=== PATIENT | female | born 1955 | race Caucasian/White ===

== ENCOUNTER 2020-09-06 09:03 | Inpatient (IN) | payer MEDICARE, MEDICAID, SELFPAY ==
[2020-09-06] VITALS (31 sets, daily range): BP systolic 100–151; BP diastolic 62–97; PULSE 80–160; RESP 16–28; TEMP 36.1–37.1; O2SAT 88–98; BMI 38.9
--- NOTE | ~2020-09-06 | XR_ITS ---
EXAMINATION: XR chest 2V EXAM DATE: 09/06/2020 09:40 INDICATION: Shortness of breath. History of Left diaphragm and hypertension. TECHNIQUE: Frontal and lateral projections of the chest obtained and reviewed. There is no prior rahul dy for comparison. FINDINGS: Sternotomy wires are present without findings to suggest sternal dehiscence. Heart is uppe r limits of normal in size. There is mild pulmonary vascular congestion. No confluent consolidation, pneumothorax or pleural effusion suspected. There are mild bony degenerative changes. IMPRESSION: Congestive changes. Reviewed, dictated and finalized at location B. ENPLAY WRITER IMPRESSION: Congestive changes.
--- NOTE | ~2020-09-06 | CT_ITS ---
EXAMINATION: CTA chest DATE: 09/08/2020 12:02 INDICATION: Ascending aortic atherosclerosis. TECHNIQUE: Computed tomographic angiography (CTA) of the chest was performed with 100 mL Omnipaque-35 0 intravenous contrast. Automated exposure control and iterative reconstruction technique were employ ed. The dose-length product was 675.84 mGy-cm. Maximum intensity projection 3D-reconstructions of the aorta and other arteries were constructed by the technologist on a separate workstation. COMPARISON: None. FINDINGS: The lungs demonstrated diffuse smooth septal thickening and groundglass opacities, consiste nt with pulmonary edema. There is a 10 mm nodule in basilar left lower lobe. There is mild emphysema. There is a trace right pleural effusion. There is biatrial enlargement of the heart. There are coron chrissie artery calcifications. No pericardial effusion. There is no pulmonary embolus. There is mild medi astinal and bilateral hilar lymphadenopathy. There are changes of coronary artery bypass grafting. Th e thoracic aorta is normal in caliber. There is mild aortic atherosclerosis. There is a small sliding hiatal hernia. There is trace perihepatic ascites. IMPRESSION: 1. Mild aortic atherosclerosis. No aneurysm or dissection. 2. Moderate pulmonary edema with trace right pleural effusion. 3. 10 mm left lower lobe pulmonary nodule suspicious for primary bronchogenic carcinoma. Further eval uation is recommended with either PET/CT now or noncontrast chest CT in 3 months. 4. Mild mediastinal and bilateral hilar lymphadenopathy. 5. Cardiomegaly. Reviewed, dictated and finalized at location A. N II FARMWORKER IMPRESSION: 1. Mild aortic atherosclerosis. No aneurysm or dissection. 2. Moderate pulmonary edema with trace right pleural effusion. 3. 10 mm left lower lobe pulmonary nodule suspicious for primary bronchogenic c arcinoma. Further evaluation is recommended with either PET/CT now or noncontra st chest CT in 3 months. 4. Mild mediastinal and bilateral hilar lymphadenopathy. 5. Cardiomegaly.
--- NOTE | ~2020-09-06 | US_ITS ---
EXAMINATION: US venous doppler [facility] DATE: 09/07/2020 09:45 INDICATION: Lower limb edema. TECHNIQUE: Grayscale ultrasound images without and with compression and Doppler ultrasound images of the bilateral lower extremity veins were obtained. COMPARISON: None. FINDINGS: The visualized portions of right common femoral vein, profunda (deep) femoral vein, femoral vein, pop liteal vein, peroneal veins, posterior tibial veins, and greater saphenous vein outflow are patent. The visualized portions of left common femoral vein, profunda femoral vein, femoral vein, popliteal v ein, peroneal veins, and posterior tibial veins are patent. There is thrombus in left greater sapheno us vein. IMPRESSION: 1. No deep venous thrombosis. 2. Thrombus in left greater saphenous vein, which is a superficial vein. Reviewed, dictated and finalized at location A. MATIC LEHR OPERATOR
--- NOTE | 2020-09-06 09:16 | ECG_ITS ---
Measurements Intervals [place] Rate: 127 P: SD: 0 QRS: 79 QRSD: 88 T: -60 QT: 291 QTc: 424 Interpretive Statements ATRIAL FIBRILLATION WITH RAPID VENTRICULAR RESPONSE NONSPECIFIC ST & T-WAVE ABNORMALITY- DIFFUSE LEADS BASELINE ARTIFACT- I, II, AVR, V4-V5 ABNORMAL ECG Electronically Signed On 09-06-2020 9:24:58 TECHNICAL AGRONOMIST by Gary Mccann D.O.
[2020-09-06 09:25] LABS: Basophils Absolute Auto 0.1 K/mm3 (0.0-0.1); Basophils Percent Auto 0.7 % (0.2-1.2); Eosinophils Absolute Auto 0.1 K/mm3 (0-0.3); Eosinophils Percent Auto 1.3 % (0-4.4); Hematocrit 45.6 % (37.0-47.0); Hemoglobin 14.3 g/dL (12.0-15.0); Immature Granulocyte Absolute 0.03 K/mm3 (0.00-0.031); Immature Granulocyte Percent A 0.3 % (0-0.5); Lymphocytes Absolute Auto 1.81 K/mm3 (0.9-3.2); Lymphocytes Percent Auto 20.2 % (18.3-44.2); Mean Corpuscular HGB Conc 31.4 g/dl (32-36); Mean Corpuscular Volume 98.9 fl (80-100); Mean Platelet Volume 9.4 fl (7.4-10.4); Monocytes Absolute Auto 0.9 K/mm3 (0.1-0.6); Monocytes Percent Auto 9.7 % (2.6-8.5); Neutrophils Absolute Auto 6.1 K/mm3 (1.3-6.7); Neutrophils Percent Auto 67.8 % (45.5-73.1); Platelet Count Result 234 k/mm3 (150-375); Red Blood Count 4.61 M/mm3 (4.2-5.4); Red Cell Distribution Width 15.2 % (11.5-14.5)
[2020-09-06] MEDS: ASPIRIN 81 MG CHEWABLE TABLET 324 MG PO (09:25)
[2020-09-06 09:35] LABS: INR 1.1; Prothrombin Time 15.2 Seconds (11.1-14.7)
[2020-09-06 09:36] LABS: Partial Thromboplastin Time 26.8 SECONDS (22.3-36.8)
[2020-09-06 09:38] LABS: Anion Gap 7 mmol/L (8-16); Blood Urea Nitrogen 17 mg/dL (7-17); Calcium 8.8 mg/dL (8.4-10.2); Carbon Dioxide 27 mmol/L (22-30); Chloride 103 mmol/L (98-107); Estimated CRCL calculation 109 ml/min; Estimated Glomerular Filt Rate > 60; Glucose 132 mg/dL (65-105); Potassium 4.6 mmol/L (3.4-5.0); Sodium 137 mmol/L (137-145)
[2020-09-06 09:50] LABS: Troponin I < 0.012 ng/mL (0.000-0.034)
[2020-09-06 10:46] LABS: Alanine Aminotransferase 22 U/L (4-35); Albumin Level 4.1 g/dL (3.5-5.1); Alkaline Phosphatase 128 U/L (38-126); Aspartate Amino Transferase 50 U/L (14-36); Bilirubin,Total 1.5 mg/dL (0.2-1.3); Lipase 49 U/L (23-300)
[2020-09-06 10:49] LABS: NT Pro B Type Natriuretic Pept 1670 PG/ML (5-100)
[2020-09-06] MEDS: dilTIAZem HCl INJ 25 MG/5 ML VIAL 10 MG IV PUSH (10:55)
[2020-09-06 11:12] LABS: Add Urine Microscopic? YES; Appearance Urine Clear (Clear); Bacteria Urine Trace /hpf; Bilirubin Urine Negative (Negative); Blood Urine Negative (Negative); Color Urine Yellow (Yellow); Glucose Urine UA 3+ mg/dL (Negative); Ketones Urine Negative (Negative); Leukocyte Esterase Ur Negative LEU/UL (Negative); Mucus Urine Rare /lpf; Nitrate Urine Positive (Negative); Protein Urine Negative (Negative); RBC Urine 0-2 /hpf (0-2); Specific Grav Ur 1.021 (1.001-1.035); Squamous Epithelial Cell Urine Rare /hpf (Few); WBC Urine 0-3 /hpf
[2020-09-06 11:26] LABS: Amphetamine Screen Urine Negative (Negative); Barbiturate Screen Urine Negative (Negative); Benzodiazepines Screen Urine Negative (Negative); Cannabinoid Screen Urine Positive (Negative); Cocaine Screen Urine Negative (Negative); Methadone Screen Urine Negative (Negative); Opiate Screen Urine Negative (Negative); Phencyclidine Screen Urine Negative (Negative)
--- NOTE | 2020-09-06 12:50 | ED.GENADULT ---
HPI - General Adult General Chief complaint: Shortness of Breath/Dyspnea <WILNER Caballero Last Filed: 09/06/20 12:57> Stated complaint: shortness of breath <WILNER Caballero Last Filed: 09/06/20 12:57> Time Seen by Provider: 09/06/20 09:15 <WILNER Caballero Last Filed: 09/06/20 12:57> Source: patient <WILNER Caballero Last Filed: 09/06/20 12:57> Mode of arrival: ambulatory <WILNER Caballero Last Filed: 09/06/20 12:57> Limitations: no limitations <WILNER Caballero Last Filed: 09/06/20 12:57> History of Present Illness HPI narrative: Patient is a 65-year-old female who presents to emergency department for evaluation of shortness of breath with minimal activity that is worsened over the last several weeks quit taking her Lasix patient is a very poor historian as to her medical history notes history of heart surgery hypertension and being on a diuretic as well as diabetes patient has also not been checking her sugars due to not having the device to do so at this time patient denies any pain on arrival patient presented today secondary to worsening dyspnea denies URI symptoms <WILNER Caballero Last Filed: 09/06/20 12:57> Related Data Home medications: Home Medications Medication Instructions Recorded Confirmed levothyroxine [Euthyrox] 09/06/20 losartan 09/06/20 metformin mg 09/06/20 metoprolol tartrate 09/06/20 paroxetine HCl mg PO 09/06/20 simvastatin mg 09/06/20 <WILNER Caballero Last Filed: 09/06/20 12:57> Allergies/adverse reactions: Allergies Allergy/AdvReac Type Severity Reaction Status Date / Time cefazolin Allergy Intermediate wheezing, Verified 09/06/20 09:17 rash <WILNER Caballero Last Filed: 09/06/20 12:57> Review of Systems Review of Systems: All systems reviewed & are unremarkable except as noted in HPI and below <WILNER Caballero Last Filed: 09/06/20 12:57> [facility] Past Medical History Medical History: Medical History (Updated 09/06/20 @ 12:57 by Rob Dimas PA-C) Atrial fibrillation Diabetes mellitus Hypertension Obesity <Rob Dimas PA-C - Last Filed: 09/06/20 12:57> Surgical History Surgical History: Surgical History (Updated 09/06/20 @ 12:54 by Rob Dimas PA-C) H/O heart surgery <Rob Dimas PA-C - Last Filed: 09/06/20 12:57> Social History Social History: Social History (Updated 09/06/20 @ 12:54 by Rob Dimas PA-C) Smoking status: Never smoker Substance use type: marijuana <Rob Dimas PA-C - Last Filed: 09/06/20 12:57> Exam Narrative: Exam Narrative: GENERAL: Ill-appearing, obese, and in no acute distress. HEAD: Normocephalic, atraumatic. EYES: PERRLA and EOMI. ENT: Nares clear, no rhinorrhea or epistaxis. Mucous membranes moist. NECK: Supple. No adenopathy or masses. No carotid bruits or JVD CHEST: Diminished on auscultation. No respiratory distress. No wheezes rales or rhonchi HEART: Irregularly irregular rate and rhythm. No murmur heard. Normal peripheral pulses. ABDOMEN: Soft, nontender, nondistended EXTREMITIES: Normal range of motion. 2+ edema in the lower extremities SKIN: Warm, dry, no rash. Patient with wounds to the arm and mid back consistent with scratching and picking NEURO: No focal deficits. Alert and oriented x3. Cranial nerves II through XII grossly intact PSYCH: Normal mood and affect. <Rob Dimas PA-C - Last Filed: 09/06/20 12:57> Course Course Emergency Course: Patient given Cardizem bolus and placed on the drip with improvement of heart rate will be placed in hospital for diuresis and further evaluation of her A. fib with RVR patient hemodynamically stable ABCs and vital signs intact and stable at this time patient in no pain patient agrees with the plan is aware of case findings treatment plan and diagnosis <Raymon Caballero
[2020-09-06 12:57] LABS: Troponin I < 0.012 ng/mL (0.000-0.034)
[2020-09-06] MEDS: FUROSEMIDE INJ 40 MG/4 ML VIAL 20 MG IV PUSH (13:16)
[2020-09-06 14:25] LABS: Cholesterol 106 mg/dL (0-200); HDL Direct 30 mg/dL; Triglycerides 107 mg/dL (<150)
[2020-09-06 14:36] LABS: LDL Cholesterol Direct 53 mg/dL
--- NOTE | 2020-09-06 15:30 | ADMGEN ---
This patient, Tressa Myers, was admitted to IMU Room 206-. Patient/family oriented to hospital policies and general routines including ID bracelet, bed and alarms, visiting hours, pain management, procedures, bathroom and other care routines, personal items, smoking policy, room service/diet, and visiting hours. Information on how to activate the Rapid Response Team has been discussed. Patient/Family are encouraged to report perceived risks to care and to ask questions if they do not understand what they are told or what they should do.
[2020-09-06 16:15] LABS: Troponin I < 0.012 ng/mL (0.000-0.034)
--- NOTE | 2020-09-06 16:30 | PM.IMHP ---
H&P: HPI History of Present Illness Date/Time: 09/06/20 16:30 Chief Complaint: Shortness of breath. Narrative: This is a 65-year-old female with history of coronary artery disease status post 1 vessel CABG in 2013, hypertension, hyperlipidemia, hypothyroidism, and type 2 diabetes mellitus who presented to the emergency department earlier today via private vehicle from home for evaluation of shortness of breath. She has felt short of breath for several weeks, mainly with exertion however more recently she has felt short of breath ?all of the time.? In fact last night she was unable to lie flat in bed due to shortness of breath and had to get up and sleep in her recliner. She had not noticed edema of the lower legs however that is present on exam today. Additionally she has had some mild dizziness with position changes however has no other significant complaints. On arrival to the emergency department she was found to be in atrial fibrillation with rapid ventricular response and with further questioning she believes that she was in AFib briefly post CABG. Aside from the shortness of breath she has no symptoms of such and specifically denies chest discomfort, racing heart, palpitations, and fluttering. She is concerned that she has sleep apnea as she does not feel well rested upon waking and falls asleep easily throughout the day if she is sitting down watching television. A friend had previously told her that she snores heavily and that at times it appears she stops breathing at night. She is on levothyroxine for hypothyroidism but it does not sound as though she has had her TSH checked for quite some time. She consumes 2 to 3 cups of coffee per day. She has not had exertional chest pain, nausea, or sweats. Review of Systems Review of Systems: Narrative: Twelve systems were reviewed with pertinent positives and negatives as per HPI. No fever, chills, or sweats. No recent cold or flu symptoms. She denies exposure to those positive for COVID-19. No cough. No nausea, vomiting, or diarrhea. No history of venous thromboembolism. She has frequent pruritus and has excoriations throughout her extremities and low back; apparently this is a longstanding issue and is not new. She has no history of eczema or the like. Except as documented, all other systems were reviewed and are negative. [facility] Past Medical History Medical History (Updated 09/06/20 @ 22:19 by Kaia Hodgson PA-C) Carotid artery disease Coronary artery disease Depression with anxiety Diaphragmatic paralysis Left side. Hyperlipidemia Hypertension Hypothyroidism Type 2 diabetes mellitus Surgical History Surgical History (Updated 09/06/20 @ 22:19 by Kaia Hodgson PA-C) History of cardiac catheterization History of coronary artery bypass graft (~02/2014) History of left common carotid artery stent placement History of right-sided carotid endarterectomy Family History Family History (Updated 09/06/20 @ 22:20 by Kaia Hodgson PA-C) Mother Heart disease Mother of an acute NV at age 42. Father Cancer Sibling Brain tumor Social History Social History (Updated 09/06/20 @ 22:20 by Kaia Hodgson PA-C) Social History: The patient lives in [place]. 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 Former smoker. Endorses marijuana use. No alcohol abuse. She designates her son, Cristhian Barreto, as her surrogate decision maker and she wishes to be a full code. Spiritual care concerns: No Meds Home Medications and Allergies Home Medications Medication Instructions Recorded Confirmed Type clopidogrel 75 mg PO DAILY 09/06/20 09/06/20 History empagliflozin [Jardiance] 20 mg PO DAILY 09/06/20 09/06/20 History levothyroxine [Euthyrox] 75 mcg PO DAILY 09/06/20 09/06/20 History losartan 50 mg PO DAILY 09/06/20 09/06/20 History metformin 1,000 mg PO BID 09/06/20 09/06/20 History metoprolol tart
[2020-09-06 17:29] LABS: Hemoglobin A1C 7.2 % (<5.7)
[2020-09-06 21:04] LABS: Glucose Point of Care 143 (65-105)
[2020-09-06] MEDS: METOPROLOL TARTRATE 25 MG TABLET PO (21:11)
[2020-09-06] MEDS: ENOXAPARIN 120 MG/0.8 ML SYRINGE 105 MG SUB-Q (21:12)
[2020-09-07] VITALS (26 sets, daily range): BP systolic 107–135; BP diastolic 68–86; PULSE 62–102; RESP 18–24; TEMP 35.7–36.6; O2SAT 90–98
--- NOTE | 2020-09-07 06:00 | ECHO_ITS ---
Patient Info Name: Tressa Myers Age: 65 years : 1955 Gender: Female Ht: 65 in Wt: 230 lbs BSA: 2.24 m2 HR: 88 bpm BP: 114 / 62 mmHg Heart Rhythm: Atrial Fibrillation Technical Quality: Good Exam Date: 09/07/2020 10:02 AM Exam Location: [facility] Patient Status: Inpatient Admit Date: 09/07/2020 Staff Ordering Physician: Rob Dimas PA-C Oven Baker: Sushant Olvera RDCS, RT Attending Provider: Anupam Abernathy PA-C Referring Physician: Wing BERNAL; Exam Type: CA echo dop color flow w con Study Info Indications I48.0 - Paroxysmal atrial fibrillation Complete two-dimensional, color flow and Doppler transthoracic echocardiogram is performed with contrast to opacify the left ventricle and to improve the deliniation of the left ventricle endocardial borders. Summary 1. Left ventricular systolic function is moderately reduced, estimated at 35%. 2. Left ventricular septal wall motion is abnormal with septal motion related to a post-operative state. 3. Hypokinesis of the apical lateral and mid inferolateral woodward. 4. Right ventricular chamber dimension is moderately enlarged. 5. Right ventricular systolic function is moderately reduced. 6. Left atrial chamber dimension is moderately enlarged. 7. Right atrial chamber dimension is severely enlarged. 8. There is no aortic valve stenosis. 9. There is trace aortic valve regurgitation. 10. There is moderate aortic valve calcification of the commissures between the right and noncoronary cusps with mild calcification between the non and left coronary cusps. Mildly restricted motion of the right cusp. 11. The mitral valve annulus is severely calcified. 12. There is mild tricuspid valve regurgitation. 13. Mild pulmonary hypertension, estimated pulmonary arterial systolic pressure is 39 mmHg. 14. Dilated inferior vena cava with no collapse upon inspiration consistent with significantly elevated right atrial pressure, 15 mmHg. Left Ventricle Left ventricular chamber dimension is normal. Left ventricular systolic function is moderately reduced, estimated at 35%. There is no increased left ventricular wall thickness. Left ventricular septal wall motion is abnormal with septal motion related to a post-operative state. The left ventricular diastolic function is indeterminate. Hypokinesis of the apical lateral and mid inferolateral woodward. Right Ventricle Right ventricular chamber dimension is moderately enlarged. Right ventricular systolic function is moderately reduced. Left Atria Left atrial chamber dimension is moderately enlarged. Right Atria Right atrial chamber dimension is severely enlarged. Aortic Valve The aortic valve is trileaflet. There is no aortic valve stenosis. There is trace aortic valve regurgitation. There is moderate aortic valve calcification of the commissures between the right and noncoronary cusps with mild calcification between the non and left coronary cusps. Mildly restricted motion of the right cusp. Pulmonic Valve The pulmonic valve is not well visualized. There is trace pulmonic regurgitation. Mitral Valve The mitral valve has thickened leaflets. There is mild mitral valve regurgitation. The mitral valve annulus is severely calcified. Tricuspid Valve The tricuspid valve leaflets are normal. There is mild tricuspid valve regurgitation. Mild pulmonary hypertension, estimated pulmonary arterial systolic pressure is 39 mmHg. Pericardium/Pleural The pericardium appears normal.
[2020-09-07] MEDS: LEVOTHYROXINE SODIUM 75 MCG TABLET PO (06:34)
[2020-09-07 07:35] LABS: Alanine Aminotransferase 18 U/L (4-35); Albumin Level 3.6 g/dL (3.5-5.1); Alkaline Phosphatase 101 U/L (38-126); Anion Gap 4 mmol/L (8-16); Aspartate Amino Transferase 34 U/L (14-36); Bilirubin,Total 1.7 mg/dL (0.2-1.3); Blood Urea Nitrogen 16 mg/dL (7-17); Calcium 8.6 mg/dL (8.4-10.2); Carbon Dioxide 32 mmol/L (22-30); Chloride 102 mmol/L (98-107); Estimated CRCL calculation 69 ml/min; Estimated Glomerular Filt Rate > 60; Glucose 141 mg/dL (65-105); Magnesium 1.8 mg/dL (1.6-2.3); Potassium 5.2 mmol/L (3.4-5.0); Sodium 138 mmol/L (137-145)
[2020-09-07 08:30] LABS: Glucose Point of Care 127 (65-105)
--- NOTE | 2020-09-07 08:56 | P.PNIM_ITS ---
Progress Note: A&P Assessment and Plan (1) Atrial fibrillation with rapid ventricular response: Code(s): I48.91 - Unspecified atrial fibrillation Status: Acute Assessment and Plan: The patient has been started on a Cardizem drip for atrial fibrillation with rapid ventricular response. She her heart rate has significantly improved. Apparently she had a history of AFib post CABG many years ago but not since that time. SOB has resolved today, but still requiring 1L O2 * Cardiology consulted and appreciate input * Continue Cardizem drip for now and await further input from Cardiology * Continue home metoprolol; consider increasing dose * Lovenox 1 mg/kg BID for now; will consider fruther a/c (2) Pulmonary vascular congestion: Code(s): R09.89 - Other specified symptoms and signs involving the circulatory and respi ratory systems Status: Acute Assessment and Plan: Evident on CXR. Started on Lasix 20 mg IV BID * Continue Lasix for now * Wean O2 as tolerated * Echo to be done today * Monitor (3) Hypoxia: Code(s): R09.02 - Hypoxemia Status: Acute Assessment and Plan: Likely due to above. She is now on 1L O2 * Wean O2 as tolerated * Monitor * PE felt to be less likely, although Venous Doppler B/l LE to rule out DVT (4) Coronary artery disease: Code(s): I25.10 - Atherosclerotic heart disease of [place] coronary artery without angina pectoris Status: Acute Assessment and Plan: troponin negative x 3. Denies chest pain palpitations * Monitor * continue home meds (5) Diaphragmatic paralysis: Code(s): J98.6 - Disorders of diaphragm Status: Acute (6) Type 2 diabetes mellitus: Code(s): E11.9 - Type 2 diabetes mellitus without complications Status: Acute Assessment and Plan: A1c 7.2 * Metformin held * Continue other home meds if formulary * Accuchecks ACHS, hypoglycemia protocol, correctional insulin, diabetic diet (7) Hyperlipidemia: Code(s): E78.5 - Hyperlipidemia, unspecified Status: Acute Assessment and Plan: Lipid panel grossly unremarkable * continue home meds (8) Hypertension: Code(s): I10 - Essential (primary) hypertension Status: Acute Assessment and Plan: BP 110s sys * Continue home meds * monitor with diuresis (9) Hypothyroidism: Code(s): E03.9 - Hypothyroidism, unspecified Status: Acute Assessment and Plan: TSH WNL * Continue home levothyroxine (10) Suspected sleep apnea: Code(s): R29.818 - Other symptoms and signs involving the nervous system Status: Acute Assessment and Plan: Apnea Link during stay suggestive of sleep apnea * Recommended follow up with PCP for possible outpatient sleep study for further evaluation * CPAP during hospital stay Additional Plan Reviewed telemetry as noted above; continue this given A. fib with RVR Subjective Date/time seen: 09/07/20 08:56 Interval history: Patient is a history of coronary artery disease status post 1 vessel CABG in 2013, hypertension, hyperlipidemia, hypothyroidism, and type 2 diabetes mellitus who is seen in follow up for A. Fib with RVR and acute re
--- NOTE | 2020-09-07 08:56 | PM.IMPN ---
Progress Note: A&P Assessment and Plan (1) Atrial fibrillation with rapid ventricular response: Code(s): I48.91 - Unspecified atrial fibrillation Status: Acute Assessment and Plan: The patient has been started on a Cardizem drip for atrial fibrillation with rapid ventricular response. She her heart rate has significantly improved. Apparently she had a history of AFib post CABG many years ago but not since that time. SOB has resolved today, but still requiring 1L O2 Cardiology consulted and appreciate input Continue Cardizem drip for now and await further input from Cardiology Continue home metoprolol; consider increasing dose Lovenox 1 mg/kg BID for now; will consider fruther a/c (2) Pulmonary vascular congestion: Code(s): R09.89 - Other specified symptoms and signs involving the circulatory and respiratory systems Status: Acute Assessment and Plan: Evident on CXR. Started on Lasix 20 mg IV BID Continue Lasix for now Wean O2 as tolerated Echo to be done today Monitor (3) Hypoxia: Code(s): R09.02 - Hypoxemia Status: Acute Assessment and Plan: Likely due to above. She is now on 1L O2 Wean O2 as tolerated Monitor PE felt to be less likely, although Venous Doppler B/l LE to rule out DVT (4) Coronary artery disease: Code(s): I25.10 - Atherosclerotic heart disease of [place] coronary artery without angina pectoris Status: Acute Assessment and Plan: troponin negative x 3. Denies chest pain palpitations Monitor continue home meds (5) Diaphragmatic paralysis: Code(s): J98.6 - Disorders of diaphragm Status: Acute (6) Type 2 diabetes mellitus: Code(s): E11.9 - Type 2 diabetes mellitus without complications Status: Acute Assessment and Plan: A1c 7.2 Metformin held Continue other home meds if formulary Accuchecks ACHS, hypoglycemia protocol, correctional insulin, diabetic diet (7) Hyperlipidemia: Code(s): E78.5 - Hyperlipidemia, unspecified Status: Acute Assessment and Plan: Lipid panel grossly unremarkable continue home meds (8) Hypertension: Code(s): I10 - Essential (primary) hypertension Status: Acute Assessment and Plan: BP 110s sys Continue home meds monitor with diuresis (9) Hypothyroidism: Code(s): E03.9 - Hypothyroidism, unspecified Status: Acute Assessment and Plan: TSH WNL Continue home levothyroxine (10) Suspected sleep apnea: Code(s): R29.818 - Other symptoms and signs involving the nervous system Status: Acute Assessment and Plan: Apnea Link during stay suggestive of sleep apnea Recommended follow up with PCP for possible outpatient sleep study for further evaluation CPAP during hospital stay Additional Plan Reviewed telemetry as noted above; continue this given A. fib with RVR Subjective Date/time seen: 09/07/20 08:56 Interval history: Patient is a history of coronary artery disease status post 1 vessel CABG in 2013, hypertension, hyperlipidemia, hypothyroidism, and type 2 diabetes mellitus who is seen in follow up for A. Fib with RVR and acute respiratory failure with hypoxia likely due to pulmonary vascular congestion. Patient states she feels 100% better today. She is not short of breath, and in fact, she is lying supine at time of visit and breathing comfortably like this. She notes no change in her LE swelling. She notes she is having good urine output from the Lasix. She has no other complaints. Denies f/c/s, dizziness, lightheadedness, cp/palpitations, n/v/d/c, abd
[2020-09-07] MEDS: FUROSEMIDE INJ 40 MG/4 ML VIAL 20 MG IV PUSH ×2 (10:20→18:32)
[2020-09-07] MEDS: PARoxetine 20 MG TABLET 40 MG PO (10:20)
[2020-09-07] MEDS: CLOPIDOGREL BISULFATE 75 MG TABLET PO (10:21)
[2020-09-07] MEDS: LOSARTAN POTASSIUM 50 MG TABLET PO (10:21)
[2020-09-07] MEDS: SIMVASTATIN 20 MG TABLET 40 MG PO (10:21)
[2020-09-07] MEDS: ENOXAPARIN 120 MG/0.8 ML SYRINGE 105 MG SUB-Q (10:21)
[2020-09-07] MEDS: PERFLUTREN LIPID MICROSPHERES 1.5 ML VIAL DILUTED TO 10 ML TOTAL VOLUME IV PUSH (10:26)
[2020-09-07] MEDS: METOPROLOL TARTRATE 50 MG TAB PO ×2 (11:06→19:50)
[2020-09-07 12:29] LABS: Glucose Point of Care 160 (65-105)
--- NOTE | 2020-09-07 13:38 | PM.CNCAR ---
Assessment and Plan Assessment and plan (1) Atrial fibrillation with rapid ventricular response: Code(s): I48.91 - Unspecified atrial fibrillation Status: Acute Assessment and Plan: Persistent, likely present for several weeks prior to admission. heart rate better controlled on diltiazem. Given LV dysfunction on echocardiogram concern for tachycardia induced cardiomyopathy versus progressive underlying CAD. Serial troponins negative without evidence of acute myocardial infarction or ischemia. discussed embolic stroke risk versus bleeding risk and the need for systemic anticoagulation given CHADS2 Vasc score 7. discussed the pathophysiology of atrial fibrillation including management strategies with medications and/or electrical cardioversion. Given LV dysfunction I would favor rhythm control strategy initially with RANDALL guided cardioversion in attempt restore sinus rhythm. Patient has been given enoxaparin at which transition to Eliquis 5 mg b.i.d.. Care coordination is indicates she does not have medication coverage so will give her 1 month free at discharge and transition to warfarin as an outpatient through our office. Patient is indicated desire to transfer her cardiovascular care to our practice. We discussed the risks, benefits, and alternatives to rhythm versus heart rate control strategy, RANDALL guided cardioversion premedications. All questions answered to her satisfaction. Patient in agreement to proceed with plan of care as outlined above. If patient euvolemic, tolerated procedure well maintain sinus rhythm without additional needs consideration may be given for discharge home tomorrow afternoon. I would recommend then follow up as an outpatient 1 week for EKG and in the office within 2 weeks. NPO after midnight for RANDALL guided cardioversion with Anesthesiology at 8:00 a.m. tomorrow. Patient must receive Eliquis 5 mg this evening and tomorrow morning prior to procedure. (2) Congestive heart failure: Code(s): I50.9 - Heart failure, unspecified Status: Acute Assessment and Plan: Acute decompensated systolic heart failure, EF 35% paradoxical septal wall motion possibly related to tachycardia induced cardiomyopathy versus ischemic. Will need to review prior records. Plan to transition to Toprol XL 50 mg daily tomorrow morning. transition to oral Lasix 40 mg daily prior to discharge. Accurate input and output, daily weights. CHF counseling performed. (3) Cardiomyopathy: Code(s): I42.9 - Cardiomyopathy, unspecified Status: Acute Assessment and Plan: As above, new diagnosis Optimize medical management as tolerated. Continue losartan. Ischemic evaluation in the near future depending on patient's course and response to therapy. Plan for noninvasive, however, will need review prior records with recommendations to follow. (4) Coronary artery disease: Code(s): I25.10 - Atherosclerotic heart disease of [place] coronary artery without angina pectoris Status: Acute Assessment and Plan: serial troponins negative x3. Patient has been maintained on long-term dual antiplatelet therapy but apparently has not followed up on a consistent basis for the past couple of years. Given the high risk for bleeding with dual antiplatelet therapy and systemic anticoagulation will discontinue clopidogrel, continue aspirin 81 mg daily in addition to anticoagulation. We discussed this at length. (5) Hypertension: Code(s): I10 - Essential (primary) hypertension Status: Acute Assessment and Plan: Fair control at this time. Continue to monitor. (6) Type 2 diabetes mellitus: Code(s): E11.9 - Type 2 diabetes mellitus without complications Status: Acute Assessment and Plan: Per primary service. (7) AMOR (obstructive sleep apnea): Code(s): G47.33 - Obstructive sleep apnea (adult) (pediatric) Status: Acute Assessmen
--- NOTE | 2020-09-07 14:19 | WPDANESEPP ---
Anes - Eval Pre Procedure Procedure: RANDALL/cardioversion Date/Time: 09/07/20 14:19 Surgeon: Maya Pre Op Diagnosis: afib rvr/chf/hypoxemia Patient Data Age: 65 Gender: F Height: 1.65 m Weight: 94.8 kg Last Vital Signs Temp 35.8 C L 09/07/20 13:09 Pulse 101 H 09/07/20 13:09 Resp 24 H 09/07/20 13:09 BP 135/86 09/07/20 13:09 Pulse Ox 96 09/07/20 13:09 Allergies Allergy/AdvReac Type Severity Reaction Status Date / Time cefazolin Allergy Intermediate wheezing, Verified 09/06/20 14:25 rash Home Medications Medication Instructions Recorded Confirmed Type clopidogrel 75 mg PO DAILY 09/06/20 09/06/20 History empagliflozin [Jardiance] 20 mg PO DAILY 09/06/20 09/06/20 History levothyroxine [Euthyrox] 75 mcg PO DAILY 09/06/20 09/06/20 History losartan 50 mg PO DAILY 09/06/20 09/06/20 History metformin 1,000 mg PO BID 09/06/20 09/06/20 History metoprolol tartrate 25 mg PO BID 09/06/20 09/06/20 History paroxetine HCl 40 mg PO DAILY 09/06/20 09/06/20 History simvastatin 40 mg PO DAILY 09/06/20 09/06/20 History sitagliptin [Januvia] 100 mg PO DAILY 09/06/20 09/06/20 History Laboratory Tests 09/06/20 09/06/20 09/06/20 12:57 15:45 16:45 Sodium Potassium Chloride Carbon Dioxide Anion Gap BUN Creatinine Estim Creat Clear Calc Estimated GFR Glucose POC Capillary Glucose Hemoglobin A1c Calcium Magnesium Total Bilirubin AST ALT Alkaline Phosphatase Troponin I < 0.012 ng/mL ng/mL (0.000-0.034) Total Protein Albumin Triglycerides 107 mg/dL mg/dL (<150) Cholesterol 106 mg/dL mg/dL (0-200) LDL Cholesterol Direct 53 mg/dL mg/dL HDL Direct 30 mg/dL mg/dL TSH (Reflex) 2.560 uIU/mL uIU/mL (0.465-4.68) 09/06/20 09/06/20 09/07/20 16:45 21:02 06:39 Sodium 138 mmol/L mmol/L (137-145) Potassium 5.2 mmol/L H mmol/L (3.4-5.0) Chloride 102 mmol/L mmol/L (98-107) Carbon Dioxide 32 mmol/L H mmol/L (22-30) Anion Gap 4 mmol/L L mmol/L (8-16) BUN 16 mg/dL mg/dL (7-17) Creatinine 0.80 mg/dL mg/dL (0.7-1.0) Estim Creat Clear Calc 69 ml/min ml/min Estimated GFR > 60 (59 - ) Glucose 141 mg/dL H mg/dL (65-105) POC Capillary Glucose 143 mg/dl H mg/dl (65-105) Hemoglobin A1c 7.2 % H % (<5.7) Calcium 8.6 mg/dL mg/dL (8.4-10.2) Magnesium 1.8 mg/dL mg/dL (1.6-2.3) Total Bilirubin 1.7 mg/dL H mg/dL (0.2-1.3) AST 34 U/L U/L (14-36) ALT 18 U/L U/L (4-35) Alkaline Phosphatase 101 U/L U/L (38-126) Troponin I Total Protein 7.0 g/dL g/dL (6.3-8.2) Albumin 3.6 g/dL g/dL (3.5-5.1) Triglycerides Cholesterol LDL Cholesterol Direct HDL Direct TSH (Reflex) 09/07/20 09/07/20 08:26 12:07 Sodium Potassium Chloride Carbon Dioxide Anion Gap BUN Creatinine Estim Creat Clear Calc Estimated GFR Glucose POC Capillary Glucose 127 mg/dl H mg/dl 160 mg/dl H mg/dl (65-105) (65-105) Hemoglobin A1c Calcium Magnesium Total Bilirubin AST ALT Alkaline Phosphatase Troponin I Total Protein Albumin Triglycerides Cholesterol LDL Cholesterol Direct HDL Direct TSH (Reflex) ECG: afib Patient hx anesthesia problems: none Family hx anesthesia problems: none PMFSH Past Medical History Medical Hi
[2020-09-07 16:57] LABS: Glucose Point of Care 148 (65-105)
[2020-09-07] MEDS: APIXABAN 5 MG TABLET PO (19:50)
[2020-09-07 19:58] LABS: Glucose Point of Care 165 (65-105)
[2020-09-08] VITALS (18 sets, daily range): BP systolic 105–143; BP diastolic 55–95; PULSE 71–113; RESP 16–27; TEMP 35.8–36.4; O2SAT 93–99
[2020-09-08 05:26] LABS: Alanine Aminotransferase 17 U/L (4-35); Albumin Level 3.5 g/dL (3.5-5.1); Alkaline Phosphatase 103 U/L (38-126); Anion Gap 3 mmol/L (8-16); Aspartate Amino Transferase 31 U/L (14-36); Bilirubin,Total 1.6 mg/dL (0.2-1.3); Blood Urea Nitrogen 17 mg/dL (7-17); Calcium 8.5 mg/dL (8.4-10.2); Carbon Dioxide 36 mmol/L (22-30); Chloride 98 mmol/L (98-107); Estimated CRCL calculation 90 ml/min; Estimated Glomerular Filt Rate > 60; Glucose 129 mg/dL (65-105); Magnesium 1.7 mg/dL (1.6-2.3); Potassium 3.7 mmol/L (3.4-5.0); Sodium 137 mmol/L (137-145)
[2020-09-08] MEDS: LEVOTHYROXINE SODIUM 75 MCG TABLET PO (06:53)
[2020-09-08] MEDS: APIXABAN 5 MG TABLET PO ×2 (06:53→20:42)
--- NOTE | 2020-09-08 08:03 | WPDANESEFPP ---
Anes - Eval Final PreProcedure Day of Procedure 09/08/20 08:03 Patient weight: obese Heart: irregular rhythm Lungs: clear to auscultation Airway: Mallampati scale class II Neurological: alert and oriented Last oral intake: >/= 8 hours ASA classification: IV Emergent: no Anesthetic plan: proceed Anesthesia type and monitoring: general and standard monitoring Informed Consent: The patient's anesthetic plan and its attendant risks and benefits were discussed with the patient/family/POA. Questions were solicited and answers provided to the satisfaction of the patient/family/POA.
--- NOTE | 2020-09-08 08:34 | WPDTEECHO ---
RANDALL TransEsophageal Echocardiogram Date of procedure: 09/08/20 Procedure Type: Transesophageal echocardiogram with possible elective electrical cardioversion Diagnosis: Refractory atrial fibrillation with rapid ventricular response Indications: Refractory atrial fibrillation with rapid ventricular response Image Quality: Good Findings: Brief history present illness: Patient is a pleasant 65-year-old white female with history of 1 vessel CABG 2013, hypertension, diabetes mellitus, dyslipidemia, AMOR, reported history of CVA/TIA, history of remote tobacco abuse, marijuana use who presented with progressive shortness of breath found to be in atrial fibrillation with rapid ventricular response and decompensated heart failure with new diagnosis LV systolic dysfunction EF 35% referred for transesophageal echocardiogram-guided elective electrical cardioversion in attempt to restore sinus rhythm. Procedure in detail: After verbal and written informed consent was obtained the patient risks, benefits, and alternatives explained in detail the patient agreed to proceed with the plan of care as outlined above. Patient was evaluated at bedside in the PACU procedure room. On examination, neck was supple with normal range of motion, no restrictions to opening of the oral cavity, jaw angle and posterior hypopharynx was clear. Lungs were clear to auscultation. Patient was placed in appropriate 30 to 45 degree angle in a supine, slight left lateral decubitus position. Patient was monitored throughout the study with telemetry, oxygen saturation, end-tidal CO2 monitoring, blood pressure, heart rate, and respirations. Anterior and posterior defibrillator pads placed in the appropriate positions. The posterior hypopharynx was then locally anesthetized using repeated administration of Hurricaine spray. After local anesthetic of the posterior hypopharynx was achieved and the oral bite block placed, sedation was administered by Anesthesiology.. Through the oral bite block, the transesophageal echocardiogram probe was advanced into the posterior hypopharynx and into the esophagus easily and without complication. Multiple, multiplanar echocardiographic images were obtained in multiple standard re-projections. Pulsed wave, continuous-wave, and color-flow Doppler were utilized in conjunction with this study. At the conclusion of the study, the transesophageal echocardiogram probe was removed easily and without complication. Patient tolerated the procedure well without difficulty. Patient was in atrial fibrillation throughout the study. Moderate Sedation/Anesthesia administration: Patient denied previous intolerance or complications with anesthesia/sedation. Please see anesthesiology documentation for sedation protocols and administration. There were no other issues or complications and patient tolerated the procedure well and sedation protocol well and I was present for the entirety. Findings: Left ventricular size was within normal limits, mild left ventricular hypertrophy and moderate LV dysfunction ejection fraction 35% with paradoxical septal wall motion abnormality. Mild right ventricular enlargement and hypokinesis identified. Moderate to severe left atrial enlargement with moderate spontaneous contrast. Severe right atrial enlargement. Interatrial septum thin and hypermobile with color-flow evidence of a left to right shunt and right to left shunt with injection of agitated saline with bubbles crossing within 3-5 beats consistent with small atrial septal defect. Mild thickening of mitral valve leaflets, moderate mitral annular calcification with [id number] mitral regurgitation identified. Tricuspid valve anatomically normal with normal leaflet excursion with moderate to severe regurgitation identified. No mobile elements identified. Aortic valve was anatomically normal 3 leaflet structure with mild restriction of the right coronary cusp and commissural calcification. Trivial
--- NOTE | 2020-09-08 11:37 | PM.IMPN ---
Progress Note: A&P Assessment and Plan (1) Atrial fibrillation with rapid ventricular response: Code(s): I48.91 - Unspecified atrial fibrillation Status: Acute Assessment and Plan: The patient has been started on a Cardizem drip for atrial fibrillation with rapid ventricular response. She her heart rate has significantly improved. Apparently she had a history of A Fib post CABG many years ago but not since that time. SOB has since resolved, but still requiring 1.5L O2 today (was on 1L prior to RANDALL). RANDALL today, 09/08, demonstrated: Moderate to severe left atrial enlargement with spontaneous contrast. Severe right atrial enlargement. Large loose organized thrombus within the left atrial appendage with low appendage velocities Small atrial septal defect Moderate to severe tricuspid regurgitation with [id number] mitral regurgitation. Elective cardioversion deferred secondary to left atrial appendage thrombus in the interest of patient safety. Large intramural plaque versus thrombus ascending aorta without obvious evidence of dissection. Cardiology following and appreciate input Patient to have CTA chest today to assess ascending aorta intramural plaque vs thrombus Plans for continuing systemic anticoagulation, initially with Eliquis Continue metoprolol per cardiology recommendations Await further recommendations from Cardiology (2) Pulmonary vascular congestion: Code(s): R09.89 - Other specified symptoms and signs involving the circulatory and respiratory systems Status: Acute Assessment and Plan: Evident on CXR. Likely secondary to systolic heart failure with EF 35% on RANDALL. Started on Lasix 20 mg IV BID Continue Lasix for now Wean O2 as tolerated Plans for CTA chest today as detailed above which will also further assess for lung abnormalities Monitor (3) Hypoxia: Code(s): R09.02 - Hypoxemia Status: Acute Assessment and Plan: Likely due to above. She is now on 1.5 L O2 after RANDALL, but nursing planning to wean shortly Wean O2 as tolerated Monitor PE felt to be less likely; CTA chest will further assess as well. See above a/p (4) Coronary artery disease: Code(s): I25.10 - Atherosclerotic heart disease of [place] coronary artery without angina pectoris Status: Acute Assessment and Plan: troponin negative x 3. Denies chest pain palpitations Monitor continue home meds (5) Type 2 diabetes mellitus: Code(s): E11.9 - Type 2 diabetes mellitus without complications Status: Acute Assessment and Plan: A1c 7.2 Metformin held Continue other home meds if formulary Accuchecks ACHS, hypoglycemia protocol, correctional insulin, Heart healthy diet per Cardiology (6) Hyperlipidemia: Code(s): E78.5 - Hyperlipidemia, unspecified Status: Acute Assessment and Plan: Lipid panel grossly unremarkable continue home meds (7) Hypertension: Code(s): I10 - Essential (primary) hypertension Status: Acute Assessment and Plan: BP 140s sys most recently Continue home meds monitor with diuresis (8) Hypothyroidism: Code(s): E03.9 - Hypothyroidism, unspecified Status: Acute Assessment and Plan: TSH WNL Continue home levothyroxine (9) Suspected sleep apnea: Code(s): R29.818 - Other symptoms and signs involving the nervous system Status: Acute Assessment and Plan: Apnea Link during stay suggestive of sleep apnea Recommended follow up with PCP for possible outpatient sleep study for further evaluation CPAP during hospital stay Additional
[2020-09-08] MEDS: METOPROLOL TARTRATE 50 MG TAB PO (14:12)
[2020-09-08] MEDS: LOSARTAN POTASSIUM 50 MG TABLET PO (14:12)
[2020-09-08] MEDS: FUROSEMIDE INJ 40 MG/4 ML VIAL 20 MG IV PUSH (14:12)
[2020-09-08] MEDS: ASPIRIN 81 MG ENTERIC TABLET PO (14:12)
[2020-09-08] MEDS: PARoxetine 20 MG TABLET 40 MG PO (14:13)
[2020-09-08] MEDS: SIMVASTATIN 20 MG TABLET 40 MG PO (14:13)
[2020-09-08 14:17] LABS: Glucose Point of Care 149 (65-105)
--- NOTE | 2020-09-08 16:03 | PM.PNCARD ---
Progress Note: A&P Assessment and Plan (1) Atrial fibrillation with rapid ventricular response: Code(s): I48.91 - Unspecified atrial fibrillation Status: Acute Assessment and Plan: Persistent, likely present for several weeks prior to admission. Due to left atrial appendage thrombus unable to cardiovert at this time. Continue systemic anticoagulate out interruption. Discussed repeat evaluation in least 4 weeks with repeat attempt at RANDALL guided cardioversion. This will need to be performed with Anesthesiology once again. Rate control strategy. Change metoprolol to Toprol XL 100 mg tomorrow morning. Continue Eliquis 5 mg b.i.d.. As patient does not have outpatient drug coverage will need to transition to warfarin within the next month. She will follow-up with this in this regard. Avoid antiarrhythmic therapy given left atrial appendage thrombus. (2) Congestive heart failure: Code(s): I50.9 - Heart failure, unspecified Status: Acute Assessment and Plan: Acute decompensated systolic heart failure, EF 35% paradoxical septal wall motion possibly related to tachycardia induced cardiomyopathy versus ischemic. Will need to review prior records. Increase Lasix due to ongoing need for oxygen supplementation as well as CT evidence of moderate pulmonary vascular congestion. Monitor renal function electrolytes closely. (3) Thrombus of left atrial appendage: Code(s): I51.3 - Intracardiac thrombosis, not elsewhere classified Status: Acute Assessment and Plan: As above Consequence of low cardiac output with spontaneous contrast in left atrium and fairly dense loosely organized thrombus in left atrial appendage with a low appendage velocities. As such, unable to proceed with cardioversion to restore sinus rhythm. Continue anticoagulation without interruption. Discussed increased stroke risk associated with this pathology and the absolute importance of compliance with anticoagulation. (4) Cardiomyopathy: Code(s): I42.9 - Cardiomyopathy, unspecified Status: Acute Assessment and Plan: As above, new diagnosis Optimize medical management as tolerated. Continue losartan. Ischemic evaluation in the near future depending on patient's course and response to therapy. Plan for noninvasive, however, will need review prior records with recommendations to follow. (5) Coronary artery disease: Code(s): I25.10 - Atherosclerotic heart disease of [place] coronary artery without angina pectoris Status: Acute Assessment and Plan: serial troponins negative x3. Patient has been maintained on long-term dual antiplatelet therapy but apparently has not followed up on a consistent basis for the past couple of years. Given the high risk for bleeding with dual antiplatelet therapy and systemic anticoagulation clopidogrel was discontinued. Continue aspirin 81 mg daily in addition to anticoagulation. Monitor for bleeding. (6) Pulmonary nodule: Code(s): R91.1 - Solitary pulmonary nodule Status: Acute Assessment and Plan: Workup as recommended. PET-CT versus repeat CT as outpatient in 3 months. Will defer to primary service for management in this regard. (7) Hypertension: Code(s): I10 - Essential (primary) hypertension Status: Acute Assessment and Plan: Fair control at this time. Continue to monitor. (8) Type 2 diabetes mellitus: Code(s): E11.9 - Type 2 diabetes mellitus without complications Status: Acute Assessment and Plan: Per primary service. (9) AMOR (obstructive sleep apnea): Code(s): G47.33 - Obstructive sleep apnea (adult) (pediatric) Status: Acute Assessment and Plan: Apnea link screening test positive AHI 9.3. CPAP. Formal outpatient sleep study. Subjective Date/time seen: Date of service: 09/08/20 16:03 Follow-up for atrial fibrillation, cardiomyopathy, CHF RANDALL was
[2020-09-08 18:23] LABS: Glucose Point of Care 174 (65-105)
[2020-09-08 20:31] LABS: Glucose Point of Care 227 (65-105)
[2020-09-09] VITALS (18 sets, daily range): BP systolic 100–123; BP diastolic 71–87; PULSE 54–99; RESP 16–20; TEMP 35.5–36.6; O2SAT 83–99
[2020-09-09 05:49] LABS: Anion Gap 2 mmol/L (8-16); Blood Urea Nitrogen 16 mg/dL (7-17); Calcium 8.4 mg/dL (8.4-10.2); Carbon Dioxide 37 mmol/L (22-30); Chloride 98 mmol/L (98-107); Estimated CRCL calculation 95 ml/min; Estimated Glomerular Filt Rate > 60; Glucose 118 mg/dL (65-105); Magnesium 1.7 mg/dL (1.6-2.3); Potassium 3.4 mmol/L (3.4-5.0); Sodium 137 mmol/L (137-145)
[2020-09-09] MEDS: LEVOTHYROXINE SODIUM 75 MCG TABLET PO (06:18)
[2020-09-09 08:34] LABS: Glucose Point of Care 147 (65-105)
[2020-09-09] MEDS: FUROSEMIDE INJ 40 MG/4 ML VIAL IV PUSH ×2 (09:42→18:21)
[2020-09-09] MEDS: PARoxetine 20 MG TABLET 40 MG PO (09:42)
[2020-09-09] MEDS: ASPIRIN 81 MG ENTERIC TABLET PO (09:42)
[2020-09-09] MEDS: SIMVASTATIN 20 MG TABLET 40 MG PO (09:42)
[2020-09-09] MEDS: METOPROLOL SUCCINATE EXT REL 100 MG TABCR PO (09:43)
[2020-09-09] MEDS: APIXABAN 5 MG TABLET PO ×2 (09:43→20:26)
[2020-09-09] MEDS: LOSARTAN POTASSIUM 50 MG TABLET PO (09:43)
--- NOTE | 2020-09-09 10:42 | PM.IMPN ---
Progress Note: A&P Assessment and Plan (1) Atrial fibrillation with rapid ventricular response: Code(s): I48.91 - Unspecified atrial fibrillation Status: Acute Assessment and Plan: The patient has been started on a Cardizem drip for atrial fibrillation with rapid ventricular response. She her heart rate has significantly improved. Apparently she had a history of A Fib post CABG many years ago but not since that time. SOB has since resolved, but still requiring 2L O2 today (was on 1L prior to RANDALL). RANDALL on 09/08 demonstrated: Moderate to severe left atrial enlargement with spontaneous contrast. Severe right atrial enlargement. Large loose organized thrombus within the left atrial appendage with low appendage velocities Small atrial septal defect Moderate to severe tricuspid regurgitation with [id number] mitral regurgitation. Elective cardioversion deferred secondary to left atrial appendage thrombus in the interest of patient safety. Large intramural plaque versus thrombus ascending aorta without obvious evidence of dissection. Cardiology following and appreciate input Plans for continuing systemic anticoagulation, initially with Eliquis Continue metoprolol per cardiology recommendations; transitioned to metoprolol succinate 100 mg daily today Await further recommendations from Cardiology (2) Congestive heart failure: Code(s): I50.9 - Heart failure, unspecified Status: Acute Assessment and Plan: Systolic HF as RANDALL shows EF of 35% with EF 35%. Evidence of moderate pulmonary edema on CTA chest. Increased lasix to 40 mg BID yesterday afternoon Continue Lasix at 40 mg BID IV for now Wean O2 as tolerated Monitor (3) Hypoxia: Code(s): R09.02 - Hypoxemia Status: Acute Assessment and Plan: Likely due systolic CHF. She is now on 2 L O2. Continue treatment for CHF with IV lasix 40 mg BID Wean O2 as tolerated Monitor (4) Cardiomyopathy: Code(s): I42.9 - Cardiomyopathy, unspecified Status: Acute Assessment and Plan: Evident on RANDALL Continue with losartan Further care deferred to Cardiology service (5) Thrombus of left atrial appendage: Code(s): I51.3 - Intracardiac thrombosis, not elsewhere classified Status: Acute Assessment and Plan: Evident on RANDALL on 09/08; unable to perform cardioversion Will defer further care per Cardiology service Patient on Eliquis 5 mg BID with plans to possibly transition to warfarin as outpatient in 1 month due to cost (6) Coronary artery disease: Code(s): I25.10 - Atherosclerotic heart disease of [place] coronary artery without angina pectoris Status: Acute Assessment and Plan: troponin negative x 3. Denies chest pain palpitations Monitor continue home meds (7) Type 2 diabetes mellitus: Code(s): E11.9 - Type 2 diabetes mellitus without complications Status: Acute Assessment and Plan: A1c 7.2 Metformin held Continue other home meds if formulary Accuchecks ACHS, hypoglycemia protocol, correctional insulin, Heart healthy diet per Cardiology (8) Hyperlipidemia: Code(s): E78.5 - Hyperlipidemia, unspecified Status: Acute Assessment and Plan: Lipid panel grossly unremarkable continue home meds (9) Hypertension: Code(s): I10 - Essential (primary) hypertension Status: Acute Assessment and Plan: BP 120s sys most recently Continue home meds monitor with diuresis (10) Hypothyroidism: Code(s): E03.9 - Hypothyroidism, unspecified Status: Acute Assessment and Plan: TSH
--- NOTE | 2020-09-09 10:48 | WPDANESPN ---
Anes - Prog Note Post-Op Date/Time: 09/09/20 10:48 Cardiovascular status: normal Respiratory status: normal Airway patency: baseline Mental status: baseline Post-Op hydration status: normal Vital Signs: Last Vital Signs Temp 35.5 C L 09/09/20 07:32 Pulse 95 09/09/20 09:43 Resp 20 09/09/20 07:32 BP 122/87 09/09/20 07:32 Pulse Ox 96 09/09/20 07:32 Pain Score (VAS): 0/10. Patient up at bedside with PT at time of assessment, appears comfortable. I/O: Intake & Output 09/08/20 09/09/20 09/09/20 23:59 07:59 15:59 Intake Total 480 360 Output Total 1000 Balance -520 360 Laboratory Tests 09/06/20 09:19 09/09/20 04:44 09/08/20 09/08/20 09/08/20 14:14 17:20 20:20 Sodium Potassium Chloride Carbon Dioxide Anion Gap BUN Creatinine Estim Creat Clear Calc Estimated GFR Glucose POC Capillary Glucose 149 H 174 H 227 H Calcium Magnesium 09/09/20 09/09/20 04:44 07:37 Sodium 137 Potassium 3.4 Chloride 98 Carbon Dioxide 37 H Anion Gap 2 L BUN 16 Creatinine 0.60 L Estim Creat Clear Calc 95 Estimated GFR > 60 Glucose 118 H POC Capillary Glucose 147 H Calcium 8.4 Magnesium 1.7 Post-procedural complaints: none Patient Feedback: Patient satisfied with anesthetic care.
[2020-09-09 12:24] LABS: Glucose Point of Care 221 (65-105)
[2020-09-09] MEDS: INSULIN ASPART (*BKC) 100 UNITS/ML SUB-Q (12:49)
--- NOTE | 2020-09-09 15:05 | P.PNCA_ITS ---
Progress Note: A&P Assessment and Plan (1) Atrial fibrillation with rapid ventricular response: Code(s): I48.91 - Unspecified atrial fibrillation Status: Acute Assessment and Plan: Persistent, likely present for several weeks prior to admission. Due to left atrial appendage thrombus unable to cardiovert at this time. Continue systemic anticoagulate out interruption. Discussed repeat evaluation in least 4 weeks with repeat attempt at RANDALL guided cardioversion. This will need to be performed with Anesthesiology once again. Rate control strategy. Toprol XL 100 mg daily started this morning. Continue Eliquis 5 mg b.i.d.. As patient does not have outpatient drug coverage will need to transition to warfarin within the next month. She will follow-up with this in this regard. Avoid antiarrhythmic therapy given left atrial appendage thrombus. (2) Congestive heart failure: Code(s): I50.9 - Heart failure, unspecified Status: Acute Assessment and Plan: Improving. Wean O2. Discharge when on room air Acute decompensated systolic heart failure, EF 35% paradoxical septal wall motion possibly related to tachycardia induced cardiomyopathy versus ischemic. Will need to review prior records. Increase Lasix due to ongoing need for oxygen supplementation as well as CT evidence of moderate pulmonary vascular congestion. Monitor renal function electrolytes closely. Continue losartan, Toprol XL. Transition to oral Lasix 40 mg daily tomorrow as tolerated if weaned off O2. Disposition per hospitalist service. (3) Thrombus of left atrial appendage: Code(s): I51.3 - Intracardiac thrombosis, not elsewhere classified Status: Acute Assessment and Plan: Explain pathophysiology in detail once again. This is a consequence of atrial fibrillation and low cardiac output due to her LV dysfunction resulting in spontaneous contrast within the left atrium and a fairly dense loosely organized thrombus in left atrial appendage. As such, unable to proceed with cardioversion to restore sinus rhythm. Continue anticoagulation without interruption. Discussed increased stroke risk associated with this pathology and the absolute importance of compliance with anticoagulation. (4) Cardiomyopathy: Code(s): I42.9 - Cardiomyopathy, unspecified Status: Acute Assessment and Plan: As above, new diagnosis Optimize medical management as tolerated. Continue losartan. Ischemic evaluation in the near future depending on patient's course and response to therapy. Plan for noninvasive, however, will need review prior r ecords with recommendations to follow. (5) Coronary artery disease: Code(s): I25.10 - Atherosclerotic heart disease of [place] coronary artery without angina pectoris Status: Acute Assessment and Plan: serial troponins negative x3. Patient has been maintained on long-term dual antiplatelet therapy but apparently has not followed up on a consistent basis for the past couple of years. Given the high risk for bleeding with dual antiplatelet therapy and systemic anticoagulation clopidogrel was discontinued. Continue aspirin 81 mg daily in addition to anticoagulation. Monitor for bleeding. (6) Pulmonary nodule: Code(s): R91.1 - Solitary pulmonary nodule Status: Acute Assessment and Plan: Workup as recommended. PET-CT versus repeat CT as outpatient in 3 months. Will defer to primary service for management in this regard. (7) Hypertension: Code(s): I10 - Essential (primary) hypertension Status: Acute Assessment and Plan: Fair control a
[2020-09-09 17:11] LABS: Glucose Point of Care 157 (65-105)
[2020-09-09] MEDS: POTASSIUM CHLORIDE 20 MEQ TABLET PO (18:24)
[2020-09-09 20:58] LABS: Glucose Point of Care 138 (65-105)
--- NOTE | 2020-09-09 21:29 | PC.NURSE ---
This patient, Tressa Myers, was received from [facility] on 09/09/20 at 2040. Patient oriented to unit policies and routines
[2020-09-10] VITALS (10 sets, daily range): BP systolic 103–134; BP diastolic 55–94; PULSE 81–104; RESP 15–20; TEMP 36.1–36.9; O2SAT 90–96
[2020-09-10 05:58] LABS: Anion Gap 1 mmol/L (8-16); Blood Urea Nitrogen 17 mg/dL (7-17); Calcium 8.1 mg/dL (8.4-10.2); Carbon Dioxide 39 mmol/L (22-30); Chloride 97 mmol/L (98-107); Estimated CRCL calculation 82 ml/min; Estimated Glomerular Filt Rate > 60; Glucose 136 mg/dL (65-105); Magnesium 1.6 mg/dL (1.6-2.3); Potassium 3.6 mmol/L (3.4-5.0); Sodium 137 mmol/L (137-145)
[2020-09-10] MEDS: LEVOTHYROXINE SODIUM 75 MCG TABLET PO (06:10)
[2020-09-10] MEDS: APIXABAN 5 MG TABLET PO ×2 (08:14→20:45)
[2020-09-10] MEDS: ASPIRIN 81 MG ENTERIC TABLET PO (08:14)
[2020-09-10] MEDS: FUROSEMIDE INJ 40 MG/4 ML VIAL IV PUSH (08:15)
[2020-09-10] MEDS: SIMVASTATIN 20 MG TABLET 40 MG PO (08:15)
[2020-09-10] MEDS: METOPROLOL SUCCINATE EXT REL 100 MG TABCR PO (08:15)
[2020-09-10] MEDS: PARoxetine 20 MG TABLET 40 MG PO (08:15)
[2020-09-10] MEDS: LOSARTAN POTASSIUM 50 MG TABLET PO (08:15)
[2020-09-10 08:30] LABS: Glucose Point of Care 165 (65-105)
--- NOTE | 2020-09-10 09:09 | PM.PNCARD ---
Progress Note: A&P Additional Plan 65-year-old lady with: Coronary artery disease 6-7 year status post single-vessel CABG. Congestive heart failure with moderate left ventricular systolic dysfunction. Seems to be nearly euvolemic today Atrial fibrillation of unknown chronicity patient does have visible thrombus in the left atrial appendage a precluding the an attempt at cardioverting her at this time. She is now systemically anticoagulated with apixaban. Today I will shift her to oral furosemide and potentially she can be discharged this afternoon if she has weaned down to room air or possibly kept in until tomorrow sometime to ensure that she is oxygenating adequately on room air. We will arrange for follow-up in our office and anticipate an attempt at cardioverting her after about 6 weeks of systemic anticoagulation Naga Calle MD [facility] Subjective Date/time seen: Date of service: 09/10/20 09:09 Interval history: 65-year-old female with: Coronary artery disease status post single-vessel CABG in 2013. History of postop atrial fibrillation now has a recurrence of atrial fibrillation of unknown chronicity. Also found to have moderate left ventricular systolic dysfunction. Gavino showed evidence of left atrial appendage clot precluding an attempt at restoring sinus rhythm at this time. Patient is not systemically anticoagulated. Beta-hever started for rate control Patient feels relatively well this morning is hopeful of being discharged. Still requiring some nasal cannula oxygen Exam Const: General: comfortable and no acute distress HENMT: Mouth: Yes moist mucous membranes Eyes: Sclera: sclerae normal Pupils: Equal, round and reactive pupils present Neck: Neck: supple and no JVD Thyroid: thyroid normal Resp: Effort & Inspection: normal respiratory effort Other: Patient still has some scant basilar crackles Cardio: Rhythm: abnormal rhythm irregularly irregular GI: GI Palp: Yes Soft to palpation Auscultation: normal bowel sounds Neuro: Cognition (Neuro): normal cognition Objective Data Vital Signs Vital Signs: Vital Signs - 24 hr 09/09/20 09:43 09/09/20 10:00 09/09/20 11:21 Temperature 36.3 C L Pulse Rate 95 99 90 Respiratory Rate 18 Blood Pressure 114/71 Pulse Oximetry 98 09/09/20 12:00 09/09/20 14:00 09/09/20 16:00 Temperature 36.6 C Pulse Rate 90 87 84 Respiratory Rate 18 16 Blood Pressure Pulse Oximetry 98 98 09/09/20 18:00 09/09/20 20:00 09/09/20 20:50 Temperature 36.6 C Pulse Rate 93 91 Respiratory Rate 20 Blood Pressure 100/71 Pulse Oximetry 93 83 L 09/09/20 20:55 09/09/20 23:17 09/10/20 00:00 Temperature 36.0 C L Pulse Rate 96 81 Respiratory Rate 16 Blood Pressure 123/84 Pulse Oximetry 96 92 09/10/20 04:00 09/10/20 04:30 09/10/20 08:00 Temperature 36.1 C L 36.2 C L Pulse Rate 87 88 104 H Respiratory Rate 16 16 Blood Pressure 115/55 L 134/94 H Pulse Oximetry 90 96 09/10/20 08:15 Temperature Pulse Rate 104 H Respiratory Rate Blood Pressure Pulse Oximetry Intake/Output Intake/Output: Intake & Output 09/07/20 09/08/20 09/09/20 09/10/20 23:59 23:59 23:59 23:59 Intake Total 1390 1460 1080 350 Output Total 700 1800 500 Balance 690 -340 580 350 Meds/Results Medications: Active Medications Generic Name Dose Route Start Last Admin Trade Name Freq PRN Reason Stop Dose Admin Apixaban 5 mg 09/07/20 21:00 09/10/20 08:14 Apixaban 5 Mg Tablet PO 5 mg Q12HR SARAH Administration Aspirin 81 mg 09/08/20 09:00 09/10/20 08:14 Aspirin 81 Mg Enteric Tablet PO 81 mg QAM SARAH Administration Dextrose 12.5 gm 09/06/20 16:23 Dextrose 50% 25 Gm/50 Ml Syringe IV PUSH PRN PRN Hypoglycemia Protocol Furosemide 40 mg 09/11/20 09:00 Furosemide 40 Mg Tablet PO DAILY SARAH Glucagon 1 mg 09/06/20 16:23 Glucagon For Inj 1 Mg Vial IM PRN PRN Hypoglycemia
[2020-09-10 12:09] LABS: Glucose Point of Care 244 (65-105)
[2020-09-10] MEDS: INSULIN ASPART (*BKC) 100 UNITS/ML SUB-Q ×2 (13:19→17:37)
[2020-09-10 16:39] LABS: Glucose Point of Care 214 (65-105)
--- NOTE | 2020-09-10 16:59 | PM.IMPN ---
Progress Note: A&P Assessment and Plan (1) Atrial fibrillation with rapid ventricular response: Code(s): I48.91 - Unspecified atrial fibrillation Status: Acute Assessment and Plan: The patient has been started on a Cardizem drip for atrial fibrillation with rapid ventricular response. She her heart rate has significantly improved. Apparently she had a history of A Fib post CABG many years ago but not since that time. SOB has since resolved, now on RA since late this morning RANDALL on 09/08 demonstrated: Moderate to severe left atrial enlargement with spontaneous contrast. Severe right atrial enlargement. Large loose organized thrombus within the left atrial appendage with low appendage velocities Small atrial septal defect Moderate to severe tricuspid regurgitation with [id number] mitral regurgitation. Elective cardioversion deferred secondary to left atrial appendage thrombus in the interest of patient safety. Large intramural plaque versus thrombus ascending aorta without obvious evidence of dissection. Cardiology following and appreciate input Plans for continuing systemic anticoagulation, initially with Eliquis Continue metoprolol per cardiology recommendations; transitioned to metoprolol succinate 100 mg daily today Await further recommendations from Cardiology (2) Congestive heart failure: Code(s): I50.9 - Heart failure, unspecified Status: Acute Assessment and Plan: Systolic HF as RANDALL shows EF of 35%. Evidence of moderate pulmonary edema on CTA chest. Patient transitioned to PO Lasix today per Cardiology Continue Lasix at 40 mg PO daily; will continue this at discharge per Cardiology recommendations Monitor (3) Hypoxia: Code(s): R09.02 - Hypoxemia Status: Acute Assessment and Plan: Likely due systolic CHF. She is now on RA since lat this morning Continue treatment for CHF with Lasix 40 mg PO daily Monitor Plan discharge tomorrow morning in tolerating RA overnight (4) Cardiomyopathy: Code(s): I42.9 - Cardiomyopathy, unspecified Status: Acute Assessment and Plan: Evident on RANDALL Continue with losartan Further care deferred to Cardiology service (5) Thrombus of left atrial appendage: Code(s): I51.3 - Intracardiac thrombosis, not elsewhere classified Status: Acute Assessment and Plan: Evident on RANDALL on 09/08; unable to perform cardioversion Will defer further care per Cardiology service Patient on Eliquis 5 mg BID with plans to possibly transition to warfarin as outpatient in 1 month due to cost (6) Coronary artery disease: Code(s): I25.10 - Atherosclerotic heart disease of [place] coronary artery without angina pectoris Status: Acute Assessment and Plan: troponin negative x 3 on arrival Denies chest pain palpitations Monitor continue home meds (7) Type 2 diabetes mellitus: Code(s): E11.9 - Type 2 diabetes mellitus without complications Status: Acute Assessment and Plan: A1c 7.2 Metformin held Continue other home meds if formulary Accuchecks ACHS, hypoglycemia protocol, correctional insulin, Heart healthy diet per Cardiology (8) Hyperlipidemia: Code(s): E78.5 - Hyperlipidemia, unspecified Status: Acute Assessment and Plan: Lipid panel grossly unremarkable continue home meds (9) Hypertension: Code(s): I10 - Essential (primary) hypertension Status: Acute Assessment and Plan: BP 100s sys most recently Continue home meds monitor with diuresis (10) Hypothyroidism: Code(s): E03.9 - Hypothyroidism,
[2020-09-10 21:52] LABS: Glucose Point of Care 147 (65-105)
[2020-09-11] VITALS: BP 112/81; PULSE 80; RESP 16; TEMP 36.4; O2SAT 91
[2020-09-11 04:00] VITALS: PULSE 80
[2020-09-11 05:55] VITALS: BP 128/94; PULSE 78; RESP 16; TEMP 35.7; O2SAT 94
[2020-09-11] MEDS: LEVOTHYROXINE SODIUM 75 MCG TABLET PO (05:55)
[2020-09-11 07:10] LABS: Anion Gap 4 mmol/L (8-16); Blood Urea Nitrogen 19 mg/dL (7-17); Calcium 8.7 mg/dL (8.4-10.2); Carbon Dioxide 39 mmol/L (22-30); Chloride 95 mmol/L (98-107); Estimated CRCL calculation 94 ml/min; Estimated Glomerular Filt Rate > 60; Glucose 142 mg/dL (65-105); Magnesium 1.8 mg/dL (1.6-2.3); Sodium 138 mmol/L (137-145)
[2020-09-11 07:59] LABS: Glucose Point of Care 136 (65-105)
[2020-09-11 08:00] VITALS: BP 106/63; PULSE 85; PULSE 87; RESP 16; TEMP 36.6; O2SAT 94
--- NOTE | 2020-09-11 08:38 | PM.DS ---
DS: Admitting Diagnosis Admitting Diagnosis Admitting Diagnosis: A. fib with RVR, acute respiratory failure with hypoxia, pulmonary vascular congestion DS: Discharge Diagnosis Discharge Diagnosis (1) Atrial fibrillation with rapid ventricular response: Code(s): I48.91 - Unspecified atrial fibrillation Status: Acute Assessment and Plan: On arrival, patient was started on a Cardizem drip for atrial fibrillation with rapid ventricular response. She her heart rate has significantly improved and was transitioned to PO metoprolol on 09/07. Apparently she had a history of A Fib post CABG many years ago but not since that time. SOB has since resolved, now on RA since late this morning RANDALL on 09/08 demonstrated: Moderate to severe left atrial enlargement with spontaneous contrast. Severe right atrial enlargement. Large loose organized thrombus within the left atrial appendage with low appendage velocities Small atrial septal defect Moderate to severe tricuspid regurgitation with [id number] mitral regurgitation. Elective cardioversion deferred secondary to left atrial appendage thrombus in the interest of patient safety. Large intramural plaque versus thrombus ascending aorta without obvious evidence of dissection. Cardiology following and appreciate input Plans for continuing systemic anticoagulation, initially with Eliquis. Will provide 30 day supply. Cardiology to manage a/c after discharge Continue metoprolol per cardiology recommendations; transitioned to metoprolol succinate 100 mg daily D/c home today F/u with Cardiology (2) Congestive heart failure: Code(s): I50.9 - Heart failure, unspecified Status: Acute Assessment and Plan: Systolic HF as RANDALL shows EF of 35%. Evidence of moderate pulmonary edema on CTA chest. Patient transitioned to PO Lasix 09/10 per Cardiology Continue Lasix at 40 mg PO daily at discharge per Cardiology recommendations F/u with Cardiology Daily weights BMP/mag in 1 week (3) Hypoxia: Code(s): R09.02 - Hypoxemia Status: Acute Assessment and Plan: Likely due systolic CHF. She is now on RA since 09/10. Occasionally briefly placed on 1 L, although patient asymptomatic, and nursing reports poor pleth wave readings Continue treatment for CHF with Lasix 40 mg PO daily d/c today (4) Cardiomyopathy: Code(s): I42.9 - Cardiomyopathy, unspecified Status: Acute Assessment and Plan: Evident on RANDALL Continue with losartan per cardiology rec Further care deferred to Cardiology service; f/u with them as outpatient (5) Thrombus of left atrial appendage: Code(s): I51.3 - Intracardiac thrombosis, not elsewhere classified Status: Acute Assessment and Plan: Evident on RANDALL on 09/08; unable to perform cardioversion Will defer further care per Cardiology service Patient on Eliquis 5 mg BID with plans to possibly transition to warfarin as outpatient in 1 month due to cost (6) Coronary artery disease: Code(s): I25.10 - Atherosclerotic heart disease of [place] coronary artery without angina pectoris Status: Acute Assessment and Plan: troponin negative x 3 on arrival Denies chest pain palpitations continue home meds (7) Type 2 diabetes mellitus: Code(s): E11.9 - Type 2 diabetes mellitus without complications Status: Acute Assessment and Plan: A1c 7.2 Metformin held during stay; resume at discharge Accuchecks ACHS, hypoglycemia protocol, correctional insulin, Heart healthy diet per Cardiology during stay (8) Hyperlipidemia: Code(s): E78.5 - Hyperlipidemia, unspecified Status: Acute Assessment and Plan: Lipid panel
[2020-09-11 08:58] VITALS: PULSE 87
[2020-09-11] MEDS: FUROSEMIDE 40 MG TABLET PO (08:58)
[2020-09-11] MEDS: ASPIRIN 81 MG ENTERIC TABLET PO (08:58)
[2020-09-11] MEDS: METOPROLOL SUCCINATE EXT REL 100 MG TABCR PO (08:58)
[2020-09-11] MEDS: APIXABAN 5 MG TABLET PO (08:58)
[2020-09-11] MEDS: LOSARTAN POTASSIUM 50 MG TABLET PO (08:59)
[2020-09-11] MEDS: SIMVASTATIN 20 MG TABLET 40 MG PO (08:59)
[2020-09-11] MEDS: PARoxetine 20 MG TABLET 40 MG PO (08:59)
--- NOTE | 2020-09-11 10:33 | PM.PNCARD ---
Progress Note: A&P Assessment and Plan (1) Atrial fibrillation with rapid ventricular response: Code(s): I48.91 - Unspecified atrial fibrillation Status: Acute Assessment and Plan: Persistent, likely present for several weeks prior to admission. Due to left atrial appendage thrombus unable to cardiovert at this time. Continue systemic anticoagulate out interruption. Discussed repeat evaluation in least 4 weeks with repeat attempt at RANDALL guided cardioversion. This will need to be performed with Anesthesiology once again. Rate control strategy. Toprol XL 100 mg daily started this morning. Continue Eliquis 5 mg b.i.d.. As patient does not have outpatient drug coverage will need to transition to warfarin within the next month. She will follow-up with this in this regard. Avoid antiarrhythmic therapy given left atrial appendage thrombus. (2) Congestive heart failure: Code(s): I50.9 - Heart failure, unspecified Status: Acute Assessment and Plan: Improving. Wean O2. Discharge when on room air Acute decompensated systolic heart failure, EF 35% paradoxical septal wall motion possibly related to tachycardia induced cardiomyopathy versus ischemic. Will need to review prior records. Increase Lasix due to ongoing need for oxygen supplementation as well as CT evidence of moderate pulmonary vascular congestion. Monitor renal function electrolytes closely. Continue losartan, Toprol XL. Continue oral Lasix 40 mg daily tomorrow as tolerated if weaned off O2. Disposition per hospitalist service. (3) Thrombus of left atrial appendage: Code(s): I51.3 - Intracardiac thrombosis, not elsewhere classified Status: Acute Assessment and Plan: Explain pathophysiology in detail once again. This is a consequence of atrial fibrillation and low cardiac output due to her LV dysfunction resulting in spontaneous contrast within the left atrium and a fairly dense loosely organized thrombus in left atrial appendage. As such, unable to proceed with cardioversion to restore sinus rhythm. Continue anticoagulation without interruption. Discussed increased stroke risk associated with this pathology and the absolute importance of compliance with anticoagulation. (4) Cardiomyopathy: Code(s): I42.9 - Cardiomyopathy, unspecified Status: Acute Assessment and Plan: As above, new diagnosis Optimize medical management as tolerated. Continue losartan. Ischemic evaluation in the near future depending on patient's course and response to therapy. Plan for noninvasive, however, will need review prior records with recommendations to follow. (5) Coronary artery disease: Code(s): I25.10 - Atherosclerotic heart disease of [place] coronary artery without angina pectoris Status: Acute Assessment and Plan: serial troponins negative x3. Patient has been maintained on long-term dual antiplatelet therapy but apparently has not followed up on a consistent basis for the past couple of years. Given the high risk for bleeding with dual antiplatelet therapy and systemic anticoagulation clopidogrel was discontinued. Continue aspirin 81 mg daily in addition to anticoagulation. Monitor for bleeding. (6) Pulmonary nodule: Code(s): R91.1 - Solitary pulmonary nodule Status: Acute Assessment and Plan: Workup as recommended. PET-CT versus repeat CT as outpatient in 3 months. Will defer to primary service for management in this regard. (7) Hypertension: Code(s): I10 - Essential (primary) hypertension Status: Acute Assessment and Plan: Fair control at this time. Continue to monitor. (8) Type 2 diabetes mellitus: Code(s): E11.9 - Type 2 diabetes mellitus without complications Status: Acute Assessment and Plan: Per primary service. (9) AMOR (obstructive sleep apnea): Code(s): G47.33 - Obstructive sleep apnea (adult) (pediatric)
== END 2020-09-11 11:45 | disposition home or self-care (01) | DRG 291 ==
LOC: ANHED 12:57 → ANHIMU 13:29 → ANHCPC 09-11 08:47 → ANHIMU 09-15 09:52
PROVIDERS: Emergency Medicine Emergency Medical Services; Internal Medicine Cardiovascular Disease; Physician Assistant; Admitting Provider Internal Medicine; Emergency Provider Emergency Medicine; PCP Internal Medicine; Visit Provider Family Medicine
PROC: B24BZZ4 Ultrasonography of Heart with Aorta, Transesophageal (ICD-10-PCS; CPT 93312; principal; 2020-09-08 08:00)
DX: I11.0 Hypertensive heart disease with heart failure (principal); I50.21 Acute systolic (congestive) heart failure; J96.01 Acute respiratory failure with hypoxia; I48.19 Other persistent atrial fibrillation; I25.10 Atherosclerotic heart disease of native coronary artery without angina pectoris; R91.1 Solitary pulmonary nodule; E11.9 Type 2 diabetes mellitus without complications; E78.5 Hyperlipidemia, unspecified; R09.89 Other specified symptoms and signs involving the circulatory and respiratory systems; E03.9 Hypothyroidism, unspecified; J98.6 Disorders of diaphragm; G47.33 Obstructive sleep apnea (adult) (pediatric); F41.8 Other specified anxiety disorders; I42.9 Cardiomyopathy, unspecified; I51.3 Intracardiac thrombosis, not elsewhere classified; E66.9 Obesity, unspecified; Z68.37 Body mass index [BMI] 37.0-37.9, adult; Z95.1 Presence of aortocoronary bypass graft; Z87.891 Personal history of nicotine dependence
CPT/HCPCS: 36415; 71046; 71275; 80048; 80053; 80061; 80076; 80307; 81001; 83036; 83690; 83735; 83880; 84443; 84484; 85025; 85610; 85730; 93005; 93312; 93320; 93325; 93970; 94660; 94762; 96365; 96366; 96372; 96375; 96376; 99285; A9270; C8929; G0378; J1650; J1815; J1940; J2704; J7040; Q9957; Q9967

== ENCOUNTER → 2020-10-16 06:29 | Outpatient (CLI) | payer MEDICARE, MEDICAID, SELFPAY ==
[2020-10-16 19:10] LABS: SARS-CoV-2 RNA PCR Negative
[2021-03-15 16:35] VITALS: BMI 35.9
== END ==
PROVIDERS: PCP Internal Medicine; Visit Provider Internal Medicine Cardiovascular Disease
DX: Z01.812 Encounter for preprocedural laboratory examination (principal); Z20.822 Contact with and (suspected) exposure to COVID-19
CPT/HCPCS: C9803; U0003; U0005

== ENCOUNTER 2020-10-19 00:19 | Day surgery (SDC) | payer MEDICARE, MEDICAID, SELFPAY ==
--- NOTE | 2020-10-18 09:28 | WPDANESEPPF ---
Anes - Initial Pre Proc Eval Procedure: Operation Date: 10/19/20 13:00 Proposed Procedures p Electrical Cardioversion - Anderson Trejo MD s Trans Esophageal Echo - Anderson Trejo MD Date/Time: 10/18/20 09:28 Surgeon: Anderson Trejo MD Pre Op Diagnosis: a-fib Patient Data Age: 65 Gender: F Height: Weight: Allergies Allergy/AdvReac Type Severity Reaction Status Date / Time cefazolin Allergy Intermediate wheezing, Verified 09/06/20 14:25 rash Home Medications Medication Instructions Recorded Confirmed Type Januvia 100 mg PO DAILY 09/06/20 09/06/20 History Jardiance 20 mg PO DAILY 09/06/20 09/06/20 History levothyroxine [Euthyrox] 75 mcg PO DAILY 09/06/20 09/06/20 History losartan 50 mg PO DAILY 09/06/20 09/06/20 History metformin 1,000 mg PO BID 09/06/20 09/06/20 History paroxetine HCl 40 mg PO DAILY 09/06/20 09/06/20 History simvastatin 40 mg PO DAILY 09/06/20 09/06/20 History apixaban [Eliquis] 5 mg PO Q12HR 30 Days #60 tablet 09/11/20 Rx aspirin 81 mg PO QAM #30 tablet 09/11/20 Rx furosemide 40 mg PO DAILY #30 tablet 09/11/20 Rx metoprolol succinate [Toprol XL] 100 mg PO QAM #30 tablet 09/11/20 Rx PMFSH Past Medical History Medical History Carotid artery disease Coronary artery disease Depression with anxiety Diaphragmatic paralysis Left side. Hyperlipidemia Hypertension Hypothyroidism Type 2 diabetes mellitus Surgical History Surgical History History of cardiac catheterization History of coronary artery bypass graft (~02/2014) History of left common carotid artery stent placement History of right-sided carotid endarterectomy Family History Family History Mother Heart disease Mother of an acute CO at age 42. Father Cancer Sibling Brain tumor Social History Social History (Updated 09/08/20 @ 13:56 by Anupam Abernathy PA-C) Social History: The patient lives in [place]. 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 Former smoker. Endorses marijuana use. No alcohol abuse. She designates her son, Cristhian Barreto, as her surrogate decision maker and she wishes to be a full code. Smoking status: Former smoker Substance use type: marijuana Spiritual care concerns: No Anes - Eval Final PreProcedure Day of Procedure 10/18/20 09:28 Patient weight: obese Heart: regular rate and rhythm Lungs: clear to auscultation and normal air movement Airway: Mallampati scale class II Neurological: alert and oriented Last oral intake: >/= 8 hours ASA classification: IV Emergent: no Anesthetic plan: proceed Anesthesia type and monitoring: general GIVS and standard monitoring Informed Consent: The patient's anesthetic plan and its attendant risks and benefits were discussed with the patient/family/POA. Questions were solicited and answers provided to the satisfaction of the patient/family/POA.
[2020-10-18 16:15] VITALS: BMI 36.6
[2020-10-19] VITALS (9 sets, daily range): BP systolic 96–124; BP diastolic 57–88; PULSE 78–92; RESP 15–20; TEMP 36.5–36.6; O2SAT 93–96
--- NOTE | 2020-10-19 11:30 | ECG_ITS ---
Measurements Intervals [place] Rate: 90 P: SC: 0 QRS: 64 QRSD: 101 T: 258 QT: 357 QTc: 439 Interpretive Statements ATRIAL FIBRILLATION BORDERLINE ST-T WAVE ABNORMALITY- DIFFUSE LEADS ABNORMAL ECG Electronically Signed On 10-19-2020 12:17:05 RN IMMUNOLOGY by Gary Mccann D.O.
[2020-10-19 12:28] LABS: INR 1.2; Prothrombin Time 15.6 Seconds (11.1-14.7)
[2020-10-19 12:53] LABS: Anion Gap 9 mmol/L (8-16); Blood Urea Nitrogen 30 mg/dL (7-17); Calcium 9.4 mg/dL (8.4-10.2); Carbon Dioxide 28 mmol/L (22-30); Chloride 102 mmol/L (98-107); Estimated CRCL calculation 71 ml/min; Estimated Glomerular Filt Rate > 60; Glucose 125 mg/dL (65-105); Potassium 4.2 mmol/L (3.4-5.0); Sodium 139 mmol/L (137-145)
--- NOTE | 2020-10-19 12:53 | WPDANESEPP ---
Anes - Eval Pre Procedure Procedure: Operation Date: 10/19/20 13:00 Proposed Procedures p Electrical Cardioversion - Anderson Trejo MD s Trans Esophageal Echo - Anderson Trejo MD Date/Time: 10/19/20 12:53 Pre Op Diagnosis: a-fib Patient Data Age: 65 Gender: F Height: 1.65 m Weight: 100 kg Last Vital Signs Temp 36.5 C 10/19/20 12:21 Pulse 90 10/19/20 12:21 Resp 18 10/19/20 12:21 BP 102/69 10/19/20 12:21 Pulse Ox 96 10/19/20 12:21 Allergies Allergy/AdvReac Type Severity Reaction Status Date / Time cefazolin Allergy Intermediate wheezing, Verified 10/18/20 16:21 rash lisinopril Allergy Cough Verified 10/18/20 16:25 Home Medications Medication Instructions Recorded Confirmed Type Januvia 100 mg PO DAILY 09/06/20 10/18/20 History Jardiance 20 mg PO DAILY 09/06/20 10/18/20 History levothyroxine [Euthyrox] 75 mcg PO DAILY 09/06/20 10/18/20 History losartan 50 mg PO DAILY 09/06/20 10/18/20 History metformin 1,000 mg PO BID 09/06/20 10/18/20 History paroxetine HCl 40 mg PO DAILY 09/06/20 10/18/20 History simvastatin 40 mg PO DAILY 09/06/20 10/18/20 History apixaban [Eliquis] 5 mg PO Q12HR 30 Days #60 tablet 09/11/20 10/18/20 Rx aspirin 81 mg PO QAM #30 tablet 09/11/20 10/18/20 Rx furosemide 40 mg PO DAILY #30 tablet 09/11/20 10/18/20 Rx metoprolol succinate [Toprol XL] 100 mg PO QAM #30 tablet 09/11/20 10/18/20 Rx ascorbic acid (vitamin C) 500 mg PO DAILY 10/18/20 10/18/20 History [Ascorbic Acid with Beba Hips] Laboratory Tests 10/19/20 10/19/20 12:09 12:09 PT 15.6 Seconds H Seconds (11.1-14.7) INR 1.2 Sodium 139 mmol/L mmol/L (137-145) Potassium 4.2 mmol/L mmol/L (3.4-5.0) Chloride 102 mmol/L mmol/L (98-107) Carbon Dioxide 28 mmol/L mmol/L (22-30) Anion Gap 9 mmol/L mmol/L (8-16) BUN 30 mg/dL H D mg/dL (7-17) Creatinine 0.80 mg/dL mg/dL (0.7-1.0) Estim Creat Clear Calc 71 ml/min ml/min Estimated GFR > 60 (59 - ) Glucose 125 mg/dL H mg/dL (65-105) Calcium 9.4 mg/dL mg/dL (8.4-10.2) Magnesium 2.0 mg/dL mg/dL (1.6-2.3) Patient hx anesthesia problems: none Family hx anesthesia problems: none [facility] Past Medical History Medical History Carotid artery disease Coronary artery disease Depression with anxiety Diaphragmatic paralysis Left side. Hyperlipidemia Hypertension Hypothyroidism Type 2 diabetes mellitus Surgical History Surgical History History of cardiac catheterization History of coronary artery bypass graft (~02/2014) History of left common carotid artery stent placement History of right-sided carotid endarterectomy Family History Family History Mother Heart disease Mother of an acute [place] at age 42. Father Cancer Sibling Brain tumor Social History Social History (Updated 09/08/20 @ 13:56 by Anupam Abernathy PA-C) Social History: The patient lives in [place]. Her daughter owns a tea room in [place] and she works with her on occasion. Former smoker. Endorses marijuana use. No alcohol abuse. She designates her son, Cristhian Barreto, as her surrogate decision maker and she wishes to be a full code. Smoking status: Former smoker Tobacco type: cigarettes Smoking end date: 07/27/20 Alcohol intake: never Substance use: current Substance use type: marijuana Last use: yesterday Living arrangements: alone Gender identity (if verbalized by the patient): Female Spiritual care concerns: No Exam Day of Procedure 10/19/20 12:53 Patient weight: obese Other findings: 102 pk/yr smoker. quit smoking cigarettes 2 years ago, daily marijuana smok
--- NOTE | 2020-10-19 12:57 | WPDHPUPDATE1 ---
History and Physical Update Update Date/Time: 10/19/20 12:57 History and Physical has been reviewed, including an updated exam of the patient. There are NO changes in the patient's condition. Risks, benefits, and alternatives have been discussed and questions answered. Patient agrees to proceed with procedure.
--- NOTE | 2020-10-19 12:57 | WPDTECDV ---
RANDALL with Cardioversion Date of procedure: 10/19/20 Procedure Type: Transesophageal echocardiogram guided elective electrical cardioversion Diagnosis: Atrial fibrillation Indications: Atrial fibrillation Description of Procedure: Brief history present illness: Patient is a [id number] female with a past medical history significant for 1 vessel CABG 2013, hypertension, diabetes mellitus, dyslipidemia, AMOR, history of CVA, TIA, history tobacco abuse diagnosed with new onset atrial fibrillation with rapid ventricular response and decompensated heart failure with EF 35% August 2020. RANDALL guided cardioversion was attempted, however, given presence of loosely organized left atrial appendage is thrombus cardioversion was deferred. Patient is now brought back in attempt to restore sinus rhythm and to assess resolution of left atrial appendage thrombus. Procedure in detail: After verbal and written informed consent was obtained the patient risks, benefits, and alternatives explained in detail the patient agreed to proceed with the plan of care as outlined above. Patient was evaluated at bedside in the PACU. On examination, neck was supple with normal range of motion, no restrictions to opening of the oral cavity, jaw angle and posterior hypopharynx was clear. Lungs were clear to auscultation. Patient was placed in appropriate 30 to 45 degree angle in a supine, slight left lateral decubitus position. Patient was monitored throughout the study with telemetry, oxygen saturation, end-tidal CO2 monitoring, blood pressure, heart rate, and respirations. Anterior and posterior defibrillator pads placed in the appropriate positions. The posterior hypopharynx was then locally anesthetized using repeated administration of Hurricaine spray. After local anesthetic of the posterior hypopharynx was achieved and the oral bite block placed, the transesophageal echocardiogram probe was advanced into the posterior hypopharynx and into the esophagus easily and without complication. Multiple, multiplanar echocardiographic images were obtained in multiple standard re-projections. Pulsed wave, continuous-wave, and color-flow Doppler were utilized in conjunction with this study. At the conclusion of the study, the transesophageal echocardiogram probe was removed easily and without complication. Patient tolerated the procedure well without difficulty. Patient was in atrial fibrillation throughout the study. Sedation: Sedation/Anesthesia administration: Please see Anesthesiology documentation for details and protocol a sedation administration. There were no other issues or complications and patient tolerated the procedure well and sedation protocol well and I was present for the entirety. Findings: Findings: Left ventricular size was within normal limits, mild left ventricular hypertrophy and moderate to severe LV dysfunction ejection fraction 30% with paradoxical septal wall motion abnormality. Mild right ventricular enlargement and moderate hypokinesis identified. Moderate to severe left atrial enlargement with dense spontaneous contrast Throughout the left atrium and surrounding the left atrial appendage. Severe right atrial enlargement. Interatrial septum thin and hypermobile with color-flow evidence of a left to right shunt and right to left shunt consistent with ASD. Mild thickening of mitral valve leaflets, moderate mitral annular calcification with [id number] mitral regurgitation identified. Tricuspid valve anatomically normal with normal leaflet excursion with moderate to severe regurgitation identified. No mobile elements identified. Aortic valve was anatomically normal 3 leaflet structure with mild restriction of the right coronary cusp and commissural calcification. Trivial regurgitation of the aortic valve identified. Pulmonic valve was not well visualized, however, trivial regurgitation was identified. Left atrial appendage was an anatomically angie
--- NOTE | 2020-10-19 13:16 | WPDANESEFPP ---
Anes - Eval Final PreProcedure Day of Procedure 10/19/20 13:16 Patient weight: obese Heart: irregular rhythm Lungs: decreased breath sounds Airway: Mallampati scale class II Neurological: alert and oriented Last oral intake: >/= 8 hours ASA classification: IV Emergent: no Anesthetic plan: proceed Anesthesia type and monitoring: general GIVS and standard monitoring Informed Consent: The patient's anesthetic plan and its attendant risks and benefits were discussed with the patient/family/POA. Questions were solicited and answers provided to the satisfaction of the patient/family/POA.
--- NOTE | 2020-10-19 13:39 | SUR.OPER ---
See anesthesia documentation for medication administration and intra-procedure vital signs. Cardioversion not completed per MD Trejo.
--- NOTE | 2020-10-19 15:55 | SUR.PHASEII ---
HAS DRANK WELL AND AMBULATED TO BATHROOM TO VOID. STEADY GAIT. DENIES DIZZINESS. SWALLOWED WITHOUT DIFFICULTY OR PAIN. DRESSED FOR DISCHARGE HOME. REVIEWED ALL DISCHARGE INSTRUCTIONS W/ PT. QUESTIONS ANSWERED. VOICED UNDERSTANDING OF ALL. DISCHARGED HOME, OUT VIA WC WITH ALL PERSONAL BELONGINGS AND DISCHARGE INSTRUCTIONS TO DAUGHTER'S WAITING CAR. VOICES NO C/O. NO DISTRESS NOTED.
== END 2020-10-19 15:55 | disposition home or self-care (01) ==
PROVIDERS: PCP Internal Medicine; Visit Provider Internal Medicine Cardiovascular Disease
PROC: (CPT 93312; 2020-10-19 13:00)
DX: I48.91 Unspecified atrial fibrillation (principal); I51.3 Intracardiac thrombosis, not elsewhere classified; Q21.1 Atrial septal defect; I36.1 Nonrheumatic tricuspid (valve) insufficiency; I34.0 Nonrheumatic mitral (valve) insufficiency; I25.10 Atherosclerotic heart disease of native coronary artery without angina pectoris; F41.8 Other specified anxiety disorders; I10 Essential (primary) hypertension; E78.5 Hyperlipidemia, unspecified; E11.9 Type 2 diabetes mellitus without complications; E03.9 Hypothyroidism, unspecified; Z79.84 Long term (current) use of oral hypoglycemic drugs; Z79.01 Long term (current) use of anticoagulants; Z79.82 Long term (current) use of aspirin; Z87.891 Personal history of nicotine dependence; F12.90 Cannabis use, unspecified, uncomplicated
CPT/HCPCS: 36415; 80048; 83735; 85610; 93005; 93312; 93320; 93325; J7030

== ENCOUNTER 2020-11-14 08:54 | Emergency (ER) | payer MEDICARE, MEDICAID, SELFPAY ==
--- NOTE | ~2020-11-14 | XR_ITS ---
EXAMINATION: XR knee RT min 4V DATE: 11/14/2020 09:47 INDICATION: Twisting right knee injury one week prior. TECHNIQUE: Anteroposterior, 2 oblique and crosstable lateral views of the right knee were obtained COMPARISON: None. FINDINGS: Alignment is normal. No fracture. There are tiny marginal osteophytes in all 3 compartments consiste nt with at least mild osteoarthritis. The joint spaces appear relatively preserved although joint spa ce narrowing can be underestimated on nonweightbearing imaging. Small right knee joint effusion witho ut layering lipohemarthrosis. Small likely loose osteochondral body at a posterior superior recess of the knee. There are a few varicosities in the lateral subcutaneous tissues. IMPRESSION: 1. Small right knee joint effusion. No acute osseous abnormality. Reviewed, dictated and finalized at location A.
--- NOTE | 2020-11-14 09:15 | PC.NURSE ---
HAVE ATTEMPTED TO CALL PT PHONE X 3 AND GOES DIRECTLY TO [facility]ICE MAIL. LEFT MESSAGE TO CALL WHEN SHE IS READY TO COME IN TO BE SEEN.
[2020-11-14 09:27] VITALS: BP 118/68; PULSE 82; RESP 20; TEMP 36.4; O2SAT 97
--- NOTE | 2020-11-14 09:28 | ED.LOWEXIN ---
HPI - Extremity Injury (Lower) General Chief Complaint: Extremity Injury, Lower Stated Complaint: Swollen Knee Time Seen by Provider: 11/14/20 09:28 Source: patient and RN notes reviewed History of Present Illness HPI Narrative: Patient is a 65-year-old female who presents the urgent care with complaints of right knee pain. Patient states that it started 1 week ago after walking up a hill and possibly twisting the knee . Patient states at that time she was having some discomfort in the low back as well. Patient states that she has had ongoing issues with chronic pains. Patient states that she took Tylenol without much relief. States that she has been ambulating but it seems to be getting more painful . Patient does not take any pain medication on a daily basis for pain relief. Currently denies of any swelling or redness. Patient states that she has recently started Coumadin and her INR has been therapeutic and she has been following up with her PCP as directed. Patient states that prior to then she was on Eliquis after a cardiac stent. No other acute complaints. Patient denies any known fall or trauma to the right knee. No acute distress noted. Patient aware of the plan of care. Some parts of this dictation were generated by voice recognition software and may contain typographical and/or grammatical inaccuracies. Related Data Home Medications Medication Instructions Recorded Confirmed Januvia 100 mg PO DAILY 09/06/20 11/14/20 Jardiance 10 mg PO BID 09/06/20 11/14/20 losartan 50 mg PO DAILY 09/06/20 11/14/20 metformin 1,000 mg PO BID 09/06/20 11/14/20 paroxetine HCl 20 mg PO BID 09/06/20 11/14/20 simvastatin 40 mg PO DAILY 09/06/20 11/14/20 ascorbic acid (vitamin C) 500 mg PO DAILY 10/18/20 11/14/20 levothyroxine 75 mcg PO DAILY 11/14/20 11/14/20 warfarin 4 mg PO DAILY 11/14/20 11/14/20 Allergies Allergy/AdvReac Type Severity Reaction Status Date / Time cefazolin Allergy Intermediate wheezing, Verified 11/14/20 09:21 rash lisinopril AdvReac Mild Cough Verified 11/14/20 09:21 Review of Systems Review of Systems: Narrative: CONSTITUTIONAL: Denies fever, chills, or sweats. EYES: Denies visual changes, redness, or discharge. ENT: Denies rhinorrhea, congestion, sore throat, or otalgia. CARDIOVASCULAR: Denies chest pain, palpitations, or edema. RESPIRATORY: Denies cough or dyspnea. GASTROINTESTINAL: Denies abdominal pain, nausea, vomiting, or diarrhea. GENITOURINARY: Denies dysuria or hematuria. SKIN: Denies rash or itching. MUSCULOSKELETAL: Reports of right knee pain NEUROLOGIC: Denies headache, numbness, or weakness. All other systems reviewed are negative, except as documented in HPI. [facility] Past Medical History Medical History Carotid artery disease Coronary artery disease Depression with anxiety Diaphragmatic paralysis Left side. Hyperlipidemia Hypertension Hypothyroidism Type 2 diabetes mellitus Surgical History Surgical History History of cardiac catheterization History of coronary artery bypass graft (~02/2014) History of left common carotid artery stent placement History of right-sided carotid endarterectomy Family History Family History Mother Heart disease Mother of an acute [place] at age 42. Father Cancer Sibling Brain tumor Social History Social History Social History: The patient lives in [place]. Her daughter owns a tea room in [place] and she works with her on occasion. Former smoker. Endorses marijuana use. No alcohol abuse. She designates her son, Cristhian Barreto, as her surrogate decision maker and she wishes to be a full code. Smoking status: Former smoker Tobacco type: cigarettes Smoking end date: 07/27/20 Alcohol intake: never Substance use: cur
== END 2020-11-14 10:26 | disposition home or self-care (01) ==
PROVIDERS: Emergency Provider Nurse Practitioner Family; PCP Internal Medicine
DX: M25.561 Pain in right knee (principal); Z87.891 Personal history of nicotine dependence; I25.10 Atherosclerotic heart disease of native coronary artery without angina pectoris; F41.9 Anxiety disorder, unspecified; F32.9 Major depressive disorder, single episode, unspecified; E78.5 Hyperlipidemia, unspecified; I10 Essential (primary) hypertension; E11.9 Type 2 diabetes mellitus without complications; Z95.1 Presence of aortocoronary bypass graft
CPT/HCPCS: 73564; 99213; G0463

== ENCOUNTER 2020-11-26 11:35 | Observation (INO) | payer MEDICARE, MEDICAID, SELFPAY ==
[2020-11-26] VITALS (7 sets, daily range): BP systolic 92–117; BP diastolic 54–74; PULSE 54–102; RESP 16–20; TEMP 36.1–36.4; O2SAT 93–100; BMI 36.4
--- NOTE | ~2020-11-26 | XR_ITS ---
XR chest 1V portable 11/26/2020 14:24 Indication: Hypertension. COPD. Chest pain. Procedure: AP portable chest Comparison: 09/06/2020 Findings: Status post median sternotomy for CABG. Mild cardiomegaly with interstitial edema. Small le ft pleural effusion. No pneumothorax. No acute osseous abnormality. Impression: 1: Cardiomegaly with mild interstitial edema. 2: Small pleural effusion. Reviewed, dictated and finalized at location B. Impression: 1: Cardiomegaly with mild interstitial edema. 2: Small pleural effusion.
[2020-11-26 13:45] LABS: Basophils Absolute Auto 0.1 K/mm3 (0.0-0.1); Basophils Percent Auto 0.9 % (0.2-1.2); Eosinophils Absolute Auto 0.4 K/mm3 (0-0.3); Eosinophils Percent Auto 4.7 % (0-4.4); Hematocrit 38.7 % (37.0-47.0); Hemoglobin 12.7 g/dL (12.0-15.0); Immature Granulocyte Absolute 0.02 K/mm3 (0.00-0.031); Immature Granulocyte Percent A 0.2 % (0-0.5); Lymphocytes Absolute Auto 2.38 K/mm3 (0.9-3.2); Lymphocytes Percent Auto 27.7 % (18.3-44.2); Mean Corpuscular HGB Conc 32.8 g/dl (32-36); Mean Corpuscular Hemoglobin 31.6 pg (26-34); Mean Corpuscular Volume 96.3 fl (80-100); Mean Platelet Volume 8.8 fl (7.4-10.4); Monocytes Percent Auto 11.3 % (2.6-8.5); Neutrophils Absolute Auto 4.7 K/mm3 (1.3-6.7); Neutrophils Percent Auto 55.2 % (45.5-73.1); Platelet Count Result 286 k/mm3 (150-375); Red Blood Count 4.02 M/mm3 (4.2-5.4); Red Cell Distribution Width 15.1 % (11.5-14.5); White Blood Count 8.6 K/mm3 (4.5-10.0)
[2020-11-26 13:56] LABS: Prothrombin Time 66.4 Seconds (11.1-14.7)
[2020-11-26 13:58] LABS: Anion Gap 3 mmol/L (8-16); Blood Urea Nitrogen 27 mg/dL (7-17); Calcium 8.9 mg/dL (8.4-10.2); Carbon Dioxide 31 mmol/L (22-30); Chloride 104 mmol/L (98-107); Estimated CRCL calculation 70 ml/min; Estimated Glomerular Filt Rate > 60; Glucose 121 mg/dL (65-105); Potassium 4.4 mmol/L (3.4-5.0); Sodium 138 mmol/L (137-145)
--- NOTE | 2020-11-26 14:09 | ED.GENADULT ---
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 patient was recently placed on the warfarin after being found to have a thrombus in her heart patient on arrival notes that she has developed a subconjunctival hemorrhage on the right eye as well as hematoma and bruising just above the right knee with no injury patient denies rectal bleeding or melena or any chest pain or shortness of breath or any falls or trauma patient notes she has been compliant with her medications and is taking 4 mg/day Related Data Home Medications Medication Instructions Recorded Confirmed Januvia 100 mg PO DAILY 09/06/20 11/14/20 Jardiance 10 mg PO BID 09/06/20 11/14/20 losartan 50 mg PO DAILY 09/06/20 11/14/20 metformin 1,000 mg PO BID 09/06/20 11/14/20 paroxetine HCl 20 mg PO BID 09/06/20 11/14/20 simvastatin 40 mg PO DAILY 09/06/20 11/14/20 ascorbic acid (vitamin C) 500 mg PO DAILY 10/18/20 11/14/20 levothyroxine 75 mcg PO DAILY 11/14/20 11/14/20 warfarin 4 mg PO DAILY 11/14/20 11/14/20 Allergies Allergy/AdvReac Type Severity Reaction Status Date / Time cefazolin Allergy Intermediate wheezing, Verified 11/14/20 09:21 rash lisinopril AdvReac Mild Cough Verified 11/14/20 09:21 Review of Systems Review of Systems: All systems reviewed & are unremarkable except as noted in HPI and below PMFSH Past Medical History Medical History Carotid artery disease Coronary artery disease Depression with anxiety Diaphragmatic paralysis Left side. Hyperlipidemia Hypertension Hypothyroidism Type 2 diabetes mellitus Surgical History Surgical History History of cardiac catheterization History of coronary artery bypass graft (~02/2014) History of left common carotid artery stent placement History of right-sided carotid endarterectomy Family History Family History Mother Heart disease Mother of an acute [place] at age 42. Father Cancer Sibling Brain tumor Social History Social History Social History: The patient lives in [place]. Her daughter owns a tea room in [place] and she works with her on occasion. Former smoker. Endorses marijuana use. No alcohol abuse. She designates her son, Cristhian Barreto, as her surrogate decision maker and she wishes to be a full code. Smoking status: Former smoker Tobacco type: cigarettes Smoking end date: 07/27/20 Alcohol intake: never Substance use: current Substance use type: marijuana Last use: yesterday Gender identity (if verbalized by the patient): Female Spiritual care concerns: No Exam Narrative: Exam Narrative: GENERAL: Well-appearing, well-nourished, and in no acute distress. HEAD: Normocephalic, atraumatic. EYES: PERRLA and EOMI. right eye with subconjunctival hemorrhage ENT: Nares clear, no rhinorrhea or epistaxis. Mucous membranes moist. NECK: Supple. No adenopathy or masses. No carotid bruits or JVD CHEST: Clear to auscultation. No respiratory distress. No wheezes rales or rhonchi HEART: Irregularly irregular rate and rhythm. No murmur heard. Normal peripheral pulses. ABDOMEN: Soft, nontender, nondistended EXTREMITIES: Normal range of motion. No edema. Large hematoma just above the right knee SKIN: Warm, dry, no rash. NEURO: No focal deficits. Alert and oriented x3. PSYCH: Normal mood and affect. Course Course Emergency Course: Patient will be brought into the hospital was given or
--- NOTE | 2020-11-26 14:11 | ECG_ITS ---
Measurements Intervals [place] Rate: 95 P: DC: 0 QRS: 64 QRSD: 89 T: -30 QT: 358 QTc: 452 Interpretive Statements ATRIAL FIBRILLATION NONSPECIFIC ST & T-WAVE ABNORMALITY- ANTEROLAT/INF LEADS BASELINE ARTIFACT- I, III, AVR, AVL, AVF ABNORMAL ECG Electronically Signed On 11-26-2020 16:39:57 CDT by Gary Mccann D.O.
[2020-11-26] MEDS: SODIUM CHLORIDE 0.9% IV 1,000 ML 999 ML IV CONT (14:25)
[2020-11-26 14:40] LABS: Add Urine Microscopic? YES; Appearance Urine Clear (Clear); Bacteria Urine Trace /hpf; Bilirubin Urine Negative (Negative); Color Urine Yellow (Yellow); Glucose Urine UA 3+ mg/dL (Negative); Ketones Urine Negative (Negative); Leukocyte Esterase Ur Negative LEU/UL (Negative); Mucus Urine Rare /lpf; Nitrate Urine Positive (Negative); Protein Urine Negative (Negative); RBC Urine 0-2 /hpf (0-2); Specific Grav Ur 1.027 (1.001-1.035); Squamous Epithelial Cell Urine Rare /hpf (Few)
[2020-11-26 14:44] LABS: Blood Urine Negative (Negative)
--- NOTE | 2020-11-26 15:30 | PM.IMHP ---
H&P: HPI History of Present Illness Date/Time: 11/26/20 15:30 Chief Complaint: Elevated INR. Narrative: This is a pleasant 65-year-old female with systolic congestive heart failure, atrial fibrillation, persistent left atrial appendage thrombus noted on RANDALL on 10/19/2020 on warfarin, coronary artery disease status post 1 vessel CABG, carotid artery disease status post carotid endarterectomy, hypertension, dyslipidemia, type 2 diabetes mellitus, hypothyroidism, and probable underlying sleep apnea who presented to the emergency department earlier today from Dr. Anderson's office for further treatment and evaluation of an elevated INR. The patient is known to myself as I admitted her to the hospital on 09/06/2020 with rapid atrial fibrillation at which time an echocardiogram showed evidence of a reduced systolic function. She was unable to be cardioverted as a RANDALL showed evidence of the left atrial appendage thrombus and she was started on Eliquis. Unfortunately the thrombus was still present on RANDALL on 10/19/2020 and she was switched to warfarin at that time. For the 1st week or so her INR was reportedly in a therapeutic range however there was some miscommunication she did not have a repeat INR done within the last couple of weeks as instructed. More recently she has noticed subconjunctival hemorrhage in the right eye as well as bruising above her right knee. She goes on to say that when she was walking up a hill recently she thought she twisted her leg in assumes that she pulled a muscle which caused the bleeding. She has had an expanding bruise around the right knee since that time. In any event she had an INR done today which was reportedly 8.1 and she was sent to the emergency department. She denies epistaxis, gingival bleeding, hematemesis, melena, hematuria, hematochezia, and vaginal bleeding. Review of Systems Review of Systems: Narrative: Twelve systems were reviewed with pertinent positives and negatives as per HPI. No fever, chills, or sweats. She denies recent cold and flu symptoms. She denies paresthesias, skin color, and temperature changes in the right lower extremity. She has not had any falls. No pain with extraocular motions. No headache. She denies chest pain and pleuritic pain. No shortness of breath or cough. She is supposed to have a sleep study as an outpatient sometime for suspected sleep apnea. Except as documented, all other systems were reviewed and are negative. [facility] Past Medical History Medical History (Updated 11/26/20 @ 21:41 by Kaia Hodgson PA-C) Atrial fibrillation Carotid artery disease Coronary artery disease Depression with anxiety Diaphragmatic paralysis Left side. Hyperlipidemia Hypertension Hypothyroidism Systolic congestive heart failure Echo on 09/08/2020 showed moderate left ventricular systolic dysfunction with an EF of 35%. At that time a thrombus was also noted in left atrial appendage and a small AST was also noted. Thrombus of left atrial appendage (~09/08/20) Still present on RANDALL dated 10/19/2020, patient switch from Eliquis to warfarin. Type 2 diabetes mellitus Hemoglobin A1c was 7.2% in August 2020. Surgical History Surgical History History of cardiac catheterization History of coronary artery bypass graft (~02/2014) History of left common carotid artery stent placement History of right-sided carotid endarterectomy Family History Family History Mother Heart disease Mother of an acute [place] at age 42. Father Cancer Sibling Brain tumor Social History Social History Social History: The patient lives in [place]. Her daughter owns a tea room in [place] and she works with her on occasion. Former smoker. Endorses marijuana use. No alcohol abuse. She designates her son, Cristhian Sewell
[2020-11-26] MEDS: PHYTONADIONE 2.5 MG TAB PO (15:37)
--- NOTE | 2020-11-26 18:14 | ADMGEN ---
This patient, Tressa Myers, was admitted to Medical Room 254-01. Patient/family oriented to hospital policies and general routines including ID bracelet, bed and alarms, visiting hours, pain management, procedures, bathroom and other care routines, personal items, smoking policy, room service/diet, and visiting hours. Information on how to activate the Rapid Response Team has been discussed. Patient/Family are encouraged to report perceived risks to care and to ask questions if they do not understand what they are told or what they should do.
[2020-11-26] MEDS: LACTATED RINGERS 1,000 ML 75 ML IV CONT (18:21)
[2020-11-26] MEDS: FAMOTIDINE 20 MG/2 ML VIAL IV PUSH (20:23)
[2020-11-26 22:05] LABS: Hematocrit 38.1 % (37.0-47.0); Hemoglobin 12.4 g/dL (12.0-15.0)
[2020-11-26 22:12] LABS: Prothrombin Time 57.9 Seconds (11.1-14.7)
[2020-11-26 22:13] LABS: Partial Thromboplastin Time 89.8 SECONDS (22.3-36.8)
[2020-11-26 22:14] LABS: INR 6.7
[2020-11-27] MEDS: LEVOTHYROXINE SODIUM 75 MCG TABLET PO (05:15)
[2020-11-27 06:00] VITALS: BP 128/59; PULSE 95; RESP 18; TEMP 35.9; O2SAT 92
[2020-11-27 06:10] LABS: Basophils Absolute Auto 0.1 K/mm3 (0.0-0.1); Eosinophils Absolute Auto 0.4 K/mm3 (0-0.3); Hematocrit 38.3 % (37.0-47.0); Hemoglobin 12.4 g/dL (12.0-15.0); Immature Granulocyte Absolute 0.03 K/mm3 (0.00-0.031); Immature Granulocyte Percent A 0.5 % (0-0.5); Lymphocytes Absolute Auto 1.88 K/mm3 (0.9-3.2); Lymphocytes Percent Auto 30.4 % (18.3-44.2); Mean Corpuscular HGB Conc 32.4 g/dl (32-36); Mean Corpuscular Hemoglobin 31.5 pg (26-34); Mean Corpuscular Volume 97.2 fl (80-100); Mean Platelet Volume 9.2 fl (7.4-10.4); Monocytes Absolute Auto 0.6 K/mm3 (0.1-0.6); Monocytes Percent Auto 9.7 % (2.6-8.5); Neutrophils Absolute Auto 3.3 K/mm3 (1.3-6.7); Neutrophils Percent Auto 52.4 % (45.5-73.1); Platelet Count Result 254 k/mm3 (150-375); Red Blood Count 3.94 M/mm3 (4.2-5.4); Red Cell Distribution Width 15.3 % (11.5-14.5); White Blood Count 6.2 K/mm3 (4.5-10.0)
[2020-11-27 06:13] LABS: INR 4.3; Prothrombin Time 41.8 Seconds (11.1-14.7)
[2020-11-27 06:14] LABS: Partial Thromboplastin Time 69.2 SECONDS (22.3-36.8)
[2020-11-27 06:25] LABS: Magnesium 1.9 mg/dL (1.6-2.3)
[2020-11-27] MEDS: FAMOTIDINE 20 MG/2 ML VIAL IV PUSH (09:26)
[2020-11-27] MEDS: metFORMIN HCL 500 MG TABLET 1000 MG PO (09:26)
[2020-11-27] MEDS: PARoxetine 20 MG TABLET PO (09:26)
[2020-11-27] MEDS: SIMVASTATIN 20 MG TABLET 40 MG PO (09:26)
[2020-11-27] MEDS: LOSARTAN POTASSIUM 50 MG TABLET PO (09:26)
[2020-11-27 09:30] VITALS: O2SAT 92
[2020-11-27 11:40] LABS: Glucose Point of Care 127 (65-105)
--- NOTE | 2020-11-27 12:41 | PM.CNCAR ---
Assessment and Plan Additional Plan 65-year-old lady with: Ischemic heart disease 1 vessel bypass operation in the remote past now with persistent atrial fibrillation for at least the last month or 2. The patient has been managed by Dr. Trejo and recently was transition from apixaban to warfarin apparently because the apixaban did not resolve her visible thrombus in the left atrial appendage. On 4 mg of warfarin her INR has become supratherapeutic and she has done the bleeding that is described above. She fortunately has not bled significantly as her hemoglobin is stable and now that her INR is half of what it was yesterday I believe she can be safely discharged. I told her that my recommendation would be to take no Coumadin today or tomorrow and on Sunday resume 3 mg daily. Following this our office can follow her INR and adjust from there. Obviously 4 mg was a supratherapeutic does Naga Calle MD [facility] History of Present Illness History of Present Illness Consult date/time: 11/27/20 12:41 Reason For Visit: Supratherapeutic INR, UTI, dehydration Narrative: This is a 65-year-old patient known to Dr. porter of our practice who has a history of coronary artery disease ischemic LV dysfunction and atrial fibrillation. The patient has a recent recurrence of atrial fibrillation of unknown chronicity and has been anticoagulated initially with apixaban and now with warfarin who was admitted to the hospital yesterday after someone in our office who became aware of a supratherapeutic INR directed her for admission. The patient has a history of previous 1 vessel bypass operation and admission to the hospital recently with some decompensated heart failure for which she was diuresed and brought into a state of euvolemic compensation. An attempt was consider to restore sinus rhythm during the hospitalization but RANDALL showed evidence of visible thrombus in the left atrial appendage. She was brought into the hospital as an outpatient following anticoagulation for about 6 weeks and a surprisingly there was still visible thrombus in the appendage of the left atrium and so I believe for that reason she was shifted from apixaban to warfarin. She was started on 4 mg of warfarin daily her INR apparently was in the desired range and this was felt to be a reasonable dosage. Unfortunately yesterday's INR was checked and it was over 8 and she had done subconjnctival bleeding as well as twisted her knee and has a hematoma in the region of her right knee. She was given 2.5 mg of oral vitamin K yesterday her INR today is 4.3 and she is otherwise asymptomatic and hoping to be discharged. Review of Systems Constitutional: Constitutional: Reports no additional constitutional complaints Eyes: Eyes: Reports no additional eye complaints ENT: Reports system reviewed and no additional complaints, except as documented Cardiovascular: Cardiovascular: Reports as per HPI Respiratory: Respiratory: Reports no additional respiratory complaints Gastrointestinal: Gastrointestinal: Reports no additional gastrointestinal complaints Genitourinary: Genitourinary: Reports no additional female genitourinary complaints Musculoskeletal: Musculoskeletal: Reports as per HPI Comments: Right knee hematoma Integumentary/Breasts: Skin/Breast: Reports system reviewed and no additional complaints, except as docu Neurologic: Reports system reviewed and no additional complaints, except as documented Endocrine: Endocrine: Reports no additional endocrine complaints Hematologic/Lymphatic: Hematologic/Lymphatic: Reports no additional hematologic/lymphatic complaints [facility] Past Medical History Medical History (Updated 11/26/20 @ 21:41 by Kaia Hodgson PA-C) Atrial fibrillation Carotid artery disease Coronary artery disease Depression with anxiety Diaphragmatic paralysis Left side. Hyperlipidemia Hypertension Hypothyroidism Systolic congestive heart failure Echo on
--- NOTE | 2020-11-27 13:14 | PM.DS ---
DS: Admitting Diagnosis Admitting Diagnosis Admitting Diagnosis: Supratherapeutic INR DS: Discharge Diagnosis Discharge Diagnosis (1) Supratherapeutic INR: Code(s): R79.1 - Abnormal coagulation profile Status: Acute Assessment and Plan: Patient was switched to warfarin from Eliquis at the end of September due to persistent thrombus in the left atrial appendage. She has since developed a right subconjunctival hemorrhage as well as bruising/hematoma above the right knee. PT and INR today in the emergency department were 66.4 and 8.0 respectively; INR is now down to 4.3 this morning after she was given vitamin K p.o. 2.5 milligrams x 1 in the ER. She has no other symptoms of bleeding and her H&H is stable. Dr. Calle (Cardiology) was consulted and appreciate recommendations. Agree with Cardiology rec of holding warfarin today and tomorrow then resuming at 3 mg daily Will repeat INR on 12/[address] Trejo/ANNIE. Elevated leg with her hematoma; she also has an appointment with orthopedics in about 2 weeks, as well. F/u with Cardiology and PCP once established with new PCP (2) Thrombus of left atrial appendage: Onset Date: ~09/08/20 Code(s): I51.3 - Intracardiac thrombosis, not elsewhere classified Status: Acute Assessment and Plan: Plan is as detailed above. (3) Atrial fibrillation: Code(s): I48.91 - Unspecified atrial fibrillation Status: Acute Assessment and Plan: AFib is rate controlled. Unable to be cardioverted in September secondary to persistence of left atrial thrombus. (4) Systolic congestive heart failure: Code(s): I50.20 - Unspecified systolic (congestive) heart failure Status: Inactive Assessment and Plan: She appears clinically compensated (5) Type 2 diabetes mellitus: Code(s): E11.9 - Type 2 diabetes mellitus without complications Status: Acute Assessment and Plan: Continue Januvia and metformin. Sliding scale insulin, Accu-Cheks, and hypoglycemic protocol during stay (6) Suspected sleep apnea: Code(s): R29.818 - Other symptoms and signs involving the nervous system Status: Acute Assessment and Plan: Positive apnea link as an inpatient in August. She needs formal outpatient sleep study. (7) Hypothyroidism: Code(s): E03.9 - Hypothyroidism, unspecified Status: Acute Assessment and Plan: TSH was normal in August 2020 Continue levothyroxine. TSH was normal in August 2020. (8) Hypertension: Code(s): I10 - Essential (primary) hypertension Status: Acute Assessment and Plan: BP well controlled at 120s sys most recently Continue home medication (9) Hematoma of right lower extremity: Code(s): S80.11XA - Contusion of right lower leg, initial encounter Status: Acute Assessment and Plan: Patient encouraged to elevate the affected extremity. She thinks there has been improvement since admission. No evidence of compartment syndrome. F/u with Ortho (10) ASB (asymptomatic bacteriuria): Code(s): R82.71 - Bacteriuria Status: Acute Assessment and Plan: UA revealed trace bacteria, 7-9 WBC, rare squam epith, positive nitrates, negative leuk est. Patient asymptomatic. UCx grew E. Coli; pansensitive given patient was asymptomatic, patient was not treated with antibiotics per IDSA guidelines. DS: Summary Hospital Course Reason for hospitalization: Supratherapeutic INR Hospital Course: Date of arrival: 11/26/
== END 2020-11-27 14:45 | disposition home or self-care (01) ==
LOC: ANHED 15:21 → ANH2MED 17:45
PROVIDERS: Emergency Medicine Emergency Medical Services; Physician Assistant; Admitting Provider Internal Medicine; Emergency Provider Emergency Medicine; PCP Internal Medicine; Visit Provider Physician Assistant
DX: R79.1 Abnormal coagulation profile (principal); I51.3 Intracardiac thrombosis, not elsewhere classified; S80.11XA Contusion of right lower leg, initial encounter; I48.91 Unspecified atrial fibrillation; I11.0 Hypertensive heart disease with heart failure; I50.20 Unspecified systolic (congestive) heart failure; E11.9 Type 2 diabetes mellitus without complications; E03.9 Hypothyroidism, unspecified; R82.71 Bacteriuria; Z79.01 Long term (current) use of anticoagulants; Z79.4 Long term (current) use of insulin
CPT/HCPCS: 36415; 71045; 80048; 81001; 83735; 85014; 85018; 85025; 85610; 85730; 87077; 87086; 87088; 87186; 93005; 96361; 96365; 96366; 96375; 96376; 99285; A9270; G0378; J0131; J7030; J7120

== ENCOUNTER 2021-01-18 10:16 | Outpatient (RCR) | payer MEDICARE, MEDICAID, SELFPAY ==
[2020-10-28 16:27] LABS: INR 2.8; Prothrombin Time 30.1 Seconds (11.1-14.7)
[2020-11-26 08:55] LABS: Prothrombin Time 66.9 Seconds (11.1-14.7)
[2020-11-26 09:26] LABS: INR 8.1
[2020-12-01 08:31] LABS: INR 1.4; Prothrombin Time 17.3 Seconds (11.1-14.7)
[2020-12-06 13:15] LABS: INR 2.1; Prothrombin Time 24.5 Seconds (11.1-14.7)
[2020-12-13 08:03] LABS: INR 2.7; Prothrombin Time 29.6 Seconds (11.1-14.7)
[2020-12-27 08:40] LABS: INR 2.5; Prothrombin Time 27.9 Seconds (11.1-14.7)
[2021-01-18 10:44] LABS: INR 2.1; Prothrombin Time 24.5 Seconds (11.1-14.7)
== END 2021-01-26 23:59 | disposition home or self-care (01) ==
LOC: ANHLAB 10:16
PROVIDERS: PCP Family Medicine; Referring Provider Internal Medicine Cardiovascular Disease; Visit Provider Nurse Practitioner Adult Health
DX: Z51.81 Encounter for therapeutic drug level monitoring (principal); I48.92 Unspecified atrial flutter; Z79.01 Long term (current) use of anticoagulants
CPT/HCPCS: 36415; 85610

== ENCOUNTER → 2021-03-16 02:12 | Day surgery (SDC) | payer MEDICARE, SELFPAY ==
--- NOTE | 2021-03-16 08:53 | ECG_ITS ---
Measurements Intervals [place] Rate: 63 P: 21 W[place]: 174 QRS: -9 QRSD: 103 T: 41 QT: 403 QTc: 415 Interpretive Statements SINUS RHYTHM BORDERLINE ST-T WAVE ABNORMALITY- ANTEROLAT/HIGH LAT LEADS BORDERLINE ECG Electronically Signed On 03-16-2021 9:03:15 CDT by Gary Mccann D.O.
--- NOTE | 2021-03-16 09:06 | WPDHPUPDATE1 ---
History and Physical Update Update Date/Time: 03/16/21 09:06 History and Physical has been reviewed, including an updated exam of the patient. There are NO changes in the patient's condition. Risks, benefits, and alternatives have been discussed and questions answered. Patient agrees to proceed with procedure. Procedure canceled as patient was in sinus rhythm by EKG upon arrival.
--- NOTE | 2021-03-16 09:39 | SUR.PREOP ---
12 lead EKG completed on arrival. Pt noted to be in NSR. Dr Trejo aware - spoke with the patient and evaluated. Pt sent home - no further assessment needed.
== END ==
PROVIDERS: PCP Family Medicine; Visit Provider Internal Medicine Cardiovascular Disease
PROC: (CPT 93312; principal; 2021-03-16 10:00)
PROC: 5A2204Z Restoration of Cardiac Rhythm, Single (ICD-10-PCS; 2021-03-16 10:00)
DX: I48.91 Unspecified atrial fibrillation (principal); Z53.8 Procedure and treatment not carried out for other reasons
CPT/HCPCS: 93005; 99211; G0463

== ENCOUNTER 2021-05-10 15:41 | Outpatient (RCR) | payer MEDICARE, SELFPAY ==
[2021-02-17 08:08] LABS: Prothrombin Time 31.3 Seconds (11.1-14.7)
[2021-03-03 08:23] LABS: INR 2.1; Prothrombin Time 22.9 Seconds (11.1-14.7)
[2021-03-31 08:05] LABS: INR 2.4; Prothrombin Time 25.7 Seconds (11.1-14.7)
[2021-05-10 16:23] LABS: INR 1.9; Prothrombin Time 21.4 Seconds (11.1-14.7)
== END 2021-05-18 23:59 | disposition home or self-care (01) ==
LOC: ANHLAB 15:41
PROVIDERS: PCP Family Medicine; Visit Provider Nurse Practitioner Adult Health
DX: Z51.81 Encounter for therapeutic drug level monitoring (principal); I48.92 Unspecified atrial flutter; Z79.01 Long term (current) use of anticoagulants
CPT/HCPCS: 36415; 85610

== ENCOUNTER 2021-08-03 07:08 | Outpatient (RCR) | payer MEDICARE, SELFPAY ==
[2021-06-02 08:11] LABS: INR 2.1
[2021-07-01 15:01] LABS: INR 2.4; Prothrombin Time 25.2 Seconds (11.1-14.7)
[2021-08-03 08:10] LABS: INR 2.3; Prothrombin Time 24.4 Seconds (11.1-14.7)
== END 2021-08-31 23:59 | disposition home or self-care (01) ==
LOC: ANHLAB 07:08
PROVIDERS: PCP Family Medicine; Visit Provider Nurse Practitioner Adult Health
DX: Z51.81 Encounter for therapeutic drug level monitoring (principal); I48.92 Unspecified atrial flutter; Z79.01 Long term (current) use of anticoagulants
CPT/HCPCS: 36415; 85610

== ENCOUNTER 2021-11-28 16:00 | Outpatient (RCR) | payer MEDICARE, SELFPAY ==
[2021-09-15 16:09] LABS: Prothrombin Time 22.6 Seconds (11.1-14.7)
[2021-10-27 12:00] LABS: INR 1.8; Prothrombin Time 20.6 Seconds (11.1-14.7)
[2021-11-28 17:00] LABS: Prothrombin Time 22.1 Seconds (11.1-14.7)
== END 2021-12-14 23:59 | disposition home or self-care (01) ==
LOC: ANHLAB 16:00
PROVIDERS: PCP Family Medicine
DX: Z51.81 Encounter for therapeutic drug level monitoring (principal); I48.92 Unspecified atrial flutter; Z79.01 Long term (current) use of anticoagulants
CPT/HCPCS: 36415; 85610

== ENCOUNTER 2021-12-14 00:52 | Day surgery (SDC) | payer MEDICARE, SELFPAY ==
--- NOTE | 2021-12-14 09:17 | WPDANESEPPF ---
Anes - Initial Pre Proc Eval Procedure: Operation Date: 12/14/21 14:00 Proposed Procedures p Trans Esophageal Echo - Anderson Trejo MD s Electrical Cardioversion - Anderson Trejo MD Date/Time: 12/14/21 09:17 Surgeon: Anderson Trejo MD Pre Op Diagnosis: A flutter Patient Data Age: 66 Gender: F Height: Weight: Allergies Allergy/AdvReac Type Severity Reaction Status Date / Time cefazolin Allergy Intermediate wheezing, Verified 12/14/21 12:47 rash lisinopril AdvReac Mild Cough Verified 12/14/21 12:47 Home Medications Medication Instructions Recorded Confirmed Type Januvia 100 mg PO DAILY 09/06/20 12/14/21 History Jardiance 10 mg PO BID 09/06/20 12/14/21 History losartan 50 mg PO DAILY 09/06/20 12/14/21 History metformin 1,000 mg PO BID 09/06/20 12/14/21 History paroxetine HCl 20 mg PO BID 09/06/20 12/14/21 History simvastatin 40 mg PO DAILY 09/06/20 12/14/21 History aspirin 81 mg PO QAM #30 tablet 09/11/20 12/14/21 Rx ascorbic acid (vitamin C) 500 mg PO DAILY 10/18/20 12/14/21 History levothyroxine 75 mcg PO DAILY 11/14/20 12/14/21 History warfarin 3 mg PO QPM #30 tablet 11/27/20 12/14/21 Rx cholecalciferol (vitamin D3) 1 tablet PO DAILY 12/13/21 12/14/21 History diltiazem HCl [Cardizem CD] 120 mg PO DAILY 12/13/21 12/13/21 History furosemide [Lasix] 40 mg PO DAILY 12/13/21 12/14/21 History metoprolol succinate [Toprol XL] 100 mg PO DAILY 12/13/21 12/13/21 History tramadol [Ultram] 50 mg PO DAILY 12/13/21 12/14/21 History Patient hx anesthesia problems: none Family hx anesthesia problems: none Results Review: All pre-operative results and documents have been reviewed as part of the pre-operative evaluation. [facility] Past Medical History Medical History (Updated 11/28/20 @ 17:14 by Anupam Abernathy PA-C) Atrial fibrillation Carotid artery disease Coronary artery disease Depression with anxiety Diaphragmatic paralysis Left side. Hyperlipidemia Hypertension Hypothyroidism Systolic congestive heart failure Echo on 09/08/2020 showed moderate left ventricular systolic dysfunction with an EF of 35%. At that time a thrombus was also noted in left atrial appendage and a small AST was also noted. Thrombus of left atrial appendage (~09/08/20) Still present on RANDALL dated 10/19/2020, patient switch from Eliquis to warfarin. Type 2 diabetes mellitus Hemoglobin A1c was 7.2% in August 2020. Surgical History Surgical History History of cardiac catheterization History of coronary artery bypass graft (~02/2014) History of left common carotid artery stent placement History of right-sided carotid endarterectomy Family History Family History Mother Heart disease Mother of an acute [place] at age 42. Father Cancer Sibling Brain tumor Social History Social History Social History: The patient lives in [place]. 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 Former smoker. Endorses marijuana use. No alcohol abuse. She designates her son, Cristhian Barreto, as her surrogate decision maker and she wishes to be a full code. Smoking packs per day: 2 Smoking cigarettes per day: 40.0 Years smoked: 30 Smoking pack-years: 60.00 Smoking status: Former smoker Alcohol intake: never Substance use: current Substance use type: marijuana Other substance usage details: uses daily Last use: yesterday Gender identity (if verbalized by the patient): Female Spiritual care concerns: No Anes - Eval Final PreProcedure Day of Procedure 12/14/21 09:17 Patient weight: obese Heart: regular rate and rhythm Lungs: clear to auscultation and normal air movement Airway: Mallampati scale class II Neurological: alert and oriented Last oral intake: >/= 8 hours ASA classif
--- NOTE | 2021-12-14 12:30 | ECG_ITS ---
Measurements Intervals [place] Rate: 83 P: [place]: 0 QRS: 72 QRSD: 101 T: -36 QT: 400 QTc: 471 Interpretive Statements ATRIAL FIBRILLATION NONSPECIFIC ST & T-WAVE ABNORMALITY ABNORMAL ECG COMPARED TO ECG 03/16/2021 08:55:34 ATRIAL FIBRILLATION NOW PRESENT Electronically Signed On 12-14-2021 18:07:46 CDT by Anderson Trejo M.D.
[2021-12-14 12:51] VITALS: BP 145/89; PULSE 86; RESP 19; TEMP 36.2; O2SAT 93
[2021-12-14 12:54] VITALS: BMI 38.5
[2021-12-14 13:03] LABS: Anion Gap 10 mmol/L (8-16); Blood Urea Nitrogen 19 mg/dL (7-17); Calcium 8.9 mg/dL (8.4-10.2); Carbon Dioxide 27 mmol/L (22-30); Chloride 101 mmol/L (98-107); Estimated CRCL calculation 94 ml/min; Estimated Glomerular Filt Rate > 60; Glucose 152 mg/dL (65-110); Magnesium 1.9 mg/dL (1.6-2.3); Potassium 4.5 mmol/L (3.4-5.0); Sodium 138 mmol/L (137-145)
[2021-12-14 13:05] LABS: INR 2.2; Prothrombin Time 23.8 Seconds (11.1-14.7)
[2021-12-14 14:22] VITALS: BP 107/63; PULSE 120; RESP 21; O2SAT 93
[2021-12-14 14:31] VITALS: BP 104/50; PULSE 80; RESP 20; O2SAT 92
--- NOTE | 2021-12-14 14:44 | WPDHPUPDATE1 ---
History and Physical Update Update Date/Time: 12/14/21 14:44 History and Physical has been reviewed, including an updated exam of the patient. There are NO changes in the patient's condition. Risks, benefits, and alternatives have been discussed and questions answered. Patient agrees to proceed with procedure.
--- NOTE | 2021-12-14 14:45 | WPDTECDV ---
RANDALL with Cardioversion Date of procedure: 12/14/21 Procedure Type: Transesophageal echocardiogram with possible elective electrical cardioversion Diagnosis: Atrial fibrillation Indications: Atrial fibrillation Description of Procedure: Brief history present illness: Patient is a pleasant yet complicated 66-year-old female with a history of chronic heart failure with reduced ejection fraction, cardiomyopathy, history of CABG, carotid arterial disease, atrial fibrillation in atrial flutter, left atrial appendage thrombus, COPD, AMOR on CPAP, small ASD referred for transesophageal echocardiogram-guided elective electrical cardioversion in attempt to restore sinus rhythm. Procedure in detail: After verbal and written informed consent was obtained the patient risks, benefits, and alternatives explained in detail the patient agreed to proceed with the plan of care as outlined above. Patient was evaluated at bedside in the endoscopy procedure suite. On examination, neck was supple with normal range of motion, no restrictions to opening of the oral cavity, jaw angle and posterior hypopharynx was clear. Lungs were clear to auscultation. Patient was placed in appropriate 30 to 45 degree angle in a supine, slight left lateral decubitus position. Patient was monitored throughout the study with telemetry, oxygen saturation, blood pressure, heart rate, and respirations. Anterior and posterior defibrillator pads placed in the appropriate positions. After the oral bite block placed and adequate sedation was administered by Anesthesiology, the transesophageal echocardiogram probe was advanced through the bite block and into the posterior hypopharynx and into the esophagus easily and without complication. Multiple, multiplanar echocardiographic images were obtained in multiple standard re-projections. Pulsed wave, continuous-wave, and color-flow Doppler were utilized in conjunction with this study. At the conclusion of the study, the transesophageal echocardiogram probe was removed easily and without complication. Patient tolerated the procedure well without difficulty. Patient was in atrial fibrillation throughout the study. Sedation: Moderate Sedation/Anesthesia administration: Please see Anesthesiology documentation for sedation details and protocol. Findings: FINDINGS: LEFT VENTRICLE: Normal size with mild LV systolic dysfunction EF approximately 45-50% hypokinesis of the inferolateral wall. RIGHT VENTRICLE: Moderately enlarged with moderate systolic dysfunction. LEFT ATRIUM: Severely enlarged with dense spontaneous contrast. RIGHT ATRIUM: Severely enlarged. INTERATRIAL SEPTUM: Interatrial septum is anatomically normal with evidence of moderate [id number] interatrial shunt consistent with atrial septal defect. MITRAL VALVE: Mitral valve is anatomically normal with mildly thickened leaflets, preserved leaflet excursion, and moderate regurgitation. Severe mitral annular calcification. AORTIC VALVE: The aortic valve was not well visualized but with evidence of at least [id number] calcification. No regurgitation identified. TRICUSPID VALVE: The tricuspid valve is anatomically normal with normal leaflet excursion with moderate to severe regurgitation identified. No mobile elements identified. PULMONIC VALVE: Pulmonic valve was not well visualized. LEFT ATRIAL APPENDAGE: Large, anatomically normal structure with prominent pectinate muscles dense spontaneous contrast and evidence of loosely organized thrombus. Left atrial appendage velocities were very low and averaged approximately 20 centimeters/second. LEFT UPPER PULMONARY VEIN: Left upper pulmonary venous flow consistent with atrial fibrillation but without significant systolic flow reversal. PERICARDIUM: The pericardium was anatomically normal without significant pericardial effusion. AORTA: Deep transgastric views were obtained in multiple standard re-projections. No additi
[2021-12-14 14:50] VITALS: BP 110/62; PULSE 77; RESP 16; O2SAT 93
[2021-12-14 15:02] VITALS: BP 110/72; PULSE 80; RESP 16; O2SAT 93
--- NOTE | 2021-12-14 15:04 | SUR.PHASEII ---
md at bedside in proprietary trader room 5 discussing plan of care with patient
--- NOTE | 2021-12-14 15:26 | SUR.PHASEII ---
d/c instructions given to patient. written instructions given to pt to take home. iv d/c tip intact. patient able to ambulate around room w/o difficulty and steady gait. patient's daughter called to notify us that she is here. md discussing care with patient.
== END 2021-12-14 15:28 | disposition home or self-care (01) ==
PROVIDERS: PCP Family Medicine; Visit Provider Internal Medicine Cardiovascular Disease
PROC: (CPT 93312; principal; 2021-12-14 14:00)
DX: I48.91 Unspecified atrial fibrillation (principal); I24.0 Acute coronary thrombosis not resulting in myocardial infarction; R93.1 Abnormal findings on diagnostic imaging of heart and coronary circulation; I36.1 Nonrheumatic tricuspid (valve) insufficiency; I11.0 Hypertensive heart disease with heart failure; I50.20 Unspecified systolic (congestive) heart failure; I42.9 Cardiomyopathy, unspecified; J44.9 Chronic obstructive pulmonary disease, unspecified; G47.33 Obstructive sleep apnea (adult) (pediatric); Z95.1 Presence of aortocoronary bypass graft; F41.8 Other specified anxiety disorders; E78.5 Hyperlipidemia, unspecified; E03.9 Hypothyroidism, unspecified; E11.9 Type 2 diabetes mellitus without complications; F12.90 Cannabis use, unspecified, uncomplicated; E66.9 Obesity, unspecified; Z68.38 Body mass index [BMI] 38.0-38.9, adult; Z79.84 Long term (current) use of oral hypoglycemic drugs; Z79.82 Long term (current) use of aspirin; Z79.01 Long term (current) use of anticoagulants; Z87.891 Personal history of nicotine dependence
CPT/HCPCS: 36415; 80048; 83735; 85610; 93312; 93320; 93325; J2704

== ENCOUNTER 2022-02-21 15:48 | Outpatient (RCR) | payer MEDICARE, SELFPAY ==
[2021-12-27 13:56] LABS: INR 2.2; Prothrombin Time 23.6 Seconds (11.1-14.7)
[2022-02-21 16:10] LABS: INR 2.1; Prothrombin Time 22.6 Seconds (11.1-14.7)
== END 2022-03-27 23:59 | disposition home or self-care (01) ==
LOC: ANHLAB 15:48
PROVIDERS: PCP Family Medicine; Visit Provider Nurse Practitioner Adult Health
DX: Z51.81 Encounter for therapeutic drug level monitoring (principal); Z79.01 Long term (current) use of anticoagulants
CPT/HCPCS: 36415; 85610

== ENCOUNTER 2022-06-30 15:44 | Outpatient (RCR) | payer MEDICARE, SELFPAY ==
[2022-04-11 16:24] LABS: INR 2.1; Prothrombin Time 23.1 Seconds (11.1-14.7)
[2022-06-02 16:56] LABS: INR 1.7; Prothrombin Time 19.2 Seconds (11.1-14.7)
[2022-06-16 17:17] LABS: INR 2.4; Prothrombin Time 25.4 Seconds (11.1-14.7)
[2022-06-30 16:15] LABS: INR 2.5; Prothrombin Time 26.4 Seconds (11.1-14.7)
== END 2022-07-10 23:59 | disposition home or self-care (01) ==
LOC: ANHLAB 15:44
PROVIDERS: PCP Family Medicine; Visit Provider Nurse Practitioner Adult Health
DX: Z51.81 Encounter for therapeutic drug level monitoring (principal); Z79.01 Long term (current) use of anticoagulants
CPT/HCPCS: 36415; 85610

== ENCOUNTER 2022-10-02 16:39 | Outpatient (RCR) | payer MEDICARE, SELFPAY ==
[2022-08-10 16:51] LABS: INR 2.6; Prothrombin Time 26.6 Seconds (11.1-14.7)
[2022-10-02 17:30] LABS: Prothrombin Time 21.6 Seconds (11.1-14.7)
[2022-11-07 15:04] LABS: INR 2.4; Prothrombin Time 25.5 Seconds (11.1-14.7)
== END 2022-11-08 23:59 | disposition home or self-care (01) ==
LOC: ANHLAB 16:39
PROVIDERS: PCP Family Medicine; Visit Provider Internal Medicine Cardiovascular Disease
DX: Z51.81 Encounter for therapeutic drug level monitoring (principal); Z79.01 Long term (current) use of anticoagulants
CPT/HCPCS: 36415; 85610

== ENCOUNTER 2022-12-06 01:21 | Day surgery (SDC) | payer MEDICARE, MEDICAID, SELFPAY ==
[2022-12-05 15:23] VITALS: BMI 37.5
[2022-12-06] VITALS (12 sets, daily range): BP systolic 105–126; BP diastolic 60–85; PULSE 88–112; RESP 14–19; TEMP 36.2; O2SAT 85–93; BMI 37.8
--- NOTE | 2022-12-06 12:58 | WPDANESEPPF ---
Anes - Initial Pre Proc Eval Procedure: Operation Date: 12/06/22 14:30 Proposed Procedures p Trans Esophageal Echo - Anderson Trejo MD Date/Time: 12/06/22 12:58 Surgeon: Anderson Trejo MD Pre Op Diagnosis: LV Thrombus Patient Data Age: 67 Gender: F Height: 1.65 m Weight: 103 kg Last Vital Signs Temp 97.2 F L 12/06/22 12:27 Pulse 88 12/06/22 12:27 Resp 19 12/06/22 12:27 BP 113/60 12/06/22 12:27 Pulse Ox 88 L 12/06/22 12:27 O2 Del Method Room Air 12/06/22 12:27 Allergies Allergy/AdvReac Type Severity Reaction Status Date / Time cefazolin Allergy Intermediate wheezing, Verified 12/06/22 12:15 rash lisinopril AdvReac Mild Cough Verified 12/06/22 12:15 Home Medications Medication Instructions Recorded Confirmed Type empagliflozin 10 mg tablet 10 mg PO DAILY 09/06/20 12/06/22 History (Jardiance) losartan 50 mg tablet 50 mg PO DAILY 09/06/20 12/06/22 History metformin 1,000 mg tablet 1,000 mg PO BID 09/06/20 12/06/22 History paroxetine HCl 20 mg tablet 20 mg PO BID 09/06/20 12/06/22 History simvastatin 40 mg tablet 40 mg PO DAILY 09/06/20 12/06/22 History sitagliptin phosphate 100 mg 100 mg PO DAILY 09/06/20 12/06/22 History tablet (Januvia) aspirin 81 mg tablet,delayed 81 mg PO QAM #30 tabs 09/11/20 12/06/22 Rx release ascorbic acid (vitamin C) 500 mg 500 mg PO DAILY 10/18/20 12/06/22 History tablet levothyroxine 75 mcg tablet 75 mcg PO DAILY 11/14/20 12/06/22 History warfarin 2 mg tablet 3 mg PO QPM #30 tabs 11/27/20 12/05/22 Rx cholecalciferol (vitamin D3) 2 tablet PO DAILY 12/13/21 12/06/22 History furosemide 40 mg tablet (Lasix) 40 mg PO DIRECTED 12/13/21 12/06/22 History metoprolol succinate 100 mg 200 mg PO DAILY 12/13/21 12/06/22 History tablet,extended release 24 hr (Toprol XL) tramadol 50 mg tablet (Ultram) 50 mg PO DAILY 12/13/21 12/05/22 History Patient hx anesthesia problems: none Family hx anesthesia problems: none Results Review: All pre-operative results and documents have been reviewed as part of the pre-operative evaluation. [facility] Past Medical History Medical History (Updated 04/17/22 @ 15:10 by Ronnie Santizo) Atrial fibrillation Carotid artery disease Coronary artery disease Depression with anxiety Diaphragmatic paralysis Left side. Hyperlipidemia Hypertension Hypothyroidism Systolic congestive heart failure Echo on 09/08/2020 showed moderate left ventricular systolic dysfunction with an EF of 35%. At that time a thrombus was also noted in left atrial appendage and a small AST was also noted. Thrombus of left atrial appendage (~09/08/20) Still present on RANDALL dated 10/19/2020, patient switch from Eliquis to warfarin. Type 2 diabetes mellitus Hemoglobin A1c was 7.2% in August 2020. Surgical History Surgical History (Updated 04/17/22 @ 15:10 by Ronnie Santizo) History of cardiac catheterization History of coronary artery bypass graft (~02/2014) History of left common carotid artery stent placement History of right-sided carotid endarterectomy Family History Family History (System 04/17/22 @ 15:10 by Ronnie Santizo) Mother Heart disease Mother of an acute [place] at age 42. Father Cancer Sibling Brain tumor Social History Social History (System 04/17/22 @ 15:10 by Ronnie Santizo) Social History: The patient lives in [place]. 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 Former smoker. Endorses marijuana use. No alcohol abuse. She designates her son, Cristhian Barreto, as her surrogate decision maker and she wishes to be a full code. Smoking packs per day: 2 Smoking cigarettes per day: 40.0 Years smoked: 48 Smoking pack-years: 96.00 Smoking status: Former smoker Tobacco type: cigarettes and e-cigarettes/vaping Alcohol intake: former Substance use: current Substance use type: marijuana Other substance usage details: 2-3 times per week smo
--- NOTE | 2022-12-06 13:07 | CARDIO_ITS ---
This report was moved to the correct visit on 12/07/2022. Original report was signed by Anderson Trejo MD on 12/06/22 1404. RANDALL TransEsophageal Echocardiogram Date of procedure: 12/06/22 Procedure Type: Transesophageal Echocardiogram Diagnosis: left atrial appendage thrombus, atrial fibrillation Indications: left atrial appendage thrombus, atrial fibrillation Image Quality: Acceptable Findings: Brief history present illness: Patient is a pleasant yet very complicated 67-year-old female with a past medical history significant for remote tobacco abuse, COPD, hypertension, status post CABG, dilated cardiomyopathy, persistent atrial fibrillation, left atrial appendage thrombus, pulmonary hypertension, mitral and tricuspid regurgitation, pulmonary hypertension, AMOR on CPAP referred for transesophageal echocardiogram for further evaluation for persistence of left atrial appendage thrombus. Procedure in detail: After verbal and written informed consent was obtained the patient risks, benefits, and alternatives explained in detail the patient agreed to proceed with the plan of care as outlined above. The patient was evaluated at bedside in the [facility] procedure room. The posterior oropharynx, neck, and jaw angle all within normal limits on examination. Lungs were clear to auscultation. See pre-sedation note for further details The patient was then placed in the appropriate 30 to 45 degree angle supine position at a slight left lateral decubitus position. Patient was monitored throughout the study with telemetry, oxygen saturation, end-tidal CO2 monitoring, blood pressure, heart rate, and respirations. The posterior hypopharynx was then locally anesthetized using repeated administration of Hurricaine spray as well as gargled viscous lidocaine. After local anesthetic of the posterior hypopharynx was achieved and the oral bite block placed, moderate sedation was administered. After confirmation of adequate moderate sedation, the transesophageal echocardiogram probe was advanced through the oral bite block into the posterior hypopharynx and into the esophagus easily and without complication. Multiple, multiplanar echocardiographic images were obtained in multiple standard re- projections. Pulsed wave, continuous-wave, and color-flow Doppler were utilized in conjunction with this study. At the conclusion of the study, the transesophageal echocardiogram probe was removed easily and without complication. The patient tolerated the procedure well without difficulty. Patient was in atrial fibrillation throughout the study. Prior to beginning procedure ambulatory O2 evaluation was performed with ambulation O2 saturations were generally 89-91% on room air. This was performed as initial O2 saturation 86-88% on room air although 97% on 2 L back on room air once again she was satting between 90-95% room air. She did not technically meet criteria for ambulatory O2 supplementation which should be monitored as an outpatient. Moderate Sedation/Anesthesia administration: Patient reports no prior problems with sedation/anesthesia. Please see Anesthesiology documentation in protocol details. FINDINGS: LEFT VENTRICLE: Normal size and with moderate LV systolic dysfunction EF 35% with paradoxical septal wall motion and mild left ventricular hypertrophy. RIGHT VENTRICLE: Normal size and mild systolic dysfunction. LEFT ATRIUM: Severe enlargement with dense spontaneous contrast. RIGHT ATRIUM: Markedly enlarged.. INTERATRIAL SEPTUM: Interatrial septum is anatomically thin and hyper mobile with evidence of oapku-dt-mogn shunt with injection of agitated saline and color flow Doppler evidence of possible sfuc-dh-eydam. MITRAL VALVE: Mitral valve is thickened with preserved leaflet excursion and moderate regurgitation.
--- NOTE | 2022-12-06 15:59 | HOMEO2EVAL ---
Evaluation was performed at [facility] Home Oxygen Evaluation RC: Home Oxygen (O2) Evaluation Start: 12/06/22 15:21 Freq: ONCE Status: Active Protocol: RPE Activity Type Activity Date Activity User E-sign Co-sign Detail Recorded Client Recorded Date Recorded By Document 12/06/22 15:35 KAG [email or web address] 12/06/22 15:54 KAG Document 12/06/22 15:38 KAG [email or web address] 12/06/22 15:55 KAG Document 12/06/22 15:55 KAG [email or web address] 12/06/22 15:57 KAG Document 12/06/22 15:58 KAG [email or web address] 12/06/22 15:58 KAG 12/06/22 12/06/22 12/06/22 15:35 15:38 15:55 Home O2 Evaluation [Oxygen] -Test Phase Resting Resting Exercise -Oxygen Delivery Room Air Nasal Cannula Nasal Cannula -Oxygen Flow Rate (L/min) 1 1 [Pulse Oximetry] -Pulse Oximetry (90-100 %) 86 L 92 85 L [Pulse Rate] -Pulse Rate (60-100 beats/min) 108 H 110 H 112 H [Evaluation] -Activity Tolerance Fair [Exercise] -Ambulation Distance (feet) 25 -Ambulation Distance (meters) 7.61 [Comments] -Home Oxygen Evaluation Comments Placed pt on 1L Applied 2L with at rest. activity. [Charges] -Treatment Charges O2 Evaluation - Inpatient 12/06/22 15:58 Home O2 Evaluation [Oxygen] -Test Phase Exercise -Oxygen Delivery Nasal Cannula -Oxygen Flow Rate (L/min) 2 [Pulse Oximetry] -Pulse Oximetry (90-100 %) 93 [Pulse Rate] -Pulse Rate (60-100 beats/min) 111 H [Evaluation] -Activity Tolerance Good [Exercise] -Ambulation Distance (feet) 25 -Ambulation Distance (meters) 7.61 [Comments] -Home Oxygen Evaluation Comments [Charges] -Treatment Charges
--- NOTE | 2022-12-06 16:07 | PCRCNOTE ---
Patient qualified for home O2 set up of 1 liter with rest and 2 liters with activity. RN notified. Patient will be set up with [facility]. [facility] number #[phone].
== END 2022-12-06 16:50 | disposition home or self-care (01) ==
PROVIDERS: PCP Family Medicine; Visit Provider Internal Medicine Cardiovascular Disease
PROC: (CPT 93312; principal; 2022-12-06 14:30)
DX: I51.3 Intracardiac thrombosis, not elsewhere classified (principal); I48.91 Unspecified atrial fibrillation; I34.0 Nonrheumatic mitral (valve) insufficiency; I36.1 Nonrheumatic tricuspid (valve) insufficiency; Q21.10 Atrial septal defect, unspecified; I11.0 Hypertensive heart disease with heart failure; I50.20 Unspecified systolic (congestive) heart failure; I42.0 Dilated cardiomyopathy; I25.10 Atherosclerotic heart disease of native coronary artery without angina pectoris; F41.8 Other specified anxiety disorders; E03.9 Hypothyroidism, unspecified; E11.9 Type 2 diabetes mellitus without complications; J44.9 Chronic obstructive pulmonary disease, unspecified; I27.20 Pulmonary hypertension, unspecified; G47.33 Obstructive sleep apnea (adult) (pediatric); Z95.1 Presence of aortocoronary bypass graft; Z79.84 Long term (current) use of oral hypoglycemic drugs; Z79.82 Long term (current) use of aspirin; Z79.01 Long term (current) use of anticoagulants; Z95.5 Presence of coronary angioplasty implant and graft; Z87.891 Personal history of nicotine dependence; F12.90 Cannabis use, unspecified, uncomplicated; E66.9 Obesity, unspecified; Z68.37 Body mass index [BMI] 37.0-37.9, adult
CPT/HCPCS: 93312; 93320; 93325; 94618; J2704; J7030

== ENCOUNTER 2023-03-27 15:31 | Outpatient (RCR) | payer MEDICARE, MEDICAID, SELFPAY ==
[2022-12-28 15:52] LABS: INR 1.8; Prothrombin Time 21.7 Seconds (11.1-14.7)
[2023-01-15 17:14] LABS: INR 2.4; Prothrombin Time 28.1 Seconds (11.1-14.7)
[2023-02-19 18:16] LABS: INR 2.1; Prothrombin Time 24.6 Seconds (11.1-14.7)
[2023-03-27 16:10] LABS: INR 2.1; Prothrombin Time 24.7 Seconds (11.1-14.7)
== END 2023-03-28 23:59 | disposition home or self-care (01) ==
LOC: ANHLAB 15:31
PROVIDERS: PCP Family Medicine; Visit Provider Nurse Practitioner Adult Health
DX: Z51.81 Encounter for therapeutic drug level monitoring (principal); I48.19 Other persistent atrial fibrillation; Z79.01 Long term (current) use of anticoagulants
CPT/HCPCS: 36415; 85610

== ENCOUNTER 2023-05-20 11:08 | Emergency (ER) | payer MEDICARE, MEDICAID, SELFPAY ==
--- NOTE | ~2023-05-20 | XR_ITS ---
XR shoulder RT min 2V, XR humerus RT 05/20/2023 11:47 (accession [id number]), 05/20/2023 11:48 (accession [id number]) Indication: Right shoulder pain after fall Procedure: 4 views right shoulder and 2 views right humerus Comparison: No prior studies for comparison. Findings: There is mild polyarticular osteoarthritis status post median sternotomy for CABG. No fract ure or traumatic malalignment. No focal soft tissue abnormality. No foreign bodies Impression: 1: No acute fracture. Reviewed, dictated and finalized at location A. Impression: 1: No acute fracture. Impression: 1: No acute fracture.
--- NOTE | ~2023-05-20 | XR_ITS ---
XR chest 2V 05/20/2023 12:15 Indication: Dyspnea. Procedure: 2 view chest Comparison: 11/26/2020 Findings: Cardiomegaly. Status post median sternotomy for CABG. No focal air space disease, pulmonary edema, pleural effusion or suspected pneumothorax. Impression: 1: No acute cardiopulmonary disease. Reviewed, dictated and finalized at location A. Impression: 1: No acute cardiopulmonary disease.
--- NOTE | ~2023-05-20 | XR_ITS ---
[XR ribs RT 2V ] INDICATION: Right rib pain after fall TECHNIQUE: Frontal projection of the upper right ribs, frontal projection of the lower right ribs, ob lique projection of all the right ribs, frontal inspiratory chest x-ray for interpretation. FINDINGS: There are no displaced rib fractures identified. There are no soft tissue abnormality see n. The lungs are clear. IMPRESSION: 1:No acute displaced rib fractures. Reviewed, dictated and finalized at location A.
[2023-05-20 11:12] VITALS: BP 134/64; PULSE 77; RESP 20; TEMP 36.4; O2SAT 94
--- NOTE | 2023-05-20 11:32 | ED.UPPEXIN ---
HPI - Extremity Injury (Upper) General Chief Complaint: Extremity Injury, Upper Stated Complaint: rt shoulder/rib pain History of Present Illness HPI narrative: PATIENT PRESENTS FOLLOWING A FALL THE PREVIOUS DAY. PATIENT STATES SHE FELL MISSED A STEP AND LANDED ON HER RIGHT SIDE. PATIENT DENIES ANY HEAD INJURY. PATIENT COMPLAINS OF RIGHT SHOULDER RIGHT UPPER ARM AND RIGHT RIB PAIN. NO VISIBLE BRUISING NO SWELLING NOTED LIMITED RANGE OF MOTION DUE TO PAIN. Related Data Home Medications Medication Instructions Recorded Confirmed empagliflozin 10 mg tablet 10 mg PO DAILY 09/06/20 05/20/23 (Jardiance) losartan 50 mg tablet 50 mg PO DAILY 09/06/20 05/20/23 metformin 1,000 mg tablet 1,000 mg PO BID 09/06/20 05/20/23 paroxetine HCl 20 mg tablet 20 mg PO BID 09/06/20 05/20/23 simvastatin 40 mg tablet 40 mg PO DAILY 09/06/20 05/20/23 sitagliptin phosphate 100 mg 100 mg PO DAILY 09/06/20 05/20/23 tablet (Januvia) ascorbic acid (vitamin C) 500 mg 500 mg PO DAILY 10/18/20 05/20/23 tablet levothyroxine 75 mcg tablet 75 mcg PO DAILY 11/14/20 05/20/23 cholecalciferol (vitamin D3) 2 tablet PO DAILY 12/13/21 05/20/23 furosemide 40 mg tablet (Lasix) 40 mg PO DIRECTED 12/13/21 05/20/23 metoprolol succinate 100 mg 200 mg PO DAILY 12/13/21 05/20/23 tablet,extended release 24 hr (Toprol XL) tramadol 50 mg tablet (Ultram) 50 mg PO DAILY 12/13/21 05/20/23 Allergies Allergy/AdvReac Type Severity Reaction Status Date / Time cefazolin Allergy Intermediate wheezing, Verified 05/20/23 11:21 rash lisinopril AdvReac Mild Cough Verified 05/20/23 11:21 Review of Systems Review of Systems: CONSTITUTIONAL: DENIES FEVER, CHILLS, OR SWEATS. EYES: DENIES VISUAL CHANGES, REDNESS, OR DISCHARGE. ENT: DENIES RHINORRHEA, CONGESTION, SORE THROAT, OR OTALGIA. CARDIOVASCULAR: DENIES CHEST PAIN, PALPITATIONS, OR EDEMA. RESPIRATORY: DENIES COUGH OR DYSPNEA. GASTROINTESTINAL: DENIES ABDOMINAL PAIN, NAUSEA, VOMITING, OR DIARRHEA. GENITOURINARY: DENIES DYSURIA OR HEMATURIA. SKIN: DENIES RASH OR ITCHING. MUSCULOSKELETAL: DENIES BACK PAIN, JOINT PAIN, OR MYALGIA. RIGHT UPPER ARM, RIGHT SHOULDER AND RIGHT RIB PAIN NEUROLOGIC: DENIES HEADACHE, NUMBNESS, OR WEAKNESS. PSYCHIATRIC: DENIES ANXIETY OR DEPRESSION. [facility] Past Medical History Medical History (Updated 05/20/23 @ 12:05 by EMMA Tapia) Atrial fibrillation Carotid artery disease Coronary artery disease Depression with anxiety Diaphragmatic paralysis Left side. Hyperlipidemia Hypertension Hypothyroidism Systolic congestive heart failure Echo on 09/08/2020 showed moderate left ventricular systolic dysfunction with an EF of 35%. At that time a thrombus was also noted in left atrial appendage and a small AST was also noted. Thrombus of left atrial appendage (~09/08/20) Still present on RANDALL dated 10/19/2020, patient switch from Eliquis to warfarin. Type 2 diabetes mellitus Hemoglobin A1c was 7.2% in August 2020. Surgical History Surgical History (Updated 04/17/22 @ 15:10 by Ronnie Santizo) History of cardiac catheterization History of coronary artery bypass graft (~02/2014) History of left common carotid artery stent placement History of right-sided carotid endarterectomy Family History Family History (System 04/17/22 @ 15:10 by Ronnie Santizo) Mother Heart disease Mother of an acute PR at age 42. Father Cancer Sibling Brain tumor Social History Social History (System 04/17/22 @ 15:10 by Ronnie Santizo) Social History: The patient lives in [place]. 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 Former smoker. Endorses marijuana use. No alcohol abuse. She designates her son, Cristhian Barreto, as her surrogate decision maker and she wishes to be a full code. Smoking packs per day: 2 Smoking cigarettes per day: 40.0 Years smoked: 48 Smoking pack-years: 96.00 Smoking status: Former smoker Tobacco typ
== END 2023-05-20 13:06 | disposition home or self-care (01) ==
PROVIDERS: Emergency Provider Nurse Practitioner Family; PCP Family Medicine
DX: S46.911A Strain of unspecified muscle, fascia and tendon at shoulder and upper arm level, right arm, initial encounter (principal); S20.211A Contusion of right front wall of thorax, initial encounter; W18.09XA Striking against other object with subsequent fall, initial encounter; I48.91 Unspecified atrial fibrillation; I25.10 Atherosclerotic heart disease of native coronary artery without angina pectoris; I77.9 Disorder of arteries and arterioles, unspecified; E78.5 Hyperlipidemia, unspecified; E03.9 Hypothyroidism, unspecified; I11.0 Hypertensive heart disease with heart failure; I50.20 Unspecified systolic (congestive) heart failure; E11.9 Type 2 diabetes mellitus without complications; Z86.718 Personal history of other venous thrombosis and embolism; Z95.5 Presence of coronary angioplasty implant and graft; F12.90 Cannabis use, unspecified, uncomplicated; Z87.891 Personal history of nicotine dependence; F41.8 Other specified anxiety disorders; Z79.01 Long term (current) use of anticoagulants
CPT/HCPCS: 71046; 71100; 73030; 73060; 99214; G0463

== ENCOUNTER 2023-08-13 13:40 | Outpatient (RCR) | payer MEDICARE, MEDICAID, SELFPAY ==
[2023-05-25 16:58] LABS: INR 2.4; Prothrombin Time 27.7 Seconds (11.1-14.7)
[2023-07-03 18:30] LABS: INR 1.8; Prothrombin Time 21.6 Seconds (11.1-14.7)
[2023-08-13 15:02] LABS: INR 1.9; Prothrombin Time 22.6 Seconds (11.1-14.7)
== END 2023-08-23 23:59 | disposition home or self-care (01) ==
LOC: ANHLAB 13:40
PROVIDERS: PCP Family Medicine; Visit Provider Nurse Practitioner Adult Health
DX: Z51.81 Encounter for therapeutic drug level monitoring (principal); I48.19 Other persistent atrial fibrillation; Z79.01 Long term (current) use of anticoagulants
CPT/HCPCS: 36415; 85610

== ENCOUNTER 2023-12-10 16:46 | Outpatient (RCR) | payer MEDICARE, MEDICAID, SELFPAY ==
[2023-10-01 17:12] LABS: INR 1.5; Prothrombin Time 19.4 Seconds (11.1-14.7)
[2023-11-01 16:31] LABS: INR 1.8; Prothrombin Time 22.5 Seconds (11.1-14.7)
[2023-11-12 16:10] LABS: INR 2.1; Prothrombin Time 25.3 Seconds (11.1-14.7)
[2023-12-10 17:11] LABS: INR 1.8; Prothrombin Time 22.3 Seconds (11.1-14.7)
== END 2023-12-30 23:59 | disposition home or self-care (01) ==
LOC: ANHLAB 16:46
PROVIDERS: PCP Family Medicine; Visit Provider Nurse Practitioner Adult Health
DX: Z51.81 Encounter for therapeutic drug level monitoring (principal); I48.19 Other persistent atrial fibrillation; Z79.01 Long term (current) use of anticoagulants
CPT/HCPCS: 36415; 85610

== ENCOUNTER 2024-01-31 11:04 | Inpatient (IN) | payer MEDICARE, SELFPAY ==
[2024-01-31] VITALS (16 sets, daily range): BP systolic 96–155; BP diastolic 58–110; PULSE 80–127; RESP 15–22; TEMP 36.2–36.8; O2SAT 90–97
--- NOTE | ~2024-01-31 | CT_ITS ---
EXAMINATION: CT abdomen pelvis w con DATE: 01/31/2024 12:18 INDICATION: Abdominal pain. TECHNIQUE: Computed tomography (CT) of the abdomen and pelvis was performed with 100 mL Omnipaque 350 intravenous contrast. Automated exposure control and iterative reconstruction technique were employe d. The dose-length product was 1225.51 mGy-cm. COMPARISON: Chest CT 09/08/2020. FINDINGS: The visualized portions of the lung bases demonstrate mild atelectasis. There is septal thi ckening, consistent mild pulmonary edema. There is an 8 mm nodule in left lower lobe, stable from 08/27, likely benign. No pleural effusion. Cardiomegaly is noted. There are coronary artery calcific ations. No pericardial effusion. There are calcifications of the aortic valve. The liver and spleen a re normal. The gallbladder is normal in size. Gallbladder wall thickening is likely secondary to inte rstitial edema. The pancreas and adrenal glands are normal. There is cortical thinning of the kidneys . There is calcified atherosclerosis of the aorta and many of the other arteries. There is diverticul osis of the colon without evidence of diverticulitis. The appendix is normal. There is mild gastrohep atic, periportal, aortocaval, and left para-aortic lymphadenopathy. There is trace perihepatic ascite s. There is a periumbilical portacaval shunt. The ovarian veins and periuterine veins are enlarged, c onsistent with pelvic venous insufficiency. Body wall edema is noted. There is moderate lumbar spondy losis. There is mild thoracic spondylosis. IMPRESSION: 1. Mild abdominal lymphadenopathy, likely reactive. 2. Trace ascites. 3. Pelvic venous insufficiency. Reviewed, dictated and finalized at location A.
--- NOTE | ~2024-01-31 | XR_ITS ---
XR chest 1V portable 01/31/2024 11:39 Indication: Cough and shortness of breath Procedure: AP portable chest Comparison: Comparison to multiple prior studies sequentially, with oldest reviewed study dated 09/06. Findings: Status post median sternotomy for CABG. Cardiomegaly. Mild interstitial edema. No significa nt effusion. No pneumothorax. No acute osseous abnormality. Impression: 1: Cardiomegaly with mild interstitial edema. Reviewed, dictated and finalized at location B. Impression: 1: Cardiomegaly with mild interstitial edema.
--- NOTE | 2024-01-31 11:12 | ECG_ITS ---
[facility] [address] Test Date: 2024-01-31 Pat Name: Tressa Myers Department: Room: Gender: F Exhibit Display Representative: LEONELA : 1955 Requested By: Cody Del Rio Order Number: [id number] Reading MD: Myriam Damon M.D. Measurements Intervals [place] Rate: 81 P: 0 DC: 0 QRS: 69 QRSD: 100 T: 120 QT: 361 QTc: 421 Interpretive Statements ATRIAL FLUTTER NONSPECIFIC ST & T-WAVE ABNORMALITY No previous ECG available for comparison Electronically Signed On 01-31-2024 13:50:32 CDT by Myriam Damon M.D.
--- NOTE | 2024-01-31 11:17 | PC.NURSE ---
patients O2 on RA was 88%. placed patient on 2L NC and is now satting 93-94% per MD order
--- NOTE | 2024-01-31 11:22 | ED.GENADULT ---
HPI - General Adult General Chief complaint: Unspecified Stated complaint: uti, can' breath, swelling Time Seen by Provider: 01/31/24 11:15 History of Present Illness HPI narrative: Pt presents with complaints of worsening SOB. Pt says she is chronically SOB due to COPD and paralyzd diaphragm but is worse. Pt usually wears 2L NC oxygen at night but not during the day. Pt has history of a flutter and chf as well as CABG in past. Pt took ozempic for period of time and then stopped a few weeds ago due to side effects but feels discomfort in lower abdomen and feels bloated and constipated. Pt denies fever or vomiting. Related Data Home Medications Medication Instructions Recorded Confirmed empagliflozin 10 mg tablet 10 mg PO DAILY 09/06/20 05/20/23 (Jardiance) losartan 50 mg tablet 50 mg PO DAILY 09/06/20 05/20/23 metformin 1,000 mg tablet 1,000 mg PO BID 09/06/20 05/20/23 paroxetine HCl 20 mg tablet 20 mg PO BID 09/06/20 05/20/23 simvastatin 40 mg tablet 40 mg PO DAILY 09/06/20 05/20/23 sitagliptin phosphate 100 mg 100 mg PO DAILY 09/06/20 05/20/23 tablet (Januvia) ascorbic acid (vitamin C) 500 mg 500 mg PO DAILY 10/18/20 05/20/23 tablet levothyroxine 75 mcg tablet 75 mcg PO DAILY 11/14/20 05/20/23 cholecalciferol (vitamin D3) 2 tablet PO DAILY 12/13/21 05/20/23 furosemide 40 mg tablet (Lasix) 40 mg PO DIRECTED 12/13/21 05/20/23 metoprolol succinate 100 mg 200 mg PO DAILY 12/13/21 05/20/23 tablet,extended release 24 hr (Toprol XL) tramadol 50 mg tablet (Ultram) 50 mg PO DAILY 12/13/21 05/20/23 Allergies Allergy/AdvReac Type Severity Reaction Status Date / Time cefazolin Allergy Intermediate wheezing, Verified 05/20/23 11:21 rash lisinopril AdvReac Mild Cough Verified 05/20/23 11:21 Review of Systems Review of Systems: All systems reviewed & are unremarkable except as noted in HPI and below PMFSH Past Medical History Medical History Atrial fibrillation Carotid artery disease Coronary artery disease Depression with anxiety Diaphragmatic paralysis Left side. Hyperlipidemia Hypertension Hypothyroidism Systolic congestive heart failure Echo on 09/08/2020 showed moderate left ventricular systolic dysfunction with an EF of 35%. At that time a thrombus was also noted in left atrial appendage and a small AST was also noted. Thrombus of left atrial appendage (~09/08/20) Still present on RANDALL dated 10/19/2020, patient switch from Eliquis to warfarin. Type 2 diabetes mellitus Hemoglobin A1c was 7.2% in August 2020. Surgical History Surgical History History of cardiac catheterization History of coronary artery bypass graft (~02/2014) History of left common carotid artery stent placement History of right-sided carotid endarterectomy Family History Family History Mother Heart disease Mother of an acute PA at age 42. Father Cancer Sibling Brain tumor Social History Social History Social History: The patient lives in [place]. 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 Former smoker. Endorses marijuana use. No alcohol abuse. She designates her son, Cristhian Barreto, as her surrogate decision maker and she wishes to be a full code. Smoking packs per day: 2 Smoking cigarettes per day: 40.0 Years smoked: 48 Smoking pack-years: 96.00 Smoking status: Former smoker Tobacco type: cigarettes and e-cigarettes/vaping Alcohol intake: former Substance use: current Substance use type: marijuana Other substance usage details: 2-3 times per week smokes Last use: yesterday Living arrangements: alone Gender identity (if verbalized by the patient): Female Spiritual care concerns: No Exam Const: Gene
[2024-01-31 11:41] LABS: Basophils Absolute Auto 0.1 K/mm3 (0.0-0.1); Basophils Percent Auto 0.8 % (0.2-1.2); Eosinophils Absolute Auto 0.1 K/mm3 (0-0.3); Eosinophils Percent Auto 1.2 % (0-4.4); Hematocrit 38.1 % (37.0-47.0); Hemoglobin 11.8 g/dL (12.0-15.0); Immature Granulocyte Absolute 0.03 K/mm3 (0.00-0.031); Immature Granulocyte Percent A 0.4 % (0-0.5); Lymphocytes Absolute Auto 1.16 K/mm3 (0.9-3.2); Lymphocytes Percent Auto 15.1 % (18.3-44.2); Mean Platelet Volume 9.3 fl (7.4-10.4); Monocytes Absolute Auto 0.6 K/mm3 (0.1-0.6); Monocytes Percent Auto 8.1 % (2.6-8.5); Neutrophils Absolute Auto 5.7 K/mm3 (1.3-6.7); Neutrophils Percent Auto 74.4 % (45.5-73.1); Platelet Count Result 249 k/mm3 (150-375); Red Blood Count 3.81 M/mm3 (4.2-5.4); White Blood Count 7.7 K/mm3 (4.5-10.0)
[2024-01-31 11:47] LABS: INR 2.9; Prothrombin Time 31.4 Seconds (11.1-14.7)
[2024-01-31 11:48] LABS: Partial Thromboplastin Time 42.6 Seconds (22.3-36.8)
[2024-01-31 11:58] LABS: Alanine Aminotransferase 18 U/L (6-35); Alkaline Phosphatase 94 U/L (38-126); Anion Gap 11 mmol/L (4-12); Aspartate Amino Transferase 29 U/L (14-36); Bilirubin,Total 0.8 mg/dL (0.2-1.3); Blood Urea Nitrogen 25 mg/dL (7-17); Calcium 8.6 mg/dL (8.4-10.2); Carbon Dioxide 21 mmol/L (22-30); Chloride 104 mmol/L (98-107); Estimated CRCL calculation 68 ml/min; Estimated Glomerular Filt Rate > 60; Glucose 156 mg/dL (65-110); Potassium 4.7 mmol/L (3.4-5.0); Sodium 136 mmol/L (137-145)
[2024-01-31] MEDS: IPRATROPIUM 0.5 MG/ALBUTEROL SULFATE 2.5 MG AMPUL.NEB 3 ML INHALATION (11:58)
[2024-01-31 12:09] LABS: NT Pro B Type Natriuretic Pept 2850 pg/mL (19.9-100); Troponin I < 0.012 ng/mL (0.000-0.034)
[2024-01-31 12:12] LABS: Appearance Urine Cloudy (Clear); Bacteria Urine Rare /hpf; Bilirubin Urine Negative (Negative); Blood Urine 2+ (Negative); Color Urine Yellow (Yellow); Glucose Urine UA 3+ mg/dL (Negative); Ketones Urine Negative (Negative); Leukocyte Esterase Ur 2+ LEU/UL (Negative); Nitrate Urine Negative (Negative); Non Pathogenic Casts 0-2; Protein Urine 2+ mg/dL (Negative); Specific Grav Ur 1.026 (1.001-1.035); Squamous Epithelial Cell Urine Occasional /hpf (Few); WBC Urine >100 /hpf (0-3); pH Urine 6.5 (5.0-9.0)
[2024-01-31 12:16] LABS: Add Urine Microscopic? YES
[2024-01-31] MEDS: levoFLOXacin 500 MG/D5W 100 ML 500 MG/100 ML BAG 100 MG IVPB (13:31)
[2024-01-31] MEDS: FUROSEMIDE INJ 40 MG/4 ML VIAL IV PUSH (13:31)
--- NOTE | 2024-01-31 13:41 | PC.NURSE ---
purwick applied after Lasix administration for patient comfort
--- NOTE | 2024-01-31 14:12 | PM.IMHP ---
H&P: HPI History of Present Illness Date/Time: 01/31/24 14:12 Chief Complaint: Dysuria, SOB Narrative: 69 y/o F presents here with concern for UTI, shortness of breath, abdominal discomfort and constipation with PMH of Afib (coag/no coag), CAD, depression/anxiety, diaphragmatic paralysis (left side r/t open heart surgery), HLD, HTN, hypothyroidism, CHF, CABG (2013), left common carotid stent, right carotid endarterectomy, and DM2. The patient presents here from home with concerns for a UTI, shortness of breath, abdominal discomfort, and constipation. Patient reports chronic shortness of breath secondary to COPD and a paralyzation of the left side of her diaphragm after she had open heart surgery (2013). At baseline she wears 2L NC only at night. Arrived 90% on RA, placed on 2L NC which increased her sat to 94%. Worsening shortness of breath has been ongoing for the past 2 weeks. SOB not associated with fever, chills, body aches, or cough. Patient also began experiencing lower abdominal discomfort that started while she was on Ozempic. She describes the pain as lower abdominal, pressure, nonradiating, constant, no aggravating factors, or alleviating factors identified by the patient. She believes the pain is secondary to recent Ozempic course. Patient was on Ozempic for 6-8 weeks, stopped in early December due to side effects (i.e. abdominal pressure/discomfort, fecal urgency). Since cessation has been feeling bloated and constipated. Last BM on Sunday or Sunday - small in volume and hard. Not on any medications for constipation and has not tried any OTC medications for it. No associated nausea or vomiting. Initial VS at presentation: 98.3F, HR 80, RR 18, 100/58, 90% on RA. Now 94% on 2L NC. ED workup showed: No leukocytosis, no significant anemia, INR 2.9, no significant electrolyte derangements, creatinine 0.8 and GFR >60, BNP 2850, and UA suspicious for UTI. CXR showed cardiomegaly with mild interstitial edema. CT of the abdomen/pelvis showed mild abdominal lymphedema, trace ascites, and pelvic venous insufficiency. Review of Systems Review of Systems: All systems reviewed & are unremarkable except as noted in HPI and below PMFSH Past Medical History Medical History (Updated 02/01/24 @ 01:13 by Adelaide Arzate APRN) Atrial fibrillation Carotid artery disease Coronary artery disease Depression with anxiety Diaphragmatic paralysis Left side. Hyperlipidemia Hypertension Hypothyroidism Systolic congestive heart failure Echo on 09/08/2020 showed moderate left ventricular systolic dysfunction with an EF of 35%. At that time a thrombus was also noted in left atrial appendage and a small AST was also noted. Thrombus of left atrial appendage (~09/08/20) Still present on RANDALL dated 10/19/2020, patient switch from Eliquis to warfarin. Type 2 diabetes mellitus Hemoglobin A1c was 7.2% in August 2020. Surgical History Surgical History History of cardiac catheterization History of coronary artery bypass graft (~02/2014) History of left common carotid artery stent placement History of right-sided carotid endarterectomy Family History Family History Mother Heart disease Mother of an acute [place] at age 42. Father Cancer Sibling Brain tumor Social History Social History Social History: The patient lives in [place]. 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 Former smoker. Endorses marijuana use. No alcohol abuse. She designates her son, Cristhian Barreto, as her surrogate decision maker and she wishes to be a full code. Smoking packs per day: 2 Smoking cigarettes per day: 40.0 Years smoked: 48 Smoking pack-years: 96.00 Smoking status: Former smoker Alcohol intake: former Substance use: current Substan
--- NOTE | 2024-01-31 15:20 | ADMGEN ---
This patient, Tressa Myers, was admitted to Medical Room 349-01. Patient/family oriented to hospital policies and general routines including ID bracelet, bed and alarms, visiting hours, pain management, procedures, bathroom and other care routines, personal items, smoking policy, room service/diet, and visiting hours. Information on how to activate the Rapid Response Team has been discussed. Patient/Family are encouraged to report perceived risks to care and to ask questions if they do not understand what they are told or what they should do.
[2024-02-01] VITALS (11 sets, daily range): BP systolic 106–148; BP diastolic 67–84; PULSE 65–128; RESP 16–20; TEMP 36.3–36.6; O2SAT 95–96; BMI 36.7
--- NOTE | 2024-02-01 | ECHO_ITS ---
Patient Info Name: Tressa Myers Age: 69 years : 1955 Gender: Female Ht: 65 in Wt: 220 lbs BSA: 2.18 m2 HR: 120 bpm BP: 148 / 84 mmHg Heart Rhythm: Atrial Flutter Technical Quality: Fair Exam Date: 02/01/2024 9:49 AM Exam Location: Echo Lab Patient Status: Outpatient Admit Date: 01/31/2024 Staff Ordering Physician: Adelaide Arzate APRN [employer] Machine Tender: Jada Sánchez RDCS Attending Provider: Luis Tompkins MD Referring Physician: Carito CHAMPION; Exam Type: CA echo doppler color flow Study Info Indications J81.0 - Acute pulmonary edema J96.01 - Acute respiratory failure with hypoxia Complete two-dimensional, color flow and Doppler transthoracic echocardiogram is performed. Summary 1. Complete two-dimensional, color flow and Doppler transthoracic echocardiogram is performed. 2. Normal left ventricular size with adequate systolic function ejection fraction 50% by visual estimation. 3. Severe biatrial dilation. 4. Mild aortic valve stenosis valve area 1.6 cm2. 5. Small amount of mitral and tricuspid insufficiency. 6. Atrial flutter. Left Ventricle Left ventricular chamber dimension is normal. Left ventricular systolic function is Empty, estimated at 50-55%. The left ventricular diastolic function is indeterminate. Right Ventricle Right ventricular chamber dimension is normal. Left Atria Left atrial chamber dimension is severely enlarged. Right Atria Right atrial chamber dimension is severely enlarged. Aortic Valve The aortic valve is trileaflet. There is moderate aortic valve sclerosis. There is mild aortic valve stenosis with a peak velocity of 172 cm/s, mean gradient of 7 mmHg, and aortic valve area of 2.1 cm2. Pulmonic Valve The pulmonic valve is not well visualized. Mitral Valve The mitral valve has normal leaflets. There is mild mitral valve regurgitation. The mitral valve annulus is mildly calcified. Tricuspid Valve The tricuspid valve leaflets are normal. There is mild to moderate tricuspid valve regurgitation. Pericardium/Pleural The pericardium appears normal. Aorta The aortic root size at the sinus of Valsalva is normal. Left Ventricular Outflow Tract Name Value Normal LVOT 2D LVOT Diameter 2.1 cm LVOT Doppler LVOT Peak Gradient 4 mmHg LVOT Mean Gradient 2 mmHg LVOT VTI 16 cm LVOT VTI/AV VTI Ratio 0.6 LVOT Stroke Volume 57 ml LVOT CO 6.7 l/min LVOT CI 3.1 l/min/m2 Pulmonic Valve Name Value Normal RVOT Doppler RVOT Peak Gradient 2 mmHg PV Doppler PV Peak Gradient 2 mmHg PV Regurgitation Doppler
[2024-02-01 05:11] LABS: Basophils Absolute Auto 0.1 K/mm3 (0.0-0.1); Basophils Percent Auto 0.9 % (0.2-1.2); Eosinophils Absolute Auto 0.2 K/mm3 (0-0.3); Hematocrit 40.6 % (37.0-47.0); Hemoglobin 12.5 g/dL (12.0-15.0); Immature Granulocyte Absolute 0.02 K/mm3 (0.00-0.031); Immature Granulocyte Percent A 0.3 % (0-0.5); Lymphocytes Absolute Auto 1.89 K/mm3 (0.9-3.2); Lymphocytes Percent Auto 24.2 % (18.3-44.2); Mean Corpuscular HGB Conc 30.8 g/dl (32-36); Mean Corpuscular Hemoglobin 30.5 pg (26-34); Monocytes Absolute Auto 0.9 K/mm3 (0.1-0.6); Monocytes Percent Auto 11.3 % (2.6-8.5); Neutrophils Absolute Auto 4.8 K/mm3 (1.3-6.7); Neutrophils Percent Auto 61.3 % (45.5-73.1); Platelet Count Result 243 k/mm3 (150-375); Red Cell Distribution Width 14.1 % (11.5-14.5); White Blood Count 7.8 K/mm3 (4.5-10.0)
[2024-02-01 05:21] LABS: Alanine Aminotransferase 18 U/L (6-35); Albumin Level 3.9 g/dL (3.5-5.1); Alkaline Phosphatase 89 U/L (38-126); Anion Gap 6 mmol/L (4-12); Aspartate Amino Transferase 29 U/L (14-36); Bilirubin,Total 1.2 mg/dL (0.2-1.3); Blood Urea Nitrogen 20 mg/dL (7-17); Calcium 8.9 mg/dL (8.4-10.2); Carbon Dioxide 34 mmol/L (22-30); Chloride 98 mmol/L (98-107); Estimated CRCL calculation 68 ml/min; Estimated Glomerular Filt Rate > 60; Glucose 123 mg/dL (65-110); Potassium 4.1 mmol/L (3.4-5.0); Sodium 138 mmol/L (137-145)
[2024-02-01 05:23] LABS: Hemoglobin A1C 7.3 % (<5.7)
[2024-02-01 05:31] LABS: Troponin I < 0.012 ng/mL (0.000-0.034)
[2024-02-01] MEDS: LEVOTHYROXINE SODIUM 75 MCG TABLET PO (06:08)
[2024-02-01 08:51] LABS: Glucose Point of Care 149 mg/dl (65-105)
[2024-02-01] MEDS: NITROFURANTOIN MONOHYD MACROCR 100 MG CAP PO (08:56)
[2024-02-01] MEDS: FUROSEMIDE 40 MG TABLET PO (08:56)
[2024-02-01 12:09] LABS: Glucose Point of Care 241 mg/dl (65-105)
[2024-02-01] MEDS: INSULIN ASPART (*BKC) 100 UNITS/ML SUB-Q (12:15)
[2024-02-01] MEDS: levoFLOXacin 750 MG/D5W 150 ML 750 MG/150 ML BAG 100 MG IVPB (12:32)
[2024-02-01] MEDS: METOPROLOL TARTRATE INJ 5 MG/5 ML VIAL 2.5 MG IV PUSH (12:33)
--- NOTE | 2024-02-01 13:49 | PM.IMPN ---
Progress Note: A&P Assessment and Plan (1) CHF (congestive heart failure): Code(s): I50.9 - Heart failure, unspecified Status: Acute Assessment and Plan: - Appears to be acute on chronic HFrEF - BNP 2850 - most recent echo (12/07/2022): Moderate LV systolic dysfunction EF 35%, done via RANDALL. See cardiology report for details. - repeat echo pending - IV lasix given in the ED - IV lasix IV BID for now - daily weights - monitor I&Os - trend renal function (2) Atrial flutter: Code(s): I48.92 - Unspecified atrial flutter Status: Acute Assessment and Plan: - Uncontrolled with heart rate in the 120-130s - EKG, initial: Atrial flutter, rate 81, nonspecific ST and T-wave abnormality. - history of AFib/Aflutter - Troponin: <0.012 -> 0.012 - Change Metoprolol ER 200 mg HS, Metoprolol 150 mg PO BID - Continue to trend HR - continue warfarin - telemetry monitoring (3) Acute UTI: Code(s): N39.0 - Urinary tract infection, site not specified Status: Acute Assessment and Plan: - UA: Cloudy, 2+ protein, 3+ glucose, 2+ blood, 2+ leuks, 6-10 RBC, greater than 100 WBC, occasional epithelial cells, rare bacteria. - UC pending, obtained on 01/30 - previous micro reviewed, no history of MDR UTI - started on Levaquin on 01/30, transitioned to Macrobid on 01/31, transitioned back to Levaquin for now (4) Type 2 diabetes mellitus: Qualifiers: Diabetes mellitus fci insulin use: without fci use Code(s): E11.9 - Type 2 diabetes mellitus without complications Status: Acute Assessment and Plan: - hypoglycemia protocol - POC blood glucose ACHS - home medication: Continue Jardiance 10 mg HS, Januvia 100 mg HS. Hold metformin 1000 mg b.i.d.. - correct regimen ordered - low TIDWM - A1C 7.3 - Current glucose 123 - Continue to trend labs (5) AMOR (obstructive sleep apnea): Code(s): G47.33 - Obstructive sleep apnea (adult) (pediatric) Status: Acute Assessment and Plan: - continue supplemental O2, 2 L nasal cannula - continue CPAP at night as tolerated (6) Hypertension: Qualifiers: Hypertension type: primary hypertension Qualified Code(s): I10 - Essential (primary) hypertension Code(s): I10 - Essential (primary) hypertension Status: Acute Assessment and Plan: - chronic, BP 129/80 at admission - Currently 139/97 - continue home medications: Losartan 50 mg HS - monitor Plan Patient here with CHF exacerbation and UTI. Given Lasix 40 mg x2, continue oral Lasix 40 mg daily. Repeat echo. Previous echo showed EF of 35% in 2022. Currently requiring 2 L nasal cannula during daytime hours, baseline O2 requirement is 2 L at nighttime. 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 The patient presents here from home with concerns for a UTI, shortness of breath, abdominal discomfort, and constipation. Patient reports chronic shortness of breath secondary to COPD and a paralyzation of the left side of her diaphragm after she had open heart surgery (2013). At baseline she wears 2L NC only at night. Arrived 90% on RA, placed on 2L NC which increased her sat to 94%. Worsening shortness of breath has been ongoing for the past 2 weeks. SOB not associated with fever, chills, body a
[2024-02-01] MEDS: METOPROLOL TARTRATE 50 MG TAB PO (14:11)
[2024-02-01] MEDS: FUROSEMIDE INJ 40 MG/4 ML VIAL IV PUSH (14:12)
[2024-02-01 17:14] LABS: Glucose Point of Care 163 mg/dl (65-105)
[2024-02-01] MEDS: WARFARIN (*PBKC) 4 MG TABLET PO (17:34)
[2024-02-01] MEDS: METOPROLOL TARTRATE 50 MG TAB 150 MG PO (21:31)
[2024-02-01] MEDS: SITagliptin PHOSPHATE 100 MG TABLET PO (21:32)
[2024-02-01] MEDS: EMPAGLIFLOZIN 10 MG TABLET PO (21:32)
[2024-02-01] MEDS: DOCUSATE SODIUM 100 MG CAPSULE PO (21:32)
[2024-02-01] MEDS: ASCORBIC ACID 500 MG TABLET PO (21:32)
[2024-02-01] MEDS: PARoxetine 20 MG TABLET PO (21:32)
[2024-02-01] MEDS: ASPIRIN 81 MG ENTERIC TABLET PO (21:33)
[2024-02-01] MEDS: CHOLECALCIFEROL 1,000 UNITS TABLET 2000 UNITS PO (21:33)
[2024-02-01] MEDS: SIMVASTATIN 20 MG TABLET 40 MG PO (21:33)
[2024-02-01] MEDS: LOSARTAN POTASSIUM 25 MG TABLET PO (21:33)
[2024-02-02 04:04] VITALS: PULSE 94
[2024-02-02 05:48] LABS: Basophils Absolute Auto 0.1 K/mm3 (0.0-0.1); Basophils Percent Auto 0.9 % (0.2-1.2); Eosinophils Absolute Auto 0.2 K/mm3 (0-0.3); Eosinophils Percent Auto 3.1 % (0-4.4); Hematocrit 42.4 % (37.0-47.0); Hemoglobin 12.9 g/dL (12.0-15.0); Immature Granulocyte Absolute 0.02 K/mm3 (0.00-0.031); Immature Granulocyte Percent A 0.3 % (0-0.5); Lymphocytes Absolute Auto 1.21 K/mm3 (0.9-3.2); Lymphocytes Percent Auto 18.1 % (18.3-44.2); Mean Corpuscular HGB Conc 30.4 g/dl (32-36); Mean Corpuscular Hemoglobin 30.1 pg (26-34); Mean Corpuscular Volume 99.1 fl (80-100); Mean Platelet Volume 9.1 fl (7.4-10.4); Monocytes Absolute Auto 0.8 K/mm3 (0.1-0.6); Monocytes Percent Auto 11.5 % (2.6-8.5); Neutrophils Absolute Auto 4.4 K/mm3 (1.3-6.7); Neutrophils Percent Auto 66.1 % (45.5-73.1); Platelet Count Result 262 k/mm3 (150-375); Red Blood Count 4.28 M/mm3 (4.2-5.4); Red Cell Distribution Width 14.1 % (11.5-14.5); White Blood Count 6.7 K/mm3 (4.5-10.0)
[2024-02-02 06:00] VITALS: BP 108/69; PULSE 73; RESP 16; TEMP 36.2; O2SAT 93
[2024-02-02 06:06] LABS: Alanine Aminotransferase 17 U/L (6-35); Albumin Level 3.7 g/dL (3.5-5.1); Alkaline Phosphatase 82 U/L (38-126); Anion Gap 4 mmol/L (4-12); Aspartate Amino Transferase 30 U/L (14-36); Bilirubin,Total 1.1 mg/dL (0.2-1.3); Blood Urea Nitrogen 26 mg/dL (7-17); Calcium 8.9 mg/dL (8.4-10.2); Carbon Dioxide 35 mmol/L (22-30); Chloride 99 mmol/L (98-107); Estimated CRCL calculation 68 ml/min; Estimated Glomerular Filt Rate > 60; Glucose 185 mg/dL (65-110); Magnesium 1.5 mg/dL (1.6-2.3); Potassium 3.9 mmol/L (3.4-5.0); Sodium 138 mmol/L (137-145)
[2024-02-02] MEDS: LEVOTHYROXINE SODIUM 75 MCG TABLET PO (06:32)
[2024-02-02 06:41] LABS: Glucose Point of Care 142 mg/dl (65-105)
[2024-02-02 08:00] VITALS: PULSE 100
[2024-02-02 08:12] VITALS: PULSE 95
[2024-02-02] MEDS: FUROSEMIDE INJ 40 MG/4 ML VIAL IV PUSH (08:12)
[2024-02-02] MEDS: METOPROLOL TARTRATE 50 MG TAB 150 MG PO (08:12)
[2024-02-02] MEDS: DOCUSATE SODIUM 100 MG CAPSULE PO (08:12)
[2024-02-02] MEDS: polyethylene glycoL 3350 17 GM POWD.PACK PO (08:12)
[2024-02-02] MEDS: levoFLOXacin 750 MG/D5W 150 ML 750 MG/150 ML BAG 100 MG IVPB (08:13)
[2024-02-02 08:32] LABS: Glucose Point of Care 181 mg/dl (65-105)
[2024-02-02 09:54] VITALS: O2SAT 93
[2024-02-02] MEDS: MAGNESIUM SULF 2 GM/WATER 50ML 2 GM/50 ML BAG IVPB (10:27)
[2024-02-02 11:45] LABS: INR 2.2; Prothrombin Time 25.5 Seconds (11.1-14.7)
[2024-02-02 12:17] LABS: Glucose Point of Care 224 mg/dl (65-105)
--- NOTE | 2024-02-02 13:01 | PM.DS ---
DS: Admitting Diagnosis Discharge Date 02/02/2024 Admitting Diagnosis Shortness of breath, UTI and Constipation DS: Discharge Diagnosis Discharge Diagnosis Plan Shortness of breath: patient with history of CHF with EF of 35% patient has been dirused, her repeat ECHO showed improvement showing normal left ventricular size with adequate systolic function ejection fraction 50% by visual estimation. patient is clinically improved, on RA, speaks in full sentences and NAD. UTI: patient Urince c/s showed E coli, and K pneumonia, patient was treated with levofloxin. will discharge home of levaquin. Patient's grand son's 16th birthday is today, patient wish attend his day. Patient is instructed recheck her INT by Sunday and to follow up with her primary care provider as soon possible DS: Summary Hospital Course Reason for hospitalization: shortness of breath UTI Hospital Course: Shortness of breath: patient with history of CHF with EF of 35% patient has been dirused, her repeat ECHO showed improvement showing normal left ventricular size with adequate systolic function ejection fraction 50% by visual estimation. patient is clinically improved, on RA, speaks in full sentences and NAD. UTI: patient Urince c/s showed E coli, and K pneumonia, patient was treated with levofloxin. will discharge home of levaquin. Patient's grand son's 16th birthday is today, patient wish attend his day. Patient is instructed recheck her INT by Sunday and to follow up with her primary care provider as soon possible Time Spent with Patient Time attestation: Total time spent providing and/or coordinating discharge services: DS: Data Data Completed and Pending Labs on day of discharge: Labs from last 24 hours 02/02/24 02/02/24 02/02/24 12:14 11:23 08:30 WBC RBC Hgb Hct MCV MCH MCHC RDW Plt Count MPV Immature Gran % (Auto) Neut % (Auto) Lymph % (Auto) Chase % (Auto) Eos % (Auto) Baso % (Auto) Lymph # (Auto) Chase # (Auto) Eos # (Auto) Baso # (Auto) Abs Immat Gran (auto) Absolute Neuts (auto) Absolute Nucleated RBC Nucleated RBC % PT 25.5 H INR 2.2 Sodium Potassium Chloride Carbon Dioxide Anion Gap BUN Creatinine Estim Creat Clear Calc Estimated GFR Glucose POC Capillary Glucose 224 H 181 H Calcium Magnesium Total Bilirubin AST ALT Alkaline Phosphatase Total Protein Albumin 02/02/24 02/01/24 02/01/24 05:35 21:42 17:11 WBC 6.7 RBC 4.28 Hgb 12.9 Hct 42.4 MCV 99.1 MCH 30.1 MCHC 30.4 L RDW 14.1 Plt Count 262 MPV 9.1 Immature Gran % (Auto) 0.3 Neut % (Auto) 66.1 Lymph % (Auto) 18.1 L Chase % (Auto) 11.5 H Eos % (Auto) 3.1 Baso % (Auto) 0.9 Lymph # (Auto) 1.21 Chase # (Auto) 0.8 H Eos # (Auto) 0.2 Baso # (Auto) 0.1 Abs Immat Gran (auto) 0.02 Absolute Neuts (auto) 4.4 Absolute Nucleated RBC 0.000 Nucleated RBC % 0.0 PT INR Sodium 138 Potassium 3.9 Chloride 99 Carbon Dioxide 35 H Anion Gap 4 BUN 26 H Creatinine 0.80 Estim Creat Clear Calc 68 Estimated GFR > 60 Glucose 185 H POC Capillary Glucose 142 H 163 H Calcium 8.9 Magnesium 1.5 L Total Bilirubin 1.1 AST 30 ALT 17 Alkaline Phosphatase 82 Total Protein 7.0 Albumin 3.7 Preliminary micro results at discharge 01/31/24 11:35 Urine Culture - Preliminary Urine Clean Catch Escherichia Coli Klebsiella pneumoniae Discharge Plan Discharge Attending physician on discharge: Mari Andres Discharging Clinician: Mari Andres Patient Disposition: Home, Self-Care Activity: as tolerated Diet: diabetic Discharge Instructions: patient is instructed not to exert herself, if any symptoms worsen, shortness of breath, chest pain, dizziness,
--- NOTE | 2024-02-02 13:36 | PC.NURSE ---
Pt instructed by hospitalist and publications writer to call PC Sunday for next available appointment.
== END 2024-02-02 14:26 | disposition home or self-care (01) | DRG 291 ==
LOC: ANHED 12:48 → ANH3MED 14:27
PROVIDERS: Nurse Practitioner; Student in an Organized Health Care Education/Training Program; Admitting Provider Internal Medicine; Emergency Provider Emergency Medicine; PCP Family Medicine; Visit Provider Family Medicine
DX: I11.0 Hypertensive heart disease with heart failure (principal); I50.23 Acute on chronic systolic (congestive) heart failure; N39.0 Urinary tract infection, site not specified; I48.92 Unspecified atrial flutter; J44.9 Chronic obstructive pulmonary disease, unspecified; J98.6 Disorders of diaphragm; E78.5 Hyperlipidemia, unspecified; E03.9 Hypothyroidism, unspecified; E11.9 Type 2 diabetes mellitus without complications; B96.1 Klebsiella pneumoniae [K. pneumoniae] as the cause of diseases classified elsewhere; B96.20 Unspecified Escherichia coli [E. coli] as the cause of diseases classified elsewhere; F32.A Depression, unspecified; F41.9 Anxiety disorder, unspecified; Z95.1 Presence of aortocoronary bypass graft; Z95.820 Peripheral vascular angioplasty status with implants and grafts
CPT/HCPCS: 36415; 71045; 74177; 80053; 81001; 82948; 83036; 83735; 83880; 84443; 84484; 85025; 85610; 85730; 87077; 87086; 87088; 87186; 93005; 93306; 94640; 96365; 96375; 96376; 99285; A9270; G0378; J1815; J1940; J1956; J3475; Q9967

== ENCOUNTER 2024-02-27 08:18 | Outpatient (RCR) | payer MEDICARE, SELFPAY ==
[2024-01-04 16:56] LABS: INR 2.4; Prothrombin Time 28.2 Seconds (11.1-14.7)
[2024-02-27 08:48] LABS: INR 2.6; Prothrombin Time 28.1 Seconds (11.1-14.7)
== END 2024-04-03 23:59 | disposition home or self-care (01) ==
LOC: ANHLAB 08:18
PROVIDERS: PCP Family Medicine; Visit Provider Nurse Practitioner Adult Health
DX: Z51.81 Encounter for therapeutic drug level monitoring (principal); I48.19 Other persistent atrial fibrillation; Z79.01 Long term (current) use of anticoagulants
CPT/HCPCS: 36415; 85610

== ENCOUNTER 2024-06-26 16:13 | Outpatient (RCR) | payer MEDICARE, SELFPAY ==
[2024-04-15 17:37] LABS: Prothrombin Time 23.1 Seconds (11.1-14.7)
[2024-05-06 17:33] LABS: INR 1.9; Prothrombin Time 22.1 Seconds (11.1-14.7)
[2024-06-26 16:56] LABS: INR 2.5; Prothrombin Time 27.6 Seconds (11.1-14.7)
== END 2024-07-14 23:59 | disposition home or self-care (01) ==
LOC: ANHLAB 16:13
PROVIDERS: PCP Family Medicine; Visit Provider Nurse Practitioner Adult Health
DX: Z51.81 Encounter for therapeutic drug level monitoring (principal); I48.19 Other persistent atrial fibrillation; Z79.01 Long term (current) use of anticoagulants
CPT/HCPCS: 36415; 85610

== ENCOUNTER 2024-07-21 13:08 | Emergency (ER) | payer MEDICARE, SELFPAY ==
[2024-07-21 13:10] VITALS: BP 157/55; PULSE 62; RESP 16; TEMP 37; O2SAT 94
--- NOTE | 2024-07-21 13:34 | ED.FEMALEGU ---
HPI - Female Genitourinary General Chief complaint: Urogenital-Female Stated complaint: Urinary Problem Time Seen by Provider: 07/21/24 13:42 Source: patient and RN notes reviewed Mode of arrival: ambulatory Limitations: no limitations History of Present Illness HPI Narrative: 69-year-old female presents with concern for urinary tract infection. She reports 4 day history symptoms of frequency, urgency, dysuria. She reports back pain. She denies fever, body aches, chills, sweats. She denies nausea, vomiting, abdominal pain. Reports history of urinary tract infections. Reports she has an appoint with urologist in July MD elicited complaint: UTI Related Data Home Medications Medication Instructions Recorded Confirmed metformin 1,000 mg tablet 1,000 mg PO Q12H 09/06/20 07/21/24 simvastatin 40 mg tablet 40 mg PO HS 09/06/20 07/21/24 sitagliptin phosphate 100 mg 100 mg PO HS 09/06/20 07/21/24 tablet (Januvia) ascorbic acid (vitamin C) 500 mg 500 mg PO HS 10/18/20 07/21/24 tablet levothyroxine 75 mcg tablet 75 mcg PO DAILY 11/14/20 07/21/24 furosemide 40 mg tablet (Lasix) 40 mg PO DIRECTED 12/13/21 07/21/24 metoprolol succinate 100 mg 200 mg PO HS 12/13/21 07/21/24 tablet,extended release 24 hr (Toprol XL) aspirin 81 mg tablet,delayed 81 mg PO HS 01/31/24 07/21/24 release albuterol sulfate 90 mcg/actuation 2 puff inhalation Q4-6H PRN 07/21/24 07/21/24 aerosol inhaler Shortness Of Breath Or Wheezing empagliflozin 25 mg tablet 25 mg PO DAILY 07/21/24 07/21/24 (Jardiance) fluticasone fur. 100 mcg-umeclid 1 inh inhalation DAILY 07/21/24 07/21/24 62.5 mcg-vilant 25 mcg inhalat.powder (Trelegy Ellipta) gabapentin 600 mg tablet 600 mg PO DAILY 07/21/24 07/21/24 glipizide 5 mg tablet 5 mg PO BID 07/21/24 07/21/24 losartan 25 mg tablet 25 mg PO DAILY 07/21/24 07/21/24 paroxetine HCl 40 mg tablet 40 mg PO DAILY 07/21/24 07/21/24 tramadol 50 mg tablet 50 mg PO Q6H PRN Pain (Scale Score 07/21/24 07/21/24 4-6) Allergies Allergy/AdvReac Type Severity Reaction Status Date / Time cefazolin Allergy Intermediate wheezing, Verified 07/21/24 13:28 rash lisinopril AdvReac Mild Cough Verified 07/21/24 13:28 Review of Systems Review of Systems: CONSTITUTIONAL: Denies malaise, chills, sweats, or fever. CARDIOVASCULAR: Denies chest pain, palpitations, or edema. RESPIRATORY: Denies cough or dyspnea. GASTROINTESTINAL: Denies abdominal pain, nausea, vomiting, diarrhea GENITOURINARY: Reports dysuria, frequency, urgency, suprapubic pressure. Reports flank pain. Denies hematuria. SKIN: Denies rash or itching. MUSCULOSKELETAL: Reports back pain. Denies myalgia. All systems reviewed & are unremarkable except as noted in HPI and below PMFSH Past Medical History Medical History (Updated 07/21/24 @ 13:46 by La Solomon NP) Atrial fibrillation Carotid artery disease Constipation Coronary artery disease Depression with anxiety Diaphragmatic paralysis Left side. Hyperlipidemia Hypertension Hypothyroidism Systolic congestive heart failure Echo on 09/08/2020 showed moderate left ventricular systolic dysfunction with an EF of 35%. At that time a thrombus was also noted in left atrial appendage and a small AST was also noted. Thrombus of left atrial appendage (~09/08/20) Still present on RANDALL dated 10/19/2020, patient switch from Eliquis to warfarin. Type 2 diabetes mellitus Hemoglobin A1c was 7.2% in August 2020. Surgical History Surgical History History of cardiac catheterization History of coronary artery bypass graft (~02/2014) History of left common carotid artery stent placement History of right-sided carotid endarterectomy Family History Family History Mother Heart disease Mother of an acute [place] at age 42. Father Cancer Sibling Brain tumor Social History Social History Social History: The patient lives in [place]. 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 Former smoker. Endorses marijuana use. No alcohol abuse. She designates her son, Cristhian Barreto, as her surrogate decision maker and she wishes to be a full code. Smoking packs per day: 2 Smoking cigarettes per day: 40.0 Years smoked: 48 Smoking pack-years: 96.00 Smoking status: Former smoker Alcohol intake: former Substance use: current Substance use type: marijuana Other substance usage details: 2-3 times per week smokes Last use: yesterday Do You Feel Safe in your Home?: Yes Lack of Transportation: No Lack of Food: Never True Current Housing: I Have Housing Concerned About Future Housing: No Difficulty Paying Gas/Electric Bills: No Difficulty Paying for Meds: No Currently Unemployed: No Education: Grade School Difficulty w/ Childcare or Family Care: No Living arrangements: alone Gender identity (if verbalized by the patient): Female Spiritual care concerns: No Comments At time of signature, agree with nursing past medical, surgical, social and family history. There is no relevant family history pertinent to the presenting complaint Exam Narrative: GENERAL: Well-appearing, well-nourished, and in no acute distress. HEAD: Normocephalic. EYES: PERRLA, conjunctivae clear. NECK: Supple. No lymphadenopathy CHEST: Clear to auscultation. No respiratory distress. HEART: Regular rate and rhythm. ABDOMEN: Soft, nontender upon palpation, nondistended, normal active bowel sounds, no palpable or pulsatile masses, no guarding. No CVA tenderness SKIN: Warm, dry, no rash. NEURO: Alert and oriented x3. PSYCH: Normal mood and affect Course Course Emergency Course: Patient is aware of diagnosis, understands and agrees to treatment plan. Anticipatory guidance given. Patient agrees to follow-up as directed and is aware of reasons to seek care at the emergency department. Portions of this record may have been created with voice recognition software Level of Care: Express Care Visit Vital Signs Vital signs: Vital Signs Temperature 98.6 F 07/21/24 13:10 Pulse Rate 62 07/21/24 13:10 Respiratory Rate 16 07/21/24 13:10 Blood Pressure 157/55 H 07/21/24 13:10 Pulse Oximetry 94 07/21/24 13:10 Oxygen Delivery Room Air 07/21/24 13:10 Temperature 98.6 F 07/21/24 13:10 Pulse Rate 62 07/21/24 13:10 Respiratory Rate 16 07/21/24 13:10 Blood Pressure 157/55 H 07/21/24 13:10 Pulse Oximetry 94 07/21/24 13:10 Oxygen Delivery Room Air 07/21/24 13:10 Reviewed. MDM - Female Genitourinary MDM Narrative Medical decision making narrative: Exam findings and UA show no acute concerns or changes; patient is non-toxic appearing and is in no distress. Patient is appropriate for outpatient treatment and follow-up. Differential Diagnosis Differential diagnosis: Likely urinary tract infection and cystitis Critical Care Time Critical Care Time Critical Care Time: No Discharge Plan Discharge Clinical Impression: Urinary tract infection Patient Disposition: Home, Self-Care Condition: Stable Instructions: Antibiotic Form, Urinary Tract Infection in Women (ED) Additional Instructions: We will send a urine culture to the lab; if the culture identifies an organism that the prescribed antibiotic will not treat, you will receive a phone call from an urgent care staff member and an appropriate antibiotic will be prescribed. -Your symptoms should begin to improve within a day of starting antibiotics. But you should finish all the antibiotic pills you get. Otherwise your infection might come back. -Also recommend: increase water intake. Tylenol/ibuprofen as needed for pain or fever -Follow-up with your primary care provider for urine recheck or seek ER visit if condition worsens with high fever, nausea, vomiting and severe back pain. Prescriptions: New amoxicillin-pot clavulanate 875-125 mg tablet 1 tablet PO Q12H 10 Days Qty: 20 0RF No Action levothyroxine 75 mcg Tablet 75 mcg PO DAILY paroxetine HCl 40 mg tablet 40 mg PO DAILY Jardiance 25 mg tablet 25 mg PO DAILY glipizide 5 mg tablet 5 mg PO BID Trelegy Ellipta 100-62.5-25 mcg blister with device 1 inh INHALATION DAILY gabapentin 600 mg tablet 600 mg PO DAILY albuterol sulfate 90 mcg/actuation HFA aerosol inhaler 2 puff INHALATION Q4-6H PRN (Reason: Shortness Of Breath Or Wheezing) tramadol 50 mg tablet 50 mg PO Q6H PRN (Reason: Pain (Scale Score 4-6)) losartan 25 mg tablet 25 mg PO DAILY simvastatin 40 mg tablet 40 mg PO HS metformin 1,000 mg tablet 1,000 mg PO Q12H Januvia 100 mg Tablet 100 mg PO HS ascorbic acid (vitamin C) 500 mg Tablet 500 mg PO HS warfarin 2 mg Tablet 3 mg PO QPM Qty: 30 0RF Rx Instructions: Take 1.5 tablets (3 mg) by mouth every Sun, Mon, , Th and Sat. Take 2 tablets (4 mg) by mouth every Sun and Fri. metoprolol succinate [Toprol XL] 100 mg tablet extended release 24 hr 200 mg PO HS furosemide [Lasix] 40 mg tablet 40 mg PO DIRECTED Rx Instructions: Takes 1 tablet by mouth Sunday and Sunday's in AM until further recommendation from Cardiology aspirin 81 mg tablet,delayed release (DR/EC) 81 mg PO HS Rx Instructions: Take 1 tablet by mouth every morning until further recommendation from Cardiology Follow-up/Referrals: Maria Teresa,LATRELL Falcon [Primary Care Provider] - Time of Disposition: 13:48
[2024-07-21 13:46] LABS: EDUAAPPEAR Cloudy; EDUABILI Negative (Negative); EDUABLOOD 3+ (Negative); EDUACOLOR1 Yellow; EDUAGLUCOSE 2+ (Negative); EDUAKETONE Negative (Negative); EDUALEUKO Trace (Negative); EDUANITRATE Negative (Negative); EDUAPROTEIN 3+ (Negative); EDUASPGRAVITY 1.025
== END 2024-07-21 13:50 | disposition home or self-care (01) ==
PROVIDERS: Emergency Provider Nurse Practitioner; PCP Physician Assistant
DX: N39.0 Urinary tract infection, site not specified (principal); B96.20 Unspecified Escherichia coli [E. coli] as the cause of diseases classified elsewhere; Z87.891 Personal history of nicotine dependence; F12.90 Cannabis use, unspecified, uncomplicated; I48.91 Unspecified atrial fibrillation; I25.10 Atherosclerotic heart disease of native coronary artery without angina pectoris; I11.0 Hypertensive heart disease with heart failure; I50.20 Unspecified systolic (congestive) heart failure; E11.9 Type 2 diabetes mellitus without complications; Z79.84 Long term (current) use of oral hypoglycemic drugs; E78.5 Hyperlipidemia, unspecified; Z95.5 Presence of coronary angioplasty implant and graft; F41.8 Other specified anxiety disorders; Z79.82 Long term (current) use of aspirin
CPT/HCPCS: 81003; 87077; 87086; 87186; 99213; G0463

== ENCOUNTER 2024-08-23 12:30 | Emergency (ER) | payer MEDICARE, SELFPAY ==
[2024-08-23 12:32] VITALS: BP 129/74; PULSE 115; RESP 18; TEMP 36.4; O2SAT 92
--- NOTE | 2024-08-23 15:04 | ED_ITS ---
HPI - Recheck/Abnormal Lab/Rx General Chief Complaint: Recheck/Abnormal Lab/Rx Stated Complaint: abn labs Time Seen by Provider: 08/23/24 14:55 Source: patient Mode of arrival: ambulatory Limitations: no limitations History of Present Illness HPI narrative: This is a 69-year-old female who presents to the ED for chief complaint of elevated INR on outpatient lab draw. She takes Coumadin regularly. She was given Bactrim recently for UTI thinks that this may have affected her INR. Patient states that she is completely asymptomatic. Reports that her urinary symptoms have subsided. She has no bleeding symptoms. Stops taking her warfarin this morning. Related Data Home Medications ?Medication ?Instructions ?Recorded ?Confirmed ?Last Taken ?Type metformin 1,000 mg tablet 1,000 mg PO Q12H 09/06/20 07/21/24 01/31/24 History simvastatin 40 mg tablet 40 mg PO HS 09/06/20 07/21/24 01/30/24 21:00 History sitagliptin phosphate 100 mg 100 mg PO HS 09/06/20 07/21/24 01/30/24 21:00 History tablet (Januvia) ascorbic acid (vitamin C) 500 mg 500 mg PO HS 10/18/20 07/21/24 01/30/24 21:00 History tablet levothyroxine 75 mcg tablet 75 mcg PO DAILY 11/14/20 07/21/24 01/31/24 History furosemide 40 mg tablet (Lasix) 40 mg PO DIRECTED 12/13/21 07/21/24 12/05/22 09:00 History metoprolol succinate 100 mg 200 mg PO HS 12/13/21 07/21/24 01/30/24 21:00 History tablet,extended release 24 hr (Toprol XL) aspirin 81 mg tablet,delayed 81 mg PO HS 01/31/24 07/21/24 01/30/24 21:00 History release albuterol sulfate 90 mcg/actuation 2 puff inhalation Q4-6H PRN 07/21/24 07/21/24 Unknown History aerosol inhaler Shortness Of Breath Or Wheezing empagliflozin 25 mg tablet 25 mg PO DAILY 07/21/24 07/21/24 Unknown History (Jardiance) fluticasone fur. 100 mcg-umeclid 1 inh inhalation DAILY 07/21/24 07/21/24 Unknown History 62.5 mcg-vilant 25 mcg inhalat.powder (Trelegy Ellipta) gabapentin 600 mg tablet 600 mg PO DAILY 07/21/24 07/21/24 Unknown History glipizide 5 mg tablet 5 mg PO BID 07/21/24 07/21/24 Unknown History losartan 25 mg tablet 25 mg PO DAILY 07/21/24 07/21/24 Unknown History paroxetine HCl 40 mg tablet 40 mg PO DAILY 07/21/24 07/21/24 Unknown History tramadol 50 mg tablet 50 mg PO Q6H PRN Pain (Scale Score 07/21/24 07/21/24 Unknown History 4-6) Allergies Allergy/AdvReac Type Severity Reaction Status Date / Time cefazolin Allergy Intermediate wheezing, Verified 08/23/24 15:06 rash lisinopril AdvReac Mild Cough Verified 08/23/24 15:06 Review of Systems Review of Systems: All systems as dictated in [facility] Past Medical History Medical History (Updated 08/23/24 @ 15:19 by Bonifacio Mayorga PA-C) Constipation Atrial fibrillation Systolic congestive heart failure Echo on 09/08/2020 showed moderate left ventricular systolic dysfunction with an EF of 35%. At that time a thrombus was also noted in left atrial appendage and a small AST was also noted. Thrombus of left atrial appendage (~09/08/20) Still present on RANDALL dated 10/19/2020, patient switch from Eliquis to warfarin. Carotid artery disease Coronary artery disease Diaphragmatic paralysis Left side. Depression with anxiety Hypothyroidism Hyperlipidemia Type 2 diabetes mellitus Hemoglobin A1c was 7.2% in August 2020. Hypertension Surgical History Surgical History History of right-sided carotid endarterectomy History of left common carotid artery stent placement History of cardiac catheterization History of coronary artery bypass graft (~02/2014) Family History Family History Mother Heart disease Mother of an acute MT at age 42. Father Cancer Sibling Brain tumor Social History Social History Social History: The patient lives in [place]. 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 Former smoker. Endorses marijuana use. No alcohol abuse. She designates her son, Cristhian Barreto, as her surrogate decision maker and she wishes to be a full code. Smoking packs per day: 2 Smoking cigarettes per day: 40.0 Years smoked: 48 Smoking pack-years: 96.00 Smoking status: Former smoker Alcohol intake: former Substance use: current Substance use type: marijuana Other substance usage details: 2-3 times per week smokes Last use: yesterday Do You Feel Safe in your Home?: Yes Lack of Transportation: No Lack of Food: Never True Current Housing: I Have Housing Concerned About Future Housing: No Difficulty Paying Gas/Electric Bills: No Difficulty Paying for Meds: No Currently Unemployed: No Education: Grade School Difficulty w/ Childcare or Family Care: No Living arrangements: alone Gender identity (if verbalized by the patient): Female Spiritual care concerns: No Exam Narrative: GENERAL: Well-appearing, well-nourished, and in no acute distress. HEAD: Normocephalic, atraumatic. EYES: PERRLA and EOMI. ENT: Nares clear, no rhinorrhea or epistaxis. Mucous membranes moist. Oropharynx without tonsillar hypertrophy exudate or other lesions. NECK: Supple. No adenopathy or masses. CHEST: No respiratory distress. Clear to auscultation. No wheezes rales or rhonchi HEART: Regular rate and rhythm. No murmur heard. Normal peripheral pulses. ABDOMEN: Soft, nontender, nondistended, normal active bowel sounds. MSK: Normal range of motion. No edema. SKIN: Warm, dry, no rash. NEURO: Alert and oriented x4. No focal deficits. PSYCH: Normal mood and affect. Course Vital Signs Vital signs: Vital Signs Temperature 97.5 F L 08/23/24 12:32 Pulse Rate 115 H 08/23/24 12:32 Respiratory Rate 18 08/23/24 12:32 Blood Pressure 129/74 08/23/24 12:32 Pulse Oximetry 92 08/23/24 12:32 Temperature 97.5 F L 08/23/24 12:32 Pulse Rate 80 08/23/24 15:07 Respiratory Rate 15 08/23/24 15:07 Blood Pressure 109/74 08/23/24 15:07 Pulse Oximetry 92 08/23/24 15:07 MDM - Recheck/Abnormal Lab/Rx MDM Narrative Medical decision making narrative: This is a 69-year-old female who presents to the ED for elevated INR. Vitals are normal. Exam is benign. She has no bleeding symptoms or medical complaints at this time. Lab work from yesterday shows INR 7.2. Due to patient being in the 4-10 range and not having any bleeding symptoms, it was advised that she hold her warfarin. I advised that she stop taking Bactrim for UTI as she had already completed at a course of Augmentin previously. Feel that the risks of Bactrim for her would outweigh the benefits. Encouraged her to follow-up with her prescribing doctor to recheck INR in a couple of days to get her below 3. Patient will be discharged in stable condition. Supportive measures discussed and return precautions given. Patient is understanding and agreeable with plan for discharge with PCP follow-up. Discharge Plan Discharge Clinical Impression: Supratherapeutic international normalized ratio (INR) Patient Disposition: Home, Self-Care Condition: Stable Instructions: Antibiotic Form Additional Instructions: Your evaluated for high INR today. Your exam is reassuring. Please hold your warfarin until otherwise directed by your PCP. This should be re checked within the next 2-3 days. Please also stop taking her Bactrim as the UTI should have been fully treated by now. Return to the ER if you have any new or worsening symptoms including bleeding symptoms or diarrhea. Patient Language: [place] Islander Prescriptions: No Action levothyroxine 75 mcg Tablet 75 mcg PO DAILY paroxetine HCl 40 mg tablet 40 mg PO DAILY Jardiance 25 mg tablet 25 mg PO DAILY glipizide 5 mg tablet 5 mg PO BID Trelegy Ellipta 100-62.5-25 mcg blister with device 1 inh INHALATION DAILY gabapentin 600 mg tablet 600 mg PO DAILY albuterol sulfate 90 mcg/actuation HFA aerosol inhaler 2 puff INHALATION Q4-6H PRN (Reason: Shortness Of Breath Or Wheezing) tramadol 50 mg tablet 50 mg PO Q6H PRN (Reason: Pain (Scale Score 4-6)) losartan 25 mg tablet 25 mg PO DAILY amoxicillin-pot clavulanate 875-125 mg tablet 1 tablet PO Q12H 10 Days Qty: 20 0RF simvastatin 40 mg tablet 40 mg PO HS metformin 1,000 mg tablet 1,000 mg PO Q12H Januvia 100 mg Tablet 100 mg PO HS ascorbic acid (vitamin C) 500 mg Tablet 500 mg PO HS warfarin 2 mg Tablet 3 mg PO QPM Qty: 30 0RF Rx Instructions: Take 1.5 tablets (3 mg) by mouth every Sun, Mon, , Th and Sat. Take 2 tablets (4 mg) by mouth every Sun and Fri. metoprolol succinate [Toprol XL] 100 mg tablet extended release 24 hr 200 mg PO HS furosemide [Lasix] 40 mg tablet 40 mg PO DIRECTED Rx Instructions: Takes 1 tablet by mouth Sunday and Sunday's in AM until further recommendation from Cardiology aspirin 81 mg tablet,delayed release (DR/EC) 81 mg PO HS Rx Instructions: Take 1 tablet by mouth every morning until further recommendation from Cardiology Follow-up/Referrals: Maria Teresa,LATRELL Falcon [Primary Care Provider] - Time of Disposition: 15:19
[2024-08-23 15:07] VITALS: BP 109/74; PULSE 80; RESP 15; O2SAT 92
--- OUTSIDE RECORDS SUMMARY | 2024-08-30 18:47 | XMS_ITS | Encounter Summary ---
Author Organization [facility] Address [address] [place] [address] Phone Care Team Providers Care Enrobing Machine Operator Name Role Phone Bhargavi Morel PAC Primary Care Provider + Flaquito Hurd MD Unavailable Wes Petty MD Unavailable Reason for Visit * Reason Onset Date Comments Urinary Pain 04/30/2024 Encounter Details Date Type Department Care Team (Late st Contact Info) Description 04/30/2024 Nurse Triage [facility] [address] [place] [address] Bhargavi Morel, PAC [address] [place] [address] Urinary Pain Social History Tobacco Use Types Packs/Day Years Used Date Smoking Tobacco: Former Cigarettes 2 35 Smokeless Tobacco: Never Alcohol Use Standard Drinks/Week Comments Not Currently 0 (1 standard drink = 0.6 oz pur e alcohol) [facility] Utilities Answer Date Recorded In the past 12 months has [employer] electric, gas, oil, or water company threatened to shut off services in your home? Patient declined 03/18/2024 Social Connection and Isolation Panel [NHANES] A nswer Date Recorded In a typical week, how many times do you talk on the phone with family, friends, or neighbors? Patient declined 03/18/2024 How often do you get togethe r with friends or relatives? Patient declined 03/18/2024 How often do you attend hindu or samaritan serv ices? Patient declined 03/18/2024 Do you belong to any clubs o r organizations such as hindu groups, unions, fraternal or athletic groups, or school groups? Patient declined 03/18/2024 How often do you attend meet ings of the clubs or organizations you belong to? Patient declined 03/18/2024 Are you , , di vorced, , never , or living with a partner? Patient declined 03/18/2024 AUDIT-C Answer Date Recorded Q1: How often do you have a drink containing alc ohol? Patient declined 03/18/2024 Q2: How many drinks containi ng alcohol do you have on a typical day when you are drinking? Patient declined 03/18/2024 Q3: How often do you have si x or more drinks on one occasion? Patient declined 03/18/2024 Overall Financial Resource Strain (CARDIA) Answe r Date Recorded How hard is it for you to pa y for the very basics like food, housing, medical care, and heating? Patient declined 03/18/2024 PHQ-2 Answer Date Recorded Total Score - Questions 1-9 0 09[facility] [facility] - Occupational Stress Questionnaire Answer Date Recorded Do you feel stress - tense, restless, nervous, or anxious, or unable to sleep at night because your mind is troubled all the time - these days? Patient declined 03/18/2024 Exercise Vital Sign Answer Date Recorde d On average, how many days pe r week do you engage in moderate to strenuous exercise (like a brisk walk)? Patient declined On average, how many minutes do you engage in exercise at this level? Patient declined 03/18/2024 Hunger Vital Sign Answer Date Recorded Within the past 12 months, y ou worried that your food would run out before you got the money to buy more. Patient declined Within the past 12 months, t he food you bought just didn't last and you didn't have money to get more. Patient declined PRAPARE - Transportation Answer Date Re corded In the past 12 months, has l ack of transportation kept you from medical appointments or from getting medications? Patient declined 03/18/2024 In the past 12 months, has l ack of transportation kept you from meetings, work, or from getting things needed for daily living? Patient declined 03/18/2024 Housing Stability Vital Sign Answer Kwan e Recorded In the last 12 months, was t here a time when you were not able to pay the mortgage or rent on time? No 01/16/2024 In the last 12 months, how many places have you lived? 1 01/16/2024 In the last 12 months, was t here a time when you did not have a steady place to sleep or slept in a long term (including now)? No 01/16/2024 Housing Stability Vital Sign Answer Kwan e Recorded In the last 12 months, was t here a time when you were not able to pay the mortgage or rent on time? Patient declined 03/18/20 24 In the past 12 months, how m any times have you moved where you were living? 0 03/18/2024 At any time in the past 12 m [facility], were you homeless or living in a long term (including now)? Patient declined 03/18/2024 Education Answer Date Recorded What is the highest level of school you have completed or the highest degree you have received? 11th grade 04/10/2023 Sexually Active Control Partners Comments Not Currently Comments No Sex and Gender Information Value Date Recorded Sex Assigned at Female 04/09/2023 4:28 PM CDT Legal Sex Female 7:50 PM CDT Gender Identity Female 04/09/2023 4:28 PM CDT Sexual Orientation Not on file documented as of this encounter Miscellaneous Notes * Telephone Encounter - Cristine Nolen RN - 04/30/2024 4:16 PM CDT Called and spoke with patient, she stated that she understood. And thank you * Addendum Note - Bhargavi Morel PAC - 04/30/2024 12:52 PM CDTAddended by: BHARGAVI MOREL on: 04/30/2024 12:52 PM Modules accepted: Orders * Telephone Encounter - Bhargavi Morel PAC - 04/30/2024 12:51 PM CDT Urine test ordered, would have do at hospital Antibiotic sent in, follow up if no improvements If severe pain, fever, nausea/vomiting, go to ER Recommend get INR checked * Telephone Encounter - Lenora Clements RN - 04/30/2024 8:40 AM CDT SITUATION: dysuria BACKGROUND: past week History of UTI's ASSESSMENT: Symptom Description / Location: dysuria past week- denies fever and denies blood in her urine.Does have back pain. Pain (0-10): dysuria 9/10 Temp: none Treatment / Response: patient states she cannot come in today - asking for a urine culture to be ordered outpatient please. Please advise and call her back -thanks. RECOMMENDATION: See care advice and disposition for Guideline First positive answer recorded, all responses to prior questions were negative. If symptoms increase, change or if new symptoms develop, call your HCP or call back. Recommendations were based on caller information and is not a diagnosis. Verified and reviewed all triage information with caller. Reason for Disposition Side (flank) or lower back pain present Protocols used: Urination Pain - Female-A-OH Standing order available * Telephone Encounter - Bren Estrada - 04/30/2024 8:38 AM CDT Symptom: Urine Symptoms Outcome: Schedule an urgent appointment within same day Reason: Pain when passing urine (peeing) The caller accepted this outcome Caller denied: * Can't pass urine (can't pee) documented in this encounter Plan of Treatment Upcoming Encounters Date Type Department Care Team (Late st Contact Info) Description 10/29/2024 9:30 AM FOOT MITER OPERATOR Office Visit [facility] [address] [place] [address] Bhargavi Morel PAC [address] [place] [address] Scheduled Orders Name Type Priority Associated Diagnoses Orde r Schedule URINALYSIS REFLEX IF INDICATED BY ABNORMAL RESULTS Lab Routine Dysuria Expected: 04/30/2024, Expires: 10/28/2024 documented as of this encounter Visit Diagnoses Diagnosis Dysuria- Primary documented in this encounter Additional Health Concerns Assessment Noted Time PHQ-9 Depression Total Score: 0 10/17/19 12:52 PM FOOT MITER OPERATOR documented as of this encounter Care Teams Enrobing Machine Operator Relationship Specialty Start Date End Date Bhargavi Morel PAC [address] [place] [address] PCP - General Physician Customer Care Consultant 07/22/23 Flaquito Hurd MD [address] [place] [address] Consulting Physician Pulmonary Disease 11/09/22 Wes Petty MD [address] [facility] [address] [id number] Consulting Physician Urology 01/18/24 documented as of this encounter
--- OUTSIDE RECORDS SUMMARY | 2024-08-30 18:47 | XMS_ITS | Clinical Summary ---
Author Organization [facility] Address [address] [place] [address] Phone Care Team Providers Care Frame Repairer Name Role Phone Bhargavi Morel ARAM Primary Care Provider + Flaquito Hurd MD Unavailable Wes Petty MD Unavailable Allergies Active Allergy Reactions Criticality Noted Date Comments Cefazolin Rash,Shortness of Breath Medium 11/30/2020 Lisinopril Other (see Comments) Low 05/29/2019 Medications Ascorbic Acid 500 MG Chewable Tablet Take 500 mg by mouth. Active aspirin EC 81 MG Tablet Delayed Response Take 81 mg by mouth. Active warfarin (COUMADIN) 2 MG Tablet Take 3 mg by mouth. Takes 2mg one day and then the next 1.5mg alternating. 90 Tablet 12/01/19 21 Active Glucose Blood StripIndicatio ns:Type 2 diabetes mellitus without complication, without long-term current use of insulin (HCC) Diagnosis: Diabetes type 2 Blood testing frequency: once a day 100 Strip 3 02/24/20 21 Active metoprolol Succinate (TOPROL-XL) 100 MG TABLET SR 24 HR Take 2 Tablets by mouth daily. 135 Tablet 1 05/04/20 21 Active furosemide (LASIX) 40 MG Tablet Take 0.5 Tablets by mouth daily. 90 Tablet 1 05/04/20 21 Active VITAMIN D PO Take by mouth daily. Active losartan (COZAAR) 25 MG Tablet 06/13/20 21 Active simvastatin (ZOCOR) 40 MG Tablet 09/23/19 23 Active Blood Glucose Monitoring Suppl DeviceIndicati ons:Type 2 diabetes mellitus without complication, without long-term current use of insulin ([facility]) glDiagnosis: Diabetes type 2 Blood testing frequency: once a day 1 Each 04/10/20 23 Active betamethasone valerate (VALISONE) 0.1 % Ointment APPLY TWICE DAILY TO AREA ON LEGS 45 g 3 01/07/20 24 Active Additional Information Patient not taking.Reported on 08/08/2024 levothyroxine (SYNTHROID) 75 MCG TabletIndicati ons:Hypothyroi dism, unspecified type Take 1 Tablet by mouth daily. 90 Tablet 1 01/16/20 24 Active empagliflozin (JARDIANCE) 25 MG TabletIndicati ons:Type 2 diabetes mellitus without complication, without long-term current use of insulin ([facility]) Take 1 Tablet by mouth daily. 90 Tablet 3 01/21/20 24 Active docusate sodium 100 MG Capsule Take by mouth daily as needed for Constipation - 1st line. 02/02/20 24 Active magnesium oxide (MAG-OX) 400 MG Tablet Take 400 mg by mouth daily. Active metFORMIN (GLUCOPHAGE) 1000 MG Tablet Take 1 Tablet by mouth 2 times daily. 180 Tablet 1 04/29/20 24 Active PARoxetine (PAXIL) 40 MG Tablet Take 1 Tablet by mouth daily. 90 Tablet 1 04/29/20 24 Active Januvia 100 MG Tablet TAKE 1 TABLET BY MOUTH EVERY DAY 90 Tablet 1 06/19/20 24 Active dilTIAZem (CARDIZEM CD) 120 MG CAPSULE SR 24 HR Take 120 mg by mouth daily. Active albuterol (Ventolin HFA) 108 (90 Base) MCG/ACT Aerosol Solution INHALE 2 PUFFS EVERY 4-6 HOURS NEEDED FOR SHORTNESS OF BREATH OR WHEEZING 18 g 2 06/25/20 24 Active gabapentin (NEURONTIN) 600 MG TabletIndicati ons:Restless legs syndrome (RLS) TAKE 1 TABLET BY MOUTH DAILY 90 Tablet 07/23/20 24 Active traMADol (ULTRAM) 50 MG TabletIndicati ons:Pain and swelling of right knee TAKE 1 TABLET BY MOUTH EVERY 6 HOURS NEEDED FOR MODERATE TO SEVERE PAIN 28 Tablet 07/31/20 24 Active glipiZIDE (GLUCOTROL) 5 MG Tablet Take 1 Tablet by mouth 2 times daily. Take with meals 180 Tablet 1 08/16/20 24 Active Trelegy Ellipta 100-62.5-25 MCG/ACT AEROSOL POWDER, BREATH ACTIVATED INHALE 1 PUFF BY MOUTH DAILY 60 Each 1 08/24/20 24 Active glipiZIDE (GLUCOTROL) 5 MG Tablet TAKE 1/2 TABLET BY MOUTH DAILY, AFTER BREAKFAST 90 Tablet 1 12/26/19 24 2023 Discontinued(R eorder) Fluticasone-Um eclidin-Vilant (Trelegy Ellipta) 100-62.5-25 MCG/ACT AEROSOL POWDER, BREATH ACTIVATED take 1 Puff by inhalation daily. 60 Each 1 06/25/20 24 2023 Discontinued clotrimazole (LOTRIMIN) 1 % Cream Apply 3 times daily for 10 days. Application Site: Perigenital area and skin folds (Description and Location) 14 g 2 08/13/20 24 2023 sulfamethoxazo le-trimethopri m DS (BACTRIM DS, SEPTRA DS) 800-160 MG Tablet Take 1 Tablet by mouth 2 times daily for 10 days. 20 Tablet 08/15/20 24 2023 Active Problems Problem Noted Date Diagnosed Date Acute pyelonephritis 06/10/2021 Sepsis 06/10/2021 Acute pain of right knee 03/17/2021 Overview (03/17/2021): questions bakers cyst. Pain and swelling of right knee 03/17/2021 AMOR (obstructive sleep apnea) 12/28/2020 Restless legs syndrome (RLS) 12/28/2020 Atrial thrombus 11/30/2020 Permanent atrial fibrillation 11/30/2020 Hx of CABG 11/30/2020 Daytime somnolence 11/30/2020 Anxiety 11/30/2020 Type 2 diabetes mellitus wit hout complication, without long-term current use of insulin 11/30/2020 Essential (primary) hypertension 11/30/2020 Dyslipidemia 11/30/2020 Encounters Date Type Department Care Team Description 08/26/2024 Telephone [facility] [address] [place] [phone] Bhargavi Morel, PAC Anticoagulation Monitoring 08/25/2024 1:10 PM [employer] Lab [facility] [address] [address] [facility] Lab/Ancillary Permanent atrial fibrillation (HCC) Discharge Disposition: Discharged to home or Selfcare 08/25/2024 Travel 08/25/2024 Telephone [facility] [address] [place] [phone] Bhargavi Morel, PAC Advice Only 08/23/2024 Refill [facility] [address] [place] [address] Bhargavi Morel, ARAM Medication Refill 08/15/[address] [facility] [address] [place] [address] Ernesto Patel MD 08/15/2024 Telephone [facility] [address] [place] [address] Bhargavi Morel, PAC Results 08/14/2024 Telephone [facility] [place] [address] Bhargavi Morel, ARAM Medication Refill 08/14/2024 Telephone [facility] [address] [place] [address] Wes Petty MD 08/13/2024 8:30 AM [employer] Office Visit [facility] [address] [place] [address] Wes Petty MD Frequent UTI (Primary Dx) Discharge Disposition: Discharged to home or Selfcare 08/13/2024 Travel 08/08/2024 Nurse Triage [facility] [address] [place] [phone] Bhargavi Morel, PAC Urinary Problem; Vaginal Pain 07/31/2024 Refill [facility] [address] [place] [address] Shanae Jesus APRN, HOUSE PARENT Medication Refill 07/23/2024 Refill [facility] [address] [place] [address] Bhargavi Morel, ARAM Medication Refill 07/21/2024 Nurse Triage [facility] [place] [address] [place] [phone] Bhargavi Morel, ARAM Appointment; Urinary Tract Infection 06/30/2024 Refill [facility] [address] [place] [address] Bhargavi Morel, ARAM Medication Refill 06/25/2024 10:10 AM CDT Lab [facility] [address] [address] [facility] Type 2 diabetes mellitus without complication, without long-term current use of insulin (HCC); Hypothyroidism, unspecified type Discharge Disposition: Discharged to home or Selfcare 06/25/2024 9:15 AM CDT Office Visit [facility] [address] [place] [address] Bhargavi Morel, ARAM Type 2 diabetes mellitus without complication, without long-term current use of insulin (HCC) (Primary Dx); Restless legs syndrome (RLS); Hypothyroidism, unspecified type; Sleep apnea, unspecified type; Low oxygen saturation; Chronic shortness of breath; Frequent UTI Discharge Disposition: Discharged to home or Selfcare 06/25/2024 Telephone [facility] [address] [place] [address] Bhargavi Morel, PAC Results 06/25/2024 Travel 06/19/2024 Refill [facility] [address] [place] [address] Bhargavi Morel, ARAM Medication Refill from Last 3 Months Immunizations Immunization Administration Dates Next Due Covid-19 Vaccine, Vector-nr, Rs-ad26, Pf, 0.5 Ml (NAINA/J&J) 10/29/2020 Covid-19, Mrna, Lnp-s, Bival ent, Moderna, 50 Mcg or 25 mcg dose 09/17/2022 Influenza Vaccine, Quadrivalent, PF 05/04/2022,0 05/04/2021 Influenza, High-dose, Quadrivalent 06/28/2020 Influenza, Injectable, Quadrivalent 08/07/2016 Influenza, Quadrivalent, Adjuvanted 07/11/2023 Influenza, Trivalent, Adjuvanted, PF 06/25/2024 Pneumococcal Vaccine - 13 Valent 05/04/2021 Pneumococcal Vaccine Adult - 23 Valent 4 Pneumococcal conjugate PCV20 , polysaccharide VCO670 conjugate, adjuvant, PF 05/04/2022 RSV, Recombinant, Protein Suarez bunit Rsvpref, Adjuvant Recon (Arexvy) 06/17/2023 TDAP Vaccine 03/06/2016 Family History Medical History Relation Name Comments Cancer Father Congestive Heart Failure Mother Hypertension Mother Relation Name Status Comments Father Mother Social History Tobacco Use Types Packs/Day Years Used Date Smoking Tobacco: Former Cigarettes 2 35 Smokeless Tobacco: Never Alcohol Use Standard Drinks/Week Comments Not Currently 0 (1 standard drink = 0.6 oz pur e alcohol) [facility] Utilities Answer Date Recorded In the past 12 months has [email or web address], [employer], or water [employer] threatened to shut off services in your home? Patient declined 03/18/2024 Social Connection and Isolation Panel [NHANES] A nswer Date Recorded In a typical week, how many times do you talk on the phone with family, friends, or neighbors? Patient declined 03/18/2024 How often do you get togethe r with friends or relatives? Patient declined 03/18/2024 How often do you attend worship or buddhism serv ices? Patient declined 03/18/2024 Do you belong to any clubs o r organizations such as worship groups, unions, fraternal or athletic groups, or [...] Recorded Total Score - Questions 1-9 0 05[facility] - Occupational Stress Questionnaire Answer Date Recorded [...] place to sleep or slept in a prison (including now)? No 01/16/2024 Housing Stability Vital [...] any time in the past 12 m [facility], were you homeless or living in a prison (including now)? Patient declined 03/18/2024 Education Answer [...] PM CDT Sexual Orientation Not on file Last Filed Vital Signs Vital Sign Reading Time Taken Comments Blood Pressure 132/86 08/13/2024 8:32 AM [employer]IDE [employer] SAL[employer]AN Pulse 80 08/13/2024 8:32 AM [employer]IDE [employer] SAL[employer]AN Temperature 36.3 ??C (97.4 ??F) 06/25/2024 9:14 AM CD T Respiratory Rate 20 08/13/2024 8:32 AM [employer] SAL[employer]AN Oxygen Saturation 95% 08/13/2024 8:32 AM [employer]S SALESMAN Inhaled Oxygen Concentration - - Weight 100.2 kg (221 lb) 08/13/2024 8:32 AM [employer]IDE [employer] SALESMAN Height 165.1 cm (5' 5 ) 08/13/2024 8:32 AM [employer] SAL[employer]AN Body Mass Index 36.78 08/13/2024 8:32 AM [employer] SAL[employer]AN Plan of Treatment Upcoming Encounters Date Type Department Care Team (Late st Contact Info) Description 10/29/2024 9:30 AM OUTSIDE [employer]S SALESMAN [facility] [address] [place] [address] Maria Teresa Bhargavi Goldberg, PAC [address] [place] [address] Health Maintenance Due Date Last Done Comments DEXA Bone Density 1955 Diabetes: Eye Exam 1955 Diabetes: Foot Exam 1955 Colonoscopy 01/09/2000 Colorectal Cancer Screening 01/09/2000 Cologuard 2005 Immunochemical Fecal Occult Blood 2005 Mammogram 2005 Zoster Immunization (1 of 2) 2005 SARS-COV-2 Immunization ( season) 2024 06/17/2023, 09/17/2022, 02/14/2022, Additional history exists Diabetes: Hemoglobin A1c 12/24/2024 024, 01/16/2024, 10/17/2023, Additional history exists Diabetes: Nephropathy Screening 06/25/2025 06/25/2024, 03/26/2024, 01/16/2024, Additional history exists Td Immunization Every 10 Years (Adults With 1 Tdap) 03/06/2026 03/06/2016 DTaP/Tdap/Td Immunization Discontinued 03/06/2016 Pneumococcal Immunization (50+ years) Completed 05/04/2022, 05/04/2021, 06/19/2014 Pneumococcal Immunization Combined Discontinued 05/04/2022, 05/04/2021, 06/19/2014 Respiratory Syncytial Virus (RSV) Immunization (Adult) Completed 06/17/2023 Hepatitis C Virus (HCV) Screening Completed 10/17/2023 Influenza Immunization Completed , 07/11/2023, 05/04/2022, Additional history exists Hepatitis B Immunization Aged Out No longer eligible based on patient's age to complete this topic Meningococcal Immunization (ACWY) Aged Out No longer eligible based on patient's age to complete this topic Rotavirus Immunization Aged Out No lo nger eligible based on patient's age to complete this topic Procedures Procedure Name Priority Date/Time Associated Diagnosis Comments PROTIME (PT) (PROTHROMBIN TIME) Routine 08/25/2024 12:57 PM [employer] Permanent atrial fibrillation (HCC) URINALYSIS REFLEX IF INDICATED BY ABNORMAL RESULTS Routine 08/13/2024 9:11 AM OUT[employer]IDE [employer]S SALESMAN Frequent UTI CULTURE, URINE Routine 08/13/2024 9:11 AM [employer]AN Frequent UTI POCT UA AUTOMATED W/O MICRO Routine 08/13/2024 8:41 AM [employer] SAL[employer]AN Frequent UTI DEBRA,POST-VOID RES,US,NON-IMAGING Routine 08/13/2024 8:30 AM [employer] SAL[employer]AN Frequent UTI CBC WITH AUTO DIFFERENTIAL Routine 06/25/2024 10:06 AM CDT Type 2 diabetes mellitus without complication, without long-term current use of insulin (HCC) THYROID STIMULATING HORMONE (TSH) Routine 06/25/2024 10:06 AM CDT Hypothyroidism, unspecified type MAGNESIUM (MG) Routine 06/25/2024 10:06 AM CDT Type 2 diabetes mellitus without complication, without long-term current use of insulin (HCC) HEMOGLOBIN A1C W/ ESTIMATED GLUCOSE Routine 06/25/2024 10:06 AM CDT Type 2 diabetes mellitus without complication, without long-term current use of insulin (HCC) COMPLETE BLOOD COUNT (CBC) WITH DIFF Routine 06/25/2024 10:06 AM CDT Type 2 diabetes mellitus without complication, without long-term current use of insulin (HCC) CMP (COMPREHENSIVE METABOLIC PANEL) Routine 06/25/2024 10:06 AM CDT Type 2 diabetes mellitus without complication, without long-term current use of insulin (HCC) HEPATITIS C ANTIBODY Routine 10/17/2023 1:34 PM [employer] Encounter for hepatitis C screening test for low risk patient from Last 3 Months or Most Recently Relevant to Health Maintenance Results * (ABNORMAL) PROTIME (PT) (PROTHROMBIN TIME) (08/25/2024 12:57 PM OUTSIDE [employer]S SALESMAN) Pathologist [facility] PROTIME-PATIENT 21.2(H) 11.6 - 14.8 sec 08/25/2024 4:19 PM OUTSIDE [employer]S SALESMAN [facility] INR 1.8(H) 0.9 - 1.2 08/25/2024 4:19 PM OUTSIDE [employer]S SALESMAN [facility] Comment: Therapeutic Ranges INR = 2.0-3.0: Venous thromb, atrial fib, pul embolism, tissue heart valve, ami. INR = 2.5-3.5: Mechanical heart valve Critical value for INR is >/= 4.5 Blood Venipuncture / Unknown 08/25/2024 12:57 PM [employer] 08/25/2024 12:57 PM [employer] us Sulema Page ANTIQUE CLOCKS REPAIRER, HOUSE PARENT HEMATOLOGY ORDERABLE S Final Result [facility] [address] [place] [address] * (ABNORMAL) URINALYSIS REFLEX IF INDICATED BY ABNORMAL RESULTS (08/13/2024 9:11 AM OUTSIDE PARTS SALESMAN) [facility] SPECIFIC GRAVITY 1.010 1.003 - 1.030 08/13/2024 2:04 PM [facility] URINE PH 7.0 5.0 - 9.0 08/13/2024 2:04 PM [employer] SAL[employer]AN [facility] WBC ESTERASE 25 /ul(A) Negative 08/13/2024 2:04 PM [employer]IDE [employer] SAL[employer]AN [facility] NITRITE Negative Negative 08/13/2024 2:04 PM [employer]IDE [employer] SAL[employer]AN [facility] PROTEIN, RANDOM URINE 30 mg/dL(A) Negative 08/13/2024 2:04 PM [facility] URINE GLUCOSE, QUAL 1000 mg/dL(A) Negative 08/13/2024 2:04 PM [facility] URINE KETONES Negative Negative 08/13/2024 2:04 PM [facility] UROBILINOGEN Normal Normal mg/dL 08/13/2024 2:04 PM OUTSIDE [employer]S SALESMAN [facility] URINE BLOOD 250 /uL(A) Negative anderson/ul 08/13/2024 2:04 PM [employer] SAL[employer]AN [facility] URINALYSIS COLOR Deysi 08/13/20 2:04 PM [employer]AN [facility] URINALYSIS CLARITY Clear 08/13/2024 2:04 PM [employer] [facility] WBC (Urine) 0-5 Negative, 0-5 /hpf 08/13/2024 2:04 PM [employer]AN [facility] URINE RBC'S Packed(A) Negative, 0-2 /hpf 08/13/2024 2:04 PM [employer] SAL[employer] [facility] EPITHELIAL CELLS Small amount /lpf 2023 2:04 PM [employer] SAL[employer]AN [facility] BACTERIA, URINE Few(A) Negative /hpf 08/13/2024 2:04 PM [employer] [facility] Urine (Urine Bladder) Non-Phlebotomy Collection / Unknown 08/13/2024 9:11 AM [employer]S SAL[employer]AN 08/13/2024 9:11 AM [employer] us Wes Petty MD URINE ORDERABLES Final Result [facility] [address] [place] [address] * CULTURE, URINE (08/13/2024 9:11 AM OUT[employer]IDE [employer] SALESMAN) CULTURE RESULTS KLEBSIELLA PNEUMONIAE 08/15/2024 3:40 PM [employer]IDE [employer] SAL[employer]AN [facility] Culture URINE SPECIMEN / Unknown Non-Phlebotomy Collection / Unknown 08/13/2024 9:11 AM [employer]S SAL[employer]AN 08/13/2024 9:11 AM [employer] Narrative Organism Antibiotic Method Susceptibility Klebsiella pneumoniae Ampicillin/sulbactam [facility] VITEK II 8 mcg/ml: Susceptible Klebsiella pneumoniae Cefazolin [facility] VITEK II <=4 mcg/ml: Susceptible Klebsiella pneumoniae Cefepime [facility] VITEK II <=1 mcg/ml: Susceptible Klebsiella pneumoniae Ceftriaxone [facility] VITEK II <=1 mcg/ml: Susceptible Klebsiella pneumoniae Gentamicin [facility] V[facility]K II <=1 mcg/ml: Susceptible Klebsiella pneumoniae Levofloxacin [facility] V[facility]K II <=0.12 mcg/ml: Susceptible Klebsiella pneumoniae Meropenem [facility] V[facility]K II <=0.25 mcg/ml: Susceptible Klebsiella pneumoniae Nitrofurantoin [facility] VITEK II 128 mcg/ml: Resistant Klebsiella pneumoniae Piperacillin/Tazobactam [facility] VIT EK II <=4 mcg/ml: Susceptible Klebsiella pneumoniae Tobramycin [facility] VITEK II <=1 mcg/ml: Susceptible Klebsiella pneumoniae Trimeth/Sulfamethoxazole [facility] SANDRA II <=20 mcg/ml: Susceptible us Wes Petty MD MICROBIOLOGY - GENERAL ORDERABLE S Final Result [facility] [address] [place] [address], [place] * (ABNORMAL) POCT UA AUTOMATED W/O MICRO (08/13/2024 8:41 AM [employer]) POC UA SPECIFIC GRAVITY 1.000 URINE PH 7.0 5.0 - 9.0 POC URINE LEUKOCYTES 500 /uL(A) Negative Flory/uL POC URINE NITRITE Negative Negative POC URINE PROTEIN 30 mg/dL(A) Negative mg/dL POC URINE GLUCOSE >1000 mg/dL(A) Negative, Norm mg/dL POC URINE KETONE Negative Negative mg/dL POC URINE UROBILINOGEN 1 E.U./dL (mg/dL) Norm, 0.2 E.U./dL (mg/dL), 1 E.U./dL (mg/dL) POC URINE BILIRUBIN Negative Negative mg/dL POC URINE BLOOD INSTRUMENT 250 Anderson/uL(A) Negative Anderson/uL POC URINE COLOR Deysi POC URINE CLARITY Cloudy Urine 08/13/2024 8:41 AM [employer] Wes Petty MD POINT OF CARE TESTING (MANUAL) F inal Result * DEBRA,POST-VOID RES,US,NON-IMAGING (08/13/2024 8:30 AM [employer]ESM[employer]) Narrative Jolene Patricio - 08/13/2024 8:30 AM [employer] SAL[employer]AN Jolene Patricio ? 08/13/2024 ??3:03 PM POCT Bladder Scan collected per standing order of Dr. Petty on 08/13/2024 PVR= 5 ML us Wes Petty MD [place] - SURGERY Final Result * (ABNORMAL) HEMOGLOBIN A1C W/ ESTIMATED GLUCOSE (06/25/2024 10:06 AM CDT) Pathologist [facility] HGB-A1C 7.9(H) 4.0 - 6.0 % 06/25/2024 12:29 PM CDT [facility] Est Average Glucose 180.0 mg/dL 06/25/2024 12:29 PM CDT [facility] Blood Venipuncture / Unknown 06/25/2024 10:06 AM CDT 06/25/2024 10:06 AM CDT Narrative [facility] - 06/25/2024 12:29 PM CDT HEMOGLOBIN A1C: DIABETIC PATIENTS: WELL-CONTROLLED: ?? 6.2 - 7.0 INTERMEDIATE WELL-CONTROLLED: ??7.0 - 9.0 POORLY-CONTROLLED: ??>9.0 us Bhargavi Morel PAC CHEMISTRY ORDERABLES Fin al Result [facility] [address] [place] [address] * (ABNORMAL) CBC WITH AUTO DIFFERENTIAL (06/25/2024 10:06 AM CDT) Pathologist [facility] WBC 7.89 4.00 - 12.00 10(3)/mcL 06/25/2024 12:16 PM CDT [facility] RBC 4.83 3.80 - 5.30 10(6)/mcL 06/25/2024 12:16 PM CDT [facility] HEMOGLOBIN (HGB) 15.2 12.0 - 15.8 g/dL 06/25/2024 12:16 PM CDT [facility] HEMATOCRIT (HCT) 47.7(H) 36.0 - 47.0 % 06/25/2024 12:16 PM CDT [facility] MCV 98.8(H) 82.0 - 96.0 fL 06/25/2024 12:16 PM CDT [facility] MCH 31.5 26.0 - 34.0 pg 06/25/2024 12:16 PM CDT [facility] MCHC 31.9 31.0 - 36.0 g/dL 06/25/2024 12:16 PM CDT [facility] PLATELET COUNT 253 140 - 440 10(3)/mcL 06/25/2024 12:16 PM CDT [facility] RDW 15.9(H) 11.8 - 15.5 % 06/25/2024 12:16 PM CDT [facility] MPV 9.6(L) 9.7 - 12.4 fL 06/25/2024 12:16 PM CDT [facility] NEUTROPHILS 68.0 47.0 - 73.0 % 06/25/2024 12:16 PM CDT [facility] LYMPHOCYTES 19.0 18.0 - 42.0 % 06/25/2024 12:16 PM CDT [facility] MONOCYTES 9.8 4.0 - 12.0 % 06/25/2024 12:16 PM CDT [facility] EOSINOPHILS 2.4 0.0 - 5.0 % 06/25/2024 12:16 PM CDT [facility] BASOPHILS 0.8 0.0 - 1.0 % 06/25/2024 12:16 PM CDT [facility] ABSOLUTE NEUTROPHILS 5.37 1.60 - 7.70 10(3)/mcL 06/25/2024 12:16 PM CDT [facility] ABSOLUTE LYMPHOCYTES 1.50 1.30 - 3.20 10(3)/mcL 06/25/2024 12:16 PM CDT [facility] ABSOLUTE MONOCYTES 0.77 0.20 - 1.00 10(3)/mcL 06/25/2024 12:16 PM CDT [facility] ABSOLUTE EOSINOPHIL 0.19 0.00 - 0.40 10(3)/mcL 06/25/2024 12:16 PM CDT [facility] ABSOLUTE BASOPHILS 0.06 0.00 - 0.10 10(3)/mcL 06/25/2024 12:16 PM CDT [facility] NRBC PER 100 WBC 0 06/25/20 12:16 PM CDT [facility] Blood Venipuncture / Unknown 06/25/2024 10:06 AM CDT 06/25/2024 10:06 AM CDT us Bhargavi Morel PAC HEMATOLOGY ORDERABLES Fi nal Result [facility] [address] [place] [address] * THYROID STIMULATING HORMONE (TSH) (06/25/2024 10:06 AM CDT) TSH 2.955 0.300 - 5.000 mIU/L 06/25/2024 12:57 PM CDT [facility] Blood Venipuncture / Unknown 06/25/2024 10:06 AM CDT 06/25/2024 10:06 AM CDT us Bhargavi Morel PAC CHEMISTRY ORDERABLES Fin al Result [facility] [address] [place] [address] * MAGNESIUM (MG) (06/25/2024 10:06 AM CDT) MAGNESIUM 1.9 1.6 - 2.6 mg/dL 06/25/2024 12:45 PM CDT [facility] Blood Venipuncture / Unknown 06/25/2024 10:06 AM CDT 06/25/2024 10:06 AM CDT us VaniaAshlyn Morel PAC CHEMISTRY ORDERABLES Fin al Result [facility] [address] [place] [address] * (ABNORMAL) CMP (COMPREHENSIVE METABOLIC PANEL) (06/25/2024 10:06 AM CDT) SODIUM 138 136 - 145 mmol/L 06/25/2024 12:45 PM CDT [facility] POTASSIUM 4.4 3.5 - 5.1 mmol/L 06/25/2024 12:45 PM CDT [facility] CHLORIDE 102 98 - 107 mmol/L 06/25/2024 12:45 PM CDT [facility] CO2, VENOUS 29 22 - 30 mmol/L 06/25/2024 12:45 PM CDT [facility] ANION GAP 11.4 <18.0 mmol/L 06/25/2024 12:45 PM CDT [facility] GLUCOSE 180(H) 70 - 99 mg/dL 06/25/2024 12:45 PM CDT [facility] BUN 17 10 - 20 mg/dL 06/25/2024 12:45 PM CDT [facility] CREATININE, BLOOD 0.78 0.60 - 1.00 mg/dL 06/25/2024 12:45 PM CDT [facility] BUN/CREATININE RATIO 22(H) 12 - 20 ratio 06/25/2024 12:45 PM CDT [facility] TOTAL PROTEIN 7.7 6.3 - 8.2 g/dL 06/25/2024 12:45 PM CDT [facility] ALBUMIN 3.7 3.5 - 5.0 g/dL 06/25/2024 12:45 PM CDT [facility] A/G RATIO 0.9(L) 1.0 - 2.2 06/25/2024 12:45 PM CDT [facility] CALCIUM 9.9 8.7 - 10.5 mg/dL 06/25/2024 12:45 PM CDT [facility] T BILI 0.5 0.2 - 1.2 mg/dL 06/25/2024 12:45 PM CDT [facility] SGOT (AST) 25 5 - 34 U/L 06/25/2024 12:45 PM CDT [facility] SGPT (ALT) 20 0 - 55 U/L 06/25/2024 12:45 PM CDT [facility] ALKALINE PHOSPHATASE 104 40 - 150 U/L 06/25/2024 12:45 PM CDT [facility] IS THE PATIENT REQUIRED TO BE FASTING? No 06/25/2024 12:45 PM CDT [facility] GFR, ESTIMATED >60 >=60 06/25/2024 12:45 PM CDT [facility] Comment: Creatinine Clearance is the preferred criteria for selecting drug dose adjustments in renally impaired patients. ??The GFR is provided as additional pertinent clinical information. GFR is reported in mL/min/1.73 sq m. Calculation based on the Chronic Kidney Disease Epidemiology Collaboration (CKD- EPI) equation refit without adjustment for race. GFR, EST. >60 >=60 024 12:45 PM CDT [facility] GFR, EST. NONAFRICAN >60 >=60 06/25/2024 12:45 PM CDT [facility] Blood Venipuncture / Unknown 06/25/2024 10:06 AM CDT 06/25/2024 10:06 AM CDT us Bhargavi Morel PAC CHEMISTRY ORDERABLES Fin al Result [facility] [address] [place] [address] * HEPATITIS C ANTIBODY (10/17/2023 1:34 PM OUTSIDE PARTS SALESMAN) hepatitis C antibody 0.11 <1 S/CO [facility] ARCH [id number] B 10/17/2023 11:16 PM OUTSIDE PARTS SALESMAN [facility] Comment: Signal/Cutoff ratio ??< 0.79 is Nondetected Signal/Cutoff ratio 0.80-0.99 is Grayzone Signal/Cutoff ratio > 0.99 is Detected Supplemental assays are recommended if signal/cutoff ratio is >/=1.00. ??Signal/cutoff ratio result >/= 5.00 is 97% predictive of positivity for recombinant immunoblot assay (RIBA) and will be reported to the [place] Department of Public [facility] as required. Blood Venipuncture / Unknown 10/17/2023 1:34 PM OUTSIDE PARTS SALESMAN 10/17/2023 1:34 PM OUTSIDE PARTS SALESMAN us Bhargavi Morel PAC CHEMISTRY ORDERABLES Fin al Result [facility] [address] [place] [address], from Last 3 Months or Most Recently Relevant to Health Maintenance Insurance MEDICARE C HUMANA MEDICARE C [employer]NA [place] MEDPAY Advance Directives * Full Code (Latest Code Status on File) Date Activated Date Inactivated Comments 06/09/2021 10:56 PM 06/11/2021 7:16 PM CPR-Full Treatment: FULL ARREST: Attempt Resuscitation/CPR wit intubation and mechanical ventilation. PRE-ARREST: Use entire range of life support measures to stabilize the patient. Care Teams Frame Repairer Relationship Specialty Start Date End Date Bhargavi Morel, [facility] [address] [place] [address] PCP - General Physician Geek Squad Manager 07/22/23 Flaquito Hurd MD [address] [place] [id number] Consulting Physician Pulmonary Disease 11/09/22 Wes Petty MD [address] [address] [address] Consulting Physician Urology 01/18/24
--- OUTSIDE RECORDS SUMMARY | 2024-08-30 18:47 | XMS_ITS | Encounter Summary ---
Author Organization [facility] Address [address] [place] [address] Phone Care Team Providers Care Manager Progressive Care Name Role Phone Bhargavi Morel ARAM Primary Care Provider + Flaquito Hurd MD Unavailable Wes Petty MD Unavailable Reason for Visit * Reason Comments New Patient Freq uti Burning with urination Encounter Details Date Type Department Care Team (Late st Contact Info) Description 08/13/2024 8:30 AM BOAT FINISHER Office Visit [facility] [address] [place] [address] Wes Petty MD [address] [address] Frequent UTI (Primary Dx) Discharge Disposition: Discharged to home or Selfcare Social History Tobacco Use Types Packs/Day Years Used Date Smoking Tobacco: Former Cigarettes 2 35 Smokeless Tobacco: Never Alcohol Use Standard Drinks/Week Comments Not Currently 0 (1 standard drink = 0.6 oz pur e alcohol) [facility] Utilities Answer Date Recorded In the past 12 months has e [employer], gas, oil, or water company threatened to [...] declined 03/18/2024 How often do you attend christian or alevism serv ices? Patient declined 03/18/2024 Do you belong to any clubs o r organizations such as christian groups, unions, fraternal or athletic groups, or [...] Total Score - Questions 1-9 0 05/29 [facility] - Occupational Stress Questionnaire Answer Date [...] place to sleep or slept in a nursing home (including now)? No 01/16/2024 Housing Stability Vital [...] any time in the past 12 m [facility], were you homeless or living in a nursing home (including now)? Patient declined 03/18/2024 Education Answer [...] on file documented as of this encounter Last Filed Vital Signs Vital Sign Reading Time Taken Comments Blood Pressure 132/86 08/13/2024 8:32 AM BOAT FINISHER Pulse 80 08/13/2024 8:32 AM BOAT FINISHER Temperature - - Respiratory Rate 20 08/13/2024 8:32 AM BOAT FINISHER Oxygen Saturation 95% 08/13/2024 8:32 AM BOAT FINISHER Inhaled Oxygen Concentration - - Weight 100.2 kg (221 lb) 08/13/2024 8:32 AM BOAT FINISHER Height 165.1 cm (5' 5 ) 08/13/2024 8:32 AM BOAT FINISHER Body Mass Index 36.78 08/13/2024 8:32 AM BOAT FINISHER documented in this encounter Progress Notes * Wse Petty MD - 08/13/2024 8:30 AM CST UROLOGY [facility] [address] [facility] REKellen [facility], [address] [place] [address] PHONE: FAX: Assessment & Plan Urinary urgency and frequency Severe skin infection looks like a fungal infection involving skin folds prepubertal area thighs and introitus Patient on Jardiance with concern for secondary effects Plan: Urine culture taken straight from the bladder Subjective: 01/16/2024 HPI: HPI: Tressa Myers presents with a chief complaint of urinary urgency patient does have a historywhat she describes as recurrent urinary tract infections she did have 1 episode of Klebsiella all the other ones showed mixed patient's urinalysis today is positive she does describe some terminal dysuria and mostly urge. Urinalysis as stated is positive with nitrates urine culture pending treatment will be decided based on that. Patient counseled for any fevers or worsening symptoms to present to the emergency department.. 08/13/2024 Patient presents today with complaints of recurrent urinary tract infection patient says that she feels like she is getting an infection over every month patient says that she has discomfort in almost a burning sensation in and the genital area are physical examination the patient has a severe fungal infection from the skin folds all the way down to the thighs. With the even some desquamation of skin patient is on Jardiance with concerns that this is causing worsening fungal infections. Recommended she discuss this with her primary care doctor. Patient's introitus examined the labia minora and vaginal mucosa looks fine no significant discharge no significant prolapse on palpation maybe a mild rectocele. But otherwise a straight cath specimen was sent for culture and urinalysis and I suspect this will be negative. Allergies Allergen Reactions Cefazolin Rash and Shortness of Breath Lisinopril Other (see Comments) Current Outpatient Medications on File Prior to Visit Medication Sig Dispense Refill albuterol (Ventolin HFA) 108 (90 Base) MCG/ACT Aerosol Solution INHALE 2 PUFFS EVERY 4-6 HOURS NEEDED FOR SHORTNESS OF BREATH OR WHEEZING 18 g 2 Ascorbic Acid 500 MG Chewable Tablet Take 500 mg by mouth. aspirin EC 81 MG Tablet Delayed Response Take 81 mg by mouth. betamethasone valerate (VALISONE) 0.1 % Ointment APPLY TWICE DAILY TO AREA ON LEGS (Patient not taking: Reported on 08/08/2024) 45 g 3 Blood Glucose Monitoring Suppl Device glDiagnosis: Diabetes type 2 Blood testing frequency: once a day 1 Each 0 dilTIAZem (CARDIZEM CD) 120 MG CAPSULE SR 24 HR Take 120 mg by mouth daily. docusate sodium 100 MG Capsule Take by mouth daily as needed for Constipation - 1st line. empagliflozin (JARDIANCE) 25 MG Tablet Take 1 Tablet by mouth daily. 90 Tablet 3 Widfrkchmvd-Ffncnvyse-Ihdgam (Trelegy Ellipta) 100-62.5-25 MCG/ACT AEROSOL POWDER, BREATH ACTIVATEDtake 1 Puff by inhalation daily. 60 Each 1 furosemide (LASIX) 40 MG Tablet Take 0.5 Tablets by mouth daily. 90 Tablet 1 gabapentin (NEURONTIN) 600 MG Tablet TAKE 1 TABLET BY MOUTH DAILY 90 Tablet 0 glipiZIDE (GLUCOTROL) 5 MG Tablet TAKE 1/2 TABLET BY MOUTH DAILY, AFTER BREAKFAST 90 Tablet 1 Glucose Blood Strip Diagnosis: Diabetes type 2 Blood testing frequency: once a day 100 Strip 3 Januvia 100 MG Tablet TAKE 1 TABLET BY MOUTH EVERY DAY 90 Tablet 1 levothyroxine (SYNTHROID) 75 MCG Tablet Take 1 Tablet by mouth daily. 90 Tablet 1 losartan (COZAAR) 25 MG Tablet magnesium oxide (MAG-OX) 400 MG Tablet Take 400 mg by mouth daily. (Patient not taking: Reported on08/08/2024) metFORMIN (GLUCOPHAGE) 1000 MG Tablet Take 1 Tablet by mouth 2 times daily. 180 Tablet 1 metoprolol Succinate (TOPROL-XL) 100 MG TABLET SR 24 HR Take 2 Tablets by mouth daily. 135 Tablet 1 PARoxetine (PAXIL) 40 MG Tablet Take 1 Tablet by mouth daily. 90 Tablet 1 simvastatin (ZOCOR) 40 MG Tablet traMADol (ULTRAM) 50 MG Tablet TAKE 1 TABLET BY MOUTH EVERY 6 HOURS NEEDED FOR MODERATE TO SEVERE PAIN 28 Tablet 0 VITAMIN D PO Take by mouth daily. warfarin (COUMADIN) 2 MG Tablet Take 3 mg by mouth. Takes 2mg one day and then the next 1.5mg alternating. 90 Tablet No current facility-administered medications on file prior to visit. Past Medical History Positives Diagnosis Date Atrial fibrillation (HCC) Congestive heart failure (CHF) (HCC) Diabetes (HCC) Hypertension Thyroid activity decreased Past Surgical History: Procedure Laterality Date HC INJ CARDIAC CATH VENOUS BYPASS GRAFT,1+ TUBAL LIGATION Family History Problem Relation Age of Onset Congestive Heart Failure Mother Hypertension Mother Cancer Father Social History Socioeconomic History Marital status: Single Spouse name: Not on file Number of children: Not on file Years of education: Not on file Highest education level: 11th grade Occupational History Not on file Tobacco Use Smoking status: Former Current packs/day: 2.00 Average packs/day: 2.0 packs/day for 35.0 years (70.0 ttl pk-yrs) Types: Cigarettes Smokeless tobacco: Never Vaping Use Vaping status: Never Used Substance and Sexual Activity Alcohol use: Not Currently Drug use: Yes Types: Marijuana Comment: a few times per week Sexual activity: Not Currently Other Topics Concern Not on file Social History Narrative Not on file Social Drivers of Health Financial Resource Needs: Patient Declined (03/18/2024) Overall Financial Resource Strain (CARDIA) Difficulty of Paying Living Expenses: Patient declined Food Insecurity Needs: Patient Declined (03/18/2024) Hunger Vital Sign Worried About Running Out of Food in the Last Year: Patient declined Ran Out of Food in the Last Year: Patient declined Transportation Needs: Patient Declined (03/18/2024) PRAPARE - Transportation Lack of Transportation (Medical): Patient declined Lack of Transportation (Non-Medical): Patient declined Physical Activity: Patient Declined (03/18/2024) Exercise Vital Sign Days of Exercise per Week: Patient declined Minutes of Exercise per Session: Patient declined Stress: Patient Declined (03/18/2024) [place] [employer] - Occupational Stress Questionnaire Feeling of Stress : Patient declined Social Integration: Patient Declined (03/18/2024) Social Connection and Isolation Panel [NHANES] Frequency of Communication with Friends and Family: Patient declined Frequency of Social Gatherings with Friends and Family: Patient declined Attends Confucianism Services: Patient declined Active Member of Clubs or Organizations: Patient declined Attends Club or Organization Meetings: Patient declined Marital Status: Patient declined Personal Safety: Low Risk (07/21/2024) Personal Safety Feels Unsafe at Home or Work/School: no Feels Threatened by Someone: no Does Anyone Try to Keep You From Having Contact with Others or Doing Things Outside Your Home?: no Physical Signs of Abuse Present: no Housing Stability: Patient Declined (03/18/2024) Housing Stability Vital Sign Unable to Pay for Housing in the Last Year: Patient declined Number of Times Moved in the Last Year: 0 Homeless in the Last Year: Patient declined ROS: Review of systems was negative, except as documented in HPI. Objective: VITALS: BP 132/86 (BP Location: Left Arm, BP Position: Sitting, BP Cuff Size: Large) Pulse 80 Resp 20 Ht 5' 5 (1.651 m) Wt 221 lb (100.2 kg) SpO2 95% BMI 36.78 kg/m?? PHYSICAL EXAM: GENERAL: Normal appearance. Patient is sitting in the exam room comfortably. EYES: Extraocular movements intact. No scleral icterus, normal conjuctiva. ENT: Normal external appearance; oral mucosa is pink and moist. NECK: Symmetrical, no visible thyromegaly or masses. RESPIRATORY: Unlabored respirations. Symmetric chest expansion. CARDIAC: Regular rate GASTROINTESTINAL: Abdomen without obvious mass or hernia. PELVIC EXAM: Not done Lab Results Component Value Date WBC 7.89 06/25/2024 HEMOGLOBIN 15.2 06/25/2024 PLATELETCNT 253 06/25/2024 MCV 98.8 (H) 06/25/2024 Lab Results Component Value Date SODIUM 138 06/25/2024 POTASSIUM 4.4 06/25/2024 CHLORIDE 102 06/25/2024 CO2VEN 29 06/25/2024 ANIONGAP 11.4 06/25/2024 GLUCOSE 180 (H) 06/25/2024 BUN 17 06/25/2024 CREATININE 0.78 06/25/2024 BCRATIO8 22 (H) 06/25/2024 TOTALPROTEIN 7.7 06/25/2024 ALBUMIN 3.7 06/25/2024 CALCIUM 9.9 06/25/2024 TBIL 0.5 06/25/2024 SGOTAST 25 06/25/2024 SGPTALT 20 06/25/2024 ALKALINEPHO 104 06/25/2024 GFRNA >60 06/25/2024 GFRA >60 06/25/2024 Results for orders placed or performed in visit on 01/16/24 CULTURE, URINE Specimen: Urine Clean Catch; Culture Result Value Ref Range Status CULTURE RESULTS Final MIXED GROWTH OF 3 OR MORE ORGANISMS, PROBABLE COLLECTION CONTAMINATION, SUGGEST REPEAT URINE CULTURE. Results for orders placed or performed in visit on 10/17/23 URINALYSIS REFLEX IF INDICATED BY ABNORMAL RESULTS Result Value Ref Range Status SPECIFIC GRAVITY 1.025 1.003 - 1.030 Final URINE PH 6.0 5.0 - 9.0 Final WBC ESTERASE 500 /uL (A) Negative Final NITRITE Negative Negative Final PROTEIN, RANDOM URINE 30 mg/dL (A) Negative Final URINE GLUCOSE, QUAL 250 mg/dL (A) Negative Final URINE KETONES Negative Negative Final UROBILINOGEN Normal Normal mg/dL Final URINE BLOOD 10 /uL (A) Negative minerva/ul Final URINALYSIS COLOR Yellow Final URINALYSIS CLARITY Very Cloudy Final WBC (Urine) 51-150 (A) Negative, 0-5 /hpf Final URINE RBC'S 0-2 Negative, 0-2 /hpf Final EPITHELIAL CELLS Occasional /lpf Final BACTERIA, URINE Packed (A) Negative /hpf Final No results found for: TESTOSTTTL No results found for this or any previous visit from the past 365 days. No results found for this or any previous visit from the past 365 days. No results found for this or any previous visit from the past 365 days. Tressa Caba was seen today for new patient, freq uti and burning with urination. Diagnoses and all orders for this visit: Frequent UTI - POCT UA AUTOMATED W/O MICRO - DEBRA,POST-VOID RES,US,NON-IMAGING - CULTURE, URINE; Future - URINALYSIS REFLEX IF INDICATED BY ABNORMAL RESULTS; Future - CULTURE, URINE - URINALYSIS REFLEX IF INDICATED BY ABNORMAL RESULTS By: Wes Petty MD, 08/13/2024, 11:56 AM BOAT FINISHER Primary Care Physician: Bhargavi Morel, PAC FINISHER documented in this encounter Procedure Notes * Jolene Patricio - 08/13/2024 8:30 AM CSTAssociated Order(s): DEBRA,POST-VOID RES,US,NON-IMAGING POCT Bladder Scan collected per standing order of Dr. Petty on 08/13/2024 PVR= 5 ML FINISHER documented in this encounter Plan of Treatment Upcoming Encounters Date Type Department Care Team (Late st Contact Info) Description 10/29/2024 9:30 AM BOAT FINISHER Office Visit [facility] [address] [place] [address] Bhargavi Morel, PAC [address] [place] [address] documented as of this encounter Procedures Procedure Name Priority Date/Time Associated Diagnosis Comments URINALYSIS REFLEX IF INDICATED BY ABNORMAL RESULTS Routine 08/13/2024 9:11 AM BOAT FINISHER Frequent UTI CULTURE, URINE Routine 08/13/2024 9:11 AM BOAT FINISHER Frequent UTI POCT UA AUTOMATED W/O MICRO Routine 08/13/2024 8:41 AM BOAT FINISHER Frequent UTI DEBRA,POST-VOID RES,US,NON-IMAGING Routine 08/13/2024 8:30 AM BOAT FINISHER Frequent UTI documented in this encounter Results * (ABNORMAL) URINALYSIS REFLEX IF INDICATED BY ABNORMAL RESULTS (08/13/2024 9:11 AM BOAT FINISHER) SPECIFIC GRAVITY 1.010 1.003 - 1.030 08/13/2024 2:04 PM BOAT FINISHER [facility] URINE PH 7.0 5.0 - 9.0 08/13/2024 2:04 PM BOAT FINISHER [facility] WBC ESTERASE 25 /ul(A) Negative 08/13/2024 2:04 PM BOAT FINISHER [facility] NITRITE Negative Negative 08/13/2024 2:04 PM BOAT FINISHER [facility] PROTEIN, RANDOM URINE 30 mg/dL(A) Negative 08/13/2024 2:04 PM BOAT FINISHER [facility] URINE GLUCOSE, QUAL 1000 mg/dL(A) Negative 08/13/2024 2:04 PM BOAT FINISHER [facility] URINE KETONES Negative Negative 08/13/2024 2:04 PM BOAT FINISHER [facility] UROBILINOGEN Normal Normal mg/dL 08/13/2024 2:04 PM BOAT FINISHER [facility] URINE BLOOD 250 /uL(A) Negative minerva/ul 08/13/2024 2:04 PM BOAT FINISHER [facility] URINALYSIS COLOR Deysi 08/13/20 2:04 PM BOAT FINISHER [facility] URINALYSIS CLARITY Clear 08/13/2024 2:04 PM BOAT FINISHER [facility] WBC (Urine) 0-5 Negative, 0-5 /hpf 08/13/2024 2:04 PM BOAT FINISHER [facility] URINE RBC'S Packed(A) Negative, 0-2 /hpf 08/13/2024 2:04 PM BOAT FINISHER [facility] EPITHELIAL CELLS Small amount /lpf 2023 2:04 PM BOAT FINISHER [facility] BACTERIA, URINE Few(A) Negative /hpf 08/13/2024 2:04 PM BOAT FINISHER [facility] Urine (Urine Bladder) Non-Phlebotomy Collection / Unknown 08/13/2024 9:11 AM BOAT FINISHER 08/13/2024 9:11 AM BOAT FINISHER us Wes Petty MD URINE ORDERABLES Final Result [facility] [address] [place] [address] * CULTURE, URINE (08/13/2024 9:11 AM BOAT FINISHER) CULTURE RESULTS KLEBSIELLA PNEUMONIAE 08/15/2024 3:40 PM BOAT FINISHER [facility] Culture URINE SPECIMEN / Unknown Non-Phlebotomy Collection / Unknown 08/13/2024 9:11 AM BOAT FINISHER 08/13/2024 9:11 AM BOAT FINISHER Narrative Organism Antibiotic Method Susceptibility Klebsiella pneumoniae [...] MICROBIOLOGY - GENERAL ORDERABLE S Final Result [facility] [address] [place] [address], * (ABNORMAL) POCT UA AUTOMATED W/O MICRO (08/13/2024 8:41 AM BOAT FINISHER) POC UA SPECIFIC GRAVITY 1.000 URINE PH [...] Negative mg/dL POC URINE BLOOD INSTRUMENT 250 Minerva/uL(A) Negative Minerva/uL POC URINE COLOR Deysi POC URINE CLARITY Cloudy Urine 08/13/2024 8:41 AM BOAT FINISHER Wes Petty MD POINT OF CARE TESTING (MANUAL) F inal Result * DEBRA,POST-VOID RES,US,NON-IMAGING (08/13/2024 8:30 AM BOAT FINISHER) Narrative Jolene Patricio - 08/13/2024 8:30 AM BOAT FINISHER Jolene Patricio ? 08/13/2024 ??3:03 PM POCT Bladder Scan collected per standing order of Dr. Petty on 08/13/2024 PVR= 5 ML us Wes Petty MD [place] - SURGERY Final Result documented in this encounter Visit Diagnoses Diagnosis Frequent UTI- Primary Urinary tract infection, site not specified documented in this encounter Additional Health Concerns Assessment Noted Time PHQ-9 Depression Total Score: 0 06/25/20 9:24 AM CDT documented as of this encounter Care Teams Manager Progressive Care Relationship Specialty Start Date End Date Bhargavi Morel PAC [address] [place] [address] PCP - General Physician Developer [employer] 07/22/23 Flaquito Hurd MD [address] [place] [phone] Consulting Physician Pulmonary Disease 11/09/22 Wes Petty MD [address] [id number] Consulting Physician Urology 01/18/24 documented as of this encounter
--- OUTSIDE RECORDS SUMMARY | 2024-08-30 18:47 | XMS_ITS | Encounter Summary ---
Author Organization [facility] Address [address] [place] [address] Phone Care Team Providers Care Human Resources Executive Name Role Phone Bhargavi Morel Primary Care Provider + Flaquito Hurd MD Unavailable Wes Petty MD Unavailable Reason for Visit * Reason Onset Date Comments Medication Refill 08/14/2024 Encounter Details Date Type Department Care Team (Late st Contact Info) Description 08/14/2024 Telephone [facility] Medical [facility] - Family Medicine [facility] [address] [place] [address] Bhargavi Morel PAC [address] [place] [address] Medication Refill Social History Tobacco Use Types Packs/Day Years Used Date Smoking Tobacco: Former Cigarettes 2 35 Smokeless Tobacco: Never Alcohol Use Standard Drinks/Week Comments Not Currently 0 (1 standard drink = 0.6 oz pur e alcohol) [facility] Utilities Answer Date Recorded In the past 12 months has [employer], gas, oil, or water company threatened to [...] declined 03/18/2024 How often do you attend oriental orthodox or caodaism serv ices? Patient declined 03/18/2024 Do you belong to any clubs o r organizations such as oriental orthodox groups, unions, fraternal or athletic groups, or [...] Recorded Total Score - Questions 1-9 0 103 [facility] of Occupat ional [facility] - Occupational Stress Questionnaire Answer Date Recorded [...] place to sleep or slept in a group home (including now)? No 01/16/2024 Housing Stability [...] any time in the past 12 m [facility], were you homeless or living in a group home (including now)? Patient declined 03/18/2024 Education [...] Telephone Encounter - Cristine Nolen RN - 08/18/2024 9:31 AM CST Called and spoke with patient and let her know, she stated that she understood. DUMPER * Addendum Note - Bhargavi Morel PAC - 08/16/2024 10:26 AM CSTAddended by: BHARGAVI MOREL on: 08/16/2024 10:26 AM Modules accepted: Orders DUMPER * Telephone Encounter - Bhargavi oMrel PAC - 08/16/2024 10:25 AM PAN DUMPER She can try going off jardiance and see if helps avoid UTIs, since going off this I increased glipizide to 5 mg twice daily DUMPER * Telephone Encounter - Cristine Nolen RN - 08/14/2024 1:19 PM CST Called and spoke with patient, she stated that you had increased her glipizide to a whole tablet from 0.5 tablet and now insurance will not pay for a refill, they are stating that it is too soon. Please send in new script for this. She also wants to let you know that see seen the urologist yesterday and that they want her to comeoff the Jardiance. He feels that is want is causing her UTI, see office notes DUMPER DUMPER * Telephone Encounter - Saida Forte MA - 08/14/2024 12:46 PM PAN DUMPER Message left on medication refill voice mail Patient requesting a return call to discuss medication pcp increased pharmacy will not give patienta refill . Patient did not specify what medication she wants to discuss with a nurse. Please call @[phone] DUMPER documented in this encounter Plan of Treatment Upcoming Encounters Date Type Department Care Team (Late st Contact Info) Description 10/29/2024 9:30 AM PAN DUMPER Office Visit [facility] Medical [facility] - [facility] [address] [place] [address] Bhargavi Morel, PAC [address] [place] [address] documented as of this encounter Visit Diagnoses Not on filedocumented in this encounter Additional Health Concerns Assessment Noted Time PHQ-9 Depression Total Score: 0 06/25/20 24 9:24 AM CDT documented as of this encounter Care Teams Human Resources Executive Relationship Specialty Start Date End Date Bhargavi Morel PAC [address] [place] [address] PCP - General Physician Biofuels Production Associate 07/22/23 Flaquito Hurd MD [address] [place] [address] Consulting Physician Pulmonary Disease 11/09/22 Wes Petty MD [address] [phone] Consulting Physician Urology 01/18/24 documented as of this encounter
--- OUTSIDE RECORDS SUMMARY | 2024-08-30 18:47 | XMS_ITS | Encounter Summary ---
Author Organization [facility] Address [address] [place] [address] Phone Care Team Providers Care Cook Helper Fruit Name Role Phone Bhargavi Morel Primary Care Provider + Flaquito Hurd MD Unavailable Wes Petty MD Unavailable Reason for Visit * Reason Comments Medication Refill Encounter Details Date Type Department Care Team (Late st Contact Info) Description 06/30/[address] [facility] Medical [facility] - Family Medicine [facility] [address] [place] [address] Bhargavi Morel PAC [address] [place] [address] Medication Refill Social History Tobacco Use Types Packs/Day Years Used Date Smoking Tobacco: Former Cigarettes 2 35 Smokeless Tobacco: Never Alcohol Use Standard Drinks/Week Comments Not Currently 0 (1 standard drink = 0.6 oz pur e alcohol) [facility] Utilities Answer Date Recorded In the past 12 months has [employer], gas, oil, or water company threatened to [...] declined 03/18/2024 How often do you attend rastafari or methodist serv ices? Patient declined 03/18/2024 Do you belong to any clubs o r organizations such as rastafari groups, unions, fraternal or athletic groups, or [...] Total Score - Questions 1-9 0 05/29 [facility] - Occupational Stress Questionnaire Answer Date [...] place to sleep or slept in a mcfp (including now)? No 01/16/2024 Housing Stability Vital [...] any time in the past 12 m [facility], were you homeless or living in a mcfp (including now)? Patient declined 03/18/2024 Education Answer [...] encounter Miscellaneous Notes * Telephone Encounter - Reanna Rios RN - 07/01/2024 10:10 AM CST Images from the original note were not included. traMADol HCl Dispensed Days Supply Quantity Provider Pharmacy TRAMADOL 50MG TABLETS 05/28/2024 7 28 Each Bhargavi Morel PAC [facility]... TRAMADOL 50MG TABLETS 04/18/2024 7 28 Each Bhargavi Morel PAC [facility]... Medication failed the protocol, provider to review and approve the medication order if appropriate. Requested Prescriptions Pending Prescriptions Disp Refills traMADol (ULTRAM) 50 MG Tablet [Pharmacy Med Name: TRAMADOL 50MG TABLETS] 28 Tablet 0 Sig: TAKE 1 TABLET BY MOUTH EVERY 6 HOURS NEEDED FOR MODERATE TO SEVERE PAIN Not Delegated - Opioid Agonists Protocol Failed - 06/30/2024 3:50 PM Failed - This refill cannot be delegated Passed - Visit with relevant provider in past 12 months or upcoming 90 days Recent Visits Date Type Provider Dept 06/25/24 Office Visit Bhargavi Morel, PAC [facility] [place] 03/18/24 Office Visit Cole Garsia APRN, GAIL [facility] [place] 01/16/24 Office Visit Bhargavi Morel PAC [facility] 10/17/23 Office Visit Bhargavi Morel, PAC [facility] 07/11/23 Office Visit Bhargavi Morel, PAC [facility] [place] Showing recent visits within past 365 days and meeting all other requirements Future Appointments No visits were found meeting these conditions. Showing future appointments within next 90 days and meeting all other requirements DROGENATION SUPERVISOR documented in this encounter Plan of Treatment Upcoming Encounters Date Type Department Care Team (Late st Contact Info) Description 10/29/2024 9:30 AM DEHYDROGENATION SUPERVISOR Office Visit [facility] Medical Group - Family Medicine [facility] [address] [place] [address] Bhargavi Morel PAC [address] [place] [address] documented as of this encounter Visit Diagnoses Diagnosis Pain and swelling of right knee documented in this encounter Additional Health Concerns Assessment Noted Time PHQ-9 Depression Total Score: 0 06/25/20 24 9:24 AM CDT documented as of this encounter Care Teams Cook Helper Fruit Relationship Specialty Start Date End Date Bhargavi Morel PAC [address] [place] [address] PCP - General Physician Width Stripper 07/22/23 Flaquito Hurd MD [address] [place] [phone] Consulting Physician Pulmonary Disease 11/09/22 Wes Petty MD [address] [place], [address] [address] Consulting Physician Urology 01/18/24 documented as of this encounter
--- OUTSIDE RECORDS SUMMARY | 2024-08-30 18:47 | XMS_ITS | Encounter Summary ---
Author Organization [facility] Address [address] [place] [address] Phone Care Team Providers Care Licensed Clinical Psychologist Name Role Phone Bhargavi Morel Primary Care Provider + Flaquito Hurd MD Unavailable Wes Petty MD Unavailable Reason for Visit * Reason Onset Date Comments Medication Refill 04/29/2024 Encounter Details Date Type Department Care Team (Late st Contact Info) Description 04/29/2024 Refill [facility] Medical Group - Family Medicine [facility] [address] [place] [address] Bhargavi Morel PAC [address] [place] [address] Medication Refill Social History Tobacco Use Types Packs/Day Years Used Date Smoking Tobacco: Former Cigarettes 2 35 Smokeless Tobacco: Never Alcohol Use Standard Drinks/Week Comments Not Currently 0 (1 standard drink = 0.6 oz pur e alcohol) [facility] Utilities Answer Date Recorded In the past 12 months has [employer], gas, oil, or water company threatened to [...] How often do you attend rastafari or scientology serv ices? Patient declined 03/18/2024 Do you [...] Total Score - Questions 1-9 0 09/28 [facility] of Occupat ional [facility] - Occupational Stress Questionnaire Answer [...] place to sleep or slept in a long-term (including now)? No 01/16/2024 Housing Stability Vital [...] any time in the past 12 m [facility], were you homeless or living in a long-term (including now)? Patient declined 03/18/2024 Education Answer [...] Telephone Encounter - Reanna Rios RN - 04/29/2024 2:28 PM CDT Medication failed the protocol, provider to review and approve the medication order if appropriate. Requested Prescriptions Pending Prescriptions Disp Refills metFORMIN (GLUCOPHAGE) 1000 MG Tablet 180 Tablet 1 Sig: Take 1 Tablet by mouth 2 times daily. Biguanides Protocol Passed - 04/29/2024 10:20 AM Passed - Visit with relevant provider in past 6 months or upcoming 90 days Recent Visits Date Type Provider Dept 03/18/24 Office Visit Cole Garsia APRN, GAIL [place] 01/16/24 Office Visit Bhargavi Morel PAC [facility] [place] Showing recent visits within past 182 days and meeting all other requirements Future Appointments Date Type Provider Dept 04/30/24 Appointment Cole Garsia APRN, GAIL [place] 06/25/24 Appointment Bhargavi Morel PAC [facility] [place] Showing future appointments within next 90 days and meeting all other requirements Passed - HgA1C on record in past 6 months HGB-A1C Date Value Ref Range Status 01/16/2024 7.7 (H) 4.0 - 6.0 % Final Passed - GFR on record in past 6 months GFR, EST. NONAFRICAN Date Value Ref Range Status 03/26/2024 >60 >=60 Final PARoxetine (PAXIL) 40 MG Tablet 90 Tablet 1 Sig: Take 1 Tablet by mouth daily. SSRI (6 Month Refill Only) Protocol Failed - 04/29/2024 10:20 AM Failed - Has an encounter in the past 6 months with a depression, anxiety, adjustment disorder, OCD, or PTSD visit diagnosis Passed - Visit with relevant provider in past 6 months or upcoming 90 days Recent Visits Date Type Provider Dept 03/18/24 Office Visit Cole Garsia APRN, CNP [facility] 01/16/24 Office Visit Bhargavi Morel, ARAM [facility] [place] Showing recent visits within past 182 days and meeting all other requirements Future Appointments Date Type Provider Dept 04/30/24 Appointment Cole Garsia APRN, CNP [facility] 06/25/24 Appointment Bhargavi Morel PAC [facility] [place] Showing future appointments within next 90 days and meeting all other requirements Passed - Patient has established therapy with SSRI for at least 6 months * Telephone Encounter - Kristin Hirsch RN - 04/29/2024 10:20 AM CDT Pt called med refill line documented in this encounter Plan of Treatment Upcoming Encounters Date Type Department Care Team (Vira colon Contact Info) Description 10/29/2024 9:30 AM SWEATBAND DRUMMER Office Visit [facility] [address] [place] [address] Bhargavi Morel PAC [address] [place] [address] documented as of this encounter Visit Diagnoses Not on filedocumented in this encounter Additional Health Concerns Assessment Noted Time PHQ-9 Depression Total Score: 0 10/17/19 24 12:52 PM SWEATBAND DRUMMER documented as of this encounter Care Teams Licensed Clinical Psychologist Relationship Specialty Start Date End Date Bhargavi Morel PAC [address] [place] [address] PCP - General Physician Manager Utilities 07/22/23 Flaquito Hurd MD [address] [place] [address] Consulting Physician Pulmonary Disease 11/09/22 Wes Petty MD [address] [address] Consulting Physician Urology 01/18/24 documented as of this encounter
--- OUTSIDE RECORDS SUMMARY | 2024-08-30 18:47 | XMS_ITS | Encounter Summary ---
Author Organization [facility] Address [address] [place] [address] Phone Care Team Providers Care Gunite Nozzle Operator Name Role Phone Bhargavi Morel Primary Care Provider + Flaquito Hurd MD Unavailable Wes Petty MD Unavailable Reason for Visit * Reason Onset Date Comments Appointment 07/21/2024 Urinary Tract Infection 07/21/2024 Encounter Details Date Type Department Care Team (Late st Contact Info) Description 07/21/2024 Nurse Triage [facility] [address] [place] [address] Bhargavi Morel, PAC [address] [place] [address] Appointment; Urinary Tract Infection Social History Tobacco Use Types Packs/Day Years Used Date Smoking Tobacco: Former Cigarettes 2 35 Smokeless Tobacco: Never Alcohol Use Standard Drinks/Week Comments Not Currently 0 (1 standard drink = 0.6 oz pur e alcohol) [facility] Utilities Answer Date Recorded In the past 12 months has [employer], gas, oil, or water company threatened to [...] declined 03/18/2024 How often do you attend druze or baptist serv ices? Patient declined 03/18/2024 Do you belong to any clubs o r organizations such as druze groups, unions, fraternal or athletic groups, or [...] Recorded Total Score - Questions 1-[address] [facility] of Occupat ional Health - Occupational Stress Questionnaire Answer Date Recorded [...] any time in the past 12 m [facility], were you homeless or living in [...] encounter Miscellaneous Notes * Telephone Encounter - Tonja Bernstein RN - 07/21/2024 8:06 AM CST SITUATION: UTI BACKGROUND: Caller contacting PCP office. Patient calling office requesting provider prescribe an antibiotic for a UTI. States symptoms started on 07/18/24. ASSESSMENT: Symptom Description / Location: Pressure when urinating, gets zach painful (lower abdomen/pelvic area) Some burning with urination Low back pain, bilaterally Pain: 8/10, intermittent Fever: Denies fever. RECOMMENDATION: Caller agreeable to disposition: go to office now. Appointment offered but patient declined states she doesn't want to have to travel that far and will go to walk in clinic that is just up the road - See care advice and disposition for Guideline. First positive answer recorded, all responses to prior questions were negative. If symptoms increase, change or if new symptoms develop, call your health care provider or call back. Recommendations were based on caller information and is not a diagnosis. Verified and reviewed all triage information with caller. Reason for Disposition Pain or burning with passing urine (urination) and female SEVERE pain with urination First positive answer recorded, all responses to prior questions were negative. Protocols used: Urinary Dbqidmzq-M-JM, Urination Pain - Female-A-OH Standing order available IC ADMINISTRATION PROFESSOR * Telephone Encounter - Lesly Morrow V - 07/21/2024 8:05 AM PUBLIC ADMINISTRATION PROFESSOR Symptom: Urination Pain Outcome: Transfer to goat herder queue Reason: This is the only possible outcome for this symptom The caller accepted this outcome. IC ADMINISTRATION PROFESSOR documented in this encounter Plan of Treatment Upcoming Encounters Date Type Department Care Team (Late st Contact Info) Description 10/29/2024 9:30 AM PUBLIC ADMINISTRATION PROFESSOR Office Visit [facility] Medical [facility] - Family Medicine [facility] [address] [place] [address] Bhargavi Morel PAC [address] [place] [address] documented as of this encounter Visit Diagnoses Not on filedocumented in this encounter Additional Health Concerns Assessment Noted Time PHQ-9 Depression Total Score: 0 06/25/20 24 9:24 AM CDT documented as of this encounter Care Teams Gunite Nozzle Operator Relationship Specialty Start Date End Date Bhargavi Morel PAC [address] [place] [address] PCP - General Physician Torpedo Specialist 07/22/23 Flaquito Hurd MD [address] [place] [address] Consulting Physician Pulmonary Disease 11/09/22 Wes Petty MD [address] [address] Consulting Physician Urology 01/18/24 documented as of this encounter
--- OUTSIDE RECORDS SUMMARY | 2024-08-30 18:47 | XMS_ITS | Encounter Summary ---
Author Organization [employer] Care Team Providers Care Integrated Specialist Name Role Phone Bhargavi Morel ARAM Primary Care Provider + Flaquito Hurd MD Unavailable Wes Petty MD Unavailable Encounter Details Date Type Department Care Team (Latest Contact Info) Description 08/13/2024 Travel Social History Tobacco Use Types Packs/Day Years Used Date Smoking Tobacco: Former Cigarettes 2 35 Smokeless Tobacco: Never Alcohol Use Standard Drinks/Week Comments Not Currently 0 (1 standard drink = 0.6 oz pur e alcohol) [facility] Utilities Answer Date Recorded In the past 12 months has [employer], gas, oil, or water company threatened [...] declined 03/18/2024 How often do you attend yarsanism or episcopal serv ices? Patient declined 03/18/2024 Do you belong to any clubs o r organizations such as yarsanism groups, unions, fraternal or athletic groups, or [...] Total Score - Questions 1-9 0 05/29 [facility] - Occupational Stress Questionnaire Answer Date [...] place to sleep or slept in a fci (including now)? No 01/16/2024 Housing Stability Vital [...] any time in the past 12 m onths, were you homeless or living in a fci (including now)? Patient declined 03/18/2024 Education Answer [...] on file documented as of this encounter Plan of Treatment Upcoming Encounters Date Type Department Care Team (Late st Contact Info) Description 10/29/2024 9:30 AM DOOR TENDER Office Visit [facility] - [facility] [address] [place] [address] Bhargavi Morel PAC [address] [place] [address] documented as of this encounter Visit Diagnoses Not on filedocumented in this encounter Additional Health Concerns Assessment Noted Time PHQ-9 Depression Total Score: 0 06/25/20 9:24 AM CDT documented as of this encounter Care Teams Integrated Specialist Relationship Specialty Start Date End Date Bhargavi Morel PAC [address] [place] [address] PCP - General Physician Chief Counsel 07/22/23 Flaquito Hurd MD [address] [place] [address] Consulting Physician Pulmonary Disease 11/09/22 Wes Petty MD [address] [address] Consulting Physician Urology 01/18/24 documented as of this encounter
--- OUTSIDE RECORDS SUMMARY | 2024-08-30 18:47 | XMS_ITS | Encounter Summary ---
Author Organization [facility] Address [address] [place] [address] Phone Care Team Providers Care Catalogue Compiler Name Role Phone Bhargavi Morel Primary Care Provider + Flaquito Hurd MD Unavailable Wes Petty MD Unavailable Reason for Visit * Reason Comments Medication Refill Encounter Details Date Type Department Care Team (Late st Contact Info) Description 08/23/[address] [facility] - Family Medicine [facility] [address] [place] [address] Bhargavi Morel PAC [address] [place] [address] Medication Refill Social History Tobacco Use Types Packs/Day Years Used Date Smoking Tobacco: Former Cigarettes 2 35 Smokeless Tobacco: Never Alcohol Use Standard Drinks/Week Comments Not Currently 0 (1 standard drink = 0.6 oz pur e alcohol) [facility] Utilities Answer Date Recorded In the past 12 months has [employer] gas, oil, or water company threatened to [...] declined 03/18/2024 How often do you attend jehovah's witness or islam serv ices? Patient declined 03/18/2024 Do you belong to any clubs o r organizations such as jehovah's witness groups, unions, fraternal or athletic groups, or [...] Total Score - Questions 1-9 0 05/29 [facility] - Occupational Stress Questionnaire Answer [...] the past 12 m [facility], were you homeless or living in [...] encounter Miscellaneous Notes * Telephone Encounter - Sherry Lugo RN - 08/24/2024 11:40 AM SECTION GANG Medication(s) refilled and signed per [facility] Chronic Medication Refill Standing Order for Pediatricand Adult Patients. Requested Prescriptions Pending Prescriptions Disp Refills Trelegy Ellipta 100-62.5-25 MCG/ACT AEROSOL POWDER, BREATH ACTIVATED [Pharmacy Med Name: TRELEGY ELLIPTA 100-62.5MCG INH 30P] 60 Each 1 Sig: INHALE 1 PUFF BY MOUTH DAILY Inhaled Combinations Protocol Passed - 08/24/2024 11:40 AM Passed - Visit with relevant provider in past 12 months or upcoming 90 days Recent Visits Date Type Provider Dept 06/25/24 Office Visit Bhargavi Morel PAC [facility] [place] 03/18/24 Office Visit Cole Garsia APRN, GAIL [facility] [place] 01/16/24 Office Visit Bhargavi MorelARAM [facility] 10/17/23 Office Visit Bhargavi Morel PAC [facility] [place] Showing recent visits within past 365 days and meeting all other requirements Future Appointments Date Type Provider Dept 10/29/24 Appointment Bhargavi MorelARAM [facility] [place] Showing future appointments within next 90 days and meeting all other requirements Passed - Active short-acting beta agonist prescription ION GANG documented in this encounter Plan of Treatment Upcoming Encounters Date Type Department Care Team (Late st Contact Info) Description 10/29/2024 9:30 AM SECTION GANG [facility] [address] [place] [address] Patricestephen Vania, PAC [address] [place] [address] documented as of this encounter Visit Diagnoses Not on filedocumented in this encounter Additional Health Concerns Assessment Noted Time PHQ-9 Depression Total Score: 0 06/25/20 9:24 AM CDT documented as of this encounter Care Teams Catalogue Compiler Relationship Specialty Start Date End Date Bhargavi Morel PAC [address] [place] [address] PCP - General Physician Yard Warehouse Worker 07/22/23 Flaquito Hurd MD [address] [place] [address] Consulting Physician Pulmonary Disease 11/09/22 Wes Petty MD [address] [facility] [address] [place] [address] Consulting Physician Urology 01/18/24 documented as of this encounter
--- OUTSIDE RECORDS SUMMARY | 2024-08-30 18:47 | XMS_ITS | Encounter Summary ---
Author Organization [facility] Address [address] [place] [address] Phone Care Team Providers Care Electrician Helper Name Role Phone Bhargavi Morel Primary Care Provider + Flaquito Hurd MD Unavailable Wes Petty MD Unavailable Reason for Referral * Radiology Services (Routine) - Closed Specialty Diagnoses / Procedures Referred By Contac t Referred To Contact Radiology Diagnoses Right leg swelling Procedures XR KNEE 3 VIEWS RIGHT Cole Garsia APRN, GAIL [address] [address] Phone: tel: fax: Referral ID Status Reason Start Date Expiration Date Visits Re quested Visits Authorized [id number] Closed 03/18/2024 1 1 Reason for Visit * Radiology Services (Routine) - Closed Specialty Diagnoses / Procedures Referred By Contac t Referred To Contact Radiology Diagnoses Right leg swelling Procedures XR KNEE 3 VIEWS RIGHT Cole Garsia APRN, GAIL [address] [address] Phone: tel: fax: Referral ID Status Reason Start Date Expiration Date Visits Re quested Visits Authorized [id number] Closed 03/18/2024 1 1 Encounter Details Date Type Department Care Team (Latest Contact Info) Description 03/26/2024 8:07 AM CDT - 03/26/2024 11:59 PM CDT Hospital Encounter [facility] Diagnostic Radiology [address] [place] [address] Cole Garsia, EBONY, SUPERVISOR [employer] [address] [facility] [address] [place] [address] Discharge Disposition: Discharged to home or Selfcare Social History Tobacco Use Types Packs/Day Years Used Date Smoking Tobacco: Former Cigarettes 2 35 Smokeless Tobacco: Never Alcohol Use Standard Drinks/Week Comments Not Currently 0 (1 standard drink = 0.6 oz pur e alcohol) [facility] Utilities Answer Date Recorded In the past 12 months has th e electric, gas, oil, or water company threatened [...] declined 03/18/2024 How often do you attend moravian or latter-day serv ices? Patient declined 03/18/2024 Do you belong to any clubs o r organizations such as moravian groups, unions, fraternal or athletic groups, or [...] Total Score - Questions 1-9 0 09/28 [facility] - Occupational Stress Questionnaire Answer Date Recorded [...] place to sleep or slept in a care home (including now)? No 01/16/2024 Housing Stability [...] any time in the past 12 m [facility], were you homeless or living in a care home (including now)? Patient declined 03/18/2024 Education [...] on file documented as of this encounter Medications at Time of Discharge Ascorbic Acid 500 MG Chewable Tablet Take 500 mg by mouth. aspirin EC 81 MG Tablet Delayed Response Take 81 mg by mouth. betamethasone valerate (VALISONE) 0.1 % Ointment APPLY TWICE DAILY TO AREA ON LEGS 45 g 3 01/07/2024 Blood Glucose Monitoring Suppl DeviceIndications :Type 2 diabetes mellitus without complication, without long-term current use of insulin ([facility]) glDiagnosis: Diabetes type 2 Blood testing frequency: once a day 1 Each 04/10/2023 docusate sodium 100 MG Capsule Take by mouth daily as needed for Constipation - 1st line. 02/02/2024 empagliflozin (JARDIANCE) 25 MG TabletIndications :Type 2 diabetes mellitus without complication, without long-term current use of insulin ([facility]) Take 1 Tablet by mouth daily. 90 Tablet 3 01/21/2024 furosemide (LASIX) 40 MG Tablet Take 0.5 Tablets by mouth daily. 90 Tablet 1 05/04/2021 Glucose Blood StripIndications: Type 2 diabetes mellitus without complication, without long-term current use of insulin ([facility]) Diagnosis: Diabetes type 2 Blood testing frequency: once a day 100 Strip 3 02/23/2021 levothyroxine (SYNTHROID) 75 MCG TabletIndications :Hypothyroidism, unspecified type Take 1 Tablet by mouth daily. 90 Tablet 1 01/16/2024 losartan (COZAAR) 25 MG Tablet 06/13/2021 magnesium oxide (MAG-OX) 400 MG Tablet Take 400 mg by mouth daily. metoprolol Succinate (TOPROL-XL) 100 MG TABLET SR 24 HR Take 2 Tablets by mouth daily. 135 Tablet 1 05/04/2021 simvastatin (ZOCOR) 40 MG Tablet 09/23/2022 VITAMIN D PO Take by mouth daily. warfarin (COUMADIN) 2 MG Tablet Take 3 mg by mouth. Takes 2mg one day and then the next 1.5mg alternating. 90 Tablet 11/30/2020 albuterol (Ventolin HFA) 108 (90 Base) MCG/ACT Aerosol Solution INHALE 2 PUFFS EVERY 4-6 HOURS NEEDED FOR SHORTNESS OF BREATH OR WHEEZING 18 g 2 06/28/2023 4 albuterol 108 (90 Base) MCG/ACT Aerosol Solution take 2 Puffs by inhalation every 4 hours as needed. 4 albuterol 108 (90 Base) MCG/ACT Aerosol Solution take 2 Puffs by inhalation every 4 hours as needed for Wheezing or Cough. 8 g 05/04/2022 4 gabapentin (NEURONTIN) 600 MG TabletIndications :Restless legs syndrome (RLS) Take 1 Tablet by mouth daily. 30 Tablet 03/17/2024 4 glipiZIDE (GLUCOTROL) 5 MG Tablet TAKE 1/2 TABLET BY MOUTH DAILY, AFTER BREAKFAST 90 Tablet 1 12/26/2023 4 levoFLOXacin (LEVAQUIN) 500 MG Tablet Take 500 mg by mouth. 02/02/2024 4 metFORMIN (GLUCOPHAGE) 1000 MG Tablet TAKE ONE TABLET BY MOUTH TWICE A DAY 180 Tablet 1 12/13/2023 4 PARoxetine (PAXIL) 40 MG Tablet TAKE ONE TABLET BY MOUTH EVERY DAY 90 Tablet 1 01/24/2024 4 SITagliptin (Januvia) 100 MG Tablet Take 1 Tablet by mouth daily. 90 Tablet 1 12/06/2023 4 traMADol (ULTRAM) 50 MG TabletIndications :Pain and swelling of right knee TAKE ONE TABLET BY MOUTH EVERY 6 HOURS NEEDED FOR MODERATE OR SEVERE PAIN 28 Tablet 03/17/2024 4 documented as of this encounter Plan of Treatment Upcoming Encounters Date Type Department Care Team (Late st Contact Info) Description 10/29/2024 9:30 AM BOILER ROOM OPERATOR Office Visit [facility] Medical [facility] - Family [facility] [address] [place] [id number] Bhargavi Morel PAC [address] [place] [address] documented as of this encounter Procedures Procedure Name Priority Date/Time Associated Diagnosis Comments XR KNEE 3 VIEWS RIGHT Routine 03/26/2024 8:39 AM CDT Right leg swelling documented in this encounter Results * XR KNEE 3 VIEWS RIGHT (03/26/2024 8:39 AM CDT) Anatomical Region Laterality Modality LOWER EXTREMITY, knee Right Digital Ra diography 03/26/2024 9:35 PM CDT Impressions 03/26/2024 9:38 PM CDT IMPRESSION: No acute fracture. 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 Jhrl-at-vvvmhrim joint effusion. Narrative 03/26/2024 9:38 PM CDT EXAM DESCRIPTION: XR KNEE 3 VIEWS RIGHT REASON FOR STUDY: Rt knee pain on and off x 1 year, worse the las 10 days ?? TECHNIQUE: There are 3 ??radiographic view(s) of the ??right knee . COMPARISON: No prior. FINDINGS: Normal mineralization. ??No acute fracture or dislocation. ?? Mild joint space narrowing medial compartment. ??Mild osteophyte formation of the patellofemoral joint. ??There is a qbhr-wc-ozivksqc joint effusion. ??Atherosclerotic change. THIS IS AN ELECTRONICALLY VERIFIED FINAL REPORT 03/26/2024 9:35 PM - Electronically signed by ??Naga Joyner M.D. MJ: VENANCIO D: ??03/26/2024 9:35 PM T: ??03/26/2024 9:35 PM Report ID: [id number] Reading Location: ??[id number] Procedure Note Naga Joyner MD - 03/26/2024 EXAM DESCRIPTION: XR KNEE 3 VIEWS RIGHT REASON FOR STUDY: Rt knee pain on and off x 1 year, worse the las 10 days TECHNIQUE: There are 3 radiographic view(s) of the right knee . COMPARISON: No prior. FINDINGS: Normal mineralization. No acute fracture or dislocation. Mild joint space narrowing medial compartment. Mild osteophyte formation of the patellofemoral joint. There is a krfw-az-njfcsxqb joint effusion. Atherosclerotic change. THIS IS AN ELECTRONICALLY VERIFIED FINAL REPORT 03/26/2024 9:35 PM - Electronically signed by Naga Joyner M.D. MJ: VENANCIO Report ID: [id number] Reading Location: [id number] IMPRESSION: No acute fracture. 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 Lnbc-mg-vrnuzlxm joint effusion. us Cole Garsia APRN, CNP IMG DIAGNOSTIC O RDERABLES Final Result documented in this encounter Visit Diagnoses Diagnosis Right leg swelling documented in this encounter Additional Health Concerns Assessment Noted Time PHQ-9 Depression Total Score: 0 10/17/19 24 12:52 PM BOILER ROOM OPERATOR documented as of this encounter Care Teams Electrician Helper Relationship Specialty Start Date End Date Bhargavi Morel PAC [address] [place] [address] PCP - General Physician Laminator 07/22/23 Flaquito Hrud MD [address] [place] [address] Consulting Physician Pulmonary Disease 11/09/22 Wes Petty MD #[address] [address] Consulting Physician Urology 01/18/24 documented as of this encounter
--- OUTSIDE RECORDS SUMMARY | 2024-08-30 18:47 | XMS_ITS | Encounter Summary ---
Author Organization [facility] Address [address] [place] [address] Phone Care Team Providers Care Capsule Filling Machine Operator Name Role Phone Bhargavi Morel ARAM Primary Care Provider + Flaquito Hurd MD Unavailable Wes Petty MD Unavailable Reason for Visit * Reason Comments Medication Refill Encounter Details Date Type Department Care Team (Late st Contact Info) Description 07/31/2024 Refill [facility] - [place] [address] [place] [address] Shanae Jesus, GARNISHMENT SPECIALIST, NURSE INFECTION CONTROL [address] [place] [address] Medication Refill Social History Tobacco Use Types Packs/Day Years Used Date Smoking Tobacco: Former Cigarettes 2 35 Smokeless Tobacco: Never Alcohol Use Standard Drinks/Week Comments Not Currently 0 (1 standard drink = 0.6 oz pur e alcohol) [facility] Utilities Answer Date Recorded In the past 12 months has [employer], gas, oil, or water company threatened to [...] declined 03/18/2024 How often do you attend latter day or quaker serv ices? Patient declined 03/18/2024 Do you belong to any clubs o r organizations such as latter day groups, unions, fraternal or athletic groups, or [...] Total Score - Questions 1-9 0 05/29 [facility] - Occupational Stress Questionnaire Answer Date [...] any time in the past 12 m [facility], were you homeless or living in a [...] Telephone Encounter - Reanna Rios RN - 07/31/2024 3:31 PM CST Images from the original note were not included. traMADol HCl Dispensed Days Supply Quantity Provider Pharmacy TRAMADOL 50MG TABLETS 07/02/2024 7 28 Each Shanae Jesus APRN, GAIL [facility] #... TRAMADOL 50MG TABLETS 05/28/2024 7 28 Each Bhargavi Morel PAC [facility] #... TRAMADOL 50MG TABLETS 04/18/2024 7 28 Each Bhargavi Morel PAC [facility] #... Medication failed the protocol, provider to review and approve the medication order if appropriate. Requested Prescriptions Pending Prescriptions Disp Refills traMADol (ULTRAM) 50 MG Tablet [Pharmacy Med Name: TRAMADOL 50MG TABLETS] 28 Tablet 0 Sig: TAKE 1 TABLET BY MOUTH EVERY 6 HOURS NEEDED FOR MODERATE TO SEVERE PAIN Not Delegated - Opioid Agonists Protocol Failed - 07/31/2024 11:36 AM Failed - This refill cannot be delegated Passed - Visit with relevant provider in past 12 months or upcoming 90 days Recent Visits Date Type Provider Dept 06/25/24 Office Visit Bhargavi Morel PAC [facility] [place] 03/18/24 Office Visit Cole Garsia APRN, GA[facility] 01/16/24 Office Visit Bhargavi Morel PAC [facility] 10/17/23 Office Visit Bhargavi Morel PAC [facility] Showing recent visits within past 365 days and meeting all other requirements Future Appointments Date Type Provider Dept 10/29/24 Appointment Bhargavi Morel PAC [facility] [place] Showing future appointments within next 90 days and meeting all other requirements TURNER MACHINE OPERATOR documented in this encounter Plan of Treatment Upcoming Encounters Date Type Department Care Team (Late st Contact Info) Description 10/29/2024 9:30 AM CUFF TURNER MACHINE OPERATOR [facility] [address] [place] [address] Bhargavi Morel PAC [address] [place] [address] documented as of this encounter Visit Diagnoses Diagnosis Pain and swelling of right knee documented in this encounter Additional Health Concerns Assessment Noted Time PHQ-9 Depression Total Score: 0 06/25/20 9:24 AM CDT documented as of this encounter Care Teams Capsule Filling Machine Operator Relationship Specialty Start Date End Date Bhargavi Morel PAC [address] [place] [address] PCP - General Physician Photographer Assistant 07/22/23 Flaquito Hurd MD [address] [place] [address] Consulting Physician Pulmonary Disease 11/09/22 Wes Petty MD [address] [address] Consulting Physician Urology 01/18/24 documented as of this encounter
--- OUTSIDE RECORDS SUMMARY | 2024-08-30 18:47 | XMS_ITS | Encounter Summary ---
Author Organization [facility] Address [address] [place] [address] Phone Care Team Providers Care Therapeutic Recreation Assistant Name Role Phone Bhargavi Morel Primary Care Provider + Flaquito Hurd MD Unavailable Wes Petty MD Unavailable Reason for Visit * Reason Onset Date Comments Results 06/25/2024 Encounter Details Date Type Department Care Team (Late st Contact Info) Description 06/25/2024 Telephone [facility] Medical Group - Family [facility] [address] [place] [address] Bhargavi Morel PAC [address] [place] [address] Results Social History Tobacco Use Types Packs/Day Years Used Date Smoking Tobacco: Former Cigarettes 2 35 Smokeless Tobacco: Never Alcohol Use Standard Drinks/Week Comments Not Currently 0 (1 standard drink = 0.6 oz pur e alcohol) [facility] Utilities Answer Date Recorded In the past 12 months has e electric, gas, oil, or water company [...] declined 03/18/2024 How often do you attend restorationism or episcopalian serv ices? Patient declined 03/18/2024 Do you belong to any clubs o r organizations such as restorationism groups, unions, fraternal or athletic groups, or [...] Recorded Total Score - Questions 1-9 0 10/ [facility] - Occupational Stress Questionnaire Answer Date Recorded [...] place to sleep or slept in a penitentiary (including now)? No 01/16/2024 Housing Stability Vital [...] any time in the past 12 m [facility], were you homeless or living in a penitentiary (including now)? Patient declined 03/18/2024 Education Answer [...] on file documented as of this encounter Functional Status * Question Answer Date of Assessment Author Little interest or pleasure in doing things Not at all 06/25/2024 9:24 AM CDT Denita George MA Feeling down, depressed, or hopeless Not at all 06/25/2024 9:24 AM CDT Denita George MA * Over the past 2 weeks, how often have you been bothered by any of the following problems? Question Answer Date of Assessment Author Patient Health Questionnaire -2 Score 0 06/25/2024 9:24 AM CDT Denita George MA documented as of this encounter Miscellaneous Notes * Telephone Encounter - Haven Segovia RN - 06/25/2024 4:07 PM CDT Spoke with patient to relay result note. Patient verbalizes understanding and has no questions at this time. * Telephone Encounter - Haven Segovia RN - 06/25/2024 4:05 PM CDT Images from the original note were not included. Bhargavi Morel PAC P Pep Nurse Pool Labs ok except blood sugars up a bit Patient can increase glipizide to 1 tablet daily with largest meal documented in this encounter Plan of Treatment Upcoming Encounters Date Type Department Care Team (Late st Contact Info) Description 10/29/2024 9:30 AM AUTO BATTERY BUILDER Office Visit [facility] [address] [place] [address] Bhargavi Morel PAC [address] [place] [address] documented as of this encounter Visit Diagnoses Not on filedocumented in this encounter Additional Health Concerns Assessment Noted Time PHQ-9 Depression Total Score: 0 06/25/20 24 9:24 AM CDT documented as of this encounter Care Teams Therapeutic Recreation Assistant Relationship Specialty Start Date End Date Bhargavi Morel PAC [address] [place] [address] PCP - General Physician City Dispatcher 07/22/23 Flaquito Hurd MD [address] [place] [address] Consulting Physician Pulmonary Disease 11/09/22 Wes Petty MD [address] [place] [address] Consulting Physician Urology 01/18/24 documented as of this encounter
--- OUTSIDE RECORDS SUMMARY | 2024-08-30 18:47 | XMS_ITS | Encounter Summary ---
Author Organization [facility] Address [address] [place] [address] Phone Care Team Providers Care [employer] Name Role Phone Bhargavi Morel Primary Care Provider + Flaquito Hurd MD Unavailable Wes Petty MD Unavailable Reason for Visit * Reason Comments Medication Refill Encounter Details Date Type Department Care Team (Late st Contact Info) Description 07/23/2024 Refill [facility] - Family Medicine [facility] [address] [place] [address] Bhargavi Morel PAC [address] [place] [address] Medication Refill Social History Tobacco Use Types Packs/Day Years Used Date Smoking Tobacco: Former Cigarettes 2 35 Smokeless Tobacco: Never Alcohol Use Standard Drinks/Week Comments Not Currently 0 (1 standard drink = 0.6 oz pur e alcohol) [facility] Utilities Answer Date Recorded In the past 12 months has [employer], gas, oil, or water company threatened to [...] declined 03/18/2024 How often do you attend protestant or pentecostal serv ices? Patient declined 03/18/2024 Do you belong to any clubs o r organizations such as protestant groups, unions, fraternal or athletic groups, or [...] Total Score - Questions 1-9 0 05/29 [facility] - Occupational Stress Questionnaire Answer Date [...] place to sleep or slept in a fdc (including now)? No 01/16/2024 Housing Stability Vital [...] any time in the past 12 m [facility], were you homeless or living in a fdc (including now)? Patient declined 03/18/2024 Education Answer [...] Telephone Encounter - Reanna Rios RN - 07/23/2024 2:56 PM CST Medication failed the protocol, provider to review and approve the medication order if appropriate. Requested Prescriptions Pending Prescriptions Disp Refills gabapentin (NEURONTIN) 600 MG Tablet [Pharmacy Med Name: GABAPENTIN 600MG TABLETS] 30 Tablet 0 Sig: Take 1 Tablet by mouth daily. Not Delegated - Anticonvulsants Excluding Benzodiazepines Protocol Failed - 07/23/2024 10:21 AM Failed - This refill cannot be delegated Passed - Visit with relevant provider in past 12 months or upcoming 90 days Recent Visits Date Type Provider Dept 06/25/24 Office Visit Bhargavi Morel, ARAM [facility] [place] 03/18/24 Office Visit Cole Garsia APRN, GAIL [facility] [place] 01/16/24 Office Visit Bhargavi Morel, ARAM [facility] [place] 10/17/23 Office Visit Bhargavi Morel, PAC [facility] [place] Showing recent visits within past 365 days and meeting all other requirements Future Appointments No visits were found meeting these conditions. Showing future appointments within next 90 days and meeting all other requirements PRINTER documented in this encounter Plan of Treatment Upcoming Encounters Date Type Department Care Team (Late st Contact Info) Description 10/29/2024 9:30 AM TELEPRINTER Office Visit [facility] Medical Group - Family [facility] [address] [place] [address] [employer] Bhargavi Goldberg, PAC [address] [place] [address] documented as of this encounter Visit Diagnoses Diagnosis Restless legs syndrome (RLS) documented in this encounter Additional Health Concerns Assessment Noted Time PHQ-9 Depression Total Score: 0 06/25/20 9:24 AM CDT documented as of this encounter Care Teams [employer] Relationship Specialty Start Date End Date Bhargavi MorelARAM #[address] [place] [address] PCP - General Physician Crystal Lapper 07/22/23 Flaquito Hurd MD [address] [place] [address] Consulting Physician Pulmonary Disease 11/09/22 Wes Petty MD #[address] [address] Consulting Physician Urology 01/18/24 documented as of this encounter
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
--- OUTSIDE RECORDS SUMMARY | 2024-08-30 18:47 | XMS_ITS | Encounter Summary ---
Author Organization [facility] Address [address] [place] [address] Phone Care Team Providers Care Bartender Helper Name Role Phone Bhargavi Morel PAC Primary Care Provider + Flaquito Hurd MD Unavailable Wes Petty MD Unavailable Reason for Visit * Reason Onset Date Comments Results 08/15/2024 Encounter Details Date Type Department Care Team (Late st Contact Info) Description 08/15/2024 Telephone [facility] [address] [place] [address] Bhargavi Morel, PAC [address] [place] [address] Results Social History Tobacco Use Types Packs/Day Years Used Date Smoking Tobacco: Former Cigarettes 2 35 Smokeless Tobacco: Never Alcohol Use Standard Drinks/Week Comments Not Currently 0 (1 standard drink = 0.6 oz pur e alcohol) [facility] Utilities Answer Date Recorded In the past 12 months has [employer] electric, gas, oil, or water company threatened [...] declined 03/18/2024 How often do you attend yazdanism or hoahaoism serv ices? Patient declined 03/18/2024 Do you belong to any clubs o r organizations such as yazdanism groups, unions, fraternal or athletic groups, or [...] Total Score - Questions 1-9 0 05/29 [facility] - Occupational Stress Questionnaire Answer Date [...] place to sleep or slept in a senior care (including now)? No 01/16/2024 Housing Stability Vital [...] any time in the past 12 m [facility], were you homeless or living in a senior care (including now)? Patient declined 03/18/2024 Education Answer [...] encounter Miscellaneous Notes * Telephone Encounter - Marsha Ontiveros RN - 08/15/2024 3:34 PM LABORATORY CHEMICAL ASSISTANT Situation: Results Background: Patient calling inquiring about urinalysis results from 08/13/24. Assessment: Upon chart review, labs have not been viewed yet by the provider. Informed patient thatshe should contact urology office as they are the ones that ordered lab. Recommendation: Patient verbalized understanding and agreeable. No further needs at this time. RATORY CHEMICAL ASSISTANT documented in this encounter Plan of Treatment Upcoming Encounters Date Type Department Care Team (Late st Contact Info) Description 10/29/2024 9:30 AM LABORATORY CHEMICAL ASSISTANT Office Visit [facility] - Family [facility] [address] [place] [address] Bhargavi Morel PAC [address] [place] [address] documented as of this encounter Visit Diagnoses Not on filedocumented in this encounter Additional Health Concerns Assessment Noted Time PHQ-9 Depression Total Score: 0 06/25/20 9:24 AM CDT documented as of this encounter Care Teams Bartender Helper Relationship Specialty Start Date End Date Bhargavi Morel PAC [address] [place] [address] PCP - General Physician Padder Cushion 07/22/23 Flaquito Hurd MD [address] [place] [address] Consulting Physician Pulmonary Disease 11/09/22 Wes Petty MD [address] [address] Consulting Physician Urology 01/18/24 documented as of this encounter
--- OUTSIDE RECORDS SUMMARY | 2024-08-30 18:47 | XMS_ITS | Encounter Summary ---
Author Organization [employer] Care Team Providers Care Steno Pool Supervisor Name Role Phone Bhargavi Morel ARAM Primary Care Provider + Flaqiuto Hurd MD Unavailable Wes Petty MD Unavailable Encounter Details Date Type Department Care Team (Latest Contact Info) Description 06/25/2024 Travel Social History Tobacco Use Types Packs/Day Years Used Date Smoking Tobacco: Former Cigarettes 2 35 Smokeless Tobacco: Never Alcohol Use Standard Drinks/Week Comments Not Currently 0 (1 standard drink = 0.6 oz pur e alcohol) [facility] Utilities Answer Date Recorded In the past 12 months has [employer] electric, gas, oil, or water company threatened [...] declined 03/18/2024 How often do you attend nondenominational or yazidi serv ices? Patient declined 03/18/2024 Do you belong to any clubs o r organizations such as nondenominational groups, unions, fraternal or athletic groups, or [...] Total Score - Questions 1-9 0 05/29 [facility] - Occupational Stress Questionnaire Answer Date [...] George MA documented as of this encounter Plan of Treatment Upcoming Encounters Date Type Department Care Team (Late st Contact Info) Description 10/29/2024 9:30 AM SUPPORT SERVICE TECH Office Visit [facility] [address] [place] [phone] Bhargavi Morel PAC [address] [place] [address] documented as of this encounter Visit Diagnoses Not on filedocumented in this encounter Additional Health Concerns Assessment Noted Time PHQ-9 Depression Total Score: 0 06/25/20 9:24 AM CDT documented as of this encounter Care Teams Steno Pool Supervisor Relationship Specialty Start Date End Date Bhargavi Morel PAC [address] [place] [address] PCP - General Physician Bobtail Driver 07/22/23 Flaquito Hurd MD [address] [place] [phone] Consulting Physician Pulmonary Disease 11/09/22 Wes Petty MD [address] [phone] Consulting Physician Urology 01/18/24 documented as of this encounter
--- OUTSIDE RECORDS SUMMARY | 2024-08-30 18:47 | XMS_ITS | Encounter Summary ---
Author Organization [facility] Address [address] [place] [address] Phone Care Team Providers Care Private Eye Name Role Phone Bhargavi Morel Primary Care Provider + Flaquito Hurd MD Unavailable Wes Petty MD Unavailable Reason for Visit * Reason Comments Medication Refill Encounter Details Date Type Department Care Team (Late st Contact Info) Description 05/27/2024 Refill [facility] - Family Medicine [facility] [address] [place] [address] Bhargavi Morel PAC [address] [place] [address] Medication Refill Social History Tobacco Use Types Packs/Day Years Used Date Smoking Tobacco: Former Cigarettes 2 35 Smokeless Tobacco: Never Alcohol Use Standard Drinks/Week Comments Not Currently 0 (1 standard drink = 0.6 oz pur e alcohol) [facility] Utilities Answer Date Recorded In the past 12 months has [employer], gas, oil, or water company threatened to [...] How often do you attend restorationism or tenriism serv ices? Patient declined 03/18/2024 Do you [...] Total Score - Questions 1-9 0 09/28 [facility] - Occupational Stress Questionnaire Answer [...] any time in the past 12 m [facility], were you homeless or living in [...] Telephone Encounter - Reanna Rios RN - 05/28/2024 10:12 AM CDT Images from the original note were not included. traMADol HCl Dispensed Days Supply Quantity Provider Pharmacy TRAMADOL 50MG TABLETS 04/18/202403 23 Bhargavi Cooper [facility] #... tramadol 50 mg tablet 03/19/202403 23 Tablet Sulema Page APRN, CRAWLER CRANE OPERATOR [facility]... Medication failed the protocol, provider to review and approve the medication order if appropriate. Requested Prescriptions Pending Prescriptions Disp Refills traMADol (ULTRAM) 50 MG Tablet [Pharmacy Med Name: TRAMADOL 50MG TABLETS] 28 Tablet 0 Sig: TAKE 1 TABLET BY MOUTH EVERY 6 HOURS NEEDED FOR MODERATE TO SEVERE PAIN Not Delegated - Opioid Agonists Protocol Failed - 05/27/2024 6:03 PM Failed - This refill cannot be delegated Passed - Visit with relevant provider in past 12 months or upcoming 90 days Recent Visits Date Type Provider Dept 03/18/24 Office Visit Cole Garsia APRN, CRAWLER CRANE OPERATOR [facility] 01/16/24 Office Visit Bhargavi Morel PAC [facility] 10/17/23 Office Visit Bhargavi Morel PAC [facility] 07/11/23 Office Visit Bhargavi Morel PAC [facility] Showing recent visits within past 365 days and meeting all other requirements Future Appointments Date Type Provider Dept 06/25/24 Appointment Bhargavi Morel PAC [facility] Showing future appointments within next 90 days and meeting all other requirements documented in this encounter Plan of Treatment Upcoming Encounters Date Type Department Care Team (Late st Contact Info) Description 10/29/2024 9:30 AM HAND TOUCH UP PAINTER Office Visit [facility] - Family Medicine [facility] [address] [place] [address] Bhargavi Morel PAC [address] [place] [address] documented as of this encounter Visit Diagnoses Diagnosis Pain and swelling of right knee documented in this encounter Additional Health Concerns Assessment Noted Time PHQ-9 Depression Total Score: 0 10/17/19 24 12:52 PM HAND TOUCH UP PAINTER documented as of this encounter Care Teams Private Eye Relationship Specialty Start Date End Date Bhargavi Morel PAC [address] [place] [address] PCP - General Physician Fluorescent Lighting Model Maker 07/22/23 Flaquito Hurd MD [address] [place] [address] Consulting Physician Pulmonary Disease 11/09/22 Wes Petty MD [address] [phone] Consulting Physician Urology 01/18/24 documented as of this encounter
--- OUTSIDE RECORDS SUMMARY | 2024-08-30 18:47 | XMS_ITS | Encounter Summary ---
Author Organization [facility] Address [address] [place] [address] Phone Care Team Providers Care Counter Top Assembler Name Role Phone Bhargavi Morel Primary Care Provider + Flaquito Hurd MD Unavailable Wes Petty MD Unavailable Reason for Visit * Reason Comments Medication Refill Encounter Details Date Type Department Care Team (Late st Contact Info) Description 06/19/2024 Refill [facility] - Family Medicine [facility] [address] [place] [address] Bhargavi Morel PAC [address] [place] [address] Medication Refill Social History Tobacco Use Types Packs/Day Years Used Date Smoking Tobacco: Former Cigarettes 2 35 Smokeless Tobacco: Never Alcohol Use Standard Drinks/Week Comments Not Currently 0 (1 standard drink = 0.6 oz pur e alcohol) [facility] Utilities Answer Date Recorded In the past 12 months has [employer], gas, oil, or water company threatened to [...] declined 03/18/2024 How often do you attend yarsani or mandaeism serv ices? Patient declined 03/18/2024 Do you belong to any clubs o r organizations such as yarsani groups, unions, fraternal or athletic groups, or [...] Total Score - Questions 1-9 0 09/28 [facility] - Occupational Stress Questionnaire Answer [...] place to sleep or slept in a jail (including now)? No 01/16/2024 Housing Stability Vital [...] any time in the past 12 m [facility], were you homeless or living in a jail (including now)? Patient declined 03/18/2024 Education Answer [...] Telephone Encounter - Reanna Rios RN - 06/19/2024 9:52 AM CDT Medication(s) refilled and signed per [facility] Chronic Medication Refill Standing Order for Pediatricand Adult Patients. Requested Prescriptions Pending Prescriptions Disp Refills Januvia 100 MG Tablet [Pharmacy Med Name: JANUVIA 100 MG TABLET] 90 Tablet 1 Sig: TAKE 1 TABLET BY MOUTH EVERY DAY DPP-4 Inhibitors Protocol Passed - 06/19/2024 12:51 AM Passed - Visit with relevant provider in past 6 months or upcoming 90 days Recent Visits Date Type Provider Dept 03/18/24 Office Visit Cole Garsia, DEDICATED LOCAL TRUCK DRIVER, BACKEND TESTER [facility] 01/16/24 Office Visit Bhargavi Morel PAC [facility] Showing recent visits within past 182 days and meeting all other requirements Future Appointments Date Type Provider Dept 06/25/24 Appointment [facility] Show[facility] future appointments within next 90 days and meeting all other requirements Passed - HgA1C on record in the past 6 months HGB-A1C Date Value Ref Range Status 01/16/2024 7.7 (H) 4.0 - 6.0 % Final Passed - GFR on record in past 6 months GFR, EST. NONAFRICAN Date Value Ref Range Status 03/26/2024 >60 >=60 Final documented in this encounter Plan of Treatment Upcoming Encounters Date Type Department Care Team (Late st Contact Info) Description 10/29/2024 9:30 AM ENTRY LEVEL SOFTWARE ENGINEER Office Visit [facility] [address] [place] [address] Bhargavi Morel PAC [address] [place] [address] documented as of this encounter Visit Diagnoses Not on filedocumented in this encounter Additional Health Concerns Assessment Noted Time PHQ-9 Depression Total Score: 0 10/17/19 24 12:52 PM ENTRY LEVEL SOFTWARE ENGINEER documented as of this encounter Care Teams Counter Top Assembler Relationship Specialty Start Date End Date Bhargavi Morel PAC [address] [place] [address] PCP - General Physician Salon Leader 07/22/23 Flaquito Hurd MD [address] [place] [address] Consulting Physician Pulmonary Disease 11/09/22 Wes Petty MD [address]2 [facility] [address] [place] [address] Consulting Physician Urology 01/18/24 documented as of this encounter
--- OUTSIDE RECORDS SUMMARY | 2024-08-30 18:47 | XMS_ITS | Encounter Summary ---
Author Organization [facility] Address [address] [place] [address] Phone Care Team Providers Care Cell Biologist Name Role Phone Bhargavi Morel Primary Care Provider + Flaquito Hurd MD Unavailable Wes Petty MD Unavailable Reason for Referral * Consult, Test & Initiate Treatment (Routine) - Pending Review Specialty Diagnoses / Procedures Referred By Shayan dhillon Referred To Contact Diagnoses Frequent UTI Procedures OFFICE/OP NEW LVL 3 LOW MDM/30-44 MIN OFFICE/OP EST LVL 3 LOW MDM/20-29 MIN Bhargavi Morel PAC [address] [place] [address] Phone: tel: fax: [facility] [address] [place] [address] Phone: tel: fax: Referral ID Status Reason Start Date Expiration Date V isits Requested Visits Authorized [id number] Pending Review 06/25/2024 1 11 Scheduling Instructions Tressa is being referred for frequent uti, request Ozzy Elliott. Please contact patient for scheduling questions or concerns. * Consult, Test & Initiate Treatment (Routine) - Closed Specialty Diagnoses / Procedures Referred By Contac t Referred To Contact Diagnoses Sleep apnea, unspecified type Low oxygen saturation Chronic shortness of breath Procedures OFFICE/OP NEW LVL 3 LOW MDM/30-44 MIN OFFICE/OP EST LVL 3 LOW MDM/20-29 MIN Bhargavi Morel PAC [address] [place] [address] Phone: tel: fax: [facility] [address] [place] [address] Phone: tel: fax: Referral ID Status Reason Start Date Expiration Date Visits Re quested Visits Authorized [id number] Closed 06/25/2024 1 11 Scheduling Instructions Tressa is being referred for chronic sob, low oxygen, sleep apnea, see Debra. Please contact patient for scheduling questions or concerns. Reason for Visit * Reason Comments Follow-up Is requesting refill s for inhaler and gabapentin. Encounter Details Date Type Department Care Team (Late st Contact Info) Description 06/25/2024 9:15 AM CDT Office Visit [facility] [address] [place] [address] Bhargavi Morel PAC [address] [place] [address] Type 2 diabetes mellitus without complication, without [...] th e electric, gas, oil, or water [employer] threatened to shut off services in your home? Patient declined 03/18/2024 Social Connection and Isolation Panel [NHANES] A nswer Date Recorded In a typical week, how many times do you talk on the phone with family, friends, or neighbors? Patient declined 03/18/2024 How often do you get togethe r with friends or relatives? Patient declined 03/18/2024 How often do you attend latter-day or evangelical serv ices? Patient declined 03/18/2024 Do you belong to any clubs o r organizations such as latter-day groups, unions, fraternal or athletic groups, or [...] Total Score - Questions 1-9 0 05/29 [facility] Occupat ional Health - Occupational Stress [...] any time in the past 12 m [employer] [place] [place], were you homeless or living in a [...] Sign Reading Time Taken Comments Blood Pressure 100/60 06/25/2024 9:14 AM CDT Pulse 67 06/25/2024 9:14 AM CDT Temperature 36.3 ??C (97.4 ??F) 06/25/2024 9:14 AM CD T Respiratory Rate 12 06/25/2024 9:14 AM CDT Oxygen Saturation 90% 06/25/2024 9:14 AM CDT Inhaled Oxygen Concentration - - Weight 96.2 kg (212 lb) 06/25/2024 9:14 AM CDT Height 165.1 cm (5' 5 ) 06/25/2024 9:14 AM CDT Body Mass Index 35.28 06/25/2024 9:14 AM CDT documented in this encounter Functional Status * Question Answer [...] George MA documented as of this encounter Patient Instructions * Patient Instructions* Bhargavi Morel PAC - 06/25/2024 9:15 AM CDT Labs today as ordered documented in this encounter Progress Notes * Denita George MA - 06/25/2024 9:15 AM CDT Tressa Derek Myers, 69 y.o., female is here for Follow-up (Is requesting refills for inhaler and gabapentin.) Medication Refills: Patient reports/denies need for medication refills. Orders Pended: yes Requested Prescriptions Pending Prescriptions Disp Refills gabapentin (NEURONTIN) 600 MG Tablet 30 Tablet 0 Sig: Take 1 Tablet by mouth daily. Home Medications Medication Sig Start Date End Date Taking? Authorizing Provider albuterol (Ventolin HFA) 108 (90 Base) MCG/ACT Aerosol Solution INHALE 2 PUFFS EVERY 4-6 HOURS NEEDED FOR SHORTNESS OF BREATH OR WHEEZING 06/28/23 Yes Jovita Bermudez MD albuterol 108 (90 Base) MCG/ACT Aerosol Solution take 2 Puffs by inhalation every 4 hours as needed. Patient not taking: Reported on 06/25/2024 Homero Pugh MD albuterol 108 (90 Base) MCG/ACT Aerosol Solution take 2 Puffs by inhalation every 4 hours as neededfor Wheezing or Cough. Patient not taking: Reported on 06/25/2024 05/04/22 Bhargavi Morel PAC Ascorbic Acid 500 MG Chewable Tablet Take 500 mg by mouth. Yes Homero Pugh MD aspirin EC 81 MG Tablet Delayed Response Take 81 mg by mouth. Yes Homero Pugh MD betamethasone valerate (VALISONE) 0.1 % Ointment APPLY TWICE DAILY TO AREA ON LEGS 01/07/24 Yes Bhargavi Morel PAC Blood Glucose Monitoring Suppl Device glDiagnosis: Diabetes type 2 Blood testing frequency: once a day 04/10/23 Yes Bhargavi Morel PAC dilTIAZem (CARDIZEM CD) 120 MG CAPSULE SR 24 HR Take 120 mg by mouth daily. Yes Homero Pugh MD docusate sodium 100 MG Capsule Take by mouth daily as needed for Constipation - 1st line. Patient not taking: Reported on 04/30/2024 02/02/24 Homero Pugh MD empagliflozin (JARDIANCE) 25 MG Tablet Take 1 Tablet by mouth daily. 01/21/24 Yes Bhargavi oMrel PAC furosemide (LASIX) 40 MG Tablet Take 0.5 Tablets by mouth daily. 05/04/21 Yes Jovita Bermudez MD gabapentin (NEURONTIN) 600 MG Tablet Take 1 Tablet by mouth daily. 03/17/24 Yes Debra Roque APRN, GAIL glipiZIDE (GLUCOTROL) 5 MG Tablet TAKE 1/2 TABLET BY MOUTH DAILY, AFTER BREAKFAST 12/26/23 Yes Bhargavi Morel PAC Glucose Blood Strip Diagnosis: Diabetes type 2 Blood testing frequency: once a day 02/23/21 Yes Jovita Bermudez MD Januvia 100 MG Tablet TAKE 1 TABLET BY MOUTH EVERY DAY 06/19/24 Yes Bhargavi Morel PAC levoFLOXacin (LEVAQUIN) 500 MG Tablet Take 500 mg by mouth. Patient not taking: Reported on 06/25/2024 02/02/24 Homero Pugh MD levothyroxine (SYNTHROID) 75 MCG Tablet Take 1 Tablet by mouth daily. 01/16/24 Yes Bhargavi Morel PAC losartan (COZAAR) 25 MG Tablet 06/13/21 Yes Homero Pugh MD magnesium oxide (MAG-OX) 400 MG Tablet Take 400 mg by mouth daily. Yes Homero Pugh MD metFORMIN (GLUCOPHAGE) 1000 MG Tablet Take 1 Tablet by mouth 2 times daily. 04/29/24 Yes Bhargavi Morel PAC metoprolol Succinate (TOPROL-XL) 100 MG TABLET SR 24 HR Take 2 Tablets by mouth daily. 05/04/21 Yes Jovita Bermudez MD PARoxetine (PAXIL) 40 MG Tablet Take 1 Tablet by mouth daily. 04/29/24 Yes Bhargavi Morel PAC simvastatin (ZOCOR) 40 MG Tablet 09/23/22 Yes Homero Pugh MD traMADol (ULTRAM) 50 MG Tablet TAKE 1 TABLET BY MOUTH EVERY 6 HOURS NEEDED FOR MODERATE TO SEVERE PAIN 05/28/24 Yes Bhargavi Morel PAC VITAMIN D PO Take by mouth daily. Yes Homero Pugh MD warfarin (COUMADIN) 2 MG Tablet Take 3 mg by mouth. Takes 2mg one day and then the next 1.5mg alternating. 11/30/20 Yes Jovita Bermudez MD There are no discontinued medications. I have reviewed the home medication list with the patient and have reconciled discrepancies. The list is accurate to the best of my knowledge. Smoking Status: Social History Tobacco Use Smoking status: Former Current packs/day: 2.00 Average packs/day: 2.0 packs/day for 35.0 years (70.0 ttl pk-yrs) Types: Cigarettes Smokeless tobacco: Never Vaping Use Vaping status: Never Used Substance Use Topics Alcohol use: Not Currently Drug use: Yes Types: Marijuana Comment: a few times per week Smoking Cessation Counseling Given: no Health Care Maintenance: Health Maintenance Due Topic Date Due Diabetes: Eye Exam Never done DEXA Bone Density Never done Diabetes: Foot Exam Never done Colorectal Cancer Screening Never done Mammogram Never done Zoster Immunization (1 of 2) Never done Influenza Immunization (1) 04/27/2024 SARS-COV-2 Immunization (6 - 2024-25 season) 2024 Orders Pended: yes The following BPA's have been addressed with the patient today: Flu, Colonoscopy, Mammogram, and Depression SDOH and DIABETIC EYE EXAM * Denita George MA - 06/25/2024 9:15 AM CDT Tressa is here for Flu immunizations per order of Bhargavi Morel PA-C dated 06/25/24. Administered in left deltoid . Vaccine Information Sheet(s) were given on 06/25/24. Verbal consent was obtained. Tressa tolerated the immunization well without incident. See Immunization activity for details. * Bhargavi Morel PAC - 06/25/2024 9:15 AM CDT Subjective: Subjective Patient is in the office today to follow-up on chronic health conditions. Has type 2 diabetes that is fair control. Congestive heart failure follows up routinely with drainlayer. Atrial flutter on anticoagulation. Denies any increase in shortness a breath. Discuss she wears oxygen with her CPAP. In the past she has been told she has COPD. Denies any increased cough denies any increased mucus orsputum production. Denies paroxysmal nocturnal dyspnea. Denies any chest pains. Has frequent urinary tract infections. Denies any symptoms at this time. Review of Systems Constitutional: Negative for chills and fever. HENT: Negative for congestion, sore throat and trouble swallowing. Respiratory: Chronic cough and shortness of breath no worsening. Albuterol inhaler has helped her shortness a breath. Cardiovascular: Negative for chest pain. Gastrointestinal: Negative for abdominal pain and nausea. Genitourinary: Negative for difficulty urinating and dysuria. Neurological: Negative for weakness and headaches. Objective: Objective Physical Exam Vitals reviewed. Constitutional: Appearance: Normal appearance. She is not ill-appearing. HENT: Head: Normocephalic and atraumatic. Eyes: General: Right eye: No discharge. Left eye: No discharge. Extraocular Movements: Extraocular movements intact. Cardiovascular: Comments: irregular rhythm. Normal heart rate. Pulmonary: Effort: Pulmonary effort is normal. No respiratory distress. Breath sounds: Normal breath sounds. No wheezing. Neurological: Mental Status: She is alert. Psychiatric: Mood and Affect: Mood normal. Assessment and Plan Assessment & Plan See Diagnoses, Orders, Follow-up, and Instructions ..Diagnoses and all orders for this visit: Type 2 diabetes mellitus without complication, without long-term current use of insulin (HCC) - CMP (COMPREHENSIVE METABOLIC PANEL); Future - COMPLETE BLOOD COUNT (CBC) WITH DIFF; Future - HEMOGLOBIN A1C W/ ESTIMATED GLUCOSE; Future - MAGNESIUM (MG); Future Restless legs syndrome (RLS) - gabapentin (NEURONTIN) 600 MG Tablet; Take 1 Tablet by mouth daily. Hypothyroidism, unspecified type - THYROID STIMULATING HORMONE (TSH); Future Sleep apnea, unspecified type - PULMONARY REFERRAL; Future Low oxygen saturation - PULMONARY REFERRAL; Future Chronic shortness of breath - PULMONARY REFERRAL; Future Frequent UTI - UROLOGY REFERRAL; Future Other orders - dilTIAZem (CARDIZEM CD) 120 MG CAPSULE SR 24 HR; Take 120 mg by mouth daily. - Discontinue: levoFLOXacin (LEVAQUIN) 500 MG Tablet; Take 500 mg by mouth. (Patient not taking: Reported on 06/25/2024) - INFLUENZA TRIVALENT ADJUVANTED VACCINE IM - INFLUENZA IMMUNIZATION QUESTIONS - albuterol (Ventolin HFA) 108 (90 Base) MCG/ACT Aerosol Solution; INHALE 2 PUFFS EVERY 4-6 HOURS NEEDED FOR SHORTNESS OF BREATH OR WHEEZING - Evaxiemtaxk-Bbesjyyul-Bxtdap (Trelegy Ellipta) 100-62.5-25 MCG/ACT AEROSOL POWDER, BREATH ACTIVATED; take 1 Puff by inhalation daily. Patient will continue with current medication for diabetes. Suggest consult with urologist for frequent urinary tract infections. Referral is placed. Discussed hypoxia chronic cough shortness a breath suggest consult with pulmonology. Referral placed. Refilled albuterol. Discussed previous diagnosis is COPD suggest trilogy. Discussed use of medicine possible side effects notify of any problems. Thyroid in range continue current dose of levothyroxine. Refilled gabapentin for restless legs. Return to clinic in 4 months notify of any acute problems. documented in this encounter Plan of Treatment Upcoming Encounters Date Type Department Care Team (Late st Contact Info) Description 10/29/2024 9:30 AM CHILDCARE CENTER DIRECTOR Office Visit [facility] [address] [place] [address] Bhargavi Morel, PAC [address] [place] [address] Scheduled Referrals Name Type Priority Associated Diagnoses Orde r Schedule PULMONARY REFERRAL Outpatient Referral Routine Sleep apnea, unspecified type Low oxygen saturation Chronic shortness of breath Expected: 06/25/2024, Expires: 06/25/2025 UROLOGY REFERRAL Outpatient Referral Routine Frequent UTI Expected: 06/25/2024, Expires: 06/25/2025 documented as of this encounter Results * THYROID STIMULATING HORMONE (TSH) (06/25/2024 10:06 AM CDT) TSH 2.955 0.300 - 5.000 mIU/L 06/25/2024 12:57 PM CDT [facility] Blood Venipuncture / Unknown 06/25/2024 10:06 AM CDT 06/25/2024 10:06 AM CDT us Bhargavi Morel PAC CHEMISTRY ORDERABLES Fin al Result [facility] [address] [place] [address] * MAGNESIUM (MG) (06/25/2024 10:06 AM CDT) MAGNESIUM 1.9 1.6 - 2.6 mg/dL 06/25/2024 12:45 PM CDT [facility] Blood Venipuncture / Unknown 06/25/2024 10:06 AM CDT 06/25/2024 10:06 AM CDT us Bhargavi Morel PAC CHEMISTRY ORDERABLES Fin al Result [facility] [address] [place] [address] * (ABNORMAL) HEMOGLOBIN A1C W/ ESTIMATED GLUCOSE (06/25/2024 10:06 AM CDT) HGB-A1C 7.9(H) 4.0 - 6.0 % 06/25/2024 12:29 PM CDT [facility] Est Average Glucose 180.0 mg/dL 06/25/2024 12:29 PM CDT [facility] Blood Venipuncture / Unknown 06/25/2024 10:06 AM CDT 06/25/2024 10:06 AM CDT Narrative [facility] - 06/25/2024 12:29 PM CDT HEMOGLOBIN A1C: DIABETIC PATIENTS: WELL-CONTROLLED: ?? 6.2 - 7.0 INTERMEDIATE WELL-CONTROLLED: ??7.0 - 9.0 POORLY-CONTROLLED: ??>9.0 us Bhargavi Morel PAC CHEMISTRY ORDERABLES Fin al Result Performing Organization Address City/[facility] Co de Phone Number [facility] [address] [place] [address] * (ABNORMAL) CMP (COMPREHENSIVE METABOLIC PANEL) (06/25/2024 10:06 AM CDT) SODIUM 138 136 - 145 mmol/L 06/25/2024 12:45 PM CDT [facility] POTASSIUM 4.4 3.5 - 5.1 mmol/L 06/25/2024 12:45 PM CDT [facility] CHLORIDE 102 98 - 107 mmol/L 06/25/2024 12:45 PM CDT [facility] CO2, VENOUS 29 22 - 30 mmol/L 06/25/2024 12:45 PM CDT [facility] ANION GAP 11.4 <18.0 mmol/L 06/25/2024 12:45 PM CDT [facility] GLUCOSE 180(H) 70 - 99 mg/dL 06/25/2024 12:45 PM CDT [facility] BUN 17 10 - 20 mg/dL 06/25/2024 12:45 PM T [facility] CREATININE, BLOOD 0.78 0.60 - 1.00 mg/dL 06/25/2024 12:45 PM CDT [facility] BUN/CREATININE RATIO 22(H) 12 - 20 ratio 06/25/2024 12:45 PM CDT [facility] TOTAL PROTEIN 7.7 6.3 - 8.2 g/dL 06/25/2024 12:45 PM T [facility] ALBUMIN 3.7 3.5 - 5.0 g/dL 06/25/2024 12:45 PM CDT [facility] A/G RATIO 0.9(L) 1.0 - 2.2 06/25/2024 12:45 PM CDT [facility] CALCIUM 9.9 8.7 - 10.5 mg/dL 06/25/2024 12:45 PM CDT [facility] T BILI 0.5 0.2 - 1.2 mg/dL 06/25/2024 12:45 PM T [facility] SGOT (AST) 25 5 - 34 U/L 06/25/2024 12:45 PM T [facility] SGPT (ALT) 20 0 - 55 U/L 06/25/2024 12:45 PM CDT [facility] ALKALINE PHOSPHATASE 104 40 - 150 U/L 06/25/2024 12:45 PM T [facility] IS THE PATIENT REQUIRED TO BE FASTING? No 06/25/2024 12:45 PM T [facility] GFR, ESTIMATED >60 >=60 06/25/2024 12:45 PM CDT [facility] Comment: Creatinine Clearance is the preferred criteria for selecting drug dose adjustments in renally impaired patients. ??The GFR is provided as additional pertinent clinical information. GFR is reported in mL/min/1.73 sq m. Calculation based on the Chronic Kidney Disease Epidemiology Collaboration (CKD- EPI) equation refit without adjustment for race. GFR, EST. >60 >=60 024 12:45 PM CDT [facility] GFR, EST. NONAFRICAN >60 >=60 06/25/2024 12:45 PM CDT [facility] Blood Venipuncture / Unknown 06/25/2024 10:06 AM CDT 06/25/2024 10:06 AM CDT us Bhargavi Morel PAC CHEMISTRY ORDERABLES Fin al Result [facility] [address] [place] [address] documented in this encounter Visit Diagnoses Diagnosis Type 2 diabetes mellitus without complication, without long-term current use of insulin (HCC)- Primary Restless legs syndrome (RLS) Hypothyroidism, unspecified type Sleep apnea, unspecified type Low oxygen saturation Abnormal arterial blood gases Chronic shortness of breath Frequent UTI Urinary tract infection, site not specified documented in this encounter Additional Health Concerns Assessment Noted Time PHQ-9 Depression Total Score: 0 06/25/20 24 9:24 AM CDT documented as of this encounter Care Teams Cell Biologist Relationship Specialty Start Date End Date Bhargavi Morel PAC [address] [place] [address] PCP - General Physician [employer] 07/22/23 Flaquito Hurd MD [address] [place] [id number] Consulting Physician Pulmonary Disease 11/09/22 Wes Petty MD [address] [address] Consulting Physician Urology 01/18/24 documented as of this encounter
--- OUTSIDE RECORDS SUMMARY | 2024-08-30 18:47 | XMS_ITS | Encounter Summary ---
Author Organization [facility] Address [address] [place] [address] Phone Care Team Providers Care Etymology Professor Name Role Phone Bhargavi Morel Primary Care Provider + Flaquito Hurd MD Unavailable Wes Petty MD Unavailable Reason for Visit * Reason Onset Date Comments Urinary Problem 08/08/2024 Vaginal Pain 08/08/2024 Encounter Details Date Type Department Care Team (Late st Contact Info) Description 08/08/2024 Nurse Triage [facility] [address] [place] [address] Bhargavi Morel, PAC [address] [place] [address] Urinary Problem; Vaginal Pain Social History Tobacco Use Types Packs/Day Years Used Date Smoking Tobacco: Former Cigarettes 2 35 Smokeless Tobacco: Never Alcohol Use Standard Drinks/Week Comments Not Currently 0 (1 standard drink = 0.6 oz pur e alcohol) [facility] Utilities Answer Date Recorded In the past 12 months has [employer], gas, oil, or water company threatened to [...] declined 03/18/2024 How often do you attend zoroastrianism or presybeterian serv ices? Patient declined 03/18/2024 Do you belong to any clubs o r organizations such as zoroastrianism groups, unions, fraternal or athletic groups, or [...] Total Score - Questions 1-9 0 10 [facility] Occupat ional Health - Occupational [...] place to sleep or slept in a correction (including now)? No 01/16/2024 Housing Stability Vital [...] any time in the past 12 m [facility], were you homeless or living in a correction (including now)? Patient declined 03/18/2024 Education Answer [...] encounter Miscellaneous Notes * Telephone Encounter - Nichole Rivas RN - 08/08/2024 1:14 PM CST SITUATION: urinary problems BACKGROUND: Caller contacting PCP office. See nurse triage 07/21/24 Per chart review, last office visit 06/25/24 ASSESSMENT: Symptom Description / Location: Seeing a urology Patient thinks that her bladder has dropped My whole private are is swollen and rash Frequency Pain near the end of urination Patient was on an antibiotic but would only take one pill in a day rather than the two pills in a day Patient went to an urgent care around 07/21/24 Patient states that she wears a pad all the time and had blood on it this morning, thinks it was from rubbing on the side of her thigh, states it was very faint Pain: 810 Fever: Denies fever. Treatment / Response: Vaseline with some relief. RECOMMENDATION: Caller agreeable to disposition: see in office today. Care advice provided per triage guideline. Caller verbalized understanding. Due to office unavailability within disposition, advised for patient to be seen at prompt care or urgent care. Caller agreeable to prompt care/urgent care. Discussed utilizing [employer] to: find [facility] or [facility] and schedule appointment with [facility] - See care advice and disposition for Guideline. First positive answer recorded, all responses to prior questions were negative. If symptoms increase, change or if new symptoms develop, call your health care provider or call back. Recommendations were based on caller information and is not a diagnosis. Verified and reviewed all triage information with caller. Reason for Disposition Itching or rash of female genital area (e.g., labia, vagina, vulva) SEVERE pain (e.g., excruciating) Protocols used: Vaginal Izwljuki-H-PA, Vulvar Ganaqgkg-J-KC AGE LINE RELIEF OPERATOR * Telephone Encounter - Aurora Dutta - 08/08/2024 1:13 PM CST Symptoms: Urine Symptoms, Urination Pain Outcome: Transfer to carpenters helper queue Reason: This is the only possible outcome for these symptoms The caller accepted this outcome. AGE LINE RELIEF OPERATOR documented in this encounter Plan of Treatment Upcoming Encounters Date Type Department Care Team (Late st Contact Info) Description 10/29/2024 9:30 AM PACKAGE LINE RELIEF OPERATOR Office Visit [facility] [address] [place] [address] Bhargavi Morel PAC [address] [place] [address] documented as of this encounter Visit Diagnoses Not on filedocumented in this encounter Additional Health Concerns Assessment Noted Time PHQ-9 Depression Total Score: 0 06/25/20 9:24 AM CDT documented as of this encounter Care Teams Etymology Professor Relationship Specialty Start Date End Date Bhargavi Morel PAC [address] [place] [address] PCP - General Physician Assignment Editor 07/22/23 Flaquito Hurd MD [address] [place] [address] Consulting Physician Pulmonary Disease 11/09/22 Wes Petty MD [address] [address] Consulting Physician Urology 01/18/24 documented as of this encounter
--- OUTSIDE RECORDS SUMMARY | 2024-08-30 18:47 | XMS_ITS | Encounter Summary ---
Author Organization [facility] Address [address] [place] [address] Phone Care Team Providers Care Warehouse Pricing And Inventory Clerk Name Role Phone Bhargavi Morel Primary Care Provider + Flaquito Hurd MD Unavailable Wes Petty MD Unavailable Reason for Visit * Reason Onset Date Comments Results 03/25/2024 Encounter Details Date Type Department Care Team (Late st Contact Info) Description 03/25/[address] [facility] - Family [facility] [address]2 [place] [address] Bhargavi Morel PAC [address] [place] [address] Results Social History Tobacco Use Types Packs/Day Years Used Date Smoking Tobacco: Former Cigarettes 2 35 Smokeless Tobacco: Never Alcohol Use Standard Drinks/Week Comments Not Currently 0 (1 standard drink = 0.6 oz pur e alcohol) [facility] Utilities Answer Date Recorded In the past [...] declined 03/18/2024 How often do you attend jain or mu-ism serv ices? Patient declined 03/18/2024 Do you belong to any clubs o r organizations such as jain groups, unions, fraternal or athletic groups, or [...] Total Score - Questions 1-9 0 09/28 [facility] - Occupational Stress Questionnaire Answer [...] place to sleep or slept in a retirement (including now)? No 01/16/2024 Housing Stability Vital [...] any time in the past 12 m [facility], were you homeless or living in a retirement (including now)? Patient declined 03/18/2024 Education Answer [...] encounter Miscellaneous Notes * Telephone Encounter - Emeli Walsh RN - 03/25/2024 11:09 AM CDT Spoke with patient to inform. Patient verbalized understanding. Patient states she plans on having labs and x-ray done tomorrow (03/26/24). All questions answered. * Telephone Encounter - Emeli Walsh RN - 03/25/2024 11:09 AM CDT ----- Message from Angi Garsia sent at 03/25/2024 7:57 AM CDT ----- No DVT. Needs to get labs I ordered drawn as well as CXR and knee XR. documented in this encounter Plan of Treatment Upcoming Encounters Date Type Department Care Team (Late st Contact Info) Description 10/29/2024 9:30 AM AUTOGLAZIER Office Visit [facility] [address]2 [place] [address] Bhargavi Morel PAC [address] [place] [address] documented as of this encounter Visit Diagnoses Not on filedocumented in this encounter Additional Health Concerns Assessment Noted Time PHQ-9 Depression Total Score: 0 10/17/19 24 12:52 PM AUTOGLAZIER documented as of this encounter Care Teams Warehouse Pricing And Inventory Clerk Relationship Specialty Start Date End Date Bhargavi Morel PAC [address] [place] [address] PCP - General Physician Environmental Solutions Engineer 07/22/23 Flaquito Hurd MD [address] [place] [address] Consulting Physician Pulmonary Disease 11/09/22 Wes Petty MD #[address] [address] Consulting Physician Urology 01/18/24 documented as of this encounter
--- OUTSIDE RECORDS SUMMARY | 2024-08-30 18:47 | XMS_ITS | Encounter Summary ---
Author Organization [facility] Address [address] [place] [address] Phone Care Team Providers Care Central Processing Technician Name Role Phone Bhargavi Morel ARAM Primary Care Provider + Flaquito Hurd MD Unavailable Wes Petty MD Unavailable Encounter Details Date Type Department Care Team (Late st Contact Info) Description 06/25/2024 10:10 AM CDT Lab [facility] #[address] [facility] [address] [place] [phone] Cliff Wen Lab/Ancillary Type 2 diabetes mellitus without complication, without long-term current use of insulin (HCC); Hypothyroidism, unspecified type Discharge Disposition: Discharged to home or Selfcare Social History Tobacco Use Types Packs/Day Years Used Date Smoking Tobacco: Former Cigarettes 2 35 Smokeless Tobacco: Never Alcohol Use Standard Drinks/Week Comments Not Currently 0 (1 standard drink = 0.6 oz pur e alcohol) [facility] Utilities Answer Date Recorded In the past 12 months has [employer] electric, gas, oil, or water company threatened [...] declined 03/18/2024 How often do you attend advent or mormon serv ices? Patient declined 03/18/2024 Do you belong to any clubs o r organizations such as advent groups, unions, fraternal or athletic groups, or [...] Recorded Total Score - Questions 1-9 0 10/3 [facility] - Occupational [...] place to sleep or slept in a mcc (including now)? No 01/16/2024 Housing Stability Vital [...] any time in the past 12 m [facility], were you homeless or living in a mcc (including now)? Patient declined 03/18/2024 Education Answer [...] George MA documented as of this encounter Progress Notes * Michelle Dutton - 06/25/2024 10:10 AM CDT Tressa presents for lab draw per order of bhargavi morel dated [id number]. Specimen collected from left antecubital without incident. [facility] documented in this encounter Plan of Treatment Upcoming Encounters Date Type Department Care Team (Late st Contact Info) Description 10/29/2024 9:30 AM RESTAURANT GENERAL MANAGER Office Visit [facility] [address]2 [place] [address] Bhargavi Morel, PAC [address] [place] [address] documented as of this encounter Procedures Procedure Name Priority Date/Time Associated Diagnosis Comments HEMOGLOBIN A1C W/ ESTIMATED GLUCOSE Routine 06/25/2024 10:06 AM CDT Type 2 diabetes mellitus without complication, without long-term current use of insulin (HCC) CBC WITH AUTO DIFFERENTIAL Routine 06/25/2024 10:06 [...] without long-term current use of insulin (HCC) documented in this encounter Results * (ABNORMAL) CBC WITH AUTO DIFFERENTIAL (06/25/2024 10:06 AM CDT) WBC 7.89 4.00 - 12.00 10(3)/mcL 06/25/2024 12:16 PM CDT [facility] RBC 4.83 3.80 - 5.30 10(6)/mcL 06/25/2024 12:16 PM CDT [facility] HEMOGLOBIN (HGB) 15.2 12.0 - 15.8 g/dL 06/25/2024 12:16 PM CDT [facility] HEMATOCRIT (HCT) 47.7(H) 36.0 - 47.0 % 06/25/2024 12:16 PM CDT [facility] MCV 98.8(H) 82.0 - 96.0 fL 06/25/2024 12:16 PM CDT [facility] MCH 31.5 26.0 - 34.0 pg 06/25/2024 12:16 PM CDT [facility] MCHC 31.9 31.0 - 36.0 g/dL 06/25/2024 12:16 PM CDT [facility] PLATELET COUNT 253 140 - 440 10(3)/mcL 06/25/2024 12:16 PM CDT [facility] RDW 15.9(H) 11.8 - 15.5 % 06/25/2024 12:16 PM CDT [facility] MPV 9.6(L) 9.7 - 12.4 fL 06/25/2024 12:16 PM CDT [facility] NEUTROPHILS 68.0 47.0 - 73.0 % 06/25/2024 12:16 PM CDT [facility] LYMPHOCYTES 19.0 18.0 - 42.0 % 06/25/2024 12:16 PM CDT [facility] MONOCYTES 9.8 4.0 - 12.0 % 06/25/2024 12:16 PM CDT [facility] EOSINOPHILS 2.4 0.0 - 5.0 % 06/25/2024 12:16 PM CDT [facility] BASOPHILS 0.8 0.0 - 1.0 % 06/25/2024 12:16 PM CDT [facility] ABSOLUTE NEUTROPHILS 5.37 1.60 - 7.70 10(3)/mcL 06/25/2024 12:16 PM CDT [facility] ABSOLUTE LYMPHOCYTES 1.50 1.30 - 3.20 10(3)/mcL 06/25/2024 12:16 PM CDT [facility] ABSOLUTE MONOCYTES 0.77 0.20 - 1.00 10(3)/mcL 06/25/2024 12:16 PM CDT [facility] ABSOLUTE EOSINOPHIL 0.19 0.00 - 0.40 10(3)/mcL 06/25/2024 12:16 PM CDT [facility] ABSOLUTE BASOPHILS 0.06 0.00 - 0.10 10(3)/mcL 06/25/2024 12:16 PM CDT [facility] NRBC PER 100 WBC 0 06/25/20 24 12:16 PM CDT [facility] Blood Venipuncture / Unknown 06/25/2024 10:06 AM CDT 06/25/2024 10:06 AM CDT us Bhargavi Morel PAC HEMATOLOGY ORDERABLES Fi nal Result Performing Organization Address City/[facility]/ZIP Co de Phone Number [facility] [address] [place] [address] * THYROID STIMULATING HORMONE (TSH) (06/25/2024 10:06 AM CDT) TSH 2.955 0.300 - 5.000 mIU/L 06/25/2024 12:57 PM CDT [facility] Blood Venipuncture / Unknown 06/25/2024 10:06 AM CDT 06/25/2024 10:06 AM CDT us Bhargavi Morel PAC CHEMISTRY ORDERABLES Fin al Result [facility] [address] [place] [address] * MAGNESIUM (MG) (06/25/2024 10:06 AM CDT) [facility] MAGNESIUM 1.9 1.6 - 2.6 mg/dL 06/25/2024 12:45 PM CDT [facility] Blood Venipuncture / Unknown 06/25/2024 10:06 AM CDT 06/25/2024 10:06 AM CDT us Bhargavi Morel PAC CHEMISTRY ORDERABLES Fin al Result [facility] [address] [place] [address] * (ABNORMAL) HEMOGLOBIN A1C W/ ESTIMATED GLUCOSE (06/25/2024 10:06 AM CDT) [facility] HGB-A1C 7.9(H) 4.0 - 6.0 % 06/25/2024 12:29 PM CDT [facility] Est Average Glucose 180.0 mg/dL 06/25/2024 12:29 PM CDT [facility] Blood Venipuncture / Unknown 06/25/2024 10:06 AM CDT 06/25/2024 10:06 AM CDT Narrative [facility] - 06/25/2024 12:29 PM CDT HEMOGLOBIN A1C: DIABETIC PATIENTS: WELL-CONTROLLED: ?? 6.2 - 7.0 INTERMEDIATE WELL-CONTROLLED: ??7.0 - 9.0 POORLY-CONTROLLED: ??>9.0 us Bhargavi Morel PAC CHEMISTRY ORDERABLES Fin al Result [facility] [address] [place] [address] * (ABNORMAL) CMP (COMPREHENSIVE METABOLIC PANEL) (06/25/2024 10:06 AM CDT) SODIUM 138 136 - 145 mmol/L 06/25/2024 12:45 PM CDT [facility] POTASSIUM 4.4 3.5 - 5.1 mmol/L 06/25/2024 12:45 PM CDT [facility] CHLORIDE 102 98 - 107 mmol/L 06/25/2024 12:45 PM CDT [facility] CO2, VENOUS 29 22 - 30 mmol/L 06/25/2024 12:45 PM CDT [facility] ANION GAP 11.4 <18.0 mmol/L 06/25/2024 12:45 PM CDT [facility] GLUCOSE 180(H) 70 - 99 mg/dL 06/25/2024 12:45 PM CDT [facility] BUN 17 10 - 20 mg/dL 06/25/2024 12:45 PM CDT [facility] CREATININE, BLOOD 0.78 0.60 - 1.00 mg/dL 06/25/2024 12:45 PM CDT [facility] BUN/CREATININE RATIO 22(H) 12 - 20 ratio 06/25/2024 12:45 PM CDT [facility] TOTAL PROTEIN 7.7 6.3 - 8.2 g/dL 06/25/2024 12:45 PM CDT [facility] ALBUMIN 3.7 3.5 - 5.0 g/dL 06/25/2024 12:45 PM CDT [facility] A/G RATIO 0.9(L) 1.0 - 2.2 06/25/2024 12:45 PM CDT [facility] CALCIUM 9.9 8.7 - 10.5 mg/dL 06/25/2024 12:45 PM CDT [facility] T BILI 0.5 0.2 - 1.2 mg/dL 06/25/2024 12:45 PM CDT [facility] SGOT (AST) 25 5 - 34 U/L 06/25/2024 12:45 PM CDT [facility] SGPT (ALT) 20 0 - 55 U/L 06/25/2024 12:45 PM CDT [facility] ALKALINE PHOSPHATASE 104 40 - 150 U/L 06/25/2024 12:45 PM CDT [facility] IS THE PATIENT REQUIRED TO BE FASTING? No 06/25/2024 12:45 PM CDT [facility] GFR, ESTIMATED >60 >=60 06/25/2024 12:45 PM CDT [facility] Comment: Creatinine Clearance is the preferred criteria for selecting drug dose adjustments in renally impaired patients. ??The GFR is provided as additional pertinent clinical information. GFR is reported in mL/min/1.73 sq m. Calculation based on the Chronic Kidney Disease Epidemiology Collaboration (CKD- EPI) equation refit without adjustment for race. GFR, EST. >60 >=60 024 12:45 PM CDT [facility] GFR, EST. NONAFRICAN >60 >=60 06/25/2024 12:45 PM CDT [facility] Blood Venipuncture / Unknown 06/25/2024 10:06 AM CDT 06/25/2024 10:06 AM CDT us Bhargavi Morel PAC CHEMISTRY ORDERABLES Fin al Result [facility] [address] [place] [address] documented in this encounter Visit Diagnoses Diagnosis Type 2 diabetes mellitus without complication, without long-term current use of insulin (HCC) Hypothyroidism, unspecified type documented in this encounter Additional Health Concerns Assessment Noted Time PHQ-9 Depression Total Score: 0 06/25/20 24 9:24 AM CDT documented as of this encounter Care Teams Central Processing Technician Relationship Specialty Start Date End Date Bhargavi Morel PAC [address] [place] [address] PCP - General Physician Pad Machine Offbearer 07/22/23 Flaquito Hurd MD [address] [place] [phone] Consulting Physician Pulmonary Disease 11/09/22 Wes Petty MD [address] [phone] Consulting Physician Urology 01/18/24 documented as of this encounter
--- OUTSIDE RECORDS SUMMARY | 2024-08-30 18:47 | XMS_ITS | Encounter Summary ---
Author Organization [facility] Address [address] [place] [address] Phone Care Team Providers Care Information Scientist Name Role Phone Bhargavi Morel ARAM Primary Care Provider + Flaquito Hurd MD Unavailable Wes Petty MD Unavailable Encounter Details Date Type Department Care Team (Late st Contact Info) Description 08/15/2024 Telephone [facility] #2 [place] [address] Ernesto Patel MD [address] [address] Social History Tobacco Use Types Packs/Day Years Used Date Smoking Tobacco: Former Cigarettes 2 35 Smokeless Tobacco: Never Alcohol Use Standard Drinks/Week Comments Not Currently 0 (1 standard drink = 0.6 oz pur e alcohol) [facility] Utilities Answer Date Recorded In the past 12 months has [employer] electric, gas, oil, or water company threatened [...] declined 03/18/2024 How often do you attend voodoo or samaritan serv ices? Patient declined 03/18/2024 Do you belong to any clubs o r organizations such as voodoo groups, unions, fraternal or athletic groups, or [...] Total Score - Questions 1-9 0 10/3 [facility] of Occupat ional Health - Occupational [...] place to sleep or slept in a usp (including now)? No 01/16/2024 Housing Stability Vital [...] were you homeless or living in a usp (including now)? Patient declined 03/18/2024 Education Answer [...] encounter Miscellaneous Notes * Telephone Encounter - Ernesto Patel MD - 08/15/2024 3:47 PM CST Patient was positive urine culture, Klebsiella, having symptoms. We will place a prescription for Bactrim. She was counseled she needs to monitor INR closely while on antibiotic. SIT CLERK documented in this encounter Plan of Treatment Upcoming Encounters Date Type Department Care Team (Late st Contact Info) Description 10/29/2024 9:30 AM DEPOSIT CLERK Office Visit [facility] - [facility] #2 [place] [address] Bhargavi Morel PAC [address] [place] [address] documented as of this encounter Visit Diagnoses Not on filedocumented in this encounter Additional Health Concerns Assessment Noted Time PHQ-9 Depression Total Score: 0 06/25/20 9:24 AM CDT documented as of this encounter Care Teams Information Scientist Relationship Specialty Start Date End Date Bhargavi Morel PAC [address] [place] [address] PCP - General Physician Detective Chief 07/22/23 Flaquito Hurd MD [address] [place] [address] Consulting Physician Pulmonary Disease 11/09/22 Wes Petty MD #[address] [address] Consulting Physician Urology 01/18/24 documented as of this encounter
--- OUTSIDE RECORDS SUMMARY | 2024-08-30 18:47 | XMS_ITS | Encounter Summary ---
Author Organization [facility] Address [address] [place] [address] Phone Care Team Providers Care Nurse Behavioral Health Care Name Role Phone Bhargavi Morel Primary Care Provider + Flaquito Hurd MD Unavailable Wes Petty MD Unavailable Reason for Referral * Radiology Services (Routine) - Closed Specialty Diagnoses / Procedures Referred By Contac t Referred To Contact Radiology Diagnoses Low oxygen saturation Procedures XR CHEST 2 VIEWS Cole Garsia APRN, GAIL [address] [address] Phone: tel: fax: Referral ID Status Reason Start Date Expiration Date Visits Re quested Visits Authorized [id number] Closed 03/18/2024 1 1 Reason for Visit * Radiology Services (Routine) - Closed Specialty Diagnoses / Procedures Referred By Contac t Referred To Contact Radiology Diagnoses Low oxygen saturation Procedures XR CHEST 2 VIEWS Cole Garsia APRN, GA[facility] #[address] [address] Phone: tel: fax: Referral ID Status Reason Start Date Expiration Date Visits Re quested Visits Authorized [id number] Closed 03/18/2024 1 1 Encounter Details Date Type Department Care Team (Latest Contact Info) Description 03/26/2024 8:07 AM CDT - 03/26/2024 11:59 PM CDT Hospital Encounter [facility] Diagnostic Radiology [address] [place] [address] Cole Garsia APRN, [facility] [address] [place] [address] Discharge Disposition: Discharged to home or Selfcare Social History Tobacco Use Types Packs/Day Years Used Date Smoking Tobacco: Former Cigarettes 2 35 Smokeless Tobacco: Never Alcohol Use Standard Drinks/Week Comments Not Currently 0 (1 standard drink = 0.6 oz pur e alcohol) [facility] Utilities Answer Date Recorded In the past [...] declined 03/18/2024 How often do you attend sabianist or congregational serv ices? Patient declined 03/18/2024 Do you belong to any clubs o r organizations such as sabianist groups, unions, fraternal or athletic groups, or [...] Total Score - Questions 1-9 0 09/28 [facility] - Occupational Stress Questionnaire Answer Date Recorded [...] place to sleep or slept in a residential (including now)? No 01/16/2024 Housing Stability Vital [...] in the past 12 m [facility], were you homeless or living in a residential (including now)? Patient declined 03/18/2024 Education Answer [...] long-term current use of insulin ([facility]) glDiagnosis: Diabetes type 2 Blood testing frequency: once a day 1 Each 04/10/2023 docusate sodium 100 MG Capsule Take by mouth daily as needed for Constipation - 1st line. 02/02/2024 empagliflozin (JARDIANCE) 25 MG TabletIndications :Type 2 diabetes mellitus without complication, without long-term current use of insulin ([facility]) Take 1 Tablet by mouth daily. 90 Tablet 3 01/21/2024 furosemide (LASIX) 40 MG Tablet Take 0.5 Tablets by mouth daily. 90 Tablet 1 05/04/2021 Glucose Blood StripIndications: Type 2 diabetes mellitus without complication, without long-term current use of insulin ([facility]) Diagnosis: Diabetes type 2 Blood testing [...] st Contact Info) Description 10/29/2024 9:30 AM LINER ASSEMBLER Office Visit [facility] - [facility] #[address] [place] [address] Bhargavi Morel, PAC [address] [place] [address] documented as of this encounter Procedures Procedure Name Priority Date/Time Associated Diagnosis Comments XR CHEST 2 VIEWS Routine 03/26/2024 8:39 AM CDT Low oxygen saturation documented in this encounter Results * XR CHEST 2 VIEWS (03/26/2024 8:39 AM CDT) Anatomical Region Laterality Modality Chest N/A Digital Radiogra phy 03/26/2024 9:37 PM CDT Impressions 03/26/2024 9:39 PM CDT IMPRESSION: Mild prominence of central vascularity. Blunting left costophrenic angle favors more chronic scarring as this is unchanged dating back to 2014. Narrative 03/26/2024 9:39 PM CDT EXAM DESCRIPTION: XR CHEST 2 VIEWS REASON FOR STUDY: SOB for 1 month. Hx. CABG 2013, HTN, DM, CHF ?? TECHNIQUE: There are 2 ??radiographic view(s) of the chest. COMPARISON: Prior exam 01/16/2024 and 06/09/2021 as well as 09/01/2014. FINDINGS: LUNGS: ??Mild prominence of central vascularity. ??There is blunting of the left costophrenic angle similar to the prior exams. ?? Otherwise, no confluent infiltrate or effusion. HEART/MEDIASTINUM: ??Senescent change of the aorta. ??Otherwise, normal cardiomediastinal silhouette. ??Prior median sternotomy. LINES/TUBES: ??None. BONES: ??Mild spondylosis thoracic spine. THIS IS AN ELECTRONICALLY VERIFIED FINAL REPORT 03/26/2024 9:37 PM - Electronically signed by ??Naga CRAFT: VENANCIO D: ??03/26/2024 9:37 PM T: ??03/26/2024 9:37 PM Report ID: [id number] Reading Location: ??[id number] Procedure Note Naga Joyner MD - 03/26/2024 EXAM DESCRIPTION: XR CHEST 2 VIEWS REASON FOR STUDY: SOB for 1 month. Hx. CABG 2013, HTN, DM, CHF TECHNIQUE: There are 2 radiographic view(s) of the chest. COMPARISON: Prior exam 01/16/2024 and 06/09/2021 as well as 09/01/2014. FINDINGS: LUNGS: Mild prominence of central vascularity. There is blunting of the left costophrenic angle similar to the prior exams. Otherwise, no confluent infiltrate or effusion. HEART/MEDIASTINUM: Senescent change of the aorta. Otherwise, normal cardiomediastinal silhouette. Prior median sternotomy. LINES/TUBES: None. BONES: Mild spondylosis thoracic spine. THIS IS AN ELECTRONICALLY VERIFIED FINAL REPORT 03/26/2024 9:37 PM - Electronically signed by Naga Joyner M.D. MJ: VENANCIO Report ID: [id number] Reading Location: [id number] IMPRESSION: Mild prominence of central vascularity. Blunting left costophrenic angle favors more chronic scarring as this is unchanged dating back to 2014. Cole Garsia APRN, GA[facility] IMG DIAGNOSTIC O RDERABLES Final Result documented in this encounter Visit Diagnoses Diagnosis Low oxygen saturation Abnormal arterial blood gases documented in this encounter Additional Health Concerns Assessment Noted Time PHQ-9 Depression Total Score: 0 10/17/19 24 12:52 PM LINER ASSEMBLER documented as of this encounter Care Teams Nurse Behavioral Health Care Relationship Specialty Start Date End Date Bhargavi Morel PAC [address] [place] [address] PCP - General Physician Student Driving Instructor 07/22/23 Flaquito Hurd MD [address] [place] [phone] Consulting Physician Pulmonary Disease 11/09/22 Wes Petty MD [address] [address] Consulting Physician Urology 01/18/24 documented as of this encounter
--- OUTSIDE RECORDS SUMMARY | 2024-08-30 18:47 | XMS_ITS | Encounter Summary ---
Author Organization [employer] Care Team Providers Care Radio Technician Name Role Phone Bhargavi Morel ARAM Primary Care Provider + Flaquito Hurd MD Unavailable Wes Petty MD Unavailable Encounter Details Date Type Department Care Team (Latest Contact Info) Description 04/07/2024 Travel Social History Tobacco Use Types Packs/Day Years Used Date Smoking Tobacco: Former Cigarettes 2 35 Smokeless Tobacco: Never Alcohol Use Standard Drinks/Week Comments Not Currently 0 (1 standard drink = 0.6 oz pur e alcohol) [facility] Utilities Answer Date Recorded In the past 12 months has [employer] electric, gas, oil, or water company threatened [...] How often do you attend voodoo or druze serv ices? Patient declined 03/18/2024 Do you [...] - Questions 1-9 0 09/28 [facility] - Occupational Stress Questionnaire [...] st Contact Info) Description 10/29/2024 9:30 AM BOX OFFICE CLERK [facility] Visit [facility] - [facility] #2 [place] [address] Bhargavi Morel PAC [address] [place] [address] documented as of this encounter Visit Diagnoses Not on filedocumented in this encounter Additional Health Concerns Assessment Noted Time PHQ-9 Depression Total Score: 0 10/17/19 24 12:52 PM BOX OFFICE CLERK documented as of this encounter Care Teams Radio Technician Relationship Specialty Start Date End Date Bhargavi Morel PAC [address] [place] [address] PCP - General Physician Supervisor Wet Pour 07/22/23 Flaquito Hurd MD [address] [place] [address] Consulting Physician Pulmonary Disease 11/09/22 Wes Petty MD #[address] [address] Consulting Physician Urology 01/18/24 documented as of this encounter
--- OUTSIDE RECORDS SUMMARY | 2024-08-30 18:47 | XMS_ITS | Encounter Summary ---
Author Organization [facility] Address [address] [place] [address] Phone Care Team Providers Care Irrigation Equipment Mechanic Name Role Phone Bhargavi Morel PAC Primary Care Provider + Flaquito Hurd MD Unavailable Wes Petty MD Unavailable Reason for Visit * Reason Onset Date Comments Medication Refill 04/18/2024 Encounter Details Date Type Department Care Team (Late st Contact Info) Description 04/18/2024 Refill [facility] [address] [place] [address] Bhargavi Morel, PAC [address] [place] [address] Medication Refill Social History Tobacco Use Types Packs/Day Years Used Date Smoking Tobacco: Former Cigarettes 2 35 Smokeless Tobacco: Never Alcohol Use Standard Drinks/Week Comments Not Currently 0 (1 standard drink = 0.6 oz pur e alcohol) [facility] Utilities Answer Date Recorded In the [...] declined 03/18/2024 How often do you attend sabianism or adventist serv ices? Patient declined 03/18/2024 Do you belong to any clubs o r organizations such as sabianism groups, unions, fraternal or athletic groups, or [...] Total Score - Questions 1-9 0 09/28 [facility] - Occupational Stress Questionnaire Answer Date [...] place to sleep or slept in a [place] health care facility (including now)? No 01/16/2024 Housing Stability Vital [...] any time in the past 12 m [facility], were you homeless or living in a [place] facility (including now)? Patient declined 03/18/2024 Education Answer [...] Telephone Encounter - Reanna Rios RN - 04/18/2024 9:17 AM CDT PDMP 03/19/24 - 7 days Medication failed the protocol, provider to review and approve the medication order if appropriate. Requested Prescriptions Pending Prescriptions Disp Refills traMADol (ULTRAM) 50 MG Tablet 28 Tablet 0 Sig: Take 1 Tablet by mouth every 6 hours as needed for Moderate or more severe pain. Not Delegated - Opioid Agonists Protocol Failed - 04/18/2024 8:13 AM Failed - This refill cannot be delegated Passed - Visit with relevant provider in past 12 months or upcoming 90 days Recent Visits Date Type Provider Dept 03/18/24 Office Visit Cole Garsia APRN, GAIL [facility] 01/16/24 Office Visit Bhargavi Morel, PAC [facility] 10/17/23 Office Visit Bhargavi Morel, PAC [facility] 07/11/23 Office Visit Bhargavi Morel, PAC [facility] Showing recent visits within past 365 days and meeting all other requirements Future Appointments Date Type Provider Dept 04/23/24 Appointment Bhargavi Morel, PAC [facility] 04/30/24 Appointment Cole Garsia APRN, STOREPERSON [facility] Showing future appointments within next 90 days and meeting all other requirements * Telephone Encounter - Kathleen Godoy RN - 04/18/2024 8:01 AM CDT Situation: Medication refill Background: See previous notes in encounter Assessment: Gertrudis calling to verify her preferred pharmacy for refill request [facility] [place], advised Gertrudis note states [facility] [place]. Recommendation: Routing to [facility] for previously requested refill. Thank you. * Telephone Encounter - Esmer Stewart RN - 04/18/2024 7:50 AM CDT SITUATION: Medication refill BACKGROUND: Patient calling stating she used to have her prescriptions filled at [facility] and switched to [facility] [place]. Patient is needing her Tramadol script sent to [facility] MEDICATION: Tramadol 50 mg PHARMACY: [facility] documented in this encounter Plan of Treatment Upcoming Encounters Date Type Department Care Team (Late st Contact Info) Description 10/29/2024 9:30 AM SOFTWARE SYSTEMS ARCHITECT [facility] - [place] [address] [place] [address] Bhargavi Morel PAC [address] [place] [address] documented as of this encounter Visit Diagnoses Diagnosis Pain and swelling of right knee documented in this encounter Additional Health Concerns Assessment Noted Time PHQ-9 Depression Total Score: 0 10/17/19 24 12:52 PM SOFTWARE SYSTEMS ARCHITECT documented as of this encounter Care Teams Irrigation Equipment Mechanic Relationship Specialty Start Date End Date Bhargavi Morel PAC [address] [place] [address] PCP - General Physician Manager Office Services 07/22/23 Flaquito Hurd MD [address] [place] [address] Consulting Physician Pulmonary Disease 11/09/22 Wes Petty MD [address] [address] Consulting Physician Urology 01/18/24 documented as of this encounter
--- OUTSIDE RECORDS SUMMARY | 2024-08-30 18:47 | XMS_ITS | Encounter Summary ---
Author Organization [facility] Address [address] [place] [address] Phone Care Team Providers Care Contact Center Rep Name Role Phone Briannawally Vania PAC Primary Care Provider + Flaquito Hurd MD Unavailable Wes Petty MD Unavailable Reason for Visit * Reason Onset Date Comments Results 03/31/2024 Encounter Details Date Type Department Care Team (Late st Contact Info) Description 03/31/2024 Telephone [facility] - [place] [address] [place] [address] Cole Garsia, EBONY, ASSEMBLER INSULATOR [address] [address] Results Social History Tobacco Use Types Packs/Day Years Used Date Smoking Tobacco: Former Cigarettes 2 35 Smokeless Tobacco: Never Alcohol Use Standard Drinks/Week Comments Not Currently 0 (1 standard drink = 0.6 oz pur e alcohol) [facility] Utilities Answer Date Recorded In the past 12 months has e [employer], gas, oil, or water company threatened to [...] How often do you attend druze or druze serv ices? Patient declined 03/18/2024 [...] Total Score - Questions 1-9 0 09/28 [facility] - Occupational Stress Questionnaire Answer [...] in the past 12 m [facility], were you homeless or living in [...] encounter Miscellaneous Notes * Telephone Encounter - Xochilt Easley RN - 04/02/2024 3:49 PM CDT Scheduled pt for knee injection. * Telephone Encounter - Cole Garsia APRN, CNP - 04/02/2024 11:04 AM CDT It could be yes * Telephone Encounter - Louis Saenz RN - 04/02/2024 10:37 AM CDT SITUATION: Results BACKGROUND: Patient is calling back for chest x-ray results. ASSESSMENT: See notes below. RECOMMENDATION: Patient verbalized understanding. She is wondering of a knee injection would be an option for her. Please advise. Thank you. * Telephone Encounter - Cole Garsia APRN, CNP - 04/01/2024 2:47 PM CDT Normal other than vascular congestion (fluid retention). * Telephone Encounter - Lashay Young RN - 04/01/2024 2:38 PM CDT Please advise on Chest xray results from 03/25/24 * Telephone Encounter - Cloe Garsia APRN, CNP - 03/31/2024 12:54 PM CDT I don't want to order anything stronger than that. She should be icing and taking tylenol as well. She can also put Voltaren gel on there, but no oral NSAIDs. * Telephone Encounter - Lashay Young RN - 03/31/2024 11:08 AM CDT Please advise patient asking for results of CXR from 03/26/24 and also if Provider was going to sendin stronger pain med for her knee as she is currently taking Tramadol which is not helping. * Telephone Encounter - Lashay Young RN - 03/31/2024 11:07 AM CDT Called and spoke with patient regarding results of rt Knee xray and lab results. Knee OA with effusion. Labs OK. Looks like maybe a bit of fluid retention as well. F/U with PCP regarding next steps. Pt verbalizes understanding. * Telephone Encounter - Lashay Young, RN - 03/31/2024 11:02 AM CDT ----- Message from Angi Garsia sent at 03/30/2024 12:17 PM CDT ----- Knee OA with effusion. Labs OK. Looks like maybe a bit of fluid retention as well. F/U with PCP regarding next steps. documented in this encounter Plan of Treatment Upcoming Encounters Date Type Department Care Team (Late st Contact Info) Description 10/29/2024 9:30 AM DIRECTOR OF REVENUE CYCLE MANAGEMENT Office Visit [facility] - Family [facility] [address] [place] [address] Bhargavi Morel PAC [address] [place] [address] documented as of this encounter Visit Diagnoses Not on filedocumented in this encounter Additional Health Concerns Assessment Noted Time PHQ-9 Depression Total Score: 0 10/17/19 24 12:52 PM DIRECTOR OF REVENUE CYCLE MANAGEMENT documented as of this encounter Care Teams Contact Center Rep Relationship Specialty Start Date End Date Bhargavi Morel PAC [address] [place] [address] PCP - General Physician Forepart Reducer 07/22/23 Flaquito Hurd MD [address] [place] [address] Consulting Physician Pulmonary Disease 11/09/22 Wes Petty MD [address] [address] Consulting Physician Urology 01/18/24 documented as of this encounter
--- OUTSIDE RECORDS SUMMARY | 2024-08-30 18:47 | XMS_ITS | Encounter Summary ---
Author Organization [facility] Address [address] [place] [address] Phone Care Team Providers Care Auto Striper Name Role Phone Bhargavi Morel ARAM Primary Care Provider + Flaquito Hurd MD Unavailable Wes Petty MD Unavailable Encounter Details Date Type Department Care Team (Late st Contact Info) Description 08/14/2024 Telephone REPLACED BY [facility] [address] [place] [address] Wes Petty MD [address] [address] Social History Tobacco Use Types Packs/Day Years Used Date Smoking Tobacco: Former Cigarettes 2 35 Smokeless Tobacco: Never Alcohol Use Standard Drinks/Week Comments Not Currently 0 (1 standard drink = 0.6 oz pur e alcohol) [facility] Utilities Answer Date Recorded In the past 12 months has [employer], gas, oil, or water company threatened [...] declined 03/18/2024 How often do you attend quaker or yazdanism serv ices? Patient declined 03/18/2024 Do you belong to any clubs o r organizations such as quaker groups, unions, fraternal or athletic groups, or [...] Total Score - Questions 1-9 0 10/3 [facility] - Occupational [...] place to sleep or slept in a detention (including now)? No 01/16/2024 Housing Stability Vital [...] were you homeless or living in a detention (including now)? Patient declined 03/18/2024 Education Answer [...] encounter Miscellaneous Notes * Telephone Encounter - Jolene Patricio - 08/14/2024 9:54 AM CST clotrimazole (LOTRIMIN) 1 % Cream - called into [facility]. REL CLEANER documented in this encounter Plan of Treatment Upcoming Encounters Date Type Department Care Team (Late st Contact Info) Description 10/29/2024 9:30 AM MANDREL CLEANER Office Visit [facility] [address] [place] [address] Bhargavi Morel, PAC [address] [place] [address] documented as of this encounter Visit Diagnoses Not on filedocumented in this encounter Additional Health Concerns Assessment Noted Time PHQ-9 Depression Total Score: 0 06/25/20 9:24 AM CDT documented as of this encounter Care Teams Auto Striper Relationship Specialty Start Date End Date Bhargavi Morel PAC [address] [facility] [place] [address] PCP - General Physician Metallurgist Helper 07/22/23 Flaquito Hurd MD [address]2 [facility] [place] [address] Consulting Physician Pulmonary Disease 11/09/22 Wes Petty MD [address]2 [facility] [address] [address] Consulting Physician Urology 01/18/24 documented as of this encounter
--- OUTSIDE RECORDS SUMMARY | 2024-08-30 18:48 | XMS_ITS | Encounter Summary ---
Author Organization [facility] Address [address] [address] Phone Care Team Providers Care Cook Cashier Food Prep Name Role Phone Bhargavi Morel ARAM Primary Care Provider + Flaquito Hurd MD Unavailable Wes Petty MD Unavailable Reason for Visit * Reason Comments Medication Refill Encounter Details Date Type Department Care Team (Late st Contact Info) Description 11/08/2023 Refill [facility] - Pulmonology & Sleep Medicine [facility] [address] [place] [address] Flaquito Hurd MD [address] [place] [address] Medication Refill Social History Tobacco Use Types Packs/Day Years Used Date Smoking Tobacco: Former Cigarettes 2 35 Smokeless Tobacco: Never Alcohol Use Standard Drinks/Week Comments Not Currently 0 (1 standard drink = 0.6 oz pur e alcohol) PHQ-2 Answer Date Recorded Total Score - Questions 1-9 0 09/28 Education Answer Date Recorded What is the [...] encounter Miscellaneous Notes * Telephone Encounter - Betsy Cruz RN - 11/08/2023 8:21 AM CDT Medication failed the protocol, provider to review and approve the medication order if appropriate. Requested Prescriptions Pending Prescriptions Disp Refills gabapentin (NEURONTIN) 600 MG Tablet [Pharmacy Med Name: GABAPENTIN 600MG TABS] 90 Tablet 1 Sig: TAKE ONE TABLET BY MOUTH EVERY DAY Not Delegated - Anticonvulsants Excluding Benzodiazepines Protocol Failed - 11/08/2023 2:08 AM Failed - This refill cannot be delegated Passed - Visit with relevant provider in past 12 months or upcoming 90 days Recent Visits Date Type Provider Dept 10/17/23 Office Visit Bhargavi Morel PAC [facility] 07/11/23 Office Visit Bhargavi Morel PAC [facility] 04/10/23 Office Visit Bhargavi Morel PAC [facility] 11/09/22 Office Visit Flaquito Hurd MD [facility] Showing recent visits within past 365 days and meeting all other requirements Future Appointments Date Type Provider Dept 01/16/24 Appointment Bhargavi Morel PAC [facility] Showing future appointments within next 90 days and meeting all other requirements documented in this encounter Plan of Treatment Upcoming Encounters Date Type Department Care Team (Late st Contact Info) Description 10/29/2024 9:30 AM TIMBER CUTTER Office Visit [facility] - [place] [address] [place] [address] Bhargavi Morel PAC [address] [place] [address] documented as of this encounter Visit Diagnoses Diagnosis Restless legs syndrome (RLS) documented in this encounter Additional Health Concerns Assessment Noted Time PHQ-9 Depression Total Score: 0 10/17/19 12:52 PM TIMBER CUTTER documented as of this encounter Care Teams Cook Cashier Food Prep Relationship Specialty Start Date End Date Bhargavi Morel PAC [address] [place] [address] PCP - General Physician Business Enterprise Officer 07/22/23 Flaquito Hurd MD [address] [place] [address] Consulting Physician Pulmonary Disease 11/09/22 Wes Petty MD [address] [phone] Consulting Physician Urology 01/18/24 documented as of this encounter
--- OUTSIDE RECORDS SUMMARY | 2024-08-30 18:48 | XMS_ITS | Encounter Summary ---
Author Organization [facility] Address [address] [place] [address] Phone Care Team Providers Care Pulp Piler Name Role Phone Bhargavi Morel Primary Care Provider + Flaquito Hurd MD Unavailable Wes Petty MD Unavailable Reason for Visit * Reason Onset Date Comments Form Completion 03/03/2024 CPAP supplies Encounter Details Date Type Department Care Team (Late st Contact Info) Description 03/03/2024 Telephone [facility] [address] [place] [address] Bhargavi Morel PAC [address] [place] [address] Form Completion (CPAP supplies) Social History Tobacco Use Types Packs/Day Years Used Date Smoking Tobacco: Former Cigarettes 2 35 Smokeless Tobacco: Never Alcohol Use Standard Drinks/Week Comments Not Currently 0 (1 standard drink = 0.6 oz pur e alcohol) [facility] Utilities Answer Date Recorded In the past 12 months has [employer], gas, oil, or water company threatened to shut off services in your home? No 01/16/2024 Social Connection and Isolat ion Panel [NHANES] Answer Date Recorded In a typical week, how many times do you talk on the phone with family, friends, or neighbors? More than three times a week 01/16/2024 How often do you get togethe r with friends or relatives? Twice a week 01/16/2024 How often do you attend chur ch or alevism services? Never 01/16/2024 Do you belong to any clubs o r organizations such as cheondoism groups, unions, fraternal or athletic groups, or school groups? No 01/16/2024 How often do you attend meet ings of the clubs or organizations you belong to? Never 01/16/2024 Are you , , di vorced, , never , or living with a partner? 01/16/2024 AUDIT-C Answer Date Recorded Frequency of Alcohol Consumption Not on file 01/16/2024 Q2: How many drinks containi ng alcohol do you have on a typical day when you are drinking? Patient does not drink Q3: How often do you have si x or more drinks on one occasion? Never 01/16/2024 Overall Financial Resource Strain (CARDIA) Answe r Date Recorded How hard is it for you to pa y for the very basics like food, housing, medical care, and heating? Somewhat hard 01/16/2024 PHQ-2 Answer Date Recorded Total Score - Questions 1-9 0 09/28 [facility] - Occupational Stress Questionnaire Answer Date Recorded Do you feel stress - tense, restless, nervous, or anxious, or unable to sleep at night because your mind is troubled all the time - these days? Only a little 01/16/2024 Exercise Vital Sign Answer Date Recorde d On average, how many days pe r week do you engage in moderate to strenuous exercise (like a brisk walk)? 4 days 01/16/2024 On average, how many minutes do you engage in exercise at this level? 60 min 01/16/2024 Hunger Vital Sign Answer Date Recorded Within the past 12 months, y ou worried that your food would run out before you got the money to buy more. Never true 01/16/20 24 Within the past 12 months, t he food you bought just didn't last and you didn't have money to get more. Never true 01/16/2024 PRAPARE - Transportation Answer Date Re corded In the past 12 months, has l ack of transportation kept you from medical appointments or from getting medications? No 12/26 In the past 12 months, has l ack of transportation kept you from meetings, work, or from getting things needed for daily living? No 01/16/2024 Housing Stability Vital Sign Answer [...] a care home (including now)? No 01/16/2024 Education Answer Date Recorded What is the [...] Telephone Encounter - Xochilt Easley RN - 03/07/2024 3:46 PM CDT Signed and faxed. * Telephone Encounter - Xochilt Easley RN - 03/03/2024 3:47 PM CDT Received Physician's Order form from [facility] for this pt's CPAP supplies. Placed on PCP desk for consideration. documented in this encounter Plan of Treatment Upcoming Encounters Date Type Department Care Team (Late st Contact Info) Description 10/29/2024 9:30 AM GAS LINE SERVICER Office Visit [facility] [address] [place] [address] Bhargavi Morel, PAC [address] [place] [address] documented as of this encounter Visit Diagnoses Not on filedocumented in this encounter Additional Health Concerns Assessment Noted Time PHQ-9 Depression Total Score: 0 10/17/19 24 12:52 PM GAS LINE SERVICER documented as of this encounter Care Teams Pulp Piler Relationship Specialty Start Date End Date Bhargavi Morel PAC [address] [place] [address] PCP - General Physician Forest Aide 07/22/23 Flaquito Hurd MD [address]2 [facility] [place] [phone] Consulting Physician Pulmonary Disease 11/09/22 Wes Petty MD [address] [address] Consulting Physician Urology 01/18/24 documented as of this encounter
--- OUTSIDE RECORDS SUMMARY | 2024-08-30 18:48 | XMS_ITS | Encounter Summary ---
Author Organization [facility] Address [address] [place] [address] Phone Care Team Providers Care Adjunct Psychology Professor Name Role Phone Bhargavi Morel Primary Care Provider + Flaquito Hurd MD Unavailable Wes Petty MD Unavailable Reason for Visit * Reason Comments Medication Refill Encounter Details Date Type Department Care Team (Late st Contact Info) Description 12/09/2023 Refill [facility] #2 [place] [address] Bhargavi Morel PAC [address] [place] [address] Medication Refill Social History Tobacco Use Types [...] Telephone Encounter - Reanna Rios RN - 12/10/2023 9:17 AM CDT New Rx 10/26/23 - continue current dose? Per nursing clinical judgement, provider to review and approve the medication(s) order(s) if appropriate. Requested Prescriptions Pending Prescriptions Disp Refills Ozempic, 0.25 or 0.5 MG/DOSE, 2 MG/3ML Solution Pen-injector [Pharmacy Med Name: Ozempic (0.25 or 0.5 MG/DOSE) 2 MG/3ML Subcutaneous Solution Pen-injector] 3 mL 0 Sig: INJECT 0.25 MG SUBCUTANEOUSLY ONCE WEEKLY GLP-1 Agonists Protocol Passed - 12/09/2023 9:36 AM Passed - Lipid panel result on file in past 12 months LDL Date Value Ref Range Status 05/23/2023 60 <130 mg/dL Final HDL CHOLESTEROL Date Value Ref Range Status 05/23/2023 36 (L) >40 mg/dL Final CHOLESTEROL Date Value Ref Range Status 05/23/2023 117 <200 mg/dL Final TRIGLYCERIDES Date Value Ref Range Status 05/23/2023 103 <150 mg/dL Final VLDL Date Value Ref Range Status 05/23/2023 21 10 - 50 mg/dL Final CHOL/HDL RATIO Date Value Ref Range Status 05/23/2023 3.3 0.0 - 4.4 Final NON-HDL CHOLESTEROL Date Value Ref Range Status 05/23/2023 81 <130 mg/dL Final Passed - Visit with relevant provider in past 6 months or upcoming 90 days Recent Visits Date Type Provider Dept 10/17/23 Office Visit Bhargavi Morel PAC [facility] 07/11/23 Office Visit Bhargavi Morel PAC [facility] Showing recent visits within past 182 days and meeting all other requirements Future Appointments Date Type Provider Dept 01/16/24 Appointment Bhargavi Morel PAC [facility] Showing future appointments within next 90 days and meeting all other requirements Passed - HgA1C result on record in past 6 months HGB-A1C Date Value Ref Range Status 10/17/2023 11.3 (H) 4.0 - 6.0 % Final Passed - GFR on record in past 6 months GFR, EST. NONAFRICAN Date Value Ref Range Status 10/17/2023 >60 >=60 Final documented in this encounter Plan of Treatment Upcoming Encounters Date Type Department Care Team (Late st Contact Info) Description 10/29/2024 9:30 AM WATCHSTANDER Office Visit [facility] [address] [place] [address] Bhargavi Morel PAC [address] [place] [address] documented as of this encounter Visit Diagnoses Diagnosis Type 2 diabetes mellitus without complication, without long-term current use of insulin (HCC) documented in this encounter Additional Health Concerns Assessment Noted Time PHQ-9 Depression Total Score: 0 10/17/19 24 12:52 PM WATCHSTANDER documented as of this encounter Care Teams Adjunct Psychology Professor Relationship Specialty Start Date End Date Bhargavi Morel PAC [address] [place] [address] PCP - General Physician Lpn Private Duty 07/22/23 Flaquito uHrd MD [address] [place] [address] Consulting Physician Pulmonary Disease 11/09/22 Wes Petty MD [address] [phone] Consulting Physician Urology 01/18/24 documented as of this encounter
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
--- OUTSIDE RECORDS SUMMARY | 2024-08-30 18:48 | XMS_ITS | Encounter Summary ---
Author Organization [facility] Address [address] [place] [address] Phone Care Team Providers Care Hand Woven Carpet And Rug Mender Name Role Phone Bhargavi Morel PAC Primary Care Provider + Flaquito Hurd MD Unavailable Encounter Details Date Type Department Care Team (Late st Contact Info) Description 01/09/2024 Telephone [facility] [address] [place] [address] Bhargavi Morel, PAC [address] [place] [address] Social History Tobacco Use Types Packs/Day Years [...] Telephone Encounter - Haven Segovia RN - 01/10/2024 3:41 PM CDT Patient reported that she was nauseous and having diarrhea. [place] like her stomach was always upset and she always had the urge to have a BM. Patient reported that she would feel better the days leading up to her shot but then symptoms would worsen again immediately after giving herself the injection. * Telephone Encounter - Bhargavi Morel PAC - 01/10/2024 8:23 AM CDT What symptoms did patient have with medication * Telephone Encounter - Andrés Diaz - 01/09/2024 9:38 AM CDT C: Tressa called to advise she has stopped taking Ozempic injection because of side effects. Please advise patient what to do from here. Please call [phone] (relationship to patient self) backregarding above referenced patient. Patient's Provider is Bhargavi Morel. documented in this encounter Plan of Treatment Upcoming Encounters Date Type Department Care Team (Late st Contact Info) Description 10/29/2024 9:30 AM OFFSHORE WIND TURBINE TECHNICIAN Office Visit [facility] - [facility] [address] [place] [address] Bhargavi Morel PAC [address] [place] [address] documented as of this encounter Visit Diagnoses Not on filedocumented in this encounter Additional Health Concerns Assessment Noted Time PHQ-9 Depression Total Score: 0 10/17/19 24 12:52 PM OFFSHORE WIND TURBINE TECHNICIAN documented as of this encounter Care Teams Hand Woven Carpet And Rug Mender Relationship Specialty Start Date End Date Bhargavi Morel PAC [address] [place] [address] PCP - General Physician Sugar Trucker 07/22/23 Flaquito Hurd MD [address] [place] [address] Consulting Physician Pulmonary Disease 11/09/22 documented as of this encounter
--- OUTSIDE RECORDS SUMMARY | 2024-08-30 18:48 | XMS_ITS | Encounter Summary ---
Author Organization [facility] Address [address] [place] [address] Phone Care Team Providers Care Heel Boom Operator Name Role Phone Bhargavi Morel Primary Care Provider + Flaquito Hurd MD Unavailable Wes Petty MD Unavailable Reason for Referral * Radiology Services (STAT with Interpretation) - Closed Specialty Diagnoses / Procedures Referred By Contac t Referred To Contact Radiology Diagnoses Right leg swelling Procedures US RIGHT DUPLEX LOWER EXTREMITY VEINS Cole Garsia APRN, [employer]UISANCE WILDLIFE CONTROL OPERATOR [address] [address] Phone: tel: fax: Referral ID Status Reason Start Date Expiration Date Visits Re quested Visits Authorized [id number] Closed 03/24/2024 1 1 Reason for Visit * Reason Onset Date Comments Follow-up 03/19/2024 US Encounter Details Date Type Department Care Team (Late st Contact Info) Description 03/19/2024 Telephone [facility] Call Center [address] [place] [address] Bhargavi Morel PAC [address] [place] [address] Follow-up (US) Social History Tobacco Use Types Packs/Day Years Used Date Smoking Tobacco: Former Cigarettes 2 35 Smokeless Tobacco: Never Alcohol Use Standard Drinks/Week Comments Not Currently 0 (1 standard drink = 0.6 oz pur e alcohol) [facility] Utilities Answer Date Recorded In the [...] How often do you attend voodoo or sikh serv ices? Patient declined 03/18/2024 Do you [...] Total Score - Questions 1-9 0 09/28 [facility] of Occupat ional Health - Occupational Stress [...] time in the past 12 m [facility], were you homeless or living in [...] encounter Miscellaneous Notes * Telephone Encounter - Kristin Hirsch RN - 03/25/2024 8:02 AM CDT Patient scheduled to have US today. * Telephone Encounter - Cole Garsia APRN, CNP - 03/24/2024 11:13 AM CDT Revised STAT order. Please get patient in [facility] * Telephone Encounter - Jayde Pena RN - 03/24/2024 11:07 AM CDT S: Patient calling regarding STAT RLE US. B: Patient was seen by Cole Garsia APN on 03/18/24 for right knee swelling and pain. US Right LE venous/reflux mapping ordered as STAT with interpretation. A: Patient states she called to schedule and first available was 04/16/24 at [facility]. Patient states she is still having right knee pain maybe slightly worse, but RLE swelling is aboutthe same. Radha, [facility] OP scheduling called and called the department directly and they stated that reflex mapping cannot be done STAT, so if needing done STAT order would have to be revised if only trying to rule out DVT. If order is changed to STAT Radha requests that office call OP scheduling. R: Please advise. Patient is not active on Scope 5, so requesting a phone call. * Telephone Encounter - Cole Garsia APRN, CNP - 03/21/2024 4:20 PM CDT We can try calling Sunday for it. * Telephone Encounter - Reanna Rios RN - 03/21/2024 4:07 PM CDT I don't know what happened but she should have been worked in the day she was here. If no one from the office called the STAT was probably overlooked. I called scheduling, spoke with Radha, this was first available for routine scheduling. She tried calling the US department, no one answered. She then called Radiology and no one answered. She recommended calling back on Sunday morning. Not sure what to do here. * Telephone Encounter - Cole Garsia APRN, GAIL - 03/21/2024 3:58 PM CDT Yes, that is way too late. It was a stat order so it needed done the next day! * Telephone Encounter - Trinh Peraza - 03/19/2024 9:22 AM CDT RFC: Tressa was seen on 03/18/24 with Cole Garsia and he had ordered an US for her and she could not get it scheduled until 04/16/24 and Tressa is asking if this needs to be sooner, please give Tressa a call back on this please . Please call Tressa (relationship to patient self) back regarding above referenced patient. Patient's Provider is ARAM James . documented in this encounter Plan of Treatment Upcoming Encounters Date Type Department Care Team (Late st Contact Info) Description 10/29/2024 9:30 AM FUEL ISLAND ATTENDANT Office Visit [facility] - Family [facility] [address] [place] [address] Bhargavi Morel PAC [address] [place] [address] documented as of this encounter Results * US RIGHT DUPLEX LOWER EXTREMITY VEINS (03/25/2024 7:36 AM CDT) Anatomical Region Laterality Modality vascular Right Ultrasound 03/25/2024 7:39 AM CDT Impressions 03/25/2024 7:41 AM CDT IMPRESSION: ?? No lower extremity deep venous thrombosis. Narrative 03/25/2024 7:41 AM CDT EXAM DESCRIPTION: ?? US RIGHT DUPLEX LOWER EXTREMITY VEINS REASON FOR STUDY: ?? right leg swelling and pain ?? TECHNIQUE: Duplex scan using the B-mode, spectral Doppler, and color-flow Doppler of the deep venous system of the ??right ??lower extremity was performed. Images stored on PACS. COMPARISON: ?? None FINDINGS: The common femoral, common femoral-saphenous vein confluence, visualized profunda femoral, superficial femoral, and popliteal veins are readily compressible with no intraluminal thrombus on maurer scale images. ??There is normal color and spectral Doppler signal, including augmentation. ??Greater saphenous vein appears patent. Visualized calf veins are patent. THIS IS AN ELECTRONICALLY VERIFIED FINAL REPORT 03/25/2024 7:39 AM - Electronically signed by ??Andrés Reddy M.D., JR: D: ??03/25/2024 7:39 AM T: ??03/25/2024 7:39 AM Report ID: [id number] Reading Location: ??[id number] Procedure Note Andrés Reddy MD - 03/25/2024 EXAM DESCRIPTION: US RIGHT DUPLEX LOWER EXTREMITY VEINS REASON FOR STUDY: right leg swelling and pain TECHNIQUE: Duplex scan using the B-mode, spectral Doppler, and color-flow Doppler of the deep venous system of the right lower extremity was performed. Images stored on PACS. COMPARISON: None FINDINGS: The common femoral, common femoral-saphenous vein confluence, visualized profunda femoral, superficial femoral, and popliteal veins are readily compressible with no intraluminal thrombus on maurer scale images. There is normal color and spectral Doppler signal, including augmentation. Greater saphenous vein appears patent. Visualized calf veins are patent. THIS IS AN ELECTRONICALLY VERIFIED FINAL REPORT 03/25/2024 7:39 AM - Electronically signed by Andrés Reddy M.D. JR: Report ID: [id number] Reading Location: [id number] IMPRESSION: No lower extremity deep venous thrombosis. us Cole Garsia APRN, CNP IMFran US ORDERABLE S Final Result documented in this encounter Visit Diagnoses Diagnosis Right leg swelling- Primary Right leg swelling documented in this encounter Additional Health Concerns Assessment Noted Time PHQ-9 Depression Total Score: 0 10/17/19 24 12:52 PM FUEL ISLAND ATTENDANT documented as of this encounter Care Teams Heel Boom Operator Relationship Specialty Start Date End Date Bhargavi Morel PAC [address] [place] [address] PCP - General Physician Electro Mechanical Technician 07/22/23 Flaquito Hurd MD [address] [place] [address] Consulting Physician Pulmonary Disease 11/09/22 Wes Petty MD [address] [id number] Consulting Physician Urology 01/18/24 documented as of this encounter
--- OUTSIDE RECORDS SUMMARY | 2024-08-30 18:48 | XMS_ITS | Encounter Summary ---
Author Organization [facility] Address [address] [place] [address] Phone Care Team Providers Care Cupola Hoist Operator Name Role Phone Bhargavi Morel Primary Care Provider + Flaquito Hurd MD Unavailable Wes Petty MD Unavailable Reason for Visit * Reason Comments Medication Refill Encounter Details Date Type Department Care Team (Late st Contact Info) Description 11/26/2023 Refill [facility] [address] [place] [address] Bhargavi Morel PAC [address] [place] [address] Medication Refill Social History Tobacco Use Types [...] encounter Miscellaneous Notes * Telephone Encounter - Tiffany Martinez, RN - 11/26/2023 4:28 PM CDT Per PDMP, last filled 10/26/23 #28. Medication failed the protocol, provider to review and approve the medication order if appropriate. Requested Prescriptions Pending Prescriptions Disp Refills traMADol (ULTRAM) 50 MG Tablet [Pharmacy Med Name: TRAMADOL HCL 50MG TABS] 28 Tablet 0 Sig: TAKE ONE TABLET BY MOUTH EVERY 6 HOURS NEEDED FOR MODERATE OR SEVERE PAIN Not Delegated - Opioid Agonists Protocol Failed - 11/26/2023 3:36 PM Failed - This refill cannot be delegated Passed - Visit with relevant provider in past 12 months or upcoming 90 days Recent Visits Date Type Provider Dept 10/17/23 Office Visit Bhargavi Morel PAC [facility] 07/11/23 Office Visit Bhargavi Morel PAC [facility] 04/10/23 Office Visit Bhargavi Morel PAC [facility] [place] Showing recent visits within past 365 days and meeting all other requirements Future Appointments Date Type Provider Dept 01/16/24 Appointment Bhargavi Morel PAC [facility] Showing future appointments within next 90 days and meeting all other requirements documented in this encounter Plan of Treatment Upcoming Encounters Date Type Department Care Team (Late st Contact Info) Description 10/29/2024 9:30 AM CUSTOMER EXPERIENCE PROFESSIONAL Office Visit [facility] - Family Medicine - [place] [address] [place] [address] Bhargavi Morel PAC [address] [place] [address] documented as of this encounter Visit Diagnoses Diagnosis Pain and swelling of right knee documented in this encounter Additional Health Concerns Assessment Noted Time PHQ-9 Depression Total Score: 0 10/17/19 12:52 PM CUSTOMER EXPERIENCE PROFESSIONAL documented as of this encounter Care Teams Cupola Hoist Operator Relationship Specialty Start Date End Date Bhargavi Morel PAC [address] [place] [address] PCP - General Physician Oracle Business Analyst 07/22/23 Flaquito Hurd MD [address] [place] [address] Consulting Physician Pulmonary Disease 11/09/22 Wes Petty MD [address] [address] Consulting Physician Urology 01/18/24 documented as of this encounter
--- OUTSIDE RECORDS SUMMARY | 2024-08-30 18:48 | XMS_ITS | Encounter Summary ---
Author Organization [facility] Address [address] [place] [address] Phone Care Team Providers Care Motion Picture Set Grip Name Role Phone Jovita Bermudez MD Primary Care Provider [phone] Bhargavi Morel Primary Care Provider + Flaquito Hurd MD Unavailable Wes Petty MD Unavailable Reason for Visit * Reason Comments Medication Refill Encounter Details Date Type Department Care Team (Late st Contact Info) Description 06/28/2023 Refill [facility] [address] [place] [address] Bhargavi Morel PAC [address] [place] [address] Medication Refill Social History Tobacco [...] PM CDT Sexual Orientation Not on file COVID-19 Exposure Response Date Recorded In the last 10 days, have yo u been in contact with someone who was confirmed or suspected to have Coronavirus/COVID-19? No / Unsure 06/13/2023 10:14 AM CDT documented as of this encounter Miscellaneous Notes * Telephone Encounter - Reanna Rios RN - 06/28/2023 10:15 AM CDT PRN medication requires review from provider Per nursing clinical judgement, provider to review and approve the medication(s) order(s) if appropriate. Requested Prescriptions Pending Prescriptions Disp Refills Ventolin HFA 108 (90 Base) MCG/ACT Aerosol Solution [Pharmacy Med Name: VENTOLIN HFA AER] 18 g 2 Sig: INHALE 2 PUFFS EVERY 4-6 HOURS NEEDED FOR SHORTNESS OF BREATH OR WHEEZING Short Acting Inhaled Beta-Agonists Protocol Passed - 06/28/2023 2:06 AM Passed - Visit with relevant provider in past 12 months or upcoming 90 days Recent Visits Date Type Provider Dept 04/10/23 Office Visit Bhargavi Morel PAC [facility] 10/18/22 Office Visit Bhargavi Morel PAC [facility] Showing recent visits within past 365 days and meeting all other requirements Future Appointments Date Type Provider Dept 07/11/23 Appointment Bhargavi Morel PAC [facility] Showing future appointments within next 90 days and meeting all other requirements documented in this encounter Plan of Treatment Upcoming Encounters Date Type Department Care Team (Late st Contact Info) Description 10/29/2024 9:30 AM AIDS NURSE [facility] Visit [facility] [place] [address] [place] [address] Bhargavi Morel PAC [address] [place] [address] documented as of this encounter Visit Diagnoses Not on filedocumented in this encounter Additional Health Concerns Assessment Noted Time PHQ-9 Depression Total Score: 0 10/18/19 1:27 PM AIDS NURSE documented as of this encounter Care Teams Motion Picture Set Grip Relationship Specialty Start Date End Date Jovita Bermudez MD [address] [place] [address] PCP - General Family Medicine 11/30/20 07/21/23 Bhargavi Morel PAC [address] [place] [address] PCP - General Physician Truck Engine Technician 07/22/23 Flaquito Hurd MD [address] [place] [phone] Consulting Physician Pulmonary Disease 11/09/22 Wes Petty MD [address] [phone] Consulting Physician Urology 01/18/24 documented as of this encounter
--- OUTSIDE RECORDS SUMMARY | 2024-08-30 18:48 | XMS_ITS | Encounter Summary ---
Author Organization [facility] [employer] Care Team Providers Care Chronic Disease Manager Name Role Phone Jovita Bermudez MD Primary Care Provider [phone] Flaquito Hurd MD Unavailable Encounter Details Date Type Department Care Team (Latest Contact Info) Description 06/13/2023 Travel Social History Tobacco Use Types Packs/Day [...] AM CDT documented as of this encounter Plan of Treatment Upcoming Encounters Date Type Department Care Team (Late st Contact Info) Description 10/29/2024 9:30 AM PNEUMATIC TUBE FITTER Office Visit [facility] Medical [facility] [address] [place] [id number] Bhargavi Morel, PAC [address] [place] [address] documented as of this encounter Visit Diagnoses Not on filedocumented in this encounter Additional Health Concerns Assessment Noted Time PHQ-9 Depression Total Score: 0 10/18/19 23 1:27 PM PNEUMATIC TUBE FITTER documented as of this encounter Care Teams Chronic Disease Manager Relationship Specialty Start Date End Date Jovita Bermudez MD [address] [place] [address] PCP - General Family Medicine 11/30/20 07/21/23 Flaquito Hurd MD [address] [place] [address] Consulting Physician Pulmonary Disease 11/09/22 documented as of this encounter
--- OUTSIDE RECORDS SUMMARY | 2024-08-30 18:48 | XMS_ITS | Encounter Summary ---
Author Organization [facility] Address [address] [place] [address] Phone Care Team Providers Care Business Systems Consultant Name Role Phone Bhargavi Morel Primary Care Provider + Flaquito Hurd MD Unavailable Reason for Visit * Reason Onset Date Comments Medication Management 12/03/2023 Encounter Details Date Type Department Care Team (Late st Contact Info) Description 12/03/2023 Refill [facility] [address] [place] [address] Bhargavi Morel PAC [address] [place] [address] Medication Management Social History Tobacco Use Types Packs/Day Years [...] encounter Miscellaneous Notes * Telephone Encounter - Beth Hawthorne RN - 12/03/2023 4:11 PM CDT S= Medication Management B= Pharmacy calling A= [facility] is out of stock of the following medication: Januvia 100 MG Tablet 90 Tablet 1 08/07/2023 -- Sig: TAKE ONE TABLET BY MOUTH EVERY DAY Sent to pharmacy as: Januvia 100 MG Oral Tablet (SITagliptin) Class: E Prescribe E-Prescribing Status: Receipt confirmed by pharmacy (08/07/2023 10:30 AM DETECTIVE BOWLING ALLEY) R= Pharmacy asking for provider's office to call medication into the [facility] pharmacy in [place]. documented in this encounter Plan of Treatment Upcoming Encounters Date Type Department Care Team (Late st Contact Info) Description 10/29/2024 9:30 AM DETECTIVE BOWLING ALLEY Office Visit [facility] - [facility] [address] [place] [address] Bhargavi Morel PAC [address] [place] [address] documented as of this encounter Visit Diagnoses Not on filedocumented in this encounter Additional Health Concerns Assessment Noted Time PHQ-9 Depression Total Score: 0 10/17/19 24 12:52 PM DETECTIVE [place] documented as of this encounter Care Teams Business Systems Consultant Relationship Specialty Start Date End Date Bhargavi Morel PAC [address] [place] [address] PCP - General Physician Lending Manager 07/22/23 Flaquito Hurd MD [address] [place] [address] Consulting Physician Pulmonary Disease 11/09/22 documented as of this encounter
--- OUTSIDE RECORDS SUMMARY | 2024-08-30 18:48 | XMS_ITS | Encounter Summary ---
Author Organization [facility] Address [address] [place] [address] Phone Care Team Providers Care Plastering Contractor Name Role Phone Bhargavi Morel PAC Primary Care Provider + Flaquito Hurd MD Unavailable Wes Petty MD Unavailable Reason for Visit * Reason Onset Date Comments Knee Pain 03/17/2024 Encounter Details Date Type Department Care Team (Late st Contact Info) Description 03/17/2024 [facility] [address] [place] [address] Bhargavi Morel, PAC [address] [place] [address] Knee Pain Social History Tobacco Use Types Packs/Day Years Used Date Smoking Tobacco: Former Cigarettes 2 35 Smokeless Tobacco: Never Alcohol Use Standard Drinks/Week Comments Not Currently 0 (1 standard drink = 0.6 oz pur e alcohol) [facility] Utilities Answer Date Recorded In the past 12 months has [employer] electric, gas, oil, or water company threatened [...] declined 03/18/2024 How often do you attend jew or buddhism serv ices? Patient declined 03/18/2024 Do you belong to any clubs o r organizations such as jew groups, unions, fraternal or athletic groups, or [...] Total Score - Questions 1-9 0 09/28 [facility] - Occupational Stress Questionnaire Answer Date [...] encounter Miscellaneous Notes * Telephone Encounter - Jazmyne Kumar RN - 03/17/2024 10:35 AM CDT SITUATION: right knee pain BACKGROUND: right knee pain started 4-5 days ago Similar pain 1 year ago, saw specialist and was given cortisone injection. Reports injection eventually helped and knee pain resolved. Concerned about injections increasing blood sugars and would like to discuss with primary care first. no recent knee injury or falls ASSESSMENT: Symptom Description / Location: Pain in right knee only Mild swelling of right knee Knee is painful and stiff, difficult to bend Pain constant when up Denies knee redness/bruising, thigh/calf pain, thigh/calf swelling, chest pain, difficulty breathing Pain (0-10): 8-9 when standing; aches when at rest Temp: denies fever Treatment / Response: topical creams-does not help; tramadol-helps a little; tylenol-helps a little RECOMMENDATION: See in Office today. Patient declines appointment today. Prefers to wait All Patient Appointments Provider Department Dept Phone 03/18/2024 8:15 AM [facility] [phone] See care advice and disposition for Guideline First positive answer recorded, all responses to prior questions were negative. If symptoms increase, change or if new symptoms develop, call your HCP or call back. Recommendations were based on caller information and is not a diagnosis. Verified and reviewed all triage information with caller. Reason for Disposition SEVERE pain (e.g., excruciating, unable to walk) Protocols used: Knee Pain-A-[place] documented in this encounter Plan of Treatment Upcoming Encounters Date Type Department Care Team (Late st Contact Info) Description 10/29/2024 9:30 AM SUPERVISOR GRINDING [place] [facility] [place] [facility] [place] [address] Bhargavi Morel PAC [address] [place] [address] documented as of this encounter Visit Diagnoses Not on filedocumented in this encounter Additional Health Concerns Assessment Noted Time PHQ-9 Depression Total Score: 0 10/17/19 24 12:52 PM SUPERVISOR GRINDING documented as of this encounter Care Teams Plastering Contractor Relationship Specialty Start Date End Date Bhargavi Morel PAC [address] [place] [address] PCP - General Physician Urology Nurse 07/22/23 Flaquito Hurd MD [address] [place] [address] Consulting Physician Pulmonary Disease 11/09/22 Wes Petty MD [address] [address] Consulting Physician Urology 01/18/24 documented as of this encounter
--- OUTSIDE RECORDS SUMMARY | 2024-08-30 18:48 | XMS_ITS | Encounter Summary ---
Author Organization [facility] Address [address] [place] [address] Phone Care Team Providers Care Club Waiter/Waitress Name Role Phone Bhargavi Morel Primary Care Provider + Flaquito Hurd MD Unavailable Wes Petty MD Unavailable Reason for Visit * Reason Onset Date Comments Results 01/23/2024 Encounter Details Date Type Department Care Team (Late st Contact Info) Description 01/23/2024 Telephone [facility] - Family Medicine [facility] [address] [place] [address] Bhargavi Morel PAC [address] [place] [address] Results Social History Tobacco Use Types Packs/Day Years Used Date Smoking Tobacco: Former Cigarettes 2 35 Smokeless Tobacco: Never Alcohol Use Standard Drinks/Week Comments Not Currently 0 (1 standard drink = 0.6 oz pur e alcohol) [facility] Utilities Answer Date Recorded In the [...] often do you attend chur ch or sabianism services? Never 01/16/2024 Do you belong to any clubs o r organizations such as restorationist groups, unions, fraternal or athletic groups, or [...] Total Score - Questions 1-9 0 09/28 [facility] - Occupational Stress [...] in a retirement (including now)? No 01/16/2024 Education Answer Date [...] Telephone Encounter - Xochilt Easley RN - 01/23/2024 9:05 AM CDT Spoke to pt, gave provider's message. Scheduled appt in 3 months. Pt sees accounting/finance tutor outside of [facility], she is aware of the need to follow up with cardiology. * Telephone Encounter - Xochilt Easley RN - 01/23/2024 9:00 AM CDT ----- Message from Bhargavi Morel, PAC sent at 01/21/2024 9:34 PM CDT ----- Thyroid in range, hga1c improved but I know she cannot take ozempic anymore so I sent in jardiance to resume Notify if any problems with medication change Schedule follow up in 3 months Also needs to follow up with her accounting/finance tutor documented in this encounter Plan of Treatment Upcoming Encounters Date Type Department Care Team (Late st Contact Info) Description 10/29/2024 9:30 AM MINERAL SURVEYOR Office Visit [facility] - Family [facility] [address] [place] [address] Bhargavi Morel PAC [address] [place] [address] documented as of this encounter Visit Diagnoses Not on filedocumented in this encounter Additional Health Concerns Assessment Noted Time PHQ-9 Depression Total Score: 0 10/17/19 24 12:52 PM MINERAL SURVEYOR documented as of this encounter Care Teams Club Waiter/Waitress Relationship Specialty Start Date End Date Bhargavi Morel PAC [address] [place] [address] PCP - General Physician Environmental Planner 07/22/23 Flaquito Hurd MD [address] [place] [address] Consulting Physician Pulmonary Disease 11/09/22 Wes Petty MD [address] [address] Consulting Physician Urology 01/18/24 documented as of this encounter
--- OUTSIDE RECORDS SUMMARY | 2024-08-30 18:48 | XMS_ITS | Encounter Summary ---
Author Organization [facility] Address [address] [place] [address] Phone Care Team Providers Care Overlock Elastic Attacher Name Role Phone Jovita Bermudez MD Primary Care Provider [phone] Flaquito Hurd MD Unavailable Reason for Visit * Reason Onset Date Comments Results 06/18/2023 Encounter Details Date Type Department Care Team (Late st Contact Info) Description 06/18/[address] [facility] Medical Group - Family Medicine [facility] [address] [place] [address] Bhargavi Morel PAC [address] [place] [address] Results Social History Tobacco Use Types Packs/Day [...] Telephone Encounter - Xochilt Easley RN - 06/18/2023 9:22 AM CDT Spoke to pt, gave provider's message. * Telephone Encounter - Xochilt Easley RN - 06/18/2023 8:46 AM CDT ----- Message from ARAM James sent at 06/18/2023 8:27 AM CDT ----- Patient urine grew out bacteria, I am send in antibiotic, if symptoms persist after completion notify the office, notify if feeling ill, since she is allergic to cefazolin and resistant to other medications I have to give her cipro which may or may not treat infection, also should have inr checked while on antibiotic documented in this encounter Plan of Treatment Upcoming Encounters Date Type Department Care Team (Late st Contact Info) Description 10/29/2024 9:30 AM ROASTER OPERATOR Office Visit [facility] Medical Group - Family Medicine [facility] [address] [place] [address] Bhargavi Morel PAC [address] [place] [address] documented as of this encounter Visit Diagnoses Not on filedocumented in this encounter Additional Health Concerns Assessment Noted Time PHQ-9 Depression Total Score: 0 10/18/19 23 1:27 PM ROASTER OPERATOR documented as of this encounter Care Teams Overlock Elastic Attacher Relationship Specialty Start Date End Date Jovita Bermudez MD [address] [place] [address] PCP - General Family Medicine 11/30/20 07/21/23 Flaquito Hurd MD [address] [place] [address] Consulting Physician Pulmonary Disease 11/09/22 documented as of this encounter
--- OUTSIDE RECORDS SUMMARY | 2024-08-30 18:48 | XMS_ITS | Encounter Summary ---
Author Organization [facility] Address [address] [place] [address] Phone Care Team Providers Care Echocardiologist Name Role Phone Bhargavi Morel Primary Care Provider + Flaquito Hurd MD Unavailable Reason for Referral * Radiology Services (Routine) - Open Specialty Diagnoses / Procedures Referred By Contjuani t Referred To Contact Radiology Diagnoses Chronic shortness of breath Lymphadenopathy Procedures CT CHEST W/O CONTRAST Bhargavi Morel PAC [address] [place] [address] Phone: tel: fax: Referral ID Status Reason Start Date Expiration Date Visits Re quested Visits Authorized [id number] Open 10/17/2023 1 1 K FAKER * Other (Routine) - Open Specialty Diagnoses / Procedures Referred By Contjuani dhillon Referred To Contact Pulmonology Diagnoses Chronic shortness of breath Procedures COMPLETE PFT W + W/O BRONCHODILATOR Bhargavi Morel PAC [address] [place] [address] Phone: tel: fax: Referral ID Status Reason Start Date Expiration Date Visits Re quested Visits Authorized [id number] Open 10/17/2023 1 1 K FAKER Reason for Visit * Reason Comments Follow-up 2 month Encounter Details Date Type Department Care Team (Late st Contact Info) Description 10/17/2023 1:00 PM SHANK FAKER [facility] [place] [facility] [place] [address] [place] [address] Bhargavi Morel, PAC [address] [place] [address] Type 2 diabetes mellitus without complication, without long-term current use of insulin (HCC) (Primary Dx); Hypothyroidism, unspecified type; Vitamin D deficiency; Frequent UTI; Chronic shortness of breath; Lymphadenopathy Discharge Disposition: Discharged to home or Selfcare [...] Sign Reading Time Taken Comments Blood Pressure 102/58 10/17/2023 12:47 PM SHANK FAKER Pulse 78 10/17/2023 12:47 PM SHANK FAKER Temperature 36.1 ??C (97 ??F) 10/17/2023 12:47 PM SHANK FAKER Respiratory Rate - - Oxygen Saturation 95% 10/17/2023 12:47 PM SHANK FAKER Inhaled Oxygen Concentration - - Weight 98.4 kg (217 lb) 10/17/2023 12:47 PM SHANK FAKER Height 167.6 cm (5' 6 ) 10/17/2023 12:47 PM SHANK FAKER Body Mass Index 35.02 10/17/2023 12:47 PM SHANK FAKER documented in this encounter Functional Status * Question Answer Date of Assessment Author Little interest or pleasure in doing things Not at all 10/17/2023 12:52 PM SHANK FAKER Brittney Green CMA Feeling down, depressed, or hopeless Not at all 10/17/2023 12:52 PM SHANK FAKER Brittney Green CMA * Over the past 2 weeks, how often have you been bothered by any of the following problems? Question Answer Date of Assessment Author Patient Health Questionnaire -2 Score 0 10/17/2023 12:52 PM SHANK FAKER Brittney Green CMA documented as of this encounter Patient Instructions * Patient Instructions* Bhargavi Morel PAC - 10/17/2023 1:00 PM SHANK FAKER Labs today as previously ordered and today order K FAKER documented in this encounter Progress Notes * Brittney Green CMA - 10/17/2023 1:00 PM CST Tressa Myers, 68 y.o., female is here for Follow-up (2 month ) Medication Refills: Patient reports/denies need [...] or Cough. 05/04/22 Yes Bhargavi Morel PAC albuterol 108 (90 Base) MCG/ACT Aerosol Solution take 2 Puffs by inhalation every 4 hours as needed. Patient not taking: Reported on 07/11/2023 Homero Pugh MD Ascorbic Acid 500 MG Chewable Tablet Take 500 mg by mouth. Yes Homero Pugh MD aspirin EC 81 MG Tablet Delayed Response Take 81 mg by mouth. Yes Homero Pugh MD Blood Glucose Monitoring Suppl Device glDiagnosis: Diabetes type 2 Blood testing frequency: once a day 04/10/23 Yes Bhargavi Morel PAC clobetasol (TEMOVATE) 0.05 % Gel APPLY TO NEW LESIONS ON ARMS COVER WITH TAPE THEN WASH OFF IN THE MORNING. REPEAT PROCESS UNTIL LESIONS ARE FLAT THEN USE TWICE A WEEK MA Patient not taking: Reported on 11/09/2022 11/24/20 Homero Pugh MD Cyanocobalamin (VITAMIN B-12 PO) Take by mouth. Yes Homero Pugh MD furosemide (LASIX) 40 MG Tablet Take 0.5 Tablets by mouth daily. 05/04/21 Yes Jovita Bermudez MD gabapentin (NEURONTIN) 600 MG Tablet TAKE ONE TABLET BY MOUTH EVERY DAY 05/14/23 Yes Flaquito Hurd MD glipiZIDE (GLUCOTROL) 5 MG Tablet Take 0.5 Tablets by mouth daily after breakfast. 07/11/23 Yes Bhargavi Morel PAC Glucose Blood Strip Diagnosis: Diabetes type 2 Blood testing frequency: once a day 02/23/21 Yes Jovita Bermudez MD Januvia 100 MG Tablet TAKE ONE TABLET BY MOUTH EVERY DAY 08/07/23 Yes Jovita Bermudez MD levothyroxine (SYNTHROID) 75 MCG Tablet TAKE ONE TABLET BY MOUTH EVERY DAY 08/07/23 Yes Jovita Bermudez MD losartan (COZAAR) 25 MG Tablet 06/13/21 Yes Homero Pugh MD metFORMIN (GLUCOPHAGE) 1000 MG Tablet TAKE ONE TABLET BY MOUTH TWICE A DAY 06/15/23 Yes Jovita Bermudez MD metoprolol Succinate (TOPROL-XL) 100 MG TABLET SR 24 HR Take 2 Tablets by mouth daily. Patient taking differently: Take 150 mg by mouth daily. 05/04/21 Yes Jovita Bermudez MD PARoxetine (PAXIL) 40 MG Tablet TAKE ONE TABLET BY MOUTH EVERY DAY 09/16/23 Yes Bhargavi Morel PAC simvastatin (ZOCOR) 40 MG Tablet 09/23/22 Yes Homero Pugh MD traMADol (ULTRAM) 50 MG Tablet TAKE ONE TABLET BY MOUTH EVERY 6 HOURS NEEDED FOR MODERATE OR SEVERE PAIN 09/20/23 Yes Bhargavi Morel PAC VITAMIN D PO [...] knowledge. Smoking Status: Social History Tobacco Use ??? Smoking status: Former Packs/day: 2.00 Years: 35.00 Additional pack years: 0.00 Total pack years: 70.00 Types: Cigarettes ??? Smokeless tobacco: Never Substance Use Topics ??? Alcohol use: Not Currently ??? Drug use: Yes Types: Marijuana Comment: a few times per week Smoking Cessation Counseling Given: no Health Care Maintenance: Health Maintenance Due Topic Date Due ??? Diabetes: Eye Exam Never done ??? DEXA Bone Density Never done ??? Diabetes: Foot Exam Never done ??? Hepatitis C Virus (HCV) Screening Never done ??? Colorectal Cancer Screening Never done ??? Mammogram Never done ??? Zoster Immunization (1 of 2) Never done ??? Hepatitis B Immunization (1 of 3 - Risk 3-dose series) Never done Orders Pended: no The following BPA's have been addressed with the patient today: Depression, Fall Risk, Nutrition and functional, learning PHQ-2 Little interest or pleasure in doing things: Not at all Feeling down, depressed, or hopeless: Not at all Initial Score - If the score is 2 or higher, please proceed with the additional evaluation.: 0 PHQ-9 3. Trouble falling asleep or staying asleep or sleeping too much?: 0 - Not at all 4. Feeling tired or having little energy?: 0 - Not at all 5. Poor appetite or overeating?: 0 - Not at all 6. Feeling bad about yourself or that you are a failure or have let yourself or your family down?: 0 - Not at all 7. Trouble concentrating on things, such as reading the newspaper or watching television?: 0 - Not at all 8. Moving or speaking so slowly that other people could have noticed. Or the opposite - being so fidgety or restless that you have been moving around a lot more than usual?: 0 - Not at all 9. Thoughts that you would be better off or of hurting yourself in some way?: 0 - Not at all 10. If you checked off any problems, how difficult have these problems made it for you to do your work, take care of things at home or get along with other people?: Not difficult at all Total Score - Questions 1-9: 0 K FAKER * Bhargavi Morel, PAC - 10/17/2023 1:00 PM CST Subjective: Subjective Patient in the office today to follow-up on chronic health conditions. She has type 2 diabetes thathas been poorly controlled. She has chronic urinary tract infection. Discuss she has atrial fibrillation and follows up with rn wound. She has chronic shortness of breath. Denies any worsening. Denies any paroxysmal nocturnal dyspnea. Has urinary frequency. Review of Systems Constitutional: Positive for fatigue. Negative for chills and fever. HENT: Negative for sore throat and trouble swallowing. Respiratory: Positive for shortness of breath. Negative for cough. Cardiovascular: Negative for chest pain and palpitations. Gastrointestinal: Negative for abdominal pain and vomiting. Genitourinary: Positive for frequency. Negative for dysuria. Musculoskeletal: Positive for arthralgias. Skin: Positive for rash. Objective: Objective Physical Exam Vitals reviewed. Constitutional: Appearance: Normal appearance. She is not ill-appearing. HENT: Head: Normocephalic and atraumatic. Eyes: General: Right eye: No discharge. Left eye: No discharge. Extraocular Movements: Extraocular movements intact. Cardiovascular: Rate and Rhythm: Normal rate and regular rhythm. Heart sounds: No murmur heard. Pulmonary: Effort: Pulmonary effort is normal. No respiratory distress. Breath sounds: Normal breath sounds. No wheezing. Skin: General: Skin is warm. Neurological: Mental Status: She is alert. Psychiatric: Mood and Affect: Mood normal. EXAM DESCRIPTION: CT CHEST W/O CONTRAST REASON FOR STUDY: Pneumonia, unspecified organism TECHNIQUE: CT scan of the chest performed without intravenous contrast using helical scanning technique. Reconstructed coronal and sagittal MPR images reviewed. All images stored on PACS. Automated exposure control was used as a dose optimization technique for this examination. COMPARISON: 06/10/2021 FINDINGS: The sensitivity for detection of solid visceral lesions is diminished without the use of intravenous contrast. Marked improved appearance of the pneumonia involving the right lower lobe and the minimal component involving the right upper lobe. Minimal if any significant residual airspace disease in these regions. Some ground-glass opacities persist in this region as well. Ground-glass opacities of the upper lung shah present and similar when allowing for differences in technique. Pleuroparenchymal opacities that are similar. No pneumothorax. Tiny right pleural effusion. Lymph nodes of the chest are similarly prominent. The reference node on previous exam is on axial image 41 on today's study measuring 2 cm x 1.1 cm. Heart remains enlarged. Postop changes of the chest. Multivessel calcified coronary arterial disease. Visualized portions of the abdomen are similar. No suspicious acute findings of the visualized portions of the abdomen. THIS IS AN ELECTRONICALLY VERIFIED FINAL REPORT 08/11/2021 9:06 AM - Electronically signed by Gordy Parekh M.D. JS: BRADY Report ID: [id number] Reading Location: [id number] IMPRESSION: 1. Complete or near complete resolution of the bronchial pneumonia of the right lower and right upper lobe. 2. Ground-glass opacities of the lungs that are similar. Similar pleuroparenchymal opacities. 3. Similar mildly prominent lymph nodes of the chest. Again these may be reactive. Continued follow-up recommended in 3 months. Assessment and Plan Assessment & Plan See Diagnoses, Orders, Follow-up, and Instructions .Diagnoses and all orders for this visit: Type 2 diabetes mellitus without complication, without long-term current use of insulin (HCC) - HEMOGLOBIN A1C W/ ESTIMATED GLUCOSE; Future - CMP (COMPREHENSIVE METABOLIC PANEL); Future - COMPLETE BLOOD COUNT (CBC) WITH DIFF; Future Hypothyroidism, unspecified type - THYROID STIMULATING HORMONE (TSH); Future Vitamin D deficiency Frequent UTI Chronic shortness of breath - COMPLETE PFT W + W/O BRONCHODILATOR; Future - CT CHEST W/O CONTRAST; Future Lymphadenopathy - CT CHEST W/O CONTRAST; Future Other orders - betamethasone valerate (VALISONE) 0.1 % Ointment; Application Site: apply twice daily to area on legs. Blood work for follow-up of diabetes. She discussed starting additional medication patient declinesat this time. Thyroid has been in range will continue current dose of levothyroxine. Frequent urinary tract infections will recheck urine. Recommend follow-up with urologist. Vitamin-D deficiency continue supplement. Chronic shortness of breath recommend CT of chest. This is ordered previously but she never completed. Suggest have done. Recommend pulmonary function test with a history of smoking.Apply steroid cream to rash on legs. Notify of no improvements. Discussed having a stress test willconsult with her rn wound. Return to clinic in 3 months notify of any acute problems. K FAKER documented in this encounter Plan of Treatment Upcoming Encounters Date Type Department Care Team (Late st Contact Info) Description 10/29/2024 9:30 AM SHANK FAKER Office Visit [facility] [address] [place] [address] Bhargavi Morel PAC [address] [place] [address] Scheduled Orders Name Type Priority Associated Diagnoses Orde r Schedule COMPLETE PFT W + W/O BRONCHODILATOR PFT Routine Chronic shortness of breath Expected: 02/14/2024, Expires: 02/13/2025 CT CHEST W/O CONTRAST Imaging Routine Chronic shortness of breath Lymphadenopathy Expected: 02/14/2024, Expires: 02/13/2025 documented as of this encounter Results * THYROID STIMULATING HORMONE (TSH) (10/17/2023 1:34 PM SHANK FAKER) TSH 1.725 0.300 - 5.000 mIU/L 10/17/2023 4:22 PM SHANK FAKER [facility] Blood Venipuncture / Unknown 10/17/2023 1:34 PM SHANK FAKER 10/17/2023 1:34 PM SHANK FAKER us Bhargavi Morel PAC CHEMISTRY ORDERABLES Fin al Result [facility] [address] [place] [address] * (ABNORMAL) CMP (COMPREHENSIVE METABOLIC PANEL) (10/17/2023 1:34 PM [facility]) SODIUM 135(L) 136 - 145 mmol/L 10/17/2023 4:05 PM [facility] POTASSIUM 4.7 3.5 - 5.1 mmol/L 10/17/2023 4:05 PM [facility] CHLORIDE 102 98 - 107 mmol/L 10/17/2023 4:05 PM [facility] CO2, VENOUS 24 22 - 30 mmol/L 10/17/2023 4:05 PM [facility] ANION GAP 13.7 <18.0 mmol/L 10/17/2023 4:05 PM [facility] GLUCOSE 212(H) 70 - 99 mg/dL 10/17/2023 4:05 PM [facility] BUN 17 10 - 20 mg/dL 10/17/2023 4:05 PM [facility] CREATININE, BLOOD 0.75 0.60 - 1.00 mg/dL 10/17/2023 4:05 PM [facility] BUN/CREATININE RATIO 23(H) 12 - 20 ratio 10/17/2023 4:05 PM [facility] TOTAL PROTEIN 7.4 6.3 - 8.2 g/dL 10/17/2023 4:05 PM [facility] ALBUMIN 3.7 3.5 - 5.0 g/dL 10/17/2023 4:05 PM [facility] A/G RATIO 1.0 1.0 - 2.2 10/17/2023 4:05 PM [facility] CALCIUM 9.1 8.7 - 10.5 mg/dL 10/17/2023 4:05 PM [facility] T BILI 0.3 0.2 - 1.2 mg/dL 10/17/2023 4:05 PM [facility] SGOT (AST) 29 5 - 34 U/L 10/17/2023 4:05 PM SHANK FAKER [facility] SGPT (ALT) 26 0 - 55 U/L 10/17/2023 4:05 PM SHANK FAKER [facility] ALKALINE PHOSPHATASE 98 40 - 150 U/L 10/17/2023 4:05 PM [facility] IS THE PATIENT REQUIRED TO BE FASTING? No 10/17/2023 4:05 PM SHANK FAKER [facility] GFR, ESTIMATED >60 >=60 10/17/2023 4:05 PM [facility] Comment: Creatinine Clearance is the preferred criteria for selecting drug dose adjustments in renally impaired patients. ??The GFR is provided as additional pertinent clinical information. GFR is reported in mL/min/1.73 sq m. Calculation based on the Chronic Kidney Disease Epidemiology Collaboration (CKD- EPI) equation refit without adjustment for race. GFR, EST. >60 >=60 024 4:05 PM SHANK FAKER [facility] GFR, EST. NONAFRICAN >60 >=60 10/17/2023 4:05 PM SHANK FAKER [facility] Blood Venipuncture / Unknown 10/17/2023 1:34 PM SHANK FAKER 10/17/2023 1:34 PM SHANK FAKER us Bhargavi Morel PAC CHEMISTRY ORDERABLES Fin al Result [facility] [address] [place] [address] * (ABNORMAL) HEMOGLOBIN A1C W/ ESTIMATED GLUCOSE (10/17/2023 1:34 PM SHANK FAKER) HGB-A1C 11.3(H) 4.0 - 6.0 % 10/17/2023 3:50 PM SHANK FAKER [facility] Est Average Glucose 277.6 mg/dL 10/17/2023 3:50 PM SHANK FAKER [facility] Blood Venipuncture / Unknown 10/17/2023 1:34 PM SHANK FAKER 10/17/2023 1:34 PM SHANK FAKER Narrative [facility] - 10/17/2023 3:50 PM SHANK FAKER HEMOGLOBIN A1C: DIABETIC PATIENTS: WELL-CONTROLLED: ?? 6.2 - 7.0 INTERMEDIATE WELL-CONTROLLED: ??7.0 - 9.0 POORLY-CONTROLLED: ??>9.0 us Bhargavi Morel PAC CHEMISTRY ORDERABLES Fin al Result [facility] [address] [place] [address] documented in this encounter Visit Diagnoses Diagnosis Type 2 diabetes mellitus without complication, without long-term current use of insulin (HCC)- Primary Hypothyroidism, unspecified type Vitamin D deficiency Unspecified vitamin D deficiency Frequent UTI Urinary tract infection, site not specified Chronic shortness of breath Lymphadenopathy Enlargement of lymph nodes documented in this encounter Additional Health Concerns Assessment Noted Time PHQ-9 Depression Total Score: 0 10/17/19 24 12:52 PM SHANK FAKER documented as of this encounter Care Teams Echocardiologist Relationship Specialty Start Date End Date Bhargavi Morel PAC [address] [place] [address] PCP - General Physician Inside Sales Assistant 07/22/23 Flaquito Hurd MD [address] [place] [address] Consulting Physician Pulmonary Disease 11/09/22 documented as of this encounter
--- OUTSIDE RECORDS SUMMARY | 2024-08-30 18:48 | XMS_ITS | Encounter Summary ---
Author Organization [facility] Address [address] [place] [address] Phone Care Team Providers Care Funeral Home Manager Name Role Phone Bhargavi Morel Primary Care Provider + Flaquito Hurd MD Unavailable Reason for Visit * Reason Comments Medication Refill Encounter Details Date Type Department Care Team (Late Contact Info) Description 09/20/2023 Refill [facility] [address] [place] [address] Bhargavi Morel PAC [address] [place] [address] Medication Refill Social History Tobacco Use Types [...] Telephone Encounter - Emeli Walsh RN - 09/20/2023 3:28 PM EVP GENERAL COUNSEL PDMP 08/10/23 7 day supply Medication failed the protocol, provider to review and approve the medication order if appropriate. Requested Prescriptions Pending Prescriptions Disp Refills traMADol (ULTRAM) 50 MG Tablet [Pharmacy Med Name: TRAMADOL HCL 50MG TABS] 28 Tablet 0 Sig: TAKE ONE TABLET BY MOUTH EVERY 6 HOURS NEEDED FOR MODERATE OR SEVERE PAIN Not Delegated - Opioid Agonists Protocol Failed - 09/20/2023 12:11 PM Failed - This refill cannot be delegated Passed - Visit with relevant provider in past 12 months or upcoming 90 days Recent Visits Date Type Provider Dept 07/11/23 Office Visit Bhargavi Morel PAC [facility] 04/10/23 Office Visit Bhargavi Morel PAC [facility] 10/18/22 Office Visit Bhargavi Morel PAC [facility] Showing recent visits within past 365 days and meeting all other requirements Future Appointments Date Type Provider Dept 10/17/23 Appointment Bhargavi Morel PAC [facility] Showing future appointments within next 90 days and meeting all other requirements GENERAL COUNSEL documented in this encounter Plan of Treatment Upcoming Encounters Date Type Department Care Team (Late st Contact Info) Description 10/29/2024 9:30 AM EVP GENERAL COUNSEL Office Visit [facility] [place] [address] [place] [address] Bhargavi Morel PAC [address] [place] [address] documented as of this encounter Visit Diagnoses Diagnosis Pain and swelling of right knee documented in this encounter Additional Health Concerns Assessment Noted Time PHQ-9 Depression Total Score: 0 10/18/19 1:27 PM EVP GENERAL COUNSEL documented as of this encounter Care Teams Funeral Home Manager Relationship Specialty Start Date End Date Bhargavi Morel PAC [address] [place] [address] PCP - General Physician Wallpaper Hanger 07/22/23 Flaquito Hurd MD [address] [place] [address] Consulting Physician Pulmonary Disease 11/09/22 documented as of this encounter
--- OUTSIDE RECORDS SUMMARY | 2024-08-30 18:48 | XMS_ITS | Encounter Summary ---
Author Organization [facility] Address [address] [place] [address] Phone Care Team Providers Care Electric Track Switch Maintainer Name Role Phone BriannamaryBhargavi mitchell Primary Care Provider + Flaquito Hurd MD Unavailable Wes Petty MD Unavailable Reason for Referral * Radiology Services (STAT with Interpretation) - Closed Specialty Diagnoses / Procedures Referred By Contac t Referred To Contact Radiology Diagnoses Right leg swelling Procedures US RIGHT DUPLEX LOWER EXTREMITY VEINS Cole Garsia APRN, GAIL [address] [address] Phone: tel: fax: Referral ID Status Reason Start Date Expiration Date Visits Re quested Visits Authorized [id number] Closed 03/24/2024 1 1 Reason for Visit * Radiology Services (STAT with Interpretation) - Closed Specialty Diagnoses / Procedures Referred By Contac t Referred To Contact Radiology Diagnoses Right leg swelling Procedures US RIGHT DUPLEX LOWER EXTREMITY VEINS Cole Garsia APRN, GAIL [address] [address] Phone: tel: fax: Referral ID Status Reason Start Date Expiration Date Visits Re quested Visits Authorized [id number] Closed 03/24/2024 1 1 Encounter Details Date Type Department Care Team (Latest Contact Info) Description 03/25/2024 7:01 AM CDT - 03/25/2024 11:59 PM CDT Hospital Encounter [facility] Ultrasound [address] [place] [id number] Cole Garsia, WINDOW SHADE CLOTH SEWER, BINDING CUTTER [address] [place] [address] Discharge Disposition: Discharged to home or Selfcare Social History Tobacco Use Types Packs/Day Years Used Date Smoking Tobacco: Former Cigarettes 2 35 Smokeless Tobacco: Never Alcohol Use Standard Drinks/Week Comments Not Currently 0 (1 standard drink = 0.6 oz pur e alcohol) [facility] Utilities Answer Date Recorded In the [...] declined 03/18/2024 How often do you attend episcopal or synagogue serv ices? Patient declined 03/18/2024 Do you belong to any clubs o r organizations such as episcopal groups, unions, fraternal or athletic groups, or [...] Total Score - Questions 1-9 0 09/28 [facility]at ional [facility] - Occupational Stress Questionnaire Answer Date Recorded [...] any time in the past 12 m [facility], were you homeless or living in a [...] complication, without long-term current use of insulin ([facility]) glDiagnosis: Diabetes type 2 Blood testing frequency: once a day 1 Each 04/10/2023 docusate sodium 100 MG Capsule Take by mouth daily as needed for Constipation - 1st line. 02/02/2024 empagliflozin (JARDIANCE) 25 MG TabletIndications :Type 2 diabetes mellitus without complication, without long-term current use of insulin ([facility]) Take 1 Tablet by mouth daily. 90 Tablet 3 01/21/2024 furosemide (LASIX) 40 MG Tablet Take 0.5 Tablets by mouth daily. 90 Tablet 1 05/04/2021 Glucose Blood StripIndications: Type 2 diabetes mellitus without complication, without long-term current use of insulin ([facility]) Diagnosis: Diabetes type 2 Blood testing frequency: [...] st Contact Info) Description 10/29/2024 9:30 AM DATABASES SOFTWARE CONSULTANT Office Visit [facility] - [facility] [place] [address] [place] [address] Bhargavi Morel, PAC [address] [place] [address] documented as of this encounter Procedures Procedure Name Priority Date/Time Associated Diagnosis Comments US RIGHT DUPLEX LOWER EXTREMITY VEINS Stat with Interpretation 03/25/2024 7:36 AM CDT Right leg swelling documented in this encounter Results * US RIGHT DUPLEX [...] AM - Electronically signed by ??Andrés Reddy M.D. JR: D: ??03/25/2024 7:39 AM T: ??03/25/2024 7:39 AM Report ID: [id number] Reading Location: ??[id number] Procedure Note Andrés Reddy MD - 03/25/2024 [...] by Andrés Reddy M.D. JR: Report ID: [id number] Reading Location: [id number] IMPRESSION: No lower extremity deep venous thrombosis. us Cole Garsia APRN, CNP IMG US ORDERABLE S Final Result documented in this encounter Visit Diagnoses Diagnosis Right leg swelling documented in this encounter Additional Health Concerns Assessment Noted Time PHQ-9 Depression Total Score: 0 10/17/19 24 12:52 PM DATABASES SOFTWARE CONSULTANT documented as of this encounter Care Teams Electric Track Switch Maintainer Relationship Specialty Start Date End Date Bhargavi Morel, [facility] [address] [place] [address] PCP - General Physician Lump Room Supervisor 07/22/23 Flaquito Hurd MD [address] [place] [phone] Consulting Physician Pulmonary Disease 11/09/22 Wes Petty MD [address] [phone] Consulting Physician Urology 01/18/24 documented as of this encounter
--- OUTSIDE RECORDS SUMMARY | 2024-08-30 18:48 | XMS_ITS | Encounter Summary ---
Author Organization [facility] Care Team Providers Care Supervisor Mold Shop Name Role Phone Jovita Bermudez MD Primary Care Provider [phone] Flaquito Hurd MD Unavailable Encounter Details Date Type Department Care Team (Latest Contact Info) Description 07/11/2023 Travel Social History Tobacco Use Types Packs/Day [...] AM CDT documented as of this encounter Functional Status * Question Answer Date of Assessment Author Little interest or pleasure in doing things Not at all 07/11/2023 3:06 PM Jayde Moy MA Feeling down, depressed, or hopeless Not at all 07/11/2023 3:06 PM Jayde Moy MA * Over the past 2 weeks, how often have you been bothered by any of the following problems? Question Answer Date of Assessment Author Patient Health Questionnaire -2 Score 0 07/11/2023 3:06 PM FARM TRUCK DRIVER Jayde Haas MA documented as of this encounter Plan of Treatment Upcoming Encounters Date Type Department Care Team (Late st Contact Info) Description 10/29/2024 9:30 AM FARM TRUCK DRIVER Office Visit [facility] #2 [place] [address] Bhargavi Morel PAC [address] [place] [address] documented as of this encounter Visit Diagnoses Not on filedocumented in this encounter Additional Health Concerns Assessment Noted Time PHQ-9 Depression Total Score: 0 10/18/19 23 1:27 PM FARM TRUCK DRIVER documented as of this encounter Care Teams Supervisor Mold Shop Relationship Specialty Start Date End Date Jovita Bermudez MD [address] [place] [address] PCP - General Family Medicine 11/30/20 07/21/23 Flaquito Hurd MD [address] [place] [address] Consulting Physician Pulmonary Disease 11/09/22 documented as of this encounter
--- OUTSIDE RECORDS SUMMARY | 2024-08-30 18:48 | XMS_ITS | Encounter Summary ---
Author Organization [facility] Address [address] [place] [address] Phone Care Team Providers Care Computer Typesetter Name Role Phone Bhargavi Morel ARAM Primary Care Provider + Flaquito Hurd MD Unavailable Wes Petty MD Unavailable Encounter Details Date Type Department Care Team (Late st Contact Info) Description 03/17/[address] [facility] - Pulmonology & Sleep Medicine [facility] [address] [place] [address] Flaquito Hurd MD [address] [place] [address] Social History Tobacco Use Types Packs/Day Years Used Date Smoking Tobacco: Former Cigarettes 2 35 Smokeless Tobacco: Never Alcohol Use Standard Drinks/Week Comments Not Currently 0 (1 standard drink = 0.6 oz pur e alcohol) [facility] Utilities Answer Date Recorded In the past 12 months has [employer] electric, gas, oil, or water company threatened [...] declined 03/18/2024 How often do you attend yazidi or presybeterian serv ices? Patient declined 03/18/2024 Do you belong to any clubs o r organizations such as yazidi groups, unions, fraternal or athletic groups, or [...] Total Score - Questions 1-9 0 09/28 [facility]at ional [facility] - [...] to sleep or slept in a senior living (including now)? No 01/16/2024 Housing Stability Vital [...] you homeless or living in a senior living (including now)? Patient declined 03/18/2024 Education Answer [...] Telephone Encounter - Betsy Cruz RN - 03/17/2024 9:02 AM CDT Medication failed the protocol, provider to review and approve the medication order if appropriate. Requested Prescriptions Pending Prescriptions Disp Refills gabapentin (NEURONTIN) 600 MG Tablet 30 Tablet 0 Sig: Take 1 Tablet by mouth daily. Not Delegated - Anticonvulsants Excluding Benzodiazepines Protocol Failed - 03/17/2024 9:01 AM Failed - This refill cannot be delegated Passed - Visit with relevant provider in past 12 months or upcoming 90 days Recent Visits Date Type Provider Dept 01/16/24 Office Visit Bhargavi Morel, ARAM [place] 10/17/23 Office Visit Bhargavi MorelARAM [facility] 07/11/23 Office Visit Briannamarystephen Bhargavi Goldberg PAC [facility] 04/10/23 Office Visit Briannamarystephen Bhargavi Goldberg, PAC [facility] Showing recent visits within past 365 days and meeting all other requirements Future Appointments Date Type Provider Dept 04/16/24 Appointment Naga Hughes MD [facility] 04/21/24 Appointment Flaquito Hurd MD [facility] Pulm & Sleep [facility] 04/23/24 Appointment PatricestephenBhargavi PAC [facility] Showing future appointments within next 90 days and meeting all other requirements * Telephone Encounter - Betsy Cruz RN - 03/17/2024 8:59 AM CDT Refill gabapentin documented in this encounter Plan of Treatment Upcoming Encounters Date Type Department Care Team (Late st Contact Info) Description 10/29/2024 9:30 AM DENTAL ASSOCIATE [facility] Visit [facility] [address] [place] [address] Bhargavi Morel PAC [address] [place] [address] documented as of this encounter Visit Diagnoses Diagnosis Restless legs syndrome (RLS) documented in this encounter Additional Health Concerns Assessment Noted Time PHQ-9 Depression Total Score: 0 10/17/19 24 12:52 PM DENTAL ASSOCIATE documented as of this encounter Care Teams Computer Typesetter Relationship Specialty Start Date End Date Bhargavi Morel PAC [address] [place] [address] PCP - General Physician Manager Systems 07/22/23 Flaquito Hurd MD [address] [place] [address] Consulting Physician Pulmonary Disease 11/09/22 Wes Petty MD [address] [phone] Consulting Physician Urology 01/18/24 documented as of this encounter
--- OUTSIDE RECORDS SUMMARY | 2024-08-30 18:48 | XMS_ITS | Encounter Summary ---
Author Organization [facility] Address [address] [place] [place] [address] Phone Care Team Providers Care Zinc Plater Name Role Phone Bhargavi Morel Primary Care Provider + Flaquito Hurd MD Unavailable Wes Petty MD Unavailable Reason for Visit * Reason Comments Medication Refill Encounter Details Date Type Department Care Team (Late st Contact Info) Description 10/23/2023 Refill [facility] #2 [place] [address] Bhargavi Morel PAC [address] [place] [address] Medication Refill Social History Tobacco Use Types [...] Telephone Encounter - Reanna Rios RN - 10/24/2023 8:24 AM CST PDMP 09/21/23 - 7 days Medication failed the protocol, provider to review and approve the medication order if appropriate. Requested Prescriptions Pending Prescriptions Disp Refills traMADol (ULTRAM) 50 MG Tablet [Pharmacy Med Name: TRAMADOL HCL 50MG TABS] 28 Tablet 0 Sig: TAKE ONE TABLET BY MOUTH EVERY 6 HOURS NEEDED FOR MODERATE OR SEVERE PAIN Not Delegated - Opioid Agonists Protocol Failed - 10/23/2023 4:38 PM Failed - This refill cannot be [...] Dept 01/16/24 Appointment Bhargavi Morel PAC [facility] Showing future appointments within next 90 days and meeting all other requirements N RESOURCES EXECUTIVE ASSISTANT documented in this encounter Plan of Treatment Upcoming Encounters Date Type Department Care Team (Late st Contact Info) Description 10/29/2024 9:30 AM HUMAN RESOURCES EXECUTIVE ASSISTANT Office Visit [facility] - [place] [address] [place] [address] Bhargavi Morel PAC [address] [place] [address] documented as of this encounter Visit Diagnoses Diagnosis Pain and swelling of right knee documented in this encounter Additional Health Concerns Assessment Noted Time PHQ-9 Depression Total Score: 0 10/17/19 24 12:52 PM HUMAN RESOURCES EXECUTIVE ASSISTANT documented as of this encounter Care Teams Zinc Plater Relationship Specialty Start Date End Date Bhargavi Morel PAC [address] [place] [address] PCP - General Physician Ichthyologist 07/22/23 Flaquito Hurd MD [address] [place] [address] Consulting Physician Pulmonary Disease 11/09/22 Wes Petty MD [address] [address] Consulting Physician Urology 01/18/24 documented as of this encounter
--- OUTSIDE RECORDS SUMMARY | 2024-08-30 18:48 | XMS_ITS | Encounter Summary ---
Author Organization [facility] Address [address] [place] [address] Phone Care Team Providers Care Used Car Make Ready Worker Name Role Phone Bhargavi Morel ARAM Primary Care Provider + Flaquito Hurd MD Unavailable Wes Petty MD Unavailable Reason for Visit * Reason Comments Medication Refill Encounter Details Date Type Department Care Team (Late st Contact Info) Description 01/29/2024 Refill [facility] [address] [place] [address] Jovita Bermudez MD [address] [place] [address] Medication Refill Social History Tobacco Use Types Packs/Day Years Used Date Smoking Tobacco: Former Cigarettes 2 35 Smokeless Tobacco: Never Alcohol Use Standard Drinks/Week Comments Not Currently 0 (1 standard drink = 0.6 oz pur e alcohol) [facility] Utilities Answer Date Recorded In the past 12 months has [employer] electric, gas, oil, or water company threatened [...] often do you attend chur ch or nondenominational services? Never 01/16/2024 Do you belong to any clubs o r organizations such as mormon groups, unions, fraternal or athletic groups, or [...] Total Score - Questions 1-9 0 09/28 [facility] Occupat ional Health - Occupational Stress [...] place to sleep or slept in a snf (including now)? No 01/16/2024 Education Answer Date [...] Telephone Encounter - Reanna Rios RN - 01/29/2024 1:21 PM CDT New Rx sent in 01/16/24 for 6 weeks - [facility] documented in this encounter Plan of Treatment Upcoming Encounters Date Type Department Care Team (Late st Contact Info) Description 10/29/2024 9:30 AM SHIPPING ASSISTANT Office Visit [facility] [address] [place] [address] Bhargavi Morel PAC [address] [place] [address] documented as of this encounter Visit Diagnoses Diagnosis Hypothyroidism, unspecified type documented in this encounter Additional Health Concerns Assessment Noted Time PHQ-9 Depression Total Score: 0 10/17/19 24 12:52 PM SHIPPING ASSISTANT documented as of this encounter Care Teams Used Car Make Ready Worker Relationship Specialty Start Date End Date Bhargavi Morel PAC [address] [place] [address] PCP - General Physician Basin Operator 07/22/23 Flaquito Hurd MD [address] [place] [address] Consulting Physician Pulmonary Disease 11/09/22 Wse Petty MD [address] [address] Consulting Physician Urology 01/18/24 documented as of this encounter
--- OUTSIDE RECORDS SUMMARY | 2024-08-30 18:48 | XMS_ITS | Encounter Summary ---
Author Organization [facility] Care Team Providers Care Costume Mistress Name Role Phone Gena Morela Marialexander CHIU Primary Care Provider + Flaquito Hurd MD Unavailable Encounter Details Date Type Department Care Team (Latest Contact Info) Description 10/17/2023 Travel Social History Tobacco Use Types Packs/Day [...] things Not at all 10/17/2023 12:52 PM Brittney Deng CMA Feeling down, depressed, or hopeless Not at all 10/17/2023 12:52 PM Brittney Deng CMA * Over the past 2 weeks, how often have you been bothered by any of the following problems? Question Answer Date of Assessment Author Patient Health Questionnaire -2 Score 0 10/17/2023 12:52 PM Brittney Deng CMA documented as of this encounter Plan of Treatment Upcoming Encounters Date Type Department Care Team (Late st Contact Info) Description 10/29/2024 9:30 AM HOUSE SUPERVISOR Office Visit [facility] [address] [place] [address] Bhargavi Morel PAC [address] [place] [address] documented as of this encounter Visit Diagnoses Not on filedocumented in this encounter Additional Health Concerns Assessment Noted Time PHQ-9 Depression Total Score: 0 10/17/19 24 12:52 PM HOUSE SUPERVISOR documented as of this encounter Care Teams Costume Mistress Relationship Specialty Start Date End Date Bhargavi Morel PAC [address] [place] [address] PCP - General Physician Managing Member 07/22/23 Flaquito Hurd MD [address] [place] [address] Consulting Physician Pulmonary Disease 11/09/22 documented as of this encounter
--- OUTSIDE RECORDS SUMMARY | 2024-08-30 18:48 | XMS_ITS | Encounter Summary ---
Author Organization [facility] Address [address] [place] [address] Phone Care Team Providers Care Peanut Shaker Name Role Phone Bhargavi Morel Primary Care Provider + Flaquito Hurd MD Unavailable Reason for Referral * Consult, Test & Initiate Treatment (Routine) - Closed Specialty Diagnoses / Procedures Referred By Shayan dhillon Referred To Contact Urology Diagnoses Frequent UTI Procedures OFFICE/OP NEW LVL 3 LOW MDM/30-44 MIN OFFICE/OP EST LVL 3 LOW MDM/20-29 MIN Bhargavi Morel PAC [address] [place] [address] Phone: tel: fax: [facility] [address] [place] [address] Phone: tel: fax: Referral ID Status Reason Start Date Expiration Date Visits Re quested Visits Authorized [id number] Closed 09/07/2023 1 11 Scheduling Instructions Tressa is being referred for frequent UTI. Please contact patient for scheduling questions or concerns. E BANKER Reason for Visit * Reason Onset Date Comments Advice Only 09/07/2023 Follow-up 09/07/2023 Urinary Pain 09/07/2023 Encounter Details Date Type Department Care Team ([facility] Contact Info) Description 09/07/2023 Telephone [facility] [address] [place] [address] Bhargavi Morel, ARAM [address] [place] [address] Advice Only; Follow-up; Urinary Pain Social History Tobacco Use Types [...] Telephone Encounter - Haven Segovia RN - 09/07/2023 12:58 PM STONE BANKER Spoke with patient to relay note. Patient will get UA done at hospital. Patient reported that she thought a urology referral was already entered in Jun. Chart review showed closed referral due to inability to reach patient. Provided patient with referral number to contact them for more assistance. E BANKER * Addendum Note - Bhargavi Morel PAC - 09/07/2023 12:24 PM CSTAddended by: BHARGAVI MOREL on: 09/07/2023 12:24 PM Modules accepted: Orders E BANKER * Telephone Encounter - Bhargavi Morel PAC - 09/07/2023 12:22 PM STONE BANKER Suggest urine test as hospital notify if fever, chills, illness symptoms Lab order is placed Also recommend see urologist as she is having frequent UTI E BANKER * Telephone Encounter - Mandy Ceja RN - 09/07/2023 12:04 PM CST SITUATION: Patient calling to report continuing UTI symptoms. BACKGROUND: 08/26/23 - Nurse triage call with same symptoms. 08/26/23 - [facility], was prescribed antibiotic. Patient can not remember name, finished this am. Reports is still having symptoms. Same symptoms, no worsening. A: Reports: painful urination Denies: fever, chills, flank pain, blood in urine. Patient asking pcp for recommendations. Please advise. E BANKER * Telephone Encounter - Jessica Bassett - 09/07/2023 11:53 AM CST Symptom: Urination Pain Outcome: Transfer to conservation specialist queue Reason: This is the only possible outcome for this symptom The caller accepted this outcome E BANKER documented in this encounter Plan of Treatment Upcoming Encounters Date Type Department Care Team (Late st Contact Info) Description 10/29/2024 9:30 AM STONE BANKER [facility] Visit [facility] [address] [place] [address] Bhargavi Morel PAC [address] [place] [address] Scheduled Referrals Name Type Priority Associated Diagnoses Orde r Schedule UROLOGY REFERRAL Outpatient Referral Routine Frequent UTI Expected: 10/17/2023, Expires: 09/07/2024 documented as of this encounter Visit Diagnoses Diagnosis Dysuria- Primary Frequent UTI Urinary tract infection, site not specified documented in this encounter Additional Health Concerns Assessment Noted Time PHQ-9 Depression Total Score: 0 10/18/19 1:27 PM STONE BANKER documented as of this encounter Care Teams Peanut Shaker Relationship Specialty Start Date End Date Bhargavi Morel PAC [address] [place] [address] PCP - General Physician Meat Supervisor 07/22/23 Flaquito Hurd MD [address] [place] [address] Consulting Physician Pulmonary Disease 11/09/22 documented as of this encounter
--- OUTSIDE RECORDS SUMMARY | 2024-08-30 18:48 | XMS_ITS | Encounter Summary ---
Author Organization [facility] Address [address] [place] [address] Phone Care Team Providers Care Core Sticker Name Role Phone Bhargavi Morel Primary Care Provider + Flaquito Hurd MD Unavailable Reason for Visit * Reason Onset Date Comments Prior Authorization 12/11/2023 Encounter Details Date Type Department Care Team (Late st Contact Info) Description 12/11/2023 Telephone [facility] #2 [place] [address] Bhargavi Morel PAC [address] [place] [address] Prior Authorization Social History Tobacco Use Types Packs/Day Years [...] encounter Miscellaneous Notes * Telephone Encounter - Edel Elena - 12/14/2023 1:06 PM CDT Medication approved until 08/26/24, faxed approval to pharmacy. * Telephone Encounter - Edel Elena - 12/13/2023 11:20 AM CDT Submitted prior authorization to insurance. * Telephone Encounter - Bhargavi Morel PAC - 12/11/2023 5:08 PM CDT If able to start ozempic would go off januvia as not keeping blood sugars at goal * Telephone Encounter - Edel Elena - 12/11/2023 4:03 PM CDT Insurance asking: Our records show the patient is taking Januvia 100 mg tablet in the same therapeutic/pharmacologic class as the requested drug. Is the plan to keep the patient on both drugs?* * Telephone Encounter - Bhargavi Morel PAC - 12/11/2023 3:25 PM CDT Ok for PA * Telephone Encounter - Edel Elena - 12/11/2023 2:22 PM CDT Insurance requiring a prior authorization on Ozempic, ok to proceed? documented in this encounter Plan of Treatment Upcoming Encounters Date Type Department Care Team (Late st Contact Info) Description 10/29/2024 9:30 AM ONCOLOGY REP SPECIALIST Office Visit [facility] [address] [place] [address] Bhargavi Morel PAC [address] [place] [address] documented as of this encounter Visit Diagnoses Not on filedocumented in this encounter Additional Health Concerns Assessment Noted Time PHQ-9 Depression Total Score: 0 10/17/19 24 12:52 PM ONCOLOGY REP SPECIALIST documented as of this encounter Care Teams Core Sticker Relationship Specialty Start Date End Date Bhargavi Morel PAC [address] [place] [address] PCP - General Physician Chart Picker 07/22/23 Flaquito Hurd MD [address] [place] [address] Consulting Physician Pulmonary Disease 11/09/22 documented as of this encounter
--- OUTSIDE RECORDS SUMMARY | 2024-08-30 18:48 | XMS_ITS | Encounter Summary ---
Author Organization [facility] Address [address] [place] [place] [address] Phone Care Team Providers Care Chief Inspector Name Role Phone Bhargavi Morel ARAM Primary Care Provider + Flaquito Hurd MD Unavailable Wes Petty MD Unavailable Reason for Visit * Reason Comments Medication Refill Encounter Details Date Type Department Care Team (Late st Contact Info) Description 12/13/2023 Refill [facility] [address] [place] [address] Jovita Bermudez MD [address] [place] [address] Medication Refill Social History Tobacco Use Types [...] encounter Miscellaneous Notes * Telephone Encounter - Renana Rios RN - 12/13/2023 8:48 AM CDT Medication(s) refilled and signed per [facility] Chronic Medication Refill Standing Order for Pediatricand Adult Patients. Requested Prescriptions Pending Prescriptions Disp Refills metFORMIN (GLUCOPHAGE) 1000 MG Tablet [Pharmacy Med Name: METFORMIN HCL 1000MG TABS] 180 Tablet 1 Sig: TAKE ONE TABLET BY MOUTH TWICE A DAY Biguanides Protocol Passed - 12/13/2023 2:07 AM Passed - Visit with relevant provider in past 6 months or upcoming 90 days Recent Visits Date Type Provider Dept 10/17/23 [facility] [place] 07[facility]/23 Office Visit Bhargavi Morel PAC [facility] Showing recent visits within past 182 days and meeting all other requirements Future Appointments Date Type Provider Dept 01/16/24 Appointment Bhargavi Morel PAC [facility] Showing future appointments within next 90 [...] st Contact Info) Description 10/29/2024 9:30 AM PRINCIPAL ENGINEER Office Visit [facility] - [place] [address] [place] [address] Bhargavi Morel PAC [address] [place] [address] documented as of this encounter Visit Diagnoses Not on filedocumented in this encounter Additional Health Concerns Assessment Noted Time PHQ-9 Depression Total Score: 0 10/17/19 12:52 PM PRINCIPAL ENGINEER documented as of this encounter Care Teams Chief Inspector Relationship Specialty Start Date End Date Bhargavi Morel PAC [address] [place] [address] PCP - General Physician X Ray Operator 07/22/23 Flaquito Hurd MD [address] [place] [address] Consulting Physician Pulmonary Disease 11/09/22 Wes Petty MD [address] [address] Consulting Physician Urology 01/18/24 documented as of this encounter
--- OUTSIDE RECORDS SUMMARY | 2024-08-30 18:48 | XMS_ITS | Encounter Summary ---
Author Organization [facility] Address [address] [place] [address] Phone Care Team Providers Care Jig Grinder Name Role Phone Bhargavi Morel PAC Primary Care Provider + Flaquito Hurd MD Unavailable Wes Petty MD Unavailable Reason for Visit * Reason Onset Date Comments Erroneous Encounter - Disregard 03/24/2024 Encounter Details Date Type Department Care Team (Late st Contact Info) Description 03/24/2024 Telephone [facility] [address] [place] [address] Bhargavi Morel, PAC [address] [place] [address] Erroneous Encounter - Disregard Social History Tobacco Use Types Packs/Day Years Used Date Smoking Tobacco: Former Cigarettes 2 35 Smokeless Tobacco: Never Alcohol Use Standard Drinks/Week Comments Not Currently 0 (1 standard drink = 0.6 oz pur e alcohol) [facility] Utilities Answer Date Recorded In the past 12 months has [employer], gas, oil, or water company threatened to [...] declined 03/18/2024 How often do you attend evangelical or yazdanism serv ices? Patient declined 03/18/2024 Do you belong to any clubs o r organizations such as evangelical groups, unions, fraternal or athletic groups, or [...] Questions 1-9 0 09/28 [facility] Occupat ional [facility] - Occupational Stress Questionnaire Answer Date Recorded [...] time in the past 12 m [facility], were you homeless or living in [...] encounter Miscellaneous Notes * Telephone Encounter - Jayde Pena RN - 03/24/2024 10:53 AM CDT Erroneous Encounter documented in this encounter Plan of Treatment Upcoming Encounters Date Type Department Care Team (Late st Contact Info) Description 10/29/2024 9:30 AM INSPECTOR MACHINE CUT GLASS Office Visit [facility] - Family [facility] [address] [place] [address] Bhargavi Morel, PAC [address] [place] [address] documented as of this encounter Visit Diagnoses Diagnosis ERRONEOUS ENCOUNTER--DISREGARD- Primary documented in this encounter Additional Health Concerns Assessment Noted Time PHQ-9 Depression Total Score: 0 10/17/19 24 12:52 PM INSPECTOR MACHINE CUT GLASS documented as of this encounter Care Teams Jig Grinder Relationship Specialty Start Date End Date Bhargavi Morel PAC [address] [place] [address] PCP - General Physician Telegraphic Typewriter Operator 07/22/23 Flaquito Hurd MD [address] [place] [address] Consulting Physician Pulmonary Disease 11/09/22 Wes Petty MD [address] [address] Consulting Physician Urology 01/18/24 documented as of this encounter
--- OUTSIDE RECORDS SUMMARY | 2024-08-30 18:48 | XMS_ITS | Encounter Summary ---
Author Organization [facility] Address [address] [place] [address] Phone Care Team Providers Care Director Of Sustainability Programs Name Role Phone Bhargavi Morel Primary Care Provider + Flaquito Hurd MD Unavailable Wes Petty MD Unavailable Reason for Visit * Reason Onset Date Comments Medication Refill Med Change Request 01/05/2024 Encounter Details Date Type Department Care Team (Late st Contact Info) Description 01/05/2024 Refill [facility] - [facility] [address] [place] [address] Bhargavi Morel PAC [address] [place] [address] Medication Refill; Med Change Request Social History Tobacco Use Types Packs/Day Years [...] Telephone Encounter - Beth Hawthorne RN - 01/07/2024 12:40 PM CDT S= Medication change request B= see note below betamethasone valerate (VALISONE) 0.1 % Ointment 45 g 3 01/07/2024 -- Sig: APPLY TWICE DAILY TO AREA ON LEGS Sent to pharmacy as: Betamethasone Valerate 0.1 % External Ointment (VALISONE) Class: E Prescribe E-Prescribing Status: Receipt confirmed by pharmacy (01/07/2024 8:17 AM CDT) A= Pharmacy does not have ointment. Pharmacy does have the medication in a cream R= Would provider be okay with the pharmacy auto subbing the ointment with a cream? * Telephone Encounter - Reanna Rios RN - 01/07/2024 8:15 AM CDT Medication failed the protocol, provider to review and approve the medication order if appropriate. Requested Prescriptions Pending Prescriptions Disp Refills betamethasone valerate (VALISONE) 0.1 % Ointment [Pharmacy Med Name: BETAMETHASONE VALERATE 0.1% OINT] 45 g 3 Sig: APPLY TWICE DAILY TO AREA ON LEGS Not Delegated - Topical Steroids Protocol Failed - 01/05/2024 2:10 AM Failed - This refill cannot be delegated Passed - Visit with relevant provider in past 12 months or upcoming 90 days Recent Visits Date Type Provider Dept 10/17/23 Office Visit Bhargavi Morel PAC [facility] 07/11/23 Office Visit Bhargavi Morel PAC [facility] 04/10/23 Office Visit [facility] Morel [facility] [place] Showing recent visits within past 365 days and meeting all other requirements Future Appointments Date Type Provider Dept 01/16/24 Appointment Bhargavi Morel PAC [facility] [place] Showing future appointments within next 90 days and meeting all other requirements Refused Prescriptions Disp Refills glipiZIDE (GLUCOTROL) 5 MG Tablet [Pharmacy Med Name: GLIPIZIDE 5MG TABS] 90 Tablet 0 Sig: TAKE 1/2 TABLET BY MOUTH DAILY, AFTER BREAKFAST Sulfonylureas Protocol Passed - 01/05/2024 2:10 AM Passed - Visit with relevant provider in past 6 months or upcoming 90 days Recent Visits Date Type Provider Dept 10/17/23 Office Visit Bhargavi Morel PAC [facility] 07/11/23 Office Visit Bhargavi Morel PAC [facility] Showing recent visits within past 182 days [...] Ref Range Status 10/17/2023 >60 >=60 Final * Telephone Encounter - Reanna Rios RN - 01/07/2024 8:10 AM CDT Images from the original note were not included. Signed 1 week ago (12/26/2023): glipiZIDE (GLUCOTROL) 5 MG Tablet Sig: TAKE 1/2 TABLET BY MOUTH DAILY, AFTER BREAKFAST Disp: 90 Tablet Refills: 1 Signed by: Bhargavi Morel PAC [facility] glipiZIDE Dispensed Days Supply Quantity Provider Pharmacy glipizide 5 mg tablet 12/26/2023 90 45 Tablet Bhargavi Morel PAC [facility]... glipizide 5 mg tablet 10/03/2023 90 45 Tablet Bhargavi Morel PAC [facility] documented in this encounter Plan of Treatment Upcoming Encounters Date Type Department Care Team (Late st Contact Info) Description 10/29/2024 9:30 AM SHOE TREER Office Visit [facility] [address] [place] [address] Bhargavi Morel PAC [address] [place] [address] documented as of this encounter Visit Diagnoses Not on filedocumented in this encounter Additional Health Concerns Assessment Noted Time PHQ-9 Depression Total Score: 0 10/17/19 12:52 PM SHOE TREER documented as of this encounter Care Teams Director Of Sustainability Programs Relationship Specialty Start Date End Date Bhargavi Morel PAC [address] [place] [address] PCP - General Physician Horticultural Nursery Assistant 07/22/23 Flaquito Hurd MD [address] [place] [address] Consulting Physician Pulmonary Disease 11/09/22 Wes Petty MD [address] [address] [address] Consulting Physician Urology 01/18/24 documented as of this encounter
--- OUTSIDE RECORDS SUMMARY | 2024-08-30 18:48 | XMS_ITS | Encounter Summary ---
Author Organization [facility] Address [address] [place] [address] Phone Care Team Providers Care Plate [employer] Hand Name Role Phone Maria Teresa Vania PAC Primary Care Provider + Flaquito Hurd MD Unavailable Wes Petty MD Unavailable Reason for Referral * Radiology Services (Routine) - Closed Specialty Diagnoses / Procedures Referred By Contac t Referred To Contact Radiology Diagnoses Right leg swelling Procedures XR KNEE 3 VIEWS RIGHT Cole Garsia APRN, GAIL [address] [address] Phone: tel: fax: Referral ID Status Reason Start Date Expiration Date Visits Re quested Visits Authorized [id number] Closed 03/18/2024 1 1 * Radiology Services (Routine) - Closed Specialty Diagnoses / Procedures Referred By Contac t Referred To Contact Radiology Diagnoses Low oxygen saturation Procedures XR CHEST 2 VIEWS Cole Garsia APRN, [facility] #[address] [address] Phone: tel: fax: Referral ID Status Reason Start Date Expiration Date Visits Re quested Visits Authorized [id number] Closed 03/18/2024 1 1 Reason for Visit * Reason Comments Knee Pain Encounter Details Date Type Department Care Team (Late st Contact Info) Description 03/18/2024 8:15 AM CDT Office Visit [facility] - Family [facility] [address] [place] [address] Cole Garsia APRN, GA[facility] [address] [address] Right leg swelling (Primary Dx); Low oxygen saturation Discharge Disposition: Discharged to home or Selfcare Social History Tobacco Use Types Packs/Day Years Used Date Smoking Tobacco: Former Cigarettes 2 35 Smokeless Tobacco: Never Tobacco Cessation:Counseling Given: No Alcohol Use Standard Drinks/Week Comments Not Currently 0 (1 standard drink = 0.6 oz pur e alcohol) [facility] Utilities Answer Date Recorded In the past 12 months has [employer], gas, oil, or water [employer] threatened to shut off services in your home? Patient declined 03/18/2024 Social Connection and Isolation Panel [NHANES] A nswer Date Recorded In a typical week, how many times do you talk on the phone with family, friends, or neighbors? Patient declined 03/18/2024 How often do you get togethe r with friends or relatives? Patient declined 03/18/2024 How often do you attend tenriism or confucianist serv ices? Patient declined 03/18/2024 Do you belong to any clubs o r organizations such as tenriism groups, unions, fraternal or athletic groups, or [...] Total Score - Questions 1-9 0 09/28 [facility] - Occupational Stress Questionnaire Answer Date [...] any time in the past 12 m ont, were you homeless or living in a [...] Sign Reading Time Taken Comments Blood Pressure 110/72 03/18/2024 8:20 AM CDT Pulse 67 03/18/2024 8:47 AM CDT Temperature 36.6 ??C (97.8 ??F) 03/18/2024 8:20 AM CD T Respiratory Rate 16 03/18/2024 8:20 AM CDT Oxygen Saturation 90% 03/18/2024 8:47 AM CDT Inhaled Oxygen Concentration - - Weight 102.5 kg (226 lb) 03/18/2024 8:20 AM CDT Height 154.9 cm (5' 1 ) 03/18/2024 8:20 AM CDT Body Mass Index 42.7 03/18/2024 8:20 AM CDT documented in this encounter Functional Status * Audit-C Score Answer Date of Assessment Author -1 03/18/2024 7:56 AM CDT [facility] * Within the last year, have you been humiliated or emotionally abused in other ways by your partner or ex-partner? Answer Date of Assessment Author Patient declined 03/18/2024 7:56 AM CDT [facility] * Within the last year, have you been afraid of your partner or ex-partner? Answer Date of Assessment Author Patient declined 03/18/2024 7:56 AM CDT [facility] * Within the last year, have you been raped or forced to have any kind of sexual activity by your partner or ex-partner? Answer Date of Assessment Author Patient declined 03/18/2024 7:56 AM CDT [facility] * Within the last year, have you been kicked, hit, slapped, or otherwise physically hurt by your partner or ex-partner? Answer Date of Assessment Author Patient declined 03/18/2024 7:56 AM CDT [facility] * Q1: How often do you have a drink containing alcohol? Answer Date of Assessment Author Patient declined 03/18/2024 7:56 AM CDT [facility] * Q2: How many drinks containing alcohol do you have on a typical day when you are drinking? Answer Date of Assessment Author Patient declined 03/18/2024 7:56 AM CDT [facility] * Q3: How often do you have six or more drinks on one occasion? Answer Date of Assessment Author Patient declined 03/18/2024 7:56 AM CDT [facility] * Question Answer Date of Assessment Author Little interest or pleasure in doing things Not at all 03/18/2024 8:19 AM CDT Lilo Chavis CMA Feeling down, depressed, or hopeless Not at all 03/18/2024 8:19 AM CDT Lilo hCavis CMA * Over the past 2 weeks, how often have you been bothered by any of the following problems? Question Answer Date of Assessment Author Patient Health Questionnaire -2 Score 0 03/18/2024 8:19 AM CDT Lilo Chavis CMA documented as of this encounter Progress Notes * Lilo Chavis CMA - 03/18/2024 8:15 AM CDT Tressa Myers, 69 y.o., female is here for Knee Pain Medication Refills: Patient reports/denies need for medication refills. Orders Pended: no Requested Prescriptions No prescriptions requested or ordered in this encounter Home Medications Medication Sig Start Date End Date Taking? Authorizing Provider albuterol (Ventolin HFA) 108 (90 Base) MCG/ACT Aerosol Solution INHALE 2 PUFFS EVERY 4-6 HOURS NEEDED FOR SHORTNESS OF BREATH OR WHEEZING 06/28/23 Jovita Bermudez MD albuterol 108 (90 Base) MCG/ACT Aerosol Solution take 2 Puffs by inhalation every 4 hours as needed. Homero Pugh MD albuterol 108 (90 Base) MCG/ACT Aerosol Solution take 2 Puffs by inhalation every 4 hours as neededfor Wheezing or Cough. 05/04/22 Bhargavi Morel PAC Ascorbic Acid 500 MG Chewable Tablet Take 500 mg by mouth. Homero Pugh MD aspirin EC 81 MG Tablet Delayed Response Take 81 mg by mouth. Homero Pugh MD betamethasone valerate (VALISONE) 0.1 % Ointment APPLY TWICE DAILY TO AREA ON LEGS 01/07/24 Bhargavi Morel PAC Blood Glucose Monitoring Suppl Device glDiagnosis: Diabetes type 2 Blood testing frequency: once a day 04/10/23 Bhargavi Morel PAC Cyanocobalamin (VITAMIN B-12 PO) Take by mouth. Patient not taking: Reported on 03/17/2024 Homero Pugh MD docusate sodium 100 MG Capsule Take by mouth daily as needed for Constipation - 1st line. 02/02/24 Homero Pugh MD empagliflozin (JARDIANCE) 25 MG Tablet Take 1 Tablet by mouth daily. 01/21/24 Bhargavi Morel PAC furosemide (LASIX) 40 MG Tablet Take 0.5 Tablets by mouth daily. 05/04/21 Jovita Bermudez MD gabapentin (NEURONTIN) 600 MG Tablet Take 1 Tablet by mouth daily. 03/17/24 Debra Roque APRN,SHEET METAL PRODUCTION WORKER glipiZIDE (GLUCOTROL) 5 MG Tablet TAKE 1/2 TABLET BY MOUTH DAILY, AFTER BREAKFAST 12/26/23 Bhargavi Morel PAC Glucose Blood Strip Diagnosis: Diabetes type 2 Blood testing frequency: once a day 02/23/21 Jovita Bermudez MD levothyroxine (SYNTHROID) 75 MCG Tablet Take 1 Tablet by mouth daily. 01/16/24 Bhargavi Morel PAC losartan (COZAAR) 25 MG Tablet 06/13/21 Homero Pugh MD magnesium oxide (MAG-OX) 400 MG Tablet Take 400 mg by mouth daily. Homero Pugh MD metFORMIN (GLUCOPHAGE) 1000 MG Tablet TAKE ONE TABLET BY MOUTH TWICE A DAY 12/13/23 Bhargavi Morel PAC metoprolol Succinate (TOPROL-XL) 100 MG TABLET SR 24 HR Take 2 Tablets by mouth daily. Patient taking differently: Take 150 mg by mouth daily. 05/04/21 Jovita Bermudez MD PARoxetine (PAXIL) 40 MG Tablet TAKE ONE TABLET BY MOUTH EVERY DAY 01/24/24 Bhargavi Morel PAC simvastatin (ZOCOR) 40 MG Tablet 09/23/22 ProviderHomero MD SITagliptin (Januvia) 100 MG Tablet Take 1 Tablet by mouth daily. 12/06/23 Bhargavi Morel PAC traMADol (ULTRAM) 50 MG Tablet TAKE ONE TABLET BY MOUTH EVERY 6 HOURS NEEDED FOR MODERATE OR SEVERE PAIN 03/17/24 Sulema Page APRN, SHEET METAL PRODUCTION WORKER VITAMIN D PO Take by mouth daily. Provider, MD Homero warfarin (COUMADIN) 2 MG Tablet Take 1.5 Tablets by mouth. 11/30/20 Jovita Bermudez MD There are no discontinued medications. I have reviewed the home medication list with the patient and have reconciled discrepancies. The list is accurate to the best of my knowledge. Smoking Status: Social History Tobacco Use Smoking status: Former Current packs/day: 2.00 Average packs/day: 2.0 packs/day for 35.0 years (70.0 ttl pk-yrs) Types: Cigarettes Smokeless tobacco: Never Substance Use [...] Zoster Immunization (1 of 2) Never done SARS-COV-2 Immunization ( season) 2023 Orders Pended: no The following BPA's have been addressed with the patient today: Depression and Advanced Care Planning BANG * Lilo Chavis CMA - 03/18/2024 8:15 AM CDT Tressa screened for Social Determinants of Health and patient declined to answer the questions. * Cole Garsia APRN, GAIL - 03/18/2024 8:15 AM CDT Subjective: Subjective Patient is a 69 year old female who presents for right knee pain. She reports the pain began 5 days ago. Denies precipitating factors. She describes the pain as aching, that gradually worsens throughout the day. Alleviating factors include Tylenol or tramadol. No relief with topical creams. Heat aggravates pain. Reports right knee pain as 7/10 during visit. She states she saw ortho one year ago for the same symptoms. Patient says x-rays were done by ortho at that time, but she was unsure of results. She reports receiving one steroid injection, with some relief. Patient has history of atrial fibrillation, atrial thrombus, and chronic warfarin use. Knee Pain Pertinent negatives include no numbness. Review of Systems Constitutional: Negative for chills, fatigue and fever. HENT: Negative for congestion, ear discharge, ear pain, postnasal drip, sinus pressure, sinus pain,sore throat and trouble swallowing. Eyes: Negative for photophobia, pain and discharge. Respiratory: Positive for shortness of breath. Negative for cough, chest tightness and wheezing. Cardiovascular: Negative for chest pain and palpitations. Gastrointestinal: Negative for abdominal pain, constipation, diarrhea, nausea and vomiting. Genitourinary: Negative for dysuria, flank pain, frequency, hematuria and urgency. Musculoskeletal: Positive for arthralgias and joint swelling (right knee). Negative for back pain and myalgias. Skin: Negative for rash and wound. Neurological: Negative for dizziness, seizures, syncope, numbness and headaches. Psychiatric/Behavioral: Negative for suicidal ideas. Allergies Allergies Allergen Reactions Cefazolin Rash and Shortness of Breath Lisinopril Other (see Comments) Medications Current Outpatient Medications: albuterol (Ventolin HFA) 108 (90 Base) MCG/ACT Aerosol Solution, INHALE 2 PUFFS EVERY 4-6 HOURS NEEDED FOR SHORTNESS OF BREATH OR WHEEZING, Disp: 18 g, Rfl: 2 albuterol 108 (90 Base) MCG/ACT Aerosol Solution, take 2 Puffs by inhalation every 4 hours as needed., Disp: , Rfl: albuterol 108 (90 Base) MCG/ACT Aerosol Solution, take 2 Puffs by inhalation every 4 hours as needed for Wheezing or Cough., Disp: 8 g, Rfl: 0 Ascorbic Acid 500 MG Chewable Tablet, Take 500 mg by mouth., Disp: , Rfl: aspirin EC 81 MG Tablet Delayed Response, Take 81 mg by mouth., Disp: , Rfl: betamethasone valerate (VALISONE) 0.1 % Ointment, APPLY TWICE DAILY TO AREA ON LEGS, Disp: 45 g, Rfl: 3 Blood Glucose Monitoring Suppl Device, glDiagnosis: Diabetes type 2 Blood testing frequency: once aday, Disp: 1 Each, Rfl: 0 docusate sodium 100 MG Capsule, Take by mouth daily as needed for Constipation - 1st line., Disp: ,Rfl: empagliflozin (JARDIANCE) 25 MG Tablet, Take 1 Tablet by mouth daily., Disp: 90 Tablet, Rfl: 3 furosemide (LASIX) 40 MG Tablet, Take 0.5 Tablets by mouth daily., Disp: 90 Tablet, Rfl: 1 gabapentin (NEURONTIN) 600 MG Tablet, Take 1 Tablet by mouth daily., Disp: 30 Tablet, Rfl: 0 glipiZIDE (GLUCOTROL) 5 MG Tablet, TAKE 1/2 TABLET BY MOUTH DAILY, AFTER BREAKFAST, Disp: 90 Tablet, Rfl: 1 Glucose Blood Strip, Diagnosis: Diabetes type 2 Blood testing frequency: once a day, Disp: 100 Strip, Rfl: 3 levothyroxine (SYNTHROID) 75 MCG Tablet, Take 1 Tablet by mouth daily., Disp: 90 Tablet, Rfl: 1 losartan (COZAAR) 25 MG Tablet, , Disp: , Rfl: magnesium oxide (MAG-OX) 400 MG Tablet, Take 400 mg by mouth daily., Disp: , Rfl: metFORMIN (GLUCOPHAGE) 1000 MG Tablet, TAKE ONE TABLET BY MOUTH TWICE A DAY, Disp: 180 Tablet, Rfl:1 metoprolol Succinate (TOPROL-XL) 100 MG TABLET SR 24 HR, Take 2 Tablets by mouth daily. (Patient taking differently: Take 150 mg by mouth daily.), Disp: 135 Tablet, Rfl: 1 PARoxetine (PAXIL) 40 MG Tablet, TAKE ONE TABLET BY MOUTH EVERY DAY, Disp: 90 Tablet, Rfl: 1 simvastatin (ZOCOR) 40 MG Tablet, , Disp: , Rfl: SITagliptin (Januvia) 100 MG Tablet, Take 1 Tablet by mouth daily., Disp: 90 Tablet, Rfl: 1 traMADol (ULTRAM) 50 MG Tablet, TAKE ONE TABLET BY MOUTH EVERY 6 HOURS NEEDED FOR MODERATE OR SEVERE PAIN, Disp: 28 Tablet, Rfl: 0 VITAMIN D PO, Take by mouth daily., Disp: , Rfl: warfarin (COUMADIN) 2 MG Tablet, Take 1.5 Tablets by mouth., Disp: 90 Tablet, Rfl: Past Medical History Past Medical History Positives Diagnosis Date Atrial fibrillation (HCC) Congestive heart failure (CHF) (HCC) Diabetes (HCC) Hypertension Thyroid activity decreased Past Surgical History Past Surgical History: Procedure Laterality Date HC INJ CARDIAC CATH VENOUS BYPASS GRAFT,1+ TUBAL LIGATION Family History Family History Problem Relation Age of Onset Congestive Heart Failure Mother Hypertension Mother Cancer Father Social History Social History Tobacco Use Smoking status: Former Current packs/day: 2.00 Average packs/day: 2.0 packs/day for 35.0 years (70.0 ttl pk-yrs) Types: Cigarettes Smokeless tobacco: Never Vaping Use Vaping status: Never Used Substance Use Topics Alcohol use: Not Currently Drug use: Yes Types: Marijuana Comment: a few times per week Objective: Objective Physical Exam Vitals and nursing note reviewed. Constitutional: General: She is not in acute distress. Appearance: She is well-developed. She is not diaphoretic. HENT: Head: Normocephalic and atraumatic. Right Ear: External ear normal. Left Ear: External ear normal. Nose: Nose normal. Eyes: General: Right eye: No discharge. Left eye: No discharge. Conjunctiva/sclera: Conjunctivae normal. Pupils: Pupils are equal, round, and reactive to light. Neck: Trachea: No tracheal deviation. Cardiovascular: Rate and Rhythm: Normal rate and regular rhythm. Heart sounds: Murmur heard. No friction rub. No gallop. Pulmonary: Effort: Pulmonary effort is normal. No respiratory distress. Breath sounds: Normal breath sounds. Abdominal: General: Bowel sounds are normal. Palpations: Abdomen is soft. Tenderness: There is no abdominal tenderness. Musculoskeletal: General: Swelling and tenderness present. No deformity. Cervical back: Normal range of motion and neck supple. Right lower leg: Edema present. Lymphadenopathy: Cervical: No cervical adenopathy. Skin: General: Skin is warm and dry. Coloration: Skin is not pale. Findings: No rash. Neurological: Mental Status: She is alert and oriented to person, place, and time. Psychiatric: Behavior: Behavior normal. Thought Content: Thought content normal. Judgment: Judgment normal. Vitals: 03/18/24 0820 03/18/24 0847 BP: 110/72 Pulse: (!) 118 67 Resp: 16 Temp: 97.8 ??F (36.6 ??C) TempSrc: Temporal SpO2: (!) 88% 90% Weight: 226 lb (102.5 kg) Height: 5' 1 (1.549 m) Assessment and Plan Assessment & Plan See Diagnoses, Orders, Follow-up, and Instructions 1. Right leg swelling - PROTIME (PT) (PROTHROMBIN TIME); Future - XR KNEE 3 VIEWS RIGHT; Future - US RIGHT LOWER EXTREMITY VENOUS / REFLUX MAPPING; Future 2. Low oxygen saturation - CMP (COMPREHENSIVE METABOLIC PANEL); Future - COMPLETE BLOOD COUNT (CBC) WITH DIFF; Future - N-TERMINAL- PRO B TYPE NATRIURETIC PEPTIDE; Future - XR CHEST 2 VIEWS; Future Right leg swelling. Ordered labs, XR knee, and US RLE. Patient unable to do these today. She is agreeable to have them completed tomorrow. Low oxygen saturation. Patient arrived with SpO2 of 88%. Improved to 90% after resting. XR chest ordered for patient to complete tomorrow with other testing. Instructed patient to notify office if symptoms worsen before then. I discussed all new medications and potential side effects or risks associated with them. Patient is to contact our office with any concerns. Patient instructions and educational materials were given to the patient. Patient (or patient medical billing representative) demonstrates verbal understanding of instructions given. Patient should follow up with their PCP for general health maintenance needs. Patient should contact our office if their problems persist or call 911/go the to ER if issues become more persistent. If any referrals have been made, patient should contact our office with in 3-5 days if they have not heard anything from our referral team or the referring physician. Documentation for this visit on 03/18/24 was completed using a template. I have seen and examined the patient. Everything documented was personally performed at this visit with the necessary additions, deletions and changes made as appropriate. Note: Portions of this chart may have been completed with voice recognition software and may contain slight errors unrecognizable by the users. This would in no way affect the patient's care and is meant to improve length and quality of medical decision making and history taking. documented in this encounter Plan of Treatment Upcoming Encounters Date Type Department Care Team (Late st Contact Info) Description 10/29/2024 9:30 AM MOLDED PARTS INSPECTOR [facility] [place] [address] Bhargavi Morel, [facility] [address] [place] [address] documented as of this encounter Results * XR KNEE 3 VIEWS RIGHT (03/26/2024 8:39 AM CDT) Anatomical Region Laterality Modality LOWER EXTREMITY, knee Right Digital Ra diography 03/26/2024 9:35 PM CDT Impressions 03/26/2024 9:38 PM CDT IMPRESSION: No acute fracture. 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 Tyqe-ne-dlxypukm joint effusion. Narrative 03/26/2024 9:38 PM CDT [...] of the patellofemoral joint. ??There is a dugj-yk-tpqweyvd joint effusion. ??Atherosclerotic change. THIS IS AN ELECTRONICALLY VERIFIED FINAL REPORT 03/26/2024 9:35 PM - Electronically signed by ??Naga CRAFT: VENANCIO D: ??03/26/2024 9:35 PM T: ??03/26/2024 9:35 PM Report ID: [id number] Reading Location: ??[id number] Procedure Note Naga Joyner MD - 03/26/2024 [...] of the patellofemoral joint. There is a wauk-jo-pgrpsmft joint effusion. Atherosclerotic change. THIS IS AN ELECTRONICALLY VERIFIED FINAL REPORT 03/26/2024 9:35 PM - Electronically signed by Naga Joyner M.D. MJ: VENANCIO Report ID: [id number] Reading Location: [id number] IMPRESSION: No acute fracture. 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 Bxrm-xf-hzdxwdyi joint effusion. Cole Garsia APRN, CNP IMG DIAGNOSTIC O RDERABLES Final Result * XR CHEST 2 VIEWS (03/26/2024 8:39 [...] PM T: ??03/26/2024 9:37 PM Report ID: [id number] Reading Location: ??[id number] Procedure Note Naga Joyner MD - 03/26/2024 [...] Naga Joyner M.D. MJ: VENANCIO Report ID: [id number] Reading Location: [id number] IMPRESSION: Mild prominence of central vascularity. Blunting left costophrenic angle favors more chronic scarring as this is unchanged dating back to 2014. us Cole Garsia APRN, GAIL IMG DIAGNOSTIC O RDERABLES Final Result * (ABNORMAL) PROTIME (PT) (PROTHROMBIN TIME) (03/26/2024 7:50 AM CDT) PROTIME-PATIENT 21.8(H) 11.6 - 14.8 sec 03/26/2024 9:10 AM CDT [facility] INR 1.9(H) 0.9 - 1.2 03/26/2024 9:10 AM CDT [facility] Comment: Therapeutic Ranges INR = 2.0-3.0: Venous thromb, atrial fib, pul embolism, tissue heart valve, ami. INR = 2.5-3.5: Mechanical heart valve Critical value for INR is >/= 4.5 Blood Venipuncture / Unknown 03/26/2024 7:50 AM CDT 03/26/2024 8:48 AM CDT us Cole Garsia METEOROLOGICAL AIDE, SHEET METAL PRODUCTION WORKER HEMATOLOGY ORDER MONA Final Result [facility] [address] [place] [address] * (ABNORMAL) CMP (COMPREHENSIVE METABOLIC PANEL) (03/26/2024 7:50 AM CDT) SODIUM 138 136 - 145 mmol/L 03/26/2024 9:26 AM CDT [facility] POTASSIUM 4.6 3.5 - 5.1 mmol/L 03/26/2024 9:26 AM CDT [facility] CHLORIDE 101 98 - 107 mmol/L 03/26/2024 9:26 AM CDT [facility] CO2, VENOUS 27 22 - 30 mmol/L 03/26/2024 9:26 AM CDT [facility] ANION GAP 14.6 <18.0 mmol/L 03/26/2024 9:26 AM CDT [facility] GLUCOSE 190(H) 70 - 99 mg/dL 03/26/2024 9:26 AM CDT [facility] BUN 24(H) 10 - 20 mg/dL 03/26/2024 9:26 AM CDT [facility] CREATININE, BLOOD 0.85 0.60 - 1.00 mg/dL 03/26/2024 9:26 AM CDT [facility] BUN/CREATININE RATIO 28(H) 12 - 20 ratio 03/26/2024 9:26 AM T [facility] TOTAL PROTEIN 7.7 6.3 - 8.2 g/dL 03/26/2024 9:26 AM [facility] ALBUMIN 3.7 3.5 - 5.0 g/dL 03/26/2024 9:26 AM [facility] A/G RATIO 0.9(L) 1.0 - 2.2 03/26/2024 9:26 AM [facility] CALCIUM 9.5 8.7 - 10.5 mg/dL 03/26/2024 9:26 AM [facility] T BILI 0.9 0.2 - 1.2 mg/dL 03/26/2024 9:26 AM [facility] SGOT (AST) 21 5 - 34 U/L 03/26/2024 9:26 AM [facility] SGPT (ALT) 15 0 - 55 U/L 03/26/2024 9:26 AM [facility] ALKALINE PHOSPHATASE 86 40 - 150 U/L 03/26/2024 9:26 AM [facility] IS THE PATIENT REQUIRED TO BE FASTING? No 03/26/2024 9:26 AM [facility] GFR, ESTIMATED >60 >=60 03/26/2024 9:26 AM [facility] Comment: Creatinine Clearance is the preferred criteria for selecting drug dose adjustments in renally impaired patients. ??The GFR is provided as additional pertinent clinical information. GFR is reported in mL/min/1.73 sq m. Calculation based on the Chronic Kidney Disease Epidemiology Collaboration (CKD- EPI) equation refit without adjustment for race. GFR, EST. >60 >=60 024 9:26 AM [facility] GFR, EST. NONAFRICAN >60 >=60 03/26/2024 9:26 AM [facility] Blood Venipuncture / Unknown 03/26/2024 7:50 AM CDT 03/26/2024 8:48 AM CDT us Cole Garsia METEOROLOGICAL AIDE, SHEET METAL PRODUCTION WORKER CHEMISTRY ORDERA BLES Final Result [facility] [place] [address] documented in this encounter Visit Diagnoses Diagnosis Right leg swelling- Primary Low oxygen saturation Abnormal arterial blood gases Low oxygen saturation Abnormal arterial blood gases Right leg swelling documented in this encounter Additional Health Concerns Assessment Noted Time PHQ-9 Depression Total Score: 0 10/17/19 12:52 PM MOLDED PARTS INSPECTOR documented as of this encounter Care Teams Plate [employer] Hand Relationship Specialty Start Date End Date Bhargavi Morel PAC [address] [place] [address] PCP - General Physician Resistance Welding Machine Operator 07/22/23 Flaquito Hurd MD [address] [place] [address] Consulting Physician Pulmonary Disease 11/09/22 Wes Petty MD [address] [address] Consulting Physician Urology 01/18/24 documented as of this encounter
--- OUTSIDE RECORDS SUMMARY | 2024-08-30 18:48 | XMS_ITS | Encounter Summary ---
Author Organization [facility] Address [address] [place] [address] Phone Care Team Providers Care Supervisor [employer] Name Role Phone Bhargavi Morel Primary Care Provider + Flaquito Hurd MD Unavailable Reason for Visit * Reason Comments New Patient Frequent UTI's * Consult, Test & Initiate Treatment (Routine) - Closed Specialty Diagnoses / Procedures Referred By Contjuani t Referred To Contact Urology Diagnoses Frequent UTI Procedures OFFICE/OP NEW LVL 3 LOW MDM/30-44 MIN OFFICE/OP EST LVL 3 LOW MDM/20-29 MIN Bhargavi Morel PAC [address] [place] [address] Phone: tel: fax: [facility] [address] [place] [address] Phone: tel: fax: Referral ID Status Reason Start Date Expiration Date Visits Re quested Visits Authorized [id number] Closed 09/07/2023 1 11 Encounter Details Date Type Department Care Team (Late st Contact Info) Description 01/16/2024 9:00 AM CDT Office Visit [facility] [address] [place] [id number] Bhargavi Morel PAC [address] [place] [address] Wes Petty MD [address], [facility] [address] [place] [address] Frequent UTI (Primary Dx) Discharge Disposition: Discharged to home or Selfcare Social History Tobacco Use Types Packs/Day Years Used Date Smoking Tobacco: Former Cigarettes 2 35 Smokeless Tobacco: Never Alcohol Use Standard Drinks/Week Comments Not Currently 0 (1 standard drink = 0.6 oz pur e alcohol) [facility] Utilities Answer Date Recorded In [...] often do you attend chur ch or mosque services? Never 01/16/2024 Do you belong to any clubs o r organizations such as adventist groups, unions, fraternal or athletic groups, or [...] Total Score - Questions 1-9 0 09/28 [employer] - Occupational Stress [...] a nursing home (including now)? No 01/16/2024 Education Answer [...] Sign Reading Time Taken Comments Blood Pressure 126/86 01/16/2024 8:58 AM CDT Pulse 125 01/16/2024 8:58 AM CDT Temperature - - Respiratory Rate 20 01/16/2024 8:58 AM CDT Oxygen Saturation 89% 01/16/2024 8:58 AM CDT Inhaled Oxygen Concentration - - Weight 102.1 kg (225 lb) 01/16/2024 8:58 AM CDT Height 165.1 cm (5' 5 ) 01/16/2024 8:58 AM CDT Body Mass Index 37.44 01/16/2024 8:58 AM CDT documented in this encounter Functional [...] as of this encounter Progress Notes * Wes Petty MD - 01/16/2024 9:00 AM CDT UROLOGY [facility] [address] [facility], [address] [place] [address] PHONE: FAX: Assessment & Plan Urinary urgency Plan: Urine culture we will wait with treatment for results Subjective: 01/16/2024 HPI: HPI: Tressa Myers presents [...] symptoms to present to the emergency department.. Allergies Allergen Reactions Cefazolin Rash and Shortness [...] frequency: once a day 1 Each 0 Cyanocobalamin (VITAMIN B-12 PO) Take by mouth. furosemide (LASIX) 40 MG Tablet Take 0.5 Tablets by mouth daily. 90 Tablet 1 gabapentin (NEURONTIN) 600 MG Tablet TAKE ONE TABLET BY MOUTH EVERY DAY 90 Tablet 1 glipiZIDE (GLUCOTROL) 5 MG Tablet TAKE 1/2 TABLET BY MOUTH DAILY, AFTER BREAKFAST 90 Tablet 1 Glucose Blood Strip Diagnosis: Diabetes type 2 Blood testing frequency: once a day 100 Strip 3 levothyroxine (SYNTHROID) 75 MCG Tablet Take 1 Tablet by mouth daily. 90 Tablet 1 losartan (COZAAR) 25 MG Tablet metFORMIN (GLUCOPHAGE) 1000 MG Tablet TAKE ONE TABLET BY MOUTH TWICE A DAY 180 Tablet 1 metoprolol Succinate (TOPROL-XL) 100 MG TABLET SR 24 HR Take 2 Tablets by mouth daily. (Patient taking differently: Take 150 mg by mouth daily.) 135 Tablet 1 PARoxetine (PAXIL) 40 MG Tablet TAKE ONE TABLET BY MOUTH EVERY DAY 90 Tablet 1 semaglutide,0.25 or 0.5MG/DOS, (Ozempic, 0.25 or 0.5 MG/DOSE,) 2 MG/3ML Solution Pen-injector 0.5 mg by Subcutaneous route once a week. 3 mL 0 simvastatin (ZOCOR) 40 MG Tablet SITagliptin (Januvia) 100 MG Tablet Take 1 Tablet by mouth daily. 90 Tablet 1 traMADol (ULTRAM) 50 MG Tablet TAKE ONE TABLET BY MOUTH EVERY 6 HOURS NEEDED FOR MODERATE OR SEVERE PAIN 28 Tablet 0 VITAMIN D PO Take by mouth daily. warfarin (COUMADIN) 2 MG Tablet Take 1.5 Tablets by mouth. 90 Tablet No current facility-administered medications on [...] on file Tobacco Use Smoking status: Former Packs/day: 2.00 Years: 35.00 Additional pack years: 0.00 Total pack years: 70.00 Types: Cigarettes Smokeless tobacco: Never Substance and Sexual Activity Alcohol use: Not Currently Drug use: Yes Types: Marijuana Comment: a few times per week Sexual activity: Not Currently Other Topics Concern Not on file Social History Narrative Not on file Social Determinants of Health Financial Resource Needs: Medium Risk (01/16/2024) Overall Financial Resource Strain (CARDIA) Difficulty of Paying Living Expenses: Somewhat hard Food Insecurity Needs: No Food Insecurity (01/16/2024) Hunger Vital Sign Worried About Running Out of Food in the Last Year: Never true Ran Out of Food in the Last Year: Never true Transportation Needs: No Transportation Needs (01/16/2024) PRAPARE - Transportation Lack of Transportation (Medical): No Lack of Transportation (Non-Medical): No Physical Activity: Sufficiently Active (01/16/2024) Exercise Vital Sign Days of Exercise per Week: 4 days Minutes of Exercise per Session: 60 min Stress: No Stress Concern Present (01/16/2024) [employer] - Occupational Stress Questionnaire Feeling of Stress : Only a little Social Integration: Socially Isolated (01/16/2024) Social Connection and Isolation Panel [NHANES] Frequency of Communication with Friends and Family: More than three times a week Frequency of Social Gatherings with Friends and Family: Twice a week Attends Protestant Services: Never Active Member of Clubs or Organizations: No Attends Club or Organization Meetings: Never Marital Status: Intimate Partner Violence: Not At Risk (01/16/2024) Humiliation, Afraid, Rape, and Kick questionnaire Fear of Current or Ex-Partner: No Emotionally Abused: No Physically Abused: No Sexually Abused: No Housing Stability: Low Risk (01/16/2024) Housing Stability Vital Sign Unable to Pay for Housing in the Last Year: No Number of Places Lived in the Last Year: 1 Unstable Housing in the Last Year: No ROS: Review of systems was negative, except as documented in HPI. Objective: VITALS: BP 126/86 (BP Location: Left Arm, BP Position: Sitting) Pulse (!) 125 Resp 20 Ht 5' 5 (1.651 m) Wt 225 lb (102.1 kg) SpO2 (!) 89% BMI 37.44 kg/m?? PHYSICAL EXAM: GENERAL: Normal appearance. Patient [...] done Lab Results Component Value Date WBC 8.11 01/16/2024 HEMOGLOBIN 12.3 01/16/2024 HEMATOCRIT 39.0 01/16/2024 PLATELETCNT 260 01/16/2024 MCV 97.3 (H) 01/16/2024 Lab Results Component Value Date SODIUM 137 01/16/2024 POTASSIUM 4.1 01/16/2024 CHLORIDE 104 01/16/2024 CO2VEN 24 01/16/2024 ANIONGAP 13.1 01/16/2024 GLUCOSE 99 01/16/2024 BUN 18 01/16/2024 CREATININE 0.78 01/16/2024 BCRATIO8 23 (H) 01/16/2024 TOTALPROTEIN 7.6 01/16/2024 ALBUMIN 3.7 01/16/2024 CALCIUM 8.9 01/16/2024 TBIL 0.5 01/16/2024 SGOTAST 22 01/16/2024 SGPTALT 17 01/16/2024 ALKALINEPHO 85 01/16/2024 GFRNA >60 01/16/2024 GFRA >60 01/16/2024 Results for orders placed or performed in [...] BACTERIA, URINE Packed (A) Negative /hpf Final CULTURE, URINE Specimen: Urine Clean Catch Result Value Ref Range Status CULTURE RESULTS Greater than 100,000 CFU/ML Klebsiella oxytoca Final CULTURE RESULTS ALSO MIXED GROWTH OF DISTAL URETHRA CONTAMINANTS. Final Susceptibility Klebsiella oxytoca - [facility] Ampicillin/sulbactam Resistant mcg/ml Cefepime Susceptible mcg/ml Ceftriaxone Susceptible mcg/ml Gentamicin Susceptible mcg/ml Levofloxacin Susceptible mcg/ml Meropenem Susceptible mcg/ml Nitrofurantoin Intermediate mcg/ml Piperacillin/Tazobactam Susceptible mcg/ml Tobramycin Intermediate mcg/ml Trimeth/Sulfamethoxazole Susceptible mcg/ml No results found for: TESTOSTTTL No results found for this or any previous visit from the past 365 days. No results found for this or any previous visit from the past 365 days. No results found for this or any previous visit from the past 365 days. Tressa Caba was seen today for new patient. Diagnoses and all orders for this visit: Frequent UTI - DEBRA,POST-VOID RES,US,NON-IMAGING - POCT UA AUTOMATED W/O MICRO - UROLOGY REFERRAL - CULTURE, URINE; Future - CULTURE, URINE By: Wes Petty MD, 01/16/2024, 1:54 PM CDT Primary Care Physician: Bhargavi Morel, PAC documented in this encounter Procedure Notes * Brittney Angelo RMA - 01/16/2024 9:00 AM CDTAssociated Order(s): DEBRA,POST-VOID RES,US,NON-IMAGING POCT Bladder Scan collected per standing order of Dr. 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 Office Visit [facility] [address] [place] [address] Bhargavi Morel, PAC [address] [place] [address] documented as of this encounter Procedures Procedure Name Priority Date/Time Associated Diagnosis Comments CULTURE, URINE Routine 01/16/2024 9:18 AM CDT Frequent UTI DEBRA,POST-VOID RES,US,NON-IMAGING Routine 01/16/2024 9:00 AM CDT Frequent UTI POCT UA AUTOMATED W/O MICRO Routine 01/16/2024 8:58 AM CDT Frequent UTI documented in this encounter Results * CULTURE, URINE (01/16/2024 9:18 AM CDT) [facility] CULTURE RESULTS MIXED GROWTH OF 3 OR MORE ORGANISMS, PROBABLE COLLECTION CONTAMINATION, SUGGEST REPEAT URINE CULTURE. 01/17/2024 3:19 PM CDT [facility] Culture URINE SPECIMEN COLLECTION, CLEAN CATCH / Unknown Non-Phlebotomy Collection / Unknown 01/16/2024 9:18 AM CDT 01/16/2024 9:18 AM CDT Wes Petty MD MICROBIOLOGY - GENERAL ORDERABLE S Final Result Performing Organization Address City/State/[facility] Co de Phone Number [facility] [address] [place] [address], [place] * DEBRA,POST-VOID RES,US,NON-IMAGING (01/16/2024 9:00 AM CDT) Narrative Brittney Angelo RMA - 01/16/2024 9:00 AM CDT Brittney Angelo RMA ? 01/16/2024 ??2:04 PM POCT Bladder Scan collected per standing order of Dr. Petty on 01/16/2024 PVR= 70 ML us Wes Petty MD MD - SURGERY Final Result * (ABNORMAL) POCT UA AUTOMATED W/O MICRO (01/16/2024 8:58 AM CDT) [facility] POC UA SPECIFIC GRAVITY 1.015 URINE PH 6.5 5.0 - 9.0 POC URINE LEUKOCYTES 500 /uL(A) Negative Flory/uL POC URINE NITRITE Positive(A) Negative POC URINE PROTEIN 100 mg/dL(A) Negative mg/dL POC URINE GLUCOSE Negative Negative, Norm mg/dL POC URINE KETONE Negative Negative mg/dL POC URINE UROBILINOGEN 1 E.U./dL (mg/dL) Norm, 0.2 E.U./dL (mg/dL), 1 E.U./dL (mg/dL) POC URINE BILIRUBIN Negative Negative mg/dL POC URINE BLOOD INSTRUMENT 50 Minerva/uL(A) Negative Minerva/uL POC URINE COLOR Yellow POC URINE CLARITY Slightly Cloudy Urine 01/16/2024 8:58 AM CDT us Wes Petty MD POINT OF CARE TESTING (MANUAL) F inal Result documented in this encounter Visit Diagnoses Diagnosis Frequent UTI- Primary Urinary tract infection, site not specified documented in this encounter Additional Health Concerns Assessment Noted Time PHQ-9 Depression Total Score: 0 10/17/19 24 12:52 PM FIELD IRONWORKER documented as of this encounter Care Teams Supervisor [employer] Relationship Specialty Start Date End Date Bhargavi Morel PAC [address] [place] [address] PCP - General Physician Second Cutter 07/22/23 Flaquito Hurd MD [address] [place] [address] Consulting Physician Pulmonary Disease 11/09/22 documented as of this encounter
--- OUTSIDE RECORDS SUMMARY | 2024-08-30 18:48 | XMS_ITS | Encounter Summary ---
Author Organization [facility] Address [address] [place] [address] Phone Care Team Providers Care Improvement Specialist Name Role Phone Jovita Bermudez MD Primary Care Provider [phone] Flaquito Hurd MD Unavailable Reason for Referral * Consult, Test & Initiate Treatment (Routine) - Canceled Specialty Diagnoses / Procedures Referred By Shayan dhillon Referred To Contact Diagnoses Frequent UTI Procedures OFFICE/OP NEW LVL 3 LOW MDM/30-44 MIN OFFICE/OP EST LVL 3 LOW MDM/20-29 MIN Bhargavi Morel, PAC [address] [place] [address] Phone: tel: fax: Referral ID Status Reason Start Date Expiration Date V isits Requested Visits Authorized [id number] Canceled 07/11/2023 1 1 Scheduling Instructions Tressa is being referred to urology or other specialist in patient's insurance network for urinary frequency frequent UTI Would like to see Dr. Theron Milan if covered [phone]. See below for Tressa's current medications, allergies and problem list. CURRENT MEDS: Current Outpatient Medications: albuterol (Ventolin HFA) 108 (90 Base) MCG/ACT Aerosol Solution, INHALE 2 PUFFS EVERY 4-6 HOURS NEEDED FOR SHORTNESS OF BREATH OR WHEEZING, Disp: 18 g, Rfl: 2 albuterol 108 (90 Base) MCG/ACT Aerosol Solution, take 2 Puffs by inhalation every 4 hours as needed for Wheezing or Cough., Disp: 8 g, Rfl: 0 albuterol 108 (90 Base) MCG/ACT Aerosol Solution, take 2 Puffs by inhalation every 4 hours as needed. (Patient not taking: Reported on 07/11/2023), Disp: , Rfl: Ascorbic Acid 500 MG Chewable Tablet, Take 500 mg by mouth., Disp: , Rfl: aspirin EC 81 MG Tablet Delayed Response, Take 81 mg by mouth., Disp: , Rfl: Blood Glucose Monitoring Suppl Device, glDiagnosis: Diabetes type 2 Blood testing frequency: once a day, Disp: 1 Each, Rfl: 0 clobetasol (TEMOVATE) 0.05 % Gel, APPLY TO NEW LESIONS ON ARMS COVER WITH TAPE THEN WASH OFF IN THE MORNING. REPEAT PROCESS UNTIL LESIONS ARE FLAT THEN USE TWICE A WEEK MA (Patient not taking: Reported on 11/09/2022), Disp: , Rfl: Cyanocobalamin (VITAMIN B-12 PO), Take by mouth., Disp: , Rfl: dilTIAZem (CARDIZEM CD) 120 MG CAPSULE SR 24 HR, TAKE ONE CAPSULE BY MOUTH EVERY DAY (Patient not taking: Reported on 11/09/2022), Disp: 90 Capsule, Rfl: 2 furosemide (LASIX) 40 MG Tablet, Take 0.5 Tablets by mouth daily., Disp: 90 Tablet, Rfl: 1 gabapentin (NEURONTIN) 600 MG Tablet, TAKE ONE TABLET BY MOUTH EVERY DAY, Disp: 90 Tablet, Rfl: 1 Glucose Blood Strip, Diagnosis: Diabetes type 2 Blood testing frequency: once a day, Disp: 100 Strip, Rfl: 3 Januvia 100 MG Tablet, TAKE ONE TABLET BY MOUTH EVERY DAY, Disp: 90 Tablet, Rfl: 1 levothyroxine (SYNTHROID) 75 MCG Tablet, TAKE ONE TABLET BY MOUTH EVERY DAY, Disp: 90 Tablet, Rfl: 1 losartan (COZAAR) 25 MG Tablet, , Disp: , Rfl: metFORMIN (GLUCOPHAGE) 1000 MG Tablet, TAKE ONE TABLET BY MOUTH TWICE A DAY, Disp: 180 Tablet, Rfl: 1 metoprolol Succinate (TOPROL-XL) 100 MG TABLET SR 24 HR, Take 2 Tablets by mouth daily. (Patient taking differently: Take 150 mg by mouth daily.), Disp: 135 Tablet, Rfl: 1 PARoxetine (PAXIL) 40 MG Tablet, TAKE ONE TABLET BY MOUTH EVERY DAY, Disp: 90 Tablet, Rfl: 1 simvastatin (ZOCOR) 40 MG Tablet, , Disp: , Rfl: traMADol (ULTRAM) 50 MG Tablet, TAKE ONE TABLET BY MOUTH EVERY 6 HOURS NEEDED FOR MODERATE KS SEVERE PAIN, Disp: 28 Tablet, Rfl: 0 VITAMIN D PO, Take by mouth daily., Disp: , Rfl: warfarin (COUMADIN) 2 MG Tablet, Take 1.5 Tablets by mouth., Disp: 90 Tablet, Rfl: No current facility-administered medications for this visit. ALLERGIES: -- Cefazolin -- Rash and Shortness of Breath -- Lisinopril -- Other (see Comments) PROBLEM LIST: Patient Active Problem List: Atrial thrombus Permanent atrial fibrillation (HCC) Hx of CABG Daytime somnolence Anxiety Type 2 diabetes mellitus without complication, without long-term current use of insulin (HCC) Essential (primary) hypertension Dyslipidemia AMOR (obstructive sleep apnea) Restless legs syndrome (RLS) Acute pain of right knee Pain and swelling of right knee Acute pyelonephritis Sepsis (HCC) VE SETTER Reason for Visit * Reason Comments Follow-up 3 mo fu Encounter Details Date Type Department Care Team (Late st Contact Info) Description 07/11/2023 3:00 PM SLEEVE SETTER Office Visit [facility] [address] [place] [address] Bhargavi Morel PAC [address] [place] [address] Type 2 diabetes mellitus without complication, without long-term current use of insulin (HCC) (Primary Dx); Frequent UTI; Hypothyroidism, unspecified type; Elevated MCV; Vaginal itching; Encounter for hepatitis C screening test for low risk patient Discharge Disposition: Discharged to home or Selfcare Social History Tobacco Use Types Packs/Day Years Used Date Smoking Tobacco: Former Cigarettes 2 35 Smokeless Tobacco: Never Tobacco Cessation:Counseling Given: Yes Alcohol Use Standard Drinks/Week Comments Not Currently [...] AM CDT documented as of this encounter Last Filed Vital Signs Vital Sign Reading Time Taken Comments Blood Pressure 114/68 07/11/2023 3:02 PM SLEEVE SETTER Pulse 64 07/11/2023 3:02 PM SLEEVE SETTER Temperature 36.6 ??C (97.8 ??F) 07/11/2023 3:02 PM CS T Respiratory Rate - - Oxygen Saturation 92% 07/11/2023 3:02 PM SLEEVE SETTER Inhaled Oxygen Concentration - - Weight 98.4 kg (217 lb) 07/11/2023 3:02 PM SLEEVE SETTER Height 167.6 cm (5' 6 ) 07/11/2023 3:02 PM SLEEVE SETTER Body Mass Index 35.02 07/11/2023 3:02 PM SLEEVE SETTER documented in this encounter Functional Status * Question Answer Date of Assessment Author Little interest or pleasure in doing things Not at all 07/11/2023 3:06 PM SLEEVE SETTER Jayde Haas MA Feeling down, depressed, or hopeless Not at all 07/11/2023 3:06 PM SLEEVE SETTER Jayde Haas MA * Over the past 2 weeks, how often have you been bothered by any of the following problems? Question Answer Date of Assessment Author Patient Health Questionnaire -2 Score 0 07/11/2023 3:06 PM Jayde Moy MA documented as of this encounter Patient Instructions * Patient Instructions* Bhargavi Morel PAC - 07/11/2023 3:00 PM SLEEVE SETTER Labs today as ordered VE SETTER documented in this encounter Progress Notes * Jayde Haas, STEFANIA - 07/11/2023 3:00 PM CST Tressa Myers, 68 y.o., female is here for Follow-up (3 mo fu ) Medication Refills: Patient reports/denies need for [...] Take by mouth. Yes Homero Pugh MD dilTIAZem (CARDIZEM CD) 120 MG CAPSULE SR 24 HR TAKE ONE CAPSULE BY MOUTH EVERY DAY Patient not taking: Reported on 11/09/2022 06/20/22 Jovita Bermudez MD furosemide (LASIX) 40 MG Tablet Take 0.5 Tablets by mouth daily. 05/04/21 Yes Jovita Bermudez MD gabapentin (NEURONTIN) 600 MG Tablet TAKE ONE TABLET BY MOUTH EVERY DAY 05/14/23 Yes Flaquito Hurd MD Glucose Blood Strip Diagnosis: Diabetes type 2 Blood testing frequency: once a day 02/23/21 Yes Jovita Bermudez MD Januvia 100 MG Tablet TAKE ONE TABLET BY MOUTH EVERY DAY 02/13/23 Yes Jovita Bermudez MD Jardiance 25 MG Tablet TAKE ONE TABLET BY MOUTH EVERY DAY 06/28/23 Yes Jovita Bermudez MD levothyroxine (SYNTHROID) 75 MCG Tablet TAKE ONE TABLET BY MOUTH EVERY DAY 02/13/23 Yes Jovita Bermudez MD losartan (COZAAR) 25 MG Tablet 06/13/21 Yes ProviderHomero MD metFORMIN (GLUCOPHAGE) 1000 MG Tablet TAKE ONE TABLET BY MOUTH TWICE A DAY 06/15/23 Yes Jovita Bermudez MD metoprolol Succinate (TOPROL-XL) 100 MG TABLET SR 24 HR Take 2 Tablets by mouth daily. Patient taking differently: Take 150 mg by mouth daily. 05/04/21 Yes Jovita Bermudez MD PARoxetine (PAXIL) 40 MG Tablet TAKE ONE TABLET BY MOUTH EVERY DAY 03/22/23 Yes Jovita Bermudez MD simvastatin (ZOCOR) 40 MG Tablet 09/23/22 Yes Homero Pugh MD traMADol (ULTRAM) 50 MG Tablet TAKE ONE TABLET BY MOUTH EVERY 6 HOURS NEEDED FOR MODERATE KS SEVERE PAIN 06/14/23 Yes Jovita Bermudez MD VITAMIN D PO Take by mouth daily. [...] times per week Smoking Cessation Counseling Given: n/a Health Care Maintenance: Health Maintenance Due Topic Date Due ??? Diabetes: Eye Exam Never done ??? DEXA Bone Density Never done ??? Hepatitis C Virus (HCV) Screening Never done ??? Diabetes: Foot Exam Never done ??? Colorectal Cancer Screening Never done ??? Mammogram Never done ??? Zoster Immunization (1 of 2) Never done ??? Hepatitis B Immunization (1 of 3 - Risk 3-dose series) Never done ??? Influenza Immunization (1) 04/27/2023 Orders Pended: yes The following BPA's have been addressed with the patient today: Flu VE SETTER * Jayde Haas MA - 07/11/2023 3:00 PM CST Tressa is here for Flu immunizations per order of Bhargavi Morel PA-C dated 07/11/23. Administered in left deltoid . Vaccine Information Sheet(s) were given on 07/11/23. Verbal consent was obtained. Tressa tolerated the immunization well without incident. See Immunization activity for details. VE SETTER * Bhargavi Morel PAC - 07/11/2023 3:00 PM CST Subjective: Subjective Patient in the office today for follow up on chronic health conditions, has type 2 diabetes that has been fair control Recently more frequent urinary tract infections and vaginal irritation Has been on jardiance Unsure if this is causing issue Has atrial fibrillation so chronic sob, denies worsenings, no PND No chest pains Review of Systems Constitutional: Negative for chills and fever. HENT: Negative for congestion. Respiratory: Negative for cough and wheezing. Cardiovascular: Negative for chest pain and leg swelling. Gastrointestinal: Negative for abdominal pain. Genitourinary: Positive for frequency. Neurological: Negative for dizziness, weakness and light-headedness. Objective: Objective Physical Exam Vitals reviewed. Constitutional: Appearance: Normal appearance. She is not ill-appearing. HENT: Head: Normocephalic and atraumatic. Eyes: General: Right eye: No discharge. Left eye: No discharge. Extraocular Movements: Extraocular movements intact. Cardiovascular: Rate and Rhythm: Normal rate and regular rhythm. Pulmonary: Effort: Pulmonary effort is normal. No respiratory distress. Breath sounds: Normal breath sounds. No wheezing. Neurological: Mental Status: She is alert. Psychiatric: Mood and Affect: Mood normal. . Lab Results Component Value Date SODIUM 136 05/23/2023 POTASSIUM 5.0 05/23/2023 CHLORIDE 100 05/23/2023 CO2VEN 27 05/23/2023 ANIONGAP 14.0 05/23/2023 GLUCOSE 189 (H) 05/23/2023 BUN 20 05/23/2023 CREATININE 0.81 05/23/2023 BCRATIO8 25 (H) 05/23/2023 TOTALPROTEIN 8.3 (H) 05/23/2023 ALBUMIN 3.6 05/23/2023 CALCIUM 9.5 05/23/2023 TBIL 0.7 05/23/2023 SGOTAST 27 05/23/2023 SGPTALT 24 05/23/2023 ALKALINEPHO 92 05/23/2023 GFRNA >60 05/23/2023 GFRA >60 05/23/2023 GFRES >60 05/23/2023 . Lab Results Component Value Date WBC 8.06 05/23/2023 HEMOGLOBIN 16.6 (H) 05/23/2023 HEMATOCRIT 53.7 (H) 05/23/2023 PLATELETCNT 293 05/23/2023 MCV 101.9 (H) 05/23/2023 . Lab Results Component Value Date HGBA1C 8.5 (H) 05/23/2023 . Lab Results Component Value Date CHOLESTEROL 117 05/23/2023 TRIGLYCRIDES 103 05/23/2023 HDLCHOLESTE 36 (L) 05/23/2023 LDL 60 05/23/2023 . Lab Results Component Value Date TSH 2.171 05/23/2023 Assessment and Plan See Diagnoses, Orders, Follow-up, and Instructions .Diagnoses and all orders for this visit: Type 2 diabetes mellitus without complication, without long-term current use of insulin (HCC) - COMPLETE BLOOD COUNT (CBC) WITH DIFF; Future Frequent UTI - EXTERNAL UROLOGY REFERRAL; Future - URINALYSIS REFLEX IF INDICATED BY ABNORMAL RESULTS; Future Hypothyroidism, unspecified type Elevated MCV - COMPLETE BLOOD COUNT (CBC) WITH DIFF; Future - VITAMIN B12; Future - FOLIC ACID (FOLATE); Future Vaginal itching Encounter for hepatitis C screening test for low risk patient - HEPATITIS C ANTIBODY; Future Other orders - INFLUENZA QUADRIVALENT ADJUVANTED VACCINE IM - INFLUENZA IMMUNIZATION QUESTIONS - Cyanocobalamin (VITAMIN B-12 PO); Take by mouth. - fluconazole (Diflucan) 150 MG Tablet; Take 1 tablet orally at onset of symptoms can repeat in 3 days if symptoms persist - glipiZIDE (GLUCOTROL) 5 MG Tablet; Take 0.5 Tablets by mouth daily after breakfast. Thyroid in range continue current dose of medication levothyroxine Recheck urine and referral to urologist Recheck labs as elevated mcv Discussed jardiance suggest hold medication, start glipizide see if urinary symptoms and vaginal irritation improve Start diflucan, notify if no improvements in vaginal itching Notify if any problems with medication changes VE SETTER documented in this encounter Plan of Treatment Upcoming Encounters Date Type Department Care Team (Late st Contact Info) Description 10/29/2024 9:30 AM SLEEVE SETTER Office Visit [facility] [address] [place] [address] Bhargavi Morel PAC [address] [place] [address] Scheduled Referrals Name Type Priority Associated Diagnoses Orde r Schedule EXTERNAL UROLOGY REFERRAL Outpatient Referral Routine Frequent UTI Expected: 07/11/2023, Expires: 07/11/2024 documented as of this encounter Results * HEPATITIS C ANTIBODY (10/17/2023 1:34 PM SLEEVE SETTER) hepatitis C antibody 0.11 <1 S/CO [facility] ARCH [id number] B 10/17/2023 11:16 PM SLEEVE SETTER [facility] Comment: Signal/Cutoff ratio ??< 0.79 is Nondetected Signal/Cutoff ratio 0.80-0.99 is Grayzone Signal/Cutoff ratio > 0.99 is Detected Supplemental assays are recommended if signal/cutoff ratio is >/=1.00. ??Signal/cutoff ratio result >/= 5.00 is 97% predictive of positivity for recombinant immunoblot assay (RIBA) and will be reported to the [place] [facility] as required. Blood Venipuncture / Unknown 10/17/2023 1:34 PM SLEEVE SETTER 10/17/2023 1:34 PM SLEEVE SETTER Bhargavi Reedmarystephen PAC CHEMISTRY ORDERABLES Fin al Result Performing Organization Address City/[facility]/ZIP Co de Phone Number [facility] [address] [place] [address], [place] * FOLIC ACID (FOLATE) (10/17/2023 1:34 PM SLEEVE SETTER) FOLATE 14.4 7.0 - 31.4 ng/mL 10/17/2023 4:37 PM SLEEVE SETTER [facility] IS THE PATIENT REQUIRED TO BE FASTING? No 10/17/2023 4:37 PM SLEEVE SETTER [facility] Blood Venipuncture / Unknown 10/17/2023 1:34 PM SLEEVE SETTER 10/17/2023 1:34 PM SLEEVE SETTER Bhargavi Reedmarystephen PAC CHEMISTRY ORDERABLES Fin al Result Performing Organization Address [facility] Co de Phone Number [facility] [address] [place] [address] * (ABNORMAL) VITAMIN B12 (10/17/2023 1:34 PM SLEEVE SETTER) VITAMIN B12 1,271(H) 213 - 816 pg/mL 10/17/2023 4:37 PM SLEEVE SETTER [facility] Blood Venipuncture / Unknown 10/17/2023 1:34 PM SLEEVE SETTER 10/17/2023 1:34 PM SLEEVE SETTER Bhargavi Reedmarystephen PAC CHEMISTRY ORDERABLES Fin al Result Performing Organization Address City/[facility]/ZIP Co de Phone Number [facility] [address] [place] [address] * (ABNORMAL) URINALYSIS REFLEX IF INDICATED BY ABNORMAL RESULTS (10/17/2023 1:34 PM SLEEVE SETTER) SPECIFIC GRAVITY 1.025 1.003 - 1.030 10/17/2023 3:52 PM SLEEVE SETTER [facility] URINE PH 6.0 5.0 - 9.0 10/17/2023 3:52 PM [facility] WBC ESTERASE 500 /uL(A) Negative 10/17/2023 3:52 PM [facility] NITRITE Negative Negative 10/17/2023 3:52 PM [facility] PROTEIN, RANDOM URINE 30 mg/dL(A) Negative 10/17/2023 3:52 PM [facility] URINE GLUCOSE, QUAL 250 mg/dL(A) Negative 10/17/2023 3:52 PM [facility] URINE KETONES Negative Negative 10/17/2023 3:52 PM [facility] UROBILINOGEN Normal Normal mg/dL 10/17/2023 3:52 PM [facility] URINE BLOOD 10 /uL(A) Negative minerva/ul 10/17/2023 3:52 PM [facility] URINALYSIS COLOR Yellow 10/17/2023 3:52 PM [facility] URINALYSIS CLARITY Very Cloudy 10/17/2023 3:52 PM [facility] WBC (Urine) 51-150(A) Negative, 0-5 /hpf 10/17/2023 3:52 PM [facility] URINE RBC'S 0-2 Negative, 0-2 /hpf 10/17/2023 3:52 PM [facility] EPITHELIAL CELLS Occasional /lpf 10/17/2023 3:52 PM [facility] BACTERIA, URINE Packed(A) Negative /hpf 10/17/2023 3:52 PM [facility] Urine URINE SPECIMEN COLLECTION, CLEAN CATCH / Unknown Non-Phlebotomy Collection / Unknown 10/17/2023 1:34 PM SLEEVE SETTER 10/17/2023 1:34 PM SLEEVE SETTER us Bhargavi Morel PAC URINE ORDERABLES Final R esult [facility] [address] [place] [address] documented in this encounter Visit Diagnoses Diagnosis Type 2 diabetes mellitus without complication, without long-term current use of insulin (HCC)- Primary Frequent UTI Urinary tract infection, site not specified Hypothyroidism, unspecified type Elevated MCV Other abnormality of red blood cells Vaginal itching Pruritus of genital organs Encounter for hepatitis C screening test for low risk patient documented in this encounter Additional Health Concerns Assessment Noted Time PHQ-9 Depression Total Score: 0 10/18/19 1:27 PM SLEEVE SETTER documented as of this encounter Care Teams Improvement Specialist Relationship Specialty Start Date End Date Jovita Bermudez MD [address] [place] [address] PCP - General Family Medicine 11/30/20 07/21/23 Flaquito Hurd MD [address] [place] [address] Consulting Physician Pulmonary Disease 11/09/22 documented as of this encounter
--- OUTSIDE RECORDS SUMMARY | 2024-08-30 18:48 | XMS_ITS | Encounter Summary ---
Author Organization [facility] Address [address] [place] [address] Phone Care Team Providers Care Guard Entrance Registrar Name Role Phone Maria Teresa Vaniaquintin CHIU Primary Care Provider + Flaquito Hurd MD Unavailable Encounter Details Date Type Department Care Team (Late st Contact Info) Description 10/17/2023 1:50 PM FIRER MARINE Lab [facility] [address] [phone] [facility] Frequent UTI; Type 2 diabetes mellitus without complication, without long-term current use of insulin (HCC); Elevated MCV; Encounter for hepatitis C screening test for low risk patient; Dysuria; Hypothyroidism, unspecified type Discharge Disposition: Discharged to [...] things Not at all 10/17/2023 12:52 PM FIRER MARINE Brittney Green CMA Feeling down, depressed, or hopeless Not at all 10/17/2023 12:52 PM FIRER MARINE Brittney Green CMA * Over the past 2 weeks, how often have you been bothered by any of the following problems? Question Answer Date of Assessment Author Patient Health Questionnaire -2 Score 0 10/17/2023 12:52 PM FIRER MARINE Brittney Green CMA documented as of this encounter Progress Notes * Michelle Dutton - 10/17/2023 1:50 PM CST Tressa presents for lab draw per order of bhargavi morel dated [id number]. Specimen collected from left antecubital without incident. [facility] R MARINE documented in this encounter Plan of Treatment Upcoming Encounters Date Type Department Care Team (Late st Contact Info) Description 10/29/2024 9:30 AM FIRER MARINE Office Visit [facility] - Family [facility] [address] [place] [address] Bhargavi Morel, ARAM [address] [place] [address] documented as of this encounter Procedures Procedure Name Priority Date/Time Associated Diagnosis Comments HEMOGLOBIN A1C W/ ESTIMATED GLUCOSE Routine 10/17/2023 1:34 PM FIRER MARINE Type 2 diabetes mellitus without complication, without long-term current use of insulin (HCC) URINALYSIS REFLEX IF INDICATED BY ABNORMAL RESULTS Routine 10/17/2023 1:34 PM FIRER MARINE Frequent UTI CBC WITH AUTO DIFFERENTIAL Routine 10/17/2023 1:34 PM FIRER MARINE Type 2 diabetes mellitus without complication, without long-term current use of insulin (HCC) Elevated MCV VITAMIN B12 Routine 10/17/2023 1:34 PM FIRER MARINE Elevated MCV THYROID STIMULATING HORMONE (TSH) Routine 10/17/2023 1:34 PM FIRER MARINE Hypothyroidism, unspecified type HEPATITIS C ANTIBODY Routine 10/17/2023 1:34 PM FIRER MARINE Encounter for hepatitis C screening test for low risk patient FOLIC ACID (FOLATE) Routine 10/17/2023 1 :34 PM FIRER MARINE Elevated MCV CULTURE, URINE Routine 10/17/2023 1:34 PM FIRER MARINE Frequent UTI CMP (COMPREHENSIVE METABOLIC PANEL) Routine 10/17/2023 1:34 PM FIRER MARINE Type 2 diabetes mellitus without complication, without long-term current use of insulin (HCC) COMPLETE BLOOD COUNT (CBC) WITH DIFF Routine 10/17/2023 1:34 PM FIRER MARINE Type 2 diabetes mellitus without complication, without long-term current use of insulin (HCC) Elevated MCV documented in this encounter Results * CULTURE, URINE (10/17/2023 1:34 PM FIRER MARINE) CULTURE RESULTS KLEBSIELLA OXYTOCA 10/19/2023 6:14 PM FIRER MARINE [facility] CULTURE RESULTS ALSO MIXED GROWTH OF DISTAL URETHRA CONTAMINANTS. 10/19/2023 6:14 PM FIRER MARINE [facility] Urine URINE SPECIMEN COLLECTION, CLEAN CATCH / Unknown Non-Phlebotomy Collection / Unknown 10/17/2023 1:34 PM FIRER MARINE 10/17/2023 1:34 PM FIRER MARINE Narrative Organism Antibiotic Method Susceptibility Klebsiella oxytoca Ampicillin/sulbactam [facility] VITEK IIB >=32 mcg/ml: Resistant Klebsiella oxytoca Cefepime [facility] IIB <=1 mcg/ml: Susceptible Klebsiella oxytoca Ceftriaxone [facility] IIB <=1 mcg/ml: Susceptible Klebsiella oxytoca Gentamicin [facility] IIB <=1 mcg/ml: Susceptible Klebsiella oxytoca Levofloxacin [facility] IIB <=0.12 mcg/ml: Susceptible Klebsiella oxytoca Meropenem [facility] IIB <=0.25 mcg/ml: Susceptible Klebsiella oxytoca Nitrofurantoin [facility] IIB 64 mcg/ml: Intermediate Klebsiella oxytoca Piperacillin/Tazobactam [facility] IIB <=4 mcg/ml: Susceptible Klebsiella oxytoca Tobramycin [facility] V[facility]K IIB 8 mcg/ml: Intermediate Klebsiella oxytoca Trimeth/Sulfamethoxazole [facility] IIB <=20 mcg/ml: Susceptible us Bhargavi Morel PAC MICROBIOLOGY - GENERAL O RDERABLES Final Result [facility] [address] [place] [address], * (ABNORMAL) CBC WITH AUTO DIFFERENTIAL (10/17/2023 1:34 PM FIRER MARINE) WBC 8.93 4.00 - 12.00 10(3)/mcL 10/17/2023 3:41 PM FIRER MARINE [facility] RBC 4.45 3.80 - 5.30 10(6)/mcL 10/17/2023 3:41 PM [facility] HEMOGLOBIN (HGB) 14.5 12.0 - 15.8 g/dL 10/17/2023 3:41 PM FIRER MARINE [facility] HEMATOCRIT (HCT) 44.2 36.0 - 47.0 % 10/17/2023 3:41 PM [facility] MCV 99.3(H) 82.0 - 96.0 fL 10/17/2023 3:41 PM FIRER MARINE [facility] MCH 32.6 26.0 - 34.0 pg 10/17/2023 3:41 PM FIRER MARINE [facility] MCHC 32.8 31.0 - 36.0 g/dL 10/17/2023 3:41 PM FIRER MARINE [facility] PLATELET COUNT 280 140 - 440 10(3)/mcL 10/17/2023 3:41 PM [facility] RDW 11.9 11.8 - 15.5 % 10/17/2023 3:41 PM [facility] MPV 10.7 9.7 - 12.4 fL 10/17/2023 3:41 PM [facility] NEUTROPHILS 61.0 47.0 - 73.0 % 10/17/2023 3:41 PM [facility] LYMPHOCYTES 25.6 18.0 - 42.0 % 10/17/2023 3:41 PM [facility] MONOCYTES 9.6 4.0 - 12.0 % 10/17/2023 3:41 PM [facility] EOSINOPHILS 3.0 0.0 - 5.0 % 10/17/2023 3:41 PM [facility] BASOPHILS 0.8 0.0 - 1.0 % 10/17/2023 3:41 PM [facility] ABSOLUTE NEUTROPHILS 5.44 1.60 - 7.70 10(3)/[facility] 10/17/2023 3:41 PM [facility] ABSOLUTE LYMPHOCYTES 2.29 1.30 - 3.20 10(3)/[facility] 10/17/2023 3:41 PM [facility] ABSOLUTE MONOCYTES 0.86 0.20 - 1.00 10(3)/[facility] 10/17/2023 3:41 PM [facility] ABSOLUTE EOSINOPHIL 0.27 0.00 - 0.40 10(3)/[facility] 10/17/2023 3:41 PM [facility] ABSOLUTE BASOPHILS 0.07 0.00 - 0.10 10(3)/[facility] 10/17/2023 3:41 PM [facility] NRBC PER 100 WBC 0 10/17/19 3:41 PM [facility] Blood Venipuncture / Unknown 10/17/2023 1:34 PM FIRER MARINE 10/17/2023 1:34 PM FIRER MARINE us Bhargavi Morel PAC HEMATOLOGY ORDERABLES Fi nal Result [facility] [address] [place] [address] * THYROID STIMULATING HORMONE (TSH) (10/17/2023 1:34 PM FIRER MARINE) Pathologist [facility] TSH 1.725 0.300 - 5.000 mIU/L 10/17/2023 4:22 PM FIRER MARINE [facility] Blood Venipuncture / Unknown 10/17/2023 1:34 PM FIRER MARINE 10/17/2023 1:34 PM FIRER MARINE us Bhargavi Morel PAC CHEMISTRY ORDERABLES Fin al Result [facility] [address] [place] [address] * (ABNORMAL) CMP (COMPREHENSIVE METABOLIC PANEL) (10/17/2023 1:34 PM FIRER MARINE) [facility] SODIUM 135(L) 136 - 145 mmol/L 10/17/2023 4:05 PM [facility] POTASSIUM 4.7 3.5 - 5.1 mmol/L 10/17/2023 4:05 PM [facility] CHLORIDE 102 98 - 107 mmol/L 10/17/2023 4:05 PM [facility] CO2, VENOUS 24 22 - 30 mmol/L 10/17/2023 4:05 PM [facility] ANION GAP 13.7 <18.0 mmol/L 10/17/2023 4:05 PM [facility] GLUCOSE 212(H) 70 - 99 mg/dL 10/17/2023 4:05 PM [facility] BUN 17 10 - 20 mg/dL 10/17/2023 4:05 PM [facility] CREATININE, BLOOD 0.75 0.60 - 1.00 mg/dL 10/17/2023 4:05 PM [facility] BUN/CREATININE RATIO 23(H) 12 - 20 ratio 10/17/2023 4:05 PM [facility] TOTAL PROTEIN 7.4 6.3 - 8.2 g/dL 10/17/2023 4:05 PM [facility] ALBUMIN 3.7 3.5 - 5.0 g/dL 10/17/2023 4:05 PM [facility] A/G RATIO 1.0 1.0 - 2.2 10/17/2023 4:05 PM [facility] CALCIUM 9.1 8.7 - 10.5 mg/dL 10/17/2023 4:05 PM [facility] T BILI 0.3 0.2 - 1.2 mg/dL 10/17/2023 4:05 PM [facility] SGOT (AST) 29 5 - 34 U/L 10/17/2023 4:05 PM [facility] SGPT (ALT) 26 0 - 55 U/L 10/17/2023 4:05 PM [facility] ALKALINE PHOSPHATASE 98 40 - 150 U/L 10/17/2023 4:05 PM [facility] IS THE PATIENT REQUIRED TO BE FASTING? No 10/17/2023 4:05 PM [facility] GFR, ESTIMATED >60 >=60 10/17/2023 4:05 PM [facility] Comment: Creatinine Clearance is the preferred criteria for selecting drug dose adjustments in renally impaired patients. ??The GFR is provided as additional pertinent clinical information. GFR is reported in mL/min/1.73 sq m. Calculation based on the Chronic Kidney Disease Epidemiology Collaboration (CKD- EPI) equation refit without adjustment for race. GFR, EST. >60 >=60 024 4:05 PM [facility] GFR, EST. NONAFRICAN >60 >=60 10/17/2023 4:05 PM [facility] Blood Venipuncture / Unknown 10/17/2023 1:34 PM FIRER MARINE 10/17/2023 1:34 PM FIRER MARINE us Bhargavi Morel PAC CHEMISTRY ORDERABLES Fin al Result [facility] [address] [place] [address] * (ABNORMAL) HEMOGLOBIN A1C W/ ESTIMATED GLUCOSE (10/17/2023 1:34 PM FIRER MARINE) [facility] HGB-A1C 11.3(H) 4.0 - 6.0 % 10/17/2023 3:50 PM FIRER MARINE [facility] Est Average Glucose 277.6 mg/dL 10/17/2023 3:50 PM FIRER MARINE [facility] Blood Venipuncture / Unknown 10/17/2023 1:34 PM FIRER MARINE 10/17/2023 1:34 PM FIRER MARINE Narrative [facility] - 10/17/2023 3:50 PM FIRER MARINE HEMOGLOBIN A1C: DIABETIC PATIENTS: WELL-CONTROLLED: ?? 6.2 - 7.0 INTERMEDIATE WELL-CONTROLLED: ??7.0 - 9.0 POORLY-CONTROLLED: ??>9.0 Bhargavi Morel PAC CHEMISTRY ORDERABLES Fin al Result [facility] [address] [place] [address] * HEPATITIS C ANTIBODY (10/17/2023 1:34 PM FIRER MARINE) [facility] hepatitis C antibody 0.11 <1 S/CO [facility] ARCH [id number] B 10/17/2023 11:16 PM FIRER MARINE [facility] Comment: Signal/Cutoff ratio ??< 0.79 is Nondetected Signal/Cutoff ratio 0.80-0.99 is Grayzone Signal/Cutoff ratio > 0.99 is Detected Supplemental assays are recommended if signal/cutoff ratio is >/=1.00. ??Signal/cutoff ratio result >/= 5.00 is 97% predictive of positivity for recombinant immunoblot assay (RIBA) and will be reported to the [place] Department of Public Health as required. Blood Venipuncture / Unknown 10/17/2023 1:34 PM FIRER MARINE 10/17/2023 1:34 PM FIRER MARINE Bhargavi Morel PAC CHEMISTRY ORDERABLES Fin al Result [facility] [address] [place] [address], * FOLIC ACID (FOLATE) (10/17/2023 1:34 PM FIRER MARINE) FOLATE 14.4 7.0 - 31.4 ng/mL 10/17/2023 4:37 PM FIRER MARINE [facility] IS THE PATIENT REQUIRED TO BE FASTING? No 10/17/2023 4:37 PM FIRER MARINE [facility] Blood Venipuncture / Unknown 10/17/2023 1:34 PM FIRER MARINE 10/17/2023 1:34 PM FIRER MARINE Bhargavi Morel PAC CHEMISTRY ORDERABLES Fin al Result Performing Organization Address [facility]/ZIP Co de Phone Number [facility] [address] [place] [address] * (ABNORMAL) VITAMIN B12 (10/17/2023 1:34 PM FIRER MARINE) [facility] VITAMIN B12 1,271(H) 213 - 816 pg/mL 10/17/2023 4:37 PM FIRER MARINE [facility] Blood Venipuncture / Unknown 10/17/2023 1:34 PM FIRER MARINE 10/17/2023 1:34 PM FIRER MARINE Bhargavi Morel PAC CHEMISTRY ORDERABLES Fin al Result Performing Organization Address City/[facility]/ZIP Co de Phone Number [facility] [address] [place] [address] * (ABNORMAL) URINALYSIS REFLEX IF INDICATED BY ABNORMAL RESULTS (10/17/2023 1:34 PM FIRER MARINE) SPECIFIC GRAVITY 1.025 1.003 - 1.030 10/17/2023 3:52 PM FIRER MARINE [facility] URINE PH 6.0 5.0 - 9.0 10/17/2023 3:52 PM FIRER MARINE [facility] WBC ESTERASE 500 /uL(A) Negative 10/17/2023 3:52 PM FIRER MARINE [facility] NITRITE Negative Negative 10/17/2023 3:52 PM FIRER MARINE [facility] PROTEIN, RANDOM URINE 30 mg/dL(A) Negative 10/17/2023 3:52 PM FIRER MARINE [facility] URINE GLUCOSE, QUAL 250 mg/dL(A) Negative 10/17/2023 3:52 PM FIRER MARINE [facility] URINE KETONES Negative Negative 10/17/2023 3:52 PM FIRER MARINE [facility] UROBILINOGEN Normal Normal mg/dL 10/17/2023 3:52 PM FIRER MARINE [facility] URINE BLOOD 10 /uL(A) Negative minerva/ul 10/17/2023 3:52 PM FIRER MARINE [facility] URINALYSIS COLOR Yellow 10/17/2023 3:52 PM FIRER MARINE [facility] URINALYSIS CLARITY Very Cloudy 10/17/2023 3:52 PM FIRER MARINE [facility] WBC (Urine) 51-150(A) Negative, 0-5 /hpf 10/17/2023 3:52 PM FIRER MARINE [facility] URINE RBC'S 0-2 Negative, 0-2 /hpf 10/17/2023 3:52 PM FIRER MARINE [facility] EPITHELIAL CELLS Occasional /lpf 10/17/2023 3:52 PM FIRER MARINE [facility] BACTERIA, URINE Packed(A) Negative /hpf 10/17/2023 3:52 PM FIRER MARINE [facility] Urine URINE SPECIMEN COLLECTION, CLEAN CATCH / Unknown Non-Phlebotomy Collection / Unknown 10/17/2023 1:34 PM FIRER MARINE 10/17/2023 1:34 PM FIRER MARINE us Bhargavi Morel PAC URINE ORDERABLES Final R esult [facility] [address] [place] [address] documented in this encounter Visit Diagnoses Diagnosis Frequent UTI Urinary tract infection, site not specified Type 2 diabetes mellitus without complication, without long-term current use of insulin (HCC) Elevated MCV Other abnormality of red blood cells Encounter for hepatitis C screening test for low risk patient Dysuria Hypothyroidism, unspecified type documented in this encounter Additional Health Concerns Assessment Noted Time PHQ-9 Depression Total Score: 0 10/17/19 24 12:52 PM FIRER MARINE documented as of this encounter Care Teams Guard Entrance Registrar Relationship Specialty Start Date End Date Bhargavi Morel PAC [address] [place] [address] PCP - General Physician Construction Safety Consultant 07/22/23 Flaquito Hurd MD [address] [place] [address] Consulting Physician Pulmonary Disease 11/09/22 documented as of this encounter
--- OUTSIDE RECORDS SUMMARY | 2024-08-30 18:48 | XMS_ITS | Encounter Summary ---
Author Organization [facility] Address [address] [place] [address] Phone Care Team Providers Care Tying Machine Operator Lumber Name Role Phone Bhargavi Morel ARAM Primary Care Provider + Flaquito Hurd MD Unavailable Reason for Visit * Reason Comments Medication Refill Encounter Details Date Type Department Care Team (Late Contact Info) Description 08/10/2023 Refill [facility] [address] [place] [address] Jovita Bermudez MD [address] [place] [address] Medication Refill Social History Tobacco Use Types [...] Telephone Encounter - Reanna Rios RN - 08/10/2023 3:13 PM CST PDMP 07/12/23 - 7 days Medication failed the protocol, provider to review and approve the medication order if appropriate. Requested Prescriptions Pending Prescriptions Disp Refills traMADol (ULTRAM) 50 MG Tablet [Pharmacy Med Name: TRAMADOL HCL 50MG TABS] 28 Tablet 0 Sig: TAKE ONE TABLET BY MOUTH EVERY 6 HOURS NEEDED FOR MODERATE OR SEVERE PAIN Not Delegated - Opioid Agonists Protocol Failed - 08/10/2023 11:47 AM Failed - This refill cannot be [...] requirements Future Appointments Date Type Provider Dept 09/12/23 Appointment Bhargavi Morel PAC [facility] Showing future appointments within next 90 days and meeting all other requirements TING FIXTURES DECORATOR documented in this encounter Plan of Treatment Upcoming Encounters Date Type Department Care Team (Late st Contact Info) Description 10/29/2024 9:30 AM LIGHTING FIXTURES DECORATOR Office Visit [facility] [place] [address] [place] [address] Bhargavi Morel PAC [address] [place] [address] documented as of this encounter Visit Diagnoses Diagnosis Pain and swelling of right knee documented in this encounter Additional Health Concerns Assessment Noted Time PHQ-9 Depression Total Score: 0 10/18/19 1:27 PM LIGHTING FIXTURES DECORATOR documented as of this encounter Care Teams Tying Machine Operator Lumber Relationship Specialty Start Date End Date Bhargavi Morel PAC [address] [place] [address] PCP - General Physician Agricultural Extension Specialist 07/22/23 Flaquito Hurd MD [address] [place] [address] Consulting Physician Pulmonary Disease 11/09/22 documented as of this encounter
--- OUTSIDE RECORDS SUMMARY | 2024-08-30 18:48 | XMS_ITS | Encounter Summary ---
Author Organization [facility] Address [address] [place] [address] Phone Care Team Providers Care Deputy County Clerk Name Role Phone Bhargavi Morel ARAM Primary Care Provider + Flaquito Hurd MD Unavailable Wes Petty MD Unavailable Reason for Visit * Reason Comments Medication Refill Encounter Details Date Type Department Care Team (Late st Contact Info) Description 03/05/2024 Refill [facility] - Pulmonology & Sleep Medicine [facility] [address] [place] [address] Flaquito Hurd MD [address] [place] [address] Medication Refill Social History Tobacco Use Types Packs/Day Years Used Date Smoking Tobacco: Former Cigarettes 2 35 Smokeless Tobacco: Never Alcohol Use Standard Drinks/Week Comments Not Currently 0 (1 standard drink = 0.6 oz pur e alcohol) [facility] Utilities Answer Date Recorded In the past 12 months has [employer] electric, gas, oil, or water company threatened [...] often do you attend chur ch or zoroastrianism services? Never 01/16/2024 Do you belong to [...] Total Score - Questions 1-9 0 09/28 [facility] of Occupat ional [facility] - Occupational Stress Questionnaire Answer [...] a senior living (including now)? No 01/16/2024 Education Answer Date [...] Telephone Encounter - Betsy Cruz RN - 03/05/2024 10:00 AM CDT Patient requires appointment. Last appointment with provider was 11/09/22. documented in this encounter Plan of Treatment Upcoming Encounters Date Type Department Care Team (Late st Contact Info) Description 10/29/2024 9:30 AM EDUCATIONAL GUIDANCE COUNSELOR Office Visit [facility] [address] [place] [address] Bhargavi Morel, PAC [address] [place] [address] documented as of this encounter Visit Diagnoses Diagnosis Restless legs syndrome (RLS) documented in this encounter Additional Health Concerns Assessment Noted Time PHQ-9 Depression Total Score: 0 10/17/19 24 12:52 PM EDUCATIONAL GUIDANCE COUNSELOR documented as of this encounter Care Teams Deputy County Clerk Relationship Specialty Start Date End Date Bhargavi Morel PAC [address] [place] [address] PCP - General Physician Ict Support Technicians 07/22/23 Flaquito Hurd MD [address] [place] [address] Consulting Physician Pulmonary Disease 11/09/22 Wes Petty MD [address] [address] Consulting Physician Urology 01/18/24 documented as of this encounter
--- OUTSIDE RECORDS SUMMARY | 2024-08-30 18:48 | XMS_ITS | Encounter Summary ---
Author Organization [facility] Care Team Providers Care Fabric Awning Repairer Name Role Phone Bhargavi Morel ARAM Primary Care Provider + Flaquito Hurd MD Unavailable Wes Petty MD Unavailable Encounter Details Date Type Department Care Team (Latest Contact Info) Description 03/18/2024 Travel Social History Tobacco Use Types Packs/Day Years Used Date Smoking Tobacco: Former Cigarettes 2 35 Smokeless Tobacco: Never Alcohol Use Standard Drinks/Week Comments Not Currently 0 (1 standard drink = 0.6 oz pur e alcohol) [facility] Utilities Answer Date Recorded In the past 12 months has [employer] electric, gas, oil, or water company threatened [...] How often do you attend christian or yazidism serv ices? Patient declined 03/18/2024 Do you [...] Total Score - Questions 1-9 0 09/28 [facility] - Occupational Stress Questionnaire Answer Date Recorded [...] as of this encounter Functional Status * Audit-C Score [...] 03/18/2024 8:19 AM CDT Lilo Chavis CMA * Over the past 2 weeks, how often have you been bothered by any of the following problems? Question Answer Date of Assessment Author Patient Health Questionnaire -2 Score 0 03/18/2024 8:19 AM Lilo Castelan CMA documented as of this encounter Plan of Treatment Upcoming Encounters Date Type Department Care Team (Late st Contact Info) Description 10/29/2024 9:30 AM WHEEL PRESS CLERK Office Visit [facility] [address] [place] [address] Bhargavi Morel PAC [address] [place] [address] documented as of this encounter Visit Diagnoses Not on filedocumented in this encounter Additional Health Concerns Assessment Noted Time PHQ-9 Depression Total Score: 0 10/17/19 24 12:52 PM WHEEL PRESS CLERK documented as of this encounter Care Teams Fabric Awning Repairer Relationship Specialty Start Date End Date Bhargavi Morel PAC [address] [place] [address] PCP - General Physician Hydroelectric Operator 07/22/23 Flaquito Hurd MD [address] [place] [address] Consulting Physician Pulmonary Disease 11/09/22 Wes Petty MD [address] [address] Consulting Physician Urology 01/18/24 documented as of this encounter
--- OUTSIDE RECORDS SUMMARY | 2024-08-30 18:48 | XMS_ITS | Encounter Summary ---
Author Organization [facility] Address [address] [place] [address] Phone Care Team Providers Care Tax Attorney Name Role Phone Bhargavi Morel Primary Care Provider + Flaquito Hurd MD Unavailable Wes Petty MD Unavailable Reason for Visit * Reason Comments Medication Refill Encounter Details Date Type Department Care Team (Late st Contact Info) Description 01/23/2024 Refill [facility] [address]2 [place] [address] Bhargavi Morel PAC [address] [place] [address] Medication Refill Social History Tobacco Use Types Packs/Day Years Used Date Smoking Tobacco: Former Cigarettes 2 35 Smokeless Tobacco: Never Alcohol Use Standard Drinks/Week Comments Not Currently 0 (1 standard drink = 0.6 oz pur e alcohol) [facility] Utilities Answer Date Recorded In the past 12 months has [employer], gas, oil, or water company threatened [...] often do you attend chur ch or presybeterian services? Never 01/16/2024 Do you belong to [...] Total Score - Questions 1-9 0 09/28 [facility] - [...] Telephone Encounter - Reanna Rios RN - 01/24/2024 8:17 AM CDT Medication failed the protocol, provider to review and approve the medication order if appropriate. Requested Prescriptions Pending Prescriptions Disp Refills PARoxetine (PAXIL) 40 MG Tablet [Pharmacy Med Name: PAROXETINE HCL 40MG TABS] 90 Tablet 1 Sig: TAKE ONE TABLET BY MOUTH EVERY DAY SSRI (6 Month Refill Only) Protocol Failed - 01/23/2024 9:27 AM Failed - Has an encounter in the past 6 months with a depression, anxiety, adjustment disorder, OCD, or PTSD visit diagnosis Passed - Visit with relevant provider in past 6 months or upcoming 90 days Recent Visits Date Type Provider Dept 01/16/24 Office Visit Bhargavi Morel PAC [facility] 10/17/23 Office Visit Bhargavi Morel PAC [facility] Showing recent visits within past 182 days and meeting all other requirements Future Appointments Date Type Provider Dept 04/23/24 Appointment Bhargavi Morel PAC [facility] Showing future appointments within next 90 days and meeting all other requirements Passed - Patient has established therapy with SSRI for at least 6 months documented in this encounter Plan of Treatment Upcoming Encounters Date Type Department Care Team (Late st Contact Info) Description 10/29/2024 9:30 AM FILLER OPERATOR Office Visit [facility] [address] [place] [address] Bhargavi Morel PAC [address] [place] [address] documented as of this encounter Visit Diagnoses Not on filedocumented in this encounter Additional Health Concerns Assessment Noted Time PHQ-9 Depression Total Score: 0 10/17/19 24 12:52 PM FILLER OPERATOR documented as of this encounter Care Teams Tax Attorney Relationship Specialty Start Date End Date Bhargavi Morel PAC [address] [place] [address] PCP - General Physician Ginner Helper 07/22/23 Flaquito Hurd MD [address] [place] [address] Consulting Physician Pulmonary Disease 11/09/22 Wes Petty MD [address] [address] Consulting Physician Urology 01/18/24 documented as of this encounter
--- OUTSIDE RECORDS SUMMARY | 2024-08-30 18:48 | XMS_ITS | Encounter Summary ---
Author Organization [facility] Address [address] [place] [address] Phone Care Team Providers Care Top Collar Maker Name Role Phone Bhargavi Morel Primary Care Provider + Flaquito Hurd MD Unavailable Reason for Visit * Reason Onset Date Comments Advice Only 10/25/2023 Encounter Details Date Type Department Care Team (Late st Contact Info) Description 10/25/2023 Telephone [facility] [address] [place] [address] Bhargavi Morel PAC [address] [place] [address] Advice Only Social History Tobacco Use Types Packs/Day Years [...] encounter Miscellaneous Notes * Telephone Encounter - Bhargavi Morel PAC - 10/29/2023 8:25 AM POLITICAL SCIENCE RESEARCH ASSISTANT Ozempic was sent in, notify if any problems with medication TICAL SCIENCE RESEARCH ASSISTANT * Addendum Note - Bhargavi Morel PAC - 10/26/2023 5:40 PM CSTAddended by: BHARGAVI MOREL on: 10/26/2023 05:40 PM Modules accepted: Orders TICAL SCIENCE RESEARCH ASSISTANT * Telephone Encounter - Xochilt Easley RN - 10/26/2023 3:31 PM POLITICAL SCIENCE RESEARCH ASSISTANT Spoke to pt. We had contacted her concerning her A1C, tele encounter 10/22/23, she was deciding if she wanted to see endocrinology or start on nightly insulin or weekly injections. Pt states she does not do well with needles, so she would prefer the weekly injections. Pharmacy of choice is [facility] in [place]. TICAL SCIENCE RESEARCH ASSISTANT * Telephone Encounter - Jluis Larios - 10/25/2023 11:25 AM CST RFC: Tressa called in regards to wanting more information about getting put on medication for her diabetes . Please call Tressa at [phone] (relationship to patient self) back regarding above referenced patient. Patient's Provider is ARAM James . TICAL SCIENCE RESEARCH ASSISTANT documented in this encounter Plan of Treatment Upcoming Encounters Date Type Department Care Team (Late st Contact Info) Description 10/29/2024 9:30 AM POLITICAL SCIENCE RESEARCH ASSISTANT Office Visit [facility] [address] [place] [address] Bhargavi Morel PAC [address] [place] [address] documented as of this encounter Visit Diagnoses Diagnosis Type 2 diabetes mellitus without complication, without long-term current use of insulin (HCC)- Primary documented in this encounter Additional Health Concerns Assessment Noted Time PHQ-9 Depression Total Score: 0 10/17/19 24 12:52 PM POLITICAL SCIENCE RESEARCH ASSISTANT documented as of this encounter Care Teams Top Collar Maker Relationship Specialty Start Date End Date Bhargavi Morel PAC [address] [place] [address] PCP - General Physician Ladle Builder 07/22/23 Flaquito Hurd MD [address] [place] [address] Consulting Physician Pulmonary Disease 11/09/22 documented as of this encounter
--- OUTSIDE RECORDS SUMMARY | 2024-08-30 18:48 | XMS_ITS | Encounter Summary ---
Author Organization [facility] Address [address] [place] [address] Phone Care Team Providers Care Perfusionist Name Role Phone Bhargavi Morel Primary Care Provider + Flaquito Hurd MD Unavailable Wes Petty MD Unavailable Reason for Visit * Reason Onset Date Comments Medication Management 01/21/2024 Encounter Details Date Type Department Care Team (Late st Contact Info) Description 01/21/2024 Telephone [facility] - Family Medicine [facility] [address] [place] [address] Bhargavi Morel PAC [address] [place] [address] Medication Management Social History Tobacco Use Types Packs/Day Years Used Date Smoking Tobacco: Former Cigarettes 2 35 Smokeless Tobacco: Never Alcohol Use Standard Drinks/Week Comments Not Currently 0 (1 standard drink = 0.6 oz pur e alcohol) [facility] Utilities Answer Date Recorded In the [...] any clubs o r organizations such as zoroastrian groups, unions, fraternal or athletic groups, or [...] Total Score - Questions 1-9 0 09/28 [facility] - Occupational Stress Questionnaire Answer [...] place to sleep or slept in a fpc (including now)? No 01/16/2024 Education Answer Date [...] Telephone Encounter - Haven Segovia RN - 01/23/2024 1:41 PM CDT Spoke with patient to relay information. Patient verbalizes understanding and has no questions at this time. * Telephone Encounter - Bhargavi Morel PAC - 01/21/2024 7:58 PM CDT Since patient cannot tolerate ozempic and not being on jardiance did not seem to help with UTIs andfrequent urination will have her resume jardiance 25 mg daily, medication sent in Notify if any problems with jardiance documented in this encounter Plan of Treatment Upcoming Encounters Date Type Department Care Team (Late st Contact Info) Description 10/29/2024 9:30 AM IT DISASTER RECOVERY MANAGER Office Visit [facility] - Family [facility] [address] [place] [address] Bhargavi Morel PAC [address] [place] [address] documented as of this encounter Visit Diagnoses Not on filedocumented in this encounter Additional Health Concerns Assessment Noted Time PHQ-9 Depression Total Score: 0 10/17/19 24 12:52 PM IT DISASTER RECOVERY MANAGER documented as of this encounter Care Teams Perfusionist Relationship Specialty Start Date End Date Bhargavi Morel PAC [address] [place] [address] PCP - General Physician Shorthand Teacher 07/22/23 Flaquito Hurd MD [address] [place] [address] Consulting Physician Pulmonary Disease 11/09/22 Wes Petty MD [address] [address] [address] Consulting Physician Urology 01/18/24 documented as of this encounter
--- OUTSIDE RECORDS SUMMARY | 2024-08-30 18:48 | XMS_ITS | Encounter Summary ---
Author Organization [facility] Address [address] [place] [address] Phone Care Team Providers Care Spectral Scientist Name Role Phone Bhargavi Morel Primary Care Provider + Flaquito Hudr MD Unavailable Reason for Visit * Reason Onset Date Comments Appointment 08/26/2023 Urinary Tract Infection 08/26/2023 Encounter Details Date Type Department Care Team (Late st Contact Info) Description 08/26/2023 Nurse Triage [facility] [address] [place] [address] Bhargavi Morel PAC [address] [place] [address] Appointment; Urinary Tract Infection Social History Tobacco [...] Telephone Encounter - Beth Hawthorne RN - 08/26/2023 1:15 PM CST SITUATION: UTI BACKGROUND: Symptoms started 4 days ago ASSESSMENT: Symptom Description / Location: Urgency Frequency Moore with urination Urinary incontinence Back pain Urine is cloudy Denies blood in urine, odor, N/V Pain (0-10):10/10 Temp:Denies fever Treatment / Response: RECOMMENDATION: See care advice and disposition for Guideline RN advised patient to go to PC. Voices understanding and is agreeable. Assistive Devices verified First positive answer recorded, all responses to prior questions were negative. If symptoms increase, change or if new symptoms develop, call your HCP or call back. Recommendations were based on caller information and is not a diagnosis. Verified and reviewed all triage information with caller. Reason for Disposition ??? Side (flank) or lower back pain present Protocols used: URINARY [id number] HEMODIALYSIS * Telephone Encounter - Zoey Torres - 08/26/2023 1:13 PM CST Symptom: Urine Symptoms Outcome: Transfer to green ware caster queue Reason: Severe pain when passing urine (pee) The caller accepted this outcome HEMODIALYSIS documented in this encounter Plan of Treatment Upcoming Encounters Date Type Department Care Team (Late st Contact Info) Description 10/29/2024 9:30 AM RN HEMODIALYSIS Office Visit [facility] - Family Medicine [facility] [address] [place] [address] Bhargavi Morel, ARAM [address] [place] [address] documented as of this encounter Visit Diagnoses Not on filedocumented in this encounter Additional Health Concerns Assessment Noted Time PHQ-9 Depression Total Score: 0 10/18/19 23 1:27 PM RN HEMODIALYSIS documented as of this encounter Care Teams Spectral Scientist Relationship Specialty Start Date End Date Bhargavi Morel PAC [address] [place] [address] PCP - General Physician Wrapping Checker 07/22/23 Flaquito Hurd MD [address] [place] [address] Consulting Physician Pulmonary Disease 11/09/22 documented as of this encounter
--- OUTSIDE RECORDS SUMMARY | 2024-08-30 18:48 | XMS_ITS | Encounter Summary ---
Author Organization [facility] Address [address] [place] [address] Phone Care Team Providers Care Wilderness Guide Name Role Phone Jovita Bermudez MD Primary Care Provider [phone] Flaquito Hurd MD Unavailable Reason for Visit * Reason Comments Medication Refill Encounter Details Date Type Department Care Team (Late st Contact Info) Description 06/15/2023 Refill [facility] [address] [place] [address] Jovita Bermudez MD [address] [place] [address] Medication Refill Social History Tobacco Use Types [...] Recorded In the last 10 days, have raad u been in contact with someone who was confirmed or suspected to have Coronavirus/COVID-19? No / Unsure 06/13/2023 10:14 AM CDT documented as of this encounter Miscellaneous Notes * Telephone Encounter - Reanna Rios RN - 06/15/2023 11:35 AM CDT Medication(s) refilled and signed per [facility] Chronic Medication Refill Standing Order for Pediatricand Adult Patients. Requested Prescriptions Pending Prescriptions Disp Refills ??? metFORMIN (GLUCOPHAGE) 1000 MG Tablet [Pharmacy Med Name: METFORMIN HCL 1000MG TABS] 180 Tablet1 Sig: TAKE ONE TABLET BY MOUTH TWICE A DAY Biguanides Protocol Passed - 06/15/2023 2:06 AM Passed - Visit with relevant provider in past 6 months or upcoming 90 days Recent Visits Date Type Provider Dept 04/10/23 Office Visit Bhargavi Morel PAC [facility] Showing recent visits within past 182 days and meeting all other requirements Future Appointments Date Type Provider Dept 07/11/23 Appointment Bhargavi Morel PAC [facility] Showing future appointments within next 90 days and meeting all other requirements Passed - HgA1C on record in past 6 months HGB-A1C Date Value Ref Range Status 05/23/2023 8.5 (H) 4.0 - 6.0 % Final Passed - GFR on record in past 6 months GFR, EST. NONAFRICAN Date Value Ref Range Status 05/23/2023 >60 >=60 Final documented in this encounter Plan of Treatment Upcoming Encounters Date Type Department Care Team (Late st Contact Info) Description 10/29/2024 9:30 AM E LEARNING MANAGER Office Visit [facility] - [place] [address] [place] [address] Bhargavi Morel PAC [address] [place] [address] documented as of this encounter Visit Diagnoses Not on filedocumented in this encounter Additional Health Concerns Assessment Noted Time PHQ-9 Depression Total Score: 0 10/18/19 1:27 PM E LEARNING MANAGER documented as of this encounter Care Teams Wilderness Guide Relationship Specialty Start Date End Date Jovita Bermudez MD [address] [place] [address] PCP - General Family Medicine 11/30/20 07/21/23 Flaquito Hurd MD [address] [place] [address] Consulting Physician Pulmonary Disease 11/09/22 documented as of this encounter
--- OUTSIDE RECORDS SUMMARY | 2024-08-30 18:48 | XMS_ITS | Encounter Summary ---
Author Organization [facility] Address [address] [place] [address] Phone Care Team Providers Care Hot Sealing Machine Operator Name Role Phone Bhargavi Morel Primary Care Provider + Flaquito Hurd MD Unavailable Wes Petty MD Unavailable Reason for Visit * Reason Comments Medication Refill Encounter Details Date Type Department Care Team (Late st Contact Info) Description 03/17/2024 Refill [facility] [address] [place] [address] Bhargavi Morel PAC [address] [place] [address] Medication Refill Social History Tobacco Use Types Packs/Day Years Used Date Smoking Tobacco: Former Cigarettes 2 35 Smokeless Tobacco: Never Alcohol Use Standard Drinks/Week Comments Not Currently 0 (1 standard drink = 0.6 oz pur e alcohol) [facility] Utilities Answer Date Recorded In the past 12 months has [employer], gas, oil, or water company threatened to [...] declined 03/18/2024 How often do you attend presybeterian or samaritan serv ices? Patient declined 03/18/2024 Do you belong to any clubs o r organizations such as presybeterian groups, unions, fraternal or athletic groups, or [...] Total Score - Questions 1-9 0 09/28 [facility] - Occupational Stress Questionnaire Answer Date [...] any time in the past 12 m [facility], were you homeless or living in a [...] Telephone Encounter - Sherry Lugo RN - 03/17/2024 12:10 PM CDT PDMP 6-12-24, 7 days Medication failed the protocol, provider to review and approve the medication order if appropriate. Requested Prescriptions Pending Prescriptions Disp Refills traMADol (ULTRAM) 50 MG Tablet [Pharmacy Med Name: TRAMADOL HCL 50MG TABS] 28 Tablet 0 Sig: TAKE ONE TABLET BY MOUTH EVERY 6 HOURS NEEDED FOR MODERATE OR SEVERE PAIN Not Delegated - Opioid Agonists Protocol Failed - 03/17/2024 12:02 PM Failed - This refill cannot be delegated Passed - Visit with relevant provider in past 12 months or upcoming 90 days Recent Visits Date Type Provider Dept 01/16/24 Office Visit Bhargavi Morel, PAC [facility] 10/17/23 Office Visit Bhargavi Morel PAC [facility] 07/11/23 Office Visit Bhargavi Morel, PAC [facility] 04/10/23 Office Visit Bhargavi Morel PAC [facility] Showing recent visits within past 365 days and meeting all other requirements Future Appointments Date Type Provider Dept 03/18/24 Appointment Cole Garsia APRN, CNP [facility] [place] 04/16/24 Appointment Naga [facility] 04/23/24 Appointment Bhargavi Morel PAC [facility] Showing future appointments within next 90 days and meeting all other requirements documented in this encounter Plan of Treatment Upcoming Encounters Date Type Department Care Team (Late st Contact Info) Description 10/29/2024 9:30 AM BEHAVIORAL HEALTH CONSULTANT Office Visit [facility] - [place] [address] [place] [address] Bhargavi Morel PAC [address] [place] [address] documented as of this encounter Visit Diagnoses Diagnosis Pain and swelling of right knee documented in this encounter Additional Health Concerns Assessment Noted Time PHQ-9 Depression Total Score: 0 10/17/19 12:52 PM BEHAVIORAL HEALTH CONSULTANT documented as of this encounter Care Teams Hot Sealing Machine Operator Relationship Specialty Start Date End Date Bhargavi Morel PAC [address] [place] [address] PCP - General Physician Clothing Worker 07/22/23 Flaquito Hurd MD [address] [place] [address] Consulting Physician Pulmonary Disease 11/09/22 Wes Petty MD [address] [address] Consulting Physician Urology 01/18/24 documented as of this encounter
--- OUTSIDE RECORDS SUMMARY | 2024-08-30 18:48 | XMS_ITS | Encounter Summary ---
Author Organization [facility] Care Team Providers Care Flight Hostess Name Role Phone Bhargavi Morel ARAM Primary Care Provider + Flaquito Hurd MD Unavailable Wes Petty MD Unavailable Encounter Details Date Type Department Care Team (Latest Contact Info) Description 03/25/2024 Travel Social History Tobacco Use Types Packs/Day Years Used Date Smoking Tobacco: Former Cigarettes 2 35 Smokeless Tobacco: Never Alcohol Use Standard Drinks/Week Comments Not Currently 0 (1 standard drink = 0.6 oz pur e alcohol) [facility] Utilities Answer Date Recorded In the past 12 months has [employer], gas, oil, or water company threatened [...] declined 03/18/2024 How often do you attend religious or samaritan serv ices? Patient declined 03/18/2024 Do you belong to any clubs o r organizations such as religious groups, unions, fraternal or athletic groups, or [...] Score - Questions 1-9 0 09/28 [facility] - Occupational Stress Questionnaire Answer Date [...] st Contact Info) Description 10/29/2024 9:30 AM INFLATED PAD BUFFER Office Visit [facility] - Family [facility] [address] [place] [address] Bhargavi Morel PAC [address] [place] [address] documented as of this encounter Visit Diagnoses Not on filedocumented in this encounter Additional Health Concerns Assessment Noted Time PHQ-9 Depression Total Score: 0 10/17/19 24 12:52 PM INFLATED PAD BUFFER documented as of this encounter Care Teams Flight Hostess Relationship Specialty Start Date End Date Bhargavi Morel PAC [address] [place] [address] PCP - General Physician Tax Clerk 07/22/23 Flaquito Hurd MD [address] [place] [address] Consulting Physician Pulmonary Disease 11/09/22 Wes Petty MD [address] [address] Consulting Physician Urology 01/18/24 documented as of this encounter
--- OUTSIDE RECORDS SUMMARY | 2024-08-30 18:48 | XMS_ITS | Encounter Summary ---
Author Organization [facility] Care Team Providers Care Clinical Trial Specialist Name Role Phone Bhargavi Morel Primary Care Provider + Flaquito Hurd MD Unavailable Encounter Details Date Type Department Care Team (Latest Contact Info) Description 01/16/2024 Travel Social History Tobacco Use Types Packs/Day Years Used Date Smoking Tobacco: Former Cigarettes 2 35 Smokeless Tobacco: Never Alcohol Use Standard Drinks/Week Comments Not Currently 0 (1 standard drink = 0.6 oz pur e alcohol) [facility] Utilities Answer Date Recorded In the past 12 months has [email or web address] electric, gas, oil, or water company threatened [...] often do you attend chur ch or anabaptist services? Never 01/16/2024 Do you belong to any clubs o r organizations such as holiness groups, unions, fraternal or athletic groups, or [...] Total Score - Questions 1-9 0 09/28 [facility] - [...] as of this encounter Functional Status * Within the [...] Green CMA documented as of this encounter Plan of Treatment Upcoming Encounters Date Type Department Care Team (Late st Contact Info) Description 10/29/2024 9:30 AM SECURITY CHECKER Office Visit [facility] [address] [place] [address] Bhargavi Morel PAC [address] [place] [address] documented as of this encounter Visit Diagnoses Not on filedocumented in this encounter Additional Health Concerns Assessment Noted Time PHQ-9 Depression Total Score: 0 10/17/19 24 12:52 PM SECURITY CHECKER documented as of this encounter Care Teams Clinical Trial Specialist Relationship Specialty Start Date End Date Bhargavi Morel PAC [address] [place] [address] PCP - General Physician Repairer Evaporator 07/22/23 Flaquito Hurd MD [address] [place] [address] Consulting Physician Pulmonary Disease 11/09/22 documented as of this encounter
--- OUTSIDE RECORDS SUMMARY | 2024-08-30 18:48 | XMS_ITS | Encounter Summary ---
Author Organization [facility] Address [address] [place] [address] Phone Care Team Providers Care Writer Technical Publications Name Role Phone Bhargavi Morel ARAM Primary Care Provider + Flaquito Hurd MD Unavailable Reason for Visit * Reason Comments Medication Refill Encounter Details Date Type Department Care Team (Late st Contact Info) Description 09/15/2023 Refill [facility] [address]2 [place] [address] Jovita Bermudez MD [address]2 [place] [address] Medication Refill Social History Tobacco Use Types [...] Telephone Encounter - Sherry Lugo RN - 09/15/2023 11:29 AM SEWING MACHINE OPERATOR ZIPPER Medication failed the protocol, provider to review and approve the medication order if appropriate. Requested Prescriptions Pending Prescriptions Disp Refills PARoxetine (PAXIL) 40 MG Tablet [Pharmacy Med Name: PAROXETINE HCL 40MG TABS] 90 Tablet 1 Sig: TAKE ONE TABLET BY MOUTH EVERY DAY SSRI (6 Month Refill Only) Protocol Failed - 09/15/2023 2:04 AM Failed - Has an encounter in the past 6 months with a depression, anxiety, adjustment disorder, OCD, or PTSD visit diagnosis Passed - Visit with relevant provider in past 6 months or upcoming 90 days Recent Visits Date Type Provider Dept 07/11/23 Office Visit Bhargavi Morel PAC [facility] [place] 04/10/23 Office Visit Bhargavi Morel PAC [facility] Showing recent visits within past 182 days and meeting all other requirements Future Appointments Date Type Provider Dept 10/17/23 Appointment [facility]argavi Morel [facility] [place] Showing future appointments within next 90 days and meeting all other requirements Passed - Patient has established therapy with SSRI for at least 6 months NG MACHINE OPERATOR ZIPPER documented in this encounter Plan of Treatment Upcoming Encounters Date Type Department Care Team (Late st Contact Info) Description 10/29/2024 9:30 AM SEWING MACHINE OPERATOR ZIPPER Office Visit [facility] - [place] [address] [place] [address] Bhargavi Morel PAC [address] [place] [address] documented as of this encounter Visit Diagnoses Not on filedocumented in this encounter Additional Health Concerns Assessment Noted Time PHQ-9 Depression Total Score: 0 10/18/19 23 1:27 PM SEWING MACHINE OPERATOR ZIPPER documented as of this encounter Care Teams Writer Technical Publications Relationship Specialty Start Date End Date Bhargavi Morel PAC [address] [place] [address] PCP - General Physician Side Stapler 07/22/23 Flaquito Hurd MD [address] [place] [address] Consulting Physician Pulmonary Disease 11/09/22 documented as of this encounter
--- OUTSIDE RECORDS SUMMARY | 2024-08-30 18:48 | XMS_ITS | Encounter Summary ---
Author Organization [facility] Address [address] [place] [address] Phone Care Team Providers Care Bellows Tester Name Role Phone Bhargavi Morel Primary Care Provider + Flaquito Hurd MD Unavailable Wes Petty MD Unavailable Reason for Visit * Reason Comments Medication Refill Encounter Details Date Type Department Care Team (Late st Contact Info) Description 12/26/2023 Refill [facility] [address]2 [place] [address] Bhargavi Morel PAC [address] [place] [address] Medication Refill Social History Tobacco Use Types [...] Telephone Encounter - Reanna Rios RN - 12/26/2023 11:09 AM CDT PDMP Tramadol 11/27/23 - 7 days Medication failed the protocol, provider to review and approve the medication order if appropriate. Requested Prescriptions Pending Prescriptions Disp Refills traMADol (ULTRAM) 50 MG Tablet [Pharmacy Med Name: TRAMADOL HCL 50MG TABS] 28 Tablet 0 Sig: TAKE ONE TABLET BY MOUTH EVERY 6 HOURS NEEDED FOR MODERATE OR SEVERE PAIN Not Delegated - Opioid Agonists Protocol Failed - 12/26/2023 9:58 AM Failed - This refill cannot be delegated Passed - Visit with relevant provider in past 12 months or upcoming 90 days Recent Visits Date Type Provider Dept 10/17/23 Office Visit Bhargavi Morel PAC [facility] 07/11/23 Office Visit Bhargavi Morel PAC [facility] 04/10/23 Office Visit Bhargavi Morel PAC [facility] Showing recent visits within past 365 days and meeting all other requirements Future Appointments Date Type Provider Dept 01/16/24 Appointment Bhargavi Morel PAC [facility] Showing future appointments within next 90 days and meeting all other requirements glipiZIDE (GLUCOTROL) 5 MG Tablet [Pharmacy Med Name: GLIPIZIDE 5MG TABS] 90 Tablet 1 Sig: TAKE 1/2 TABLET BY MOUTH DAILY, AFTER BREAKFAST Sulfonylureas Protocol Passed - 12/26/2023 9:58 AM Passed - Visit with relevant provider [...] st Contact Info) Description 10/29/2024 9:30 AM EVENT MARKETING REPRESENTATIVE Office Visit [facility] [address]2 [place] [address] Bhargavi Morel PAC [address] [place] [address] documented as of this encounter Visit Diagnoses Diagnosis Pain and swelling of right knee documented in this encounter Additional Health Concerns Assessment Noted Time PHQ-9 Depression Total Score: 0 10/17/19 24 12:52 PM EVENT MARKETING REPRESENTATIVE documented as of this encounter Care Teams Bellows Tester Relationship Specialty Start Date End Date Bhargavi Morel PAC [address] [place] [address] PCP - General Physician Manager Skilled 07/22/23 Flaquito Hurd MD [address] [place] [address] Consulting Physician Pulmonary Disease 11/09/22 Wes Petty MD [address] [place] [address] [address] Consulting Physician Urology 01/18/24 documented as of this encounter
--- OUTSIDE RECORDS SUMMARY | 2024-08-30 18:48 | XMS_ITS | Encounter Summary ---
Author Organization [facility] Address [address] [place] [address] Phone Care Team Providers Care Technical Applications Specialist Name Role Phone Jovita Bermudez MD Primary Care Provider [phone] Bhargavi Morel Primary Care Provider + Flaquito Hurd MD Unavailable Wes Petty MD Unavailable Reason for Visit * Reason Comments Medication Refill Encounter Details Date Type Department Care Team (Late st Contact Info) Description 07/12/2023 Refill [facility] [address] [place] [id number] Jovita Bermudez MD [address] [place] [address] Medication Refill Social History Tobacco [...] Telephone Encounter - Sherry Lugo RN - 07/12/2023 12:59 PM RAILROAD WHEELS AND AXLES INSPECTOR PDMP: dispensed 06-14-23 as 7-day supply Medication failed the protocol, provider to review and approve the medication order if appropriate. Requested Prescriptions Pending Prescriptions Disp Refills traMADol (ULTRAM) 50 MG Tablet [Pharmacy Med Name: TRAMADOL HCL 50MG TABS] 28 Tablet 0 Sig: TAKE ONE TABLET BY MOUTH EVERY 6 HOURS NEEDED FOR MODERATE OR SEVERE PAIN Not Delegated - Opioid Agonists Protocol Failed - 07/12/2023 9:14 AM Failed - This refill cannot be delegated Passed - Visit with relevant provider in past 12 months or upcoming 90 days Recent Visits Date Type Provider Dept 07/11/23 Office Visit Bhargavi Morel PAC [facility] [place] 04/10/23 Office Visit Bhargavi Morel [facility] 10/18/22 Office Visit Bhargavi Morel [facility] Showing recent visits within past 365 days and meeting all other requirements Future Appointments Date Type Provider Dept 09/12/23 [facility] future appointments within next 90 days and meeting all other requirements ROAD WHEELS AND AXLES INSPECTOR documented in this encounter Plan of Treatment Upcoming Encounters Date Type Department Care Team (Late st Contact Info) Description 10/29/2024 9:30 AM RAILROAD WHEELS AND AXLES INSPECTOR Office Visit [facility] - [place] [address] [place] [address] Bhargavi Morel, PAC [address] [place] [address] documented as of this encounter Visit Diagnoses Diagnosis Pain and swelling of right knee documented in this encounter Additional Health Concerns Assessment Noted Time PHQ-9 Depression Total Score: 0 10/18/19 23 1:27 PM RAILROAD WHEELS AND AXLES INSPECTOR documented as of this encounter Care Teams Technical Applications Specialist Relationship Specialty Start Date End Date Jovita Bermudez MD [address] [place] [address] PCP - General Family Medicine 11/30/20 07/21/23 Bhargavi Morel PAC [address] [place] [address] PCP - General Physician [facility] Office Supervisor 07/22/23 Flaquito Hurd MD [address] [place] [address] Consulting Physician Pulmonary Disease 11/09/22 Wes Petty MD [address] [address] Consulting Physician Urology 01/18/24 documented as of this encounter
--- OUTSIDE RECORDS SUMMARY | 2024-08-30 18:48 | XMS_ITS | Encounter Summary ---
Author Organization [facility] Address [address] [place] [address] Phone Care Team Providers Care Correctional Sergeant Name Role Phone Bhargavi Morel Primary Care Provider + Flaquito Hurd MD Unavailable Reason for Visit * Reason Onset Date Comments Results 10/22/2023 Encounter Details Date Type Department Care Team (Late st Contact Info) Description 10/22/2023 Telephone [facility] [address] [place] [address] Bhargavi Morel PAC [address] [place] [address] Results Social History Tobacco Use Types Packs/Day [...] Telephone Encounter - Xochilt Easley RN - 10/22/2023 3:43 PM LENS SHAPER GRINDER Spoke to pt, informed of medication sent in and A1C results. She is not sure if she wants to see endocrinology or start new medication. She would like to think about it over night and call us back tomorrow with her decision. Message sent to urology to please follow up concerning referral. SHAPER GRINDER * Telephone Encounter - Xochilt Easley RN - 10/22/2023 3:37 PM LENS SHAPER GRINDER ----- Message from ARAM James sent at 10/22/2023 2:34 PM LENS SHAPER GRINDER ----- Urine with infection, I sent in levaquin, take as directed, notify if no improvements She needs to follow up with urology referral, might try and help get scheduled Sugars not controlled suggest long acting insulin nightly or adding mounjaro Hga1c over 11.3 risk for complications with diabetes Suggest see pneumatic tool operator, can place referral if agreeable Let me know if willing to start any injections for diabetes SHAPER GRINDER documented in this encounter Plan of Treatment Upcoming Encounters Date Type Department Care Team (Late st Contact Info) Description 10/29/2024 9:30 AM LENS SHAPER GRINDER Office Visit [facility] [address] [place] [address] Bhargavi Morel PAC [address] [place] [address] documented as of this encounter Visit Diagnoses Not on filedocumented in this encounter Additional Health Concerns Assessment Noted Time PHQ-9 Depression Total Score: 0 10/17/19 24 12:52 PM LENS SHAPER GRINDER documented as of this encounter Care Teams Correctional Sergeant Relationship Specialty Start Date End Date Bhargavi Morel PAC [address] [place] [address] PCP - General Physician Manager It Security 07/22/23 Flaquito Hurd MD [address] [place] [address] Consulting Physician Pulmonary Disease 11/09/22 documented as of this encounter
--- OUTSIDE RECORDS SUMMARY | 2024-08-30 18:48 | XMS_ITS | Encounter Summary ---
Author Organization [facility] Address [address] [place] [address] Phone Care Team Providers Care Irrigator Valve Pipe Name Role Phone Jovita Bermudez MD Primary Care Provider [phone] Flaquito Hurd MD Unavailable Reason for Visit * Reason Comments Medication Refill Encounter Details Date Type Department Care Team (Late st Contact Info) Description 06/28/2023 Refill [facility] [address]2 [place] [address] Jovita Bermudez MD [address] [place] [address] Medication Refill Social History Tobacco Use Types [...] Rios RN - 06/28/2023 10:15 AM CDT Medication(s) [facility]illed and [facility] Medication Refill Standing Order for Pediatricand Adult Patients. Requested Prescriptions Pending Prescriptions Disp Refills ??? Jardiance 25 MG Tablet [Pharmacy Med Name: JARDIANCE 25MG TABS] 30 Tablet 2 Sig: TAKE ONE TABLET BY MOUTH EVERY DAY SGLT2 Inhibitors Protocol Passed - 06/28/2023 2:06 AM Passed - Visit with relevant provider in past 6 months or upcoming 90 days Recent Visits Date Type Provider Dept 04/10/23 Office Visit Bhargavi Morel PAC [facility] [place] Showing recent visits within past 182 days and meeting all other requirements Future Appointments Date Type Provider Dept 07/11/23 Appointment Bhargavi Morel PAC [facility] [place] Showing future appointments within next 90 days and meeting all other requirements Passed - HgA1C on record in past 6 months HGB-A1C Date Value Ref Range Status 05/23/2023 8.5 (H) 4.0 - 6.0 % Final Passed - GFR greater than or equal to 30 in past 6 months GFR, EST. NONAFRICAN Date Value Ref Range Status 05/23/2023 >60 >=60 Final documented in this encounter Plan of Treatment Upcoming Encounters Date Type Department Care Team (Late st Contact Info) Description 10/29/2024 9:30 AM HEART COORDINATOR Office Visit [facility] [place] [address] [place] [address] Bhargavi Morel PAC [address] [place] [address] documented as of this encounter Visit Diagnoses Not on filedocumented in this encounter Additional Health Concerns Assessment Noted Time PHQ-9 Depression Total Score: 0 10/18/19 1:27 PM HEART COORDINATOR documented as of this encounter Care Teams Irrigator Valve Pipe Relationship Specialty Start Date End Date Jovita Bermudez MD [address] [place] [address] PCP - General Family Medicine 11/30/20 07/21/23 Flaquito Hurd MD [address] [place] [address] Consulting Physician Pulmonary Disease 11/09/22 documented as of this encounter
--- OUTSIDE RECORDS SUMMARY | 2024-08-30 18:48 | XMS_ITS | Encounter Summary ---
Author Organization [facility] Address [address] [place] [address] Phone Care Team Providers Care Horse Stud Manager Name Role Phone Bhargavi Morel PAC Primary Care Provider + Flaquito Hurd MD Unavailable Reason for Visit * Reason Onset Date Comments Form Completion 08/10/2023 O2 supply physic viviane's order form Encounter Details Date Type Department Care Team (Late st Contact Info) Description 08/10/2023 Telephone [facility] [address] [place] [address] Bhargavi Morel PAC [address] [place] [address] Form Completion (O2 supply physician's order form) Social History Tobacco Use Types Packs/Day Years [...] Telephone Encounter - Xochilt Easley RN - 08/10/2023 1:27 PM ESTABLISHMENT GUIDE Received request for PCP signature on physician's order form from [facility] for this pt. We did not order this pt's O2, spoke to pt and she states it was ordered by Dr Anderson Lyn. Returned form to [facility] with that information. BLISHMENT GUIDE documented in this encounter Plan of Treatment Upcoming Encounters Date Type Department Care Team (Late st Contact Info) Description 10/29/2024 9:30 AM ESTABLISHMENT GUIDE Office Visit [facility] - Family Medicine [facility] [address] [place] [address] Bhargavi Morel PAC [address] [place] [address] documented as of this encounter Visit Diagnoses Not on filedocumented in this encounter Additional Health Concerns Assessment Noted Time PHQ-9 Depression Total Score: 0 10/18/19 23 1:27 PM ESTABLISHMENT GUIDE documented as of this encounter Care Teams Horse Stud Manager Relationship Specialty Start Date End Date Bhargavi Morel PAC [address] [place] [address] PCP - General Physician Admissions Clerk 07/22/23 Flaquito Hurd MD [address] [place] [address] Consulting Physician Pulmonary Disease 11/09/22 documented as of this encounter
--- OUTSIDE RECORDS SUMMARY | 2024-08-30 18:48 | XMS_ITS | Encounter Summary ---
Author Organization [facility] Address [address] [place] [address] Phone Care Team Providers Care Tank Cleaning Supervisor Name Role Phone Bhargavi Morel ARAM Primary Care Provider + Flaquito Hurd MD Unavailable Reason for Visit * Reason Comments Medication Refill Encounter Details Date Type Department Care Team (Late st Contact Info) Description 08/07/2023 Refill [facility] #2 [place] [address] Jovita Bermudez MD [address] [place] [address] Medication Refill Social History Tobacco Use Types [...] Telephone Encounter - Reanna Rios RN - 08/07/2023 10:30 AM CST Medication(s) refilled and signed per [facility] Chronic Medication Refill Standing Order for Pediatricand Adult Patients. Requested Prescriptions Pending Prescriptions Disp Refills ??? Januvia 100 MG Tablet [Pharmacy Med Name: JANUVIA 100MG TABS] 90 Tablet 1 Sig: TAKE ONE TABLET BY MOUTH EVERY DAY DPP-4 Inhibitors Protocol Passed - 08/07/2023 2:06 AM Passed - Visit with relevant provider in past 6 months or upcoming 90 days Recent Visits Date Type Provider Dept 07/11/23 Office Visit Bhargavi Morel PAC [facility] 04/10/23 Office Visit Bhargavi Morel [facility] Showing recent visits within past 182 days and meeting all other requirements Future Appointments Date Type Provider Dept 09/12/23 Appointment Bhargavi Morel PAC [facility] Showing future appointments within next 90 days and meeting all other requirements Passed - HgA1C on record in the past 6 months HGB-A1C Date Value Ref Range Status 05/23/2023 8.5 (H) 4.0 - 6.0 % Final Passed - GFR on record in past 6 months GFR, EST. NONAFRICAN Date Value Ref Range Status 05/23/2023 >60 >=60 Final ??? levothyroxine (SYNTHROID) 75 MCG Tablet [Pharmacy Med Name: LEVOTHYROXINE SODIUM 75MCG TABS] 90Tablet 1 Sig: TAKE ONE TABLET BY MOUTH EVERY DAY Thyroid Hormones Protocol Passed - 08/07/2023 2:06 AM Passed - Visit with relevant provider in past 12 months or upcoming 90 days Recent Visits Date Type Provider Dept 07/11/23 Office Visit Bhargavi Morel PAC [facility] 04/10/23 Office Visit Bhargavi Morel PAC [facility] 10/18/22 Office Visit Bhargavi Morel PAC [facility] Showing recent visits within past 365 days and meeting all other requirements Future Appointments Date Type Provider Dept 09/12/23 Appointment Bhargavi Morel PAC [facility] Showing future appointments within next 90 days and meeting all other requirements Passed - Normal TSH in past 12 months TSH Date Value Ref Range Status 05/23/2023 2.171 0.300 - 5.000 mIU/L Final ERS' COMPENSATION CLAIMS SUPERVISOR documented in this encounter Plan of Treatment Upcoming Encounters Date Type Department Care Team (Late st Contact Info) Description 10/29/2024 9:30 AM WORKERS' COMPENSATION CLAIMS SUPERVISOR Office Visit [facility] - Family Medicine [facility] [address] [place] [address] Bhargavi Morel PAC [address] [place] [address] documented as of this encounter Visit Diagnoses Not on filedocumented in this encounter Additional Health Concerns Assessment Noted Time PHQ-9 Depression Total Score: 0 10/18/19 23 1:27 PM WORKERS' COMPENSATION CLAIMS SUPERVISOR documented as of this encounter Care Teams Tank Cleaning Supervisor Relationship Specialty Start Date End Date Bhargavi Morel PAC [address] [place] [address] PCP - General Physician Ground Services Instructor 07/22/23 Flaquito Hurd MD [address] [place] [address] Consulting Physician Pulmonary Disease 11/09/22 documented as of this encounter
--- OUTSIDE RECORDS SUMMARY | 2024-08-30 18:48 | XMS_ITS | Encounter Summary ---
Author Organization [facility] Address [address] [place] [address] Phone Care Team Providers Care Contract Agent Name Role Phone Briannamarystephen Vania PAC Primary Care Provider + Flaquito Hurd MD Unavailable Reason for Visit * Reason Comments Shortness of Breath Encounter Details Date Type Department Care Team (Late Contact Info) Description 01/16/2024 11:00 AM CDT - 01/16/2024 2:13 PM CDT Emergency [facility] Emergency [address] [place] [address] Lynn Bianchi MD [address] [place] [address] Hypomagnesemia Discharge Disposition: Discharged to home or Selfcare Social History Tobacco Use Types Packs/Day Years Used Date Smoking Tobacco: Former Cigarettes 2 35 Smokeless Tobacco: Never Alcohol Use Standard Drinks/Week Comments Not Currently 0 (1 standard drink = 0.6 oz pur e alcohol) [facility] Utilities Answer Date Recorded In the past 12 months has [employer], gas, oil, or water company threatened to [...] often do you attend chur ch or mormonism services? Never 01/16/2024 Do you belong to any clubs o r organizations such as buddhist groups, unions, fraternal or athletic groups, or [...] Total Score - Questions 1-9 0 09/28 [facility] of Occupat ional [facility] - Occupational Stress Questionnaire Answer [...] in a usp (including now)? No 01/16/2024 Education Answer Date [...] Sign Reading Time Taken Comments Blood Pressure 147/98 01/16/2024 2:00 PM CDT Pulse 124 01/16/2024 2:00 PM CDT Temperature 37 ??C (98.6 ??F) 01/16/2024 11:05 AM CDT Respiratory Rate 19 01/16/2024 2:00 PM CDT Oxygen Saturation 95% 01/16/2024 2:00 PM CDT Inhaled Oxygen Concentration - - Weight 103 kg (227 lb 1.2 oz) 01/16/2024 11:05 A M CDT Height 154.9 cm (5' 1 ) 01/16/2024 11:05 AM CDT Body Mass Index 42.91 01/16/2024 11:05 AM CDT documented in this encounter Functional [...] Green CMA documented as of this encounter Discharge Instructions * Discharge Instructions* Lynn Bianchi MD - 01/16/2024 1:54 PM CDT Follow up with your volunteer recruitment coordinator Take your Lasix regularly Take magnesium supplements as advised documented in this encounter Medications at Time [...] without long-term current use of insulin ([facility]) glDiagnosis: Diabetes type 2 Blood testing frequency: once a day 1 Each 04/10/2023 empagliflozin (JARDIANCE) 25 MG TabletIndications :Type 2 diabetes mellitus without complication, without long-term current use of insulin ([facility]) Take 1 Tablet by mouth daily. 90 Tablet 3 01/21/2024 furosemide (LASIX) 40 MG Tablet Take 0.5 Tablets by mouth daily. 90 Tablet 1 05/04/2021 Glucose Blood StripIndications: Type 2 diabetes mellitus without complication, without long-term current use of insulin ([facility]) Diagnosis: Diabetes type 2 Blood testing frequency: once a day 100 Strip 3 02/23/2021 levothyroxine (SYNTHROID) 75 MCG TabletIndications :Hypothyroidism, unspecified type Take 1 Tablet by mouth daily. 90 Tablet 1 01/16/2024 losartan (COZAAR) 25 MG Tablet 06/13/2021 metoprolol Succinate (TOPROL-XL) 100 MG TABLET SR [...] Wheezing or Cough. 8 g 05/04/2022 4 Cyanocobalamin (VITAMIN B-12 PO) Take by mouth. gabapentin (NEURONTIN) 600 MG TabletIndications :Restless legs syndrome (RLS) TAKE ONE TABLET BY MOUTH EVERY DAY 90 Tablet 1 11/08/2023 4 glipiZIDE (GLUCOTROL) 5 MG Tablet TAKE 1/2 TABLET BY MOUTH DAILY, AFTER BREAKFAST 90 Tablet 1 12/26/2023 4 Magnesium 300 MG Capsule Take 1 Capsule by mouth 2 times daily for 30 days. 60 Capsule 01/16/2024 4 metFORMIN (GLUCOPHAGE) 1000 MG Tablet TAKE ONE TABLET BY MOUTH TWICE A DAY 180 Tablet 1 12/13/2023 4 PARoxetine (PAXIL) 40 MG Tablet TAKE ONE TABLET BY MOUTH EVERY DAY 90 Tablet 1 09/16/2023 4 semaglutide,0.25 or 0.5MG/DOS, (Ozempic, 0.25 or 0.5 MG/DOSE,) 2 MG/3ML Solution Pen-injectorIndic ations:Type 2 diabetes mellitus without complication, without long-term current use of insulin (HCC) 0.5 mg by Subcutaneous route once a week. 3 mL 12/10/2023 4 SITagliptin (Januvia) 100 MG Tablet Take 1 Tablet by mouth daily. 90 Tablet 1 12/06/2023 4 traMADol (ULTRAM) 50 MG TabletIndications :Pain and swelling of right knee TAKE ONE TABLET BY MOUTH EVERY 6 HOURS NEEDED FOR MODERATE OR SEVERE PAIN 28 Tablet 12/26/2023 4 documented as of this encounter ED Notes * Divina Diego RN - 01/16/2024 2:11 PM CDT Patient discharged. Discharge instructions and patient educational material reviewed with patient; questions and concerns addressed; patient verbalizes understanding, using teach back. Patient was given 1 prescription. Patient discharged per wheelchair mode with self as responsible republican. SL D/C'edwith Yoel cath intact. * Divina Diego RN - 01/16/2024 2:05 PM CDT Pt verbalizes that she feels comfortable with discharging home. Pt remains stable on room air. * Kamilla Estrada RN - 01/16/2024 1:[address] Bianchi at bedside. * Lynn Bianchi MD - 01/16/2024 12:42 PM CDTAssociated Order(s): EKG 12 LEAD Chief Complaint Patient presents with Shortness of Breath Patient is a 69-year-old white female with past medical history of chronic atrial fibrillation, chronic CHF, diabetes, hypertension and hypothyroidism presents to ED via wheelchair from Bhargavi Morel's office where she was undergoing a routine examination. Pt stated that she felt short of breath and an EKG was obtained with atrial flutter. Pt reports she often feels short of breath which isn't new for her. Pt placed on pulse ox with an O2 of 81%. Pt placed on O2 NC. Patient states she uses oxygen at night. Pt also states she has had stents in her heart, hx of a-fib, and a paralyzed diaphragm.Pt states she wears O2 at night when she sleeps with her CPAP. Pt states she is supposed to be taking lasix daily, but she has been irregular with her Lasix due to excessive urination. She reports increased swelling of both her legs Shortness of Breath No current facility-administered medications for this encounter. [...] Tablet 1 losartan (COZAAR) 25 MG Tablet Magnesium 300 MG Capsule Take 1 Capsule by mouth 2 times daily for 30 days. 60 Capsule 0 metFORMIN (GLUCOPHAGE) 1000 MG Tablet TAKE ONE [...] min Stress: No Stress Concern Present (01/16/2024) [employer] [facility] - Occupational Stress Questionnaire Feeling of Stress : Only a little Social Integration: Socially Isolated (01/16/2024) Social Connection and Isolation Panel [NHANES] Frequency of Communication with Friends and Family: More than three times a week Frequency of Social Gatherings with Friends and Family: Twice a week Attends Faith Services: Never Active Member of Clubs or [...] Unstable Housing in the Last Year: No BP (!) 134/91 Pulse (!) 126 Temp 98.6 ??F (37 ??C) (Tympanic) Resp 30 Ht 5' 1 (1.549 m) Wt 227 lb 1.2 oz (103 kg) SpO2 94% BMI 42.91 kg/m?? Review of Systems Constitutional: Negative for activity change. HENT: Negative. Respiratory: Positive for shortness of breath. Cardiovascular: Positive for leg swelling. Gastrointestinal: Negative. Genitourinary: Negative. Musculoskeletal: Negative. Neurological: Negative. Hematological: Negative. All other systems reviewed and are negative. Physical Exam Vitals reviewed. Constitutional: Appearance: She is obese. HENT: Head: Normocephalic. Eyes: Pupils: Pupils are equal, round, and reactive to light. Cardiovascular: Rate and Rhythm: Tachycardia present. Rhythm irregular. Pulmonary: Breath sounds: Examination of the right-lower field reveals decreased breath sounds. Examination ofthe left-lower field reveals decreased breath sounds. Decreased breath sounds present. Abdominal: Palpations: Abdomen is soft. Musculoskeletal: General: Normal range of motion. Right lower leg: Edema present. Left lower leg: Edema present. Skin: General: Skin is warm and dry. Capillary Refill: Capillary refill takes less than 2 seconds. Neurological: General: No focal deficit present. Mental Status: She is alert. Psychiatric: Mood and Affect: Mood normal. EKG 12 LEAD Performed by: Lynn Bianchi MD Authorized by: Lynn Bianchi MD Interpretation: Interpretation: abnormal Rate: ECG rate assessment: tachycardic Rhythm: Rhythm: atrial flutter Ectopy: Ectopy: none QRS: QRS axis: Normal ST segments: ST segments: Non-specific T waves: T waves: non-specific Recent Results (from the past 24 hour(s)) POCT UA AUTOMATED W/O MICRO Result Value Ref Range POC UA SPECIFIC GRAVITY 1.015 URINE PH 6.5 5.0 - 9.0 POC URINE LEUKOCYTES 500 /uL (A) Negative Flory/uL POC URINE NITRITE Positive (A) Negative POC URINE PROTEIN 100 mg/dL (A) Negative mg/dL POC URINE GLUCOSE Negative Negative, Norm mg/dL POC URINE KETONE Negative Negative mg/dL POC URINE UROBILINOGEN 1 E.U./dL (mg/dL) Norm, 0.2 E.U./dL (mg/dL), 1 E.U./dL (mg/dL) POC URINE BILIRUBIN Negative Negative mg/dL POC URINE BLOOD INSTRUMENT 50 Anderson/uL (A) Negative Anderson/uL POC URINE COLOR Yellow POC URINE CLARITY Slightly Cloudy CMP (Comprehensive Metabolic Panel) Result Value Ref Range SODIUM 137 136 - 145 mmol/L POTASSIUM 4.1 3.5 - 5.1 mmol/L CHLORIDE 104 98 - 107 mmol/L CO2, VENOUS 24 22 - 30 mmol/L ANION GAP 13.1 <18.0 mmol/L GLUCOSE 99 70 - 99 mg/dL BUN 18 10 - 20 mg/dL CREATININE, BLOOD 0.78 0.60 - 1.00 mg/dL BUN/CREATININE RATIO 23 (H) 12 - 20 ratio TOTAL PROTEIN 7.6 6.3 - 8.2 g/dL ALBUMIN 3.7 3.5 - 5.0 g/dL A/G RATIO 0.9 (L) 1.0 - 2.2 CALCIUM 8.9 8.7 - 10.5 mg/dL T BILI 0.5 0.2 - 1.2 mg/dL SGOT (AST) 22 5 - 34 U/L SGPT (ALT) 17 0 - 55 U/L ALKALINE PHOSPHATASE 85 40 - 150 U/L GFR, ESTIMATED >60 >=60 GFR, EST. >60 >=60 GFR, EST. NONAFRICAN >60 >=60 TROPONIN I, HIGH SENSITIVITY (HSTRP) Result Value Ref Range TROPONIN I, HIGH SENSITIVITY- KOWALSKI 5 <=14 ng/L CBC with Auto Differential Result Value Ref Range WBC 8.11 4.00 - 12.00 10(3)/mcL RBC 4.01 3.80 - 5.30 10(6)/mcL HEMOGLOBIN (HGB) 12.3 12.0 - 15.8 g/dL HEMATOCRIT (HCT) 39.0 36.0 - 47.0 % MCV 97.3 (H) 82.0 - 96.0 fL MCH 30.7 26.0 - 34.0 pg MCHC 31.5 31.0 - 36.0 g/dL PLATELET COUNT 260 140 - 440 10(3)/mcL RDW 13.4 11.8 - 15.5 % MPV 9.1 (L) 9.7 - 12.4 fL NEUTROPHILS 63.5 47.0 - 73.0 % LYMPHOCYTES 22.6 18.0 - 42.0 % MONOCYTES 10.5 4.0 - 12.0 % EOSINOPHILS 2.5 0.0 - 5.0 % BASOPHILS 0.9 0.0 - 1.0 % ABSOLUTE NEUTROPHILS 5.16 1.60 - 7.70 10(3)/mcL ABSOLUTE LYMPHOCYTES 1.83 1.30 - 3.20 10(3)/mcL ABSOLUTE MONOCYTES 0.85 0.20 - 1.00 10(3)/mcL ABSOLUTE EOSINOPHIL 0.20 0.00 - 0.40 10(3)/mcL ABSOLUTE BASOPHILS 0.07 0.00 - 0.10 10(3)/mcL NRBC PER 100 WBC 0 B-Type Natriuretic Peptide (BNP) Result Value Ref Range B TYPE NATRIURETIC PEPTIDE 625 (H) <100 pg/mL Magnesium (Mg) [id number] Result Value Ref Range MAGNESIUM 1.5 (L) 1.6 - 2.6 mg/dL TROPONIN I, HIGH SENSITIVITY (HSTRP) Result Value Ref Range TROPONIN I, HIGH SENSITIVITY- KOWALSKI 3 <=14 ng/L Imaging Results XR CHEST SINGLE VIEW PORTABLE (Final result) Result time 01/16/24 11:50:57 Final result by Ga Choi MD (01/16/24 11:50:57) Impression: IMPRESSION: Increasing interstitial densities may indicate vascular congestion and edema versus peribronchial inflammation. Narrative: EXAM DESCRIPTION: XR CHEST SINGLE VIEW PORTABLE REASON FOR STUDY: SOB x 1 week, hx of cardiac problems TECHNIQUE: Single-view COMPARISON: 06/09/2021 FINDINGS: Central vascularity are somewhat ill-defined. Perihilar interstitial densities have increased from previous and may indicate a degree of vascular congestion and early edema versus peribronchial inflammation. Worsening scarring not excluded. No dense consolidation, effusion or pneumothorax. THIS IS AN ELECTRONICALLY VERIFIED FINAL REPORT 01/16/2024 11:48 AM - Electronically signed by Ga Choi M.D. RB: REBECCA Report ID: [id number] Reading Location: [place] [address] Medical Decision Making Clinical Impression 1. Hypomagnesemia 2. Chronic congestive heart failure, unspecified heart failure type (HCC) 3. Chronic atrial fibrillation (HCC) Disposition: Discharge ED Course as of 01/16/24 1357 SunJanuary 16, 2024 1352 Patient reviewed, she is feeling better. Heart rate is an 80-90. She is still in AFib but better rate control. She was treated with IV magnesium for hypomagnesemia. She was given 1 dose of IV Lasix. Patient advised on the need for regular medical therapy with Lasix that she was advised. She is also advised to follow up with her volunteer recruitment coordinator Dr. Trejo, whom she sees in [place]. She is advised magnesium supplementation on a regular basis. Patient to be discharged home. [KS] ED Course User Index [KS] Lynn Bianchi MD Kalugotla N Shivaram, MD * Divina Diego RN - 01/16/2024 12:41 PM CDT Pt given a cup of water and denies needing anything else at this time. Pt taken off oxygen and [id number] stable. Pt denies any SOB or chest pain. Call light remains within reach. * Deysi Box RN - 01/16/2024 12:35 PM CDT Pt medicated per provider orders. Pt educated on intended effects and side effects of medication and verbalized understanding. Pt able to provide teach- back of education. * Divina Diego RN - 01/16/2024 12:12 PM CDT Pt has purewick placed to collect I&O data. Pt verbalizes understanding the plan of care and denies needing anything at this time. Pt repositioned in bed for comfort. Call light remains within reach. * Divina Diego RN - 01/16/2024 12:08 PM CDT Pt medicated per provider orders. Pt educated on intended effects and side effects of medication and verbalized understanding, able to provide teach back of education. * Lucia Mittal RN - 01/16/2024 11:06 AM CDT Pt presents to ED via wheelchair from Bhargavi Morel's office for a routine visit. Pt stated that she felt short of breath and an EKG was obtained with atrial flutter. Pt transferred here by wheelchair. Pt reports she often feels short of breath which isn't new for her. Pt placed on pulse ox with anO2 of 81%. Pt placed on O2 NC. Pt also states she has had stents in her heart, hx of a- fib, and a paralyzed diaphragm. Pt states she wears O2 at night when she sleeps with her CPAP. Pt states she is supposed to be taking lasix daily, but she has only been taking it a couple times a week due to it making her pee a lot. Pt has swelling to bilateral legs. EKG obtained. IV access being established. Pt updated on plan of care. No distress noted. documented in this encounter Miscellaneous Notes * PatientPass Patient Instructions - Lynn Bianchi MD - 01/16/2024 1:56 PM CDT Images from the original note were not included. Patient Education Table of Contents Atrial Fibrillation To view videos and all your education online visit, [email or web address] or scan this QR code with your smartphone. Access to this content will in one year. Atrial Fibrillation Atrial fibrillation (AFib) is a type of irregular or rapid heartbeat (arrhythmia). In AFib, the toppart of the heart (atria) beats in an irregular pattern. This makes the heart unable to pump blood normally and effectively. The goal of treatment is to prevent blood clots from forming, control your heart rate, or restore your heartbeat to a normal rhythm. If this condition is not treated, it can cause serious problems, such as a weakened heart muscle (cardiomyopathy) or a stroke. What are the causes? This condition is often caused by medical conditions that damage the heart's electrical system. These include: High blood pressure (hypertension). This is the most common cause. Certain heart problems or conditions, such as heart failure, coronary artery disease, heart valve problems, or heart surgery. Diabetes. Overactive thyroid (hyperthyroidism). Chronic kidney disease. Certain lung conditions, such as emphysema, pneumonia, or COPD. Obstructive sleep apnea. In some cases, the cause of this condition is not known. What increases the risk? This condition is more likely to develop in: Older adults. Athletes who do endurance exercise. People who have a family history of AFib. Males. People who are . People who are obese. People who smoke or misuse alcohol. What are the signs or symptoms? Symptoms of this condition include: Fast or irregular heartbeats (palpitations). Discomfort or pain in your chest. Shortness of breath. Sudden light-headedness or weakness. Tiring easily during exercise or activity. Syncope (fainting). Sweating. In some cases, there are no symptoms. How is this diagnosed? Your health care provider may detect AFib when taking your pulse. If detected, this condition may be diagnosed with: An electrocardiogram (ECG) to check electrical signals of the heart. An ambulatory time study technician to record your heart's activity for a few days. A transthoracic echocardiogram (TTE) to create pictures of your heart. A transesophageal echocardiogram (RANDALL) to create even clearer pictures of your heart. A stress test to check your blood supply while you exercise. Imaging tests, such as a CT scan or chest X-ray. Blood tests. How is this treated? Treatment depends on underlying conditions and how you feel when you get AFib. This condition may be treated with: Medicines to prevent blood clots or to treat heart rate or heart rhythm problems. Electrical cardioversion to reset the heart's rhythm. A pacemaker to correct abnormal heart rhythm. Ablation to remove the heart tissue that sends abnormal signals. Left atrial appendage closure to seal the area where blood clots can form. In some cases, underlying conditions will be treated. Follow these instructions at home: Medicines Take over-the counter and prescription medicines only as told by your provider. Do not take any new medicines without talking to your provider. If you are taking blood thinners: ? Talk with your provider before taking aspirin or NSAIDs. These medicines can raise your risk of bleeding. ? Take your medicines as told. Take them at the same time each day. ? Do not do things that could hurt or bruise you. Be careful to avoid falls. ? Wear an alert bracelet or carry a card that says that you take blood thinners. Lifestyle Do not use any products that contain nicotine or tobacco. These products include cigarettes, chewing tobacco, and vaping devices, such as e-cigarettes. If you need help quitting, ask your provider. Eat heart-healthy foods. Talk with a food expert (dietitian) to make an eating plan that is right for you. Exercise regularly as told by your provider. Do not drink alcohol. Lose weight if you are overweight. General instructions If you have obstructive sleep apnea, manage your condition as told by your provider. Do not use diet pills unless your provider approves. Diet pills can make heart problems worse. Keep all follow-up visits. Your provider will want to check your heart rate and rhythm regularly. Contact a health care provider if: You notice a change in the rate, rhythm, or strength of your heartbeat. You are taking a blood thinner and you notice more bruising. You tire more easily when you exercise or do heavy work. You have a sudden change in weight. Get help right away if: You have chest pain. You have trouble breathing. You have side effects of blood thinners, such as blood in your vomit, poop (stool), or pee (urine),or bleeding that does not stop. You have any symptoms of a stroke. BE FAST is an easy way to remember the main warning signs of astroke: ? B - Balance. Signs are dizziness, sudden trouble walking, or loss of balance. ? E - Eyes. Signs are trouble seeing or a sudden change in vision. ? F - Face. Signs are sudden weakness or numbness of the face, or the face or eyelid drooping on one side. ? A - Arms. Signs are weakness or numbness in an arm. This happens suddenly and usually on one sideof the body. ? S - Speech.Signs are sudden trouble speaking, slurred speech, or trouble understanding what people say. ? T - Time. Time to call emergency services. Write down what time symptoms started. Other signs of a stroke, such as: ? A sudden, severe headache with no known cause. ? Nausea or vomiting. ? Seizure. These symptoms may be an emergency. Get [...] care provider. Document Released: 2006-08-13 Document Updated: 2023-05-02 Document Reviewed: 2023-05-02 [employer] Patient Education ? 2023 [employer]. * PatientPass Patient Instructions - Lynn Bianchi MD - 01/16/2024 1:55 PM CDT Images from the original note were not included. Patient Education Table of Contents Hypomagnesemia To view videos and all your education online visit, [email or web address] or scan this QR code with your smartphone. Access to this content will in one year. Hypomagnesemia Hypomagnesemia is a condition in which the level of magnesium in the blood is too low. Magnesium ami mineral that is found in many foods. It is used in many different processes in the body. Hypomagnesemia can affect every organ in the body. In severe cases, it can cause life-threatening problems. What are the causes? This condition may be caused by: Not getting enough magnesium in your diet or not having enough healthy foods to eat (malnutrition). Problems with magnesium absorption in the intestines. Dehydration. Excessive use of alcohol. Vomiting. Severe or long-term (chronic) diarrhea. Some medicines, including medicines that make you urinate more often (diuretics). Certain diseases, such as kidney disease, diabetes, celiac disease, and overactive thyroid. What are the signs or symptoms? Symptoms of this condition include: Loss of appetite, nausea, and vomiting. Involuntary shaking or trembling of a body part (tremor). Muscle weakness or tingling in the arms and legs. Sudden tightening of muscles (muscle spasms). Confusion. Psychiatric issues, such as: ? Depression and irritability. ? Psychosis. A feeling of fluttering of the heart (palpitations). Seizures. These symptoms are more severe if magnesium levels drop suddenly. How is this diagnosed? This condition may be diagnosed based on: Your symptoms and medical history. A physical exam. Blood and urine tests. How is this treated? Treatment depends on the cause and the severity of the condition. It may be treated by: Taking a magnesium supplement. This can be taken in pill form. If the condition is severe, magnesium is usually given through an IV. Making changes to your diet. You may be directed to eat foods that have a lot of magnesium, such asgreen leafy vegetables, peas, beans, and nuts. Not drinking alcohol. If you are struggling not to drink, ask your health care provider for help. Follow these instructions at home: Eating and drinking Make sure that your diet includes foods with magnesium. Foods that have a lot of magnesium in them include: ? Green leafy vegetables, such as spinach and broccoli. ? Beans and peas. ? Nuts and seeds, such as almonds and sunflower seeds. ? Whole grains, such as whole grain bread and fortified cereals. Drink fluids that contain salts and minerals (electrolytes), such as sports drinks, when you are active. Do not drink alcohol. General instructions Take viot-hzj-lwpknby and prescription medicines only as told by your health care provider. Take magnesium supplements as directed if your health care provider tells you to take them. Have your magnesium levels monitored as told by your health care provider. Keep all follow-up visits. This is important. Contact a health care provider if: You get worse instead of better. Your symptoms return. Get help right away if: You develop severe muscle weakness. You have trouble breathing. You feel that your heart is racing. These symptoms may represent a serious problem that is an emergency. Do not wait to see if the symptoms will go away. Get medical help right away. Call your local emergency services (911 in the [place] Do not drive yourself to the hospital. Summary Hypomagnesemia is a condition in which the level of magnesium in the blood is too low. Hypomagnesemia can affect every organ in the body. Treatment may include eating more foods that contain magnesium, taking magnesium supplements, and not drinking alcohol. Have your magnesium levels monitored as told by your health care provider. This information is not intended to replace advice given to you by your health care provider. Make sure you discuss any questions you have with your health care provider. Document Released: 2006-05-09 Document Updated: 2022-01-10 Document Reviewed: 2022-01-10 [employer] Patient Education ? 2023 [employer] documented in this encounter Plan of Treatment Upcoming Encounters Date Type Department Care Team (Late st Contact Info) Description 10/29/2024 9:30 AM RADIOLOGY CLERK Office Visit [facility] [address] [place] [address] Bhargavi Morel, PAC [address] [place] [address] documented as of this encounter Procedures Procedure Name Priority Date/Time Associated Diagnosis Comments EKG 12 LEAD STAT 01/16/2024 12:48 PM CDT TROPONIN I, HIGH SENSITIVITY (HSTRP) STAT 01/16/2024 12:35 PM CDT XR CHEST SINGLE VIEW PORTABLE STAT 01/16/2024 11:34 AM CDT HEMOGLOBIN A1C W/ ESTIMATED GLUCOSE STAT 01/16/2024 11:25 AM CDT Type 2 diabetes mellitus without complication, without long-term current use of insulin (HCC) THYROID STIMULATING HORMONE (TSH) STAT 01/16/2024 11:25 AM CDT Hypothyroidism, unspecified type TROPONIN I, HIGH SENSITIVITY (HSTRP) STAT 01/16/2024 11:23 AM CDT CBC WITH AUTO DIFFERENTIAL STAT 01/16/2024 11:23 AM CDT MAGNESIUM (MG) STAT 01/16/2024 11:23 AM CDT CMP (COMPREHENSIVE METABOLIC PANEL) STAT 01/16/2024 11:23 AM CDT COMPLETE BLOOD COUNT (CBC) WITH DIFF STAT 01/16/2024 11:23 AM CDT B-TYPE NATRIURETIC PEPTIDE (BNP) STAT 01/16/2024 11:23 AM CDT EKG 12 LEAD STAT 01/16/2024 11:04 AM CDT documented in this encounter Results * EKG 12 LEAD (01/16/2024 12:48 PM CDT) Only the most recent of2 resultswithin the time period is included. Ventricular Rate 101 BPM EXTERNAL EKG Atrial Rate 253 BPM EXTERNAL EKG QRS Duration 84 ms EXTERNAL EKG Q-T Duration 308 ms EXTERNAL EKG QTC CALCULATION 399 ms EXTERNAL EKG P [place] 66 degrees EXTERNAL EKG R [place] 67 degrees EXTERNAL EKG T [place] 237 degrees EXTERNAL EKG 01/16/2024 12:4 8 PM CDT Impressions EXTERNAL EKG - 01/18/2024 12:33 PM CDT Atrial flutter with variable AV block ST & T wave abnormality, consider lateral ischemia Abnormal ECG When compared with ECG of 16-JAN-2024 11:04 No significant change was found Confirmed by Bijan Sanon ([id number]) on 01/18/2024 12:33:09 PM Narrative Procedure Note Bijan Sanon MD - 01/18/2024 IMPRESSION: Atrial flutter with variable AV block ST & T wave abnormality, consider lateral ischemia Abnormal ECG When compared with ECG of 16-JAN-2024 11:04 No significant change was found Confirmed by Bijan Sanon ([id number]) on 01/18/2024 12:33:09 PM us Lynn Bianchi MD IMG ECG ORDERABLES Final Result EXTERNAL EKG * TROPONIN I, HIGH SENSITIVITY (HSTRP) (01/16/2024 12:35 PM CDT) Only the most recent of2 resultswithin the time period is included. TROPONIN I, HIGH SENSITIVITY- [place] 3 <=14 ng/L 01/16/2024 1:18 PM CDT [facility] Comment: High-sensitivity troponin I results are reported in ng/L making the result appear to be 1,000 times higher than the contemporary troponin I value which is reported in ng/ml. Results from [place]. Blood Venipuncture / Unknown 01/16/2024 12:35 PM CDT 01/16/2024 12:48 PM CDT us Lynn Bianchi MD CHEMISTRY ORDERABLES Fin al Result [facility] [address] [place] [address] * XR CHEST SINGLE VIEW PORTABLE (01/16/2024 11:34 AM CDT) Anatomical Region Laterality Modality Chest N/A Digital Radiogra phy 01/16/2024 11:4 8 AM CDT Impressions 01/16/2024 11:50 AM CDT IMPRESSION: Increasing interstitial densities may indicate vascular congestion and edema versus peribronchial inflammation. Narrative 01/16/2024 11:50 AM CDT EXAM DESCRIPTION: ?? XR CHEST SINGLE VIEW PORTABLE REASON FOR STUDY: ?? SOB x 1 week, hx of cardiac problems ?? TECHNIQUE: ??Single-view COMPARISON: ??06/09/2021 FINDINGS: ??Central vascularity are somewhat ill-defined. ??Perihilar interstitial densities have increased from previous and may indicate a degree of vascular congestion and early edema versus peribronchial inflammation. ??Worsening scarring not excluded. No dense consolidation, effusion or pneumothorax. THIS IS AN ELECTRONICALLY VERIFIED FINAL REPORT 01/16/2024 11:48 AM - Electronically signed by ??Ga Choi M.D. RB: REBECCA D: ??01/16/2024 11:48 AM T: ??01/16/2024 11:48 AM Report ID: [id number] Reading Location: ??[id number] Procedure Note Ga Choi MD - 01/16/2024 EXAM DESCRIPTION: XR CHEST SINGLE VIEW PORTABLE REASON FOR STUDY: SOB x 1 week, hx of cardiac problems TECHNIQUE: Single-view COMPARISON: 06/09/2021 FINDINGS: Central vascularity are somewhat ill-defined. Perihilar interstitial densities have increased from previous and may indicate a degree of vascular congestion and early edema versus peribronchial inflammation. Worsening scarring not excluded. No dense consolidation, effusion or pneumothorax. THIS IS AN ELECTRONICALLY VERIFIED FINAL REPORT 01/16/2024 11:48 AM - Electronically signed by Ga Choi M.D. RB: REBECCA Report ID: [id number] Reading Location: [id number] IMPRESSION: Increasing interstitial densities may indicate vascular congestion and edema versus peribronchial inflammation. us Lynn Bianchi MD IMG DIAGNOSTIC ORDERABLE S Final Result * (ABNORMAL) Hemoglobin A1C w/ Estimated Glucose (01/16/2024 11:25 AM CDT) HGB-A1C 7.7(H) 4.0 - 6.0 % 01/18/2024 1:41 PM CDT [facility] Est Average Glucose 174.3 mg/dL 01/18/2024 1:41 PM CDT [facility] Blood Venipuncture / Unknown 01/16/2024 11:25 AM CDT 01/18/2024 1:23 PM CDT Narrative [facility] - 01/18/2024 1:41 PM CDT HEMOGLOBIN A1C: DIABETIC PATIENTS: WELL-CONTROLLED: ?? 6.2 - 7.0 INTERMEDIATE WELL-CONTROLLED: ??7.0 - 9.0 POORLY-CONTROLLED: ??>9.0 us Bhargavi Morel PAC CHEMISTRY ORDERABLES Fin al Result [facility] [address] [place] [address] * TSH today (TSHT) (01/16/2024 11:25 AM CDT) TSH 1.831 0.300 - 5.000 mIU/L 01/18/2024 2:02 PM CDT [facility] Blood Venipuncture / Unknown 01/16/2024 11:25 AM CDT 01/18/2024 1:23 PM CDT Bhargavi CHIU CHEMISTRY ORDERABLES Fin al Result [facility] [address] [place] [address] * (ABNORMAL) Magnesium (Mg) [id number] (01/16/2024 11:23 AM CDT) MAGNESIUM 1.5(L) 1.6 - 2.6 mg/dL 01/16/2024 12:12 PM CDT [facility] Blood Venipuncture / Unknown 01/16/2024 11:23 AM CDT 01/16/2024 11:35 AM CDT Lynn Bianchi MD CHEMISTRY ORDERABLES Fin al Result Performing Organization Address City/[facility]/ZIP Co de Phone Number [facility] [address] [place] [address] * (ABNORMAL) B-Type Natriuretic Peptide (BNP) (01/16/2024 11:23 AM CDT) B TYPE NATRIURETIC PEPTIDE 625(H) <100 pg/mL 01/16/2024 12:38 PM CDT [facility] Blood Venipuncture / Unknown 01/16/2024 11:23 AM CDT 01/16/2024 11:35 AM CDT us Lynn Bianchi MD CHEMISTRY ORDERABLES Fin al Result [facility] [address] [place] [address] * (ABNORMAL) CBC with Auto Differential (01/16/2024 11:23 AM CDT) WBC 8.11 4.00 - 12.00 10(3)/mcL 01/16/2024 11:38 AM CDT [facility] RBC 4.01 3.80 - 5.30 10(6)/mcL 01/16/2024 11:38 AM CDT [facility] HEMOGLOBIN (HGB) 12.3 12.0 - 15.8 g/dL 01/16/2024 11:38 AM CDT [facility] HEMATOCRIT (HCT) 39.0 36.0 - 47.0 % 01/16/2024 11:38 AM CDT [facility] MCV 97.3(H) 82.0 - 96.0 fL 01/16/2024 11:38 AM CDT [facility] MCH 30.7 26.0 - 34.0 pg 01/16/2024 11:38 AM CDT [facility] MCHC 31.5 31.0 - 36.0 g/dL 01/16/2024 11:38 AM CDT [facility] PLATELET COUNT 260 140 - 440 10(3)/[facility] 01/16/2024 11:38 AM CDT [facility] RDW 13.4 11.8 - 15.5 % 01/16/2024 11:38 AM CDT [facility] MPV 9.1(L) 9.7 - 12.4 fL 01/16/2024 11:38 AM CDT [facility] NEUTROPHILS 63.5 47.0 - 73.0 % 01/16/2024 11:38 AM CDT [facility] LYMPHOCYTES 22.6 18.0 - 42.0 % 01/16/2024 11:38 AM CDT [facility] MONOCYTES 10.5 4.0 - 12.0 % 01/16/2024 11:38 AM CDT [facility] EOSINOPHILS 2.5 0.0 - 5.0 % 01/16/2024 11:38 AM CDT [facility] BASOPHILS 0.9 0.0 - 1.0 % 01/16/2024 11:38 AM CDT [facility] ABSOLUTE NEUTROPHILS 5.16 1.60 - 7.70 10(3)/[facility] 01/16/2024 11:38 AM CDT [facility] ABSOLUTE LYMPHOCYTES 1.83 1.30 - 3.20 10(3)/[facility] 01/16/2024 11:38 AM CDT [facility] ABSOLUTE MONOCYTES 0.85 0.20 - 1.00 10(3)/[facility] 01/16/2024 11:38 AM CDT [facility] ABSOLUTE EOSINOPHIL 0.20 0.00 - 0.40 10(3)/[facility] 01/16/2024 11:38 AM CDT [facility] ABSOLUTE BASOPHILS 0.07 0.00 - 0.10 10(3)/[facility] 01/16/2024 11:38 AM CDT [facility] NRBC PER 100 WBC 0 01/16/20 11:38 AM CDT [facility] Blood Venipuncture / Unknown 01/16/2024 11:23 AM CDT 01/16/2024 11:35 AM CDT us Lynn Bianchi MD HEMATOLOGY ORDERABLES Fi nal Result [facility] [address] [place] [address] * (ABNORMAL) CMP (Comprehensive Metabolic Panel) (01/16/2024 11:23 AM CDT) SODIUM 137 136 - 145 mmol/L 01/16/2024 12:12 PM CDT [facility] POTASSIUM 4.1 3.5 - 5.1 mmol/L 01/16/2024 12:12 PM CDT [facility] CHLORIDE 104 98 - 107 mmol/L 01/16/2024 12:12 PM CDT [facility] CO2, VENOUS 24 22 - 30 mmol/L 01/16/2024 12:12 PM CDT [facility] ANION GAP 13.1 <18.0 mmol/L 01/16/2024 12:12 PM CDT [facility] GLUCOSE 99 70 - 99 mg/dL 01/16/2024 12:12 PM CDT [facility] BUN 18 10 - 20 mg/dL 01/16/2024 12:12 PM CDT [facility] CREATININE, BLOOD 0.78 0.60 - 1.00 mg/dL 01/16/2024 12:12 PM CDT [facility] BUN/CREATININE RATIO 23(H) 12 - 20 ratio 01/16/2024 12:12 PM CDT [facility] TOTAL PROTEIN 7.6 6.3 - 8.2 g/dL 01/16/2024 12:12 PM CDT [facility] ALBUMIN 3.7 3.5 - 5.0 g/dL 01/16/2024 12:12 PM CDT [facility] A/G RATIO 0.9(L) 1.0 - 2.2 01/16/2024 12:12 PM CDT [facility] CALCIUM 8.9 8.7 - 10.5 mg/dL 01/16/2024 12:12 PM CDT [facility] T BILI 0.5 0.2 - 1.2 mg/dL 01/16/2024 12:12 PM CDT [facility] SGOT (AST) 22 5 - 34 U/L 01/16/2024 12:12 PM CDT [facility] SGPT (ALT) 17 0 - 55 U/L 01/16/2024 12:12 PM CDT [facility] ALKALINE PHOSPHATASE 85 40 - 150 U/L 01/16/2024 12:12 PM CDT [facility] GFR, ESTIMATED >60 >=60 01/16/2024 12:12 PM CDT [facility] Comment: Creatinine Clearance is the preferred criteria for selecting drug dose adjustments in renally impaired patients. ??The GFR is provided as additional pertinent clinical information. GFR is reported in mL/min/1.73 sq m. Calculation based on the Chronic Kidney Disease Epidemiology Collaboration (CKD- EPI) equation refit without adjustment for race. GFR, EST. >60 >=60 024 12:12 PM CDT [facility] GFR, EST. NONAFRICAN >60 >=60 01/16/2024 12:12 PM CDT [facility] Blood Venipuncture / Unknown 01/16/2024 11:23 AM CDT 01/16/2024 11:35 AM CDT us Lynn Bianchi MD CHEMISTRY ORDERABLES Fin al Result Performing Organization Address City/State/[facility] Co de Phone Number [facility] [address] [place] [address] documented in this encounter Visit Diagnoses Diagnosis Hypomagnesemia- Primary Disorders of magnesium metabolism Chronic congestive heart failure, unspecified heart failure type (HCC) Chronic atrial fibrillation (HCC) Atrial fibrillation Hypothyroidism, unspecified type Type 2 diabetes mellitus without complication, without long-term current use of insulin (HCC) documented in this encounter Administered Medications Inactive Administered Medications - up to 3 most recent administrations Medication Order MAR Action Action Date Dose Rate Site furosemide (LASIX) injection 40 mg 40 mg, Intravenous, ONCE, 1 dose, On Sun01/16/24 at 1230 Given 01/16/2024 12:09 PM CDT 40 mg magnesium sulfate premix 2 g 2 g, Intravenous, ONCE, 1 dose, On Sun01/16/24 at 1300, Administer over 1 Hours New Bag 01/16/2024 12:34 PM CDT 2 g 50 mL/ hr documented in this encounter Active and Recently Administered Medications Times are shown in CDT. Scheduled Medication Order 01/14/2024 01/15/2024 01/16/2024 furosemide (LASIX) injection 40 mg (COMPLETED) 40 mg, Intravenous, ONCE, 1 dose, On Sun01/16/24 at 1230 1209 (Given - Provid er: Divina Diego, JUSTICE) magnesium sulfate premix 2 g (COMPLETED) 2 g, Intravenous, ONCE, 1 dose, On Sun01/16/24 at 1300, Administer over 1 Hours 1234 (New Bag - Prov ider: Deysi Box RN)1321 (Stopped - Provider: Divina Diego RN) documented in this encounter Additional Health Concerns Assessment Noted Time PHQ-9 Depression Total Score: 0 10/17/19 24 12:52 PM RADIOLOGY CLERK documented as of this encounter Care Teams Contract Agent Relationship Specialty Start Date End Date Bhargavi Morel PAC [address] [place] [address] PCP - General Physician Human Resources Specialist 07/22/23 Flaquito Hurd MD [address] [place] [address] Consulting Physician Pulmonary Disease 11/09/22 documented as of this encounter
--- OUTSIDE RECORDS SUMMARY | 2024-08-30 18:48 | XMS_ITS | Encounter Summary ---
Author Organization [facility] Address [address] [place] [address] Phone Care Team Providers Care Auto Servicer Name Role Phone Bhargavi Morel PAC Primary Care Provider + Flaquito Hurd MD Unavailable Encounter Details Date Type Department Care Team (Late st Contact Info) Description 09/07/2023 Telephone [facility] [address] [place] [address] Bhargavi Morel, PAC [address] [place] [address] Social History Tobacco Use Types Packs/Day Years [...] encounter Miscellaneous Notes * Telephone Encounter - Darya Garcia - 09/07/2023 9:15 AM CST Symptom: Urination Pain Outcome: Transfer to aerophysics engineer queue Reason: This is the only possible outcome for this symptom The caller accepted this outcome MIXER documented in this encounter Plan of Treatment Upcoming Encounters Date Type Department Care Team (Late st Contact Info) Description 10/29/2024 9:30 AM FRIT MIXER Office Visit [facility] - [facility] [address] [place] [address] Bhargavi Morel PAC [address] [place] [address] documented as of this encounter Visit Diagnoses Not on filedocumented in this encounter Additional Health Concerns Assessment Noted Time PHQ-9 Depression Total Score: 0 10/18/19 23 1:27 PM FRIT MIXER documented as of this encounter Care Teams Auto Servicer Relationship Specialty Start Date End Date Bhargavi Morel PAC [address] [place] [address] PCP - General Physician Station Examiner 07/22/23 Flaquito Hurd MD [address] [place] [address] Consulting Physician Pulmonary Disease 11/09/22 documented as of this encounter
--- OUTSIDE RECORDS SUMMARY | 2024-08-30 18:48 | XMS_ITS | Encounter Summary ---
Author Organization [facility] Address [address] [place] [address] Phone Care Team Providers Care Finance Attorney Name Role Phone Bhargavi Morel Primary Care Provider + Flaquito Hurd MD Unavailable Wes Petty MD Unavailable Reason for Visit * Reason Comments Medication Refill Encounter Details Date Type Department Care Team (Late st Contact Info) Description 02/04/2024 Refill [facility] [address] [place] [address] Bhargavi Morel PAC [address] [place] [address] Medication Refill Social History Tobacco Use Types Packs/Day Years Used Date Smoking Tobacco: Former Cigarettes 2 35 Smokeless Tobacco: Never Alcohol Use Standard Drinks/Week Comments Not Currently 0 (1 standard drink = 0.6 oz pur e alcohol) [facility] Utilities Answer Date Recorded In the past 12 months has [employer] electric, gas, oil, or water company threatened [...] Total Score - Questions 1-9 0 09/28 [facility] - Occupational Stress [...] Telephone Encounter - Reanna Rios RN - 02/04/2024 3:39 PM CDT PDMP 12/26/23 - 7 days Medication failed the protocol, provider to review and approve the medication order if appropriate. Requested Prescriptions Pending Prescriptions Disp Refills traMADol (ULTRAM) 50 MG Tablet [Pharmacy Med Name: TRAMADOL HCL 50MG TABS] 28 Tablet 0 Sig: TAKE ONE TABLET BY MOUTH EVERY 6 HOURS NEEDED FOR MODERATE OR SEVERE PAIN Not Delegated - Opioid Agonists Protocol Failed - 02/04/2024 2:46 PM Failed - This refill cannot be delegated Passed - Visit with relevant provider in past 12 months or upcoming 90 days Recent Visits Date Type Provider Dept 01/16/24 Office Visit Bhargavi Morel PAC [facility] 10/17/23 Office Visit Bhargavi Morel PAC [facility] 07/11/23 Office Visit Bhargavi Morel PAC [facility] 04/10/23 Office Visit Bhargavi Morel PAC [facility] Showing recent visits within past 365 days and meeting all other requirements Future Appointments Date Type Provider Dept 04/23/24 Appointment Bhargavi Morel PAC [facility] Showing future appointments within next 90 days and meeting all other requirements documented in this encounter Plan of Treatment Upcoming Encounters Date Type Department Care Team (Late st Contact Info) Description 10/29/2024 9:30 AM JEWEL SAWYER Office Visit [facility] - Family [facility] [address] [place] [address] Bhargavi Morel PAC [address] [place] [address] documented as of this encounter Visit Diagnoses Diagnosis Pain and swelling of right knee documented in this encounter Additional Health Concerns Assessment Noted Time PHQ-9 Depression Total Score: 0 10/17/19 24 12:52 PM JEWEL SAWYER documented as of this encounter Care Teams Finance Attorney Relationship Specialty Start Date End Date Bhargavi Morel PAC [address] [place] [address] PCP - General Physician Physician Vice President 07/22/23 Flaquito Hurd MD [address] [place] [address] Consulting Physician Pulmonary Disease 11/09/22 Wes Petty MD [address] [id number] Consulting Physician Urology 01/18/24 documented as of this encounter
--- OUTSIDE RECORDS SUMMARY | 2024-08-30 18:49 | XMS_ITS | Encounter Summary ---
Author Organization [facility] Address [address] [place] [address] Phone Care Team Providers Care Hospice Volunteer Name Role Phone Jovita Bermudez MD Primary Care Provider [phone] Flaquito Hurd MD Unavailable Reason for Visit * Reason Comments Medication Refill Encounter Details Date Type Department Care Team (Late st Contact Info) Description 12/18/2022 Refill [facility] [address] [place] [address] Jovita Bermudez MD [address] [place] [address] Medication Refill Social History Tobacco Use Types Packs/Day Years Used Date Smoking Tobacco: Former Cigarettes 2 35 Smokeless Tobacco: Never Alcohol Use Standard Drinks/Week Comments Not Currently 0 (1 standard drink = 0.6 oz pur e alcohol) PHQ-2 Answer Date Recorded Total Score - Questions 1-9 0 09/28 Sexually Active Control Partners Comments Not Currently Comments No Sex and Gender Information Value Date Recorded Sex Assigned at Female 04/09/2023 4:28 PM CDT Legal Sex Female 7:50 PM CDT Gender Identity Female 04/09/2023 4:28 PM CDT Sexual Orientation Not on file documented as of this encounter Miscellaneous Notes * Telephone Encounter - Irena Gross RN - 12/18/2022 10:36 AM CDT Medication(s) [facility]illed and [facility] Medication Refill Standing Order for Pediatricand Adult Patients. Requested Prescriptions Pending Prescriptions Disp Refills ??? Jardiance 25 MG Tablet [Pharmacy Med Name: JARDIANCE 25MG TABS] 30 Tablet 2 Sig: TAKE ONE TABLET BY MOUTH EVERY DAY SGLT2 Inhibitors Protocol Passed - 12/18/2022 9:17 AM Passed - Visit with relevant provider in past 6 months or upcoming 90 days Recent Visits Date Type Provider Dept 10/18/22 Office Visit [facility] Show[facility] recent visits within past 182 days and meeting all other requirements Future Appointments Date Type Provider Dept 01/17/23 Appointment Jovita Bermudez MD [facility] Showing future appointments within next 90 days and meeting all other requirements Passed - HgA1C on record in past 6 months HGB-A1C Date Value Ref Range Status 10/18/2022 8.2 (H) 4.0 - 6.0 % Final Passed - GFR greater than or equal to 30 in past 6 months GFR, EST. NONAFRICAN Date Value Ref Range Status 10/18/2022 >60 >=60 Final documented in this encounter Plan of Treatment Upcoming Encounters Date Type Department Care Team (Late st Contact Info) Description 10/29/2024 9:30 AM MATHEMATICIAN Office Visit [facility] Medical [facility] - Family Medicine [facility] [address] [place] [address] Bhargavi Morel PAC [address] [place] [address] documented as of this encounter Visit Diagnoses Not on filedocumented in this encounter Additional Health Concerns Assessment Noted Time PHQ-9 Depression Total Score: 0 10/18/19 23 1:27 PM MATHEMATICIAN documented as of this encounter Care Teams Hospice Volunteer Relationship Specialty Start Date End Date Jovita Bermudez MD [address] [place] [address] PCP - General Family Medicine 11/30/20 07/21/23 Flaquito Hurd MD [address] [place] [address] Consulting Physician Pulmonary Disease 11/09/22 documented as of this encounter
--- OUTSIDE RECORDS SUMMARY | 2024-08-30 18:49 | XMS_ITS | Encounter Summary ---
Author Organization [facility] Address [address] [place] [address] Phone Care Team Providers Care Cracking Unit Operator Name Role Phone Jovita Bermudez MD Primary Care Provider [phone]- [phone] Bhargavi Morel Primary Care Provider + Flaquito Hurd MD Unavailable Wes Petty MD Unavailable Reason for Visit * Reason Comments Medication Refill Encounter Details Date Type Department Care Team (Late st Contact Info) Description 05/19/2023 Refill [facility] [address] [place] [address] Bhargavi Morel PAC [address] [place] [address] Medication Refill Social History Tobacco [...] Telephone Encounter - Reanna Rios RN - 05/21/2023 7:09 AM CDT Images from the original note were not included. May 18, 2023 Me DS ?9:29 AM Note ?? Per pharmacy, this was sold to patient on 04/13/23. They are sorry for the duplicate requests and will inactivate in system so we will stop getting requests. documented in this encounter Plan of Treatment Upcoming Encounters Date Type Department Care Team (Late st Contact Info) Description 10/29/2024 9:30 AM BOOKKEEPER RECEPTIONIST Office Visit [facility] [address] [place] [address] Bhargavi Morel PAC [address] [place] [address] documented as of this encounter Visit Diagnoses Diagnosis Type 2 diabetes mellitus without complication, without long-term current use of insulin (HCC) documented in this encounter Additional Health Concerns Assessment Noted Time PHQ-9 Depression Total Score: 0 10/18/19 23 1:27 PM BOOKKEEPER RECEPTIONIST documented as of this encounter Care Teams Cracking Unit Operator Relationship Specialty Start Date End Date Jovita Bermudez MD [address] [place] [address] PCP - General Family Medicine 11/30/20 07/21/23 Bhargavi Morel PAC [address] [place] [address] PCP - General Physician Network Operations Manager 07/22/23 Flaquito Hurd MD [address] [place] [address] Consulting Physician Pulmonary Disease 11/09/22 Wes Petty MD [address] [place] [address], [address] [address] Consulting Physician Urology 01/18/24 documented as of this encounter
--- OUTSIDE RECORDS SUMMARY | 2024-08-30 18:49 | XMS_ITS | Encounter Summary ---
Author Organization [facility] Address [address] [place] [address] Phone Care Team Providers Care Coating Supervisor Name Role Phone Jovita Bermudez MD Primary Care Provider [phone]- [phone] Bhargavi Morel Primary Care Provider + Flaquito Hurd MD Unavailable Wes Petty MD Unavailable Reason for Visit * Reason Comments Medication Refill Encounter Details Date Type Department Care Team (Late st Contact Info) Description 05/18/2023 Refill [facility] [address] [place] [address] Bhargavi Morel PAC [address] [place] [address] Medication Refill Social History Tobacco [...] Telephone Encounter - Reanna Rios RN - 05/18/2023 9:29 AM CDT Per pharmacy, this was sold to patient on 04/13/23. They are sorry for the duplicate requests and will inactivate in system so we will stop getting requests. documented in this encounter Plan of Treatment Upcoming Encounters Date Type Department Care Team (Late st Contact Info) Description 10/29/2024 9:30 AM CIAIO LUMITE INJECTOR Office Visit [facility] - [facility] [address] [place] [address] Bhargavi Morel PAC [address] [place] [address] documented as of this encounter Visit Diagnoses Diagnosis Type 2 diabetes mellitus without complication, without long-term current use of insulin (HCC) documented in this encounter Additional Health Concerns Assessment Noted Time PHQ-9 Depression Total Score: 0 10/18/19 23 1:27 PM CIAIO LUMITE INJECTOR documented as of this encounter Care Teams Coating Supervisor Relationship Specialty Start Date End Date Jovita Bermudez MD [address] [place] [address] PCP - General Family Medicine 11/30/20 07/21/23 Bhargavi Morel PAC [address] [place] [address] PCP - General Physician Marketing Regional Consultant 07/22/23 Flaquito Hurd MD [address] [place] [address] Consulting Physician Pulmonary Disease 11/09/22 Wes Petty MD [address] [address] Consulting Physician Urology 01/18/24 documented as of this encounter
--- OUTSIDE RECORDS SUMMARY | 2024-08-30 18:49 | XMS_ITS | Encounter Summary ---
Author Organization [facility] Address [address] [place] [address] Phone Care Team Providers Care Salt Plant Operator Name Role Phone Jovita Bermudez MD Primary Care Provider [phone]- [phone] Bhargavi Morel Primary Care Provider + Flaquito Hurd MD Unavailable Wes Petty MD Unavailable Reason for Visit * Reason Comments Medication Refill Encounter Details Date Type Department Care Team (Late st Contact Info) Description 02/21/2023 Refill [facility] [address] [place] [id number] Jovita Bermudez MD [address] [place] [address] Medication Refill Social History Tobacco [...] Telephone Encounter - Reanna Rios RN - 02/22/2023 9:25 AM CDT PDMP 01/03/23 - 7 days Medication failed the protocol, provider to review and approve the medication order if appropriate. Requested Prescriptions Pending Prescriptions Disp Refills traMADol (ULTRAM) 50 MG Tablet [Pharmacy Med Name: TRAMADOL HCL 50MG TABS] 28 Tablet 0 Sig: TAKE ONE TABLET BY MOUTH EVERY 6 HOURS NEEDED FOR MODERATE OR MORE SEVERE PAIN Not Delegated - Opioid Agonists Protocol Failed - 02/21/2023 9:13 AM Failed - This refill cannot be delegated Passed - Visit with relevant provider in past 12 months or upcoming 90 days Recent Visits Date Type Provider Dept 10/18/22 Office Visit Bhargavi Morel PAC [facility] [place] 05/04/22 [facility] Showing recent visits within past 365 days and meeting all other requirements Future Appointments Date Type Provider Dept 03/14/23 Appointment Jovita Bermudez MD [facility] Showing future appointments within next 90 days and meeting all other requirements documented in this encounter Plan of Treatment Upcoming Encounters Date Type Department Care Team (Late st Contact Info) Description 10/29/2024 9:30 AM TABLE TENDER Office Visit [facility] [address] [place] [address] Bhargavi Morel PAC [address] [facility] [place] [address] documented as of this encounter Visit Diagnoses Diagnosis Pain and swelling of right knee documented in this encounter Additional Health Concerns Assessment Noted Time PHQ-9 Depression Total Score: 0 10/18/19 1:27 PM TABLE TENDER documented as of this encounter Care Teams Salt Plant Operator Relationship Specialty Start Date End Date Jovita Bermudez MD [address] [place] [address] PCP - General Family Medicine 11/30/20 07/21/23 Bhargavi Morel PAC [address] [place] [address] PCP - General Physician Electro Mechanical Solar Technician 07/22/23 Flaquito Hurd MD [address] [place] [id number] Consulting Physician Pulmonary Disease 11/09/22 Wes Petty MD [address] [address] Consulting Physician Urology 01/18/24 documented as of this encounter
--- OUTSIDE RECORDS SUMMARY | 2024-08-30 18:49 | XMS_ITS | Encounter Summary ---
Author Organization [facility] Address [address] [place] [address] Phone Care Team Providers Care Computer Technician Name Role Phone Jovita Bermudez MD Primary Care Provider [phone]- [phone] Flaquito Hurd MD Unavailable Reason for Visit * Reason Comments Medication Refill Encounter Details Date Type Department Care Team (Late st Contact Info) Description 12/04/2022 Refill [facility] [address] [place] [address] Jovita Bermudez MD [address] [place] [address] Medication Refill Social History Tobacco Use Types [...] suspected to have Coronavirus/COVID-19? No / Unsure 11/09/2022 2:25 PM CDT documented as of this encounter Miscellaneous Notes * Telephone Encounter - Irena Gross RN - 12/04/2022 11:38 AM CDT Medication(s) refilled and [facility] per [facility] Chronic Medication Refill Standing Order for Pediatricand Adult Patients. Requested Prescriptions Pending Prescriptions Disp Refills ??? metFORMIN (GLUCOPHAGE) 1000 MG Tablet [Pharmacy Med Name: METFORMIN HCL 1000MG TABS] 180 Tablet1 Sig: TAKE 1 TABLET BY MOUTH TWO TIMES A DAY Biguanides Protocol Passed - 12/04/2022 9:02 AM Passed - Visit with relevant provider in past 6 months or upcoming 90 days Recent Visits Date Type Provider Dept 10/18/22 [facility] Show[facility] visits within past 182 days and meeting all other requirements Future Appointments Date Type Provider Dept 01/17/23 Appointment Jovita Bermudez MD [facility] Showing future appointments within next 90 [...] st Contact Info) Description 10/29/2024 9:30 AM DELIVERY MANAGER Office Visit [facility] - [facility] - [place] [address] [place] [address] Bhargavi Morel PAC [address] [place] [address] documented as of this encounter Visit Diagnoses Not on filedocumented in this encounter Additional Health Concerns Assessment Noted Time PHQ-9 Depression Total Score: 0 10/18/19 1:27 PM DELIVERY MANAGER documented as of this encounter Care Teams Computer Technician Relationship Specialty Start Date End Date Jovita Bermudez MD [address] [place] [address] PCP - General Family Medicine 11/30/20 07/21/23 Flaquito Hurd MD [address] [place] [id number] Consulting Physician Pulmonary Disease 11/09/22 documented as of this encounter
--- OUTSIDE RECORDS SUMMARY | 2024-08-30 18:49 | XMS_ITS | Encounter Summary ---
Author Organization [facility] Address [address] [place] [address] Phone Care Team Providers Care Electrical Designer Drafter Name Role Phone Jovita Bermudez MD Primary Care Provider [phone] Flaquito Hurd MD Unavailable Encounter Details Date Type Department Care Team (Late st Contact Info) Description 05/23/2023 8:10 AM CDT Lab [facility] [address] [address] [facility] Urinary frequency; Type 2 diabetes mellitus without complication, without long-term current use of insulin (HCC); Hypothyroidism, unspecified type; Atrial fibrillation, unspecified type (HCC); Vitamin D deficiency Discharge Disposition: Discharged to home or Selfcare [...] suspected to have Coronavirus/COVID-19? No / Unsure 05/23/2023 8:06 AM CDT documented as of this encounter Progress Notes * Michelle Dutton - 05/23/2023 8:10 AM CDT Tressa presents for lab draw per order of bhargavi morel dated . Specimen collected from left antecubital without incident. [facility] documented in this encounter Plan of Treatment Upcoming Encounters Date Type Department Care Team (Late st Contact Info) Description 10/29/2024 9:30 AM CAREGIVER SERVICES HOME Office Visit [facility] [address] [place] [address] Bhargavi Morel, [facility] [address] [place] [address] documented as of this encounter Procedures Procedure Name Priority Date/Time Associated Diagnosis Comments VITAMIN D, 25 HYDROXY TOTAL Routine 05/23/2023 8:08 AM CDT Vitamin D deficiency HEMOGLOBIN A1C W/ ESTIMATED GLUCOSE Routine 05/23/2023 8:08 AM CDT Type 2 diabetes mellitus without complication, without long-term current use of insulin ([facility]) URINALYSIS REFLEX IF INDICATED BY ABNORMAL RESULTS Routine 05/23/2023 8:08 AM CDT Urinary frequency CBC WITH AUTO DIFFERENTIAL Routine 05/23/2023 8:08 AM CDT Type 2 diabetes mellitus without complication, without long-term current use of insulin (HCC) THYROID STIMULATING HORMONE (TSH) Routine 05/23/2023 8:08 AM CDT Hypothyroidism, unspecified type Type 2 diabetes mellitus without complication, without long-term current use of insulin ([facility]) MAGNESIUM (MG) Routine 05/23/2023 8:08 AM CDT Atrial fibrillation, unspecified type (HCC) LIPID PANEL Routine 05/23/2023 8:08 AM CDT Type 2 diabetes mellitus without complication, without long-term current use of insulin (HCC) CULTURE, URINE Routine 05/23/2023 8:08 AM CDT Urinary frequency CMP (COMPREHENSIVE METABOLIC PANEL) Routine 05/23/2023 8:08 AM CDT Type 2 diabetes mellitus without complication, without long-term current use of insulin (HCC) COMPLETE BLOOD COUNT (CBC) WITH DIFF Routine 05/23/2023 8:08 AM CDT Type 2 diabetes mellitus without complication, without long-term current use of insulin (HCC) documented in this encounter Results * CULTURE, URINE (05/23/2023 8:08 AM CDT) Pathologist [facility] CULTURE RESULTS MIXED GROWTH OF 3 OR MORE ORGANISMS, PROBABLE COLLECTION CONTAMINATION, SUGGEST REPEAT URINE CULTURE. 05/24/2023 6:10 PM CDT [facility] Urine URINE SPECIMEN COLLECTION, CLEAN CATCH / Unknown Non-Phlebotomy Collection / Unknown 05/23/2023 8:08 AM CDT 05/23/2023 8:08 AM CDT us Bhargavi Morel PAC MICROBIOLOGY - GENERAL O RDERABLES Final Result [facility] [address] [place] [address], * (ABNORMAL) CBC WITH AUTO DIFFERENTIAL (05/23/2023 8:08 AM CDT) Pathologist [facility] WBC 8.06 4.00 - 12.00 10(3)/mcL 05/23/2023 12:11 PM CDT [facility] RBC 5.27 3.80 - 5.30 10(6)/mcL 05/23/2023 12:11 PM CDT [facility] HEMOGLOBIN (HGB) 16.6(H) 12.0 - 15.8 g/dL 05/23/2023 12:11 PM CDT [facility] HEMATOCRIT (HCT) 53.7(H) 36.0 - 47.0 % 05/23/2023 12:11 PM CDT [facility] MCV 101.9(H) 82.0 - 96.0 fL 05/23/2023 12:11 PM CDT [facility] MCH 31.5 26.0 - 34.0 pg 05/23/2023 12:11 PM CDT [facility] MCHC 30.9(L) 31.0 - 36.0 g/dL 05/23/2023 12:11 PM CDT [facility] PLATELET COUNT 293 140 - 440 10(3)/mcL 05/23/2023 12:[address] [facility] RDW 13.7 11.8 - 15.5 % 05/23/2023 12:11 PM CDT [facility] MPV 9.8 9.7 - 12.4 fL 05/23/2023 12:[address] [facility] NEUTROPHILS 70.4 47.0 - 73.0 % 05/23/2023 12:11 PM CDT [facility] LYMPHOCYTES 17.4(L) 18.0 - 42.0 % 05/23/2023 12:11 PM CDT [facility] MONOCYTES 8.2 4.0 - 12.0 % 05/23/2023 12:11 PM CDT [facility] EOSINOPHILS 2.9 0.0 - 5.0 % 05/23/2023 12:11 PM CDT [facility] BASOPHILS 1.1(H) 0.0 - 1.0 % 05/23/2023 12:11 PM CDT [facility] ABSOLUTE NEUTROPHILS 5.68 1.60 - 7.70 10(3)/mcL 05/23/2023 12:11 PM CDT [facility] ABSOLUTE LYMPHOCYTES 1.40 1.30 - 3.20 10(3)/mcL 05/23/2023 12:11 PM CDT [facility] ABSOLUTE MONOCYTES 0.66 0.20 - 1.00 10(3)/[facility] 05/23/2023 12:11 PM CDT [facility] ABSOLUTE EOSINOPHIL 0.23 0.00 - 0.40 10(3)/[facility] 05/23/2023 12:11 PM CDT [facility] ABSOLUTE BASOPHILS 0.09 0.00 - 0.10 10(3)/[facility] 05/23/2023 12:11 PM CDT [facility] NRBC PER 100 WBC 0 05/23/20 12:11 PM CDT [facility] Blood Venipuncture / Unknown 05/23/2023 8:08 AM CDT 05/23/2023 8:08 AM CDT us Bhargavi Morel PAC HEMATOLOGY ORDERABLES Fi nal Result [facility] [address] [place] [address] * VITAMIN D, 25 HYDROXY TOTAL (05/23/2023 8:08 AM CDT) VITAMIN D, 25 HYDROX 39 ng/mL 05/23/2023 12:47 PM CDT [facility] Blood Venipuncture / Unknown 05/23/2023 8:08 AM CDT 05/23/2023 8:08 AM CDT Narrative [facility] - 05/23/2023 12:47 PM CDT Published reference ranges for Vitamin D vary depending on time and place and method of testing, and on patient's age, sex, ethnicity and levels of other measured analytes such as parathormone, calcium and phosphorus. ??The result should be evaluated in conjunction with clinical findings and suspicions. [place] [employer] and [employer] Clinical Practice Guidelines: Status Vitamin D levels (ng/mL) Deficient <=20 At risk of inadequacy 21-29 Sufficient 30-100 Centers of Disease Control and Prevention Guidelines: Status Vitamin D levels (ng/mL) Deficient <13 At risk of inadequacy 13-19 Sufficient 20-50 Possibly harmful >50 References: [place], 2010 Dietary reference intakes for calcium and vitamin D. [place]: ??The National Academies Press. Daniela M, Gina N, Genoveva HURD, et al., Evaluation, treatment, and prevention of Vitamin D deficiency: an Endocrinology Clinical Practice Guideline. JCEM 2011 96: 7 0343-5641. Althea A, Kenroy C, Etta Roman, et al., Vitamin D Status: ??[place], 2000- 1005, [facility] data brief, no. 59, MD Xuan: ??National [place] for Health Statistics. 2010. Bhargavi Morel PAC CHEMISTRY ORDERABLES Fin al Result [facility] [address] [place] [address] * (ABNORMAL) LIPID PANEL (05/23/2023 8:08 AM CDT) CHOLESTEROL 117 <200 mg/dL 05/23/2023 12:30 PM CDT [facility] TRIGLYCERIDES 103 <150 mg/dL 05/23/2023 12:30 PM CDT [facility] HDL CHOLESTEROL 36(L) >40 mg/dL 12:30 PM CDT [facility] LDL 60 <130 mg/dL 05/23/2023 12:30 PM CDT [facility] VLDL 21 10 - 50 mg/dL 05/23/2023 12:30 PM CDT [facility] CHOL/HDL RATIO 3.3 0.0 - 4.4 05/23/2023 12:30 PM CDT [facility] NON-HDL CHOLESTEROL 81 <130 mg/dL 05/23/2023 12:30 PM CDT [facility] IS THE PATIENT REQUIRED TO BE FASTING? No 05/23/2023 12:30 PM CDT [facility] Blood Venipuncture / Unknown 05/23/2023 8:08 AM CDT 05/23/2023 8:08 AM CDT Bhargavi Morel PAC CHEMISTRY ORDERABLES Fin al Result Performing Organization Address City/[facility] Co de Phone Number [facility] [address] [place] [address] * (ABNORMAL) HEMOGLOBIN A1C W/ ESTIMATED GLUCOSE (05/23/2023 8:08 AM CDT) HGB-A1C 8.5(H) 4.0 - 6.0 % 05/23/2023 12:21 PM CDT [facility] Est Average Glucose 197.3 mg/dL 05/23/2023 12:21 PM CDT [facility] Blood Venipuncture / Unknown 05/23/2023 8:08 AM CDT 05/23/2023 8:08 AM CDT Narrative [facility] - 05/23/2023 12:21 PM CDT HEMOGLOBIN A1C: DIABETIC PATIENTS: WELL-CONTROLLED: ?? 6.2 - 7.0 INTERMEDIATE WELL-CONTROLLED: ??7.0 - 9.0 POORLY-CONTROLLED: ??>9.0 Bhargavi Morel PAC CHEMISTRY ORDERABLES Fin al Result Performing Organization Address City/[facility]/ZIP Co de Phone Number [facility] [address] [place] [address] * MAGNESIUM (MG) (05/23/2023 8:08 AM CDT) MAGNESIUM 2.1 1.6 - 2.6 mg/dL 05/23/2023 12:30 PM CDT [facility] Blood Venipuncture / Unknown 05/23/2023 8:08 AM CDT 05/23/2023 8:08 AM CDT us Bhargavi Morel PAC CHEMISTRY ORDERABLES Fin al Result Performing Organization Address City/[facility]/ZIP Co de Phone Number [facility] [address] [place] [address] * THYROID STIMULATING HORMONE (TSH) (05/23/2023 8:08 AM CDT) TSH 2.171 0.300 - 5.000 mIU/L 05/23/2023 12:53 PM CDT [facility] Blood Venipuncture / Unknown 05/23/2023 8:08 AM CDT 05/23/2023 8:08 AM CDT Bhargavi Morel PAC CHEMISTRY ORDERABLES Fin al Result Performing Organization Address [facility] Co de Phone Number [facility] [address] [place] [address] * (ABNORMAL) CMP (COMPREHENSIVE METABOLIC PANEL) (05/23/2023 8:08 AM CDT) SODIUM 136 136 - 145 mmol/L 05/23/2023 12:30 PM CDT [facility] POTASSIUM 5.0 3.5 - 5.1 mmol/L 05/23/2023 12:30 PM CDT [facility] CHLORIDE 100 98 - 107 mmol/L 05/23/2023 12:30 PM CDT [facility] CO2, VENOUS 27 22 - 30 mmol/L 05/23/2023 12:30 PM CDT [facility] ANION GAP 14.0 <18.0 mmol/L 05/23/2023 12:30 PM CDT [facility] GLUCOSE 189(H) 70 - 99 mg/dL 05/23/2023 12:30 PM CDT [facility] BUN 20 10 - 20 mg/dL 05/23/2023 12:30 PM CDT [facility] CREATININE, BLOOD 0.81 0.60 - 1.00 mg/dL 05/23/2023 12:30 PM CDT [facility] BUN/CREATININE RATIO 25(H) 12 - 20 ratio 05/23/2023 12:30 PM T [facility] TOTAL PROTEIN 8.3(H) 6.3 - 8.2 g/dL 05/23/2023 12:30 PM CDT [facility] ALBUMIN 3.6 3.5 - 5.0 g/dL 05/23/2023 12:30 PM CDT [facility] A/G RATIO 0.8(L) 1.0 - 2.2 05/23/2023 12:30 PM CDT [facility] CALCIUM 9.5 8.7 - 10.5 mg/dL 05/23/2023 12:30 PM CDT [facility] T BILI 0.7 0.2 - 1.2 mg/dL 05/23/2023 12:30 PM T [facility] SGOT (AST) 27 5 - 34 U/L 05/23/2023 12:30 PM T [facility] SGPT (ALT) 24 0 - 55 U/L 05/23/2023 12:30 PM T [facility] ALKALINE PHOSPHATASE 92 40 - 150 U/L 05/23/2023 12:30 PM T [facility] IS THE PATIENT REQUIRED TO BE FASTING? No 05/23/2023 12:30 PM T [facility] GFR, ESTIMATED >60 >=60 05/23/2023 12:30 PM T [facility] Comment: Creatinine Clearance is the preferred criteria for selecting drug dose adjustments in renally impaired patients. ??The GFR is provided as additional pertinent clinical information. GFR is reported in mL/min/1.73 sq m. Calculation based on the Chronic Kidney Disease Epidemiology Collaboration (CKD- EPI) equation refit without adjustment for race. GFR, EST. >60 >=60 023 12:30 PM CDT [facility] GFR, EST. NONAFRICAN >60 >=60 05/23/2023 12:30 PM CDT [facility] Blood Venipuncture / Unknown 05/23/2023 8:08 AM CDT 05/23/2023 8:08 AM CDT us Bhargavi Reedmarystephen PAC CHEMISTRY ORDERABLES Fin al Result [facility] [address] [place] [address] * (ABNORMAL) URINALYSIS REFLEX IF INDICATED BY ABNORMAL RESULTS (05/23/2023 8:08 AM CDT) SPECIFIC GRAVITY 1.010 1.003 - 1.030 05/23/2023 12:32 PM CDT [facility] URINE PH 6.0 5.0 - 9.0 05/23/2023 12:32 PM CDT [facility] WBC ESTERASE 100 /uL(A) Negative 05/23/2023 12:32 PM CDT [facility] NITRITE Positive(A) Negative 05/23/2023 12:32 PM CDT [facility] PROTEIN, RANDOM URINE 30 mg/dL(A) Negative 05/23/2023 12:32 PM CDT [facility] URINE GLUCOSE, QUAL 1000 mg/dL(A) Negative 05/23/2023 12:32 PM CDT [facility] URINE KETONES Negative Negative 05/23/2023 12:32 PM CDT [facility] UROBILINOGEN Normal Normal mg/dL 05/23/2023 12:32 PM CDT [facility] URINE BLOOD 10 /uL(A) Negative minerva/ul 05/23/2023 12:32 PM CDT [facility] URINALYSIS COLOR Light Yellow 05/23/2023 12:32 PM CDT [facility] URINALYSIS CLARITY Very Cloudy 05/23/2023 12:32 PM CDT [facility] WBC (Urine) 51-150(A) Negative, 0-5 /hpf 05/23/2023 12:32 PM CDT [facility] URINE RBC'S 6-10(A) Negative, 0-2 /hpf 05/23/2023 12:32 PM CDT [facility] EPITHELIAL CELLS Occasional /lpf 05/23/2023 12:32 PM CDT [facility] BACTERIA, URINE Packed(A) Negative /hpf 05/23/2023 12:32 PM CDT [facility] Urine URINE SPECIMEN COLLECTION, CLEAN CATCH / Unknown Non-Phlebotomy Collection / Unknown 05/23/2023 8:08 AM CDT 05/23/2023 8:08 AM CDT us Bhargavi Morel PAC URINE ORDERABLES Final R esult [facility] [address] [place] [address] documented in this encounter Visit Diagnoses Diagnosis Urinary frequency Type 2 diabetes mellitus without complication, without long-term current use of insulin (HCC) Hypothyroidism, unspecified type Atrial fibrillation, unspecified type (HCC) Vitamin D deficiency Unspecified vitamin D deficiency documented in this encounter Additional Health Concerns Assessment Noted Time PHQ-9 Depression Total Score: 0 10/18/19 23 1:27 PM CAREGIVER SERVICES HOME documented as of this encounter Care Teams Electrical Designer Drafter Relationship Specialty Start Date End Date Jovita Bermudez MD [address] [place] [address] PCP - General Family Medicine 11/30/20 07/21/23 Flaquito Hurd MD [address] [place] [address] Consulting Physician Pulmonary Disease 11/09/22 documented as of this encounter
--- OUTSIDE RECORDS SUMMARY | 2024-08-30 18:49 | XMS_ITS | Encounter Summary ---
Author Organization [facility] Address [address] [place] [address] Phone Care Team Providers Care Furniture Sales Associate Name Role Phone Jovita Bermudez MD Primary Care Provider [phone] Bhargavi Morel Primary Care Provider + Flaquito Hurd MD Unavailable Wes Petty MD Unavailable Reason for Visit * Reason Comments Medication Refill Encounter Details Date Type Department Care Team (Late st Contact Info) Description 05/11/2023 Refill [facility] [address] [place] [address] Flaquito Hurd MD [address] [place] [address] Medication Refill Social History Tobacco [...] Telephone Encounter - Betsy Cruz RN - 05/14/2023 8:33 AM CDT Medication failed the protocol, provider to review and approve the medication order if appropriate. Requested Prescriptions Pending Prescriptions Disp Refills gabapentin (NEURONTIN) 600 MG Tablet [Pharmacy Med Name: GABAPENTIN 600MG TABS] 90 Tablet 1 Sig: TAKE ONE TABLET BY MOUTH EVERY DAY Not Delegated - Anticonvulsants Excluding Benzodiazepines Protocol Failed - 05/11/2023 2:06 AM Failed - This refill cannot be delegated Passed - Visit with relevant provider in past 12 months or upcoming 90 days Recent Visits Date Type Provider Dept 04/10/23 Office Visit Bhargavi Morel PAC [facility] 11/09/22 [facility] 10/18/22 Office Visit Bhargavi Morel PAC [facility] Showing recent visits within past 365 days and meeting all other requirements Today's Visits Date Type Provider Dept 05/14/23 Appointment Flaquito Hurd MD [facility] Showing today's visits and meeting all other requirements Future Appointments Date Type Provider Dept 07/11/23 Appointment Bhargavi Morel PAC [facility] Showing future appointments within next 90 days and meeting all other requirements documented in this encounter Plan of Treatment Upcoming Encounters Date Type Department Care Team (Late st Contact Info) Description 10/29/2024 9:30 AM EXECUTIVE PERSONAL ASSISTANT Office Visit [facility] - [place] [address] [place] [address] Bhargavi Morel PAC [address] [place] [address] documented as of this encounter Visit Diagnoses Diagnosis Restless legs syndrome (RLS) documented in this encounter Additional Health Concerns Assessment Noted Time PHQ-9 Depression Total Score: 0 10/18/19 1:27 PM EXECUTIVE PERSONAL ASSISTANT documented as of this encounter Care Teams Furniture Sales Associate Relationship Specialty Start Date End Date Jovita Bermudez MD [address] [place] [address] PCP - General Family Medicine 11/30/20 07/21/23 Bhargavi Morel PAC [address] [place] [address] PCP - General Physician Veneer Clipper Helper 07/22/23 Flaquito Hurd MD [address] [place] [address] Consulting Physician Pulmonary Disease 11/09/22 [facility] Pet[facility] [address] [address] Consulting Physician Urology 01/18/24 documented as of this encounter
--- OUTSIDE RECORDS SUMMARY | 2024-08-30 18:49 | XMS_ITS | Encounter Summary ---
Author Organization [facility] Address [address] [place] [address] Phone Care Team Providers Care Snaker Name Role Phone Jovita Bermudez MD Primary Care Provider [phone] Flaquito Hurd MD Unavailable Reason for Visit * Reason Comments Medication Refill Encounter Details Date Type Department Care Team (Late st Contact Info) Description 02/12/2023 Refill [facility] [address] [place] [address] Jovita Bermudez MD [address] [place] [address] Medication Refill Social History Tobacco Use Types [...] Telephone Encounter - Reanna Rios RN - 02/13/2023 11:29 AM CDT Medication(s) [facility] Refill Standing Order for Pediatricand Adult Patients. Requested Prescriptions Pending Prescriptions Disp Refills ??? levothyroxine (SYNTHROID) 75 MCG Tablet [Pharmacy Med Name: LEVOTHYROXINE SODIUM 75MCG TABS] 90Tablet 1 Sig: TAKE ONE TABLET BY MOUTH EVERY DAY Thyroid Hormones Protocol Passed - 02/12/2023 4:29 PM Passed - Visit with relevant provider in past 12 months or upcoming 90 days Recent Visits Date Type Provider Dept 10/18/22 Office Visit Bhragavi Morel PAC [facility] 05/04/22 Office Visit [facility]argavi Morel [facility] Showing recent visits within past 365 days and meeting all other requirements Future Appointments Date Type Provider Dept 03/14/23 Appointment Jovita Bermudez MD [facility] Showing future appointments within next 90 days and meeting all other requirements Passed - Normal TSH in past 12 months TSH Date Value Ref Range Status 10/18/2022 1.710 0.270 - 4.200 mIU/L Final ??? Januvia 100 MG Tablet [Pharmacy Med Name: JANUVIA 100MG TABS] 90 Tablet 1 Sig: TAKE ONE TABLET BY MOUTH EVERY DAY DPP-4 Inhibitors Protocol Passed - 02/12/2023 4:29 PM Passed - Visit with relevant provider in past 6 months or upcoming 90 days Recent Visits Date Type Provider Dept 10/18/22 Office Visit Bhargavi Morel PAC [facility] Showing recent visits within past 182 days and meeting all other requirements Future Appointments Date Type Provider Dept 03/14/23 Appointment Jovita Bermudez MD [facility] Showing future appointments within next [...] st Contact Info) Description 10/29/2024 9:30 AM VICE PRESIDENT QUALITY Office Visit [facility] [address] [place] [address] Bhargavi Morel, ARAM [address] [place] [address] documented as of this encounter Visit Diagnoses Not on filedocumented in this encounter Additional Health Concerns Assessment Noted Time PHQ-9 Depression Total Score: 0 10/18/19 23 1:27 PM VICE PRESIDENT QUALITY documented as of this encounter Care Teams Snaker Relationship Specialty Start Date End Date Jovita Bermudez MD [address] [place] [address] PCP - General Family Medicine 11/30/20 07/21/23 Flaquito Hurd MD [address] [place] [address] Consulting Physician Pulmonary Disease 11/09/22 documented as of this encounter
--- OUTSIDE RECORDS SUMMARY | 2024-08-30 18:49 | XMS_ITS | Encounter Summary ---
Author Organization [facility] Address [address] [place] [address] Phone Care Team Providers Care Vice President Sales And Marketing Name Role Phone Jovita Bermudez MD Primary Care Provider [phone] Bhargavi Morel Primary Care Provider + Flaquito Hurd MD Unavailable Wes Petty MD Unavailable Reason for Visit * Reason Comments Medication Refill Encounter Details Date Type Department Care Team (Late st Contact Info) Description 03/21/2023 Refill [facility] #2 [place] [id number] Jovita Bermudez MD [address]2 [place] [address] Medication Refill Social History Tobacco [...] Telephone Encounter - Emeli Walsh RN - 03/21/2023 3:45 PM CDT Medication failed the protocol, provider to review and approve the medication order if appropriate. Requested Prescriptions Pending Prescriptions Disp Refills PARoxetine (PAXIL) 40 MG Tablet [Pharmacy Med Name: PAROXETINE HCL 40MG TABS] 90 Tablet 1 Sig: TAKE ONE TABLET BY MOUTH EVERY DAY SSRI (6 Month Refill Only) Protocol Failed - 03/21/2023 12:53 PM Failed - Has an encounter in the [...] requirements Future Appointments Date Type Provider Dept 03/28/23 Appointment Bhargavi Morel PAC [facility] [place] Showing future appointments within next 90 days and meeting all other requirements Passed - Patient has established therapy with SSRI for at least 6 months documented in this encounter Plan of Treatment Upcoming Encounters Date Type Department Care Team (Late st Contact Info) Description 10/29/2024 9:30 AM POLYMERIZATION OVEN OPERATOR Office Visit [facility] - Family Medicine [facility] [address] [place] [address] Bhargavi Morel PAC [address]2 [place] [address] documented as of this encounter Visit Diagnoses Not on filedocumented in this encounter Additional Health Concerns Assessment Noted Time PHQ-9 Depression Total Score: 0 10/18/19 23 1:27 PM POLYMERIZATION OVEN OPERATOR documented as of this encounter Care Teams Vice President Sales And Marketing Relationship Specialty Start Date End Date Jovita Bermudez MD [address]2 [place] [address] PCP - General Family Medicine 11/30/20 07/21/23 Bhargavi Morel PAC #2 [place] [address] PCP - General Physician Head Of Mathematics 07/22/23 Flaquito Hurd MD [address] [place] [address] Consulting Physician Pulmonary Disease 11/09/22 Wes Petty MD [address] [address] Consulting Physician Urology 01/18/24 documented as of this encounter
--- OUTSIDE RECORDS SUMMARY | 2024-08-30 18:49 | XMS_ITS | Encounter Summary ---
Author Organization [facility] Address [address] [place] [address] Phone Care Team Providers Care Quantitative Researcher Name Role Phone Jovita Bermudez MD Primary Care Provider [phone] Flaquito Hurd MD Unavailable Encounter Details Date Type Department Care Team (Late st Contact Info) Description 06/13/2023 10:30 AM CDT Lab [facility] [address] [facility] [place] [address] [facility] Lab/Ancillary UTI symptoms Discharge Disposition: Discharged to home or Selfcare [...] encounter Progress Notes * Michelle Dutton - 06/13/2023 10:30 AM CDT URINE SENT TO [facility] documented in this encounter Plan of Treatment Upcoming Encounters Date Type Department Care Team (Late st Contact Info) Description 10/29/2024 9:30 AM SHELL GRADER Office Visit [facility] #2 [place] [address] Bhargavi Morel, PAC [address] [place] [address] documented as of this encounter Procedures Procedure Name Priority Date/Time Associated Diagnosis Comments URINALYSIS REFLEX IF INDICATED BY ABNORMAL RESULTS Routine 06/13/2023 10:20 AM CDT UTI symptoms CULTURE, URINE Routine 06/13/2023 10:20 AM CDT UTI symptoms documented in this encounter Results * CULTURE, URINE (06/13/2023 10:20 AM CDT) CULTURE RESULTS KLEBSIELLA PNEUMONIAE 06/16/2023 9:17 PM CDT [facility] Urine URINE SPECIMEN COLLECTION, CLEAN CATCH / Unknown Non-Phlebotomy Collection / Unknown 06/13/2023 10:20 AM CDT 06/13/2023 10:20 AM CDT Narrative Organism Antibiotic Method Susceptibility Klebsiella pneumoniae Ampicillin/sulbactam [facility] VITEK II >=32 mcg/ml: Resistant Klebsiella pneumoniae Cefazolin [facility] VITEK II 8 mcg/ml: Susceptible Klebsiella pneumoniae Cefepime [facility] V[facility] II <=1 mcg/ml: Susceptible Klebsiella pneumoniae Ceftriaxone [facility] V[facility] II <=1 mcg/ml: Susceptible Klebsiella pneumoniae Gentamicin [facility] II <=1 mcg/ml: Susceptible Klebsiella pneumoniae Levofloxacin [facility] II 1 mcg/ml: Intermediate Klebsiella pneumoniae Meropenem [facility] V[facility] II <=0.25 mcg/ml: Susceptible Klebsiella pneumoniae Nitrofurantoin [facility] VITEK II >=512 mcg/ml: Resistant Klebsiella pneumoniae Piperacillin/Tazobactam [facility] VIT EK II Susceptible Comment:VERIFIED BY THELMA DOW Klebsiella pneumoniae Tobramycin [facility] VITEK II <=1 mcg/ml: Susceptible Klebsiella pneumoniae Trimeth/Sulfamethoxazole [facility] SANDRA II >32 mcg/ml: Resistant Comment:VERIFIED BY ETEST us Bhargavi Morel PAC MICROBIOLOGY - GENERAL O RDERABLES Final Result [facility] [address] [place] [address], * (ABNORMAL) URINALYSIS REFLEX IF INDICATED BY ABNORMAL RESULTS (06/13/2023 10:20 AM CDT) SPECIFIC GRAVITY 1.010 1.003 - 1.030 06/13/2023 1:12 PM CDT [facility] URINE PH 6.0 5.0 - 9.0 06/13/2023 1:12 PM CDT [facility] WBC ESTERASE 500 /uL(A) Negative 06/13/2023 1:12 PM CDT [facility] NITRITE Negative Negative 06/13/2023 1:12 PM CDT [facility] PROTEIN, RANDOM URINE 15 mg/dL(A) Negative 06/13/2023 1:12 PM CDT [facility] URINE GLUCOSE, QUAL 1000 mg/dL(A) Negative 06/13/2023 1:12 PM CDT [facility] URINE KETONES Negative Negative 06/13/2023 1:12 PM CDT [facility] UROBILINOGEN Normal Normal mg/dL 06/13/2023 1:12 PM CDT [facility] URINE BLOOD 10 /uL(A) Negative minerva/ul 06/13/2023 1:12 PM CDT [facility] URINALYSIS COLOR Yellow 06/13/20 1:12 PM CDT [facility] URINALYSIS CLARITY Slightly Cloudy 06/13/2023 1:12 PM CDT [facility] WBC (Urine) Packed(A) Negative, 0-5 /hpf 06/13/2023 1:12 PM CDT [facility] URINE RBC'S 3-5(A) Negative, 0-2 /hpf 06/13/2023 1:12 PM CDT [facility] EPITHELIAL CELLS Negative /lpf 06/13/20 1:12 PM CDT [facility] BACTERIA, URINE Packed(A) Negative /hpf 06/13/2023 1:12 PM CDT [facility] Urine URINE SPECIMEN COLLECTION, CLEAN CATCH / Unknown Non-Phlebotomy Collection / Unknown 06/13/2023 10:20 AM CDT 06/13/2023 10:20 AM CDT us Bhragavi Morel PAC URINE ORDERABLES Final R esult [facility] [address] [place] [address] documented in this encounter Visit Diagnoses Diagnosis UTI symptoms documented in this encounter Additional Health Concerns Assessment Noted Time PHQ-9 Depression Total Score: 0 10/18/19 1:27 PM SHELL GRADER documented as of this encounter Care Teams Quantitative Researcher Relationship Specialty Start Date End Date Jovita Bermudez MD [address] [place] [address] PCP - General Family Medicine 11/30/20 07/21/23 Flaquito Hurd MD [address] [place] [address] Consulting Physician Pulmonary Disease 11/09/22 documented as of this encounter
--- OUTSIDE RECORDS SUMMARY | 2024-08-30 18:49 | XMS_ITS | Encounter Summary ---
Author Organization [facility] Address [address] [place] [address] Phone Care Team Providers Care Wheel Fitter Name Role Phone Jovita Bermudez MD Primary Care Provider [phone] Bhargavi Morel Primary Care Provider + Flaquito Hurd MD Unavailable Wes Petty MD Unavailable Reason for Visit * Reason Comments Medication Refill Encounter Details Date Type Department Care Team (Late st Contact Info) Description 05/08/2023 Refill [facility] #2 [place] [phone] Jovita Bermudez MD [address] [place] [address] Medication Refill Social History Tobacco [...] suspected to have Coronavirus/COVID-19? No / Unsure 04/10/2023 4:00 PM CDT documented as of this encounter Miscellaneous Notes * Telephone Encounter - Reanna Rios RN - 05/08/2023 4:45 PM CDT PDMP 04/02/23 - 7 days Medication failed the protocol, provider to review and approve the medication order if appropriate. Requested Prescriptions Pending Prescriptions Disp Refills traMADol (ULTRAM) 50 MG Tablet [Pharmacy Med Name: TRAMADOL HCL 50MG TABS] 28 Tablet 0 Sig: TAKE ONE TABLET BY MOUTH EVERY 6 HOURS NEEDED FOR MODERATE OR MORE SEVERE PAIN Not Delegated - Opioid Agonists Protocol Failed - 05/08/2023 3:06 PM Failed - This refill cannot be [...] st Contact Info) Description 10/29/2024 9:30 AM PICKLE PUMPER Office Visit [facility] Medical [facility] - Family Medicine - [place] [address] [place] [address] Bhargavi Morel, ARAM [address] [place] [address] documented as of this encounter Visit Diagnoses Diagnosis Pain and swelling of right knee documented in this encounter Additional Health Concerns Assessment Noted Time PHQ-9 Depression Total Score: 0 10/18/19 23 1:27 PM PICKLE PUMPER documented as of this encounter Care Teams Wheel Fitter Relationship Specialty Start Date End Date Jovita Bermudez MD [address]2 [place] [address] PCP - General Family Medicine 11/30/20 07/21/23 Bhargavi Morel PAC [address] [place] [address] PCP - General Physician Mobile Battery Technician 07/22/23 Flaquito uHrd MD #2 [place] [phone] Consulting Physician Pulmonary Disease 11/09/22 Wes Petty MD [address] [phone] Consulting Physician Urology 01/18/24 documented as of this encounter
--- OUTSIDE RECORDS SUMMARY | 2024-08-30 18:49 | XMS_ITS | Encounter Summary ---
Author Organization [facility] Address [address] [place] [address] Phone Care Team Providers Care Post Tensioning Ironworker Name Role Phone Jovita Bermudez MD Primary Care Provider [phone] Encounter Details Date Type Department Care Team (Late st Contact Info) Description 10/18/2022 2:20 PM SCREW MACHINE OPERATOR Lab [facility] [address] [address] [facility] Lab/Ancillary Type 2 diabetes mellitus without complication, without long-term current use of insulin (HCC); Essential (primary) hypertension; Hypothyroidism, unspecified type; Vitamin D deficiency Discharge Disposition: Discharged to [...] suspected to have Coronavirus/COVID-19? No / Unsure 10/18/2022 1:12 PM SCREW MACHINE OPERATOR documented as of this encounter Functional Status * Question Answer Date of Assessment Author Little interest or pleasure in doing things Not at all 10/18/2022 1:27 PM SCREW MACHINE OPERATOR Berenice Bray cia, RMA Feeling down, depressed, or hopeless Not at all 10/18/2022 1:27 PM SCREW MACHINE OPERATOR Berenice Bray cia, RMA * Over the past 2 weeks, how often have you been bothered by any of the following problems? Question Answer Date of Assessment Author Patient Health Questionnaire-2 Score 0 10/18/2022 1:27 PM SCREW MACHINE OPERATOR Maeve Bray RMA documented as of this encounter Progress Notes * Michelle Dutton - 10/18/2022 2:20 PM CST Tressa presents for lab draw per order of BHARGAVI MOREL dated . Specimen collected from left antecubital without incident. [facility] W MACHINE OPERATOR documented in this encounter Plan of Treatment Upcoming Encounters Date Type Department Care Team (Late st Contact Info) Description 10/29/2024 9:30 AM SCREW MACHINE OPERATOR Office Visit [facility] Medical [facility] - Family [facility] #2 [place] [address] Bhargavi Morel, [facility] #2 [place] [address] documented as of this encounter Procedures Procedure Name Priority Date/Time Associated Diagnosis Comments VITAMIN D, 25 HYDROXY TOTAL Routine 10/18/2022 2:15 PM SCREW MACHINE OPERATOR Vitamin D deficiency HEMOGLOBIN A1C W/ ESTIMATED GLUCOSE Routine 10/18/2022 2:15 PM SCREW MACHINE OPERATOR Type 2 diabetes mellitus without complication, without long-term current use of insulin (HCC) CBC WITH AUTO DIFFERENTIAL Routine 10/18/2022 2:15 PM SCREW MACHINE OPERATOR Type 2 diabetes mellitus without complication, without long-term current use of insulin (HCC) Essential (primary) hypertension THYROID STIMULATING HORMONE (TSH) Routine 10/18/2022 2:15 PM SCREW MACHINE OPERATOR Hypothyroidism, unspecified type CMP (COMPREHENSIVE METABOLIC PANEL) Routine 10/18/2022 2:15 PM SCREW MACHINE OPERATOR Type 2 diabetes mellitus without complication, without long-term current use of insulin (HCC) Essential (primary) hypertension COMPLETE BLOOD COUNT (CBC) WITH DIFF Routine 10/18/2022 2:15 PM SCREW MACHINE OPERATOR Type 2 diabetes mellitus without complication, without long-term current use of insulin (HCC) Essential (primary) hypertension documented in this encounter Results * (ABNORMAL) CBC WITH AUTO DIFFERENTIAL (10/18/2022 2:15 PM SCREW MACHINE OPERATOR) WBC 8.24 4.00 - 12.00 10(3)/mcL 10/18/2022 4:21 PM [facility] RBC 4.92 3.80 - 5.30 10(6)/mcL 10/18/2022 4:21 PM [facility] HEMOGLOBIN (HGB) 15.6 12.0 - 15.8 g/dL 10/18/2022 4:21 PM [facility] HEMATOCRIT (HCT) 49.2(H) 36.0 - 47.0 % 10/18/2022 4:21 PM [facility] MCV 100.0(H) 82.0 - 96.0 fL 10/18/2022 4:21 PM [facility] MCH 31.7 26.0 - 34.0 pg 10/18/2022 4:21 PM [facility] MCHC 31.7 31.0 - 36.0 g/dL 10/18/2022 4:21 PM [facility] PLATELET COUNT 246 140 - 440 10(3)/mcL 10/18/2022 4:21 PM [facility] RDW 13.6 11.8 - 15.5 % 10/18/2022 4:21 PM [facility] MPV 10.2 9.7 - 12.4 fL 10/18/2022 4:21 PM [facility] NEUTROPHILS 53.6 47.0 - 73.0 % 10/18/2022 4:21 PM SCREW MACHINE OPERATOR [facility] LYMPHOCYTES 31.1 18.0 - 42.0 % 10/18/2022 4:21 PM SCREW MACHINE OPERATOR [facility] MONOCYTES 10.4 4.0 - 12.0 % 10/18/2022 4:21 PM SCREW MACHINE OPERATOR [facility] EOSINOPHILS 4.1 0.0 - 5.0 % 10/18/2022 4:21 PM SCREW MACHINE OPERATOR [facility] BASOPHILS 0.8 0.0 - 1.0 % 10/18/2022 4:21 PM SCREW MACHINE OPERATOR [facility] ABSOLUTE NEUTROPHILS 4.41 1.60 - 7.70 10(3)/[facility] 10/18/2022 4:21 PM [facility] ABSOLUTE LYMPHOCYTES 2.56 1.30 - 3.20 10(3)/[facility] 10/18/2022 4:21 PM [facility] ABSOLUTE MONOCYTES 0.86 0.20 - 1.00 10(3)/[facility] 10/18/2022 4:21 PM SCREW MACHINE OPERATOR [facility] ABSOLUTE EOSINOPHIL 0.34 0.00 - 0.40 10(3)/[facility] 10/18/2022 4:21 PM [facility] ABSOLUTE BASOPHILS 0.07 0.00 - 0.10 10(3)/[facility] 10/18/2022 4:21 PM [facility] NRBC PER 100 WBC 0 10/18/19 4:21 PM [facility] Blood Venipuncture / Unknown 10/18/2022 2:15 PM SCREW MACHINE OPERATOR 10/18/2022 2:15 PM SCREW MACHINE OPERATOR us Bhargavi Morel PAC HEMATOLOGY ORDERABLES Fi nal Result [facility] [address] [place] [address] * (ABNORMAL) VITAMIN D, 25 HYDROXY TOTAL (10/18/2022 2:15 PM SCREW MACHINE OPERATOR) VITAMIN D, 25 HYDROX 26(L) >=30 ng/mL 10/18/2022 4:57 PM SCREW MACHINE OPERATOR [facility] Blood Venipuncture / Unknown 10/18/2022 2:15 PM SCREW MACHINE OPERATOR 10/18/2022 2:15 PM SCREW MACHINE OPERATOR Narrative [facility] - 10/18/2022 4:57 PM SCREW MACHINE OPERATOR Published reference ranges for Vitamin D vary depending on time and place and method of testing, and on patient's age, sex, ethnicity and levels of other measured analytes such as parathormone, calcium and phosphorus. ??The result should be evaluated in conjunction with clinical findings and suspicions. [place] of Medicine and Endocrine Clinical Practice Guidelines: Status Vitamin D levels (ng/mL) Deficient <=20 At risk of inadequacy 21-29 Sufficient 30-100 Centers of Disease Control and Prevention Guidelines: Status Vitamin D levels (ng/mL) Deficient <13 At risk of inadequacy 13-19 Sufficient 20-50 Possibly harmful >50 References: [place] of Medicine, 2010 Dietary reference intakes for calcium and vitamin D. [place]: ??The National Academies Press. Daniela M, Gina N, Genoveva HURD, et al., Evaluation, treatment, and prevention of Vitamin D deficiency: an Endocrinology Clinical Practice Guideline. JCEM 2011 96: 7 7960-2830. Althea A, Kenroy C, Etta D, et al., Vitamin D Status: ??[place], 2000- 6, [facility] data brief, no. 59, MD Xuan: ??National Center for Health Statistics. 2011. us Bhargavi Morel PAC CHEMISTRY ORDERABLES Fin al Result [facility] #[address] [place] [address] * (ABNORMAL) HEMOGLOBIN A1C W/ ESTIMATED GLUCOSE (10/18/2022 2:15 PM SCREW MACHINE OPERATOR) HGB-A1C 8.2(H) 4.0 - 6.0 % 10/18/2022 4:40 PM SCREW MACHINE OPERATOR [facility] Est Average Glucose 188.6 mg/dL 10/18/2022 4:40 PM SCREW MACHINE OPERATOR [facility] Blood Venipuncture / Unknown 10/18/2022 2:15 PM SCREW MACHINE OPERATOR 10/18/2022 2:15 PM SCREW MACHINE OPERATOR Narrative [facility] - 10/18/2022 4:40 PM SCREW MACHINE OPERATOR HEMOGLOBIN A1C: DIABETIC PATIENTS: WELL-CONTROLLED: ?? 6.2 - 7.0 INTERMEDIATE WELL-CONTROLLED: ??7.0 - 9.0 POORLY-CONTROLLED: ??>9.0 Bhargavi Morel PAC CHEMISTRY ORDERABLES Fin al Result Performing Organization Address City/[facility]/ZIP Co de Phone Number [facility] [address] [place] [address] * THYROID STIMULATING HORMONE (TSH) (10/18/2022 2:15 PM SCREW MACHINE OPERATOR) TSH 1.710 0.270 - 4.200 mIU/L 10/18/2022 4:47 PM SCREW MACHINE OPERATOR [facility] Blood Venipuncture / Unknown 10/18/2022 2:15 PM SCREW MACHINE OPERATOR 10/18/2022 2:15 PM SCREW MACHINE OPERATOR Bhargavi Morel PAC CHEMISTRY ORDERABLES Fin al Result Performing Organization Address City/[facility]/ZIP Co de Phone Number [facility] [address] [place] [address] * (ABNORMAL) CMP (COMPREHENSIVE METABOLIC PANEL) (10/18/2022 2:15 PM SCREW MACHINE OPERATOR) SODIUM 139 136 - 144 mmol/L 10/18/2022 4:47 PM SCREW MACHINE OPERATOR [facility] POTASSIUM 4.5 3.5 - 5.1 mmol/L 10/18/2022 4:47 PM SCREW MACHINE OPERATOR [facility] CHLORIDE 101 100 - 110 mmol/L 10/18/2022 4:47 PM SCREW MACHINE OPERATOR [facility] CO2, VENOUS 27 22 - 32 mmol/L 10/18/2022 4:47 PM [facility] ANION GAP 15.5 8.0 - 20.0 mmol/L 10/18/2022 4:47 PM [facility] GLUCOSE 149(H) 70 - 99 mg/dL 10/18/2022 4:47 PM [facility] BUN 24(H) 8 - 23 mg/dL 10/18/2022 4:47 PM [facility] CREATININE, BLOOD 0.74 0.60 - 1.10 mg/dL 10/18/2022 4:47 PM [facility] BUN/CREATININE RATIO 32(H) 12 - 20 ratio 10/18/2022 4:47 PM [facility] TOTAL PROTEIN 7.9 6.0 - 8.3 g/dL 10/18/2022 4:47 PM [facility] ALBUMIN 4.2 3.5 - 5.2 g/dL 10/18/2022 4:47 PM [facility] Comment: The colormetric methods used for the determination of Albumin may lead to falsely elevated test results in patients suffering from renal failure or insufficiency due to interference with other proteins. A/G RATIO 1.1 1.0 - 2.0 10/18/2022 4:47 PM [facility] CALCIUM 9.5 8.9 - 10.3 mg/dL 10/18/2022 4:47 PM [facility] T BILI 0.4 <=1.2 mg/dL 10/18/2022 4:47 PM [facility] SGOT (AST) 20 <=32 U/L 10/18/2022 4:47 PM [facility] SGPT (ALT) 17 <=41 U/L 10/18/2022 4:47 PM [facility] ALKALINE PHOSPHATASE 96 35 - 105 U/L 10/18/2022 4:47 PM [facility] IS THE PATIENT REQUIRED TO BE FASTING? No 10/18/2022 4:47 PM SCREW MACHINE OPERATOR [facility] GFR, ESTIMATED >60 >=60 10/18/2022 4:47 PM SCREW MACHINE OPERATOR [facility] Comment: Creatinine Clearance is the preferred criteria for selecting drug dose adjustments in renally impaired patients. ??The GFR is provided as additional pertinent clinical information. GFR is reported in mL/min/1.73 sq m. Calculation based on the Chronic Kidney Disease Epidemiology Collaboration (CKD- EPI) equation refit without adjustment for race. GFR, EST. >60 >=60 023 4:47 PM SCREW MACHINE OPERATOR [facility] GFR, EST. NONAFRICAN >60 >=60 10/18/2022 4:47 PM SCREW MACHINE OPERATOR [facility] Blood Venipuncture / Unknown 10/18/2022 2:15 PM SCREW MACHINE OPERATOR 10/18/2022 2:15 PM SCREW MACHINE OPERATOR us Bhargavi Morel PAC CHEMISTRY ORDERABLES Fin al Result [facility] [address] [place] [address] documented in this encounter Visit Diagnoses Diagnosis Type 2 diabetes mellitus without complication, without long-term current use of insulin (HCC) Essential (primary) hypertension Unspecified essential hypertension Hypothyroidism, unspecified type Vitamin D deficiency Unspecified vitamin D deficiency documented in this encounter Additional Health Concerns Assessment Noted Time PHQ-9 Depression Total Score: 0 10/18/19 23 1:27 PM SCREW MACHINE OPERATOR documented as of this encounter Care Teams Post Tensioning Ironworker Relationship Specialty Start Date End Date Jovita Bermudez MD [address] [place] [address] PCP - General Family Medicine 11/30/20 07/21/23 documented as of this encounter
--- OUTSIDE RECORDS SUMMARY | 2024-08-30 18:49 | XMS_ITS | Encounter Summary ---
Author Organization [facility] [employer] Care Team Providers Care Cyanide Pot Tender Name Role Phone Jovita Bermudez MD Primary Care Provider [phone] Flaquito Hurd MD Unavailable Encounter Details Date Type Department Care Team (Latest Contact Info) Description 11/09/2022 Travel Social History Tobacco Use Types Packs/Day [...] PM CDT documented as of this encounter Plan of Treatment Upcoming Encounters Date Type Department Care Team (Late st Contact Info) Description 10/29/2024 9:30 AM COMIC BOOK WRITER Office Visit [facility] Medical Group - Family Medicine [facility] [address] [place] [address] Bhargavi Morel, PAC [address] [place] [address] documented as of this encounter Visit Diagnoses Not on filedocumented in this encounter Additional Health Concerns Assessment Noted Time PHQ-9 Depression Total Score: 0 10/18/19 1:27 PM COMIC BOOK WRITER documented as of this encounter Care Teams Cyanide Pot Tender Relationship Specialty Start Date End Date Jovita Bermudez MD [address] [place] [address] PCP - General Family Medicine 11/30/20 07/21/23 Flaquito Hurd MD [address] [place] [address] Consulting Physician Pulmonary Disease 11/09/22 documented as of this encounter
--- OUTSIDE RECORDS SUMMARY | 2024-08-30 18:49 | XMS_ITS | Encounter Summary ---
Author Organization [facility] Address [address] [place] [address] Phone Care Team Providers Care Buyer Planner Name Role Phone Jovita Bermudez MD Primary Care Provider [phone]- [phone] Bhargavi Morel Primary Care Provider + Flaquito Hurd MD Unavailable Wes Petty MD Unavailable Reason for Visit * Reason Comments Medication Refill Encounter Details Date Type Department Care Team (Late st Contact Info) Description 06/12/2023 Refill [facility] [address] [place] [id number] Jovita Bermudez MD [address] [place] [address] Medication Refill Social History Tobacco [...] Telephone Encounter - Reanna Rios RN - 06/12/2023 4:06 PM CDT PDMP 05/09/23 - 7 days Medication failed the protocol, provider to review and approve the medication order if appropriate. Requested Prescriptions Pending Prescriptions Disp Refills traMADol (ULTRAM) 50 MG Tablet [Pharmacy Med Name: TRAMADOL HCL 50MG TABS] 28 Tablet 0 Sig: TAKE ONE TABLET BY MOUTH EVERY 6 HOURS NEEDED FOR MODERATE MD SEVERE PAIN Not Delegated - Opioid Agonists Protocol Failed - 06/12/2023 1:11 PM Failed - This refill cannot be [...] st Contact Info) Description 10/29/2024 9:30 AM MOWER MECHANIC Office Visit [facility] - Family Medicine - [place] [address] [place] [address] Bhargavi Morel, ARAM [address] [place] [address] documented as of this encounter Visit Diagnoses Diagnosis Pain and swelling of right knee documented in this encounter Additional Health Concerns Assessment Noted Time PHQ-9 Depression Total Score: 0 10/18/19 1:27 PM MOWER MECHANIC documented as of this encounter Care Teams Buyer Planner Relationship Specialty Start Date End Date Jovita Bermudez MD [address] [place] [address] PCP - General Family Medicine 11/30/20 07/21/23 Bhargavi Morel PAC [address] [place] [address] PCP - General Physician Bottomer Operator 07/22/23 Flaquito Hurd MD [address] [place] [phone] Consulting Physician Pulmonary Disease 11/09/22 Wes Petty MD [address] [phone] Consulting Physician Urology 01/18/24 documented as of this encounter
--- OUTSIDE RECORDS SUMMARY | 2024-08-30 18:49 | XMS_ITS | Encounter Summary ---
Author Organization [facility] Address [address] [place] [address] Phone Care Team Providers Care Banking Specialist Name Role Phone Jovita Bermudez MD Primary Care Provider [phone]- [phone] Flaquito Hurd MD Unavailable Reason for Visit * Reason Onset Date Comments Advice Only 04/09/2023 Encounter Details Date Type Department Care Team (Late st Contact Info) Description 04/09/2023 Telephone [facility] [address] [place] [address] Jovita Bermudez MD [address] [place] [address] Advice Only Social History Tobacco Use Types [...] Telephone Encounter - Xochilt Easley RN - 04/10/2023 8:15 AM CDT Spoke to pt, discussed using [facility] parking and their hours. * Telephone Encounter - Shadi Box - 04/09/2023 5:15 PM CDT Patient called because she tried to go to apt today and there is no where to park. She stated that she cant walk that far. If someone can please give her a follow up call and tell her where she needsto park for her apt tomorrow 04/10/23 documented in this encounter Plan of Treatment Upcoming Encounters Date Type Department Care Team (Late st Contact Info) Description 10/29/2024 9:30 AM LAY OUT MACHINE OPERATOR Office Visit [facility] [address] [place] [address] Bhargavi Morel PAC [address] [place] [address] documented as of this encounter Visit Diagnoses Not on filedocumented in this encounter Additional Health Concerns Assessment Noted Time PHQ-9 Depression Total Score: 0 10/18/19 23 1:27 PM LAY OUT MACHINE OPERATOR documented as of this encounter Care Teams Banking Specialist Relationship Specialty Start Date End Date Jovita Bermudez MD [address] [place] [address] PCP - General Family Medicine 11/30/20 07/21/23 Flaquito Hurd MD [address] [place] [address] Consulting Physician Pulmonary Disease 11/09/22 documented as of this encounter
--- OUTSIDE RECORDS SUMMARY | 2024-08-30 18:49 | XMS_ITS | Encounter Summary ---
Author Organization [facility] Address [address] [place] [address] Phone Care Team Providers Care Cartridge Loading Operator Name Role Phone Jovita Bermudez MD Primary Care Provider [phone] Bhargavi Morel Primary Care Provider + Flaquito Hurd MD Unavailable Wes Petty MD Unavailable Reason for Visit * Reason Comments Medication Refill Encounter Details Date Type Department Care Team (Late st Contact Info) Description 11/01/2022 Refill [facility] Family Medicine [facility] [address] [place] [phone] Jovita Bermudez MD [address] [place] [address] Medication Refill Social History Tobacco [...] Coronavirus/COVID-19? No / Unsure 10/18/2022 1:12 PM MOLDED GOODS OPERATOR documented as of this encounter Miscellaneous Notes * Telephone Encounter - Irena Gross RN - 11/01/2022 9:56 AM MOLDED GOODS OPERATOR Medication failed the protocol, provider to review and approve the medication order if appropriate. Requested Prescriptions Pending Prescriptions Disp Refills traMADol (ULTRAM) 50 MG Tablet [Pharmacy Med Name: TRAMADOL HCL 50MG TABS] 28 Tablet 0 Sig: TAKE ONE TABLET BY MOUTH EVERY 6 HOURS NEEDED FOR MODERATE OR MORE SEVERE PAIN Not Delegated - Opioid Agonists Protocol Failed - 11/01/2022 9:14 AM Failed - This refill cannot be delegated Passed - Visit with relevant provider in past 12 months or upcoming 90 days Recent Visits Date Type Provider Dept 10/18/22 Office Visit Bhargavi Morel PAC [facility] 05/04/22 Office Visit Bhargavi Morel PAC [facility] [place] Showing recent visits within past 365 days and meeting all other requirements Future Appointments Date Type Provider Dept 01/17/23 Appointment Jovita Bermudez MD [facility] Showing future appointments within next 90 days and meeting all other requirements ED GOODS OPERATOR documented in this encounter Plan of Treatment Upcoming Encounters Date Type Department Care Team (Late st Contact Info) Description 10/29/2024 9:30 AM MOLDED GOODS OPERATOR Office Visit [facility] - Family Medicine - [address] [place] [address] Bhargavi Morel, ARAM [address] [place] [address] documented as of this encounter Visit Diagnoses Diagnosis Pain and swelling of right knee documented in this encounter Additional Health Concerns Assessment Noted Time PHQ-9 Depression Total Score: 0 10/18/19 1:27 PM MOLDED GOODS OPERATOR documented as of this encounter Care Teams Cartridge Loading Operator Relationship Specialty Start Date End Date Jovita Bermudez MD [address] [place] [address] PCP - General Family Medicine 11/30/20 07/21/23 Bhargavi Morel PAC [address] [place] [address] PCP - General Physician Certified Adaptive Physical Educator 07/22/23 Flaquito Hurd MD [address] [place] [address] Consulting Physician Pulmonary Disease 11/09/22 Wes Petty MD [address] [address] Consulting Physician Urology 01/18/24 documented as of this encounter
--- OUTSIDE RECORDS SUMMARY | 2024-08-30 18:49 | XMS_ITS | Encounter Summary ---
Author Organization [facility] Address [address] [place] [address] Phone Care Team Providers Care Controls Project Engineer Name Role Phone Jovita Bermudez MD Primary Care Provider [phone] Flaquito Hurd MD Unavailable Reason for Visit * Reason Onset Date Comments Appointment 01/16/2023 Encounter Details Date Type Department Care Team (Late st Contact Info) Description 01/16/2023 Telephone [facility] [address] [place] [address] Jovita Bermudez MD [address] [place] [address] Appointment Social History Tobacco Use Types Packs/Day Years [...] encounter Miscellaneous Notes * Telephone Encounter - Deysi Nolen - 01/16/2023 2:55 PM CDT Situation: patient is calling regarding appt Background: (information related to call): patient calling to reschedule appt Action/Response: appt scheduled for 03/14/2023 documented in this encounter Plan of Treatment Upcoming Encounters Date Type Department Care Team (Late st Contact Info) Description 10/29/2024 9:30 AM SEXER Office Visit [facility] - Family [facility] [address] [place] [address] Bhargavi Morel PAC [address] [place] [address] documented as of this encounter Visit Diagnoses Not on filedocumented in this encounter Additional Health Concerns Assessment Noted Time PHQ-9 Depression Total Score: 0 10/18/19 1:27 PM SEXER documented as of this encounter Care Teams Controls Project Engineer Relationship Specialty Start Date End Date Jovita Bermudez MD [address] [place] [address] PCP - General Family Medicine 11/30/20 07/21/23 Flaquito Hurd MD [address] [place] [address] Consulting Physician Pulmonary Disease 11/09/22 documented as of this encounter
--- OUTSIDE RECORDS SUMMARY | 2024-08-30 18:49 | XMS_ITS | Encounter Summary ---
Author Organization [facility] Address [address] [place] [address] Phone Care Team Providers Care Membership Sales Advisor Name Role Phone Jovita Bermudez MD Primary Care Provider [phone]- [phone] Bhargavi Morel Primary Care Provider + Flaquito Hurd MD Unavailable Wes Petty MD Unavailable Reason for Visit * Reason Comments Medication Refill Encounter Details Date Type Department Care Team (Late st Contact Info) Description 05/16/2023 Refill [facility] Family [facility] [address] [place] [address] Bhargavi Morel PAC [address] [place] [address] Medication Refill Social History Tobacco [...] st Contact Info) Description 10/29/2024 9:30 AM PLASTIC TOP ASSEMBLER Office Visit [facility] - [facility] [address] [place] [address] Bhargavi Morel PAC [address] [place] [address] documented as of this encounter Visit Diagnoses Diagnosis Type 2 diabetes mellitus without complication, without long-term current use of insulin (HCC) documented in this encounter Additional Health Concerns Assessment Noted Time PHQ-9 Depression Total Score: 0 10/18/19 23 1:27 PM PLASTIC TOP ASSEMBLER documented as of this encounter Care Teams Membership Sales Advisor Relationship Specialty Start Date End Date Jovita Bermudez MD [address] [place] [address] PCP - General Family Medicine 11/30/20 07/21/23 Bhargavi Morel PAC [address] [place] [address] PCP - General Physician Metal Fabricator Welder 07/22/23 Flaquito Hurd MD [address] [place] [address] Consulting Physician Pulmonary Disease 11/09/22 Wes Petty MD [address] [address] Consulting Physician Urology 01/18/24 documented as of this encounter
--- OUTSIDE RECORDS SUMMARY | 2024-08-30 18:49 | XMS_ITS | Encounter Summary ---
Author Organization [facility] Personal [employer] Care Team Providers Care Benefits Processor Name Role Phone Jovita Bermudez MD Primary Care Provider [phone] Flaquito Hurd MD Unavailable Encounter Details Date Type Department Care Team (Latest Contact Info) Description 04/10/2023 Travel Social History Tobacco Use Types Packs/Day [...] Contact Info) Description 10/29/2024 9:30 AM SECURITY DIRECTOR Office Visit [facility] Medical [facility] [address] [place] [address] Bhargavi Morel, PAC [address] [place] [address] documented as of this encounter Visit Diagnoses Not on filedocumented in this encounter Additional Health Concerns Assessment Noted Time PHQ-9 Depression Total Score: 0 10/18/19 23 1:27 PM SECURITY DIRECTOR documented as of this encounter Care Teams Benefits Processor Relationship Specialty Start Date End Date Jovita Bermudez MD [address] [place] [address] PCP - General Family Medicine 11/30/20 07/21/23 Flaquito Hurd MD [address] [place] [address] Consulting Physician Pulmonary Disease 11/09/22 documented as of this encounter
--- OUTSIDE RECORDS SUMMARY | 2024-08-30 18:49 | XMS_ITS | Encounter Summary ---
Author Organization [facility] Address [address] [place] [address] Phone Care Team Providers Care Director Of Event Management Name Role Phone Jovita Bermudez MD Primary Care Provider [phone] Bhargavi Morel Primary Care Provider + Flaquito Hurd MD Unavailable Wes Petty MD Unavailable Reason for Visit * Reason Comments Medication Refill Encounter Details Date Type Department Care Team (Late st Contact Info) Description 01/02/2023 Refill [facility] Family Medicine [facility] [address] [place] [address] Jovita Bermudez MD [address] [place] [address] Medication Refill Social History Tobacco [...] Telephone Encounter - Reanna Rios RN - 01/02/2023 3:38 PM CDT PDMP 11/01/22 Medication failed the protocol, provider to review and approve the medication order if appropriate. Requested Prescriptions Pending Prescriptions Disp Refills traMADol (ULTRAM) 50 MG Tablet [Pharmacy Med Name: TRAMADOL HCL 50MG TABS] 28 Tablet 0 Sig: TAKE 1 TABLET BY MOUTH EVERY 6 HOURS NEEDED FOR MODERATE OR MORE SEVERE PAIN Not Delegated - Opioid Agonists Protocol Failed - 01/02/2023 11:05 AM Failed - This refill cannot be delegated Passed - Visit with relevant provider in past 12 months or upcoming 90 days Recent Visits Date Type Provider Dept 10/18/22 Office Visit Bhargavi Morel PAC [facility] 05/04/22 Office Visit Bhargavi Morel PAC [facility] Showing recent visits within past 365 days and meeting all other requirements Future Appointments Date Type Provider Dept 01/17/23 Appointment Jovita Bermudez MD [facility] Showing future appointments within next 90 days and meeting all other requirements documented in this encounter Plan of Treatment Upcoming Encounters Date Type Department Care Team (Late st Contact Info) Description 10/29/2024 9:30 AM PEDIATRICS HOSPITALIST Office Visit [facility] Medical Group - Family Medicine - [place] [address] [place] [address] Bhargavi Morel PAC [address] [place] [address] documented as of this encounter Visit Diagnoses Diagnosis Pain and swelling of right knee documented in this encounter Additional Health Concerns Assessment Noted Time PHQ-9 Depression Total Score: 0 10/18/19 1:27 PM PEDIATRICS HOSPITALIST documented as of this encounter Care Teams Director Of Event Management Relationship Specialty Start Date End Date Jovita Bermudez MD [address] [facility] [place] [address] PCP - General Family Medicine 11/30/20 07/21/23 Bhargavi Morel PAC [address] [facility] [place] [address] PCP - General Physician Director Peoplesoft 07/22/23 Flaquito Hurd MD [address] [place] [address] Consulting Physician Pulmonary Disease 11/09/22 Wes Petty MD [address] [address] [address] Consulting Physician Urology 01/18/24 documented as of this encounter
--- OUTSIDE RECORDS SUMMARY | 2024-08-30 18:49 | XMS_ITS | Encounter Summary ---
Author Organization [facility] Address [address] [place] [address] Phone Care Team Providers Care Charhouse Worker Name Role Phone Jovita Bermudez MD Primary Care Provider [phone]- [phone] Bhargavi Morel Primary Care Provider + Flaquito Hurd MD Unavailable Wes Petty MD Unavailable Reason for Visit * Reason Comments Medication Refill Encounter Details Date Type Department Care Team (Late st Contact Info) Description 03/29/2023 Refill [facility] [address] [place] [phone] Jovita Bermudez MD [address] [place] [address] Medication Refill Social History Tobacco [...] Telephone Encounter - Reanna Rios RN - 03/29/2023 4:39 PM CDT PDMP Tramadol 02/22/23 - 7 days Medication failed the protocol, provider to review and approve the medication order if appropriate. Requested Prescriptions Pending Prescriptions Disp Refills Jardiance 25 MG Tablet [Pharmacy Med Name: JARDIANCE 25MG TABS] 30 Tablet 2 Sig: TAKE ONE TABLET BY MOUTH EVERY DAY SGLT2 Inhibitors Protocol Passed - 03/29/2023 11:05 AM Passed - Visit with relevant provider in past 6 months or upcoming 90 days Recent Visits Date Type Provider Dept 10/18/22 Office Visit Bhargavi Morel PAC [facility] Showing recent visits within past 182 days and meeting all other requirements Future Appointments Date Type Provider Dept 04/10/23 Appointment Bhargavi Morel PAC [facility] Showing [...] Ref Range Status 10/18/2022 >60 >=60 Final traMADol (ULTRAM) 50 MG Tablet [Pharmacy Med Name: TRAMADOL HCL 50MG TABS] 28 Tablet 0 Sig: TAKE ONE TABLET BY MOUTH EVERY 6 HOURS NEEDED FOR MODERATE OR MORE SEVERE PAIN Not Delegated - Opioid Agonists Protocol Failed - 03/29/2023 11:05 AM Failed - This refill cannot be delegated Passed - Visit with relevant provider in past 12 months or upcoming 90 days Recent Visits Date Type Provider Dept 10/18/22 Office Visit Bhargavi Morel PAC [facility] 05/04/22 Office Visit Bhargavi Morel PAC [facility] Showing recent visits within past 365 days and meeting all other requirements Future Appointments Date Type Provider Dept 04/10/23 Appointment Bhargavi Morel PAC [facility] Showing future appointments within next 90 days and meeting all other requirements documented in this encounter Plan of Treatment Upcoming Encounters Date Type Department Care Team (Late st Contact Info) Description 10/29/2024 9:30 AM CHUTE TENDER Office Visit [facility] - Family [facility] [address] [place] [address] Bhargavi Morel PAC [address] [place] [address] documented as of this encounter Visit Diagnoses Diagnosis Pain and swelling of right knee documented in this encounter Additional Health Concerns Assessment Noted Time PHQ-9 Depression Total Score: 0 10/18/19 1:27 PM CHUTE TENDER documented as of this encounter Care Teams Charhouse Worker Relationship Specialty Start Date End Date Joviat Bermudez MD [address] [place] [address] PCP - General Family Medicine 11/30/20 07/21/23 Bhargavi Morel PAC [address] [place] [address] PCP - General Physician Welder Machine Operator 07/22/23 Flaquito Hurd MD [address] [place] [address] Consulting Physician Pulmonary Disease 11/09/22 Wes Petty MD [address] [address] Consulting Physician Urology 01/18/24 documented as of this encounter
--- OUTSIDE RECORDS SUMMARY | 2024-08-30 18:49 | XMS_ITS | Encounter Summary ---
Author Organization [facility] Address [address] [place] [address] Phone Care Team Providers Care Lithographic General Worker Name Role Phone Jovita Bermudez MD Primary Care Provider [phone] Reason for Referral * Radiology Services (Routine) - Closed Specialty Diagnoses / Procedures Referred By Shayan dhillon Referred To Contact Radiology Diagnoses Post-menopausal Procedures ZUNILDA BONE DENSITOMETRY AXIAL SKELETON Bhargavi Morel PAC [address] [place] [address] Phone: tel: fax: Referral ID Status Reason Start Date Expiration Date Visits Re quested Visits Authorized [id number] Closed 10/18/2022 1 1 ER SCREEN INSTALLER * Radiology Services (Routine) - Closed Specialty Diagnoses / Procedures Referred By Shayan dhillon Referred To Contact Radiology Diagnoses Screening mammogram for breast cancer Procedures ZUNILDA SCREENING BILATERAL DIGITAL W CAD W LYN Bhargavi Morel PAC [address] [place] [address] Phone: tel: fax: Referral ID Status Reason Start Date Expiration Date Visits Re quested Visits Authorized [id number] Closed 10/18/2022 1 1 ER SCREEN INSTALLER Reason for Visit * Reason Comments Diabetes Mellitus Encounter Details Date Type Department Care Team ([facility] st Contact Info) Description 10/18/2022 1:30 PM SHOWER SCREEN INSTALLER Office Visit [facility] [place] [address] [place] [address] Bhargavi Morel, PAC [address] [facility] [place] [address] Type 2 diabetes mellitus without complication, without long-term current use of insulin (HCC) (Primary Dx); Hypothyroidism, unspecified type; Essential (primary) hypertension; Vitamin D deficiency; Screening mammogram for breast cancer; Post-menopausal Discharge Disposition: Discharged to home or Selfcare [...] Coronavirus/COVID-19? No / Unsure 10/18/2022 1:12 PM SHOWER SCREEN INSTALLER documented as of this encounter Last Filed Vital Signs Vital Sign Reading Time Taken Comments Blood Pressure 124/76 10/18/2022 1:22 PM SHOWER SCREEN INSTALLER Pulse 116 10/18/2022 1:22 PM SHOWER SCREEN INSTALLER Temperature 36.7 ??C (98.1 ??F) 10/18/2022 1:22 PM CS T Respiratory Rate 16 10/18/2022 1:22 PM SHOWER SCREEN INSTALLER Oxygen Saturation 96% 10/18/2022 1:22 PM SHOWER SCREEN INSTALLER Inhaled Oxygen Concentration - - Weight 103 kg (227 lb) 10/18/2022 1:22 PM SHOWER SCREEN INSTALLER Height 165.1 cm (5' 5 ) 10/18/2022 1:22 PM SHOWER SCREEN INSTALLER Body Mass Index 37.77 10/18/2022 1:22 PM SHOWER SCREEN INSTALLER documented in this encounter Functional Status * Question Answer Date of Assessment Author Little interest or pleasure in doing things Not at all 10/18/2022 1:27 PM SHOWER SCREEN INSTALLER Berenice Bray cia, RMA Feeling down, depressed, or hopeless Not at all 10/18/2022 1:27 PM SHOWER SCREEN INSTALLER Berenice Bray cia, RMA * Over the past 2 weeks, how often have you been bothered by any of the following problems? Question Answer Date of Assessment Author Patient Health Questionnaire-2 Score 0 10/18/2022 1:27 PM SHOWER SCREEN INSTALLER Maeve Bray RMA documented as of this encounter Patient Instructions * Patient Instructions* Bhargavi Morel PAC - 10/18/2022 1:30 PM SHOWER SCREEN INSTALLER Labs today as ordered ER SCREEN INSTALLER documented in this encounter Progress Notes * Lo Bray RMA - 10/18/2022 1:30 PM CST Tressa Myers, 67 y.o., female is here for Diabetes Mellitus Medication Refills: Patient reports/denies need for medication refills. Orders Pended: yes Requested Prescriptions No prescriptions requested or ordered in this encounter Home Medications Medication Sig Start Date End Date Taking? Authorizing Provider albuterol 108 (90 Base) MCG/ACT Aerosol Solution take 2 Puffs by inhalation every 4 hours as neededfor Wheezing or Cough. 05/04/22 Yes Bhargavi Morel PAC Ascorbic Acid 500 MG Chewable Tablet Take 500 mg by mouth. Yes ProviderHomero MD aspirin EC 81 MG Tablet Delayed Response Take 81 mg by mouth. Yes ProviderHomero MD atorvastatin (LIPITOR) 20 MG Tablet Take 1 Tablet by mouth daily. Patient not taking: Reported on 10/18/2022 09/04/22 Jovita Bermudez MD Blood Glucose Monitoring Suppl Device glDiagnosis: Diabetes type 2 Blood testing frequency: once a day 02/23/21 Yes Jovita Bermudez MD clobetasol (TEMOVATE) 0.05 % Gel APPLY TO NEW LESIONS ON ARMS COVER WITH TAPE THEN WASH OFF IN THE MORNING. REPEAT PROCESS UNTIL LESIONS ARE FLAT THEN USE TWICE A WEEK MA 11/24/20 Yes Homero Pugh MD dilTIAZem (CARDIZEM CD) 120 MG CAPSULE SR 24 HR TAKE ONE CAPSULE BY MOUTH EVERY DAY 06/20/22 Yes Jovita Bermudez MD fluconazole (DIFLUCAN) 150 MG Tablet Take 1 Tablet by mouth once for 1 dose. 04/20/22 04/20/22 Jovita Bermudez MD furosemide (LASIX) 40 MG Tablet Take 0.5 Tablets by mouth daily. 05/04/21 Yes Jovita Bermudez MD gabapentin (NEURONTIN) 600 MG Tablet TAKE 1 TABLET BY MOUTH DAILY 04/19/22 Yes Debra Roque APRN, [facility] Glucose Blood Strip Diagnosis: Diabetes type 2 Blood testing frequency: once a day 02/23/21 Yes Jovita Bermudez MD Januvia 100 MG Tablet TAKE ONE TABLET BY MOUTH ONCE DAILY 08/15/22 Yes Jovita Bermudez MD Jardiance 25 MG Tablet TAKE ONE TABLET BY MOUTH EVERY DAY 09/14/22 Yes Jovita Bermudez MD levothyroxine (SYNTHROID) 75 MCG Tablet TAKE ONE TABLET BY MOUTH EVERY DAY 07/19/22 Yes Jovita Bermudez MD losartan (COZAAR) 25 MG Tablet 06/13/21 Yes Homero Pugh MD metFORMIN (GLUCOPHAGE) 1000 MG Tablet TAKE ONE TABLET BY MOUTH TWICE A DAY 05/29/22 Yes Jovita Bermudez MD metoprolol Succinate (TOPROL-XL) 100 MG TABLET SR 24 HR Take 2 Tablets by mouth daily. Patient taking differently: Take 150 mg by mouth daily. 05/04/21 Jovita Bermudez MD mupirocin (BACTROBAN) 2 % Ointment APPLY TO OPEN SORES ON ARMS THREE TIMES DAILY FOR 1 WEEK Patient not taking: Reported on 10/18/2022 11/23/20 Homero Pugh MD PARoxetine (PAXIL) 40 MG Tablet TAKE ONE TABLET BY MOUTH EVERY DAY 03/21/22 Yes Jovita Bermudez MD simvastatin (ZOCOR) 40 MG Tablet 09/23/22 Yes Homero Pugh MD traMADol (ULTRAM) 50 MG Tablet TAKE ONE TABLET BY MOUTH EVERY 6 HOURS NEEDED FOR MODERATE OR MORE SEVERE PAIN 08/08/22 Yes Jovita Bermudez MD VITAMIN D PO Take by mouth daily. Yes Provider, MD Homero warfarin (COUMADIN) 2 MG Tablet Take 1.5 Tablets by mouth. 11/30/20 Yes Jovita Bermudez MD There are no discontinued medications. I have reviewed the home medication list with the patient and have reconciled discrepancies. The list is accurate to the best of my knowledge. Smoking Status: Social History Tobacco Use ??? Smoking status: Former Packs/day: 2.00 Years: 35.00 Pack years: 70.00 Types: Cigarettes ??? Smokeless tobacco: [...] Immunization (1 of 2) Never done ??? DTaP/Tdap/Td Immunization (2 - Td or Tdap) 04/03/2016 Orders Pended: no The following BPA's have been addressed with the patient today: Fall Risk functional nutritional Acp ER SCREEN INSTALLER * Bhargavi Morel PAC - 10/18/2022 1:30 PM CST Subjective: Patient in the office today for follow up on chronic health conditions Denies any acute concerns Feels she has been doing well, no change in health status Review of Systems Constitutional: Negative for chills and fever. HENT: Negative for sore throat and trouble swallowing. Respiratory: Negative for cough and chest tightness. Chronic sob, no worsening, uses albuterol about 1 time per week Cardiovascular: Negative for chest pain, palpitations and leg swelling. Gastrointestinal: Negative for abdominal pain. Genitourinary: Negative for difficulty urinating and dysuria. Neurological: Negative for dizziness, light-headedness and headaches. Objective: Physical Exam Vitals reviewed. Constitutional: Appearance: Normal appearance. She is not ill-appearing. HENT: Head: Normocephalic and atraumatic. Mouth/Throat: Mouth: Mucous membranes are moist. Eyes: General: Right eye: No discharge. Left eye: No discharge. Extraocular Movements: Extraocular movements intact. Cardiovascular: Heart sounds: No murmur heard. Comments: Irregular rate and rhythm with atrial fibrillation Pulmonary: Effort: Pulmonary effort is normal. No respiratory distress. Breath sounds: Normal breath sounds. No wheezing. Skin: General: Skin is warm. Neurological: Mental Status: She is alert. Psychiatric: Mood and Affect: Mood normal. Bilateral lower extremities without edema Assessment and Plan See Diagnoses, Orders, Follow-up, and Instructions .Diagnoses and all orders for this visit: Type 2 diabetes mellitus without complication, without long-term current use of insulin (HCC) - CMP (COMPREHENSIVE METABOLIC PANEL); Future - COMPLETE BLOOD COUNT (CBC) WITH DIFF; Future - HEMOGLOBIN A1C W/ ESTIMATED GLUCOSE; Future Hypothyroidism, unspecified type - THYROID STIMULATING HORMONE (TSH); Future Essential (primary) hypertension - CMP (COMPREHENSIVE METABOLIC PANEL); Future - COMPLETE BLOOD COUNT (CBC) WITH DIFF; Future Vitamin D deficiency - VITAMIN D, 25 HYDROXY TOTAL; Future Screening mammogram for breast cancer - [facility] SCREENING BILATERAL DIGITAL W CAD W LYN; Future Post-menopausal - [facility] BONE DENSITOMETRY AXIAL SKELETON; Future Other orders - simvastatin (ZOCOR) 40 MG Tablet - albuterol 108 (90 Base) MCG/ACT Aerosol Solution; take 2 Puffs by inhalation every 4 hours as needed. Reviewed medications, patient is taking simvastatin from c iron worker inr is monitored with c iron worker Labs today for follow up on diabetes, hypothyroidism Continue current medications for diabetes and levothyroxine Screenings as ordered for future Instructed to have CT chest completed as previously ordered, order was extended Follow up in 3 months, consider medication adjustment if hga1c above 7 ER SCREEN INSTALLER documented in this encounter Plan of Treatment Upcoming Encounters Date Type Department Care Team (Late st Contact Info) Description 10/29/2024 9:30 AM SHOWER SCREEN INSTALLER Office Visit [facility] [place] [address] [place] [address] Bhargavi Morel PAC [address] [place] [address] Scheduled Orders Name Type Priority Associated Diagnoses Orde r Schedule ZUNILDA SCREENING BILATERAL DIGITAL W CAD W LYN Imaging Routine Screening mammogram for breast cancer Expected: 04/16/2023, Expires: 10/17/2023 [facility] BONE DENSITOMETRY AXIAL SKELETON Imaging Routine Post-menopausal Expected: 04/16/2023, Expires: 10/17/2023 documented as of this encounter Results * (ABNORMAL) VITAMIN D, 25 HYDROXY TOTAL (10/18/2022 2:15 PM SHOWER SCREEN INSTALLER) VITAMIN D, 25 HYDROX 26(L) >=30 ng/mL 10/18/2022 4:57 PM SHOWER SCREEN INSTALLER [facility] Blood Venipuncture / Unknown 10/18/2022 2:15 PM SHOWER SCREEN INSTALLER 10/18/2022 2:15 PM SHOWER SCREEN INSTALLER Narrative [facility] - 10/18/2022 4:57 PM SHOWER SCREEN INSTALLER Published reference ranges for Vitamin D vary depending on time and place and method of testing, and on patient's age, sex, ethnicity and levels of other measured analytes such as parathormone, calcium and phosphorus. ??The result should be evaluated in conjunction with clinical findings and suspicions. [place] of [employer] and Endocrine Clinical Practice Guidelines: Status Vitamin D levels (ng/mL) Deficient <=20 At risk of inadequacy 21-29 Sufficient 30-100 Centers of Disease Control and Prevention Guidelines: Status Vitamin D levels (ng/mL) Deficient <13 At risk of inadequacy 13-19 Sufficient 20-50 Possibly harmful >50 References: [place] [employer], 2010 Dietary reference intakes for calcium and vitamin D. [place]: ??The National Academies Press. Daniela M, Gina N, Rayo-Elpidio HURD, et al., Evaluation, treatment, and prevention of Vitamin D deficiency: an Endocrinology Clinical Practice Guideline. JCEM 2011 96: 7 2663-1178. Althea Velázquez, Kenroy Whitley, Etta Roman, et al., Vitamin D Status: ??[place], 1005, [facility] data brief, no. 59, MD [place]: ??National Center for Health Statistics. 2011. Bhargavi Morel PAC CHEMISTRY ORDERABLES Fin al Result [facility] [address] [place] [address] * (ABNORMAL) HEMOGLOBIN A1C W/ ESTIMATED GLUCOSE (10/18/2022 2:15 PM SHOWER SCREEN INSTALLER) HGB-A1C 8.2(H) 4.0 - 6.0 % 10/18/2022 4:40 PM SHOWER SCREEN INSTALLER [facility] Est Average Glucose 188.6 mg/dL 10/18/2022 4:40 PM SHOWER SCREEN INSTALLER [facility] Blood Venipuncture / Unknown 10/18/2022 2:15 PM SHOWER SCREEN INSTALLER 10/18/2022 2:15 PM SHOWER SCREEN INSTALLER Narrative [facility] - 10/18/2022 4:40 PM SHOWER SCREEN INSTALLER HEMOGLOBIN A1C: DIABETIC PATIENTS: WELL-CONTROLLED: ?? 6.2 - 7.0 INTERMEDIATE WELL-CONTROLLED: ??7.0 - 9.0 POORLY-CONTROLLED: ??>9.0 Bhargavi Morel PAC CHEMISTRY ORDERABLES Fin al Result Performing Organization Address [facility] Co de Phone Number [facility] [address] [place] [address] * THYROID STIMULATING HORMONE (TSH) (10/18/2022 2:15 PM SHOWER SCREEN INSTALLER) TSH 1.710 0.270 - 4.200 mIU/L 10/18/2022 4:47 PM SHOWER SCREEN INSTALLER [facility] Blood Venipuncture / Unknown 10/18/2022 2:15 PM SHOWER SCREEN INSTALLER 10/18/2022 2:15 PM SHOWER SCREEN INSTALLER Bhargavi Morel PAC CHEMISTRY ORDERABLES Fin al Result Performing Organization Address City/[facility]/ZIP Co de Phone Number [facility] [address] [place] [address] * (ABNORMAL) CMP (COMPREHENSIVE METABOLIC PANEL) (10/18/2022 2:15 PM SHOWER SCREEN INSTALLER) SODIUM 139 136 - 144 mmol/L 10/18/2022 4:47 PM [facility] POTASSIUM 4.5 3.5 - 5.1 mmol/L 10/18/2022 4:47 PM [facility] CHLORIDE 101 100 - 110 mmol/L 10/18/2022 4:47 PM [facility] CO2, VENOUS 27 22 - 32 mmol/L 10/18/2022 4:47 PM [facility] ANION GAP 15.5 8.0 - 20.0 mmol/L 10/18/2022 4:47 PM [facility] GLUCOSE 149(H) 70 - 99 mg/dL 10/18/2022 4:47 PM [facility] BUN 24(H) 8 - 23 mg/dL 10/18/2022 4:47 PM [facility] CREATININE, BLOOD 0.74 0.60 - 1.10 mg/dL 10/18/2022 4:47 PM [facility] BUN/CREATININE RATIO 32(H) 12 - 20 ratio 10/18/2022 4:47 PM [facility] TOTAL PROTEIN 7.9 6.0 - 8.3 g/dL 10/18/2022 4:47 PM [facility] ALBUMIN 4.2 3.5 - 5.2 g/dL 10/18/2022 4:47 PM [facility] Comment: The colormetric methods used for the determination of Albumin may lead to falsely elevated test results in patients suffering from renal failure or insufficiency due to interference with other proteins. A/G RATIO 1.1 1.0 - 2.0 10/18/2022 4:47 PM [facility] CALCIUM 9.5 8.9 - 10.3 mg/dL 10/18/2022 4:47 PM [facility] T BILI 0.4 <=1.2 mg/dL 10/18/2022 4:47 PM SHOWER SCREEN INSTALLER [facility] SGOT (AST) 20 <=32 U/L 10/18/2022 4:47 PM SHOWER SCREEN INSTALLER [facility] SGPT (ALT) 17 <=41 U/L 10/18/2022 4:47 PM SHOWER SCREEN INSTALLER [facility] ALKALINE PHOSPHATASE 96 35 - 105 U/L 10/18/2022 4:47 PM SHOWER SCREEN INSTALLER [facility] IS THE PATIENT REQUIRED TO BE FASTING? No 10/18/2022 4:47 PM SHOWER SCREEN INSTALLER [facility] GFR, ESTIMATED >60 >=60 10/18/2022 4:47 PM SHOWER SCREEN INSTALLER [facility] Comment: Creatinine Clearance is the preferred criteria for selecting drug dose adjustments in renally impaired patients. ??The GFR is provided as additional pertinent clinical information. GFR is reported in mL/min/1.73 sq m. Calculation based on the Chronic Kidney Disease Epidemiology Collaboration (CKD- EPI) equation refit without adjustment for race. GFR, EST. >60 >=60 023 4:47 PM SHOWER SCREEN INSTALLER [facility] GFR, EST. NONAFRICAN >60 >=60 10/18/2022 4:47 PM SHOWER SCREEN INSTALLER [facility] Blood Venipuncture / Unknown 10/18/2022 2:15 PM SHOWER SCREEN INSTALLER 10/18/2022 2:15 PM SHOWER SCREEN INSTALLER us Bhargavi Morel PAC CHEMISTRY ORDERABLES Fin al Result [facility] [address] [place] [address] documented in this encounter Visit Diagnoses Diagnosis Type 2 diabetes mellitus without complication, without long-term current use of insulin (HCC)- Primary Hypothyroidism, unspecified type Essential (primary) hypertension Unspecified essential hypertension Vitamin D deficiency Unspecified vitamin D deficiency Screening mammogram for breast cancer Post-menopausal Asymptomatic postmenopausal status (age-related) (natural) documented in this encounter Additional Health Concerns Assessment Noted Time PHQ-9 Depression Total Score: 0 10/18/19 23 1:27 PM SHOWER SCREEN INSTALLER documented as of this encounter Care Teams Lithographic General Worker Relationship Specialty Start Date End Date Jovita Bermudez MD [address] [place] [address] PCP - General Family Medicine 11/30/20 07/21/23 documented as of this encounter
--- OUTSIDE RECORDS SUMMARY | 2024-08-30 18:49 | XMS_ITS | Encounter Summary ---
Author Organization [facility] Address [address] [place] [address] Phone Care Team Providers Care Electrical And Instrument Technician Name Role Phone Jovita Bermudez MD Primary Care Provider [phone] Bhargavi Morel Primary Care Provider + Flaquito Hurd MD Unavailable Wes Petty MD Unavailable Reason for Visit * Reason Comments Medication Refill Encounter Details Date Type Department Care Team (Late st Contact Info) Description 10/18/[address] [facility] - Pulmonology & Sleep Medicine [facility] [address] [place] [phone] Debra Roque APRN, COUNTER CLERK [employer] [address] [address] Medication Refill Social History Tobacco Use Types [...] Coronavirus/COVID-19? No / Unsure 10/18/2022 1:12 PM DESTINATION COORDINATOR documented as of this encounter Functional Status * Question Answer Date of Assessment Author Little interest or pleasure in doing things Not at all 10/18/2022 1:27 PM DESTINATION COORDINATOR Berenice Bray cia, RMA Feeling down, depressed, or hopeless Not at all 10/18/2022 1:27 PM DESTINATION COORDINATOR Berenice Bray cia, RMA * Over the past 2 weeks, how often have you been bothered by any of the following problems? Question Answer Date of Assessment Author Patient Health Questionnaire-2 Score 0 10/18/2022 1:27 PM DESTINATION COORDINATOR Maeve Bray RMA documented as of this encounter Miscellaneous Notes * Telephone Encounter - Debra Roque APRN, CNP - 10/18/2022 1:06 PM DESTINATION COORDINATOR Patient has not been seen in almost 1 year and has no follow up scheduled. Will need to be scheduled for follow up before refill can be provided or she can request this through her PCP. INATION COORDINATOR * Telephone Encounter - Bhavna Lai RN - 10/18/2022 11:44 AM DESTINATION COORDINATOR Medication failed the protocol, provider to review and approve the medication order if appropriate. Requested Prescriptions Pending Prescriptions Disp Refills gabapentin (NEURONTIN) 600 MG Tablet [Pharmacy Med Name: GABAPENTIN 600MG TABS] 90 Tablet 1 Sig: TAKE ONE TABLET BY MOUTH EVERY DAY Not Delegated - Anticonvulsants Excluding Benzodiazepines Protocol Failed - 10/18/2022 11:02 AM Failed - This refill cannot be delegated Passed - Visit with relevant provider in past 12 months or upcoming 90 days Recent Visits Date Type Provider Dept 05/04/22 Office Visit Bhargavi Morel PAC [facility] 11/09/21 Office Visit Flaquito Hurd MD [facility] Pulm & Sleep [place] [facility] Showing recent visits within past 365 days and meeting all other requirements Today's Visits Date Type Provider Dept 10/18/22 Appointment Bhargavi Morel PAC [facility] [place] Showing today's visits and meeting all other requirements Future Appointments No visits were found meeting these conditions. Showing future appointments within next 90 days and meeting all other requirements INATION COORDINATOR documented in this encounter Plan of Treatment Upcoming Encounters Date Type Department Care Team (Late st Contact Info) Description 10/29/2024 9:30 AM DESTINATION COORDINATOR Office Visit [facility] - Family Medicine - [place] [address] [place] [address] Bhargavi Morel PAC [address] [place] [address] documented as of this encounter Visit Diagnoses Diagnosis Restless legs syndrome (RLS) documented in this encounter Additional Health Concerns Assessment Noted Time PHQ-9 Depression Total Score: 0 10/18/19 23 1:27 PM DESTINATION COORDINATOR documented as of this encounter Care Teams Electrical And Instrument Technician Relationship Specialty Start Date End Date Jovita Bermudez MD [address] [place] [address] PCP - General Family Medicine 11/30/20 07/21/23 Bhargavi Morel PAC [address] [place] [address] PCP - General Physician Assembly Machine Feeder 07/22/23 Flaquito Hurd MD [address] [place] [id number] Consulting Physician Pulmonary Disease 11/09/22 Wes Petty MD [address] [address] Consulting Physician Urology 01/18/24 documented as of this encounter
--- OUTSIDE RECORDS SUMMARY | 2024-08-30 18:49 | XMS_ITS | Encounter Summary ---
Author Organization [facility] Address [address] [place] [address] Phone Care Team Providers Care Bias Cutting Machine Operator Name Role Phone Jovita Bermudez MD Primary Care Provider [phone] Bhargavi Morel Primary Care Provider + Flaquito Hurd MD Unavailable Encounter Details Date Type Department Care Team (Late st Contact Info) Description 05/06/2023 Telephone [facility] [address] [place] [address] Bhargavi Morel PAC [address] [place] [address] Social History Tobacco Use Types Packs/Day Years [...] Deng CMA documented as of this encounter Miscellaneous Notes * Telephone Encounter - Lo Bray RMA - 05/09/2023 1:41 PM CDT LVM * Telephone Encounter - Lo Bray RMA - 05/08/2023 8:55 AM CDT LVm * Telephone Encounter - Bhargavi Morel PAC - 05/06/2023 5:07 PM CDT Patient should do labs that were ordered at last office visit documented in this encounter Plan of Treatment Upcoming Encounters Date Type Department Care Team (Late st Contact Info) Description 10/29/2024 9:30 AM WWE WRESTLER Office Visit [facility] [address] [place] [address] Bhargavi Morel PAC [address] [place] [address] documented as of this encounter Visit Diagnoses Not on filedocumented in this encounter Additional Health Concerns Assessment Noted Time PHQ-9 Depression Total Score: 0 10/18/19 1:27 PM WWE WRESTLER documented as of this encounter Care Teams Bias Cutting Machine Operator Relationship Specialty Start Date End Date Jovita Bermudez MD [address] [place] [address] PCP - General Family Medicine 11/30/20 07/21/23 Bhargavi Morel PAC [address] [place] [address] PCP - General Physician Admeasurer 07/22/23 Flaquito Hurd MD [address] [place] [address] Consulting Physician Pulmonary Disease 11/09/22 documented as of this encounter
--- OUTSIDE RECORDS SUMMARY | 2024-08-30 18:49 | XMS_ITS | Encounter Summary ---
Author Organization [facility] Address [address] [place] [address] Phone Care Team Providers Care College Counselor Name Role Phone Jovita Bermudez MD Primary Care Provider [phone] Flaquito Hurd MD Unavailable Reason for Visit * Reason Comments Restless Leg Sleep Apnea Encounter Details Date Type Department Care Team (Late st Contact Info) Description 11/09/2022 2:30 PM CDT Office Visit [facility] - Pulmonology & Sleep Medicine [facility] [address] [place] [address] Flaquito Hurd MD [address] [place] [address] AMOR (obstructive sleep apnea) (Primary Dx); Restless legs syndrome (RLS); Essential (primary) hypertension; Permanent atrial fibrillation (HCC) Discharge Disposition: Discharged to home or Selfcare Social History Tobacco Use Types Packs/Day Years Used Date Smoking Tobacco: Former Cigarettes 2 35 Smokeless Tobacco: Never Tobacco Cessation:Counseling Given: Not Answered Alcohol Use Standard Drinks/Week Comments Not Currently [...] PM CDT documented as of this encounter Last Filed Vital Signs Vital Sign Reading Time Taken Comments Blood Pressure 110/70 11/09/2022 2:42 PM CDT Pulse 104 11/09/2022 2:42 PM CDT Temperature 36.3 ??C (97.3 ??F) 11/09/2022 2:42 PM CD T Respiratory Rate 16 11/09/2022 2:42 PM CDT Oxygen Saturation 99% 11/09/2022 2:42 PM CDT Inhaled Oxygen Concentration - - Weight 102.2 kg (225 lb 4.8 oz) 11/09/2022 2:42 PM CDT Height 165.1 cm (5' 5 ) 11/09/2022 2:42 PM CDT Body Mass Index 37.49 11/09/2022 2:42 PM CDT documented in this encounter Progress Notes * Flaquito Hurd MD - 11/09/2022 2:30 PM CDT Images from the original note were not included. Progress Note Subjective: HPI: Tressa Myers is a 67 y.o. female with following problems came for a follow-up .Reviewed SD card data she using CPAP more than 4 hours 7% time ?? CPAP is set at 14 cm for ?? Overall AHI 0.9 Less EDS .Patient sleep study done on December 13, 2020 that showed Severe obstructive sleep apnea with apnea-hypopnea index of 48 lowest O2 sat was 67% She required CPAP pressure of 14 cm water She also had periodic leg movements +COVID shot?? Has FFM CPAP Mask is leaking requip caused nausea Problem List: Patient Active Problem List Diagnosis Date Noted ??? Acute pyelonephritis 06/10/2021 ??? Sepsis (HCC) 06/10/2021 ??? Acute pain of right knee 03/17/2021 ??? Pain and swelling of right knee 03/17/2021 ??? AMOR (obstructive sleep apnea) 12/28/2020 ??? Restless legs syndrome (RLS) 12/28/2020 ??? Atrial thrombus 11/30/2020 ??? Permanent atrial fibrillation (HCC) 11/30/2020 ??? Hx of CABG 11/30/2020 ??? Daytime somnolence 11/30/2020 ??? Anxiety 11/30/2020 ??? Type 2 diabetes mellitus without complication, without long-term current use of insulin (HCC) 11/30/2020 ??? Essential (primary) hypertension 11/30/2020 ??? Dyslipidemia 11/30/2020 Past Medical History: has a past medical history of Atrial fibrillation (HCC), Congestive heart failure (CHF) (HCC), Diabetes (HCC), Hypertension, and Thyroid activity decreased. Past Surgical History: has a past surgical history that includes hc inj cardiac cath venous bypass graft,1+ and Tubal Ligation. Family History: family history includes Cancer in her father; Congestive Heart Failure in her mother; Hypertension in her mother. Social History: reports that she has quit smoking. Her smoking use included cigarettes. She has a 70.00 pack-year smoking history. She has never used smokeless tobacco. She reports that she does not currently use alcohol. She reports current drug use. Drug: Marijuana. Allergies: Allergies Description Type Start Date End Date Comment Verified Theatrical Dresser Cefazolin Allergy 30-Nov-2020 Severity: Medium Reactions: Rash, Shortness of Breath Thierry Perez CMA Lisinopril Allergy 29-May-2019 Severity: Low Reactions: Other (see Comments) Thierry Perez CMA Medication List: Current Outpatient Medications Medication Sig Dispense Refill ??? albuterol 108 (90 Base) MCG/ACT Aerosol Solution take 2 Puffs by inhalation every 4 hours as needed for Wheezing or Cough. 8 g 0 ??? albuterol 108 (90 Base) MCG/ACT Aerosol Solution take 2 Puffs by inhalation every 4 hours as needed. (Patient not taking: Reported on 11/09/2022) ??? Ascorbic Acid 500 MG Chewable Tablet Take 500 mg by mouth. ??? aspirin EC 81 MG Tablet Delayed Response Take 81 mg by mouth. ??? Blood Glucose Monitoring Suppl Device glDiagnosis: Diabetes type 2 Blood testing frequency: once a day 1 Each 0 ??? clobetasol (TEMOVATE) 0.05 % Gel APPLY TO NEW LESIONS ON ARMS COVER WITH TAPE THEN WASH OFF IN THE MORNING. REPEAT PROCESS UNTIL LESIONS ARE FLAT THEN USE TWICE A WEEK MA (Patient not taking: Reported on 11/09/2022) ??? dilTIAZem (CARDIZEM CD) 120 MG CAPSULE SR 24 HR TAKE ONE CAPSULE BY MOUTH EVERY DAY (Patient not taking: Reported on 11/09/2022) 90 Capsule 2 ??? furosemide (LASIX) 40 MG Tablet Take 0.5 Tablets by mouth daily. 90 Tablet 1 ??? gabapentin (NEURONTIN) 600 MG Tablet Take 1 Tablet by mouth daily. 90 Tablet 1 ??? Glucose Blood Strip Diagnosis: Diabetes type 2 Blood testing frequency: once a day (Patient nottaking: Reported on 11/09/2022) 100 Strip 3 ??? Januvia 100 MG Tablet TAKE ONE TABLET BY MOUTH ONCE DAILY 90 Tablet 1 ??? Jardiance 25 MG Tablet TAKE ONE TABLET BY MOUTH EVERY DAY 30 Tablet 2 ??? levothyroxine (SYNTHROID) 75 MCG Tablet TAKE ONE TABLET BY MOUTH EVERY DAY 90 Tablet 1 ??? losartan (COZAAR) 25 MG Tablet ??? metFORMIN (GLUCOPHAGE) 1000 MG Tablet TAKE ONE TABLET BY MOUTH TWICE A DAY 180 Tablet 1 ??? metoprolol Succinate (TOPROL-XL) 100 MG TABLET SR 24 HR Take 2 Tablets by mouth daily. (Patienttaking differently: Take 150 mg by mouth daily.) 135 Tablet 1 ??? PARoxetine (PAXIL) 40 MG Tablet TAKE ONE TABLET BY MOUTH EVERY DAY 90 Tablet 1 ??? simvastatin (ZOCOR) 40 MG Tablet ??? traMADol (ULTRAM) 50 MG Tablet TAKE ONE TABLET BY MOUTH EVERY 6 HOURS NEEDED FOR MODERATE ORMORE SEVERE PAIN 28 Tablet 0 ??? VITAMIN D PO Take by mouth daily. ??? warfarin (COUMADIN) 2 MG Tablet Take 1.5 Tablets by mouth. 90 Tablet No current facility-administered medications for this visit. Review of Systems Constitutional: negative Eyes: negative Ears, nose, mouth, throat, and face: negative Respiratory: negative Cardiovascular: negative Gastrointestinal: negative Genitourinary:negative Integument/breast: negative Hematologic/lymphatic: negative Musculoskeletal:negative Neurological: negative Behvioral/Psych: negative Endocrine: negative Allergic/Immunologic: Allergies Allergen Reactions ??? Cefazolin Rash and Shortness of Breath ??? Lisinopril Other (see Comments) Objective: Vitals: Blood pressure 110/70, pulse 104, temperature 97.3 ??F (36.3 ??C), resp. rate 16, height 5'5 (1.651 m), weight 225 lb 4.8 oz (102.2 kg), SpO2 99 %. Gen/Constitutional: No distress HEENT: Normocephalic, atraumatic. PERRLA, No oropharyngeal lesions or masses, external ears and nose shows no lesions or scars. Pupils reacted to light Neck: Supple, no JVD, no lymphadenopathy, no thyromegaly, no carotid bruits, no stridor, trachea midline Chest: non tender to palpation, without deformity Respiratory: No wheezing Heart: Regular rate and rhythm, no murmurs, clicks, gallops, or rubs, radial pulses bilaterally equal Abd: Soft, nontender, bowel sounds present, no hepatosplenomegaly. Ext: No edema Neuro: Alert, Oriented to person, place and time. Normal mood and affect. Skin: Warm and dry, without lesions Musculoskeletal: Normal gait and station, strength equal and normal and full ROM in all 4 extremities Assessment & Plan: ICD-10-CM 1. AMOR (obstructive sleep apnea) G47.33 2. Restless legs syndrome (RLS) G25.81 gabapentin (NEURONTIN) 600 MG Tablet 3. Essential (primary) hypertension I10 4. Permanent atrial fibrillation (HCC) I48.21 Plan: Encouraged to use CPAP Gabapentin Continue antihypertensives Coumadin Discussed sleep hygiene Return in about 6 months (around 05/12/2023). Documentation for this visit on November 09 was completed using a template. I have seen and examined the patient. Everything documented was personally performed at this visit with the necessary additions, deletions and changes made as appropriate. Flaquito Hurd MD 11/09/2022 2:53 PM CDT documented in this encounter Miscellaneous Notes * Addendum Note - Carey Andrade - 11/09/2022 2:30 PM CDTAddended by: CAREY ANDRADE on: 11/09/2022 03:17 PM Modules accepted: Orders documented in this encounter Plan of Treatment Upcoming Encounters Date Type Department Care Team (Late st Contact Info) Description 10/29/2024 9:30 AM STRATEGY ASSOCIATE Office Visit [facility] - [facility] [address] [place] [address] Bhargavi Morel PAC [address] [place] [address] documented as of this encounter Visit Diagnoses Diagnosis AMOR (obstructive sleep apnea)- Primary Obstructive sleep apnea (adult) (pediatric) Restless legs syndrome (RLS) Essential (primary) hypertension Unspecified essential hypertension Permanent atrial fibrillation (HCC) Atrial fibrillation documented in this encounter Additional Health Concerns Assessment Noted Time PHQ-9 Depression Total Score: 0 10/18/19 23 1:27 PM STRATEGY ASSOCIATE documented as of this encounter Care Teams College Counselor Relationship Specialty Start Date End Date Jovita Bermudez MD [address] [place] [address] PCP - General Family Medicine 11/30/20 07/21/23 Flaquito Hurd MD [address] [place] [address] Consulting Physician Pulmonary Disease 11/09/22 documented as of this encounter
--- OUTSIDE RECORDS SUMMARY | 2024-08-30 18:49 | XMS_ITS | Encounter Summary ---
Author Organization [facility] Care Team Providers Care Jacker Feeder Name Role Phone Jovita Bermudez MD Primary Care Provider [phone] Encounter Details Date Type Department Care Team (Latest Contact Info) Description 10/18/2022 Travel Social History Tobacco Use Types Packs/Day [...] Coronavirus/COVID-19? No / Unsure 10/18/2022 1:12 PM BEATING MACHINE OPERATOR documented as of this encounter Functional Status * Question Answer Date of Assessment Author Little interest or pleasure in doing things Not at all 10/18/2022 1:27 PM Berenice Mcginnis cia, RMA Feeling down, depressed, or hopeless Not at all 10/18/2022 1:27 PM Berenice Mcginnis cia, RMA * Over the past 2 weeks, how often have you been bothered by any of the following problems? Question Answer Date of Assessment Author Patient Health Questionnaire-2 Score 0 10/18/2022 1:27 PM BEATING MACHINE OPERATOR Maeve Bray RMA documented as of this encounter Plan of Treatment Upcoming Encounters Date Type Department Care Team (Late st Contact Info) Description 10/29/2024 9:30 AM BEATING MACHINE OPERATOR Office Visit [facility] - Family Medicine [facility] [address] [place] [address] Bhargavi Morel, ARAM [address] [place] [address] documented as of this encounter Visit Diagnoses Not on filedocumented in this encounter Additional Health Concerns Assessment Noted Time PHQ-9 Depression Total Score: 0 10/18/19 23 1:27 PM BEATING MACHINE OPERATOR documented as of this encounter Care Teams Jacker Feeder Relationship Specialty Start Date End Date Jovita Bermudez MD [address] [place] [address] PCP - General Family Medicine 11/30/20 07/21/23 documented as of this encounter
--- OUTSIDE RECORDS SUMMARY | 2024-08-30 18:49 | XMS_ITS | Encounter Summary ---
Author Organization [facility] Address [address] [place] [address] Phone Care Team Providers Care Oracle Ascp Consultant Name Role Phone Jovita Bermudez MD Primary Care Provider [phone] Flaquito Hurd MD Unavailable Reason for Visit * Reason Onset Date Comments Results 06/01/2023 Resulted by Bhargavi Morel Encounter Details Date Type Department Care Team (Late st Contact Info) Description 06/01/2023 Telephone [facility] [address] [place] [address] Jovita Bermudez MD [address] [place] [address] Results (Resulted by Bhargavi Morel/) Social History Tobacco Use Types Packs/Day Years [...] Telephone Encounter - Xochilt Easley RN - 06/06/2023 11:52 AM CDT Spoke to pt, gave message. Pt requests an appointment at the in-office lab, it is scheduled. * Telephone Encounter - Bhargavi Morel PAC - 06/05/2023 4:58 PM CDT I sent in macrod, if no improvements after completion would recheck urine, order is placed can [facility] 48 hrs after completion of antibiotic if persistent symptoms * Telephone Encounter - Xochilt Easley RN - 06/05/2023 11:53 AM CDT Spoke to pt, she reports severe itching and back pain as her only UTI symptoms. She would like antibiotic Pt would like to discuss options for blood sugar control at next office visit. She has heard about side effects from ozempic and those types of meds and she does not like shots. Pt has appt on 07/11/23. * Telephone Encounter - Xochilt Easley RN - 06/01/2023 3:16 PM CDT Left message for pt to call office. Please ask provider's questions and route response back to Willi. Thank you * Telephone Encounter - Xochilt Easley RN - 06/01/2023 3:14 PM CDT ----- Message from ARAM James sent at 05/31/2023 8:14 PM CDT ----- Urine did not have growth of any one bacteria, but had lots of bacteria, is she having uti symptoms, would send in antibiotic and recheck urine Also sugars not well controlled would suggest adding additional medication, consider injectable once weekly like mounjaro or ozempic documented in this encounter Plan of Treatment Upcoming Encounters Date Type Department Care Team (Late st Contact Info) Description 10/29/2024 9:30 AM CHILD SUPPORT INVESTIGATOR [facility] [address] [place] [address] Bhargavi Morel, PAC [address] [place] [address] documented as of this encounter Results * (ABNORMAL) URINALYSIS REFLEX IF INDICATED BY ABNORMAL RESULTS (06/13/2023 10:20 AM CDT) SPECIFIC GRAVITY 1.010 1.003 - 1.030 06/13/2023 1:12 PM CDT [facility] URINE PH 6.0 5.0 - 9.0 06/13/2023 1:12 PM CDT [facility] WBC ESTERASE 500 /uL(A) Negative 06/13/2023 1:12 PM CDT [facility] NITRITE Negative Negative 06/13/2023 1:12 PM CDT [facility] PROTEIN, RANDOM URINE 15 mg/dL(A) Negative 06/13/2023 1:12 PM CDT [facility] URINE GLUCOSE, QUAL 1000 mg/dL(A) Negative 06/13/2023 1:12 PM CDT [facility] URINE KETONES Negative Negative 06/13/2023 1:12 PM CDT [facility] UROBILINOGEN Normal Normal mg/dL 06/13/2023 1:12 PM CDT [facility] URINE BLOOD 10 /uL(A) Negative minerva/ul 06/13/2023 1:[address] [facility] URINALYSIS COLOR Yellow 06/13/20 1:[address] [facility] URINALYSIS CLARITY Slightly Cloudy 06/13/2023 1:[address] WBC (Urine) Packed(A) Negative, 0-5 /hpf 06/13/2023 1:12 PM CDT [facility] URINE RBC'S 3-5(A) Negative, 0-2 /hpf 06/13/2023 1:[address] [facility] EPITHELIAL CELLS Negative /lpf 06/13/20 1:12 PM CDT [facility] BACTERIA, URINE Packed(A) Negative /hpf 06/13/2023 1:12 PM CDT [facility] Urine URINE SPECIMEN COLLECTION, CLEAN CATCH / Unknown Non-Phlebotomy Collection / Unknown 06/13/2023 10:20 AM CDT 06/13/2023 10:20 AM CDT us Bhargavi Morel PAC URINE ORDERABLES Final R esult [facility] [address] [place] [address] documented in this encounter Visit Diagnoses Diagnosis UTI symptoms- Primary documented in this encounter Additional Health Concerns Assessment Noted Time PHQ-9 Depression Total Score: 0 10/18/19 1:27 PM CHILD SUPPORT INVESTIGATOR documented as of this encounter Care Teams Oracle Ascp Consultant Relationship Specialty Start Date End Date Jovita Bermudez MD [address] [place] [address] PCP - General Family Medicine 11/30/20 07/21/23 Flaquito Hurd MD [address] [place] [address] Consulting Physician Pulmonary Disease 11/09/22 documented as of this encounter
--- OUTSIDE RECORDS SUMMARY | 2024-08-30 18:49 | XMS_ITS | Encounter Summary ---
Author Organization [facility] Address [address] [place] [address] Phone Care Team Providers Care Lunchroom Worker Name Role Phone Jovita Bermudez MD Primary Care Provider [phone] Reason for Visit * Reason Onset Date Comments Results 10/20/2022 Encounter Details Date Type Department Care Team ([facility] Contact Info) Description 10/20/2022 Telephone [facility] [address] [place] [address] Bhargavi Morel, ARAM [address] [place] [address] Results Social History Tobacco Use Types Packs/Day [...] Coronavirus/COVID-19? No / Unsure 10/18/2022 1:12 PM CURB SUPERVISOR documented as of this encounter Miscellaneous Notes * Telephone Encounter - Xochilt Easley RN - 10/23/2022 10:56 AM CURB SUPERVISOR Spoke to pt, she states she does take daily Vit D but had been out of it for a few days, she has resumed taking it. Spoke to her concerning insulin and she is not willing to start taking insulin. Shewill try to control diet better. SUPERVISOR * Telephone Encounter - Xochilt Easley RN - 10/20/2022 11:54 AM CURB SUPERVISOR LVM, please give provider's message and route pt's answer back to provider. Thank you SUPERVISOR * Telephone Encounter - Xochilt Easley RN - 10/20/2022 11:52 AM CURB SUPERVISOR ----- Message from ARAM James sent at 10/19/2022 7:43 PM CURB SUPERVISOR ----- Thyroid in range Vitamin d little low can take daily supplement 2000 units Blood sugars not at goal, would recommend starting a low dose of long acting insulin at bedtime once daily to improve. If agreeable let me know and I would send in lantus SUPERVISOR documented in this encounter Plan of Treatment Upcoming Encounters Date Type Department Care Team (Late st Contact Info) Description 10/29/2024 9:30 AM CURB SUPERVISOR Office Visit [facility] [address] [place] [address] Bhargavi Morel PAC [address] [place] [address] documented as of this encounter Visit Diagnoses Not on filedocumented in this encounter Additional Health Concerns Assessment Noted Time PHQ-9 Depression Total Score: 0 10/18/19 1:27 PM CURB SUPERVISOR documented as of this encounter Care Teams Lunchroom Worker Relationship Specialty Start Date End Date Jovita Bermudez MD [address] [place] [address] PCP - General Family Medicine 11/30/20 07/21/23 documented as of this encounter
--- OUTSIDE RECORDS SUMMARY | 2024-08-30 18:49 | XMS_ITS | Encounter Summary ---
Author Organization [facility] Address [address] [place] [address] Phone Care Team Providers Care Purchasing Intern Name Role Phone Jovita Bermudez MD Primary Care Provider [phone] Bhargavi Morel Primary Care Provider + Flaquito Hurd MD Unavailable Wes Petty MD Unavailable Reason for Visit * Reason Comments Medication Refill Encounter Details Date Type Department Care Team (Late st Contact Info) Description 05/12/2023 Refill [facility] - [facility] [address] [place] [address] Bhargavi Morel PAC [address] [place] [address] Medication Refill Social History Tobacco [...] Telephone Encounter - Reanna Rios RN - 05/14/2023 9:01 AM CDT Images from the original note were not included. Blood Glucose Monitoring Suppl Dispensed Days Supply Quantity Provider Pharmacy Accu-Chek Guide Me Glucose Meter 04/10/2023 30 1 Each Bhargavi Morel PAC [facility] Pharmac... documented in this encounter Plan of Treatment Upcoming Encounters Date Type Department Care Team (Late st Contact Info) Description 10/29/2024 9:30 AM NICK SETTER Office Visit [facility] [address] [place] [address] Bhargavi Morel PAC [address] [place] [address] documented as of this encounter Visit Diagnoses Diagnosis Type 2 diabetes mellitus without complication, without long-term current use of insulin (HCC) documented in this encounter Additional Health Concerns Assessment Noted Time PHQ-9 Depression Total Score: 0 10/18/19 23 1:27 PM NICK SETTER documented as of this encounter Care Teams Purchasing Intern Relationship Specialty Start Date End Date Jovita Bermudez MD [address] [place] [address] PCP - General Family Medicine 11/30/20 07/21/23 Bhargavi Morel PAC [address] [place] [address] PCP - General Physician Spooler 07/22/23 Flaquito Hurd MD [address] [place] [address] Consulting Physician Pulmonary Disease 11/09/22 Wes Petty MD #[address] [address] [place] [address] Consulting Physician Urology 01/18/24 documented as of this encounter
--- OUTSIDE RECORDS SUMMARY | 2024-08-30 18:49 | XMS_ITS | Encounter Summary ---
Author Organization [facility] Address [address] [place] [address] Phone Care Team Providers Care Motor Transport Inspector Name Role Phone Jovita Bermudez MD Primary Care Provider [phone] Flaquito Hurd MD Unavailable Reason for Visit * Reason Comments Follow-up 3 month Encounter Details Date Type Department Care Team (Late st Contact Info) Description 04/10/2023 4:15 PM CDT Office Visit [facility] - Family Medicine [facility] [address] [place] [address] Bhargavi Morel PAC [address] [place] [address] Atrial fibrillation, unspecified type (HCC) (Primary Dx); Hypothyroidism, unspecified type; Type 2 diabetes mellitus without complication, without long-term current use of insulin (HCC); Urinary frequency; Vitamin D deficiency Discharge Disposition: Discharged to [...] Sign Reading Time Taken Comments Blood Pressure 112/70 04/10/2023 4:03 PM CDT Pulse 110 04/10/2023 4:03 PM CDT Temperature 35.8 ??C (96.5 ??F) 04/10/2023 4:03 PM CD T Respiratory Rate - - Oxygen Saturation 90% 04/10/2023 4:03 PM CDT Inhaled Oxygen Concentration - - Weight 104.8 kg (231 lb) 04/10/2023 4:03 PM CDT Height 165.1 cm (5' 5 ) 04/10/2023 4:03 PM CDT Body Mass Index 38.44 04/10/2023 4:03 PM CDT documented in this encounter Progress Notes * Brittney Green CMA - 04/10/2023 4:15 PM CDT Tressa Myers is a 68 y.o. female with current BMI: Body mass index is 38.44 kg/m??. Interventions discussed including: encourage daily physical activity and well- balanced diet. * Brittney Green CMA - 04/10/2023 4:15 PM CDT Tressa Myers, 68 y.o., female is here for Follow-up (3 month ) Medication Refills: Patient reports/denies need for medication refills. Orders Pended: no Requested Prescriptions No prescriptions requested or ordered in this encounter Home Medications Medication Sig Start Date End Date Taking? Authorizing Provider albuterol 108 (90 Base) MCG/ACT Aerosol Solution take 2 Puffs by inhalation every 4 hours as needed. Yes Provider, Historical, MD albuterol 108 (90 Base) MCG/ACT Aerosol [...] Reported on 11/09/2022 11/24/20 Homero Pugh MD dilTIAZem (CARDIZEM CD) 120 MG CAPSULE SR 24 HR TAKE ONE CAPSULE BY MOUTH EVERY DAY Patient not taking: Reported on 11/09/2022 06/20/22 Jovita Bermudez MD furosemide (LASIX) 40 MG Tablet Take 0.5 Tablets by mouth daily. 05/04/21 Yes Jovita Bermudez MD gabapentin (NEURONTIN) 600 MG Tablet Take 1 Tablet by mouth daily. 11/09/22 Yes Flaquito Hurd MD Glucose Blood Strip Diagnosis: Diabetes type 2 Blood testing frequency: once a day Patient not taking: Reported on 11/09/2022 02/23/21 Jovita Bermudez MD Januvia 100 MG Tablet TAKE ONE TABLET BY MOUTH EVERY DAY 02/13/23 Yes Jovita Bermudez MD Jardiance 25 MG Tablet TAKE ONE TABLET BY MOUTH EVERY DAY 04/02/23 Yes Jovita Bermudez MD levothyroxine (SYNTHROID) 75 MCG Tablet TAKE ONE TABLET BY MOUTH EVERY DAY 02/13/23 Yes Jovita Bermudez MD losartan (COZAAR) 25 MG Tablet 06/13/21 Yes Homero Pugh MD metFORMIN (GLUCOPHAGE) 1000 MG Tablet TAKE 1 TABLET BY MOUTH TWO TIMES A DAY 12/04/22 Yes Jovita Bermudez MD metoprolol Succinate (TOPROL-XL) 100 MG TABLET SR 24 HR Take 2 Tablets by mouth daily. Patient taking differently: Take 150 mg by mouth daily. 05/04/21 Yes Jovita Bermudez MD PARoxetine (PAXIL) 40 MG Tablet TAKE ONE TABLET BY MOUTH EVERY DAY 03/22/23 Yes Jovita Bermudez MD simvastatin (ZOCOR) 40 MG Tablet 09/23/22 Yes ProviderHomero MD traMADol (ULTRAM) 50 MG Tablet TAKE ONE TABLET BY MOUTH EVERY 6 HOURS NEEDED FOR MODERATE OR MORE SEVERE PAIN 04/02/23 Yes Jovita Bermudez MD VITAMIN D PO [...] Immunization (1 of 2) Never done ??? SARS-COV-2 Immunization (5 - Additional dose for Ramya series) 01/15/2023 Orders Pended: no The following BPA's have been addressed with the patient today: BMI * Brittney Green CMA - 04/10/2023 4:15 PM CDT Tressa screened for Social Determinants of Health and screened positive for Social Integration. After discussion with patient, patient declined resources. * Bhargavi Morel, PAC - 04/10/2023 4:15 PM CDT Subjective: Subjective Patient in the office to follow up on chronic health conditions She has atrial fibrillation, denies symptoms of irregular heart beat She feels in normal state of health Review of Systems Constitutional: Negative for chills, fever and unexpected weight change. Respiratory: Negative for cough, chest tightness and wheezing. Cardiovascular: Negative for chest pain and palpitations. No PND Gastrointestinal: Negative for abdominal pain. Genitourinary: Positive for frequency. Negative for decreased urine volume and dysuria. Skin: Negative for rash. Neurological: Negative for dizziness, light-headedness and headaches. Objective: Objective Physical Exam Vitals reviewed. Constitutional: Appearance: Normal appearance. She is not ill-appearing. HENT: Head: Normocephalic and atraumatic. Eyes: General: Right eye: No discharge. Left eye: No discharge. Extraocular Movements: Extraocular movements intact. Cardiovascular: Rate and Rhythm: Tachycardia present. Rhythm irregular. Heart sounds: No murmur heard. Pulmonary: Effort: Pulmonary effort is normal. No respiratory distress. Breath sounds: Normal breath sounds. No wheezing. Skin: General: Skin is warm. Neurological: Mental Status: She is alert. Psychiatric: Mood and Affect: Mood normal. Assessment and Plan See Diagnoses, Orders, Follow-up, and Instructions .Diagnoses and all orders for this visit: Atrial fibrillation, unspecified type (HCC) - MAGNESIUM (MG); Future Hypothyroidism, unspecified type - THYROID STIMULATING HORMONE (TSH); Future Type 2 diabetes mellitus without complication, without long-term current use of insulin (HCC) - Blood Glucose Monitoring Suppl Device; glDiagnosis: Diabetes type 2 Blood testing frequency: oncea day - CMP (COMPREHENSIVE METABOLIC PANEL); Future - THYROID STIMULATING HORMONE (TSH); Future - COMPLETE BLOOD COUNT (CBC) WITH DIFF; Future - HEMOGLOBIN A1C W/ ESTIMATED GLUCOSE; Future - LIPID PANEL; Future Urinary frequency - URINALYSIS REFLEX IF INDICATED BY ABNORMAL RESULTS; Future Vitamin D deficiency - VITAMIN D, 25 HYDROXY TOTAL; Future Other orders - albuterol 108 (90 Base) MCG/ACT Aerosol Solution; 2 puffs inhaled every 4-6 hours as needed for shortness of breath or wheezing Reviewed with patient heart rate elevated in office today recommend monitor at home, denies chest pain or shortness of breath, denies feeling dizzy/lightheaded Recommend fasting labs in near future as ordered, will follow up when resulted Diabetes has been fair control, continue current medication If elevated hga1c above 7 would recommend medication adjustment Discussed if any chest pain or shortness of breath should go to ER Urine test rule out any infection documented in this encounter Plan of Treatment Upcoming Encounters Date Type Department Care Team (Late st Contact Info) Description 10/29/2024 9:30 AM CHIEF SCIENCE OFFICER [facility] [address] [place] [address] Bhargavi Morel PAC [address] [place] [address] documented as of this encounter Results * VITAMIN D, 25 HYDROXY TOTAL (05/23/2023 8:08 AM CDT) VITAMIN D, 25 HYDROX 39 ng/mL 05/23/2023 12:47 PM CDT [facility] Blood Venipuncture / Unknown 05/23/2023 8:08 AM CDT 05/23/2023 8:08 AM CDT Narrative [facility] - 05/23/2023 12:47 PM CDT Published reference ranges for Vitamin D vary depending on time and place and method of testing, and on patient's age, sex, ethnicity and levels of other measured analytes such as parathormone, calcium and phosphorus. ??The result should be evaluated in conjunction with clinical findings and suspicions. [place] of [employer] and Endocrine Clinical Practice Guidelines: Status Vitamin D levels (ng/mL) Deficient <=20 At risk of inadequacy 21-29 Sufficient 30-100 Centers of Disease Control and Prevention Guidelines: Status Vitamin D levels (ng/mL) Deficient <13 At risk of inadequacy 13-19 Sufficient 20-50 Possibly harmful >50 References: [place] [employer], 2010 Dietary reference intakes for calcium and vitamin D. [place]: ??The National Academies Press. Daniela M, Gina N, Genoveva HURD, et al., Evaluation, treatment, and prevention of Vitamin D deficiency: an Endocrinology Clinical Practice Guideline. JCEM 2011 96: 7 7682-9826. Althea Velázquez, Kenroy C, Etta Roman, et al., Vitamin D Status: ??[place], 2000- 1005, [facility] data brief, no. 59, MD Xuan: ??[facility] for Health Statistics. 2011. us Bhargavi Morel PAC CHEMISTRY ORDERABLES Fin al Result [facility] [address] [place] [address] * (ABNORMAL) LIPID PANEL (05/23/2023 8:08 AM CDT) CHOLESTEROL 117 <200 mg/dL 05/23/2023 12:30 PM CDT [facility] TRIGLYCERIDES 103 <150 mg/dL 05/23/2023 12:30 PM CDT [facility] HDL CHOLESTEROL 36(L) >40 mg/dL 12:30 PM CDT [facility] LDL 60 <130 mg/dL 05/23/2023 12:30 PM CDT [facility] VLDL 21 10 - 50 mg/dL 05/23/2023 12:30 PM CDT [facility] CHOL/HDL RATIO 3.3 0.0 - 4.4 05/23/2023 12:30 PM CDT [facility] NON-HDL CHOLESTEROL 81 <130 mg/dL 05/23/2023 12:30 PM CDT [facility] IS THE PATIENT REQUIRED TO BE FASTING? No 05/23/2023 12:30 PM CDT [facility] Blood Venipuncture / Unknown 05/23/2023 8:08 AM CDT 05/23/2023 8:08 AM CDT Bhargavi Morel PAC CHEMISTRY ORDERABLES Fin al Result [facility] [address] [place] [address] * (ABNORMAL) HEMOGLOBIN A1C W/ ESTIMATED GLUCOSE (05/23/2023 8:08 AM CDT) HGB-A1C 8.5(H) 4.0 - 6.0 % 05/23/2023 12:21 PM CDT [facility] Est Average Glucose 197.3 mg/dL 05/23/2023 12:21 PM CDT [facility] Blood Venipuncture / Unknown 05/23/2023 8:08 AM CDT 05/23/2023 8:08 AM CDT Narrative [facility] - 05/23/2023 12:21 PM CDT HEMOGLOBIN A1C: DIABETIC PATIENTS: WELL-CONTROLLED: ?? 6.2 - 7.0 INTERMEDIATE WELL-CONTROLLED: ??7.0 - 9.0 POORLY-CONTROLLED: ??>9.0 us Bhargavi Morel PAC CHEMISTRY ORDERABLES Fin al Result Performing Organization Address City/[facility]/ZIP Co de Phone Number [facility] [address] [place] [address] * MAGNESIUM (MG) (05/23/2023 8:08 AM CDT) MAGNESIUM 2.1 1.6 - 2.6 mg/dL 05/23/2023 12:30 PM CDT [facility] Blood Venipuncture / Unknown 05/23/2023 8:08 AM CDT 05/23/2023 8:08 AM CDT Bhargavi Morel PAC CHEMISTRY ORDERABLES Fin al Result [facility] [address] [place] [address] * THYROID STIMULATING HORMONE (TSH) (05/23/2023 8:08 AM CDT) TSH 2.171 0.300 - 5.000 mIU/L 05/23/2023 12:53 PM CDT [facility] Blood Venipuncture / Unknown 05/23/2023 8:08 AM CDT 05/23/2023 8:08 AM CDT us Bhargavi Morel PAC CHEMISTRY ORDERABLES Fin al Result [facility] [address] [place] [address] * (ABNORMAL) CMP (COMPREHENSIVE METABOLIC PANEL) (05/23/2023 8:08 AM CDT) SODIUM 136 136 - 145 mmol/L 05/23/2023 12:30 PM CDT [facility] POTASSIUM 5.0 3.5 - 5.1 mmol/L 05/23/2023 12:30 PM CDT [facility] CHLORIDE 100 98 - 107 mmol/L 05/23/2023 12:30 PM CDT [facility] CO2, VENOUS 27 22 - 30 mmol/L 05/23/2023 12:30 PM CDT [facility] ANION GAP 14.0 <18.0 mmol/L 05/23/2023 12:30 PM CDT [facility] GLUCOSE 189(H) 70 - 99 mg/dL 05/23/2023 12:30 PM CDT [facility] BUN 20 10 - 20 mg/dL 05/23/2023 12:30 PM CDT [facility] CREATININE, BLOOD 0.81 0.60 - 1.00 mg/dL 05/23/2023 12:30 PM CDT [facility] BUN/CREATININE RATIO 25(H) 12 - 20 ratio 05/23/2023 12:30 PM CDT [facility] TOTAL PROTEIN 8.3(H) 6.3 - 8.2 g/dL 05/23/2023 12:30 PM CDT [facility] ALBUMIN 3.6 3.5 - 5.0 g/dL 05/23/2023 12:30 PM CDT [facility] A/G RATIO 0.8(L) 1.0 - 2.2 05/23/2023 12:30 PM CDT [facility] CALCIUM 9.5 8.7 - 10.5 mg/dL 05/23/2023 12:30 PM CDT [facility] T BILI 0.7 0.2 - 1.2 mg/dL 05/23/2023 12:30 PM CDT [facility] SGOT (AST) 27 5 - 34 U/L 05/23/2023 12:30 PM T [facility] SGPT (ALT) 24 0 - 55 U/L 05/23/2023 12:30 PM CDT [facility] ALKALINE PHOSPHATASE 92 40 - 150 U/L 05/23/2023 12:30 PM T [facility] IS THE PATIENT REQUIRED TO BE FASTING? No 05/23/2023 12:30 PM CDT [facility] GFR, ESTIMATED >60 >=60 05/23/2023 12:30 PM T [facility] Comment: Creatinine Clearance is the preferred criteria for selecting drug dose adjustments in renally impaired patients. ??The GFR is provided as additional pertinent clinical information. GFR is reported in mL/min/1.73 sq m. Calculation based on the Chronic Kidney Disease Epidemiology Collaboration (CKD- EPI) equation refit without adjustment for race. GFR, EST. >60 >=60 023 12:30 PM CDT [facility] GFR, EST. NONAFRICAN >60 >=60 05/23/2023 12:30 PM T [facility] Blood Venipuncture / Unknown 05/23/2023 8:08 AM CDT 05/23/2023 8:08 AM CDT us Bhargavi Goldberg Maria Teresa PAC CHEMISTRY ORDERABLES Fin al Result [facility] [address] [place] [address] * (ABNORMAL) URINALYSIS REFLEX IF INDICATED BY ABNORMAL RESULTS (05/23/2023 8:08 AM CDT) SPECIFIC GRAVITY 1.010 1.003 - 1.030 05/23/2023 12:32 PM CDT [facility] URINE PH 6.0 5.0 - 9.0 05/23/2023 12:32 PM CDT [facility] WBC ESTERASE 100 /uL(A) Negative 05/23/2023 12:32 PM CDT [facility] NITRITE Positive(A) Negative 05/23/2023 12:32 PM CDT [facility] PROTEIN, RANDOM URINE 30 mg/dL(A) Negative 05/23/2023 12:32 PM CDT [facility] URINE GLUCOSE, QUAL 1000 mg/dL(A) Negative 05/23/2023 12:32 PM CDT [facility] URINE KETONES Negative Negative 05/23/2023 12:32 PM CDT [facility] UROBILINOGEN Normal Normal mg/dL 05/23/2023 12:32 PM CDT [facility] URINE BLOOD 10 /uL(A) Negative minerva/ul 05/23/2023 12:32 PM CDT [facility] URINALYSIS COLOR Light Yellow 05/23/2023 12:32 PM CDT [facility] URINALYSIS CLARITY Very Cloudy 05/23/2023 12:32 PM CDT [facility] WBC (Urine) 51-150(A) Negative, 0-5 /hpf 05/23/2023 12:32 PM CDT [facility] URINE RBC'S 6-10(A) Negative, 0-2 /hpf 05/23/2023 12:32 PM CDT [facility] EPITHELIAL CELLS Occasional /lpf 05/23/2023 12:32 PM CDT [facility] BACTERIA, URINE Packed(A) Negative /hpf 05/23/2023 12:32 PM CDT [facility] Urine URINE SPECIMEN COLLECTION, CLEAN CATCH / Unknown Non-Phlebotomy Collection / Unknown 05/23/2023 8:08 AM CDT 05/23/2023 8:08 AM CDT us Bhargavi Morel PAC URINE ORDERABLES Final R esult [facility] [address] [place] [address] documented in this encounter Visit Diagnoses Diagnosis Atrial fibrillation, unspecified type (HCC)- Primary Hypothyroidism, unspecified type Type 2 diabetes mellitus without complication, without long-term current use of insulin (HCC) Urinary frequency Vitamin D deficiency Unspecified vitamin D deficiency documented in this encounter Additional Health Concerns Assessment Noted Time PHQ-9 Depression Total Score: 0 10/18/19 23 1:27 PM CHIEF SCIENCE OFFICER documented as of this encounter Care Teams Motor Transport Inspector Relationship Specialty Start Date End Date Jovita Bermudez MD [address] [place] [address] PCP - General Family Medicine 11/30/20 07/21/23 Flaquito Hurd MD [address] [place] [address] Consulting Physician Pulmonary Disease 11/09/22 documented as of this encounter
--- OUTSIDE RECORDS SUMMARY | 2024-08-30 18:49 | XMS_ITS | Encounter Summary ---
Author Organization [facility] [employer] Care Team Providers Care Emergency Medicine Specialist Name Role Phone Jovita Bermudez MD Primary Care Provider [phone] Flaquito Hurd MD Unavailable Encounter Details Date Type Department Care Team (Latest Contact Info) Description 05/23/2023 Travel Social History Tobacco Use Types Packs/Day [...] Contact Info) Description 10/29/2024 9:30 AM GAS METER REPAIR SUPERVISOR Office Visit [facility] Medical [facility] [address] [place] [id number] Bhargavi Morel, PAC [address] [place] [address] documented as of this encounter Visit Diagnoses Not on filedocumented in this encounter Additional Health Concerns Assessment Noted Time PHQ-9 Depression Total Score: 0 10/18/19 23 1:27 PM GAS METER REPAIR SUPERVISOR documented as of this encounter Care Teams Emergency Medicine Specialist Relationship Specialty Start Date End Date Jovita Bermudez MD [address] [place] [address] PCP - General Family Medicine 11/30/20 07/21/23 Flaquito Hurd MD [address] [place] [address] Consulting Physician Pulmonary Disease 11/09/22 documented as of this encounter
--- OUTSIDE RECORDS SUMMARY | 2024-08-30 18:50 | XMS_ITS | Encounter Summary ---
Author Organization [facility] Address [address] [place] [address] Phone Care Team Providers Care Sheeter Operator Name Role Phone Jovita Bermudez MD Primary Care Provider [phone] Reason for Visit * Reason Onset Date Comments Patient Outreach 04/19/2022 Colorectal canc er screening Encounter Details Date Type Department Care Team (Late st Contact Info) Description 04/19/2022 Patient Outreach [facility] [address] [place] [address] Jovita Bermudez MD [address] [place] [address] Patient Outreach (Colorectal cancer screening) Social History Tobacco Use Types Packs/Day Years Used Date Smoking Tobacco: Former Cigarettes 2 35 Smokeless Tobacco: Never Alcohol Use Standard Drinks/Week Comments Not Currently 0 (1 standard drink = 0.6 oz pur e alcohol) Sexually Active Control Partners Comments Not Currently Comments No Sex and Gender Information Value Date Recorded Sex Assigned at Female 04/09/2023 4:28 PM CDT Legal Sex Female 7:50 PM CDT Gender Identity Female 04/09/2023 4:28 PM CDT Sexual Orientation Not on file documented as of this encounter Miscellaneous Notes * Telephone Encounter - Lo Bray RMA - 04/19/2022 9:10 AM CDT Sent patient letter in regard to ccs documented in this encounter Plan of Treatment Upcoming Encounters Date Type Department Care Team (Late st Contact Info) Description 10/29/2024 9:30 AM SPOT MAN Office Visit [facility] - Family [facility] [address] [place] [address] Bhargavi Morel, [facility] [address] [place] [address] documented as of this encounter Visit Diagnoses Not on filedocumented in this encounter Care Teams Sheeter Operator Relationship Specialty Start Date End Date Jovita Bermudez MD [address] [place] [address] PCP - General Family Medicine 11/30/20 07/21/23 documented as of this encounter
--- OUTSIDE RECORDS SUMMARY | 2024-08-30 18:50 | XMS_ITS | Encounter Summary ---
Author Organization [facility] Address [address] [place] [address] Phone Care Team Providers Care Senior Controls Technician Name Role Phone Jovita Bermudez MD Primary Care Provider [phone] Encounter Details Date Type Department Care Team (Late Contact Info) Description 04/19/2022 Patient Outreach [facility] [address] [place] [address] Jovita Bermudez MD [address] [place] [address] Social History Tobacco Use Types Packs/Day Years [...] Encounters Date Type Department Care Team (Late Contact Info) Description 10/29/2024 9:30 AM BRICK OFFBEARER Office Visit [facility] [address] [place] [address] Bhargavi Morel PAC [address] [place] [address] documented as of this encounter Visit Diagnoses Not on filedocumented in this encounter Care Teams Senior Controls Technician Relationship Specialty Start Date End Date Jovita Bermudez MD [address] [place] [address] PCP - General Family Medicine 11/30/20 07/21/23 documented as of this encounter
--- OUTSIDE RECORDS SUMMARY | 2024-08-30 18:50 | XMS_ITS | Encounter Summary ---
Author Organization [facility] Address [address] [place] [address] Phone Care Team Providers Care Procedure Rn Name Role Phone Jovita Bermudez MD Primary Care Provider [phone] Reason for Visit * Reason Onset Date Comments Yeast Infection 04/19/2022 Encounter Details Date Type Department Care Team (Late st Contact Info) Description 04/19/2022 Nurse Triage [facility] [address] [place] [address] Jovita Bermudez MD [address] [place] [address] Yeast Infection Social History Tobacco Use Types Packs/Day [...] encounter Miscellaneous Notes * Telephone Encounter - Radha Yeboah RN - 04/20/2022 7:50 AM CDT Pended (would not let me sign due to override required) * Telephone Encounter - Jovita Bermudez MD - 04/19/2022 3:10 PM CDT Fluconazole 150 mg X1 * Telephone Encounter - Rolanda Way RN - 04/19/2022 11:49 AM CDT SITUATION: Yeast infection BACKGROUND: Patient calling asking for medication for a yeast infection be called in. Symptoms started a couple of weeks ago. Patient states she has had yeast infections in the past. ASSESSMENT: Grayish discharge Odor - not extremely bad Itching - moderate Guidelines to be seen in office if treatment does not work. Patient has not tried over the counter antifungal, wanting provider to prescribe. Please advise Allergies, medications and pharmacy verified Assistive services verified RECOMMENDATION: See care advice and disposition for Guideline First positive answer recorded, all responses to prior questions were negative. If symptoms increase, change or if new symptoms develop, call your HCP or call back. Recommendations were based on caller information and is not a diagnosis. Verified and reviewed all triage information with caller. Reason for Disposition ??? Symptoms of a yeast infection' (i.e., itchy, white discharge, not bad smelling) and not improved > 3 days following Care Advice Protocols used: VAGINAL [id number] documented in this encounter Plan of Treatment Upcoming Encounters Date Type Department Care Team (Late st Contact Info) Description 10/29/2024 9:30 AM BOTTLE GAUGER [facility] [address] [place] [address] Bhargavi Morel PAC [address] [place] [address] documented as of this encounter Visit Diagnoses Diagnosis Yeast infection- Primary Other and unspecified mycoses documented in this encounter Care Teams Procedure Rn Relationship Specialty Start Date End Date Jovita Bermudez MD [address] [place] [address] PCP - General Family Medicine 11/30/20 07/21/23 documented as of this encounter
--- OUTSIDE RECORDS SUMMARY | 2024-08-30 18:50 | XMS_ITS | Encounter Summary ---
Author Organization [facility] Address [address] [place] [address] Phone Care Team Providers Care Community Health Coordinator Name Role Phone Jovita Bermudez MD Primary Care Provider [phone] Reason for Referral * Radiology Services (Routine) - Closed Specialty Diagnoses / Procedures Referred By Shayan dhillon Referred To Contact Radiology Diagnoses Pneumonia of right lower lobe due to infectious organism Procedures CT CHEST W/O CONTRAST Bhargavi Morel, PAC [address] [place] [address] Phone: tel: fax: Referral ID Status Reason Start Date Expiration Date Visits Re quested Visits Authorized [id number] Closed 06/14/2021 1 1 ATIONS SPECIALIST Reason for Visit * Radiology Services (Routine) - Closed Specialty Diagnoses / Procedures Referred By Shayan dhillon Referred To Contact Radiology Diagnoses Pneumonia of right lower lobe due to infectious organism Procedures CT CHEST W/O CONTRAST Bhargavi Morel, PAC [address] [place] [address] Phone: tel: fax: Referral ID Status Reason Start Date Expiration Date Visits Re quested Visits Authorized [id number] Closed 06/14/2021 1 1 Encounter Details Date Type Department Care Team (Latest Contact Info) Description 08/10/2021 10:18 AM OPERATIONS SPECIALIST - 08/10/2021 11:59 PM OPERATIONS SPECIALIST Hospital Encounter [facility] [address] [place] [id number] Bhargavi Morel, PAC [address] [place] [address] Discharge Disposition: Discharged to home or Selfcare [...] Exposure Response Date Recorded In the last month, have you been in contact with someone who was confirmed or suspected to have Coronavirus / COVID-19? No / Unsure 08/10/2021 9:44 AM OPERATIONS SPECIALIST documented as of this encounter Medications at Time of Discharge Ascorbic Acid 500 MG Chewable Tablet Take 500 mg by mouth. aspirin EC 81 MG Tablet Delayed Response Take 81 mg by mouth. furosemide (LASIX) 40 MG Tablet Take 0.5 Tablets by mouth daily. 90 Tablet 1 05/04/2021 Glucose Blood StripIndications :Type 2 diabetes mellitus without complication, without long-term current use of insulin ([facility]) Diagnosis: Diabetes type 2 Blood testing frequency: once a day 100 Strip 3 02/23/2021 losartan (COZAAR) 25 MG Tablet 06/13/2021 metoprolol Succinate (TOPROL-XL) 100 MG TABLET SR 24 HR Take 2 Tablets by mouth daily. 135 Tablet 1 05/04/2021 VITAMIN D PO Take by mouth daily. warfarin (COUMADIN) 2 MG Tablet Take 3 mg by mouth. Takes 2mg one day and then the next 1.5mg alternating. 90 Tablet 11/30/2020 albuterol 108 (90 Base) MCG/ACT Aerosol Solution take 2 Puffs by inhalation every 4 hours as needed for Wheezing or Cough. 8 g 06/11/2021 2 Blood Glucose Monitoring Suppl DeviceIndication s:Type 2 diabetes mellitus without complication, without long-term current use of insulin (HCC) glDiagnosis: Diabetes type 2 Blood testing frequency: once a day 1 Each 02/23/2021 3 clobetasol (TEMOVATE) 0.05 % Gel 11/24/2020 4 dilTIAZem (CARDIZEM CD) 120 MG CAPSULE SR 24 HR Take 1 Capsule by mouth daily. 90 Capsule 3 06/14/2021 2 gabapentin (NEURONTIN) 600 MG Tablet Take 1 Tablet by mouth daily. 270 Tablet 5 04/04/2021 2 Jardiance 25 MG Tablet TAKE ONE TABLET BY MOUTH EVERY DAY 30 Tablet 2 06/14/2021 2 levothyroxine (SYNTHROID) 75 MCG Tablet Take 1 Tablet by mouth daily. 90 Tablet 1 01/19/2021 2 metFORMIN (GLUCOPHAGE) 1000 MG Tablet Take 1 Tablet by mouth 2 times daily. 180 Tablet 1 01/19/2021 2 mupirocin (BACTROBAN) 2 % Ointment APPLY TO OPEN SORES ON ARMS THREE TIMES DAILY FOR 1 WEEK 11/23/2020 3 PARoxetine (PAXIL) 40 MG Tablet TAKE ONE TABLET BY MOUTH EVERY DAY 90 Tablet 1 05/25/2021 2 simvastatin (ZOCOR) 40 MG Tablet Take 1 tablet by mouth once daily 90 Tablet 1 03/09/2021 3 SITagliptin (JANUVIA) 100 MG Tablet Take 1 Tablet by mouth daily. 90 Tablet 1 01/19/2021 1 traMADol (ULTRAM) 50 MG TabletIndication s:Pain and swelling of right knee TAKE ONE TABLET BY MOUTH EVERY 6 HOURS NEEDED FOR MODERATE OR MORE SEVERE PAIN 28 Tablet 06/06/2021 1 documented as of this encounter Plan of Treatment Upcoming Encounters Date Type Department Care Team (Late st Contact Info) Description 10/29/2024 9:30 AM OPERATIONS SPECIALIST Office Visit [facility] [address] [place] [address] Bhargavi Morel, PAC [address] [place] [address] documented as of this encounter Procedures Procedure Name Priority Date/Time Associated Diagnosis Comments CT CHEST W/O CONTRAST Routine 08/10/2021 10:35 AM OPERATIONS SPECIALIST Pneumonia of right lower lobe due to infectious organism documented in this encounter Results * CT CHEST W/O CONTRAST (08/10/2021 10:35 AM OPERATIONS SPECIALIST) Anatomical Region Laterality Modality Chest N/A Computed Tomogra phy 08/11/2021 9:06 AM OPERATIONS SPECIALIST Impressions 08/11/2021 9:08 AM OPERATIONS SPECIALIST IMPRESSION: ?? 1. ?? Complete or near complete resolution of the bronchial pneumonia of the right lower and right upper lobe. 2. ?? Ground-glass opacities of the lungs that are similar. ??Similar pleuroparenchymal opacities. 3. ?? Similar mildly prominent lymph nodes of the chest. ??Again these may be reactive. ??Continued follow-up recommended in 3 months. Narrative 08/11/2021 9:08 AM OPERATIONS SPECIALIST EXAM DESCRIPTION: ?? CT CHEST W/O CONTRAST REASON FOR STUDY: ?? Pneumonia, unspecified organism TECHNIQUE: CT scan of the chest performed without intravenous contrast using helical scanning technique. Reconstructed coronal and sagittal MPR images reviewed. ??All images stored on PACS. ??Automated exposure control was used as a dose optimization technique for this examination. COMPARISON: ?? 06/10/2021 FINDINGS: The sensitivity for detection of solid visceral lesions is diminished without the use of intravenous contrast. Marked improved appearance of the pneumonia involving the right lower lobe and the minimal component involving the right upper lobe. Minimal if any significant residual airspace disease in these regions. ??Some ground-glass opacities persist in this region as well. ??Ground-glass opacities of the upper lung shah present and similar when allowing for differences in technique. ?? Pleuroparenchymal opacities that are similar. ??No pneumothorax. ?? Tiny right pleural effusion. ?? Lymph nodes of the chest are similarly prominent. ??The reference node on previous exam is on axial image 41 on today's study measuring 2 cm x 1.1 cm. ??Heart remains enlarged. ??Postop changes of the chest. ??Multivessel calcified coronary arterial disease. ?? Visualized portions of the abdomen are similar. ??No suspicious acute findings of the visualized portions of the abdomen. THIS IS AN ELECTRONICALLY VERIFIED FINAL REPORT 08/11/2021 9:06 AM - Electronically signed by ??Gordy ABREU: BRADY D: ??08/11/2021 9:06 AM T: ??08/11/2021 9:06 AM Report ID: [id number] Reading Location: ??[id number] Procedure Note Gordy Parekh, DO - 08/11/2021 EXAM DESCRIPTION: CT CHEST W/O CONTRAST REASON [...] 9:06 AM - Electronically signed by Gordy ABREU: BRADY Report ID: [id number] Reading Location: [id number] IMPRESSION: 1. Complete or near complete resolution of the bronchial pneumonia of the right lower and right upper lobe. 2. Ground-glass opacities of the lungs that are similar. Similar pleuroparenchymal opacities. 3. Similar mildly prominent lymph nodes of the chest. Again these may be reactive. Continued follow-up recommended in 3 months. Bhargavi Morel PAC IMG CT ORDERABLES Final Result documented in this encounter Visit Diagnoses Diagnosis Pneumonia of right lower lobe due to infectious organism documented in this encounter Care Teams Community Health Coordinator Relationship Specialty Start Date End Date Jovita Bermudez MD [address] [place] [address] PCP - General Family Medicine 11/30/20 07/21/23 documented as of this encounter
--- OUTSIDE RECORDS SUMMARY | 2024-08-30 18:50 | XMS_ITS | Encounter Summary ---
Author Organization [facility] Address [address] [place] [address] Phone Care Team Providers Care Nail Making Machine Tender Name Role Phone Jovita Bermudez MD Primary Care Provider [phone] Reason for Visit * Reason Onset Date Comments Medication Refill Medication Refill 04/18/2021 Encounter Details Date Type Department Care Team (Late st Contact Info) Description 04/18/2021 Telephone [facility] [address] [place] [address] Harry Howell MD [address] [place] [address] Medication Refill; Medication Refill Social History Tobacco Use Types [...] have Coronavirus / COVID-19? No / Unsure 04/04/2021 2:01 PM CDT documented as of this encounter Miscellaneous Notes * Telephone Encounter - Sherry Knight RN - 04/20/2021 3:56 PM CDT The patient was notified PCP said tramadol is a controlled medication, will need an office visit. The patient said she has an OV appointment scheduled with PCP for 05/04/21 and she will just keep that appointment. * Telephone Encounter - Jovita Bermudez MD - 04/20/2021 3:10 PM CDT Controlled medication, will need OV * Telephone Encounter - Sherry Knight RN - 04/20/2021 2:49 PM CDT The patient was notified PCP said we would be much safer using tylenol or tramadol. The patient said she has tried tylenol in the past and it does not help. The patient asked if PCP would send a script for Tramadol to [facility]. * Telephone Encounter - Jovita Bermudez MD - 04/20/2021 2:45 PM CDT We would be much safer using tylenol or tramadol * Telephone Encounter - Sherry Knight RN - 04/19/2021 10:31 AM CDT The patient was notified Celebrex is not recommended with warfarin. The patient voiced understanding. The patient said she does take warfarin but also has arthritis especially in her knees. The patient asked PCP what is recommended for her arthritis? (OK to DC Celebrex from med list?) * Telephone Encounter - Jovita Bermudez MD - 04/19/2021 9:04 AM CDT NSAIDs are not recommended with warfarin * Telephone Encounter - Emeli Rowan RN - 04/18/2021 4:03 PM CDT Patient calling back States she does not take coumadin, she takes warfarin. Education provided to patient regarding Coumadin is the brand name of warfarin. Patient states she saw a provider at [facility], believes it was Sukhdev Fuller MD. States she has been taking Celebrex and it helps. Education provided that Celebrex may increase the anticoagulant effects of warfarin. Patient states she hopes she can still take it as it helps To provider for guidance * Telephone Encounter - Sherry Knight RN - 04/18/2021 2:40 PM CDT Left a message for the patient to return call. * Telephone Encounter - Jovita Bermudez MD - 04/18/2021 2:34 PM CDT Please confirm patient is not on coumadin * Telephone Encounter - Kamilla Tineo RN - 04/18/2021 2:27 PM CDT Medication failed the protocol, provider to review and approve the medication order if appropriate. Requested Prescriptions Pending Prescriptions Disp Refills celecoxib (CeleBREX) 200 MG Capsule [Pharmacy Med Name: CELECOXIB 200MG CAPS] 30 Capsule 0 Sig: TAKE ONE CAPSULE BY MOUTH EVERY DAY NSAIDs Protocol Failed - 04/18/2021 2:27 PM Failed - Not delegated, patient not between 1 and 65 years of age Failed - No matching NSAID med order in past 45 days Matching medication order placed on 03/22/2021 4:14 PM Order [id number]: celecoxib (CeleBREX) 200 MG Capsule (For orders placed between 03/04/2021 2:27 PM and 04/18/2021 2:27 PM) Passed - Normal serum creatinine in past 12 months CREATININE, BLOOD Date Value Ref Range Status 03/17/2021 0.60 0.60 - 1.10 mg/dL Final Passed - Visit with relevant provider in past 12 months or upcoming 90 days Recent Visits Date Type Provider Dept 03/17/21 Office Visit Harry Howell MD [facility] 01/19/21 Office Visit Jovita Bermudez MD [facility] 11/30/20 Office Visit [facility] Showing recent visits within past 365 days and meeting all other requirements Future Appointments Date Type Provider Dept 05/04/21 Appointment Jovita Bermudez MD [facility] Showing future appointments within next 90 days and meeting all other requirements Passed - AST less than 55 or ALT less than 90 in past 12 months SGOT (AST) Date Value Ref Range Status 02/23/2021 25 <=32 U/L Final SGPT (ALT) Date Value Ref Range Status 02/23/2021 25 <=41 U/L Final Passed - HGB greater than 10 or HCT greater than 30 in past 12 months HEMOGLOBIN (HGB) Date Value Ref Range Status 02/23/2021 13.9 12.0 - 15.8 g/dL Final HEMATOCRIT (HCT) Date Value Ref Range Status 02/23/2021 44.4 36.0 - 47.0 % Final [facility] Analgesics: COX2 Inhibitors Passed - 04/18/2021 2:27 PM Passed - Valid encounter within last 6 months Past Office Visits Recent Outpatient Visits 1 month ago Acute pain of right knee [facility] - Harry Mancilla MD 2 months ago Type 2 diabetes mellitus without complication, without long-term current use of insulin (HCC) [facility] - Jovita Vinson MD 4 months ago Daytime somnolence [facility] Jovita Vinson MD Upcoming Appointments Future Appointments In 2 weeks Jovita Bermudez MD [facility] In 5 months Flaquito Hurd MD [facility] Medical [facility] - Pulmonology & Sleep Medicine [facility] LARD MAKER - Recent and Past Visits Recent Visits Date Type Provider Dept 03/17/21 Office Visit Harry Howell MD [facility] 01/19/21 Office Visit Jovita Bermudez MD [facility] 11/30/20 Office Visit Jovita Bermudez MD [facility] Showing recent visits within past 460 days with a meds authorizing provider and meeting all other requirements Future Appointments Date Type Provider Dept 05/04/21 Appointment Jovita Bermudez MD [facility] Showing future appointments within next 90 days with a meds authorizing provider and meeting all other requirements documented in this encounter Plan of Treatment Upcoming Encounters Date Type Department Care Team (Late st Contact Info) Description 10/29/2024 9:30 AM PRIMER WATERPROOFING MACHINE ADJUSTER Office Visit [facility] Family [facility] [address] [place] [address] Bhargavi Morel PAC [address] [place] [address] documented as of this encounter Visit Diagnoses Not on filedocumented in this encounter Care Teams Nail Making Machine Tender Relationship Specialty Start Date End Date Jovita Bermudez MD [address] [place] [address] PCP - General Family Medicine 11/30/20 07/21/23 documented as of this encounter
--- OUTSIDE RECORDS SUMMARY | 2024-08-30 18:50 | XMS_ITS | Encounter Summary ---
Author Organization [facility] Address [address] [place] [address] Phone Care Team Providers Care Lumber Grader Name Role Phone Jovita Bermudez MD Primary Care Provider [phone] Reason for Visit * Reason Onset Date Comments Breast Problem 03/15/2022 mammogram Encounter Details Date Type Department Care Team (Late st Contact Info) Description 03/15/2022 Patient Outreach [facility] - Family [facility] [address] [place] [address] Jovita Bermudez MD [address] [place] [address] Breast Problem (mammogram) Social History Tobacco Use Types Packs/Day Years [...] Telephone Encounter - Lo Bray RMA - 03/15/2022 11:04 AM CDT Letter sent in regard to mammogram documented in this encounter Plan of Treatment Upcoming Encounters Date Type Department Care Team (Late st Contact Info) Description 10/29/2024 9:30 AM HEAD START COORDINATOR Office Visit [facility] - Family Medicine [facility] [address] [place] [address] Bhargavi Morel, PAC [address] [place] [address] documented as of this encounter Visit Diagnoses Not on filedocumented in this encounter Care Teams Lumber Grader Relationship Specialty Start Date End Date Jovita Bermudez MD [address] [place] [address] PCP - General Family Medicine 11/30/20 07/21/23 documented as of this encounter
--- OUTSIDE RECORDS SUMMARY | 2024-08-30 18:50 | XMS_ITS | Encounter Summary ---
Author Organization [facility] Address [address] [place] [address] Phone Care Team Providers Care Winding Inspector Name Role Phone Jovita Bermudez MD Primary Care Provider [phone] Reason for Visit * Reason Comments Follow-up 3 mo Encounter Details Date Type Department Care Team (Late st Contact Info) Description 05/04/2022 1:30 PM CDT Office Visit [facility] [address] [place] [address] Bhargavi Morel, [facility] [address] [place] [address] Type 2 diabetes mellitus without complication, without long-term current use of insulin (HCC) (Primary Dx); Permanent atrial fibrillation (HCC); Hypothyroidism, unspecified type; BMI 38.0-38.9,adult; Encounter for immunization Discharge Disposition: Discharged to home or Selfcare Social History Tobacco Use Types Packs/Day Years Used Date Smoking Tobacco: Former Cigarettes 2 35 Smokeless Tobacco: Never Tobacco Cessation:Counseling Given: No Alcohol Use Standard Drinks/Week Comments Not Currently 0 (1 standard drink = 0.6 oz pur e alcohol) PHQ-2 Answer Date Recorded Total Score - Questions 1-9 0 03/2022 Sexually Active Control Partners Comments Not Currently [...] suspected to have Coronavirus/COVID-19? No / Unsure 05/04/2022 1:08 PM CDT documented as of this encounter Last Filed Vital Signs Vital Sign Reading Time Taken Comments Blood Pressure 118/68 05/04/2022 1:30 PM CDT Pulse 100 05/04/2022 1:30 PM CDT Temperature 36.4 ??C (97.6 ??F) 05/04/2022 1:30 PM CD T Respiratory Rate 16 05/04/2022 1:30 PM CDT Oxygen Saturation 97% 05/04/2022 1:30 PM CDT Inhaled Oxygen Concentration - - Weight 103.9 kg (229 lb) 05/04/2022 1:30 PM CDT Height 165.1 cm (5' 5 ) 05/04/2022 1:30 PM CDT Body Mass Index 38.11 05/04/2022 1:30 PM CDT documented in this encounter Patient Instructions * Patient Instructions* Bhargavi Morel PAC - 05/04/2022 1:30 PM CDT Labs today as ordered Call to schedule Ct chest documented in this encounter Progress Notes * Lo Bray RMA - 05/04/2022 1:30 PM CDT Tressa Derek Myers, 67 y.o., female is here for Follow-up (3 mo) Medication Refills: Patient reports/denies need for medication refills. Orders Pended: yes Requested Prescriptions No prescriptions requested or ordered in this encounter Home Medications Medication Sig Start Date End Date Taking? Authorizing Provider albuterol 108 (90 Base) MCG/ACT Aerosol Solution take 2 Puffs by inhalation every 4 hours as neededfor Wheezing or Cough. Patient not taking: Reported on 04/19/2022 06/11/21 Yamil Benoit MD Ascorbic Acid 500 MG Chewable Tablet [...] HR Take 1 Capsule by mouth daily. 06/14/21 Yes Bhargavi Morel PAC fluconazole (DIFLUCAN) 150 MG Tablet Take 1 Tablet by mouth once for 1 dose. 04/20/22 04/20/22 Jovita Bermudez MD furosemide (LASIX) 40 MG Tablet Take 0.5 Tablets by mouth daily. Patient not taking: Reported on 05/04/2022 05/04/21 Jovita Bermudez MD gabapentin (NEURONTIN) 600 MG Tablet TAKE 1 TABLET BY MOUTH DAILY 04/19/22 Yes Debra Roque APRN, [employer] [facility] Glucose Blood Strip Diagnosis: Diabetes type 2 Blood testing frequency: once a day 02/23/21 Yes Jovita Bermudez MD Januvia 100 MG Tablet TAKE ONE TABLET BY MOUTH EVERY DAY 02/15/22 Yes Jovita Bermudez MD Jardiance 25 MG Tablet TAKE ONE TABLET BY MOUTH EVERY DAY 03/22/22 Yes Jovita Bermudez MD levothyroxine (SYNTHROID) 75 MCG Tablet TAKE ONE TABLET BY MOUTH EVERY DAY 01/18/22 Yes Jovita Bermudez MD losartan (COZAAR) 25 MG Tablet 06/13/21 ProviderHomero MD metFORMIN (GLUCOPHAGE) 1000 MG Tablet TAKE ONE TABLET BY MOUTH TWICE A DAY 10/18/21 Yes Jovita Bermudez MD metoprolol Succinate (TOPROL-XL) 100 MG TABLET SR 24 HR Take 2 Tablets by mouth daily. Patient taking differently: Take 150 mg by mouth daily. 05/04/21 Yes Jovita Bermudez MD mupirocin (BACTROBAN) 2 % Ointment APPLY TO OPEN SORES ON ARMS THREE TIMES DAILY FOR 1 WEEK 11/23/20Yes ProviderHomero MD PARoxetine (PAXIL) 40 MG Tablet TAKE ONE TABLET BY MOUTH EVERY DAY 03/21/22 Yes Jovita Bermudez MD simvastatin (ZOCOR) 40 MG Tablet Take 1 tablet by mouth once daily 03/09/21 Yes Jovita Bermudez MD traMADol (ULTRAM) 50 MG Tablet TAKE ONE TABLET BY MOUTH EVERY 6 HOURS NEEDED FOR MODERATE OR MORE SEVERE PAIN 05/03/22 Yes Jovita Bermudez MD VITAMIN D PO [...] History Tobacco Use ??? Smoking status: Former Smoker Packs/day: 2.00 Years: 35.00 Pack years: 70.00 Types: Cigarettes ??? Smokeless tobacco: Never Used Substance Use Topics ??? Alcohol use: Not Currently ??? Drug use: Yes Types: Marijuana Comment: a few times per week Smoking Cessation Counseling Given: no Health Care Maintenance: Health Maintenance Due Topic Date Due ??? Hepatitis B Immunization (1 of 3 - 3-dose series) Never done ??? Dilated Eye Exam Never done ??? DEXA Bone Density Never done ??? Colorectal Cancer Screening Never done ??? Mammogram Never done ??? Zoster Immunization (1 of 2) Never done ??? DTaP/Tdap/Td Immunization (2 - Td or Tdap) 04/03/2016 ??? Influenza Immunization (1) 04/27/2022 ??? Pneumococcal Immunization (65+ years) (3 - PPSV23 or PCV20) 05/04/2022 Orders Pended: no The following BPA's have been addressed with the patient today: Depression functional nutritional fall risk * Lo Bray RMA - 05/04/2022 1:30 PM CDT Tressa presents today for immunization/ injection of flu vaccine and prevnar 20 ordered today 05/04/22 by Bhargavi Hameed. It was administered to patient without incident. Patient tolerated it well. See immunizations/injections activity. * Bhargavi Morel, PAC - 05/04/2022 1:30 PM CDT Subjective: Patient in the office today for follow up on chronic health conditions, she has atrial fibrillationand sees pickers material handlers regularly, they monitor his inr, 04/11/22 inr 2.1 Has type 2 diabetes New grand daughter Working at [employer] in [facility] Review of Systems Constitutional: Negative for chills and fever. Respiratory: Negative for cough and chest tightness. Chronic sob, no worsening Cardiovascular: Negative for chest pain, palpitations and leg swelling. No PND Gastrointestinal: Negative for abdominal pain, constipation, diarrhea, nausea and vomiting. Genitourinary: Negative for difficulty urinating. Musculoskeletal: Positive for arthralgias. Neurological: Negative for dizziness, light-headedness and headaches. Objective: Physical Exam Vitals reviewed. Constitutional: Appearance: Normal appearance. She is not ill-appearing. HENT: Head: Normocephalic and atraumatic. Eyes: General: Right eye: No discharge. Left eye: No discharge. Extraocular Movements: Extraocular movements intact. Cardiovascular: Comments: Irregular rate and rhythm Pulmonary: Effort: Pulmonary effort is normal. No respiratory distress. Breath sounds: Normal breath sounds. No wheezing. Skin: General: Skin is warm. Neurological: Mental Status: She is alert. Psychiatric: Mood and Affect: Mood normal. No pitting edema in lower extremities Assessment and Plan See Diagnoses, Orders, Follow-up, and Instructions .Diagnoses and all orders for this visit: Type 2 diabetes mellitus without complication, without long-term current use of insulin (HCC) - CMP (COMPREHENSIVE METABOLIC PANEL); Future - COMPLETE BLOOD COUNT (CBC) WITH DIFF; Future - HEMOGLOBIN A1C W/ ESTIMATED GLUCOSE; Future - VITAMIN B12; Future - UR MICROALBUMIN/CREATININE RATIO RANDOM; Future Permanent atrial fibrillation (HCC) - MAGNESIUM (MG); Future Hypothyroidism, unspecified type - THYROID STIMULATING HORMONE (TSH); Future BMI 38.0-38.9,adult - VITAMIN D, 25 HYDROXY TOTAL; Future Encounter for immunization - PNEUMOCOCCAL CONJUGATE VACCINE (PCV20) IM - PCV-20 IMMUNIZATION QUESTIONS Other orders - INFLUENZA VACCINE QUAD IM - INFLUENZA (>3) IMMUNIZATION QUESTIONS - albuterol 108 (90 Base) MCG/ACT Aerosol Solution; take 2 Puffs by inhalation every 4 hours as needed for Wheezing or Cough. Labs as ordered for follow up on diabetes, rule out magnesium deficiency Follow up on hypothyroidism Discussed she is over due for repeat CT chest order is open, needs to call and schedule Vaccines today Follow up in 3 months documented in this encounter Plan of Treatment Upcoming Encounters Date Type Department Care Team (Late st Contact Info) Description 10/29/2024 9:30 AM B2B APPOINTMENT SETTER [facility] [address] [place] [address] Bhargavi Morel PAC [address] [place] [address] documented as of this encounter Results * (ABNORMAL) UR MICROALBUMIN/CREATININE RATIO RANDOM (05/04/2022 2:28 PM CDT) RAN UR MICROALBUMIN 14.83(H) <=2.00 mg/dL 05/04/2022 4:15 PM CDT [facility] CREATININE URINE 149.4 28.0 - 217.0 mg/dL 05/04/2022 4:15 PM CDT [facility] ALB/CREAT RATIO 99(H) 1 - 30 mg/g CRE 05/04/2022 4:15 PM CDT [facility] Urine Non-Phlebotomy Collection / Unknown 05/04/2022 2:28 PM CDT 05/04/2022 2:28 PM CDT Bhargavi Ibrahimstephen PAC URINE ORDERABLES Final R esult Performing Organization Address City/[facility]/ZIP Co de Phone Number [facility] [address] [place] [address] * MAGNESIUM (MG) (05/04/2022 2:28 PM CDT) MAGNESIUM 1.8 1.8 - 2.5 mg/dL 05/04/2022 4:23 PM CDT [facility] Blood Venipuncture / Unknown 05/04/2022 2:28 PM CDT 05/04/2022 2:28 PM CDT Bhargavi Morel PAC CHEMISTRY ORDERABLES Fin al Result Performing Organization Address [facility] Co de Phone Number [facility] [address] [place] [address] * (ABNORMAL) VITAMIN D, 25 HYDROXY TOTAL (05/04/2022 2:28 PM CDT) VITAMIN D, 25 HYDROX 23(L) >=30 ng/mL 05/04/2022 4:34 PM CDT [facility] Blood Venipuncture / Unknown 05/04/2022 2:28 PM CDT 05/04/2022 2:28 PM CDT Narrative [facility] - 05/04/2022 4:34 PM CDT Published reference ranges for Vitamin D vary depending on time and place and method of testing, and on patient's age, sex, ethnicity and levels of other measured analytes such as parathormone, calcium and phosphorus. ??The result should be evaluated in conjunction with clinical findings and suspicions. [employer] and [employer]ocrine Clinical Practice Guidelines: Status Vitamin D levels (ng/mL) Deficient <=20 At risk of inadequacy 21-29 Sufficient 30-100 Centers of Disease Control and Prevention Guidelines: Status Vitamin D levels (ng/mL) Deficient <13 At risk of inadequacy 13-19 Sufficient 20-50 Possibly harmful >50 References: [employer], 2010 Dietary reference intakes for calcium and vitamin D. [place]: ??The National Academies Press. Daniela M, Gina N, Genoveva HURD, et al., Evaluation, treatment, and prevention of Vitamin D deficiency: an Endocrinology Clinical Practice Guideline. JCEM 2011 96: 7 1491-5668. Althea A, Kenroy C, Etta D, et al., Vitamin D Status: ??[place], 2000- 1005, [facility] data brief, no. 59, MD Xuan: ??[facility] for Health Statistics. 2011. Vania Maria Teresa PAC CHEMISTRY ORDERABLES Fin al Result [facility] [address] [place] [address] * VITAMIN B12 (05/04/2022 2:28 PM CDT) VITAMIN B12 471 243 - 894 pg/mL 05/04/2022 4:34 PM CDT [facility] Blood Venipuncture / Unknown 05/04/2022 2:28 PM CDT 05/04/2022 2:28 PM CDT Vaniaquintin Reedmary PAC CHEMISTRY ORDERABLES Fin al Result [facility] [address] [place] [address] * (ABNORMAL) HEMOGLOBIN A1C W/ ESTIMATED GLUCOSE (05/04/2022 2:28 PM CDT) HGB-A1C 9.1(H) 4.0 - 6.0 % 05/04/2022 4:14 PM CDT [facility] Est Average Glucose 214.5 mg/dL 05/04/2022 4:14 PM CDT [facility] Blood Venipuncture / Unknown 05/04/2022 2:28 PM CDT 05/04/2022 2:28 PM CDT Narrative [facility] - 05/04/2022 4:14 PM CDT HEMOGLOBIN A1C: DIABETIC PATIENTS: WELL-CONTROLLED: ?? 6.2 - 7.0 INTERMEDIATE WELL-CONTROLLED: ??7.0 - 9.0 POORLY-CONTROLLED: ??>9.0 Bhargavi Morel PAC CHEMISTRY ORDERABLES Fin al Result Performing Organization Address City/[facility] Co de Phone Number [facility] [address] [place] [address] * THYROID STIMULATING HORMONE (TSH) (05/04/2022 2:28 PM CDT) Pathologist [facility] TSH 1.760 0.270 - 4.200 mIU/L 05/04/2022 4:23 PM CDT [facility] Blood Venipuncture / Unknown 05/04/2022 2:28 PM CDT 05/04/2022 2:28 PM CDT Bhargavi Morel PAC CHEMISTRY ORDERABLES Fin al Result Performing Organization Address [facility] Co de Phone Number [facility] [address] [place] [address] * (ABNORMAL) CMP (COMPREHENSIVE METABOLIC PANEL) (05/04/2022 2:28 PM CDT) SODIUM 136 136 - 144 mmol/L 05/04/2022 4:23 PM CDT [facility] POTASSIUM 4.7 3.5 - 5.1 mmol/L 05/04/2022 4:23 PM CDT [facility] CHLORIDE 101 100 - 110 mmol/L 05/04/2022 4:23 PM CDT [facility] CO2, VENOUS 25 22 - 32 mmol/L 05/04/2022 4:23 PM CDT [facility] ANION GAP 14.7 8.0 - 20.0 mmol/L 05/04/2022 4:23 PM [facility] GLUCOSE 147(H) 70 - 99 mg/dL 05/04/2022 4:23 PM [facility] BUN 24(H) 8 - 23 mg/dL 05/04/2022 4:23 PM [facility] CREATININE, BLOOD 0.88 0.60 - 1.10 mg/dL 05/04/2022 4:23 PM [facility] BUN/CREATININE RATIO 27(H) 12 - 20 ratio 05/04/2022 4:23 PM [facility] TOTAL PROTEIN 7.4 6.0 - 8.3 g/dL 05/04/2022 4:23 PM [facility] ALBUMIN 4.0 3.5 - 5.2 g/dL 05/04/2022 4:23 PM [facility] Comment: The colormetric methods used for the determination of Albumin may lead to falsely elevated test results in patients suffering from renal failure or insufficiency due to interference with other proteins. A/G RATIO 1.2 1.0 - 2.0 05/04/2022 4:23 PM [facility] CALCIUM 9.5 8.9 - 10.3 mg/dL 05/04/2022 4:23 PM [facility] T BILI 0.3 <=1.2 mg/dL 05/04/2022 4:23 PM [facility] SGOT (AST) 34(H) <=32 U/L 05/04/2022 4:23 PM [facility] SGPT (ALT) 26 <=41 U/L 05/04/2022 4:23 PM [facility] ALKALINE PHOSPHATASE 93 35 - 105 U/L 05/04/2022 4:23 PM [facility] IS THE PATIENT REQUIRED TO BE FASTING? No 05/04/2022 4:23 PM [facility] GFR, ESTIMATED >60 >=60 05/04/2022 4:23 PM CDT [facility] Comment: Creatinine Clearance is the preferred criteria for selecting drug dose adjustments in renally impaired patients. ??The GFR is provided as additional pertinent clinical information. GFR is reported in mL/min/1.73 sq m. Calculation based on the Chronic Kidney Disease Epidemiology Collaboration (CKD- EPI) equation refit without adjustment for race. GFR, EST. >60 >=60 022 4:23 PM CDT [facility] GFR, EST. NONAFRICAN >60 >=60 05/04/2022 4:23 PM CDT [facility] Blood Venipuncture / Unknown 05/04/2022 2:28 PM CDT 05/04/2022 2:28 PM CDT us Bhargavi Morel PAC CHEMISTRY ORDERABLES Fin al Result [facility] [address] [place] [address] documented in this encounter Visit Diagnoses Diagnosis Type 2 diabetes mellitus without complication, without long-term current use of insulin (HCC)- Primary Permanent atrial fibrillation (HCC) Atrial fibrillation Hypothyroidism, unspecified type BMI 38.0-38.9,adult Body Mass Index 38.0-38.9, adult Encounter for immunization Need for other specified prophylactic vaccination against single bacterial disease documented in this encounter Additional Health Concerns Assessment Noted Time PHQ-9 Depression Total Score: 0 05/04/20 22 1:35 PM CDT documented as of this encounter Care Teams Winding Inspector Relationship Specialty Start Date End Date Jovita Bermudez MD [address] [place] [address] PCP - General Family Medicine 11/30/20 07/21/23 documented as of this encounter
--- OUTSIDE RECORDS SUMMARY | 2024-08-30 18:50 | XMS_ITS | Encounter Summary ---
Author Organization [facility] Address [address] [place] [address] Phone Care Team Providers Care Hospitality Host Name Role Phone Jovita Bermudez MD Primary Care Provider [phone] Encounter Details Date Type Department Care Team (Late st Contact Info) Description 08/10/2021 9:50 AM SMALL BUSINESS REPRESENTATIVE Lab [facility] [address] [address] [facility] Lab/Ancillary Type 2 diabetes mellitus without complication, without long-term current use of insulin (HCC) Discharge Disposition: Discharged to home or [...] COVID-19? No / Unsure 08/10/2021 9:44 AM SMALL BUSINESS REPRESENTATIVE documented as of this encounter Progress Notes * Michelle Dutton - 08/10/2021 9:50 AM CST Tressa presents for lab draw per order of DR WILSON dated [id number]. Specimen collected from left antecubital without incident. [facility] BUSINESS REPRESENTATIVE documented in this encounter Plan of Treatment Upcoming Encounters Date Type Department Care Team (Late st Contact Info) Description 10/29/2024 9:30 AM SMALL BUSINESS REPRESENTATIVE Office Visit [facility] [address] [place] [address] Bhargavi Morel, PAC [address] [place] [address] documented as of this encounter Procedures Procedure Name Priority Date/Time Associated Diagnosis Comments HEMOGLOBIN A1C W/ ESTIMATED GLUCOSE Routine 08/10/2021 9:56 AM SMALL BUSINESS REPRESENTATIVE Type 2 diabetes mellitus without complication, without long-term current use of insulin (HCC) CMP (COMPREHENSIVE METABOLIC PANEL) Routine 08/10/2021 9:56 AM SMALL BUSINESS REPRESENTATIVE Type 2 diabetes mellitus without complication, without long-term current use of insulin (HCC) documented in this encounter Results * (ABNORMAL) HEMOGLOBIN A1C W/ ESTIMATED GLUCOSE (08/10/2021 9:56 AM SMALL BUSINESS REPRESENTATIVE) HGB-A1C 7.6(H) 4.0 - 6.0 % 08/10/2021 12:29 PM SMALL BUSINESS REPRESENTATIVE [facility] Est Average Glucose 171.4 mg/dL 08/10/2021 12:29 PM SMALL BUSINESS REPRESENTATIVE [facility] Blood Venipuncture / Unknown 08/10/2021 9:56 AM SMALL BUSINESS REPRESENTATIVE 08/10/2021 9:56 AM SMALL BUSINESS REPRESENTATIVE Narrative [facility] - 08/10/2021 12:29 PM SMALL BUSINESS REPRESENTATIVE HEMOGLOBIN A1C: DIABETIC PATIENTS: WELL-CONTROLLED: ?? 6.2 - 7.0 INTERMEDIATE WELL-CONTROLLED: ??7.0 - 9.0 POORLY-CONTROLLED: ??>9.0 Jovita Bermudez MD CHEMISTRY ORDERABLES Final Result [facility] [address] [place] [address] * (ABNORMAL) CMP (COMPREHENSIVE METABOLIC PANEL) (08/10/2021 9:56 AM SMALL BUSINESS REPRESENTATIVE) SODIUM 135(L) 136 - 144 mmol/L 08/10/2021 12:37 PM [facility] POTASSIUM 4.4 3.5 - 5.1 mmol/L 08/10/2021 12:37 PM [facility] CHLORIDE 98(L) 100 - 110 mmol/L 08/10/2021 12:37 PM [facility] CO2, VENOUS 25 22 - 32 mmol/L 08/10/2021 12:37 PM [facility] ANION GAP 16.4 8.0 - 20.0 mmol/L 08/10/2021 12:37 PM [facility] GLUCOSE 180(H) 70 - 99 mg/dL 08/10/2021 12:37 PM [facility] BUN 19 8 - 23 mg/dL 08/10/2021 12:37 PM [facility] CREATININE, BLOOD 0.68 0.60 - 1.10 mg/dL 08/10/2021 12:37 PM [facility] BUN/CREATININE RATIO 28(H) 12 - 20 ratio 08/10/2021 12:37 PM [facility] TOTAL PROTEIN 7.5 6.0 - 8.3 g/dL 08/10/2021 12:37 PM [facility] ALBUMIN 4.1 3.5 - 5.2 g/dL 08/10/2021 12:37 PM [facility] Comment: The colormetric methods used for the determination of Albumin may lead to falsely elevated test results in patients suffering from renal failure or insufficiency due to interference with other proteins. A/G RATIO 1.2 1.0 - 2.0 08/10/2021 12:37 PM [facility] CALCIUM 9.4 8.9 - 10.3 mg/dL 08/10/2021 12:37 PM SMALL BUSINESS REPRESENTATIVE [facility] T BILI 0.4 <=1.2 mg/dL 08/10/2021 12:37 PM SMALL BUSINESS REPRESENTATIVE [facility] SGOT (AST) 29 <=32 U/L 08/10/2021 12:37 PM SMALL BUSINESS REPRESENTATIVE [facility] SGPT (ALT) 27 <=41 U/L 08/10/2021 12:37 PM SMALL BUSINESS REPRESENTATIVE [facility] ALKALINE PHOSPHATASE 105 35 - 105 U/L 08/10/2021 12:37 PM SMALL BUSINESS REPRESENTATIVE [facility] GFR, EST. NONAFRICAN >60 >=60 08/10/2021 12:37 PM SMALL BUSINESS REPRESENTATIVE [facility] GFR, EST. >60 >=60 021 12:37 PM SMALL BUSINESS REPRESENTATIVE [facility] Comment: Creatinine Clearance is the preferred criteria for selecting drug dose adjustments in renally impaired patients. ??The GFR is provided as additional pertinent clinical information. GFR is reported in mL/min/1.73 sq m. IS THE PATIENT REQUIRED TO BE FASTING? No 08/10/2021 12:37 PM SMALL BUSINESS REPRESENTATIVE [facility] Blood Venipuncture / Unknown 08/10/2021 9:56 AM SMALL BUSINESS REPRESENTATIVE 08/10/2021 9:56 AM SMALL BUSINESS REPRESENTATIVE Jovita Bermudez MD CHEMISTRY ORDERABLES Final Result [facility] [address] [place] [address] documented in this encounter Visit Diagnoses Diagnosis Type 2 diabetes mellitus without complication, without long-term current use of insulin (HCC) documented in this encounter Care Teams Hospitality Host Relationship Specialty Start Date End Date Jovita Bermudez MD [address] [place] [address] PCP - General Family Medicine 11/30/20 07/21/23 documented as of this encounter
--- OUTSIDE RECORDS SUMMARY | 2024-08-30 18:50 | XMS_ITS | Encounter Summary ---
Author Organization [facility] Address [address] [place] [address] Phone Care Team Providers Care Branch Or Department Chief Librarian Name Role Phone Jovita Bermudez MD Primary Care Provider [phone] Reason for Visit * Reason Comments Medication Refill Encounter Details Date Type Department Care Team (Late st Contact Info) Description 06/20/2022 Refill [facility] - Family Medicine [facility] [address] [place] [address] Bhargavi Morel, ARAM [address] [place] [address] Medication Refill Social History Tobacco Use Types Packs/Day Years Used Date Smoking Tobacco: Former Cigarettes 2 35 Smokeless Tobacco: Never Alcohol Use Standard Drinks/Week Comments Not Currently 0 (1 standard drink = 0.6 oz pur e alcohol) PHQ-2 Answer Date Recorded Total Score - Questions 1-9 0 09/0 03/2022 Sexually Active Control Partners Comments Not Currently Comments No Sex and Gender Information Value Date Recorded Sex Assigned at Female 04/09/2023 4:28 PM CDT Legal Sex Female 7:50 PM CDT Gender Identity Female 04/09/2023 4:28 PM CDT Sexual Orientation Not on file documented as of this encounter Miscellaneous Notes * Telephone Encounter - Irena Gross RN - 06/20/2022 11:06 AM CDT Medication warning Per nursing clinical judgement, provider to review and approve the medication(s) order(s) if appropriate. Requested Prescriptions Pending Prescriptions Disp Refills dilTIAZem (CARDIZEM CD) 120 MG CAPSULE SR 24 HR [Pharmacy Med Name: DILTIAZEM HCL ER COATED BE 120 CP24] 90 Capsule 2 Sig: TAKE ONE CAPSULE BY MOUTH EVERY DAY Calcium-Channel Blockers Protocol Passed - 06/20/2022 9:44 AM Passed - BP on record in the past year Clinician-entered: BP Readings from Last 3 Encounters: 05/04/22 118/68 11/09/21 110/62 08/25/21 132/78 Patient-entered: No data recorded Passed - Visit with relevant provider in past 12 months or upcoming 90 days Recent Visits Date Type Provider Dept 05/04/22 Office Visit [facility] 08/25/21 Office Visit Jovita Bermudez MD [facility] Showing recent visits within past 365 days and meeting all other requirements Future Appointments No visits were found meeting these conditions. Showing future appointments within next 90 days and meeting all other requirements documented in this encounter Plan of Treatment Upcoming Encounters Date Type Department Care Team (Late st Contact Info) Description 10/29/2024 9:30 AM DEVELOPMENT VICE PRESIDENT Office Visit [facility] Medical [facility] - Family Medicine [facility] [address] [place] [address] Bhargavi Morel PAC [address] [place] [address] documented as of this encounter Visit Diagnoses Not on filedocumented in this encounter Additional Health Concerns Assessment Noted Time PHQ-9 Depression Total Score: 0 05/04/20 22 1:35 PM CDT documented as of this encounter Care Teams Branch Or Department Chief Librarian Relationship Specialty Start Date End Date Jovita Bermudez MD [address] [place] [address] PCP - General Family Medicine 11/30/20 07/21/23 documented as of this encounter
--- OUTSIDE RECORDS SUMMARY | 2024-08-30 18:50 | XMS_ITS | Encounter Summary ---
Author Organization [facility] Address [address] [place] [address] Phone Care Team Providers Care Technology Project Manager Name Role Phone Jovita Bermudez MD Primary Care Provider [phone] Encounter Details Date Type Department Care Team (Late st Contact Info) Description 05/04/2022 2:20 PM CDT Lab [facility] [address] [facility] [address] [place] [address] [facility] Lab/Ancillary Type 2 diabetes mellitus without complication, without long-term current use of insulin (HCC); Hypothyroidism, unspecified type; BMI 38.0-38.9,adult; Permanent atrial fibrillation (HCC) Discharge Disposition: Discharged [...] PM CDT documented as of this encounter Progress Notes * Martir Rowan - 05/04/2022 2:20 PM CDT Tressa presents for lab draw per order of Bhargavi Morel PA-C dated 05/04/22. Specimen collected from left antecubital without incident. [facility] * Martir Rowan - 05/04/2022 2:20 PM CDT UA collected per order of Bhargavi Morel PA-C on 05/04/2022 [facility] documented in this encounter Plan of Treatment Upcoming Encounters Date Type Department Care Team (Late st Contact Info) Description 10/29/2024 9:30 AM WATCH AND CLOCK REPAIR CLERK Office Visit [facility] [address] [place] [address] Bhargavi Morel, PAC [address] [place] [address] documented as of this encounter Procedures Procedure Name Priority Date/Time Associated Diagnosis Comments VITAMIN D, 25 HYDROXY TOTAL Routine 05/04/2022 2:28 PM CDT BMI 38.0-38.9,adult HEMOGLOBIN A1C W/ ESTIMATED GLUCOSE Routine 05/04/2022 2:28 PM CDT Type 2 diabetes mellitus without complication, without long-term current use of insulin (HCC) CBC WITH AUTO DIFFERENTIAL Routine 05/04/2022 2:28 PM CDT Type 2 diabetes mellitus without complication, without long-term current use of insulin (HCC) VITAMIN B12 Routine 05/04/2022 2:28 PM CDT Type 2 diabetes mellitus without complication, without long-term current use of insulin (HCC) UR MICROALBUMIN/CREATINI NE RATIO RANDOM Routine 05/04/2022 2:28 PM CDT Type 2 diabetes mellitus without complication, without long-term current use of insulin (HCC) THYROID STIMULATING HORMONE (TSH) Routine 05/04/2022 2:28 PM CDT Hypothyroidism, unspecified type MAGNESIUM (MG) Routine 05/04/2022 2:28 PM CDT Permanent atrial fibrillation (HCC) CMP (COMPREHENSIVE METABOLIC PANEL) Routine 05/04/2022 2:28 PM CDT Type 2 diabetes mellitus without complication, without long-term current use of insulin (HCC) COMPLETE BLOOD COUNT (CBC) WITH DIFF Routine 05/04/2022 2:28 PM CDT Type 2 diabetes mellitus without complication, without long-term current use of insulin (HCC) documented in this encounter Results * (ABNORMAL) CBC WITH AUTO DIFFERENTIAL (05/04/2022 2:28 PM CDT) Pathologist [facility] WBC 8.27 4.00 - 12.00 10(3)/mcL 05/04/2022 3:54 PM CDT [facility] RBC 4.56 3.80 - 5.30 10(6)/mcL 05/04/2022 3:54 PM CDT [facility] HEMOGLOBIN (HGB) 14.1 12.0 - 15.8 g/dL 05/04/2022 3:54 PM CDT [facility] HEMATOCRIT (HCT) 45.6 36.0 - 47.0 % 05/04/2022 3:54 PM CDT [facility] MCV 100.0(H) 82.0 - 96.0 fL 05/04/2022 3:54 PM CDT [facility] MCH 30.9 26.0 - 34.0 pg 05/04/2022 3:54 PM CDT [facility] MCHC 30.9(L) 31.0 - 36.0 g/dL 05/04/2022 3:54 PM CDT [facility] PLATELET COUNT 269 140 - 440 10(3)/[facility] 05/04/2022 3:54 PM CDT [facility] RDW 14.2 11.8 - 15.5 % 05/04/2022 3:54 PM CDT [facility] MPV 9.9 9.7 - 12.4 fL 05/04/2022 3:54 PM CDT [facility] NEUTROPHILS 57.6 47.0 - 73.0 % 05/04/2022 3:54 PM CDT [facility] LYMPHOCYTES 26.5 18.0 - 42.0 % 05/04/2022 3:54 PM CDT [facility] MONOCYTES 11.6 4.0 - 12.0 % 05/04/2022 3:54 PM CDT [facility] EOSINOPHILS 3.6 0.0 - 5.0 % 05/04/2022 3:54 PM CDT [facility] BASOPHILS 0.7 0.0 - 1.0 % 05/04/2022 3:54 PM CDT [facility] ABSOLUTE NEUTROPHILS 4.76 1.60 - 7.70 10(3)/[facility] 05/04/2022 3:54 PM CDT [facility] ABSOLUTE LYMPHOCYTES 2.19 1.30 - 3.20 10(3)/[facility] 05/04/2022 3:54 PM CDT [facility] ABSOLUTE MONOCYTES 0.96 0.20 - 1.00 10(3)/[facility] 05/04/2022 3:54 PM CDT [facility] ABSOLUTE EOSINOPHIL 0.30 0.00 - 0.40 10(3)/[facility] 05/04/2022 3:54 PM CDT [facility] ABSOLUTE BASOPHILS 0.06 0.00 - 0.10 10(3)/[facility] 05/04/2022 3:54 PM CDT [facility] NRBC PER 100 WBC 0 05/04/20 3:54 PM CDT [facility] Blood Venipuncture / Unknown 05/04/2022 2:28 PM CDT 05/04/2022 2:28 PM CDT us Bhargavi Morel PAC HEMATOLOGY ORDERABLES Fi nal Result Performing Organization Address [facility] Co de Phone Number [facility] [address] [place] [address] * (ABNORMAL) UR MICROALBUMIN/CREATININE RATIO RANDOM (05/04/2022 2:28 PM CDT) RAN UR MICROALBUMIN 14.83(H) <=2.00 mg/dL 05/04/2022 4:15 PM CDT [facility] CREATININE URINE 149.4 28.0 - 217.0 mg/dL 05/04/2022 4:15 PM CDT [facility] ALB/CREAT RATIO 99(H) 1 - 30 mg/g CRE 05/04/2022 4:15 PM CDT [facility] Urine Non-Phlebotomy Collection / Unknown 05/04/2022 2:28 PM CDT 05/04/2022 2:28 PM CDT us Bhargavi Morel PAC URINE ORDERABLES Final R esult Performing Organization Address [facility] de Phone Number [facility] [address] [place] [address] * MAGNESIUM (MG) (05/04/2022 2:28 PM CDT) MAGNESIUM 1.8 1.8 - 2.5 mg/dL 05/04/2022 4:23 PM CDT [facility] Blood Venipuncture / Unknown 05/04/2022 2:28 PM CDT 05/04/2022 2:28 PM CDT us Bhargavi Morel PAC CHEMISTRY ORDERABLES Fin al Result Performing Organization Address City/[facility]/ZIP Co de Phone Number [facility] [address] [place] [address] * (ABNORMAL) VITAMIN D, 25 HYDROXY TOTAL (05/04/2022 2:28 PM CDT) VITAMIN D, 25 HYDROX 23(L) >=30 ng/mL 05/04/2022 4:34 PM CDT [facility] Blood Venipuncture / Unknown 05/04/2022 2:28 PM CDT 05/04/2022 2:28 PM CDT Narrative [facility] - 05/04/2022 4:34 PM CDT Published reference ranges for Vitamin D vary depending on time and place and method of testing, and on patient's age, sex, ethnicity and levels of other measured analytes such as parathormone, calcium and phosphorus. ??The result should be evaluated in conjunction with clinical findings and suspicions. [place] [employer] and Endocrine Clinical Practice Guidelines: Status Vitamin D levels (ng/mL) Deficient <=20 At risk of inadequacy 21-29 Sufficient 30-100 Centers of Disease Control and Prevention Guidelines: Status Vitamin D levels (ng/mL) Deficient <13 At risk of inadequacy 13-19 Sufficient 20-50 Possibly harmful >50 References: [place] [employer], 2010 Dietary reference intakes for calcium and vitamin D. [place]: ??The National Academies Press. Daniela M, Gina N, Genoveva HURD, et al., Evaluation, treatment, and prevention of Vitamin D deficiency: an Endocrinology Clinical Practice Guideline. JCEM 2011 96: 7 9480-4743. Althea A, Kenroy C, Etta D, et al., Vitamin D Status: ??[place], 2000- 6, NDHS data brief, no. 59, MD Xuan: ??National Center for Health Statistics. 2010. Bhargavi Morel PAC CHEMISTRY ORDERABLES Fin al Result [facility] [address] [place] [address] * VITAMIN B12 (05/04/2022 2:28 PM CDT) VITAMIN B12 471 243 - 894 pg/mL 05/04/2022 4:34 PM CDT [facility] Blood Venipuncture / Unknown 05/04/2022 2:28 PM CDT 05/04/2022 2:28 PM CDT us Bhargavi Reedwally PAC CHEMISTRY ORDERABLES Fin al Result [facility] [address] [place] [address] * (ABNORMAL) HEMOGLOBIN A1C W/ ESTIMATED GLUCOSE (05/04/2022 2:28 PM CDT) HGB-A1C 9.1(H) 4.0 - 6.0 % 05/04/2022 4:14 PM CDT [facility] Est Average Glucose 214.5 mg/dL 05/04/2022 4:14 PM CDT [facility] Blood Venipuncture / Unknown 05/04/2022 2:28 PM CDT 05/04/2022 2:28 PM CDT Narrative [facility] - 05/04/2022 4:14 PM CDT HEMOGLOBIN A1C: DIABETIC PATIENTS: WELL-CONTROLLED: ?? 6.2 - 7.0 INTERMEDIATE WELL-CONTROLLED: ??7.0 - 9.0 POORLY-CONTROLLED: ??>9.0 us Bhargavi Reedwally PAC CHEMISTRY ORDERABLES Fin al Result [facility] [address] [place] [address] * THYROID STIMULATING HORMONE (TSH) (05/04/2022 2:28 PM CDT) TSH 1.760 0.270 - 4.200 mIU/L 05/04/2022 4:23 PM CDT [facility] Blood Venipuncture / Unknown 05/04/2022 2:28 PM CDT 05/04/2022 2:28 PM CDT us Bhargavi Morel PAC CHEMISTRY ORDERABLES Fin al Result [facility] [address] [place] [address] * (ABNORMAL) CMP (COMPREHENSIVE METABOLIC PANEL) (05/04/2022 2:28 PM CDT) SODIUM 136 136 - 144 mmol/L 05/04/2022 4:23 PM CDT [facility] POTASSIUM 4.7 3.5 - 5.1 mmol/L 05/04/2022 4:23 PM CDT [facility] CHLORIDE 101 100 - 110 mmol/L 05/04/2022 4:23 PM CDT [facility] CO2, VENOUS 25 22 - 32 mmol/L 05/04/2022 4:23 PM CDT [facility] ANION GAP 14.7 8.0 - 20.0 mmol/L 05/04/2022 4:23 PM CDT [facility] GLUCOSE 147(H) 70 - 99 mg/dL 05/04/2022 4:23 PM CDT [facility] BUN 24(H) 8 - 23 mg/dL 05/04/2022 4:23 PM CDT [facility] CREATININE, BLOOD 0.88 0.60 - 1.10 mg/dL 05/04/2022 4:23 PM CDT [facility] BUN/CREATININE RATIO 27(H) 12 - 20 ratio 05/04/2022 4:23 PM CDT [facility] TOTAL PROTEIN 7.4 6.0 - 8.3 g/dL 05/04/2022 4:23 PM CDT [facility] ALBUMIN 4.0 3.5 - 5.2 g/dL 05/04/2022 4:23 PM CDT [facility] Comment: The colormetric methods used for the determination of Albumin may lead to falsely elevated test results in patients suffering from renal failure or insufficiency due to interference with other proteins. A/G RATIO 1.2 1.0 - 2.0 05/04/2022 4:23 PM CDT [facility] CALCIUM 9.5 8.9 - 10.3 mg/dL 05/04/2022 4:23 PM CDT [facility] T BILI 0.3 <=1.2 mg/dL 05/04/2022 4:23 PM CDT [facility] SGOT (AST) 34(H) <=32 U/L 05/04/2022 4:23 PM CDT [facility] SGPT (ALT) 26 <=41 U/L 05/04/2022 4:23 PM CDT [facility] ALKALINE PHOSPHATASE 93 35 - 105 U/L 05/04/2022 4:23 PM CDT [facility] IS THE PATIENT REQUIRED TO BE FASTING? No 05/04/2022 4:23 PM CDT [facility] GFR, ESTIMATED >60 >=60 05/04/2022 4:23 PM CDT [facility] Comment: Creatinine Clearance is the preferred criteria for selecting drug dose adjustments in renally impaired patients. ??The GFR is provided as additional pertinent clinical information. GFR is reported in mL/min/1.73 sq m. Calculation based on the Chronic Kidney Disease Epidemiology Collaboration (CKD- EPI) equation refit without adjustment for race. GFR, EST. >60 >=60 022 4:23 PM CDT [facility] GFR, EST. NONAFRICAN >60 >=60 05/04/2022 4:23 PM CDT [facility] Blood Venipuncture / Unknown 05/04/2022 2:28 PM CDT 05/04/2022 2:28 PM CDT us Bhargavi Morel PAC CHEMISTRY ORDERABLES Fin al Result Performing Organization Address City/State/[facility] Co de Phone Number [facility] [address] [facility] [place] [address] documented in this encounter Visit Diagnoses Diagnosis Type 2 diabetes mellitus without complication, without long-term current use of insulin (HCC) Hypothyroidism, unspecified type BMI 38.0-38.9,adult Body Mass Index 38.0-38.9, adult Permanent atrial fibrillation (HCC) Atrial fibrillation documented in this encounter Additional Health Concerns Assessment Noted Time PHQ-9 Depression Total Score: 0 05/04/20 22 1:35 PM CDT documented as of this encounter Care Teams Technology Project Manager Relationship Specialty Start Date End Date Jovita Bermudez MD [address] [place] [address] PCP - General Family Medicine 11/30/20 07/21/23 documented as of this encounter
--- OUTSIDE RECORDS SUMMARY | 2024-08-30 18:50 | XMS_ITS | Encounter Summary ---
Author Organization [facility] [employer] [facility] Care Team Providers Care Orthotics Prosthetics Technician Name Role Phone Jovita Bermudez MD Primary Care Provider [phone] Encounter Details Date Type Department Care Team (Latest Contact Info) Description 08/10/2021 Travel Social History Tobacco Use Types Packs/Day [...] COVID-19? No / Unsure 08/10/2021 9:44 AM BALANCE WHEEL HAND FILER documented as of this encounter Plan of Treatment Upcoming Encounters Date Type Department Care Team (Late st Contact Info) Description 10/29/2024 9:30 AM BALANCE WHEEL HAND FILER Office Visit [facility] Medical [facility] - Family [facility] [address] [place] [address] Bhargavi Morel PAC [address] [place] [address] documented as of this encounter Visit Diagnoses Not on filedocumented in this encounter Care Teams Orthotics Prosthetics Technician Relationship Specialty Start Date End Date Jovita Bermudez MD [address] [place] [address] PCP - General Family Medicine 11/30/20 07/21/23 documented as of this encounter
--- OUTSIDE RECORDS SUMMARY | 2024-08-30 18:50 | XMS_ITS | Encounter Summary ---
Author Organization [facility] Address [address] [place] [address] Phone Care Team Providers Care Grinding Machine Tender Name Role Phone Jovita Bermudez MD Primary Care Provider [phone] Reason for Visit * Reason Onset Date Comments Sore Throat 06/06/2021 Urinary Incontinence 06/06/2021 Abdominal Pain 06/06/2021 Urinary Frequency 06/06/2021 Encounter Details Date Type Department Care Team (Late st Contact Info) Description 06/06/2021 Nurse Triage [facility] [address] [place] [address] Jovita Bermudez MD [address] [place] [address] Sore Throat; Urinary Incontinence; Abdominal Pain; Urinary Frequency Social History Tobacco Use Types Packs/Day Years [...] have Coronavirus / COVID-19? No / Unsure 06/06/2021 8:29 AM CDT documented as of this encounter Miscellaneous Notes * Telephone Encounter - Soila Wolf RN - 06/06/2021 9:04 AM CDT Images from the original note were not included. SITUATION: UTI/Sore throat BACKGROUND: Patient is calling due to multiple symptoms that began yesterday, possibly younger. ASSESSMENT: Symptom Description / Location: sore throat, urinary incontinence and burning and fatigue, angel luis colored urine, fatigue abdominal pain in the front and sides (she does not know if it is upper or lower), weak, denies blood in urine, dizziness/lightheadedness Pain (0-10): mild Temp: I think maybe I have sometimes I'll be a little bit cold and right now i'm sweating with a fan on me Treatment / Response: tylenol LMP / / : N/a RECOMMENDATION: See care advice and disposition for Guideline All Patient Appointments Provider Department Dept Phone 06/06/2021 4:00 PM [facility] - Family Medicine [facility] [phone] First positive answer recorded, all responses to prior questions were negative. If symptoms increase, change or if new symptoms develop, call your HCP or call back. Recommendations were based on caller information and is not a diagnosis. Verified and reviewed all triage information with caller. Travel Screening Question Response In the last month, have you been in contact with someone who was confirmed or suspected to have Coronavirus / COVID-19? No / Unsure Have you had a COVID-19 viral test in the last 14 days? No Do you have any of the following new or worsening symptoms? Weakness;Abdominal pain;Sore throat Have you traveled internationally in the last month? No Travel History Travel since 05/07/21 No documented travel since 05/07/21 COVID-19 Testing Priority for Tressa Reed Lucia: 4 Reason for Disposition ? ? Can't control passage of urine (i.e., urinary incontinence) and new onset (< 2 weeks) or worsening Protocols used: URINARY [id number] documented in this encounter Plan of Treatment Upcoming Encounters Date Type Department Care Team (Late st Contact Info) Description 10/29/2024 9:30 AM GENERAL PRODUCTION WORKER Office Visit [facility] - [place] [address] [place] [address] Bhargavi Morel, ARAM [address] [place] [address] documented as of this encounter Visit Diagnoses Not on filedocumented in this encounter Care Teams Grinding Machine Tender Relationship Specialty Start Date End Date Jovita Bermudez MD [address] [place] [address] PCP - General Family Medicine 11/30/20 07/21/23 documented as of this encounter
--- OUTSIDE RECORDS SUMMARY | 2024-08-30 18:50 | XMS_ITS | Encounter Summary ---
Author Organization [facility] Address [address] [place] [address] Phone Care Team Providers Care [employer] Name Role Phone Jovita Bermudez MD Primary Care Provider [phone] Reason for Visit * Reason Comments Medication Refill Encounter Details Date Type Department Care Team (Late st Contact Info) Description 02/14/2022 Refill [facility] - Family Medicine [facility] [address] [place] [address] Jovita Bermudez MD [address] [place] [address] Medication Refill Social History Tobacco Use Types [...] encounter Miscellaneous Notes * Telephone Encounter - La Coronel RN - 02/15/2022 8:55 AM CDT Medication failed the protocol, provider to review and approve the medication order if appropriate. Requested Prescriptions Pending Prescriptions Disp Refills Januvia 100 MG Tablet [Pharmacy Med Name: JANUVIA 100MG TABS] 90 Tablet 1 Sig: TAKE ONE TABLET BY MOUTH EVERY DAY DPP-4 Inhibitors Protocol Failed - 02/14/2022 2:14 PM Failed - HgA1C on record in the past 6 months HGB-A1C Date Value Ref Range Status 08/10/2021 7.6 (H) 4.0 - 6.0 % Final Failed - GFR on record in past 6 months GFR, EST. NONAFRICAN Date Value Ref Range Status 08/10/2021 >60 >=60 Final Passed - Visit with relevant provider in past 6 months or upcoming 90 days Recent Visits Date Type Provider Dept 08/25/21 Office [facility] Show[facility] recent visits within past 182 days and meeting all other requirements Future Appointments No visits were found meeting these conditions. Showing future appointments within next 90 days and meeting all other requirements documented in this encounter Plan of Treatment Upcoming Encounters Date Type Department Care Team (Late st Contact Info) Description 10/29/2024 9:30 AM AIR QUALITY INSTRUMENT SPECIALIST Office Visit [facility] [place] [address] [place] [address] Bhargavi Morel PAC [address] [place] [address] documented as of this encounter Visit Diagnoses Not on filedocumented in this encounter Care Teams Jack [employer] Tr[employer] Relationship Specialty Start Date End Date Jovita Bermudez MD [address] [place] [address] PCP - General Family Medicine 11/30/20 07/21/23 documented as of this encounter
--- OUTSIDE RECORDS SUMMARY | 2024-08-30 18:50 | XMS_ITS | Encounter Summary ---
Author Organization [facility] Address [address] [place] [address] Phone Care Team Providers Care Pin Ball Machine Mechanic Name Role Phone Jovita Bermudez MD Primary Care Provider [phone] Reason for Visit * Reason Comments Medication Refill Encounter Details Date Type Department Care Team (Late st Contact Info) Description 08/15/2021 Refill [facility] [address] [place] [address] Jovita Bermudez MD [address] [place] [address] Medication Refill Social History Tobacco Use Types [...] COVID-19? No / Unsure 08/10/2021 9:44 AM CARE TRANSPORT NURSE documented as of this encounter Miscellaneous Notes * Telephone Encounter - Reanna Rios RN - 08/16/2021 9:08 AM CST Medication(s) refilled and signed per [facility] Chronic Medication Refill Standing Order for Pediatricand Adult Patients. Requested Prescriptions Pending Prescriptions Disp Refills ??? Januvia 100 MG Tablet [Pharmacy Med Name: JANUVIA 100MG TABS] 90 Tablet 1 Sig: TAKE ONE TABLET BY MOUTH EVERY DAY DPP-4 Inhibitors Protocol Passed - 08/15/2021 11:18 AM Passed - Visit with relevant provider in past 6 months or upcoming 90 days Recent Visits Date Type Provider Dept 06/14/21 Office Visit Bhargavi Morel PAC [facility] 06/06/21 Office Visit Cole Garsia APRN, GAIL [facility] 05/04/21 Office Visit Jovita Bermudez MD [facility] 03/17/21 Office Visit Harry Howell MD [facility] Showing recent visits within past 182 days and meeting all other requirements Future Appointments Date Type Provider Dept 08/25/21 Appointment Jovita Bermudez MD [facility] Showing future appointments within next 90 days and meeting all other requirements Passed - HgA1C on record in the past 6 months HGB-A1C Date Value Ref Range Status 08/10/2021 7.6 (H) 4.0 - 6.0 % Final Passed - GFR on record in past 6 months GFR, EST. NONAFRICAN Date Value Ref Range Status 08/10/2021 >60 >=60 Final TRANSPORT NURSE documented in this encounter Plan of Treatment Upcoming Encounters Date Type Department Care Team (Late st Contact Info) Description 10/29/2024 9:30 AM CARE TRANSPORT NURSE Office Visit [facility] - [facility] - [place] [address] [place] [address] Bhargavi Morel, PAC [address] [place] [address] documented as of this encounter Visit Diagnoses Not on filedocumented in this encounter Care Teams Pin Ball Machine Mechanic Relationship Specialty Start Date End Date Jovita Bermudez MD [address] [place] [address] PCP - General Family Medicine 11/30/20 07/21/23 documented as of this encounter
--- OUTSIDE RECORDS SUMMARY | 2024-08-30 18:50 | XMS_ITS | Encounter Summary ---
Author Organization [facility] Address [address] [place] [address] Phone Care Team Providers Care Electric Truck Driver Name Role Phone Jovita Bermudez MD Primary Care Provider [phone] Reason for Visit * Reason Comments Medication Refill Encounter Details Date Type Department Care Team (Late st Contact Info) Description 09/20/2021 Refill [facility] [address] [place] [address] Jovita Bermudez MD [address] [place] [address] Medication Refill Social History Tobacco Use Types [...] have Coronavirus / COVID-19? No / Unsure 08/25/2021 1:10 PM NSH TEACHER documented as of this encounter Miscellaneous Notes * Telephone Encounter - Reanna Rios RN - 09/21/2021 8:32 AM CST PDMP 07/3021 Medication failed the protocol, provider to review and approve the medication order if appropriate. Requested Prescriptions Pending Prescriptions Disp Refills traMADol (ULTRAM) 50 MG Tablet [Pharmacy Med Name: TRAMADOL HCL 50MG TABS] 28 Tablet 0 Sig: TAKE 1 TABLET BY MOUTH EVERY 6 HOURS NEEDED FOR MODERATE OR SEVERE PAIN. Not Delegated - Opioid Agonists Protocol Failed - 09/21/2021 8:32 AM Failed - This refill cannot be delegated Passed - Visit with relevant provider in past 12 months or upcoming 90 days Recent Visits Date Type Provider Dept 08/25/21 Office Visit Jovita Bermudez MD [facility] 06/14/21 Office Visit Bhargavi Morel PAC [facility] [place] 06/06/21 Office Visit Cole Garsia APRN, CNP [facility] 05/04/21 Office Visit Jovita Bermudez MD [facility] [place] 03/17/21 Office Visit Harry Howell MD [facility] [place] 01/19/21 Office Visit Jovita Bermudez MD [facility] [place] 11/30/20 Office Visit [facility] Showing recent visits within past 365 days and meeting all other requirements Future Appointments Date Type Provider Dept 11/23/21 Appointment Jovita Bermudez MD [facility] Showing future appointments within next 90 days and meeting all other requirements TEACHER documented in this encounter Plan of Treatment Upcoming Encounters Date Type Department Care Team (Late st Contact Info) Description 10/29/2024 9:30 AM NSH TEACHER Office Visit [facility] - Family Medicine - [place] [address] [place] [address] Bhargavi Morel PAC [address] [place] [address] documented as of this encounter Visit Diagnoses Diagnosis Pain and swelling of right knee documented in this encounter Care Teams Electric Truck Driver Relationship Specialty Start Date End Date Jovita Bermudez MD [address] [place] [address] PCP - General Family Medicine 11/30/20 07/21/23 documented as of this encounter
--- OUTSIDE RECORDS SUMMARY | 2024-08-30 18:50 | XMS_ITS | Encounter Summary ---
Author Organization [facility] Address [address] [place] [address] Phone Care Team Providers Care Mold Stamper Name Role Phone Jovita Bermudez MD Primary Care Provider [phone] Reason for Visit * Reason Onset Date Comments F/u abnormal ECHO 07/05/2021 Encounter Details Date Type Department Care Team (Late st Contact Info) Description 07/05/2021 Telephone [facility] [address]2 [place] [address] Jovita Bermudez MD [address] [place] [address] F/u abnormal ECHO Social History Tobacco Use Types Packs/Day Years [...] have Coronavirus / COVID-19? No / Unsure 06/13/2021 1:46 PM CDT documented as of this encounter Miscellaneous Notes * Telephone Encounter - Jovita Bermudez MD - 07/06/2021 7:38 PM HOSPITAL PERSONNEL DIRECTOR Thank you for following up ITAL PERSONNEL DIRECTOR * Telephone Encounter - Sherry Knight RN - 07/06/2021 4:16 PM CST The patient was notified PCP received ECHO result ordered by Lovely Nuñez and wants to make surethe patient is seeing wastewater treatment plant attendant. The patient said yes she is seeing Dr. Bro/911 Emergency Services Dispatcher. Patient said Lovely Nuñez is PA in wastewater treatment plant attendant office. Patient said she will call Lovely to see if there are any desired orders for f/u ECHO. ITAL PERSONNEL DIRECTOR * Telephone Encounter - Shrery Knight RN - 07/05/2021 4:12 PM CST Left a message for the patient to return call. (PCP received an cardiac [facility] Lovely Nu[facility]. PCP said to make sure that patient is seeing wastewater treatment plant attendant). ITAL PERSONNEL DIRECTOR ITAL PERSONNEL DIRECTOR documented in this encounter Plan of Treatment Upcoming Encounters Date Type Department Care Team (Late st Contact Info) Description 10/29/2024 9:30 AM HOSPITAL PERSONNEL DIRECTOR Office Visit [facility] - Family Medicine [facility] [address] [place] [address] Bhargavi Morel PAC [address] [place] [address] documented as of this encounter Visit Diagnoses Not on filedocumented in this encounter Care Teams Mold Stamper Relationship Specialty Start Date End Date Jovita Bermudez MD [address] [place] [address] PCP - General Family Medicine 11/30/20 07/21/23 documented as of this encounter
--- OUTSIDE RECORDS SUMMARY | 2024-08-30 18:50 | XMS_ITS | Encounter Summary ---
Author Organization [facility] Address [address] [place] [address] Phone Care Team Providers Care Correctional Officer Lieutenant Name Role Phone Jovita Bermudez MD Primary Care Provider [phone] Reason for Visit * Reason Comments Medication Refill Encounter Details Date Type Department Care Team (Late st Contact Info) Description 08/15/2022 Refill [facility] [address]2 [place] [address] Jovita Bermudez MD [address] [place] [address] Medication Refill Social History Tobacco Use Types [...] Telephone Encounter - Reanna Rios RN - 08/15/2022 9:20 AM CST Medication(s) refilled and signed per [facility] Chronic Medication Refill Standing Order for Pediatricand Adult Patients. Requested Prescriptions Pending Prescriptions Disp Refills ??? Januvia 100 MG Tablet [Pharmacy Med Name: JANUVIA 100MG TABS] 90 Tablet 1 Sig: TAKE ONE TABLET BY MOUTH ONCE DAILY DPP-4 Inhibitors Protocol Passed - 08/15/2022 9:18 AM Passed - Visit with relevant provider in past 6 months or upcoming 90 days Recent Visits Date Type Provider Dept 05/04/22 Office Visit Bhargavi Morel PAC [facility] Showing recent visits within past 182 days and meeting all other requirements Future Appointments No visits were found meeting these conditions. Showing future appointments within next 90 days and meeting all other requirements Passed - HgA1C on record in the past 6 months HGB-A1C Date Value Ref Range Status 05/04/2022 9.1 (H) 4.0 - 6.0 % Final Passed - GFR on record in past 6 months GFR, EST. NONAFRICAN Date Value Ref Range Status 05/04/2022 >60 >=60 Final OSITE BOND WORKER documented in this encounter Plan of Treatment Upcoming Encounters Date Type Department Care Team (Late st Contact Info) Description 10/29/2024 9:30 AM COMPOSITE BOND WORKER Office Visit [facility] [address]2 [place] [address] Bhargavi Morel PAC [address] [place] [address] documented as of this encounter Visit Diagnoses Not on filedocumented in this encounter Additional Health Concerns Assessment Noted Time PHQ-9 Depression Total Score: 0 05/04/20 22 1:35 PM CDT documented as of this encounter Care Teams Correctional Officer Lieutenant Relationship Specialty Start Date End Date Jovita Bermudez MD [address] [place] [address] PCP - General Family Medicine 11/30/20 07/21/23 documented as of this encounter
--- OUTSIDE RECORDS SUMMARY | 2024-08-30 18:50 | XMS_ITS | Encounter Summary ---
Author Organization [facility] Address [address] [place] [address] Phone Care Team Providers Care Lead Developer Name Role Phone Jovita Bermudez MD Primary Care Provider [phone] Reason for Visit * Reason Comments Medication Refill Encounter Details Date Type Department Care Team (Late st Contact Info) Description 05/29/[address] [facility] [address]2 [place] [address] Jovita Bermudez MD [address] [place] [address] Medication Refill Social History Tobacco Use Types [...] Telephone Encounter - La Coronel RN - 05/29/2022 1:34 PM CDT Medication(s) [facility] Chronic Medication Refill Standing Order for Pediatricand Adult Patients. Requested Prescriptions Pending Prescriptions Disp Refills ??? metFORMIN (GLUCOPHAGE) 1000 MG Tablet [Pharmacy Med Name: METFORMIN HCL 1000MG TABS] 180 Tablet1 Sig: TAKE ONE TABLET BY MOUTH TWICE A DAY Biguanides Protocol Passed - 05/29/2022 10:18 AM Passed - Visit with relevant provider in past 6 months or upcoming 90 days Recent Visits Date Type Provider Dept 05/04/22 Office Visit [facility] Show[facility] recent visits within past 182 days [...] Ref Range Status 05/04/2022 >60 >=60 Final documented in this encounter Plan of Treatment Upcoming Encounters Date Type Department Care Team (Late st Contact Info) Description 10/29/2024 9:30 AM COMMERCIAL INSURANCE UNDERWRITER Office Visit [facility] [place] [address] [place] [address] Bhargavi Morel PAC [address] [place] [address] documented as of this encounter Visit Diagnoses Not on filedocumented in this encounter Additional Health Concerns Assessment Noted Time PHQ-9 Depression Total Score: 0 05/04/20 1:35 PM CDT documented as of this encounter Care Teams Lead Developer Relationship Specialty Start Date End Date Jovita Bermudez MD [address] [place] [address] PCP - General Family Medicine 11/30/20 07/21/23 documented as of this encounter
--- OUTSIDE RECORDS SUMMARY | 2024-08-30 18:50 | XMS_ITS | Encounter Summary ---
Author Organization [facility] Address [address] [place] [address] Phone Care Team Providers Care Welding Rod Coater Name Role Phone Jovita Bermudez MD Primary Care Provider [phone] Reason for Visit * Reason Comments Medication Refill Encounter Details Date Type Department Care Team (Late st Contact Info) Description 06/03/2021 Refill [facility] - [facility] [address]2 [place] [address] Jovita Bermudez MD [address] [place] [address] Medication Refill Social History Tobacco Use Types [...] encounter Miscellaneous Notes * Telephone Encounter - Kamilla Tineo RN - 06/03/2021 2:59 PM CDT Per [place] PDMP last fill date 05/04/21. Medication failed the protocol, provider to review and approve the medication order if appropriate. Requested Prescriptions Pending Prescriptions Disp Refills traMADol (ULTRAM) 50 MG Tablet [Pharmacy Med Name: TRAMADOL HCL 50MG TABS] 28 Tablet 0 Sig: TAKE ONE TABLET BY MOUTH EVERY 6 HOURS NEEDED FOR MODERATE OR MORE SEVERE PAIN healthfinch Not Delegated - Analgesics: Opioid Agonists Failed - 06/03/2021 2:59 PM Failed - This refill cannot be delegated Passed - Valid encounter within last 6 months Past Office Visits Recent Outpatient Visits 1 month ago Encounter for immunization [facility] Jovita Vinson MD 2 months ago Acute pain of right knee [facility] Harry Mancilla MD 4 months ago Type 2 diabetes mellitus without complication, without long-term current use of insulin (HCC) [facility] Jovita Vinson MD 6 months ago Daytime somnolence [facility] Jovita Vinson MD Upcoming Appointments Future Appointments [facility] 1 month [facility] In 2 months [facility] B[facility] MD [facility] In 4 months Flaquito Hurd MD [facility] - Pulmonology & Sleep Medicine [facility] NEGOTIATIONS DIRECTOR - Recent and Past Visits Recent Visits Date Type Provider Dept 05/04/21 Office Visit Jovita Bermudez MD [facility] 03/17/21 Office Visit Harry Howell MD [facility] 01/19/21 Office Visit Jovita Bermudez MD [facility] 11/30/20 Office Visit Jovita Bermudez MD [facility] Showing recent visits within past 460 days with a meds authorizing provider and meeting all other requirements Future Appointments Date Type Provider Dept 08/03/21 Appointment Jovita Bermudez MD [facility] Showing future appointments within next 90 days with a meds authorizing provider and meeting all other requirements documented in this encounter Plan of Treatment Upcoming Encounters Date Type Department Care Team (Late st Contact Info) Description 10/29/2024 9:30 AM DIGITAL PRINTER [facility] Visit [facility] [address] [place] [address] Bhargavi Morel PAC [address] [place] [address] documented as of this encounter Visit Diagnoses Diagnosis Pain and swelling of right knee documented in this encounter Care Teams Welding Rod Coater Relationship Specialty Start Date End Date Jovita Bermudez MD [address] [place] [address] PCP - General Family Medicine 11/30/20 07/21/23 documented as of this encounter
--- OUTSIDE RECORDS SUMMARY | 2024-08-30 18:50 | XMS_ITS | Encounter Summary ---
Author Organization [facility] Address [address] [place] [address] Phone Care Team Providers Care Talent Sourcer Name Role Phone Jovita Bermudez MD Primary Care Provider [phone] Reason for Visit * Reason Onset Date Comments Results 06/08/2021 Encounter Details Date Type Department Care Team (Late st Contact Info) Description 06/08/2021 Telephone [facility] [address] [place] [address] Jovita Bermudez MD [address] [place] [address] Results Social History Tobacco Use Types Packs/Day [...] encounter Miscellaneous Notes * Telephone Encounter - Fadi Goode RN - 06/08/2021 3:59 PM CDT Images from the original note were not included. Patient calling for results of COVID test. Informed of note: VEDA KaplanN, INTELLECTUAL PROPERTY PARALEGAL 06/08/2021 10:03 AM CDT COVID swab is negative She voiced understanding. documented in this encounter Plan of Treatment Upcoming Encounters Date Type Department Care Team (Late st Contact Info) Description 10/29/2024 9:30 AM SUPPORT MERCHANDISER Office Visit [facility] #2 [place] [address] Bhargavi Morel, ARAM [address] [place] [address] documented as of this encounter Visit Diagnoses Not on filedocumented in this encounter Additional Health Concerns Infection Onset Date Last Indicated Resolved Time COVID - 19 Comment:Vaccinated; nondetected x2; acute pyelonephritis 06/06/2021 06/09/2021 06/10/2021 6:46 AM CDT documented as of this encounter Care Teams Talent Sourcer Relationship Specialty Start Date End Date Jovita Bermudez MD [address] [place] [address] PCP - General Family Medicine 11/30/20 07/21/23 documented as of this encounter
--- OUTSIDE RECORDS SUMMARY | 2024-08-30 18:50 | XMS_ITS | Encounter Summary ---
Author Organization [facility] Address [address] [place] [address] Phone Care Team Providers Care Kiln Hand Name Role Phone Jovita Bermudez MD Primary Care Provider [phone] Reason for Visit * Reason Comments Medication Refill Encounter Details Date Type Department Care Team (Late st Contact Info) Description 08/08/2022 Refill [facility] - Family Medicine [facility] #2 [place] [address] Jovita Bermudez MD [address] [place] [address] Medication Refill Social History Tobacco Use Types [...] Telephone Encounter - Reanna Rios RN - 08/08/2022 3:19 PM CST PDMP 06/20/22 Medication failed the protocol, provider to review and approve the medication order if appropriate. Requested Prescriptions Pending Prescriptions Disp Refills traMADol (ULTRAM) 50 MG Tablet [Pharmacy Med Name: TRAMADOL HCL 50MG TABS] 28 Tablet 0 Sig: TAKE ONE TABLET BY MOUTH EVERY 6 HOURS NEEDED FOR MODERATE OR MORE SEVERE PAIN Not Delegated - Opioid Agonists Protocol Failed - 08/08/2022 11:05 AM Failed - This refill cannot be delegated Passed - Visit with relevant provider in past 12 months or upcoming 90 days Recent Visits Date Type Provider Dept 05/04/22 Office Visit Bhargavi Morel PAC [facility] 08/25/21 Office Visit Jovita Bermudez MD [facility] Showing recent visits within past 365 days and meeting all other requirements Future Appointments No visits were found meeting these conditions. Showing future appointments within next 90 days and meeting all other requirements RATORY COURIER documented in this encounter Plan of Treatment Upcoming Encounters Date Type Department Care Team (Late st Contact Info) Description 10/29/2024 9:30 AM LABORATORY COURIER Office Visit [facility] - Family Medicine [facility] [address] [place] [address] Bhargavi Morel PAC [address] [place] [address] documented as of this encounter Visit Diagnoses Diagnosis Pain and swelling of right knee documented in this encounter Additional Health Concerns Assessment Noted Time PHQ-9 Depression Total Score: 0 05/04/20 22 1:35 PM CDT documented as of this encounter Care Teams Kiln Hand Relationship Specialty Start Date End Date Jovita Bermudez MD [address] [place] [address] PCP - General Family Medicine 11/30/20 07/21/23 documented as of this encounter
--- OUTSIDE RECORDS SUMMARY | 2024-08-30 18:50 | XMS_ITS | Encounter Summary ---
Author Organization [facility] [email or web address] [facility] Care Team Providers Care Belt Line Feeder Name Role Phone Jovita Bermudez MD Primary Care Provider [phone] Encounter Details Date Type Department Care Team (Latest Contact Info) Description 11/09/2021 Travel Social History Tobacco Use Types Packs/Day [...] suspected to have Coronavirus/COVID-19? No / Unsure 11/09/2021 10:50 AM CDT documented as of this encounter Plan of Treatment Upcoming Encounters Date Type Department Care Team (Late st Contact Info) Description 10/29/2024 9:30 AM COMMUNITY SERVICE COORDINATOR Office Visit [facility] Medical Group - Family Medicine [facility] [address]2 [place] [address] Bhargavi Morel, PAC [address] [place] [address] documented as of this encounter Visit Diagnoses Not on filedocumented in this encounter Care Teams Belt Line Feeder Relationship Specialty Start Date End Date Jovita Bermudez MD [address] [place] [address] PCP - General Family Medicine 11/30/20 07/21/23 documented as of this encounter
--- OUTSIDE RECORDS SUMMARY | 2024-08-30 18:50 | XMS_ITS | Encounter Summary ---
Author Organization [facility] Address [address] [place] [address] Phone Care Team Providers Care Sheepskin Pickler Name Role Phone Jovita Bermudez MD Primary Care Provider [phone] Reason for Visit * Reason Onset Date Comments Transition of Care 06/13/2021 Encounter Details Date Type Department Care Team ([facility] Contact Info) Description 06/13/2021 Post Discharge Follow-up [facility] [address] [place] [address] [place] [address] Jovita Bermudez MD [address] [place] [address] Social History Tobacco Use Types Packs/Day Years [...] have Coronavirus / COVID-19? No / Unsure 06/09/2021 1:24 PM CDT documented as of this encounter Plan of Treatment Upcoming Encounters Date Type Department Care Team ([facility] Contact Info) Description 10/29/2024 9:30 AM COW BUYER [facility] Visit [facility] - [place] [address] [place] [address] Bhargavi Morel, ARAM [address] [place] [address] documented as of this encounter Visit Diagnoses Not on filedocumented in this encounter Care Teams Sheepskin Pickler Relationship Specialty Start Date End Date Jovita Bermudez MD [address] [place] [address] PCP - General Family Medicine 11/30/20 07/21/23 documented as of this encounter
--- OUTSIDE RECORDS SUMMARY | 2024-08-30 18:50 | XMS_ITS | Encounter Summary ---
Author Organization [facility] Address [address] [place] [address] Phone Care Team Providers Care Exotic Dancer Name Role Phone Jovita Bermudez MD Primary Care Provider [phone] Reason for Visit * Reason Onset Date Comments Results 05/05/2022 Encounter Details Date Type Department Care Team (Late st Contact Info) Description 05/05/2022 Telephone [facility] [address] [place] [address] Jovita Bermudez MD [address] [place] [address] Results Social History Tobacco Use Types Packs/Day [...] Telephone Encounter - Bhargavi Morel PAC - 05/05/2022 11:13 AM CDT Should schedule a follow up with pcp in 3 months * Telephone Encounter - Radha Yeboah RN - 05/05/2022 11:08 AM CDT Spoke with patient to inform. She does not want to do insulin for now and will work on diet. Said that she will discuss at her next appt. * Telephone Encounter - Radha Yeboah RN - 05/05/2022 11:07 AM CDT ----- Message from ARAM James sent at 05/05/2022 8:30 AM CDT ----- Vitamin d little low suggest otc supplement 2000 units daily Diabetes not controlled, make sure taking medications routinely Work on diet changes Consider adding low dose long acting insulin If agreeable to insulin I can send this in Thyroid in range documented in this encounter Plan of Treatment Upcoming Encounters Date Type Department Care Team (Late st Contact Info) Description 10/29/2024 9:30 AM SECURITIES TRADER Office Visit [facility] - [facility] [address] [place] [address] Bhargavi Morel PAC [address] [place] [address] documented as of this encounter Visit Diagnoses Not on filedocumented in this encounter Additional Health Concerns Assessment Noted Time PHQ-9 Depression Total Score: 0 05/04/20 22 1:35 PM CDT documented as of this encounter Care Teams Exotic Dancer Relationship Specialty Start Date End Date Jovita Bermudez MD [address] [place] [address] PCP - General Family Medicine 11/30/20 07/21/23 documented as of this encounter
--- OUTSIDE RECORDS SUMMARY | 2024-08-30 18:50 | XMS_ITS | Encounter Summary ---
Author Organization [facility] Address [address] [place] [address] Phone Care Team Providers Care Diesel Motor Mechanic Name Role Phone Jovita Bermudez MD Primary Care Provider [phone] Reason for Visit * Reason Comments Medication Refill Encounter Details Date Type Department Care Team (Late st Contact Info) Description 05/25/2021 Refill [facility] - [facility] [place] [address] [place] [address] Jovita Bermudez MD [address] [place] [address] Medication Refill Social History Tobacco Use Types [...] have Coronavirus / COVID-19? No / Unsure 05/04/2021 1:03 PM CDT documented as of this encounter Miscellaneous Notes * Telephone Encounter - Reanna Rios RN - 05/25/2021 1:56 PM CDT Medication failed the protocol, provider to review and approve the medication order if appropriate. Requested Prescriptions Pending Prescriptions Disp Refills PARoxetine (PAXIL) 40 MG Tablet [Pharmacy Med Name: PAROXETINE HCL 40MG TABS] 90 Tablet 1 Sig: TAKE ONE TABLET BY MOUTH EVERY DAY SSRI (6 Month Refill Only) Protocol Failed - 05/25/2021 11:01 AM Failed - Patient has established therapy with SSRI for at least 6 months Passed - Visit with relevant provider in past 6 months or upcoming 90 days Recent Visits Date Type Provider Dept 05/04/21 Office Visit Jovita Bermudez MD [facility] [...] and meeting all other requirements Passed - Has an encounter in the past 6 months with a depression, anxiety, adjustment disorder, OCD, or PTSD visit diagnosis documented in this encounter Plan of Treatment Upcoming Encounters Date Type Department Care Team (Late st Contact Info) Description 10/29/2024 9:30 AM BOW MAKER PRODUCTION Office Visit [facility] - Family Medicine - [place] [address] [place] [address] Bhargavi Morel PAC [address] [place] [address] documented as of this encounter Visit Diagnoses Not on filedocumented in this encounter Care Teams Diesel Motor Mechanic Relationship Specialty Start Date End Date Jovita Bermudez MD [address] [place] [address] PCP - General Family Medicine 11/30/20 07/21/23 documented as of this encounter
--- OUTSIDE RECORDS SUMMARY | 2024-08-30 18:50 | XMS_ITS | Encounter Summary ---
Author Organization [facility] [employer] [facility] Care Team Providers Care Newspaper Reporter Name Role Phone Jovita Bermudez MD Primary Care Provider [phone] Encounter Details Date Type Department Care Team (Latest Contact Info) Description 05/04/2021 Travel Social History Tobacco Use Types Packs/Day [...] st Contact Info) Description 10/29/2024 9:30 AM SEAL DELIVERY VEHICLE TEAM TECHNICIAN Office Visit [facility] - Family Medicine [facility] [address] [place] [address] Bhargavi Morel, ARAM [address] [place] [address] documented as of this encounter Visit Diagnoses Not on filedocumented in this encounter Care Teams Newspaper Reporter Relationship Specialty Start Date End Date Jovita Bermudez MD [address] [place] [address] PCP - General Family Medicine 11/30/20 07/21/23 documented as of this encounter
--- OUTSIDE RECORDS SUMMARY | 2024-08-30 18:50 | XMS_ITS | Encounter Summary ---
Author Organization [facility] Address [address] [place] [address] Phone Care Team Providers Care Lan Engineer Name Role Phone Jovita Bermudez MD Primary Care Provider [phone] Reason for Visit * Reason Comments Medication Refill Encounter Details Date Type Department Care Team (Late st Contact Info) Description 12/14/2021 Refill [facility] - Family Medicine [facility] [address] [place] [address] Jovita Bermudez MD [address] [place] [address] Medication Refill Social History Tobacco Use Types [...] Telephone Encounter - Reanna Rios RN - 12/14/2021 1:46 PM CDT PDMP 09/21/21 Medication failed the protocol, provider to review and approve the medication order if appropriate. Requested Prescriptions Pending Prescriptions Disp Refills traMADol (ULTRAM) 50 MG Tablet [Pharmacy Med Name: TRAMADOL HCL 50MG TABS] 28 Tablet 0 Sig: TAKE ONE TABLET BY MOUTH EVERY 6 HOURS NEEDED FOR MODERATE OR SEVERE PAIN Not Delegated - Opioid Agonists Protocol Failed - 12/14/2021 10:11 AM Failed - This refill cannot be delegated Passed - Visit with relevant provider in past 12 months or upcoming 90 days Recent Visits Date Type Provider Dept 08/25/21 Office Visit Joviat Bermudez MD [facility] 06/14/21 Office Visit Bhargavi Morel PAC [facility] 06/06/21 Office Visit Cole Garsia APRN, GA[facility] 05/04/21 Office Visit Jovita Bermudez MD [facility] [place] 03/17/21 Office Visit Harry Howell MD [facility] [place] 01/19/21 Office Visit Jovita Bermudez MD [facility] Showing recent visits within past 365 days and meeting all other requirements Future Appointments No visits were found meeting these conditions. Showing future appointments within next 90 days and meeting all other requirements documented in this encounter Plan of Treatment Upcoming Encounters Date Type Department Care Team (Late st Contact Info) Description 10/29/2024 9:30 AM SCHOOL EXAMINER Office Visit [facility] - [facility] [address] [place] [address] Bhargavi Morel, PAC [address] [place] [address] documented as of this encounter Visit Diagnoses Diagnosis Pain and swelling of right knee documented in this encounter Care Teams Lan Engineer Relationship Specialty Start Date End Date Jovita Bermudez MD [address] [place] [address] PCP - General Family Medicine 11/30/20 07/21/23 documented as of this encounter
--- OUTSIDE RECORDS SUMMARY | 2024-08-30 18:50 | XMS_ITS | Encounter Summary ---
Author Organization [facility] Address [address] [place] [address] Phone Care Team Providers Care Veneer Drier Tailer Name Role Phone Jovita Bermudez MD Primary Care Provider [phone] Reason for Visit * Reason Comments Medication Refill Encounter Details Date Type Department Care Team (Late st Contact Info) Description 06/13/2021 Refill [facility] - Family Medicine [facility] [address] [place] [address] Bhargavi Morel PAC [address] [place] [address] Medication Refill Social History Tobacco Use Types [...] Miscellaneous Notes * Telephone Encounter - Emeli Nicholson RN - 06/14/2021 11:38 AM CDT Medication(s) refilled and signed per [facility] Chronic Medication Refill Standing Order for Pediatricand Adult Patients. Requested Prescriptions Pending Prescriptions Disp Refills ??? Jardiance 25 MG Tablet [Pharmacy Med Name: JARDIANCE 25MG TABS] 30 Tablet 2 Sig: TAKE ONE TABLET BY MOUTH EVERY DAY SGLT2 Inhibitors Protocol Passed - 06/13/2021 6:23 PM Passed - Visit with relevant provider in past 6 months or upcoming 90 days Recent Visits Date Type Provider Dept 06/06/21 Office Visit Cole Garsia APN, GAIL [facility] 05/04/21 Office Visit Jovita Bermudez MD [facility] 03/17/21 Office Visit Harry Howell MD [facility] 01/19/21 Office Visit Jovita Bermudez MD [facility] Showing recent visits within past 182 days and meeting all other requirements Today's Visits Date Type Provider Dept 06/14/21 Appointment Bhargavi Morel PAC [facility] Showing today's visits and meeting all other requirements Future Appointments Date Type Provider Dept 08/03/21 Appointment Jovita Bermudez MD [facility] Showing future appointments within next 90 days and meeting all other requirements Passed - HgA1C on record in past 6 months HGB-A1C Date Value Ref Range Status 06/09/2021 7.1 (H) 4.0 - 6.0 % Final Passed - GFR greater than or equal to 30 in past 6 months GFR, EST. NONAFRICAN Date Value Ref Range Status 06/10/2021 >60 >=60 Final documented in this encounter Plan of Treatment Upcoming Encounters Date Type Department Care Team (Late st Contact Info) Description 10/29/2024 9:30 AM HADOOP CONSULTANT Office Visit [facility] - Family Medicine [facility] [address] [place] [address] Bhargavi Morel PAC [address] [place] [address] documented as of this encounter Visit Diagnoses Not on filedocumented in this encounter Care Teams Veneer Drier Tailer Relationship Specialty Start Date End Date Jovita Bermudez MD [address] [place] [address] PCP - General Family Medicine 11/30/20 07/21/23 documented as of this encounter
--- OUTSIDE RECORDS SUMMARY | 2024-08-30 18:50 | XMS_ITS | Encounter Summary ---
Author Organization [facility] Address [address] [place] [address] Phone Care Team Providers Care Plumber Maintenance Name Role Phone Jovita Bermudez MD Primary Care Provider [phone] Bhargavi Morel Primary Care Provider + Flaquito Hurd MD Unavailable Wes Petty MD Unavailable Reason for Visit * Reason Comments Medication Refill Encounter Details Date Type Department Care Team (Late st Contact Info) Description 07/13/2021 Refill [facility] Medical Group - Family Medicine [facility] #[address] [place] [address] Bhargavi Morel PAC [address] [place] [address] Medication Refill Social History Tobacco Use Types [...] Telephone Encounter - Reanna Rios RN - 07/14/2021 8:45 AM CST Jardiance 25 MG Tablet 30 Tablet 2 06/14/2021 Sig: TAKE ONE TABLET BY MOUTH EVERY DAY Sent to pharmacy as: Jardiance 25 MG Oral Tablet (empagliflozin) Class: E Prescribe E-Prescribing Status: Receipt confirmed by pharmacy (06/14/2021 11:38 AM CDT) Order Questions ?? Jardiance 25 MG Tablet [[id number]] 1505 Status: Active Mode: Ordering in Standing Orders mode Communicated by: Emeli Nicholson RN Ordering user: Emeli Nicholson RN 06/14/21 1135 Ordering provider: Jovita Bermudez MD Authorized by: Jovita Bermudez MD Frequency: ??06/14/21 - Until Discontinued Released by: Emeli Nicholson RN 06/14/21 1137 Pharmacy [facility] [place] [place] - [address] K DRIVER documented in this encounter Plan of Treatment Upcoming Encounters Date Type Department Care Team (Late st Contact Info) Description 10/29/2024 9:30 AM STOCK DRIVER Office Visit [facility] Medical Group - [facility] #[address] [place] [address] Bhargavi Morel PAC [address] [place] [address] documented as of this encounter Visit Diagnoses Not on filedocumented in this encounter Care Teams Plumber Maintenance Relationship Specialty Start Date End Date Jovita Bermudez MD [address] [place] [address] PCP - General Family Medicine 11/30/20 07/21/23 Bhargavi Morel PAC [address] [place] [address] PCP - General Physician Leasing Property Manager 07/22/23 Flaquito Hurd MD [address] [place] [address] Consulting Physician Pulmonary Disease 11/09/22 Wes Petty MD [address] [address] Consulting Physician Urology 01/18/24 documented as of this encounter
--- OUTSIDE RECORDS SUMMARY | 2024-08-30 18:50 | XMS_ITS | Encounter Summary ---
Author Organization [facility] Address [address] [place] [address] Phone Care Team Providers Care Chicken Catcher Name Role Phone Jovita Bermudez MD Primary Care Provider [phone] Reason for Visit * Reason Comments Medication Refill Encounter Details Date Type Department Care Team (Late st Contact Info) Description 06/20/2022 Refill [facility] Family [facility] [address]2 [place] [address] Jovita Bermudez MD [address] [place] [address] Medication Refill Social History Tobacco Use Types [...] Encounter - Irena Gross RN - 06/20/2022 11:04 AM CDT PDMP 05/03/2022 #28 Medication failed the protocol, provider to review and approve the medication order if appropriate. Requested Prescriptions Pending Prescriptions Disp Refills traMADol (ULTRAM) 50 MG Tablet [Pharmacy Med Name: TRAMADOL HCL 50MG TABS] 28 Tablet 0 Sig: TAKE 1 TABLET BY MOUTH EVERY 6 HOURS NEEDED FOR MODERATE OR MORE SEVERE PAIN Not Delegated - Opioid Agonists Protocol Failed - 06/20/2022 9:43 AM Failed - This refill cannot be delegated Passed - Visit with relevant provider in past 12 months or upcoming 90 days Recent Visits Date Type Provider Dept 05/04/22 Office Visit Bhargavi Morel PAC [facility] [place] 08/25/21 Office Visit Jovita Bermudez MD [facility] Showing recent visits within past 365 days and meeting all other requirements Future Appointments No visits were found meeting these conditions. Showing future appointments within next 90 days and meeting all other requirements documented in this encounter Plan of Treatment Upcoming Encounters Date Type Department Care Team (Late st Contact Info) Description 10/29/2024 9:30 AM GOLF SHOE SPIKE ASSEMBLER Office Visit [facility] - Family [facility] [address] [place] [address] Bhargavi Morel PAC [address] [place] [address] documented as of this encounter Visit Diagnoses Diagnosis Pain and swelling of right knee documented in this encounter Additional Health Concerns Assessment Noted Time PHQ-9 Depression Total Score: 0 05/04/20 22 1:35 PM CDT documented as of this encounter Care Teams Chicken Catcher Relationship Specialty Start Date End Date Jovita Bermudez MD [address] [place] [address] PCP - General Family Medicine 11/30/20 07/21/23 documented as of this encounter
--- OUTSIDE RECORDS SUMMARY | 2024-08-30 18:50 | XMS_ITS | Encounter Summary ---
Author Organization [facility] Address [address] [place] [address] Phone Care Team Providers Care Licensed Mental Health Counselor Name Role Phone Jovita Bermudez MD Primary Care Provider [phone] Reason for Visit * Reason Comments Urinary Problem Urinary frequenct to two days. Loss os appetite and pain when coughing. Headache. Sore Throat light sore throat Chills Cold chills Encounter Details Date Type Department Care Team (Late st Contact Info) Description 06/06/2021 4:00 PM CDT Office Visit [facility] - Family Medicine [facility] [address] [place] [id number] Cole Garsia, EMAIL OPERATIONS MANAGER, MEDICAL TRANSCRIBER [address] [address] Acute UTI (Primary Dx); Sore throat; Urinary symptom or sign Discharge Disposition: Discharged to home or Selfcare [...] Sign Reading Time Taken Comments Blood Pressure 104/62 06/06/2021 4:00 PM CDT Pulse 83 06/06/2021 4:00 PM CDT Temperature 35.3 ??C (95.6 ??F) 06/06/2021 4 :00 PM CDT Patient sweating Respiratory Rate 16 06/06/2021 4:00 PM CDT Oxygen Saturation 96% 06/06/2021 4:0 0 PM CDT Inhaled Oxygen Concentration - - Weight 98.7 kg (217 lb 11.2 oz) 06/06/2021 4:00 PM CDT Height 165.1 cm (5' 5 ) 06/06/2021 4:00 PM CDT Body Mass Index 36.23 06/06/2021 4:00 PM CDT documented in this encounter Progress Notes * Emilee Medrano - 06/06/2021 4:00 PM CDT Tressa Myers, 66 y.o., female is here for Urinary Problem (Urinary frequenct to two days. Loss os appetite and pain when coughing. Headache.), Sore Throat (light sore throat), and Chills (Cold chills) Medication Refills: Patient reports/denies need for medication refills. Orders Pended: no Requested Prescriptions No prescriptions requested or ordered in this encounter Home Medications Medication Sig Start Date End Date Taking? Authorizing Provider Ascorbic Acid 500 MG Chewable Tablet Take 500 mg by mouth. Yes Homero Pugh MD aspirin EC 81 MG Tablet Delayed Response Take 81 mg by mouth. Yes Homero Pugh MD Blood Glucose Monitoring Suppl Device glDiagnosis: Diabetes type 2 Blood testing frequency: once a day 02/23/21 Yes Jovita Bermudez MD celecoxib (CeleBREX) 200 MG Capsule TAKE ONE CAPSULE BY MOUTH EVERY DAY Patient not taking: Reported on 05/04/2021 04/18/21 Jovita Bermudez MD clobetasol (TEMOVATE) 0.05 % Gel APPLY TO NEW LESIONS ON ARMS COVER WITH TAPE THEN WASH OFF IN THE MORNING. REPEAT PROCESS UNTIL LESIONS ARE FLAT THEN USE TWICE A WEEK MA 11/24/20 Yes Homero Pugh MD furosemide (LASIX) 40 MG Tablet Take 0.5 Tablets by mouth daily. 05/04/21 Yes Jovita Bermudez MD gabapentin (NEURONTIN) 600 MG Tablet Take 1 Tablet by mouth daily. 04/04/21 Yes Flaquito Hurd MD Glucose Blood Strip Diagnosis: Diabetes type 2 Blood testing frequency: once a day 02/23/21 Yes Jovita Bermudez MD Jardiance 25 MG Tablet TAKE ONE TABLET BY MOUTH EVERY DAY 02/25/21 Yes Bhargavi Morel PAC levothyroxine (SYNTHROID) 75 MCG Tablet Take 1 Tablet by mouth daily. 01/19/21 Yes Jovita Bermudez MD losartan (COZAAR) 50 MG Tablet Take 1 Tablet by mouth daily. 01/19/21 Yes Jovita Bermudez MD metFORMIN (GLUCOPHAGE) 1000 MG Tablet Take 1 Tablet by mouth 2 times daily. 01/19/21 Yes Jovita Bermudez MD metoprolol Succinate (TOPROL-XL) 100 MG TABLET SR 24 HR Take 2 Tablets by mouth daily. 05/04/21 Yes Jovita Bermudez MD mupirocin (BACTROBAN) 2 % Ointment APPLY TO OPEN SORES ON ARMS THREE TIMES DAILY FOR 1 WEEK 11/23/20Yes Homero Pugh MD PARoxetine (PAXIL) 40 MG Tablet TAKE ONE TABLET BY MOUTH EVERY DAY 05/25/21 Yes Jovita Bermudez MD simvastatin (ZOCOR) 40 MG Tablet Take 1 tablet by mouth once daily 03/09/21 Yes Jovita Bermudez MD SITagliptin (JANUVIA) 100 MG Tablet Take 1 Tablet by mouth daily. 01/19/21 Yes Jovita Bermudez MD traMADol (ULTRAM) 50 MG Tablet TAKE ONE TABLET BY MOUTH EVERY 6 HOURS NEEDED FOR MODERATE OR MORE SEVERE PAIN 06/06/21 Yes Jovita Bermudez MD warfarin (COUMADIN) 2 MG Tablet Take [...] times per week Smoking Cessation Counseling Given: yes Health Care Maintenance: Health Maintenance Due Topic Date Due ??? Dilated Eye Exam Never done ??? DEXA Bone Density Never done ??? Mammogram Never done ??? Zoster Immunization (1 of 2) Never done ??? Colorectal Cancer Screening Never done ??? DTaP/Tdap/Td Immunization (2 - Td or Tdap) 04/03/2016 Orders Pended: no The following BPA's have been addressed with the patient today: TDAP, Colonoscopy and Mammogram * Cole Garsia APN, MEDICAL TRANSCRIBER - 06/06/2021 4:00 PM CDT Subjective: CC: Sore throat, malaise, urinary frequency Tressa Myers is a 66-year-old female who presents to the office today for complaint ofsore throat, malaise, and urinary frequency. All this started 2 days ago. Also having chills, subjective fever, abdominal pain, and anorexia, nausea, increased shortness of breath. Denies fever, anosmia, or dysgeusia. No other acute complaints. The history is provided by the patient. No foreign languages department chair was used. Urinary Problem Associated symptoms include abdominal pain, frequency, nausea and a sore throat. Pertinent negatives include no back pain, chills, constipation, diarrhea, dysuria, fever, flank pain, headaches, hematuria, rash, urgency or vomiting. Sore Throat Associated symptoms include abdominal pain and shortness of breath. Pertinent negatives include no congestion, coughing, diarrhea, ear discharge, ear pain, headaches, trouble swallowing or vomiting. Chills Associated symptoms include abdominal pain, diaphoresis, fatigue, nausea and a sore throat. Pertinent negatives include no arthralgias, chest pain, chills, congestion, coughing, fever, headaches, myalgias, numbness, rash or vomiting. Review of Systems Constitutional: Positive for activity change, diaphoresis and fatigue. Negative for chills and fever. HENT: Positive for sore throat. Negative for congestion, ear discharge, ear pain, postnasal drip, sinus pressure, sinus pain and trouble swallowing. Eyes: Negative for photophobia, pain and discharge. Respiratory: Positive for shortness of breath. Negative for cough, chest tightness and wheezing. Cardiovascular: Negative for chest pain and palpitations. Gastrointestinal: Positive for abdominal pain and nausea. Negative for constipation, diarrhea and vomiting. Genitourinary: Positive for frequency. Negative for dysuria, flank pain, hematuria and urgency. Musculoskeletal: Negative for arthralgias, back pain and myalgias. Skin: Negative for rash and wound. Neurological: Negative for dizziness, seizures, syncope, numbness and headaches. Psychiatric/Behavioral: Negative for suicidal ideas. Allergies Allergies Allergen Reactions ??? Cefazolin Rash and Shortness of Breath ??? Lisinopril Other (see Comments) Medications Current Outpatient Medications: ??? Ascorbic Acid 500 MG Chewable Tablet, Take 500 mg by mouth., Disp: , Rfl: ??? aspirin EC 81 MG Tablet Delayed Response, Take 81 mg by mouth., Disp: , Rfl: ??? Blood Glucose Monitoring Suppl Device, glDiagnosis: Diabetes type 2 Blood testing frequency: once a day, Disp: 1 Each, Rfl: 0 ??? celecoxib (CeleBREX) 200 MG Capsule, TAKE ONE CAPSULE BY MOUTH EVERY DAY (Patient not taking: Reported on 05/04/2021), Disp: 30 Capsule, Rfl: 0 ??? clobetasol (TEMOVATE) 0.05 % Gel, APPLY TO NEW LESIONS ON ARMS COVER WITH TAPE THEN WASH OFF INTHE MORNING. REPEAT PROCESS UNTIL LESIONS ARE FLAT THEN USE TWICE A WEEK MA, Disp: , Rfl: ??? furosemide (LASIX) 40 MG Tablet, Take 0.5 Tablets by mouth daily., Disp: 90 Tablet, Rfl: 1 ??? gabapentin (NEURONTIN) 600 MG Tablet, Take 1 Tablet by mouth daily., Disp: 270 Tablet, Rfl: 5 ??? Glucose Blood Strip, Diagnosis: Diabetes type 2 Blood testing frequency: once a day, Disp: 100 Strip, Rfl: 3 ??? Jardiance 25 MG Tablet, TAKE ONE TABLET BY MOUTH EVERY DAY, Disp: 30 Tablet, Rfl: 2 ??? levothyroxine (SYNTHROID) 75 MCG Tablet, Take 1 Tablet by mouth daily., Disp: 90 Tablet, Rfl: 1 ??? losartan (COZAAR) 50 MG Tablet, Take 1 Tablet by mouth daily., Disp: 90 Tablet, Rfl: 1 ??? metFORMIN (GLUCOPHAGE) 1000 MG Tablet, Take 1 Tablet by mouth 2 times daily., Disp: 180 Tablet,Rfl: 1 ??? metoprolol Succinate (TOPROL-XL) 100 MG TABLET SR 24 HR, Take 2 Tablets by mouth daily., Disp: 135 Tablet, Rfl: 1 ??? mupirocin (BACTROBAN) 2 % Ointment, APPLY TO OPEN SORES ON ARMS THREE TIMES DAILY FOR 1 WEEK, Disp: , Rfl: ??? nitrofurantoin, macrocrystal-monohydrate, (MACROBID) 100 MG Capsule, Take 1 Capsule by mouth 2 times daily for 7 days., Disp: 14 Capsule, Rfl: 0 ??? PARoxetine (PAXIL) 40 MG Tablet, TAKE ONE TABLET BY MOUTH EVERY DAY, Disp: 90 Tablet, Rfl: 1 ??? simvastatin (ZOCOR) 40 MG Tablet, Take 1 tablet by mouth once daily, Disp: 90 Tablet, Rfl: 1 ??? SITagliptin (JANUVIA) 100 MG Tablet, Take 1 Tablet by mouth daily., Disp: 90 Tablet, Rfl: 1 ??? traMADol (ULTRAM) 50 MG Tablet, TAKE ONE TABLET BY MOUTH EVERY 6 HOURS NEEDED FOR MODERATE OR MORE SEVERE PAIN, Disp: 28 Tablet, Rfl: 0 ??? warfarin (COUMADIN) 2 MG Tablet, Take 1.5 Tablets by mouth., Disp: 90 Tablet, Rfl: Past Medical History Past Medical History Positives Diagnosis Date ??? Atrial fibrillation (HCC) ??? Congestive heart failure (CHF) (HCC) ??? Diabetes (HCC) ??? Hypertension ??? Thyroid activity decreased Past Surgical History Past Surgical History: Procedure Laterality Date ??? HC INJ CARDIAC CATH VENOUS BYPASS GRAFT,1+ ??? TUBAL LIGATION Family History Family History Problem Relation Age of Onset ??? Congestive Heart Failure Mother ??? Hypertension Mother ??? Cancer Father Social History Social History Tobacco Use ??? Smoking status: Former Smoker Packs/day: 2.00 Years: 35.00 Pack years: 70.00 Types: Cigarettes ??? Smokeless tobacco: Never Used Substance Use Topics ??? Alcohol use: Not Currently ??? Drug use: Yes Types: Marijuana Comment: a few times per week Objective: Physical Exam Vitals and nursing note reviewed. Constitutional: General: She is not in acute distress. Appearance: She is well-developed. She is obese. She is diaphoretic. HENT: Head: Normocephalic and atraumatic. Right Ear: External ear normal. Left Ear: External ear normal. Nose: Nose normal. Mouth/Throat: Pharynx: Posterior oropharyngeal erythema present. Eyes: General: Right eye: No discharge. Left [...] There is no abdominal tenderness. Musculoskeletal: General: No deformity. Normal range of motion. Cervical back: Normal range of motion and neck supple. Lymphadenopathy: Cervical: No cervical adenopathy. Skin: General: Skin is warm. Coloration: Skin is not pale. Findings: No rash. Neurological: Mental Status: She is alert and oriented to person, place, and time. Psychiatric: Behavior: Behavior normal. Thought Content: Thought content normal. Judgment: Judgment normal. Vitals: 06/06/21 1600 BP: 104/62 BP Location: Right Arm BP Position: Sitting BP Cuff Size: Regular Pulse: 83 Resp: 16 Temp: (!) 95.6 ??F (35.3 ??C) TempSrc: Temporal SpO2: 96% Weight: 217 lb 11.2 oz (98.7 kg) Height: 5' 5 (1.651 m) Assessment and Plan See Diagnoses, Orders, Follow-up, and Instructions 1. Acute UTI - nitrofurantoin, macrocrystal-monohydrate, (MACROBID) 100 MG Capsule; Take 1 Capsule by mouth 2 times daily for 7 days. Dispense: 14 Capsule; Refill: 0 2. Sore throat - SARS-COV-2 BY MOLECULAR; Future 3. Urinary symptom or sign - POCT UA AUTOMATED W/O MICRO Point urinalysis positive. Will start on Macrobid since she is taking warfarin. Check COVID swab. Follow-up in office in 3 days. I discussed all new medications and potential side effects or risks associated with them. Patient is to contact our office with any concerns. Patient instructions and educational materials were given to the patient. Patient (or patient telemarketing representative) demonstrates verbal understanding of instructions given. [...] referring physician. Documentation for this visit on 06/06/21 was completed using a template. I have seen and examined the patient. Everything documented was personally performed at this visit with the necessary additions, deletions and changes made as appropriate. documented in this encounter Miscellaneous Notes * Addendum Note - Cole Garsia APN, CNP - 06/06/2021 4:00 PM CDT Addended by: COLE GARSIA on: 06/07/2021 10:04 AM Modules accepted: Orders documented in this encounter Plan of Treatment Upcoming Encounters Date Type Department Care Team (Late st Contact Info) Description 10/29/2024 9:30 AM ODD PIECE CHECKER [facility] Visit [facility] Family [facility] [address] [place] [address] Bhargavi Morel, ARAM [address] [place] [address] documented as of this encounter Procedures Procedure Name Priority Date/Time Associated Diagnosis Comments SARS-COV-2 BY MOLECULAR Routine 06/07/2021 9:59 AM CDT Sore throat POCT UA AUTOMATED W/O MICRO Routine 06/06/2021 3:59 PM CDT Urinary symptom or sign documented in this encounter Results * CULTURE, URINE (06/07/2021 11:28 AM CDT) Pathologist [facility] CULTURE RESULTS MIXED GROWTH OF 3 OR MORE ORGANISMS, PROBABLE COLLECTION CONTAMINATION, SUGGEST REPEAT URINE CULTURE. 06/08/2021 4:42 PM CDT [facility] Culture URINE SPECIMEN / Unknown Non-Phlebotomy Collection / Unknown 06/07/2021 11:28 AM CDT 06/07/2021 11:28 AM CDT us Cole Garsia APRN, CNP MICROBIOLOGY - G ENERAL ORDERABLES Final Result Performing Organization Address [facility] Co de Phone Number [facility] [address] [place] [address], [place] * SARS-COV-2 BY MOLECULAR (06/07/2021 9:59 AM CDT) Pathologist [facility] SARSCOV2 NOT DETECTED (Referen ce Range for this test is Not Detected ) [facility] FAST DX 06/08/2021 10:01 AM CDT [facility] Comment:This test was perfor med by a RT-PCR method. Other NASAL STRUCTURE / Unknown Non-Phlebotomy Collection / Unknown 06/07/2021 9:59 AM CDT 06/07/2021 9:59 AM CDT Narrative [facility] - 06/08/2021 10:01 AM CDT Authorized Fact Sheets about this test for providers and patients are available at: https://www.fda.gov/medical-devices/kezbawwfa-wnnotpjrxx-zmoecfw-devices/emergen cy-us e-authorizations us Cole Garsia APRN, CNP MICROBIOLOGY - G ENERAL ORDERABLES Final Result Performing Organization Address City/[facility]/ZIP Co de Phone Number F [facility] [address] [place] [address], [place] * (ABNORMAL) POCT UA AUTOMATED W/O MICRO (06/06/2021 3:59 PM CDT) POC UA SPECIFIC GRAVITY 1.015 URINE PH 5.0 5.0 - 9.0 UR, LEUKOCYTES 2+ (500 Flory/uL)(A) Negative Flory/uL UR, NITRITE Negative Negative UR, PROTEIN 1+ (30 mg/dL)(A) Negative mg/dL UR, GLUCOSE 3+ (>1000 mg/dL)(A) Normal mg/dL UR, KETONE 1+(15 mg/dL)(A) Negative mg/dL UR, UROBILINOGEN Normal Normal mg/dL UR, BILIRUBIN Negative Negative mg/dL UR. BLOOD 2+ (250 Anderson/uL)(A) Negative URINALYSIS COLOR Dark Yellow URINALYSIS CLARITY Cloudy Urine 06/06/2021 3:59 PM CDT us Cole Garsia APRN, MEDICAL TRANSCRIBER POINT OF CARE TE STING (MANUAL) Final Result documented in this encounter Visit Diagnoses Diagnosis Acute UTI- Primary Urinary tract infection, site not specified Sore throat Acute pharyngitis Urinary symptom or sign documented in this encounter Additional Health Concerns Infection Onset Date Last Indicated Resolved Time COVID - 19 Comment:Vaccinated; nondetected x2; acute pyelonephritis 06/06/2021 06/09/2021 06/10/2021 6:46 AM CDT documented as of this encounter Care Teams Licensed Mental Health Counselor Relationship Specialty Start Date End Date Jovita Bermudez MD [address] [place] [address] PCP - General Family Medicine 11/30/20 07/21/23 documented as of this encounter
--- OUTSIDE RECORDS SUMMARY | 2024-08-30 18:50 | XMS_ITS | Encounter Summary ---
Author Organization [facility] Address [address] [place] [address] Phone Care Team Providers Care [employer] Intermediary Name Role Phone Jovita Bermudez MD Primary Care Provider [phone] Reason for Visit * Reason Onset Date Comments Appointment 09/05/2022 Encounter Details Date Type Department Care Team (Late st Contact Info) Description 09/05/2022 Telephone [facility] [address] [place] [address] Jovita Bermudez MD [address] [place] [address] Appointment Social History Tobacco Use Types Packs/Day [...] Miscellaneous Notes * Telephone Encounter - Reanna Ruth, RN - 09/05/2022 8:35 AM CST Patient calling and stating that she is due for a follow up appointment. Asking to schedule appointment on a . Scheduled patient as below. All Patient Appointments Provider Department Dept Phone 09/14/2022 3:00 PM Bhargavi Morel [facility] [phone] Assistive services verified. TE AND TRUST TAX PRINCIPAL documented in this encounter Plan of Treatment Upcoming Encounters Date Type Department Care Team (Late st Contact Info) Description 10/29/2024 9:30 AM ESTATE AND TRUST TAX PRINCIPAL Office Visit [facility] [address] [place] [address] Bhargavi Morel PAC [address] [place] [address] documented as of this encounter Visit Diagnoses Not on filedocumented in this encounter Additional Health Concerns Assessment Noted Time PHQ-9 Depression Total Score: 0 05/04/20 22 1:35 PM CDT documented as of this encounter Care Teams [employer] Intermediary Relationship Specialty Start Date End Date Jovita Bermudez MD [address] [place] [address] PCP - General Family Medicine 11/30/20 07/21/23 documented as of this encounter
--- OUTSIDE RECORDS SUMMARY | 2024-08-30 18:50 | XMS_ITS | Encounter Summary ---
Author Organization [facility] Address [address] [place] [address] Phone Care Team Providers Care [employer] Business Analyst Name Role Phone Jovita Bermudez MD Primary Care Provider [phone] Encounter Details Date Type Department Care Team (Late st Contact Info) Description 10/14/2021 Refill [facility] - Pulmonology & Sleep Medicine [facility] [address] [place] [phone] Flaquito Hurd MD [address] [place] [address] Social History Tobacco Use Types [...] encounter Miscellaneous Notes * Telephone Encounter - Bhavna Lai RN - 10/14/2021 10:54 AM NONPROFIT MANAGER Medication failed the protocol, provider to review and approve the medication order if appropriate. Requested Prescriptions Pending Prescriptions Disp Refills gabapentin (NEURONTIN) 600 MG Tablet 90 Tablet 1 Sig: Take 1 Tablet by mouth daily. Not Delegated - Anticonvulsants Excluding Benzodiazepines Protocol Failed - 10/14/2021 10:26 AM Failed - This refill cannot be delegated Passed - Visit with relevant provider in past 12 months or upcoming 90 days Recent Visits Date Type Provider Dept 08/25/21 Office Visit Jovita Bermudez MD [facility] 06/14/21 Office Visit Bhargavi Morel PAC [facility] [place] 06/06/21 Office Visit Cole Garsia APRN, GAIL [facility] [place] 05/04/21 Office Visit Jovita Bermudez MD [facility] 04/04/21 Office Visit Flaquito Hurd MD [facility] 03/17/21 Office Visit Harry Howell MD [facility] 01/19/21 Office Visit Jovita Bermudez MD [facility] 12/28/20 Telemedicine Flaquito Hurd MD [facility] 11/30/20 Office Visit Jovita Bermudez MD [facility] Showing recent visits within past 365 days and meeting all other requirements Future Appointments Date Type Provider Dept 11/09/21 Appointment Flaquito Hurd MD [facility] 11/23/21 Appointment Jovita Bermudez MD [facility] Showing future appointments within next 90 days and meeting all other requirements ROFIT MANAGER documented in this encounter Plan of Treatment Upcoming Encounters Date Type Department Care Team (Late st Contact Info) Description 10/29/2024 9:30 AM NONPROFIT MANAGER [facility] Visit [facility] - [place] [address] [place] [address] Bhargavi Morel, ARAM [address] [place] [address] documented as of this encounter Visit Diagnoses Diagnosis Restless legs syndrome (RLS)- Primary documented in this encounter Care Teams [employer] Business Analyst Relationship Specialty Start Date End Date Jovita Bermudez MD [address] [place] [address] PCP - General Family Medicine 11/30/20 07/21/23 documented as of this encounter
--- OUTSIDE RECORDS SUMMARY | 2024-08-30 18:50 | XMS_ITS | Encounter Summary ---
Author Organization [facility] Address [address] [place] [address] Phone Care Team Providers Care Mill Work Name Role Phone Jovita Bermudez MD Primary Care Provider [phone] Reason for Visit * Reason Comments Medication Refill Encounter Details Date Type Department Care Team (Late st Contact Info) Description 05/02/2022 Refill [facility] - Family Medicine [facility] [address] [place] [address] Jovita Bermudez MD [address] [place] [address] Medication Refill Social History Tobacco Use Types [...] Telephone Encounter - La Coronel RN - 05/03/2022 10:46 AM CDT PDMP 03/21/22 Medication failed the protocol, provider to review and approve the medication order if appropriate. Requested Prescriptions Pending Prescriptions Disp Refills traMADol (ULTRAM) 50 MG Tablet [Pharmacy Med Name: TRAMADOL HCL 50MG TABS] 28 Tablet 0 Sig: TAKE ONE TABLET BY MOUTH EVERY 6 HOURS NEEDED FOR MODERATE OR MORE SEVERE PAIN Not Delegated - Opioid Agonists Protocol Failed - 05/02/2022 3:54 PM Failed - This refill cannot be delegated Passed - Visit with relevant provider in past 12 months or upcoming 90 days Recent Visits Date Type Provider Dept 08/25/21 Office Visit [facility] 06/14[facility]21 Office Visit Bhargavi Morel, ARAM [facility] 06/06/21 Office Visit Cole Garsia APRN, GAIL [facility] 05/04/21 Office Visit Jovita Bermudez [facility] Showing recent visits within past 365 days and meeting all other requirements Future Appointments Date Type Provider Dept 05/04/22 Appointment Bhargavi Morel PAC [facility] Showing future appointments within next 90 days and meeting all other requirements documented in this encounter Plan of Treatment Upcoming Encounters Date Type Department Care Team (Late st Contact Info) Description 10/29/2024 9:30 AM MENTAL HEALTH COUNSELOR Office Visit [facility] Medical Group - Family Medicine [facility] [address] [place] [address] Bhargavi Morel, PAC [address] [place] [address] documented as of this encounter Visit Diagnoses Diagnosis Pain and swelling of right knee documented in this encounter Care Teams Mill Work Relationship Specialty Start Date End Date Jovita Bermudez MD [address] [place] [address] PCP - General Family Medicine 11/30/20 07/21/23 documented as of this encounter
--- OUTSIDE RECORDS SUMMARY | 2024-08-30 18:50 | XMS_ITS | Encounter Summary ---
Author Organization [facility] [employer] Care Team Providers Care Cloud Software Engineer Name Role Phone Jovita Bermudez MD Primary Care Provider [phone] Encounter Details Date Type Department Care Team (Latest Contact Info) Description 06/06/2021 Travel Social History Tobacco Use Types Packs/Day [...] st Contact Info) Description 10/29/2024 9:30 AM CONSERVATOR ARTIFACTS Office Visit [facility] Medical [facility] [place] [address] [place] [address] Bhargavi Morel PAC [address] [place] [address] documented as of this encounter Visit Diagnoses Not on filedocumented in this encounter Additional Health Concerns Infection Onset Date Last Indicated Resolved Time COVID - 19 Comment:Vaccinated; nondetected x2; acute pyelonephritis 06/06/2021 06/09/2021 06/10/2021 6:46 AM CDT documented as of this encounter Care Teams Cloud Software Engineer Relationship Specialty Start Date End Date Jovita Bermudez MD [address] [place] [address] PCP - General Family Medicine 11/30/20 07/21/23 documented as of this encounter
--- OUTSIDE RECORDS SUMMARY | 2024-08-30 18:50 | XMS_ITS | Encounter Summary ---
Author Organization [facility] Address [address] [place] [address] Phone Care Team Providers Care Intellectual Property Manager Name Role Phone Jovita Bermudez MD Primary Care Provider [phone] Reason for Visit * Reason Comments Medication Refill Encounter Details Date Type Department Care Team (Late st Contact Info) Description 03/21/2022 Refill [facility] [address]2 [place] [address] Bhargavi Morel, ARAM [address] [place] [address] Medication Refill Social History Tobacco Use Types [...] Telephone Encounter - Reanna Rios RN - 03/22/2022 9:25 AM CDT Medication failed the protocol, provider to review and approve the medication order if appropriate. Requested Prescriptions Pending Prescriptions Disp Refills Jardiance 25 MG Tablet [Pharmacy Med Name: JARDIANCE 25MG TABS] 30 Tablet 2 Sig: TAKE ONE TABLET BY MOUTH EVERY DAY SGLT2 Inhibitors Protocol Failed - 03/21/2022 1:22 PM Failed - Visit with relevant provider in past 6 months or upcoming 90 days Recent Visits No visits were found meeting these conditions. Showing recent visits within past 182 days and meeting all other requirements Future Appointments Date Type Provider Dept 04/05/22 Appointment Bhargavi Morel PAC [facility] Showing future appointments within next 90 days and meeting all other requirements Failed - HgA1C on record in past 6 months HGB-A1C Date Value Ref Range Status 08/10/2021 7.6 (H) 4.0 - 6.0 % Final Failed - GFR greater than or equal to 30 in past 6 months GFR, EST. NONAFRICAN Date Value Ref Range Status 08/10/2021 >60 >=60 Final documented in this encounter Plan of Treatment Upcoming Encounters Date Type Department Care Team (Late st Contact Info) Description 10/29/2024 9:30 AM HAND OR MACHINE PASTER Office Visit [facility] - Family Medicine [facility] [address] [place] [address] Bhargavi Morel PAC [address] [place] [address] documented as of this encounter Visit Diagnoses Not on filedocumented in this encounter Care Teams Intellectual Property Manager Relationship Specialty Start Date End Date Jovita Bermudez MD [address] [place] [address] PCP - General Family Medicine 11/30/20 07/21/23 documented as of this encounter
--- OUTSIDE RECORDS SUMMARY | 2024-08-30 18:50 | XMS_ITS | Encounter Summary ---
Author Organization [facility] Address [address] [place] [address] Phone Care Team Providers Care Interior Design Assistant Name Role Phone Jovita Bermudez MD Primary Care Provider [phone] Bhargavi Morel Primary Care Provider + Flaquito Hurd MD Unavailable Wes Petty MD Unavailable Reason for Visit * Reason Comments Medication Refill Encounter Details Date Type Department Care Team (Late st Contact Info) Description 04/18/2021 Refill [facility] - Family Medicine [facility] [address] [place] [address] Jovita Bermudez MD [address] [place] [address] Medication Refill Social History Tobacco [...] Telephone Encounter - Reanna Rios RN - 04/19/2021 10:02 AM CDT metoprolol Succinate (TOPROL-XL) 100 MG TABLET SR 24 HR 135 Tablet 1 01/19/2021 Sig - Route: Take 1.5 Tablets by mouth daily. - Oral Sent to pharmacy as: Metoprolol Succinate ER 100 MG Oral Tablet Extended Release 24 Hour (TOPROL-XL) Class: E Prescribe E-Prescribing Status: Receipt confirmed by pharmacy (01/19/2021 ??9:13 AM CDT) Order Questions ?? metoprolol Succinate (TOPROL-XL) 100 MG TABLET SR 24 HR [[id number]] 1 Status: Active Ordering user: Jovita Bermudez MD 01/19/21911 Authorized by: Jovita Bermudez MD Frequency: Daily 01/19/21 - Until Discontinued Pharmacy [place], [place] - [address] Indicates a 90 day refill on file documented in this encounter Plan of Treatment Upcoming Encounters Date Type Department Care Team (Late st Contact Info) Description 10/29/2024 9:30 AM MAINTENANCE PAINTER Office Visit [facility] [address] [place] [address] Bhargavi Morel PAC [address] [place] [address] documented as of this encounter Visit Diagnoses Not on filedocumented in this encounter Additional Health Concerns Infection Onset Date Last Indicated Resolved Time COVID - 19 Comment:Vaccinated; nondetected x2; acute pyelonephritis 06/06/2021 06/09/2021 06/10/2021 6:46 AM CDT Respiratory Rule Out - RPA 06/10/2021 06/10/2021 1 10:25 PM CDT documented as of this encounter Care Teams Interior Design Assistant Relationship Specialty Start Date End Date Jovita Bermudez MD [address] [place] [address] PCP - General Family Medicine 11/30/20 07/21/23 Bhargavi Morel [facility] [address] [place] [address] PCP - General Physician Parole Hearing Officer 07/22/23 Flaquito Hurd MD [address] [place] [address] Consulting Physician Pulmonary Disease 11/09/22 Wes Petty MD [address] [address] Consulting Physician Urology 01/18/24 documented as of this encounter
--- OUTSIDE RECORDS SUMMARY | 2024-08-30 18:50 | XMS_ITS | Encounter Summary ---
Author Organization [facility] Address [address] [place] [address] Phone Care Team Providers Care Extract Puller Name Role Phone Jovita Bermudez MD Primary Care Provider [phone] Reason for Visit * Reason Comments Medication Refill Encounter Details Date Type Department Care Team (Late st Contact Info) Description 07/04/2022 Refill [facility] [address] [place] [address] Jovita Bermudez MD [address] [place] [address] Medication Refill Social History Tobacco Use Types [...] Telephone Encounter - Reanna Rios RN - 07/05/2022 7:50 AM CST Medication(s) refilled and signed per [facility] Chronic Medication Refill Standing Order for Pediatricand Adult Patients. Requested Prescriptions Pending Prescriptions Disp Refills ??? Jardiance 25 MG Tablet [Pharmacy Med Name: JARDIANCE 25MG TABS] 30 Tablet 2 Sig: TAKE ONE TABLET BY MOUTH EVERY DAY SGLT2 Inhibitors Protocol Passed - 07/04/2022 4:50 PM Passed - Visit with relevant provider in past 6 months or upcoming 90 days Recent Visits Date Type Provider Dept 05/04/22 Office Visit Bhargavi Morel PAC [facility] Showing recent visits within past 182 days [...] Ref Range Status 05/04/2022 >60 >=60 Final RAL HOME LOCATION MANAGER documented in this encounter Plan of Treatment Upcoming Encounters Date Type Department Care Team (Late st Contact Info) Description 10/29/2024 9:30 AM FUNERAL HOME LOCATION MANAGER Office Visit [facility] Medical Group - Family Medicine [facility] [address] [place] [address] Bhargavi Morel PAC [address] [place] [address] documented as of this encounter Visit Diagnoses Not on filedocumented in this encounter Additional Health Concerns Assessment Noted Time PHQ-9 Depression Total Score: 0 05/04/20 22 1:35 PM CDT documented as of this encounter Care Teams Extract Puller Relationship Specialty Start Date End Date Jovita Bermudez MD [address] [place] [address] PCP - General Family Medicine 11/30/20 07/21/23 documented as of this encounter
--- OUTSIDE RECORDS SUMMARY | 2024-08-30 18:50 | XMS_ITS | Encounter Summary ---
Author Organization [facility] Address [address] [place] [address] Phone Care Team Providers Care Wire Mesh Knitter Name Role Phone Jovita Bermudez MD Primary Care Provider [phone] Reason for Visit * Reason Comments Medication Refill Encounter Details Date Type Department Care Team (Late st Contact Info) Description 09/07/2021 Refill [facility] [address]2 [place] [address] Bhargavi Morel, ARAM [address] [place] [address] Medication Refill Social History Tobacco Use Types [...] COVID-19? No / Unsure 08/25/2021 1:10 PM COMPUTER INSTRUCTOR documented as of this encounter Miscellaneous Notes * Telephone Encounter - Reanna Rios RN - 09/07/2021 3:34 PM CST Medication(s) refilled and signed per [facility] Chronic Medication Refill Standing Order for Pediatricand Adult Patients. Requested Prescriptions Pending Prescriptions Disp Refills ??? Jardiance 25 MG Tablet [Pharmacy Med Name: JARDIANCE 25MG TABS] 30 Tablet 2 Sig: TAKE ONE TABLET BY MOUTH EVERY DAY SGLT2 Inhibitors Protocol Passed - 09/07/2021 9:22 AM Passed - Visit with relevant provider in past 6 months or upcoming 90 days Recent Visits Date Type Provider Dept 08/25/21 Office Visit Jovita Bermudez MD [facility] [place] 06/14/21 Office Visit Bhargavi Morel PAC [facility] 06/06/21 Office Visit Cole Garsia APRN, GAIL [facility] 05/04/21 Office Visit Jovita Bermudez MD [facility] 03/17/21 Office Visit Harry Howell MD [facility] Showing recent visits within past 182 days and meeting all other requirements Future Appointments Date Type Provider Dept 11/23/21 Appointment Jovita Bermudez MD [facility] Showing future appointments within next 90 days and meeting all other requirements Passed - HgA1C on record in past 6 months HGB-A1C Date Value Ref Range Status 08/10/2021 7.6 (H) 4.0 - 6.0 % Final Passed - GFR greater than or equal to 30 in past 6 months GFR, EST. NONAFRICAN Date Value Ref Range Status 08/10/2021 >60 >=60 Final UTER INSTRUCTOR documented in this encounter Plan of Treatment Upcoming Encounters Date Type Department Care Team (Late st Contact Info) Description 10/29/2024 9:30 AM COMPUTER INSTRUCTOR Office Visit [facility] Medical Group - Family Medicine [facility] [address] [place] [address] Bhargavi Morel, PAC [address] [place] [address] documented as of this encounter Visit Diagnoses Not on filedocumented in this encounter Care Teams Wire Mesh Knitter Relationship Specialty Start Date End Date Jovita Bermudez MD [address] [place] [address] PCP - General Family Medicine 11/30/20 07/21/23 documented as of this encounter
--- OUTSIDE RECORDS SUMMARY | 2024-08-30 18:50 | XMS_ITS | Encounter Summary ---
Author Organization [facility] Address [address] [place] [address] Phone Care Team Providers Care Piano Player Name Role Phone Jovita Bermudez MD Primary Care Provider [phone] Reason for Visit * Reason Comments Medication Refill Encounter Details Date Type Department Care Team (Late st Contact Info) Description 07/19/2022 Refill [facility] [address] [place] [address] Jovita Bermudez MD [address] [place] [address] Medication Refill Social History Tobacco Use Types [...] Telephone Encounter - Reanna Rios RN - 07/19/2022 10:43 AM CST Medication(s) refilled and signed per [facility] Chronic Medication Refill Standing Order for Pediatricand Adult Patients. Requested Prescriptions Pending Prescriptions Disp Refills ??? levothyroxine (SYNTHROID) 75 MCG Tablet [Pharmacy Med Name: LEVOTHYROXINE SODIUM 75MCG TABS] 90Tablet 1 Sig: TAKE ONE TABLET BY MOUTH EVERY DAY Thyroid Hormones Protocol Passed - 07/19/2022 9:39 AM Passed - Visit with relevant provider in past 12 months or upcoming 90 days Recent Visits Date Type Provider Dept 05/04/22 Office Visit Bhargavi Morel PAC [facility] [place] 08/25/21 Office Visit Jovita Bermudez MD [facility] Showing recent visits within past 365 days and meeting all other requirements Future Appointments No visits were found meeting these conditions. Showing future appointments within next 90 days and meeting all other requirements Passed - Normal TSH in past 12 months TSH Date Value Ref Range Status 05/04/2022 1.760 0.270 - 4.200 mIU/L Final TRICAL ENGINEERING TEACHER documented in this encounter Plan of Treatment Upcoming Encounters Date Type Department Care Team (Late st Contact Info) Description 10/29/2024 9:30 AM ELECTRICAL ENGINEERING TEACHER Office Visit [facility] [address] [place] [address] Bhargavi Morel PAC [address] [place] [address] documented as of this encounter Visit Diagnoses Not on filedocumented in this encounter Additional Health Concerns Assessment Noted Time PHQ-9 Depression Total Score: 0 05/04/20 1:35 PM CDT documented as of this encounter Care Teams Piano Player Relationship Specialty Start Date End Date Jovita Bermudez MD [address] [place] [address] PCP - General Family Medicine 11/30/20 07/21/23 documented as of this encounter
--- OUTSIDE RECORDS SUMMARY | 2024-08-30 18:50 | XMS_ITS | Encounter Summary ---
Author Organization [facility] Address [address] [place] [address] Phone Care Team Providers Care Police Patrol Lieutenant Name Role Phone Jovita Bermudez MD Primary Care Provider [phone] Reason for Visit * Reason Comments Medication Refill Encounter Details Date Type Department Care Team (Late st Contact Info) Description 01/18/2022 Refill [facility] Medical Group - Family Medicine [facility] [address] [place] [address] Jovita Bermudez MD [address] [place] [address] Medication Refill Social History Tobacco Use Types [...] Telephone Encounter - Reanna Rios RN - 01/18/2022 2:19 PM CDT PDMP 12/14/21 Medication failed the protocol, provider to review and approve the medication order if appropriate. Requested Prescriptions Pending Prescriptions Disp Refills levothyroxine (SYNTHROID) 75 MCG Tablet [Pharmacy Med Name: LEVOTHYROXINE SODIUM 75MCG TABS] 90 Tablet 1 Sig: TAKE ONE TABLET BY MOUTH EVERY DAY Thyroid Hormones Protocol Passed - 01/18/2022 1:05 PM Passed - Visit with relevant provider in past 12 months or upcoming 90 days Recent Visits Date Type Provider Dept 08/25/21 Office Visit Jovita Bermudez MD [facility] 06/14/21 Office Visit Bhargavi Morel, PAC [facility] 06/06/21 Office Visit Cole Garsia APRN, LIVING SPECIALIST [facility] [place] 05/04/21 Office Visit [facility]ita [facility]z MD [facility] [...] months TSH Date Value Ref Range Status 02/23/2021 1.730 0.270 - 4.200 mIU/L Final traMADol (ULTRAM) 50 MG Tablet [Pharmacy Med Name: TRAMADOL HCL 50MG TABS] 28 Tablet 0 Sig: TAKE 1 TABLET BY MOUTH EVERY 6 HOURS NEEDED FOR MODERATE OR SEVERE PAIN. Not Delegated - Opioid Agonists Protocol Failed - 01/18/2022 1:05 PM Failed - This refill cannot be delegated Passed - Visit with relevant provider in past 12 months or upcoming 90 days Recent Visits Date Type Provider Dept 08/25/21 Office Visit Jovita Bermudez MD [facility] 06/14/21 Office Visit Bhargavi Morel, ARAM [facility] 06/06/21 Office Visit Cole Garsia APRN, LIVING SPECIALIST [facility] 05/04/21 Office Visit [facility]ita [facility]z [facility] [...] st Contact Info) Description 10/29/2024 9:30 AM RECYCLE COORDINATOR Office Visit [facility] [place] [address] [place] [address] Bhargavi Morel, PAC [address] [place] [address] documented as of this encounter Visit Diagnoses Diagnosis Pain and swelling of right knee documented in this encounter Care Teams Police Patrol Lieutenant Relationship Specialty Start Date End Date Jovita Bermudez MD [address] [place] [address] PCP - General Family Medicine 11/30/20 07/21/23 documented as of this encounter
--- OUTSIDE RECORDS SUMMARY | 2024-08-30 18:50 | XMS_ITS | Encounter Summary ---
Author Organization [facility] [employer] [facility] Care Team Providers Care Distribution Clerk Name Role Phone Jovita Bermudez MD Primary Care Provider [phone] Encounter Details Date Type Department Care Team (Latest Contact Info) Description 04/04/2021 Travel Social History Tobacco Use Types Packs/Day [...] st Contact Info) Description 10/29/2024 9:30 AM CLIPPER MACHINE Office Visit [facility] Medical Group - Family Medicine [facility] [address] [place] [address] Bhargavi Morel, ARAM [address] [place] [address] documented as of this encounter Visit Diagnoses Not on filedocumented in this encounter Care Teams Distribution Clerk Relationship Specialty Start Date End Date Jovita Bermudez MD [address] [place] [address] PCP - General Family Medicine 11/30/20 07/21/23 documented as of this encounter
--- OUTSIDE RECORDS SUMMARY | 2024-08-30 18:50 | XMS_ITS | Encounter Summary ---
Author Organization [facility] Address [address] [place] [address] Phone Care Team Providers Care Manager Apple Name Role Phone Jovita Bermudez MD Primary Care Provider [phone] Reason for Visit * Reason Comments Medication Refill Encounter Details Date Type Department Care Team (Late st Contact Info) Description 09/14/2022 Refill [facility] [address] [place] [address] Jovita Bermudez MD [address] [place] [address] Medication Refill Social History Tobacco Use Types [...] Telephone Encounter - Reanna Rios RN - 09/14/2022 12:19 PM CST Medication(s) refilled and signed per [facility] Chronic Medication Refill Standing Order for Pediatricand Adult Patients. Requested Prescriptions Pending Prescriptions Disp Refills ??? Jardiance 25 MG Tablet [Pharmacy Med Name: JARDIANCE 25MG TABS] 30 Tablet 2 Sig: TAKE ONE TABLET BY MOUTH EVERY DAY SGLT2 Inhibitors Protocol Passed - 09/14/2022 9:17 AM Passed - Visit with relevant provider in past 6 months or upcoming 90 days Recent Visits Date Type Provider Dept 05/04/22 Office Visit Bhargavi Morel PAC [facility] [place] Showing recent visits within past 182 days and meeting all other requirements Future Appointments Date Type Provider Dept 09/28/22 Appointment Bhargavi Morel PAC [facility] [place] Showing future appointments within next 90 days and meeting all other requirements Passed - HgA1C on record in past 6 months HGB-A1C Date Value Ref Range Status 05/04/2022 9.1 (H) 4.0 - 6.0 % Final Passed - GFR greater than or equal to 30 in past 6 months GFR, EST. NONAFRICAN Date Value Ref Range Status 05/04/2022 >60 >=60 Final E RUBBER documented in this encounter Plan of Treatment Upcoming Encounters Date Type Department Care Team (Late st Contact Info) Description 10/29/2024 9:30 AM STONE RUBBER Office Visit [facility] - Family [facility] #2 [place] [address] Bhargavi Morel PAC [address] [place] [address] documented as of this encounter Visit Diagnoses Not on filedocumented in this encounter Additional Health Concerns Assessment Noted Time PHQ-9 Depression Total Score: 0 05/04/20 1:35 PM CDT documented as of this encounter Care Teams Manager Apple Relationship Specialty Start Date End Date Jovita Bermudez MD [address] [place] [address] PCP - General Family Medicine 11/30/20 07/21/23 documented as of this encounter
--- OUTSIDE RECORDS SUMMARY | 2024-08-30 18:50 | XMS_ITS | Encounter Summary ---
Author Organization [facility] [employer] Care Team Providers Care Awake Overnight Monitor Name Role Phone Jovita Bermudez MD Primary Care Provider [phone] Encounter Details Date Type Department Care Team (Latest Contact Info) Description 06/09/2021 Travel Social History Tobacco Use Types Packs/Day [...] st Contact Info) Description 10/29/2024 9:30 AM SPECIAL INSPECTOR Office Visit [facility] Medical [facility] [address] [place] [address] Bhargavi Morel PAC [address] [place] [address] documented as of this encounter Visit Diagnoses Not on filedocumented in this encounter Additional Health Concerns Infection Onset Date Last Indicated Resolved Time COVID - 19 Comment:Vaccinated; nondetected x2; acute pyelonephritis 06/06/2021 06/09/2021 06/10/2021 6:46 AM CDT documented as of this encounter Care Teams Awake Overnight Monitor Relationship Specialty Start Date End Date Jovita Bermudez MD [address] [place] [address] PCP - General Family Medicine 11/30/20 07/21/23 documented as of this encounter
--- OUTSIDE RECORDS SUMMARY | 2024-08-30 18:50 | XMS_ITS | Encounter Summary ---
Author Organization [facility] Address [address] [place] [address] Phone Care Team Providers Care Flat Bed Operator Name Role Phone Jovita Bermudez MD Primary Care Provider [phone] Reason for Visit * Reason Comments Medication Refill Encounter Details Date Type Department Care Team (Late st Contact Info) Description 10/17/2021 Refill [facility] [address] [place] [address] Jovita Bermudez MD [address] [place] [address] Medication Refill Social History Tobacco Use Types [...] Telephone Encounter - Reanna Rios RN - 10/18/2021 12:10 PM CST Medication(s) refilled and signed per [facility] Chronic Medication Refill Standing Order for Pediatricand Adult Patients. Requested Prescriptions Pending Prescriptions Disp Refills ??? metFORMIN (GLUCOPHAGE) 1000 MG Tablet [Pharmacy Med Name: METFORMIN HCL 1000MG TABS] 180 Tablet1 Sig: TAKE ONE TABLET BY MOUTH TWICE A DAY Biguanides Protocol Passed - 10/17/2021 5:17 PM Passed - Visit with relevant provider in past 6 months or upcoming 90 days Recent Visits Date Type Provider Dept 08/25/21 Office Visit [facility] 06/14/21 [facility] Office Visit Cole Garsia APRN, FLOOR COVERING LAYER [facility] 05/04/21 Office Visit [facility] Show[facility] recent visits within past 182 days and meeting all other requirements Future Appointments Date Type Provider Dept 11/23/21 Appointment Jovita Bermudez MD [facility] [place] Showing future appointments within next 90 days and meeting all other requirements Passed - HgA1C on record in past 6 months HGB-A1C Date Value Ref Range Status 08/10/2021 7.6 (H) 4.0 - 6.0 % Final Passed - GFR on record in past 6 months GFR, EST. NONAFRICAN Date Value Ref Range Status 08/10/2021 >60 >=60 Final STATION CLERK documented in this encounter Plan of Treatment Upcoming Encounters Date Type Department Care Team (Late st Contact Info) Description 10/29/2024 9:30 AM GAS STATION CLERK Office Visit [facility] Medical Group - Family Medicine [facility] [address] [place] [address] Bhargavi Morel, PAC [address] [place] [address] documented as of this encounter Visit Diagnoses Not on filedocumented in this encounter Care Teams Flat Bed Operator Relationship Specialty Start Date End Date Jovita Bermudez MD [address] [place] [address] PCP - General Family Medicine 11/30/20 07/21/23 documented as of this encounter
--- OUTSIDE RECORDS SUMMARY | 2024-08-30 18:50 | XMS_ITS | Encounter Summary ---
Author Organization [facility] Address [address] [place] [address] Phone Care Team Providers Care Eastern Philosophy Professor Name Role Phone Jovita Bermudez MD Primary Care Provider [phone] Reason for Referral * Radiology Services (Routine) - Closed Specialty Diagnoses / Procedures Referred By Contac t Referred To Contact Radiology Diagnoses Pneumonia due to infectious organism, unspecified laterality, unspecified part of lung Procedures CT CHEST W/O CONTRAST Bhargavi Morel PAC [address] [place] [address] Phone: tel: fax: Referral ID Status Reason Start Date Expiration Date Visits Re quested Visits Authorized [id number] Closed 08/12/2021 1 1 TABLE PACKER Encounter Details Date Type Department Care Team (Late st Contact Info) Description 08/12/2021 Telephone [facility] - [facility]agulation [facility] [address] [place] [address] Bhargavi Morel PAC [address] [place] [address] Social History Tobacco Use Types Packs/Day Years [...] COVID-19? No / Unsure 08/10/2021 9:44 AM VEGETABLE PACKER documented as of this encounter Miscellaneous Notes * Telephone Encounter - Mikala Mathur RN - 08/12/2021 9:35 AM CST Order placed per written order of LF: see imaging result note from 08/11/2021. Pt aware. TABLE PACKER * Telephone Encounter - Mikala Mathur RN - 08/12/2021 9:22 AM CST ----- Message from Bhargavi Morel, ARAM sent at 08/11/2021 12:41 PM VEGETABLE PACKER ----- Pneumonia resolved, There are some small lymph nodes enlarged likely reactive, but should repeat ct in 3 month, place order if agreeable TABLE PACKER documented in this encounter Plan of Treatment Upcoming Encounters Date Type Department Care Team (Late st Contact Info) Description 10/29/2024 9:30 AM VEGETABLE PACKER Office Visit [facility] - Family Medicine [facility] [address] [place] [address] Bhargavi Morel, PAC [address] [place] [address] Scheduled Orders Name Type Priority Associated Diagnoses Orde r Schedule CT CHEST W/O CONTRAST Imaging Routine Pneumonia due to infectious organism, unspecified laterality, unspecified part of lung Expected: 02/20/2023, Expires: 08/22/2023 documented as of this encounter Visit Diagnoses Diagnosis Pneumonia due to infectious organism, unspecified laterality, unspecified part of lung documented in this encounter Care Teams Eastern Philosophy Professor Relationship Specialty Start Date End Date Jovita Bermudez MD [address] [place] [address] PCP - General Family Medicine 11/30/20 07/21/23 documented as of this encounter
--- OUTSIDE RECORDS SUMMARY | 2024-08-30 18:50 | XMS_ITS | Encounter Summary ---
Author Organization [facility] [email or web address] [facility] Care Team Providers Care Blue Leather Setter Name Role Phone Jovita Bermudze MD Primary Care Provider [phone] Encounter Details Date Type Department Care Team (Latest Contact Info) Description 08/25/2021 Travel Social History Tobacco Use Types Packs/Day [...] COVID-19? No / Unsure 08/25/2021 1:10 PM RECORD CHANGER ASSEMBLER documented as of this encounter Plan of Treatment Upcoming Encounters Date Type Department Care Team (Late st Contact Info) Description 10/29/2024 9:30 AM RECORD CHANGER ASSEMBLER Office Visit [facility] - Family [facility] [address] [place] [address] Bhargavi Morel PAC [address] [place] [address] documented as of this encounter Visit Diagnoses Not on filedocumented in this encounter Care Teams Blue Leather Setter Relationship Specialty Start Date End Date Jovita Bermudez MD [address] [place] [address] PCP - General Family Medicine 11/30/20 07/21/23 documented as of this encounter
--- OUTSIDE RECORDS SUMMARY | 2024-08-30 18:50 | XMS_ITS | Encounter Summary ---
Author Organization [facility] Address [address] [place] [address] Phone Care Team Providers Care Forge Shop Machine Repairer Name Role Phone Jovita Bermudez MD Primary Care Provider [phone] Bhargavi Morel Primary Care Provider + Flaquito Hurd MD Unavailable Wes Petty MD Unavailable Reason for Visit * Reason Comments Medication Refill Encounter Details Date Type Department Care Team (Late st Contact Info) Description 04/19/2022 Refill [facility] Pulmonology & Sleep Medicine [facility] [address] [place] [address] Flaquito Hurd MD [address] [place] [address] Medication Refill Social History Tobacco [...] Telephone Encounter - Bhavna Lai RN - 04/19/2022 2:53 PM CDT Medication failed the protocol, provider to review and approve the medication order if appropriate. Requested Prescriptions Pending Prescriptions Disp Refills gabapentin (NEURONTIN) 600 MG Tablet [Pharmacy Med Name: GABAPENTIN 600MG TABS] 90 Tablet 1 Sig: Take 1 Tablet by mouth daily. Not Delegated - Anticonvulsants Excluding Benzodiazepines Protocol Failed - 04/19/2022 2:34 PM Failed - This refill cannot be delegated Passed - Visit with relevant provider in past 12 months or upcoming 90 days Recent Visits Date Type Provider Dept 11/09/21 Office Visit Flaquito Hurd MD [facility] [place] 08/25/21 Office Visit [facility]ita [facility]z [facility] [place] 06/14/21 Office Visit Bhargavi Morel PAC [facility] [place] 06/06/21 Office Visit Cole Garsia APRN, CNP [facility] [place] 05/04/21 Office Visit Jovita Bermudez MD [facility] [place] Showing recent visits within past 365 days and meeting all other requirements Future Appointments Date Type Provider Dept 05/04/22 Appointment Bhargavi Morel PAC [facility] [place] 05/10/22 Appointment Flaquito Hurd MD [facility] [place] Showing future appointments within next 90 days and meeting all other requirements documented in this encounter Plan of Treatment Upcoming Encounters Date Type Department Care Team (Late st Contact Info) Description 10/29/2024 9:30 AM MANAGER INSIDE Office Visit [facility] - Family Medicine - [place] [address] [place] [address] Bhargavi Morel PAC [address] [place] [address] documented as of this encounter Visit Diagnoses Diagnosis Restless legs syndrome (RLS) documented in this encounter Care Teams Forge Shop Machine Repairer Relationship Specialty Start Date End Date Jovita Bermudez MD [address] [place] [address] PCP - General Family Medicine 11/30/20 07/21/23 Bhargavi Morel PAC [address] [place] [address] PCP - General Physician Flame Gouger 07/22/23 Flaquito Hurd MD [address] [place] [address] Consulting Physician Pulmonary Disease 11/09/22 Wes Petty MD [facility] [facility] [address] [id number] Consulting Physician Urology 01/18/24 documented as of this encounter
--- OUTSIDE RECORDS SUMMARY | 2024-08-30 18:50 | XMS_ITS | Encounter Summary ---
Author Organization [facility] Address [address] [place] [address] Phone Care Team Providers Care Degreaser Operator Name Role Phone Jovita Bermudez MD Primary Care Provider [phone] Reason for Referral * Radiology Services (Routine) - Closed Specialty Diagnoses / Procedures Referred By Contac t Referred To Contact Radiology Diagnoses Atrial fibrillation, unspecified type (HCC) Procedures ADULT TRANS THORACIC ECHO 2D COMPLETE Bhargavi Morel PAC [address] [place] [address] Phone: tel: fax: Referral ID Status Reason Start Date Expiration Date Visits Re quested Visits Authorized [id number] Closed 06/14/2021 1 1 * Radiology Services (Routine) - Closed Specialty Diagnoses / Procedures Referred By Contac t Referred To Contact Radiology Diagnoses Pneumonia of right lower lobe due to infectious organism Procedures CT CHEST W/O CONTRAST Bhargavi Morel PAC [address] [place] [address] Phone: tel: fax: Referral ID Status Reason Start Date Expiration Date Visits Re quested Visits Authorized [id number] Closed 06/14/2021 1 1 Reason for Visit * Reason Comments Post-Hospital Follow-up Encounter Details Date Type Department Care Team (Late st Contact Info) Description 06/14/2021 4:00 PM CDT Office Visit [facility] [address] [place] [address] Bhargavi Morel, PAC [address] [place] [address] Pneumonia of right lower lobe due to infectious organism (Primary Dx); Atrial fibrillation, unspecified type (HCC) Discharge Disposition: Discharged to home [...] Sign Reading Time Taken Comments Blood Pressure 126/78 06/14/2021 3:43 PM CDT Pulse 102 06/14/2021 3:43 PM CDT Temperature 36.3 ??C (97.4 ??F) 06/14/2021 3:43 PM CD T Respiratory Rate 18 06/14/2021 3:43 PM CDT Oxygen Saturation 96% 06/14/2021 3:43 PM CDT Inhaled Oxygen Concentration - - Weight 102.2 kg (225 lb 4.8 oz) 06/14/2021 3:43 PM CDT Height 165.1 cm (5' 5 ) 06/14/2021 3:43 PM CDT Body Mass Index 37.49 06/14/2021 3:43 PM CDT documented in this encounter Progress Notes * Nurys Esposito MA - 06/14/2021 4:00 PM CDT Tressa Myers, 66 y.o., female is here for Post-Hospital Follow-up Medication Refills: Patient reports/denies need for medication refills. Orders Pended: no Requested Prescriptions No prescriptions requested or ordered in this encounter Home Medications Medication Sig Start Date End Date Taking? Authorizing Provider albuterol 108 (90 Base) MCG/ACT Aerosol Solution take 2 Puffs by inhalation every 4 hours as neededfor Wheezing or Cough. 06/11/21 Yes Yamil Benoit MD Ascorbic Acid 500 MG Chewable Tablet Take 500 mg by mouth. Yes Homero Pugh MD aspirin EC 81 MG Tablet Delayed Response Take 81 mg by mouth. Yes Homero Pugh MD Blood Glucose Monitoring Suppl Device glDiagnosis: Diabetes type 2 Blood testing frequency: once a day 02/23/21 Jovita Bermudez MD celecoxib (CeleBREX) 200 MG [...] once a day 02/23/21 Jovita Bermudez MD Jardiance 25 MG Tablet TAKE ONE TABLET BY MOUTH EVERY DAY 06/14/21 Yes Jovita Bermudez MD levoFLOXacin (LEVAQUIN) 750 MG Tablet Take 1 Tablet by mouth daily for 4 days. 06/12/21 06/16/21 Yes Yamil Benoit MD levothyroxine (SYNTHROID) 75 MCG Tablet Take 1 Tablet by mouth daily. 01/19/21 Yes Jovita Bermudez MD losartan (COZAAR) 25 MG Tablet 06/13/21 Yes Homero Pugh MD losartan (COZAAR) 50 MG Tablet Take 1 Tablet by mouth daily. 01/19/21 Jovita Bermudez MD metFORMIN (GLUCOPHAGE) 1000 MG [...] SEVERE PAIN 06/06/21 Yes Jovita Bermudez MD VITAMIN D PO [...] have been addressed with the patient today: No BPA's at this time * Bhargavi Morel, PAC - 06/14/2021 4:00 PM CDT Subjective: [place] [facility] Appointment in July Has history of open heart surgery, 2013 1 vessel disease according to patient Denies PND Has atrial fibrillation Review of Systems Constitutional: Positive for fatigue. Negative for chills and fever. HENT: Negative for congestion, sinus pressure and sinus pain. Respiratory: Positive for shortness of breath. Minimal cough, sob improving Cardiovascular: Negative for chest pain. Gastrointestinal: Negative for abdominal pain, nausea and vomiting. Genitourinary: Negative for difficulty urinating, dysuria and flank pain. Neurological: Negative for dizziness and headaches. Objective: Physical Exam Vitals reviewed. Constitutional: Appearance: Normal appearance. She is obese. She is not ill-appearing. HENT: Head: Normocephalic and atraumatic. Eyes: General: Right eye: No discharge. Left eye: No discharge. Extraocular Movements: Extraocular movements intact. Cardiovascular: Rate and Rhythm: Tachycardia present. Rhythm irregular. Heart sounds: No murmur heard. Pulmonary: Effort: Pulmonary effort is normal. No respiratory distress. Comments: Right lower lung field with crackles Skin: General: Skin is warm. Neurological: Mental Status: She is alert. Psychiatric: Mood and Affect: Mood normal. bilateral lower extremities without edema .CT CHEST W/O CONTRAST Narrative: EXAM DESCRIPTION: CT CHEST W/O CONTRAST REASON FOR STUDY: Pneumonia discovered on CT abdomen and pelvis yesterday the right lower lobe TECHNIQUE: CT scan of the chest performed without intravenous contrast using helical scanning technique. Reconstructed coronal and sagittal MPR images reviewed. All images stored on PACS. Automated exposure control was used as a dose optimization technique for this examination. COMPARISON: CT scan prior day FINDINGS: The sensitivity for detection of solid visceral lesions is diminished without the use of intravenous contrast. LUNGS: Extensive consolidation is noted occupying much of the right lower lobe, and some of the posterior aspect of the right upper lobe. Appearance is compatible with bronchopneumonia. The left lung appears clear. PLEURA: There is no evidence of pleural effusion for pneumothorax. MEDIASTINUM/SANJUANITA: Mediastinal lymphadenopathy is noted. Precarinal 1.2 x 2.1 cm lymph node is noted on axial image 40. There is some fullness within the right hilar region, without definitive lymphadenopathy, not well assessed in the absence of IV contrast. No axillary, supraclavicular, internal mammary, pericardiophrenic or retrocrural lymphadenopathy is present. HEART: Heart is enlarged. Atherosclerotic calcifications of the coronary arteries is present. Mitral valve calcifications are present. Proximal aspects of the great vessels are within normal limits in size. Mild atherosclerotic calcification of the aortic arch present. VASCULATURE: As above AXILLA: No adenopathy. CHEST WALL: No masses. No subcutaneous air. HARDWARE/LINES/TUBES: None. UPPER ABDOMEN: The liver demonstrates geographic decreased attenuation. Imaged upper abdominal contents appear otherwise unremarkable. MUSCULOSKELETAL: Healed anterior left 2nd and 3rd rib fractures are noted. Mild osteoarthritic changes of the spine are present. OTHER: No other significant abnormality. THIS IS AN ELECTRONICALLY VERIFIED FINAL REPORT 06/10/2021 2:28 PM - Electronically signed by Ricky Pierce M.D. AT: AT Report ID: [id number] Reading Location: [id number] Impression: IMPRESSION: Extensive consolidation occupying much of the right lower lobe with a small amount consolidation right upper lobe, compatible bronchopneumonia. Follow-up CT scan 6-8 weeks after treatment is recommended to ensure resolution. Lymphadenopathy within mediastinum, likely reactive. Evidence for fatty infiltration liver. .EKG 12 LEAD Result Date: 06/10/2021 Atrial fibrillation with rapid ventricular response Diffuse ST-T abnormality may be due to myocardial ischemia or non specific Comparison Summary: No serial comparison made Summary: Abnormal ECG Confirmed by Senthil Avilez [id number] on 06/10/2021 1:58:13 PM Assessment and Plan See Diagnoses, Orders, Follow-up, and Instructions Diagnoses and all orders for this visit: Pneumonia of right lower lobe due to infectious organism - CT CHEST W/O CONTRAST; Future Atrial fibrillation, unspecified type (HCC) - ADULT TRANS THORACIC ECHO 2D COMPLETE; Future Other orders - losartan (COZAAR) 25 MG Tablet - dilTIAZem (CARDIZEM CD) 120 MG CAPSULE SR 24 HR; Take 1 Capsule by mouth daily. Reviewed with patient last imaging and ekg, patient is still tachycardic, denies symptoms of dizziness or chest pain. Worked today. Will add cardizem for rate control of atrial fibrillation ECHO to make sure EF is preserved. Discussed if any chest pain, increased sob or feeling ill go to ER rtc in 1 week for recheck documented in this encounter Plan of Treatment Upcoming Encounters Date Type Department Care Team (Late st Contact Info) Description 10/29/2024 9:30 AM SALT LIFTER Office Visit [facility] - [facility] [address] [place] [address] Bhargavi Morel, PAC [address] [place] [address] documented as of this encounter Procedures Procedure Name Priority Date/Time Associated Diagnosis Comments ADULT TRANS THORACIC ECHO 2D COMPLETE Routine 07/01/2021 12:00 AM CDT Atrial fibrillation, unspecified type (HCC) documented in this encounter Results * CT CHEST W/O CONTRAST (08/10/2021 10:35 AM SALT LIFTER) Anatomical Region Laterality Modality Chest N/A Computed Tomogra phy 08/11/2021 9:06 AM SALT LIFTER Impressions 08/11/2021 9:08 AM SALT LIFTER IMPRESSION: ?? 1. ?? Complete or near complete resolution of the bronchial pneumonia of the right lower and right upper lobe. 2. ?? Ground-glass opacities of the lungs that are similar. ??Similar pleuroparenchymal opacities. 3. ?? Similar mildly prominent lymph nodes of the chest. ??Again these may be reactive. ??Continued follow-up recommended in 3 months. Narrative 08/11/2021 9:08 AM SALT LIFTER EXAM DESCRIPTION: ?? CT CHEST W/O CONTRAST [...] 9:06 AM - Electronically signed by ??Gordy Parekh M.D. JS: BRADY D: ??08/11/2021 9:06 AM T: ??08/11/2021 9:06 AM Report ID: [id number] Reading Location: ??[id number] Procedure Note Gordy Parekh, DO - 08/11/2021 [...] Gordy Parekh M.D. JS: BRADY Report ID: [id number] Reading Location: [id number] IMPRESSION: 1. Complete or near complete resolution of the bronchial pneumonia of the right lower and right upper lobe. 2. Ground-glass opacities of the lungs that are similar. Similar pleuroparenchymal opacities. 3. Similar mildly prominent lymph nodes of the chest. Again these may be reactive. Continued follow-up recommended in 3 months. Vania Fritcher [facility] IM CT ORDERABLES Final Result * ADULT TRANS THORACIC ECHO 2D COMPLETE (07/01/2021 12:00 AM CDT) LV EF(estimated)% 53 % SCAN Anatomical Region Laterality Modality CARDIO N/A Other 07/01/2021 [facility]AB[facility] Jennifer l Result documented in this encounter Visit Diagnoses Diagnosis Pneumonia of right lower lobe due to infectious organism- Primary Atrial fibrillation, unspecified type (HCC) Pneumonia of right lower lobe due to infectious organism documented in this encounter Care Teams Degreaser Operator Relationship Specialty Start Date End Date Jovita Bermudez MD [address] [place] [address] PCP - General Family Medicine 11/30/20 07/21/23 documented as of this encounter
--- OUTSIDE RECORDS SUMMARY | 2024-08-30 18:50 | XMS_ITS | Encounter Summary ---
Author Organization [facility] Address [address] [place] [address] Phone Care Team Providers Care Compliance Lead Name Role Phone Jovita Paula MD Primary Care Provider [phone] Reason for Visit * Reason Onset Date Comments Anticoagulation Monitoring 08/23/2022 Encounter Details Date Type Department Care Team (Late st Contact Info) Description 08/23/2022 Telephone [facility] - Anticoagulation [facility] [address] [place] [address] Jovita Paula MD [address] [place] [address] Anticoagulation Monitoring Social History Tobacco Use Types Packs/Day Years [...] as of this encounter Miscellaneous Notes * Addendum Note - Jovita Puala MD - 09/04/2022 11:51 AM CSTAddended by: JOVITA PAULA on: 09/04/2022 11:51 AM Modules accepted: Orders COAT SEWER * Addendum Note - Radha Yeboah RN - 08/31/2022 5:12 PM CSTAddended by: RADHA YEBOAH on: 08/31/2022 05:12 PM Modules accepted: Orders COAT SEWER * Telephone Encounter - Radha Yeboah RN - 08/31/2022 5:12 PM CST Pended this order COAT SEWER COAT SEWER * Telephone Encounter - Mikala Mathur RN - 08/23/2022 3:55 PM CST Pt states she has been having leg cramps that wake her up almost every night, and would like to make the switch. COAT SEWER * Telephone Encounter - Mikala Mathur RN - 08/23/2022 3:54 PM CST Images from the original note were not included. Jovita Paula MD to [facility] ?? 3:51 PM Patient is tolerating this combination well. Please check if she wants to switch to lipitor if muscle aches have been noted COAT SEWER * Telephone Encounter - Mikala Mathur RN - 08/23/2022 3:14 PM CST Pt states she has an TILE SETTER at Dr. Bro who manages. Pt asks about taking simvastatin and diltiazem together. She received a message from pharmacy that taking concurrently causes muscle issues. Routing to PCP. COAT SEWER * Telephone Encounter - Mikala Mathur RN - 08/23/2022 8:25 AM CST An INR [facility] for this patient was placed on [facility] clinic desk. INR is 2.6 Is this patient managed by cardiology? Does this pt need to be added to clinic? COAT SEWER documented in this encounter Plan of Treatment Upcoming Encounters Date Type Department Care Team (Late st Contact Info) Description 10/29/2024 9:30 AM FUR COAT SEWER Office Visit [facility] - Family Medicine [facility] [address] [place] [address] Bhargavi Morel [facility] [address] [place] [address] documented as of this encounter Visit Diagnoses Not on filedocumented in this encounter Additional Health Concerns Assessment Noted Time PHQ-9 Depression Total Score: 0 05/04/20 22 1:35 PM CDT documented as of this encounter Care Teams Compliance Lead Relationship Specialty Start Date End Date Jovita Paula MD [address] [place] [address] PCP - General Family Medicine 11/30/20 07/21/23 documented as of this encounter
--- OUTSIDE RECORDS SUMMARY | 2024-08-30 18:50 | XMS_ITS | Encounter Summary ---
Author Organization [facility] Address [address] [place] [address] Phone Care Team Providers Care Economic Development Director Name Role Phone Jovita Bermudez MD Primary Care Provider [phone] Reason for Visit * Reason Comments Follow-up Wants Tramadol Encounter Details Date Type Department Care Team ([facility] st Contact Info) Description 05/04/2021 1:20 PM CDT Office Visit [facility] - Family [facility] [address] [place] [address] Jovita Bermudez MD [address] [place] [address] Encounter for immunization (Primary Dx); Permanent atrial fibrillation (HCC); Pain and swelling of right knee; Type 2 diabetes mellitus without complication, without [...] Sign Reading Time Taken Comments Blood Pressure 118/82 05/04/2021 1:08 PM CDT Pulse 79 05/04/2021 1:08 PM CDT Temperature 36.8 ??C (98.2 ??F) 05/04/2021 1:08 PM CD T Respiratory Rate 18 05/04/2021 1:08 PM CDT Oxygen Saturation 95% 05/04/2021 1:08 PM CDT Inhaled Oxygen Concentration - - Weight 100.5 kg (221 lb 8 oz) 05/04/2021 1:08 PM CDT Height 165.1 cm (5' 5 ) 05/04/2021 1:08 PM CDT Body Mass Index 36.86 05/04/2021 1:08 PM CDT documented in this encounter Progress Notes * Nurys Esposito MA - 05/04/2021 1:20 PM CDT Tressa Myers, 66 y.o., female is here for Follow-up (Wants Tramadol) Medication Refills: Patient reports/denies need for medication [...] MD furosemide (LASIX) 40 MG Tablet Take 1 Tablet by mouth daily. 01/19/21 Yes Jovita Bermudez MD gabapentin (NEURONTIN) 600 [...] 100 MG TABLET SR 24 HR Take 1.5 Tablets by mouth daily. 01/19/21 Yes Jovita Bermudez MD mupirocin (BACTROBAN) 2 % Ointment APPLY TO OPEN SORES ON ARMS THREE TIMES DAILY FOR 1 WEEK 11/23/20Yes Provider, MD Homero PARoxetine (PAXIL) 40 MG Tablet Take 1 Tablet by mouth daily. 01/19/21 Yes Jovita Bermudez MD simvastatin (ZOCOR) 40 MG Tablet Take 1 tablet by mouth once daily 03/09/21 Yes Jovita Bermudez MD SITagliptin (JANUVIA) 100 MG Tablet Take 1 Tablet by mouth daily. 01/19/21 Yes Jovita Bermudez MD traMADol (ULTRAM) 50 MG Tablet Take 1 Tablet by mouth every 6 hours as needed for Moderate or more severe pain. 03/17/21 Harry Howell MD warfarin (COUMADIN) 2 MG Tablet Take [...] (2 - Td or Tdap) 04/03/2016 ??? Pneumococcal Immunization (65+ years) (2 of 2 - PPSV23) 01/09/2020 ??? Influenza Immunization (1) 04/27/2021 Orders Pended: yes The following BPA's have been addressed with the patient today: Flu * Lo Bray RMA - 05/04/2021 1:20 PM CDT Tressa presents today for immunization/ injection of flu vaccine and prevnar 13 ordered today 05/04/21 by Jovita. It was administered to patient without incident. Patient tolerated it well. See immunizations/injections activity. * Jovita Bermudez MD - 05/04/2021 1:20 PM CDT Right knee pain- celebrex worked well. However she is on coumadin as well as on paxil which increases risk of bleeding. She has never found tylenol to be helpful. States it was initially prescribed by her ortho. DM- BS around 150. Last A1c was 7.3 Wonders if she can get a handicapped parking placard, she stays quite active at her daughters tea room but sometimes will [place] around parking lots to find closer parking. 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 Atrial fibrillation (HCC) ??? Congestive heart failure (CHF) (HCC) ??? Diabetes (HCC) ??? Hypertension ??? Thyroid activity decreased Allergies Allergen Reactions ??? Cefazolin Rash and Shortness of Breath ??? Lisinopril Other (see Comments) PHYSICAL EXAM Vitals: 05/04/21 1308 BP: 118/82 BP Location: Left Arm BP Position: Sitting BP Cuff Size: Large Pulse: 79 Resp: 18 Temp: 98.2 ??F (36.8 ??C) TempSrc: Temporal SpO2: 95% Weight: 221 lb 8 oz (100.5 kg) Height: 5' 5 (1.651 m) Body mass index is 36.86 kg/m??. General appearance: alert, no distress, cooperative, appears stated age Lungs: no acute distress, clear to auscultation bilaterally Heart: regular rate and rhythm, S1, S2 normal, no murmur, click, rub or gallop Abdomen: soft, non-tender. Bowel sounds normal. No masses, no organomegaly Extremities: extremities normal, atraumatic, no cyanosis or edema ASSESSMENT/PLAN Diagnoses and all orders for this visit: Encounter for immunization - INFLUENZA VACCINE GREATER THAN 3 QUAD IM - PNEUMOCOCCAL VACCINE (PCV-13) Permanent atrial fibrillation (HCC) Pain and swelling of right knee - traMADol (ULTRAM) 50 MG Tablet; Take 1 Tablet by mouth every 6 hours as needed for Moderate or more severe pain. Type 2 diabetes mellitus without complication, without long-term current use of insulin (HCC) - CMP (COMPREHENSIVE METABOLIC PANEL); Future - HEMOGLOBIN A1C W/ ESTIMATED GLUCOSE; Future Other orders - INFLUENZA VACCINE QUAD IM - INFLUENZA (>3) IMMUNIZATION QUESTIONS - metoprolol Succinate (TOPROL-XL) 100 MG TABLET SR 24 HR; Take 2 Tablets by mouth daily. - furosemide (LASIX) 40 MG Tablet; Take 0.5 Tablets by mouth daily. - Cancel: PCV-13 IMMUNIZATION QUESTIONS - PCV-13 IMMUNIZATION QUESTIONS continue current meds. She is in sinus rhythm- if coumadin is discontinued we can discuss getting back on celebrex. Until then use tramadol Declines handicapped parking at this time, no assistive devices, CXR or ECHO findings to support Jovita Bermudez MD documented in this encounter Plan of Treatment Upcoming Encounters Date Type Department Care Team (Late st Contact Info) Description 10/29/2024 9:30 AM SUMO WRESTLER Office Visit [facility] - [facility] [address] [place] [address] Bhargavi Morel, PAC [address] [place] [address] documented as of this encounter Results * (ABNORMAL) HEMOGLOBIN A1C W/ ESTIMATED GLUCOSE (08/10/2021 9:56 AM SUMO WRESTLER) HGB-A1C 7.6(H) 4.0 - 6.0 % 08/10/2021 12:29 PM SUMO WRESTLER [facility] Est Average Glucose 171.4 mg/dL 08/10/2021 12:29 PM SUMO WRESTLER [facility] Blood Venipuncture / Unknown 08/10/2021 9:56 AM SUMO WRESTLER 08/10/2021 9:56 AM SUMO WRESTLER Narrative [facility] - 08/10/2021 12:29 PM SUMO WRESTLER HEMOGLOBIN A1C: DIABETIC PATIENTS: WELL-CONTROLLED: ?? 6.2 - 7.0 INTERMEDIATE WELL-CONTROLLED: ??7.0 - 9.0 POORLY-CONTROLLED: ??>9.0 Jovita Bermudez MD CHEMISTRY ORDERABLES Final Result [facility] [address] [place] [address] * (ABNORMAL) CMP (COMPREHENSIVE METABOLIC PANEL) (08/10/2021 9:56 AM SUMO WRESTLER) SODIUM 135(L) 136 - 144 mmol/L 08/10/2021 12:37 PM SUMO WRESTLER [facility] POTASSIUM 4.4 3.5 - 5.1 mmol/L 08/10/2021 12:37 PM SUMO WRESTLER [facility] CHLORIDE 98(L) 100 - 110 mmol/L 08/10/2021 12:37 PM [facility] CO2, VENOUS 25 22 - 32 mmol/L 08/10/2021 12:37 PM [facility] ANION GAP 16.4 8.0 - 20.0 mmol/L 08/10/2021 12:37 PM [facility] GLUCOSE 180(H) 70 - 99 mg/dL 08/10/2021 12:37 PM [facility] BUN 19 8 - 23 mg/dL 08/10/2021 12:37 PM [facility] CREATININE, BLOOD 0.68 0.60 - 1.10 mg/dL 08/10/2021 12:37 PM [facility] BUN/CREATININE RATIO 28(H) 12 - 20 ratio 08/10/2021 12:37 PM [facility] TOTAL PROTEIN 7.5 6.0 - 8.3 g/dL 08/10/2021 12:37 PM [facility] ALBUMIN 4.1 3.5 - 5.2 g/dL 08/10/2021 12:37 PM [facility] Comment: The colormetric methods used for the determination of Albumin may lead to falsely elevated test results in patients suffering from renal failure or insufficiency due to interference with other proteins. A/G RATIO 1.2 1.0 - 2.0 08/10/2021 12:37 PM [facility] CALCIUM 9.4 8.9 - 10.3 mg/dL 08/10/2021 12:37 PM [facility] T BILI 0.4 <=1.2 mg/dL 08/10/2021 12:37 PM [facility] SGOT (AST) 29 <=32 U/L 08/10/2021 12:37 PM [facility] SGPT (ALT) 27 <=41 U/L 08/10/2021 12:37 PM [facility] ALKALINE PHOSPHATASE 105 35 - 105 U/L 08/10/2021 12:37 PM [facility] GFR, EST. NONAFRICAN >60 >=60 08/10/2021 12:37 PM SUMO WRESTLER [facility] GFR, EST. >60 >=60 021 12:37 PM SUMO WRESTLER [facility] Comment: Creatinine Clearance is the preferred criteria for selecting drug dose adjustments in renally impaired patients. ??The GFR is provided as additional pertinent clinical information. GFR is reported in mL/min/1.73 sq m. IS THE PATIENT REQUIRED TO BE FASTING? No 08/10/2021 12:37 PM SUMO WRESTLER [facility] Blood Venipuncture / Unknown 08/10/2021 9:56 AM SUMO WRESTLER 08/10/2021 9:56 AM SUMO WRESTLER Jovita Bermudez MD CHEMISTRY ORDERABLES Final Result [facility] [address] [place] [address] documented in this encounter Visit Diagnoses Diagnosis Encounter for immunization- Primary Need for other specified prophylactic vaccination against single bacterial disease Permanent atrial fibrillation (HCC) Atrial fibrillation Pain and swelling of right knee Type 2 diabetes mellitus without complication, without long-term current use of insulin (HCC) documented in this encounter Care Teams Economic Development Director Relationship Specialty Start Date End Date Jovita Bermudez MD [address] [place] [address] PCP - General Family Medicine 11/30/20 07/21/23 documented as of this encounter
--- OUTSIDE RECORDS SUMMARY | 2024-08-30 18:50 | XMS_ITS | Encounter Summary ---
Author Organization [facility] Address [address] [place] [address] Phone Care Team Providers Care Plc Engineer Name Role Phone Jovita Bermudez MD Primary Care Provider [phone] Reason for Referral * Radiology Services (Routine) - Closed Specialty Diagnoses / Procedures Referred By Contac t Referred To Contact Radiology Diagnoses Encounter for screening mammogram for breast cancer Procedures ZUNILDA SCREENING BILATERAL DIGITAL W CAD W Jovita Ramsay MD [address] [place] [address] Phone: tel: fax: Referral ID Status Reason Start Date Expiration Date Visits Re quested Visits Authorized [id number] Closed 06/14/2022 1 1 Reason for Visit * Reason Onset Date Comments Patient Outreach 05/25/2022 Breast cancer s creening Encounter Details Date Type Department Care Team (Late st Contact Info) Description 05/25/2022 Patient Outreach [facility] - [facility] [address] [place] [address] Jovita Bermudez MD [address] [place] [address] Patient Outreach (Breast cancer screening) Social History Tobacco Use Types [...] Miscellaneous Notes * Telephone Encounter - Lo Mitchell RMA - 05/25/2022 3:57 PM CDT Pt due for mammogram. Please sign order. Thank you! documented in this encounter Plan of Treatment Upcoming Encounters Date Type Department Care Team (Late st Contact Info) Description 10/29/2024 9:30 AM ANALYTICS DIRECTOR Office Visit [facility] - [facility] [address] [place] [address] Bhargavi Morel PAC [address] [place] [address] Scheduled Orders Name Type Priority Associated Diagnoses Orde r Schedule ZUNILDA SCREENING BILATERAL DIGITAL W CAD W LYN Imaging Routine Encounter for screening mammogram for breast cancer Expected: 08/14/2022, Expires: 08/25/2022 documented as of this encounter Visit Diagnoses Diagnosis Encounter for screening mammogram for breast cancer- Primary documented in this encounter Additional Health Concerns Assessment Noted Time PHQ-9 Depression Total Score: 0 05/04/20 1:35 PM CDT documented as of this encounter Care Teams Plc Engineer Relationship Specialty Start Date End Date Jovita Bermudez MD [address] [place] [address] PCP - General Family Medicine 11/30/20 07/21/23 documented as of this encounter
--- OUTSIDE RECORDS SUMMARY | 2024-08-30 18:50 | XMS_ITS | Encounter Summary ---
Author Organization [facility] Address [address] [address] Phone Care Team Providers Care Tariff Supervisor Name Role Phone Jovita Bermudez MD Primary Care Provider [phone] Reason for Visit * Reason Comments Flank Pain * Auth/Cert Specialty Diagnoses / Procedures Referred By Contac t Referred To Contact Diagnoses Hyponatremia Acute pyelonephritis Pneumonia of right lower lobe due to infectious organism Sepsis (HCC) Sepsis without acute organ dysfunction, due to unspecified organism (HCC) Referral ID Status Reason Start Date Expiration Date Visits Re quested Visits Authorized [id number] 1 1 Encounter Details Date Type Department Care Team (Latest Contact Info) Description 06/09/2021 1:32 PM CDT - 06/11/2021 3:00 PM CDT Hospital Encounter [facility] [address] [place] [address] Rob Martinez PENOLOGY TEACHER, AVIONICS SYSTEMS REPAIRER Paolo Jang, DO [address] [place] [address] Yamil Benoit MD [address] [place] [address] Tito Tirado APRN, [employer]ION[employer] SYSTEMS REPAIRER [address] [place] [address] Acute pyelonephritis Discharge Disposition: Discharged to home or Selfcare [...] Sign Reading Time Taken Comments Blood Pressure 124/81 06/11/2021 2:30 PM CDT Pulse 85 06/11/2021 2:30 PM CDT Temperature 36.7 ??C (98 ??F) 06/11/2021 2:30 PM CDT Respiratory Rate 18 06/11/2021 2:3 0 PM CDT Oxygen Saturation 94% 06/11/2021 2:30 PM CDT Inhaled Oxygen Concentration - - Weight 98.4 kg (216 lb 14.4 oz) 06/09/2021 8:00 PM CDT Height 165.1 cm (5' 5 ) 06/09/2021 8:00 PM CDT Body Mass Index 36.09 06/09/2021 8:00 PM CDT documented in this encounter Discharge Summaries * Yamil Benoit MD - 06/11/2021 10:33 AM CDT Images from the original note were not included. [facility] DISCHARGE SUMMARY Name: Tressa Myers Age: 66 y.o. : 1955 Attending Physician: Yamil Benoit MD Admission Date/Time: 06/09/2021 Expected Discharge Date: Primary Care Physician: Jovita Bermudez MD Discharging Provider: Yamil Benoit MD INSTRUCTIONS FOR PHYSICIANS ON FOLLOW UP AFTER DISCHARGE: Follow-up Information None Discharge Instructions: Discharge Condition: improved Disposition: Home Diet: Diabetic Diet Activity: activity as tolerated Primary Diagnosis: Acute pyelonephritis Principal Problem: Acute pyelonephritis Active Problems: Sepsis (HCC) Aspiration by without respiratory symptoms Present on Admission: ??? Acute pyelonephritis ??? Sepsis (HCC) ??? Aspiration by without respiratory symptoms Final Diagnoses: RLL CAP - MARKED IMPROVED. Completed 3days of IV ABx. To po levaquin to complete 7 days total., cx NTD. Monitor. procal elevated. Pulmo input as outpt. Pt advised to monitor for red flag symptoms - to return to ER if any of them noted. Pt understands. ?? Sepsis POA - resolved. off IV.f ?? UTI - on levaquin, cx NTD. ?? Hypothyroid ?? HTN - monitor, titrate meds prn. ?? DM - NISS, titrate for optimal goal. ?? Chronic Afib - on tele, cont BB, coumadin. ?? DVT Px ?? DISPO: cont mgmt. Pt agreeable with plan. HOSPITAL COURSE: Tressa Myers was admitted 06/09/2021 with Acute pyelonephritis . As per HPI -- 66 y.o. female chronic atrial fibrillation on anticoagulation with warfarin, CHF, diabetes type 2, hypertension, hypothyroidism, who presented to [facility] with complaints of right flank pain. ?? Patient reports she initially had urinary frequency and was seen by her PCP prescribed oral antibiotics. Reports she took half the dose of the antibiotics and just did not feel well. Had persistent nausea with vomiting, decreased appetite, right flank pain, and subjective fevers therefore she decided to go to the emergency room to be checked out. ?? Laboratory data revealed a sodium of 126, chloride 88, BUN 27, lactic acid 2.1, WBC 15.66, INR 2.2,otherwise unremarkable. ?? CT abdomen and pelvis showed a right lower lobe consolidation consistent with pneumonia or aspiration, cardiomegaly, extensive colonic diverticulosis without evidence of acute diverticulitis, severe atherosclerotic disease. ?? On admit started on levaquin for pyelo and RLL CAP. No pyelo on subsequent 3exam. Pain in right abd radiating from RLL extensvie pneumonia. Pt Marked improved karlene day 3. Pain resolving. Completed 3days of IV ABx. To po levaquin to compelte7 days total., cx NTD. Monitor. procal elevated. Pulmo input as outpt. Pt advsied to monitor for red flagsymptoms - to return to ER if any of them noted. Pt understands. close f/u with PCP and pulmo. Pt is thankful for care. Eager to go home. Surgeries performed during stay: * No surgery found * Consults: Exam Day of Discharge: Temp Av.1 ??F (36.7 ??C) Min: 98.1 ??F (36.7 ??C) Max: 98.2 ??F (36.8 ??C) BP Min: 91/67 Max: 118/79 Pulse Av.7 Min: 68 Max: 108 Heart Rate (Monitor) Av Min: 71 Max: 75 Resp Av.3 Min: 15 Max: 20 SpO2 Av.6 % Min: 91 % Max: 95 % BMI: Body mass index is 36.09 kg/m??. Exam: Constitutional: Patient oriented to person, place, and time. She appears well- developed??and well-nourished. No distress. Head: Normocephalic??and atraumatic. Mouth/Throat: Oropharynx is clear and moist. Mucous membranes are moist. Face symmetric.?? Eyes: Conjunctivae??and EOM??are normal. Pupils are equal, round, and reactive to light. Neck: Normal range of motion. Neck supple. Cardiovascular: Regular rhythm, normal heart sounds??and intact distal pulses. ??Exam reveals no gallop??and no friction rub. ?? No murmur??heard. Pulmonary/Chest: Effort normal??and breath sounds normal. No respiratory distress. She has no wheezes. She has no rales. Some coarse BS on right. Abdominal: Soft. Bowel sounds are normal. She exhibits no distension. There is no tenderness. Thereis no rebound??and no guarding. right sided tenderness - abd/flank - much better.. Musculoskeletal: Normal range of motion. She exhibits no edema, tenderness??or deformity. Lymphadenopathy: ?She has no cervical adenopathy. Neurological: She is alert??and oriented to person, place, and time. CN and motor intact. Skin: Skin is warm??and dry. No rash??noted. She is not diaphoretic. No erythema. ?? Psychiatric: She has a normal mood and affect. Her behavior is normal. Judgment??and thought content??normal. Lab / Imaging Review: Lab Results Component Value Date WBC 10.45 06/10/2021 HEMOGLOBIN 12.5 06/10/2021 HEMATOCRIT 38.4 06/10/2021 PLATELETCNT 244 06/10/2021 MCV 100.0 (H) 06/10/2021 Lab Results Component Value Date SODIUM 134 (L) 06/10/2021 POTASSIUM 3.6 06/10/2021 CHLORIDE 100 06/10/2021 CO2VEN 22 06/10/2021 ANIONGAP 15.6 06/10/2021 GLUCOSE 132 (H) 06/10/2021 BUN 19 06/10/2021 CREATININE 0.58 (L) 06/10/2021 BCRATIO8 33 (H) 06/10/2021 TOTALPROTEIN 7.6 06/09/2021 ALBUMIN 3.1 (L) 06/09/2021 CALCIUM 8.2 (L) 06/10/2021 TBIL 0.6 06/09/2021 SGOTAST 48 (H) 06/09/2021 SGPTALT 27 06/09/2021 ALKALINEPHO 84 06/09/2021 GFRNA >60 06/10/2021 GFRA >60 06/10/2021 Lab Results Component Value Date GLUCOSEPOCT 153 (H) 06/11/2021 Lab Results Component Value Date INR 2.3 (H) 06/11/2021 PTP 24.3 (H) 06/11/2021 Lab Results Component Value Date HGBA1C 7.1 (H) 06/09/2021 No results found for: [id number] Lab Results Component Value Date TROPONINI <0.300 06/09/2021 No results found for: FERRITIN No components found for: FOLATE No results found for: PHARTERIAL, PO2ART, PLH9OCJ, CO2ART, O2ART Lab Results Component Value Date LACTICA 1.4 06/09/2021 XR CHEST SINGLE VIEW PORTABLE Result Date: 06/09/2021 IMPRESSION: 1. Known right basilar pneumonia is largely obscured by the right heart border on this examination. There may be minimal infiltrate in the inferior right upper lobe. 2. No effusion or pneumothorax. 3. Cardiac silhouette borderline enlarged, accentuated by technique and position CT ABDOMEN PELVIS W/ CONTRAST Result Date: 06/09/2021 IMPRESSION: 1. Right lower lobe consolidation consistent with pneumonia or aspiration. 2. Cardiomegaly. 3. Extensive colonic diverticulosis without evidence of acute diverticulitis. 4. Severe atherosclerotic disease of the abdominal aorta and bilateral iliacs. 5. Mild hepatic steatosis. CT CHEST W/O CONTRAST Result Date: 06/10/2021 IMPRESSION: Extensive consolidation occupying much of the right lower lobe with a small amount consolidation right upper lobe, compatible bronchopneumonia. Follow-up CT scan 6-8 weeks after treatmentis recommended to ensure resolution. Lymphadenopathy within mediastinum, likely reactive. Evidence for fatty infiltration liver. DISCHARGE MEDICATION LIST: Medication List CONTINUE taking these medications Blood Glucose Monitoring Suppl Judy glDiagnosis: Diabetes type 2 Blood testing frequency: once a day ASK your doctor about these medications Ascorbic Acid 500 MG Chew aspirin EC 81 MG Tbec celecoxib 200 MG Caps Commonly known as: CeleBREX TAKE ONE CAPSULE BY MOUTH EVERY DAY clobetasol 0.05 % Gel Commonly known as: TEMOVATE * Lasix 20 MG Tabs Generic drug: furosemide * furosemide 40 MG Tabs Commonly known as: LASIX Take 0.5 Tablets by mouth daily. gabapentin 600 MG Tabs Commonly known as: NEURONTIN Take 1 Tablet by mouth daily. Glucose Blood Strp Diagnosis: Diabetes type 2 Blood testing frequency: once a day Jardiance 25 MG Tabs Generic drug: empagliflozin TAKE ONE TABLET BY MOUTH EVERY DAY levothyroxine 75 MCG Tabs Commonly known as: SYNTHROID Take 1 Tablet by mouth daily. losartan 50 MG Tabs Commonly known as: COZAAR Take 1 Tablet by mouth daily. metFORMIN 1000 MG Tabs Commonly known as: GLUCOPHAGE Take 1 Tablet by mouth 2 times daily. metoprolol Succinate 100 MG Tab-sr-24hr Commonly known as: TOPROL-XL Take 2 Tablets by mouth daily. mupirocin 2 % Oint Commonly known as: BACTROBAN nitrofurantoin (macrocrystal-monohydrate) 100 MG Caps Commonly known as: MACROBID Take 1 Capsule by mouth 2 times daily for 7 days. PARoxetine 40 MG Tabs Commonly known as: PAXIL TAKE ONE TABLET BY MOUTH EVERY DAY simvastatin 40 MG Tabs Commonly known as: ZOCOR Take 1 tablet by mouth once daily SITagliptin 100 MG Tabs Commonly known as: JANUVIA Take 1 Tablet by mouth daily. traMADol 50 MG Tabs Commonly known as: ULTRAM TAKE ONE TABLET BY MOUTH EVERY 6 HOURS NEEDED FOR MODERATE OR MORE SEVERE PAIN VITAMIN D PO warfarin 2 MG Tabs Commonly known as: COUMADIN * This list has 2 medication(s) that are the same as other medications prescribed for you. Read thedirections carefully, and ask your doctor or other care provider to review them with you. Time spent on interview, examination, final orders, recommendations, and care coordination for thishospital discharge: Greater than 30 minutes spent in coordinating care Thank you very much for allowing the [facility] Adult Hospitalist Service to participate in the care of this patient. If you have any questions, please don't hesitate to call. Signed: Yamil Benoit MD, 06/11/2021, 10:33 AM CDT documented in this encounter Discharge Instructions * Discharge Instructions* Yamil Benoit MD - 06/11/2021 10:40 AM CDT Images from the original note were not included. Treating Pneumonia Pneumonia is an infection of one or both of the lungs. Pneumonia: ?? Is usually caused by either a virus or a bacteria ?? Can be very serious, especially in infants, young children, and older adults. It???s also serious for those with other long-term health problems or weakened immune systems. ?? Is sometimes treated at home and sometimes in the hospital Antibiotic medicines Antibiotics may be prescribed for pneumonia caused by bacteria, or the influenza (flu) virus. They may be pills (oral medicines), or shots (injections). Or they may be given by IV (intravenously) into a vein. If you are taking oral medicines at home: ?? Fill your prescription and start taking your medicine as soon as you can. ?? You will likely start to feel better in a day or 2, but don???t stop taking the antibiotic. ?? Use a pill organizer to help you remember to take your medicine. ?? Let your healthcare provider know if you have side effects. ?? Take your medicine exactly as directed on the label. Talk to your provider or pharmacist if you have any questions.?? To relieve symptoms There are many medicines that can help relieve symptoms of pneumonia. Some are prescription and some are gzkd-ayo-mibdbak.Your healthcare provider may recommend: ? Acetaminophen or ibuprofen to lower your fever and to lessen headache or other pain ? Cough medicine to loosen mucus or to reduce coughing ??Make sure you check with your healthcare provider or pharmacist before taking any lugp-ljv-jaaiese medicines. ?? Special treatments If you are hospitalized for pneumonia, you may have other therapies, including: ? Inhaled medicines to help with breathing or chest congestion ? Supplemental oxygen to increase low oxygen levels ?? Drink fluids and eat healthy You should eat healthy to help your body fight the infection. Drinking a lot of fluids helps to replace fluids lost from fever and to loosen mucus in your chest. ? Diet. Make healthy food choices, including fruits and vegetables, lean meats and other proteins, 100% whole grain and low- or no-fat dairy products. ? Fluids. Drink at least 6 to 8 tall glasses a day. Water and 100% fruit or vegetable juice are best. ?? Get plenty of rest and sleep You may be more tired than usual for a while. It is important to get enough sleep at night. It???s also important to rest during the day. Talk with your healthcare provider if coughing or other symptoms are interfering with your sleep. Preventing the spread of germs The best thing you can do to prevent spreading germs is to wash your hands often. You should: ? Rub your hands with soap and water for 20 to 30 seconds. ? Clean in between your fingers, the backs of your hands, and around your nails. ? Dry your hands on a separate towel or use paper towels. ??You should also: ? Keep alcohol-based hand newspaper photojournalist nearby and use often. ? Make sure you also clean surfaces that you touch. Use a product that kills all types of germs. ? Stay away from others until you are feeling better. ? Talk to your doctor about getting a flu and pneumonia shot. ? Replace your toothbrush. ? Stop smoking and stay away from others who are smoking. ??If hospitalized, when will I be ready to go home? ? Fever resolved or improved ? Shortness of breath improved ? Additional need for oxygen through nose is resolved ? Drinking fluids ? Feeling better than when you were admitted ? You will very likely still have a cough at discharge ? When to Call Your Healthcare Provider ?? Symptoms get worse ?? Fever continues ?? Shortness of Breath gets worse ?? Lips or fingers are bluish in color ?? start having diarrhea ?? side effects from your medicine PLEASE CHECK YOUR INR LEVELS on 06/13 and monitor closely than you usually do while on antibiotics. documented in this encounter Medications at Time of Discharge Ascorbic Acid 500 MG Chewable Tablet Take 500 mg by mouth. aspirin EC 81 MG Tablet Delayed Response Take 81 mg by mouth. furosemide (LASIX) 40 MG Tablet Take 0.5 Tablets by mouth daily. 90 Tablet 1 05/04/2021 Glucose Blood StripIndications :Type 2 diabetes mellitus without complication, without long-term current use of insulin ([facility]) Diagnosis: Diabetes type 2 Blood testing frequency: once a day 100 Strip 3 02/23/2021 metoprolol Succinate (TOPROL-XL) 100 MG TABLET SR [...] complication, without long-term current use of insulin ([facility]) glDiagnosis: Diabetes type 2 Blood testing frequency: once a day 1 Each 02/23/2021 3 celecoxib (CeleBREX) 200 MG Capsule TAKE ONE CAPSULE BY MOUTH EVERY DAY 30 Capsule 04/18/2021 1 clobetasol (TEMOVATE) 0.05 % Gel 11/24/2020 4 gabapentin (NEURONTIN) 600 MG Tablet Take 1 Tablet by mouth daily. 270 Tablet 5 04/04/2021 2 Jardiance 25 MG Tablet TAKE ONE TABLET BY MOUTH EVERY DAY 30 Tablet 2 02/25/2021 1 levoFLOXacin (LEVAQUIN) 750 MG Tablet Take 1 Tablet by mouth daily for 4 days. 4 Tablet 06/12/2021 1 levothyroxine (SYNTHROID) 75 MCG Tablet Take 1 Tablet by mouth daily. 90 Tablet 1 01/19/2021 2 losartan (COZAAR) 50 MG Tablet Take 1 Tablet by mouth daily. 90 Tablet 1 01/19/2021 1 metFORMIN (GLUCOPHAGE) 1000 MG Tablet Take 1 [...] 06/06/2021 1 documented as of this encounter Progress Notes * Yamil Benoit MD - 06/10/2021 4:12 PM CDT [facility] INPATIENT DAILY PROGRESS NOTE Tressa Myers is a 66 y.o. female at Hospital LOS: 1 day Assessment: Active Hospital Problems Diagnosis Date Noted ??? Acute pyelonephritis 06/10/2021 ??? Sepsis (HCC) 06/10/2021 ??? Aspiration by without respiratory symptoms 06/10/2021 Resolved Hospital Problems No resolved problems to display. Vitals: 06/09/21 2200 06/10/21 0708 06/10/21 0810 06/10/21 1420 Temp: 98 ??F (36.7 ??C) 98.3 ??F (36.8 ??C) 98.1 ??F (36.7 ??C) TempSrc: Tympanic Tympanic Tympanic Heart Rate (Monitor): 87 Pulse: (!) 113 89 108 Resp: 20 18 18 BP: 108/71 124/70 91/67 Height: Weight: SpO2: 92% 93% 90% 92% O2 Device: None (Room air) Body mass index is 36.09 kg/m??. I/O last 3 completed shifts: In: 720 [P.O.:720] Out: - Plan: RLL CAP - extensive with pleuritic CP and flank pain - contd levaquin, await cx. Monitor. procal elevated. Pulmo input. toradol prn. Sepsis POA - improving, IV.f UTI - on levaquin, await cx. Hypothyroid HTN - monitor, titrate meds prn. DM - NISS, titrate for optimal goal. Chronic Afib - on tele, cont BB, coumadin. DVT Px DISPO: cont mgmt. Pt agreeable with plan. Subjective: Interval History: Pt seen for f/u. Review of Systems: A 14 point comprehensive review of systems was negative, except as documented in HPI. Objective: Exam: Constitutional: Patient oriented to person, place, and time. She appears well- developed and well-nourished. No distress. Head: Normocephalic and atraumatic. Mouth/Throat: Oropharynx is clear and moist. Mucous membranes are moist. Face symmetric. Eyes: Conjunctivae and EOM are normal. Pupils are equal, round, and reactive to light. Neck: Normal range of motion. Neck supple. Cardiovascular: Regular rhythm, normal heart sounds and intact distal pulses. Exam reveals no gallop and no friction rub. No murmur heard. Pulmonary/Chest: Effort normal and breath sounds normal. No respiratory distress. She has no wheezes. She has no rales. Some coarse BS on right. Abdominal: Soft. Bowel sounds are normal. She exhibits no distension. There is no tenderness. Thereis no rebound and no guarding. right sided tenderness - abd/flank.. Musculoskeletal: Normal range of motion. She exhibits no edema, tenderness or deformity. Lymphadenopathy: She has no cervical adenopathy. Neurological: She is alert and oriented to person, place, and time. CN and motor intact. Skin: Skin is warm and dry. No rash noted. She is not diaphoretic. No erythema. Psychiatric: She has a normal mood and affect. Her behavior is normal. Judgment and thought contentnormal. Lab Results: No results found for: PHARTERIAL, PO2ART, [id number], CO2ART, O2ART Lab Results Component Value Date WBC 10.45 06/10/2021 HEMOGLOBIN 12.5 06/10/2021 HEMATOCRIT 38.4 06/10/2021 PLATELETCNT 244 06/10/2021 MCV 100.0 (H) 06/10/2021 Lab Results Component Value Date SODIUM 134 (L) 06/10/2021 POTASSIUM 3.6 06/10/2021 CHLORIDE 100 06/10/2021 CO2VEN 22 06/10/2021 ANIONGAP 15.6 06/10/2021 GLUCOSE 132 (H) 06/10/2021 BUN 19 06/10/2021 CREATININE 0.58 (L) 06/10/2021 BCRATIO8 33 (H) 06/10/2021 TOTALPROTEIN 7.6 06/09/2021 ALBUMIN 3.1 (L) 06/09/2021 CALCIUM 8.2 (L) 06/10/2021 TBIL 0.6 06/09/2021 SGOTAST 48 (H) 06/09/2021 SGPTALT 27 06/09/2021 ALKALINEPHO 84 06/09/2021 GFRNA >60 06/10/2021 GFRA >60 06/10/2021 Lab Results Component Value Date TROPONINI <0.300 06/09/2021 No components found for: FOLATE Lab Results Component Value Date LACTICA 1.4 06/09/2021 No results found for: [id number] No results found for: FERRITIN Lab Results Component Value Date GLUCOSEPOCT 166 (H) 06/10/2021 EKG: EKG 12 LEAD Result Date: 06/10/2021 Atrial fibrillation with rapid ventricular response Diffuse ST-T abnormality may be due to myocardial ischemia or non specific Comparison Summary: No serial comparison made Summary: Abnormal ECG Confirmed by Senthil Avilez [id number] on 06/10/2021 1:58:13 PM Imaging: XR CHEST SINGLE VIEW PORTABLE Result Date: 06/09/2021 IMPRESSION: 1. Known right basilar pneumonia is largely obscured by the right heart border on this examination. There may be minimal infiltrate in the inferior right upper lobe. 2. No effusion or pneumothorax. 3. Cardiac silhouette borderline enlarged, accentuated by technique and position CT ABDOMEN PELVIS W/ CONTRAST Result Date: 06/09/2021 IMPRESSION: 1. Right lower lobe consolidation consistent with pneumonia or aspiration. 2. Cardiomegaly. 3. Extensive colonic diverticulosis without evidence of acute diverticulitis. 4. Severe atherosclerotic disease of the abdominal aorta and bilateral iliacs. 5. Mild hepatic steatosis. CT CHEST W/O CONTRAST Result Date: 06/10/2021 IMPRESSION: Extensive consolidation occupying much of the right lower lobe with a small amount consolidation right upper lobe, compatible bronchopneumonia. Follow-up CT scan 6-8 weeks after treatmentis recommended to ensure resolution. Lymphadenopathy within mediastinum, likely reactive. Evidence for fatty infiltration liver. By: Yamil Benoit MD, 06/10/2021 4:12 PM CDT documented in this encounter H&P Notes * Tito Tirado, ELIN, AVIONICS SYSTEMS REPAIRER - 06/09/2021 10:57 PM CDT [facility] ADMISSION HISTORY & PHYSICAL HPI: Tressa Myers is a 66 y.o. female chronic atrial fibrillation on anticoagulation with warfarin, CHF, diabetes type 2, hypertension, hypothyroidism, who [facility] with[facility]. Patient reports she initially had urinary frequency and was seen by her PCP prescribed oral antibiotics. Reports she took half the dose of the antibiotics and just did not feel well. Had persistent nausea with vomiting, decreased appetite, right flank pain, and subjective fevers therefore she decided to go to the emergency room to be checked out. Laboratory data revealed a sodium of 126, chloride 88, BUN 27, lactic acid 2.1, WBC 15.66, INR 2.2,otherwise unremarkable. CT abdomen and pelvis showed a right lower lobe consolidation consistent with pneumonia or aspiration, cardiomegaly, extensive colonic diverticulosis without evidence of acute diverticulitis, severe atherosclerotic disease. Admitted for further management. Allergies: is allergic to cefazolin and lisinopril. Home Medications: Prior to Admission Medications Prescriptions Last Dose Informant Patient Reported? Taking? Ascorbic Acid 500 MG Chewable Tablet 06/08/2021 at 1900 Yes Yes Sig: Take 500 mg by mouth. Blood Glucose Monitoring Suppl Device 06/09/2021 at Unknown time No Yes Sig: glDiagnosis: Diabetes type 2 Blood testing frequency: once a day Glucose Blood Strip 06/09/2021 at Unknown time No Yes Sig: Diagnosis: Diabetes type 2 Blood testing frequency: once a day Jardiance 25 MG Tablet 06/08/2021 at 1900 No Yes Sig: TAKE ONE TABLET BY MOUTH EVERY DAY Patient taking differently: Take 25 mg by mouth daily. PARoxetine (PAXIL) 40 MG Tablet 06/08/2021 at 1900 No Yes Sig: TAKE ONE TABLET BY MOUTH EVERY DAY SITagliptin (JANUVIA) 100 MG Tablet 06/08/2021 at 1900 No Yes Sig: Take 1 Tablet by mouth daily. VITAMIN D PO 06/08/2021 at 1900 Yes Yes Sig: Take by mouth daily. aspirin EC 81 MG Tablet Delayed Response 06/08/2021 at 1900 Yes Yes Sig: Take 81 mg by mouth. celecoxib (CeleBREX) 200 MG Capsule No No Sig: TAKE ONE CAPSULE BY MOUTH EVERY DAY Patient not taking: Reported on 05/04/2021 clobetasol (TEMOVATE) 0.05 % Gel 05/10/2021 at Unknown time Yes Yes Sig: APPLY TO NEW LESIONS ON ARMS COVER WITH TAPE THEN WASH OFF IN THE MORNING. REPEAT PROCESS UNTIL LESIONS ARE FLAT THEN USE TWICE A WEEK MA furosemide (LASIX) 40 MG Tablet No No Sig: Take 0.5 Tablets by mouth daily. furosemide (Lasix) 20 MG Tablet 06/02/2021 at Unknown time Yes Yes Sig: Take 20 mg by mouth Every other day. gabapentin (NEURONTIN) 600 MG Tablet 06/08/2021 at 1900 No Yes Sig: Take 1 Tablet by mouth daily. levothyroxine (SYNTHROID) 75 MCG Tablet 06/08/2021 at 0700 No Yes Sig: Take 1 Tablet by mouth daily. losartan (COZAAR) 50 MG Tablet 06/08/2021 at 1900 No Yes Sig: Take 1 Tablet by mouth daily. metFORMIN (GLUCOPHAGE) 1000 MG Tablet 06/08/2021 at 1900 No Yes Sig: Take 1 Tablet by mouth 2 times daily. metoprolol Succinate (TOPROL-XL) 100 MG TABLET SR 24 HR 06/08/2021 at 1900 No Yes Sig: Take 2 Tablets by mouth daily. Patient taking differently: Take 150 mg by mouth daily. mupirocin (BACTROBAN) 2 % Ointment 05/10/2021 at Unknown time Yes Yes Sig: APPLY TO OPEN SORES ON ARMS THREE TIMES DAILY FOR 1 WEEK nitrofurantoin, macrocrystal-monohydrate, (MACROBID) 100 MG Capsule 06/08/2021 at Unknown time No Yes Sig: Take 1 Capsule by mouth 2 times daily for 7 days. simvastatin (ZOCOR) 40 MG Tablet 06/08/2021 at 1900 No Yes Sig: Take 1 tablet by mouth once daily traMADol (ULTRAM) 50 MG Tablet 06/02/2021 at Unknown time No Yes Sig: TAKE ONE TABLET BY MOUTH EVERY 6 HOURS NEEDED FOR MODERATE OR MORE SEVERE PAIN warfarin (COUMADIN) 2 MG Tablet 06/08/2021 at 1900 Yes Yes Sig: Take 1.5 Tablets by mouth. Facility-Administered Medications: None Past Medical History: She has a past medical history of Atrial fibrillation (HCC), Congestive heartfailure (CHF) (HCC), Diabetes (HCC), Hypertension, and Thyroid activity decreased. Surgical History: has a past surgical history that includes hc inj cardiac cath venous bypass graft,1+ and Tubal Ligation. Social History: reports that she has quit smoking. Her smoking use included cigarettes. She has a 70.00 pack-year smoking history. She has never used smokeless tobacco. She reports previous alcohol use. She reports current drug use. Drug: Marijuana. Family History: family history includes Cancer in her father; Congestive Heart Failure in her mother; Hypertension in her mother. Review of Systems: Reports rt flank pain, N/V. Denies lightheaded, dizziness blurred vision. Denies Fever, chills, SOB, cough, sore throat. Denies Chest pain, heart palpitations. Denies abdominal pain, denies constipation, Denies nausea, vomiting, diarrhea, or constipation. Denies LE swelling. Physical Exam: VITALS:Temp Av.4 ??F (37.4 ??C) Min: 98 ??F (36.7 ??C) Max: 100.6 ??F (38.1 ??C) BP Min: 94/63 Max: 116/60 Pulse Av.9 Min: 53 Max: 129 Heart Rate (Monitor) Av.6 Min: 110 Max: 129 Resp Av.8 Min: 15 Max: 26 SpO2 Av.4 % Min: 90 % Max: 100 % No intake/output data recorded. Weight: Wt Readings from Last 1 Encounters: 06/09/21 216 lb 14.4 oz (98.4 kg) General: ill appearing, otherwise, well developed well nourished, alert, oriented and in no acute distress Skin: normal coloration and turgor, no rashes HEENT: normocephalic, atraumatic. Pupils equal, round and reactive to light. Extraocular movements intact. Oronasopharynx pink and moist, no lesion or exudate. Neck: Supple. No JVD, lymphadenopathy thyromegaly or carotid bruits auscultated CVS: RRR, S1/S2 normal, no murmurs, gallops or rubs Chest: overall diminished Abdominal: soft, nontender, nondistended. Positive Bowel sounds, no organomegaly appreciated Extremities: no edema, no clubbing or cyanosis Neuro: Alert and orient x 3. Moves all extremities well. No neurological deficits noted on exam. Gait not tested Data Review: XR CHEST SINGLE VIEW PORTABLE Result Date: 06/09/2021 IMPRESSION: 1. Known right basilar pneumonia is largely obscured by the right heart border on this examination. There may be minimal infiltrate in the inferior right upper lobe. 2. No effusion or pneumothorax. 3. Cardiac silhouette borderline enlarged, accentuated by technique and position CT ABDOMEN PELVIS W/ CONTRAST Result Date: 06/09/2021 IMPRESSION: 1. Right lower lobe consolidation consistent with pneumonia or aspiration. 2. Cardiomegaly. 3. Extensive colonic diverticulosis without evidence of acute diverticulitis. 4. Severe atherosclerotic disease of the abdominal aorta and bilateral iliacs. 5. Mild hepatic steatosis. Lab Results Component Value Date WBC 15.66 (H) 06/09/2021 HEMOGLOBIN 13.8 06/09/2021 HEMATOCRIT 41.7 06/09/2021 PLATELETCNT 294 06/09/2021 MCV 97.7 (H) 06/09/2021 Lab Results Component Value Date SODIUM 126 (L) 06/09/2021 POTASSIUM 4.7 06/09/2021 CHLORIDE 88 (L) 06/09/2021 CO2VEN 23 06/09/2021 ANIONGAP 19.7 06/09/2021 GLUCOSE 177 (H) 06/09/2021 BUN 27 (H) 06/09/2021 CREATININE 1.01 06/09/2021 BCRATIO8 27 (H) 06/09/2021 TOTALPROTEIN 7.6 06/09/2021 ALBUMIN 3.1 (L) 06/09/2021 CALCIUM 8.6 (L) 06/09/2021 TBIL 0.6 06/09/2021 SGOTAST 48 (H) 06/09/2021 SGPTALT 27 06/09/2021 ALKALINEPHO 84 06/09/2021 GFRNA 55 (L) 06/09/2021 GFRA >60 06/09/2021 No results found for: PHARTERIAL, PO2ART, EGX0HZE, CO2ART, O2ART Lab Results Component Value Date TROPONINI <0.300 06/09/2021 No results found for: AMYL, AMYLASE No results found for: LIPASE Lab Results Component Value Date CHOLESTEROL 106 02/23/2021 TRIGLYCRIDES 94 02/23/2021 HDLCHOLESTE 40.7 02/23/2021 LDL 47 02/23/2021 Assessment/Plan Patient Active Problem List Diagnosis ??? Atrial thrombus ??? Permanent atrial fibrillation (HCC) ??? Hx of CABG ??? Daytime somnolence ??? Anxiety ??? Type 2 diabetes mellitus without complication, without long-term current use of insulin (HCC) ??? Essential (primary) hypertension ??? Dyslipidemia ??? AMOR (obstructive sleep apnea) ??? Restless legs syndrome (RLS) ??? Acute pain of right knee ??? Pain and swelling of right knee ??? Acute pyelonephritis ??? Sepsis (HCC) ??? Aspiration by without respiratory symptoms Plan: Acute pyelonephritis Diagnosed with the UTI on 06/06, failed po antibiotics Started on empiric antibiotics with Levaquin (ceazolin allergy) Sepsis-suspect due to urinary source Fever(tmax 100.6) tachycardia (130s) hypotension (90/30s) and elevated lactic acid (2.1) Blood cultures are currently pending Already receiving empiric antibiotic Suspect aspiration Patient has no pulmonary symptoms, but CT abdomen and pelvis and chest x-ray revealed a right lowerlobe consolidation consistent with pneumonia or aspiration Will check a procalcitonin level, and consult speech Patient currently receiving IV level Diabetes type 2 And basal bolus regimen Chronic atrial fibrillation Currently rate control, resume home warfarin per pharmacy protocol Hypertension Resume home antihypertensive Hypothyroid Resume Synthroid CHF/CAD/CABG Currently compensated, s/p TTE EF 60% 12/2018 Resume ASA, BB, and statin Advance Care Planning: Aggregate face to face time discussing end of life advance care planning with patient and/or family and/or Power of Mold Engraver approximately 16 minutes. Discussed CPR/Intubation/Treatment Goals/Quality of life/Intensity of Care. Patient desires: Full Code VTE Prophylaxis: Lovenox 40mg Q24h Thank you very much for allowing the [facility] Hospitalist [facility] to participate in the care of this patient By: Tito Tirado APN, GAIL, 06/09/2021, 10:58 PM CDT Primary Care Physician: Jovita Bermudez MD Cosigned by Yamil Benoit MD at 06/10/2021 4:47 PM CDT documented in this encounter ED Notes * Carlene Aparicio RN - 06/09/2021 6:35 PM CDT Patient to floor at this time. Assessment unchanged. * Carlene Aparicio RN - 06/09/2021 6:07 PM CDT Patient provided with food tray at this time. * Paolo Jang DO - 06/09/2021 5:11 PM CDT I personally examined the patient, confirmed the history as documented in the chart by the residentphysician, reviewed orders and results, and discussed the plan with the resident provider and the patient. Physical Exam Vitals and nursing note reviewed. Constitutional: General: she is not in acute distress. Age-appropriate, female, no acute distress Appearance: she is well-developed. He is not diaphoretic. HENT: Head: Normocephalic and atraumatic. Right Ear: External ear normal. Left Ear: External ear normal. Eyes: General: No scleral icterus. Conjunctiva/sclera: Conjunctivae normal. Pupils: Pupils are equal, round, and reactive to light. Neck: Trachea: No tracheal deviation. Cardiovascular: Rate and Rhythm: Tachycardic rate and regular rhythm. Heart sounds: Normal heart sounds. No murmur heard. Pulmonary: Effort: Pulmonary effort is normal. No respiratory distress. Breath sounds: Normal breath sounds. No wheezing or rales. Abdominal: General: Bowel sounds are normal. There is no distension. Palpations: Abdomen is soft. Tenderness: There is no abdominal tenderness. There is no guarding or rebound. Musculoskeletal: General: Normal range of motion. Cervical back: Normal range of motion. Skin: General: Skin is warm and dry. Neurological: Mental Status: she is alert and oriented to person, place, and time. Cranial Nerves: No cranial nerve deficit. Coordination: Coordination normal. CT ABDOMEN PELVIS W/ CONTRAST Final Result IMPRESSION: 1. Right lower lobe consolidation consistent with pneumonia or aspiration. 2. Cardiomegaly. 3. Extensive colonic diverticulosis without evidence of acute diverticulitis. 4. Severe atherosclerotic disease of the abdominal aorta and bilateral iliacs. 5. Mild hepatic steatosis. Lactic Acid (Lactate), Serum - Stat (First draw) Final Result Protime (PT or Prothrombin Time) [id number] Final Result Extra Tubes Final Result EKG 12 LEAD Urinalysis Reflex if Indicated by Abnormal Results Final Result Complete Blood Count (CBC) WITH Diff Final Result CMP (Comprehensive Metabolic Panel) Final Result Extra Tubes Final Result Lactic Acid (Lactate), Serum - Timed (Second draw 2 hours after first) (Results Pending) XR CHEST SINGLE VIEW PORTABLE (Results Pending) Labs Reviewed CMP (COMPREHENSIVE METABOLIC PANEL) - Abnormal; Notable for the following components: Result Value SODIUM 126 (*) CHLORIDE 88 (*) GLUCOSE 177 (*) BUN 27 (*) BUN/CREATININE RATIO 27 (*) ALBUMIN 3.1 (*) A/G RATIO 0.7 (*) CALCIUM 8.6 (*) SGOT (AST) 48 (*) GFR, EST. NONAFRICAN 55 (*) All other components within normal limits URINALYSIS REFLEX IF INDICATED BY ABNORMAL RESULTS - Abnormal; Notable for the following components: WBC ESTERASE 25 /uL (*) PROTEIN, RANDOM URINE 30 mg/dL (*) URINE GLUCOSE, QUAL 1000 mg/dL (*) URINE KETONES 15 mg/dL (*) URINE BLOOD 50 /uL (*) URINE RBC'S 3-5 (*) All other components within normal limits LACTIC ACID (LACTATE) - Abnormal; Notable for the following components: LACTIC ACID 2.1 (*) All other components within normal limits PROTIME (PT) (PROTHROMBIN TIME) - Abnormal; Notable for the following components: PROTIME-PATIENT 23.2 (*) INR 2.2 (*) All other components within normal limits CBC WITH AUTO DIFFERENTIAL - Abnormal; Notable for the following components: WBC 15.66 (*) MCV 97.7 (*) NEUTROPHILS 81.5 (*) LYMPHOCYTES 6.3 (*) MONOCYTES 12.1 (*) ABSOLUTE NEUTROPHILS 12.75 (*) ABSOLUTE LYMPHOCYTES 0.99 (*) ABSOLUTE MONOCYTES 1.90 (*) All other components within normal limits CULTURE, BLOOD CULTURE, BLOOD CULTURE, URINE SARS-COV-2 BY MOLECULAR COMPLETE BLOOD COUNT (CBC) WITH DIFF Narrative: The following orders were created for panel order Complete Blood Count (CBC) WITH Diff. Procedure Abnormality Status --------- ------ CBC with Auto Differential[[id number]] Abnormal Final result Please view results for these tests on the individual orders. EXTRA TUBES Narrative: The following orders were created for panel order Extra Tubes. Procedure Abnormality Status --------- ------ Gold Top Tube[[id number]] Final result Lavender Top Tube[[id number]] Final result Please view results for these tests on the individual orders. EXTRA TUBES Narrative: The following orders were created for panel order Extra Tubes. Procedure Abnormality Status --------- ------ Gold Top Tube[[id number]] Final result Lavender Top Tube[[id number]] Final result Lavender Top Tube[[id number]] Final result STIVEN JON HEPARIN/S...[[id number]] Final result Please view results for these tests on the individual orders. LACTIC ACID (LACTATE) GOLD TOP TUBE LAVENDER TOP TUBE GOLD TOP TUBE LAVENDER TOP TUBE LAVENDER TOP TUBE STIVEN JON HEPARIN/SST TOP TUBE In reviewing the patient's chart, their primary care doctor is Jovita Bermudez MD. I have reviewed the available labs, imaging, and nursing notes. I have personally provided 35____ minutes of critical care time exclusive of time spent on separately billable procedures. Time includes review of laboratory data, radiology results, discussion with consultants, and monitoring for potential decompensation. Interventions were performed as documented above. Upon my evaluation, this patient had a high probability of imminent or life-threateningdeterioration due to ____cv collapse____, which required my direct attention, intervention, and personal management. The high probability of sudden, clinically significant deterioration in the patient's condition required the highest level of my preparedness to intervene urgently. Services includedthe following: chart data review, reviewing nursing notes and/or old charts, documentation time, skin care consultant collaboration regarding findings and treatment options, medication orders and management, direct patient care, re- evaluations, vital sign assessments and ordering, interpreting and reviewing d iagnostic studies/lab tests. It did not include time spent performing other reported procedures or the services of residents, students, nurses or physician assistants. See SOILS TECHNICIAN/PA notes for consults MDM: Sepsis/ pneumonia/Broad-spectrum IV antibiotics, blood culture sent, lactated Ringer bolus ordered,blood pressure stable, does not appear to need central line or IV pressors at this time. I have assessed the capillary refill and distal perfusion of the patient. Lactic acid orders placed. Plan to admit to telemetry. Levaquin due to cephalosporin allergy. Lactic acid is only 2.1, good evidence that she has been perfusing well. Well-appearing otherwise. Disposition: Admit to tele My clinical impression of the patient is: Diagnosis includes: 1. Acute pyelonephritis 2. Pneumonia of right lower lobe due to infectious organism 3. Sepsis without acute organ dysfunction, due to unspecified organism (HCC) 4. Hyponatremia [facility] * Carlene Aparicio RN - 06/09/2021 4:44 PM CDT Patient ambulatory to restroom at this time. * Carlene Aparicio RN - 06/09/2021 4:01 PM CDT Patient resting in bed, no needs noted at this time. * Rob Martinez, ELIN, AVIONICS SYSTEMS REPAIRER - 06/09/2021 4:00 PM CDT Sepsis Reassessment of Volume Status and Tissue Perfusion Sepsis re-evaluation was performed. 06/09/2021 at 4:00PM Cosigned by Paolo Jang DO at 06/12/2021 6:44 PM CDT * Carlene Aparicio RN - 06/09/2021 3:03 PM CDT Attempt x3 to get blood work at this time. * Rob Martinez, COLLAR CUTTER, AVIONICS SYSTEMS REPAIRER - 06/09/2021 2:32 PM CDT Chief Complaint Patient presents with ??? Flank Pain Tressa Myers is a 66-year-old female with history of UTI, CHF, hypertension, diabetes, AFib presenting with complaints of subjective fever, right flank, right upper abdominal pain for the past 1-2days with associated dysuria, nausea and vomiting for the past 4 days. Patient states the pain is fairly constant worse with nothing and better with nothing. Patient seen her primary care doctor 4 days ago diagnosed with urinary tract infection she was put on Macrobid last dose yesterday. Patient denies any vomiting today. Current Facility-Administered Medications Medication Dose Route Frequency Provider Last Rate Last Admin ??? levoFLOXacin (LEVAQUIN) IV 750 mg 750 mg Intravenous Q24H Rob Martinez, COLLAR CUTTER, AVIONICS SYSTEMS REPAIRER 100 mL/hr at 06/09/21 1527 750 mg at 06/09/21 1527 ??? SODIUM CHLORIDE 0.9 % IV SOLN Current Outpatient Medications Medication Sig Dispense Refill ??? Ascorbic Acid 500 MG Chewable Tablet Take 500 mg by mouth. ??? aspirin EC 81 MG Tablet Delayed Response Take 81 mg by mouth. ??? Blood Glucose Monitoring Suppl Device glDiagnosis: Diabetes type 2 Blood testing frequency: once a day 1 Each 0 ??? celecoxib (CeleBREX) 200 MG Capsule TAKE ONE CAPSULE BY MOUTH EVERY DAY (Patient not taking: Reported on 05/04/2021) 30 Capsule 0 ??? clobetasol (TEMOVATE) 0.05 % Gel APPLY TO NEW LESIONS ON ARMS COVER WITH TAPE THEN WASH OFF IN THE MORNING. REPEAT PROCESS UNTIL LESIONS ARE FLAT THEN USE TWICE A WEEK MA ??? furosemide (LASIX) 40 MG Tablet Take 0.5 Tablets by mouth daily. 90 Tablet 1 ??? gabapentin (NEURONTIN) 600 MG Tablet Take 1 Tablet by mouth daily. 270 Tablet 5 ??? Glucose Blood Strip Diagnosis: Diabetes type 2 Blood testing frequency: once a day 100 Strip 3 ??? Jardiance 25 MG Tablet TAKE ONE TABLET BY MOUTH EVERY DAY 30 Tablet 2 ??? levothyroxine (SYNTHROID) 75 MCG Tablet Take 1 Tablet by mouth daily. 90 Tablet 1 ??? losartan (COZAAR) 50 MG Tablet Take 1 Tablet by mouth daily. 90 Tablet 1 ??? metFORMIN (GLUCOPHAGE) 1000 MG Tablet Take 1 Tablet by mouth 2 times daily. 180 Tablet 1 ??? metoprolol Succinate (TOPROL-XL) 100 MG TABLET SR 24 HR Take 2 Tablets by mouth daily. 135 Tablet 1 ??? mupirocin (BACTROBAN) 2 % Ointment APPLY TO OPEN SORES ON ARMS THREE TIMES DAILY FOR 1 WEEK ??? nitrofurantoin, macrocrystal-monohydrate, (MACROBID) 100 MG Capsule Take 1 Capsule by mouth 2 times daily for 7 days. 14 Capsule 0 ??? PARoxetine (PAXIL) 40 MG Tablet TAKE ONE TABLET BY MOUTH EVERY DAY 90 Tablet 1 ??? simvastatin (ZOCOR) 40 MG Tablet Take 1 tablet by mouth once daily 90 Tablet 1 ??? SITagliptin (JANUVIA) 100 MG Tablet Take 1 Tablet by mouth daily. 90 Tablet 1 ??? traMADol (ULTRAM) 50 MG Tablet TAKE ONE TABLET BY MOUTH EVERY 6 HOURS NEEDED FOR MODERATE ORMORE SEVERE PAIN 28 Tablet 0 ??? warfarin (COUMADIN) 2 MG Tablet Take 1.5 Tablets by mouth. 90 Tablet Allergies Allergen Reactions ??? Cefazolin Rash and Shortness of Breath ??? Lisinopril Other (see Comments) Past Medical History Positives Diagnosis Date ??? Atrial fibrillation (HCC) ??? Congestive heart failure (CHF) (HCC) ??? Diabetes (HCC) ??? Hypertension ??? Thyroid activity decreased Past Surgical History: Procedure Laterality Date ??? HC INJ CARDIAC CATH VENOUS BYPASS GRAFT,1+ ??? TUBAL LIGATION Social History Socioeconomic History ??? Marital status: Single Spouse name: Not on file ??? Number of children: Not on file ??? Years of education: Not on file ??? Highest education level: Not on file Occupational History ??? Not on file Tobacco Use ??? Smoking status: Former Smoker Packs/day: 2.00 Years: 35.00 Pack years: 70.00 Types: Cigarettes ??? Smokeless tobacco: Never Used Substance and Sexual Activity ??? Alcohol use: Not Currently ??? Drug use: Yes Types: Marijuana Comment: a few times per week ??? Sexual activity: Not Currently Other Topics Concern ??? Not on file Social History Narrative ??? Not on file Social Determinants of Health Social determinant risk not applicable to this patient. BP 107/51 Pulse 53 Temp 99.7 ??F (37.6 ??C) (Tympanic) Resp 19 Ht 5' 5 (1.651 m) Wt 216 lb (98 kg) SpO2 97% BMI 35.94 kg/m?? Review of Systems Constitutional: Positive for fatigue (Subjective). Gastrointestinal: Positive for abdominal pain, nausea and vomiting. Genitourinary: Positive for flank pain. All other systems reviewed and are negative. Physical Exam Vitals and nursing note reviewed. Constitutional: General: She is not in acute distress. Appearance: Normal appearance. She is well-developed. She is not diaphoretic. Comments: Patient is in no distress. HENT: Head: Normocephalic and atraumatic. Right Ear: External ear normal. Left Ear: External ear normal. Mouth/Throat: Mouth: Mucous membranes are dry. Eyes: Conjunctiva/sclera: Conjunctivae normal. Pupils: Pupils are equal, round, and reactive to light. Neck: Trachea: No tracheal deviation. Cardiovascular: Rate and Rhythm: Regular rhythm. Tachycardia present. Pulses: Normal pulses. Heart sounds: Normal heart sounds. No murmur heard. Comments: Patient's heart rate ranges from 103-120. Pulmonary: Effort: Pulmonary effort is normal. No respiratory distress. Breath sounds: Normal breath sounds. No wheezing or rales. Abdominal: General: Abdomen is flat. Bowel sounds are normal. There is no distension (RUQ ). Palpations: Abdomen is soft. Tenderness: There is abdominal tenderness. There is right CVA tenderness. There is no guarding or rebound. Musculoskeletal: General: Normal range of motion. Cervical back: Normal range of motion. Skin: General: Skin is warm and dry. Neurological: General: No focal deficit present. Mental Status: She is alert and oriented to person, place, and time. Cranial Nerves: No cranial nerve deficit. Psychiatric: Mood and Affect: Mood normal. Behavior: Behavior normal. Procedures EKG timed for 1453. AFib with RVR rate 115. T-wave inversion in lead 3, V5 and V6. Normal QRS. No prior EKG available. Imaging Results XR CHEST SINGLE VIEW PORTABLE (Final result) Result time 06/09/21 17:39:03 Final result by Rody Batres MD (06/09/21 17:39:03) Impression: IMPRESSION: 1. Known right basilar pneumonia is largely obscured by the right heart border on this examination. There may be minimal infiltrate in the inferior right upper lobe. 2. No effusion or pneumothorax. 3. Cardiac silhouette borderline enlarged, accentuated by technique and position Narrative: EXAM DESCRIPTION: XR CHEST SINGLE VIEW PORTABLE REASON FOR STUDY: pneumonia found on CT today h/o ex smoker, A-FIB, CHF, HTN, stent TECHNIQUE: Frontal radiographic view of the chest acquired. COMPARISON: CT examination dated 06/09/2021 and chest radiograph dated 09/01/2014 FINDINGS: LUNGS/PLEURA: There is minimal interstitial opacity demonstrated in the right base, similar to the prior study. There is airspace opacity within the medial aspect of the right lung base, obscured by the right heart border. Minimal opacity in the inferior right upper lobe cannot be excluded on this examination. There is no effusion or pneumothorax. HEART/MEDIASTINUM: The cardiac silhouette is at the upper limits of normal in size. HARDWARE/LINES/TUBES: Sternotomy changes are noted. BONES: Degenerative changes, without acute process. OTHER: No other significant finding. THIS IS AN ELECTRONICALLY VERIFIED FINAL REPORT 06/09/2021 5:36 PM - Electronically signed by Rody Batres M.D. TB: TB Report ID: [id number] [facility]/ CONTRAST (Final result) Result time 06/09/21 16:45:29 Final result by Manfred Jesus MD (06/09/21 16:45:29) Impression: IMPRESSION: 1. Right lower lobe consolidation consistent with pneumonia or aspiration. 2. Cardiomegaly. 3. Extensive colonic diverticulosis without evidence of acute diverticulitis. 4. Severe atherosclerotic disease of the abdominal aorta and bilateral iliacs. 5. Mild hepatic steatosis. Narrative: EXAM DESCRIPTION: CT ABDOMEN PELVIS W/ CONTRAST REASON FOR STUDY: Nausea and vomiting with abdominal pain for 4 days. TECHNIQUE: CT scan of the abdomen and pelvis performed with intravenous and without oral contrast using helical scanning technique with dynamic intravenous contrast injection. Reconstructed coronal and sagittal MPR images reviewed. All images stored on PACS. Automated exposure control was used as a dose optimization technique for this examination. CONTRAST TYPE/DOSE: 100 mL Isovue 370 injected via right antecubital COMPARISON: Correlation is made with a right upper quadrant abdominal ultrasound 03/17/2021 FINDINGS: LOWER CHEST: Right lower lobe consolidation. Cardiomegaly with biatrial enlargement. Partially visualized postoperative changes of median sternotomy and cardiac surgery. Nodular focus at the left lung base axial image 33 favored to relate to atelectasis. LIVER: Mild hepatic steatosis. GALLBLADDER: No stones identified. No wall thickening or inflammatory changes. BILE DUCTS: No intrahepatic or extrahepatic ductal dilatation. SPLEEN: Unremarkable. PANCREAS: No peripancreatic fat stranding. No pancreatic ductal dilatation. ADRENALS: Nodular thickening of both adrenal glands. KIDNEYS/URINARY TRACT: Symmetric enhancement of the kidneys. Bilateral extrarenal pelves are noted. Subcentimeter low-attenuation lesions involving both kidneys which are too small to characterize. No hydronephrosis or urinary tract calculi identified. Urinary bladder is unremarkable. GI: Extensive colonic diverticulosis without evidence of acute diverticulitis. No evidence of small-bowel obstruction. Normal appendix. Small sliding hiatal hernia. PERITONEUM: No ascites or free air. RETROPERITONEUM: No mass or adenopathy. REPRODUCTIVE: Unremarkable VASCULATURE: Severe atherosclerotic disease of the abdominal aorta, branch vessels, and bilateral iliacs. No abdominal aortic aneurysm. Extensive splenic artery calcifications. The celiac trunk and SMA appear patent. Narrowing at the inferior mesenteric artery origin without complete occlusion identified on these portal venous phase images. MUSCULOSKELETAL: Decreased bone mineralization. Advanced multilevel lumbar spondylosis. THIS IS AN ELECTRONICALLY VERIFIED FINAL REPORT 06/09/2021 4:42 PM - Electronically signed by Manfred Jesus M.D. APRVEZ: PARVEZ Report ID: [id number] Reading Location: [place] [address] Results for orders placed or performed during the hospital encounter of 06/09/21 SARS-COV-2 BY MOLECULAR Specimen: Nasopharyngeal; Other Result Value Ref Range SARSCOV2 NOT DETECTED (Reference Range for this test is Not Detected) CMP (Comprehensive Metabolic Panel) Result Value Ref Range SODIUM 126 (L) 136 - 144 mmol/L POTASSIUM 4.7 3.5 - 5.1 mmol/L CHLORIDE 88 (L) 100 - 110 mmol/L CO2, VENOUS 23 22 - 32 mmol/L ANION GAP 19.7 8.0 - 20.0 mmol/L GLUCOSE 177 (H) 70 - 99 mg/dL BUN 27 (H) 8 - 23 mg/dL CREATININE, BLOOD 1.01 0.60 - 1.10 mg/dL BUN/CREATININE RATIO 27 (H) 12 - 20 ratio TOTAL PROTEIN 7.6 6.0 - 8.3 g/dL ALBUMIN 3.1 (L) 3.5 - 5.2 g/dL A/G RATIO 0.7 (L) 1.0 - 2.0 CALCIUM 8.6 (L) 8.9 - 10.3 mg/dL T BILI 0.6 <=1.2 mg/dL SGOT (AST) 48 (H) <=32 U/L SGPT (ALT) 27 <=41 U/L ALKALINE PHOSPHATASE 84 35 - 105 U/L GFR, EST. NONAFRICAN 55 (L) >=60 GFR, EST. >60 >=60 Urinalysis Reflex if Indicated by Abnormal Results Result Value Ref Range SPECIFIC GRAVITY 1.010 1.003 - 1.030 URINE PH 6.0 5.0 - 9.0 WBC ESTERASE 25 /uL (A) Negative NITRITE Negative Negative PROTEIN, RANDOM URINE 30 mg/dL (A) Negative URINE GLUCOSE, QUAL 1000 mg/dL (A) Negative URINE KETONES 15 mg/dL (A) Negative UROBILINOGEN Normal Normal mg/dL URINE BLOOD 50 /uL (A) Negative minerva/ul URINALYSIS COLOR Yellow URINALYSIS CLARITY Slightly Cloudy WBC (Urine) 0-5 Negative, 0-5 /hpf URINE RBC'S 3-5 (A) Negative, 0-2 /hpf EPITHELIAL CELLS Moderate amount /lpf BACTERIA, URINE Negative Negative /hpf Lactic Acid (Lactate), Serum - Stat (First draw) Result Value Ref Range LACTIC ACID 2.1 (H) 0.5 - 2.0 mmol/L Lactic Acid (Lactate), Serum - Timed (Second draw 2 hours after first) Result Value Ref Range LACTIC ACID 1.4 0.5 - 2.0 mmol/L Protime (PT or Prothrombin Time) [id number] Result Value Ref Range PROTIME-PATIENT 23.2 (H) 11.6 - 14.8 sec INR 2.2 (H) 0.9 - 1.2 EKG 12 LEAD Result Value Ref Range Ventricular Rate BPM Atrial Rate BPM P-R Interval ms QRS Duration 92 ms Q-T Duration 336 ms QTC CALCULATION 466 ms P [place] degrees R [place] 61 degrees T [place] -52 degrees CBC with Auto Differential Result Value Ref Range WBC 15.66 (H) 4.00 - 12.00 10(3)/mcL RBC 4.27 3.80 - 5.30 10(6)/mcL HEMOGLOBIN (HGB) 13.8 12.0 - 15.8 g/dL HEMATOCRIT (HCT) 41.7 36.0 - 47.0 % MCV 97.7 (H) 82.0 - 96.0 fL MCH 32.3 26.0 - 34.0 pg MCHC 33.1 31.0 - 36.0 g/dL PLATELET COUNT 294 140 - 440 10(3)/mcL RDW 13.1 11.8 - 15.5 % MPV 10.0 9.7 - 12.4 fL NEUTROPHILS 81.5 (H) 47.0 - 73.0 % LYMPHOCYTES 6.3 (L) 18.0 - 42.0 % MONOCYTES 12.1 (H) 4.0 - 12.0 % EOSINOPHILS 0.0 0.0 - 5.0 % BASOPHILS 0.1 0.0 - 1.0 % ABSOLUTE NEUTROPHILS 12.75 (H) 1.60 - 7.70 10(3)/mcL ABSOLUTE LYMPHOCYTES 0.99 (L) 1.30 - 3.20 10(3)/mcL ABSOLUTE MONOCYTES 1.90 (H) 0.20 - 1.00 10(3)/mcL ABSOLUTE EOSINOPHIL 0.00 0.00 - 0.40 10(3)/mcL ABSOLUTE BASOPHILS 0.02 0.00 - 0.10 10(3)/mcL NRBC PER 100 WBC 0 MDM Amount and/or Complexity of Data Reviewed Clinical lab tests: ordered and reviewed Tests in the radiology section of CPT??: ordered and reviewed Tests in the medicine section of CPT??: reviewed and ordered Risk of Complications, Morbidity, and/or Mortality Presenting problems: moderate Management options: moderate Critical Care Total time providing critical care: < 30 minutes Reviewed: nursing note and vitals Interpretation: labs, ECG and CT scan Total time providing critical care: < 30 minutes. This excludes time spent performing separatelyreportable procedures and services. Consults: admitting 1430: CODE sepsis called;pts pulse is up to 123, hypotension. Will give fluid resuscitation, give IV Levaquin for UTI, willGet blood cultures. 1600:Septic Shock Focused Exam Most Recent Vital Signs BP 107/51 Pulse 53 Temp 99.7 ??F (37.6 ??C) (Tympanic) Resp 19 Ht 5' 5 (1.651 m) Wt 216 lb (98 kg) SpO2 97% BMI 35.94 kg/m?? Focused Exam Cardiac: Irregular tachycardic Peripheral pulses: intact without pedal edema Capillary refill: less than 3 seconds Pulmonary: LCTA, diminished breath sounds Skin condition: intact Skin color: pink Plan/Recommendation Admit to hospital Sepsis Reassessment of Volume Status and Tissue Perfusion Sepsis re-evaluation was performed. 06/09/2021 at 1600 PM CDT. 1640: Fluid bolus continues as pt needs to use BR frequently. 1700: Pt agreeable to stay in hospital. update on CT and labs findings, CXR added to orders to evalthe pneumonia. 1735: HPI, labs, CT findings discussed with Day for Dr Benoit, Pt is accepted for admission. Clinical Impression 1. Acute pyelonephritis 2. Pneumonia of right lower lobe due to infectious organism 3. Sepsis without acute organ dysfunction, due to unspecified organism (HCC) 4. Hyponatremia * Cosigned by Paolo Jang DO at 06/12/2021 6:44 PM CDT * Carlene Aparicio RN - 06/09/2021 2:30 PM CDT Patient ambulatory to restroom at this time. * Shelley Jacobs RN - 06/09/2021 1:30 PM CDT Pt to triage with c/o right flank pain x 1-2 days and n/v x 4 days. Pt was seen in PCP's office andis currently taking an antibiotic for UTI. Pt reports feeling feverish over the last couple days. documented in this encounter Miscellaneous Notes * Plan of Care - Carly Cuevas RN - 06/11/2021 5:08 PM CDT Discharged to family car via wheelchair * Interdisciplinary - Evelyn Avina - 06/11/2021 11:03 AM CDT Case Management Discharge Readiness Note Tressa's readmission risk level (if calculated) is: 1-Low Patient Class: Inpatient Hospitalized Encounter: LOS: 1 day Discharge: Final home discharge arrangements: home with no services Mode of transportation at discharge:: Family car Additional Information regarding DC Plan: N/A Patient's Phone numbers: [phone] (home) division human resources manager verified contact phone number: Yes Preferred contact number: (if different from above): N/A Notifications of Discharge Plan: Nursing notified: YES JUSTICE Bran Patient/ Decision Maker and family notified: Tressa IM Letter Documentation, if applicable Medicare Notice Given to Responsible Constitution Party: Yes, in person Date Form Given to Patient/Responsible Constitution Party: 06/09/21 Decision Maker / Caregiver Information Medical Decision Maker Assessment: Patient is medical decision-maker * Interdisciplinary - Ginette Burnett RN - 06/11/2021 6:16 AM CDT Pt resting in bed. No needs at this time. IVF running per MAR orders. Will continue to monitor. * Plan of Care - Ginette Burnett RN - 06/11/2021 5:44 AM CDT Problem: Infection Goal: Absence of Infection Signs and Symptoms Outcome: Ongoing (see interventions/notes) Problem: Adult Inpatient Plan of Care Goal: Plan of Care Review Outcome: Ongoing (see interventions/notes) Flowsheets Taken 06/11/2021 0543 by Ginette Burnett RN Outcome Summary: pt slept most of evening. Pt requested pain medication 1 time for headache. No other needs through night. Taken 06/10/2021 2100 by Ginette Burnett RN Today's Goal: pain less then 3 Taken 06/09/20212210 by Nurys Godfrey RN Progress: no change Plan of Care Reviewed With: patient Does the patient need assistance with discharge and/or transitioning to the next level of care?: No, no needs anticipated Goal: Absence of Hospital-Acquired Illness or Injury Outcome: Ongoing (see interventions/notes) Goal: Optimal Comfort and Wellbeing Outcome: Ongoing (see interventions/notes) Goal: Readiness for Transition of Care Outcome: Ongoing (see interventions/notes) Problem: Fall Injury Risk Goal: Absence of Fall and Fall-Related Injury Outcome: Ongoing (see interventions/notes) * Interdisciplinary - Ginette Burnett RN - 06/10/2021 7:51 PM CDT Pt resting in bed watching TV. IVF running per OCT orders. No needs at this time. Call light withinreach. Will continue to monitor. * Plan of Care - Khalida Alva RN - 06/10/2021 7:06 PM CDT Problem: Adult Inpatient Plan of Care Goal: Plan of Care Review Flowsheets Taken 06/10/2021 1906 by Khalida Alva RN Outcome Summary: pain controlled with norco Taken 06/10/2021 0845 by Khalida Alva RN Today's Goal: pain < 3/10 Taken 06/09/20212210 by Nurys Godfrey RN Progress: no change Plan of Care Reviewed With: patient Does the patient need assistance with discharge and/or transitioning to the next level of care?: No, no needs anticipated * Plan of Care - Divina Mullins Damien - 06/10/2021 4:03 PM CDT Case Management Comprehensive Assessment Tressa's readmission risk level (if calculated) is: 1-Low Patient Class: Inpatient Consecutive Inpatient Midnights 1 Actual day(s) of hospital stay (compare to working DRG): 1 Reason for Methods Time AnalystClinical Manager Home Care: Medicare Tressa is in the hospital due to: Acute pyelonephritis Prior to Admission (Support, Living Environment,ADLs IADLs, Transportation, Employment, Access to Care) Patient has a medical history of atrial fibrillation on anticoagulation with warfarin, CHF, diabetes type 2, hypertension, hypothyroidism. Patient is alert and oriented x3. Tressa is a 66 year old, single, , female. Patient lives alone in her own single story house. Patient is independent with ADL's, meals, cleaning, laundry, and driving. She does not have or use DME. She has support of her children. Patient's PCP is Jovita Bermudez MD. Patient has Medicare C [employer] and denies any complications obtaining or affording medications. She is retired and on SS. Patient does not have advanced directives and declines information. Tressa is not a 30 day re-hospitalization. Plan of Care (Problem/ situation/ barrier + goals/ milestones + interventions + evaluation of progress = Plan of Care) Hospital Plan: blood and urine cultures pending, IV levaquin, CT chest Anticipated Discharge Plan: Home (no arranged services) 06/10/21 Patient/ patient inside sales account representative's preferences regarding the discharge plan: home no needs Discharge Planning Choice Documentation, if applicable: post acute choices were not presented during this contact. SUMMARY (summary of interaction with patient/decision maker, family and interdisciplinary team) Met with Tressa and introduced self and role and discussed plan of care. Patient plans to return home and denies any discharge needs at this time. CM will continue to follow. IM Letter Documentation, if applicable Medicare Notice Given to Responsible Constitution Party: Yes, in person Date Form Given to Patient/Responsible Constitution Party: 06/09/21 Decision Maker / Shank Inspector Information Patient is medical decision-maker * Shelby Carranza, MS CCC-EDI COORDINATOR - 06/10/2021 11:08 AM CDT Speech Pathology Order received for clinical swallowing evaluation. Reviewed status with nursing. Patient declined at this time citing no issues with swallow. Alerted nursing Speech Pathology to sign off at this time. By: SHELBY JACOBS MS CCC-EDI COORDINATOR; 06/10/2021, 11:11 AM CDT * Magdalena Mcguire [facility] - 06/10/2021 1:40 AM CDT PHARMACY PROGRESS NOTE - WARFARIN DOSING CONSULT Patient Name: Tressa Myers CSN: [id number] Age: 66 y.o. Sex: female Admission Date: 06/09/2021 Consult Request by: Tito Tirado, COLLAR CUTTER, AVIONICS SYSTEMS REPAIRER Background Data: Social History Substance and Sexual Activity Alcohol Use Not Currently Lab Data: Lab Results Component Value Date HEMOGLOBIN 13.8 06/09/2021 HEMOGLOBIN 13.9 02/23/2021 HEMATOCRIT 41.7 06/09/2021 HEMATOCRIT 44.4 02/23/2021 PLATELETCNT 294 06/09/2021 PLATELETCNT 245 02/23/2021 CREATININE 1.01 06/09/2021 CREATININE 0.60 03/17/2021 CREATININE 0.76 02/23/2021 Calculated Creat Clearance: Estimated Creatinine Clearance: 49.3 mL/min (by C-G formula based on SCr of 1.01 mg/dL). Liver Function Labs: Lab Results Component Value Date ALBUMIN 3.1 (L) 06/09/2021 SGPTALT 27 06/09/2021 ALKALINEPHO 84 06/09/2021 TBIL 0.6 06/09/2021 Reason for Anticoagulation: Afib [id number] Score: (If Afib patient): Her current UBD0QT7-DVUd score is 4. Diet: Diet Active Orders DIET CHO CONSISTENT MEDIUM CALORIE Intake: Not charted Changes in GI function (N/V, Bowels): Patient presenting with persistent nausea with vomiting, decreased appetite and right flank pain Signs and Symptoms of Bleeding: No concern per H&P Date/Time of Recent PRBC, FFP, Kcentra, or Vitamin K: nONE Currently receiving a parenteral anticoagulant? None Interacting medications/effect on INR: Home Medications Effect on INR In-Patient Medications Effect on INR Paroxetine Simvastatin Levothyroxine Raise Levofloxacin Levothyroxine Paroxetine Simvastatin Raise Lab Results Component Value Date INR 2.2 (H) 06/09/2021 INR 2.5 (A) 12/27/2020 INR 2.1 (A) 12/06/2020 INR 1.4 (A) 12/01/2020 INR 4.3 (A) 11/27/2020 Home Dose Warfarin: 3 mg daily Inpatient Warfarin Dosing: Date 06/09 06/10 mg 3 3 INR 2.2 Dose Received Missed Assessment: The INR is 2.2. This is within the therapeutic range of 2-3. Per H&P, patient presenting with persistent nausea with vomiting, decreased appetite and right flank pain which can increase INR. Anticoagulation Plan: Will give home dose of 3 mg today Warfarin administered: PO INR is currently being drawn: Daily Projected home dose/discharge plan: No discharge plan yet determined For questions call [facility] [phone] Thank you for this Pharmacy Consult. MAGDALENA GRAY RPH 06/10/2021, 1:40 AM CDT * Plan of Mary - Nurys Godfrey RN - 06/09/2021 10:13 PM CDT Problem: Infection Goal: Absence of Infection Signs and Symptoms 06/09/20212210 by Nurys Godfrey RN Outcome: Ongoing (see interventions/notes) 06/09/20212210 by Nurys Godfrey RN Outcome: Ongoing (see interventions/notes) Intervention: Prevent or Manage Infection Flowsheets (Taken 06/09/20212099) Fever Reduction/Comfort Measures: lightweight bedding lightweight clothing Problem: Adult Inpatient Plan of Care Goal: Plan of Care Review 06/09/20212210 by Nurys Godfrey RN Outcome: Ongoing (see interventions/notes) Flowsheets Taken 06/09/20212210 Progress: no change Plan of Care Reviewed With: patient Outcome Summary: SOILS TECHNICIAN notified of patient's request for pain medication. Does the patient need assistance with discharge and/or transitioning to the next level of care?: No, no needs anticipated Taken 06/09/20212099 Today's Goal: Keep pain below 3/10 06/09/20212210 by Nurys Godfrey RN Outcome: Ongoing (see interventions/notes) Goal: Absence of Hospital-Acquired Illness or Injury 06/09/20212210 by Nurys Godfrey RN Outcome: Ongoing (see interventions/notes) 06/09/20212210 by Nurys Godfrey RN Outcome: Ongoing (see interventions/notes) Intervention: Prevent and Manage VTE (Venous Thromboembolism) Risk Flowsheets (Taken 06/09/20212210) VTE Prevention/Management: ambulation encouraged Goal: Optimal Comfort and Wellbeing 06/09/20212210 by Nurys Godfrey RN Outcome: Ongoing (see interventions/notes) 06/09/20212210 by Nurys Godfrey RN Outcome: Ongoing (see interventions/notes) Intervention: Provide Person-Centered Care Flowsheets (Taken 06/09/20212099) Trust Relationship/Rapport: care explained choices provided Goal: Readiness for Transition of Care 06/09/20212210 by Nurys Godfrey RN Outcome: Ongoing (see interventions/notes) 06/09/20212210 by Nurys Godfrey RN Outcome: Ongoing (see interventions/notes) Problem: Fall Injury Risk Goal: Absence of Fall and Fall-Related Injury 06/09/20212210 by Nurys Godfrey RN Outcome: Ongoing (see interventions/notes) 06/09/20212210 by Nurys Godfrey RN Outcome: Ongoing (see interventions/notes) Intervention: Identify and Manage Contributors Flowsheets (Taken 06/09/20212210) Medication Review/Management: medications reviewed Self-Care Promotion: independence encouraged BADL personal objects within reach Intervention: Promote Injury-Free Environment Flowsheets (Taken 06/09/20212210) Safety Promotion/Fall Prevention: commode/urinal/bedpan at bedside * Interdisciplinary - Rene Hand, RN - 06/09/2021 3:37 PM CDT OnCall Sepsis Note Sepsis BPA alert received. Chart reviewed, contacted: Provider, messaged via secure chat Contact reason: Bundle time approaching for antibiotic administration * Wade - Rene Hand, RN - 06/09/2021 3:22 PM CDT Plan of care reviewed noted. Messaged bedside nurse. Will continue to monitor. RENE HAND, RN, 06/09/2021, 3:23 PM CDT documented in this encounter Plan of Treatment Upcoming Encounters Date Type Department Care Team (Late st Contact Info) Description 10/29/2024 9:30 AM RODEO PERFORMER Office Visit [facility] [address] [place] [address] Bhargavi Morel, PAC [address] [place] [address] Scheduled Orders Name Type Priority Associated Diagnoses Orde r Schedule Pulse Oximetry, Spot PFT Routine WITH VITALS until discontinued starting 06/09/2021 documented as of this encounter Procedures Procedure Name Priority Date/Time Associated Diagnosis Comments POCT GLUCOSE Routine 06/11/2021 8:46 AM CDT PROTIME (PT) (PROTHROMBIN TIME) Routine 06/11/2021 8:36 AM CDT POCT GLUCOSE Routine 06/10/2021 8:39 PM CDT UR LEGIONELLA ANTIGEN Routine 06/10/2021 5:42 PM CDT MYCOPLASMA AB IGG & IGM Routine 06/10/2021 5:39 PM CDT RESPIRATORY PATHOGEN ARRAY Routine 06/10/2021 4:43 PM CDT POCT GLUCOSE Routine 06/10/2021 4:[address] CHEST W/O CONTRAST Routine 06/10/2021 2:12 PM CDT POCT GLUCOSE Routine 06/10/2021 11:48 AM CDT POCT GLUCOSE Routine 06/10/2021 8:40 AM CDT PROCALCITONIN Routine 06/10/2021 8:16 AM CDT CBC WITH AUTO DIFFERENTIAL Routine 06/10/2021 8:16 AM CDT COMPLETE BLOOD COUNT (CBC) WITH DIFF Routine 06/10/2021 8:16 AM CDT BASIC METABOLIC PANEL W/ CALCIUM TOTAL Routine 06/10/2021 8:16 AM CDT POCT GLUCOSE Routine 06/09/2021 8:36 PM CDT XR CHEST SINGLE VIEW PORTABLE STAT 06/09/2021 5:18 PM CDT SARS-COV-2 BY MOLECULAR STAT 06/09/2021 5:14 PM CDT LACTIC ACID (LACTATE) STAT 06/09/2021 5:[address] ABDOMEN PELVIS W/ CONTRAST STAT 06/09/2021 4:22 PM CDT EXTRA TUBES STAT 06/09/2021 3:14 PM CDT HEMOGLOBIN A1C W/ ESTIMATED GLUCOSE Routine 06/09/2021 3:14 PM CDT MINT STIVEN MNA HEPARIN/SST TOP TUBE STAT 06/09/2021 3:14 PM CDT GOLD TOP TUBE STAT 06/09/2021 3:14 PM CDT LAVENDER TOP TUBE STAT 06/09/2021 3:1 4 PM CDT LAVENDER TOP TUBE STAT 06/09/2021 3:1 4 PM CDT TROPONIN I (TRP I) STAT 06/09/2021 3: 14 PM CDT PROTIME (PT) (PROTHROMBIN TIME) STAT 06/09/2021 3:14 PM CDT LACTIC ACID (LACTATE) STAT 06/09/2021 3:14 PM CDT CULTURE, BLOOD STAT 06/09/2021 3:14 PM CDT CULTURE, BLOOD STAT 06/09/2021 3:14 PM CDT EKG 12 LEAD STAT 06/09/2021 2:53 PM CDT URINALYSIS REFLEX IF INDICATED BY ABNORMAL RESULTS STAT 06/09/2021 2:37 PM CDT CULTURE, URINE STAT 06/09/2021 2:37 PM CDT EXTRA TUBES STAT 06/09/2021 2:15 PM CDT GOLD TOP TUBE STAT 06/09/2021 2:15 PM CDT LAVENDER TOP TUBE STAT 06/09/2021 2:1 5 PM CDT CBC WITH AUTO DIFFERENTIAL STAT 06/09/2021 2:15 PM CDT CMP (COMPREHENSIVE METABOLIC PANEL) STAT 06/09/2021 2:15 PM CDT COMPLETE BLOOD COUNT (CBC) WITH DIFF STAT 06/09/2021 2:15 PM CDT documented in this encounter Results * (ABNORMAL) POCT Glucose (06/11/2021 8:46 AM CDT) Only the most recent of6 resultswithin the time period is included. [facility] GLUCOSE,BEDSID E POCT 153(H) 70 - 99 mg/dL 06/11/2021 8:52 AM CDT [facility] Blood 06/11/2021 8:46 AM CDT 06/11/2021 8:52 AM CDT us None Provider POINT OF CARE TESTING Final Resu lt [facility] [address] [place] [address] * (ABNORMAL) PROTIME (PT) (PROTHROMBIN TIME) (06/11/2021 8:36 AM CDT) Only the most recent of2 resultswithin the time period is included. [facility] Signature PROTIME-PATIENT 24.3(H) 11.6 - 14.8 sec 06/11/2021 9:21 AM CDT [facility] INR 2.3(H) 0.9 - 1.2 06/11/2021 9:21 AM CDT [facility] Comment: Therapeutic Ranges INR = 2.0-3.0: Venous thromb, atrial fib, pul embolism, tissue heart valve, ami. INR = 2.5-3.5: Mechanical heart valve Critical value for INR is >/= 4.5 Blood Venipuncture / Unknown 06/11/2021 8:36 AM CDT 06/11/2021 8:57 AM CDT Yamil Benoit MD HEMATOLOGY ORDERABLES Fin al Result Performing Organization Address [facility] Co de Phone Number [facility] [address] [place] [address] * Ur Legionella Antigen (06/10/2021 5:42 PM CDT) LEGIONELLA URINE AG Negative Negative 06/11/2021 2:53 PM CDT [facility] Comment:Presumptive Negative for Legionella Pneumophila Serogroup 1 Antigen in urine, suggesting no recent or current infection. Infection due to Legionella cannot be ruled out since other serogroups and species may cause disease. Antigen may not be present in urine in early infection, and the level of antigen present in the urine may be below the detection limit of the test. Other Non-Phlebotomy Collection / Unknown 06/10/2021 5:42 PM CDT 06/10/2021 6:00 PM CDT Yamil Benoit MD URINE ORDERABLES Final Re sult Performing Organization Address [facility] Co de Phone Number [facility] [address] [place] [address], * Mycoplasma Ab IgG & IgM (06/10/2021 5:39 PM CDT) MYCOPLASMA IGG 2.25 ISR 06/13/2021 10:42 AM CDT [facility] Comment: <= 0.90 ?No detectable IgG antibody to Mycoplasma pneumoniae by the MADIHA test. ? Result does not rule out recent exposure and collection of test sample ? prior to development of IgG. 0.91-1.09 ?Suggest repeat specimen. >= 1.10 ?Indicates presence of detectable IgG antibody to Mycoplasma pneumoniae ? by the MADIHA test. Suggests current or previous immunological exposure to ? pneumoniae. ? MYCOPLASMA IGM RAPID Negative Negative 06/13/2021 10:42 AM CDT [facility] Blood Venipuncture / Unknown 06/10/2021 5:39 PM CDT 06/10/2021 6:00 PM CDT us Yamil Benoit MD IMMUNOLOGY ORDERABLES Fin al Result [facility] [address] [place] [address], * Respiratory Pathogen Array (06/10/2021 4:43 PM CDT) ADENOVIRUS NON DETECTED NON DETECTED [facility] 06/10/2021 10:25 PM CDT [facility] Comment:The FilmArray RP det ects Adenovirus species C serotype 2 and serotype 6 with reduced sensitivity. It is recommended that specimens found to be negative for Adenovirus after testing with FilmArray RP be confirmed by an alternate method. CORONAVIRUS 229E NON DETECTED NON DETECTED [facility] 06/10/2021 10:25 PM CDT [facility] CORONAVIRUS HKU1 NON DETECTED NON DETECTED [facility] 06/10/2021 10:25 PM CDT [facility] Comment:The FilmArray RP ass ay for Coronavirus OC43 may cross react with some isolates of Coronavirus HKU1. A dual positive result may be due to cross reactivity or may indicate a co-infection. CORONAVIRUS NL 63 NON DETECTED NON DETECTED [facility] 06/10/2021 10:25 PM CDT [facility] CORONAVIRUS OC43 NON DETECTED NON DETECTED [facility] 06/10/2021 10:25 PM CDT [facility] METAPNEUMOVIRUS NON DETECTED NON DETECTED [facility] 06/10/2021 10:25 PM CDT [facility] RHINO/ENTEROVIRUS NON DETECTED NON DETECTED [facility] 06/10/2021 10:25 PM CDT [facility] Comment:Due to genetic simil arity between Rhinovirus and Enterovirus, the FilmArray RP cannot reliably differentiate them. A positive result should be followed up with an alternate method. INFLUENZA A NON DETECTED NON DETECTED, INVALID [facility] 06/10/2021 10:25 PM CDT [facility] Comment:Performance of detec ting Influenza A may vary if other Influenza strains are circulating or a novel Influenza A virus emerges. INFLUENZA A, H1 NON DETECTED NON DETECTED, INVALID [facility] 06/10/2021 10:25 PM CDT [facility] INFLUENZA A, H3 NON DETECTED NON DETECTED, INVALID [facility] 06/10/2021 10:25 PM CDT [facility] INFLUENZA A, 2009 H1 NON DETECTED NON DETECTED, INVALID [facility] 06/10/2021 10:25 PM CDT [facility] INFLUENZA B NON DETECTED NON DETECTED, INVALID [facility] 06/10/2021 10:25 PM CDT [facility] V[facility]US [address] NON [address] [facility] 06/10/2021 10:25 PM CDT [facility] VIRUS 2 NON DETECTED NON DETECTED [facility] 06/10/2021 10:25 PM CDT [facility] VIRUS 3 NON DETECTED NON DETECTED [facility] 06/10/2021 10:25 PM CDT [facility] VIRUS 4 NON DETECTED NON DETECTED [facility] 06/10/2021 10:25 PM CDT [facility] RESP SYNCITIAL VIRUS NON DETECTED NON DETECTED [facility] 06/10/2021 10:25 PM CDT [facility] BORDETELLA PERTUSSIS NON DETECTED NON DETECTED [facility] 06/10/2021 10:25 PM CDT [facility] Comment:It is recommended th at specimens found to be negative for Bordetella after testing with Film Array RP be confirmed by an alternate method if clinically indicated. CHLAMYDIA PNEUMONIAE NON DETECTED NON DETECTED [facility] 06/10/2021 10:25 PM CDT [facility] MYCOPLASMA PNEUMONIAE NON DETECTED NON DETECTED [facility] TOR 06/10/2021 10:25 PM CDT [facility] BORDETELLA PARAPERTUSSIS ([id number]) NON DETECTED NON DETECTED [facility] 06/10/2021 10:25 PM CDT [facility] SARSCOV2 NOT DETECTED (Reference Range for this test is Not Detected) [facility] 06/10/[facility] 10:25 PM CDT [facility] Comment:This test was perfor med by a RT-PCR method. Other NASOPHARYNGEAL STRUCTURE / Unknown Non-Phlebotomy Collection / Unknown 06/10/2021 4:43 PM CDT 06/10/2021 4:59 PM CDT Narrative [facility] - 06/10/2021 10:25 PM CDT Negative results do not preclude SARS-CoV-2 infection or any other respiratory pathogen. Additional information for Clinicians can be found at: https://www.fda.gov/media/592919/download Additional information for Patients can be found at: https://www.fda.gov/media/046496/download Yamil Benoit MD MICROBIOLOGY - GENERAL OR DERABLES Final Result [facility] [address] [place] [address], * CT CHEST W/O CONTRAST (06/10/2021 2:12 PM CDT) Anatomical Region Laterality Modality Chest N/A Computed Tomogra phy 06/10/2021 2:28 PM CDT Impressions 06/10/2021 2:30 PM CDT IMPRESSION: ?? Extensive consolidation occupying much of the right lower lobe with a small amount consolidation right upper lobe, compatible bronchopneumonia. ??Follow-up CT scan 6-8 weeks after treatment is recommended to ensure resolution. Lymphadenopathy within mediastinum, likely reactive. Evidence for fatty infiltration liver. Narrative 06/10/2021 2:30 PM CDT EXAM DESCRIPTION: ?? CT CHEST W/O CONTRAST REASON FOR STUDY: ?? Pneumonia discovered on CT abdomen and pelvis yesterday the right lower lobe TECHNIQUE: ??CT scan of the chest performed without intravenous contrast using helical scanning technique. Reconstructed coronal and sagittal MPR images reviewed. ??All images stored on PACS. ??Automated exposure control was used as a dose optimization technique for this examination. COMPARISON: ?? CT scan prior day FINDINGS: ??The sensitivity for detection of solid visceral lesions is diminished without the use of intravenous contrast. LUNGS: ??Extensive consolidation is noted occupying much of the right lower lobe, and some of the posterior aspect of the right upper lobe. ??Appearance is compatible with bronchopneumonia. ??The left lung appears clear. PLEURA: ??There is no evidence of pleural effusion for pneumothorax. MEDIASTINUM/SANJUANITA: ??Mediastinal lymphadenopathy is noted. ??Precarinal 1.2 x 2.1 cm lymph node is noted on axial image 40. ??There is some fullness within the right hilar region, without definitive lymphadenopathy, not well assessed in the absence of IV contrast. ?? No axillary, supraclavicular, internal mammary, pericardiophrenic or retrocrural lymphadenopathy is present. HEART: ??Heart is enlarged. ??Atherosclerotic calcifications of the coronary arteries is present. ??Mitral valve calcifications are present. ??Proximal aspects of the great vessels are within normal limits in size. ??Mild atherosclerotic calcification of the aortic arch present. VASCULATURE: ??As above AXILLA: ??No adenopathy. CHEST WALL: ??No masses. ??No subcutaneous air. HARDWARE/LINES/TUBES: ??None. UPPER ABDOMEN: ??The liver demonstrates geographic decreased attenuation. ??Imaged upper abdominal contents appear otherwise unremarkable. MUSCULOSKELETAL: ??Healed anterior left 2nd and 3rd rib fractures are noted. ??Mild osteoarthritic changes of the spine are present. OTHER: ??No other significant abnormality. THIS IS AN ELECTRONICALLY VERIFIED FINAL REPORT 06/10/2021 2:28 PM - Electronically signed by Ricky Pierce M.D. AT: AT D: ??06/10/2021 2:28 PM T: ??06/10/2021 2:28 PM Report ID: [id number] Reading Location: ??[id number] Procedure Note Ricky Pierce MD - 06/10/2021 EXAM DESCRIPTION: CT CHEST W/O CONTRAST REASON [...] Ricky Pierce M.D. AT: AT Report ID: [id number] Reading Location: [id number] IMPRESSION: Extensive consolidation occupying much of the right lower lobe with a small amount consolidation right upper lobe, compatible bronchopneumonia. Follow-up CT scan 6-8 weeks after treatment is recommended to ensure resolution. Lymphadenopathy within mediastinum, likely reactive. Evidence for fatty infiltration liver. Yamil Benoit MD IMG CT ORDERABLES Final R esult * (ABNORMAL) CBC with Auto Differential (06/10/2021 8:16 AM CDT) Only the most recent of2 resultswithin the time period is included. WBC 10.45 4.00 - 12.00 10(3)/mcL 06/10/2021 8:30 AM CDT [facility] RBC 3.84 3.80 - 5.30 10(6)/mcL 06/10/2021 8:30 AM CDT [facility] HEMOGLOBIN (HGB) 12.5 12.0 - 15.8 g/dL 06/10/2021 8:30 AM CDT [facility] HEMATOCRIT (HCT) 38.4 36.0 - 47.0 % 06/10/2021 8:30 AM CDT [facility] MCV 100.0(H) 82.0 - 96.0 fL 06/10/2021 8:30 AM CDT [facility] MCH 32.6 26.0 - 34.0 pg 06/10/2021 8:30 AM CDT [facility] MCHC 32.6 31.0 - 36.0 g/dL 06/10/2021 8:30 AM CDT [facility] PLATELET COUNT 244 140 - 440 10(3)/mcL 06/10/2021 8:30 AM CDT [facility] RDW 13.1 11.8 - 15.5 % 06/10/2021 8:30 AM CDT [facility] MPV 9.3(L) 9.7 - 12.4 fL 06/10/2021 8:30 AM CDT [facility] NEUTROPHILS 74.2(H) 47.0 - 73.0 % 06/10/2021 8:30 AM CDT [facility] LYMPHOCYTES 10.4(L) 18.0 - 42.0 % 06/10/2021 8:30 AM CDT [facility] MONOCYTES 15.3(H) 4.0 - 12.0 % 06/10/2021 8:30 AM CDT [facility] EOSINOPHILS 0.0 0.0 - 5.0 % 06/10/2021 8:30 AM CDT [facility] BASOPHILS 0.1 0.0 - 1.0 % 06/10/2021 8:30 AM CDT [facility] ABSOLUTE NEUTROPHILS 7.75(H) 1.60 - 7.70 10(3)/[facility] 06/10/2021 8:30 AM CDT [facility] ABSOLUTE LYMPHOCYTES 1.09(L) 1.30 - 3.20 10(3)/[facility] 06/10/2021 8:30 AM CDT [facility] ABSOLUTE MONOCYTES 1.60(H) 0.20 - 1.00 10(3)/[facility] 06/10/2021 8:30 AM CDT [facility] ABSOLUTE EOSINOPHIL 0.00 0.00 - 0.40 10(3)/[facility] 06/10/2021 8:30 AM CDT [facility] ABSOLUTE BASOPHILS 0.01 0.00 - 0.10 10(3)/[facility] 06/10/2021 8:30 AM CDT [facility] NRBC PER 100 WBC 0 06/10/20 8:30 AM CDT [facility] Blood Venipuncture / Unknown 06/10/2021 8:16 AM CDT 06/10/2021 8:24 AM CDT us Tito Tirado PENOLOGY TEACHER, AVIONICS SYSTEMS REPAIRER HEMATOLOGY ORDERABLES F inal Result [facility] [address] [place] [address] * (ABNORMAL) Procalcitonin (06/10/2021 8:16 AM CDT) PROCALCITONIN 0.77(H) <=0.25 ng/mL [facility] ARCH [id number] A 06/10/2021 2:53 PM CDT [facility] Blood Venipuncture / Unknown 06/10/2021 8:16 AM CDT 06/10/2021 8:25 AM CDT Narrative [facility] - 06/10/2021 2:53 PM CDT If the differential diagnosis is systemic bacterial infection, sepsis, or septic shock use these guidelines: <=0.25 ng/mL: Low risk for systemic bacterial infection, sepsis, or septic shock. ??Localized bacterial infection possible: Suggest re-testing in 24 hours >=0.50 ng/mL: ??Systemic bacterial infection, sepsis, or septic shock are possible: suggest re-testing in approximately 24 hours. ?? If the differential diagnosis is suspected lower respiratory tract infection (LRTI) or there is confirmed LRTI: < 0.1 ng/mL: ?? Suggests absence of bacterial infection. ?? Antibiotic therapy strongly discouraged. 0.1-0.25 ng/mL: ??Suggests bacterial infection is unlikely. ??Antibiotic therapy discouraged. 0.26-0.5 ng/mL: ??Suggests possible bacterial infection. ??Antibiotic therapy encouraged. > 0.5 ng/mL: Suggests bacterial infection. ?? Antibiotic therapy strongly encouraged us Tito Tirado PENOLOGY TEACHER, AVIONICS SYSTEMS REPAIRER IMMUNOLOGY ORDERABLES F inal Result [facility] [address] [place] [address], * (ABNORMAL) BMP with Ca, Total (06/10/2021 8:16 AM CDT) SODIUM 134(L) 136 - 144 mmol/L 06/10/2021 9:07 AM CDT [facility] POTASSIUM 3.6 3.5 - 5.1 mmol/L 06/10/2021 9:07 AM CDT [facility] CHLORIDE 100 100 - 110 mmol/L 06/10/2021 9:07 AM CDT [facility] CO2, VENOUS 22 22 - 32 mmol/L 06/10/2021 9:07 AM CDT [facility] ANION GAP 15.6 8.0 - 20.0 mmol/L 06/10/2021 9:07 AM CDT [facility] GLUCOSE 132(H) 70 - 99 mg/dL 06/10/2021 9:07 AM CDT [facility] BUN 19 8 - 23 mg/dL 06/10/2021 9:07 AM CDT [facility] CREATININE, BLOOD 0.58(L) 0.60 - 1.10 mg/dL 06/10/2021 9:07 AM CDT [facility] BUN/CREATININE RATIO 33(H) 12 - 20 ratio 06/10/2021 9:07 AM CDT [facility] CALCIUM 8.2(L) 8.9 - 10.3 mg/dL 06/10/2021 9:07 AM CDT [facility] GFR, EST. NONAFRICAN >60 >=60 06/10/2021 9:07 AM CDT [facility] GFR, EST. >60 >=60 06/10/2021 9:07 AM CDT [facility] Comment: Creatinine Clearance is the preferred criteria for selecting drug dose adjustments in renally impaired patients. ??The GFR is provided as additional pertinent clinical information. GFR is reported in mL/min/1.73 sq m. Blood Venipuncture / Unknown 06/10/2021 8:16 AM CDT 06/10/2021 8:25 AM CDT us Tito Tirado PENOLOGY TEACHER, AVIONICS SYSTEMS REPAIRER CHEMISTRY ORDERABLES Fi nal Result [facility] [address] [place] [address] * XR CHEST SINGLE VIEW PORTABLE (06/09/2021 5:18 PM CDT) Anatomical Region Laterality Modality Chest N/A Digital Radiogra phy 06/09/2021 5:36 PM CDT Impressions 06/09/2021 5:39 PM CDT IMPRESSION: ?? 1. ??Known right basilar pneumonia is largely obscured by the right heart border on this examination. ??There may be minimal infiltrate in the inferior right upper lobe. 2. ??No effusion or pneumothorax. 3. ??Cardiac silhouette borderline enlarged, accentuated by technique and position Narrative 06/09/2021 5:39 PM CDT EXAM DESCRIPTION: ?? XR CHEST SINGLE VIEW PORTABLE REASON FOR STUDY: ?? pneumonia found on CT today h/o ex smoker, A-FIB, CHF, HTN, stent TECHNIQUE: ?? Frontal radiographic view of the chest acquired. COMPARISON: ?? CT examination dated 06/09/2021 and chest radiograph dated 09/01/2014 FINDINGS: ??LUNGS/PLEURA: ??There is minimal interstitial opacity demonstrated in the right base, similar to the prior study. ??There is airspace opacity within the medial aspect of the right lung base, obscured by the right heart border. ??Minimal opacity in the inferior right upper lobe cannot be excluded on this examination. ??There is no effusion or pneumothorax. HEART/MEDIASTINUM: ??The cardiac silhouette is at the upper limits of normal in size. HARDWARE/LINES/TUBES: ??Sternotomy changes are noted. BONES: ??Degenerative changes, without acute process. OTHER: ??No other significant finding. THIS IS AN ELECTRONICALLY VERIFIED FINAL REPORT 06/09/2021 5:36 PM - Electronically signed by Rody Batres M.D. TB: TB D: ??06/09/2021 5:36 PM T: ??06/09/2021 5:36 PM Report ID: [id number] Reading Location: ??[id number] Procedure Note Rody Batres MD - 06/09/2021 EXAM DESCRIPTION: XR CHEST SINGLE VIEW PORTABLE REASON FOR STUDY: pneumonia found on CT today h/o ex smoker, A-FIB, CHF, HTN, stent TECHNIQUE: Frontal radiographic view of the chest acquired. COMPARISON: CT examination dated 06/09/2021 and chest radiograph dated 09/01/2014 FINDINGS: LUNGS/PLEURA: There is minimal interstitial opacity demonstrated in the right base, similar to the prior study. There is airspace opacity within the medial aspect of the right lung base, obscured by the right heart border. Minimal opacity in the inferior right upper lobe cannot be excluded on this examination. There is no effusion or pneumothorax. HEART/MEDIASTINUM: The cardiac silhouette is at the upper limits of normal in size. HARDWARE/LINES/TUBES: Sternotomy changes are noted. BONES: Degenerative changes, without acute process. OTHER: No other significant finding. THIS IS AN ELECTRONICALLY VERIFIED FINAL REPORT 06/09/2021 5:36 PM - Electronically signed by Rody Batres M.D. TB: TB Report ID: [id number] Reading Location: [facility] IMPRESSION: 1. Known right basilar pneumonia is largely obscured by the right heart border on this examination. There may be minimal infiltrate in the inferior right upper lobe. 2. No effusion or pneumothorax. 3. Cardiac silhouette borderline enlarged, accentuated by technique and position Rob Martinez PENOLOGY TEACHER, AVIONICS SYSTEMS REPAIRER IMG DIAGNOSTIC ORDER MONA Final Result * SARS-COV-2 BY MOLECULAR (06/09/2021 5:14 PM CDT) SARSCOV2 NOT DETECTED (Referenc e Range for this test is Not Detected) [facility] [employer] ID NOW B 06/09/2021 5:30 PM CDT [facility] Comment:This test was perfor med by a MOLECULAR, NON-PCR method Other NASOPHARYNGEAL STRUCTURE / Unknown Non-Phlebotomy Collection / Unknown 06/09/2021 5:14 PM CDT 06/09/2021 5:14 PM CDT Narrative [facility] - 06/09/2021 5:30 PM CDT This test has been authorized by the FDA under an Emergency Use Authorization (EUA) only. Negative results should be treated as presumptive and, if inconsistent with clinical signs and symptoms or necessary for patient management, the patient should be tested with an alternative molecular assay. Negative results do not preclude SARS-CoV-2 infection or any other respiratory pathogen. Additional information for Clinicians can be found at: https://www.fda.gov/media/209587/download Additional information for Patients can be found at: https://www.fda.gov/media/015937/download Rob Martinez APRN, AVIONICS SYSTEMS REPAIRER MICROBIOLOGY - GENER AL ORDERABLES Final Result Performing Organization Address City/[facility]/ZIP Co de Phone Number [facility] [address] [place] [address] * Lactic Acid (Lactate), Serum - Timed (Second draw 2 hours after first) (06/09/2021 5:13 PM CDT) Only the most recent of2 resultswithin the time period is included. LACTIC ACID 1.4 0.5 - 2.0 mmol/L 06/09/2021 5:36 PM CDT [facility] Blood Venipuncture / Unknown 06/09/2021 5:13 PM CDT 06/09/2021 5:13 PM CDT Rob Martinez APRN, GAIL CHEMISTRY ORDERABLES Final Result Performing Organization Address [facility] Co de Phone Number [facility] [address] [place] [address] * CT ABDOMEN PELVIS W/ CONTRAST (06/09/2021 4:22 PM CDT) Anatomical Region Laterality Modality Abdomen N/A Computed Tomogra phy 06/09/2021 4:42 PM CDT Impressions 06/09/2021 4:45 PM CDT IMPRESSION: ?? 1. ??Right lower lobe consolidation consistent with pneumonia or aspiration. 2. ??Cardiomegaly. 3. ??Extensive colonic diverticulosis without evidence of acute diverticulitis. 4. ??Severe atherosclerotic disease of the abdominal aorta and bilateral iliacs. 5. ??Mild hepatic steatosis. Narrative 06/09/2021 4:45 PM CDT EXAM DESCRIPTION: ?? CT ABDOMEN PELVIS W/ CONTRAST REASON FOR STUDY: ?? Nausea and vomiting with abdominal pain for 4 days. TECHNIQUE: ??CT scan of the abdomen and pelvis performed with intravenous and ??without oral contrast using helical scanning technique with dynamic intravenous contrast injection. Reconstructed coronal and sagittal MPR images reviewed. All images stored on PACS. Automated exposure control was used as a dose optimization technique for this examination. CONTRAST TYPE/DOSE: ?? 100 mL Isovue 370 injected via ??right antecubital COMPARISON: ?? Correlation is made with a right upper quadrant abdominal ultrasound 03/17/2021 FINDINGS: ??LOWER CHEST: ??Right lower lobe consolidation. ?? Cardiomegaly with biatrial enlargement. ??Partially visualized postoperative changes of median sternotomy and cardiac surgery. ?? Nodular focus at the left lung base axial image 33 favored to relate to atelectasis. LIVER: ??Mild hepatic steatosis. GALLBLADDER: ??No stones identified. No wall thickening or inflammatory changes. BILE DUCTS: ??No intrahepatic or extrahepatic ductal dilatation. SPLEEN: ??Unremarkable. PANCREAS: ??No peripancreatic fat stranding. ??No pancreatic ductal dilatation. ADRENALS: ??Nodular thickening of both adrenal glands. KIDNEYS/URINARY TRACT: ??Symmetric enhancement of the kidneys. ?? Bilateral extrarenal pelves are noted. ??Subcentimeter low-attenuation lesions involving both kidneys which are too small to characterize. ??No hydronephrosis or urinary tract calculi identified. ??Urinary bladder is unremarkable. GI: ??Extensive colonic diverticulosis without evidence of acute diverticulitis. ??No evidence of small-bowel obstruction. ??Normal appendix. ??Small sliding hiatal hernia. PERITONEUM: ??No ascites or free air. RETROPERITONEUM: ??No mass or adenopathy. REPRODUCTIVE: ??Unremarkable VASCULATURE: ??Severe atherosclerotic disease of the abdominal aorta, branch vessels, and bilateral iliacs. ??No abdominal aortic aneurysm. Extensive splenic artery calcifications. ??The celiac trunk and SMA appear patent. ??Narrowing at the inferior mesenteric artery origin without complete occlusion identified on these portal venous phase images. MUSCULOSKELETAL: ??Decreased bone mineralization. ??Advanced multilevel lumbar spondylosis. THIS IS AN ELECTRONICALLY VERIFIED FINAL REPORT 06/09/2021 4:42 PM - Electronically signed by Manfred Jesus M.D. PARVEZ: PARVEZ D: ??06/09/2021 4:42 PM T: ??06/09/2021 4:42 PM Report ID: [id number] Reading Location: ??[id number] Procedure Note Manfred Jesus MD - 06/09/2021 EXAM DESCRIPTION: CT ABDOMEN PELVIS W/ CONTRAST REASON FOR STUDY: Nausea and vomiting with abdominal pain for 4 days. TECHNIQUE: CT scan of the abdomen and pelvis performed with intravenous and without oral contrast using helical scanning technique with dynamic intravenous contrast injection. Reconstructed coronal and sagittal MPR images reviewed. All images stored on PACS. Automated exposure control was used as a dose optimization technique for this examination. CONTRAST TYPE/DOSE: 100 mL Isovue 370 injected via right antecubital COMPARISON: Correlation is made with a right upper quadrant abdominal ultrasound 03/17/2021 FINDINGS: LOWER CHEST: Right lower lobe consolidation. Cardiomegaly with biatrial enlargement. Partially visualized postoperative changes of median sternotomy and cardiac surgery. Nodular focus at the left lung base axial image 33 favored to relate to atelectasis. LIVER: Mild hepatic steatosis. GALLBLADDER: No stones identified. No wall thickening or inflammatory changes. BILE DUCTS: No intrahepatic or extrahepatic ductal dilatation. SPLEEN: Unremarkable. PANCREAS: No peripancreatic fat stranding. No pancreatic ductal dilatation. ADRENALS: Nodular thickening of both adrenal glands. KIDNEYS/URINARY TRACT: Symmetric enhancement of the kidneys. Bilateral extrarenal pelves are noted. Subcentimeter low-attenuation lesions involving both kidneys which are too small to characterize. No hydronephrosis or urinary tract calculi identified. Urinary bladder is unremarkable. GI: Extensive colonic diverticulosis without evidence of acute diverticulitis. No evidence of small-bowel obstruction. Normal appendix. Small sliding hiatal hernia. PERITONEUM: No ascites or free air. RETROPERITONEUM: No mass or adenopathy. REPRODUCTIVE: Unremarkable VASCULATURE: Severe atherosclerotic disease of the abdominal aorta, branch vessels, and bilateral iliacs. No abdominal aortic aneurysm. Extensive splenic artery calcifications. The celiac trunk and SMA appear patent. Narrowing at the inferior mesenteric artery origin without complete occlusion identified on these portal venous phase images. MUSCULOSKELETAL: Decreased bone mineralization. Advanced multilevel lumbar spondylosis. THIS IS AN ELECTRONICALLY VERIFIED FINAL REPORT 06/09/2021 4:42 PM - Electronically signed by Manfred Jesus M.D. PARVEZ: PARVEZ Report ID: [id number] Reading Location: [id number] IMPRESSION: 1. Right lower lobe consolidation consistent with pneumonia or aspiration. 2. Cardiomegaly. 3. Extensive colonic diverticulosis without evidence of acute diverticulitis. 4. Severe atherosclerotic disease of the abdominal aorta and bilateral iliacs. 5. Mild hepatic steatosis. Rob Martinez PENOLOGY TEACHER, AVIONICS SYSTEMS REPAIRER IMG CT ORDERABLES Fi nal Result * (ABNORMAL) Hemoglobin A1C (if indicated) (06/09/2021 3:14 PM CDT) HGB-A1C 7.1(H) 4.0 - 6.0 % 06/10/2021 1:41 AM CDT [facility] Est Average Glucose 157.1 mg/dL 06/10/2021 1:41 AM CDT [facility] Blood No Phlebotomy Charged / Unknown 06/09/2021 3:14 PM CDT 06/09/2021 3:34 PM CDT Narrative [facility] - 06/10/2021 1:41 AM CDT HEMOGLOBIN A1C: DIABETIC PATIENTS: WELL-CONTROLLED: ?? 6.2 - 7.0 INTERMEDIATE WELL-CONTROLLED: ??7.0 - 9.0 POORLY-CONTROLLED: ??>9.0 us Tito Tirado PENOLOGY TEACHER, AVIONICS SYSTEMS REPAIRER CHEMISTRY ORDERABLES Fi nal Result [facility] [place] [address] * Troponin I (Trp I) (06/09/2021 3:14 PM CDT) TROPONIN I <0.300 <=0.300 ng/mL 06/09/2021 7:43 PM CDT [facility] Blood Venipuncture / Unknown 06/09/2021 3:14 PM CDT 06/09/2021 7:14 PM CDT Rob Martinez PENOLOGY TEACHER, AVIONICS SYSTEMS REPAIRER CHEMISTRY ORDERABLES Final Result Performing Organization Address [facility] Co de Phone Number [facility] [address] [place] [address] * STIVEN JON HEPARIN/SST TOP TUBE (06/09/2021 3:14 PM CDT) Blood No Phlebotomy Charged / Unknown 06/09/2021 3:14 PM CDT 06/09/2021 3:34 PM CDT Rob Martinez PENOLOGY TEACHER, AVIONICS SYSTEMS REPAIRER HEMATOLOGY ORDERABLE S Final Result Performing Organization Address [facility] de Phone Number [facility] [address] [place] [address] * Lavender Top Tube (06/09/2021 3:14 PM CDT) Only the most recent of3 resultswithin the time period is included. Blood No Phlebotomy Charged / Unknown 06/09/2021 3:14 PM CDT 06/09/2021 3:34 PM CDT Rob Martinez PENOLOGY TEACHER, AVIONICS SYSTEMS REPAIRER HEMATOLOGY ORDERABLE S Final Result Performing Organization Address City/[facility] Co de Phone Number [facility] [address] [place] [address] * Gold Top Tube (06/09/2021 3:14 PM CDT) Only the most recent of2 resultswithin the time period is included. Blood No Phlebotomy Charged / Unknown 06/09/2021 3:14 PM CDT 06/09/2021 3:34 PM CDT Rob Martinez APRN, AVIONICS SYSTEMS REPAIRER CHEMISTRY ORDERABLES Final Result [facility] [place] [address] * Blood Culture - Peripheral #2 (06/09/2021 3:14 PM CDT) Only the most recent of2 resultswithin the time period is included. CULTURE RESULTS NO GROWTH WITHIN 5 DAYS, FINAL RESULT 06/14/2021 4:01 PM CDT [facility] Culture BLOOD SPECIMEN / Unknown Venipuncture / Unknown 06/09/2021 3:14 PM CDT 06/09/2021 3:29 PM CDT Rob Martinez APRN, AVIONICS SYSTEMS REPAIRER MICROBIOLOGY - GENER AL ORDERABLES Final Result Performing Organization Address City/[facility]/ZIP Co de Phone Number [facility] [address] [place] [address], * EKG 12 LEAD (06/09/2021 2:53 PM CDT) Ventricular Rate BPM EXTERNAL EKG Atrial Rate BPM EXTERNAL EKG P-R Interval ms EXTERNAL EKG QRS Duration 92 ms EXTERNAL EKG Q-T Duration 336 ms EXTERNAL EKG QTC CALCULATION 466 ms EXTERNAL EKG P [place] degrees EXTERNAL EKG R [place] 61 degrees EXTERNAL EKG T [place] -52 degrees EXTERNAL EKG 06/09/2021 2:53 PM CDT Impressions EXTERNAL EKG - 06/10/2021 1:58 PM CDT Atrial fibrillation with rapid ventricular response Diffuse ST-T abnormality may be due to myocardial ischemia or non specific Comparison Summary: No serial comparison made Summary: Abnormal ECG [place] [id number] on 06/10/2021 1:58:13 PM Narrative Procedure Note Sarah Ndiaye MD - 06/10/2021 IMPRESSION: Atrial fibrillation with rapid ventricular response Diffuse ST-T abnormality may be due to myocardial ischemia or nonspecific Comparison Summary: No serial comparison made Summary: Abnormal ECG Confirmed by Senthil Avilez [id number] on 06/10/2021 1:58:13 PM Rob Martinez APRN, GAIL IMG ECG ORDERABLES F inal Result EXTERNAL EKG * Culture, Urine (06/09/2021 2:37 PM CDT) CULTURE RESULTS MIXED GROWTH OF 3 OR MORE ORGANISMS, PROBABLE COLLECTION CONTAMINATION, SUGGEST REPEAT URINE CULTURE. 06/10/2021 8:18 PM CDT [facility] Urine URINE SPECIMEN COLLECTION, CLEAN CATCH / Unknown Non-Phlebotomy Collection / Unknown 06/09/2021 2:37 PM CDT 06/09/2021 3:06 PM CDT Rob Martinez APRN, GAIL MICROBIOLOGY - GENER AL ORDERABLES Final Result Performing Organization Address City/[facility]/ZIP Co de Phone Number [facility] [address] [place] [address], * (ABNORMAL) Urinalysis Reflex if Indicated by Abnormal Results (06/09/2021 2:37 PM CDT) Pathologist [facility] SPECIFIC GRAVITY 1.010 1.003 - 1.030 06/09/2021 3:40 PM CDT [facility] URINE PH 6.0 5.0 - 9.0 06/09/2021 3:40 PM CDT [facility] WBC ESTERASE 25 /uL(A) Negative 06/09/2021 3:40 PM CDT [facility] NITRITE Negative Negative 06/09/2021 3:40 PM CDT [facility] PROTEIN, RANDOM URINE 30 mg/dL(A) Negative 06/09/2021 3:40 PM CDT [facility] URINE GLUCOSE, QUAL 1000 mg/dL(A) Negative 06/09/2021 3:40 PM CDT [facility] URINE KETONES 15 mg/dL(A) Negative 06/09/2021 3:40 PM CDT [facility] UROBILINOGEN Normal Normal mg/dL 06/09/2021 3:40 PM CDT [facility] URINE BLOOD 50 /uL(A) Negative minerva/ul 06/09/2021 3:40 PM CDT [facility] URINALYSIS COLOR Yellow 06/09/20 3:40 PM CDT [facility] URINALYSIS CLARITY Slightly Cloudy 06/09/2021 3:40 PM CDT [facility] WBC (Urine) 0-5 Negative, 0-5 /hpf 06/09/2021 3:40 PM CDT [facility] URINE RBC'S 3-5(A) Negative, 0-2 /hpf 06/09/2021 3:40 PM CDT [facility] EPITHELIAL CELLS Moderate amount /lpf 06/09/2021 3:40 PM CDT [facility] BACTERIA, URINE Negative Negative /hpf 06/09/2021 3:40 PM CDT [facility] Urine URINE SPECIMEN COLLECTION, CLEAN CATCH / Unknown Non-Phlebotomy Collection / Unknown 06/09/2021 2:37 PM CDT 06/09/2021 3:06 PM CDT Rob Martinez PENOLOGY TEACHER, AVIONICS SYSTEMS REPAIRER URINE ORDERABLES Fin al Result [facility] [place] [address] * (ABNORMAL) CMP (Comprehensive Metabolic Panel) (06/09/2021 2:15 PM CDT) SODIUM 126(L) 136 - 144 mmol/L 06/09/2021 3:00 PM CDT [facility] POTASSIUM 4.7 3.5 - 5.1 mmol/L 06/09/2021 3:00 PM CDT [facility] CHLORIDE 88(L) 100 - 110 mmol/L 06/09/2021 3:00 PM CDT [facility] CO2, VENOUS 23 22 - 32 mmol/L 06/09/2021 3:00 PM CDT [facility] ANION GAP 19.7 8.0 - 20.0 mmol/L 06/09/2021 3:00 PM T [facility] GLUCOSE 177(H) 70 - 99 mg/dL 06/09/2021 3:00 PM T [facility] BUN 27(H) 8 - 23 mg/dL 06/09/2021 3:00 PM T [facility] CREATININE, BLOOD 1.01 0.60 - 1.10 mg/dL 06/09/2021 3:00 PM [facility] BUN/CREATININE RATIO 27(H) 12 - 20 ratio 06/09/2021 3:00 PM [facility] TOTAL PROTEIN 7.6 6.0 - 8.3 g/dL 06/09/2021 3:00 PM [facility] ALBUMIN 3.1(L) 3.5 - 5.2 g/dL 06/09/2021 3:00 PM [facility] Comment: The colormetric methods used for the determination of Albumin may lead to falsely elevated test results in patients suffering from renal failure or insufficiency due to interference with other proteins. A/G RATIO 0.7(L) 1.0 - 2.0 06/09/2021 3:00 PM T [facility] CALCIUM 8.6(L) 8.9 - 10.3 mg/dL 06/09/2021 3:00 PM T [facility] T BILI 0.6 <=1.2 mg/dL 06/09/2021 3:00 PM T [facility] SGOT (AST) 48(H) <=32 U/L 06/09/2021 3:00 PM [facility] Comment: Hemolysis present: results may be falsely elevated. SGPT (ALT) 27 <=41 U/L 06/09/2021 3:00 PM CDT [facility] Comment: Hemolysis present: results may be falsely elevated. ALKALINE PHOSPHATASE 84 35 - 105 U/L 06/09/2021 3:00 PM CDT [facility] GFR, EST. NONAFRICAN 55(L) >=60 06/09/2021 3:00 PM CDT [facility] GFR, EST. >60 >=60 021 3:00 PM CDT [facility] Comment: Creatinine Clearance is the preferred criteria for selecting drug dose adjustments in renally impaired patients. ??The GFR is provided as additional pertinent clinical information. GFR is reported in mL/min/1.73 sq m. Blood Venipuncture / Unknown 06/09/2021 2:15 PM CDT 06/09/2021 2:29 PM CDT Rob Martinez PENOLOGY TEACHER, AVIONICS SYSTEMS REPAIRER CHEMISTRY ORDERABLES Final Result [facility] [place] [address] documented in this encounter Visit Diagnoses Diagnosis Acute pyelonephritis- Primary Acute pyelonephritis without lesion of renal medullary necrosis Acute pyelonephritis Acute pyelonephritis without lesion of renal medullary necrosis Pneumonia of right lower lobe due to infectious organism Sepsis without acute organ dysfunction, due to unspecified organism (HCC) Hyponatremia Hyposmolality and/or hyponatremia Sepsis (HCC) Aspiration by without respiratory symptoms documented in this encounter Admitting Diagnoses Diagnosis Acute pyelonephritis Acute pyelonephritis without lesion of renal medullary necrosis Sepsis (HCC) documented in this encounter Administered Medications Inactive Administered Medications - up to 3 most recent administrations Medication Order MAR Action Action Date Dose Rate Site 0.9 % sodium chloride solution at 100 mL/hr, Intravenous, CONTINUOUS, Starting on Ange 06/09/21 at 2330, Until 06/11/21 at 0812 New Bag 06/11/2021 1:25 AM CDT 100 mL/hr New Bag 06/10/2021 11:45 AM CDT 100 mL/hr New Bag 06/10/2021 12:30 AM CDT 100 mL/hr acetaminophen (TYLENOL) suppository 650 mg 650 mg, Rectal, EVERY 4 HOURS PRN, Starting on Ange 06/09/21 at 2256, Until 06/11/21 at 1911, Mild pain or more severe pain if patient requests, Fever, If patient is taking oral intake without complications and both PO/WY orders are active, administer through the oral route. acetaminophen (TYLENOL) tablet 650 mg 650 mg, Oral, EVERY 4 HOURS PRN, Starting on Ange 06/09/21 at 2256, Until 06/11/21 at 1911, Mild pain or more severe pain if patient requests, Fever, If patient is taking oral intake without complications and both PO/WY orders are active, administer through the oral route. aspirin EC tablet 81 mg 81 mg, Oral, DAILY, First dose on Sun06/10/21 at 0900, Until Discontinued, Do not crush. Given 06/11/2021 8:32 AM CDT 8 1 mg Given 06/10/2021 8:41 AM CDT 81 mg calcium carbonate (TUMS) chewable tablet 1,000 mg 1,000 mg, Oral, EVERY 8 HOURS PRN, Starting on Ange 06/09/21 at 2254, Until 06/11/21 at 1911, Heartburn, Indigestion dextrose 50 % solution 12.5 g 12.5 g, Intravenous, PRN, Starting on Ange 06/09/21 at 2254, Until 06/11/21 at 191, Low blood sugar, If IV patent in patient with blood glucose of 50 or less, or Unconscious, Conscious but NPO or Unable to Swallow regardless of blood glucose, administer 1 dose of dextrose 50% solution. gabapentin (NEURONTIN) capsule 600 mg 600 mg, Oral, DAILY, First dose on Sun06/10/21 at 0900, Until Discontinued Given 06/11/2021 8:33 AM CDT 600 mg Given 06/10/2021 8:41 AM CDT 600 mg glucagon injection SOLR 1 mg 1 mg, Intramuscular, PRN, Starting on Ange 06/09/21 at 2254, Until 06/11/21 at 191, Low blood sugar, If patient has no intravenous access and blood glucose of 50 or less, or Unconscious, Conscious but NPO or Unable to Swallow regardless of blood glucose administer 1 dose of glucagon. Glucagon may cause vomiting. Position patient on the side. glucagon injection SOLR 1 mg 1 mg, Subcutaneous, PRN, Starting on Ange 06/09/21 at 2254, Until 06/11/21 at 1911, Low blood sugar, If patient has no intravenous access and blood glucose of 50 or less, or Unconscious, Conscious but NPO or Unable to Swallow regardless of blood glucose administer 1 dose of glucagon. Glucagon may cause vomiting. Position patient on the side. glucose (GLUTOSE) 40 % gel GEL 15 g 15 g, Oral, PRN, Starting on Ange 06/09/21 at 2254, Until 06/11/21 at 1911, Low blood sugar, Dose is based on glucose. 37.5 g tube = 15 GRAMS of GLUCOSE. For 15 GRAM GLUCOSE dose, give entire 37.5 g size tube. Administer 1 dose if patient is unable to take food, but conscious and able to swallow HYDROcodone-acetaminophen (NORCO) 5-325 MG per tablet 1 Tablet 1 Tablet, Oral, EVERY 4 HOURS PRN, Starting on Ange 06/09/21 at 2256, Until 06/11/21 at 1911, Moderate pain or more severe pain if patient requests, Maximum dose of acetaminophen is 4000 mg from all sources in 24 hours.If pain not effectively managed, then contact provider to discuss possibly 1) adding scheduled opioid dosing or non-opioid pain treatments, 2) increasing dosage, or 3) changing to TRANSONIC ENGINEER. Given 06/11/2021 1:20 AM CDT 1 Tablet Given 06/10/2021 11:43 AM CDT 1 Tablet Given 06/10/2021 1:00 AM CDT 1 Tablet insulin lispro (HumaLOG) 100 UNIT/ML injection 3-15 Units 3-15 Units, Subcutaneous, 4 TIMES DAILY WITH MEALS & NIGHTLY, First dose on Sun06/10/21 at 0800, Until Discontinued, MODERATE SLIDING SCALE If BS is: [70-180, give no correction Insulin] [181-200, give 3 Units] [201-250, give 6 Units] [251-300, give 9 Units] [301-350, give 11 Units] [351-400, give 13 Units] [Greater than 400, give 15 Units and call physician] Given 06/10/2021 8:48 PM CDT 3 Units Left Lateral Upper A rm Given 06/10/2021 4:47 PM CDT 3 Units Le ft Lateral Upper Arm iopamidol (ISOVUE-370) 76 % injection 100 mL 100 mL, Intravenous, ONCE, 1 dose, On Sun06/09/21 at 1630 Given 06/09/2021 4:20 PM CDT 100 mL ketorolac (TORADOL) injection 15 mg 15 mg, Intravenous, ONCE, 1 dose, On Sun06/10/21 at 1700 Given 06/10/2021 4:47 PM CDT 15 mg levoFLOXacin (LEVAQUIN) IV 750 mg 750 mg, Intravenous, EVERY 24 HOURS, 3 doses, First dose on Sun06/09/21 at 1500, Last dose on Sun06/11/21 at 1500, Administer over 90 Minutes, Indications: Urinary Tract Infection, cystitis, at 100 mL/hrIndications:Urinary Tract Infection,cystitis New Bag 06/09/2021 3:27 PM CDT 750 mg 100 mL/hr levoFLOXacin (LEVAQUIN) IV 750 mg 750 mg, Intravenous, EVERY 24 HOURS, First dose (after last modification) on Sun06/10/21 at 1500, Until Discontinued, Administer over 90 Minutes, Indications: Urinary Tract Infection, cystitis, at 100 mL/hrIndications:Urinary Tract Infection,cystitis New Bag 06/11/2021 12:00 PM CDT 750 mg 100 mL/hr New Bag 06/10/2021 4:34 PM CDT 750 mg 100 mL/hr levothyroxine (SYNTHROID) tablet 75 mcg 75 mcg, Oral, EVERY MORNING BEFORE BREAKFAST, First dose (after last modification) on Sun06/10/21 at 0730, Until Discontinued Given 06/11/2021 8:32 AM CDT 75 mcg Given 06/10/2021 8:41 AM CDT 75 mcg losartan (COZAAR) tablet 50 mg 50 mg, Oral, DAILY, First dose on Sun06/10/21 at 0900, Until Discontinued Given 06/10/2021 8:41 AM CDT 50 mg magnesium hydroxide (MILK OF MAGNESIA) 400 MG/5ML suspension 30 mL 30 mL, Oral, DAILY PRN, Starting on Sun06/09/21 at 2254, Until Sun06/11/21 at 1911, Constipation - 3rd line, Magnesium hydroxide 400 mg/5 ml = 166.7 mg elemental magnesium/5ml. Hold for loose stools (loose, liquid, mucoid, soft, watery stool that takes the shape of the container) or greater than 2 moderate or larger stools in 24hrsIndications:Constipation melatonin tablet 6 mg 6 mg, Oral, NIGHTLY PRN, Starting on Ange 06/09/21 at 2254, Until 06/11/21 at 1911, Other, Sleep metoprolol Succinate (TOPROL-XL) XL tablet 150 mg 150 mg, Oral, DAILY, First dose on Sun06/10/21 at 0900, Until Discontinued, Do not crush. Given 06/10/2021 8:41 AM CDT 150 mg metoprolol Succinate (TOPROL-XL) XL tablet 50 mg 50 mg, Oral, DAILY, First dose (after last modification) on 06/11/21 at 0900, Until Discontinued, Do not crush. Given 06/11/2021 8:32 AM CDT 50 mg ondansetron (ZOFRAN) injection 4 mg 4 mg, Intravenous, EVERY 6 HOURS PRN, Starting on Ange 06/09/21 at 2254, Until 06/11/21 at 191, Nausea - 1st line, 1. First Line Antiemetic. 2. Use Injection only if patient unable to tolerate oral medications. ondansetron (ZOFRAN-ODT) disintegrating tablet 4 mg 4 mg, Oral, EVERY 6 HOURS PRN, Starting on Ange 06/09/21 at 2254, Until 06/11/21 at 191, Nausea - 1st line, 1. First Line Antiemetic. 2. Use PO form unless unable to tolerate PO medications, then use Injection PARoxetine (PAXIL) tablet 40 mg 40 mg, Oral, DAILY, First dose on Sun06/10/21 at 0900, Until Discontinued, Do not crush. Given 06/11/2021 8:32 AM CDT 40 mg Given 06/10/2021 8:41 AM CDT 40 mg polyethylene glycol (GLYCOLAX, MIRALAX) packet 17 g 17 g, Oral, 2 TIMES DAILY PRN, Starting on Ange 06/09/21 at 2254, Until 06/11/21 at 191, Constipation - 1st line, Dilute dose in 120 - 240 mL of beverage.Hold for loose stools (loose, liquid, mucoid, soft, watery stool that takes the shape of the container) or greater than 2 moderate or larger stools in 24hrsIndications:Constipation senna (SENOKOT) tablet 8.6 mg 8.6 mg (1 Tablet), Oral, 2 TIMES DAILY PRN, Starting on Sun06/09/21 at 2254, Until 06/11/21 at 1911, Constipation - 2nd line simvastatin (ZOCOR) tablet 40 mg 40 mg, Oral, EVERY EVENING, First dose on Sun06/10/21 at 1800, Until Discontinued Given 06/10/2021 5:01 PM CDT 40 mg sodium chloride 0.9 % 1,000 mL IV bolus 1,000 mL, Intravenous, ONCE, 1 dose, On Ange 06/09/21 at 1500, Administer over 0.5 Hours New Bag 06/09/2021 2:48 PM CDT 1,000 mL 2000 mL/hr sodium chloride 0.9 % 750 mL IV bolus 750 mL, Intravenous, ONCE, 1 dose, On Ange 06/09/21 at 1500, Administer over 0.375 Hours New Bag 06/09/2021 3:33 PM CDT 750 mL 200 0 mL/hr SODIUM CHLORIDE 0.9 % IV SOLN 1 dose, Starting on Sun06/09/21 at 1440, Until 06/11/21 at 1911, Created by shy branch warfarin (COUMADIN) tablet 3 mg 3 mg, Oral, ONCE, 1 dose, On Sun06/10/21 at 1800 Given 06/10/2021 5:01 PM CDT 3 mg WARFARIN/COUMADIN THERAPY Miscellaneous, EVERY EVENING, First dose on Sun06/10/21 at 1800, Until Discontinued, This order is a communication order only. The patient is receiving Warfarin therapy and having INR values monitored on a routine basis. Please use 'Acknowledge' MAR action to document this on the MAR. documented in this encounter Active and Recently Administered Medications Times are shown in CDT. Scheduled Medication Order 06/09/2021 06/10/2021 06/11/2021 aspirin EC tablet 81 mg 81 mg, Oral, DAILY, First dose on Sun06/10/21 at 0900, Until Discontinued, Do not crush. 0841 (Given - Provider: Khalida Alva RN) 0832 (Given - Provider: Carly Cuevas RN) gabapentin (NEURONTIN) capsule 600 mg 600 mg, Oral, DAILY, First dose on Sun06/10/21 at 0900, Until Discontinued 0841 (Given - Provider: Khalida Alva RN) 0833 (Given - Provider: Carly Cuevas, JUSTICE) insulin lispro (HumaLOG) 100 UNIT/ML injection 3-15 Units 3-15 Units, Subcutaneous, 4 TIMES DAILY WITH MEALS & NIGHTLY, First dose on Sun06/10/21 at 0800, Until Discontinued, MODERATE SLIDING SCALE If BS is: [70-180, give no correction Insulin] [181-200, give 3 Units] [201-250, give 6 Units] [251-300, give 9 Units] [301-350, give 11 Units] [351-400, give 13 Units] [Greater than 400, give 15 Units and call physician] 0800 (Not Given - Provider: Khalida Alva RN - Reason: Order parameters not met)1200 (Not Given - Provider: Khalida Alva RN - Reason: Order parameters not met)1647 (Given - Provider: Khalida Alva RN)2048 (Given - Provider: Ginette Burnett RN - Comment: BS 200) 0800 (Not Given - Provider: Carly Cuevas RN - Reason: Order parameters not met)1200 (Not Given - Provider: Carly Cuevas RN - Reason: Other - see comment) iopamidol (ISOVUE-370) 76 % injection 100 mL (COMPLETED) 100 mL, Intravenous, ONCE, 1 dose, On Ange 06/09/21 at 1630 1620 (Given - Provider: Rozina Walsh, RT(R) (CT)) ketorolac (TORADOL) injection 15 mg (COMPLETED) 15 mg, Intravenous, ONCE, 1 dose, On Sun06/10/21 at 1700 1647 (Given - Provider: Khalida Alva RN) levoFLOXacin (LEVAQUIN) IV 750 mg (CANCELED) 750 mg, Intravenous, EVERY 24 HOURS, 3 doses, First dose on Ange 06/09/21 at 1500, Last dose on Sun06/11/21 at 1500, Administer over 90 Minutes, Indications: Urinary Tract Infection, cystitis, at 100 mL/hr 1527 (New Bag - Provider: Carlene Aparicio, JUSTICE)1807 (Stopped - Provider: Carlene Aparicio RN) levoFLOXacin (LEVAQUIN) IV 750 mg 750 mg, Intravenous, EVERY 24 HOURS, First dose (after last modification) on Sun06/10/21 at 1500, Until Discontinued, Administer over 90 Minutes, Indications: Urinary Tract Infection, cystitis, at 100 mL/hr 1634 (New Bag - Provider: Khalida Alva RN)1804 (Stopped - Provider: Khalida Alva RN) 1200 (New Bag - Provider: Carly Cuevas RN)1452 (Stopped - Provider: Carly Cuevas RN) levothyroxine (SYNTHROID) tablet 75 mcg 75 mcg, Oral, EVERY MORNING BEFORE BREAKFAST, First dose (after last modification) on Sun06/10/21 at 0730, Until Discontinued 0841 (Given - Provider: Khalida Alva RN) 0832 (Given - Provider: Carly Cuevas RN) losartan (COZAAR) tablet 50 mg (CANCELED) 50 mg, Oral, DAILY, First dose on Sun06/10/21 at 0900, Until Discontinued 0841 (Given - Provider: Khalida Alva RN) metoprolol Succinate (TOPROL-XL) XL tablet 150 mg (CANCELED) 150 mg, Oral, DAILY, First dose on Sun06/10/21 at 0900, Until Discontinued, Do not crush. 0841 (Given - Provider: Khalida Alva RN) metoprolol Succinate (TOPROL-XL) XL tablet 50 mg 50 mg, Oral, DAILY, First dose (after last modification) on Sun06/11/21 at 0900, Until Discontinued, Do not crush. 0832 (Given - Provider: Carly Cuevas RN) PARoxetine (PAXIL) tablet 40 mg 40 mg, Oral, DAILY, First dose on Sun06/10/21 at 0900, Until Discontinued, Do not crush. 0841 (Given - Provider: Khalida Alva RN) 0832 (Given - Provider: Carly Cuevas RN) simvastatin (ZOCOR) tablet 40 mg 40 mg, Oral, EVERY EVENING, First dose on Sun06/10/21 at 1800, Until Discontinued 1701 (Given - Provider: Khalida Alva RN) sodium chloride 0.9 % 1,000 mL IV bolus (COMPLETED)(Linked Group 1) 1,000 mL, Intravenous, ONCE, 1 dose, On Ange 06/09/21 at 1500, Administer over 0.5 Hours 1448 (New Bag - Provider: Carlene Aparicio RN)1643 (Stopped - Provider: Carlene Aparicio RN) sodium chloride 0.9 % 750 mL IV bolus (COMPLETED)(Linked Group 1) 750 mL, Intravenous, ONCE, 1 dose, On Ange 06/09/21 at 1500, Administer over 0.375 Hours 1533 (New Bag - Provider: Carlene Aparicio, JUSTICE)1807 (Stopped - Provider: Carlene Aparicio, RN) warfarin (COUMADIN) tablet 3 mg (COMPLETED) 3 mg, Oral, ONCE, 1 dose, On Sun06/10/21 at 1800 1701 (Given - Provider: Khalida Alva, JUSTICE) WARFARIN/COUMADIN THERAPY Miscellaneous, EVERY EVENING, First dose on Sun06/10/21 at 1800, Until Discontinued, This order is a communication order only. The patient is receiving Warfarin therapy and having INR values monitored on a routine basis. Please use 'Acknowledge' MAR action to document this on the OCT. 1800 (Acknowledged - Provider: Khalida Alva, JUSTICE) Continuous Medication Order 06/09/2021 06/10/2021 06/11/2021 0.9 % sodium chloride solution (CANCELED) at 100 mL/hr, Intravenous, CONTINUOUS, Starting on Ange 06/09/21 at 2330, Until 06/11/21 at 0812 0030 (New Bag - Provider: Nurys Godfrey, JUSTICE)1145 (New Bag - Provider: Khalida Alva, JUSTICE) 0124 (Stopped - Provider: Ginette Burnett, JUSTICE)0125 (New Bag - Provider: Ginette Burnett, JUSTICE)0830 (Stopped - Provider: Carly Cuevas, JUSTICE) PRN Medication Order 06/09/2021 06/10/2021 06/11/2021 acetaminophen (TYLENOL) suppository 650 mg(Linked Group 2) 650 mg, Rectal, EVERY 4 HOURS PRN, Starting on Ange 06/09/21 at 2256, Until 06/11/21 at 1911, Mild pain or more severe pain if patient requests, Fever, If patient is taking oral intake without complications and both PO/WY orders are active, administer through the oral route. acetaminophen (TYLENOL) tablet 650 mg(Linked Group 2) 650 mg, Oral, EVERY 4 HOURS PRN, Starting on Ange 06/09/21 at 2256, Until 06/11/21 at 1911, Mild pain or more severe pain if patient requests, Fever, If patient is taking oral intake without complications and both PO/WY orders are active, administer through the oral route. calcium carbonate (TUMS) chewable tablet 1,000 mg 1,000 mg, Oral, EVERY 8 HOURS PRN, Starting on Ange 06/09/21 at 2254, Until 06/11/21 at 1911, Heartburn, Indigestion dextrose 50 % solution 12.5 g(Linked Group 3) 12.5 g, Intravenous, PRN, Starting on Ange 06/09/21 at 2254, Until 06/11/21 at 1911, Low blood sugar, If IV patent in patient with blood glucose of 50 or less, or Unconscious, Conscious but NPO or Unable to Swallow regardless of blood glucose, administer 1 dose of dextrose 50% solution. glucagon injection SOLR 1 mg(Linked Group 3) 1 mg, Intramuscular, PRN, Starting on Ange 06/09/21 at 2254, Until 06/11/21 at 1911, Low blood sugar, If patient has no intravenous access and blood glucose of 50 or less, or Unconscious, Conscious but NPO or Unable to Swallow regardless of blood glucose administer 1 dose of glucagon. Glucagon may cause vomiting. Position patient on the side. glucagon injection SOLR 1 mg(Linked Group 3) 1 mg, Subcutaneous, PRN, Starting on Ange 06/09/21 at 2254, Until 06/11/21 at 1911, Low blood sugar, If patient has no intravenous access and blood glucose of 50 or less, or Unconscious, Conscious but NPO or Unable to Swallow regardless of blood glucose administer 1 dose of glucagon. Glucagon may cause vomiting. Position patient on the side. glucose (GLUTOSE) 40 % gel GEL 15 g(Linked Group 3) 15 g, Oral, PRN, Starting on Ange 06/09/21 at 2254, Until 06/11/21 at 1911, Low blood sugar, Dose is based on glucose. 37.5 g tube = 15 GRAMS of GLUCOSE. For 15 GRAM GLUCOSE dose, give entire 37.5 g size tube. Administer 1 dose if patient is unable to take food, but conscious and able to swallow HYDROcodone-acetaminophen (NORCO) 5-325 MG per tablet 1 Tablet 1 Tablet, Oral, EVERY 4 HOURS PRN, Starting on Ange 06/09/21 at 2256, Until 06/11/21 at 1911, Moderate pain or more severe pain if patient requests, Maximum dose of acetaminophen is 4000 mg from all sources in 24 hours.If pain not effectively managed, then contact provider to discuss possibly 1) adding scheduled opioid dosing or non-opioid pain treatments, 2) increasing dosage, or 3) changing to TRANSONIC ENGINEER. 0100 (Given - Provider: Nurys Godfrey, RN)1143 (Given - Provider: Khalida Alva, JUSTICE) 0120 (Given - Provider: Ginette Burnett RN) magnesium hydroxide (MILK OF MAGNESIA) 400 MG/5ML suspension 30 mL 30 mL, Oral, DAILY PRN, Starting on Ange 06/09/21 at 2254, Until 06/11/21 at 1911, Constipation - 3rd line, Magnesium hydroxide 400 mg/5 ml = 166.7 mg elemental magnesium/5ml. Hold for loose stools (loose, liquid, mucoid, soft, watery stool that takes the shape of the container) or greater than 2 moderate or larger stools in 24hrs melatonin tablet 6 mg 6 mg, Oral, NIGHTLY PRN, Starting on Ange 06/09/21 at 2254, Until 06/11/21 at 1911, Other, Sleep ondansetron (ZOFRAN) injection 4 mg(Linked Group 4) 4 mg, Intravenous, EVERY 6 HOURS PRN, Starting on Ange 06/09/21 at 2254, Until 06/11/21 at 1911, Nausea - 1st line, 1. First Line Antiemetic. 2. Use Injection only if patient unable to tolerate oral medications. ondansetron (ZOFRAN-ODT) disintegrating tablet 4 mg(Linked Group 4) 4 mg, Oral, EVERY 6 HOURS PRN, Starting on Ange 06/09/21 at 2254, Until 06/11/21 at 1911, Nausea - 1st line, 1. First Line Antiemetic. 2. Use PO form unless unable to tolerate PO medications, then use Injection polyethylene glycol (GLYCOLAX, MIRALAX) packet 17 g 17 g, Oral, 2 TIMES DAILY PRN, Starting on Ange 06/09/21 at 2254, Until 06/11/21 at 1911, Constipation - 1st line, Dilute dose in 120 - 240 mL of beverage.Hold for loose stools (loose, liquid, mucoid, soft, watery stool that takes the shape of the container) or greater than 2 moderate or larger stools in 24hrs senna (SENOKOT) tablet 8.6 mg 8.6 mg (1 Tablet), Oral, 2 TIMES DAILY PRN, Starting on Ange 06/09/21 at 2254, Until 06/11/21 at 1911, Constipation - 2nd line traMADol (ULTRAM) tablet 50 mg 50 mg, Oral, EVERY 6 HOURS PRN, Starting on Ange 06/09/21 at 2308, Until 06/11/21 at 1911, Moderate pain or more severe pain if patient requests No Frequency Medication Order 06/09/2021 06/10/2021 06/11/2021 SODIUM CHLORIDE 0.9 % IV SOLN 1 dose, Starting on Ange 06/09/21 at 1440, Until 06/11/21 at 1911, Created by cabinet override Linked Groups Order Group 1: sodium chloride 0.9 % 1,000 mL IV bolus (COMPLETED)Jump to med 1,000 mL, Intravenous, ONCE, 1 dose, On Ange 06/09/21 at 1500, Administer over 0.5 Hours Followed by sodium chloride 0.9 % 750 mL IV bolus (COMPLETED)Jump to med 750 mL, Intravenous, ONCE, 1 dose, On Ange 06/09/21 at 1500, Administer over 0.375 Hours Group 2: acetaminophen (TYLENOL) tablet 650 mgJump to med 650 mg, Oral, EVERY 4 HOURS PRN, Starting on Ange 06/09/21 at 2256, Until 06/11/21 at 1911, Mild pain or more severe pain if patient requests, Fever, If patient is taking oral intake without complications and both PO/WY orders are active, administer through the oral route. Or acetaminophen (TYLENOL) suppository 650 mgJump to med 650 mg, Rectal, EVERY 4 HOURS PRN, Starting on Ange 06/09/21 at 2256, Until 06/11/21 at 191, Mild pain or more severe pain if patient requests, Fever, If patient is taking oral intake without complications and both PO/WY orders are active, administer through the oral route. Group 3: glucose (GLUTOSE) 40 % gel GEL 15 gJump to med 15 g, Oral, PRN, Starting on Ange 06/09/21 at 2254, Until 06/11/21 at 191, Low blood sugar, Dose is based on glucose. 37.5 g tube = 15 GRAMS of GLUCOSE. For 15 GRAM GLUCOSE dose, give entire 37.5 g size tube. Administer 1 dose if patient is unable to take food, but conscious and able to swallow Or dextrose 50 % solution 12.5 gJump to med 12.5 g, Intravenous, PRN, Starting on Ange 06/09/21 at 2254, Until 06/11/21 at 191, Low blood sugar, If IV patent in patient with blood glucose of 50 or less, or Unconscious, Conscious but NPO or Unable to Swallow regardless of blood glucose, administer 1 dose of dextrose 50% solution. Or glucagon injection SOLR 1 mgJump to med 1 mg, Intramuscular, PRN, Starting on Ange 06/09/21 at 2254, Until 06/11/21 at 191, Low blood sugar, If patient has no intravenous access and blood glucose of 50 or less, or Unconscious, Conscious but NPO or Unable to Swallow regardless of blood glucose administer 1 dose of glucagon. Glucagon may cause vomiting. Position patient on the side. Or glucagon injection SOLR 1 mgJump to med 1 mg, Subcutaneous, PRN, Starting on Ange 06/09/21 at 2254, Until 06/11/21 at 191, Low blood sugar, If patient has no intravenous access and blood glucose of 50 or less, or Unconscious, Conscious but NPO or Unable to Swallow regardless of blood glucose administer 1 dose of glucagon. Glucagon may cause vomiting. Position patient on the side. Group 4: ondansetron (ZOFRAN-ODT) disintegrating tablet 4 mgJump to med 4 mg, Oral, EVERY 6 HOURS PRN, Starting on Ange 06/09/21 at 2254, Until 06/11/21 at 191, Nausea - 1st line, 1. First Line Antiemetic. 2. Use PO form unless unable to tolerate PO medications, then use Injection Or ondansetron (ZOFRAN) injection 4 mgJump to med 4 mg, Intravenous, EVERY 6 HOURS PRN, Starting on Ange 06/09/21 at 2254, Until 06/11/21 at 1911, Nausea - 1st line, 1. First Line Antiemetic. 2. Use Injection only if patient unable to tolerate oral medications. documented in this encounter Additional Health Concerns Infection Onset Date Last Indicated Resolved Time COVID - 19 Comment:Vaccinated; nondetected x2; acute pyelonephritis 06/06/2021 06/09/2021 06/10/2021 6:46 AM CDT Respiratory Rule Out - RPA 06/10/2021 06/10/2021 1 10:25 PM CDT documented as of this encounter Care Teams Tariff Supervisor Relationship Specialty Start Date End Date Jovita Bermudez MD [address] [place] [address] PCP - General Family Medicine 11/30/20 07/21/23 documented as of this encounter
--- OUTSIDE RECORDS SUMMARY | 2024-08-30 18:50 | XMS_ITS | Encounter Summary ---
Author Organization [facility] Address [address] [place] [address] Phone Care Team Providers Care Consulting Nurse Name Role Phone Jovita Bermudez MD Primary Care Provider [phone] Reason for Visit * Reason Comments Medication Refill Encounter Details Date Type Department Care Team (Late st Contact Info) Description 12/14/2021 Refill [facility] [address] [place] [address] Bhargavi Morel, ARAM [address] [place] [address] Medication Refill Social History Tobacco Use Types [...] Encounter - Reanna Rios RN - 12/14/2021 3:38 PM CDT Medication(s) refilled and signed per [facility] Chronic Medication Refill Standing Order for Pediatricand Adult Patients. Requested Prescriptions Pending Prescriptions Disp Refills ??? Jardiance 25 MG Tablet [Pharmacy Med Name: JARDIANCE 25MG TABS] 30 Tablet 2 Sig: TAKE ONE TABLET BY MOUTH EVERY DAY SGLT2 Inhibitors Protocol Passed - 12/14/2021 10:11 AM Passed - Visit with relevant provider in past 6 months or upcoming 90 days Recent Visits Date Type Provider Dept 08/25/21 [facility] [place] Showing recent visits within past 182 [...] st Contact Info) Description 10/29/2024 9:30 AM FILLING AND PACKING SUPERVISOR Office Visit [facility] - Family Medicine [facility] [address] [place] [address] Bhargavi Morel PAC [address] [place] [address] documented as of this encounter Visit Diagnoses Not on filedocumented in this encounter Care Teams Consulting Nurse Relationship Specialty Start Date End Date Jovita Bermudez MD [address] [place] [address] PCP - General Family Medicine 11/30/20 07/21/23 documented as of this encounter
--- OUTSIDE RECORDS SUMMARY | 2024-08-30 18:50 | XMS_ITS | Encounter Summary ---
Author Organization [facility] Address [address] [place] [address] Phone Care Team Providers Care Street Vendor Name Role Phone Jovita Bermudez MD Primary Care Provider [phone] Reason for Visit * Reason Comments Sleep Apnea Restless Leg Encounter Details Date Type Department Care Team ([facility] st Contact Info) Description 11/09/2021 11:15 AM CDT Office Visit [facility] - Pulmonology & Sleep Medicine [facility] [address] [place] [address] Flaquito Hurd MD [address] [place] [id number] AMOR (obstructive sleep apnea) (Primary Dx); Permanent atrial fibrillation (HCC); Essential (primary) hypertension Discharge Disposition: Discharged to home or Selfcare [...] Sign Reading Time Taken Comments Blood Pressure 110/62 11/09/2021 11:21 AM CDT Pulse 66 11/09/2021 11:21 AM CDT Temperature 36.6 ??C (97.8 ??F) 11/09/2021 11:21 AM C DT Respiratory Rate 18 11/09/2021 11:21 AM CDT Oxygen Saturation 94% 11/09/2021 11:21 AM CDT Inhaled Oxygen Concentration - - Weight 99.3 kg (219 lb) 11/09/2021 11:21 AM CDT Height 165.1 cm (5' 5 ) 11/09/2021 11:21 AM CDT Body Mass Index 36.44 11/09/2021 11:21 AM CDT documented in this encounter Progress Notes * Flaquito Hurd MD - 11/09/2021 11:15 AM CDT Images from the original note were not included. Progress Note Subjective: HPI: Tressa Myers is a 66 y.o. female with following problems came for a follow-up .Reviewed SD card data she using CPAP more than 4 hours 29% time ?? CPAP is set at 14 cm for ?? Overall AHI 1.5 Less EDS .Patient sleep study done on December 13, 2020 that showed Severe obstructive sleep apnea with apnea-hypopnea index of 48 lowest O2 sat was 67% She required CPAP pressure of 14 cm water She also had periodic leg movements +COVID shot?? Has FFM requip caused nausea Her CPAP mask was leaking. 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 albuterol 108 (90 Base) MCG/ACT Aerosol Solution take 2 Puffs by inhalation every 4 hours as needed for Wheezing or Cough. 8 g 0 ??? Ascorbic Acid 500 MG Chewable Tablet [...] THEN USE TWICE A WEEK MA ??? dilTIAZem (CARDIZEM CD) 120 MG CAPSULE SR 24 HR Take 1 Capsule by mouth daily. 90 Capsule 3 ??? furosemide (LASIX) 40 MG Tablet Take 0.5 Tablets by mouth daily. 90 Tablet 1 ??? gabapentin (NEURONTIN) 600 MG Tablet Take 1 Tablet by mouth daily. 90 Tablet 1 ??? Glucose Blood Strip Diagnosis: Diabetes type 2 Blood testing frequency: once a day 100 Strip 3 ??? Januvia 100 MG Tablet TAKE ONE TABLET BY MOUTH EVERY DAY 90 Tablet 1 ??? Jardiance 25 MG Tablet TAKE ONE TABLET BY MOUTH EVERY DAY 30 Tablet 2 ??? levothyroxine (SYNTHROID) 75 MCG Tablet Take 1 Tablet by mouth daily. 90 Tablet 1 ??? losartan (COZAAR) 25 MG Tablet ??? metFORMIN (GLUCOPHAGE) 1000 MG Tablet TAKE ONE TABLET BY MOUTH TWICE A DAY 180 Tablet 1 ??? metoprolol Succinate (TOPROL-XL) 100 MG TABLET SR 24 HR Take 2 Tablets by mouth daily. (Patienttaking differently: Take 150 mg by mouth daily.) 135 Tablet 1 ??? mupirocin (BACTROBAN) 2 % Ointment APPLY TO OPEN SORES ON ARMS THREE TIMES DAILY FOR 1 WEEK ??? PARoxetine (PAXIL) 40 MG Tablet TAKE ONE TABLET BY MOUTH EVERY DAY 90 Tablet 1 ??? simvastatin (ZOCOR) 40 MG Tablet Take 1 tablet by mouth once daily 90 Tablet 1 ??? traMADol (ULTRAM) 50 MG Tablet TAKE 1 TABLET BY MOUTH EVERY 6 HOURS NEEDED FOR MODERATE OR SEVERE PAIN. 28 Tablet 0 ??? VITAMIN D PO [...] Other (see Comments) Objective: Vitals: Blood pressure 110/62, pulse 66, temperature 97.8 ??F (36.6 ??C), temperature source Temporal, resp. rate 18, height 5' 5 (1.651 m), weight 219 lb (99.3 kg), SpO2 94 %. Gen/Constitutional: No distress HEENT: Normocephalic, atraumatic. [...] 1. AMOR (obstructive sleep apnea) G47.33 2. Permanent atrial fibrillation (HCC) I48.21 3. Essential (primary) hypertension I10 Plan: Continue CPAP A sleep hygiene Continue gabapentin Antihypertensives Continue Coumadin Return in about 6 months (around 05/12/2022). Documentation for this visit on November 09 was completed using a template. I have seen and examinedthe patient. Everything documented was personally performed at this visit with the necessary additions, deletions and changes made as appropriate. Flaquito Hurd MD 11/09/2021 11:35 AM CDT documented in this encounter Plan of Treatment Upcoming Encounters Date Type Department Care Team (Late st Contact Info) Description 10/29/2024 9:30 AM CRUDE OIL TREATER Office Visit [facility] [address] [place] [address] Bhargavi Morel PAC [address] [place] [address] documented as of this encounter Visit Diagnoses Diagnosis AMOR (obstructive sleep apnea)- Primary Obstructive sleep apnea (adult) (pediatric) Permanent atrial fibrillation (HCC) Atrial fibrillation Essential (primary) hypertension Unspecified essential hypertension documented in this encounter Care Teams Street Vendor Relationship Specialty Start Date End Date Jovita Bermudez MD [address] [place] [address] PCP - General Family Medicine 11/30/20 07/21/23 documented as of this encounter
--- OUTSIDE RECORDS SUMMARY | 2024-08-30 18:50 | XMS_ITS | Encounter Summary ---
Author Organization [facility] Address [address] [place] [address] Phone Care Team Providers Care [employer] Weapons Sergeant Name Role Phone Jovita Bermudez MD Primary Care Provider [phone] Reason for Referral * Consult, Test & Initiate Treatment (Less Than 2 Weeks) - Closed Specialty Diagnoses / Procedures Referred By Contjuani t Referred To Contact Diagnoses Long toenail Procedures OFFICE/OP NEW LVL 3 LOW MDM/30-44 MIN OFFICE/OP EST LVL 3 LOW MDM/20-29 MIN Jovita Bermudez MD [address] [place] [address] Phone: tel: fax: Olesya Calhoun, [address] [address] Phone: tel: fax: Referral ID Status Reason Start Date Expiration Date Visits Re quested Visits Authorized [id number] Closed 09/05/2022 08/30/2023 1 11 Scheduling Instructions Tressa is being referred to Dr. Calhoun at [facility] or other specialist in patient's insurance network for toenail clipping. See below for Tressa's current medications, allergies and problem list. CURRENT MEDS: Current Outpatient Medications: albuterol 108 (90 Base) MCG/ACT Aerosol Solution, take 2 Puffs by inhalation every 4 hours as needed for Wheezing or Cough., Disp: 8 g, Rfl: 0 Ascorbic Acid 500 MG Chewable Tablet, Take 500 mg by mouth., Disp: , Rfl: aspirin EC 81 MG Tablet Delayed Response, Take 81 mg by mouth., Disp: , Rfl: atorvastatin (LIPITOR) 20 MG Tablet, Take 1 Tablet by mouth daily., Disp: 90 Tablet, Rfl: 3 Blood Glucose Monitoring Suppl Device, glDiagnosis: Diabetes type 2 Blood testing frequency: once a day, Disp: 1 Each, Rfl: 0 clobetasol (TEMOVATE) 0.05 % Gel, APPLY TO NEW LESIONS ON ARMS COVER WITH TAPE THEN WASH OFF IN THE MORNING. REPEAT PROCESS UNTIL LESIONS ARE FLAT THEN USE TWICE A WEEK MA, Disp: , Rfl: dilTIAZem (CARDIZEM CD) 120 MG CAPSULE SR 24 HR, TAKE ONE CAPSULE BY MOUTH EVERY DAY, Disp: 90 Capsule, Rfl: 2 fluconazole (DIFLUCAN) 150 MG Tablet, Take 1 Tablet by mouth once for 1 dose., Disp: 1 Tablet, Rfl: 0 furosemide (LASIX) 40 MG Tablet, Take 0.5 Tablets by mouth daily. (Patient not taking: Reported on 05/04/2022), Disp: 90 Tablet, Rfl: 1 gabapentin (NEURONTIN) 600 MG Tablet, TAKE 1 TABLET BY MOUTH DAILY, Disp: 90 Tablet, Rfl: 1 Glucose Blood Strip, Diagnosis: Diabetes type 2 Blood testing frequency: once a day, Disp: 100 Strip, Rfl: 3 Januvia 100 MG Tablet, TAKE ONE TABLET BY MOUTH ONCE DAILY, Disp: 90 Tablet, Rfl: 1 Jardiance 25 MG Tablet, TAKE ONE TABLET BY MOUTH EVERY DAY, Disp: 30 Tablet, Rfl: 2 levothyroxine (SYNTHROID) 75 MCG Tablet, TAKE ONE [...] mouth daily.), Disp: 135 Tablet, Rfl: 1 mupirocin (BACTROBAN) 2 % Ointment, APPLY TO OPEN SORES ON ARMS THREE TIMES DAILY FOR 1 WEEK, Disp: , Rfl: PARoxetine (PAXIL) 40 MG Tablet, TAKE ONE TABLET BY MOUTH EVERY DAY, Disp: 90 Tablet, Rfl: 1 traMADol (ULTRAM) [...] of right knee Acute pyelonephritis Sepsis (HCC) LOPER PROVER UPHOLSTERING Reason for Visit * Reason Onset Date Comments Referral 09/05/2022 Encounter Details Date Type Department Care Team (Late st Contact Info) Description 09/05/2022 Telephone [facility] [address] [place] [id number] Jovita Bermudez MD [address] [place] [address] Referral Social History Tobacco Use Types Packs/Day Years [...] Miscellaneous Notes * Telephone Encounter - Reanna Ruth RN - 09/05/2022 8:33 AM CST Patient is requesting a referral to (speciality) podiatry Referral requested for ( be specific on symptoms from patient) thick toenails that need clipping Does patient had a specific provider they would to see? If yes include name/location: Dr. Calhoun [facility] Has patient been seen by this speciality in past? No Patient has an appointment scheduled on 09/21/22. Would provider be willing to sign referral? Referral pended for your review. LOPER PROVER UPHOLSTERING documented in this encounter Plan of Treatment Upcoming Encounters Date Type Department Care Team (Late st Contact Info) Description 10/29/2024 9:30 AM DEVELOPER PROVER UPHOLSTERING Office Visit [facility] [address] [place] [address] Bhargavi Morel PAC [address] [place] [address] Scheduled Referrals Name Type Priority Associated Diagnoses Order Schedule EXTERNAL PODIATRY REFERRAL Outpatient Referral Less Than 2 weeks Long toenail Expected: 09/05/2022, Expires: 09/05/2023 documented as of this encounter Visit Diagnoses Diagnosis Long toenail- Primary Other specified disease of nail documented in this encounter Additional Health Concerns Assessment Noted Time PHQ-9 Depression Total Score: 0 05/04/20 22 1:35 PM CDT documented as of this encounter Care Teams [employer] Weapons Sergeant Relationship Specialty Start Date End Date Jovita Bermudez MD [address] [place] [address] PCP - General Family Medicine 11/30/20 07/21/23 documented as of this encounter
--- OUTSIDE RECORDS SUMMARY | 2024-08-30 18:50 | XMS_ITS | Encounter Summary ---
Author Organization [facility] Address [address] [place] [address] Phone Care Team Providers Care Service Or Work Dispatcher Name Role Phone Jovita Bermudez MD Primary Care Provider [phone] Reason for Visit * Reason Comments Follow-up 3 mo Encounter Details Date Type Department Care Team (Late st Contact Info) Description 08/25/2021 1:40 PM CIVIL CAD TECH Office Visit [facility] [place] [address] [place] [address] Jovita Bermudez MD [address] [place] [address] Screen for colon cancer (Primary Dx); Pain and swelling of right knee; Essential (primary) hypertension; Dyslipidemia; Type 2 diabetes mellitus without complication, without long-term current use of insulin (HCC); Atrial thrombus; Anxiety Discharge Disposition: Discharged to home or Selfcare [...] COVID-19? No / Unsure 08/25/2021 1:10 PM CIVIL CAD TECH documented as of this encounter Last Filed Vital Signs Vital Sign Reading Time Taken Comments Blood Pressure 132/78 08/25/2021 1:25 PM CIVIL CAD TECH Pulse 78 08/25/2021 1:25 PM CIVIL CAD TECH Temperature 36.6 ??C (97.8 ??F) 08/25/2021 1:25 PM CS T Respiratory Rate 16 08/25/2021 1:25 PM CIVIL CAD TECH Oxygen Saturation 96% 08/25/2021 1:25 PM CIVIL CAD TECH Inhaled Oxygen Concentration - - Weight 100.7 kg (222 lb) 08/25/2021 1:25 PM CIVIL CAD TECH Height 165.1 cm (5' 5 ) 08/25/2021 1:25 PM CIVIL CAD TECH Body Mass Index 36.94 08/25/2021 1:25 PM CIVIL CAD TECH documented in this encounter Progress Notes * Lo Bray RMA - 08/25/2021 1:40 PM CST Tressa Myers, 66 y.o., female is here for Follow-up (3 mo) Medication Refills: Patient reports/denies need for medication refills. Orders Pended: no Requested Prescriptions No prescriptions requested or ordered in this encounter Home Medications Medication Sig Start Date End Date Taking? Authorizing Provider albuterol 108 (90 Base) MCG/ACT Aerosol Solution take 2 Puffs by inhalation every 4 hours as neededfor Wheezing or Cough. 06/11/21 Yamil Benoit MD Ascorbic Acid 500 MG Chewable Tablet Take 500 mg by mouth. ProviderHomero MD aspirin EC 81 MG Tablet Delayed Response Take 81 mg by mouth. ProviderHomero MD Blood Glucose Monitoring Suppl Device glDiagnosis: Diabetes type 2 Blood testing frequency: once a day 02/23/21 Jovita Bermudez MD clobetasol (TEMOVATE) 0.05 % Gel APPLY TO NEW LESIONS ON ARMS COVER WITH TAPE THEN WASH OFF IN THE MORNING. REPEAT PROCESS UNTIL LESIONS ARE FLAT THEN USE TWICE A WEEK MA 11/24/20 ProviderHomero MD dilTIAZem (CARDIZEM CD) 120 MG CAPSULE SR 24 HR Take 1 Capsule by mouth daily. 06/14/21 Bhargavi Morel PAC furosemide (LASIX) 40 MG Tablet Take 0.5 Tablets by mouth daily. 05/04/21 Jovita Bermudez MD gabapentin (NEURONTIN) 600 MG Tablet Take 1 Tablet by mouth daily. 04/04/21 Flaquito Hurd MD Glucose Blood Strip Diagnosis: Diabetes type 2 Blood testing frequency: once a day 02/23/21 Jovita Bermudez MD Januvia 100 MG Tablet TAKE ONE TABLET BY MOUTH EVERY DAY 08/16/21 Jovita Bermudez MD Jardiance 25 MG Tablet TAKE ONE TABLET BY MOUTH EVERY DAY 06/14/21 Jovita Bermudez MD levothyroxine (SYNTHROID) 75 MCG Tablet Take 1 Tablet by mouth daily. 01/19/21 Jovita Bermudez MD losartan (COZAAR) 25 MG Tablet 06/13/21 ProviderHomero MD metFORMIN (GLUCOPHAGE) 1000 MG Tablet Take 1 Tablet by mouth 2 times daily. 01/19/21 Jovita Bermudez MD metoprolol Succinate (TOPROL-XL) 100 MG TABLET SR 24 HR Take 2 Tablets by mouth daily. Patient taking differently: Take 150 mg by mouth daily. 05/04/21 Jovita Bermudez MD mupirocin (BACTROBAN) 2 % Ointment APPLY TO OPEN SORES ON ARMS THREE TIMES DAILY FOR 1 WEEK 11/23/20Homero Pugh MD PARoxetine (PAXIL) 40 MG Tablet TAKE ONE TABLET BY MOUTH EVERY DAY 05/25/21 Jovita Bermudez MD simvastatin (ZOCOR) 40 MG Tablet Take 1 tablet by mouth once daily 03/09/21 Jovita Bermudez MD traMADol (ULTRAM) 50 MG Tablet TAKE ONE TABLET BY MOUTH EVERY 6 HOURS NEEDED FOR MODERATE OR MORE SEVERE PAIN 06/06/21 Jovita Bermudez MD VITAMIN D PO Take by mouth daily. ProviderHomero MD warfarin (COUMADIN) 2 MG Tablet [...] have been addressed with the patient today: TDAP mammogram ccs L CAD TECH * Jovita Bermudez MD - 08/25/2021 1:40 PM CST Gertrudis comes in for a followup on diabetes, hypothyroidism, and hypertension. She recently saw her preparation operator, states she is anticipating a procedure to check if the atrial thrombus is still present. I am assuming she is talking about a transesophageal echo. She is otherwise compliant with the medications. Tramadol has helped with her pain, not as well as Celebrex, but she understands that that cannot be combined on a regular basis with the Coumadin. Her INR has been fairly stable over the last 3 months. No side effects to medications reported. She still has scabs on her arms and states she picks at these frequently. She is applying clobetasol to these. Gabapentin has helped with restless legs. She is pretty compliant with her CPAP. Recent lab work indicates an A1c of 7.6. This is increased. She understands the importance of bringing this back to closer to 7. Liver and kidney functions were normal. IJN: [id number] Past Medical History Positives Diagnosis Date ??? Atrial fibrillation (HCC) ??? Congestive heart failure (CHF) (HCC) ??? Diabetes (HCC) ??? Hypertension ??? Thyroid activity decreased Allergies Allergen Reactions ??? Cefazolin Rash and Shortness of Breath ??? Lisinopril Other (see Comments) PHYSICAL EXAM Vitals: 08/25/21 1325 BP: 132/78 Pulse: 78 Resp: 16 Temp: 97.8 ??F (36.6 ??C) TempSrc: Temporal SpO2: 96% Weight: 222 lb (100.7 kg) Height: 5' 5 (1.651 m) Body mass index is 36.94 kg/m??. General appearance: alert, no distress, cooperative, appears stated age Lungs: no acute distress, clear to auscultation bilaterally Heart: regular rate and rhythm, S1, S2 normal, no murmur, click, rub or gallop Abdomen: soft, non-tender. Bowel sounds normal. No masses, no organomegaly Extremities: extremities normal, atraumatic, no cyanosis or edema ASSESSMENT/PLAN Diagnoses and all orders for this visit: Screen for colon cancer - COLOGUARD Pain and swelling of right knee - traMADol (ULTRAM) 50 MG Tablet; Take 1 Tablet by mouth every 6 hours as needed for Moderate or more severe pain. Essential (primary) hypertension Dyslipidemia Type 2 diabetes mellitus without complication, without long-term current use of insulin (HCC) Atrial thrombus Anxiety DM- continue metformin, jardiance and januvia. Offered ozempic but she declines at this time HTN- stable Continue statin Eye exam advised Will check another A1c in 3 months continue current meds. Jovita Bermudez MD L CAD TECH L CAD TECH documented in this encounter Plan of Treatment Upcoming Encounters Date Type Department Care Team (Late st Contact Info) Description 10/29/2024 9:30 AM CIVIL CAD TECH [facility] Visit [facility] - [facility] - [place] [address] [place] [address] Bhargavi Morel PAC [address] [place] [address] documented as of this encounter Visit Diagnoses Diagnosis Screen for colon cancer- Primary Special screening for malignant neoplasms, colon Pain and swelling of right knee Essential (primary) hypertension Unspecified essential hypertension Dyslipidemia Other and unspecified hyperlipidemia Type 2 diabetes mellitus without complication, without long-term current use of insulin (HCC) Atrial thrombus Other ill-defined heart disease Anxiety Anxiety state, unspecified documented in this encounter Care Teams Service Or Work Dispatcher Relationship Specialty Start Date End Date Jovita Bermudez MD [address] [place] [address] PCP - General Family Medicine 11/30/20 07/21/23 documented as of this encounter
--- OUTSIDE RECORDS SUMMARY | 2024-08-30 18:50 | XMS_ITS | Encounter Summary ---
Author Organization [facility] [employer] Care Team Providers Care Homicide Squad Lieutenant Name Role Phone Jovita Bermudez MD Primary Care Provider [phone] Encounter Details Date Type Department Care Team (Latest Contact Info) Description 05/04/2022 Travel Social History Tobacco Use Types Packs/Day Years Used Date Smoking Tobacco: Former Cigarettes 2 35 Smokeless Tobacco: Never Alcohol Use Standard Drinks/Week Comments Not Currently 0 (1 standard drink = 0.6 oz pur e alcohol) PHQ-2 Answer Date Recorded Total Score - Questions 1-9 0 0 03/2022 Sexually Active Control Partners Comments [...] st Contact Info) Description 10/29/2024 9:30 AM LEATHER STITCHER Office Visit [facility] - [facility] [place] [address] [place] [address] Bhargavi Morel, PAC [address] [place] [address] documented as of this encounter Visit Diagnoses Not on filedocumented in this encounter Additional Health Concerns Assessment Noted Time PHQ-9 Depression Total Score: 0 05/04/20 22 1:35 PM CDT documented as of this encounter Care Teams Homicide Squad Lieutenant Relationship Specialty Start Date End Date Jovita Bermudez MD [address] [place] [address] PCP - General Family Medicine 11/30/20 07/21/23 documented as of this encounter
--- OUTSIDE RECORDS SUMMARY | 2024-08-30 18:50 | XMS_ITS | Encounter Summary ---
Author Organization [facility] [employer] [facility] Care Team Providers Care A P Manager Name Role Phone Jovita Bermudez MD Primary Care Provider [phone] Encounter Details Date Type Department Care Team (Latest Contact Info) Description 06/13/2021 Travel Social History Tobacco Use Types Packs/Day [...] st Contact Info) Description 10/29/2024 9:30 AM MAKE UP OPERATOR HELPER Office Visit [facility] Medical Group - Family Medicine [facility] [address] [place] [address] Bhargavi Morel, ARAM [address] [place] [address] documented as of this encounter Visit Diagnoses Not on filedocumented in this encounter Care Teams A P Manager Relationship Specialty Start Date End Date Jovita Bermudez MD [address] [place] [address] PCP - General Family Medicine 11/30/20 07/21/23 documented as of this encounter
--- OUTSIDE RECORDS SUMMARY | 2024-08-30 18:50 | XMS_ITS | Encounter Summary ---
Author Organization [facility] Address [address] [place] [address] Phone Care Team Providers Care Eligibility Consultant Name Role Phone Jovita Bermudez MD Primary Care Provider [phone] Reason for Visit * Reason Comments Medication Refill Encounter Details Date Type Department Care Team (Late st Contact Info) Description 03/20/2022 Refill [facility] - [facility] [address] [place] [address] Jovita Bermudez MD [address] [place] [address] Medication Refill Social History Tobacco Use Types [...] Telephone Encounter - Reanna Rios RN - 03/21/2022 11:52 AM CDT PDMP 01/18/22 Medication failed the protocol, provider to review and approve the medication order if appropriate. Requested Prescriptions Pending Prescriptions Disp Refills traMADol (ULTRAM) 50 MG Tablet [Pharmacy Med Name: TRAMADOL HCL 50MG TABS] 28 Tablet 0 Sig: TAKE ONE TABLET BY MOUTH EVERY 6 HOURS NEEDED FOR MODERATE OR SEVERE PAIN Not Delegated - Opioid Agonists Protocol Failed - 03/20/2022 10:18 AM Failed - This refill cannot be delegated Passed - Visit with relevant provider in past 12 months or upcoming 90 days Recent Visits Date Type Provider Dept 08/25/21 Office Visit Jovita Bermudez MD [facility] [place] 06/14/21 Office Visit Bhargavi Morel PAC [facility] 06/06/21 Office Visit Cole Garsia APRN, GAIL [facility] 05/04/21 Office Visit Jovita Bermudez MD [facility] Showing recent visits within past 365 days and meeting all other requirements Future Appointments No visits were found meeting these conditions. Showing future appointments within next 90 days and meeting all other requirements PARoxetine (PAXIL) 40 MG Tablet [Pharmacy Med Name: PAROXETINE HCL 40MG TABS] 90 Tablet 1 Sig: TAKE ONE TABLET BY MOUTH EVERY DAY SSRI (6 Month Refill Only) Protocol Failed - 03/20/2022 10:18 AM Failed - Visit with relevant provider in past 6 months or upcoming 90 days Recent Visits No visits were found meeting these conditions. Showing recent visits within past 182 days and meeting all other requirements Future Appointments No visits were found meeting these conditions. Showing future appointments within next 90 days and meeting all other requirements Failed - Has an encounter in the past 6 months with a depression, anxiety, adjustment disorder, OCD, or PTSD visit diagnosis Passed - Patient has established therapy with SSRI for at least 6 months documented in this encounter Plan of Treatment Upcoming Encounters Date Type Department Care Team (Late st Contact Info) Description 10/29/2024 9:30 AM LAUNDROMAT MANAGER Office Visit [facility] Medical Group - Family Medicine - [place] [address] [place] [address] Bhargavi Morel, PAC [address] [place] [address] documented as of this encounter Visit Diagnoses Diagnosis Pain and swelling of right knee documented in this encounter Care Teams Eligibility Consultant Relationship Specialty Start Date End Date Jovita Bermudez MD [address] [place] [address] PCP - General Family Medicine 11/30/20 07/21/23 documented as of this encounter
--- OUTSIDE RECORDS SUMMARY | 2024-08-30 18:51 | XMS_ITS | Encounter Summary ---
Author Organization [facility] Address [address] [place] [address] Phone Care Team Providers Care Roll Forming Machine Operator Name Role Phone Jovita Bermudez MD Primary Care Provider [phone] Reason for Visit * Reason Onset Date Comments Medication Refill 12/09/2020 Encounter Details Date Type Department Care Team (Late st Contact Info) Description 12/09/2020 Refill [facility] - Family Medicine [facility] [address] [place] [address] Jovita Bermudez MD [address] [place] [address] Medication Refill Social History Tobacco Use Types [...] have Coronavirus / COVID-19? No / Unsure 12/11/2020 8:16 AM CDT documented as of this encounter Miscellaneous Notes * Telephone Encounter - Sherry Knight RN - 12/10/2020 10:17 AM CDT New Patient OV 11/30/20. Last RX shows historical in chart. Medication failed the protocol, provider to review and approve the medication order if appropriate. Requested Prescriptions Pending Prescriptions Disp Refills simvastatin (ZOCOR) 40 MG Tablet 90 Tablet 0 Sig: Take 1 Tablet by mouth daily. Hmg CoA Reductase Inhibitors Protocol Failed - 12/09/2020 3:01 PM Failed - Lipid panel in past 12 months No results found for: LDL, HDLCHOLESTE, CHOLESTEROL, TRIGLYCRIDES, VLDL, CHDL, HDLNON Passed - Visit with relevant provider in past 12 months or upcoming 90 days Recent Visits Date Type Provider Dept 11/30/20 Office Visit Jovita Bermudez MD [facility] Showing recent visits within past 365 days and meeting all other requirements Future Appointments Date Type Provider Dept 01/11/21 Appointment Jovita Bermudez MD [facility] Showing future appointments within next 90 days and meeting all other requirements * Telephone Encounter - Marga Hamilton - 12/09/2020 2:59 PM CDT Received a faxed Rx request from pharmacy. Reordered refill medication(s) requested and pended for nurse and physician/RONNA review. Refill encounter routed to nurse Cammieriluis armando's pool for processing. documented in this encounter Plan of Treatment Upcoming Encounters Date Type Department Care Team (Late st Contact Info) Description 10/29/2024 9:30 AM TAB CUTTING MACHINE OPERATOR Office Visit [facility] - [facility] - [place] [address] [place] [address] Bhargavi Morel, PAC [address] [place] [address] documented as of this encounter Visit Diagnoses Not on filedocumented in this encounter Care Teams Roll Forming Machine Operator Relationship Specialty Start Date End Date Jovita Bermudez MD [address] [place] [address] PCP - General Family Medicine 11/30/20 07/21/23 documented as of this encounter
--- OUTSIDE RECORDS SUMMARY | 2024-08-30 18:51 | XMS_ITS | Encounter Summary ---
Author Organization [facility] Address [address] [place] [address] Phone Care Team Providers Care Mft Name Role Phone Jovita Bermudez MD Primary Care Provider [phone] Reason for Referral * Consult, Test & Initiate Treatment (Less Than 2 Weeks) - Closed Specialty Diagnoses / Procedures Referred By Contac t Referred To Contact Diagnoses Type 2 diabetes mellitus without complication, without long-term current use of insulin (HCC) Jovita Bermudez MD [address] [place] [address] Phone: tel: fax: Provider, Not On File [place] Referral ID Status Reason Start Date Expiration Date Visits Re quested Visits Authorized [id number] Closed 02/23/2021 1 1 Scheduling Instructions Tressa is being referred to [facility] or other specialist in patient's insurance network for DM, BMI>30. See below for Tressa's current medications, allergies and problem list. CURRENT MEDS: Current Outpatient Medications: Ascorbic Acid 500 MG Chewable Tablet, Take 500 mg by mouth., Disp: , Rfl: aspirin EC 81 MG Tablet Delayed Response, Take 81 mg by mouth., Disp: , Rfl: clobetasol (TEMOVATE) 0.05 % Gel, APPLY TO NEW LESIONS ON ARMS COVER WITH TAPE THEN WASH OFF IN THE MORNING. REPEAT PROCESS UNTIL LESIONS ARE FLAT THEN USE TWICE A WEEK MA, Disp: , Rfl: furosemide (LASIX) 40 MG Tablet, Take 1 Tablet by mouth daily., Disp: 90 Tablet, Rfl: 1 levothyroxine (SYNTHROID) 75 MCG Tablet, Take 1 Tablet by mouth daily., Disp: 90 Tablet, Rfl: 1 losartan (COZAAR) 50 MG Tablet, Take 1 Tablet by mouth daily., Disp: 90 Tablet, Rfl: 1 metFORMIN (GLUCOPHAGE) 1000 MG Tablet, Take 1 Tablet by mouth 2 times daily., Disp: 180 Tablet, Rfl: 1 metoprolol Succinate (TOPROL-XL) 100 MG TABLET SR 24 HR, Take 1.5 Tablets by mouth daily., Disp: 135 Tablet, Rfl: 1 mupirocin (BACTROBAN) 2 % Ointment, APPLY TO OPEN SORES ON ARMS THREE TIMES DAILY FOR 1 WEEK, Disp: , Rfl: PARoxetine (PAXIL) 40 MG Tablet, Take 1 Tablet by mouth daily., Disp: 90 Tablet, Rfl: 0 simvastatin (ZOCOR) 40 MG Tablet, Take 1 Tablet by mouth daily., Disp: 90 Tablet, Rfl: 0 SITagliptin (JANUVIA) 100 MG Tablet, Take 1 Tablet by mouth daily., Disp: 90 Tablet, Rfl: 1 warfarin (COUMADIN) 2 MG Tablet, Take 1.5 [...] (obstructive sleep apnea) Restless legs syndrome (RLS) Reason for Visit * Reason Onset Date Comments Referral 02/23/2021 electrotype servicer Encounter Details Date Type Department Care Team (Late st Contact Info) Description 02/23/2021 Telephone [facility] [address] [place] [address] Jovita Bermudez MD [address] [place] [address] Referral (electrotype servicer ) Social History Tobacco Use Types Packs/Day Years [...] have Coronavirus / COVID-19? No / Unsure 02/23/2021 8:00 AM CDT documented as of this encounter Miscellaneous Notes * Telephone Encounter - Sherry Knight RN - 02/23/2021 10:31 AM CDT The patient was notified PCP ordered the referral to electrotype servicer as patient requested. The patientvoiced understanding and said thank you. The patient was also given [facility] Referral department phone number as well. * Telephone Encounter - Cyndi Miles - 02/23/2021 9:26 AM CDT Patient calling stating she wants a referral to a electrotype servicer. Would like to see Ginette Tyson at [facility] in [place]. Fax referral to [phone] Referral pended for approval. documented in this encounter Plan of Treatment Upcoming Encounters Date Type Department Care Team (Late st Contact Info) Description 10/29/2024 9:30 AM HAND SIGN WRITER [facility] Visit [facility] [address] [place] [address] Bhargavi Morel, PAC [address] [place] [address] documented as of this encounter Results * EXTERNAL CLINICAL NUTRITION REFERRAL (03/09/2021) Jovita Bermudez MD OUTPT REFERRALS EXT/INT Fin al Result documented in this encounter Visit Diagnoses Diagnosis Type 2 diabetes mellitus without complication, without long-term current use of insulin (HCC)- Primary documented in this encounter Care Teams Mft Relationship Specialty Start Date End Date Jovita Bermudez MD [address] [place] [address] PCP - General Family Medicine 11/30/20 07/21/23 documented as of this encounter
--- OUTSIDE RECORDS SUMMARY | 2024-08-30 18:51 | XMS_ITS | Encounter Summary ---
Author Organization [facility] Address [address] [place] [address] Phone Care Team Providers Care Chart Computer Name Role Phone Jovita Bermudez MD Primary Care Provider [phone] Reason for Referral * Consult, Test & Initiate Treatment (Less Than 3 Days) - Closed Specialty Diagnoses / Procedures Referred By Contjuani dhillon Referred To Contact Diagnoses Acute pain of right knee Honey Burger MD Phone: tel: fax: Fernando Dee MD [address] [facility] [address] [place] [address] Phone: tel: fax: Referral ID Status Reason Start Date Expiration Date Visits Re quested Visits Authorized [id number] Closed 03/21/2021 1 1 Scheduling Instructions Tressa is being referred to nutrition specialist in patient's insurance network for right knee pain. See below for Tressa's current medications, allergies [...] mouth daily., Disp: 90 Tablet, Rfl: 1 Glucose Blood Strip, Diagnosis: Diabetes type 2 Blood testing frequency: once a day, Disp: 100 Strip, Rfl: 3 Jardiance 25 MG Tablet, TAKE ONE TABLET BY MOUTH EVERY DAY, Disp: 30 Tablet, Rfl: 2 levothyroxine (SYNTHROID) 75 MCG Tablet, Take 1 [...] once daily, Disp: 90 Tablet, Rfl: 1 SITagliptin (JANUVIA) 100 MG Tablet, Take 1 Tablet by mouth daily., Disp: 90 Tablet, Rfl: 1 traMADol (ULTRAM) 50 MG Tablet, Take 1 Tablet by mouth every 6 hours as needed for Moderate or more severe pain., Disp: 28 Tablet, Rfl: 0 warfarin (COUMADIN) 2 MG Tablet, Take 1.5 [...] knee Pain and swelling of right knee * Radiology Services (Routine) - Closed Specialty Diagnoses / Procedures Referred By Contac t Referred To Contact Radiology Diagnoses Acute pain of right knee Procedures XR KNEE 3 VIEWS RIGHT Honey Burger MD Phone: tel: fax: Referral ID Status Reason Start Date Expiration Date Visits Re quested Visits Authorized [id number] Closed 03/18/2021 1 1 Reason for Visit * Reason Onset Date Comments Results 03/18/2021 US Encounter Details Date Type Department Care Team (Late st Contact Info) Description 03/18/2021 Telephone [facility] [address] [place] [address] Jovita Bermudez MD [address] [place] [address] Results (US) Social History Tobacco Use Types Packs/Day [...] have Coronavirus / COVID-19? No / Unsure 03/17/2021 9:01 AM CDT documented as of this encounter Miscellaneous Notes * Addendum Note - Honey Bruger MD - 03/21/2021 10:15 AM CDTAddended by: HONEY BURGER on: 03/21/2021 10:15 AM Modules accepted: Orders * Telephone Encounter - Honey Burger MD - 03/21/2021 10:12 AM CDT Im glad she feels like it is not normal but I can pretty much guarantee her that she will be getting another xray when she sees ortho and they are not going to be able to see her right away possibly.I will put in a referral but referrals take time and it may not be quick. This has been a few months since the xray and things might have changed since then. I am just a doctor and dont really know bu t I will just put in the referral because that is what she wants I still recommend that she try some therapy and possibly a new xray as things can change as we use our knees daily and she may not remember. * Addendum Note - Coral Way RN - 03/21/2021 9:23 AM CDTAddended by: CORAL WAY on: 03/21/2021 09:23 AM Modules accepted: Orders * Telephone Encounter - Coral Way RN - 03/21/2021 9:17 AM CDT Patient calling to request referral to ortho for knee pain Reports she had and x-ray of the same knee a couple months ago at urgent care and came back with mild arthritis or effusion. Does not feel another x-ray is necessary at this time. Would just like referral linus to ortho because pain is not improving Referral pending if approve * Telephone Encounter - Radha Yeboah RN - 03/18/2021 2:37 PM CDT Spoke with patient to inform * Telephone Encounter - Honey Burger MD - 03/18/2021 1:33 PM CDT Let her know that the ultrasound was negative so we should get an xray done. She is to cont with current medications and try and keep her leg elevated and rest if possible. I can put in an xray order. * Telephone Encounter - Jeaneth Austin - 03/18/2021 8:50 AM CDT Patient is calling for her ultrasound results dated 03/17/2021. They are available in [employer]. Please review and advise. documented in this encounter Plan of Treatment Upcoming Encounters Date Type Department Care Team (Late st Contact Info) Description 10/29/2024 9:30 AM SEWER TAPPER Office Visit [facility] [address] [place] [address] Bhargavi Morel, PAC [address] [place] [address] Scheduled Orders Name Type Priority Associated Diagnoses Orde r Schedule XR KNEE 3 VIEWS RIGHT Imaging Routine Acute pain of right knee Expected: 04/20/2022, Expires: 08/21/2022 documented as of this encounter Results * EXTERNAL ORTHOPEDIC SURGERY REFERRAL (04/07/2021) us Honey Burger MD OUTPT REFERRALS EXT/INT Final Re sult documented in this encounter Visit Diagnoses Diagnosis Acute pain of right knee- Primary documented in this encounter Care Teams Chart Computer Relationship Specialty Start Date End Date Jovita Bermudez MD [address] [place] [address] PCP - General Family Medicine 11/30/20 07/21/23 documented as of this encounter
--- OUTSIDE RECORDS SUMMARY | 2024-08-30 18:51 | XMS_ITS | Encounter Summary ---
Author Organization [facility] Address [address] [place] [address] Phone Care Team Providers Care Executive Staff Assistant Name Role Phone Jovita Bermudez MD Primary Care Provider [phone] Reason for Visit * Reason Onset Date Comments Results 12/13/2020 Encounter Details Date Type Department Care Team (Late Contact Info) Description 12/13/2020 Telephone [facility] [address] [place] [address] Jovita Bermudez MD [address] [place] [address] Results Social History Tobacco Use Types Packs/Day [...] Telephone Encounter - Sherry Knight RN - 12/13/2020 9:24 AM CDT Left a message for the patient to return call. * Telephone Encounter - Sherry Knight RN - 12/13/2020 9:23 AM CDT ----- Message from Jovita Bermudez MD sent at 12/13/2020 7:49 AM CDT ----- Please inform patient of negative results documented in this encounter Plan of Treatment Upcoming Encounters Date Type Department Care Team (Late st Contact Info) Description 10/29/2024 9:30 AM ASSISTANT PROGRAM DIRECTOR Office Visit [facility] [address] [place] [address] Bhargavi Morel, PAC [address] [place] [address] documented as of this encounter Visit Diagnoses Not on filedocumented in this encounter Care Teams Executive Staff Assistant Relationship Specialty Start Date End Date Jovita Bermudez MD [address] [place] [address] PCP - General Family Medicine 11/30/20 07/21/23 documented as of this encounter
--- OUTSIDE RECORDS SUMMARY | 2024-08-30 18:51 | XMS_ITS | Encounter Summary ---
Author Organization [facility] Address [address] [place] [address] Phone Care Team Providers Care Clock And Watch Assembler Name Role Phone Jovita Bermudez MD Primary Care Provider [phone] Bhargavi Morel Primary Care Provider + Flaquito Hurd MD Unavailable Wes Petty MD Unavailable Reason for Visit * Reason Comments Medication Refill Encounter Details Date Type Department Care Team (Late st Contact Info) Description 02/25/2021 Refill [facility] - [facility] [address] [place] [address] Jovita Bermudez MD [address] [place] [address] Medication Refill Social History Tobacco [...] Telephone Encounter - Sherry Knight RN - 02/25/2021 9:38 AM CDT Last OV 01/19/21. Last Rx 01/19/21 #30 with no refill. Med not on current med list in chart but is onhistory. Per nursing clinical judgement, provider to review and approve the medication(s) order(s) if appropriate. Requested Prescriptions Pending Prescriptions Disp Refills Jardiance 25 MG Tablet [Pharmacy Med Name: JARDIANCE 25MG TABS] 30 Tablet 0 Sig: TAKE ONE TABLET BY MOUTH EVERY DAY SGLT2 Inhibitors Protocol Passed - 02/25/2021 9:03 AM Passed - Visit with relevant provider in past 6 months or upcoming 90 days Recent Visits Date Type Provider Dept 01/19/21 Office Visit Jovita Bermudez MD [facility] [place] 11/30/20 Office Visit [facility] Showing recent visits within past 182 days and meeting all other requirements Future Appointments No visits were found meeting these conditions. Showing future appointments within next 90 days and meeting all other requirements Passed - HgA1C on record in past 6 months HGB-A1C Date Value Ref Range Status 02/23/2021 7.3 (H) 4.0 - 6.0 % Final Passed - GFR greater than or equal to 30 in past 6 months GFR, EST. NONAFRICAN Date Value Ref Range Status 02/23/2021 >60 >=60 Final documented in this encounter Plan of Treatment Upcoming Encounters Date Type Department Care Team (Late st Contact Info) Description 10/29/2024 9:30 AM HOG OPERATOR [facility] Visit [facility] [address] [place] [address] Bhargavi Morel, PAC [address] [place] [address] documented as of this encounter Visit Diagnoses Not on filedocumented in this encounter Additional Health Concerns Infection Onset Date Last Indicated Resolved Time COVID - 19 Comment:Vaccinated; nondetected x2; acute pyelonephritis 06/06/2021 06/09/2021 06/10/2021 6:46 AM CDT Respiratory Rule Out - RPA 06/10/2021 06/10/2021 1 10:25 PM CDT documented as of this encounter Care Teams Clock And Watch Assembler Relationship Specialty Start Date End Date Jovita Bermudez MD [address] [place] [address] PCP - General Family Medicine 11/30/20 07/21/23 Bhragavi Morel PAC [address] [place] [address] PCP - General Physician Psychologist Social 07/22/23 Flaquito Hurd MD [address] [place] [address] Consulting Physician Pulmonary Disease 11/09/22 Wes Petty MD [address] [address] Consulting Physician Urology 01/18/24 documented as of this encounter
--- OUTSIDE RECORDS SUMMARY | 2024-08-30 18:51 | XMS_ITS | Encounter Summary ---
Author Organization [facility] Address [address] [place] [address] Phone Care Team Providers Care Hand Flesher Name Role Phone Jovita Bermudez MD Primary Care Provider [phone] Encounter Details Date Type Department Care Team (Late st Contact Info) Description 01/12/2021 [facility] [address] [place] [address] Flaquito Hurd MD [address] [place] [address] Social History Tobacco Use Types [...] have Coronavirus / COVID-19? No / Unsure 01/11/2021 10:22 AM CDT documented as of this encounter Miscellaneous Notes * Telephone Encounter - Lissa Tee CMA - 01/12/2021 8:42 AM CDT Patient cpap order was sent to [facility] documented in this encounter Plan of Treatment Upcoming Encounters Date Type Department Care Team (Late st Contact Info) Description 10/29/2024 9:30 AM ELEPHANT TAMER Office Visit [facility] Family Medicine [facility] [address] [place] [address] Bhargavi Morel PAC [address] [place] [address] documented as of this encounter Visit Diagnoses Not on filedocumented in this encounter Care Teams Hand Flesher Relationship Specialty Start Date End Date Jovita Bermudez MD [address] [place] [address] PCP - General Family Medicine 11/30/20 07/21/23 documented as of this encounter
--- OUTSIDE RECORDS SUMMARY | 2024-08-30 18:51 | XMS_ITS | Encounter Summary ---
Author Organization [facility] Address [address] [place] [address] Phone Care Team Providers Care Pathologist Name Role Phone Jovita Bermudez MD Primary Care Provider [phone] Reason for Visit * Reason Onset Date Comments Results 02/23/2021 Encounter Details Date Type Department Care Team (Late Contact Info) Description 02/23/2021 Telephone [facility] [address] [place] [address] Jovita Bermudez MD [address] [place] [address] Results Social History Tobacco Use Types Packs/Day [...] Encounter - Sherry Knight RN - 02/23/2021 1:46 PM CDT The patient was notified PCP said may be lab error secondary to hemolysis and wants to recheck BMP in 2 weeks. The patient said alright. The patient scheduled her 2 week follow up BMP lab appointmentfor 03/09/21 at 10:30 am. PENDED 2 week follow up BMP order to PCP (needs diagnosis added) * Telephone Encounter - Jovita Bermudez MD - 02/23/2021 1:42 PM CDT May be lab error sec to hemolysis, recheck in 2 weeks- BMP * Telephone Encounter - Sherry Knight RN - 02/23/2021 1:38 PM CDT The patient was notified her potassium is 5.3 and PCP asked if she is taking any potassium. The patient voiced understanding and said she is not taking any potassium. * Telephone Encounter - Sherry Knight RN - 02/23/2021 1:38 PM CDT ----- Message from Jovita Bermudez MD sent at 02/23/2021 1:20 PM CDT ----- Is patient taking any potassium? documented in this encounter Plan of Treatment Upcoming Encounters Date Type Department Care Team (Late st Contact Info) Description 10/29/2024 9:[address]PERVISOR Office Visit [facility] - Family [facility] [address] [place] [address] Bhargavi Morel, PAC [address] [place] [address] documented as of this encounter Results * (ABNORMAL) BASIC METABOLIC PANEL W/ CALCIUM TOTAL (03/17/2021 2:48 PM CDT) SODIUM 138 136 - 144 mmol/L 03/17/2021 4:06 PM CDT [facility] POTASSIUM 4.5 3.5 - 5.1 mmol/L 03/17/2021 4:06 PM CDT [facility] CHLORIDE 105 100 - 110 mmol/L 03/17/2021 4:06 PM CDT [facility] CO2, VENOUS 25 22 - 32 mmol/L 03/17/2021 4:06 PM CDT [facility] ANION GAP 12.5 8.0 - 20.0 mmol/L 03/17/2021 4:06 PM CDT [facility] GLUCOSE 144(H) 70 - 99 mg/dL 03/17/2021 4:06 PM CDT [facility] BUN 19 8 - 23 mg/dL 03/17/2021 4:06 PM CDT [facility] CREATININE, BLOOD 0.60 0.60 - 1.10 mg/dL 03/17/2021 4:06 PM CDT [facility] BUN/CREATININE RATIO 32(H) 12 - 20 ratio 03/17/2021 4:06 PM CDT [facility] CALCIUM 9.2 8.9 - 10.3 mg/dL 03/17/2021 4:06 PM CDT [facility] GFR, EST. NONAFRICAN >60 >=60 03/17/2021 4:06 PM CDT [facility] GFR, EST. >60 >=60 03/17/2021 4:06 PM CDT [facility] Comment: Creatinine Clearance is the preferred criteria for selecting drug dose adjustments in renally impaired patients. ??The GFR is provided as additional pertinent clinical information. GFR is reported in mL/min/1.73 sq m. IS THE PATIENT REQUIRED TO BE FASTING? No 03/17/2021 4:06 PM CDT [facility] Blood Venipuncture / Unknown 03/17/2021 2:48 PM CDT 03/17/2021 3:39 PM CDT Jovita Bermudez MD CHEMISTRY ORDERABLES Final Result [facility] [address] [place] [address] documented in this encounter Visit Diagnoses Diagnosis Hyperkalemia- Primary Hyperpotassemia documented in this encounter Care Teams Pathologist Relationship Specialty Start Date End Date Jovita Bermudez MD [address] [place] [address] PCP - General Family Medicine 11/30/20 07/21/23 documented as of this encounter
--- OUTSIDE RECORDS SUMMARY | 2024-08-30 18:51 | XMS_ITS | Encounter Summary ---
Author Organization [facility] [employer] [facility] Care Team Providers Care Tower Cleaner Name Role Phone Jovita Bermudez MD Primary Care Provider [phone] Encounter Details Date Type Department Care Team (Latest Contact Info) Description 12/13/2020 Travel Social History Tobacco Use Types Packs/Day [...] have Coronavirus / COVID-19? No / Unsure 12/13/2020 7:17 PM CDT documented as of this encounter Plan of Treatment Upcoming Encounters Date Type Department Care Team (Late st Contact Info) Description 10/29/2024 9:30 AM STRATEGIC SOURCING SPECIALIST Office Visit [facility] - Family Medicine [facility] [address] [place] [address] Bhargavi Morel, ARAM [address] [place] [address] documented as of this encounter Visit Diagnoses Not on filedocumented in this encounter Care Teams Tower Cleaner Relationship Specialty Start Date End Date Jovita Bermudez MD [address] [place] [address] PCP - General Family Medicine 11/30/20 07/21/23 documented as of this encounter
--- OUTSIDE RECORDS SUMMARY | 2024-08-30 18:51 | XMS_ITS | Encounter Summary ---
Author Organization [facility] Address [address] [place] [address] Phone Care Team Providers Care Light Cleaner Name Role Phone Jovita Bermudez MD Primary Care Provider [phone] Reason for Visit * Reason Onset Date Comments Medication Management 02/04/2021 Encounter Details Date Type Department Care Team (Late st Contact Info) Description 02/04/2021 Telephone [facility] [address] [place] [address] Jovita Bermudez MD [address] [place] [address] Medication Management Social History Tobacco Use Types [...] have Coronavirus / COVID-19? No / Unsure 01/19/2021 8:37 AM CDT documented as of this encounter Miscellaneous Notes * Telephone Encounter - Sherry Knight RN - 02/04/2021 11:35 AM CDT The patient states she had an OV with PCP on 01/19/21 and all her scripts were sent to [facility]. The patient said only her Januvia and Jardiance should go to [facility]. The patient wants all the other scripts (Simvastatin, Paroxetine, Metoprolol Succinate, Metformin, Losartan, Levothyroxine, and furosemide) sent to [facility]. The patient said she called pharmacy and they will not transfer scripts. This nurse called [facility] to cancel the scripts and the pharmacist said they can actually deliver the scripts to the patient or they will transfer the scripts as desired. The pharmacist said they will call the patient now. * Telephone Encounter - Saida Forte MA - 02/04/2021 10:56 AM CDT Refill med management : Please call patient states some of her medication was sent to the wrong pharmacy . Patient wanting them to be resent to a different pharmacy . Please mendez @[phone] documented in this encounter Plan of Treatment Upcoming Encounters Date Type Department Care Team (Late st Contact Info) Description 10/29/2024 9:30 AM COOKIE PADDER [facility] Visit [facility] [address] [place] [address] Bhargavi Morel PAC [address] [place] [address] documented as of this encounter Visit Diagnoses Not on filedocumented in this encounter Care Teams Light Cleaner Relationship Specialty Start Date End Date Jovita Bermudez MD [address] [place] [address] PCP - General Family Medicine 11/30/20 07/21/23 documented as of this encounter
--- OUTSIDE RECORDS SUMMARY | 2024-08-30 18:51 | XMS_ITS | Encounter Summary ---
Author Organization [facility] [employer] [facility] Care Team Providers Care Painter Foreman Name Role Phone Jovita Bermudez MD Primary Care Provider [phone] Encounter Details Date Type Department Care Team (Latest Contact Info) Description 03/09/2021 Travel Social History Tobacco Use Types Packs/Day [...] have Coronavirus / COVID-19? No / Unsure 03/09/2021 7:35 AM CDT documented as of this encounter Plan of Treatment Upcoming Encounters Date Type Department Care Team (Late st Contact Info) Description 10/29/2024 9:30 AM RECORD CENTER COORDINATOR Office Visit [facility] Group - Family Medicine [facility] [address] [place] [address] Bhargavi Morel, ARAM [address] [place] [address] documented as of this encounter Visit Diagnoses Not on filedocumented in this encounter Care Teams Painter Foreman Relationship Specialty Start Date End Date Jovita Bermudez MD [address] [place] [address] PCP - General Family Medicine 11/30/20 07/21/23 documented as of this encounter
--- OUTSIDE RECORDS SUMMARY | 2024-08-30 18:51 | XMS_ITS | Encounter Summary ---
Author Organization [facility] [employer] [facility] Care Team Providers Care Revenue Integrity Analyst Name Role Phone Jovita Bermudez MD Primary Care Provider [phone] Encounter Details Date Type Department Care Team (Latest Contact Info) Description 01/06/2021 Travel Social History Tobacco Use Types Packs/Day [...] have Coronavirus / COVID-19? No / Unsure 01/06/2021 4:20 PM CDT documented as of this encounter Plan of Treatment Upcoming Encounters Date Type Department Care Team (Late st Contact Info) Description 10/29/2024 9:30 AM SHIPPING AND RECEIVING ASSISTANT Office Visit [facility] Group - Family Medicine [facility] [address] [place] [address] Bhargavi Morel, ARAM [address] [place] [address] documented as of this encounter Visit Diagnoses Not on filedocumented in this encounter Care Teams Revenue Integrity Analyst Relationship Specialty Start Date End Date Jovita Bermudez MD [address] [place] [address] PCP - General Family Medicine 11/30/20 07/21/23 documented as of this encounter
--- OUTSIDE RECORDS SUMMARY | 2024-08-30 18:51 | XMS_ITS | Encounter Summary ---
Author Organization [facility] [employer] [facility] Care Team Providers Care Rod Cup Filler Name Role Phone Jovita Bermudez MD Primary Care Provider [phone] Encounter Details Date Type Department Care Team (Latest Contact Info) Description 01/19/2021 Travel Social History Tobacco Use Types Packs/Day [...] Contact Info) Description 10/29/2024 9:30 AM FIELD ENGINEER Office Visit [facility] - Family Medicine [facility] [address] [place] [address] Bhargavi Morel, ARAM [address] [place] [address] documented as of this encounter Visit Diagnoses Not on filedocumented in this encounter Care Teams Rod Cup Filler Relationship Specialty Start Date End Date Jovita Bermudez MD [address] [place] [address] PCP - General Family Medicine 11/30/20 07/21/23 documented as of this encounter
--- OUTSIDE RECORDS SUMMARY | 2024-08-30 18:51 | XMS_ITS | Encounter Summary ---
Author Organization [facility] Address [address] [place] [address] Phone Care Team Providers Care Extracorporeal Technician Name Role Phone Jovita Bermudez MD Primary Care Provider [phone] Encounter Details Date Type Department Care Team (Late st Contact Info) Description 02/23/2021 8:30 AM CDT Lab [facility] [address] [address] [facility] Type 2 diabetes mellitus [...] encounter Progress Notes * Michelle Dutton - 02/23/2021 8:30 AM CDT Tressa presents for lab draw per order of dr gilmore dated [id number]. Specimen collected from left antecubital without incident. [facility] documented in this encounter Plan of Treatment Upcoming Encounters Date Type Department Care Team (Late st Contact Info) Description 10/29/2024 9:30 AM AUTOMATIC BEADING LATHE OPERATOR Office Visit [facility] [address] [place] [address] Bhargavi Morel, PAC [address] [place] [address] documented as of this encounter Procedures Procedure Name Priority Date/Time Associated Diagnosis Comments HEMOGLOBIN A1C W/ ESTIMATED GLUCOSE Routine 02/23/2021 8:25 AM CDT Type 2 diabetes mellitus without complication, without long-term current use of insulin (HCC) CBC WITH AUTO DIFFERENTIAL Routine 02/23/2021 8:25 AM CDT Type 2 diabetes mellitus without complication, without long-term current use of insulin (HCC) UR MICROALBUMIN/CREATINI NE RATIO RANDOM Routine 02/23/2021 8:25 AM CDT Type 2 diabetes mellitus without complication, without long-term current use of insulin (HCC) THYROID STIMULATING HORMONE (TSH) Routine 02/23/2021 8:25 AM CDT Type 2 diabetes mellitus without complication, without long-term current use of insulin (HCC) LIPID PANEL Routine 02/23/2021 8:25 AM CDT Type 2 diabetes mellitus without complication, without long-term current use of insulin (HCC) CMP (COMPREHENSIVE METABOLIC PANEL) Routine 02/23/2021 8:25 AM CDT Type 2 diabetes mellitus without complication, without long-term current use of insulin (HCC) COMPLETE BLOOD COUNT (CBC) WITH DIFF Routine 02/23/2021 8:25 AM CDT Type 2 diabetes mellitus without complication, without long-term current use of insulin (HCC) documented in this encounter Results * (ABNORMAL) CBC WITH AUTO DIFFERENTIAL (02/23/2021 8:25 AM CDT) WBC 7.70 4.00 - 12.00 10(3)/mcL 02/23/2021 12:22 PM CDT [facility] RBC 4.37 3.80 - 5.30 10(6)/mcL 02/23/2021 12:22 PM CDT [facility] HEMOGLOBIN (HGB) 13.9 12.0 - 15.8 g/dL 02/23/2021 12:22 PM CDT [facility] HEMATOCRIT (HCT) 44.4 36.0 - 47.0 % 02/23/2021 12:22 PM CDT [facility] MCV 101.6(H) 82.0 - 96.0 fL 02/23/2021 12:22 PM CDT [facility] MCH 31.8 26.0 - 34.0 pg 02/23/2021 12:22 PM CDT [facility] MCHC 31.3 31.0 - 36.0 g/dL 02/23/2021 12:22 PM CDT [facility] PLATELET COUNT 245 140 - 440 10(3)/mcL 02/23/2021 12:22 PM CDT [facility] RDW 12.4 11.8 - 15.5 % 02/23/2021 12:22 PM CDT [facility] MPV 9.9 9.7 - 12.4 fL 02/23/2021 12:22 PM CDT [facility] NEUTROPHILS 68.9 47.0 - 73.0 % 02/23/2021 12:22 PM CDT [facility] LYMPHOCYTES 18.8 18.0 - 42.0 % 02/23/2021 12:22 PM CDT [facility] MONOCYTES 7.9 4.0 - 12.0 % 02/23/2021 12:22 PM CDT [facility] EOSINOPHILS 3.8 0.0 - 5.0 % 02/23/2021 12:22 PM CDT [facility] BASOPHILS 0.6 0.0 - 1.0 % 02/23/2021 12:22 PM CDT [facility] ABSOLUTE NEUTROPHILS 5.30 1.60 - 7.70 10(3)/[facility] 02/23/2021 12:22 PM CDT [facility] ABSOLUTE LYMPHOCYTES 1.45 1.30 - 3.20 10(3)/[facility] 02/23/2021 12:22 PM CDT [facility] ABSOLUTE MONOCYTES 0.61 0.20 - 1.00 10(3)/[facility] 02/23/2021 12:22 PM CDT [facility] ABSOLUTE EOSINOPHIL 0.29 0.00 - 0.40 10(3)/[facility] 02/23/2021 12:22 PM CDT [facility] ABSOLUTE BASOPHILS 0.05 0.00 - 0.10 10(3)/[facility] 02/23/2021 12:22 PM CDT [facility] NRBC PER 100 WBC 0 02/24/20 12:22 PM CDT [facility] Blood Venipuncture / Unknown 02/23/2021 8:25 AM CDT 02/23/2021 8:25 AM CDT us Jovita Bermudez MD HEMATOLOGY ORDERABLES Final Result [facility] [address] [place] [address] * THYROID STIMULATING HORMONE (TSH) (02/23/2021 8:25 AM CDT) TSH 1.730 0.270 - 4.200 mIU/L 02/23/2021 1:13 PM CDT [facility] Blood Venipuncture / Unknown 02/23/2021 8:25 AM CDT 02/23/2021 8:25 AM CDT Jovita Bermudez MD CHEMISTRY ORDERABLES Final Result [facility] [address] [place] [address] * (ABNORMAL) HEMOGLOBIN A1C W/ ESTIMATED GLUCOSE (02/23/2021 8:25 AM CDT) HGB-A1C 7.3(H) 4.0 - 6.0 % 02/23/2021 12:37 PM CDT [facility] Est Average Glucose 162.8 mg/dL 02/23/2021 12:37 PM CDT [facility] Blood Venipuncture / Unknown 02/23/2021 8:25 AM CDT 02/23/2021 8:25 AM CDT Narrative [facility] - 02/23/2021 12:37 PM CDT HEMOGLOBIN A1C: DIABETIC PATIENTS: WELL-CONTROLLED: ?? 6.2 - 7.0 INTERMEDIATE WELL-CONTROLLED: ??7.0 - 9.0 POORLY-CONTROLLED: ??>9.0 Jovita Bermudez MD CHEMISTRY ORDERABLES Final Result Performing Organization Address City/[facility]/ZIP Co de Phone Number [facility] [address] [place] [address] * (ABNORMAL) UR MICROALBUMIN/CREATININE RATIO RANDOM (02/23/2021 8:25 AM CDT) RAN UR MICROALBUMIN 5.04(H) <=2.00 mg/dL 02/23/2021 1:20 PM CDT [facility] CREATININE URINE 39.8 28.0 - 217.0 mg/dL 02/23/2021 1:20 PM CDT [facility] ALB/CREAT RATIO 127(H) 1 - 30 mg/g CRE 02/23/2021 1:20 PM CDT [facility] Urine Non-Phlebotomy Collection / Unknown 02/23/2021 8:25 AM CDT 02/23/2021 8:25 AM CDT Jovita Bermudez MD URINE ORDERABLES Final Resu lt [facility] [address] [place] [address] * LIPID PANEL (02/23/2021 8:25 AM CDT) CHOLESTEROL 106 <=200 mg/dL 02/23/2021 1:13 PM CDT [facility] TRIGLYCERIDES 94 <150 mg/dL 02/23/2021 1:13 PM CDT [facility] HDL CHOLESTEROL 40.7 >40 mg/dL 1:13 PM CDT [facility] LDL 47 5 - 130 mg/dL 02/23/2021 1:13 PM CDT [facility] VLDL 19 5 - 55 mg/dL 02/23/2021 1:13 PM CDT [facility] CHOL/HDL RATIO 2.6 0.0 - 4.4 02/23/2021 1:13 PM CDT [facility] NON-HDL CHOLESTEROL 65.3 <130 mg/dL 02/23/2021 1:13 PM CDT [facility] IS THE PATIENT REQUIRED TO BE FASTING? Yes 02/23/2021 1:13 PM CDT [facility] HAS THE PATIENT BEEN FASTING? Yes 02/23/2021 1:13 PM CDT [facility] Blood Venipuncture / Unknown 02/23/2021 8:25 AM CDT 02/23/2021 8:25 AM CDT Jovita Bermudez MD CHEMISTRY ORDERABLES Final Result [facility] [address] [place] [address] * (ABNORMAL) CMP (COMPREHENSIVE METABOLIC PANEL) (02/23/2021 8:25 AM CDT) SODIUM 137 136 - 144 mmol/L 02/23/2021 1:13 PM CDT [facility] POTASSIUM 5.3(H) 3.5 - 5.1 mmol/L 02/23/2021 1:13 PM CDT [facility] CHLORIDE 102 100 - 110 mmol/L 02/23/2021 1:13 PM CDT [facility] CO2, VENOUS 26 22 - 32 mmol/L 02/23/2021 1:13 PM CDT [facility] ANION GAP 14.3 8.0 - 20.0 mmol/L 02/23/2021 1:13 PM T [facility] GLUCOSE 133(H) 70 - 99 mg/dL 02/23/2021 1:13 PM CDT [facility] BUN 27(H) 8 - 23 mg/dL 02/23/2021 1:13 PM CDT [facility] CREATININE, BLOOD 0.76 0.60 - 1.10 mg/dL 02/23/2021 1:13 PM T [facility] BUN/CREATININE RATIO 36(H) 12 - 20 ratio 02/23/2021 1:13 PM CDT [facility] TOTAL PROTEIN 7.6 6.0 - 8.3 g/dL 02/23/2021 1:13 PM CDT [facility] ALBUMIN 3.9 3.5 - 5.2 g/dL 02/23/2021 1:13 PM [facility] Comment: The colormetric methods used for the determination of Albumin may lead to falsely elevated test results in patients suffering from renal failure or insufficiency due to interference with other proteins. A/G RATIO 1.1 1.0 - 2.0 02/23/2021 1:13 PM CDT [facility] CALCIUM 9.3 8.9 - 10.3 mg/dL 02/23/2021 1:13 PM CDT [facility] T BILI 0.4 <=1.2 mg/dL 02/23/2021 1:13 PM CDT [facility] SGOT (AST) 25 <=32 U/L 02/23/2021 1:13 PM CDT [facility] SGPT (ALT) 25 <=41 U/L 02/23/2021 1:13 PM CDT [facility] ALKALINE PHOSPHATASE 95 35 - 105 U/L 02/23/2021 1:13 PM CDT [facility] GFR, EST. NONAFRICAN >60 >=60 02/23/2021 1:13 PM CDT [facility] GFR, EST. >60 >=60 021 1:13 PM CDT [facility] Comment: Creatinine Clearance is the preferred criteria for selecting drug dose adjustments in renally impaired patients. ??The GFR is provided as additional pertinent clinical information. GFR is reported in mL/min/1.73 sq m. IS THE PATIENT REQUIRED TO BE FASTING? No 02/23/2021 1:13 PM CDT [facility] Blood Venipuncture / Unknown 02/23/2021 8:25 AM CDT 02/23/2021 8:25 AM CDT us Jovita Bermudez MD CHEMISTRY ORDERABLES Final Result [facility] [address] [place] [address] documented in this encounter Visit Diagnoses Diagnosis Type 2 diabetes mellitus without complication, without long-term current use of insulin (HCC) documented in this encounter Care Teams Extracorporeal Technician Relationship Specialty Start Date End Date Jovita Bermudez MD [address] [place] [address] PCP - General Family Medicine 11/30/20 07/21/23 documented as of this encounter
--- OUTSIDE RECORDS SUMMARY | 2024-08-30 18:51 | XMS_ITS | Encounter Summary ---
Author Organization [facility] Address [address] [place] [address] Phone Care Team Providers Care Training Generalist Name Role Phone Jovita Bermudez MD Primary Care Provider [phone] Reason for Visit * Reason Onset Date Comments Medication Management 03/22/2021 Encounter Details Date Type Department Care Team (Late st Contact Info) Description 03/22/2021 Telephone [facility] [address] [place] [address] Harry Howell MD [address] [place] [address] Medication Management Social History Tobacco Use Types [...] Telephone Encounter - Sherry Knight RN - 03/23/2021 10:45 AM CDT The patient was notified Dr. Howell said she sent a script to the pharmacy for Celebrex and said see if this works. The patient voiced understanding and said thank you. * Telephone Encounter - Sherry Knight RN - 03/22/2021 4:36 PM CDT Left a message for the patient to return call. * Telephone Encounter - Harry Howell MD - 03/22/2021 4:15 PM CDT I sent in some celebrex to try. See if this works. And it is at the pharmacy. * Telephone Encounter - Harry Howell MD - 03/22/2021 4:13 PM CDT Will send in some celebrex for her to see if this helps. The ortho's tend to lilke this. * Telephone Encounter - Sherry Knight RN - 03/22/2021 3:52 PM CDT The patient was notified of Dr. Howell's response. The patient said she has never been told she could not take NSAIDs. The patient said she thinks a script for an NSAID would help. The patient said she would like to see the Ortho first before starting any PT. The patient is asking if Dr. Howell could order NSAID script to [facility]? The patient is also asking if she should continue the Tramadol in addition to the prescribed NSAID? * Telephone Encounter - Harry Howell MD - 03/22/2021 2:22 PM CDT She can try some physical therapy, This could help with pain, Dr. Hussein doesn't really like to put people on pain medications as this may not improve in the next couple of weeks and then she would want to continue with this. Can she take NSAIDS? * Telephone Encounter - Sherry Knight RN - 03/22/2021 9:45 AM CDT The patient said she saw Dr. Howell for an OV on 03/17/21 for right knee pain. The patient said Dr. Morrowrdered an Ortho Referral yesterday and she is waiting to get in with an Ortho. The patient reportsDr. Howell ordered Tramadol and the patient has also taken Tylenol but neither are helping with her knee pain. The patient said she was seen at [facility] in [place] in August and they did a right knee xray then. (Requested records from [facility]). The patient said Dr. Howell ordered an US and she did that but has not done the knee xray yet as she does not want to have to move the knee. Thepatient is hoping [facility] will fax her knee xray from August. The patient said the Tramadol &Tylenol don't help her knee pain at all and is asking [facility] documented in this encounter Plan of Treatment Upcoming Encounters Date Type Department Care Team (Late st Contact Info) Description 10/29/2024 9:30 AM ELECTROPLATING LABORER Office Visit [facility] - [facility] [address] [place] [address] Bhargavi Morel, PAC [address] [place] [address] documented as of this encounter Visit Diagnoses Not on filedocumented in this encounter Care Teams Training Generalist Relationship Specialty Start Date End Date Jovita Bermudez MD [address] [place] [address] PCP - General Family Medicine 11/30/20 07/21/23 documented as of this encounter
--- OUTSIDE RECORDS SUMMARY | 2024-08-30 18:51 | XMS_ITS | Encounter Summary ---
Author Organization [facility] [employer] [facility] Care Team Providers Care Supervisor Sewer Maintenance Name Role Phone Jovita Bermudez MD Primary Care Provider [phone] Encounter Details Date Type Department Care Team (Latest Contact Info) Description 01/11/2021 Travel Social History Tobacco Use Types Packs/Day [...] Contact Info) Description 10/29/2024 9:30 AM SPECIAL SHOPPER Office Visit [facility] - Family Medicine [facility] [address] [place] [address] Bhargavi Morel, ARAM [address] [place] [address] documented as of this encounter Visit Diagnoses Not on filedocumented in this encounter Care Teams Supervisor Sewer Maintenance Relationship Specialty Start Date End Date Jovita Bermudez MD [address] [place] [address] PCP - General Family Medicine 11/30/20 07/21/23 documented as of this encounter
--- OUTSIDE RECORDS SUMMARY | 2024-08-30 18:51 | XMS_ITS | Encounter Summary ---
Author Organization [facility] Address [address] [place] [address] Phone Care Team Providers Care Gallery Or Museum Guide Name Role Phone Jovita Bermudez MD Primary Care Provider [phone] Reason for Referral * Consult, Test & Initiate Treatment (Routine) - Closed Specialty Diagnoses / Procedures Referred By Contac t Referred To Contact Diagnoses Daytime somnolence Jovita Bermudez MD [address] [place] [address] Phone: tel: fax: Trisha Jesus MD [address] [place] [address] [address] [place] [address] Phone: tel: fax: Referral ID Status Reason Start Date Expiration Date Visits Re quested Visits Authorized [id number] Closed 11/30/2020 1 11 Scheduling Instructions Tressa is being referred to Dr. Fran Jesus or other specialist in patient's insurance network for sleep apnea. See below for Tressa's current medications, allergies and problem list. CURRENT MEDS: Current Outpatient Medications: Ascorbic Acid 500 MG Chewable Tablet, Take 500 mg by mouth., Disp: , Rfl: aspirin EC 81 MG Tablet Delayed Response, Take 81 mg by mouth., Disp: , Rfl: busPIRone (BUSPAR) 10 MG Tablet, Take 1 Tablet by mouth 3 times daily., Disp: 270 Tablet, Rfl: 0 clobetasol (TEMOVATE) 0.05 % Gel, APPLY TO NEW LESIONS ON ARMS COVER WITH TAPE THEN WASH OFF IN THE MORNING. REPEAT PROCESS UNTIL LESIONS ARE FLAT THEN USE TWICE A WEEK MA, Disp: , Rfl: Empagliflozin (JARDIANCE) 10 MG Tablet, 20 mg., Disp: , Rfl: furosemide (LASIX) 40 MG Tablet, Take 40 mg by mouth., Disp: , Rfl: levothyroxine (SYNTHROID) 75 MCG Tablet, Take 75 mcg by mouth., Disp: , Rfl: losartan (COZAAR) 50 MG Tablet, Take 50 mg by mouth., Disp: , Rfl: metFORMIN (GLUCOPHAGE) 1000 MG Tablet, Take 1,000 mg by mouth., Disp: , Rfl: metoprolol Succinate (TOPROL-XL) 100 MG TABLET SR 24 HR, Take 150 mg by mouth., Disp: , Rfl: metoprolol tartrate (LOPRESSOR) 25 MG Tablet, Take 25 mg by mouth 2 times daily., Disp: , Rfl: mupirocin (BACTROBAN) 2 % Ointment, APPLY TO OPEN SORES ON ARMS THREE TIMES DAILY FOR 1 WEEK, Disp: , Rfl: simvastatin (ZOCOR) 40 MG Tablet, Take 40 mg by mouth., Disp: , Rfl: SITagliptin (JANUVIA) 100 MG Tablet, Take 1 Tablet by mouth., Disp: , Rfl: warfarin (COUMADIN) 2 MG Tablet, Take 1.5 Tablets by mouth., Disp: 90 Tablet, Rfl: No current facility-administered medications for this visit. ALLERGIES: -- Cefazolin -- Rash and Shortness of Breath -- Lisinopril -- Other (see Comments) PROBLEM LIST: There is no problem list on file for this patient. * Consult, Test & Initiate Treatment (Routine) - Closed Specialty Diagnoses / Procedures Referred By Contac t Referred To Contact Sleep Center Diagnoses Daytime somnolence Jovita Bermudez MD [address] [place] [address] Phone: tel: fax: [facility] [address] [place] [address] Phone: tel: fax:[phone] Referral ID Status Reason Start Date Expiration Date Visits Re quested Visits Authorized [id number] Closed 11/30/2020 1 2 Scheduling Instructions Tressa is being referred for Split Night sleep study. The patient can be consulted to treat if sleep study discloses that patient has obstructive sleep apnea. If positive refer to Dr. Hurd. See below for Tressa's current medications, allergies and problem list. Please contact patient for scheduling questions or concerns. CURRENT MEDS: Current Outpatient Medications: Ascorbic Acid [...] TWICE A WEEK MA, Disp: , Rfl: Eliquis 5 MG Tablet, Take 5 mg by mouth 2 times daily., Disp: , Rfl: Empagliflozin (JARDIANCE) 10 MG Tablet, 20 mg., Disp: , Rfl: furosemide (LASIX) 40 MG Tablet, Take 40 mg by mouth., Disp: , Rfl: levothyroxine (SYNTHROID) 75 MCG Tablet, Take 75 mcg by mouth., Disp: , Rfl: losartan (COZAAR) 50 MG Tablet, Take 50 mg by mouth., Disp: , Rfl: metFORMIN (GLUCOPHAGE) 1000 MG Tablet, Take 1,000 mg by mouth., Disp: , Rfl: metoprolol Succinate (TOPROL-XL) 100 MG TABLET SR 24 HR, Take 150 mg by mouth., Disp: , Rfl: metoprolol tartrate (LOPRESSOR) 25 MG Tablet, Take 25 mg by mouth 2 times daily., Disp: , Rfl: mupirocin (BACTROBAN) 2 % Ointment, APPLY TO OPEN SORES ON ARMS THREE TIMES DAILY FOR 1 WEEK, Disp: , Rfl: PARoxetine (PAXIL) 20 MG Tablet, Take 40 mg by mouth., Disp: , Rfl: simvastatin (ZOCOR) 40 MG Tablet, Take 40 mg by mouth., Disp: , Rfl: SITagliptin (JANUVIA) 100 MG Tablet, Take 1 Tablet by mouth., Disp: , Rfl: traMADol (ULTRAM) 50 MG Tablet, TAKE 1 TABLET BY MOUTH EVERY 6 HOURS NEEDED FOR PAIN, Disp: , Rfl: warfarin (COUMADIN) 2 MG Tablet, Take 4 mg by mouth., Disp: , Rfl: No current facility-administered medications for this visit. ALLERGIES: -- Cefazolin -- Rash and Shortness of Breath -- Lisinopril -- Other (see Comments) PROBLEM LIST: There is no problem list on file for this patient. Reason for Visit * Reason Comments Post-Hospital Follow-up [facility] for blood thickness Encounter Details Date Type Department Care Team (Late st Contact Info) Description 11/30/2020 1:20 PM CDT Office Visit [facility] - [facility] [address] [place] [address] Jovita Bermudez MD [address] [place] [address] Daytime somnolence (Primary Dx); Hx of CABG; Permanent atrial fibrillation (HCC); Atrial thrombus; Anxiety; Type 2 diabetes mellitus without complication, without long-term current use of insulin (HCC); Essential hypertension; Dyslipidemia Discharge Disposition: Discharged to home or Selfcare [...] have Coronavirus / COVID-19? No / Unsure 11/29/2020 9:40 AM CDT documented as of this encounter Last Filed Vital Signs Vital Sign Reading Time Taken Comments Blood Pressure 92/60 11/30/2020 1:04 PM CDT Pulse 68 11/30/2020 1:04 PM CDT Temperature 36.4 ??C (97.6 ??F) 11/30/2020 1:04 PM CD T Respiratory Rate 18 11/30/2020 1:04 PM CDT Oxygen Saturation 94% 11/30/2020 1:04 PM CDT Inhaled Oxygen Concentration - - Weight 97.7 kg (215 lb 6.4 oz) 11/30/2020 1:04 P M CDT Height 165.1 cm (5' 5 ) 11/30/2020 1:04 PM CDT Body Mass Index 35.84 11/30/2020 1:04 PM CDT documented in this encounter Progress Notes * Thierry Perez, AEROBICS INSTRUCTOR - 11/30/2020 1:20 PM CDT Tressa Myers, 65 y.o., female is here for Post-Hospital Follow-up ([facility] 11/26/20 for blood thickness) Medication Refills: Patient reports/denies need for medication refills. Orders Pended: no Requested Prescriptions No prescriptions requested or ordered in this encounter Home Medications Medication Sig Start Date End Date Taking? Authorizing Provider Ascorbic Acid 500 MG Chewable Tablet Take 500 mg by mouth. Yes Homero Pugh MD aspirin EC 81 MG Tablet Delayed Response Take 81 mg by mouth. Yes Homero Pugh MD clobetasol (TEMOVATE) 0.05 % Gel APPLY TO NEW LESIONS ON ARMS COVER WITH TAPE THEN WASH OFF IN THE MORNING. REPEAT PROCESS UNTIL LESIONS ARE FLAT THEN USE TWICE A WEEK MA 11/24/20 Yes Homero Pugh MD Eliquis 5 MG Tablet Take 5 mg by mouth 2 times daily. 10/11/20 Homero Pugh MD Empagliflozin (JARDIANCE) 10 MG Tablet 20 mg. 07/19/20 Yes Homero Pugh MD furosemide (LASIX) 40 MG Tablet Take 40 mg by mouth. Yes Homero Pugh MD levothyroxine (SYNTHROID) 75 MCG Tablet Take 75 mcg by mouth. 12/05/18 Yes Homero Pugh MD losartan (COZAAR) 50 MG Tablet Take 50 mg by mouth. Yes Homero Pugh MD metFORMIN (GLUCOPHAGE) 1000 MG Tablet Take 1,000 mg by mouth. 12/05/18 Yes Homero Pugh MD metoprolol Succinate (TOPROL-XL) 100 MG TABLET SR 24 HR Take 150 mg by mouth. Yes Homero Pugh MD metoprolol tartrate (LOPRESSOR) 25 MG Tablet Take 25 mg by mouth 2 times daily. 09/01/20 Yes Homero Pugh MD mupirocin (BACTROBAN) 2 % Ointment APPLY TO OPEN SORES ON ARMS THREE TIMES DAILY FOR 1 WEEK 11/23/20Yes Homero Pugh MD PARoxetine (PAXIL) 20 MG Tablet Take 40 mg by mouth. Yes Homero Pugh MD simvastatin (ZOCOR) 40 MG Tablet Take 40 mg by mouth. Yes Homero Pugh MD SITagliptin (JANUVIA) 100 MG Tablet Take 1 Tablet by mouth. Yes Homero Pugh MD traMADol (ULTRAM) 50 MG Tablet TAKE 1 TABLET BY MOUTH EVERY 6 HOURS NEEDED FOR PAIN 11/14/20 Yes Homero Pugh MD warfarin (COUMADIN) 2 MG Tablet Take 4 mg by mouth. 10/20/20 Yes Homero Pugh MD There are no discontinued medications. I [...] Health Maintenance Due Topic Date Due ??? DEXA Bone Density Never done ??? Mammogram Never done ??? Zoster Immunization (1 of 2) Never done ??? Colorectal Cancer Screening Never done ??? DTaP/Tdap/Td Immunization (2 - Td) 04/03/2016 ??? Pneumococcal Immunization (65+ years) (1 of 1 - PPSV23) 01/09/2020 Orders Pended: no The following BPA's have been addressed with the patient today: Colonoscopy, Mammogram, Fall Risk and Nutrition. All referrals were declined. * Jovita Bermudez MD - 11/30/2020 1:20 PM CDT NEw patient. Prior patient of Dr. Valente Was in [facility] for right kne bruising and a spontanous sub conjunctival hhg. She was started on Warfarin about a month ago- indication as RANDALL showed a left atrial appendage thrombus. She has a hisory of Atrial fib. She was on eliquis previously for a month or two which did not lead to resolution of her clot. Therefore she was switched to coumadin 4 mg initially. With INR of 8 at the [facility] this was adjusted to 3 mg daily which she started last night. CAd- since 2013, s/p CABG in 2013- single vessel with post operative Atrial fib, history of TIA with CAD- CEA. Cardiology note from 11/14 reviewed for full details on cardiac history. She would like a sleep study. She is still reluctant to pursue a stress test. RIght leg bruising is improving, it is still sore and swollen but looks better today. She is off paxil. She was advised to stop it due to the bleeding. She was advised that all SSRI's can lead to platelet issues and not one is better than another. Past Medical History Positives Diagnosis Date ??? Atrial fibrillation (HCC) ??? Congestive heart failure (CHF) (HCC) ??? Diabetes (HCC) ??? Hypertension ??? Thyroid activity decreased Allergies Allergen Reactions ??? Cefazolin Rash and Shortness of Breath ??? 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 4 children, she lives alone pertinent family history includes Cancer in her father. Mother- ID at age 42 years of age Review of Systems Constitutional: Negative for chills and fever. HENT: Negative for ear discharge and ear pain. Eyes: Negative for pain and discharge. Respiratory: Negative for cough and shortness of breath. Cardiovascular: Positive for leg swelling. Negative for chest pain. Gastrointestinal: Negative for constipation, diarrhea, heartburn, nausea and vomiting. Genitourinary: Negative for dysuria and frequency. Neurological: Negative for headaches. Endo/Heme/Allergies: Bruises/bleeds easily. Psychiatric/Behavioral: Negative for depression. The patient is nervous/anxious. The patient does not have insomnia. Physical Exam Constitutional: She is oriented to person, place, and time and well-developed, well-nourished, and in no distress. HENT: Head: Normocephalic and atraumatic. Right Ear: External ear normal. Left Ear: External ear normal. Nose: Nose normal. Mouth/Throat: Oropharynx is clear and moist. Eyes: Pupils are equal, round, and reactive to light. EOM are normal. Right conjunctiva has a hemorrhage. Right eye conjunctival hhg Neck: No thyromegaly present. Cardiovascular: Normal rate and normal heart sounds. An irregular rhythm present. No murmur heard. Irregular rhythm Pulmonary/Chest: Effort normal and breath sounds normal. No accessory muscle usage. No respiratory distress. She has no wheezes. She has no rales. Abdominal: Soft. Bowel sounds are normal. There is no abdominal tenderness. There is no rebound andno guarding. Musculoskeletal: General: Edema present. Cervical back: Neck supple. Comments: Right thigh bruising Lymphadenopathy: She has no cervical adenopathy. Neurological: She is alert and oriented to person, place, and time. Skin: Skin is warm and dry. No rash noted. Vitals reviewed. ASSESSMENT/PLAN Diagnoses and all orders for this visit: Daytime somnolence - SLEEP STUDY REFERRAL; Future - EXTERNAL NEUROLOGY REFERRAL; Future Hx of CABG Permanent atrial fibrillation (HCC) Atrial thrombus Anxiety Type 2 diabetes mellitus without complication, without long-term current use of insulin (HCC) Essential hypertension Dyslipidemia Other orders - Discontinue: Eliquis 5 MG Tablet; Take 5 mg by mouth 2 times daily. - Ascorbic Acid 500 MG Chewable Tablet; Take 500 mg by mouth. - aspirin EC 81 MG Tablet Delayed Response; Take 81 mg by mouth. - clobetasol (TEMOVATE) 0.05 % Gel; APPLY TO NEW LESIONS ON ARMS COVER WITH TAPE THEN WASH OFF IN THE MORNING. REPEAT PROCESS UNTIL LESIONS ARE FLAT THEN USE TWICE A WEEK MA - Empagliflozin (JARDIANCE) 10 MG Tablet; 20 mg. - furosemide (LASIX) 40 MG Tablet; Take 40 mg by mouth. - levothyroxine (SYNTHROID) 75 MCG Tablet; Take 75 mcg by mouth. - losartan (COZAAR) 50 MG Tablet; Take 50 mg by mouth. - metFORMIN (GLUCOPHAGE) 1000 MG Tablet; Take 1,000 mg by mouth. - metoprolol Succinate (TOPROL-XL) 100 MG TABLET SR 24 HR; Take 150 mg by mouth. - metoprolol tartrate (LOPRESSOR) 25 MG Tablet; Take 25 mg by mouth 2 times daily. - mupirocin (BACTROBAN) 2 % Ointment; APPLY TO OPEN SORES ON ARMS THREE TIMES DAILY FOR 1 WEEK - Discontinue: PARoxetine (PAXIL) 20 MG Tablet; Take 40 mg by mouth. - simvastatin (ZOCOR) 40 MG Tablet; Take 40 mg by mouth. - SITagliptin (JANUVIA) 100 MG Tablet; Take 1 Tablet by mouth. - Discontinue: traMADol (ULTRAM) 50 MG Tablet; TAKE 1 TABLET BY MOUTH EVERY 6 HOURS NEEDED FOR PAIN - Discontinue: warfarin (COUMADIN) 2 MG Tablet; Take 4 mg by mouth. - warfarin (COUMADIN) 2 MG Tablet; Take 1.5 Tablets by mouth. - busPIRone (BUSPAR) 10 MG Tablet; Take 1 Tablet by mouth 3 times daily. INR to be monitored by Nurses Director A1c requested Switch to buspar for anxiety Sleep study advised continue current meds. Jovita Bermudez MD documented in this encounter Plan of Treatment Upcoming Encounters Date Type Department Care Team (Late st Contact Info) Description 10/29/2024 9:30 AM MOUNTER CLARINETS Office [facility] - [facility] [address] [place] [address] Bhargavi Morel, [facility] [address] [place] [address] Scheduled Referrals Name Type Priority Associated Diagnoses Orde r Schedule SLEEP STUDY REFERRAL Outpatient Referral Routine Daytime somnolence Expected: 11/30/2020, Expires: 03/01/2021 EXTERNAL NEUROLOGY REFERRAL Outpatient Referral Routine Daytime somnolence Expected: 11/30/2020, Expires: 11/30/2021 documented as of this encounter Visit Diagnoses Diagnosis Daytime somnolence- Primary Hypersomnia, unspecified Hx of CABG Postsurgical aortocoronary bypass status Permanent atrial fibrillation (HCC) Atrial fibrillation Atrial thrombus Other ill-defined heart disease Anxiety Anxiety state, unspecified Type 2 diabetes mellitus without complication, without long-term current use of insulin (HCC) Essential hypertension Unspecified essential hypertension Dyslipidemia Other and unspecified hyperlipidemia documented in this encounter Care Teams Gallery Or Museum Guide Relationship Specialty Start Date End Date Jovita Bermudez MD [address] [place] [address] PCP - General Family Medicine 11/30/20 07/21/23 documented as of this encounter
--- OUTSIDE RECORDS SUMMARY | 2024-08-30 18:51 | XMS_ITS | Encounter Summary ---
Author Organization [facility] Address [address] [place] [address] Phone Care Team Providers Care Automobile Mechanic Radiator Name Role Phone Jovita Bermudez MD Primary Care Provider [phone] Reason for Visit * Reason Onset Date Comments Knee Pain 03/17/2021 Encounter Details Date Type Department Care Team (Late st Contact Info) Description 03/17/2021 Nurse Triage [facility] [address] [place] [address] Jovita Bermudez MD [address] [place] [address] Knee Pain Social History Tobacco Use Types [...] encounter Miscellaneous Notes * Telephone Encounter - Betty Norton RN - 03/17/2021 8:53 AM CDT Images from the original note were not included. SITUATION: Right knee pain & wanting to get in today for an OV. BACKGROUND: CHF, HTYN, A-Fib, DM, OSAPain started about 6 days ago ASSESSMENT: Patient says that she has been having right knee pain for the past 5 days. Patient rates pain 9/10. Patient describes pain as an aggravating, throbbing constant pain. She doesn't notice any swelling but when she saw her proofing machine operator yesterday that he did. She says that her heart checked out ok & no concerns related to. She says that she has difficulty getting up out of a chair & standing on it. She says that she has been using Tylenol & elevating & bio freeze which she says helps very little. Appointment made: Today at 1:15. Patient will need a wheelchair. RECOMMENDATION: See care advice and disposition for Guideline First positive answer recorded, all responses to prior questions were negative. If symptoms increase, change or if new symptoms develop, call your HCP or call back. Recommendations were based on caller information and is not a diagnosis. Verified and reviewed all triage information with caller. Reason for Disposition ??? SEVERE pain (e.g., excruciating, unable to walk) Protocols used: KNEE PAIN-A-[place] Travel Screening Question Response In the last month, have you been in contact with someone who was confirmed or suspected to have Coronavirus / COVID-19? No / Unsure Have you had a COVID-19 viral test in the last 14 days? No Do you have any of the following new or worsening symptoms? None of these Have you traveled internationally in the last month? No Travel History Travel since 02/15/21 No documented travel since 02/15/21 COVID-19 Testing Priority for Tressa Myers: 4 documented in this encounter Plan of Treatment Upcoming Encounters Date Type Department Care Team (Late st Contact Info) Description 10/29/2024 9:30 AM DIRECTOR OF INFECTION PREVENTION Office Visit [facility] - [facility] [address] [place] [address] Bhargavi Morel, PAC [address] [place] [address] documented as of this encounter Visit Diagnoses Not on filedocumented in this encounter Care Teams Automobile Mechanic Radiator Relationship Specialty Start Date End Date Jovita Bermudez MD [address] [place] [address] PCP - General Family Medicine 11/30/20 07/21/23 documented as of this encounter
--- OUTSIDE RECORDS SUMMARY | 2024-08-30 18:51 | XMS_ITS | Encounter Summary ---
Author Organization [facility] Care Team Providers Care Member Of Technical Staff Name Role Phone Jovita Bermudez MD Primary Care Provider [phone] Encounter Details Date Type Department Care Team (Latest Contact Info) Description 03/17/2021 Travel Social History Tobacco Use Types Packs/Day [...] Contact Info) Description 10/29/2024 9:30 AM PACKAGE YARNS DRYING MACHINE OPERATOR Office Visit [facility] - [facility] [address] [place] [address] Bhargavi Morel, ARAM [address] [place] [address] documented as of this encounter Visit Diagnoses Not on filedocumented in this encounter Care Teams Member Of Technical Staff Relationship Specialty Start Date End Date Jovita Bermudez MD [address] [place] [address] PCP - General Family Medicine 11/30/20 07/21/23 documented as of this encounter
--- OUTSIDE RECORDS SUMMARY | 2024-08-30 18:51 | XMS_ITS | Encounter Summary ---
Author Organization [facility] Address [address] [place] [address] Phone Care Team Providers Care Massage Coordinator Name Role Phone Jovita Bermudez MD Primary Care Provider [phone] Reason for Referral * Radiology Services (STAT with Interpretation) - Closed Specialty Diagnoses / Procedures Referred By Sobeidaac t Referred To Contact Radiology Diagnoses Localized edema Procedures US RIGHT DUPLEX LOWER EXTREMITY VEINS Harry Howell MD Phone: tel: fax: Referral ID Status Reason Start Date Expiration Date Visits Re quested Visits Authorized [id number] Closed 03/17/2021 1 1 Reason for Visit * Radiology Services (STAT with Interpretation) - Closed Specialty Diagnoses / Procedures Referred By Shayan dhillon Referred To Contact Radiology Diagnoses Localized edema Procedures US RIGHT DUPLEX LOWER EXTREMITY VEINS Harry Howell MD Phone: tel: fax: Referral ID Status Reason Start Date Expiration Date Visits Re quested Visits Authorized [id number] Closed 03/17/2021 1 1 Encounter Details Date Type Department Care Team (Latest Contact Info) Description 03/17/2021 2:02 PM CDT - 03/17/2021 11:59 PM CDT Hospital Encounter [facility] Ultrasound 1 [place] [id number] Harry Howell MD [address] [place] [address] Discharge Disposition: Discharged to home or Selfcare [...] AM CDT documented as of this encounter Medications at Time of Discharge Ascorbic Acid 500 MG Chewable Tablet Take 500 mg by mouth. aspirin EC 81 MG Tablet Delayed Response Take 81 mg by mouth. Glucose Blood StripIndications :Type 2 diabetes mellitus without complication, without long-term current use of insulin ([facility]) Diagnosis: Diabetes type 2 Blood testing frequency: once a day 100 Strip 3 02/23/2021 warfarin (COUMADIN) 2 MG Tablet Take 3 mg by mouth. Takes 2mg one day and then the next 1.5mg alternating. 90 Tablet 11/30/2020 Blood Glucose Monitoring Suppl DeviceIndication s:Type 2 diabetes mellitus without complication, without long-term current use of insulin ([facility]) glDiagnosis: Diabetes type 2 Blood testing frequency: once a day 1 Each 02/23/2021 04/10/2023 clobetasol (TEMOVATE) 0.05 % Gel 11/24/2020 10/17/2023 furosemide (LASIX) 40 MG Tablet Take 1 Tablet by mouth daily. 90 Tablet 1 01/19/2021 05/04/2021 Jardiance 25 MG Tablet TAKE ONE TABLET BY MOUTH EVERY DAY 30 Tablet 2 02/25/2021 06/14/2021 levothyroxine (SYNTHROID) 75 MCG Tablet Take 1 Tablet by mouth daily. 90 Tablet 1 01/19/2021 01/18/2022 losartan (COZAAR) 50 MG Tablet Take 1 Tablet by mouth daily. 90 Tablet 1 01/19/2021 06/14/2021 metFORMIN (GLUCOPHAGE) 1000 MG Tablet Take 1 Tablet by mouth 2 times daily. 180 Tablet 1 01/19/2021 10/18/2021 metoprolol Succinate (TOPROL-XL) 100 MG TABLET SR 24 HR Take 1.5 Tablets by mouth daily. 135 Tablet 1 01/19/2021 05/04/2021 mupirocin (BACTROBAN) 2 % Ointment APPLY TO OPEN SORES ON ARMS THREE TIMES DAILY FOR 1 WEEK 11/23/2020 10/18/2022 PARoxetine (PAXIL) 40 MG Tablet Take 1 Tablet by mouth daily. 90 Tablet 01/19/2021 05/25/2021 simvastatin (ZOCOR) 40 MG Tablet Take 1 tablet by mouth once daily 90 Tablet 1 03/09/2021 09/04/2022 SITagliptin (JANUVIA) 100 MG Tablet Take 1 Tablet by mouth daily. 90 Tablet 1 01/19/2021 08/16/2021 traMADol (ULTRAM) 50 MG Tablet Take 1 Tablet by mouth every 6 hours as needed for Moderate or more severe pain. 28 Tablet 03/17/2021 05/04/2021 documented as of this encounter Plan of Treatment Upcoming Encounters Date Type Department Care Team (Late st Contact Info) Description 10/29/2024 9:30 AM NUCLEAR PHYSICIAN Office Visit [facility] - [facility] [address] [place] [address] Bhargavi Morel, PAC [address] [place] [address] documented as of this encounter Procedures Procedure Name Priority Date/Time Associated Diagnosis Comments US RIGHT DUPLEX LOWER EXTREMITY VEINS Stat with Interpretation 03/17/2021 2:18 PM CDT Localized edema documented in this encounter Results * US RIGHT DUPLEX LOWER EXTREMITY VEINS (03/17/2021 2:18 PM CDT) Anatomical Region Laterality Modality vascular Right Ultrasound 03/17/2021 2:20 PM CDT Impressions 03/17/2021 2:23 PM CDT IMPRESSION: ?? 1. ?? No right lower extremity deep venous thrombosis. ?? Narrative 03/17/2021 2:23 PM CDT EXAM DESCRIPTION: ?? US RIGHT DUPLEX LOWER EXTREMITY VEINS REASON FOR STUDY: ?? Right knee pain and swelling for 4 months. ?? Worse in the last week. TECHNIQUE: ??Duplex scan using the B-mode, spectral Doppler, and color-flow Doppler of the deep venous system of the ??right lower extremity was performed. Images stored on PACS. COMPARISON: ?? None available FINDINGS: ??The common femoral, common femoral-saphenous vein confluence, visualized profunda femoral, superficial femoral, and popliteal veins are readily compressible with no intraluminal thrombus on maurer scale images. ??There is normal color and spectral Doppler signal, including augmentation. ??Greater saphenous vein appears patent. Visualized calf veins are patent. THIS IS AN ELECTRONICALLY VERIFIED FINAL REPORT 03/17/2021 2:20 PM - Electronically signed by Nathan Jerez M.D. LB: LEONELA D: ??03/17/2021 2:20 PM T: ??03/17/2021 2:20 PM Report ID: [id number] Reading Location: ??[id number] Procedure Note Nathan Jerez MD - 03/17/2021 EXAM DESCRIPTION: US RIGHT DUPLEX LOWER EXTREMITY VEINS REASON FOR STUDY: Right knee pain and swelling for 4 months. Worse in the last week. TECHNIQUE: Duplex scan using the B-mode, spectral Doppler, and color-flow Doppler of the deep venous system of the right lower extremity was performed. Images stored on PACS. COMPARISON: None available FINDINGS: The common femoral, common femoral-saphenous vein confluence, visualized profunda femoral, superficial femoral, and popliteal veins are readily compressible with no intraluminal thrombus on maurer scale images. There is normal color and spectral Doppler signal, including augmentation. Greater saphenous vein appears patent. Visualized calf veins are patent. THIS IS AN ELECTRONICALLY VERIFIED FINAL REPORT 03/17/2021 2:20 PM - Electronically signed by Nathan GIPSON: LEONELA Report ID: [id number] Reading Location: [id number] IMPRESSION: 1. No right lower extremity deep venous thrombosis. us Harry Howell MD IMG US ORDERABLES Final Result documented in this encounter Visit Diagnoses Diagnosis Localized edema Edema documented in this encounter Care Teams Massage Coordinator Relationship Specialty Start Date End Date Jovita Bermudez MD [address] [place] [address] PCP - General Family Medicine 11/30/20 07/21/23 documented as of this encounter
--- OUTSIDE RECORDS SUMMARY | 2024-08-30 18:51 | XMS_ITS | Encounter Summary ---
Author Organization [facility] Address [address] [place] [address] Phone Care Team Providers Care Revenue Enforcement Agent Name Role Phone Jovita Bermudez MD Primary Care Provider [phone] Reason for Visit * Reason Comments Medication Refill Encounter Details Date Type Department Care Team (Late st Contact Info) Description 03/08/2021 Refill [facility] - [facility] [address]2 [place] [address] Jovita Bermudez MD [address] [place] [address] Medication Refill Social History Tobacco Use Types [...] Telephone Encounter - Reanna Rios RN - 03/09/2021 9:50 AM CDT Medication(s) refilled and [facility] Medication Refill Standing Order for Pediatricand Adult Patients. Requested Prescriptions Pending Prescriptions Disp Refills ??? simvastatin (ZOCOR) 40 MG Tablet [Pharmacy Med Name: Simvastatin 40 MG Oral Tablet] 90 Tablet 1 Sig: Take 1 tablet by mouth once daily Hmg CoA Reductase Inhibitors Protocol Passed - 03/08/2021 6:20 PM Passed - Visit with relevant provider in past 12 months or upcoming 90 days Recent Visits Date Type Provider Dept 01/19/21 Office Visit Jovita Bermudez MD [facility] 11/30/20 Office Visit Jovita Bermudez MD [facility] [place] Showing recent visits within past 365 days and meeting all other requirements Future Appointments No visits were found meeting these conditions. Showing future appointments within next 90 days and meeting all other requirements Passed - Lipid panel in past 12 months LDL Date Value Ref Range Status 02/23/2021 47 5 - 130 mg/dL Final HDL CHOLESTEROL Date Value Ref Range Status 02/23/2021 40.7 >40 mg/dL Final CHOLESTEROL Date Value Ref Range Status 02/23/2021 106 <=200 mg/dL Final TRIGLYCERIDES Date Value Ref Range Status 02/23/2021 94 <150 mg/dL Final VLDL Date Value Ref Range Status 02/23/2021 19 5 - 55 mg/dL Final CHOL/HDL RATIO Date Value Ref Range Status 02/23/2021 2.6 0.0 - 4.4 Final NON-HDL CHOLESTEROL Date Value Ref Range Status 02/23/2021 65.3 <130 mg/dL Final documented in this encounter Plan of Treatment Upcoming Encounters Date Type Department Care Team (Late st Contact Info) Description 10/29/2024 9:30 AM LOCOMOTIVE INSPECTOR Office Visit [facility] - Family Medicine [facility] [address] [place] [address] Bhargavi Morel, ARAM [address] [place] [address] documented as of this encounter Visit Diagnoses Not on filedocumented in this encounter Care Teams Revenue Enforcement Agent Relationship Specialty Start Date End Date Jovita Bermudez MD [address] [place] [address] PCP - General Family Medicine 11/30/20 07/21/23 documented as of this encounter
--- OUTSIDE RECORDS SUMMARY | 2024-08-30 18:51 | XMS_ITS | Encounter Summary ---
Author Organization [facility] Address [address] [place] [address] Phone Care Team Providers Care Teaching Artist Name Role Phone Jovita Bermudez MD Primary Care Provider [phone] Reason for Referral * Consult, Test & Initiate Treatment (Less Than 2 Weeks) - Closed Specialty Diagnoses / Procedures Referred By Shayan dhillon Referred To Contact Pulmonology Diagnoses Severe sleep apnea Jovita Bermudez MD [address] [place] [address] Phone: tel: fax: [facility] PULMONOLOGY [address] [place] [address] Phone: tel: fax: Referral ID Status Reason Start Date Expiration Date Visits Re quested Visits Authorized [id number] Closed 12/21/2020 1 1 Scheduling Instructions Tressa is being referred to Dr. Hurd for severe sleep apnea. Patient had a split night sleep study 12/14/20. Please contact patient for scheduling questions or concerns. See below for Terssa's current medications, allergies and problem list. CURRENT [...] Rfl: PARoxetine (PAXIL) 20 MG Tablet, Take 1 Tablet by [...] without long-term current use of insulin (HCC) High blood pressure Dyslipidemia Reason for Visit * Reason Onset Date Comments Results 12/20/2020 Polysomnogram Re sult/ Med Management- Buspar DC'd & Paxil reorder Encounter Details Date Type Department Care Team (Late st Contact Info) Description 12/20/2020 Telephone [facility] [address] [place] [address] Jovita Bermudez MD [address] [place] [address] Results (Polysomnogram Result/ Med Management- Buspar DC'd & Paxil reorder) Social History Tobacco Use Types Packs/Day Years [...] encounter Miscellaneous Notes * Telephone Encounter - Sandra Ludwig - 12/22/2020 9:32 AM CDT Tressa requesting sleep study to be faxded to automobile salesman. Dr. Grisel Trejo [facility] Information faxed per her request. * Telephone Encounter - Sherry Knight RN - 12/21/2020 3:33 PM CDT Patient was notified PCP said sleep study showed severe sleep apnea and referral to Dr. Hurd ordered. Patient voiced understanding and said that was fine. The patient was notified PCP said to CARLOS Paulino and OK to restart Paxil 20 mg qd. (Rx sent to pharmacy). The patient said she used to take Paxil20 mg 2 tablets 40 mg daily. The patient is asking if PCP wants to start the 20 mg daily and maybe move up to 40 mg daily after a certain time period? * Telephone Encounter - Jovita Bermudez MD - 12/21/2020 2:42 PM CDT Severe sleep apnea noted. Ok to see sleep specialist Dr. Hurd * Telephone Encounter - Sherry Knight RN - 12/21/2020 2:03 PM CDT Polysomnogram result and interpretation in chart. ([id number] document). The interpretation is the second document. Patient is requesting polysomnogram result. PENDED Paxil Rxto PCP. * Telephone Encounter - Jovita Bermudez MD - 12/21/2020 7:[address] Hurd provide a reading pleas nicho the sleep study. Ok to restart paxil at 20 mg qd, monitor for bleeding. D/c buspar * Telephone Encounter - Donte Hurd RN - 12/20/2020 4:48 PM CDT Patient is requesting results of sleep study. Director Of Strategic Partnerships would to know the interpretation of results as well. Patient would like to go back on Paxil. Buspirone is not agreeing with her and upsets her stomach. Please advise. documented in this encounter Plan of Treatment Upcoming Encounters Date Type Department Care Team (Late st Contact Info) Description 10/29/2024 9:30 AM CERTIFIED COATINGS INSPECTOR Office Visit [facility] Medical [facility] - [facility] [address] [place] [address] Bhargavi Morel, [facility] [address] [place] [address] Scheduled Referrals Name Type Priority Associated Diagnoses Order Schedule PULMONARY REFERRAL Outpatient Referral Less Than 2 weeks Severe sleep apnea Expected: 12/21/2020, Expires: 12/21/2021 documented as of this encounter Visit Diagnoses Diagnosis Anxiety- Primary Anxiety state, unspecified Severe sleep apnea documented in this encounter Care Teams Teaching Artist Relationship Specialty Start Date End Date Jovita Bermudez MD [address] [place] [address] PCP - General Family Medicine 11/30/20 07/21/23 documented as of this encounter
--- OUTSIDE RECORDS SUMMARY | 2024-08-30 18:51 | XMS_ITS | Encounter Summary ---
Author Organization [facility] Address [address] [place] [address] Phone Care Team Providers Care Radio Aerial Installer Name Role Phone Jovita Bermudez MD Primary Care Provider [phone] Reason for Visit * Reason Onset Date Comments Need Order 12/06/2020 Encounter Details Date Type Department Care Team (Late st Contact Info) Description 12/06/2020 Telephone [facility] #2 [place] [address] Jovita Bermudez MD [address] [place] [address] Need Order Social History Tobacco Use Types Packs/Day Years [...] Telephone Encounter - Sherry Knight RN - 12/06/2020 3:43 PM CDT The patient was notified PCP ordered her Covid swab test to do 72 hours or sooner prior to sleep study at [facility] outpatient. The patient voiced understanding and said alright. * Telephone Encounter - Reanna Rios RN - 12/06/2020 10:06 AM CDT Beba with Sleep Study lab called and requested COVID swab for upcoming sleep study that is scheduled for 12/13/20. Order pended for review. documented in this encounter Plan of Treatment Upcoming Encounters Date Type Department Care Team (Late st Contact Info) Description 10/29/2024 9:30 AM INCOME AUDITOR Office Visit [facility] Medical [facility] - Family Medicine [facility] [address] [place] [address] Bhargavi Morel, PAC [address] [place] [address] documented as of this encounter Results * SARS-COV-2 BY MOLECULAR (12/11/2020 8:21 AM CDT) SARSCOV2 NOT DETECTED (Referen ce Range for this test is Not Detected ) [facility] THERMOFISHER FAST DX 12/12/2020 3:07 AM CDT [facility] Comment:This test was perfor med by a RT-PCR method. Other NASOPHARYNGEAL STRUCTURE / Unknown Non-Phlebotomy Collection / Unknown 12/11/2020 8:21 AM CDT 12/11/2020 8:31 AM CDT Narrative [facility] - 12/12/2020 3:07 AM CDT Authorized Fact Sheets about this test for providers and patients are available at: https://www.fda.gov/medical-devices/vqixbewsm-wyfjqvrmvr-kmdhtrc-devices/emergen -us e-authorizations us Jovita Bermudez MD MICROBIOLOGY - GENERAL LISY LAMB Final Result [facility] [address] [place] [address], [place] documented in this encounter Visit Diagnoses Diagnosis Pre-procedure lab exam- Primary Pre-procedural laboratory examination documented in this encounter Care Teams Radio Aerial Installer Relationship Specialty Start Date End Date Jovita Bermudez MD [address] [place] [address] PCP - General Family Medicine 11/30/20 07/21/23 documented as of this encounter
--- OUTSIDE RECORDS SUMMARY | 2024-08-30 18:51 | XMS_ITS | Encounter Summary ---
Author Organization [facility] Address [address] [place] [address] Phone Care Team Providers Care Power Line Lineman Name Role Phone Jovita Bermudez MD Primary Care Provider [phone] Reason for Visit * Consult, Test & Initiate Treatment (Routine) - Closed Specialty Diagnoses / Procedures Referred By Contjuani t Referred To Contact Sleep Center Diagnoses Daytime somnolence Jovita Bermudez MD [address] [place] [address] Phone: tel: fax: [facility] Sleep Lab [address] [place] [address] Phone: tel: fax: Referral ID Status Reason Start Date Expiration Date Visits Re quested Visits Authorized [id number] Closed 11/30/2020 1 2 Encounter Details Date Type Department Care Team (Late st Contact Info) Description 12/13/2020 8:00 PM CDT [facility] [address] [place] [address] Jovita Bermudez MD [address] [place] [address] Daytime somnolence Discharge Disposition: Discharged to home or Selfcare [...] PM CDT documented as of this encounter Procedure Notes * Flaquito Hurd MD - 12/13/2020 8:00 PM CDT EVALUATION REPORT Tressa Myers 12-13-2020 Ms. Tressa Myers, a 65 year old Female (1955), was seen at the [facility] for a sleep apnea evaluation. She has a history significant for atrial fibrillation, HTN, dyslipidemia, CAD, cardiomyopathy, DM, CVA, anxiety, and anxiety. [place] Scale is 18. Her current height is 4'7 and weight is 210.0 pounds, her BMI is 48.8 and her neck size is 17 inches. She is referred by Dr. Jovita Bermudez. SUMMARY: ??? Severe obstructive sleep apnea syndrome (G47.33) ??? Overall AHI=48.6/hr, low SpO2 = 67% ??? Due to the severity of sleep apnea observed during the baseline portion of the recording CPAP was initiated with pressures ranging from 4cm-17cm H20. ??? Anterior tibialis EMG monitoring revealed 131 periodic leg movements in sleep (69.2 per hour), 19 of which were associated with unambiguous EEG arousal (10.0 per hour). ??? Sleep and respiration normalized at a CPAP setting of 14 cm of H2O. ??? Overall AHI at optimal setting=1.8/hr; low SaO2=90%. ??? No seizure activity observed in EEG tracing. recommendations: ??? Trial with Nasal CPAP 14 cm of H2O with a heated humidifier and a ResMed [id number] mask. ??? She should follow up with my office in 31 to 90 days to assess the efficacy and compliance withnasal CPAP. ??? Should the patient have difficulty tolerating PAP, consultation for an oral appliance may also be considered. ??? Consider evaluation for underlying causes of PLMD, including iron deficiency. ??? Consider treatment for PLMs with pharmacological agents. ??? Obtain and maintain ideal body weight. ??? Avoid alcohol and other RENTAL CAR FERRY DRIVER depressants. If daytime sleepiness persists, despite the above recommendations, a reevaluation with daytime somnolence testing may be considered. POLYSOMNOGRAPHY: Nocturnal polysomnography was performed 12-13-2020 (08:33 p.m. to 04:54 a.m.), using standard recording parameters which include Frontal, Central and Occipital EEG,, left and right EOG, submental EMG, EKG, left and right anterior tibialis EMG, abdominal and thoracic respiratory effort, nasal/oral airflow, and oximetry. Epochs of data was staged and scored by registered technologist according to published AASM scoring guidelines and the 30% reduction in airflow associated with a 4% or greater desaturation for definition of hypopnea (AASM Rule 1B). She estimated obtaining 6 hours of sleep the night before testing. BASELINE SLEEP DATA: Ms. Myers had a total sleep time (TST) of 113.5 minutes out of 142.0 minutes total recording time (TRT) for a sleep efficiency (TST/TRT) of 79.9%. Sleep latency was 4.3 minutes and REM latency was 109.0 minutes. Sleep architecture was remarkable for mildly increased stage 1 sleep at 13.7% of totalsleep time (15.5 minutes). Stage N2 sleep was 67% (76.5 minutes), Stage N3 sleep was 0.0 % (No SWS minutes) and Stage R sleep was 18.9% (21.5 minutes). There were 4.2 spontaneous arousals per hour ofsleep. BASELINE RESPIRATORY MONITORING: Respiratory monitoring revealed 3 obstructive apneas, 0 mixed apneas, 0 central apnea and 89 partial upper airway obstructions (obstructive hypopneas) resulting in an overall apnea and hypopnea index(AHI) of 48.6 per hour of sleep. The longest noted apnea was 22.5 seconds. Her overall supine AHI was 65.5 events per hour of supine sleep (11.0minutes total supine sleep) and lateral AHI was 46.8 events per hour of lateral sleep (102.5 minutes total lateral sleep). There was an average of 50.9 apneas and hypopneas per hour of non-REM sleep and an average of 36.3 apneas and hypopneas per hour of REM sleep. Baseline waking SaO2 was 94%, mean sleeping SaO2 was 92% and the lowest SaO2 was 67%. Technicians noted rare mild snores during sleep. LIMB MOVEMENTS AND ECG: Anterior tibialis EMG monitoring revealed 131 periodic leg movements in sleep 23.5 per hour), 19 ofwhich were associated with unambiguous EEG arousal (3.4 per hour). ECG showed atrial fibrillation. Average heart rate was 86.4 bpm, and maximum heart rate was 111.0 bpm TITRATION OF NASAL CPAP: Because of sleep apnea (G47.33), the baseline recording was stopped and treatment testing was started. Nasal CPAP was administered with pressures ranging from 4.0 to 17.0 cm. The optimal setting for resolution of obstructive breathing and snoring was determined to be 14 cm. At this setting the patient had a total sleep time (TST) of 32.9 minutes out of 57.3 minutes total recording time (TRT) for a sleep efficiency (TST/TRT) of 57.3%. Stage N1 sleep was reduced to 45.4% of total sleep time. The overall AHI at the optimal setting was 1.8 events per hour of sleep at this pressure. There were an additional 0.0 respiratory event related arousals (RERA) per hour which resulted in an overall sleepdisordered breathing (SDB) index of 1.8/hr. There were 51.1 spontaneous arousals per hour noted at the optimal setting. The lowest SpO2 at this pressure was 90%. SpO2 during REM sleep was usually between 90-96%. PATIENT ASSESSMENT: On the morning post sleep questionnaire, the patient estimated a sleep latency of 30 minutes and a total sleep time of 3-4 hours. She noted that the sleep in the laboratory was similar to her sleep at home. Thank you for this referral and please call with any questions or concerns. Flaquito Hurd MD Associated attestation - Kuldeep Avendano MD - 12/16/2020 6:27 PM CDT I have read the Sleep Report for this patient and attest that I am in agreement with it. documented in this encounter Plan of Treatment Upcoming Encounters Date Type Department Care Team (Late st Contact Info) Description 10/29/2024 9:30 AM CHAIR AND COUCH MAKER [facility] #2 [place] [address] Bhargavi Morel PAC [address] [place] [address] documented as of this encounter Procedures Procedure Name Priority Date/Time Associated Diagnosis Comments POLYSOMNOGRAPHY 4 OR MORE PARAMETERS Routine 12/14/2020 Daytime somnolence documented in this encounter Results * POLYSOMNOGRAPHY 4 OR MORE PARAMETERS (12/14/2020) Jovita Bermudez MD SLEEP CENTER ORDERABLES Fin al Result documented in this encounter Visit Diagnoses Diagnosis Daytime somnolence Hypersomnia, unspecified documented in this encounter Care Teams Power Line Lineman Relationship Specialty Start Date End Date Jovita Bermudez MD [address] [place] [address] PCP - General Family Medicine 11/30/20 07/21/23 documented as of this encounter
--- OUTSIDE RECORDS SUMMARY | 2024-08-30 18:51 | XMS_ITS | Encounter Summary ---
Author Organization [facility] Address [address] [place] [address] Phone Care Team Providers Care Dry Heat Cabinet Attendant Name Role Phone Jovita Bermudez MD Primary Care Provider [phone] Reason for Visit * Reason Onset Date Comments Labs Only 02/22/2021 Encounter Details Date Type Department Care Team (Late st Contact Info) Description 02/22/2021 Telephone [facility] [address] [place] [address] Jovita Bermudez MD [address] [place] [address] Labs Only Social History Tobacco Use Types Packs/Day [...] Encounter - Sherry Knight RN - 02/23/2021 10:32 AM CDT The patient was notified PCP said she would order glucometer and strips. Patient said to send orders to [facility]. PENDED orders for Glucometer and strips to PCP. * Telephone Encounter - Jovita Bermudez MD - 02/23/2021 9:41 AM CDT Yes ok to pend * Telephone Encounter - Evelyn Freeman RN - 02/22/2021 4:16 PM CDT Patient calling in to schedule a time to get labs drawn. Scheduled for 02/23/21 at 0830, advised patient she needed to fast, verbalized understanding and agreed. Patient states that she needs a new glucometer and testing strips, as my machine doesn't work anymore. Would provider be willing to prescribe a (new) glucometer and testing strips for patient? Please advise Thank you documented in this encounter Plan of Treatment Upcoming Encounters Date Type Department Care Team (Late st Contact Info) Description 10/29/2024 9:30 AM CLINICAL FACULTY Office Visit [facility] - Family [facility] [address] [place] [address] Bhargavi Morel PAC [address] [place] [address] documented as of this encounter Visit Diagnoses Diagnosis Type 2 diabetes mellitus without complication, without long-term current use of insulin (HCC)- Primary documented in this encounter Care Teams Dry Heat Cabinet Attendant Relationship Specialty Start Date End Date Jovita Bermudez MD [address] [place] [address] PCP - General Family Medicine 11/30/20 07/21/23 documented as of this encounter
--- OUTSIDE RECORDS SUMMARY | 2024-08-30 18:51 | XMS_ITS | Encounter Summary ---
Author Organization [facility] Address [address] [place] [address] Phone Care Team Providers Care Hand Thermal Cutter Name Role Phone Jovita Bermudez MD Primary Care Provider [phone] Reason for Visit * Reason Onset Date Comments Prior Authorization 01/11/2021 Encounter Details Date Type Department Care Team (Late st Contact Info) Description 01/11/2021 Telephone [facility] [address] [place] [address] Jovita Bermudez MD [address] [place] [address] Prior Authorization Social History Tobacco Use Types [...] * Telephone Encounter - Edel Elena - 01/12/2021 10:18 AM CDT Attempted to submit prior authorization and per insurance: Available without authorization. * Telephone Encounter - Jovita Bermudez MD - 01/11/2021 2:35 PM CDT Yes ok to proceed, noted on med list * Telephone Encounter - Edel Elena - 01/11/2021 8:54 AM CDT Received a prior authorization request for Jardiance 10mg, I do not see where you have ordered thismedication for her. Is she supposed to be on, if so ok to proceed with prior authorization? documented in this encounter Plan of Treatment Upcoming Encounters Date Type Department Care Team (Late st Contact Info) Description 10/29/2024 9:30 AM PLUG SAW OPERATOR Office Visit [facility] [address] [place] [address] Bhragavi Morel, PAC [address] [place] [address] documented as of this encounter Visit Diagnoses Not on filedocumented in this encounter Care Teams Hand Thermal Cutter Relationship Specialty Start Date End Date Jovita Bermudez MD [address] [place] [address] PCP - General Family Medicine 11/30/20 07/21/23 documented as of this encounter
--- OUTSIDE RECORDS SUMMARY | 2024-08-30 18:51 | XMS_ITS | Encounter Summary ---
Author Organization [facility] Address [address] [place] [address] Phone Care Team Providers Care Design Leader Name Role Phone Jovita Bermudez MD Primary Care Provider [phone] Bhargavi Morel Primary Care Provider + Flaquito Hurd MD Unavailable Wes Petty MD Unavailable Encounter Details Date Type Department Care Team (Late st Contact Info) Description 02/23/2021 Telephone [facility] [address] [place] [address] Jovita Bermudez MD [address] [place] [address] Social History Tobacco Use Types Packs/Day [...] st Contact Info) Description 10/29/2024 9:30 AM ICER HAND Office Visit [facility] [address] [place] [address] Bhargavi Morel, PAC [address] [place] [address] documented as of this encounter Visit Diagnoses Not on filedocumented in this encounter Additional Health Concerns Infection Onset Date Last Indicated Resolved Time COVID - 19 Comment:Vaccinated; nondetected x2; acute pyelonephritis 06/06/2021 06/09/2021 06/10/2021 6:46 AM CDT Respiratory Rule Out - RPA 06/10/2021 06/10/2021 1 10:25 PM CDT documented as of this encounter Care Teams Design Leader Relationship Specialty Start Date End Date Jovita Bermudez MD [address] [place] [address] PCP - General Family Medicine 11/30/20 07/21/23 Bhargavi Morel, PAC [address] [place] [address] PCP - General Physician Corsage Maker 07/22/23 Flaquito Hurd MD [address] [place] [id number] Consulting Physician Pulmonary Disease 11/09/22 Wes Petty MD [address] [address] Consulting Physician Urology 01/18/24 documented as of this encounter
--- OUTSIDE RECORDS SUMMARY | 2024-08-30 18:51 | XMS_ITS | Encounter Summary ---
Author Organization [facility] [employer] [facility] Care Team Providers Care Composition Floor Layer Name Role Phone Jovita Bermudez MD Primary Care Provider [phone] Encounter Details Date Type Department Care Team (Latest Contact Info) Description 12/11/2020 Travel Social History Tobacco Use Types Packs/Day [...] st Contact Info) Description 10/29/2024 9:30 AM DOMESTIC TRAVEL CONSULTANT Office Visit [facility] - Family Medicine [facility] [address] [place] [address] Bhargavi Morel, ARAM [address] [place] [address] documented as of this encounter Visit Diagnoses Not on filedocumented in this encounter Care Teams Composition Floor Layer Relationship Specialty Start Date End Date Jovita Bermudez MD [address] [place] [address] PCP - General Family Medicine 11/30/20 07/21/23 documented as of this encounter
--- OUTSIDE RECORDS SUMMARY | 2024-08-30 18:51 | XMS_ITS | Encounter Summary ---
Author Organization [facility] [employer] [facility] Care Team Providers Care Tree Thinner Name Role Phone Jovita Bermudez MD Primary Care Provider [phone] Encounter Details Date Type Department Care Team (Latest Contact Info) Description 02/23/2021 Travel Social History Tobacco Use Types Packs/Day [...] st Contact Info) Description 10/29/2024 9:30 AM STORE RECEIVING SPECIALIST Office Visit [facility] Medical Group - Family Medicine [facility] [address] [place] [address] Bhargavi Morel, ARAM [address] [place] [address] documented as of this encounter Visit Diagnoses Not on filedocumented in this encounter Care Teams Tree Thinner Relationship Specialty Start Date End Date Jovita Bermudez MD [address] [place] [address] PCP - General Family Medicine 11/30/20 07/21/23 documented as of this encounter
--- OUTSIDE RECORDS SUMMARY | 2024-08-30 18:51 | XMS_ITS | Encounter Summary ---
Author Organization [facility] Address [address] [place] [address] Phone Care Team Providers Care Soil Field Technician Name Role Phone Jovita Bermudez MD Primary Care Provider [phone] Reason for Visit * Reason Comments Follow-up 6 week Encounter Details Date Type Department Care Team (Late st Contact Info) Description 01/19/2021 9:20 AM CDT Office Visit [facility] - Family [facility] [address] [place] [address] Jovita Bermudez MD [address] [place] [address] Type 2 diabetes mellitus without complication, without long-term current use of insulin (HCC) (Primary Dx); Permanent atrial fibrillation (HCC); Dyslipidemia; Restless legs syndrome (RLS); Anxiety Discharge Disposition: Discharged to home or [...] Sign Reading Time Taken Comments Blood Pressure 128/76 01/19/2021 8:54 AM CDT Pulse 90 01/19/2021 8:54 AM CDT Temperature 36.4 ??C (97.6 ??F) 01/19/2021 8:54 AM CD T Respiratory Rate 16 01/19/2021 8:54 AM CDT Oxygen Saturation 94% 01/19/2021 8:54 AM CDT Inhaled Oxygen Concentration - - Weight 97.1 kg (214 lb) 01/19/2021 8:54 AM CDT Height 165.1 cm (5' 5 ) 01/19/2021 8:54 AM CDT Body Mass Index 35.61 01/19/2021 8:54 AM CDT documented in this encounter Progress Notes * Lo Bray RMA - 01/19/2021 9:20 AM CDT Tressa Myers, 66 y.o., female is here for Follow-up (6 week) Medication Refills: Patient reports/denies need for medication refills. Orders Pended: no Requested Prescriptions No prescriptions requested or ordered in this encounter Home Medications Medication Sig Start Date End Date Taking? Authorizing Provider Ascorbic Acid 500 MG Chewable Tablet Take 500 mg by mouth. Homero Pugh MD aspirin EC 81 MG Tablet Delayed Response Take 81 mg by mouth. Homero Pugh MD busPIRone (BUSPAR) 10 MG Tablet Take 10 mg by mouth. Homero Pugh MD clobetasol (TEMOVATE) 0.05 % Gel APPLY TO NEW LESIONS ON ARMS COVER WITH TAPE THEN WASH OFF IN THE MORNING. REPEAT PROCESS UNTIL LESIONS ARE FLAT THEN USE TWICE A WEEK MA 11/24/20 Homero Pugh MD Empagliflozin (JARDIANCE) 10 MG Tablet 20 mg. 07/19/20 Homero Pugh MD furosemide (LASIX) 40 MG Tablet Take 40 mg by mouth. Homero Pugh MD levothyroxine (SYNTHROID) 75 MCG Tablet Take 75 mcg by mouth. 12/05/18 Homero Pugh MD losartan (COZAAR) 50 MG Tablet Take 50 mg by mouth. Homero Pugh MD metFORMIN (GLUCOPHAGE) 1000 MG Tablet Take 1,000 mg by mouth. 12/05/18 Homero Pugh MD metoprolol Succinate (TOPROL-XL) 100 MG TABLET SR 24 HR Take 150 mg by mouth. Homero Pugh MD metoprolol tartrate (LOPRESSOR) 25 MG Tablet Take 25 mg by mouth 2 times daily. 09/01/20 Homero Pugh MD mupirocin (BACTROBAN) 2 % Ointment APPLY TO OPEN SORES ON ARMS THREE TIMES DAILY FOR 1 WEEK 11/23/20Homero Pugh MD PARoxetine (PAXIL) 20 MG Tablet Take 1 Tablet by mouth daily. 12/21/20 Jovita Bermudez MD rOPINIRole (REQUIP) 0.25 MG Tablet Take 4 Tablets by mouth nightly. 12/28/20 Flaquito Hurd MD simvastatin (ZOCOR) 40 MG Tablet Take 1 Tablet by mouth daily. 12/13/20 Jovita Bermudez MD SITagliptin (JANUVIA) 100 MG Tablet Take 1 Tablet by mouth. Homero Pugh MD warfarin (COUMADIN) 2 MG [...] ??? Pneumococcal Immunization (65+ years) (2 of 2) 01/09/2020 Orders Pended: no The following BPA's have been addressed with the patient today: Advanced Care Planning pt education tdap mammogram ldl bmi HgA1c pneumonia Pneumonia is a serious lung infection that can make you very sick. There are now two vaccines recommended by the Center for Disease Control and Prevention (CDC) to protect against pneumonia for all patients who are 65 years and older and patients under 65 with certain conditions that put them at a higher risk. Request your pneumonia vaccines at your Primary Care Physician???s office or your localpharmacy. * Jovita Bermudez MD - 01/19/2021 9:20 AM CDT Ms. Myers is here for a 6-week follow-up. Reports she has been doing well. Would like to go up on the dose of Paxil. The BuSpar gave her side-effects she states, as for the Requip. Both of the medications she stopped. She has a follow-up with Dr. Hurd coming up. Blood sugars are not being monitored since her glucometer broke. No A1c recently on file. Coumadin is at 3 mg, and INR seems stable. Otherwise compliant with medications. No new problems reported. IJN: [id number] She sees Dr. Bro in January for cardiology follow up Past Medical History Positives Diagnosis Date ??? Atrial fibrillation (HCC) ??? Congestive heart failure (CHF) (HCC) ??? Diabetes (HCC) ??? Hypertension ??? Thyroid activity decreased Allergies Allergen Reactions ??? Cefazolin Rash and Shortness of Breath ??? Lisinopril Other (see Comments) Med list reviewed PHYSICAL EXAM Vitals: 01/19/21 0854 BP: 128/76 Pulse: 90 Resp: 16 Temp: 97.6 ??F (36.4 ??C) TempSrc: Temporal SpO2: 94% Weight: 214 lb (97.1 kg) Height: 5' 5 (1.651 m) Body mass index is 35.61 kg/m??. General appearance: alert, no distress, cooperative, appears stated age Lungs: no acute distress, clear to auscultation bilaterally Heart: irregular rate and rhythm, S1, S2 normal, no murmur, click, rub or gallop Abdomen: soft, non-tender. Bowel sounds normal. No masses, no organomegaly Extremities: extremities normal, atraumatic, no cyanosis or edema ASSESSMENT/PLAN Diagnoses and all orders for this visit: Type 2 diabetes mellitus without complication, without long-term current use of insulin (HCC)- jardiance 20 mg is not being covered well, will increase to 25 mg qd - CMP (COMPREHENSIVE METABOLIC PANEL); Future - LIPID PANEL; Future - UR MICROALBUMIN/CREATININE RATIO RANDOM; Future - HEMOGLOBIN A1C W/ ESTIMATED GLUCOSE; Future - COMPLETE BLOOD COUNT (CBC) WITH DIFF; Future - THYROID STIMULATING HORMONE (TSH); Future Permanent atrial fibrillation (HCC)- rate controlled, on anticoagulation Dyslipidemia- continue statin Restless legs syndrome (RLS) Anxiety- increase paxil to 40 mg qd Other orders - Discontinue: busPIRone (BUSPAR) 10 MG Tablet; Take 10 mg by mouth. - PARoxetine (PAXIL) 40 MG Tablet; Take 1 Tablet by mouth daily. - levothyroxine (SYNTHROID) 75 MCG Tablet; Take 1 Tablet by mouth daily. - losartan (COZAAR) 50 MG Tablet; Take 1 Tablet by mouth daily. - metFORMIN (GLUCOPHAGE) 1000 MG Tablet; Take 1 Tablet by mouth 2 times daily. - metoprolol Succinate (TOPROL-XL) 100 MG TABLET SR 24 HR; Take 1.5 Tablets by mouth daily. - simvastatin (ZOCOR) 40 MG Tablet; Take 1 Tablet by mouth daily. - SITagliptin (JANUVIA) 100 MG Tablet; Take 1 Tablet by mouth daily. - furosemide (LASIX) 40 MG Tablet; Take 1 Tablet by mouth daily. - empagliflozin (JARDIANCE) 25 MG Tablet; Take 1 Tablet by mouth daily for 30 days. continue current meds. Jovita Bermudez MD documented in this encounter Plan of Treatment Upcoming Encounters Date Type Department Care Team (Late st Contact Info) Description 10/29/2024 9:30 AM WETLANDS CONSERVATION LABORER Office Visit [facility] - [facility] [address] [place] [address] Bhargavi Morel Marie, PAC [address] [place] [address] documented as of this encounter Results * THYROID STIMULATING HORMONE (TSH) (02/23/2021 8:25 AM CDT) TSH 1.730 0.270 - 4.200 mIU/L 02/23/2021 1:13 PM CDT [facility] Blood Venipuncture / Unknown 02/23/2021 8:25 AM CDT 02/23/2021 8:25 AM CDT Jovita Bermudez MD CHEMISTRY ORDERABLES Final Result Performing Organization Address City/[facility] Co de Phone Number [facility] [address] [place] [address] * (ABNORMAL) HEMOGLOBIN A1C W/ ESTIMATED GLUCOSE (02/23/2021 8:25 AM CDT) HGB-A1C 7.3(H) 4.0 - 6.0 % 02/23/2021 12:37 PM CDT [facility] Est Average Glucose 162.8 mg/dL 02/23/2021 12:37 PM CDT [facility] Blood Venipuncture / Unknown 02/23/2021 8:25 AM CDT 02/23/2021 8:25 AM CDT Narrative [facility] - 02/23/2021 12:37 PM CDT HEMOGLOBIN A1C: DIABETIC PATIENTS: WELL-CONTROLLED: ?? 6.2 - 7.0 INTERMEDIATE WELL-CONTROLLED: ??7.0 - 9.0 POORLY-CONTROLLED: ??>9.0 Jovita Bermudez MD CHEMISTRY ORDERABLES Final Result Performing Organization Address City/[facility]/ZIP Co de Phone Number [facility] [address] [place] [address] * (ABNORMAL) UR MICROALBUMIN/CREATININE RATIO RANDOM (02/23/2021 8:25 AM CDT) [facility] RAN UR MICROALBUMIN 5.04(H) <=2.00 mg/dL 02/23/2021 1:20 PM CDT [facility] CREATININE URINE 39.8 28.0 - 217.0 mg/dL 02/23/2021 1:20 PM CDT [facility] ALB/CREAT RATIO 127(H) 1 - 30 mg/g CRE 02/23/2021 1:20 PM CDT [facility] Urine Non-Phlebotomy Collection / Unknown 02/23/2021 8:25 AM CDT 02/23/2021 8:25 AM CDT us Jovita Bermudez MD URINE ORDERABLES Final Resu lt [facility] [address] [place] [address] * LIPID PANEL (02/23/2021 8:25 AM CDT) [facility] CHOLESTEROL 106 <=200 mg/dL 02/23/2021 1:13 PM CDT [facility] TRIGLYCERIDES 94 <150 mg/dL 02/23/2021 1:13 PM CDT [facility] HDL CHOLESTEROL 40.7 >40 mg/dL 1:13 PM CDT [facility] LDL 47 5 - 130 mg/dL 02/23/2021 1:13 PM CDT [facility] VLDL 19 5 - 55 mg/dL 02/23/2021 1:13 PM CDT [facility] CHOL/HDL RATIO 2.6 0.0 - 4.4 02/23/2021 1:13 PM CDT [facility] NON-HDL CHOLESTEROL 65.3 <130 mg/dL 02/23/2021 1:13 PM CDT [facility] IS THE PATIENT REQUIRED TO BE FASTING? Yes 02/23/2021 1:13 PM CDT [facility] HAS THE PATIENT BEEN FASTING? Yes 02/23/2021 1:13 PM CDT [facility] Blood Venipuncture / Unknown 02/23/2021 8:25 AM CDT 02/23/2021 8:25 AM CDT us Jovita Bermudez MD CHEMISTRY ORDERABLES Final Result [facility] [address] [place] [address] * (ABNORMAL) CMP (COMPREHENSIVE METABOLIC PANEL) (02/23/2021 8:25 AM CDT) SODIUM 137 136 - 144 mmol/L 02/23/2021 1:13 PM CDT [facility] POTASSIUM 5.3(H) 3.5 - 5.1 mmol/L 02/23/2021 1:13 PM CDT [facility] CHLORIDE 102 100 - 110 mmol/L 02/23/2021 1:13 PM CDT [facility] CO2, VENOUS 26 22 - 32 mmol/L 02/23/2021 1:13 PM CDT [facility] ANION GAP 14.3 8.0 - 20.0 mmol/L 02/23/2021 1:13 PM CDT [facility] GLUCOSE 133(H) 70 - 99 mg/dL 02/23/2021 1:13 PM CDT [facility] BUN 27(H) 8 - 23 mg/dL 02/23/2021 1:13 PM CDT [facility] CREATININE, BLOOD 0.76 0.60 - 1.10 mg/dL 02/23/2021 1:13 PM CDT [facility] BUN/CREATININE RATIO 36(H) 12 - 20 ratio 02/23/2021 1:13 PM CDT [facility] TOTAL PROTEIN 7.6 6.0 - 8.3 g/dL 02/23/2021 1:13 PM CDT [facility] ALBUMIN 3.9 3.5 - 5.2 g/dL 02/23/2021 1:13 PM CDT [facility] Comment: The colormetric methods used for the determination of Albumin may lead to falsely elevated test results in patients suffering from renal failure or insufficiency due to interference with other proteins. A/G RATIO 1.1 1.0 - 2.0 02/23/2021 1:13 PM CDT [facility] CALCIUM 9.3 8.9 - 10.3 mg/dL 02/23/2021 1:13 PM CDT [facility] T BILI 0.4 <=1.2 mg/dL 02/23/2021 1:13 PM CDT [facility] SGOT (AST) 25 <=32 U/L 02/23/2021 1:13 PM CDT [facility] SGPT (ALT) 25 <=41 U/L 02/23/2021 1:13 PM CDT [facility] ALKALINE PHOSPHATASE 95 35 - 105 U/L 02/23/2021 1:13 PM CDT [facility] GFR, EST. NONAFRICAN >60 >=60 02/23/2021 1:13 PM CDT [facility] GFR, EST. >60 >=60 021 1:13 PM CDT [facility] Comment: Creatinine Clearance is the preferred criteria for selecting drug dose adjustments in renally impaired patients. ??The GFR is provided as additional pertinent clinical information. GFR is reported in mL/min/1.73 sq m. IS THE PATIENT REQUIRED TO BE FASTING? No 02/23/2021 1:13 PM CDT [facility] Blood Venipuncture / Unknown 02/23/2021 8:25 AM CDT 02/23/2021 8:25 AM CDT Jovita Bermudez MD CHEMISTRY ORDERABLES Final Result [facility] [address] [place] [address] documented in this encounter Visit Diagnoses Diagnosis Type 2 diabetes mellitus without complication, without long-term current use of insulin (HCC)- Primary Permanent atrial fibrillation (HCC) Atrial fibrillation Dyslipidemia Other and unspecified hyperlipidemia Restless legs syndrome (RLS) Anxiety Anxiety state, unspecified documented in this encounter Care Teams Soil Field Technician Relationship Specialty Start Date End Date Jovita Bermudez MD [address] [place] [address] PCP - General Family Medicine 11/30/20 07/21/23 documented as of this encounter
--- OUTSIDE RECORDS SUMMARY | 2024-08-30 18:51 | XMS_ITS | Encounter Summary ---
Author Organization [facility] Address [address] [place] [address] Phone Care Team Providers Care Supply Person Name Role Phone Jovita Bermudez MD Primary Care Provider [phone] Reason for Visit * Reason Comments Referral referral from jovita for amor * Consult, Test & Initiate Treatment (Less Than 2 Weeks) - Closed Specialty Diagnoses / Procedures Referred By Shayan dhillon Referred To Contact Pulmonology Diagnoses Severe sleep apnea Jovita Bermudez MD [address] [place] [address] Phone: tel: fax: [facility] [address] [place] [address] Phone: tel: fax: Referral ID Status Reason Start Date Expiration Date Visits Re quested Visits Authorized [id number] Closed 12/21/2020 1 1 Encounter Details Date Type Department Care Team (Late st Contact Info) Description 12/28/2020 2:00 PM CDT Telemedicine [facility] - Pulmonology & Sleep Medicine [facility] [address] [place] [phone] Flaquito Hurd MD [address] [place] [id number] AMOR (obstructive sleep apnea) (Primary Dx); Severe sleep apnea; Permanent atrial fibrillation (HCC); Essential (primary) hypertension; Restless legs syndrome (RLS) Social History Tobacco Use Types Packs/Day Years [...] as of this encounter Progress Notes * Lissa Frank CMA - 12/28/2020 2:00 PM CDT 0= would never doze 1= slight chance of dozing 2= moderate chance of dozing 3= high chance of dozing ?? Sitting & Reading----3 ?? Watching TV.-------3 ?? Sitting, inactive in a public place(e.g. Theater, meeting)-------3 ?? Passenger in a car for an hour without a break-----2 ?? Lying down to rest in the afternoon----3 ?? Sitting and talking to someone---0 ?? Sitting quietly after a lunch without alcohol---3 ?? In a car, while stopped for a few minutes in the traffic--0 ?? Total--17 * Flaquito Hurd MD - 12/28/2020 2:00 PM CDT Patient was assessed via telephone for a duration of 12 minutes. Patient verbally consented for this service to be performed and billed. HPI: Tressa Myers is a 65 y.o. female evaluated today for initial visit for AMOR . Patient sleep study done on December 13, 2020 that showed Severe obstructive sleep apnea with apnea-hypopnea index of 48 lowest O2 sat was 67% She required CPAP pressure of 14 cm water She also had periodic leg movements Davey score is 17 Neck size is 17 +COVID shot Current Outpatient Medications: ??? Ascorbic Acid 500 MG Chewable Tablet ??? aspirin EC 81 MG Tablet Delayed Response ??? clobetasol (TEMOVATE) 0.05 % Gel ??? Empagliflozin (JARDIANCE) 10 MG Tablet ??? furosemide (LASIX) 40 MG Tablet ??? levothyroxine (SYNTHROID) 75 MCG Tablet ??? losartan (COZAAR) 50 MG Tablet ??? metFORMIN (GLUCOPHAGE) 1000 MG Tablet ??? metoprolol Succinate (TOPROL-XL) 100 MG TABLET SR 24 HR ??? metoprolol tartrate (LOPRESSOR) 25 MG Tablet ??? mupirocin (BACTROBAN) 2 % Ointment ??? PARoxetine (PAXIL) 20 MG Tablet ??? rOPINIRole (REQUIP) 0.25 MG Tablet ??? simvastatin (ZOCOR) 40 MG Tablet ??? SITagliptin (JANUVIA) 100 MG Tablet ??? warfarin (COUMADIN) 2 MG Tablet The past medical, surgical, family and social histories, and allergies were reviewed and updated asneeded. ROS: All 14 systems reviewed and negative except as mentioned in the HPI. Plan: ICD-10-CM 1. AMOR (obstructive sleep apnea) G47.33 2. Severe sleep apnea G47.30 PULMONARY REFERRAL 3. Permanent atrial fibrillation (HCC) I48.21 4. Essential (primary) hypertension I10 5. Restless legs syndrome (RLS) G25.81 Start the CPAP at 14 cm water Discussed sleep hygiene Start ropinirole Continue antihypertensives Follow Up: Tressa was asked to follow up with Flaquito Hurd MD in 3 month(s). documented in this encounter Miscellaneous Notes * Addendum Note - Lissa Frank, [facility] - 12/28/2020 2:00 PM CDTAddended by: LISSA FRANK on: 12/28/2020 02:37 PM Modules accepted: Orders * Addendum Note - Lissa Frank CMA - 12/28/2020 2:00 PM CDTAddended by: LISSA FRANK on: 12/28/2020 03:05 PM Modules accepted: Orders documented in this encounter Plan of Treatment Upcoming Encounters Date Type Department Care Team (Late st Contact Info) Description 10/29/2024 9:30 AM SNOWMAKER Office Visit [facility] [address] [place] [address] Bhargavi Morel, [facility] [address] [place] [address] documented as of this encounter Visit Diagnoses Diagnosis AMOR (obstructive sleep apnea)- Primary Obstructive sleep apnea (adult) (pediatric) Severe sleep apnea Permanent atrial fibrillation (HCC) Atrial fibrillation Essential (primary) hypertension Unspecified essential hypertension Restless legs syndrome (RLS) documented in this encounter Care Teams Supply Person Relationship Specialty Start Date End Date Jovita Bermudez MD [address] [place] [address] PCP - General Family Medicine 11/30/20 07/21/23 documented as of this encounter
--- OUTSIDE RECORDS SUMMARY | 2024-08-30 18:51 | XMS_ITS | Encounter Summary ---
Author Organization [facility] Address [address] [place] [address] Phone Care Team Providers Care Microstrategy Architect Name Role Phone Jovita Bermudez MD Primary Care Provider [phone] Reason for Referral * Consult, Test & Initiate Treatment (Less Than 3 Days) - Closed Specialty Diagnoses / Procedures Referred By Contac t Referred To Contact Diagnoses Disease of cardiovascular system Jovita Bermudez MD [address] [place] [address] Phone: tel: fax: Anderson Trejo MD [address] [address] Phone: tel: fax: Referral ID Status Reason Start Date Expiration Date Visits Re quested Visits Authorized [id number] Closed 12/15/2020 1 11 Scheduling Instructions Tressa is being referred to Dr. 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 See below for Tressa's current medications, allergies [...] Rfl: simvastatin (ZOCOR) 40 MG Tablet, Take 1 [...] Visit * Reason Onset Date Comments Referral 12/15/2020 Encounter Details Date Type Department Care Team (Late st Contact Info) Description 12/15/[address] [facility] [address] [place] [address] Jovita Bermudez MD [address] [place] [address] Referral Social History Tobacco Use Types Packs/Day [...] Telephone Encounter - Sherry Knight RN - 12/15/2020 11:57 AM CDT Received Cardiology Insurance Referral request from Dr. Grisel Trejo with [facility] for appointment Yesterday, 12/14/20, for office visit/hospital follow-up for diagnosis CAD (I25.10). PENDED Cardiology Referral to PCP. documented in this encounter Plan of Treatment Upcoming Encounters Date Type Department Care Team (Late st Contact Info) Description 10/29/2024 9:30 AM SYSTEMS SUPPORT ENGINEER Office Visit [facility] - Family Medicine - [place] [address] [place] [address] Bhargavi Morel PAC [address] [place] [address] documented as of this encounter Results * EXTERNAL CARDIOLOGY REFERRAL (12/14/2020) Jovita Bermudez MD OUTPT REFERRALS EXT/INT Fin al Result documented in this encounter Visit Diagnoses Diagnosis Disease of cardiovascular system- Primary Unspecified cardiovascular disease documented in this encounter Care Teams Microstrategy Architect Relationship Specialty Start Date End Date Jovita Bermudez MD [address] [place] [address] PCP - General Family Medicine 11/30/20 07/21/23 documented as of this encounter
--- OUTSIDE RECORDS SUMMARY | 2024-08-30 18:51 | XMS_ITS | Encounter Summary ---
Author Organization [facility] Address [address] [place] [address] Phone Care Team Providers Care Tutoring Clinician Name Role Phone Jovita Bermudez MD Primary Care Provider [phone] Encounter Details Date Type Department Care Team ([facility] Contact Info) Description 12/06/2020 Transcribe Orders [facility] [address] [place] [address] Jovita Bermudez MD [address] [place] [address] Daytime somnolence (Primary Dx) Social History Tobacco Use Types Packs/Day Years [...] Upcoming Encounters Date Type Department Care Team ([facility] Contact Info) Description 10/29/2024 9:30 AM ASSISTANT BASEBALL COACH Office Visit [facility] - Family Medicine - [place] [address] [place] [address] Bhargavi Morel PAC [address] [place] [address] documented as of this encounter Results * POLYSOMNOGRAPHY 4 OR MORE PARAMETERS (12/14/2020) Jovita Bermudez MD SLEEP CENTER ORDERABLES Fin al Result documented in this encounter Visit Diagnoses Diagnosis Daytime somnolence- Primary Hypersomnia, unspecified documented in this encounter Care Teams Tutoring Clinician Relationship Specialty Start Date End Date Jovita Bermudez MD [address] [place] [address] PCP - General Family Medicine 11/30/20 07/21/23 documented as of this encounter
--- OUTSIDE RECORDS SUMMARY | 2024-08-30 18:51 | XMS_ITS | Encounter Summary ---
Author Organization [facility] Address [address] [place] [address] Phone Care Team Providers Care Senior Ui Ux Developer Name Role Phone Jovita Bermudez MD Primary Care Provider [phone] Reason for Visit * Reason Comments Sleep Apnea 3 mo f/u Encounter Details Date Type Department Care Team ([facility] st Contact Info) Description 04/04/2021 2:15 PM CDT Office Visit [facility] - Pulmonology & Sleep Medicine [facility] [address] [place] [phone] Flaquito Hurd MD [address] [place] [address] AMOR (obstructive sleep apnea) (Primary Dx); Restless legs syndrome (RLS); Essential (primary) hypertension Discharge Disposition: Discharged to [...] Sign Reading Time Taken Comments Blood Pressure 102/68 04/04/2021 2:06 PM CDT Pulse 70 04/04/2021 2:06 PM CDT Temperature 36.4 ??C (97.6 ??F) 04/04/2021 2:06 PM CD T Respiratory Rate 18 04/04/2021 2:06 PM CDT Oxygen Saturation 95% 04/04/2021 2:06 PM CDT Inhaled Oxygen Concentration - - Weight 98 kg (216 lb 1.6 oz) 04/04/2021 2:06 PM CDT Height 165.1 cm (5' 5 ) 04/04/2021 2:06 PM CDT Body Mass Index 35.96 04/04/2021 2:06 PM CDT documented in this encounter Progress Notes * Flaquito Hurd MD - 04/04/2021 2:15 PM CDT Images from the original note were not included. Progress Note Subjective: HPI: Tressa Myers is a 66 y.o. female with following problems came for a follow-up Reviewed SD card data she using CPAP more than 4 hours 50% time CPAP is set at 14 cm for Overall AHI 3.7 Less EDS .Patient sleep study done on December 13, 2020 that showed Severe obstructive sleep apnea with apnea-hypopnea index of 48 lowest O2 sat was 67% She required CPAP pressure of 14 cm water She also had periodic leg movements +COVID shot Has FFM requip caused nausea ?? Problem List: Patient Active Problem List Diagnosis Date Noted ??? Acute pain of right knee 03/17/2021 [...] Type Start Date End Date Comment Verified Verify Rep Cefazolin Allergy 30-Nov-2020 Severity: Medium Reactions: Rash, [...] 0 ??? celecoxib (CeleBREX) 200 MG Capsule Take 1 Capsule by mouth daily. 30 Capsule 0 ??? clobetasol (TEMOVATE) 0.05 % Gel APPLY TO NEW LESIONS ON ARMS COVER WITH TAPE THEN WASH OFF IN THE MORNING. REPEAT PROCESS UNTIL LESIONS ARE FLAT THEN USE TWICE A WEEK MA ??? furosemide (LASIX) 40 MG Tablet Take 1 [...] WEEK ??? PARoxetine (PAXIL) 40 MG Tablet Take 1 Tablet by mouth daily. 90 Tablet 0 ??? simvastatin (ZOCOR) 40 MG Tablet Take 1 tablet by mouth once daily 90 Tablet 1 ??? SITagliptin (JANUVIA) 100 MG Tablet Take 1 Tablet by mouth daily. 90 Tablet 1 ??? traMADol (ULTRAM) 50 MG Tablet Take 1 Tablet by mouth every 6 hours as needed for Moderate or more severe pain. 28 Tablet 0 ??? warfarin (COUMADIN) 2 [...] Other (see Comments) Objective: Vitals: Blood pressure 102/68, pulse 70, temperature 97.6 ??F (36.4 ??C), resp. rate 18, height 5' 5 (1.651 m), weight 216 lb 1.6 oz (98 kg), SpO2 95 %. Gen/Constitutional: Obese no distress HEENT: Normocephalic, atraumatic. PERRLA, No oropharyngeal [...] G47.33 2. Restless legs syndrome (RLS) G25.81 3. Essential (primary) hypertension I10 Plan: Continue CPAP Discussed sleep hygiene Continue antihypertensives Continue Ultram Trial of Gabapentin for RLS Return in about 6 months (around 10/05/2021). Documentation for this visit on April 04 was completed using a template. I have seen and examinedthe patient. Everything documented was personally performed at this visit with the necessary additions, deletions and changes made as appropriate. Flaquito Hurd MD 04/04/2021 2:19 PM CDT documented in this encounter Plan of Treatment Upcoming Encounters Date Type Department Care Team (Late st Contact Info) Description 10/29/2024 9:30 AM ACROBATIC DANCER Office Visit [facility] [address] [place] [address] Bhargavi Morel PAC [address] [place] [address] documented as of this encounter Visit Diagnoses Diagnosis AMOR (obstructive sleep apnea)- Primary Obstructive sleep apnea (adult) (pediatric) Restless legs syndrome (RLS) Essential (primary) hypertension Unspecified essential hypertension documented in this encounter Care Teams Senior Ui Ux Developer Relationship Specialty Start Date End Date Jovita Bermudez MD [address] [place] [address] PCP - General Family Medicine 11/30/20 07/21/23 documented as of this encounter
--- OUTSIDE RECORDS SUMMARY | 2024-08-30 18:51 | XMS_ITS | Encounter Summary ---
Author Organization [facility] Address [address] [place] [address] Phone Care Team Providers Care Dialysis Rn Name Role Phone Jovita Bermudez MD Primary Care Provider [phone] Reason for Visit * Reason Onset Date Comments Referral 12/22/2020 referral clarifi cation/ Medication management Paxil Encounter Details Date Type Department Care Team (Late st Contact Info) Description 12/22/2020 Telephone [facility] [address] [place] [address] Jovita Bermudez MD [address] [place] [address] Referral (referral clarification/ Medication management Paxil) Social History Tobacco Use Types Packs/Day Years [...] encounter Miscellaneous Notes * Telephone Encounter - Knight, Sherry J, RN - 12/24/2020 11:20 AM CDT The patient was notified PCP said yes take Paxil 20 mg daily for 4 weeks and then if she feels an increase is needed to call and PCP will increase at that time. The patient voiced understanding and said alright. * Telephone Encounter - Jovita Bermudez MD - 12/24/2020 10:35 AM CDT Yes 20 mg for 4 weeks and then increase if needed * Telephone Encounter - Sherry Knight RN - 12/23/2020 5:05 PM CDT The patient was notified PCP said she could see Dr. Hurd or Dr. Jesus, both can treat her sleep apnea. The patient voiced understanding. The patient states PCP discontinued her Buspar and started her back on Paxil. The patient said she used to take Paxil 40 mg daily but PCP sent Rx to the pharmacy for Paxil 20 mg daily on 12/21/20. The patient is asking if PCP wants her to start on Paxil 20 mg daily then move up the dose after a certain time period? * Telephone Encounter - Jovita Bermudez MD - 12/23/2020 11:19 AM CDT She can see Dr. Hurd or Dr. Jesus, both can treat her sleep apnea * Telephone Encounter - Kate Olivas RN - 12/22/2020 3:46 PM CDT S: Patient calling to clarify her referral regarding sleep study B: Has phone visit with Dr Hurd for 12/28/20 but was getting calls also from Dr Jesus's office (neurology) and wasn't sure if she needed both. A: Noted on 11/30/20, referral to neurology for daytime somnolence. They have been calling her but she wasn't sure why she was referred to them and pulmonology/sleep medicine. R: Please advise--does provider still recommend both referrals? Or proceed with sleep medicine referral only at this point. Per 12/20 telephone note, patient was advised regarding her Paxil and had additional questions--she was asking for provider's response. Sherry Knight RN ?? 3:39 PM Note Patient was notified PCP said sleep study showed severe sleep apnea and referral to Dr. Hurd ordered. Patient voiced understanding and said that was fine. The patient was notified PCP said to DC Buspar and OK to restart Paxil 20 mg qd. (Rx sent to pharmacy). The patient said she used to take Paxil 20 mg 2 tablets 40 mg daily. The patient is asking if PCP wants to start the 20 mg daily and maybe move up to 40 mg daily after a certain time period? Please advise regarding dosing of Paxil? documented in this encounter Plan of Treatment Upcoming Encounters Date Type Department Care Team (Late st Contact Info) Description 10/29/2024 9:30 AM BALL POINT SPLITTER Office Visit [facility] - Family Medicine [facility] [address] [place] [address] Bhargavi Morel, ARAM [address] [place] [address] documented as of this encounter Visit Diagnoses Not on filedocumented in this encounter Care Teams Dialysis Rn Relationship Specialty Start Date End Date Jovita Bermudez MD [address] [place] [address] PCP - General Family Medicine 11/30/20 07/21/23 documented as of this encounter
--- OUTSIDE RECORDS SUMMARY | 2024-08-30 18:51 | XMS_ITS | Encounter Summary ---
Author Organization [facility] Address [address] [place] [address] Phone Care Team Providers Care Mortgage Manager Name Role Phone Jovita Bermudez MD Primary Care Provider [phone] Reason for Visit * Reason Onset Date Comments Results 03/18/2021 Encounter Details Date Type Department Care Team (Late Contact Info) Description 03/18/2021 Telephone [facility] [place] [address] Bhargavi Morel, ARAM [address] [place] [address] Results Social History Tobacco Use Types Packs/Day [...] Telephone Encounter - Sherry Knight RN - 03/18/2021 10:16 AM CDT The patient was notified Bhargavi Morel reviewed her lab result and said her potassium is now normal. The patient voiced understanding and said alright. * Telephone Encounter - Sherry Knight RN - 03/18/2021 10:16 AM CDT ----- Message from Bhargavi Morel, PAC sent at 03/18/2021 8:11 AM CDT ----- Potassium now normal documented in this encounter Plan of Treatment Upcoming Encounters Date Type Department Care Team (Late st Contact Info) Description 10/29/2024 9:30 AM POWER PLANT OPERATIONS MANAGER Office Visit [facility] [address] [place] [address] Bhargavi Morel, PAC [address] [place] [address] documented as of this encounter Visit Diagnoses Not on filedocumented in this encounter Care Teams Mortgage Manager Relationship Specialty Start Date End Date Jovita Bermudez MD [address] [facility] [place] [address] PCP - General Family Medicine 11/30/20 07/21/23 documented as of this encounter
--- OUTSIDE RECORDS SUMMARY | 2024-08-30 18:51 | XMS_ITS | Encounter Summary ---
Author Organization [facility] Address [address] [place] [address] Phone Care Team Providers Care Barn Hand Name Role Phone Jovita Bermudez MD Primary Care Provider [phone] Reason for Referral * Radiology Services (STAT with Interpretation) - Closed Specialty Diagnoses / Procedures Referred By Contac t Referred To Contact Radiology Diagnoses Localized edema Procedures US RIGHT DUPLEX LOWER EXTREMITY VEINS Harry Howell MD Phone: tel: fax: Referral ID Status Reason Start Date Expiration Date Visits Re quested Visits Authorized [id number] Closed 03/17/2021 1 1 * Radiology Services (Routine) - Closed Specialty Diagnoses / Procedures Referred By Contac t Referred To Contact Radiology Diagnoses Acute pain of right knee Pain and swelling of right knee Procedures XR KNEE 1 OR 2 VIEWS RIGHT Harry Howell MD Phone: tel: fax: Referral ID Status Reason Start Date Expiration Date Visits Re quested Visits Authorized [id number] Closed 03/17/2021 1 1 Reason for Visit * Reason Comments Knee Pain patient is here for right knee pain Encounter Details Date Type Department Care Team (Late st Contact Info) Description 03/17/2021 1:15 PM CDT [facility] [place] [address] [place] [address] Harry Howell MD [address] [place] [address] Acute pain of right knee (Primary Dx); Pain and swelling of right knee; Localized edema Discharge Disposition: Discharged to home or Selfcare [...] Sign Reading Time Taken Comments Blood Pressure 124/70 03/17/2021 1:09 PM CDT Pulse 75 03/17/2021 1:09 PM CDT Temperature 36.9 ??C (98.4 ??F) 03/17/2021 1:09 PM CD T Respiratory Rate 16 03/17/2021 1:09 PM CDT Oxygen Saturation 96% 03/17/2021 1:09 PM CDT Inhaled Oxygen Concentration - - Weight 98.4 kg (216 lb 14.4 oz) 03/17/2021 1:09 PM CDT Height 165.1 cm (5' 5 ) 03/17/2021 1:09 PM CDT Body Mass Index 36.09 03/17/2021 1:09 PM CDT documented in this encounter Progress Notes * Maddie Siegel CMA - 03/17/2021 1:15 PM CDT Tressa Reed Myers is a 66 y.o. female with current BMI: Body mass index is 36.09 kg/m??. Interventions discussed including: encourage daily physical activity and well- balanced diet. * Maddie Siegel CMA - 03/17/2021 1:15 PM CDT Tressa Myers, 66 y.o., female is here for Knee Pain (patient is here for right knee pain) Medication Refills: Patient reports/denies need for medication [...] mouth daily. 01/19/21 Yes Jovita Bermudez MD Glucose Blood Strip Diagnosis: Diabetes type [...] mouth daily. 01/19/21 Yes Jovita Bermudez MD warfarin (COUMADIN) 2 [...] have been addressed with the patient today: BMI, TDAP, Pneumonia, Colonoscopy, Mammogram and Advanced Care Planning * Harry Howell MD - 03/17/2021 1:15 PM CDT Subjective: Chief Complaint Patient presents with ??? Knee Pain patient is here for right knee pain History of Present Illness: Tressa Myers is a 66 y.o. female who is her today for right knee pain. She also had similar kindof pain in 10/2020. She went to senior oracle pl sql developer and he felt that it might be related to arthritis. Herpain has been worsening. She is not able to walk and has stiffness. She has throbbing pain back in her knee cap and radiates down to her legs. She is taking Tylenol but without any benefit. Patient's medications, allergies, past medical, surgical, social and family histories were reviewedand updated as appropriate. Review of Systems: GENERAL: Denies fevers, chills, unintentional weight loss or gain, and fatigue. LUNGS: Denies cough, shortness of breath, and wheezing. HEART: Denies chest pain and palpitations. MSK: Reports right knee pain. Objective: BP 124/70 Pulse 75 Temp 98.4 ??F (36.9 ??C) (Temporal) Resp 16 Ht 5' 5 Wt 216 lb 14.4 oz SpO2 96% BMI 36.09 kg/m?? Physical Exam: GENERAL: well-developed, well-nourished, and no acute distress. NECK: supple, no thyromegaly, and no cervical LAD. EXTREMITIES:peripheral pulses intact. MUSCULOSKELETAL: her right knee is evaluated and is swollen about three times its normal size and very tight. She does have pain in the posterior aspect of her right knee as well as into the right calf. She does have pain with Kumar's maneuver but also has some tenderness and edema to the anterior lower extremity. NEUROLOGIC: Patient has a very antalgic gait is having difficulty walking at this time due to the pain. Past labs, radiology, and medical records reviewed with patient/caregiver. All questions answered. Assessment/Plan: Tressa was seen today for knee pain. Diagnoses and all orders for this visit: Acute pain of right knee Comments: questions bakers cyst. Orders: - XR KNEE 1 OR 2 VIEWS RIGHT; Future - Cancel: US RIGHT DUPLEX LOWER EXTREMITY VEINS; Future Pain and swelling of right knee - XR KNEE 1 OR 2 VIEWS RIGHT; Future - Cancel: US RIGHT DUPLEX LOWER EXTREMITY VEINS; Future Localized edema - Cancel: US RIGHT DUPLEX LOWER EXTREMITY VEINS; Future - US RIGHT DUPLEX LOWER EXTREMITY VEINS; Future Other orders - traMADol (ULTRAM) 50 MG Tablet; Take 1 Tablet by mouth every 6 hours as needed for Moderate or more severe pain. Plan: Patient is going to be sent for stat Venous Doppler today to rule out blood clot versus Jeffery's cyst. Also, going to place her on some tramadol to see if this will help with her pain while we figure out exactly what is going on. Patient is to continue on her blood thinners and continue to monitor this as well as keep her knee elevated. Follow up: No follow-ups on file. Patient given verbal and/or written education. She indicated understanding and agreed to the treatment plan. She will call the office or seek immediate medical attention if present symptoms worsen ornew ones develop. Patient gave verbal consent to use virtual scribe/insole doubler service, Sabrina, understanding ourvisit was being recorded for purposes of improving efficiency of documentation and enhancing clinicexperience for patients. Transcribed by Sabrina at 2:20 PM on 03/17/2021. documented in this encounter Plan of Treatment Upcoming Encounters Date Type Department Care Team (Late st Contact Info) Description 10/29/2024 9:30 AM LITIGATION ASSOCIATE [facility] [address] [place] [address] Bhargavi Morel, PAC [address] [place] [address] Scheduled Orders Name Type Priority Associated Diagnoses Orde r Schedule XR KNEE 1 OR 2 VIEWS RIGHT Imaging Routine Acute pain of right knee Pain and swelling of right knee Expected: 03/16/2022, Expires: 09/16/2022 documented as of this encounter Results * [...] PM T: ??03/17/2021 2:20 PM Report ID: [id number] Reading Location: ??[id number] Procedure Note Nathan Jerez MD - 03/17/2021 [...] Electronically signed by Nathan Jerez M.D. LB: LB Report ID: [id number] Reading Location: [id number] IMPRESSION: 1. No right lower extremity deep venous thrombosis. Harry Howell MD IMG US ORDERABLES Final Result documented in this encounter Visit Diagnoses Diagnosis Acute pain of right knee- Primary Pain and swelling of right knee Localized edema Edema Localized edema Edema documented in this encounter Care Teams Barn Hand Relationship Specialty Start Date End Date Jovita Bermudez MD [address] [place] [address] PCP - General Family Medicine 11/30/20 07/21/23 documented as of this encounter
--- OUTSIDE RECORDS SUMMARY | 2024-08-30 18:52 | XMS_ITS | Encounter Summary ---
Author Organization [facility] Address [address] [place] [address] Phone Care Team Providers Care Goldsmith Apprentice Name Role Phone Unavailable Primary Care Provider Unavailabl e Reason for Referral * Radiology Services (Routine) - Closed Specialty Diagnoses / Procedures Referred By Contac t Referred To Contact Radiology Diagnoses Encounter for screening mammogram for malignant neoplasm of breast Procedures ZUNILDA SCREENING BILATERAL DIGITAL W CAD Robbie Haywood MD [address] [place] [address] Phone: tel: fax: Referral ID Status Reason Start Date Expiration Date Visits Re quested Visits Authorized [id number] Closed 06/14/2020 1 1 Encounter Details Date Type Department Care Team (Late st Contact Info) Description 06/14/2020 Transcribe Orders [facility] Central Scheduling [address] [place] [address] Robbie Haywood MD [address] [place] [address] Encounter for screening mammogram for malignant neoplasm of breast (Primary Dx) Social History Tobacco Use Types Packs/Day Years Used Date Smoking Tobacco: Never Assessed Comments Unknown Sex and Gender Information Value Date Recorded Sex Assigned at Female 04/09/2023 4:28 PM CDT Legal Sex Female 7:50 PM CDT Gender Identity Female 04/09/2023 4:28 PM CDT Sexual Orientation Not on file documented as of this encounter Plan of Treatment Upcoming Encounters Date Type Department Care Team (Late st Contact Info) Description 10/29/2024 9:30 AM SUPERINTENDENT OVERHEAD DISTRIBUTION Office Visit [facility] [address] [place] [address] Bhargavi Morel, PAC [address] [place] [address] Scheduled Orders Name Type Priority Associated Diagnoses Orde r Schedule ZUNILDA SCREENING BILATERAL DIGITAL W CAD Imaging Routine Encounter for screening mammogram for malignant neoplasm of breast Expected: 06/14/2020, Expires: 06/14/2021 documented as of this encounter Visit Diagnoses Diagnosis Encounter for screening mammogram for malignant neoplasm of breast- Primary Other screening mammogram documented in this encounter
--- OUTSIDE RECORDS SUMMARY | 2024-08-30 18:52 | XMS_ITS | Encounter Summary ---
Author Organization [facility] [employer] Care Team Providers Care Turntable Man Name Role Phone Unavailable Primary Care Provider Unavailabl e Encounter Details Date Type Department Care Team (Latest Contact Info) Description 11/29/2020 Travel Social History Tobacco Use Types Packs/Day [...] st Contact Info) Description 10/29/2024 9:30 AM FREELANCE COPYWRITER Office Visit [facility] Medical [facility] - [facility] [address] [place] [address] Bhargavi Morel, PAC [address] [place] [address] documented as of this encounter Visit Diagnoses Not on filedocumented in this encounter
--- OUTSIDE RECORDS SUMMARY | 2024-08-30 18:52 | XMS_ITS | Encounter Summary ---
Author Organization [facility] Address [address] [place] [address] Phone Care Team Providers Care Capability Lead Name Role Phone Jovita Bermudez MD Primary Care Provider [phone] Reason for Visit * Reason Onset Date Comments New Patient 11/29/2020 [email or web address] Encounter Details Date Type Department Care Team (Late st Contact Info) Description 11/29/2020 Telephone [facility] [address] [place] [address] Provider, None [place] New Patient ([email or web address]) Social History Tobacco Use Types Packs/Day Years [...] encounter Miscellaneous Notes * Telephone Encounter - Sekou Serrano - 11/29/2020 11:03 AM CDT [email or web address] * Telephone Encounter - Sekou Serrano - 11/29/2020 11:03 AM CDT ----- Message from Beth Jasmine sent at 11/29/2020 8:37 AM CDT ----- Regarding: New Patient New [facility] Primary Provider Request Name of person calling: Tressa Myers Relationship to patient: self Preferred phone number: [phone] Alternate phone number: na Region / Office location preference: [place] Provider preference (male/female, specific provider name): Dr. Hussein Willing to see someone other than physician, such as RIGGING WORKER, PA, resident? yes Patient reason for appointment/any current symptoms: hosp follow up from [facility] Other information (including need for piece worker): na Route ALL calls to: [facility] PATIENT CUSTOMER SOLUTIONS ARCHITECT documented in this encounter Plan of Treatment Upcoming Encounters Date Type Department Care Team (Late st Contact Info) Description 10/29/2024 9:30 AM COMPLETION ENGINEER Office Visit [facility] [place] [address] [place] [address] Bhargavi Morel PAC [address] [place] [address] documented as of this encounter Visit Diagnoses Not on filedocumented in this encounter Care Teams Capability Lead Relationship Specialty Start Date End Date Jovita Bermudez MD [address] [place] [address] PCP - General Family Medicine 11/30/20 07/21/23 documented as of this encounter
--- OUTSIDE RECORDS SUMMARY | 2024-08-30 18:55 | XMS_ITS | Encounter Summary ---
Author Organization [facility] Healthcare Address [address] [place] [address] Care Team Providers Care Expanded Duty Dental Assistant Name Role Phone Zan Lee MD Unavailable [phone] Jovita Bermudez MD Primary Care Provider [phone] Encounter Details Date Type Department Care Team (Late st Contact Info) Description 04/25/2024 Telephone [facility] Medical Group Cardiology [address] [place] [address] Lovely Nuñez NP [address] [place] [address] Social History Tobacco Use Types Packs/Day Years Used Date Smoking Tobacco: Former Cigarettes Smokeless Tobacco: Never Comments:history of 2ppd for 30yrs prior to cutting back. Alcohol Use Standard Drinks/Week Comments Not Currently 0 (1 standard drink = 0.6 oz pur e alcohol) occasionally. 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 TAKE ONE AND ONE-HALF TABLETS BY MOUTH ON SUNDAY, SUNDAY, AND SUNDAY. 90 tablet 04/25/2024 documented in this encounter Miscellaneous Notes * Telephone Encounter - Leeann Urbina MA - 04/25/2024 2:15 PM CDT Refill sent to the pharmacy. Patient notified. * Telephone Encounter - Jenn Real - 04/25/2024 9:37 AM CDT Pt requesting refill for warfarin (COUMADIN) 2 mg tablet with 90 day supply be sent to [facility]. PT states she went to picker tender refill for medication although pharmacy would not allow refill until our office updates instructions. Pt states her current instructions call for TAKE 2 TABLETS BY MOUTH ON SUNDAY, SUNDAY, SUNDAY, AND . Although her instructions should also include to take 1 1/2 tablet Sunday, Sunday and Sunday on the days she isnt taking 2 tablets. Pt requesting a call back once this adjustment has been made and refill has been sent. Thank you! Contact:[phone] documented in this encounter Plan of Treatment Not on file documented as of this encounter Visit Diagnoses Not on filedocumented in this encounter Discontinued Medications Medication Sig Discontinue Reason Start Date End Da te warfarin (COUMADIN) 2 mg tablet TAKE 2 TABLETS BY MOUTH ON SUNDAY, SUNDAY, SUNDAY, AND Reorder 04/22/2024 04/25/2024 documented as of this encounter Care Teams Expanded Duty Dental Assistant Relationship Specialty Start Date End Date Jovita Bermudez MD PCP - General Family Medicine 12/14/20 Zan Lee MD Surgeon Neurosurgery 01/02/19 documented as of this encounter
--- OUTSIDE RECORDS SUMMARY | 2024-08-30 18:55 | XMS_ITS | Clinical Summary ---
Author Organization [facility] Address [address] [place] [address] Care Team Providers Care Manager Financial Planning Name Role Phone Zan Lee MD Unavailable [phone] Jovita Bermudez MD Primary Care Provider [phone] Allergies Active Allergy Reactions Criticality Noted Date Comments Cefazolin Rash,Wheezing Medium Lisinopril Cough Low 05/29/2019 Medications aspirin 81 mg enteric coated tablet Take 1 tablet (81 mg total) by mouth nightly Active levothyroxine (SYNTHROID, LEVOTHROID) 75 mcg tablet Take 1 tablet (75 mcg total) by mouth machine cell tuber before breakfast 3 019 Active metFORMIN (GLUCOPHAGE) 1,000 mg tablet Take 1 tablet (1,000 mg total) by mouth 2 (two) times a day with meals 3 019 Active SITagliptin (JANUVIA) 100 mg tablet Take 1 tablet (100 mg total) by mouth nightly Active ascorbic acid (VITAMIN C) 500 mg tablet,chewable Take 1 tablet/chew tab (500 mg total) by mouth nightly Active cholecalciferol , vitamin D3, (VITAMIN D3 ORAL) Take by mouth Active traMADoL (ULTRAM) 50 mg tablet 021 Active PARoxetine (PAXIL) 40 mg tablet Take 0.5 tablets (20 mg total) by mouth every morning 022 Active gabapentin (NEURONTIN) 600 mg tablet 023 Active Ozempic 0.25 mg or 0.5 mg (2 mg/3 mL) pen injector injection INJECT 0.25 MG SUBCUTANEOUSLY ONCE WEEKLY Active Jardiance 25 mg tablet Take 1 tablet (25 mg total) by mouth daily Active glipiZIDE (GLUCOTROL) 5 mg tablet TAKE 1/2 TABLET BY MOUTH DAILY, AFTER BREAKFAST Active levoFLOXacin (LEVAQUIN) 500 mg tablet Take 1 tablet (500 mg total) by mouth daily Active docusate sodium (COLACE) 100 mg capsule TAKE 1 CAPSULE BY MOUTH EVERY 12 HOURS NEEDED FOR CONSTIPATION Active magnesium aspart,citrate, oxide 400 mg magnesium capsule Take by mouth Active dilTIAZem CD/XR/XT (CARDIZEM CD,DILACOR XR) 120 mg 24 hr capsuleIndicati ons:Typical atrial flutter (CMS/HCC) (HCC) Take 1 capsule (120 mg total) by mouth daily 90 capsule 3 024 2024 Active furosemide (LASIX) 40 mg tabletIndicatio ns:Chronic HFrEF (heart failure with reduced ejection fraction) (CMS/HCC) (HCC) Take 1 tablet (40 mg total) by mouth daily 90 tablet 3 Active metoprolol XL (TOPROL-XL) 100 mg 24 hr tabletIndicatio ns:Persistent atrial fibrillation (HCC) Take 2 tablets (200 mg total) by mouth daily 180 tablet 3 Active losartan (COZAAR) 25 mg tabletIndicatio ns:Cardiomyopat hy, unspecified type (HCC) Take 1 tablet (25 mg total) by mouth daily 90 tablet 3 Active warfarin (COUMADIN) 2 mg tablet TAKE 2 TABLETS BY MOUTH ON SUNDAY, SUNDAY, SUNDAY, AND SUNDAY, AND 1.5 TABLETS ON SUNDAY, SUNDAY, AND SUNDAY 90 tablet Active simvastatin (ZOCOR) 40 mg tablet TAKE 1 TABLET(40 MG) BY MOUTH EVERY NIGHT 90 tablet 3 Active simvastatin (ZOCOR) 40 mg tablet Take 1 tablet (40 mg total) by mouth nightly 90 tablet 3 024 2023 Discontinued Active Problems Problem Noted Date Diagnosed Date Morbid (severe) obesity due to excess calories 0 09/06/2022 AMOR (obstructive sleep apnea) 02/17/2021 Mixed diabetic hyperlipidemi a associated with type 2 diabetes mellitus ([facility]) 12/14/2020 Chronic anticoagulation 12/14/2020 Thrombus of left atrial appendage 12/14/2020 Persistent atrial fibrillation 12/14/2020 Chronic HFrEF (heart failure with reduced ejection fraction) ([facility]) 12/14/2020 Cardiomyopathy 09/24/2020 Bilateral carotid artery occlusion 05/05/2019 Overview (05/05/2019): Added automatically from request for surgery [id number] 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 ([facility]) 05/05/2019 Overview (05/05/2019): Added automatically from request for surgery [id number] CVA (cerebral vascular accident) 12/31/2018 Carotid atherosclerosis 12/31/2018 Abnormal CXR 12/31/2018 Hypertension associated with diabetes 12/31/2018 Type 2 diabetes mellitus wit h circulatory disorder, without long-term current use of insulin 12/31/2018 Acute cystitis without hematuria 12/31/2018 Paroxysmal atrial flutter ([facility]) 12/31/2018 Coronary artery disease invo lving squaxin coronary artery of squaxin heart without angina pectoris 12/31/2018 History of coronary artery stent placement 12/31 Hx of CABG 12/31/2018 Tobacco abuse 12/31/2018 Encounters Date Type Department Care Team Description 08/25/2024 Anticoagulation Visit [facility] Cardiology [address] [place] [id number] Raudel Gonzalez RN 06/27/2024 Anticoagulation Visit [facility] Cardiology [address] [place] [phone] Ilene Hicks, JUSTICE from Last 3 Months Surgical History Surgery Date Site/Laterality Comments CA LIG/TRNSXJ FLP TUBE ABDL/ VAG APPR UNI/BI Tubal Ligation - (Added by TW Conv) CA PRQ TRLUML CORONARY STENT W/ANGIO ONE ART/BRNCH Cath Stent Placement - Xience TOM to LCX (04/2013) (Added by TW Conv) CORONARY ARTERY BYPASS GRAFT CAROTID STENT Left TUBAL LIGATION Medical History Medical History Date Comments History of other diseases of the circulatory system, not elsewhere classified Coronary Artery Disease - Wa s having SOB outpatient. Had stress echo/EKG outpatient 05/07/13, 1.[address] segment depression noted inferiorly and [address] segment depression noted laterally; EF 60-65%, hypokinesis of the distal septum, probably diastolic dysfunction. [facility] (05/07/13) (1) Diffuse 25% narrowings from proximal to distal RCA (2) R large PDA with 50% near ostial narrowing, (3) * Personal history of other di seases of the circulatory system History of hypertension - (A dded by TW Conv) Personal history of other di seases of the digestive system History of esophageal reflux - (Added by TW Conv) Personal history of other me ntal and behavioral disorders History of anxiety disorder - (Added by TW Conv) Diabetes mellitus (HCC) Carotid atherosclerosis Stroke (HCC) Paroxysmal atrial flutter (C MS/HCC) (HCC) Hypertension Hyperlipidemia COPD (chronic obstructive pu lmonary disease) (HCC) Diaphragm paralysis GERD (gastroesophageal reflux disease) Type 2 diabetes mellitus (HCC) Hypothyroidism Anxiety Atrial fibrillation (CMS/HCC) (HCC) 09/07/2020 Cardiomyopathy (HCC) 09/07/2020 Heart failure (HCC) Cardiac rhythm disturbance Obesity Wears dentures Heart failure (HCC) Heart failure (HCC) AMOR (obstructive sleep apnea) 02/17/2021 Family History Medical History Relation Name Comments COVID-19 Brother CAUSE OF CARDIAC ARREST Mother CAUSE OF DEAT H Coronary artery disease Mother Fami ly history of coronary artery disease - Premature CAD (Added by TW Conv) Heart disease Mother Coronary artery disease Other Fami ly history of coronary artery disease - Premature CAD (Added by TW Conv) Relation Name Status Comments Brother (Age 69) Father (Age 64) Mother (Age 42) Other Social History Tobacco Use Types Packs/Day Years Used Date Smoking Tobacco: Former Cigarettes Smokeless Tobacco: Never Tobacco Cessation:Counseling Given: Not Answered Comments:history of 2ppd for 30yrs prior to cutting back. Alcohol Use Standard Drinks/Week Comments Not Currently 0 (1 standard drink = 0.6 oz pur e alcohol) occasionally. 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 Gender Identity Not on file Sexual Orientation Not on file Obstetrics History Last Filed Vital Signs Vital Sign Reading Time Taken Comments Blood Pressure 122/80 02/27/2024 8:49 AM CDT Pulse 115 02/27/2024 8:49 AM CDT Temperature 36.6 ??C (97.9 ??F) 06/04/2019 7:50 AM CD T Respiratory Rate 16 11/14/2022 9:03 AM CDT Oxygen Saturation 92% 02/27/2024 8:49 AM CDT Inhaled Oxygen Concentration - - Weight 97.5 kg (215 lb) 02/27/2024 8:49 AM CDT Height 165.1 cm (5' 5 ) 02/27/2024 8:49 AM CDT Body Mass Index 35.78 02/27/2024 8:49 AM CDT Plan of Treatment Health Maintenance Due Date Last Done Comments Albumin Creatinine Ratio, Urine 1955 Breast Cancer Screening-Mammogram 1955 Colon Cancer Screening-Colonoscopy 1955 Fall Risk Assessment 1955 Hepatitis C Screening 1955 Osteoporosis Screening-Bone Density Scan 1955 Dilated Eye Exam 1955 Foot Exam 1955 Hepatitis B Screening 1973 Zoster Vaccine (1 of 2) 2005 Hemoglobin A1C 11/28/2019 05/29/2019, 12/31/2018 Depression Screening 01/01/2020 12/31/2018 Well Visit 65+ 01/09/2020 eGFR 06/04/2020 06/04/2019, 03/2019, 05/29/2019, Additional history exists Pneumococcal vaccine 65+ (3 of 3 - PPSV23 or PCV20) 05/04/2022 05/04/2021, 06/19/2014 Lipid Panel 03/27/2024 03/27/2023, 0703/2022, 02/23/2021, Additional history exists Covid-19 Vaccine (2 - 2023-2 5 season) 2024 10/29/2020 Influenza Vaccine (#1) 2024 2, 05/04/2021, 08/07/2016 DTaP/Tdap/Td Vaccine (2 - Td or Tdap) 03/06/2026 03/06/2016 Medical Devices Implanted Type Area Facilities Administrator Device Identifier Shelf Expiration Date Model / Serial / Lot Stent Stent Heart [employer] [id number] Acculink Od10 Mm L40 Mm L132 Cm Self Expandable; Rapid Exchange; - [id number] - [id number] Implanted:Qty: 1 on 01/01/2019 by Zan Lee MD at [facility] Stent [employer] Vascular 10/25/2019 [id number] 0 / [id number] / [employer] [id number] Angio-Seal Vip Bondek-Plus 6fr .035in 70cm Hemostatic Latex Free - [id number] Implanted:Qty: 1 on 01/01/2019 by Zan Lee MD at [facility] [employer] 07/26/2019 [id number] / / [id number] Procedures Procedure Name Priority Date/Time Associated Diagnosis Comments PROTIME-INR Routine 08/22/2024 PROTIME-INR Routine 06/26/2024 POCT LIPID PANEL Routine 03/27/2023 2:56 PM CDT Lipid screening EGFR Routine 06/04/2019 3:08 AM CDT HEMOGLOBIN A1C Routine 05/29/2019 2:34 PM CDT Preop testing from Last 3 Months or Most Recently Relevant to Health Maintenance Results * (ABNORMAL) Protime-INR (08/22/2024) INR 7.20(A) 0.90 - 1.10 EXTERNAL LAB Blood us Historical Provider LAB BLOOD ORDERABLES Jennifer doran Result EXTERNAL LAB * (ABNORMAL) Protime-INR (06/26/2024) INR 2.50(A) 0.90 - 1.10 EXTERNAL LAB Blood Historical Provider MD LAB BLOOD ORDERABLES Jennifer doran Result EXTERNAL LAB * POCT lipid panel (03/27/2023 2:56 PM CDT) Cholesterol, POC 99 mg/dL HDL, POC 26 mg/dL Triglycerides, POC 105 mg/dL LDL Cholesterol POC 54 mg/dL Chol/HDL Ratio, POC - Non-HDL Cholesterol, POC - mg/dL Cholesterol Total, POC 99 mg/dL Capillary blood 03/27/2023 2 :56 PM CDT Lovely Nuñez NP POINT OF CARE TEST ORDERA BLES Final Result * eGFR (06/04/2019 3:08 AM CDT) eGFR 111 mL/min/1.7 3 m2 ESTHELA MAGALLON Comment: Interpretive Data Reference Interval Normal ?>/= 90 mL/min/1.73m2 Mildly decreased* ? 60 - 89 mL/min/1.73m2 Mildly to moderately decreased ?45 - 59 mL/min/1.73m2 Moderately to severely decreased ??30 - 44 mL/min/1.73m2 Severely decreased ?15 - 29 mL/min/1.73m2 Kidney Failure ?< 15 ??mL/min/1.73m2 *Relative to young adult level If -Indian multiply value by 1.16. Estimated glomerular filtration rate is determined by the CKD-EPI equation recommended by the National Kidney Foundation (KDIGO 2012 Clinical Practice Guideline for the Evaluation and Management of Chronic Kidney Disease. Kidney Intnl Suppl Aug 2012;3:1). The CKD-EPI equation should not be used for patients with unstable renal function and has not been validated in children and those over 70. Current interpretive data was last reviewed 2016. Blood specimen (specimen) 06/04/2019 3:08 AM CDT 06/04/2019 3:15 AM CDT Do Bernstein NP LAB BLOOD ORDERABLES Fin al Result Performing Organization Address [facility] de Phone Number ESTHELA [address] [place] [address] * (ABNORMAL) Hemoglobin A1c (05/29/2019 2:34 PM CDT) Hgb A1C 9.0(H) 4.0 - 5.6 % [facility] Estimated Average Glucose 212 mg/dL ESTHELA Comment: The ADA recommends reporting an estimated Average Glucose (eAG) with all Hemoglobin A1c results using the equation derived from a study of 507 normal and diabetic adults. ??Minority populations were underrepresented and children were not included. ?? (Diabetes Care 31:3784-8910, 2008). ??The eAG is not equivalent to a fasting glucose. Blood specimen (specimen) 05/29/2019 2:34 PM CDT 05/29/2019 2:41 PM CDT us Zan Lee MD LAB BLOOD ORDERABLES Final Res ult Performing Organization Address [facility] de Phone Number ESTHELA [address] [place] [address] from Last 3 Months or Most Recently Relevant to Health Maintenance Insurance HUMANA MEDICARE HMO [id number] HU[employer]NA MEDICARE HMO Advance Directives For more information, please contact: [phone] * Full Code (Latest Code Status on File) Date Activated Date Inactivated Comments 06/03/2019 1:36 PM 06/04/2019 6:40 PM * Full Code Date Activated Date Inactivated Comments 12/31/2018 3:13 AM 01/02/2019 3:09 PM * Full Code Date Activated Date Inactivated Comments 12/29/2018 4:31 PM 12/31/2018 2:05 AM Healthcare Agents on File Name Relationship Healthcare Agent [facility] Cristhian Estevan [facility] Health Care Agent Care Teams Manager Financial Planning Relationship Specialty Start Date End Date Jovita Bermudez MD PCP - General Family Medicine 12/14/20 Zan Lee MD Surgeon Neurosurgery 01/02/19
--- OUTSIDE RECORDS SUMMARY | 2024-08-30 18:55 | XMS_ITS | Encounter Summary ---
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 Gender Identity Not on file Sexual Orientation Not on file documented as of this encounter Plan of Treatment Not on file documented as of this encounter Procedures Procedure Name Priority Date/Time Associated Diagnosis Comments PROTIME-INR Routine 05/06/2024 documented in this encounter Results * (ABNORMAL) Protime-INR (05/06/2024) INR 1.90(A) 0.90 - 1.10 EXTERNAL LAB Blood us Historical Provider LAB BLOOD ORDERABLES Jennifer doran Result EXTERNAL LAB documented in this encounter Visit Diagnoses Not on filedocumented in this encounter Care Teams Packing Machine Can Feeder Relationship Specialty Start Date End Date Jovita Bermudez MD PCP - General Family Medicine 12/14/20 Zan Lee MD Surgeon Neurosurgery 01/02/19 documented as of this encounter
--- OUTSIDE RECORDS SUMMARY | 2024-08-30 18:55 | XMS_ITS | Encounter Summary ---
Author Organization [facility] Address [address] [place] [address] Care Team Providers Care Vegetable Vendor Name Role Phone Zan Lee MD Unavailable [phone] Jovita Bermudez MD Primary Care Provider [phone] Encounter Details Date Type Department Care Team (Late st Contact Info) Description 06/27/[address] 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 Gender Identity Not on file Sexual Orientation Not on file documented as of this encounter Plan of Treatment Not on file documented as of this encounter Procedures Procedure Name Priority Date/Time Associated Diagnosis Comments PROTIME-INR Routine 06/26/2024 documented in this encounter Results * (ABNORMAL) Protime-INR (06/26/2024) INR 2.50(A) 0.90 - 1.10 EXTERNAL LAB Blood us Historical Provider LAB BLOOD ORDERABLES Jennifer doran Result EXTERNAL LAB documented in this encounter Visit Diagnoses Not on filedocumented in this encounter Care Teams Vegetable Vendor Relationship Specialty Start Date End Date Jovita Bermudez MD PCP - General Family Medicine 12/14/20 Zan Lee MD Surgeon Neurosurgery 01/02/19 documented as of this encounter
--- OUTSIDE RECORDS SUMMARY | 2024-08-30 18:55 | XMS_ITS | Referral Summary ---
Author Organization [facility] Address [address] [place] [address] Care Team Providers Care Drosser Name Role Phone Zan Lee MD Unavailable [phone] Jovita Bermudez MD Primary Care Provider [phone] Encounters Date Type Department Care Team Description 08/25/2024 Anticoagulation Visit [facility] Medical Group Cardiology [address] [place] [address] Raudel Gonzalez, JUSTICE 06/27/2024 Anticoagulation Visit [facility] Medical [facility] Cardiology [address] [place] [address] Ilene Hicks, JUSTICE from Last 3 Months Allergies Active Allergy Reactions Criticality Noted Date Comments Cefazolin Rash,Wheezing Medium Lisinopril Cough Low 05/29/2019 Medications aspirin 81 mg enteric coated tablet Take 1 tablet (81 mg total) by mouth nightly Active levothyroxine (SYNTHROID, LEVOTHROID) 75 mcg tablet Take 1 tablet (75 mcg total) by mouth handyman before breakfast 3 019 Active metFORMIN (GLUCOPHAGE) [...] mouth Active traMADoL (ULTRAM) 50 mg tablet Active PARoxetine (PAXIL) 40 mg tablet Take 0.5 tablets (20 mg total) by mouth every morning Active gabapentin (NEURONTIN) 600 mg tablet Active Ozempic 0.25 mg or 0.5 mg [...] total) by mouth daily 180 tablet 3 024 Active losartan (COZAAR) 25 mg tabletIndicatio ns:Cardiomyopat hy, unspecified type (HCC) Take 1 tablet (25 mg total) by mouth daily 90 tablet 3 024 Active warfarin (COUMADIN) 2 mg tablet TAKE 2 TABLETS BY MOUTH ON SUNDAY, SUNDAY, SUNDAY, AND SUNDAY, AND 1.5 TABLETS ON SUNDAY, SUNDAY, AND SUNDAY 90 tablet Active simvastatin (ZOCOR) 40 mg tablet TAKE 1 TABLET(40 MG) BY MOUTH EVERY NIGHT 90 tablet 3 024 Active simvastatin (ZOCOR) 40 mg tablet Take 1 tablet (40 mg total) by mouth nightly 90 tablet 3 024 2023 Discontinued Active Problems Problem Noted Date Diagnosed Date Morbid (severe) obesity due to excess calories 0 09/06/2022 AMOR (obstructive sleep apnea) 02/17/2021 Mixed diabetic hyperlipidemi a associated with type 2 diabetes mellitus ([facility]) 12/14/2020 Chronic anticoagulation 12/14/2020 Thrombus of left atrial appendage 12/14/2020 Persistent atrial fibrillation 12/14/2020 Chronic HFrEF (heart failure with reduced ejection fraction) (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 Gender Identity Not on file Sexual Orientation Not on file Last Filed [...] 02/27/2024 8:49 AM CDT Plan of Treatment Not on file Medical Devices Implanted Type Area Oyster Harvester Device Identifier Shelf Expiration Date Model / Serial / Lot Stent Stent Heart [employer] [id number] Acculink Od10 Mm L40 Mm L132 Cm Self Expandable; Rapid Exchange; - [id number] - [id number] Implanted:Qty: 1 on 01/01/2019 by Zan Lee MD at [facility] Stent [employer] 10/25/2019 [id number] 0 / [id number] / [employer] [id number] Angio-Seal Vip Bondek-Plus 6fr .035in 70cm Hemostatic Latex Free - [id number] Implanted:Qty: 1 on 01/01/2019 by Zan Lee MD at [facility] [employer] 07/26/2019 [id number] / / [id number] Procedures Procedure Name Priority Date/Time Associated Diagnosis Comments PROTIME-INR Routine 08/22/2024 PROTIME-INR Routine 06/26/2024 POCT LIPID PANEL Routine 03/27/2023 2:56 PM CDT Lipid screening EGFR Routine 06/04/2019 3:08 AM CDT HEMOGLOBIN A1C Routine 05/29/2019 2:34 PM CDT Preop testing from Last 3 Months or Most Recently Relevant to Health Maintenance Results * (ABNORMAL) Protime-INR (08/22/2024) INR 7.20(A) 0.90 - 1.10 EXTERNAL LAB Blood Historical Provider MD LAB BLOOD ORDERABLES Jennifer l Result EXTERNAL LAB * (ABNORMAL) Protime-INR (06/26/2024) Pathologist [facility] INR 2.50(A) 0.90 - 1.10 EXTERNAL LAB Blood Historical Provider MD LAB BLOOD ORDERABLES Jennifer l Result EXTERNAL LAB * POCT lipid panel (03/27/2023 2:56 PM CDT) Pathologist [facility] Cholesterol, POC 99 mg/dL HDL, POC 26 [...] ??mL/min/1.73m2 *Relative to young adult level If -Senegalese multiply value by 1.16. Estimated glomerular filtration [...] NP LAB BLOOD ORDERABLES Fin al Result ESTHELA [address] [place] [address] * (ABNORMAL) Hemoglobin A1c (05/29/2019 2:34 PM CDT) [facility] Signature Hgb A1C 9.0(H) 4.0 - 5.6 % ESTHELA Estimated Average Glucose 212 mg/dL ESTHELA MAGALLON Comment: The ADA recommends reporting an estimated Average Glucose (eAG) with all Hemoglobin A1c results using the equation derived from a study of 507 normal and diabetic adults. ??Minority populations were underrepresented and children were not included. ?? (Diabetes Care 31:3849-0767, 2008). ??The eAG is not equivalent to a fasting glucose. Blood specimen (specimen) 05/29/2019 2:34 PM CDT 05/29/2019 2:41 PM CDT us Zan Lee MD LAB [place] [address] [place] [address] from Last 3 Months or Most Recently Relevant to Health Maintenance Insurance HUMANA MEDICARE HMO HUMANA MEDICARE HMO Advance Directives For more information, please contact: [phone] * Full Code (Latest Code Status on File) Date Activated Date Inactivated Comments 06/03/2019 1:36 PM 06/04/2019 6:40 PM * Full Code Date Activated Date Inactivated Comments 12/31/2018 3:13 AM 01/02/2019 3:09 PM * Full Code Date Activated Date Inactivated Comments 12/29/2018 4:31 PM 12/31/2018 2:05 AM Healthcare Agents on File Name Relationship Healthcare Agent Relationshi p Communication Cristhian Estevan [facility] Health Care Agent Care Teams Drosser Relationship Specialty Start Date End Date Jovita Bermudez MD PCP - General Family Medicine 12/14/20 Zan Lee MD Surgeon Neurosurgery 01/02/19
--- OUTSIDE RECORDS SUMMARY | 2024-08-30 18:56 | XMS_ITS | Encounter Summary ---
Author Organization [facility] Address [address] [facility] [address] [place] [id number] Care Team Providers Care Auto Air Conditioning Installer Name Role Phone Zan Lee MD Unavailable [phone] Jovita Bermudez MD Primary Care Provider [phone] Reason for Referral * Consultation (Routine) - Closed Specialty Diagnoses / Procedures Referred By Contac t Referred To Contact Cardiology Diagnoses Paroxysmal atrial flutter (CMS/HCC) (HCC) Persistent atrial fibrillation (HCC) Thrombus of left atrial appendage Dilated cardiomyopathy (CMS/HCC) (HCC) Hx of CABG Anderson Trejo MD Phone: tel: fax: Yoana Mora MD [address] [place] [id number] Phone: tel: fax: Referral ID Status Reason Start Date Expiration Date V isits Requested Visits Authorized [id number] Closed Specialty Services Required 09/06/2022 10/06/2023 1 1 Question Answer Please select the performing region: [facility] [[id number]] Please select the performing department: [facility] [[id number]] To provider: YOANA MORA [[id number]] # of visits: 1 Comments PAF, h/o CM, CHF, CAD h/o left atrial appendage thrombus [employer] Reason for Visit * Reason Comments Follow-up 6 mo f/u Cardiomyopathy Atrial Fibrillation Encounter Details Date Type Department Care Team (Latest Contact Info) Description 09/06/2022 3:15 PM [employer]AL Office Visit [facility] Cardiology [address] [place] [address] Anderson Trejo MD [address] [place], [place] [id number] Coronary artery disease involving clark's point coronary artery of clark's point heart without angina pectoris (Primary Dx); Chronic HFrEF (heart failure with reduced ejection fraction) (CMS/HCC) (HCC); 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 diabetes mellitus (CMS/HCC) (HCC); Hypertension associated with diabetes (HCC); Paroxysmal atrial flutter (CMS/HCC) (HCC); Persistent atrial fibrillation (HCC); Thrombus of left atrial appendage; Dilated cardiomyopathy (CMS/HCC) (HCC); Chronic anticoagulation; Hx of CABG; AMOR (obstructive sleep apnea); Morbid (severe) obesity due to excess calories (HCC) Social History Tobacco Use Types Packs/Day Years [...] on file Legal Sex Female 3:00 AM [employer]AL Gender Identity Not on file Sexual Orientation Not on file documented as of this encounter Last Filed Vital Signs Vital Sign Reading Time Taken Comments Blood Pressure 118/70 09/06/2022 3:31 PM [employer]INCIPAL Pulse 67 09/06/2022 3:31 PM [employer]INCIPAL Temperature - - Respiratory Rate - - Oxygen Saturation 90% 09/06/2022 3:31 PM [employer]AL Inhaled Oxygen Concentration - - Weight 102.2 kg (225 lb 4.8 oz) 09/06/2022 3:31 PM [employer]INCIPAL Height 165.1 cm (5' 5 ) 09/06/2022 3:31 PM MIDD[employer] SCHO[employer] PRINCIPAL Body Mass Index 37.49 09/06/2022 3:31 PM MIDD[employer] SCHO[employer] PRINCIPAL documented in this encounter Progress Notes * Anderson Trejo MD - 09/06/2022 3:15 PM CST Images from the original note were not included. DATE OF VISIT: 09/06/2022 CHIEF COMPLAINT Chief Complaint Patient presents with Follow-up 6 mo f/u Cardiomyopathy Atrial Fibrillation ASSESSMENT Diagnoses and all orders for this visit: Coronary artery disease involving clark's point coronary artery of clark[place] heart without angina pectoris (Primary) Chronic HFrEF (heart failure with reduced ejection fraction) (CMS/HCC) (HCC) 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 diabetes mellitus (CMS/HCC) (HCC) Hypertension associated with diabetes (HCC) Paroxysmal atrial flutter (CMS/HCC) ([facility]) - ECG 12 lead - Ambulatory referral to Cardiac Electrophysiology; Future Persistent atrial fibrillation (HCC) - ECG 12 lead - Ambulatory referral to Cardiac Electrophysiology; Future Thrombus of left atrial appendage - Ambulatory referral to Cardiac Electrophysiology; Future Dilated cardiomyopathy (CMS/HCC) (HCC) - Ambulatory referral to Cardiac Electrophysiology; Future Chronic anticoagulation Hx of CABG - Ambulatory referral to Cardiac Electrophysiology; Future AMOR (obstructive sleep apnea) Morbid (severe) obesity due to excess calories ([facility]) PLAN/RECOMMENDATIONS Stable, persistent A. Fib controlled now atrial flutter with controlled ventricular response on Diltiazem and Toprol XL. Continue current medical therapy and systemic anticoagulation for stroke risk reduction. CHADS2 Vasc score 6. -Cont warfarin goal INR 2-3. Monthly INR or sooner as directed. If any sig change in weight or medsincl ABx. Go to ER immediately with head injury, falls or bleeding. -Toprol XL 200mg daily diltiazem 120 mg daily. -Again, unable to perform CV after FALGUNI revealed STEVEN thrombus. Pt remains symptomatic despite HR control. Referral to EP Dr Mora she is in agreement does not wish to go to [facility] and wants to followup at with EP when available. -Discussed alternatives to warfarin such as Eliquis or Xarelto, Eliquis was very expensive so had to stop. -Limitation with antiarrhythmic therapy due to STEVEN thrombus. NYHA class III sxs, well compensated HFrEF previously EF 30% improved EF 50-55% by most recent echocardiogram June 2021. CHF counseling performed. Follow daily weight, less than 2 g daily sodium intake, medication compliance. Call w/ wt gain >3lb in 24 hrs or worsening edema and/or ALEXANDER. -Optimize GDMT. On Losartan and Toprol XL. Ideally, would prefer Entresto, however, pt had RAVEN-I cough with Lisinopril. -continue Jardiance. -Not taking Lasix 20mg daily, offered increase but she declined due to excessive urination. Advisedto resume. Discuss with PCP urination issues. -compliance with CPAP strongly encouraged. BP controlled goal less than 130/80 mm Hg. Monitor BP on routine basis. Call with readings. Continue consistent cardiovascular exercise, weight loss, medication compliance, and low-sodium diet. -losartan 50 mg daily, Toprol XL 200 mg daily Lipids personally reviewed 03/03/22 LDL 37, quite low, well controlled. Goal LDL <70. Continue statin therapy and lifestyle modification. Continue simvastatin 40 mg at bedtime. Compliance with CPAP for treatment of AMOR. Counseled on CHF, AF risk and contributions. 6. DM managed by PCP. 7. No anginal sxs. Aggressive CAD risk modification counseling performed. Continue current medical therapy. Notify office immediately with anginal symptoms. -ASA 81mg daily given carotid dz, CAD, CVA. Monitor for bleeding in combination with warfarin. -12 lead EKG today personally reviewed and discussed atrial flutter variable AV block 68bpm QRS 86msec low voltage NSST changes abnl ECG. Over 50% of this visit counseling atrial flutter/fibrillation, cardiomyopathy/CHF, CAD, HTN, lipids, medications, lifestyle modification. Follow up in the office in 2 months or sooner as needed. Thank you for allowing me the privilege of participating in the care this very pleasant patient. Please do not hesitate to contact me with any additional questions or concerns. HPI Tressa Myers is a 67 y.o. female with a PMHx of coronary artery disease s/p CABG in 2013, with postoperative AFib, history of TIA with subsequent bilateral carotid artery intervention (left carotid stent December 2018 and right CEA May 2019 Dr Lee), HTN, HLD, DM, remote tobacco use, marijuana use, high risk for AMOR. She was previously followed by runstitching machine operator Dr. Nunn but had not seen him in about 2 years. She presented to [facility] on 09/07/2020 with complaint of progressively worsening shortness of breath and orthopnea for the past 3 weeks. She had eventually began sleeping in arecliner. On presentation she was found to be in AFib with RVR. Dr. Trejo met her in consultation. Her echocardiogram showed moderately reduced LV systolic dysfunction with EF estimated 35%, hypokinesis of the apical lateral and mid inferolateral woodward, moderately enlarged RV with moderately reduced RV systolic function, moderate LAE, severe VIRIDIANA, aortic valve calcification with mildly restricted motion of the right cusp, severely calcified mitral valve annulus, mild TR, PASP 39 mmHg. Subsequent FALGUNI showed a large loose organized thrombus in the left atrial appendage, a small ASD, moderate to severe TR and [id number] MR. There was also large intramural plaque versus thrombus in the ascending aorta. Therefore subsequent CTA of the chest showed mild aortic atherosclerosis, no aneurysm or dissection and also a 10 mm left lower lobe nodule. Obviously because of the thrombus, cardioversion was not performed. She was ultimately discharged with metoprolol succinate 100 mg daily and anticoagulated with Eliquis 5 mg b.i.d.. She was discharged with furosemide 40 mg daily. At the time of discharge her H&H was 14.3 and 45.6, K 4.0, BUN 19, creatinine 0.6. 09/24/20 HFU w/ CAT-she reports feeling a lot better. Breathing is more comfortable, orthopnea resolved. Her PCP wants her to pursue a sleep study and she ask for the information for [facility]. She feels quite tired during the day. She had labs drawn this past Sunday and PCP got results, told her they were fine except the A1c was elevated. She denies any bleeding problems. She has been taking furosemide 20 mg b.i.d. so that her urinary urgency isn't too bad when she goes to work in the morning. She has been watching weight at home slowly it has gone down lb per day on average. She has questions about low-sodium diet in addition to her diabetic diet. She denies any bleeding problems. She is in the process of applying for patient's assistance with Eliquis. 10/28/20 CAT visit-Dr. Trejo performed FALGUNI on October 19 which still showed a large loosely organized thrombus in the left atrial appendage extending into the left atrium. The left atrium looked moderate to severely enlarged. LV systolic function was still moderately to severely reduced with EF estimated 30%. Right atrium was also severely enlarged and there was still evidence ASD, moderate tosevere TR and [id number] MR. Dr. Trejo recommended switching from Eliquis to warfarin. Patient took her 1st dose of warfarin a week ago and went to the lab today for her 1st INR. Today she has no specific complaints or concerns. Twelve lead ECG performed in the office today was reviewed by me personally and shows atrial fibrillation with variable ventricular response, rate 94 beats per minute 12/14/20 Had J&J shot. Had swelling in R leg with bruising admitted to [facility] 11/26/20 INR elevated at 8.1 better now. Feeling ok she states breathing is ok, some ALEXANDER but much better overall, no CP palps or dizziness or falls. No melena or BRBPR. On Toprol XL 150mg daily. Had sleep study last night. 02/17/21 CAT visit-her sleep study showed severe sleep apnea and she is now on a CPAP machine but having difficulty getting a mask with appropriate seal. She is going back on Sunday to get a differentmask. She has no complaints today. Specifically she denies any dyspnea, edema, chest pain or palpitations. She denies any syncope, presyncope or lightheadedness. She denies any bleeding problems and had an INR checked today. ECG showed atrial fibrillation with rapid ventricular response, rate 130 bpm. 05/16/21 CAT visit - she came in on 03/16/21 for cardioversion but was in sinus rhythm. She has rescheduled office f/u a couple times since then. Today she reports feeling extremely tired all the time.She did not really notice any increased energy when she began using CPAP. She does have a fullface mask now which is working better. She attributes her weight gain to bad eating habits. 06/24/21 CAT visit - she was hospitalized at [facility] in [place] for pneumonia and pyelonephritis 2 weeks ago. She was told she was back in AFib during that time. She saw her PCP in follow-up 10days ago and was started on diltiazem 120 mg daily. PCP wanted to schedule her for an echo but she said she would contact us about that. Today patient reports she feels like she is starting to get a little stronger. 12-lead ECG performed in the office today was independently interpreted by me and showed atrial flutter vs. atrial fibrillation with variable ventricular response, rate 74 beats per minute 08/24/21 Notes some ALEXANDER maybe worse past few days had to stop 2x walking in from parking lot. She blames on paralyzed diaphragm but CT chest does not reveal. Pt recently admitted to [facility] for pneumonia feeling a lot better CT chest 08/11/21 still SOB. She was ok before she thinks. No F, cough. No CP or palps. Virgilio Diltiazem nearly 3 months tolerating well. Had converted to SR previously wh ere she was scheduled for FALGUNI so not performed. 11/14/21 CAT visit- she is here for 3 month follow-up. A falguni/cardioversion was advised at the last visit but she not want to come in [place] at that time with COVID numbers being high. Today she reports feeling about the same but she thinks her ALEXANDER is slowly getting worse. She has not been using her CPAP for the last 3-4 weeks because she was waiting on a new mask. It just arrived so she is anticipating restarting CPAP. She denies chest pain, palpitations or bleeding. 03/03/22 no CP or palps, no dizziness, falls or bleeding. Feels SOB and tired as she has no change overall. FALGUNI 11/2021 minimal edema. Virgilio meds taking Lasix 20mg daily. 09/06/22 Still SOB, edema stable not taking LAsix for 6-8 months now due to freq urination. No CP, not aware of palps, no falls or bleeding. Tired all the time, not sleeping well due to nocturia. Not wearing CPAP like she should mask awkward would like to try a different mask. LAst FALGUNI 11/2021. MEDICAL HISTORY Past Medical History: Diagnosis Date Anxiety Atrial fibrillation (CMS/HCC) ([facility]) 09/07/2020 Cardiac rhythm disturbance Cardiomyopathy (HCC) 09/07/2020 Carotid atherosclerosis COPD (chronic obstructive pulmonary disease) (CMS/HCC) (HCC) Diabetes mellitus (HCC) Diaphragm paralysis GERD (gastroesophageal reflux disease) Heart failure (HCC) Heart failure (HCC) Heart failure (HCC) History of other diseases of the circulatory system, not elsewhere classified Coronary Artery Disease - Was having SOB outpatient. Had stress echo/EKG outpatient 9/11/13, 1.[address] segment depression noted inferiorly and [address] segment depression noted laterally; EF60-65%, hypokinesis of the distal septum, probably diastolic dysfunction. LHC (05/07/13) (1) [id number]% narrowings from proximal to distal RCA (2) R large PDA with 50% near ostial narrowing, (3) * Hyperlipidemia Hypertension Hypothyroidism Obesity AMOR (obstructive sleep apnea) 02/17/2021 Paroxysmal atrial flutter (CMS/HCC) ([facility]) Personal history of other diseases of the circulatory system History of hypertension - (Added by TW Conv) Personal history of other diseases of the digestive system History of esophageal reflux - (Added by TW Conv) Personal history of other mental and behavioral disorders History of anxiety disorder - (Added by TW Conv) Stroke (CMS/HCC) ([facility]) Type 2 diabetes mellitus ([facility]) Wears dentures SOCIAL HISTORY reports that she has quit smoking. Her smoking use included cigarettes. She smoked 0.25 packs per day. She has never used smokeless tobacco. She reports previous alcohol use. She reports current druguse. Drug: Marijuana. FAMILY HISTORY family history includes CARDIAC ARREST in her mother; COVID-19 in her brother; Coronary artery disease in her mother and another family member; Heart disease in her mother. MEDICATIONS HOME MEDICATIONS : ascorbic acid (VITAMIN C) 500 mg tablet,chewable aspirin 81 mg enteric coated tablet cholecalciferol, vitamin D3, (VITAMIN D3 ORAL) dilTIAZem CD/XR/XT (CARDIZEM CD,DILACOR XR) 120 mg 24 hr capsule empagliflozin (JARDIANCE) 10 mg tablet levothyroxine (SYNTHROID, LEVOTHROID) 75 mcg tablet losartan (COZAAR) 25 mg tablet metFORMIN (GLUCOPHAGE) 1,000 mg tablet metoprolol XL (TOPROL-XL) 100 mg 24 hr tablet PARoxetine (PAXIL) 40 mg tablet simvastatin (ZOCOR) 40 mg tablet SITagliptin (JANUVIA) 100 mg tablet traMADoL (ULTRAM) 50 mg tablet warfarin (COUMADIN) 2 mg tablet celecoxib (CeleBREX) 200 mg capsule furosemide (LASIX) 40 mg tablet UNABLE TO FIND ALLERGIES Allergies Allergen Reactions Cefazolin Rash and Wheezing Lisinopril Cough REVIEW OF SYSTEMS Review of Systems Constitutional: Positive for malaise/fatigue. Negative for fever, weight gain and weight loss. Cardiovascular: Positive for dyspnea on exertion. Negative for claudication, orthopnea, paroxysmal nocturnal dyspnea and syncope. Respiratory: Negative for cough, shortness of breath, snoring and wheezing. Hematologic/Lymphatic: Bruises/bleeds easily. Skin: Negative for rash. Musculoskeletal: Negative for arthritis, joint pain and myalgias. Gastrointestinal: Negative for heartburn. Neurological: Negative for dizziness and headaches. All other systems reviewed and are negative. PHYSICAL EXAM Vitals BP 118/70 (BP Location: Right arm, Patient Position: Sitting) Pulse 67 Ht 165.1 cm (5' 5 ) Wt 102.2 kg (225 lb 4.8 oz) SpO2 90% BMI 37.49 kg/m?? Weight: 102.2 kg (225 lb 4.8 oz) Height: 165.1 cm (5' 5 ) Body mass index is 37.49 kg/m??. Physical Exam Vitals reviewed. Constitutional: General: She is not in acute distress. Appearance: Normal appearance. She is well-developed. She is not diaphoretic. HENT: Head: Normocephalic and atraumatic. Right Ear: External ear normal. Left Ear: External ear normal. Nose: Nose normal. Mouth/Throat: Dentition: Normal dentition. Eyes: General: Lids are normal. No scleral icterus. Conjunctiva/sclera: Conjunctivae normal. Neck: Thyroid: No thyromegaly. Vascular: Normal carotid pulses. No carotid bruit, hepatojugular reflux or JVD. Trachea: No tracheal deviation. Cardiovascular: Rate and Rhythm: Normal rate. Rhythm irregularly irregular. Pulses: Normal pulses and intact distal pulses. Heart sounds: S1 normal and S2 normal. Heart sounds not distant. Murmur heard. Early systolic murmur is present with a grade of 3/6. No friction rub. No gallop. No S3 or S4 sounds. Pulmonary: Effort: Pulmonary effort is normal. No respiratory distress. Breath sounds: Normal breath sounds. No wheezing or rales. Chest: Chest wall: No tenderness. Abdominal: General: Bowel sounds are normal. There is no distension or abdominal bruit. Palpations: Abdomen is soft. There is no mass. Tenderness: There is no abdominal tenderness. There is no guarding or rebound. Comments: obese Musculoskeletal: General: No tenderness or deformity. Normal range of motion. Cervical back: Normal range of motion and neck supple. Right lower leg: Edema present. Left lower leg: Edema present. Comments: 1+BLE edema Lymphadenopathy: Cervical: No cervical adenopathy. Skin: General: Skin is warm and dry. Coloration: Skin is not pale. Findings: No ecchymosis, erythema, petechiae or rash. Nails: There is no clubbing. Neurological: Mental Status: She is alert and oriented to person, place, and time. Cranial Nerves: No cranial nerve deficit. Motor: No abnormal muscle tone. Coordination: Coordination normal. Psychiatric: Speech: Speech normal. Behavior: Behavior normal. Behavior is cooperative. Judgment: Judgment normal. LABS AND OTHER DIAGNOSTIC TESTS Lab Results Component Value Date WBC 8.4 06/04/2019 HGB 11.8 (L) 06/04/2019 HCT 37.0 06/04/2019 CREATININE 0.39 (L) 06/04/2019 POTASSIUM 4.0 06/04/2019 BUNSER 10 06/04/2019 Results for orders placed or performed in visit on 08/11/22 Protime-INR Result Value Ref Range INR 2.60 (A) 0.9 - 1.1 07/01/21 2D Echo: Conclusions: Normal left ventricular size. Definity contrast agent used to visually enhance endocardial wall motion and contractility. Lot Number: [id number]. Moderate concentric left ventricular hypertrophy. Left ventricular systolic function at the lower limit of normal. Ejection fraction is visually estimated at 50-55 %. Ejection fraction is measured at 55 %. Normal right ventricular systolic function. Mild enlargement of right ventricle. There is severe enlargement of left atrium. There is severe enlargement of right atrium. Mitral valve leaflets appear moderately thickened. Moderate mitral annular calcification. Mild mitral valve regurgitation. Moderate aortic stenosis. Valve area of 1.42 cm2. Moderate pulmonary hypertension based on right ventricular systolic pressure. Estimated peak RVSP is 45 mmHg. Moderate tricuspid regurgitation. Mild pulmonic regurgitation. Atrial fibrillation with RVR. 07/18/21 Interpretation Summary AMBULATORY LINING VAMPER REPORT Patient Name: Tressa Myers Date of : 1955 Requesting Provider: Lovely Nuñez NP Referring provider: Jovita Bermudez MD Date of interpretation: 07/18/21 Type of monitor : 72 hour patch monitor Date of the study/Enrollment period: 07/05/2021 Indication: Atrial flutter Quality of the study: Fair, baseline artifact and low voltage. Interpretation: The patient was monitored for 3 days. The underlying rhythm was persistent atrial fibrillation with a minimum heart rate of 65 beats per minute, average heart rate of 95 beats per minute and maximum heart rate of 134 beats per minute. There may have been 1 ventricular triplet versusartifact but otherwise no ventricular ectopy. There were no pauses, heart block, or ventricular tachycardia. No symptoms were recorded. Conclusions: Persistent atrial fibrillation with a mildly elevated heart rate response. No symptoms recorded. 08/11/21 EXAM DESCRIPTION: CT CHEST W/O CONTRAST REASON [...] of the visualized portions of the abdomen. I have personally reviewed EKG, electronic medical record, admission records from [facility]20. and bloodwork/lipids. Grisel Trejo MD, [facility] This note is dictated and transcribed using Orange[employer]ly[employer] Direct Software. Neuroscience Specialist variancesmay occur. Despite proofreading, typographical errors may occur. [employer]IPAL documented in this encounter Plan of Treatment Scheduled Referrals Name Type Priority Associated Diagnoses Orde r Schedule Ambulatory referral to Cardiac Electrophysiology Outpatient Referral Routine Paroxysmal atrial flutter (CMS/HCC) (HCC) Persistent atrial fibrillation (HCC) Thrombus of left atrial appendage Dilated cardiomyopathy (CMS/HCC) (HCC) Hx of CABG Expected: 09/20/2022 (Approximate), Expires: 09/06/2023 documented as of this encounter Procedures Procedure Name Priority Date/Time Associated Diagnosis Comments ECG 12-LEAD Routine 09/06/2022 Paroxysmal atrial flutter (CMS/HCC) (HCC) Persistent atrial fibrillation (HCC) documented in this encounter Results * ECG 12 lead (09/06/2022) Anderson Trejo MD ECG ORDERABLES Final Re sult documented in this encounter Visit Diagnoses Diagnosis Coronary artery disease involving clark's [place] coronary artery of [place] heart without angina pectoris- Primary Chronic HFrEF (heart failure with reduced ejection fraction) (CMS/HCC) (HCC) 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 diabetes mellitus (HCC) Hypertension associated with diabetes (HCC) Unspecified essential hypertension Paroxysmal atrial flutter (CMS/HCC) (HCC) Persistent atrial fibrillation (HCC) Atrial fibrillation Thrombus of left atrial appendage Dilated cardiomyopathy (CMS/HCC) (HCC) Other primary cardiomyopathies Chronic anticoagulation Encounter for long-term (current) use of anticoagulants Hx of CABG Postsurgical aortocoronary bypass status AMOR (obstructive sleep apnea) Obstructive sleep apnea (adult) (pediatric) Morbid (severe) obesity due to excess calories (HCC) documented in this encounter Care Teams Auto Air Conditioning Installer Relationship Specialty Start Date End Date Jovita Bermudze MD PCP - General Family Medicine 12/14/20 Zan Lee MD Surgeon Neurosurgery 01/02/19 documented as of this encounter
--- OUTSIDE RECORDS SUMMARY | 2024-08-30 18:56 | XMS_ITS | Encounter Summary ---
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 Gender Identity Not on file Sexual Orientation Not on file documented as of this encounter Plan of Treatment Not on file documented as of this encounter Procedures Procedure Name Priority Date/Time Associated Diagnosis Comments PROTIME-INR Routine 08/13/2023 documented in this encounter Results * (ABNORMAL) Protime-INR (08/13/2023) INR 1.90(A) 0.9 - 1.1 EXTERNAL LAB Blood us Historical Provider LAB BLOOD ORDERABLES Jennifer doran Result EXTERNAL LAB documented in this encounter Visit Diagnoses Not on filedocumented in this encounter Care Teams Hand Meat Salter Relationship Specialty Start Date End Date Jovita Bermudez MD PCP - General Family Medicine 12/14/20 Zan Lee MD Surgeon Neurosurgery 01/02/19 documented as of this encounter
--- OUTSIDE RECORDS SUMMARY | 2024-08-30 18:56 | XMS_ITS | Encounter Summary ---
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 Gender Identity Not on file Sexual Orientation Not on file documented as of this encounter Plan of Treatment Not on file documented as of this encounter Procedures Procedure Name Priority Date/Time Associated Diagnosis Comments PROTIME-INR Routine 11/12/2023 documented in this encounter Results * (ABNORMAL) Protime-INR (11/12/2023) INR 2.10(A) 0.9 - 1.1 EXTERNAL LAB Blood us Historical Provider LAB BLOOD ORDERABLES Jennifer doran Result EXTERNAL LAB documented in this encounter Visit Diagnoses Not on filedocumented in this encounter Care Teams Tunnel Elastic Operator Chainstitch Relationship Specialty Start Date End Date Jovita Bermudez MD PCP - General Family Medicine 12/14/20 Zan Lee MD Surgeon Neurosurgery 01/02/19 documented as of this encounter
--- OUTSIDE RECORDS SUMMARY | 2024-08-30 18:56 | XMS_ITS | Encounter Summary ---
Author Organization [facility] Address [address] [place] [address] Care Team Providers Care Financial Institution Branch Manager Name Role Phone Zan Lee MD Unavailable [phone] Jovita Bermudez MD Primary Care Provider [phone] Encounter Details Date Type Department Care Team (Late st Contact Info) Description 01/04/2024 Telephone [facility] Cardiology [address] [place] [address] Lovely Nuñez NP [address] [place] [address] Social History Tobacco Use Types [...] Frequency of Binge Drinking Not on file 0512/2018 PHQ-2 Answer Date Recorded PHQ-2 Score 0 04/19/2019 Comments No Sex and Gender Information Value Date Recorded Sex Assigned at Not on file Legal 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 * Telephone Encounter - Ming Duenasnca - 01/04/2024 4:10 PM CDT Yasmine called from lab requesting INR order be faxed to their office. Pt is there now. Thank you. Contact: documented in this encounter Plan of Treatment Scheduled Orders Name Type Priority Associated Diagnoses Orde r Schedule Protime-INR Lab Routine Persistent atrial fibrillation (HCC) Chronic anticoagulation weekly for 52 Occurrences starting 01/04/2024 until 01/03/2025 documented as of this encounter Visit Diagnoses Diagnosis Persistent atrial fibrillation (HCC)- Primary Atrial fibrillation Chronic anticoagulation Encounter for long-term (current) use of anticoagulants documented in this encounter Care Teams Financial Institution Branch Manager Relationship Specialty Start Date End Date Jovita Bermudez MD PCP - General Family Medicine 12/14/20 Zan Lee MD Surgeon Neurosurgery 01/02/19 documented as of this encounter
--- OUTSIDE RECORDS SUMMARY | 2024-08-30 18:56 | XMS_ITS | Encounter Summary ---
Author Organization [facility] Address [address] [place] [address] Care Team Providers Care Respiratory Care Faculty Name Role Phone Zan Lee MD Unavailable [phone] Jovita Bermudez MD Primary Care Provider [phone] Encounter Details Date Type Department Care Team (Late st Contact Info) Description 11/23/2022 Telephone [facility] Cardiology [address] [id number] Anderson Trejo MD [address] [facility] [address] [place] [address] Social History Tobacco Use Types Packs/Day Years [...] on file Legal 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 Gender Identity Not on file Sexual Orientation Not on file documented as of this encounter Miscellaneous Notes * Telephone Encounter - Elsa Licea RN - 11/28/2022 10:41 AM CDT Clinicals faxed to HOTEL RECREATIONAL FACILITIES MANAGER * Telephone Encounter - Elsa Licea RN - 11/28/2022 10:39 AM CDT Pt scheduled for RANDALL w/Anesthesia On 12/06/22 at - GI Lab with AD Dx: LV thrombus Insurance: [employer] Medicare Procedure verified w/Marcela in Graphic at ; scheduled w/Adam Arrival time: 1100 Labs: N/A Hold medications: Jardiance Metformin, Januvia Pre-procedure instructions reviewed in detail with patient. Copy of instructions also sent in mail.They verbalized understanding of all information received. * Telephone Encounter - Elsa Licea RN - 11/27/2022 3:43 PM CDT Spoke w/pt. She is agreeable to RANDALL at , preferably on a Sunday. Will proceed with scheduling. * Telephone Encounter - Elsa Licea RN - 11/24/2022 9:01 AM CDT LMOV requesting callback discuss. * Telephone Encounter - Elsa Licea RN - 11/23/2022 11:43 AM CDT Reviewed w/AD- will schedule pt for R[facility] w/Anesthesia at [facility] w/AD. * Telephone Encounter - Elsa Licea RN - 11/23/2022 11:43 AM CDT ----- Message from Anderson Trejo MD sent at 11/23/2022 9:17 AM CDT ----- Regarding: RE: Repeat RANDALL Yes that sounds fine. Makes sense. I agree. We can set her up for RANDALL with anesthesia to clarify left atrial appendage thrombus status and clarify options for her as appropriate. Thanks for your help. ----- Message ----- From: Garrison Mora MD Sent: 11/14/2022 9:31 AM CDT To: Anderson Trejo MD Subject: Repeat RANDALL Hi Damon, Wanted to touch base with you about Ms. Myers. I know twice know shes had a STEVEN thrombus when trying to put her back in normal rhythm. She's overall doing okay in AF, so I don't think we need to barrera to get her back in SR, but I wanted to see your thought ons repeat RANDALL to see if the thrombus has resolved? That could open up some avenues, but I'm not too hopefull we could keep her in sinus for a meaningful period of time with ablation or drugs. I did talk to her about AVN ablation and pacer, which she(rightfully) did not think we should do that just yet. Let me know and thanks! Garrison documented in this encounter Plan of Treatment Not on file documented as of this encounter Visit Diagnoses Not on filedocumented in this encounter Care Teams Respiratory Care Faculty Relationship Specialty Start Date End Date Jovita Bermudez MD PCP - General Family Medicine 12/14/20 Zan Lee MD Surgeon Neurosurgery 01/02/19 documented as of this encounter
--- OUTSIDE RECORDS SUMMARY | 2024-08-30 18:56 | XMS_ITS | Encounter Summary ---
Author Organization [facility] Address [address] [place] [address] Care Team Providers Care Manager E Learning Name Role Phone Zan Lee MD Unavailable [phone] Jovita Bermudez MD Primary Care Provider [phone] Encounter Details Date Type Department Care Team ([facility] Contact Info) Description 12/06/2022 Orders Only [facility] Health Information Management [address] [place] [address] Scanning, Provider Social History Tobacco Use Types Packs/Day Years [...] on file Legal Sex Female 3:00 AM REVERSER Gender Identity Not on file Sexual Orientation Not on file documented as of this encounter Plan of Treatment Not on file documented as of this encounter Procedures Procedure Name Priority Date/Time Associated Diagnosis Comments CARDIOLOGY DOCUMENT SCAN 12/06/2022 documented in this encounter Results * CARDIOLOGY DOCUMENT SCAN (12/06/2022) Anatomical Region Laterality Modality Other us Provider Scanning CV CARDIAC SERVICES PROCEDURES Final Result documented in this encounter Visit Diagnoses Not on filedocumented in this encounter Care Teams Manager E Learning Relationship Specialty Start Date End Date Jovita Bermudez MD PCP - General Family Medicine 12/14/20 Zan Lee MD Surgeon Neurosurgery 01/02/19 documented as of this encounter
--- OUTSIDE RECORDS SUMMARY | 2024-08-30 18:56 | XMS_ITS | Encounter Summary ---
Author Organization [facility] Address [address] [place] [address] Care Team Providers Care Java Jsf Developer Name Role Phone Zan Lee MD Unavailable [phone] Jovita Bermudez MD Primary Care Provider [phone] Reason for Visit * Reason Comments New Patient Atrial Fibrillation * Consultation (Routine) - Closed Specialty Diagnoses / Procedures Referred By Contac t Referred To Contact Cardiology Diagnoses Paroxysmal atrial flutter (CMS/HCC) (HCC) Persistent atrial fibrillation (HCC) Thrombus of left atrial appendage Dilated cardiomyopathy (CMS/HCC) (HCC) Hx of CABG Anderson Trejo MD Phone: tel: fax: Garrison Mora MD [address] [place] [address] Phone: tel: fax: Referral ID Status Reason Start Date Expiration Date V isits Requested Visits Authorized [id number] Closed Specialty Services Required 09/06/2022 10/06/2023 1 1 Encounter Details Date Type Department Care Team (Latest Contact Info) Description 11/14/2022 9:00 AM CDT Office Visit [facility] Cardiology [address] [facility] [address] [place] [phone] Garrison Mora MD [facility] [address] Persistent atrial fibrillation (HCC) (Primary Dx); Paroxysmal atrial flutter (CMS/HCC) (HCC); Thrombus of left atrial appendage; Dilated cardiomyopathy (CMS/HCC) (HCC); Hx of CABG Social History Tobacco Use Types Packs/Day Years [...] on file 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 Gender Identity Not on file Sexual Orientation Not on file documented as of this encounter Last Filed Vital Signs Vital Sign Reading Time Taken Comments Blood Pressure 120/80 11/14/2022 9:03 AM CDT Pulse 100 11/14/2022 9:03 AM CDT Temperature - - Respiratory Rate 16 11/14/2022 9:03 AM CDT Oxygen Saturation 94% 11/14/2022 9:03 AM CDT Inhaled Oxygen Concentration - - Weight 101.7 kg (224 lb 3.2 oz) 11/14/2022 9:03 AM CDT Height 165.1 cm (5' 5 ) 11/14/2022 9:03 AM CDT Body Mass Index 37.31 11/14/2022 9:03 AM CDT documented in this encounter Progress Notes * Garrison Mora MD - 11/14/2022 9:00 AM CDT Consult Note - Cardiac Electrophysiology Patient Name: Tressa Myers Date of : 1955 Primary Physician: Jovita Bermudez MD Referring Physician: Grsiel Trejo MD I had the pleasure of seeing Tressa Myers in consultation at the [facility]- Cardiology at [facility]. I have reviewed the pertinent data originating outside our institution and outside my specialty within our institution and summarized the pertinent information below. As you well know, she is a 67 y.o. female with the following arrhythmia-specific history: 1. Persistent Atrial fibrillation Initially diagnosed in postoperative setting after CABG in 2013 Recurrence in 08/2020 leading to hospitalization due to ADHF and AF with RVR. RANDALL/DCCV attempted at this time, however unable to be done due to STEVEN thrombus Patient with paroxysmal nature until 2021. Repeat RANDALL in 11/2021 again showing STEVEN thrombus, so no cardioversion performed Maintained on Metoprolol, Diltiazem and Coumadin Pertinent history: CAD s/p CABG(2013), HTN, DM, HLD, HoT4 Patient overall states she does not know that she is in atrial fibrillation. She states she does not experience any tachy palpitations or episodes of chest pain. She states she is had persistent shortness of breath since her CABG, which she attributes to some degree of diaphragmatic paralysis. Of note the patient is also a 80 pack year smoker, quitting when she was 60. She states she is fatigued,however denies any worsening fatigue over the past year. She denies any presyncope or syncopal episodes. She states she is compliant with her Coumadin, taking 1-1/2 most days and 2 mg twice a week. Past Medical History Past Medical History: Diagnosis Date Anxiety Atrial fibrillation (CMS/HCC) ([facility]) 09/07/2020 Cardiac rhythm disturbance Cardiomyopathy (HCC) 09/07/2020 Carotid atherosclerosis COPD (chronic obstructive pulmonary disease) (CMS/HCC) (HCC) Diabetes mellitus (HCC) Diaphragm paralysis GERD (gastroesophageal reflux disease) Heart failure (HCC) Heart failure (HCC) Heart failure (HCC) History of other diseases of the circulatory system, not elsewhere classified Coronary Artery Disease - Was having SOB outpatient. Had stress echo/EKG outpatient 05/07/13, 1.[address] segment depression noted inferiorly and [address] segment depression noted laterally; EF60-65%, hypokinesis of the distal septum, probably diastolic dysfunction. [facility] (05/07/13) (1) Pmyyqip88% narrowings from proximal to distal RCA (2) R large PDA with 50% near ostial narrowing, (3) * Hyperlipidemia Hypertension Hypothyroidism Obesity AMOR (obstructive sleep apnea) 02/17/2021 Paroxysmal atrial flutter (CMS/HCC) ([facility]) Personal history of other diseases of the circulatory system History of hypertension - (Added by TW Conv) Personal history of other diseases of the digestive system History of esophageal reflux - (Added by TW Conv) Personal history of other mental and behavioral disorders History of anxiety disorder - (Added by TW Conv) Stroke (CMS/HCC) (HCC) Type 2 diabetes mellitus (HCC) Wears dentures Past Surgical History Past Surgical History: Procedure Laterality Date CAROTID STENT Left CORONARY ARTERY BYPASS GRAFT CA LIG/TRNSXJ FLP TUBE ABDL/VAG APPR UNI/BI Tubal Ligation - (Added by TW Conv) CA PRQ TRLUML CORONARY STENT W/ANGIO ONE ART/BRNCH Cath Stent Placement - Xience TOM to LCX (04/2013) (Added by TW Conv) TUBAL LIGATION Medications Current Outpatient Medications: ascorbic acid (VITAMIN C) 500 mg tablet,chewable, Take 500 mg by mouth nightly, Disp: , Rfl: aspirin 81 mg enteric coated tablet, Take 81 mg by mouth nightly , Disp: , Rfl: celecoxib (CeleBREX) 200 mg capsule, Take 200 mg by mouth daily (Patient not taking: Reported on 03/03/2022), Disp: , Rfl: cholecalciferol, vitamin D3, (VITAMIN D3 ORAL), Take by mouth, Disp: , Rfl: dilTIAZem CD/XR/XT (CARDIZEM CD,DILACOR XR) 120 mg 24 hr capsule, Take 120 mg by mouth daily, Disp:, Rfl: empagliflozin (JARDIANCE) 10 mg tablet, 25 mg , Disp: , Rfl: furosemide (LASIX) 40 mg tablet, Take 20 mg by mouth daily (Patient not taking: Reported on 09/06/2022), Disp: , Rfl: levothyroxine (SYNTHROID, LEVOTHROID) 75 mcg tablet, Take 75 mcg by mouth early childhood services coordinator before breakfast , Disp: , Rfl: 3 losartan (COZAAR) 25 mg tablet, TAKE ONE TABLET BY MOUTH EVERY DAY, Disp: 30 tablet, Rfl: 11 metFORMIN (GLUCOPHAGE) 1,000 mg tablet, Take 1,000 mg by mouth 2 (two) times a day with meals , Disp: , Rfl: 3 metoprolol XL (TOPROL-XL) 100 mg 24 hr tablet, TAKE TWO TABLETS BY MOUTH ONCE DAILY, Disp: 180 tablet, Rfl: 2 PARoxetine (PAXIL) 40 mg tablet, Take 20 mg by mouth every morning, Disp: , Rfl: simvastatin (ZOCOR) 40 mg tablet, TAKE 1 TABLET BY MOUTH NIGHTLY., Disp: 90 tablet, Rfl: 1 SITagliptin (JANUVIA) 100 mg tablet, Take 1 tablet by mouth nightly , Disp: , Rfl: traMADoL (ULTRAM) 50 mg tablet, , Disp: , Rfl: UNABLE TO FIND, Apple cider vinegar 450 mg - takes 2 daily (Patient not taking: Reported on 09/06/2022), Disp: , Rfl: warfarin (COUMADIN) 2 mg tablet, TAKE 2 TABLETS BY MOUTH EVERY DAY OR DIRECTED, Disp: 60 tablet,Rfl: 0 Allergies Allergies Allergen Reactions Cefazolin Rash and Wheezing Lisinopril Cough Family History Family History Problem Relation Age of Onset Coronary artery disease Mother Family history of coronary artery disease - Premature CAD (Added by TW Conv) Heart disease Mother Other (CARDIAC ARREST) Mother CAUSE OF Coronary artery disease Other Family history of coronary artery disease - Premature CAD (Added by TW Conv) Other (COVID-19) Brother CAUSE OF Social History Social History Tobacco Use Smoking status: Former Packs/day: 0.25 Types: Cigarettes Smokeless tobacco: Never Tobacco comments: history of 2ppd for 30yrs prior to cutting back. Substance and Sexual Activity Drug use: Yes Types: Marijuana Comment: couple times weekly Sexual activity: Defer Alcohol Use: Not on file Review of Systems Review of Systems 12 POINT ROS DONE AND ALL OTHER SYSTEMS ARE NEGATIVE. Objective Vitals: 11/14/22 0903 BP: 120/80 BP Location: Left arm Patient Position: Sitting Pulse: 100 Resp: 16 SpO2: 94% Weight: 101.7 kg (224 lb 3.2 oz) Height: 165.1 cm (5' 5 ) Physical Exam Constitutional: No distress. Head: Normocephalic. Nose: Nose normal. Mouth/Throat: Mucous membranes are normal. Eyes: Sclera Anicteric Neck: Supple without appreciable lymphadenopathy, carotid bruits Cardiovascular: Irregularly irregular, normal rate, S1 normal and S2 normal. No murmurs/rubs/gallops. Pulmonary/Chest: Distant breath sounds, however no wheezes rhonchi or rales Abdominal: Soft. Normal appearance. Neurological: alert, oriented Skin: warm and dry, without rashes. Psychiatric: normal mood and affect. Diagnostic Data ECG performed today and reviewed personally reveals atrial fibrillation with rapid ventricular response and heart rate of 128 beats per minute. low voltage in precordial leads, likely due to body habitus. Nonspecific ST changes in inferior and lateral leads. Labs Creatinine Date Value Ref Range Status 06/04/2019 0.39 (L) 0.60 - 1.10 mg/dL Final , Plt Date Value Ref Range Status 06/04/2019 239 150 - 400 K/cumm Final , WBC Date Value Ref Range Status 06/04/2019 8.4 3.8 - 9.9 K/cumm Final , Hgb Date Value Ref Range Status 06/04/2019 11.8 (L) 11.9 - 15.5 g/dL Final 06/2021 3 day monitor personally reviewed showing persistent AF, HRs 65-95-134 06/2021 TTE: Conclusions: Normal left ventricular size. Definity contrast [...] Mild pulmonic regurgitation. Atrial fibrillation with RVR. 11/2021 RANDALL with attempted DCCV result reviewed: EF 45-50%, persistent STEVEN thrombus, mod-severe TR and ASD Visit Diagnoses (I48.19) Persistent atrial fibrillation (HCC) (primary encounter diagnosis) Plan: Ambulatory referral to Cardiac Electrophysiology, ECG 12 lead (I48.92) Paroxysmal atrial flutter (CMS/HCC) ([facility]) Plan: Ambulatory referral to Cardiac Electrophysiology, ECG 12 lead (I51.3) Thrombus of left atrial appendage Plan: Ambulatory referral to Cardiac Electrophysiology, ECG 12 lead (I42.0) Dilated cardiomyopathy (CMS/HCC) ([facility]) Plan: Ambulatory referral to Cardiac Electrophysiology, ECG 12 lead (Z95.1) Hx of CABG Plan: Ambulatory referral to Cardiac Electrophysiology, ECG 12 lead Impression and Plan Ms. Myers is a 67 yo F with a PMH/o persAF and persistent STEVEN thrombus here for initiation of care: #persAF: Unable to pursue rhythm control at this time given pt's STEVEN thrombus. Will discuss with Dr. Trejo about repeating RANDALL for further evaluation to see if thrombus has resolved as INRs dating back to 06/2022 have been therapeutic. Given patient's persistent atrial fibrillation as well as underlying obesity and diabetes, it may be quite difficult to sustain sinus rhythm for meaningful period of time. At this time: -continue rate control with metoprolol 200 mg daily. Patient states she is no longer on diltiazem as it had interactions with other medications -I have asked the patient to keep a heart rate log at home in order to see if further rate control as needed. If patient is unable to do this, then she is willing to pursue outpatient Holter monitoring -continue Coumadin, which is followed by her [place] office #STEVEN thrombus: As above, we will discuss with Dr. Trejo if repeating RANDALL is warranted to see if thrombus has resolved. If it has resolved, we can discuss rhythm control strategies for the patient'satrial fibrillation. Thank you for allowing us to participate in the care of this pleasant patient. Please do not hesitate to call us if any questions arise. Respectfully, Garrison Mora MD Clinical Cardiac Electrophysiology [facility] at This note was transcribed using speech recognition software. As a result, there may be grammatical and spelling errors that are unintended. If there are any questions or major inaccuracies, please contact us. documented in this encounter Plan of Treatment Not on file documented as of this encounter Procedures Procedure Name Priority Date/Time Associated Diagnosis Comments ECG 12-LEAD Routine 11/14/2022 Paroxysmal atrial flutter (CMS/HCC) (HCC) Persistent atrial fibrillation (HCC) Thrombus of left atrial appendage Dilated cardiomyopathy (CMS/HCC) (HCC) Hx of CABG documented in this encounter Results * ECG 12 lead (11/14/2022) us Garrison Mora MD ECG ORDERABLES Final Result documented in this encounter Visit Diagnoses Diagnosis Persistent atrial fibrillation (HCC)- Primary Atrial fibrillation Paroxysmal atrial flutter (CMS/HCC) (HCC) Thrombus of left atrial appendage Dilated cardiomyopathy (CMS/HCC) (HCC) Other primary cardiomyopathies Hx of CABG Postsurgical aortocoronary bypass status documented in this encounter Orders Outpatient Referral Count Last Ordered Date Fir st Ordered Date AMB REFERRAL TO CARDIAC ELECTROPHYSIOLOGY 1 11/14/2022 documented in this encounter Care Teams Java Jsf Developer Relationship Specialty Start Date End Date Jovita Bermudez MD PCP - General Family Medicine 12/14/20 Zan Lee MD Surgeon Neurosurgery 01/02/19 documented as of this encounter
--- OUTSIDE RECORDS SUMMARY | 2024-08-30 18:56 | XMS_ITS | Encounter Summary ---
Author Organization [facility] Healthcare Address [address] [place] [address] Care Team Providers Care Pluck Separator Name Role Phone Zan Lee MD Unavailable [phone] Jovita Bermudez MD Primary Care Provider [phone] Encounter Details Date Type Department Care Team (Late st Contact Info) Description 05/28/[address] 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 ADVISOR Gender Identity Not on file Sexual Orientation Not on file documented as of this encounter Plan of Treatment Not on file documented as of this encounter Procedures Procedure Name Priority Date/Time Associated Diagnosis Comments PROTIME-INR Routine 05/25/2023 documented in this encounter Results * (ABNORMAL) Protime-INR (05/25/2023) INR 2.40(A) 0.9 - 1.1 EXTERNAL LAB Blood us Historical Provider LAB BLOOD ORDERABLES Jennifer doran Result EXTERNAL LAB documented in this encounter Visit Diagnoses Not on filedocumented in this encounter Care Teams Pluck Separator Relationship Specialty Start Date End Date Jovita Bermudez MD PCP - General Family Medicine 12/14/20 Zan Lee MD Surgeon Neurosurgery 01/02/19 documented as of this encounter
--- OUTSIDE RECORDS SUMMARY | 2024-08-30 18:56 | XMS_ITS | Encounter Summary ---
Author Organization [facility] Medical Group Address [address] [place] [address] Care Team Providers Care Physical Therapy Technician Name Role Phone Zan Lee MD Unavailable [phone] Jovita Bermudez MD Primary Care Provider [phone] Encounter Details Date Type Department Care Team (Late st Contact Info) Description 03/28/[address] 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 Gender Identity Not on file Sexual Orientation Not on file documented as of this encounter Plan of Treatment Not on file documented as of this encounter Procedures Procedure Name Priority Date/Time Associated Diagnosis Comments PROTIME-INR Routine 03/27/2023 documented in this encounter Results * (ABNORMAL) Protime-INR (03/27/2023) INR 2.10(A) 0.9 - 1.1 EXTERNAL LAB Blood us Historical Provider LAB BLOOD ORDERABLES Jennifer doran Result EXTERNAL LAB documented in this encounter Visit Diagnoses Not on filedocumented in this encounter Care Teams Physical Therapy Technician Relationship Specialty Start Date End Date Jovita Bermudez MD PCP - General Family Medicine 12/14/20 Zan Lee MD Surgeon Neurosurgery 01/02/19 documented as of this encounter
--- OUTSIDE RECORDS SUMMARY | 2024-08-30 18:56 | XMS_ITS | Encounter Summary ---
Author Organization [facility] Medical Group Address [address] [place] [address] Care Team Providers Care Building Performance Consultant Name Role Phone Zan Lee MD Unavailable [phone] Jovita Bermudez MD Primary Care Provider [phone] Encounter Details Date Type Department Care Team (Late st Contact Info) Description 12/26/2022 Telephone [facility] Medical [facility] Cardiology [address] [place] [address] Anderson Trejo MD [address] [facility] [address] [place] [id number] Social History Tobacco Use Types Packs/Day Years [...] on file 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 Contact: documented in this encounter Plan of Treatment Scheduled Orders Name Type Priority Associated Diagnoses Orde r Schedule Protime-INR Lab Routine Persistent atrial fibrillation (HCC) Chronic anticoagulation 52 Occurrences starting 12/26/2022 until 12/27/2023 documented as of this encounter Visit Diagnoses Diagnosis Persistent atrial fibrillation (HCC)- Primary Atrial fibrillation Chronic anticoagulation Encounter for long-term (current) use of anticoagulants documented in this encounter Care Teams Building Performance Consultant Relationship Specialty Start Date End Date Jovita Bermudez MD PCP - General Family Medicine 12/14/20 Zan Lee MD Surgeon Neurosurgery 01/02/19 documented as of this encounter
--- OUTSIDE RECORDS SUMMARY | 2024-08-30 18:56 | XMS_ITS | Encounter Summary ---
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
--- OUTSIDE RECORDS SUMMARY | 2024-08-30 18:56 | XMS_ITS | Encounter Summary ---
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 Gender Identity Not on file Sexual Orientation Not on file documented as of this encounter Plan of Treatment Not on file documented as of this encounter Procedures Procedure Name Priority Date/Time Associated Diagnosis Comments PROTIME-INR Routine 04/15/2024 documented in this encounter Results * (ABNORMAL) Protime-INR (04/15/2024) INR 2.00(A) 0.90 - 1.10 EXTERNAL LAB Blood us Historical Provider LAB BLOOD ORDERABLES Jennifer doran Result EXTERNAL LAB documented in this encounter Visit Diagnoses Not on filedocumented in this encounter Care Teams Health Club Attendant Relationship Specialty Start Date End Date Jovita Bermudez MD PCP - General Family Medicine 12/14/20 Zan Lee MD Surgeon Neurosurgery 01/02/19 documented as of this encounter
--- OUTSIDE RECORDS SUMMARY | 2024-08-30 18:56 | XMS_ITS | Encounter Summary ---
Author Organization [facility] Medical Group Address [address] [place] [address] Care Team Providers Care Emergency Management Specialist Name Role Phone Zan Lee MD Unavailable [phone] Jovita Bermudez MD Primary Care Provider [phone] Encounter Details Date Type Department Care Team (Late st Contact Info) Description 10/03/[address] 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 Gender Identity Not on file Sexual Orientation Not on file documented as of this encounter Plan of Treatment Not on file documented as of this encounter Procedures Procedure Name Priority Date/Time Associated Diagnosis Comments PROTIME-INR Routine 10/02/2022 documented in this encounter Results * (ABNORMAL) Protime-INR (10/02/2022) INR 2.00(A) 0.9 - 1.1 EXTERNAL LAB Blood us Historical Provider LAB BLOOD ORDERABLES Jennifer doran Result EXTERNAL LAB documented in this encounter Visit Diagnoses Not on filedocumented in this encounter Care Teams Emergency Management Specialist Relationship Specialty Start Date End Date Jovita Bermudez MD PCP - General Family Medicine 12/14/20 Zan Lee MD Surgeon Neurosurgery 01/02/19 documented as of this encounter
--- OUTSIDE RECORDS SUMMARY | 2024-08-30 18:56 | XMS_ITS | Encounter Summary ---
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 Gender Identity Not on file Sexual Orientation Not on file documented as of this encounter Plan of Treatment Not on file documented as of this encounter Procedures Procedure Name Priority Date/Time Associated Diagnosis Comments PROTIME-INR Routine 07/03/2022 documented in this encounter Results * (ABNORMAL) Protime-INR (07/03/2022) INR 2.50(A) 0.9 - 1.1 EXTERNAL LAB Blood us Historical Provider LAB BLOOD ORDERABLES Jennifer doran Result EXTERNAL LAB documented in this encounter Visit Diagnoses Not on filedocumented in this encounter Care Teams Stress Analyst Relationship Specialty Start Date End Date Jovita Bermudez MD PCP - General Family Medicine 12/14/20 Zan Lee MD Surgeon Neurosurgery 01/02/19 documented as of this encounter
--- OUTSIDE RECORDS SUMMARY | 2024-08-30 18:56 | XMS_ITS | Encounter Summary ---
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 Gender Identity Not on file Sexual Orientation Not on file documented as of this encounter Plan of Treatment Not on file documented as of this encounter Procedures Procedure Name Priority Date/Time Associated Diagnosis Comments PROTIME-INR Routine 01/16/2023 documented in this encounter Results * (ABNORMAL) Protime-INR (01/16/2023) INR 2.40(A) 0.9 - 1.1 EXTERNAL LAB Blood us Historical Provider LAB BLOOD ORDERABLES Jennifer doran Result EXTERNAL LAB documented in this encounter Visit Diagnoses Not on filedocumented in this encounter Care Teams Loan Underwriter Relationship Specialty Start Date End Date Jovita Bermudez MD PCP - General Family Medicine 12/14/20 Zan Lee MD Surgeon Neurosurgery 01/02/19 documented as of this encounter
--- OUTSIDE RECORDS SUMMARY | 2024-08-30 18:56 | XMS_ITS | Encounter Summary ---
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 Gender Identity Not on file Sexual Orientation Not on file documented as of this encounter Plan of Treatment Not on file documented as of this encounter Procedures Procedure Name Priority Date/Time Associated Diagnosis Comments PROTIME-INR Routine 02/27/2024 documented in this encounter Results * (ABNORMAL) Protime-INR (02/27/2024) INR 2.60(A) 0.90 - 1.10 EXTERNAL LAB Blood us Historical Provider LAB BLOOD ORDERABLES Jennifer doran Result EXTERNAL LAB documented in this encounter Visit Diagnoses Not on filedocumented in this encounter Care Teams Overlocker Relationship Specialty Start Date End Date Jovita Bermudez MD PCP - General Family Medicine 12/14/20 Zan Lee MD Surgeon Neurosurgery 01/02/19 documented as of this encounter
--- OUTSIDE RECORDS SUMMARY | 2024-08-30 18:56 | XMS_ITS | Encounter Summary ---
Author Organization [facility] Address [address] [place] [address] Care Team Providers Care Manager Of Hospital Name Role Phone Zan Lee MD Unavailable [phone] Jovita Bermudez MD Primary Care Provider [phone] Reason for Visit * Reason Comments Follow-up 7 mo Encounter Details Date Type Department Care Team (Late st Contact Info) Description 03/27/2023 3:00 PM CDT Office Visit [facility] Cardiology [address] [facility] [address] [place] [address] Lovely Nuñez NP [address] [facility] [address] [place] [address] Persistent atrial fibrillation (HCC); Chronic HFrEF (heart failure with reduced ejection fraction) (CMS/HCC) (HCC); Coronary artery disease involving lovelock coronary artery of lovelock heart without angina pectoris; Lipid screening; 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 diabetes mellitus (CMS/HCC) (HCC) Social History Tobacco Use Types Packs/Day [...] on file 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 Gender Identity Not on file Sexual Orientation Not on file documented as of this encounter Last Filed Vital Signs Vital Sign Reading Time Taken Comments Blood Pressure 96/62 03/27/2023 2:49 PM CDT Pulse 90 03/27/2023 2:49 PM CDT Temperature - - Respiratory Rate - - Oxygen Saturation 91% 03/27/2023 2:49 PM CDT Inhaled Oxygen Concentration - - Weight 102.1 kg (225 lb) 03/27/2023 2:49 PM CDT Height 165.1 cm (5' 5 ) 03/27/2023 2:49 PM CDT Body Mass Index 37.44 03/27/2023 2:49 PM CDT documented in this encounter Ordered Prescriptions Prescription Sig Dispense Quantity Refills Last Filled Start Date End Date furosemide (LASIX) 40 mg tabletIndications: Chronic HFrEF (heart failure with reduced ejection fraction) (CMS/HCC) (HCC) Take 1 tablet (40 mg total) by mouth daily as needed (shortness of breath and/or swelling) 30 tablet 3 03/27/2023 07/25/2023 documented in this encounter Progress Notes * Lovely Nuñez NP - 03/27/2023 3:00 PM CDT Images from the original note were not included. [facility] Cardiology [address] [place] [address] Date of Visit: 03/27/2023 Patient ID: Tressa Myers 1955 Chief Complaint Patient presents with Follow-up 7 mo Tressa Myers is a 68 y.o. female who is an established patient of Dr. Trejo with a history of cardiomyopathy, CHF, AFib returning to the office for routine follow-up. History of Present Illness: Tressa Myers is a 68 y.o. female with a PMHx of coronary artery disease s/p CABG in 2013, with postoperative AFib, history of TIA with subsequent bilateral carotid artery intervention (left carotid stent December 2018 and right CEA May 2019 Dr Lee), HTN, HLD, DM, remote tobacco use, marijuana use, high risk for AMOR. She was previously followed by equine dentist Dr. Nunn but had not seen him in about 2 years. She presented to [facility] on 09/07/2020 with complaint of progressively worsening [...] small ASD, moderate to severe TR and [id number] MR. There was also large intramural plaque [...] and she ask for the information for [facility]. She feels quite tired [...] and there was still evidence ASD, moderate to severe TR and [id number] MR. Dr. Trejo recommended switching from Eliquis [...] in R leg with bruising admitted to [facility] 11/26/20 INR elevated at 8.1 better now. [...] CAT visit - she was hospitalized at [facility] in [place] for pneumonia and pyelonephritis 2 weeks ago. [...] does not reveal. Pt recently admitted to [facility] for pneumonia feeling a lot better CT [...] try a different mask. LAst FALGUNI 11/2021. 03/27/23 CAT visit-she is overdue for routine follow-up. Since her last office visit here, she saw Dr. Mora in consultation and had another FALGUNI which showed a persistent left atrial appendage thrombus. Her EF was 35% moderate MR and severe TR. Today she has no specific complaints or concerns and reports no other changes in her health. She feels her chronic dyspnea is unchanged. Records that I personally reviewed on the day of this visit include: (the interpretation is outlined in the HPI above) 09/06/[address] Trejo, 11/14/[address] Mora, today's lipids. I have also reviewed: allergies, current medications, past family history, past medical history, past social history, past surgical history and problem list Medical History: Past Medical History: Diagnosis Date Anxiety Atrial fibrillation (CMS/HCC) (HCC) 09/07/2020 Cardiac rhythm disturbance Cardiomyopathy (HCC) 09/07/2020 Carotid atherosclerosis COPD (chronic obstructive pulmonary disease) (HCC) Diabetes mellitus (HCC) Diaphragm paralysis GERD [...] septum, probably diastolic dysfunction. LHC (05/07/13) (1) Ycsimjx16% narrowings from proximal to distal RCA (2) R large PDA with 50% near ostial narrowing, (3) * Hyperlipidemia Hypertension Hypothyroidism Obesity AMOR (obstructive sleep apnea) 02/17/2021 Paroxysmal atrial flutter (CMS/HCC) ([facility]) Personal history of other diseases of the circulatory system History of hypertension - (Added by TW Conv) Personal history of other diseases of the digestive system History of esophageal reflux - (Added by TW Conv) Personal history of other mental and behavioral disorders History of anxiety disorder - (Added by TW Conv) Stroke ([facility]) Type 2 diabetes mellitus ([facility]) Wears dentures Past Surgical History: Procedure Laterality Date CAROTID STENT Left CORONARY ARTERY BYPASS GRAFT PA LIG/TRNSXJ FLP TUBE ABDL/VAG APPR UNI/BI Tubal Ligation - (Added by TW Conv) PA PRQ TRLUML CORONARY STENT W/ANGIO ONE ART/BRNCH Cath Stent Placement - Xience TOM to LCX (04/2013) (Added by TW Conv) TUBAL LIGATION Social History Tobacco Use Smoking status: Former Smoker Packs/day: 0.25 Types: Cigarettes Smokeless tobacco: Never Used Tobacco comment: history of 2ppd for 30yrs prior to cutting back. Substance Use Topics Alcohol use: Not Currently Comment: occasionally. Drug use: Yes Types: Marijuana Comment: couple times weekly Family History Problem Relation Age of Onset Coronary artery disease Mother Family history of coronary artery disease - Premature CAD (Added by TW Conv) Heart disease Mother Other (CARDIAC ARREST) Mother CAUSE OF Coronary artery disease Other Family history of coronary artery disease - Premature CAD (Added by TW Conv) Other (COVID-19) Brother CAUSE OF Review of Systems Constitutional: Negative for malaise/fatigue, weight gain and weight loss. Cardiovascular: Positive for dyspnea on exertion. Negative for chest pain, claudication, leg swelling, near-syncope, orthopnea, palpitations, paroxysmal nocturnal dyspnea and syncope. Respiratory: Negative for cough. Hematologic/Lymphatic: Negative for bleeding problem. Does not bruise/bleed easily. Neurological: Negative for dizziness and light-headedness. Vital Signs: BP 96/62 (BP Location: Left arm, Patient Position: Sitting) Pulse 90 Ht 165.1 cm (5' 5 ) Wt 102.1 kg (225 lb) SpO2 91% BMI 37.44 kg/m?? Physical Exam Constitutional: General: She is not in acute distress. Appearance: She is well-developed. HENT: Head: Normocephalic and atraumatic. Eyes: General: No scleral icterus. Conjunctiva/sclera: Conjunctivae normal. Neck: Vascular: No JVD. Trachea: No tracheal deviation. Cardiovascular: Rate and Rhythm: Normal rate. Rhythm irregular. Heart sounds: Normal heart sounds. No murmur heard. Comments: Apical heart rate approx 90bpm Pulmonary: Effort: Pulmonary effort is normal. No respiratory distress. Breath sounds: Examination of the right-lower field reveals rales. Examination of the left-lower field reveals rales. Rales present. Musculoskeletal: Right lower leg: No edema. Left lower leg: No edema. Skin: General: Skin is warm and dry. Neurological: Mental Status: She is alert and oriented to person, place, and time. Psychiatric: Mood and Affect: Mood normal. Behavior: Behavior normal. Allergies Allergen Reactions Cefazolin Rash and Wheezing Lisinopril Cough Current Outpatient Medications: ascorbic acid (VITAMIN C) 500 mg tablet,chewable, Take 1 tablet/chew tab (500 mg total) by mouth nightly, Disp: , Rfl: aspirin 81 mg enteric coated tablet, Take 1 tablet (81 mg total) by mouth nightly, Disp: , Rfl: cholecalciferol, vitamin D3, (VITAMIN D3 ORAL), Take by mouth, Disp: , Rfl: gabapentin (NEURONTIN) 600 mg tablet, , Disp: , Rfl: Jardiance 25 mg tablet, Take 1 tablet (25 mg total) by mouth daily, Disp: , Rfl: levothyroxine (SYNTHROID, LEVOTHROID) 75 mcg tablet, Take 1 tablet (75 mcg total) by mouth food service sales representatives before breakfast, Disp: , Rfl: 3 losartan (COZAAR) 25 mg tablet, TAKE ONE TABLET BY MOUTH EVERY DAY, Disp: 30 tablet, Rfl: 11 metFORMIN (GLUCOPHAGE) 1,000 mg tablet, Take 1 tablet (1,000 mg total) by mouth 2 (two) times a daywith meals, Disp: , Rfl: 3 metoprolol XL (TOPROL-XL) 100 mg 24 hr tablet, TAKE TWO TABLETS BY MOUTH ONCE DAILY, Disp: 180 tablet, Rfl: 2 PARoxetine (PAXIL) 40 mg tablet, Take 0.5 tablets (20 mg total) by mouth every morning, Disp: , Rfl: simvastatin (ZOCOR) 40 mg tablet, TAKE ONE TABLET BY MOUTH EVERY NIGHT, Disp: 90 tablet, Rfl: 1 SITagliptin (JANUVIA) 100 mg tablet, Take 1 tablet (100 mg total) by mouth nightly, Disp: , Rfl: traMADoL (ULTRAM) 50 mg tablet, , Disp: , Rfl: warfarin (COUMADIN) 2 mg tablet, TAKE TWO TABLETS (4 MG) BY MOUTH EVERY DAY, Disp: 60 tablet, Rfl: 0 furosemide (LASIX) 40 mg tablet, Take 1 tablet (40 mg total) by mouth daily as needed (shortness ofbreath and/or swelling), Disp: 30 tablet, Rfl: 3 Lab Results Component Value Date POTASSIUM 4.0 06/04/2019 BUNSER 10 06/04/2019 CREATININE 0.39 (L) 06/04/2019 CHOL 151 12/30/2018 TRIG 135 12/30/2018 LDL 15 02/23/2014 LDLCALC 85 12/30/2018 HDL 39 (L) 12/30/2018 Lab Results Component Value Date WBC 8.4 06/04/2019 HGB 11.8 (L) 06/04/2019 HCT 37.0 06/04/2019 MCV 96.9 (H) 06/04/2019 Assessment: Diagnoses and all orders for this visit: Persistent atrial fibrillation (HCC) Chronic HFrEF (heart failure with reduced ejection fraction) ([facility]) ([facility]) - furosemide (LASIX) 40 mg tablet; Take 1 tablet (40 mg total) by mouth daily as needed (shortness of breath and/or swelling) Coronary artery disease involving lovelock coronary artery of lovelock heart without angina pectoris Lipid screening - POCT lipid panel 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 diabetes mellitus ([facility]) ([facility]) Plan/Recommendations: She remains in atrial fibrillation. She was previously on both diltiazem and metoprolol but apparently she is not taken diltiazem for quite some time because there was a concern it interacted with one of our other medications, she can not recall which one. Continue warfarin and metoprolol. Continue follow-up with the anticoagulation clinic here in our office. She denies any bleeding problems. She was due for an INR check last week so she will go to the lab this afternoon after this appointment. Her weight is stable and she has no lower extremity edema but she does have some bilateral expiratory rales. She has not been taking furosemide because of urinary urgency. I advised her to restart furosemide 40 mg daily p.r.n., with a goal to take it at least 3 days a week. Continue metoprolol, losartan, Jardiance. Coronary artery disease appears stable. I reviewed signs/symptoms of angina and advised her to notify us immediately if this develops. Lipids are at goal. Continue simvastatin and aspirin. She reports that her diabetes has not been that well controlled and her provider has talked about insulin. I advised her to take her glycemic control very seriously because I can accelerate her coronary artery disease if not well controlled. Currently she is on Januvia, Jardiance and metformin. Return to the office to see Dr. Trejo in 6 months. Call us sooner with questions or concerns. 03/27/2023 JONI Salmon- Nurse Practitioner with [facility] Cardiology This note is dictated and transcribed using [employer] Direct Software. Explosives Mixer Operator variancesmay occur. Despite proofreading, typographical errors may occur. documented in this encounter Plan of Treatment Not on file documented as of this encounter Procedures Procedure Name Priority Date/Time Associated Diagnosis Comments POCT LIPID PANEL Routine 03/27/2023 2:56 PM CDT Lipid screening documented in this encounter Results * POCT lipid panel (03/27/2023 2:56 PM CDT) Cholesterol, POC 99 mg/dL HDL, POC 26 mg/dL Triglycerides, POC 105 mg/dL LDL Cholesterol POC 54 mg/dL Chol/HDL Ratio, POC - Non-HDL Cholesterol, POC - mg/dL Cholesterol Total, POC 99 mg/dL Capillary blood 03/27/2023 2 :56 PM CDT Lovely Nuñez NP POINT OF CARE TEST ORDERA BLES Final Result documented in this encounter Visit Diagnoses Diagnosis Persistent atrial fibrillation (HCC) Atrial fibrillation Chronic HFrEF (heart failure with reduced ejection fraction) ([facility]) (HCC) Coronary artery disease involving lovelock coronary artery of lovelock heart without angina pectoris Lipid screening Screening for lipoid disorders 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 diabetes mellitus ([facility]) ([facility]) documented in this encounter Discontinued Medications Medication Sig Discontinue Reason Start Date End Da te dilTIAZem CD/XR/XT (CARDIZEM CD,DILACOR XR) 120 mg 24 hr capsule Take 120 mg by mouth daily Discontinued by another clinician 03/27/2023 UNABLE TO FIND Apple cider vinegar 450 mg - takes 2 daily Therapy completed 03/27/2023 celecoxib (CeleBREX) 200 mg capsule Take 200 mg by mouth daily Therapy completed 04/14/2021 03/27/2023 empagliflozin (JARDIANCE) 10 mg tablet 2.5 tablets (25 mg total) Dose adjustment 07/19/2020 03/27/2023 furosemide (LASIX) 40 mg tablet Take 20 mg by mouth daily Reorder 03/27/2023 documented as of this encounter Historical Medications * This list may reflect changes made after this encounter. gabapentin (NEURONTIN) 600 mg tablet 02/12/2023 Jardiance 25 mg tablet Take 1 tablet (25 mg total) by mouth daily 02/21/2023 12/06/2023 added in this encounter Care Teams Manager Of Hospital Relationship Specialty Start Date End Date Jovita Bermudez MD PCP - General Family Medicine 12/14/20 Zan Lee MD Surgeon Neurosurgery 01/02/19 documented as of this encounter
--- OUTSIDE RECORDS SUMMARY | 2024-08-30 18:56 | XMS_ITS | Encounter Summary ---
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 Gender Identity Not on file Sexual Orientation Not on file documented as of this encounter Plan of Treatment Not on file documented as of this encounter Procedures Procedure Name Priority Date/Time Associated Diagnosis Comments SCAN - LABS 11/12/2023 documented in this encounter Results * SCAN - LABS (11/12/2023) us Provider Scanning Final Result documented in this encounter Visit Diagnoses Not on filedocumented in this encounter Care Teams Pressure Sealer And Tester Relationship Specialty Start Date End Date Jovita Bermudez MD PCP - General Family Medicine 12/14/20 Zan Lee MD Surgeon Neurosurgery 01/02/19 documented as of this encounter
--- OUTSIDE RECORDS SUMMARY | 2024-08-30 18:56 | XMS_ITS | Encounter Summary ---
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 Gender Identity Not on file Sexual Orientation Not on file documented as of this encounter Plan of Treatment Not on file documented as of this encounter Procedures Procedure Name Priority Date/Time Associated Diagnosis Comments PROTIME-INR Routine 12/28/2022 documented in this encounter Results * (ABNORMAL) Protime-INR (12/28/2022) INR 1.80(A) 0.9 - 1.1 EXTERNAL LAB Blood us Historical Provider LAB BLOOD ORDERABLES Jennifer doran Result EXTERNAL LAB documented in this encounter Visit Diagnoses Not on filedocumented in this encounter Care Teams Spooler Relationship Specialty Start Date End Date Jovita Bermudez MD PCP - General Family Medicine 12/14/20 Zan Lee MD Surgeon Neurosurgery 01/02/19 documented as of this encounter
--- OUTSIDE RECORDS SUMMARY | 2024-08-30 18:56 | XMS_ITS | Encounter Summary ---
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 Gender Identity Not on file Sexual Orientation Not on file documented as of this encounter Plan of Treatment Not on file documented as of this encounter Procedures Procedure Name Priority Date/Time Associated Diagnosis Comments SCAN - LABS 10/02/2022 documented in this encounter Results * SCAN - LABS (10/02/2022) us Provider Scanning Final Result documented in this encounter Visit Diagnoses Not on filedocumented in this encounter Care Teams Case Worker Relationship Specialty Start Date End Date Jovita Bermudez MD PCP - General Family Medicine 12/14/20 Zan Lee MD Surgeon Neurosurgery 01/02/19 documented as of this encounter
--- OUTSIDE RECORDS SUMMARY | 2024-08-30 18:56 | XMS_ITS | Encounter Summary ---
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 Gender Identity Not on file Sexual Orientation Not on file documented as of this encounter Plan of Treatment Not on file documented as of this encounter Procedures Procedure Name Priority Date/Time Associated Diagnosis Comments SCAN - LABS 11/01/2023 documented in this encounter Results * SCAN - LABS (11/01/2023) us Provider Scanning Final Result documented in this encounter Visit Diagnoses Not on filedocumented in this encounter Care Teams Sheet Metal Shop Helper Relationship Specialty Start Date End Date Jovita Bermudez MD PCP - General Family Medicine 12/14/20 Zan Lee MD Surgeon Neurosurgery 01/02/19 documented as of this encounter
--- OUTSIDE RECORDS SUMMARY | 2024-08-30 18:56 | XMS_ITS | Encounter Summary ---
Author Organization [facility] Address [address] [place] [address] Care Team Providers Care Echometer Engineer Name Role Phone Zan Lee MD Unavailable [phone] Jovita Bermudez MD Primary Care Provider [phone] Reason for Visit * Reason Onset Date Comments Authorization/Certification 11/30/2022 Encounter Details Date Type Department Care Team (Late st Contact Info) Description 11/30/2022 Telephone [facility] Cardiology [address] [address], [place] [id number] [place] [address] [place] [address] [address] [facility] [place] [address] Authorization/Certifica tion Social History Tobacco Use Types Packs/Day Years [...] on file 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 * Telephone Encounter - Brigitte Powers - 11/30/2022 8:44 PM CDT Receivd request for auth for RANDALL submitted request using [employer] provider portal. Received Auth Heidia- [id number] valid 11/30/2022-02/28/2023 No further action required * Telephone Encounter - Brigitte Powers - 11/30/2022 8:44 PM CDT ----- Message from Elsa Licea RN sent at 11/28/2022 10:16 AM CDT ----- Regarding: RANDALL PROCEDURE/TEST ORDERED: RANDALL LOCATION: DATE OF SERVICE: 12/06/22 INSURANCE: [employer] Medicare DIAGNOSIS: LV thrombus ORDERING PROVIDER: AD ADDITIONAL DETAILS: documented in this encounter Plan of Treatment Not on file documented as of this encounter Visit Diagnoses Not on filedocumented in this encounter Care Teams Echometer Engineer Relationship Specialty Start Date End Date Jovita Bermudez MD PCP - General Family Medicine 12/14/20 Zan Lee MD Surgeon Neurosurgery 01/02/19 documented as of this encounter
--- OUTSIDE RECORDS SUMMARY | 2024-08-30 18:56 | XMS_ITS | Encounter Summary ---
Author Organization [facility] Healthcare Address [address] [place] [address] Care Team Providers Care Turning Sander Operator Name Role Phone Zan Lee MD Unavailable [phone] Jovita Bermudez MD Primary Care Provider [phone] Reason for Visit * Reason Comments Follow-up 8 mo Encounter Details Date Type Department Care Team (Late Contact Info) Description 12/06/2023 9:30 AM CDT Office Visit [facility] Cardiology [address] [place] [address] Lovely Nuñez NP [address] [facility] [address] [place] [address] Chronic HFrEF (heart failure with reduced ejection fraction) (CMS/HCC) (HCC) (Primary Dx); Persistent atrial fibrillation (HCC); Chronic anticoagulation; Cardiomyopathy, unspecified type (HCC); Coronary artery disease involving false pass coronary artery of false pass heart without angina pectoris; 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 [...] on file 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 Gender Identity Not on file Sexual Orientation Not on file documented as of this encounter Last Filed Vital Signs Vital Sign Reading Time Taken Comments Blood Pressure 122/72 12/06/2023 9:53 AM CDT Pulse 88 12/06/2023 9:53 AM CDT Temperature - - Respiratory Rate - - Oxygen Saturation 92% 12/06/2023 9:53 AM CDT Inhaled Oxygen Concentration - - Weight 99.8 kg (220 lb) 12/06/2023 9:53 AM CDT Height 165.1 cm (5' 5 ) 12/06/2023 9:53 AM CDT Body Mass Index 36.61 12/06/2023 9:53 AM CDT documented in this encounter Patient Instructions * Patient Instructions* Lovely Nuñez NP - 12/06/2023 9:30 AM CDT Weigh yourself every morning after you urinate. Record your weights. Call us with weight gain of 3 or more pounds in 1 day, and/or 5 or more pounds in 1 week. documented in this encounter Progress Notes * Lovely Nuñez NP - 12/06/2023 9:30 AM CDT Images from the original note were not included. [facility] Cardiology [address] [place] [address] Date of Visit: 12/06/2023 Patient ID: Tressa Myers 1955 Chief Complaint Patient presents with Follow-up 8 mo Tressa Myers is a 68 y.o. [...] for AMOR. She was previously followed by poultry tender Dr. Nunn but had not seen him in about 2 years. She presented to [facility] on 09/07/2020 with complaint of progressively [...] small ASD, moderate to severe TR and [id number] MR. There was also large intramural plaque [...] and she ask for the information for [facility]. She feels quite tired [...] evidence ASD, moderate to severe TR and [id number] MR. Dr. Trejo recommended switching from Eliquis to warfarin. Patient took her 1st dose of warfarin a week ago and went to the lab today for her 1st INR. Today she has no specific complaints or concerns. Twelve lead ECG performed in the office today was reviewed byme personally and shows atrial fibrillation with variable ventricular response, rate 94 beats per minute 12/14/20 Had J&J shot. Had swelling in R leg with bruising admitted to [facility] 11/26/20 INR elevated at 8.1 better now. [...] CAT visit - she was hospitalized at [facility] in [place] for pneumonia and pyelonephritis 2 weeks ago. [...] does not reveal. Pt recently admitted to [facility] for pneumonia feeling a lot better [...] She feels her chronic dyspnea is unchanged. 12/06/23 CAT visit- she is here for routine follow-up. she states ALEXANDER and leg swelling were worse last week not sure why, is better this week. She estimates she is only taken her furosemide 2 times over the last couple of weeks in order to avoid urinary frequency. She thinks she has a UTI right now.She missed a dose of warfarin 3 days ago. PCP took her off Jardiance and put her on Ozempic. See ROS for pertinent negatives. Records that I personally reviewed on the day of this visit include: (the interpretation is outlined in the HPI above) 03/27/23 office note from myself, anticoagulation flow sheet. I have also reviewed: allergies, current medications, past family history, past medical history, past social history, past surgical history and problem list Medical History: Past Medical History: Diagnosis Date Anxiety Atrial fibrillation (CMS/HCC) ([facility]) 09/07/2020 Cardiac rhythm disturbance Cardiomyopathy ([facility]) 09/07/2020 Carotid atherosclerosis COPD (chronic obstructive pulmonary disease) ([facility]) Diabetes mellitus ([facility]) Diaphragm paralysis GERD (gastroesophageal reflux disease) Heart failure (HCC) Heart failure (HCC) Heart failure ([facility]) History of other diseases of the circulatory system, not elsewhere classified Coronary Artery Disease - Was having SOB outpatient. Had stress echo/EKG outpatient 05/07/13, 1.[address] segment depression noted inferiorly and [address] segment depression noted laterally; EF60-65%, hypokinesis of the distal septum, probably diastolic dysfunction. [facility] (05/07/13) (1) Slrmjtz38% narrowings from proximal to distal RCA (2) R large PDA with 50% near ostial narrowing, (3) * Hyperlipidemia Hypertension Hypothyroidism Obesity AMOR (obstructive sleep apnea) 02/17/2021 Paroxysmal atrial flutter (CMS/HCC) ([facility]) Personal history of other diseases of the circulatory system History of hypertension - (Added by TW Conv) Personal history of other diseases of the digestive system History of esophageal reflux - (Added by TW Conv) Personal history of other mental and behavioral disorders History of anxiety disorder - (Added by TW Conv) Stroke (HCC) Type 2 diabetes mellitus (HCC) Wears dentures Past Surgical History: Procedure Laterality Date CAROTID STENT Left CORONARY ARTERY BYPASS GRAFT MT LIG/TRNSXJ FLP TUBE ABDL/VAG APPR UNI/BI Tubal Ligation - (Added by TW Conv) MT PRQ TRLUML CORONARY STENT W/ANGIO ONE ART/BRNCH [...] Brother CAUSE OF Review of Systems Constitutional: Positive for weight loss. Negative for malaise/fatigue and weight gain. Cardiovascular: Positive for dyspnea on exertion and leg swelling. Negative for chest pain, claudication, near-syncope, orthopnea, palpitations, paroxysmal nocturnal dyspnea and syncope. Respiratory: Negative for cough. Hematologic/Lymphatic: Negative for bleeding problem. Does not bruise/bleed easily. Genitourinary: Positive for frequency. Neurological: Negative for dizziness and light-headedness. Vital Signs: BP 122/72 (BP Location: Right arm, Patient Position: Sitting) Pulse 88 Ht 165.1 cm (5' 5 ) Wt99.8 kg (220 lb) SpO2 92% BMI 36.61 kg/m?? Physical Exam Constitutional: General: She is not in acute distress. Appearance: She is well-developed. She is obese. HENT: Head: Normocephalic and atraumatic. Eyes: General: No scleral icterus. Conjunctiva/sclera: Conjunctivae normal. Neck: Vascular: No JVD. Trachea: No tracheal deviation. Cardiovascular: Rate and Rhythm: Normal rate. Rhythm irregular. Heart sounds: Normal heart sounds. No murmur heard. Comments: Apical heart rate approx 90bpm Pulmonary: Effort: Pulmonary effort is normal. No respiratory distress. Musculoskeletal: Right lower leg: Edema present. Left lower leg: Edema present. Comments: Mild bilateral 1+ edema to mid calves Skin: General: Skin is warm and dry. [...] ORAL), Take by mouth, Disp: , Rfl: furosemide (LASIX) 40 mg tablet, TAKE ONE TABLET BY MOUTH EVERY DAY (SWELLING AND/OR FOR SHORTNESS OF BREATH ) (Patient taking differently: Take 1 tablet (40 mg total) by mouth daily as needed (edema)), Disp: 90 tablet, Rfl: 0 gabapentin (NEURONTIN) 600 mg tablet, , Disp: , Rfl: levothyroxine (SYNTHROID, LEVOTHROID) 75 mcg tablet, Take 1 tablet (75 mcg total) by mouth residential support worker before breakfast, Disp: , Rfl: 3 losartan (COZAAR) 25 mg tablet, TAKE ONE TABLET BY MOUTH EVERY DAY, Disp: 30 tablet, Rfl: 11 metFORMIN (GLUCOPHAGE) 1,000 mg tablet, Take 1 tablet (1,000 mg total) by mouth 2 (two) times a daywith meals, Disp: , Rfl: 3 metoprolol XL (TOPROL-XL) 100 mg 24 hr tablet, TAKE TWO TABLETS BY MOUTH EVERY DAY, Disp: 180 tablet, Rfl: 2 Ozempic 0.25 mg or 0.5 mg (2 mg/3 mL) pen injector injection, INJECT 0.25 MG SUBCUTANEOUSLY ONCE WEEKLY, Disp: , Rfl: PARoxetine (PAXIL) 40 mg tablet, Take 0.5 [...] Rfl: warfarin (COUMADIN) 2 mg tablet, TAKE ONE TABLET BY MOUTH TWICE A DAY, Disp: 60 tablet, Rfl: 0 Lab Results Component Value Date POTASSIUM 4.0 06/04/2019 BUNSER 10 06/04/2019 CREATININE 0.39 (L) 06/04/2019 CHOL 151 12/30/2018 TRIG 135 12/30/2018 LDL 15 02/23/2014 LDLCALC 85 12/30/2018 HDL 39 (L) 12/30/2018 Lab Results Component Value Date WBC 8.4 06/04/2019 HGB 11.8 (L) 06/04/2019 HCT 37.0 06/04/2019 MCV 96.9 (H) 06/04/2019 Assessment: Diagnoses and all orders for this visit: Chronic HFrEF (heart failure with reduced ejection fraction) ([facility]) ([facility]) (Primary) Persistent atrial fibrillation (HCC) Chronic anticoagulation Cardiomyopathy, unspecified type (HCC) Coronary artery disease involving false pass coronary artery of false pass heart without angina pectoris 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 diabetes mellitus ([facility]) ([facility]) Plan/Recommendations: She remains in atrial fibrillation and attempt to restore sinus rhythm was not pursued because leftatrial appendage thrombus had not resolved when rechecked. She has seen Dr. Mora. She was previously on both diltiazem and metoprolol but apparently she is not taken diltiazem for quite some time because there was a concern it interacted with one of our other medications, she can not recall which one. Continue warfarin and metoprolol. Continue follow-up with the anticoagulation clinic here in our office. She denies any bleeding problems. She is due for INR next week, missed her dose this past Sunday. Her weight is stable and she has only mild lower extremity edema. She has not been taking furosemide because of urinary urgency. I advised her to monitor daily weights and I gave her the parameters for when to call us for weight gain. Continue metoprolol, losartan, now off Jardiance per PCP. Coronary artery disease appears stable. Lipids are at goal. Continue simvastatin and aspirin. She reports that her diabetes has improved. She is just started on Ozempic recently. I reminded herto take her glycemic control very seriously because I can accelerate her coronary artery disease ifnot well controlled. Continue metformin and Januvia as well per PCP She is aware of Dr. Trejo leaving the practice. We decided she would see me again in follow-up in6 months and then we can get her future follow-up visit scheduled with our new poultry tender. Call us sooner with questions or concerns. 12/06/2023 JONI Salmon- Nurse Practitioner with [facility] This note is dictated and transcribed using [employer] Software. Real Estate Agency Licensee variancesmay occur. Despite proofreading, typographical errors may occur. documented in this encounter Plan of Treatment Not on file documented as of this encounter Visit Diagnoses Diagnosis Chronic HFrEF (heart failure with reduced ejection fraction) (CMS/HCC) (HCC)- Primary Persistent atrial fibrillation (HCC) Atrial fibrillation Chronic anticoagulation Encounter for long-term (current) use of anticoagulants Cardiomyopathy, unspecified type (HCC) Coronary artery disease involving false pass coronary artery of false pass heart without angina pectoris 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 diabetes mellitus (CMS/[facility]) (HCC) documented in this encounter Discontinued Medications Medication Sig Discontinue Reason Start Date End Da te Jardiance 25 mg tablet Take 1 tablet (25 mg total) by mouth daily Discontinued by another clinician 02/21/2023 12/06/2023 documented as of this encounter Historical Medications * This list may reflect changes made after this encounter. Ozempic 0.25 mg or 0.5 mg (2 mg/3 mL) pen injector injection INJECT 0.25 MG SUBCUTANEOUSLY ONCE WEEKLY added in this encounter Care Teams Turning Sander Operator Relationship Specialty Start Date End Date Jovita Bermudez MD PCP - General Family Medicine 12/14/20 Zan Lee MD Surgeon Neurosurgery 01/02/19 documented as of this encounter
--- OUTSIDE RECORDS SUMMARY | 2024-08-30 18:56 | XMS_ITS | Encounter Summary ---
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 Gender Identity Not on file Sexual Orientation Not on file documented as of this encounter Plan of Treatment Not on file documented as of this encounter Procedures Procedure Name Priority Date/Time Associated Diagnosis Comments PROTIME-INR Routine 10/01/2023 documented in this encounter Results * (ABNORMAL) Protime-INR (10/01/2023) INR 1.50(A) 0.9 - 1.1 EXTERNAL LAB Blood us Historical Provider LAB BLOOD ORDERABLES Jennifer doran Result EXTERNAL LAB documented in this encounter Visit Diagnoses Not on filedocumented in this encounter Care Teams Endodontist Relationship Specialty Start Date End Date Jovita Bermudez MD PCP - General Family Medicine 12/14/20 Zan Lee MD Surgeon Neurosurgery 01/02/19 documented as of this encounter
--- OUTSIDE RECORDS SUMMARY | 2024-08-30 18:56 | XMS_ITS | Encounter Summary ---
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 Gender Identity Not on file Sexual Orientation Not on file documented as of this encounter Plan of Treatment Not on file documented as of this encounter Procedures Procedure Name Priority Date/Time Associated Diagnosis Comments PROTIME-INR Routine 08/10/2022 documented in this encounter Results * (ABNORMAL) Protime-INR (08/10/2022) INR 2.60(A) 0.9 - 1.1 EXTERNAL LAB Blood us Historical Provider LAB BLOOD ORDERABLES Jennifer doran Result EXTERNAL LAB documented in this encounter Visit Diagnoses Not on filedocumented in this encounter Care Teams Backend Java Developer Relationship Specialty Start Date End Date Jovita Bermudez MD PCP - General Family Medicine 12/14/20 Zan Lee MD Surgeon Neurosurgery 01/02/19 documented as of this encounter
--- OUTSIDE RECORDS SUMMARY | 2024-08-30 18:56 | XMS_ITS | Encounter Summary ---
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 Gender Identity Not on file Sexual Orientation Not on file documented as of this encounter Plan of Treatment Not on file documented as of this encounter Procedures Procedure Name Priority Date/Time Associated Diagnosis Comments PROTIME-INR Routine 12/10/2023 documented in this encounter Results * (ABNORMAL) Protime-INR (12/10/2023) INR 1.80(A) 0.9 - 1.1 EXTERNAL LAB Blood us Historical Provider LAB BLOOD ORDERABLES Jennifer doran Result EXTERNAL LAB documented in this encounter Visit Diagnoses Not on filedocumented in this encounter Care Teams Telephone Switchboard Operator Relationship Specialty Start Date End Date Jovita Bermudez MD PCP - General Family Medicine 12/14/20 Zan Lee MD Surgeon Neurosurgery 01/02/19 documented as of this encounter
--- OUTSIDE RECORDS SUMMARY | 2024-08-30 18:56 | XMS_ITS | Encounter Summary ---
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 Gender Identity Not on file Sexual Orientation Not on file documented as of this encounter Plan of Treatment Not on file documented as of this encounter Procedures Procedure Name Priority Date/Time Associated Diagnosis Comments SCAN - LABS 12/10/2023 documented in this encounter Results * SCAN - LABS (12/10/2023) us Provider Scanning Final Result documented in this encounter Visit Diagnoses Not on filedocumented in this encounter Care Teams Gear Cutting Machine Set Up Operator Relationship Specialty Start Date End Date Jovita Bermudez MD PCP - General Family Medicine 12/14/20 Zan Lee MD Surgeon Neurosurgery 01/02/19 documented as of this encounter
--- OUTSIDE RECORDS SUMMARY | 2024-08-30 18:56 | XMS_ITS | Encounter Summary ---
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 Contact: STANT STRENGTH COACH * Telephone Encounter - Bree Walsh RN - 08/14/2023 3:11 PM CST Forms refaxed STANT STRENGTH COACH * Telephone Encounter - Anne-Marie Duenas - 08/14/2023 12:06 PM CST Halima wallace from [employer] wanting to know if Dr. Trejo signed prescription for oxygen. Contact: STANT STRENGTH COACH documented in this encounter Plan of Treatment Not on file documented as of this encounter Visit Diagnoses Not on filedocumented in this encounter Care Teams Chrome Tanning Drum Operator Relationship Specialty Start Date End Date Jovita Bermudez MD PCP - General Family Medicine 12/14/20 Zan Lee MD Surgeon Neurosurgery 01/02/19 documented as of this encounter
--- OUTSIDE RECORDS SUMMARY | 2024-08-30 18:56 | XMS_ITS | Encounter Summary ---
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 Gender Identity Not on file Sexual Orientation Not on file documented as of this encounter Plan of Treatment Not on file documented as of this encounter Procedures Procedure Name Priority Date/Time Associated Diagnosis Comments PROTIME-INR Routine 11/02/2023 documented in this encounter Results * (ABNORMAL) Protime-INR (11/02/2023) INR 1.80(A) 0.9 - 1.1 EXTERNAL LAB Blood us Historical Provider LAB BLOOD ORDERABLES Jennifer doran Result EXTERNAL LAB documented in this encounter Visit Diagnoses Not on filedocumented in this encounter Care Teams Stave Cutting Supervisor Relationship Specialty Start Date End Date Jovita Bermudez MD PCP - General Family Medicine 12/14/20 Zan Lee MD Surgeon Neurosurgery 01/02/19 documented as of this encounter
--- OUTSIDE RECORDS SUMMARY | 2024-08-30 18:56 | XMS_ITS | Encounter Summary ---
Author Organization [facility] Healthcare Address [address] [place] [address] Care Team Providers Care Real Estate Attorney Name Role Phone Zan Lee MD Unavailable [phone] Jovita Bermudez MD Primary Care Provider [phone] Reason for Visit * Reason Comments Hospital Follow Up Encounter Details Date Type Department Care Team (Late st Contact Info) Description 02/27/2024 9:00 AM CDT Office Visit [facility] Cardiology [address] [place] [address] Rianna Alegria NP [address] [facility] [address] [place], [place] [id number] Typical atrial flutter (CMS/HCC) (HCC) (Primary Dx); Hypertension associated with diabetes (HCC); Coronary artery disease involving [place] coronary artery of napaki[place] heart without angina pectoris; Chronic anticoagulation; Persistent atrial fibrillation (HCC) Social History Tobacco Use Types Packs/Day [...] on file 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 Gender Identity Not on file Sexual Orientation Not on file documented as of this encounter Last Filed Vital Signs Vital Sign Reading Time Taken Comments Blood Pressure 122/80 02/27/2024 8:49 AM CDT Pulse 115 02/27/2024 8:49 AM CDT Temperature - - Respiratory Rate - - Oxygen Saturation 92% 02/27/2024 8:49 AM CDT Inhaled Oxygen Concentration - - Weight 97.5 kg (215 lb) 02/27/2024 8:49 AM CDT Height 165.1 cm (5' 5 ) 02/27/2024 8:49 AM CDT Body Mass Index 35.78 02/27/2024 8:49 AM CDT documented in this encounter Ordered Prescriptions Prescription Sig Dispense Quantity Refills Last Filled Start Date End Date dilTIAZem CD/XR/XT (CARDIZEM CD,DILACOR XR) 120 mg 24 hr capsuleIndications :Typical atrial flutter (CMS/HCC) (HCC) Take 1 capsule (120 mg total) by mouth daily 30 capsule 11 02/27/2024 documented in this encounter Progress Notes * Rianna Alegria NP - 02/27/2024 9:00 AM CDT [facility] Cardiology [address] [place] [address] Date of Visit: 02/27/2024 Patient ID: Tressa Myers 1955 Chief Complaint: Tressa Myers is a 69 y.o. female who comes to the office for a hospital follow up for atrial flutter. History of Present Illness: Tressa Myers is a 69 y.o. female with a past medical history of coronary artery disease s/p CABGin 2013, with postoperative AFib, history of TIA with subsequent bilateral carotid artery intervention (left carotid stent December 2018 and right CEA May 2019 Dr Lee), HTN, HLD, DM, remote tobacco use, marijuana use, high risk for AMOR. She was previously followed by cascade operator Dr. Nunn but had not seen him in about 2 years. She presented to [facility] on 09/07/2020 with complaint of progressively worsening shortness of breath and orthopnea for the past 3 weeks. She had eventually began sleeping in a recliner. On presentation she was found to be in AFib with RVR. Dr. Trejo met herin consultation. Her echocardiogram showed moderately reduced LV systolic dysfunction with EF estimated 35%, hypokinesis of the apical lateral and mid inferolateral woodward, moderately enlarged RV withmoderately reduced RV systolic function, moderate LAE, severe VIRIDIANA, aortic valve calcification with mildly restricted motion of the right cusp, severely calcified mitral valve annulus, mild TR, PASP 39 mmHg. 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 There was also large intramural plaque versus thrombus in the ascending aorta. Therefore subsequent CTA of the chest showed mild aortic atherosclerosis, no aneurysm or dissection and also a 10 mm left lower lobe nodule. Obviously because of the thrombus, cardioversion was not performed. She was ultimately discharged with metoprolol succinate 100mg daily and anticoagulated with Eliquis 5 mg [...] and she ask for the information for [facility]. She feels quite tired [...] evidence ASD, moderate to severe TR and [id number] MR. Dr. Trejo recommended switching from Eliquis [...] in R leg with bruising admitted to [facility] 11/26/20 INR elevated at 8.1 better now. [...] CAT visit - she was hospitalized at [facility] in [place] for pneumonia and pyelonephritis 2 weeks ago. [...] does not reveal. Pt recently admitted to [facility] for pneumonia feeling a lot better [...] on Ozempic. See ROS for pertinent negatives. 02/27/2024 Hospital follow-up with DIRECTOR CASE - Tressazuhair Myers comes to the office today for a hospital follow up visit. She was seen in the emergency department at [facility] on 01/16/24 for atrial flutter. She was not having any symptoms at the time but she was seen by her primary care doctor who noted that she was tachycardic and advised her to go to the emergency department. She was given an extradose of metoprolol in the emergency room which slowed her heart rate down but she states she was not discharged on an increased dose of metoprolol. She also had a visit to [facility] because she was feeling weak and short of breath. She states she was diagnosed with a UTI at that time and was placed on antibiotics. She denies feeling any palpitations, chest pain, having any swelling. She does have intermittent edema and she has baseline shortness of breath. Records that I personally reviewed on the day of this visit include: (the interpretation is outlined in the HPI above) Records from the above mentioned hospital admission. I have also reviewed: allergies, current medications, past family history, past medical history, past social history, past surgical history and problem list Review of Systems Constitutional: Negative for fever, malaise/fatigue, night sweats, weight gain and weight loss. HENT: Negative for hearing loss. Eyes: Negative for blurred vision and visual disturbance. Cardiovascular: Positive for leg swelling. Negative for chest pain, claudication, dyspnea on exertion, irregular heartbeat, near-syncope, orthopnea, palpitations, paroxysmal nocturnal dyspnea and syncope. Respiratory: Positive for shortness of breath. Negative for sleep disturbances due to breathing, snoring and wheezing. Hematologic/Lymphatic: Negative for bleeding problem. Musculoskeletal: Negative for muscle cramps and muscle weakness. Gastrointestinal: Negative for abdominal pain, change in bowel habit, diarrhea, nausea and vomiting. Genitourinary: Negative for hematuria. Neurological: Negative for dizziness and headaches. Vital Signs: BP 122/80 (BP Location: Left arm, Patient Position: Sitting) Pulse 115 Ht 165.1 cm (5' 5 ) Wt97.5 kg (215 lb) SpO2 92% BMI 35.78 kg/m?? Body mass index is 35.78 kg/m??. Physical Exam Vitals reviewed. Constitutional: General: She is not in acute distress. Appearance: She is obese. HENT: Head: Normocephalic and atraumatic. Eyes: Extraocular Movements: Extraocular movements intact. Conjunctiva/sclera: Conjunctivae normal. Cardiovascular: Rate and Rhythm: Tachycardia present. Rhythm irregular. Heart sounds: Normal heart sounds. Pulmonary: Effort: Pulmonary effort is normal. No respiratory distress. Breath sounds: Normal breath sounds. Abdominal: General: Bowel sounds are normal. Palpations: Abdomen is soft. Musculoskeletal: General: Normal range of motion. Cervical back: Normal range of motion and neck supple. Right lower leg: No edema. Left lower leg: No edema. Skin: General: Skin is warm and dry. Neurological: Mental Status: She is alert and oriented to person, place, and time. Allergies Allergen Reactions Cefazolin Rash and Wheezing Lisinopril Cough Current Outpatient Medications: ascorbic acid (VITAMIN C) 500 mg tablet,chewable, Take 1 tablet/chew tab (500 mg total) by mouth nightly, Disp: , Rfl: aspirin 81 mg enteric coated tablet, Take 1 tablet (81 mg total) by mouth nightly, Disp: , Rfl: cholecalciferol, vitamin D3, (VITAMIN D3 ORAL), Take by mouth, Disp: , Rfl: docusate sodium (COLACE) 100 mg capsule, TAKE 1 CAPSULE BY MOUTH EVERY 12 HOURS NEEDED FOR CONSTIPATION, Disp: , Rfl: furosemide (LASIX) 40 mg tablet, TAKE ONE TABLET BY MOUTH EVERY DAY(SWELLING AND/ OR FOR SHORTNESS OF BREATH), Disp: 90 tablet, Rfl: 0 gabapentin (NEURONTIN) 600 mg tablet, , Disp: , Rfl: glipiZIDE (GLUCOTROL) 5 mg tablet, TAKE 1/2 TABLET BY MOUTH DAILY, AFTER BREAKFAST, Disp: , Rfl: Jardiance 25 mg tablet, Take 1 tablet (25 mg total) by mouth daily, Disp: , Rfl: levoFLOXacin (LEVAQUIN) 500 mg tablet, Take 1 tablet (500 mg total) by mouth daily, Disp: , Rfl: levothyroxine (SYNTHROID, LEVOTHROID) 75 mcg tablet, Take 1 tablet (75 mcg total) by mouth rougher merchant mill before breakfast, Disp: , Rfl: 3 losartan (COZAAR) 25 mg tablet, TAKE ONE TABLET BY MOUTH EVERY DAY, Disp: 30 tablet, Rfl: 11 magnesium aspart,citrate,oxide 400 mg magnesium capsule, Take by mouth, Disp: , Rfl: metFORMIN (GLUCOPHAGE) 1,000 mg tablet, Take 1 tablet (1,000 mg total) by mouth 2 (two) times a daywith meals, Disp: , Rfl: 3 metoprolol XL (TOPROL-XL) 100 mg 24 hr tablet, TAKE TWO TABLETS BY MOUTH EVERY DAY, Disp: 180 tablet, Rfl: 2 PARoxetine (PAXIL) 40 mg tablet, Take 0.5 tablets (20 mg total) by mouth every morning, Disp: , Rfl: simvastatin (ZOCOR) 40 mg tablet, TAKE ONE TABLET BY MOUTH EVERY DAY AT NIGHT, Disp: 90 tablet, Rfl: 1 SITagliptin (JANUVIA) 100 mg tablet, Take 1 tablet (100 mg total) by mouth nightly, Disp: , Rfl: traMADoL (ULTRAM) 50 mg tablet, , Disp: , Rfl: warfarin (COUMADIN) 2 mg tablet, TAKE ONE TABLET BY MOUTH TWICE A DAY, Disp: 60 tablet, Rfl: 0 dilTIAZem CD/XR/XT (CARDIZEM CD,DILACOR XR) 120 mg 24 hr capsule, Take 1 capsule (120 mg total) by mouth daily, Disp: 30 capsule, Rfl: 11 Ozempic 0.25 mg or 0.5 mg (2 mg/3 mL) pen injector injection, INJECT 0.25 MG SUBCUTANEOUSLY ONCE WEEKLY (Patient not taking: Reported on 02/27/2024), Disp: , Rfl: Lab Results Component Value Date POTASSIUM 4.0 06/04/2019 BUNSER 10 06/04/2019 CREATININE 0.39 (L) 06/04/2019 CHOL 151 12/30/2018 TRIG 135 12/30/2018 LDL 15 02/23/2014 LDLCALC 85 12/30/2018 HDL 39 (L) 12/30/2018 Assessment: Diagnoses and all orders for this visit: Typical atrial flutter (CMS/HCC) (HCC) (Primary) - dilTIAZem CD/XR/XT (CARDIZEM CD,DILACOR XR) 120 mg 24 hr capsule; Take 1 capsule (120 mg total) by mouth daily Hypertension associated with diabetes (HCC) Coronary artery disease involving [place] coronary artery of [place] heart without angina pectoris Chronic anticoagulation Persistent atrial fibrillation (HCC) Recent emergency room visit for tachycardia and was found to be in atrial flutter. Rate controlled with additional metoprolol but per patient report not discharged on increased dose of metoprolol or any additional medications. Remains mildly tachycardic in the office today but is asymptomatic. Given underlying risk factors, rhythm control may be difficult, however will have her follow up with to discuss possible route sales manager management strategies. Of course this is complicated by her persistent atrial thrombus which has precluded DCCV in the past. For now, will add Diltiazem 120mg daily to the metoprolol 200mg daily (EF 50-55% by most recent echo). I instructed her to keep a BP andHR log at home. Blood pressure is at goal Stable, no anginal symptoms. Continue ASA, statin, and aggressive risk factor modification. On coumadin, INR managed by our office. She is generally therapeutic with her INR She should return to the office to see Dr. Damon in 4 months or earlier if needed. Rianna Alegria ANP- Nurse Practitioner with [facility] [facility] Cardiology This note is dictated and transcribed using STYLHUNT Direct Software. Diplomatic Courier variancesmay occur. Despite proofreading, typographical errors may occur. documented in this encounter Plan of Treatment Not on file documented as of this encounter Visit Diagnoses Diagnosis Typical atrial flutter (CMS/HCC) (HCC)- Primary Hypertension associated with diabetes (HCC) Unspecified essential hypertension Coronary artery disease involving [place] coronary artery of [place] heart without angina pectoris Chronic anticoagulation Encounter for long-term (current) use of anticoagulants Persistent atrial fibrillation (HCC) Atrial fibrillation documented in this encounter Historical Medications * This list may reflect changes made after this encounter. magnesium aspart,citrate,o xide 400 mg magnesium capsule Take by mouth docusate sodium (COLACE) 100 mg capsule TAKE 1 CAPSULE BY MOUTH EVERY 12 HOURS NEEDED FOR CONSTIPATION 02/02/2024 levoFLOXacin (LEVAQUIN) 500 mg tablet Take 1 tablet (500 mg total) by mouth daily 02/02/2024 glipiZIDE (GLUCOTROL) 5 mg tablet TAKE 1/2 TABLET BY MOUTH DAILY, AFTER BREAKFAST 12/26/2023 Jardiance 25 mg tablet Take 1 tablet (25 mg total) by mouth daily added in this encounter Care Teams Real Estate Attorney Relationship Specialty Start Date End Date Jovita Bermudez MD PCP - General Family Medicine 12/14/20 Zan Lee MD Surgeon Neurosurgery 01/02/19 documented as of this encounter
--- OUTSIDE RECORDS SUMMARY | 2024-08-30 18:56 | XMS_ITS | Encounter Summary ---
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 Gender Identity Not on file Sexual Orientation Not on file documented as of this encounter Plan of Treatment Not on file documented as of this encounter Procedures Procedure Name Priority Date/Time Associated Diagnosis Comments PROTIME-INR Routine 11/07/2022 documented in this encounter Results * (ABNORMAL) Protime-INR (11/07/2022) INR 2.40(A) 0.9 - 1.1 EXTERNAL LAB Blood us Historical Provider LAB BLOOD ORDERABLES Edit ed Result - Final EXTERNAL LAB documented in this encounter Visit Diagnoses Not on filedocumented in this encounter Care Teams Therapeutic Recreation Leader Relationship Specialty Start Date End Date Jovita Bermudez MD PCP - General Family Medicine 12/14/20 Zan Lee MD Surgeon Neurosurgery 01/02/19 documented as of this encounter
--- OUTSIDE RECORDS SUMMARY | 2024-08-30 18:56 | XMS_ITS | Encounter Summary ---
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 Gender Identity Not on file Sexual Orientation Not on file documented as of this encounter Ordered Prescriptions Prescription Sig Dispense Quantity Refills Last Filled Start Date End Date losartan (COZAAR) 25 mg tabletIndications: Cardiomyopathy, unspecified type (HCC) Take 1 tablet (25 mg total) by mouth daily 90 tablet 3 04/03/2024 metoprolol XL (TOPROL-XL) 100 mg 24 hr tabletIndications: Persistent atrial fibrillation (HCC) Take 2 tablets (200 mg total) by mouth daily 180 tablet 3 04/03/2024 furosemide (LASIX) 40 mg tabletIndications: Chronic HFrEF (heart failure with reduced ejection fraction) (CMS/HCC) (HCC) Take 1 tablet (40 mg total) by mouth daily 90 tablet 3 04/03/2024 dilTIAZem CD/XR/XT (CARDIZEM CD,DILACOR XR) 120 mg 24 hr capsuleIndications :Typical atrial flutter (CMS/HCC) (HCC) Take 1 capsule (120 mg total) by mouth daily 90 capsule 3 04/03/2024 5 warfarin (COUMADIN) 2 mg tablet Take 4 mg po on Sun, Sun, , Sat 32 tablet 04/07/2024 4 simvastatin (ZOCOR) 40 mg tablet Take 1 tablet (40 mg total) by mouth nightly 90 tablet 3 04/03/2024 4 documented in this encounter Miscellaneous Notes * Telephone Encounter - Lyle Urbina MA - 04/07/2024 2:18 PM CDT Spoke to [facility] and they have received the refills except for the warfarin. Warfarin approved byCT. Patient notified. * Addendum Note - Lyle Urbina MA - 04/07/2024 9:48 AM CDTAddended by: LYLE URBINA on: 04/07/2024 09:48 AM Modules accepted: Orders * Addendum Note - Lyle Urbina MA - 04/07/2024 9:46 AM CDTAddended by: LYLE URBINA on: 04/07/2024 09:46 AM Modules accepted: Orders * Telephone Encounter - Nila Mcdonald - 04/07/2024 8:30 AM CDT Pt still has not been able to get her refills. [facility] is stating that they didn't receive it. Please look into it and call pt back at [phone]. * Telephone Encounter - Lyle Urbina MA - 04/03/2024 2:35 PM CDT Patient notified that refills have been sent. * Telephone Encounter - Jenn Real - 04/03/2024 1:50 PM CDT Pt requesting a call back with an update on refill for warfarin as she is completely out. Contact:[phone] * Telephone Encounter - Anne-Marie Duenas - 04/03/2024 8:41 AM CDT Pt is completely out of Warfarin 2 mg and Diltiazem 120 mg. Please send to [facility] in [place], [place]. Awaiting the rest of her meds also be refilled to [facility] since [facility] is closing. Contact: * Telephone Encounter - Anne-Marie Duenas - 04/01/2024 4:02 PM CDT Patient requesting refill for all cardiac meds with 90 day supply. Please send to [facility] in [facility]. Thank you. Contact: documented in this encounter Plan of Treatment Not on file documented as of this encounter Visit Diagnoses Diagnosis Typical atrial flutter (CMS/HCC) (HCC) Chronic HFrEF (heart failure with reduced ejection fraction) (CMS/HCC) (HCC) Persistent atrial fibrillation (HCC) Atrial fibrillation Cardiomyopathy, unspecified type (HCC) documented in this encounter Discontinued Medications Medication Sig Discontinue Reason Start Date End Da te losartan (COZAAR) 25 mg tabletIndications:Cardio myopathy, unspecified type (HCC) TAKE ONE TABLET BY MOUTH EVERY DAY Reorder 04/19/2023 04/01/2024 metoprolol XL (TOPROL-XL) 100 mg 24 hr tabletIndications:Persis tent atrial fibrillation (HCC) TAKE TWO TABLETS BY MOUTH EVERY DAY Reorder 07/11/2023 04/01/2024 simvastatin (ZOCOR) 40 mg tablet TAKE ONE TABLET BY MOUTH EVERY DAY AT NIGHT Reorder 12/24/2023 04/01/2024 furosemide (LASIX) 40 mg tabletIndications:Chroni c HFrEF (heart failure with reduced ejection fraction) (CMS/HCC) (HCC) TAKE ONE TABLET BY MOUTH EVERY DAY(SWELLING AND/ OR FOR SHORTNESS OF BREATH) Reorder 02/12/2024 04/01/2024 dilTIAZem CD/XR/XT (CARDIZEM CD,DILACOR XR) 120 mg 24 hr capsuleIndications:Typic al atrial flutter (CMS/HCC) (HCC) Take 1 capsule (120 mg total) by mouth daily Reorder 02/27/2024 04/01/2024 warfarin (COUMADIN) 2 mg tablet TAKE ONE TABLET BY MOUTH TWICE A DAY Reorder 01/14/2024 04/07/2024 documented as of this encounter Care Teams Ultrasonic Cleaner Relationship Specialty Start Date End Date Jovita Bermudez MD PCP - General Family Medicine 12/14/20 Zan Lee MD Surgeon Neurosurgery 01/02/19 documented as of this encounter
--- OUTSIDE RECORDS SUMMARY | 2024-08-30 18:56 | XMS_ITS | Encounter Summary ---
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 Gender Identity Not on file Sexual Orientation Not on file documented as of this encounter Plan of Treatment Not on file documented as of this encounter Procedures Procedure Name Priority Date/Time Associated Diagnosis Comments PROTIME-INR Routine 01/04/2024 documented in this encounter Results * (ABNORMAL) Protime-INR (01/04/2024) INR 2.40(A) 0.9 - 1.1 EXTERNAL LAB Blood us Historical Provider LAB BLOOD ORDERABLES Jennifer doran Result EXTERNAL LAB documented in this encounter Visit Diagnoses Not on filedocumented in this encounter Care Teams Facilities Maintenance Supervisor Relationship Specialty Start Date End Date Jovita Bermudez MD PCP - General Family Medicine 12/14/20 Zan Lee MD Surgeon Neurosurgery 01/02/19 documented as of this encounter
--- OUTSIDE RECORDS SUMMARY | 2024-08-30 18:56 | XMS_ITS | Encounter Summary ---
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 Gender Identity Not on file Sexual Orientation Not on file documented as of this encounter Plan of Treatment Not on file documented as of this encounter Procedures Procedure Name Priority Date/Time Associated Diagnosis Comments PROTIME-INR Routine 07/03/2023 documented in this encounter Results * (ABNORMAL) Protime-INR (07/03/2023) INR 1.80(A) 0.9 - 1.1 EXTERNAL LAB Blood us Historical Provider LAB BLOOD ORDERABLES Jennifer doran Result EXTERNAL LAB documented in this encounter Visit Diagnoses Not on filedocumented in this encounter Care Teams Javascript Software Engineer Relationship Specialty Start Date End Date Jovita Bermudez MD PCP - General Family Medicine 12/14/20 Zan Lee MD Surgeon Neurosurgery 01/02/19 documented as of this encounter
--- OUTSIDE RECORDS SUMMARY | 2024-08-30 18:56 | XMS_ITS | Encounter Summary ---
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 us Historical Provider LAB BLOOD ORDERABLES Jennifer doran Result EXTERNAL LAB documented in this encounter Visit Diagnoses Not on filedocumented in this encounter Care Teams Dermatology Physician Relationship Specialty Start Date End Date Jovita Bermudez MD PCP - General Family Medicine 12/14/20 Zan Lee MD Surgeon Neurosurgery 01/02/19 documented as of this encounter
--- OUTSIDE RECORDS SUMMARY | 2024-08-30 18:56 | XMS_ITS | Encounter Summary ---
Author Organization [facility] Address [address] [place] [address] Care Team Providers Care Game Master Name Role Phone Zan Lee MD Unavailable [phone] Jovita Bermudez MD Primary Care Provider [phone] Encounter Details Date Type Department Care Team (Late st Contact Info) Description 12/06/2022 Orders Only [facility] Cardiology [address] [place] [address] Anderson Trejo MD [address] [facility] [address] [place] [id number] Social History Tobacco Use Types Packs/Day Years [...] on file Legal Sex Female 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 Gender Identity Not on file Sexual Orientation Not on file documented as of this encounter Plan of Treatment Not on file documented as of this encounter Procedures Procedure Name Priority Date/Time Associated Diagnosis Comments CARDIOLOGY DOCUMENT SCAN Routine 12/06/2022 documented in this encounter Results * Cardiology Document Scan (12/06/2022) Anatomical Region Laterality Modality Other us Anderson Trejo MD CV CARDIAC SERVICES PROC EDURES Final Result documented in this encounter Visit Diagnoses Not on filedocumented in this encounter Care Teams Game Master Relationship Specialty Start Date End Date Jovita Bermudez MD PCP - General Family Medicine 12/14/20 Zan Lee MD Surgeon Neurosurgery 01/02/19 documented as of this encounter
--- OUTSIDE RECORDS SUMMARY | 2024-08-30 18:56 | XMS_ITS | Encounter Summary ---
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 Gender Identity Not on file Sexual Orientation Not on file documented as of this encounter Plan of Treatment Not on file documented as of this encounter Procedures Procedure Name Priority Date/Time Associated Diagnosis Comments PROTIME-INR Routine 02/19/2023 documented in this encounter Results * (ABNORMAL) Protime-INR (02/19/2023) INR 2.10(A) 0.9 - 1.1 EXTERNAL LAB Blood us Historical Provider LAB BLOOD ORDERABLES Edit ed Result - Final EXTERNAL LAB documented in this encounter Visit Diagnoses Not on filedocumented in this encounter Care Teams Finance Intern Relationship Specialty Start Date End Date Jovita Bermudez MD PCP - General Family Medicine 12/14/20 Zan Lee MD Surgeon Neurosurgery 01/02/19 documented as of this encounter
--- OUTSIDE RECORDS SUMMARY | 2024-08-30 18:57 | XMS_ITS | Encounter Summary ---
Author Organization [facility] Address 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 Gender Identity Not on file Sexual Orientation Not on file documented as of this encounter Plan of Treatment Not on file documented as of this encounter Procedures Procedure Name Priority Date/Time Associated Diagnosis Comments PROTIME-INR Routine 12/27/2020 documented in this encounter Results * (ABNORMAL) Protime-INR (12/27/2020) INR 2.50(A) 0.9 - 1.1 EXTERNAL LAB Blood specimen (specimen) us Historical Provider LAB BLOOD ORDERABLES Jennifer doran Result EXTERNAL LAB documented in this encounter Visit Diagnoses Not on filedocumented in this encounter Care Teams Manager Installation Relationship Specialty Start Date End Date Jovita Bermudez MD PCP - General Family Medicine 12/14/20 Zan Lee MD Surgeon Neurosurgery 01/02/19 documented as of this encounter
--- OUTSIDE RECORDS SUMMARY | 2024-08-30 18:57 | XMS_ITS | Encounter Summary ---
Author Organization [facility] Address [address] [place] [address] Care Team Providers Care Social And Human Services Assistant Name Role Phone Zan Lee MD Unavailable [phone] Jovita Bermudez MD Primary Care Provider [phone] Encounter Details Date Type Department Care Team (Late st Contact Info) Description 12/14/2021 Orders Only [facility] Cardiology [address] [place] [address] Anderson Trejo MD [address] [facility] [address] [place] [id number] Social History Tobacco Use Types Packs/Day Years [...] on file 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 Gender Identity Not on file Sexual Orientation Not on file documented as of this encounter Plan of Treatment Not on file documented as of this encounter Procedures Procedure Name Priority Date/Time Associated Diagnosis Comments CARDIOLOGY DOCUMENT SCAN Routine 12/14/2021 documented in this encounter Results * Cardiology Document Scan (12/14/2021) Anatomical Region Laterality Modality Other us Anderson Trejo MD CV CARDIAC SERVICES PROC EDURES Final Result documented in this encounter Visit Diagnoses Not on filedocumented in this encounter Care Teams Social And Human Services Assistant Relationship Specialty Start Date End Date Jovita Bermudez MD PCP - General Family Medicine 12/14/20 Zan Lee MD Surgeon Neurosurgery 01/02/19 documented as of this encounter
--- OUTSIDE RECORDS SUMMARY | 2024-08-30 18:57 | XMS_ITS | Encounter Summary ---
Author Organization [facility] Address [address] [place] [address] Care Team Providers Care Administrative Supervisor Name Role Phone Zan Lee MD Unavailable [phone] Jovita Bermudez MD Primary Care Provider [phone] Encounter Details Date Type Department Care Team (Late st Contact Info) Description 12/27/2021 Telephone [facility] Cardiology [address] [place] [address] Anderson Trejo MD [address] [facility] [address] [place] [id number] Social History Tobacco Use Types Packs/Day Years [...] on file 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 * Telephone Encounter - Anne-Marie Rodríguez - 12/27/2021 3:18 PM CDT Nam called from [facility] states pt is requesting refill for Simvastatin 40 mg. Contact: documented in this encounter Plan of Treatment Not on file documented as of this encounter Visit Diagnoses Not on filedocumented in this encounter Discontinued Medications Medication Sig Discontinue Reason Start Date End Da te simvastatin (ZOCOR) 40 mg tablet Take 40 mg by mouth nightly Reorder 12/27/2021 documented as of this encounter Care Teams Administrative Supervisor Relationship Specialty Start Date End Date Jovita Bermudez MD PCP - General Family Medicine 12/14/20 Zan Lee MD Surgeon Neurosurgery 01/02/19 documented as of this encounter
--- OUTSIDE RECORDS SUMMARY | 2024-08-30 18:57 | XMS_ITS | Encounter Summary ---
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 Gender Identity Not on file Sexual Orientation Not on file documented as of this encounter Plan of Treatment Not on file documented as of this encounter Procedures Procedure Name Priority Date/Time Associated Diagnosis Comments PROTIME-INR Routine 02/21/2022 documented in this encounter Results * (ABNORMAL) Protime-INR (02/21/2022) INR 2.10(A) 0.9 - 1.1 EXTERNAL LAB Blood specimen (specimen) us Historical Provider LAB BLOOD ORDERABLES Jennifer doran Result EXTERNAL LAB documented in this encounter Visit Diagnoses Not on filedocumented in this encounter Care Teams Conversion Worker Relationship Specialty Start Date End Date Jovita Bermudez MD PCP - General Family Medicine 12/14/20 Zan Lee MD Surgeon Neurosurgery 01/02/19 documented as of this encounter
--- OUTSIDE RECORDS SUMMARY | 2024-08-30 18:57 | XMS_ITS | Encounter Summary ---
Author Organization [facility] Address [address] [place] [address] Care Team Providers Care Sheet Tester Name Role Phone Zan Lee MD Unavailable [phone] Jovita Bermudez MD Primary Care Provider [phone] Reason for Referral * Cardiology (Routine) - Closed Specialty Diagnoses / Procedures Referred By Contac t Referred To Contact Diagnoses Paroxysmal atrial flutter (CMS/HCC) (HCC) Procedures ECG 12 lead Lovely Nuñez NP [address] [address] Phone: tel: fax: [facility] Referral ID Status Reason Start Date Expiration Date Visits Re quested Visits Authorized [id number] Closed 06/24/2021 07/24/2022 1 1 Reason for Visit * Reason Comments Hospital Follow Up Atrial Fibrillation * Consultation (Routine) - Closed Specialty Diagnoses / Procedures Referred By Contac t Referred To Contact Cardiology Diagnoses Coronary atherosclerosis of [place] coronary artery Jovita Bermudez MD Phone: tel: fax: [facility] Cardiology [address] [place] [address] Phone: tel: fax: Referral ID Status Reason Start Date Expiration Date V isits Requested Visits Authorized [id number] Closed Specialty Services Required 12/14/2020 12/09/2021 12 12 Encounter Details Date Type Department Care Team (Late st Contact Info) Description 06/24/2021 2:00 PM CDT Office Visit [facility] Cardiology [address] [place] [address] Lovely Nuñez NP [address] [place] [address] Paroxysmal atrial flutter (CMS/HCC) (HCC) (Primary Dx); Dilated cardiomyopathy (CMS/HCC) (HCC); Persistent atrial fibrillation (HCC); Chronic anticoagulation; Thrombus of left atrial appendage; History of CVA (cerebrovascular accident); Hx of CABG; Coronary artery disease involving [place] coronary artery of [place] heart without angina pectoris Social History Tobacco Use Types Packs/Day Years [...] on file 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 Gender Identity Not on file Sexual Orientation Not on file documented as of this encounter Last Filed Vital Signs Vital Sign Reading Time Taken Comments Blood Pressure 90/54 06/24/2021 2:06 PM CDT Pulse 71 06/24/2021 2:06 PM CDT Temperature - - Respiratory Rate - - Oxygen Saturation 95% 06/24/2021 2:06 PM CDT Inhaled Oxygen Concentration - - Weight 98.4 kg (217 lb) 06/24/2021 2:06 PM CDT Height 165.1 cm (5' 5 ) 06/24/2021 2:06 PM CDT Body Mass Index 36.11 06/24/2021 2:06 PM CDT documented in this encounter Progress Notes * Lovely Nuñez NP - 06/24/2021 2:00 PM CDT Images from the original note were not included. [facility] Cardiology [address] [place] [address] Date of Visit: 06/24/2021 Patient ID: Tressa Myers 1955 Chief Complaint: Tressa Myers is a 66 y.o. female who is an established patient of Dr. Trejo returning to the office for follow-up of her atrial fibrillation and cardiomyopathy. History of Present Illness: Tressa Myers is a 66 y.o. female with a past medical history of coronary artery disease s/p CABGin 2013, with postoperative AFib, history of TIA with subsequent bilateral carotid artery intervention (left carotid stent December 2018 and right CEA May 2019 Dr Lee), HTN, HLD, DM, remote tobacco use, marijuana use, high risk for AMOR. She was previously followed by machine programmer Dr. Nunn but had not seen him in about 2 years. She presented to [facility] on 09/07/2020 with complaint of progressively worsening shortness of breath and orthopnea for the past 3 weeks. She had eventually began sleeping in a recliner. On presentation she was found to be in AFib with RVR. Dr. Trjeo met herin consultation. Her echocardiogram showed moderately reduced LV systolic dysfunction with EF estimated 35%, hypokinesis of the apical lateral and mid inferolateral woodward, moderately enlarged RV withmoderately reduced RV systolic function, moderate LAE, severe VIRIDIANA, aortic valve calcification with mildly restricted motion of the right cusp, severely calcified mitral valve annulus, mild TR, PASP 39 mmHg. Subsequent RANDALL showed a large loose organized thrombus in the left atrial appendage, a smallASD, moderate to severe TR and pkmo-mu-mhecssmm MR. There was also large intramural plaque [...] and she ask for the information for [facility]. She feels quite tired [...] with Eliquis. 10/28/20 CAT visit-Dr. Trejo performed RANDALL on October 19 which still showed a large loosely organized thrombus in the left atrial appendage extending into the left atrium. The left atrium looked moderate to severely enlarged. LV systolic function was still moderately to severely reduced with EF estimated 30%. Right atrium was also severely enlarged and there was still evidence ASD, moderate to severe TR and zacw-cn-katiobsc MR. Dr. Trejo recommended switching from Eliquis to warfarin. Patient took her 1st dose of warfarin a week ago and went to the lab today for her 1st INR. Today she has no specific complaints or concerns. ECG showed atrial fibrillation with variable ventricular response, rate 94 beats per minute. 12/14/20 Had J&J shot. Had swelling in R leg with bruising admitted to [facility] 11/26/20 INR elevated at 8.1 better now. [...] CAT visit - she was hospitalized at [facility] in [place] for pneumonia and pyelonephritis 2 weeks ago. [...] ventricular response, rate 74 beats per minute Records that I personally reviewed on the day of this visit include: (the interpretation is outlined in the HPI above) 05/16/2021 office note from myself, 06/11/2021 [facility]'s discharge summary, 06/14/2021 officenote from PCP, today's ECG. I have also reviewed: allergies, current medications, past family history, past medical history, past social history, past surgical history and problem list Review of Systems Constitutional: Negative for diaphoresis, fever, malaise/fatigue, weight gain and weight loss. HENT: Negative for hearing loss. Eyes: Negative for visual disturbance. Cardiovascular: Negative for chest pain, claudication, dyspnea on exertion, leg swelling, orthopnea, palpitations, paroxysmal nocturnal dyspnea and syncope. Respiratory: Negative for cough, hemoptysis, shortness of breath, snoring and wheezing. Hematologic/Lymphatic: Does not bruise/bleed easily. Skin: Positive for rash. Negative for itching and poor wound healing. Musculoskeletal: Negative for joint pain and myalgias. Gastrointestinal: Negative for heartburn, nausea and vomiting. Genitourinary: Negative for hematuria. Neurological: Negative for dizziness, headaches and light-headedness. Psychiatric/Behavioral: Negative for depression. The patient is not nervous/anxious. Vital Signs: BP 90/54 (BP Location: Left arm, Patient Position: Sitting) Pulse 71 Ht 165.1 cm (5' 5 ) Wt 98.4 kg (217 lb) SpO2 95% BMI 36.11 kg/m?? Physical Exam Constitutional: General: She is not in acute distress. Appearance: She is well-developed. Comments: Obese HENT: Head: Normocephalic and atraumatic. Nose: Nose normal. Eyes: General: No scleral icterus. Conjunctiva/sclera: Conjunctivae normal. Pupils: Pupils are equal, round, and reactive to light. Neck: Vascular: No JVD. Trachea: No tracheal deviation. Cardiovascular: Rate and Rhythm: Normal rate and regular rhythm. Heart sounds: Normal heart sounds. No murmur heard. Pulmonary: Effort: Pulmonary effort is normal. No respiratory distress. Breath sounds: Normal breath sounds. No wheezing. Abdominal: General: Bowel sounds are normal. Palpations: Abdomen is soft. Tenderness: There is no abdominal tenderness. Musculoskeletal: General: Normal range of motion. Cervical back: Normal range of motion. Right lower leg: No edema. Left lower leg: No edema. Skin: General: Skin is warm and dry. Neurological: Mental Status: She is alert and oriented to person, place, and time. Allergies Allergen Reactions ??? Cefazolin Rash and Wheezing ??? Lisinopril Cough Current Outpatient Medications: ??? ascorbic acid (ascorbic acid with dee hips) 500 mg tablet,chewable, Take 500 mg by mouth nightly, Disp: , Rfl: ??? aspirin 81 mg enteric coated tablet, Take 81 mg by mouth nightly , Disp: , Rfl: ??? celecoxib (CeleBREX) 200 mg capsule, , Disp: , Rfl: ??? cholecalciferol, vitamin D3, (VITAMIN D3 ORAL), Take by mouth, Disp: , Rfl: ??? dilTIAZem CD/XR/XT (dilTIAZem CD) 120 mg 24 hr capsule, Take 120 mg by mouth daily, Disp: , Rfl: ??? empagliflozin (JARDIANCE) 10 mg tablet, TAKE 2 DAILY, Disp: , Rfl: ??? furosemide (LASIX) 40 mg tablet, Take 20 mg by mouth daily , Disp: , Rfl: ??? levothyroxine (SYNTHROID, LEVOTHROID) 75 mcg tablet, Take 75 mcg by mouth sponsorship coordinator before breakfast , Disp: , Rfl: 3 ??? losartan (COZAAR) 25 mg tablet, Take 1 tablet (25 mg total) by mouth daily (Patient taking differently: Take 50 mg by mouth daily ), Disp: 30 tablet, Rfl: 11 ??? metFORMIN (GLUCOPHAGE) 1,000 mg tablet, Take 1,000 mg by mouth 2 (two) times a day with meals ,Disp: , Rfl: 3 ??? metoprolol XL (TOPROL-XL) 100 mg 24 hr tablet, Take 2 tablets (200 mg total) by mouth daily, Disp: 60 tablet, Rfl: 5 ??? PARoxetine (PAXIL) 20 mg tablet, Take 40 mg by mouth every morning , Disp: , Rfl: ??? simvastatin (ZOCOR) 40 mg tablet, Take 40 mg by mouth nightly , Disp: , Rfl: ??? SITagliptin (JANUVIA) 100 mg tablet, Take 1 tablet by mouth nightly , Disp: , Rfl: ??? traMADoL (ULTRAM) 50 mg tablet, , Disp: , Rfl: ??? UNABLE TO FIND, Apple cider vinegar 450 mg - takes 2 daily, Disp: , Rfl: ??? warfarin (COUMADIN) 2 mg tablet, Take 2 tablets (4 mg total) by mouth daily Take 4mg daily or as directed by physician. (Patient taking differently: Take 3 mg by mouth daily Take 4mg daily or as directed by physician.), Disp: 60 tablet, Rfl: 11 Lab Results Component Value Date POTASSIUM 4.0 06/04/2019 BUNSER 10 06/04/2019 CREATININE 0.39 (L) 06/04/2019 CHOL 151 12/30/2018 TRIG 135 12/30/2018 LDL 15 02/23/2014 LDLCALC 85 12/30/2018 HDL 39 (L) 12/30/2018 12/14/2020 lipids: TC 132, HDL 45, TG 346, LDL 17 Assessment: Diagnoses and all orders for this visit: Paroxysmal atrial flutter (CMS/HCC) (HCC) (Primary) - ECG 12 lead; Future Dilated cardiomyopathy (CMS/HCC) (HCC) Persistent atrial fibrillation (HCC) Chronic anticoagulation Thrombus of left atrial appendage History of CVA (cerebrovascular accident) Hx of CABG Coronary artery disease involving [place] coronary artery of [place] heart without angina pectoris Plan/Recommendations: She has cardiomyopathy with EF 30-35% on echocardiogram earlier this year. She is not exhibiting any signs or symptoms of decompensated heart failure. When I saw her last month I reduced her losartanto 25 mg daily because she was hypotensive. I also asked her to schedule a new echo but she had notscheduled it yet. Continue losartan, metoprolol and furosemide. Return to the office for the echo and the next 7-10 days. Cardioversion was planned in February but she spontaneously converted to sinus rhythm. She reverted back to atrial fibrillation when she was sick with pneumonia and pyelonephritis. Her PCP added diltiazem for better rate control. Diltiazem may be contraindicated if her LV systolic function is still reduced. For now I will keep her on the diltiazem and we will see what her LVEF is when she has her echo and determine if it is safe to keep her on the diltiazem or not.. She is tolerating anticoagulation with warfarin to reduce her risk of stroke. She did have left atrial appendage thrombus seen earlier this year. Continue warfarin. We will reassess for the presence of the thrombus with her upcoming echo. If her next INR is therapeutic, we may set her up for a cardioversion. Continue ASA 81mg daily and simvastatin given carotid dz, CAD, CVA. Because of her cardiomyopathy, a new ischemic evaluation would be indicated, but we need to get the echocardiogram 1st. Keep the previously scheduled follow-up visit with Dr. Trejo in July. Call sooner with questions or concerns. JONI Salmon- Nurse Practitioner with [facility] This note is dictated and transcribed using [employer] Fluency Direct Software. Acquisitions Editor variancesmay occur. Despite proofreading, typographical errors may occur. Cosigned by Anderson Trejo MD at 06/24/2021 5:08 PM CDT documented in this encounter Plan of Treatment Not on file documented as of this encounter Results * ECG 12 lead (06/24/2021) us Lovely Nuñez NP ECG ORDERABLES Final Res ult documented in this encounter Visit Diagnoses Diagnosis Paroxysmal atrial flutter (CMS/HCC) (HCC)- Primary Dilated cardiomyopathy (CMS/HCC) (HCC) Other primary cardiomyopathies Persistent atrial fibrillation (HCC) Atrial fibrillation Chronic anticoagulation Encounter for long-term (current) use of anticoagulants Thrombus of left atrial appendage History of CVA (cerebrovascular accident) Transient ischemic attack (TIA), and cerebral infarction without residual deficits Hx of CABG Postsurgical aortocoronary bypass status Coronary artery disease involving [place] coronary artery of [place] heart without angina pectoris documented in this encounter Historical Medications * This list may reflect changes made after this encounter. dilTIAZem CD/XR/XT (CARDIZEM CD,DILACOR XR) 120 mg 24 hr capsule Take 120 mg by mouth daily 03/27/2023 added in this encounter Care Teams Sheet Tester Relationship Specialty Start Date End Date Jovita Bermudez MD PCP - General Family Medicine 12/14/20 Zan Lee MD Surgeon Neurosurgery 01/02/19 documented as of this encounter
--- OUTSIDE RECORDS SUMMARY | 2024-08-30 18:57 | XMS_ITS | Encounter Summary ---
Author Organization [facility] Medical Group Address [address] [place] [address] Care Team Providers Care Founder Name Role Phone Zan Lee MD Unavailable Jovita Bermudez MD Primary Care Provider [phone] Reason for Visit * Reason Comments Coronary Artery Disease 8 month fu Follow-up * Consultation (Routine) - Closed Specialty Diagnoses / Procedures Referred By Contac t Referred To Contact Cardiology Diagnoses Coronary atherosclerosis of bill moore's slough coronary artery Jovita Bermudez MD Phone: tel: fax: [facility] Medical [facility] Cardiology [address] [place] [address] Phone: tel: fax: Referral ID Status Reason Start Date Expiration Date V isits Requested Visits Authorized [id number] Closed Specialty Services Required 12/14/2020 12/09/2021 12 12 Encounter Details Date Type Department Care Team (Latest Contact Info) Description 08/24/2021 3:30 PM HAND SHOES SEWER Office Visit [facility] Cardiology [address] [place] [address] Anderson Trejo MD [address] [facility] [address] [facility] [place] [address] Persistent atrial fibrillation (HCC) (Primary Dx); Chronic HFrEF (heart failure with reduced ejection fraction) (CMS/HCC) (HCC); Dilated cardiomyopathy (CMS/HCC) (HCC); Coronary artery disease involving bill moore's slough coronary artery of bill moore's slough heart without angina pectoris; Hypertension associated with diabetes (HCC); 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 diabetes mellitus (CMS/HCC) (HCC); Thrombus of left atrial appendage; Bilateral carotid artery occlusion; Hx of CABG; Chronic anticoagulation; Tobacco abuse Social History Tobacco Use Types Packs/Day Years [...] on file Legal Sex Female 3:00 AM HAND SHOES SEWER Gender Identity Not on file Sexual Orientation Not on file documented as of this encounter Last Filed Vital Signs Vital Sign Reading Time Taken Comments Blood Pressure 114/62 08/24/2021 3:21 PM HAND SHOES SEWER Pulse 72 08/24/2021 3:21 PM HAND SHOES SEWER Temperature - - Respiratory Rate - - Oxygen Saturation - - Inhaled Oxygen Concentration - - Weight 100.2 kg (221 lb) 08/24/2021 3:21 PM HAND SHOES SEWER Height 165.1 cm (5' 5 ) 08/24/2021 3:21 PM HAND SHOES SEWER Body Mass Index 36.78 08/24/2021 3:21 PM HAND SHOES SEWER documented in this encounter Progress Notes * Anderson Trejo MD - 08/24/2021 3:30 PM CST Images from the original note were not included. DATE OF VISIT: 08/24/2021 CHIEF COMPLAINT Chief Complaint Patient presents with ??? Coronary Artery Disease 8 month fu ??? Follow-up ASSESSMENT Diagnoses and all orders for this visit: Persistent atrial fibrillation (HCC) (Primary) - ECG 12 lead Chronic HFrEF (heart failure with reduced ejection fraction) (CMS/HCC) (HCC) Dilated cardiomyopathy (CMS/HCC) (HCC) Coronary artery disease involving bill moore's slough coronary artery of bill moore's slough heart without angina pectoris Hypertension associated with diabetes (HCC) 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 diabetes mellitus (CMS/HCC) (HCC) Thrombus of left atrial appendage Bilateral carotid artery occlusion Hx of CABG Chronic anticoagulation Tobacco abuse PLAN/RECOMMENDATIONS 1. Stable, persistent A. Fib controlled now atrial [...] XL 200mg daily diltiazem 120 mg daily. -Plan for RANDALL/CV with Anesthesiology given more recent persistent atrial fibrillation now atrial flutter. Risks, benefits, alternatives explained in detail. They agreed. Will allow patient to recoverfor the next 1-2 weeks from her recent pneumonia prior to sedation and RADNALL. -Explained previous limitation with antiarrhythmic therapy due to STEVEN thrombus as well and that we are in an unfortunate holding pattern as I do not want to hold A/C with active intracardiac thrombusfor [facility] until we have observed resolution. Although we would generally like to avoid diltiazem given cardiomyopathy documented in significant improvement in EF reasonable. 2. NYHA class III sxs, well compensated HFrEF previously EF 30% improved EF 50- 55% by most recent echocardiogram June 2021. CHF counseling performed. Follow daily weight, less than 2 g daily sodium intake, medication compliance. Call w/ wt gain >3lb in 24 hrs or worsening edema and/or ALEXANDER. -Optimize GDMT. On Losartan and Toprol XL. Ideally, would prefer Entresto, however, pt had RAVEN-I cough with Lisinopril. -continue Jardiance. 3. BP controlled goal less than 130/80 mm Hg. Monitor BP on routine basis. Call with readings. Continue consistent cardiovascular exercise, weight loss, medication compliance, and low-sodium diet. -losartan 50 mg daily, Toprol XL 200 mg daily 4. Lipids personally reviewed 02/23/21 LDL 47, quite low, well controlled. Goal LDL <70. Continuestatin therapy and lifestyle modification. Continue simvastatin 40 mg at bedtime. 5. Compliance with CPAP for treatment of AMOR. 6. DM managed by PCP. 7. No anginal sxs. Aggressive CAD risk modification counseling performed. Continue current medical therapy. Notify office immediately with anginal symptoms. -ASA 81mg daily given carotid dz, CAD, CVA. Monitor for bleeding in combination with warfarin. -12 lead EKG today personally reviewed and discussed atrial flutter controlled ventricular response4:1 block 69 beats per minute QRS 100 milliseconds QT corrected 431 milliseconds abnormal EKG All questions answered to their satisfaction. Over 50% of this visit counseling atrial flutter/fibrillation, cardiomyopathy/CHF, CAD, HTN, lipids, medications, lifestyle modification. Follow up in the office in 2 months or sooner as needed. Thank you for allowing me the privilege of participating in the care this very pleasant patient. Please do not hesitate to contact me with any additional questions or concerns. DENIS Myers is a 66 y.o. female with a PMHx of coronary artery disease s/p CABG in 2013, with postoperative AFib, history of TIA with subsequent bilateral carotid artery intervention (left carotid stent December 2018 and right CEA May 2019 Dr Lee), HTN, HLD, DM, remote tobacco use, marijuana use, high risk for AMOR. She was previously followed by asphalt heater tender Dr. Nunn but had not seen him in about 2 years. She presented to [facility] on 09/07/2020 with complaint of progressively [...] small ASD, moderate to severe TR and [id number] MR. There was also large intramural plaque [...] 45.6, K 4.0, BUN 19, creatinine 0.6. ?? 09/24/20 HFU w/ CAT-she reports feeling a lot better. Breathing is more comfortable, orthopnea resolved. Her PCP wants her to pursue a sleep study and she ask for the information for [facility]. She feels quite tired [...] of applying for patient's assistance with Eliquis. ?? 10/28/20 CAT visit-Dr. Trejo performed RANDALL on [...] evidence ASD, moderate to severe TR and [id number] MR. Dr. Trejo recommended switching from Eliquis [...] in R leg with bruising admitted to [facility] 11/26/20 INR elevated at 8.1 better now. [...] with rapid ventricular response, rate 130 bpm. ?? 05/16/21 CAT visit - she came in [...] her weight gain to bad eating habits. ?? 06/24/21 CAT visit - she was hospitalized at [facility] in [place] for pneumonia and pyelonephritis 2 weeks ago. [...] ventricular response, rate 74 beats per minute ?? 08/24/21 Notes some ALEXANDER maybe worse past few days had to stop 2x walking in from parking lot. She blames on paralyzed diaphragm but CT chest does not reveal. Pt recently admitted to [facility] for pneumonia feeling a lot better CT chest 08/11/21 still SOB. She was ok before she thinks. No F, cough. No CP or palps. Virgilio Diltiazem nearly 3 months tolerating well. Had converted to SR previously wh ere she was scheduled for RANDALL so not performed. MEDICAL HISTORY Past Medical History: Diagnosis Date ??? Anxiety ??? Atrial fibrillation (CMS/HCC) (HCC) 09/07/2020 ??? Cardiac rhythm disturbance ??? Cardiomyopathy (HCC) 09/07/2020 ??? Carotid atherosclerosis ??? COPD (chronic obstructive pulmonary disease) (CMS/HCC) (HCC) ??? Diabetes mellitus (HCC) ??? Diaphragm paralysis ??? GERD (gastroesophageal reflux disease) ??? Heart failure (HCC) ??? Heart failure (HCC) ??? Heart failure (HCC) ??? History of other diseases of the circulatory system, not elsewhere classified Coronary Artery Disease - Was having SOB outpatient. Had stress echo/EKG outpatient 05/07/13, 1.[address] segment depression noted inferiorly and [address] segment depression noted laterally; EF60-65%, hypokinesis of the distal septum, probably diastolic dysfunction. LHC (05/07/13) (1) Qthgpyh05% narrowings from proximal to distal RCA (2) R large PDA with 50% near ostial narrowing, (3) * ??? Hyperlipidemia ??? Hypertension ??? Hypothyroidism ??? Obesity ??? AMOR (obstructive sleep apnea) 02/17/2021 ??? Paroxysmal atrial flutter (CMS/HCC) (HCC) ??? Personal history of other diseases of the circulatory system History of hypertension - (Added by TW Conv) ??? Personal history of other diseases of the digestive system History of esophageal reflux - (Added by TW Conv) ??? Personal history of other mental and behavioral disorders History of anxiety disorder - (Added by TW Conv) ??? Stroke (CMS/HCC) (HCC) ??? Type 2 diabetes mellitus (HCC) ??? Wears dentures SOCIAL HISTORY reports that she [...] mother. MEDICATIONS HOME MEDICATIONS : ascorbic acid (ascorbic acid with dee hips) 500 mg tablet,chewable aspirin 81 mg enteric coated tablet cholecalciferol, vitamin D3, (VITAMIN D3 ORAL) dilTIAZem CD/XR/XT (dilTIAZem CD) 120 mg 24 hr capsule empagliflozin (JARDIANCE) 10 mg tablet furosemide (LASIX) 40 mg tablet levothyroxine (SYNTHROID, LEVOTHROID) 75 mcg tablet losartan (COZAAR) 25 mg tablet metFORMIN (GLUCOPHAGE) 1,000 mg tablet metoprolol XL (TOPROL-XL) 100 mg 24 hr tablet PARoxetine (PAXIL) 20 mg tablet simvastatin (ZOCOR) 40 mg tablet SITagliptin (JANUVIA) 100 mg tablet UNABLE TO FIND warfarin (COUMADIN) 2 mg tablet celecoxib (CeleBREX) 200 mg capsule traMADoL (ULTRAM) 50 mg tablet ALLERGIES Allergies Allergen Reactions ??? Cefazolin Rash and Wheezing ??? Lisinopril Cough REVIEW OF SYSTEMS Review of [...] and are negative. PHYSICAL EXAM Vitals BP 114/62 (BP Location: Right arm, Patient Position: Sitting) Pulse 72 Ht 165.1 cm (5' 5 ) Wt 100.2 kg (221 lb) BMI 36.78 kg/m?? Weight: 100.2 kg (221 lb) Height: 165.1 cm (5' 5 ) Body mass index is 36.78 kg/m??. Physical Exam Vitals reviewed. Constitutional: General: [...] No edema. Left lower leg: No edema. Comments: Bruising around R knee resolving, trace RLE edema Lymphadenopathy: Cervical: No cervical adenopathy. Skin: [...] orders placed or performed in visit on 08/03/21 Protime-INR Result Value Ref Range INR 2.30 (A) 0.9 - 1.1 07/01/21 2D Echo: [...] fibrillation with RVR. 07/18/21 Interpretation Summary AMBULATORY AREA MECHANIC REPORT ?? Patient Name: Tressa Myers Date of : 1955 Requesting Provider: Lovely Nuñez NP Referring provider: Jovita Bermudez MD Date of interpretation: 07/18/21 ?? Type of monitor : 72 hour patch monitor Date of the study/Enrollment period: 07/05/2021 Indication: Atrial flutter Quality of the study: Fair, baseline artifact and low voltage. ?? Interpretation: The patient was monitored for 3 [...] or ventricular tachycardia. No symptoms were recorded. ?? Conclusions: 1. Persistent atrial fibrillation with a mildly elevated heart rate response. 2. No symptoms recorded. 08/11/21 EXAM DESCRIPTION: ?? CT CHEST W/O CONTRAST [...] for detection of solid visceral lesions is diminished??without the use of intravenous contrast. Marked improved appearance of the pneumonia involving the right lower lobe and the minimal component involving the right upper lobe. ??Minimal if any significant residual airspace disease in these regions. ??Some ground-glass opacities persist in this region as well. ??Ground-glass opacities of the upper lung shah present and similar when allowing for differences in technique. ?? Pleuroparenchymal opacities that are similar. ??No pneumothorax. ?? Tiny??right pleural effusion. ?? Lymph nodes of the [...] EKG, electronic medical record, admission records from [facility]26/20. and bloodwork/lipids. Grisel Trejo MD, [facility] This note is dictated and transcribed using [employer] Direct Software. Text Transcriber variancesmay occur. Despite proofreading, typographical errors may occur. SHOES SEWER documented in this encounter Plan of Treatment Not on file documented as of this encounter Procedures Procedure Name Priority Date/Time Associated Diagnosis Comments ECG 12-LEAD Routine 08/24/2021 Persistent atrial fibrillation (HCC) documented in this encounter Results * ECG 12 lead (08/24/2021) Anderson Trejo MD ECG ORDERABLES Final Re sult documented in this encounter Visit Diagnoses Diagnosis Persistent atrial fibrillation (HCC)- Primary Atrial fibrillation Chronic HFrEF (heart failure with reduced ejection fraction) (CMS/HCC) (HCC) Dilated cardiomyopathy (CMS/HCC) (HCC) Other primary cardiomyopathies Coronary artery disease involving bill moore's slough coronary artery of bill moore's slough heart without angina pectoris Hypertension associated with diabetes (HCC) Unspecified essential hypertension 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 diabetes mellitus (HCC) Thrombus of left atrial appendage Bilateral carotid artery occlusion Occlusion and stenosis of carotid artery without mention of cerebral infarction Hx of CABG Postsurgical aortocoronary bypass status Chronic anticoagulation Encounter for long-term (current) use of anticoagulants Tobacco abuse Tobacco use disorder documented in this encounter Care Teams Founder Relationship Specialty Start Date End Date Jovita Bermudez MD PCP - General Family Medicine 12/14/20 Zan Lee MD Surgeon Neurosurgery 01/02/19 documented as of this encounter
--- OUTSIDE RECORDS SUMMARY | 2024-08-30 18:57 | XMS_ITS | Encounter Summary ---
Author Organization [facility] Medical [facility] Address [address] [place] [address] Care Team Providers Care Pmp Project Manager Name Role Phone Zan Lee MD Unavailable [phone] Jovita Bermudez MD Primary Care Provider [phone] Encounter Details Date Type Department Care Team (Late st Contact Info) Description 08/25/2021 Telephone [facility] Cardiology [address] [place] [address] Anderson Trejo MD [address] [facility] [address] [place] [id number] Social History Tobacco Use Types Packs/Day Years [...] on file Legal Sex Female 3:00 AM HEAD REFRIGERATING ENGINEER Gender Identity Not on file Sexual Orientation Not on file documented as of this encounter Miscellaneous Notes * Telephone Encounter - Elsa Conner RN - 09/07/2021 9:12 AM HEAD REFRIGERATING ENGINEER Spoke w/pt. She states she does not feel comfortable coming in for her procedure on 09/21 due to the increase incovid cases. She says she would rather come in when cases down a bit. Pt to call our office when she is ready to reschedule. Called surgery and cancelled procedure. (RANDALL/CV at 1400 w/Anes- ) Will forward to AD as FYI. REFRIGERATING ENGINEER * Telephone Encounter - Rupinder Lewis - 09/07/2021 8:19 AM CST Pt called to cancel upcoming proc RANDALL/CV with Anes, scheduled 09/21/21 @ 2pm. States she is not comfortable coming in at this time due to the increase in Covid cases, pt does not want to reschedule atthis time states she will call at later date when she is ready.Please advise.Thank you Contact;[phone] REFRIGERATING ENGINEER * Telephone Encounter - Bree Walsh RN - 08/25/2021 9:12 AM CST Scheduled for RANDALL/CV with Anes. 09/21/21 at 1400. Instructed pt to hold januvia, metformin, and lasix. Pt to have INR drawn 1 week prior to procedure. Per Dr. King in Anesthesia, pt allowed to have clear liquids until 0800 day of procedure. Patient instructed to call office if symptoms worsen and we will schedule her soon with a differentprovider. KK/VW REFRIGERATING ENGINEER documented in this encounter Plan of Treatment Not on file documented as of this encounter Visit Diagnoses Not on filedocumented in this encounter Care Teams Pmp Project Manager Relationship Specialty Start Date End Date Jovita Bermudez MD PCP - General Family Medicine 12/14/20 Zan Lee MD Surgeon Neurosurgery 01/02/19 documented as of this encounter
--- OUTSIDE RECORDS SUMMARY | 2024-08-30 18:57 | XMS_ITS | Encounter Summary ---
Author Organization [facility] Medical [facility] Address [address] [place] [address] Care Team Providers Care Grain Elevator Clerk Name Role Phone Zan Lee MD Unavailable [phone] Jovita Bermudez MD Primary Care Provider Reason for Visit * Reason Onset Date Comments Schedule echo 05/17/2021 Encounter Details Date Type Department Care Team (Late Contact Info) Description 05/17/2021 Telephone [facility] Cardiology [address] [place] [address] Lovely Nuñez NP [address] [facility] [address] [place] [address] Schedule echo Social History Tobacco Use Types Packs/Day Years [...] on file Legal Sex Female 3:00 AM CYBER OPS PLANNER Gender Identity Not on file Sexual Orientation Not on file documented as of this encounter Miscellaneous Notes * Telephone Encounter - Lovely Nuñez NP - 05/17/2021 10:05 AM CDT I called the patient and left her a voicemail asking her to call back to schedule an echocardiogram, either at [facility] or [facility]. documented in this encounter Plan of Treatment Not on file documented as of this encounter Visit Diagnoses Not on filedocumented in this encounter Care Teams Grain Elevator Clerk Relationship Specialty Start Date End Date Jovita Bermudez MD PCP - General Family Medicine 12/14/20 Zan Lee MD Surgeon Neurosurgery 01/02/19 documented as of this encounter
--- OUTSIDE RECORDS SUMMARY | 2024-08-30 18:57 | XMS_ITS | Encounter Summary ---
Author Organization [facility] Medical Group Address [address] [place] [address] Care Team Providers Care Manager Production Name Role Phone Robbie Haywood MD Primary Care Provider [phone] Zan Lee MD Unavailable [phone] Encounter Details Date Type Department Care Team (Late st Contact Info) Description 12/13/2020 Anticoagulation Visit [facility] Medical Group Cardiology [address] [place] [address] Sandy Ratliff, JUSTICE Social History Tobacco Use Types Packs/Day [...] on file Legal Sex Female 3:00 AM OUTREACH TEAM MEMBER Gender Identity Not on file Sexual Orientation Not on file documented as of this encounter Plan of Treatment Not on file documented as of this encounter Procedures Procedure Name Priority Date/Time Associated Diagnosis Comments PROTIME-INR Routine 12/13/2020 documented in this encounter Results * (ABNORMAL) Protime-INR (12/13/2020) INR 2.70(A) 0.9 - 1.1 EXTERNAL LAB Blood specimen (specimen) us Historical Provider LAB BLOOD ORDERABLES Jennifer doran Result EXTERNAL LAB documented in this encounter Visit Diagnoses Not on filedocumented in this encounter Care Teams Manager Production Relationship Specialty Start Date End Date Robbie Haywood MD [address] [place] [address] PCP - General 12/29/18 12/13/20 Zan Lee MD [address] [place] [address] Surgeon Neurosurgery 01/02/19 documented as of this encounter
--- OUTSIDE RECORDS SUMMARY | 2024-08-30 18:57 | XMS_ITS | Encounter Summary ---
Author Organization [facility] Address [address] [place] [address] Care Team Providers Care Claims Assistant Name Role Phone Zan Lee MD Unavailable [phone] Jovita Bermudez MD Primary Care Provider [phone] Reason for Visit * Reason Comments Follow-up 4 mo f/u Cardiomyopathy Encounter Details Date Type Department Care Team (Latest Contact Info) Description 03/03/2022 2:45 PM CDT Office Visit [facility] Cardiology [address] [[email or web address] [place] [phone] Anderson Trejo MD [address] [place] [address] 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 (Primary Dx); Chronic HFrEF (heart failure with reduced ejection fraction) (CMS/HCC) (HCC); Dilated cardiomyopathy (CMS/HCC) (HCC); Persistent atrial fibrillation (HCC); Thrombus of left atrial appendage; Chronic anticoagulation; Hx of CABG Social History Tobacco Use [...] on file 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 Gender Identity Not on file Sexual Orientation Not on file documented as of this encounter Last Filed Vital Signs Vital Sign Reading Time Taken Comments Blood Pressure 100/64 03/03/2022 2:47 PM CDT Pulse 81 03/03/2022 2:47 PM CDT Temperature - - Respiratory Rate - - Oxygen Saturation 97% 03/03/2022 2:47 PM CDT Inhaled Oxygen Concentration - - Weight 103.5 kg (228 lb 3.2 oz) 03/03/2022 2:47 PM CDT Height 165.1 cm (5' 5 ) 03/03/2022 2:47 PM CDT Body Mass Index 37.97 03/03/2022 2:47 PM CDT documented in this encounter Progress Notes * Anderson Trejo MD - 03/03/2022 2:45 PM CDT Images from the original note were not included. DATE OF VISIT: 03/03/2022 CHIEF COMPLAINT Chief Complaint Patient presents with ??? Follow-up 4 mo f/u ??? 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 Stable, persistent A. Fib controlled [...] symptomatic despite HR control. Referral to EP discussed for their opinion she is in agreement does not wish to go to [facility] and wants to follow up at with EP when available. -Discussed alternatives to warfarin such as Eliquis or Xarelto, Eliquis was very expensive so had to stop. -Explained previous limitation with antiarrhythmic therapy due to STEVEN thrombus. 2. NYHA class III sxs, well compensated [...] had RAVEN-I cough with Lisinopril. -continue Jardiance. -On Lasix 20mg daily, offered increase but she declined due to excessive urination. 3. BP controlled goal less than 130/80 mm Hg. Monitor BP on routine basis. Call with readings. Continue consistent cardiovascular exercise, weight loss, medication compliance, and low-sodium diet. -losartan 50 mg daily, Toprol XL 200 mg daily 4. Lipids personally reviewed 03/03/22 LDL 37, quite [...] Monitor for bleeding in combination with warfarin. All questions answered to their satisfaction. Over [...] for AMOR. She was previously followed by entry level chemist Dr. Nunn but had not seen him in about 2 years. She presented to [facility] on 09/07/2020 with complaint of progressively worsening [...] small ASD, moderate to severe TR and hvgq-hl-ahuurhih MR. There was also large intramural plaque [...] and she ask for the information for [facility]. She feels quite tired [...] Eliquis. ?? 10/28/20 CAT visit-Dr. Trejo performed FALGUNI on [...] evidence ASD, moderate to severe TR and vviy-al-ykhokwzp MR. Dr. Trejo recommended switching from Eliquis [...] in R leg with bruising admitted to [facility] 11/26/20 INR elevated at 8.1 better now. [...] CAT visit - she was hospitalized at [facility] in [place] for pneumonia and pyelonephritis 2 weeks ago. [...] does not reveal. Pt recently admitted to [facility] for pneumonia feeling a lot better [...] edema. Virgilio meds taking Lasix 20mg daily. MEDICAL HISTORY Past Medical History: Diagnosis Date [...] septum, probably diastolic dysfunction. LHC (05/07/13) (1) Oxwglpp85% narrowings from proximal to distal RCA (2) [...] mg tablet traMADoL (ULTRAM) 50 mg tablet UNABLE TO FIND warfarin (COUMADIN) 2 mg tablet celecoxib (CeleBREX) 200 mg capsule ALLERGIES Allergies Allergen Reactions ??? Cefazolin Rash [...] and are negative. PHYSICAL EXAM Vitals BP 100/64 (BP Location: Left arm, Patient Position: Sitting) Pulse 81 Ht 165.1 cm (5' 5 ) Wt 103.5 kg (228 lb 3.2 oz) SpO2 97% BMI 37.97 kg/m?? Weight: 103.5 kg (228 lb 3.2 oz) Height: 165.1 cm (5' 5 ) Body mass index is 37.97 kg/m??. Physical Exam Vitals reviewed. Constitutional: General: [...] orders placed or performed in visit on 02/22/22 Protime-INR Result Value Ref Range INR 2.10 (A) 0.9 - 1.1 07/01/21 2D Echo: [...] fibrillation with RVR. 07/18/21 Interpretation Summary AMBULATORY COMPLAINT EVALUATION OFFICER REPORT ?? Patient Name: Tressa Myers Date [...] EKG, electronic medical record, admission records from [facility]11/26/20. and bloodwork/lipids. WDex Trejo MD, [facility] This note is dictated and transcribed using Go Vocab Direct Software. Industrial Automation Specialist variancesmay occur. Despite proofreading, typographical errors may occur. 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 documented in this encounter Results * POCT lipid panel (03/03/2022 4:07 PM CDT) Cholesterol, POC <100 mg/dL Comment:GLU = 203 HDL, POC 31 mg/dL Triglycerides, POC 159 mg/dL LDL Cholesterol POC 37 mg/dL Chol/HDL Ratio, POC N/A Non-HDL Cholesterol, POC N/A mg/dL Cholesterol Total, POC <100 mg/dL Capillary blood 03/03/2022 4 :07 PM CDT us Anderson Trejo MD POINT OF CARE TEST ORDER MONA Final Result documented in this encounter Visit Diagnoses Diagnosis 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- Primary Chronic HFrEF (heart failure with reduced ejection fraction) (CMS/HCC) (HCC) Dilated cardiomyopathy (CMS/HCC) (HCC) Other primary cardiomyopathies Persistent atrial fibrillation (HCC) Atrial fibrillation Thrombus of left atrial appendage Chronic anticoagulation Encounter for long-term (current) use of anticoagulants Hx of CABG Postsurgical aortocoronary bypass status documented in this encounter Care Teams Claims Assistant Relationship Specialty Start Date End Date Jvoita Bermudez MD PCP - General Family Medicine 12/14/20 Zan Lee MD Surgeon Neurosurgery 01/02/19 documented as of this encounter
--- OUTSIDE RECORDS SUMMARY | 2024-08-30 18:57 | XMS_ITS | Encounter Summary ---
Author Organization [facility] Address [address] [place] [address] Care Team Providers Care Garage Worker Name Role Phone Zan Lee MD Unavailable [phone] Jovita Bermudze MD Primary Care Provider [phone] Reason for Visit * Consultation (Routine) - Closed Specialty Diagnoses / Procedures Referred By Contac t Referred To Contact Cardiology Diagnoses Coronary atherosclerosis of [place] coronary artery Jovita Bermudez MD Phone: tel: fax: [facility] Medical [facility] Cardiology [address] [place] [address] Phone: tel: fax: Referral ID Status Reason Start Date Expiration Date V isits Requested Visits Authorized [id number] Closed Specialty Services Required 12/14/2020 12/09/2021 12 12 Encounter Details Date Type Department Care Team (Latest Contact Info) Description 07/05/2021 2:30 PM NECKTIE CENTRALIZING MACHINE OPERATOR Ancillary Procedure 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 Gender Identity Not on file Sexual Orientation Not on file documented as of this encounter Plan of Treatment Not on file documented as of this encounter Procedures Procedure Name Priority Date/Time Associated Diagnosis Comments EXTENDED/NURSING HOME HOLTER PATCH (>48 HOURS UP TO 7 DAYS) Routine 07/05/2021 2:57 PM NECKTIE CENTRALIZING MACHINE OPERATOR Paroxysmal atrial flutter (CMS/HCC) (HCC) documented in this encounter Results * Extended/Shelter Holter Patch (>48 hours up to 7 days) (07/05/2021 2:57 PM NECKTIE CENTRALIZING MACHINE OPERATOR) Anatomical Region Laterality Modality Other Narrative 07/18/2021 8:29 PM NECKTIE CENTRALIZING MACHINE OPERATOR AMBULATORY LANDFILL GAS TECHNICIAN REPORT Patient Name: Tressa Myers Date of : 1955 ?? Requesting Provider: ?? Lovely Nuñez NP Referring provider: ??Jovita Bermudez MD Date of interpretation: 07/18/21 Type of monitor : ??72 hour patch monitor Date of the study/Enrollment period: ??07/05/2021 Indication: ??Atrial flutter Quality of the study: ??Fair, baseline artifact and low voltage. Interpretation: ??The patient was monitored for 3 days. ??The underlying rhythm was persistent atrial fibrillation with a minimum heart rate of 65 beats per minute, average heart rate of 95 beats per minute and maximum heart rate of 134 beats per minute. ??There may have been 1 ventricular triplet versus artifact but otherwise no ventricular ectopy. ??There were no pauses, heart block, or ventricular tachycardia. ??No symptoms were recorded. Conclusions: 1. Persistent atrial fibrillation with a mildly elevated heart rate response. 2. No symptoms recorded. Voice recognition software was used to complete this document, therefore, medical technologist chief variances may occur. Janelle Jensen MD, [facility] 07/18/21 [facility] Cardiology Procedure Note Janelle Jensen MD - 07/18/2021 AMBULATORY LANDFILL GAS TECHNICIAN REPORT Patient Name: Tressa Myers Date of : 1955 Requesting Provider: Lovely Nuñez NP Referring provider: Jovita Bermudez MD Date of interpretation: 07/18/21 Type of monitor : 72 hour patch monitor Date of the study/Enrollment period: 07/05/2021 Indication: Atrial flutter Quality of the study: Fair, baseline artifact and low voltage. Interpretation: The patient was monitored for 3 days. The underlyingrhythm was persistent atrial fibrillation with a minimum heart rate of 65beats per minute, average heart rate of 95 beats per minute and maximumheart rate of 134 beats per minute. There may have been 1 ventriculartriplet versus artifact but otherwise no ventricular ectopy. There wereno pauses, heart block, or ventricular tachycardia. No symptoms wererecorded. Conclusions: 1. Persistent atrial fibrillation with a mildly elevated heart rateresponse. 2. No symptoms recorded. Voice recognition software was used to complete this document, therefore,medical technologist chief variances may occur. Janelle Jensne MD, [facility] 07/18/21 [facility] Cardiology Lovely Nuñez NP CV CARDIAC SERVICES [facility] Final Result documented in this encounter Visit Diagnoses Diagnosis Paroxysmal atrial flutter (CMS/HCC) (HCC) documented in this encounter Care Teams Garage Worker Relationship Specialty Start Date End Date Jovita Bermudez MD PCP - General Family Medicine 12/14/20 Zan Lee MD Surgeon Neurosurgery 01/02/19 documented as of this encounter
--- OUTSIDE RECORDS SUMMARY | 2024-08-30 18:57 | XMS_ITS | Encounter Summary ---
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 Gender Identity Not on file Sexual Orientation Not on file documented as of this encounter Plan of Treatment Not on file documented as of this encounter Procedures Procedure Name Priority Date/Time Associated Diagnosis Comments PROTIME-INR Routine 06/02/2022 documented in this encounter Results * (ABNORMAL) Protime-INR (06/02/2022) INR 1.70(A) 0.9 - 1.1 EXTERNAL LAB Blood us Historical Provider LAB BLOOD ORDERABLES Jennifer doran Result EXTERNAL LAB documented in this encounter Visit Diagnoses Not on filedocumented in this encounter Care Teams Web Press Operator Apprentice Relationship Specialty Start Date End Date Jovita Bermudez MD PCP - General Family Medicine 12/14/20 Zan Lee MD Surgeon Neurosurgery 01/02/19 documented as of this encounter
--- OUTSIDE RECORDS SUMMARY | 2024-08-30 18:57 | XMS_ITS | Encounter Summary ---
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 Gender Identity Not on file Sexual Orientation Not on file documented as of this encounter Plan of Treatment Not on file documented as of this encounter Procedures Procedure Name Priority Date/Time Associated Diagnosis Comments PROTIME-INR Routine 12/27/2021 documented in this encounter Results * (ABNORMAL) Protime-INR (12/27/2021) INR 2.20(A) 0.9 - 1.1 EXTERNAL LAB Blood specimen (specimen) us Historical Provider LAB BLOOD ORDERABLES Jennifer doran Result EXTERNAL LAB documented in this encounter Visit Diagnoses Not on filedocumented in this encounter Care Teams Manager Database Relationship Specialty Start Date End Date Jovita Bermudez MD PCP - General Family Medicine 12/14/20 Zan Lee MD Surgeon Neurosurgery 01/02/19 documented as of this encounter
--- OUTSIDE RECORDS SUMMARY | 2024-08-30 18:57 | XMS_ITS | Encounter Summary ---
Author Organization [facility] Address [address] [place] [address] Care Team Providers Care Supply Chain Vice President Name Role Phone Zan Lee MD Unavailable [phone] Jovita Bermudez MD Primary Care Provider [phone] Encounter Details Date Type Department Care Team (Late st Contact Info) Description 11/29/[address] 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 Gender Identity Not on file Sexual Orientation Not on file documented as of this encounter Plan of Treatment Not on file documented as of this encounter Procedures Procedure Name Priority Date/Time Associated Diagnosis Comments PROTIME-INR Routine 11/28/2021 documented in this encounter Results * (ABNORMAL) Protime-INR (11/28/2021) INR 2.00(A) 0.9 - 1.1 EXTERNAL LAB Blood specimen (specimen) us Historical Provider LAB BLOOD ORDERABLES Jennifer doran Result EXTERNAL LAB documented in this encounter Visit Diagnoses Not on filedocumented in this encounter Care Teams Supply Chain Vice President Relationship Specialty Start Date End Date Jovita Bermudez MD PCP - General Family Medicine 12/14/20 Zan Lee MD Surgeon Neurosurgery 01/02/19 documented as of this encounter
--- OUTSIDE RECORDS SUMMARY | 2024-08-30 18:57 | XMS_ITS | Encounter Summary ---
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 Gender Identity Not on file Sexual Orientation Not on file documented as of this encounter Plan of Treatment Not on file documented as of this encounter Procedures Procedure Name Priority Date/Time Associated Diagnosis Comments PROTIME-INR Routine 01/18/2021 documented in this encounter Results * (ABNORMAL) Protime-INR (01/18/2021) INR 2.10(A) 0.9 - 1.1 EXTERNAL LAB Blood specimen (specimen) us Historical Provider LAB BLOOD ORDERABLES Jennifer doran Result EXTERNAL LAB documented in this encounter Visit Diagnoses Not on filedocumented in this encounter Care Teams Drapery Counselor Relationship Specialty Start Date End Date Jovita Bermudez MD PCP - General Family Medicine 12/14/20 Zan Lee MD Surgeon Neurosurgery 01/02/19 documented as of this encounter
--- OUTSIDE RECORDS SUMMARY | 2024-08-30 18:57 | XMS_ITS | Encounter Summary ---
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 Gender Identity Not on file Sexual Orientation Not on file documented as of this encounter Plan of Treatment Not on file documented as of this encounter Procedures Procedure Name Priority Date/Time Associated Diagnosis Comments ECG 12-LEAD Routine 06/24/2021 Paroxysmal atrial flutter (CMS/HCC) (HCC) documented in this encounter Results * ECG 12 lead (06/24/2021) Lovely Nuñez ORGANIC CHEMIST ECG ORDERABLES Final Res ult documented in this encounter Visit Diagnoses Diagnosis Paroxysmal atrial flutter (CMS/HCC) (HCC) documented in this encounter Care Teams Carpenter Refrigerator Relationship Specialty Start Date End Date Jovita Bermudez MD PCP - General Family Medicine 12/14/20 Zan Lee MD Surgeon Neurosurgery 01/02/19 documented as of this encounter
--- OUTSIDE RECORDS SUMMARY | 2024-08-30 18:57 | XMS_ITS | Encounter Summary ---
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 Gender Identity Not on file Sexual Orientation Not on file documented as of this encounter Plan of Treatment Not on file documented as of this encounter Procedures Procedure Name Priority Date/Time Associated Diagnosis Comments PROTIME-INR Routine 08/03/2021 documented in this encounter Results * (ABNORMAL) Protime-INR (08/03/2021) INR 2.30(A) 0.9 - 1.1 EXTERNAL LAB Blood specimen (specimen) us Historical Provider LAB BLOOD ORDERABLES Jennifer doran Result EXTERNAL LAB documented in this encounter Visit Diagnoses Not on filedocumented in this encounter Care Teams Plisse Machine Operator Helper Relationship Specialty Start Date End Date Jovita Bermudez MD PCP - General Family Medicine 12/14/20 Zan Lee MD Surgeon Neurosurgery 01/02/19 documented as of this encounter
--- OUTSIDE RECORDS SUMMARY | 2024-08-30 18:57 | XMS_ITS | Encounter Summary ---
Author Organization [facility] Address [address] [place] [address] Care Team Providers Care Data Warehouse Developer Name Role Phone Zan Lee MD Unavailable [phone] Jovita Bermudez MD Primary Care Provider [phone] Encounter Details Date Type Department Care Team (Late st Contact Info) Description 12/14/2021 Orders Only [facility] Cardiology [address] [place] [address] Anderson Trejo MD [address] [id number] Social History Tobacco Use Types Packs/Day Years [...] on file 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 Gender Identity Not on file Sexual Orientation Not on file documented as of this encounter Plan of Treatment Not on file documented as of this encounter Procedures Procedure Name Priority Date/Time Associated Diagnosis Comments CARDIOLOGY DOCUMENT SCAN Routine 12/14/2021 documented in this encounter Results * Cardiology Document Scan (12/14/2021) Anatomical Region Laterality Modality Other us Anderson Trejo MD CV CARDIAC SERVICES PROC [facility] Final Result documented in this encounter Visit Diagnoses Not on filedocumented in this encounter Care Teams Data Warehouse Developer Relationship Specialty Start Date End Date Jovita Bermudez MD PCP - General Family Medicine 12/14/20 Zan Lee MD Surgeon Neurosurgery 01/02/19 documented as of this encounter
--- OUTSIDE RECORDS SUMMARY | 2024-08-30 18:57 | XMS_ITS | Encounter Summary ---
Author Organization [facility] Address [address] [place] [address] Care Team Providers Care Pattern Chain Builder Name Role Phone Zan Lee MD Unavailable [phone] Jovita Bermudez MD Primary Care Provider [phone] Encounter Details Date Type Department Care Team (Late st Contact Info) Description 03/03/2021 Anticoagulation Visit [facility] Cardiology [address] [place] [address] Sandy Ratliff, JUSTICE Social History [...] on file Legal Sex Female 3:00 AM BI LEAD Gender Identity Not on file Sexual Orientation Not on file documented as of this encounter Plan of Treatment Not on file documented as of this encounter Procedures Procedure Name Priority Date/Time Associated Diagnosis Comments PROTIME-INR Routine 03/03/2021 documented in this encounter Results * (ABNORMAL) Protime-INR (03/03/2021) INR 2.10(A) 0.9 - 1.1 EXTERNAL LAB Blood specimen (specimen) us Historical Provider LAB BLOOD ORDERABLES Jennifer doran Result EXTERNAL LAB documented in this encounter Visit Diagnoses Not on filedocumented in this encounter Care Teams Pattern Chain Builder Relationship Specialty Start Date End Date Jovita Bermudez MD PCP - General Family Medicine 12/14/20 Zan Lee MD Surgeon Neurosurgery 01/02/19 documented as of this encounter
--- OUTSIDE RECORDS SUMMARY | 2024-08-30 18:57 | XMS_ITS | Encounter Summary ---
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 Gender Identity Not on file Sexual Orientation Not on file documented as of this encounter Plan of Treatment Not on file documented as of this encounter Procedures Procedure Name Priority Date/Time Associated Diagnosis Comments PROTIME-INR Routine 05/10/2021 documented in this encounter Results * (ABNORMAL) Protime-INR (05/10/2021) INR 1.90(A) 0.9 - 1.1 EXTERNAL LAB Blood specimen (specimen) us Historical Provider LAB BLOOD ORDERABLES Jennifer doran Result EXTERNAL LAB documented in this encounter Visit Diagnoses Not on filedocumented in this encounter Care Teams Computer Systems Technician Relationship Specialty Start Date End Date Jovita Bermudez MD PCP - General Family Medicine 12/14/20 Zan Lee MD Surgeon Neurosurgery 01/02/19 documented as of this encounter
--- OUTSIDE RECORDS SUMMARY | 2024-08-30 18:57 | XMS_ITS | Encounter Summary ---
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 Gender Identity Not on file Sexual Orientation Not on file documented as of this encounter Plan of Treatment Not on file documented as of this encounter Procedures Procedure Name Priority Date/Time Associated Diagnosis Comments PROTIME-INR Routine 04/11/2022 documented in this encounter Results * (ABNORMAL) Protime-INR (04/11/2022) INR 2.10(A) 0.9 - 1.1 EXTERNAL LAB Blood specimen (specimen) us Historical Provider LAB BLOOD ORDERABLES Edit ed Result - Final EXTERNAL LAB documented in this encounter Visit Diagnoses Not on filedocumented in this encounter Care Teams Perishable Fruit Inspector Relationship Specialty Start Date End Date Jovita Bermudez MD PCP - General Family Medicine 12/14/20 Zan Lee MD Surgeon Neurosurgery 01/02/19 documented as of this encounter
--- OUTSIDE RECORDS SUMMARY | 2024-08-30 18:57 | XMS_ITS | Encounter Summary ---
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 Gender Identity Not on file Sexual Orientation Not on file documented as of this encounter Plan of Treatment Not on file documented as of this encounter Procedures Procedure Name Priority Date/Time Associated Diagnosis Comments PROTIME-INR Routine 07/01/2021 documented in this encounter Results * (ABNORMAL) Protime-INR (07/01/2021) INR 2.40(A) 0.9 - 1.1 EXTERNAL LAB Blood specimen (specimen) us Historical Provider LAB BLOOD ORDERABLES Jennifer doran Result EXTERNAL LAB documented in this encounter Visit Diagnoses Not on filedocumented in this encounter Care Teams Metallurgical Engineering Technician Relationship Specialty Start Date End Date Jovita Bermudez MD PCP - General Family Medicine 12/14/20 Zan Lee MD Surgeon Neurosurgery 01/02/19 documented as of this encounter
--- OUTSIDE RECORDS SUMMARY | 2024-08-30 18:57 | XMS_ITS | Encounter Summary ---
Author Organization [facility] Address [address] [place] [address] Care Team Providers Care Junior Designer Name Role Phone Zan Lee MD Unavailable [phone] Jovita Bermudez MD Primary Care Provider [phone] Reason for Visit * Reason Onset Date Comments Metoprolol Refill 02/04/2021 Encounter Details Date Type Department Care Team (Late st Contact Info) Description 02/04/2021 Telephone [facility] Cardiology [address] [place] [phone] Jazmyne Cannon MA Metoprolol Refill Social History Tobacco Use Types Packs/Day [...] on file 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 I see it now. Sent to pharmacy * Telephone Encounter - Anderson Trejo MD - 02/07/2021 8:26 AM CDT Per my note she was taking Toprol XL 150 mg daily. * Telephone Encounter - Jazmyne Cannon MA - 02/04/2021 10:05 AM CDT Last two OV notes show Metoprolol 100 mg daily but refill request from pharmacy states pt reports taking [address] Trejo, Please advise how refill should be sent to pharmacy? Thank you Pharmacy: [facility] documented in this encounter Plan of Treatment Not on file documented as of this encounter Visit Diagnoses Not on filedocumented in this encounter Care Teams Junior Designer Relationship Specialty Start Date End Date Jovita Bermudez MD PCP - General Family Medicine 12/14/20 Zan Lee MD Surgeon Neurosurgery 01/02/19 documented as of this encounter
--- OUTSIDE RECORDS SUMMARY | 2024-08-30 18:57 | XMS_ITS | Encounter Summary ---
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 Gender Identity Not on file Sexual Orientation Not on file documented as of this encounter Plan of Treatment Not on file documented as of this encounter Procedures Procedure Name Priority Date/Time Associated Diagnosis Comments PROTIME-INR Routine 06/02/2021 documented in this encounter Results * (ABNORMAL) Protime-INR (06/02/2021) INR 2.10(A) 0.9 - 1.1 EXTERNAL LAB Blood specimen (specimen) us Historical Provider LAB BLOOD ORDERABLES Jennifer doran Result EXTERNAL LAB documented in this encounter Visit Diagnoses Not on filedocumented in this encounter Care Teams Boat Captain Relationship Specialty Start Date End Date Jovita Bermudez MD PCP - General Family Medicine 12/14/20 Zan Lee MD Surgeon Neurosurgery 01/02/19 documented as of this encounter
--- OUTSIDE RECORDS SUMMARY | 2024-08-30 18:57 | XMS_ITS | Encounter Summary ---
Author Organization [facility] Address [address] [place] [address] Care Team Providers Care Tar Chaser Name Role Phone Zan Lee MD Unavailable [phone] Jovita Bermudez MD Primary Care Provider [phone] Reason for Visit * Cardiology (Routine) - Closed Specialty Diagnoses / Procedures Referred By Contac t Referred To Contact Diagnoses Cardiomyopathy, unspecified type (HCC) Procedures Transthoracic Echo Complete W Doppler/CF Ketan Sawant NP [address] [address] Phone: tel: fax: [facility] Referral ID Status Reason Start Date Expiration Date Visits Re quested Visits Authorized [id number] Closed 05/16/2021 06/15/2022 1 1 Encounter Details Date Type Department Care Team (Latest Contact Info) Description 07/01/2021 4:00 PM CDT Ancillary Procedure [facility] Cardiology [facility] [address] [phone] Cardiomyopathy, unspecified type (HCC) Social History Tobacco Use Types Packs/Day [...] on file 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 Gender Identity Not on file Sexual Orientation Not on file documented as of this encounter Plan of Treatment Not on file documented as of this encounter Procedures Procedure Name Priority Date/Time Associated Diagnosis Comments TRANSTHORACIC ECHO (TTE) COMPLETE W DOPPLER/CF W CONTRAST Routine 07/01/2021 1:00 PM CDT Cardiomyopathy, unspecified type (HCC) documented in this encounter Results * TRANSTHORACIC ECHO (TTE) COMPLETE W DOPPLER/CF W CONTRAST (07/01/2021 1:00 PM CDT) Anatomical Region Laterality Modality Ultrasound 07/01/2021 11:5 2 AM CDT Narrative 07/01/2021 4:09 PM CDT [facility] Cardiology [address], [place] [id number] [address], [place] [address] P:[phone] P:[phone] Echocardiographic Report Patient Name: TRESSA RODAS : 1955 Study Date: 07/01/2021 11:52:49 AM Gender: F Tech: Location: [place] Ref.Provider: KETAN SAWANT Height(Cm): 165 BSA: 2.05 Weight(Kg): 98.43 Heart Rate: 98 BP: 104/73 Quality: Definity contrast agent used to enhance endocardial border definition Order Provider: KETAN SAWANT Procedures: Echocardiographic Report: Transthoracic echocardiogram with complete 2D, M-Mode, color Doppler examination and Definity contrast. Indications: STEVEN Thrombus and Cardiomyopathy. Measurements: 2D/M Mode ?Doppler ? Measurement ?Value ?Normal Range ? Measurement ?Value ?Normal Range ? EF Mod ? 55 ?KATH ?1.42 ? [ 2.00 - 4.00 ] cm2 ? EF MM ?52 ? [ 55 - 70 ] % ?AV Mean PG ? 7 ?mmHg ? LVIDd MM ? 4.08 ? [ 3.90 - 5.30 ] cm ? AV Peak Samir ?1.85 ? m/s ? LVIDs MM ? 3.00 ? [ 2.30 - 3.90 ] cm ? AV Peak PG ? 14 ? mmHg ? LVPWd MM ? 1.33 ? [ 0.60 - 1.00 ] cm ? AV VTI ? 0.35 ? cm ? IVSd MM ?1.67 ? [ 0.60 - 0.90 ] cm ? LVOT Diam ?2.10 ? [ 1.70 - 2.10 ] cm ? LA Dimension MM ?5.51 ? [ 2.70 - 3.80 ] cm ? LVOT Peak Samir ?0.76 ? [ 0.70 - 1.10 ] m/s ? AoR Diam MM ?2.62 ? [ 2.60 - 3.70 ] cm ? LVOT VTI ? 0.15 ? cm ? LA Volume Index ?41.00 ?[ 16.00 - 28.00 ] cc/m2 ?MV E Peak Samir ?1.39 ? [ 0.60 - 1.30 ] m/s ? ACS MM ? 0.93 ? cm ? MV Decel Time ?142 ?[ 150 - 200 ] msec ? PV Peak Samir ?0.97 ? [ 0.40 - 0.80 ] m/s ? TR Peak Samir ?2.73 ? [ 0.40 - 0.80 ] m/s ? TR Peak PG ? 30 ? mmHg ? RVSP ? 45.00 ?mmHg ? E' ? 0.16 ? E/E' ? 8 ? Findings: Interpretation Site: Exam was interpreted at [facility]. Left Ventricle: Normal left ventricular size. Definity contrast agent used to visually enhance endocardial wall motion and contractility. Lot Number: [id number]. Moderate concentric left ventricular hypertrophy. Left ventricular systolic function at the lower limit of normal. Ejection fraction is visually estimated at 50-55 %. Ejection fraction is measured at 55 %. Right Ventricle: Normal right ventricular systolic function. Mild enlargement of right ventricle. Left Atrium: There is severe enlargement of left atrium. Right Atrium: There is severe enlargement of right atrium. Atrial Septum: Normal atrial septum. Mitral Valve: Mitral valve leaflets appear moderately thickened. Moderate mitral annular calcification. Mild mitral valve regurgitation. There is no hemodynamically significant mitral stenosis by Doppler. Aortic Valve: Moderate aortic stenosis. Peak gradient of 14.0 mmHg. Mean gradient of 7.0 mmHg. Valve area of 1.42 cm2. Aortic cusps appear moderately calcified. Trileaflet aortic valve. Trace aortic valve regurgitation. Tricuspid Valve: Normal appearance of the tricuspid valve. Moderate pulmonary hypertension based on right ventricular systolic pressure. Estimated peak RVSP is 45 mmHg. Moderate tricuspid regurgitation. Pulmonic Valve: Normal appearance of the pulmonic valve. No pulmonic stenosis. Mild pulmonic regurgitation. Pericardium: Normal pericardium with no significant pericardial effusion. Aorta: No aortic root dilation. Mild aortic root calcification. IVC: Dilated inferior vena cava with poor inspiratory collapse consistent with elevated right atrial pressures. Conclusions: Normal left ventricular size. Definity contrast [...] Mild pulmonic regurgitation. Atrial fibrillation with RVR. Electronically Signed By: Raudel Anderson MD 2021-07-01 16:09:52 CDT Procedure Note Raudel Anderson MD - 07/01/2021 [facility] Cardiology [address] [address] [address], [place] [address] P:[phone] P:[phone] Echocardiographic Report Patient Name: TRESSA RODASPatient ID: [id number] : [id number] Date: 07/01/2021 11:52:49 AM Gender: FAccession #: [id number] Tech: GMLocation: [place] Ref.Provider: Isaías SAWANT(Cm): 165 BSA: 2.05Weight(Kg): 98.43 Heart Rate: 98BP: 104/73 Quality: Definity contrast agent used to enhance endocardial borderdefinitionOrder Provider: KETAN SAWANT Procedures: Echocardiographic Report: Transthoracic echocardiogram with complete 2D, M-Mode, color Dopplerexamination and Definity contrast. Indications: STEVEN Thrombus and Cardiomyopathy. Measurements: 2D/M Mode Doppler Measurement Value Normal Range MeasurementValue Normal Range EF Mod 55 AVA1.42 [ 2.00 - 4.00 ] cm2 EF MM 52 [ 55 - 70 ] % AV Mean PG 7mmHg LVIDd MM 4.08 [ 3.90 - 5.30 ] cm AV Peak Vel1.85 m/s LVIDs MM 3.00 [ 2.30 - 3.90 ] cm AV Peak PG 14mmHg LVPWd MM 1.33 [ 0.60 - 1.00 ] cm AV VTI0.35 cm IVSd MM 1.67 [ 0.60 - 0.90 ] cm LVOT Diam2.10 [ 1.70 - 2.10 ] cm LA Dimension MM 5.51 [ 2.70 - 3.80 ] cm LVOT Peak Vel0.76 [ 0.70 - 1.10 ] m/s AoR Diam MM 2.62 [ 2.60 - 3.70 ] cm LVOT VTI0.15 cm LA Volume Index 41.00 [ 16.00 - 28.00 ] cc/m2 MV E Peak Vel1.39 [ 0.60 - 1.30 ] m/s ACS MM 0.93 cm MV Decel Knmc339 [ 150 - 200 ] msec PV Peak Vel0.97 [ 0.40 - 0.80 ] m/s TR Peak Vel2.73 [ 0.40 - 0.80 ] m/s TR Peak PG 30mmHg RVSP45.00 mmHg E'0.16 E/E' 8 Findings: Interpretation Site: Exam was interpreted at [facility]. Left Ventricle: Normal left ventricular size. Definity contrast agent used to visuallyenhance endocardial wall motion and contractility. Lot Number: [id number]. Moderateconcentric left ventricular hypertrophy. Left ventricular systolic function at the lowerlimit of normal. Ejection fraction is visually estimated at 50-55 %. Ejection fraction ismeasured at 55 %. Right Ventricle: Normal right ventricular systolic function. Mild enlargement of rightventricle. Left Atrium: There is severe enlargement of left atrium. Right Atrium: There is severe enlargement of right atrium. Atrial Septum: Normal atrial septum. Mitral Valve: Mitral valve leaflets appear moderately thickened. Moderate mitral annularcalcification. Mild mitral valve regurgitation. There is no hemodynamically significantmitral stenosis by Doppler. Aortic Valve: Moderate aortic stenosis. Peak gradient of 14.0 mmHg. Mean gradient of 7.0mmHg. Valve area of 1.42 cm2. Aortic cusps appear moderately calcified. Trileafletaortic valve. Trace aortic valve regurgitation. Tricuspid Valve: Normal appearance of the tricuspid valve. Moderate pulmonary hypertensionbased on right ventricular systolic pressure. Estimated peak RVSP is 45 mmHg. Moderatetricuspid regurgitation. Pulmonic Valve: Normal appearance of the pulmonic valve. No pulmonic stenosis. Mildpulmonic regurgitation. Pericardium: Normal pericardium with no significant pericardial effusion. Aorta: No aortic root dilation. Mild aortic root calcification. IVC: Dilated inferior vena cava with poor inspiratory collapse consistent withelevated right atrial pressures. Conclusions: Normal left ventricular size. Definity contrast agent used to visuallyenhance endocardial wall motion and contractility. Lot Number: [id number]. Moderateconcentric left ventricular hypertrophy. Left ventricular systolic function at the lowerlimit of normal. Ejection fraction is visually estimated at 50-55 %. Ejection fraction ismeasured at 55 %. Normal right ventricular systolic function. Mild enlargement of rightventricle. There is severe enlargement of left atrium. There is severe enlargement of right atrium. Mitral valve leaflets appear moderately thickened. Moderate mitral annularcalcification. Mild mitral valve regurgitation. Moderate aortic stenosis. Valve area of 1.42 cm2. Moderate pulmonary hypertension based on right ventricular systolicpressure. Estimated peak RVSP is 45 mmHg. Moderate tricuspid regurgitation. Mild pulmonic regurgitation. Atrial fibrillation with RVR. Electronically Signed By: Raudel Anderson MD 2021-07-01 16:09:52 CDT Ketan Sawant NP CV ECHO PROCEDURES Final Result documented in this encounter Visit Diagnoses Diagnosis Cardiomyopathy, unspecified type (HCC) documented in this encounter Administered Medications Inactive Administered Medications - up to 3 most recent administrations Medication Order MAR Action Action Date Dose Rate Site perflutren lipid (DEFINITY) 1.5 mL in sodium chloride 0.9% 10 mL syringe 1-10 mL, intravenous, Once in imaging, contrast, Starting on Sun07/01/21 at 1241, For 1 dose Contrast Given 07/01/2021 12:55 PM CDT 1 mL documented in this encounter Orders Medications Ordered That Drew ht Not Have Been Administered Count Last Ordered Date First Ordered Date perflutren lipid (DEFINITY) 1.5 mL in sodium chloride 0.9% 10 mL syringe 1 07/01/2021 documented in this encounter Care Teams Tar Chaser Relationship Specialty Start Date End Date Jovita Bermudez MD PCP - General Family Medicine 12/14/20 Zan Lee MD Surgeon Neurosurgery 01/02/19 documented as of this encounter
--- OUTSIDE RECORDS SUMMARY | 2024-08-30 18:57 | XMS_ITS | Encounter Summary ---
Author Organization [facility] Address [address] [place] [address] Care Team Providers Care Labor Conciliator Name Role Phone Zan Lee MD Unavailable [phone] Jovita Bermudez MD Primary Care Provider [phone] Reason for Visit * Consultation (Routine) - Closed Specialty Diagnoses / Procedures Referred By Contac t Referred To Contact Cardiology Diagnoses Coronary atherosclerosis of [place] coronary artery Jovita Bermudez MD Phone: tel: fax: [facility] Cardiology [address] [facility] [address] [address] Phone: tel: fax: Referral ID Status Reason Start Date Expiration Date V isits Requested Visits Authorized [id number] Closed Specialty Services Required 12/14/2020 12/09/2021 12 12 Encounter Details Date Type Department Care Team (Late st Contact Info) Description 02/17/2021 3:30 PM CDT Office Visit [facility] Medical [facility] Cardiology [address] [facility] [address] [address] Lovely Nuñez NP [address] [facility] [address] [place] [address] Persistent atrial fibrillation (CMS/HCC) (Primary Dx); Thrombus of left atrial appendage; Chronic anticoagulation; AMOR (obstructive sleep apnea); Cardiomyopathy, unspecified type (CMS/HCC); Coronary artery disease involving [place] coronary artery of [place] heart without angina pectoris; Carotid atherosclerosis, unspecified laterality; History of CVA (cerebrovascular accident) Social History Tobacco Use Types Packs/Day Years [...] on file 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 Gender Identity Not on file Sexual Orientation Not on file documented as of this encounter Last Filed Vital Signs Vital Sign Reading Time Taken Comments Blood Pressure 80/60 02/17/2021 3:43 PM CDT Pulse 130 02/17/2021 3:43 PM CDT Temperature - - Respiratory Rate - - Oxygen Saturation 91% 02/17/2021 3:43 PM CDT Inhaled Oxygen Concentration - - Weight 96.2 kg (212 lb) 02/17/2021 3:43 PM CDT Height 165.1 cm (5' 5 ) 02/17/2021 3:43 PM CDT Body Mass Index 35.28 02/17/2021 3:43 PM CDT documented in this encounter Patient Instructions * Patient Instructions* Lovely Nuñez NP - 02/17/2021 3:30 PM CDT Medication changes today: Increase metoprolol to 200 mg daily (take two 100 mg tablets) Decrease furosemide to 20 mg daily (cut the 40 mg tablet in half) Recheck INR in 2 weeks. documented in this encounter Ordered Prescriptions Prescription Sig Dispense Quantity Refills Last Filled Start Date End Date metoprolol XL (TOPROL-XL) 100 mg 24 hr tabletIndications: Persistent atrial fibrillation (HCC) Take 2 tablets (200 mg total) by mouth daily 60 tablet 5 02/17/2021 documented in this encounter Progress Notes * Lovely Nuñez NP - 02/17/2021 3:30 PM CDT Images from the original note were not included. [facility] Cardiology [address] [place] [id number] Date of Visit: 02/17/2021 Patient ID: Trsesa Myers 1955 Chief Complaint: Tressa Myers is a 66 y.o. female who is an established patient of Dr. Trejo returning to the office for follow-up of her atrial fibrillation and cardiomyopathy. History of Present Illness: Terssa Myers is a 66 y.o. female with a past medical history of coronary artery disease s/p CABGin 2013, with postoperative AFib, history of TIA with subsequent bilateral carotid artery intervention (left carotid stent December 2018 and right CEA May 2019 Dr Lee), HTN, HLD, DM, remote tobacco use, marijuana use, high risk for AMOR. She was previously followed by performance improvement director Dr. Nunn but had not seen him in about 2 years. She presented to [facility] on 09/07/2020 with complaint of [...] a smallASD, moderate to severe TR and vevj-po-hsqshvkd MR. There was also large intramural plaque [...] and she ask for the information for [place] [facility]. She feels quite tired [...] evidence ASD, moderate to severe TR and ixwq-ay-xftvfsyq MR. Dr. Trejo recommended switching from Eliquis to warfarin. Patient took her 1st dose of warfarin a week ago and went to the lab today for her 1st INR. Today she has no specific complaints or concerns. ECG showed atrial fibrillation with variable ventricular response, rate 94 beats per minute. 12/14/20 Had J&J shot. Had swelling in R leg with bruising admitted to [place] 11/26/20 INR elevated at 8.1 better now. [...] problems and had an INR checked today. Twelve lead ECG performed in the office today was reviewed by me personally and shows atrial fibrillation with rapid ventricular response, rate 130 bpm. Records that I personally reviewed on the day of this visit include: (the interpretation is outlined in the HPI above) 12/14/20 [address] note [address] from Dr. Trejo, today's ECG I have also reviewed: allergies, current medications, [...] Does not bruise/bleed easily. Skin: Positive for itching. Negative for poor wound healing and rash. Musculoskeletal: Negative for joint pain and myalgias. Gastrointestinal: Negative for heartburn, nausea and vomiting. Genitourinary: Negative for hematuria. Neurological: Negative for dizziness, headaches and light-headedness. Psychiatric/Behavioral: Negative for depression. The patient is not nervous/anxious. Vital Signs: BP (!) 80/60 (BP Location: Left arm, Patient Position: Sitting) Pulse (!) 130 Ht 165.1 cm (5' 5 ) Wt 96.2 kg (212 lb) SpO2 91% BMI 35.28 kg/m?? Physical Exam Constitutional: General: She is [...] No murmur heard. Comments: Apical heart rate 88 bpm Pulmonary: Effort: Pulmonary effort is normal. No respiratory distress. Breath sounds: Examination of the right-upper field reveals wheezing. Examination of the left-upperfield reveals wheezing. Wheezing present. Abdominal: General: Bowel sounds are normal. Palpations: Abdomen is soft. Tenderness: There is no abdominal tenderness. Musculoskeletal: General: Normal range of motion. Cervical back: Normal range of motion. Skin: General: Skin is warm and dry. Comments: Scratch wagner on both forearms and lower back Neurological: Mental Status: She is alert and [...] mouth nightly , Disp: , Rfl: ??? empagliflozin (JARDIANCE) 10 mg tablet, TAKE 2 DAILY, Disp: , Rfl: ??? furosemide (LASIX) 40 mg tablet, Take 20 mg by mouth daily , Disp: , Rfl: ??? levothyroxine (SYNTHROID, LEVOTHROID) 75 mcg tablet, Take 75 mcg by mouth toe sewer before breakfast , Disp: , Rfl: 3 ??? losartan (COZAAR) 50 mg tablet, Take 50 mg by mouth nightly, Disp: , Rfl: ??? metFORMIN (GLUCOPHAGE) 1,000 mg tablet, Take 1,000 mg by mouth 2 (two) times a day with meals ,Disp: , Rfl: 3 ??? metoprolol XL (TOPROL-XL) 100 mg 24 hr tablet, Take 2 tablets (200 mg total) by mouth daily, Disp: 60 tablet, Rfl: 5 ??? PARoxetine (PAXIL) 20 mg tablet, 2 (two) times a day, Disp: , Rfl: ??? simvastatin (ZOCOR) 40 mg tablet, Take 40 mg by mouth nightly , Disp: , Rfl: ??? SITagliptin (JANUVIA) 100 mg tablet, Take 1 tablet by mouth nightly , Disp: , Rfl: ??? warfarin (COUMADIN) 2 mg tablet, Take 2 tablets (4 mg total) by mouth daily Take 4mg daily or as directed by physician. (Patient taking differently: Take 3 mg by mouth daily Take 4mg daily or as directed by physician.), Disp: 60 tablet, Rfl: 11 ??? busPIRone (BUSPAR) 10 mg tablet, Take 10 mg by mouth 3 (three) times a day, Disp: , Rfl: Lab Results Component Value Date POTASSIUM 4.0 06/04/2019 BUNSER 10 06/04/2019 CREATININE 0.39 (L) 06/04/2019 CHOL 151 12/30/2018 TRIG 135 12/30/2018 LDL 15 02/23/2014 LDLCALC 85 12/30/2018 HDL 39 (L) 12/30/2018 Assessment: Diagnoses and all orders for this visit: Persistent atrial fibrillation (CMS/HCC) (Primary) - metoprolol XL (TOPROL-XL) 100 mg 24 hr tablet; Take 2 tablets (200 mg total) by mouth daily Thrombus of left atrial appendage Chronic anticoagulation AMOR (obstructive sleep apnea) Cardiomyopathy, unspecified type (CMS/HCC) Coronary artery disease involving [place] coronary artery of north fork heart without angina pectoris Carotid atherosclerosis, unspecified laterality History of CVA (cerebrovascular accident) Plan/Recommendations: She remains in atrial fibrillation and her heart rate is uncontrolled. Surprisingly she is asymptomatic with this. Increase metoprolol succinate to 200 mg daily. She has been diagnosed with severe sleep apnea and is now using a CPAP machine but does not yet have a mask with a good fit. She is getting a new mask in a few days. Therefore we will plan to repeat the transesophageal echocardiogram in 4 weeks time to allow some time for more effective CPAP therapy, and hopefully be able to do a cardioversion if there is resolution of the left atrial appendage thrombus. Today's INR is therapeutic but at the high end of normal and therefore I advised her to continue her warfarin at the same dosage but to check an INR again in 2 more weeks. For her cardiomyopathy she remains on losartan and metoprolol along with furosemide at 40 mg daily.She appears euvolemic and because she is hypotensive I advised her to reduce her furosemide to 20 mg daily. She is asymptomatic with her hypotension. Continue ASA 81mg daily and simvastatin given carotid dz, CAD, CVA. Because of her cardiomyopathy, a new ischemic evaluation would be indicated, and we should consider this after the falguni/cardioversion. Return to the office for follow-up with me a couple weeks after the cardioversion and also plan future follow-up with Dr. Trejo around April. Lovely Nuñez, ANP- Nurse Practitioner with [facility] Card[facility] This note is dictated and transcribed using [employer] Fluency Direct Software. Lye Peel Operator variancesmay occur. Despite proofreading, typographical errors may occur. Cosigned by Anderson Trejo MD at 02/18/2021 12:59 PM CDT documented in this encounter Miscellaneous Notes * Addendum Note - Abisai Rodríguez MA - 02/17/2021 3:30 PM CDTAddended by: ABISAI RODRÍGUEZ on: 02/18/2021 04:15 PM Modules accepted: Orders documented in this encounter Plan of Treatment Not on file documented as of this encounter Procedures Procedure Name Priority Date/Time Associated Diagnosis Comments ECG 12-LEAD Routine 02/17/2021 Persistent atrial fibrillation (CMS/HCC) documented in this encounter Results * ECG 12 lead (02/17/2021) us Lovely Nuñez NP ECG ORDERABLES Final Res ult documented in this encounter Visit Diagnoses Diagnosis Persistent atrial fibrillation (HCC)- Primary Atrial fibrillation Thrombus of left atrial appendage Chronic anticoagulation Encounter for long-term (current) use of anticoagulants AMOR (obstructive sleep apnea) Obstructive sleep apnea (adult) (pediatric) Cardiomyopathy, unspecified type (HCC) Coronary artery disease involving [place] coronary artery of north fork heart without angina pectoris Carotid atherosclerosis, unspecified laterality History of CVA (cerebrovascular accident) Transient ischemic attack (TIA), and cerebral infarction without residual deficits documented in this encounter Discontinued Medications Medication Sig Discontinue Reason Start Date End Da te metoprolol XL (TOPROL-XL) 100 mg 24 hr tablet Take 1.5 tablets (150 mg total) by mouth daily 02/08/2021 02/17/2021 documented as of this encounter Historical Medications * This list may reflect changes made after this encounter. PARoxetine (PAXIL) 20 mg tablet Take 40 mg by mouth every morning 12/21/2020 11/14/2021 added in this encounter Care Teams Labor Conciliator Relationship Specialty Start Date End Date Jovita Bermudez MD PCP - General Family Medicine 12/14/20 Zan Lee MD Surgeon Neurosurgery 01/02/19 documented as of this encounter
--- OUTSIDE RECORDS SUMMARY | 2024-08-30 18:57 | XMS_ITS | Encounter Summary ---
Author Organization [facility] Medical [facility] Address [address] [place] [address] Care Team Providers Care Component Engineer Name Role Phone Zan Lee MD Unavailable [phone] Jovita Bermudez MD Primary Care Provider [phone] Reason for Visit * Reason Comments Atrial Fibrillation Cardiomyopathy Coronary Artery Disease 3 mo f/u * Consultation (Routine) - Closed Specialty Diagnoses / Procedures Referred By Contac t Referred To Contact Cardiology Diagnoses Coronary atherosclerosis of [place] coronary artery Jovita Bermudez MD Phone: tel: fax: [facility] Medical [facility] Cardiology [address] [address] Phone: tel: fax: Referral ID Status Reason Start Date Expiration Date V isits Requested Visits Authorized [id number] Closed Specialty Services Required 12/14/2020 12/09/2021 12 12 Encounter Details Date Type Department Care Team (Late st Contact Info) Description 11/14/2021 3:00 PM CDT Office Visit [facility] Medical [facility] Cardiology [address] [address] Lovely Nuñez NP [address] [place] [address] [place] [address] Persistent atrial fibrillation (HCC) (Primary Dx); Thrombus of left atrial appendage; Chronic anticoagulation; Chronic HFrEF (heart failure with reduced ejection fraction) (CMS/HCC) (HCC); Coronary artery disease involving [place] coronary artery of [place] heart without angina pectoris Social History Tobacco [...] on file 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 Gender Identity Not on file Sexual Orientation Not on file documented as of this encounter Last Filed Vital Signs Vital Sign Reading Time Taken Comments Blood Pressure 100/58 11/14/2021 3:17 PM CDT Pulse 89 11/14/2021 3:17 PM CDT Temperature - - Respiratory Rate - - Oxygen Saturation 91% 11/14/2021 3:17 PM CDT Inhaled Oxygen Concentration - - Weight 101.2 kg (223 lb) 11/14/2021 3:17 PM CDT Height 165.1 cm (5' 5 ) 11/14/2021 3:17 PM CDT Body Mass Index 37.11 11/14/2021 3:17 PM CDT documented in this encounter Progress Notes * Lovely Nuñez NP - 11/14/2021 3:00 PM CDT Images from the original note were not included. [facility] Cardiology [address] [place] [address] Date of Visit: 11/14/2021 Patient ID: Tressa Myers 1955 Chief Complaint Patient presents with ??? Atrial Fibrillation ??? Cardiomyopathy ??? Coronary Artery Disease 3 mo f/u Tressa Myers is a 66 y.o. female [...] for AMOR. She was previously followed by sand drier Dr. Nunn but had not seen him in about 2 years. She presented to [facility] on 09/07/2020 with complaint of [...] small ASD, moderate to severe TR and nqkf-ju-eawelqny MR. There was also large intramural plaque [...] and she ask for the information for [place] [facility]. She feels quite tired [...] evidence ASD, moderate to severe TR and dnba-xy-hleaiyrf MR. Dr. Trejo recommended switching from Eliquis [...] in R leg with bruising admitted to [place] 11/26/20 INR elevated at 8.1 better now. [...] CAT visit - she was hospitalized at [facility] in [place] for pneumonia and pyelonephritis 2 weeks ago. [...] does not reveal. Pt recently admitted to [facility] for pneumonia feeling a lot better CT [...] She denies chest pain, palpitations or bleeding. Records that I personally reviewed on the day of this visit include: (the interpretation is outlined in the HPI above) 08/24/[address] Trejo I have also reviewed: allergies, current medications, past family history, past medical history, past social history, past surgical history and problem list Medical History: Past Medical History: Diagnosis Date ??? Anxiety [...] septum, probably diastolic dysfunction. LHC (05/07/13) (1) [id number]% narrowings from proximal to distal RCA (2) [...] 2 diabetes mellitus (HCC) ??? Wears dentures Past Surgical History: Procedure Laterality Date ??? CAROTID STENT Left ??? CORONARY ARTERY BYPASS GRAFT ??? NH LIGATE FALLOPIAN TUBE Tubal Ligation - (Added by TW Conv) ??? [place] PRQ TRLUML CORONARY STENT W/ANGIO ONE ART/BRFORMERLY [facility] Cath Stent Placement - Xience TOM to LCX (04/2013) (Added by TW Conv) ??? TUBAL LIGATION Social History Tobacco Use ??? Smoking status: Former Smoker Packs/day: 0.25 Types: Cigarettes ??? Smokeless tobacco: Never Used ??? Tobacco comment: history of 2ppd for 30yrs prior to cutting back. Substance Use Topics ??? Alcohol use: Not Currently Comment: occasionally. ??? Drug use: Yes Types: Marijuana Comment: couple times weekly Family History Problem Relation Age of Onset ??? Coronary artery disease Mother Family history of coronary artery disease - Premature CAD (Added by TW Conv) ??? Heart disease Mother ??? Other (CARDIAC ARREST) Mother CAUSE OF ??? Coronary artery disease Other Family history of coronary artery disease - Premature CAD (Added by TW Conv) ??? Other (COVID-19) Brother CAUSE OF Review of Systems Constitutional: Negative for diaphoresis, fever, malaise/fatigue, weight gain and weight loss. HENT: Negative for hearing loss. Eyes: Negative for visual disturbance. Cardiovascular: Positive for dyspnea on exertion. Negative for chest pain, claudication, leg swelling, orthopnea, palpitations, paroxysmal nocturnal dyspnea and syncope. Respiratory: Negative for cough, hemoptysis, snoring and wheezing. Hematologic/Lymphatic: Does not bruise/bleed easily. Skin: Negative for poor wound healing and rash. Musculoskeletal: Negative for joint pain and myalgias. Gastrointestinal: Negative for heartburn, nausea and vomiting. Genitourinary: Negative for hematuria. Neurological: Negative for dizziness, headaches and light-headedness. Psychiatric/Behavioral: Negative for depression. The patient is not nervous/anxious. Vital Signs: BP 100/58 (BP Location: Left arm, Patient Position: Sitting) Pulse 89 Ht 165.1 cm (5' 5 ) Wt 101.2 kg (223 lb) SpO2 91% BMI 37.11 kg/m?? Physical Exam Constitutional: General: She is not in acute distress. Appearance: She is well-developed. HENT: Head: Normocephalic and atraumatic. Nose: Comments: Wearing a mask Eyes: General: No scleral icterus. Conjunctiva/sclera: Conjunctivae normal. Neck: Vascular: No JVD. Trachea: No tracheal deviation. Cardiovascular: Rate and Rhythm: Normal rate. Rhythm irregular. Heart sounds: Normal heart sounds. No murmur heard. Pulmonary: Effort: Pulmonary effort is normal. No respiratory distress. Breath sounds: Normal breath sounds. Musculoskeletal: Right lower leg: No edema. Left lower leg: No edema. Skin: General: Skin is warm and dry. Neurological: Mental Status: She is alert and oriented to person, place, and time. Psychiatric: Mood and Affect: Mood normal. Behavior: Behavior normal. Allergies Allergen Reactions ??? Cefazolin Rash and Wheezing ??? Lisinopril Cough Current Outpatient Medications: ??? ascorbic acid (VITAMIN C) 500 mg tablet,chewable, Take 500 mg by mouth nightly, Disp: , Rfl: ??? aspirin 81 mg enteric coated tablet, Take 81 mg by mouth nightly , Disp: , Rfl: ??? celecoxib (CeleBREX) 200 mg capsule, Take 200 mg by mouth daily, Disp: , Rfl: ??? cholecalciferol, vitamin D3, (VITAMIN D3 ORAL), Take by mouth, Disp: , Rfl: ??? dilTIAZem CD/XR/XT (CARDIZEM CD,DILACOR XR) 120 mg 24 hr capsule, Take 120 mg by mouth daily, Disp: , Rfl: ??? empagliflozin (JARDIANCE) 10 mg tablet, 25 mg , Disp: , Rfl: ??? furosemide (LASIX) 40 mg tablet, Take 20 mg by mouth daily , Disp: , Rfl: ??? levothyroxine (SYNTHROID, LEVOTHROID) 75 mcg tablet, Take 75 mcg by mouth opener verifier packer customs before breakfast , Disp: , Rfl: 3 ??? losartan (COZAAR) 25 mg tablet, Take 1 tablet (25 mg total) by mouth daily (Patient taking differently: Take 50 mg by mouth daily), Disp: 30 tablet, Rfl: 11 ??? metFORMIN (GLUCOPHAGE) 1,000 mg tablet, Take 1,000 mg by mouth 2 (two) times a day with meals ,Disp: , Rfl: 3 ??? metoprolol XL (TOPROL-XL) 100 mg 24 hr tablet, TAKE TWO TABLETS BY MOUTH EVERY DAY, Disp: 180 tablet, Rfl: 2 ??? PARoxetine (PAXIL) 40 mg tablet, Take 40 mg by mouth every morning, Disp: , Rfl: ??? simvastatin (ZOCOR) 40 [...] ??? warfarin (COUMADIN) 2 mg tablet, Take 1.5 tablets (3 mg total) by mouth daily Take 4mg daily oras directed by physician., Disp: 30 tablet, Rfl: 0 Lab Results Component Value [...] this visit: Persistent atrial fibrillation (HCC) (Primary) Thrombus of left atrial appendage Chronic anticoagulation Chronic HFrEF (heart failure with reduced ejection fraction) ([facility]/HCC) (HCC) Coronary artery disease involving [place] coronary artery of [place] heart without angina pectoris Plan/Recommendations: She remains in atrial fibrillation. Her rate is controlled. Her atrial fibrillation could be responsible for her ALEXANDER. I would be reasonable to attempt restoring sinus rhythm to see if her dyspnea will improve. She has a history of left atrial appendage thrombus, so we will schedule a FALGUNI +/-cardioversion to reassess the thrombus 1st and then cardiovert her if appropriate. For now continue warfarin, diltiazem and metoprolol. Continue follow-up with the anticoagulation clinic here in our office. CHF appears compensated at this time. Most likely her CHF is also partly responsible for her ALEXANDER. Continue metoprolol, losartan, furosemide, Jardiance. Coronary artery disease appears stable although her ALEXANDER could be an anginal equivalent. If her ALEXANDER would not improve with caodaism of sinus rhythm, another consideration would be to perform a new ischemic evaluation. Continue simvastatin and aspirin. Return to the office to see Dr. Trejo in 3-4 months. Call us sooner with questions or concerns. 11/14/2021 JONI Salmon- Nurse Practitioner with [facility] Card[facility] This note is dictated and transcribed using [employer] Direct Software. Rail Car Welder variancesmay occur. Despite proofreading, typographical errors may occur. documented in this encounter Plan of Treatment Not on file documented as of this encounter Visit Diagnoses Diagnosis Persistent atrial fibrillation (HCC)- Primary Atrial fibrillation Thrombus of left atrial appendage Chronic anticoagulation Encounter for long-term (current) use of anticoagulants Chronic HFrEF (heart failure with reduced ejection fraction) ([facility]/HCC) (HCC) Coronary artery disease involving [place] coronary artery of [place] heart without angina pectoris documented in this encounter Discontinued Medications Medication Sig Discontinue Reason Start Date End Da te PARoxetine (PAXIL) 20 mg tablet Take 40 mg by mouth every morning Dose adjustment 12/21/2020 11/14/2021 documented as of this encounter Historical Medications * This list may reflect changes made after this encounter. PARoxetine (PAXIL) 40 mg tablet Take 0.5 tablets (20 mg total) by mouth every morning 09/07/2021 added in this encounter Care Teams Component Engineer Relationship Specialty Start Date End Date Jovita Bermudez MD PCP - General Family Medicine 12/14/20 Zan Lee MD Surgeon Neurosurgery 01/02/19 documented as of this encounter
--- OUTSIDE RECORDS SUMMARY | 2024-08-30 18:57 | XMS_ITS | Encounter Summary ---
Author Organization [facility] Address [address] [place] [address] Care Team Providers Care Production Quality Analyst Name Role Phone Zan Lee MD Unavailable [phone] Jovita Bermudez MD Primary Care Provider [phone] Encounter Details Date Type Department Care Team (Late st Contact Info) Description 03/14/2021 Telephone [facility] Cardiology [address] [place] [address] Anderson Trejo MD [address] [facility] [address] [place] [id number] Social History Tobacco Use Types Packs/Day Years [...] on file Legal 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 She verbalized understanding. * Telephone Encounter - Rupinder Lewis - 03/14/2021 9:34 AM CDT Pt called requesting call back from clinical staff in regard to her upcoming RANDALL.Thank you Contact:[phone] documented in this encounter Plan of Treatment Not on file documented as of this encounter Visit Diagnoses Not on filedocumented in this encounter Care Teams Production Quality Analyst Relationship Specialty Start Date End Date Jovita Bermudez MD PCP - General Family Medicine 12/14/20 Zan Lee MD Surgeon Neurosurgery 01/02/19 documented as of this encounter
--- OUTSIDE RECORDS SUMMARY | 2024-08-30 18:57 | XMS_ITS | Encounter Summary ---
Author Organization [facility] Address [address] [place] [address] Care Team Providers Care Prevention Coordinator Name Role Phone Zan Lee MD Unavailable [phone] Jovita Bermudez MD Primary Care Provider [phone] Encounter Details Date Type Department Care Team (Late st Contact Info) Description 03/17/[address] 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 Advised pt to call her PCP for assistance with her knee pain-she verbalized understanding and appreciated the callback. * Telephone Encounter - Anne-Marie Rodríguez - 03/17/2021 8:03 AM CDT Pt called states she is having leg pain. Dr. Trejo instructed her to take tylenol. Pt is asking if Dr. Trejo can prescribe her something stronger. Contact: documented in this encounter Plan of Treatment Not on file documented as of this encounter Visit Diagnoses Not on filedocumented in this encounter Care Teams Prevention Coordinator Relationship Specialty Start Date End Date Jovita Bermudez MD PCP - General Family Medicine 12/14/20 Zan Lee MD Surgeon Neurosurgery 01/02/19 documented as of this encounter
--- OUTSIDE RECORDS SUMMARY | 2024-08-30 18:57 | XMS_ITS | Encounter Summary ---
Author Organization [facility] Address [address] [place] [address] Care Team Providers Care Career Development Director Name Role Phone Zan Lee MD Unavailable [phone] Jovita Bermudez MD Primary Care Provider [phone] Encounter Details Date Type Department Care Team (Late st Contact Info) Description 05/18/2022 Telephone [facility] Cardiology [address] [place] [address] Anderson Trejo MD [address] [facility] [address] [place] [phone] Social History Tobacco Use Types Packs/Day Years [...] on file 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 * Telephone Encounter - Rupinder Landers - 05/18/2022 11:45 AM CDT Pt requesting a call states AD mentioned her seeing an EP,inquiring on that.Please advise.Thank you Contact:[phone] documented in this encounter Plan of Treatment Not on file documented as of this encounter Visit Diagnoses Not on filedocumented in this encounter Care Teams Career Development Director Relationship Specialty Start Date End Date Jovita Bermudez MD PCP - General Family Medicine 12/14/20 Zan Lee MD Surgeon Neurosurgery 01/02/19 documented as of this encounter
--- OUTSIDE RECORDS SUMMARY | 2024-08-30 18:57 | XMS_ITS | Encounter Summary ---
Author Organization [facility] Address [address] [place] [address] Care Team Providers Care Sueding Machine Operator Name Role Phone Zan Lee MD Unavailable [phone] Jovita Bermudez MD Primary Care Provider [phone] Encounter Details Date Type Department Care Team (Late st Contact Info) Description 06/16/2021 Telephone [facility] Cardiology [address] [place] [address] Anderson Trejo MD [address] [facility] [address] [place] [phone] Social History Tobacco Use Types Packs/Day Years [...] on file 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 Pt had PCP f/u appt and was told she was back in [facility] and they wanted to order an echo and start her on diltiazem. Pt told them she has a bible reader already and would prefer to follow up with them instead. Pt said per her watch her HR has been 60-70's and she is feeling fine. Pt requested f/u with us-scheduled her for SIMI appt with CT for next week. Will send to CT as FYI. * Telephone Encounter - Anne-Marie Rodríguez - 06/16/2021 12:32 PM CDT Pt states she was at [facility] in [place] discharged Monday 06/11. Pt requesting call from nurse to discuss. Contact: documented in this encounter Plan of Treatment Not on file documented as of this encounter Visit Diagnoses Not on filedocumented in this encounter Care Teams Sueding Machine Operator Relationship Specialty Start Date End Date Jovita Bermudez MD PCP - General Family Medicine 12/14/20 Zan Lee MD Surgeon Neurosurgery 01/02/19 documented as of this encounter
--- OUTSIDE RECORDS SUMMARY | 2024-08-30 18:57 | XMS_ITS | Encounter Summary ---
Author Organization [facility] Address [address] [place] [address] Care Team Providers Care Drywall Stripper Helper Name Role Phone Zan Lee MD Unavailable [phone] Jovita Bermudez MD Primary Care Provider [phone] Encounter Details Date Type Department Care Team (Late st Contact Info) Description 11/01/2021 Telephone [facility] Cardiology [address] [place] [address] Anderson Trejo MD [address] [facility] [address] [place] [phone] Social History Tobacco Use Types Packs/Day Years [...] on file 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 They will fax ICATIONS TRAINER * Telephone Encounter - Rupinder Lewis - 11/01/2021 8:22 AM CST Pt requesting INR results from 3/3 states she had drawn at [facility].Please advise.Thank you Contact:[phone] ICATIONS TRAINER documented in this encounter Plan of Treatment Not on file documented as of this encounter Visit Diagnoses Not on filedocumented in this encounter Care Teams Drywall Stripper Helper Relationship Specialty Start Date End Date Jovita Bermudez MD PCP - General Family Medicine 12/14/20 Zan Lee MD Surgeon Neurosurgery 01/02/19 documented as of this encounter
--- OUTSIDE RECORDS SUMMARY | 2024-08-30 18:57 | XMS_ITS | Encounter Summary ---
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 Gender Identity Not on file Sexual Orientation Not on file documented as of this encounter Plan of Treatment Not on file documented as of this encounter Procedures Procedure Name Priority Date/Time Associated Diagnosis Comments PROTIME-INR Routine 02/17/2021 documented in this encounter Results * (ABNORMAL) Protime-INR (02/17/2021) INR 3.00(A) 0.9 - 1.1 EXTERNAL LAB Blood specimen (specimen) us Historical Provider LAB BLOOD ORDERABLES Jennifer doran Result EXTERNAL LAB documented in this encounter Visit Diagnoses Not on filedocumented in this encounter Care Teams Licensed Mental Health Professional Relationship Specialty Start Date End Date Jovita Bermudez MD PCP - General Family Medicine 12/14/20 Zan Lee MD Surgeon Neurosurgery 01/02/19 documented as of this encounter
--- OUTSIDE RECORDS SUMMARY | 2024-08-30 18:57 | XMS_ITS | Encounter Summary ---
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 Gender Identity Not on file Sexual Orientation Not on file documented as of this encounter Plan of Treatment Not on file documented as of this encounter Procedures Procedure Name Priority Date/Time Associated Diagnosis Comments PROTIME-INR Routine 10/27/2021 documented in this encounter Results * (ABNORMAL) Protime-INR (10/27/2021) INR 1.80(A) 0.9 - 1.1 EXTERNAL LAB Blood specimen (specimen) us Historical Provider LAB BLOOD ORDERABLES Jennifer doran Result EXTERNAL LAB documented in this encounter Visit Diagnoses Not on filedocumented in this encounter Care Teams Plsql Developer Relationship Specialty Start Date End Date Jovita Bermudez MD PCP - General Family Medicine 12/14/20 Zan Lee MD Surgeon Neurosurgery 01/02/19 documented as of this encounter
--- OUTSIDE RECORDS SUMMARY | 2024-08-30 18:57 | XMS_ITS | Encounter Summary ---
Author Organization [facility] Address [address] [place] [address] Care Team Providers Care Director Water And Waste Services Name Role Phone Zan Lee MD Unavailable [phone] Jovita Bermudez MD Primary Care Provider [phone] Encounter Details Date Type Department Care Team (Late st Contact Info) Description 11/15/[address] 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 Instructions reviewed, and written copy sent home with pt. Pt verbalizes understanding. Advised to call the office with any questions. Pt requests new order for INR be faxed to lab. Order faxed. documented in this encounter Plan of Treatment Scheduled Orders Name Type Priority Associated Diagnoses Orde r Schedule Protime-INR Lab Routine Chronic anticoagulation 52 Occurrences starting 11/15/2021 until 11/15/2022 documented as of this encounter Visit Diagnoses Diagnosis Chronic anticoagulation- Primary Encounter for long-term (current) use of anticoagulants documented in this encounter Care Teams Director Water And Waste Services Relationship Specialty Start Date End Date Jovita Bermudez MD PCP - General Family Medicine 12/14/20 Zan Lee MD Surgeon Neurosurgery 01/02/19 documented as of this encounter
--- OUTSIDE RECORDS SUMMARY | 2024-08-30 18:57 | XMS_ITS | Encounter Summary ---
Author Organization [facility] Address [address] [place] [address] Care Team Providers Care Operations Lieutenant Name Role Phone Zan Lee MD Unavailable [phone] Jovita Bermudez MD Primary Care Provider [phone] Reason for Visit * Reason Comments Atrial Fibrillation 1 mo f/u Cardiomyopathy * Consultation (Routine) - Closed Specialty Diagnoses / Procedures Referred By Contac t Referred To Contact Cardiology Diagnoses Coronary atherosclerosis of [place] coronary artery Jovita Bermudez MD Phone: tel: fax: [facility] [address] [place] [address] Phone: tel: fax: Referral ID Status Reason Start Date Expiration Date V isits Requested Visits Authorized [id number] Closed Specialty Services Required 12/14/2020 12/09/2021 12 12 Encounter Details Date Type Department Care Team (Latest Contact Info) Description 12/14/2020 3:45 PM CDT Office Visit [facility] Cardiology [address] [place] [address] Anderson Trejo MD [facility] [address] [place] [id number] Coronary artery disease involving [place] coronary artery of [place] heart without angina pectoris (Primary Dx); HFrEF (heart failure with reduced ejection fraction) (CMS/HCC); Persistent atrial fibrillation (CMS/HCC); Cardiomyopathy, unspecified type (CMS/HCC); Thrombus of left atrial appendage; Hypertension associated with diabetes (CMS/HCC); Dyslipidemia associated with type 2 diabetes mellitus (CMS/HCC); Chronic anticoagulation; Hx of CABG; 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); Tobacco abuse; Coronary atherosclerosis of [place] coronary artery Social History Tobacco Use Types Packs/Day Years [...] on file 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 Gender Identity Not on file Sexual Orientation Not on file documented as of this encounter Last Filed Vital Signs Vital Sign Reading Time Taken Comments Blood Pressure 126/70 12/14/2020 3:45 PM CDT Pulse 98 12/14/2020 3:45 PM CDT Temperature - - Respiratory Rate - - Oxygen Saturation 96% 12/14/2020 3:45 PM CDT Inhaled Oxygen Concentration - - Weight 97.6 kg (215 lb 1.6 oz) 12/14/2020 3:45 P M CDT Height 165.1 cm (5' 5 ) 12/14/2020 3:45 PM CDT Body Mass Index 35.79 12/14/2020 3:45 PM CDT documented in this encounter Progress Notes * Anderson Trejo MD - 12/14/2020 3:45 PM CDT Images from the original note were not included. DATE OF VISIT: 12/14/2020 CHIEF COMPLAINT Chief Complaint Patient presents with ??? Atrial Fibrillation 1 mo f/u ??? 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 Stable, A. Fib controlled. Continue current medical therapy and systemic anticoagulation for stroke risk reduction. CHADS2 Vasc score 6. -Cont warfarin goal INR 2-3. Monthly INR or sooner as directed. If any sig change in weight or medsincl ABx. -Toprol XL 150mg daily -Plan for RANDALL/CV with Anesthesiology once AMOR and/or CPAP recommendations are clarified. RANDALL required due to STEVEN thrombus previously noted. -Explained limitation with antiarrhythmic therapy due to STEVEN thrombus as well and that we are in anunfortunate holding pattern as I do not want to hold A/C with active intracardiac thrombus for LHC until we have observed resolution. 2. NYHA class III sxs, well compensated HFrEF. CHF counseling performed. Follow daily weight, less than 2 g daily sodium intake, medication compliance. Call w/ wt gain >3lb in 24 hrs or worsening edema and/or ALEXANDER. -EF 30% by RANDALL -Optimize GDMT. On Losartan and Toprol XL. Ideally, would prefer Entresto, however, pt had RAVEN-I cough with Lisinopril. 3. BP controlled. Monitor BP on routine basis. Call with readings. Continue consistent cardiovascular exercise, weight loss, medication compliance, and low- sodium diet. 4. Lipids personally reviewed 12/14/20 LDL 17, quite low, well controlled. Goal LDL <70. Continuestatin therapy and lifestyle modification. I question validity of this POCT today. If accurate would recommend reduction in Simvastatin to 20mg qhs. 5. Would prefer if AMOR present and CPAP recommended she start on tx prior to RANDALL/CV to increase likelihood for maintenance ofSR. 6. DM managed by PCP. 7. No anginal sxs. Aggressive CAD risk modification counseling performed. Continue current medical therapy. Notify office immediately with anginal symptoms. -ASA 81mg daily given carotid dz, CAD, CVA. All questions answered to her satisfaction. Over 50% of this visit counseling atrial flutter, cardiomyopathy/CHF, CAD, HTN, lipids, medications, lifestyle modification. Follow up in the office in 1-2 months or sooner as needed. Thank you for allowing me the privilege of participating in the care this very pleasant patient. Please do not hesitate to contact me with any additional questions or concerns. DENIS Myers is a 65 y.o. female with a PMHx of coronary artery disease s/p CABG in 2013, with postoperative AFib, history of TIA with subsequent bilateral carotid artery intervention (left carotid stent December 2018 and right CEA May 2019 Dr Lee), HTN, HLD, DM, remote tobacco use, marijuana use, high risk for AMOR. She was previously followed by wringer machine operator Dr. Nunn but had not seen him in about 2 years. She presented to [facility] on 09/07/2020 with complaint of progressively [...] small ASD, moderate to severe TR and nejn-ex-alupispk MR. There was also large intramural plaque [...] and she ask for the information for [facility]. She feels quite tired [...] evidence ASD, moderate to severe TR and jeuc-in-zipupnkk MR. Dr. Trejo recommended switching from Eliquis [...] in R leg with bruising admitted to [facility] 11/26/20 INR elevated at 8.1 better now. Feeling ok she states breathing is ok, some ALEXANDER but much better overall, no CP palps or dizziness or falls. No melena or BRBPR. On Toprol XL 150mg daily. Had sleep study last night. MEDICAL HISTORY Past Medical History: Diagnosis Date ??? Anxiety ??? Atrial fibrillation (CMS/HCC) 09/07/2020 ??? Cardiac rhythm disturbance ??? Cardiomyopathy (CMS/HCC) 09/07/2020 ??? Carotid atherosclerosis ??? COPD (chronic obstructive pulmonary disease) (CMS/HCC) ??? Diabetes mellitus (CMS/HCC) ??? Diaphragm paralysis ??? GERD (gastroesophageal reflux disease) ??? Heart failure (CMS/HCC) ??? Heart failure (CMS/HCC) ??? Heart failure (CMS/HCC) ??? History of other diseases of the circulatory system, not elsewhere classified Coronary Artery Disease - Was having SOB outpatient. Had stress echo/EKG outpatient 05/07/13, 1.[address] segment depression noted inferiorly and [address] segment depression noted laterally; EF60-65%, hypokinesis of the distal septum, probably diastolic dysfunction. LHC (05/07/13) (1) Rtfghuc80% narrowings from proximal to distal RCA (2) R large PDA with 50% near ostial narrowing, (3) * ??? Hyperlipidemia ??? Hypertension ??? Hypothyroidism ??? Obesity ??? Paroxysmal atrial flutter (CMS/HCC) ??? Personal history of other diseases of the circulatory system History of hypertension - (Added by TW Conv) ??? Personal history of other diseases of the digestive system History of esophageal reflux - (Added by TW Conv) ??? Personal history of other mental and behavioral disorders History of anxiety disorder - (Added by TW Conv) ??? Stroke (CMS/HCC) ??? Type 2 diabetes mellitus (CMS/HCC) ??? Wears dentures SOCIAL HISTORY reports that [...] tablet,chewable aspirin 81 mg enteric coated tablet busPIRone (BUSPAR) 10 mg tablet empagliflozin (JARDIANCE) 10 mg tablet furosemide (LASIX) 40 mg tablet levothyroxine (SYNTHROID, LEVOTHROID) 75 mcg tablet losartan (COZAAR) 50 mg tablet metFORMIN (GLUCOPHAGE) 1,000 mg tablet metoprolol XL (TOPROL-XL) 100 mg 24 hr tablet simvastatin (ZOCOR) 40 mg tablet SITagliptin (JANUVIA) 100 mg tablet warfarin (COUMADIN) 2 mg tablet PARoxetine (PAXIL) 20 mg tablet ALLERGIES Allergies Allergen Reactions ??? Cefazolin Rash and Wheezing ??? Lisinopril Cough REVIEW OF SYSTEMS Review of Systems Constitution: Positive for malaise/fatigue. Negative for fever, weight [...] and are negative. PHYSICAL EXAM Vitals BP 126/70 (BP Location: Left arm, Patient Position: Sitting) Pulse 98 Ht 165.1 cm (5' 5 ) Wt 97.6 kg (215 lb 1.6 oz) SpO2 96% BMI 35.79 kg/m?? Weight: 97.6 kg (215 lb 1.6 oz) Height: 165.1 cm (5' 5 ) Body mass index is 35.79 kg/m??. Physical Exam Constitutional: She is oriented to person, place, and time. She appears well- developed and well-nourished. HENT: Head: Normocephalic. Nose: Nose normal. Eyes: EOM are normal. Neck: No JVD present. No thyromegaly present. Cardiovascular: Normal rate. An irregularly irregular rhythm present. Murmur heard. Early systolic murmur is present with a grade of 3/6. Pulmonary/Chest: Effort normal. No respiratory distress. She has no wheezes. She has no rales. Abdominal: Soft. Bowel sounds are normal. She exhibits no distension and no abdominal bruit. There is no abdominal tenderness. obese Musculoskeletal: General: Edema present. Normal range of motion. Cervical back: Neck supple. Comments: Bruising around R knee resolving, trace RLE edema Neurological: She is alert and oriented to person, place, and time. She has normal strength. No cranial nerve deficit. Skin: Skin is warm, dry and intact. Psychiatric: She has a normal mood and affect. Her behavior is normal. LABS AND OTHER DIAGNOSTIC TESTS Lab Results Component Value Date WBC 8.4 06/04/2019 HGB 11.8 (L) 06/04/2019 HCT 37.0 06/04/2019 CREATININE 0.39 (L) 06/04/2019 POTASSIUM 4.0 06/04/2019 BUNSER 10 06/04/2019 Results for orders placed or performed in visit on 12/13/20 Protime-INR Result Value Ref Range INR 2.70 (A) 0.90 - 1.10 I have personally reviewed EKG, electronic medical record, admission records from [facility]11/26/20. and bloodwork/lipids. Grisel Trejo MD, [facility] This note is dictated and transcribed using [employer] Direct Software. Medical Center Director variancesmay occur. Despite proofreading, typographical errors may occur. documented in this encounter Miscellaneous Notes * Addendum Note - Coral Cannon MA - 12/14/2020 3:45 PM CDTAddended by: CORAL CANNON on: 12/14/2020 04:41 PM Modules accepted: Orders documented in this encounter Plan of Treatment Not on file documented as of this encounter Procedures Procedure Name Priority Date/Time Associated Diagnosis Comments POCT LIPID PANEL Routine 12/14/2020 4:39 PM CDT Coronary artery disease involving [place] coronary artery of [place] heart without angina pectoris Dyslipidemia associated with type 2 diabetes mellitus ([facility]/HCC) documented in this encounter Results * POCT lipid panel (12/14/2020 4:39 PM CDT) Cholesterol, POC 132 mg/dL Comment:GLU = 182 HDL, POC 45 mg/dL Triglycerides, POC 346 mg/dL LDL Cholesterol POC 17 mg/dL Chol/HDL Ratio, POC 2.9 Non-HDL Cholesterol, POC 86 mg/dL Cholesterol Total, POC 132 mg/dL Capillary blood 12/14/2020 4 :39 PM CDT Anderson Trejo MD POINT OF CARE TEST ORDER MONA Final Result documented in this encounter Visit Diagnoses Diagnosis Coronary artery disease involving [place] coronary artery of [place] heart without angina pectoris- Primary HFrEF (heart failure with reduced ejection fraction) (CMS/HCC) (HCC) Persistent atrial fibrillation (HCC) Atrial fibrillation Cardiomyopathy, unspecified type (HCC) Thrombus of left atrial appendage Hypertension associated with diabetes (HCC) Unspecified essential hypertension Dyslipidemia associated with type 2 diabetes mellitus (HCC) Chronic anticoagulation Encounter for long-term (current) use of anticoagulants Hx of CABG Postsurgical aortocoronary bypass status 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 busPIRone (BUSPAR) 10 mg tabletIndications :Generalized Anxiety Disorder Take 10 mg by mouth 3 (three) times a day 05/16/2021 added in this encounter Orders Outpatient Referral Count Last Ordered Date Fir st Ordered Date AMB REFERRAL TO CARDIOLOGY 1 12/20/2020 documented in this encounter Care Teams Operations Lieutenant Relationship Specialty Start Date End Date Jovita Bermudez MD PCP - General Family Medicine 12/14/20 Zan Lee MD Surgeon Neurosurgery 01/02/19 documented as of this encounter
--- OUTSIDE RECORDS SUMMARY | 2024-08-30 18:57 | XMS_ITS | Encounter Summary ---
Author Organization [facility] Address [address] [place] [address] Care Team Providers Care Customer Greeter Name Role Phone Zan Lee MD Unavailable Jovita Bermudez MD Primary Care Provider [phone] Encounter Details Date Type Department Care Team (Late st Contact Info) Description 03/31/2021 Anticoagulation Visit [facility] Medical [facility] Cardiology [address] [place] [phone] Magalis England RN Social History Tobacco Use Types Packs/Day [...] on file Legal 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 Gender Identity Not on file Sexual Orientation Not on file documented as of this encounter Plan of Treatment Not on file documented as of this encounter Procedures Procedure Name Priority Date/Time Associated Diagnosis Comments PROTIME-INR Routine 03/31/2021 documented in this encounter Results * (ABNORMAL) Protime-INR (03/31/2021) INR 2.40(A) 0.9 - 1.1 EXTERNAL LAB Blood specimen (specimen) us Historical Provider LAB BLOOD ORDERABLES Jennifer doran Result EXTERNAL LAB documented in this encounter Visit Diagnoses Not on filedocumented in this encounter Care Teams Customer Greeter Relationship Specialty Start Date End Date Jovita Bermudez MD PCP - General Family Medicine 12/14/20 Zan Lee MD Surgeon Neurosurgery 01/02/19 documented as of this encounter
--- OUTSIDE RECORDS SUMMARY | 2024-08-30 18:57 | XMS_ITS | Encounter Summary ---
Author Organization [facility] Address [address] [place] [address] Care Team Providers Care Machine Operator General Name Role Phone Zan Lee MD Unavailable [phone] Jovita Bermudez MD Primary Care Provider [phone] Reason for Referral * Cardiology (Routine) - Closed Specialty Diagnoses / Procedures Referred By Contac t Referred To Contact Diagnoses Paroxysmal atrial flutter (CMS/HCC) (HCC) Procedures Extended/Snf Holter Patch (>48 hours up to 7 days) Lovely Nuñez NP [address] [address] Phone: tel: fax: [facility] Referral ID Status Reason Start Date Expiration Date Visits Re quested Visits Authorized [id number] Closed 07/04/2021 06/30/2022 1 1 IBLE PERSONAL PROPERTY APPRAISER Encounter Details Date Type Department Care Team (Late st Contact Info) Description 07/04/2021 Telephone [facility] Cardiology [address] [address] Lovely Nuñez NP [address] [address] Social History Tobacco Use Types Packs/Day [...] on file Legal Sex Female 3:00 AM TANGIBLE PERSONAL PROPERTY APPRAISER Gender Identity Not on file Sexual Orientation Not on file documented as of this encounter Miscellaneous Notes * Telephone Encounter - Ilene Hicks RN - 07/04/2021 8:11 AM TANGIBLE PERSONAL PROPERTY APPRAISER ----- Message from Lovely Nuñez NP sent at 07/01/2021 4:42 PM CDT ----- Please call the patient to let her know Dr. Trejo I reviewed the results of her echocardiogram. Good news, her LV function has improved which means the pumping function of her heart has gotten stronger. Her EF is now 50-55%. 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 During the echo she was in AFib and her heart was beating faster than it should. Dr. Trejo wants her to come in next week and have a 5 day extended Holter monitor placed to see how much AFib she is having and how fast her heart is beating while in AFib. This will help us determine if we keep her on the diltiazem and metoprolol or if we change her to a different medication like amiodarone. Called pt and reviewed message from CT-pt verbalized understanding, ordered heart monitor-scheduledpt to come to office tomorrow afternoon for placement. IBLE PERSONAL PROPERTY APPRAISER IBLE PERSONAL PROPERTY APPRAISER documented in this encounter Plan of Treatment Not on file documented as of this encounter Results * Extended/Snf Holter Patch (>48 hours up to 7 days) (07/05/2021 2:57 PM TANGIBLE PERSONAL PROPERTY APPRAISER) Anatomical Region Laterality Modality Other Narrative 07/18/2021 8:29 PM TANGIBLE PERSONAL PROPERTY APPRAISER AMBULATORY SHEET ROCK LAYER REPORT Patient Name: Tressa Myers Date of [...] was used to complete this document, therefore, assembly mechanic variances may occur. Janelle Jensen MD, [facility] 07/18/21 [facility] Cardiology Procedure Note Janelle Jensen MD - 07/18/2021 AMBULATORY SHEET ROCK LAYER REPORT Patient Name: Tressa Myers Date of [...] software was used to complete this document, therefore,assembly mechanic variances may occur. Janelle Jensen MD, [facility] 07/18/21 [facility] Cardiology Lovely Nuñez NP CV [facility]IAC [facility] Final Result documented in this encounter Visit Diagnoses Diagnosis Paroxysmal atrial flutter (CMS/HCC) (HCC)- Primary Paroxysmal atrial flutter (CMS/HCC) (HCC) documented in this encounter Care Teams Machine Operator General Relationship Specialty Start Date End Date Jovita Bermudez MD PCP - General Family Medicine 12/14/20 Zan Lee MD Surgeon Neurosurgery 01/02/19 documented as of this encounter
--- OUTSIDE RECORDS SUMMARY | 2024-08-30 18:57 | XMS_ITS | Encounter Summary ---
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 Gender Identity Not on file Sexual Orientation Not on file documented as of this encounter Plan of Treatment Not on file documented as of this encounter Procedures Procedure Name Priority Date/Time Associated Diagnosis Comments PROTIME-INR Routine 09/16/2021 documented in this encounter Results * (ABNORMAL) Protime-INR (09/16/2021) INR 2.00(A) 0.9 - 1.1 EXTERNAL LAB Blood specimen (specimen) us Historical Provider LAB BLOOD ORDERABLES Jennifer doran Result EXTERNAL LAB documented in this encounter Visit Diagnoses Not on filedocumented in this encounter Care Teams Application Assistant Relationship Specialty Start Date End Date Jovita Bermudez MD PCP - General Family Medicine 12/14/20 Zan Lee MD Surgeon Neurosurgery 01/02/19 documented as of this encounter
--- OUTSIDE RECORDS SUMMARY | 2024-08-30 18:57 | XMS_ITS | Encounter Summary ---
Author Organization [facility] Medical [facility] Address [address] [place] [address] Care Team Providers Care Hand Touch Up Painter Name Role Phone Zan Lee MD Unavailable Jovita Bermudez MD Primary Care Provider [phone] Reason for Referral * Cardiology (Routine) - Closed Specialty Diagnoses / Procedures Referred By Contjuani t Referred To Contact Diagnoses Cardiomyopathy, unspecified type (HCC) Procedures Transthoracic Echo Complete W Doppler/CF Lovely Sawant NP [address] [address] Phone: tel: fax: [facility] Referral ID Status Reason Start Date Expiration Date Visits Re quested Visits Authorized [id number] Closed 05/16/2021 06/15/2022 1 1 Reason for Visit * Reason Comments Hospital Follow Up * Consultation (Routine) - Closed Specialty Diagnoses / Procedures Referred By Contjuani t Referred To Contact Cardiology Diagnoses Coronary atherosclerosis of hyd[place] coronary artery Jovita Bermudez MD Phone: tel: fax: [facility] Medical [facility] Cardiology [address] [address] Phone: tel: fax: Referral ID Status Reason Start Date Expiration Date V isits Requested Visits Authorized [id number] Closed Specialty Services Required 12/14/2020 12/09/2021 12 12 Encounter Details Date Type Department Care Team (Late st Contact Info) Description 05/16/2021 3:00 PM CDT Office Visit [facility] Cardiology [address] [place] [address] Lovely Sawant NP [address] [place] [address] Cardiomyopathy, unspecified type (HCC) (Primary Dx); Hypotension due to drugs; Paroxysmal atrial fibrillation (CMS/HCC) (HCC); Chronic anticoagulation; Coronary artery disease involving [place] coronary artery of [place] heart without angina pectoris Social History Tobacco [...] on file Legal 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 Female 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 LOOM 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 Gender Identity Not on file Sexual Orientation Not on file documented as of this encounter Last Filed Vital Signs Vital Sign Reading Time Taken Comments Blood Pressure 82/60 05/16/2021 3:13 PM CDT Pulse 72 05/16/2021 3:13 PM CDT Temperature - - Respiratory Rate - - Oxygen Saturation 96% 05/16/2021 3:13 PM CDT Inhaled Oxygen Concentration - - Weight 101.2 kg (223 lb) 05/16/2021 3:13 PM CDT Height 165.1 cm (5' 5 ) 05/16/2021 3:13 PM CDT Body Mass Index 37.11 05/16/2021 3:13 PM CDT documented in this encounter Ordered Prescriptions Prescription Sig Dispense Quantity Refills Last Filled Start Date End Date losartan (COZAAR) 25 mg tabletIndications: Cardiomyopathy, unspecified type (HCC) Take 1 tablet (25 mg total) by mouth daily 30 tablet 11 05/16/2021 04/19/2022 documented in this encounter Progress Notes * JoaquinLovely Raisa, ARVIN - 05/16/2021 3:00 PM CDT Images from the original note were not included. [facility] Cardiology [address] [place] [id number] Date of Visit: 05/16/2021 Patient ID: Tressa Rodas 1955 Chief Complaint: Tressa Rodas is a 66 y.o. female who is an established patient of Dr. Trejo returning to the office for follow-up of her atrial fibrillation and cardiomyopathy. History of Present Illness: Tressa Rodas is a 66 y.o. female with a past medical history of coronary artery disease s/p CABGin 2013, with postoperative AFib, history of TIA with subsequent bilateral carotid artery intervention (left carotid stent December 2018 and right CEA May 2019 Dr Lee), HTN, HLD, DM, remote tobacco use, marijuana use, high risk for AMOR. She was previously followed by trolley coach driver Dr. Nunn but had not seen him in about 2 years. She presented to [facility] on 09/07/2020 with complaint of [...] a smallASD, moderate to severe TR and hoet-sc-vagielgr MR. There was also large intramural plaque [...] and she ask for the information for [facility]. She feels quite tired [...] evidence ASD, moderate to severe TR and ykuo-yg-lskkmlhd MR. Dr. Trejo recommended switching from Eliquis to warfarin. Patient took her 1st dose of warfarin a week ago and went to the lab today for her 1st INR. Today she has no specific complaints or concerns. ECG showed atrial fibrillation with variable ventricular response, rate 94 beats per minute. 12/14/20 Had J&J shot. Had swelling in R leg with bruising admitted to [facility] 11/26/20 INR elevated at 8.1 better now. [...] her weight gain to bad eating habits. Records that I personally reviewed on the day of this visit include: (the interpretation is outlined in the HPI above) 02/17/2021 office note from myself I have also reviewed: allergies, current medications, [...] Does not bruise/bleed easily. Skin: Positive for poor wound healing. Negative for itching and rash. Musculoskeletal: Negative for joint pain and myalgias. Gastrointestinal: Negative for heartburn, nausea and vomiting. Genitourinary: Negative for hematuria. Neurological: Negative for dizziness, headaches and light-headedness. Psychiatric/Behavioral: Negative for depression. The patient is not nervous/anxious. Vital Signs: BP (!) 82/60 (BP Location: Left arm, Patient Position: Sitting) Pulse 72 Ht 165.1 cm (5' 5 ) Wt 101.2 kg (223 lb) SpO2 96% BMI 37.11 kg/m?? Physical Exam Constitutional: General: [...] Take by mouth, Disp: , Rfl: ??? empagliflozin (JARDIANCE) 10 mg tablet, TAKE 2 DAILY, Disp: , Rfl: ??? furosemide (LASIX) 40 mg tablet, Take 20 mg by mouth daily , Disp: , Rfl: ??? levothyroxine (SYNTHROID, LEVOTHROID) 75 mcg tablet, Take 75 mcg by mouth commercial real estate lender before breakfast , Disp: , Rfl: 3 ??? metFORMIN (GLUCOPHAGE) 1,000 mg tablet, Take [...] physician.), Disp: 60 tablet, Rfl: 11 ??? losartan (COZAAR) 25 mg tablet, Take 1 tablet (25 mg total) by mouth daily, Disp: 30 tablet, Rfl: 11 Lab Results Component Value Date POTASSIUM 4.0 06/04/2019 BUNSER 10 06/04/2019 CREATININE 0.39 (L) 06/04/2019 CHOL 151 12/30/2018 TRIG 135 12/30/2018 LDL 15 02/23/2014 LDLCALC 85 12/30/2018 HDL 39 (L) 12/30/2018 12/14/2020 lipids: TC 132, HDL 45, TG 346, LDL 17 Assessment: Diagnoses and all orders for this visit: Cardiomyopathy, unspecified type (HCC) (Primary) - losartan (COZAAR) 25 mg tablet; Take 1 tablet (25 mg total) by mouth daily - Transthoracic Echo Complete W Doppler/CF; Future Hypotension due to drugs Paroxysmal atrial fibrillation (CMS/HCC) (HCC) Chronic anticoagulation Coronary artery disease involving [place] coronary artery of [place] heart without angina pectoris Plan/Recommendations: She has cardiomyopathy with EF 30-35% on echocardiogram earlier this year. She is not exhibiting any signs or symptoms of decompensated heart failure but she is hypotensive. I reduced her furosemide at the last visit. Today I instructed her to reduce losartan to 25 mg daily. Continue furosemide 20 mg daily and metoprolol succinate 200 mg daily. I will ask Dr. Trejo what he advises in regards torepeating her echo to reassess her LV function. Cardioversion was planned in February but she spontaneously converted to sinus rhythm. On exam today she sounds like she is remaining in sinus rhythm. Continue metoprolol succinate 200 mg daily. She is tolerating anticoagulation with warfarin to reduce her risk of stroke. She did have left atrial appendage thrombus seen earlier this year. Continue warfarin. Continue ASA 81mg daily and simvastatin given carotid dz, CAD, CVA. Because of her cardiomyopathy, a new ischemic evaluation would be indicated, and I will ask Dr. Trejo if he recommends stress testing versus cardiac catheterization. I will follow-up with her over the phone regarding recommendation for ischemic evaluation. Keep the previously scheduled follow-up visit with Dr. Trejo in July. Call sooner with questions or concerns. [id number] Addendum: This visit was reviewed with Dr. Trejo. He recommends repeating a transthoracic echocardiogram to reassess her LV function and STEVEN thrombus before considering ischemic evaluation. JONI Salmon- Nurse Practitioner with [facility] This note is dictated and transcribed using e[employer] Direct Software. Principal Software Engineer variancesmay occur. Despite proofreading, typographical errors may occur. documented in this encounter Miscellaneous Notes * Addendum Note - Lovely Sawant NP - 05/16/2021 3:00 PM CDTAddended by: LOVELY SAWANT on: 05/16/2021 04:32 PM Modules accepted: Orders documented in this encounter Plan of Treatment Not on file documented as of this encounter Results * TRANSTHORACIC ECHO (TTE) COMPLETE W DOPPLER/CF W CONTRAST (07/01/2021 1:00 PM CDT) Anatomical Region Laterality Modality Ultrasound 07/01/2021 11:5 2 AM CDT Narrative 07/01/2021 4:09 PM CDT [facility] Cardiology [address], [place] [address] [address], [place] [address] P:[phone] P:[phone] Echocardiographic Report Patient Name: TRESSA RODAS : 1955 Study Date: 07/01/2021 11:52:49 AM Gender: F Tech: Location: [place] Ref.Provider: LOVELY SAWANT Height(Cm): 165 BSA: 2.05 Weight(Kg): 98.43 Heart Rate: 98 BP: 104/73 Quality: Definity contrast agent used to enhance endocardial border definition Order Provider: LOVELY SAWANT Procedures: Echocardiographic Report: Transthoracic echocardiogram with [...] Findings: Interpretation Site: Exam was interpreted at [facility] [place]. Left Ventricle: Normal left ventricular size. Definity [...] Procedure Note Raudel Anderson MD - 07/01/2021 [facility] Cardiology [address] [place] [address] [address], [place] [address] P:[phone] P:[phone] Echocardiographic Report Patient Name: TRESSA RODASPatient ID: [id number] : [id number] Date: 07/01/2021 11:52:49 AM Gender: FAccession #: [id number] Tech: GMLocation: [place] Ref.Provider: LOVELY SAWANTHeight(Cm): 165 BSA: 2.05Weight(Kg): 98.43 Heart Rate: 98BP: 104/73 Quality: Definity contrast agent used to enhance endocardial borderdefinitionOrder Provider: LOVELY SAWANT Procedures: Echocardiographic Report: Transthoracic echocardiogram with [...] m/s ACS MM 0.93 cm MV Decel Epau382 [ 150 - 200 ] msec PV Peak Vel0.97 [ 0.40 - 0.80 ] m/s TR Peak Vel2.73 [ 0.40 - 0.80 ] m/s TR Peak PG 30mmHg RVSP45.00 mmHg E'0.16 E/E' 8 Findings: Interpretation Site: Exam was interpreted at [facility]. Left Ventricle: Normal left ventricular size. Definity [...] By: Raudel Anderson MD 2021-07-01 16:09:52 CDT Lovely Sawant NP CV ECHO PROCEDURES Final Result documented in this encounter Visit Diagnoses Diagnosis Cardiomyopathy, unspecified type (HCC)- Primary Hypotension due to drugs Other iatrogenic hypotension Paroxysmal atrial fibrillation (CMS/HCC) (HCC) Atrial fibrillation Chronic anticoagulation Encounter for long-term (current) use of anticoagulants Coronary artery disease involving [place] coronary artery of [place] heart without angina pectoris Cardiomyopathy, unspecified type (HCC) documented in this encounter Discontinued Medications Medication Sig Discontinue Reason Start Date End Da te busPIRone (BUSPAR) 10 mg tabletIndications:Gene ralized Anxiety Disorder Take 10 mg by mouth 3 (three) times a day Discontinued by another clinician 05/16/2021 losartan (COZAAR) 50 mg tablet Take 50 mg by mouth nightly Dose adjustment 05/16/2021 documented as of this encounter Historical Medications * This list may reflect changes made after this encounter. traMADoL (ULTRAM) 50 mg tablet 05/04/2021 cholecalciferol, vitamin D3, (VITAMIN D3 ORAL) Take by mouth UNABLE TO FIND Apple cider vinegar 450 mg - takes 2 daily 03/27/2023 celecoxib (CeleBREX) 200 mg capsule Take 200 mg by mouth daily 04/14/2021 03/27/2023 added in this encounter Care Teams Hand Touch Up Painter Relationship Specialty Start Date End Date Jovita Bermudez MD PCP - General Family Medicine 12/14/20 Zan Lee MD Surgeon Neurosurgery 01/02/19 documented as of this encounter
--- OUTSIDE RECORDS SUMMARY | 2024-08-30 18:57 | XMS_ITS | Encounter Summary ---
Author Organization [facility] Address [address] [place] [address] Care Team Providers Care Home Day Care Provider Name Role Phone Zan Lee MD Unavailable [phone] Jovita Bermudez MD Primary Care Provider [phone] Encounter Details Date Type Department Care Team (Late st Contact Info) Description 01/18/2021 Telephone [facility] Cardiology [address] [place] [address] Lovely Nuñez NP [address] [place] [address] Social History Tobacco Use Types [...] on file Legal Sex Female 3:00 AM APPLICATION PROGRAMMER ANALYST Gender Identity Not on file Sexual Orientation Not on file documented as of this encounter Miscellaneous Notes * Telephone Encounter - Sandy Ratliff RN - 01/18/2021 4:41 PM CDT See anticoag note * Telephone Encounter - Marli Skelton - 01/18/2021 4:25 PM CDT Patient called about the results of her blood work she had done today. She stated she has a broken blood vessel in her eye and the last time her dose of warfarin needed to be lowered. Cb# [phone] documented in this encounter Plan of Treatment Not on file documented as of this encounter Visit Diagnoses Not on filedocumented in this encounter Care Teams Home Day Care Provider Relationship Specialty Start Date End Date Jovita Bermudez MD PCP - General Family Medicine 12/14/20 Zan Lee MD Surgeon Neurosurgery 01/02/19 documented as of this encounter
--- OUTSIDE RECORDS SUMMARY | 2024-08-30 18:58 | XMS_ITS | Encounter Summary ---
Author Organization [facility] Medical [facility] Address [address] [place] [address] Care Team Providers Care Bank Examiner Name Role Phone Robbie Haywood MD Primary Care Provider [phone] Zan Lee MD Unavailable [phone] Reason for Visit * Reason Onset Date Comments Patient Assistance Form 11/29/2020 Encounter Details Date Type Department Care Team (Late st Contact Info) Description 11/29/[address] [facility] Cardiology [address] [place] [id number] Jazmyne Cannon MA Patient Assistance Form Social History Tobacco Use Types Packs/Day Years [...] on file Legal Sex Female 3:00 AM AMBULANCE ATTENDANT Gender Identity Not on file Sexual Orientation Not on file documented as of this encounter Miscellaneous Notes * Telephone Encounter - Jazmyne Cannon MA - 11/30/2020 11:53 AM CDT Thank you * Telephone Encounter - Lovely Nuñez NP - 11/30/2020 11:46 AM CDT Thank you for getting the records. I reviewed them and it appears that she is currently supposed vanessa on warfarin, AND NO LONGER ELIQUIS. Therefore, we should not fill out the patient assistance form. Thank you. * Telephone Encounter - Jazmyne Cannon MA - 11/30/2020 8:14 AM CDT Records on your desk for review. * Telephone Encounter - Lovely Nuñez NP - 11/29/2020 5:16 PM CDT Please try to retrieve the ER record from 11/26/2020 so I can find out if the change was made to her anticoagulation. Thank you. * Telephone Encounter - Jazmyne Cannon MA - 11/29/2020 4:26 PM CDT Alcides Murry mailed an assistance form for diana along with a med list dated, 09/24/20, with zeferinoqugilles listed. Current med list shows she is on Warfarin. Can we complete form for her to switch meds? documented in this encounter Plan of Treatment Not on file documented as of this encounter Visit Diagnoses Not on filedocumented in this encounter Care Teams Bank Examiner Relationship Specialty Start Date End Date Robbie Haywood MD [address] [place] [address] PCP - General 12/29/18 12/13/20 Zan Lee MD [address] [place] [address] Surgeon Neurosurgery 01/02/19 documented as of this encounter
--- OUTSIDE RECORDS SUMMARY | 2024-08-30 18:58 | XMS_ITS | Encounter Summary ---
Author Organization [facility] Medical [facility] Address [address] [place] [address] Care Team Providers Care Administrative Resident Name Role Phone Robbie Haywood MD Primary Care Provider [phone] Zan Lee MD Unavailable [phone] Encounter Details Date Type Department Care Team (Late st Contact Info) Description 09/11/2020 Orders Only [facility] Cardiology [address] [place] [address] Raudel Anderson MD [address] [place] [id number] Social History Tobacco Use Types Packs/Day Years [...] on file Legal Sex Female 3:00 AM COMBATANT SWIMMER Gender Identity Not on file Sexual Orientation Not on file documented as of this encounter Plan of Treatment Not on file documented as of this encounter Procedures Procedure Name Priority Date/Time Associated Diagnosis Comments CARDIOLOGY DOCUMENT SCAN Routine 09/11/2020 documented in this encounter Results * SCAN - CARDIOLOGY (09/11/2020) Anatomical Region Laterality Modality Other us Raudel Anderson MD CV CARDIAC SERVICES [facility] Final Result documented in this encounter Visit Diagnoses Not on filedocumented in this encounter Care Teams Administrative Resident Relationship Specialty Start Date End Date Robbie Haywood MD [address] [place] [address] PCP - General 12/29/18 12/13/20 Zan Lee MD [address] [place] [address] Surgeon Neurosurgery 01/02/19 documented as of this encounter
--- OUTSIDE RECORDS SUMMARY | 2024-08-30 18:58 | XMS_ITS | Encounter Summary ---
Author Organization [facility] Address [address] [place] [address] Care Team Providers Care Export Traffic Department Manager Name Role Phone Robbie Haywood MD Primary Care Provider [phone] Zan Lee MD Unavailable [phone] Encounter Details Date Type Department Care Team (Late st Contact Info) Description 10/21/2020 Anticoagulation Visit [facility] Cardiology [address] [place] [address] Ilene Hicks, JUSTICE Social History [...] on file Legal Sex Female 3:[address] CLERK Gender Identity Not on file Sexual Orientation Not on file documented as of this encounter Plan of Treatment Not on file documented as of this encounter Visit Diagnoses Not on filedocumented in this encounter Care Teams Export Traffic Department Manager Relationship Specialty Start Date End Date Robbie Haywood MD [address] [place] [address] PCP - General 12/29/18 12/13/20 Zan Lee MD [address] [place], [place] [id number] Surgeon Neurosurgery 01/02/19 documented as of this encounter
--- OUTSIDE RECORDS SUMMARY | 2024-08-30 18:58 | XMS_ITS | Encounter Summary ---
Author Organization [facility] Address [address] [place] [address] Care Team Providers Care Special Needs Librarian Name Role Phone Robbie Haywood MD Primary Care Provider [phone] Zan Lee MD Unavailable [phone] Encounter Details Date Type Department Care Team (Late st Contact Info) Description 06/03/2019 7:34 AM CDT Anesthesia Event [facility] Operating Room [address] [place] [address] Evan Jara MD [id number] [place] [address] [place] [address] Anesthesia Record Procedure Summary Procedure Name Responsible Anesthesiologist Anesthesia Start Time Anesthesia Stop Time right carotid endarterectomy (Right: Neck) Evan Jara MD 06/03/19 0734 06/03/19 1112 Events Date Time Event Comment 06/03/2019 0649 0734 An Start 0734 An Start Data 0734 In Room 0740 An Induction The patient was reevaluated immediately before moderate or deep sedation use and before anesthesia induction. 0744 An Intubation 0752 an mamie now 0809 Anesthesia Ready 0830 Proc Start 0929 Vascular Clamp On 1006 Vascular Clamp Off 1015 Quick Note Two antiemetics administered for PONV prophylaxis 1031 Proc Fin 1049 An Extubation 1103 an stop data 1106 Out of Room 1107 Handoff to RN I completed my handoff to the receiving nurse during which we: 1. Patient identified 2. Responsible provider identified 3. Pertinent medical history reviewed 4. Procedure type and surgical course discussed 5. Intraoperative anesthetic management and any significant issues discussed 6. Expectations and concerns for postop period discussed 7. Questions solicited from receiving nurse 8. Patient disposition at the time of handoff: PACU 1112 An Stop Meds Name Total midazolam 2 mg fentaNYL 200 mcg lidocaine (CARDIAC) syringe 2 % 40 mg propofol 100 mg propofol 650.7 mg rocuronium 70 mg ondansetron 4 mg glycopyrrolate 0.4 mg neostigmine 3 mg phenylephrine (ANNABELLA-SYNEPHRIN E) 25,000 mcg in sodium chloride 0.9% 250 mL (100 mcg/mL) infusion 6.59 mg niCARdipine (CARDENE) 25,000 mcg in sodium chloride 0.9% 250 mL (100 mcg/mL) infusion 2.18 mg clindamycin (CLEOCIN) 600 mg /50 mL in sodium chloride 0.9% (premix) piggyback 600 mg 600 mg dexamethasone 4 mg/ml 4 mg lidocaine laryngotracheal (LTE) solution 4 % 4 mL remifentanil (ULTIVA) 2,500 mcg in sodium chloride 0.9% 50 mL (50 mcg/mL) infusion 1.72 mg heparin 1,000 unit/ml 7,500 Units phenylephrine 300 mcg Lactated Ringer's (LR) infusion 1,000 mL NS 0.9% 800 mL * Agents Name O2 Air Sevoflurane Inspired Sevoflurane * Blood No blood administrations on file. Lines, Drains, and Airways Type Details Placement Removal Peripheral IV Placement Date: 06/03/19; Placement Time: 0641; Catheter Size: 18 G; Orientation: Left; Location: Forearm; Site Prep: Chlorhexidine; Insertion Attempts: 1; Patient Tolerance: Tolerated well; Removal Date: 06/04/19; Removal Time: 1435; Removal Reason: Per protocol 06/03/19 0641 by Fozia Mata RN 06/04/19 1435 by Jeaneth Rapp RN ETT Placement Date: 06/03/19; Placement Time: 0816 (created via procedure documentation); Mask Ventilation: 2; Technique: Direct laryngoscopy; Type: ETT - single; Single Lumen Tube Size: 7.5 mm; Cuffed: Yes; Laryngoscope: Humphrey; Blade Size: 2; Location: Oral; Grade View: Grade I; Insertion Attempts: 1; Placement Verification: Auscultation, Capnometry; Airway Comment: ETT placed by Sarah, SRNA ; Removal Date: 06/03/19; Removal Time: 1049 06/03/19 0816 by Jazmyne Lan CRNA 06/03/19 1049 by Jazmyne Lan CRNA Arterial Line Placement Date: 06/03/19; Placemnt Time: 816 (created via procedure documentation); Size: 20 G; Orientation: Left; Location: Radial; Securement: Taped, Transparent dressing; Removal Date: 06/04/19; Removal Time: 05; Removal Reason: Per order 06/03/19 08 by Jazmyne Lan CRNA 06/04/19 0540 by Sindhu Olvera RN Peripheral IV Placement Date: 06/03/19; Placement Time: 816 (created via procedure documentation); Catheter Size: 18 G; Orientation: Right; Location: Forearm; Site Prep: Alcohol; Insertion Attempts: 1; Removal Date: 06/04/19; Removal Time: 1430; Removal Reason: Per protocol 06/03/19 08 by Jazmyne Lan, KIN 06/04/19 1430 by Jeaneth Rapp RN RETIRED Surgical Site 06/03/19; 0916; Ri ght; Neck; 06/04/19; 1435 06/03/19 0916 by Elisabet Rodriguez, [facility] 06/04/19 1435 by Jeaneth Rapp RN Closed/Suction/Open Drain 06/03/19; 1012; No; 1; Right; Neck; Bulb; 10 Fr.; Per order 06/03/19 1012 by Elisabet Rodriguez, [employer]ICE SALES REPRESENTATIVE 06/04/19 1100 by Jeaneth Rapp RN documented in this encounter Social History Tobacco Use Types Packs/Day Years [...] file Legal Sex Female 3:00 AM [employer] Gender Identity Not on file Sexual Orientation Not on file documented as of this encounter OR Notes * Anesthesia Postprocedure Evaluation - Richar Morris MD - 06/03/2019 12:45 PM CDT Patient: Tressa Myers Procedure Summary Date: 06/03/19 Room / Location: OPERATING ROOM 3 / OPERATING ROOM Anesthesia Start: 733 Anesthesia Stop: 1111 Procedure: right carotid endarterectomy (Right Neck) Diagnosis: 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) (Bilateral carotid artery occlusion [I65.23]) (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) [I63.132]) Provider: Zan Lee MD Responsible Provider: Evan Jara MD Anesthesia Type: general ASA Status: 3 Anesthesia Type: general Last vitals BP 98/51 Pulse 80 Temp 37.4 ??C (99.4 ??F) (Tympanic) Resp 20 SpO2 96% Anesthesia Post Evaluation Patient location during evaluation: PACU Patient participation: complete - patient participated Level of consciousness: fully awake Pain score: 3 Pain management: adequate Airway patency: patent and adequate Evidence of recall: no Anesthetic complications: no Cardiovascular status: acceptable Respiratory status: acceptable and room air Hydration status: acceptable Pt is: normothermic Nausea/Vomiting status: none * Anesthesia Procedure Notes - Jazmyne Lan CRNA - 06/03/2019 8:17 AM CDTAssociated Order(s): Peripheral IV Catheter Peripheral IV Catheter Patient location: pre-op holding Staff: Supervising provider: Jazmyne Lan CRNA Preprocedure prep: Prep solution: alcohol PPE: gloves PIV line: Laterality: right Site: forearm Catheter size: 18 g Technique: anatomical landmarks and direct visualization Procedure details: good blood return Number of attempts: 1 Assessment: Events: patient tolerated procedure well with no complications Additional comments: Placed by SULY Smith * Anesthesia Procedure Notes - Jazmyne Lan CRNA - 06/03/2019 8:16 AM CDTAssociated Order(s): Arterial Line Arterial Line Patient location: OR Indication: continuous blood pressure monitoring Staff: Supervising provider: Lalit Arreguin MD Procedure prep: Prep solution: chlorhexadine/alcohol Prep: provider hat/mask and sterile gloves Arterial line: Catheter size: 20 gauge Catheter length: 1 and 3/4 inch Laterality: left Site: radial artery Line secured: Tegaderm and tape Results: good waveform Number of attempts: 1 Assessment: Events: patient tolerated procedure well with no complications Additional comments: Placed by SULY Smith * Anesthesia Procedure Notes - Jazmyne Lan CRNA - 06/03/2019 8:15 AM CDTAssociated Order(s): Airway Airway Patient location: OR Urgency: elective Indications for airway management: anesthesia Difficult airway: no Staff: Supervising provider: Jazmyne Lan CRNA Emergent airway documentation: Risks and benefits discussed: yes Consent obtained: yes Consent given by: patient Airway prep: Preoxygenated: yes Patient position: sniffing Mask difficulty assessment: 2 - vent by mask + OA or adjuvant Spontaneous ventilation during airway: absent Sedation level during airway: GA Final airway details: Final airway type: endotracheal airway Tube type: ETT ETT size: 7.5 mm Cuffed: yes Technique used for successful ETT placement: direct laryngoscopy Devices/Methods used in placement: intubating stylet Insertion site: oral Blade type: Humphrey Blade size: 2 Cormack-Lehane (direct): grade I - full view of glottis Cuff volume: 8 mL Cuff inflated with: air ETT to lips: 21 cm Placement verified by: auscultation and CO2 detection Airway secured with: silk tape Number of attempts: 1 Additional comments: ETT placed by SULY Smith * Anesthesia Preprocedure Evaluation - Evan Jara MD - 05/28/2019 9:56 AM CDT Images from the original note were not included. Anesthesia Evaluation Tressa Myers is a 64 y.o. 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 Neurological + CVA/Stroke + ICA stenosis (S/P stent on the left) - left internal carotid artery and right internal carotid artery. Left ICA stenosis 70-99%. Right ICA stenosis 50-69%. + Psychiatric history - anxiety Cardiovascular + Hypertension + CAD + CABG - Prior CABG date: 2013. + Drug-eluting stent(s) - Prior stent(s) date: 04/2013. + Atrial fibrillation/flutter - Respiratory + COPD + Current smoker Gastrointestinal + GERD - does not use medication. Symptoms < 1x/week. Renal / Renal/ system: negative Musculoskeletal/Pain Musculoskeletal/Pain system: negative Endocrine / Other + Diabetes mellitus - Diabetes type 2. Outpatient insulin use: none. + Thyroid disease - hypothyroidism + Obesity (BMI >30) Functional Capacity Functional capacity: <4 METs Patient Active Problem List Diagnosis ??? CVA (cerebral vascular accident) (CMS/HCC) ??? Carotid atherosclerosis ??? Abnormal CXR ??? Essential hypertension ??? Type 2 diabetes mellitus with circulatory disorder, without long-term current use of insulin (CMS/HCC) ??? Acute cystitis without hematuria ??? Paroxysmal atrial flutter (CMS/HCC) ??? Coronary artery disease involving [place] coronary artery of [place] heart without angina pectoris ??? History of coronary artery stent placement ??? Hx of CABG ??? Tobacco abuse ??? Bilateral carotid artery occlusion ??? 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 Anxiety ??? Carotid atherosclerosis ??? COPD (chronic obstructive pulmonary disease) (CMS/HCC) ??? Diabetes mellitus (CMS/HCC) ??? Diaphragm paralysis ??? GERD (gastroesophageal reflux disease) ??? History of other diseases of the circulatory system, not elsewhere classified Coronary Artery Disease - Was having SOB outpatient. Had stress echo/EKG outpatient 05/07/13, 1.[address] segment depression noted inferiorly and [address] segment depression noted laterally; EF60-65%, hypokinesis of the distal septum, probably diastolic dysfunction. LHC (05/07/13) (1) Thmbyyt75% narrowings from proximal to distal RCA (2) R large PDA with 50% near ostial narrowing, (3) * ??? Hyperlipidemia ??? Hypertension ??? Hypothyroidism ??? Paroxysmal atrial flutter (CMS/HCC) ??? Personal [...] (CMS/HCC) ??? Type 2 diabetes mellitus (CMS/HCC) Past Surgical History: Procedure Laterality Date ??? CAROTID STENT Left ??? CORONARY ARTERY BYPASS GRAFT ??? VT LIGATE FALLOPIAN TUBE Tubal Ligation - (Added by TW Conv) ??? VT PRQ TRLUML CORONARY STENT W/ANGIO ONE ART/BRNCH Cath Stent Placement - Xience TOM to LCX (04/2013) (Added by TW Conv) ??? TUBAL LIGATION OB History None Allergies Allergen Reactions ??? Cefazolin Rash and Wheezing ??? Lisinopril Cough Med List Status: Nurse Complete Set By: Fozia Mata RN at 06/03/2019 6:26 AM Taking? Last Dose Start Date End Date Provider ascorbic acid (ascorbic acid with dee hips) 500 mg tablet,chewable 06/02/2019 -- -- Historical Provider, aspirin 81 mg enteric coated tablet 06/02/2019 -- -- Historical Provider, clopidogrel (PLAVIX) 75 mg tablet 06/02/2019 -- -- Historical Provider, levothyroxine (SYNTHROID, LEVOTHROID) 75 mcg tablet 06/02/2019 12/05/18 -- Historical Provider, losartan (COZAAR) 50 mg tablet 06/02/2019 -- -- Historical Provider, metFORMIN (GLUCOPHAGE) 1,000 mg tablet 06/02/2019 12/05/18 -- Historical Provider, metoprolol (LOPRESSOR) 25 mg tablet 06/02/2019 05/01/19 -- Historical Provider, PARoxetine (PAXIL) 20 mg tablet 06/02/2019 -- -- Historical Provider, simvastatin (ZOCOR) 40 mg tablet 06/02/2019 -- -- Historical Provider, SITagliptin (JANUVIA) 100 mg tablet 06/02/2019 -- -- Historical Provider, Current Facility-Administered Medications: ??? ceFAZolin (ANCEF) 1 gram/10 mL in sterile water (premix) - ADS Override Pull, , , ??? Lactated Ringer's (LR) infusion, 30 mL/hr, intravenous, Continuous, Last Rate: 30 mL/hr at 06/03/19 0642, 30 mL/hr at 06/03/19 0642 ??? niCARdipine (CARDENE) 25,000 mcg in sodium chloride 0.9% 250 mL (100 mcg/mL) infusion, 0.5-2.5 mcg/kg/min, intravenous, Titrated ??? sodium chloride 0.9% flush 0.5-20 mL, 0.5-20 mL, intra-catheter, PRN Social History Tobacco Use Smoking Status Former Smoker ??? Packs/day: 0.25 ??? Types: Cigarettes Smokeless Tobacco Never Used Tobacco Comment history of 2ppd for 30yrs prior to cutting back. Substance and Sexual Activity Alcohol Use Not Currently ??? Frequency: Never Comment: occasionally. Substance and Sexual Activity Drug Use Yes ??? Types: Marijuana Comment: couple times weekly Family History Problem Relation Age of Onset ??? Coronary artery disease Mother Family history of coronary artery disease - Premature CAD (Added by TW Conv) ??? Heart disease Mother ??? Coronary artery disease Other Family history of coronary artery disease - Premature CAD (Added by TW Conv) PAT Physical Exam Airway Exam: Mallampati: III Cervical ROM: FROM TM distance: normal Jaw ROM: full Cardiovascular Exam: Rate: regular Rhythm: regular Pulmonary Exam: LCTA, bilat EENT Exam: trachea midline Dental Exam: Upper dentures and lower dentures Skin Exam: Skin is warm. Turgor is normal. Abdominal exam: Abdomen is soft. Current state: Patient's current state is cooperative and interactive. Vitals: 06/03/19 0637 BP: 115/70 Pulse: 77 Resp: 16 Temp: 36.5 ??C (97.7 ??F) SpO2: 95% PT: No results found for requested labs within last 720 hours. INR: No results found for requested labs within last 720 hours. APTT: No results found for requested labs within last 720 hours. Hgb A1C: 05/29/2019: 9.0 %* CBC RBC: 05/29/2019: 4.49 M/cumm RDW: No results found for requested labs within last 720 hours. MCHC: 05/29/2019: 32.4 g/dL MCH: 05/29/2019: 30.7 pg MCV: 05/29/2019: 94.9 fL Hct: 05/29/2019: 42.6 % Hgb: 05/29/2019: 13.8 g/dL WBC: 05/29/2019: 8.6 K/cumm MPV: 05/29/2019: 10.4 fL Platelets: 05/29/2019: 324 K/cumm RDW CV: 05/29/2019: 12.0 % RDW Sd: 05/29/2019: 41.9 fL BMP Glucose: 06/03/2019: 142 mg/dL Calcium: 05/29/2019: 9.4 mg/dL Sodium: 05/29/2019: 140 mmol/L Potassium: 05/29/2019: 4.2 mmol/L CO2: 05/29/2019: 22 mmol/L Chloride: 05/29/2019: 103 mmol/L BUN: 05/29/2019: 32 mg/dL* Creatinine: 05/29/2019: 0.81 mg/dL Carotid US 12/30/18: 1. SUBOPTIMAL EXAMINATION DUE TO ANATOMIC FACTORS. 2. SEVERE STENOSIS RIGHT INTERNAL CAROTID ARTERY. MEASURED DIAMETER STENOSIS IS 65%. ELEVATED VELOCITY SUPPORTS A SEVERE STENOSIS IN THE 70-79% RANGE. 3. MEASURED DIAMETER STENOSIS RIGHT CAROTID BULB OF 74%. 4. MODERATE STENOSES RIGHT COMMON CAROTID ARTERY AND RIGHT EXTRAFORAMINAL CAROTID ARTERY AND LEFT CAROTID BULB, MILD STENOSIS LEFT COMMON CAROTID ARTERY. 5. ANTEGRADE VERTEBRAL FLOW BILATERALLY. TTE 12/30/18: Normal left ventricular systolic function with no focal wall motion abnormalities. Normal left ventricular size. Normal left ventricular wall thickness. Ejection fraction is visually estimated at 60 %. Normal atrial septum. Saline contrast study performed without evidence of right to left shunt. Right Ventricular Systolic Pressure could not be estimated due to inadequate visualization of TR jet. No clear evidence for cardiac source of emboli. EKG 12/29/18: SINUS RHYTHM NONSPECIFIC ST \T\ T-WAVE ABNORMALITY BORDERLINE ECG compared with prior tracing , T wave inversions are less evident DOS Physical Exam Medical history, medications, and allergies reviewed. Attestation: I endorse the findings of the anesthesia pre-evaluation assessment dated: 06/03/2019. Airway Exam: Mallampati: II Cervical ROM: FROM TM distance: >4 Jaw ROM: full Cardiovascular Exam: Rate: regular Rhythm: regular Pulmonary Exam: LCTA, bilat Dental Exam: Upper dentures and lower dentures Current state: Patient's current state is cooperative. Anesthesia Plan ASA 3 Planned anesthesia: General Team communication plan: oral ET tube Invasive Monitors Planned: Invasive monitors planned: arterial line. Induction: Induction: intravenous. Postoperative Plan: Postoperative administration opioids intended. No postoperative mechanical ventilation intended. Patient's planned disposition post procedure is Floor. Informed Consent: Discussed plan with attending. Anesthesia plan and risks discussed with patient. Consent and Attending signature: I and/or my designee have discussed the anesthesia plan, benefits, possible alternatives, parental presence at time of induction (if indicated), and clinically relevant risks that may include dental injury, unintentional awareness, and/or other complications. The patient and/or parent/legal guardian understand, and agree to proceed. All questions answered. documented in this encounter Plan of Treatment Not on file documented as of this encounter Procedures Procedure Name Priority Date/Time Associated Diagnosis Comments PERIPHERAL LINE Routine 06/03/2019 8:17 AM CDT Procedure Note - Jazmyne Lan CRNA - 06/03/2019 8:17 AM CDTThis note is in progress. Peripheral IV Catheter Patient location: pre-op holding Staff: Supervising provider: Jazmyne Lan CRNA Preprocedure prep: Prep solution: alcohol PPE: gloves PIV line: Laterality: right Site: forearm Catheter size: 18 g Technique: anatomical landmarks and direct visualization Procedure details: good blood return Number of attempts: 1 Assessment: Events: patient tolerated procedure well with no complications Additional comments: Placed by SULY Smith ANESTHESIA ARTERIAL LINE PLACEMENT Routine 06/03/2019 8:16 AM CDT Procedure Note - Jazmyne Lan CRNA - 06/03/2019 8:16 AM CDTThis note is in progress. Arterial Line Patient location: OR Indication: continuous blood pressure monitoring Staff: Supervising provider: Lalit Arreguin MD Procedure prep: Prep solution: chlorhexadine/alcohol Prep: provider hat/mask and sterile gloves Arterial line: Catheter size: 20 gauge Catheter length: 1 and 3/4 inch Laterality: left Site: radial artery Line secured: Tegaderm and tape Results: good waveform Number of attempts: 1 Assessment: Events: patient tolerated procedure well with no complications Additional comments: Placed by SULY Smith VT AN ELECTIVE ENDOTRACHEAL AIRWAY Routine 06/03/2019 8:15 AM CDT Procedure Note - Jazmyne Lan CRNA - 06/03/2019 8:15 AM CDTThis note is in progress. Airway Patient location: OR Urgency: elective Indications for airway management: anesthesia Difficult airway: no Staff: Supervising provider: Jazmyne Lan CRNA Emergent airway documentation: Risks and benefits discussed: yes Consent obtained: yes Consent given by: patient Airway prep: Preoxygenated: yes Patient position: sniffing Mask difficulty assessment: 2 - vent by mask + OA or adjuvant Spontaneous ventilation during airway: absent Sedation level during airway: GA Final airway details: Final airway type: endotracheal airway Tube type: ETT ETT size: 7.5 mm Cuffed: yes Technique used for successful ETT placement: direct laryngoscopy Devices/Methods used in placement: intubating stylet Insertion site: oral Blade type: Humphrey Blade size: 2 Cormack-Lehane (direct): grade I - full view of glottis Cuff volume: 8 mL Cuff inflated with: air ETT to lips: 21 cm Placement verified by: auscultation and CO2 detection Airway secured with: silk tape Number of attempts: 1 Additional comments: ETT placed by SULY Smith documented in this encounter Visit Diagnoses Not on filedocumented in this encounter Administered Medications Inactive Administered Medications - up to 3 most recent administrations Medication Order MAR Action Action Date Dose Rate Site clindamycin (CLEOCIN) 600 mg/50 mL in sodium chloride 0.9% (premix) piggyback 600 mg 600 mg, intravenous, at 100 mL/hr, Administer over 30 Minutes, Every 8 hours scheduled, First dose on Sun06/03/19 at 0745, For 24 hours, Indications: Prophylaxis, SurgicalIndications:Prophylaxis, Surgical Given 06/03/2019 8:09 AM CDT 600 mg dexamethasone (DECADRON) 4 mg/mL injection Administer over 2 Minutes, As needed, Starting on Sun06/03/19 at 0820, Anesthesia Intra-op Given 06/03/2019 8:20 AM CDT 4 mg fentaNYL (SUBLIMAZE) preservative free injection intravenous, As needed, Starting on Sun06/03/19 at 0740, Anesthesia Intra-op Given 06/03/2019 10:54 AM CDT 25 mcg Given 06/03/2019 10:42 AM CDT 25 mcg Given 06/03/2019 8:28 AM CDT 50 mcg glycopyrrolate (ROBINUL) injection Administer over 1 Minutes, As needed, Starting on Sun06/03/19 at 1022, Anesthesia Intra-op Given 06/03/2019 10:22 AM CDT 0.4 mg heparin 1,000 unit/mL injection As needed, Starting on Sun06/03/19 at 0914, Anesthesia Intra-op Given 06/03/2019 9:14 AM CDT 7,500 Units Lactated Ringer's (LR) infusion 30 mL/hr, intravenous, Continuous, Starting on 10/8/19 at 0630 Rate/Dose Verify 06/04/2019 6:10 AM CDT 30 mL/hr 30 mL/hr Rate/Dose Verify 06/04/2019 1:55 AM CDT 30 mL/hr 30 mL/h r Rate/Dose Verify 06/04/2019 12:00 AM CDT 30 mL/hr 30 mL/ hr lidocaine (cardiac) (XYLOCAINE) preservative free injection intravenous, As needed, Starting on Sun06/03/19 at 0740, Anesthesia Intra-op, Indications: Ventricular ArrhythmiasIndications:Vent ricular Arrhythmias Given 06/03/2019 7:40 AM CDT 40 mg lidocaine (LTA) 4 % laryngotracheal solution As needed, Starting on Sun06/03/19 at 0744, Anesthesia Intra-op Given 06/03/2019 7:44 AM CDT 4 mL midazolam (VERSED) preservative free injection intravenous, Administer over 2 Minutes, As needed, Starting on Sun06/03/19 at 0732, Anesthesia Intra-op Given 06/03/2019 7:32 AM CDT 2 mg neostigmine (PROSTIGMIN) injection intravenous, Administer over 3 Minutes, As needed, Starting on Sun06/03/19 at 1022, Anesthesia Intra-op Given 06/03/2019 10:22 AM CDT 3 mg niCARdipine (CARDENE) 25,000 mcg in sodium chloride 0.9% 250 mL (100 mcg/mL) infusion 0.5-2.5 mcg/kg/min ? 101.6 kg (30.48-152.4 mL/hr, rounded to 30.5-152.4 mL/hr), 100 mcg/mL, intravenous, Titrated, Starting on Sun06/03/19 at 0600, Until Sun06/03/19 at 1344, Initial rate: 0.5 mcg/kg/min, Titrate: Up/Down, Titrate by: 0.5 mcg/kg/min, Every: 10 minutes, Goal: MAP, MAP Goal: 70-90 mmHg, Please send to OR tomorrow morning 06/03/2019, Routine Rate/Dose Change 06/03/2019 11:12 AM CDT 0.5 mcg/kg/min 30.5 mL/hr Rate/Dose Change 06/03/2019 11:10 AM CDT 0.7 mcg/kg/min 42 .7 mL/hr Rate/Dose Change 06/03/2019 10:58 AM CDT 0.9 mcg/kg/min 54 .9 mL/hr ondansetron (ZOFRAN) injection intravenous, Administer over 2 Minutes, As needed, Starting on Sun06/03/19 at 1015, Anesthesia Intra-op Given 06/03/2019 10:15 AM CDT 4 mg phenylephrine (ANNABELLA-SYNEPHRINE) 1 mg/10 mL (100 mcg/mL) in sodium chloride 0.9% (premix) As needed, Starting on Sun06/03/19 at 0930, Anesthesia Intra-op Given 06/03/2019 10:35 AM CDT 100 mcg Given 06/03/2019 10:32 AM CDT 50 mcg Given 06/03/2019 10:28 AM CDT 100 mcg phenylephrine (ANNABELLA-SYNEPHRINE) 25,000 mcg in sodium chloride 0.9% 250 mL (100 mcg/mL) infusion Continuous PRN, Starting on Sun06/03/19 at 0756, Anesthesia Intra-op Rate/Dose Change 06/03/2019 10:35 AM CDT 0.4 mcg/kg/min 24 mL/hr Restarted 06/03/2019 10:27 AM CDT 0.2 mcg/kg/min 11.98 mL /hr Rate/Dose Change 06/03/2019 10:06 AM CDT 0.4 mcg/kg/min 24 mL/hr propofol (DIPRIVAN) IV intravenous, As needed, Starting on Sun06/03/19 at 0740, Anesthesia Intra-op Given 06/03/2019 7:40 AM CDT 100 mg propofol (DIPRIVAN) IV Continuous PRN, Starting on Sun06/03/19 at 0810, Anesthesia Intra-op Rate/Dose Change 06/03/2019 10:19 AM CDT 20 mcg/kg/min 11.98 mL/hr Rate/Dose Change 06/03/2019 10:12 AM CDT 40 mcg/kg/min 23. 95 mL/hr New Bag 06/03/2019 8:10 AM CDT 50 mcg/kg/min 29.94 mL/h r remifentanil (ULTIVA) 2,500 mcg in sodium chloride 0.9% 50 mL (50 mcg/mL) infusion Continuous PRN, Starting on Sun06/03/19 at 0752, Anesthesia Intra-op Rate/Dose Change 06/03/2019 10:36 AM CDT 0.05 mcg/kg/min 5.99 mL/hr Rate/Dose Change 06/03/2019 10:31 AM CDT 0.08 mcg/kg/min 9 .58 mL/hr Rate/Dose Change 06/03/2019 9:48 AM CDT 0.1 mcg/kg/min 11. 98 mL/hr rocuronium (ZEMURON) injection intravenous, As needed, Starting on Sun06/03/19 at 0741, Anesthesia Intra-op Given 06/03/2019 8:32 AM CDT 20 mg Given 06/03/2019 7:41 AM CDT 50 mg sodium chloride 0.9% infusion Continuous PRN, Starting on Sun06/03/19 at 0740, Anesthesia Intra-op New Bag 06/03/2019 7:40 AM CDT documented in this encounter Orders Procedures Count Last Ordered Date First Orde red Date Airway 1 06/03/2019 Arterial Line 1 06/03/2019 Peripheral IV Catheter 1 06/03/2019 documented in this encounter Care Teams Special Needs Librarian Relationship Specialty Start Date End Date Robbie Haywood MD [address] [place] [address] PCP - General 12/29/18 12/13/20 Zan Lee MD [address] [place] [address] Surgeon Neurosurgery 01/02/19 documented as of this encounter
--- OUTSIDE RECORDS SUMMARY | 2024-08-30 18:58 | XMS_ITS | Encounter Summary ---
Author Organization [facility] Address [address] [place] [address] Care Team Providers Care [employer] Name Role Phone Robbie Haywood MD Primary Care Provider [phone] Zan Lee MD Unavailable [phone] Encounter Details Date Type Department Care Team (Late st Contact Info) Description 11/26/2020 Telephone [facility] Cardiology [address] [place] [address] Anderson Trejo MD [address] [facility] [address] [place] [id number] Social History Tobacco Use Types Packs/Day Years [...] on file 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 She is aware of critical INR and going to ER. * Telephone Encounter - Bree Walsh RN - 11/26/2020 10:24 AM CDT Attempted to call pt several times. No answer. * Telephone Encounter - Bree Walsh RN - 11/26/2020 10:16 AM CDT INR 8.1. LM on VM for pt that her INR is dangerously high and she should go to the ER especially since she has been having problems with bruising and eye ( see prev tele note) Requested pt return call to confirm receipt. * Telephone Encounter - Bree Walsh RN - 11/26/2020 9:44 AM CDT Called lab to verify results and request refax since we have not received the results yet. * Telephone Encounter - Vielka Munoz - 11/26/2020 9:26 AM CDT Best lab called to report critical PT 66.9 INR 8.1. documented in this encounter Plan of Treatment Not on file documented as of this encounter Visit Diagnoses Not on filedocumented in this encounter Care Teams [employer] Relationship Specialty Start Date End Date Robbie Haywood MD [address] [place] [address] PCP - General 12/29/18 12/13/20 Zan Lee MD [address] [place] [address] Surgeon Neurosurgery 01/02/19 documented as of this encounter
--- OUTSIDE RECORDS SUMMARY | 2024-08-30 18:58 | XMS_ITS | Encounter Summary ---
Author Organization [facility] Address [address] [place] [address] Care Team Providers Care Food Service Clerk Name Role Phone Robbie Haywood MD Primary Care Provider [phone] Zan Lee MD Unavailable [phone] Reason for Referral * (Routine) - Closed Specialty Diagnoses / Procedures Referred By Contac t Referred To Contact Diagnoses Atrial fibrillation, unspecified type (HCC) Procedures ECG 12 lead Lovely Nuñez NP [address] [place] [address] Phone: tel: fax: [facility] Referral ID Status Reason Start Date Expiration Date Visits Re quested Visits Authorized [id number] Closed 10/28/2020 11/27/2021 1 1 T MANAGER Reason for Visit * Reason Comments Follow-up A-FIB Encounter Details Date Type Department Care Team (Late st Contact Info) Description 10/28/2020 3:30 PM SHIFT MANAGER Office Visit [facility] Cardiology [address] [place] [phone] Lovely Nuñez NP [address] [place] [id number] Thrombus of left atrial appendage (Primary Dx); Atrial fibrillation, unspecified type (CMS/HCC); custodial current use of anticoagulant therapy; Cardiomyopathy, unspecified type (CMS/HCC); At risk for sleep apnea Social History Tobacco Use Types Packs/Day Years [...] on file Legal 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 Female 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 Gender Identity Not on file Sexual Orientation Not on file documented as of this encounter Last Filed Vital Signs Vital Sign Reading Time Taken Comments Blood Pressure 106/82 10/28/2020 4:00 PM SHIFT MANAGER Pulse 76 10/28/2020 4:00 PM SHIFT MANAGER Temperature - - Respiratory Rate - - Oxygen Saturation 94% 10/28/2020 4:00 PM SHIFT MANAGER Inhaled Oxygen Concentration - - Weight 95.3 kg (210 lb) 10/28/2020 4:00 PM SHIFT MANAGER Height 165.1 cm (5' 5 ) 10/28/2020 4:00 PM SHIFT MANAGER Body Mass Index 34.95 10/28/2020 4:00 PM SHIFT MANAGER documented in this encounter Patient Instructions * Patient Instructions* Lovely Nuñez NP - 10/28/2020 3:30 PM SHIFT MANAGER Increase metoprolol to 150 mg daily There are changes that could mean you are having congestive heart failure. Usually someone experiences 2 or more of the following changes: 1. Shortness of breath (usually occurs with activity, with laying flat, and/or wakes you from sleep) 2. Swelling (usually in feet, ankles, legs, abdomen, or overall rapid weight gain) 3. Persistent coughing or wheezing (sometimes with white or pink mucus) 4. Feeling more tired or fatigued with routine activities 5. Poor appetite, feeling full or bloated, or nauseated Weigh yourself every morning after you urinate. Record your weights. Call us with weight gain of 3 or more pounds in 1 day, and/or 5 or more pounds in 1 week. T MANAGER documented in this encounter Progress Notes * Lovely Nuñez NP - 10/28/2020 3:30 PM CST Images from the original note were not included. [facility] Cardiology [address] [place] [address] Date of Visit: 10/28/2020 Patient ID: Tressa Myers 1955 Chief Complaint: Tressa Myers is a 65 y.o. female who comes to the office for follow-up appointment after she hada repeat RANDALL which still showed presence of thrombus. History of Present Illness: Tressa Myers is a 65 y.o. female with a past medical history of coronary artery disease s/p CABGin 2013, with postoperative AFib, history of TIA with subsequent bilateral carotid artery intervention (left carotid stent December 2018 and right CEA May 2019 Dr Lee), HTN, HLD, DM, remote tobacco use, marijuana use, high risk for AMOR. She was previously followed by station baggage agent Dr. Nunn but had not seen him in about 2 years. She presented to [facility] on 09/07/2020 with complaint of [...] a smallASD, moderate to severe TR and zjwv-zn-ddlwuxhw MR. There was also large intramural plaque [...] and she ask for the information for [facility]. She feels quite [...] evidence ASD, moderate to severe TR and ozvz-uz-uxwsydze MR. Dr. Trejo recommended switching from Eliquis to warfarin. Patient took her 1st dose of warfarin a week ago and went to the lab today for her 1st INR. Today she has no specific complaints or concerns. Twelve lead ECG performed in the office today was reviewed by me personally and shows atrial fibrillation with variable ventricular response, rate 94 beats per minute Records that I personally reviewed on the day of this visit include: (the interpretation is outlined in the HPI above) 10/19/[address] Trejo I have also reviewed: allergies, current medications, past family history, past medical history, past social history, past surgical history and problem list Review of Systems Constitution: Negative for diaphoresis, fever, malaise/fatigue, weight gain [...] patient is not nervous/anxious. Vital Signs: BP 106/82 (BP Location: Left arm, Patient Position: Sitting) Pulse 76 Ht 165.1 cm (5' 5 ) Wt 95.3 kg (210 lb) SpO2 94% BMI 34.95 kg/m?? Physical Exam Constitutional: She is oriented to person, place, and time. She appears well- developed. No distress. Obese HENT: Head: Normocephalic and atraumatic. Nose: Nose normal. Wearing a mask Eyes: Pupils are equal, round, and reactive to light. Conjunctivae and EOM are normal. No scleral icterus. Neck: No JVD present. No tracheal deviation present. Cardiovascular: Normal rate and normal heart sounds. An irregular rhythm present. No murmur heard. Apical heart rate 88 bpm Pulmonary/Chest: Effort normal. No respiratory distress. She has wheezes in the right upper field and the left upper field. Abdominal: Soft. Bowel sounds are normal. There is no abdominal tenderness. Musculoskeletal: General: No edema. Normal range of motion. Cervical back: Normal range of motion. Neurological: She is alert and oriented to person, place, and time. Skin: Skin is warm and dry. Scratch wagner on both forearms and lower back Psychiatric: She has a normal mood and affect. Allergies Allergen Reactions ??? Cefazolin Rash and Wheezing ??? Lisinopril Cough Current Outpatient Medications: ??? ascorbic acid (ascorbic acid with dee hips) 500 mg tablet,chewable, Take 500 mg by mouth nightly, Disp: , Rfl: ??? aspirin 81 mg enteric coated tablet, Take 81 mg by mouth nightly , Disp: , Rfl: ??? empagliflozin (JARDIANCE) 10 mg tablet, 20 mg daily , Disp: , Rfl: ??? furosemide (LASIX) 40 mg tablet, Take 20 mg by mouth 2 (two) times a day , Disp: , Rfl: ??? levothyroxine (SYNTHROID, LEVOTHROID) 75 mcg tablet, Take 75 mcg by mouth pipe connector before breakfast , Disp: , Rfl: 3 ??? losartan (COZAAR) 50 mg tablet, Take 50 mg by mouth nightly, Disp: , Rfl: ??? metFORMIN (GLUCOPHAGE) 1,000 mg tablet, Take 1,000 mg by mouth 2 (two) times a day with meals ,Disp: , Rfl: 3 ??? metoprolol XL (TOPROL-XL) 100 mg 24 hr tablet, Take 1 tablet every day by oral route., Disp: , Rfl: ??? PARoxetine (PAXIL) 20 mg tablet, Take 40 mg by mouth daily , Disp: , Rfl: ??? simvastatin (ZOCOR) 40 mg tablet, Take 40 mg by mouth nightly , Disp: , Rfl: ??? SITagliptin (JANUVIA) 100 mg tablet, Take 1 tablet by mouth nightly , Disp: , Rfl: ??? warfarin (COUMADIN) 2 mg tablet, Take 2 tablets (4 mg total) by mouth daily Take 4mg daily or as directed by physician., Disp: 60 tablet, Rfl: 11 Lab Results Component Value Date POTASSIUM 4.0 06/04/2019 BUNSER 10 06/04/2019 CREATININE 0.39 (L) 06/04/2019 CHOL 151 12/30/2018 TRIG 135 12/30/2018 LDL 15 02/23/2014 LDLCALC 85 12/30/2018 HDL 39 (L) 12/30/2018 Assessment: Diagnoses and all orders for this visit: Thrombus of left atrial appendage (Primary) Atrial fibrillation, unspecified type (CMS/HCC) custodial current use of anticoagulant therapy Cardiomyopathy, unspecified type (CMS/HCC) At risk for sleep apnea Plan/Recommendations: A repeat RANDALL showed persistence of thrombus in the left atrial appendage extending into the left atrium. She was taken off Eliquis and started on warfarin it week ago, goal INR 2-3. Our nursing staffdid teaching with the patient in the office today regarding important things to know while being on warfarin. Once she becomes therapeutic on warfarin, we recommend repeating the RANDALL in 3-4 more weeks. The patient does not yet want to schedule that today. During hospitalization she was treated for CHF and found to have a cardiomyopathy. Etiology and chronicity are unclear at this point. Currently she is euvolemic. Her weight since discharge has been stable. Continue furosemide 40 mg daily. Continue to monitor for signs/symptoms of CHF exacerbation. These were reviewed with the patient again today. To further optimize her medical therapy and to obtain better rate control with her AFib, I will up titrate her metoprolol to 150 mg daily. Continue losartan at 50 mg daily. Signs/symptoms of hypotension occur, call the office. Because of the cardiomyopathy, ischemic evaluation is indicated. Because of her AFib, a Lexiscan nuclear stress test would be the most accurate way to assess for ischemia. We recommend she be on therapeutic warfarin for about 2 weeks before stress test. Again, she has not yet ready to schedule thistesting today, is not sure how she feels about doing a stress test. She had positive apnea link in the hospital. She has daytime somnolence. She is still trying to getthis arranged through her PCP and the Sleep Center. I explained that treating her sleep apnea can assist in the treatment of her AFib and cardiomyopathy. Keep the previously scheduled follow-up visit with Dr. Trejo next month, but call us sooner if she decides she wants to schedule the stress test and/or repeat RANDALL. JONI Salmon- Nurse Practitioner with [facility] Cardiology This note is dictated and transcribed using Itug[employer] Direct Software. Marble Supervisor variancesmay occur. Despite proofreading, typographical errors may occur. Cosigned by Anderson Trejo MD at 10/28/2020 5:27 PM SHIFT MANAGER T MANAGER T MANAGER documented in this encounter Plan of Treatment Not on file documented as of this encounter Results * ECG 12 lead (10/28/2020) us Lovely Nuñez NP ECG ORDERABLES Final Res ult documented in this encounter Visit Diagnoses Diagnosis Thrombus of left atrial appendage- Primary Atrial fibrillation, unspecified type (HCC) multimedia project manager current use of anticoagulant therapy Cardiomyopathy, unspecified type (HCC) At risk for sleep apnea documented in this encounter Discontinued Medications Medication Sig Discontinue Reason Start Date End Da te apixaban (Eliquis) 5 mg tablet 5 mg every 12 (twelve) hours Alternate therapy 10/28/2020 documented as of this encounter Historical Medications * This list may reflect changes made after this encounter. apixaban (Eliquis) 5 mg tablet 5 mg every 12 (twelve) hours 10/28/2020 added in this encounter Care Teams Food Service Clerk Relationship Specialty Start Date End Date Robbie Haywood MD [address] [place] [address] PCP - General 12/29/18 12/13/20 Zan Lee MD [address] [place] [address] Surgeon Neurosurgery 01/02/19 documented as of this encounter
--- OUTSIDE RECORDS SUMMARY | 2024-08-30 18:58 | XMS_ITS | Encounter Summary ---
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 Gender Identity Not on file Sexual Orientation Not on file documented as of this encounter Plan of Treatment Not on file documented as of this encounter Procedures Procedure Name Priority Date/Time Associated Diagnosis Comments PROTIME-INR Routine 10/28/2020 documented in this encounter Results * (ABNORMAL) Protime-INR (10/28/2020) INR 2.80(A) 0.9 - 1.1 EXTERNAL LAB Blood specimen (specimen) us Historical Provider LAB BLOOD ORDERABLES Jennifer doran Result EXTERNAL LAB documented in this encounter Visit Diagnoses Not on filedocumented in this encounter Care Teams Nuclear Criticality Safety Engineer Relationship Specialty Start Date End Date Robbie Haywood MD [address] [place] [address] PCP - General 12/29/18 12/13/20 Zan Lee MD [address] [place] [address] Surgeon Neurosurgery 01/02/19 documented as of this encounter
--- OUTSIDE RECORDS SUMMARY | 2024-08-30 18:58 | XMS_ITS | Encounter Summary ---
Author Organization [facility] Address [address] [place] [address] Care Team Providers Care Wildlife Biostation Research Ecologist Name Role Phone Robbie Haywood MD Primary Care Provider Zan Lee MD Unavailable [phone] Jovita Bermudez MD Primary Care Provider [phone] Encounter Details Date Type Department Care Team (Late st Contact Info) Description 12/02/2020 Telephone [facility] Cardiology [address] [place] [address] Anderson Trejo MD [address] [address] Social History Tobacco Use Types Packs/Day [...] on file 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 * Telephone Encounter - MayorgaMonstera - 12/02/2020 8:12 AM CDT Missed call from Sandy Contact: documented in this encounter Plan of Treatment Not on file documented as of this encounter Visit Diagnoses Not on filedocumented in this encounter Care Teams Wildlife Biostation Research Ecologist Relationship Specialty Start Date End Date Robbie Haywood MD [address] [place] [address] PCP - General 12/29/18 12/13/20 Jovita Bermudez MD [address] [place] [address] PCP - General Family Medicine 12/14/20 Zan Lee MD [address] [place] [address] Surgeon Neurosurgery 01/02/19 documented as of this encounter
--- OUTSIDE RECORDS SUMMARY | 2024-08-30 18:58 | XMS_ITS | Encounter Summary ---
Author Organization [facility] Address [address] [place] [address] Care Team Providers Care Self Sealing Fuel Tank Repairer Name Role Phone Robbie Haywood MD Primary Care Provider [phone] Zan Lee MD Unavailable [phone] Encounter Details Date Type Department Care Team (Late st Contact Info) Description 10/29/2020 Orders Only [facility] Cardiology [address] [place] [address] Lovely Nuñez NP [address] [place] [address] Atrial fibrillation, unspecified type (CMS/HCC) Social History Tobacco Use Types Packs/Day Years [...] file 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 Gender Identity Not on file Sexual Orientation Not on file documented as of this encounter Plan of Treatment Not on file documented as of this encounter Procedures Procedure Name Priority Date/Time Associated Diagnosis Comments ECG 12-LEAD Routine 10/28/2020 Atrial fibrillation, unspecified type (CMS/HCC) documented in this encounter Results * ECG 12 lead (10/28/2020) Lovely Nuñez HOSE TESTER ECG ORDERABLES Final Res ult documented in this encounter Visit Diagnoses Diagnosis Atrial fibrillation, unspecified type (HCC) documented in this encounter Care Teams Self Sealing Fuel Tank Repairer Relationship Specialty Start Date End Date Robbie Haywood MD [address] [place] [address] PCP - General 12/29/18 12/13/20 Zan Lee MD [address] [place] [address] Surgeon Neurosurgery 01/02/19 documented as of this encounter
--- OUTSIDE RECORDS SUMMARY | 2024-08-30 18:58 | XMS_ITS | Encounter Summary ---
Author Organization [facility] Address [address] [place] [address] Care Team Providers Care Training Designer Name Role Phone Robbie Haywood MD Primary Care Provider [phone] Zan Lee MD Unavailable [phone] Encounter Details Date Type Department Care Team (Late st Contact Info) Description 09/08/2020 Orders Only [facility] Cardiology [address] [place] [address] Anderson Trejo MD [address] [facility] [address] [place] [id number] Social History Tobacco Use Types Packs/Day Years [...] on file 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 Gender Identity Not on file Sexual Orientation Not on file documented as of this encounter Plan of Treatment Not on file documented as of this encounter Procedures Procedure Name Priority Date/Time Associated Diagnosis Comments CARDIOLOGY DOCUMENT SCAN Routine 09/08/2020 documented in this encounter Results * SCAN - CARDIOLOGY (09/08/2020) Anatomical Region Laterality Modality Other us Anderson Trejo MD CV CARDIAC SERVICES PROC EDURES Final Result documented in this encounter Visit Diagnoses Not on filedocumented in this encounter Care Teams Training Designer Relationship Specialty Start Date End Date Robbie Haywood MD [address] [place] [address] PCP - General 12/29/18 12/13/20 Zan Lee MD [address] [place] [address] Surgeon Neurosurgery 01/02/19 documented as of this encounter
--- OUTSIDE RECORDS SUMMARY | 2024-08-30 18:58 | XMS_ITS | Encounter Summary ---
Author Organization [facility] Address [address] [place] [address] Care Team Providers Care [place] Name Role Phone Robbie Haywood MD Primary Care Provider [phone] Zan Lee MD Unavailable [phone] Encounter Details Date Type Department Care Team (Late st Contact Info) Description 09/07/2020 Orders Only [facility] Cardiology [address] [place] [address] Anderson Trejo MD [address] [facility] [address] [place] [id number] Social History Tobacco Use Types Packs/Day Years [...] on file 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 Gender Identity Not on file Sexual Orientation Not on file documented as of this encounter Plan of Treatment Not on file documented as of this encounter Procedures Procedure Name Priority Date/Time Associated Diagnosis Comments CARDIOLOGY DOCUMENT SCAN Routine 09/07/2020 documented in this encounter Results * SCAN - CARDIOLOGY (09/07/2020) Anatomical Region Laterality Modality Other us Anderson Trejo MD CV CARDIAC SERVICES PROC EDURES Final Result documented in this encounter Visit Diagnoses Not on filedocumented in this encounter Care Teams [place] Relationship Specialty Start Date End Date Robbie Haywood MD [address] [place] [address] PCP - General 12/29/18 12/13/20 Zan Lee MD [address] [place] [address] Surgeon Neurosurgery 01/02/19 documented as of this encounter
--- OUTSIDE RECORDS SUMMARY | 2024-08-30 18:58 | XMS_ITS | Encounter Summary ---
Author Organization [facility] Healthcare Address [address] [place] [address] Care Team Providers Care Lookback Coordinator Name Role Phone Robbie Haywood MD Primary Care Provider [phone] Zan Lee MD Unavailable [phone] Encounter Details Date Type Department Care Team (Latest Contact Info) Description 12/31/2018 1:59 AM CDT - 01/02/2019 11:05 AM CDT Hospital Encounter [facility] Cardiac Intensive Care [address] [place] [address] [place] [address] [place] [address] [place] [address] [place] [address] Discharge Disposition: Discharge to home or self care Social History Tobacco Use Types Packs/Day Years Used Date Smoking Tobacco: Light Smoker Cigarettes Smokeless Tobacco: Never Comments:history of 2ppd for 30yrs prior to cutting back. Alcohol Use Standard Drinks/Week Comments Yes 0 (1 standard drink = 0.6 oz pur e alcohol) occasionally. 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 Gender Identity Not on file Sexual Orientation Not on file documented as of this encounter Last Filed Vital Signs Vital Sign Reading Time Taken Comments Blood Pressure 116/56 01/02/2019 10:25 AM CDT Pulse 67 01/02/2019 10:25 AM CDT Temperature 37 ??C (98.6 ??F) 01/02/2019 7:45 AM CDT Respiratory Rate 18 01/02/2019 10:2 5 AM CDT Oxygen Saturation 95% 01/01/2019 4:20 PM CDT Inhaled Oxygen Concentration - - Weight 103.5 kg (228 lb 2.8 oz) 01/02/2019 4:00 AM CDT Height 165.1 cm (5' 5 ) 12/31/2018 1:50 AM CDT Body Mass Index 37.97 12/31/2018 1:50 AM CDT documented in this encounter Discharge Summaries * Naga Enriquez MD - 01/02/2019 8:06 AM CDT INPATIENT DISCHARGE SUMMARY BRIEF OVERVIEW Admitting Provider: Melvin Caro MD Discharge Provider: Naga Enriquez MD Primary Care Physician at Discharge: Robbie Haywood MD [phone] Admission Date: 12/31/2018 Discharge Date: 01/02/2019 PRIMARY DISCHARGE DIAGNOSIS CVA (cerebral vascular accident) (CMS/HCC) SECONDARY DISCHARGE DIAGNOSIS CVA (cerebral vascular accident) ([facility]) Carotid atherosclerosis Abnormal CXR Essential hypertension Type 2 diabetes mellitus with circulatory disorder, without long-term current use of insulin (CMS/[facility]) Acute cystitis without hematuria Paroxysmal atrial flutter ([facility]/HCC) Coronary artery disease involving nondalton coronary artery of nondalton heart without angina pectoris History of coronary artery stent placement Hx of CABG Tobacco abuse * No resolved hospital problems. * DETAILS OF HOSPITAL STAY CONSULTING PHYSICIANS: Treatment Team: Consulting Physician: Trisha Jesus MD; Consulting Physician: Zan Lee MD PRESENTING PROBLEM/HISTORY OF PRESENT ILLNESS/HOSPITAL COURSE Patient presented to [place] on 12/29/18 with RUE and RLE weakness that started at 1:30pm and lasted about 15-20 minutes and then resolved. No numbness, slurred speech, or double vision. No palpitations.No chest pain, pressure, or discomfort. Imaging studies there show right ICA stenosis and stenoses of the right and left carotid bulbs, theright common carotid artery, and right extraforaminal carotid arteries. CTA showed right and left bulb stenosis. Echo showed JUAN primarily. No acute CVA by MRI. She is here to see Dr. Lee of Neurosurgery regarding her carotid arterial disease. 12/31/2018: This is a non billable encounter patient was admitted today H and P done today. In bed awake alert has no new complaints. Swallowing well. Awaiting Neurosurgery eval. 01/01/2019: Sitting up on edge of bed family at bedside. Seen by Neurosurgery yesterday. Going for left internal carotid stent today by Neurosurgery. Overnight uneventful no new complaints today. CVA: MRI negative patient already seen by Neurology at [place]. Full workup of was already being done. Continue PT OT speech as indicated Internal Carotid atherosclerotic stenosis: continue ASA and Plavix. Appreciate Dr. Lee neurosurgery consult. left internal carotid stent done successfully 01/01/19, cleared for dc by NeuroSx Pneumonia ruled out HTN: Continue Lopressor Cozaar monitor blood pressure Diabetes mellitus continue sliding scale insulin monitor fingerstick blood sugar E coli UTI, continue p.o. Cipro Paroxysmal aflutter: now in NSR continue metoprolol monitor blood pressure CAD with h/o stents and CABG: continue Plavix aspirin Lipitor Tobacco abuse: encouraged cessation. Per Neurosurgery: Ok to d/c home Make sure she stays on asa and plavix daily pls f/u with me in office within a month Instructed as to warning s/s of TIA/stroke TEST RESULTS PENDING AT DISCHARGE Order Current Status aPTT Collected (01/01/19 1243) OPERATIVE PROCEDURES PERFORMED Procedure(s): ANGIOGRAM carotid and left carotid stent OTHER PROCEDURES PERTINENT TEST RESULTS RADIOLOGY: US Carotids Duplex Bilateral IMPRESSION: 1. SUBOPTIMAL EXAMINATION DUE TO ANATOMIC FACTORS. [...] CAROTID ARTERY. 5. ANTEGRADE VERTEBRAL FLOW BILATERALLY. MRI Brain WO Contrast IMPRESSION: 1. MILD AGE-RELATED CORTICAL VOLUME LOSS AND WHITE MATTER CHANGE. 2. SMALL OLD RIGHT OCCIPITAL INFARCTION. 3. NO EVIDENCE OF ACUTE INTRACRANIAL EVENT. CTA Neck W WO Contrast IMPRESSION: 1. 60% right carotid bulb diameter stenosis by NASCET criteria. 2. 75% left carotid bulb proximal internal carotid artery diameter stenosis by NASCET criteria. 3. Bilaterally patent vertebral arteries, a little larger left than right. XR CHEST PA LATERAL 2 VIEWS 12/31/2018 8:40 AM FINDINGS: There are small scattered parenchymal and perihilar granulomatous calcifications. The cardiac and mediastinal outlines are unremarkable, except for poststernotomy change. There are no pleural effusions or infiltrates. No significant abnormalities are noted in the spine or remainder of the bony thorax. IMPRESSION: NO ACUTE PULMONARY CHANGE. LABS AT DISCHARGE: Recent Results (from the past 24 hour(s)) POCT glucose Collection Time: 01/01/19 12:02 PM Result Value Ref Range Glucose, POC, bld 121 70 - 199 mg/dL POCT glucose Collection Time: 01/01/19 12:17 PM Result Value Ref Range Glucose, POC, bld 130 70 - 199 mg/dL POCT glucose Collection Time: 01/01/19 5:28 PM Result Value Ref Range Glucose, POC, bld 97 70 - 199 mg/dL POCT glucose Collection Time: 01/01/19 11:30 PM Result Value Ref Range Glucose, POC, bld 103 70 - 199 mg/dL Basic metabolic panel Collection Time: 01/02/19 4:17 AM Result Value Ref Range Sodium 140 135 - 145 mmol/L Potassium, pl 4.3 3.3 - 4.9 mmol/L Chloride 104 97 - 110 mmol/L CO2 23 22 - 32 mmol/L Anion Gap 13 2 - 15 mmol/L BUN 17 8 - 25 mg/dL Creatinine 0.65 0.60 - 1.10 mg/dL Glucose 132 70 - 199 mg/dL Calcium 8.7 8.5 - 10.3 mg/dL Magnesium Collection Time: 01/02/19 4:17 AM Result Value Ref Range Magnesium 1.8 1.4 - 2.5 mg/dL Phosphorus Collection Time: 01/02/19 4:17 AM Result Value Ref Range Phosphorus, pl 4.5 2.3 - 4.5 mg/dL eGFR Collection Time: 01/02/19 4:17 AM Result Value Ref Range GFR 94 mL/min/1.73 m2 CBC with auto differential Collection Time: 01/02/19 4:34 AM Result Value Ref Range WBC 6.4 3.8 - 9.9 K/cumm Hgb 13.5 11.9 - 15.5 g/dL Hct 41.8 35.6 - 45.5 % Plt 228 150 - 400 K/cumm MPV 10.1 9.1 - 12.3 fL RBC 4.31 3.90 - 5.20 M/cumm MCV 97.0 (H) 81.3 - 96.4 fL MCH 31.3 27.1 - 33.3 pg MCHC 32.3 32.3 - 35.7 g/dL RDW CV 12.1 11.1 - 14.9 % RDW SD 43.8 35.7 - 48.1 fL NRBC Abs 0.00 0.00 - 0.01 K/cumm Differential, auto Collection Time: 01/02/19 4:34 AM Result Value Ref Range Neutrophil absolute 3.8 1.7 - 6.5 K/cumm Immature granulocyte absolute 0.0 0.0 - 0.1 K/cumm Lymphocytes absolute 1.8 0.8 - 3.3 K/cumm Monocyte absolute 0.6 0.2 - 0.8 K/cumm Eosinophils absolute 0.2 0.0 - 0.5 K/cumm Basophils, abs 0.0 0.0 - 0.1 K/cumm Neutrophils 58.7 % Immature granulocytes 0.3 % Lymphocytes 28.9 % Monocytes 9.0 % Eosinophils 2.3 % Basophils 0.8 % POCT glucose Collection Time: 01/02/19 6:07 AM Result Value Ref Range Glucose, POC, bld 125 70 - 199 mg/dL DISCHARGE DETAILS PHYSICAL EXAM Discharge Condition: stable Pulse: 76 Resp: (!) 37 BP: 105/61 Temp: 37 ??C (98.6 ??F) Weight: 103.5 kg (228 lb 2.8 oz) BP 105/61 Pulse 76 Temp 37 ??C (98.6 ??F) (Oral) Resp (!) 37 Ht 165.1 cm (5' 5 ) Wt 103.5kg (228 lb 2.8 oz) SpO2 95% BMI 37.97 kg/m?? Pertinent Exam Findings at Discharge: General appearance: cooperative and no distress Head: Normocephalic, without obvious abnormality, atraumatic Lungs: clear to auscultation bilaterally Heart: S1, S2 normal Abdomen: soft, non-tender; bowel sounds normal; no masses, no organomegaly Neurologic: Alert and oriented x4, non-focal DISCHARGE DISPOSITION Discharge to a critical access hospital Full Code DISCHARGE INSTRUCTIONS Activity Instructions Discharge activity: Resume normal activity Diet Instructions Adult Discharge Diet Diet Type: Return to previous diet Recommend consistent carbohydrate, heart healthy diet upon discharge. Aim for 45-60g of carbohydrate per meal. Limit sodium intake to 2000mg per day. Avoid concentrated sweets such as soda, juices, sweet tea, and candy. For nutrition related questions, please call dietitian's office at [phone]. Other Instructions Call provider for: Temperature -Temperature greater than 101 degrees F Call provider for: difficulty breathing or chest pain Call provider for: hives Call provider for: persistent dizziness or light-headedness Call provider for: persistent nausea or vomiting Call provider for: severe uncontrolled pain Call provider for: headache, visual disturbances, weakness and speech changes DISCHARGE MEDICATIONS Your medication list CHANGE how you take these medications metoprolol 25 mg tablet Commonly known as: LOPRESSOR Take 0.5 tablets (12.5 mg total) by mouth 2 (two) times a day What changed: See the new instructions. CONTINUE taking these medications aspirin 81 mg enteric coated tablet clopidogrel 75 mg tablet Commonly known as: PLAVIX levothyroxine 75 mcg tablet Commonly known as: SYNTHROID, LEVOTHROID losartan 50 mg tablet Commonly known as: COZAAR metFORMIN 1,000 mg tablet Commonly known as: GLUCOPHAGE PARoxetine 20 mg tablet Commonly known as: PAXIL simvastatin 40 mg tablet Commonly known as: ZOCOR Your medication list CHANGE how you take these medications Instructions Last Dose Given Next Dose Due metoprolol 25 mg tablet Commonly known as: LOPRESSOR What changed: See the new instructions. Take 0.5 tablets (12.5 mg total) by mouth 2 (two) times a day CONTINUE taking these medications Instructions Last Dose Given Next Dose Due aspirin 81 mg enteric coated tablet clopidogrel 75 mg tablet Commonly known as: PLAVIX levothyroxine 75 mcg tablet Commonly known as: SYNTHROID, LEVOTHROID losartan 50 mg tablet Commonly known as: COZAAR metFORMIN 1,000 mg tablet Commonly known as: GLUCOPHAGE PARoxetine 20 mg tablet Commonly known as: PAXIL simvastatin 40 mg tablet Commonly known as: ZOCOR Where to Get Your Medications These medications were sent to [facility] [address] [place] [id number] ?? metoprolol 25 mg tablet OUTPATIENT FOLLOW-UP No future appointments. primary care provider Within 7-10 days Robbie Haywood MD [address] [facility] [address] [place] [address] [facility] [address] Follow up within a month Voice recognition [employer] Direct Software was used dictate and transcribe this document. Court Orderly variances may occur. Despite proofreading, typographical errors may occur. Naga Enriquez MD Time Spent on Discharge: 45 min documented in this encounter Discharge Instructions * Discharge Instructions* Shabnam Cano RN - 01/01/2019 3:59 PM CDT Activity: -No heavy lifting (over 10 pounds) for 1 week or as directed by your machine stuffer automatic. -No driving for 2 days after sheath removal. -No strenuous activity with affected leg for one week (i.e. Jogging, swimming, running, raking, shoveling snow or mowing lawn). -No exercising or excessive use of stairs for 1 week. Puncture Site: -Remove dressing next day. -Wash with soap and water daily in shower. (to prevent infection, a shower is preferred to a tub bath for at least a week). Do not apply any creams or lotions to puncture site. What to watch for: -Increased bruising -Swelling -Temperature greater than 100 degrees -Redness, drainage, or foul odor at puncture site -Pain that will not go away You may develop scar tissue at the puncture site. This normal and will feel like a small lump underthe skin. You may feel this bump for some time. If any of the above occur or you have any questions contact your Investor Relations Associate and follow up with your Primary Care Physician as instructed. * Discharge Instr - Diet* Kaylee Simmons - 12/31/2018 12:02 PM CDT Recommend consistent carbohydrate, heart healthy diet upon discharge. Aim for 45-60g of carbohydrate per meal. Limit sodium intake to 2000mg per day. Avoid concentrated sweets such as soda, juices, sweet tea, and candy. For nutrition related questions, please call dietitian's office at [phone]. documented in this encounter Medications at Time of Discharge aspirin 81 mg enteric coated tablet Take 1 tablet (81 mg total) by mouth nightly levothyroxine (SYNTHROID, LEVOTHROID) 75 mcg tablet Take 1 tablet (75 mcg total) by mouth lock installer before breakfast 3 12/05/2018 metFORMIN (GLUCOPHAGE) 1,000 mg tablet Take 1 tablet (1,000 mg total) by mouth 2 (two) times a day with meals 3 12/05/2018 ciprofloxacin (CIPRO) 500 mg tabletIndication s:Urinary Tract/Genitourin chrissie Infection Take 1 tablet (500 mg total) by mouth 2 (two) times a day for 6 doses 6 tablet 01/02/2019 9 clopidogrel (PLAVIX) 75 mg tablet clopidogrel 75 mg tablet cardio 9 losartan (COZAAR) 50 mg tablet losartan 50 mg tablet TAKE 1 TABLET BY MOUTH ONCE DAILY 9 metoprolol (LOPRESSOR) 25 mg tablet Take 0.5 tablets (12.5 mg total) by mouth 2 (two) times a day 30 tablet 01/02/2019 9 PARoxetine (PAXIL) 20 mg tablet Take 40 mg by mouth daily 1 simvastatin (ZOCOR) 40 mg tablet Take 40 mg by mouth nightly 2 documented as of this encounter Ordered Prescriptions Prescription Sig Dispense Quantity Refills Last Filled Start Date End Date ciprofloxacin (CIPRO) 500 mg tabletIndications: Urinary Tract/Genitourinar y Infection Take 1 tablet (500 mg total) by mouth 2 (two) times a day for 6 doses 6 tablet 01/02/2019 9 metoprolol (LOPRESSOR) 25 mg tablet Take 0.5 tablets (12.5 mg total) by mouth 2 (two) times a day 30 tablet 01/02/2019 9 documented in this encounter Discharge Disposition Disposition Code Departure Means Destination Discharge to home or self detention documented in this encounter Progress Notes * Catherine Jasmine NP - 01/02/2019 7:52 AM CDT Critical Care Medicine Daily Progress Team: Community AM Subjective Patient is a 63 y.o. y/o female admitted on 12/31/2018 1:59 AM with the following indication(s) for ICU care TIA with L Internal Carotid Stenosis, s/p Stent Placement Interval History: - Received stent x 1 to LICA - BP is adequate, remains off of drips -most likely home today HPI Ms Myers presented to the ED in [place] on 12/29 with transient numbness and inability to move her R arm and leg. She had transient blurred vision as well the day before. She was transferred to [facility] andDr. Lee was consulted for LICA stenosis. MRI showed a small old R occipital infarct and no acute event. CT scan showed 60% blockage and L 75% blockage of internal carotid artery. CT of head was negative. Significant history for CABG, HTN, previous CVA, paroxysmal Aflutter, smoker, cardiac stents, DM. Hospital Course 12/29 Present to OSH with TIA 01/01 Arrived to ICU s/p L ICA Stent 01/02 possibly home today Scheduled Medications: aspirin 81 mg oral Daily atorvastatin 20 mg oral Daily ciprofloxacin 500 mg oral BID clopidogrel 75 mg oral Daily heparin 5,000 Units subcutaneous Q8H SARAH insulin lispro 1-2 Units subcutaneous Q6H SARAH levothyroxine 75 mcg oral Daily - 0600 losartan 50 mg oral Daily metoprolol 25 mg oral BID PARoxetine 20 mg oral Daily sodium chloride 0.9% 0.5-20 mL intra-catheter Q8H SARAH Continuous Medications: DOPamine 1-5 mcg/kg/min niCARdipine 0.5-2.5 mcg/kg/min PRN Medications: ??? acetaminophen ??? dextrose OR dextrose ??? glucagon ??? ipratropium-albuterol ??? ondansetron ODT OR ondansetron ??? sodium chloride 0.9% Objective Vitals: Most Recent: Vitals: 01/02/19 0745 BP: Pulse: 76 Resp: (!) 37 Temp: 37 ??C (98.6 ??F) SpO2: 24hr Min/Max: Temp Min: 36.6 ??C (97.8 ??F) Max: 37 ??C (98.6 ??F) Pulse Min: 52 Max: 82 BP Min: 58/50 Max: 141/66 Resp Min: 11 Max: 37 SpO2 Min: 92 % Max: 98 % LDA: Vent settings: Hemodynamic parameters for last 24 hours: I/O: Date 01/01/19699 - 01/02/1965801/02/19699 - 01/03/19658 Shift 3289-9350 4083-6655 24 Hour Total 6751-7060 7679-7931 24 Hour Total INTAKE P.O. 720 240 960 I.V.(mL/kg) 497(4.8) 150(1.4) 647(6.3) Shift Total(mL/kg) 1217(11.9) 390(3.8) 1607(15.5) OUTPUT Urine(mL/kg/hr) 300(0.2) 780(0.6) 1080(0.4) Shift Total(mL/kg) 300(2.9) 780(7.5) 1080(10.4) NET 917 -390 527 Weight (kg) 102.5 103.5 103.5 103.5 103.5 103.5 Physical Exam: General appearance:??WD/WN, alert, sitting up in the chair HEENT: Normocephalic, without obvious abnormality, atraumatic, PERRLA Neck: supple, trachea midline Lungs: clear??to auscultation bilaterally, symmetrical chest wall expansion Heart:??SR,??no murmur, click, rub or gallop Abdomen:??soft, non-tender; bowel sounds normal; no masses, ??no organomegaly : no magaña, voids Extremities:??extremities normal, warm and well-perfused Pulses:??radial, DP, PT 2+ and symmetric Skin:??Skin color, texture, turgor normal. No rashes or lesions, R groin puncture site D/I Neurologic:??A&O x 4 cooperative Lab/Radiology/Diagnostic Review: Laboratory review: Lab results in the last 24 hours: Recent Results (from the past 24 hour(s)) POCT glucose Collection Time: 01/01/19 12:02 PM Result Value Ref Range Glucose, POC, bld 121 70 - 199 mg/dL POCT glucose Collection Time: 01/01/19 12:17 PM Result Value Ref Range Glucose, POC, bld 130 70 - 199 mg/dL POCT glucose Collection Time: 01/01/19 5:28 PM Result Value Ref Range Glucose, POC, bld 97 70 - 199 mg/dL POCT glucose Collection Time: 01/01/19 11:30 PM Result Value Ref Range Glucose, POC, bld 103 70 - 199 mg/dL Basic metabolic panel Collection Time: 01/02/19 4:17 AM Result Value Ref Range Sodium 140 135 - 145 mmol/L Potassium, pl 4.3 3.3 - 4.9 mmol/L Chloride 104 97 - 110 mmol/L CO2 23 22 - 32 mmol/L Anion Gap 13 2 - 15 mmol/L BUN 17 8 - 25 mg/dL Creatinine 0.65 0.60 - 1.10 mg/dL Glucose 132 70 - 199 mg/dL Calcium 8.7 8.5 - 10.3 mg/dL Magnesium Collection Time: 01/02/19 4:17 AM Result Value Ref Range Magnesium 1.8 1.4 - 2.5 mg/dL Phosphorus Collection Time: 01/02/19 4:17 AM Result Value Ref Range Phosphorus, pl 4.5 2.3 - 4.5 mg/dL eGFR Collection Time: 01/02/19 4:17 AM Result Value Ref Range GFR 94 mL/min/1.73 m2 CBC with auto differential Collection Time: 01/02/19 4:34 AM Result Value Ref Range WBC 6.4 3.8 - 9.9 K/cumm Hgb 13.5 11.9 - 15.5 g/dL Hct 41.8 35.6 - 45.5 % Plt 228 150 - 400 K/cumm MPV 10.1 9.1 - 12.3 fL RBC 4.31 3.90 - 5.20 M/cumm MCV 97.0 (H) 81.3 - 96.4 fL MCH 31.3 27.1 - 33.3 pg MCHC 32.3 32.3 - 35.7 g/dL RDW CV 12.1 11.1 - 14.9 % RDW SD 43.8 35.7 - 48.1 fL NRBC Abs 0.00 0.00 - 0.01 K/cumm Differential, auto Collection Time: 01/02/19 4:34 AM Result Value Ref Range Neutrophil absolute 3.8 1.7 - 6.5 K/cumm Immature granulocyte absolute 0.0 0.0 - 0.1 K/cumm Lymphocytes absolute 1.8 0.8 - 3.3 K/cumm Monocyte absolute 0.6 0.2 - 0.8 K/cumm Eosinophils absolute 0.2 0.0 - 0.5 K/cumm Basophils, abs 0.0 0.0 - 0.1 K/cumm Neutrophils 58.7 % Immature granulocytes 0.3 % Lymphocytes 28.9 % Monocytes 9.0 % Eosinophils 2.3 % Basophils 0.8 % POCT glucose Collection Time: 01/02/19 6:07 AM Result Value Ref Range Glucose, POC, bld 125 70 - 199 mg/dL Laboratory review: Lab results in the last 12 hours: Recent Results (from the past 12 hour(s)) POCT glucose Collection Time: 01/01/19 11:30 PM Result Value Ref Range Glucose, POC, bld 103 70 - 199 mg/dL Basic metabolic panel Collection Time: 01/02/19 4:17 AM Result Value Ref Range Sodium 140 135 - 145 mmol/L Potassium, pl 4.3 3.3 - 4.9 mmol/L Chloride 104 97 - 110 mmol/L CO2 23 22 - 32 mmol/L Anion Gap 13 2 - 15 mmol/L BUN 17 8 - 25 mg/dL Creatinine 0.65 0.60 - 1.10 mg/dL Glucose 132 70 - 199 mg/dL Calcium 8.7 8.5 - 10.3 mg/dL Magnesium Collection Time: 01/02/19 4:17 AM Result Value Ref Range Magnesium 1.8 1.4 - 2.5 mg/dL Phosphorus Collection Time: 01/02/19 4:17 AM Result Value Ref Range Phosphorus, pl 4.5 2.3 - 4.5 mg/dL eGFR Collection Time: 01/02/19 4:17 AM Result Value Ref Range GFR 94 mL/min/1.73 m2 CBC with auto differential Collection Time: 01/02/19 4:34 AM Result Value Ref Range WBC 6.4 3.8 - 9.9 K/cumm Hgb 13.5 11.9 - 15.5 g/dL Hct 41.8 35.6 - 45.5 % Plt 228 150 - 400 K/cumm MPV 10.1 9.1 - 12.3 fL RBC 4.31 3.90 - 5.20 M/cumm MCV 97.0 (H) 81.3 - 96.4 fL MCH 31.3 27.1 - 33.3 pg MCHC 32.3 32.3 - 35.7 g/dL RDW CV 12.1 11.1 - 14.9 % RDW SD 43.8 35.7 - 48.1 fL NRBC Abs 0.00 0.00 - 0.01 K/cumm Differential, auto Collection Time: 01/02/19 4:34 AM Result Value Ref Range Neutrophil absolute 3.8 1.7 - 6.5 K/cumm Immature granulocyte absolute 0.0 0.0 - 0.1 K/cumm Lymphocytes absolute 1.8 0.8 - 3.3 K/cumm Monocyte absolute 0.6 0.2 - 0.8 K/cumm Eosinophils absolute 0.2 0.0 - 0.5 K/cumm Basophils, abs 0.0 0.0 - 0.1 K/cumm Neutrophils 58.7 % Immature granulocytes 0.3 % Lymphocytes 28.9 % Monocytes 9.0 % Eosinophils 2.3 % Basophils 0.8 % POCT glucose Collection Time: 01/02/19 6:07 AM Result Value Ref Range Glucose, POC, bld 125 70 - 199 mg/dL Xr Chest Pa Lateral 2 Views Result Date: 12/31/2018 NO ACUTE PULMONARY CHANGE. Electronically signed by: Fernando Moore M.D. Plan: Neuro: # Acute pain -tylenol PRN ?? #TIA 2/2 #LICA stenosis with stenting -12/29 CT negative -12/30 MRI showed a small old R occipital infarct and no acute event. pt has no residual from old infarct and states she has had no previous CVA event -12/30 CTA neck scan showed 60% blockage and L 75% blockage of internal carotid artery. -stent to LICA 01/01 -asa, lipitor -Dr. Lee following -neurology following -blood coordinator following -frequent neuro checks ?? CV: #CAD S/p remote stent to Circ and CABG x1 to LAD - cont plavix, asa, lipitor ?? #HTN -cont cozaar, metoprolol -BP goal >90 and <150 -add nicardipine/dopamine PRN BP needs ?? #paroxysmal a-flutter - Currently sinus awa in 0s - Cont metoprolol with hold paramaters - Asa, plavix - Not on chronic anticoagulation, will defer ?? Pulmonary: RA-titrate O2 for sats >92% No new CXR today ?? #tobacco abuse Encourage smoking cessation ?? GI: Diet: ADAT PUD PPx: not indicated Bowel regimen: NA-advance if needed ?? Endo: #hyperglycemia 2/2 DM 2 and critical illness - Holding home dose of metformin Glycemic control - LD SSI NPO HGBA1C 5.5 Serial accuchecks BS goal 120-180 Avoid hypoglycemia ?? #hypothyroidism -cont home dose of synthroid ? Renal # High Risk for ILAN due to contrast induced nephropathy - Recevied contrast loaded several times in past few days - BUN/Cr 17/0. 65 - Completed IVF following contrast - Monitor renal function, UOP, and electrolytes - Daily Labs ?? #Electrolyte abnormality -Replace PRN ?? Heme: Hgb/Hct: 13.5/41.8 Plts: 228 - No acute indication for transfusion - CBC daily ?? DVT PPX: SCD's, heparin SQ ?? ID: #E-coli UTI WBC: 10.2 > 7.2>6.4 Cont cipro x 5 days (D3) ?? Micro: 5/5 UC +E. Coli ?? ICU standards of care: Restraints: NA Physical therapy/Activity: Advance per early mobility guidelines Access: PIVs Goals of care: Full code Community AM I have spent 45 minutes in full attendance with this non-critically ill patient making frequent reassessments and decisions regarding this patient's complex medical care. This patient is a level III. Assessment and plan has been reviewed with attending, Dr. Priscilla Jasmine MSN, PHOTOGRAPHY TEACHER, STEELWORKER-BC Cosigned by Vishal Wells MD at 01/02/2019 10:23 AM CDT Associated attestation - Vishal Wells MD - 01/02/2019 10:23 AM CDT I have reviewed and confirmed the history, physical exam, laboratory and radiographic data with theadvanced practiotioner as documented in the note. I have discussed the assessment and plan with my team and as necessary with the relevant corporate learning consultant staffs, RNs RTs taking care of this patient. Vishal Wells MD, [facility] Critical [facility] Medicine * Zan Lee MD - 01/02/2019 7:31 AM CDT No complaints Intact Groin ok Ok to d/c home Make sure she stays on asa and plavix daily pls f/u with me in office within a month Instructed as to warning s/s of TIA/stroke * Levi Spicer PA - 01/01/2019 10:14 PM CDT Critical Care Medicine Daily Progress Team: [facility] Subjective Patient is a 63 y.o. y/o female admitted on 12/31/2018 1:59 AM with the following indication(s) for ICU care TIA with L Internal Carotid Stenosis, s/p Stent Placement Interval History: - Received stent x 1 to AHSAN - Held Metoprolol in setting of Sinus bradycardia - BP is adequate off of drips HPI Ms Myers presented to the ED in [place] on 12/29 with transient numbness and inability to move her R arm and leg. She had transient blurred vision as well the day before. [facility]. MRI showed a small old R occipital infarct and no acute event. CT scan showed 60% blockage and L 75% blockage of internal carotid artery. CT of head was negative. Significant history for CABG, HTN, previous CVA, paroxysmal Aflutter, smoker, cardiac stents, DM. Hospital Course 12/29 Present to OSH with TIA 01/01 Arrived to ICU s/p L ICA Stent Scheduled Medications: aspirin 81 mg oral Daily atorvastatin 20 mg oral Daily ciprofloxacin 500 mg oral BID clopidogrel 75 mg oral Daily famotidine 20 mg intravenous Daily heparin 5,000 Units subcutaneous Q8H SARAH insulin lispro 1-2 Units subcutaneous Q6H [facility] levothyroxine 75 mcg oral Daily - 0600 losartan 50 mg oral Daily metoprolol 25 mg oral BID PARoxetine 20 mg oral Daily sodium chloride 0.9% 0.5-20 mL intra-catheter Q8H [facility] Continuous Medications: DOPamine 1-5 mcg/kg/min niCARdipine 0.5-2.5 mcg/kg/min PRN Medications: ??? acetaminophen ??? dextrose OR dextrose ??? glucagon ??? ipratropium-albuterol ??? ondansetron ODT OR ondansetron ??? sodium chloride 0.9% Objective Vitals: Most Recent: Vitals: 01/01/192018 BP: Pulse: 58 Resp: Temp: SpO2: 24hr Min/Max: Temp Min: 36.6 ??C (97.8 ??F) Max: 36.9 ??C (98.4 ??F) Pulse Min: 57 Max: 93 BP Min: 58/50 Max: 158/70 Resp Min: 11 Max: 23 SpO2 Min: 91 % Max: 99 % LDA: Vent settings: Hemodynamic parameters for last 24 hours: I/O: Date 12/31/181899 - 01/01/1965801/01/19699 - 01/02/19 0659 Shift 6121-2872 24 Hour Total 2432-2137 1007-7475 24 Hour Total INTAKE P.O. 600 720 720 I.V.(mL/kg) 497(4.8) 497(4.8) Shift Total(mL/kg) 600(5.9) 1217(11.9) 1217(11.9) OUTPUT Urine(mL/kg/hr) 200 200 300(0.2) 260 560 Shift Total(mL/kg) 200(2) 200(2) 300(2.9) 260(2.5) 560(5.5) NET -200 400 917 -260 657 Weight (kg) 102.5 102.5 102.5 102.5 102.5 Physical Exam: Gen: Lying in bed, sleeping, NAD, arouses easily HEENT: NC/AT, PERRLA, EOMI Neck: No JVD Noted CV: 50s NSR, S1 and S2 heard, Distal pulses intact, Warm periphery, cap refill < 5 seconds Pulm: CTAB, on NC oxygenating well Abd: Soft, Nontender, Normoactive BS : Voiding without difficulty Ext: No edema noted Derm: Warm, Dry, intact Psych: Interacting appropriately Neuro: Alert, Oriented, Moves all extremities Lab/Radiology/Diagnostic Review: Laboratory review: Lab results in the last 24 hours: Recent Results (from the past 24 hour(s)) POCT glucose Collection Time: 01/01/19 1:07 AM Result Value Ref Range Glucose, POC, bld 122 70 - 199 mg/dL POCT glucose Collection Time: 01/01/19 2:29 AM Result Value Ref Range Glucose, POC, bld 105 70 - 199 mg/dL POCT glucose Collection Time: 01/01/19 5:58 AM Result Value Ref Range Glucose, POC, bld 130 70 - 199 mg/dL CBC with auto differential Collection Time: 01/01/19 6:15 AM Result Value Ref Range WBC 7.2 3.8 - 9.9 K/cumm Hgb 16.6 (H) 11.9 - 15.5 g/dL Hct 51.8 (H) 35.6 - 45.5 % Plt 306 150 - 400 K/cumm MPV 10.2 9.1 - 12.3 fL RBC 5.29 (H) 3.90 - 5.20 M/cumm MCV 97.9 (H) 81.3 - 96.4 fL MCH 31.4 27.1 - 33.3 pg MCHC 32.0 (L) 32.3 - 35.7 g/dL RDW CV 12.1 11.1 - 14.9 % RDW SD 43.6 35.7 - 48.1 fL NRBC Abs 0.00 0.00 - 0.01 K/cumm Basic metabolic panel Collection Time: 01/01/19 6:15 AM Result Value Ref Range Sodium 139 135 - 145 mmol/L Potassium, pl 4.8 3.3 - 4.9 mmol/L Chloride 99 97 - 110 mmol/L CO2 27 22 - 32 mmol/L Anion Gap 13 2 - 15 mmol/L BUN 17 8 - 25 mg/dL Creatinine 0.59 (L) 0.60 - 1.10 mg/dL Glucose 127 70 - 199 mg/dL Calcium 9.8 8.5 - 10.3 mg/dL Magnesium Collection Time: 01/01/19 6:15 AM Result Value Ref Range Magnesium 1.9 1.4 - 2.5 mg/dL Differential, auto Collection Time: 01/01/19 6:15 AM Result Value Ref Range Neutrophil absolute 3.6 1.7 - 6.5 K/cumm Immature granulocyte absolute 0.0 0.0 - 0.1 K/cumm Lymphocytes absolute 2.6 0.8 - 3.3 K/cumm Monocyte absolute 0.7 0.2 - 0.8 K/cumm Eosinophils absolute 0.2 0.0 - 0.5 K/cumm Basophils, abs 0.1 0.0 - 0.1 K/cumm Neutrophils 49.8 % Immature granulocytes 0.3 % Lymphocytes 36.1 % Monocytes 9.3 % Eosinophils 3.5 % Basophils 1.0 % eGFR Collection Time: 01/01/19 6:15 AM Result Value Ref Range GFR 98 mL/min/1.73 m2 POCT glucose Collection Time: 01/01/19 12:02 PM Result Value Ref Range Glucose, POC, bld 121 70 - 199 mg/dL POCT glucose Collection Time: 01/01/19 12:17 PM Result Value Ref Range Glucose, POC, bld 130 70 - 199 mg/dL POCT glucose Collection Time: 01/01/19 5:28 PM Result Value Ref Range Glucose, POC, bld 97 70 - 199 mg/dL Laboratory review: Lab results in the last 12 hours: Recent Results (from the past 12 hour(s)) POCT glucose Collection Time: 01/01/19 12:02 PM Result Value Ref Range Glucose, POC, bld 121 70 - 199 mg/dL POCT glucose Collection Time: 01/01/19 12:17 PM Result Value Ref Range Glucose, POC, bld 130 70 - 199 mg/dL POCT glucose Collection Time: 01/01/19 5:28 PM Result Value Ref Range Glucose, POC, bld 97 70 - 199 mg/dL Xr Chest Pa Lateral 2 Views Result Date: 12/31/2018 NO ACUTE PULMONARY CHANGE. Electronically signed by: Fernando Moore M.D. Plan: Neuro: # Acute pain -tylenol ?? #TIA 2/2 #LICA stenosis with stenting -12/29 CT negative -12/30 MRI showed a small old R occipital infarct and no acute event. pt has no residual from old infarct and states she has had no previous CVA event -12/30 CTA neck scan showed 60% blockage and L 75% blockage of internal carotid artery. -stent to LICA 01/01 (Today) -asa, lipitor -Dr. Lee following -neurology following -blood coordinator following -frequent neuro checks ?? CV: #CAD S/p remote stent to Circ and CABG x1 to LAD - cont plavix, asa, lipitor ?? #HTN -cont cozaar, metoprolol -BP goal >90 and <150 -add nicardipine/dopamine PRN BP needs ?? #paroxysmal a-flutter - Currently sinus awa in 50s - Cont metoprolol with hold paramaters - Asa, plavix - Not on chronic anticoagulation, will ldefer ?? Pulmonary: 2L NC-titrate O2 for sats >92% ?? #tobacco abuse Encourage smoking cessation ?? GI: Diet: ADAT PUD PPx: not indicated Bowel regimen: NA-advance if needed ?? Endo: #hyperglycemia 2/2 DM 2 and critical illness - Holding home dose of metformin Glycemic control - LD SSI NPO HGBA1C 5.5 Serial accuchecks BS goal 120-180 Avoid hypoglycemia ?? #hypothyroidism -cont home dose of synthroid ? Renal # High Risk for ILAN due to contrast induced nephropathy - Recevied contrast loaded several times in past few days - BUN/Cr 17/0.59 - Completed IVF following contrast - Monitor renal function, UOP, and electrolytes - Daily Labs ?? #Electrolyte abnormality -Replace PRN ?? Heme: Hgb/Hct: 16.6/51.8 Plts: 306 - No acute indication for transfusion - CBC daily ?? DVT PPX: SCD's, heparin SQ ?? ID: #E-coli UTI WBC: 10.2 > 7.2 Cont cipro x 5 days (D2) ?? Micro: 5/5 UC +E. Coli ?? ICU standards of care: Restraints: NA Physical therapy/Activity: Advance per early mobility guidelines Access: PIVs Goals of care: Full code Community PM I have spent 50 minutes in full attendance with this non-critically ill patient making frequent reassessments and decisions regarding this patient's complex medical care. This patient is a level III. Assessment and plan has been reviewed with attending, LATRELL Allen Cosigned by Evans Rodriguez MD at 01/02/2019 10:53 PM CDT * Elle Hu PTA - 01/01/2019 1:35 PM CDT Physical Therapy Unavailable, procedure, then transfer to ICU. Elle Hu PTA 01/01/19 1:36 PM * Zan Lee MD - 01/01/2019 7:39 AM CDT No neurological change--fairly intact. Presumed high grade symptomatic LICA stenosis. R/b/a for LICA stent explained. REVIEWED, UPDATED, NO CHANGES. Zan Lee MD 01/01/19 9:32 AM * Zan Lee MD - 01/01/2019 7:37 AM CDT Sedation Plan ASA 2 - Mild systemic disease Mallampati class: unable to assess. * Naga Enriquez MD - 01/01/2019 7:21 AM CDT HOSPITALIST PROGRESS NOTE PCP: Robbie Haywood [phone] Admit Date: 12/31/2018 1:59 AM LOS: 1 CHIEF COMPLAINT/ HOSPITAL COURSE Patient presented to [place] on 12/29/18 with RUE and RLE weakness that started at 1:30pm and lasted about 15-20 minutes and then resolved. No numbness, slurred speech, or double vision. No palpitations.No chest pain, pressure, or discomfort. Imaging studies there show right ICA stenosis and stenoses of the right and left carotid bulbs, theright common carotid artery, and right extraforaminal carotid arteries. CTA showed right and left bulb stenosis. Echo showed JUAN primarily. No acute CVA by MRI. She is here to see Dr. Lee of Neurosurgery regarding her carotid arterial disease. SUBJECTIVE 12/31/2018: This is a non billable encounter patient was admitted today H and P done today. In bed awake alert has no new complaints. Swallowing well. Awaiting Neurosurgery eval. 01/01/2019: Sitting up on edge of bed family at bedside. Seen by Neurosurgery yesterday. Going for left internal carotid stent today by Neurosurgery. Overnight uneventful no new complaints today. REVIEW OF SYSTEMS Has no fever chills no nausea vomiting abdominal pain no dizziness no headaches no shortness of breath no cough DATA Vitals: 12/31/18 2153 12/31/18 2345 01/01/19 0300 01/01/19 0702 BP: 131/84 158/70 130/75 113/86 BP Location: Right arm Right arm Right arm Left arm Patient Position: Lying Lying Sitting Pulse: 95 93 90 92 Resp: Temp: 36.7 ??C (98.1 ??F) 36.6 ??C (97.9 ??F) 36.9 ??C (98.4 ??F) 36.7 ??C (98.1 ??F) TempSrc: Oral Oral Oral Oral SpO2: 99% 99% 91% Weight: Height: Intake/Output Summary (Last 24 hours) at 01/01/2019 0721 Last data filed at 01/01/2019 0231 Gross per 24 hour Intake 600 ml Output 200 ml Net 400 ml CURRENT LAB RESULTS Recent Results (from the past 12 hour(s)) POCT glucose Collection Time: 12/31/18 8:48 PM Result Value Ref Range Glucose, POC, bld 112 70 - 199 mg/dL POCT glucose Collection Time: 01/01/19 1:07 AM Result Value Ref Range Glucose, POC, bld 122 70 - 199 mg/dL POCT glucose Collection Time: 01/01/19 2:29 AM Result Value Ref Range Glucose, POC, bld 105 70 - 199 mg/dL POCT glucose Collection Time: 01/01/19 5:58 AM Result Value Ref Range Glucose, POC, bld 130 70 - 199 mg/dL CBC with auto differential Collection Time: 01/01/19 6:15 AM Result Value Ref Range WBC 7.2 3.8 - 9.9 K/cumm Hgb 16.6 (H) 11.9 - 15.5 g/dL Hct 51.8 (H) 35.6 - 45.5 % Plt 306 150 - 400 K/cumm MPV 10.2 9.1 - 12.3 fL RBC 5.29 (H) 3.90 - 5.20 M/cumm MCV 97.9 (H) 81.3 - 96.4 fL MCH 31.4 27.1 - 33.3 pg MCHC 32.0 (L) 32.3 - 35.7 g/dL RDW CV 12.1 11.1 - 14.9 % RDW SD 43.6 35.7 - 48.1 fL NRBC Abs 0.00 0.00 - 0.01 K/cumm Differential, auto Collection Time: 01/01/19 6:15 AM Result Value Ref Range Neutrophil absolute 3.6 1.7 - 6.5 K/cumm Immature granulocyte absolute 0.0 0.0 - 0.1 K/cumm Lymphocytes absolute 2.6 0.8 - 3.3 K/cumm Monocyte absolute 0.7 0.2 - 0.8 K/cumm Eosinophils absolute 0.2 0.0 - 0.5 K/cumm Basophils, abs 0.1 0.0 - 0.1 K/cumm Neutrophils 49.8 % Immature granulocytes 0.3 % Lymphocytes 36.1 % Monocytes 9.3 % Eosinophils 3.5 % Basophils 1.0 % LAB TREND CBC: Lab Results Component Value Date WBC 7.2 01/01/2019 WBC 6.9 12/31/2018 HGB 16.6 (H) 01/01/2019 HGB 14.6 12/31/2018 HCT 51.8 (H) 01/01/2019 HCT 44.9 12/31/2018 BMP: Lab Results Component Value Date SODIUM 140 12/31/2018 POTASSIUM 4.3 12/31/2018 CHLORIDE 102 12/31/2018 CREATININE 0.59 (L) 12/31/2018 CALCIUM 9.0 12/31/2018 No results found for: BNP No results found for: ALKPHOS Lab Results Component Value Date MAGNESIUM 1.9 12/31/2018 No results found for: AST No results found for: ALT No results found for: PHOS RADIOLOGY US Carotids Duplex Bilateral IMPRESSION: 1. SUBOPTIMAL EXAMINATION DUE TO ANATOMIC FACTORS. [...] CAROTID ARTERY. 5. ANTEGRADE VERTEBRAL FLOW BILATERALLY. MRI Brain WO Contrast IMPRESSION: 1. MILD AGE-RELATED CORTICAL VOLUME LOSS AND WHITE MATTER CHANGE. 2. SMALL OLD RIGHT OCCIPITAL INFARCTION. 3. NO EVIDENCE OF ACUTE INTRACRANIAL EVENT. CTA Neck W WO Contrast IMPRESSION: 1. 60% right carotid bulb diameter stenosis by NASCET criteria. 2. 75% left carotid bulb proximal internal carotid artery diameter stenosis by NASCET criteria. 3. Bilaterally patent vertebral arteries, a little larger left than right. XR CHEST PA LATERAL 2 VIEWS 12/31/2018 8:40 AM FINDINGS: There are small scattered parenchymal and perihilar granulomatous calcifications. The cardiac and mediastinal outlines are unremarkable, except for poststernotomy change. There are no pleural effusions or infiltrates. No significant abnormalities are noted in the spine or remainder of the bony thorax. IMPRESSION: NO ACUTE PULMONARY CHANGE. PROCEDURES MEDICATIONS FOR CURRENT ENCOUNTER Scheduled Meds: aspirin 81 mg oral Daily atorvastatin 20 mg oral Daily ciprofloxacin 500 mg oral BID clopidogrel 75 mg oral Daily heparin 5,000 Units subcutaneous Q8H SARAH insulin lispro 1-2 Units subcutaneous Q6H SARAH levothyroxine 75 mcg oral Daily - 0600 losartan 50 mg oral Daily metoprolol 25 mg oral BID PARoxetine 20 mg oral Daily Continuous Infusions: PRN Meds:. ??? acetaminophen, 650 mg ??? dextrose, 15 g OR dextrose, 250 mL ??? glucagon, 1 mg ??? ipratropium-albuterol, 3 mL ??? ondansetron ODT, 4 mg OR ondansetron, 4 mg EXAM Vitals: 01/01/19 0702 BP: 113/86 Pulse: 92 Resp: 18 Temp: 36.7 ??C (98.1 ??F) SpO2: 91% General appearance: cooperative and no distress Head: Normocephalic, without obvious abnormality, atraumatic Lungs: clear to auscultation bilaterally Heart: regular rate and rhythm and S1, S2 normal Abdomen: soft, non-tender; bowel sounds normal; no masses, no organomegaly Extremities: extremities normal, warm and well-perfused Neurologic: Alert and oriented x4, non-focal ASSESSMENT AND PLAN All Diagnosis Present on Admission Unless Otherwise Stated: 1. CVA: MRI negative patient already seen by Neurology at [place]. Full workup of was already being done. Continue PT OT speech as indicated 2. Internal Carotid atherosclerotic stenosis: continue ASA and Plavix. Appreciate Dr. Lee neurosurgery consult. Going for left internal carotid stent today 3. Pneumonia ruled out 4. HTN: Continue Lopressor Cozaar monitor blood pressure 5. Diabetes mellitus continue sliding scale insulin monitor fingerstick blood sugar 6. E coli UTI, continue p.o. Cipro 7. Paroxysmal aflutter: now in NSR continue metoprolol monitor blood pressure 8. CAD with h/o stents and CABG: continue Plavix aspirin Lipitor 9. Tobacco abuse: encouraged cessation. 10. DVT ppx: heparin sq Medical Decision Making Complexity: Moderate Consulting physicians: Treatment Team: Consulting Physician: Trisha Jesus MD; Consulting Physician:Zan Lee MD Disposition: Pending LICA stent Code status: Full Code Voice recognition software eduplanet KK Direct was used dictate and transcribe this document. Court Orderly variances may occur. Despite proofreading, typographical errors may occur. Naga Enriquez MD. HOSPITALIST 01/01/2019 7:21 AM * La Mcclellan, BIOMETRY TEACHER - 01/01/2019 7:10 AM CDT Speech Language/Pathology Speech/Language Pathology Initial/Discharge Assessment Patient Name: Tressa Myers Today's Date: 01/01/2019 Problem List Patient Active Problem List Diagnosis ??? CVA (cerebral vascular accident) (CMS/HCC) ??? Carotid atherosclerosis ??? Abnormal CXR ??? Essential hypertension ??? Type 2 diabetes mellitus with circulatory disorder, without long-term current use of insulin (CMS/HCC) ??? Acute cystitis without hematuria ??? Paroxysmal atrial flutter (CMS/HCC) ??? Coronary artery disease involving nondalton coronary artery of nondalton heart without angina pectoris ??? History of coronary artery stent placement ??? Hx of CABG ??? Tobacco abuse Past Medical History Past Medical History: Diagnosis Date ??? Carotid atherosclerosis ??? Diabetes mellitus (CMS/HCC) ??? History of other diseases of the circulatory system, not elsewhere classified Coronary Artery Disease - Was having SOB outpatient. Had stress echo/EKG outpatient 05/07/13, 1.[address] segment depression noted inferiorly and [address] segment depression noted laterally; EF60-65%, hypokinesis of the distal septum, probably diastolic dysfunction. LHC (05/07/13) (1) [id number]% narrowings from proximal to distal RCA (2) R large PDA with 50% near ostial narrowing, (3) * ??? Paroxysmal atrial flutter (CMS/HCC) ??? Personal history of other diseases of the circulatory system History of hypertension - (Added by TW Conv) ??? Personal history of other diseases of the digestive system History of esophageal reflux - (Added by TW Conv) ??? Personal history of other mental and behavioral disorders History of anxiety disorder - (Added by TW Conv) ??? Stroke (CMS/HCC) Past Surgical History Past Surgical History: Procedure Laterality Date ??? CORONARY ARTERY BYPASS GRAFT ??? LA LIGATE FALLOPIAN TUBE Tubal Ligation - (Added by TW Conv) ??? LA PRQ TRLUML CORONARY STENT W/ANGIO ONE ART/BRNCH Cath Stent Placement - Xience TOM to LCX (04/2013) (Added by TW Conv) Oral/Motor Assessment Oral/Motor Labial ROM: Within Functional Limits Comprehension Expression Verbal Expression Primary Mode of Expression: Verbal Conversation: Within Functional Limits Higher Cognitive Functioning Pain Pain Assessment Pain Assessment: No/denies pain Assessment/Recommendation Speech Therapy Prognosis Services: No skilled BIOMETRY TEACHER services at this time Prognosis: Excellent Recommendations BIOMETRY TEACHER Recommendation (Add'l Services): Home independently BIOMETRY TEACHER Frequency of Services: One-time visit (Discharge from this service) Speech Evaluation Complete: Yes Goals Multi-Disciplinary Problems (from Speech Therapy) Active Problems Not on file * Christiano Novak NP - 12/31/2018 5:39 PM CDT Neurology Daily Progress Note Subjective Chief complaint of transient right-sided weakness. Interval History: The patient is awake and alert, sitting in bed. She denies right-sided weakness and numbness. There are no new neurological complaints. Review of Systems Constitution: Negative for chills, diaphoresis and fever. HENT: Negative for hearing loss and tinnitus. Eyes: Negative for blurred vision. Cardiovascular: Negative for chest pain and syncope. Respiratory: Negative for cough. Skin: Negative for rash. Musculoskeletal: Negative for neck pain. Gastrointestinal: Negative for bowel incontinence, nausea and vomiting. Genitourinary: Negative for bladder incontinence. Neurological: Negative for brief paralysis, difficulty with concentration, disturbances in coordination, dizziness, focal weakness, light-headedness, loss of balance, paresthesias, seizures, sensory change, tremors and weakness. Psychiatric/Behavioral: Negative for altered mental status and memory loss. Current Facility-Administered Medications Medication Dose Route Frequency Provider Last Rate Last Dose ??? acetaminophen (TYLENOL) tablet 650 mg 650 mg oral Q4H PRN Melvin Caro MD ??? aspirin enteric coated tablet 81 mg 81 mg oral Daily Melvin Caro MD ??? atorvastatin (LIPITOR) tablet 20 mg 20 mg oral Daily Melvin Caro MD ??? ciprofloxacin (CIPRO) tablet 500 mg 500 mg oral BID Naga Enriquez MD 500 mg at 12/31/18 1319 ??? clopidogrel (PLAVIX) tablet 150 mg 150 mg oral Once Zan Lee MD ??? clopidogrel (PLAVIX) tablet 75 mg 75 mg oral Daily Melvin Caro MD ??? dextrose oral liquid liquid 15 g 15 g oral Q15 Min PRN Melvin Caro MD Or ??? dextrose (D10W) 10% bolus 250 mL 250 mL intravenous Q15 Min PRN Melvin aCro MD ??? glucagon injection 1 mg 1 mg intramuscular Q30 Min PRN Melvin Caro MD ??? heparin 5,000 unit/mL injection 5,000 Units 5,000 Units subcutaneous Q8H [facility] Melvin Caro MD 5,000 Units at 12/31/18 0802 ??? insulin lispro (HumaLOG) injection 1-2 Units 1-2 Units subcutaneous Q6H SARAH Melvin Caro MD ??? ipratropium-albuterol (DUO-NEB) 0.5-2.5 mg/3 mL nebulizer solution 3 mL 3 mL nebulization Q4H PRN (RT) Melvin Caro MD ??? levothyroxine (SYNTHROID, LEVOTHROID) tablet 75 mcg 75 mcg oral Daily - 0600 Melvin Caro MD 75 mcg at 12/31/18 0802 ??? losartan (COZAAR) tablet 50 mg 50 mg oral Daily Melvin Caro MD ??? metoprolol (LOPRESSOR) tablet 25 mg 25 mg oral BID Melvin Caro MD 25 mg at ??? ondansetron ODT (ZOFRAN-ODT) disintegrating tablet 4 mg 4 mg oral Q6H PRN Melvin Caro MD Or ??? ondansetron (ZOFRAN) injection 4 mg 4 mg intravenous Q6H PRN Melvin Caro MD ??? PARoxetine (PAXIL) tablet 20 mg 20 mg oral Daily Melvin Caro MD 20 mg at 12/31/18 1005 Objective Vitals: 24hr Min/Max: Temp Min: 36.1 ??C (96.9 ??F) Max: 36.9 ??C (98.4 ??F) Pulse Min: 61 Max: 84 BP Min: 109/85 Max: 179/85 Resp Min: 16 Max: 20 SpO2 Min: 92 % Max: 99 % Most Recent: Vitals: 12/31/18 1545 BP: 109/85 Pulse: 61 Resp: 16 Temp: 36.9 ??C (98.4 ??F) SpO2: 92% Physical Exam Constitutional: She is oriented to person, place, and time. She appears well- developed and well-nourished. No distress. HENT: Head: Normocephalic and atraumatic. Eyes: Pupils are equal, round, and reactive to light. Conjunctivae and EOM are normal. Neck: Neck supple. No tracheal deviation present. Cardiovascular: Normal rate and regular rhythm. Exam reveals no gallop and no friction rub. No murmur heard. Pulmonary/Chest: Effort normal. No respiratory distress. Abdominal: Soft. Musculoskeletal: Normal range of motion. She exhibits no edema. Neurological: She is alert and oriented to person, place, and time. She has normal strength. She has a normal Pxmpnd-Teld-Dyenfi Test. Reflex Scores: Tricep reflexes are 1+ on the right side and 1+ on the left side. Bicep reflexes are 1+ on the right side and 1+ on the left side. Brachioradialis reflexes are 1+ on the right side and 1+ on the left side. Patellar reflexes are 1+ on the right side and 1+ on the left side. Achilles reflexes are 1+ on the right side and 1+ on the left side. Skin: Skin is warm and dry. No rash noted. She is not diaphoretic. Psychiatric: Her speech is normal. Neurologic Exam Mental Status Oriented to person, place, and time. Speech: speech is normal Level of consciousness: alert Cranial Nerves CN II Visual shah full to confrontation. CN III, IV, Pupils are equal, round, and reactive to light. Extraocular motions are normal. CN V Facial sensation intact. CN VII Facial expression full, symmetric. CN VIII CN VIII normal. CN IX, X CN IX normal. CN X normal. CN XI CN XI normal. CN XII CN XII normal. Motor Exam Muscle bulk: normal Overall muscle tone: normal Right arm tone: normal Left arm tone: normal Right arm pronator drift: absent Left arm pronator drift: absent Right leg tone: normal Left leg tone: normal Strength Strength 5/5 throughout. Sensory Exam Light touch normal. Gait, Coordination, and Reflexes Gait Gait: (Not assessed) Coordination Finger to nose coordination: normal Tremor Resting tremor: absent Intention tremor: absent Action tremor: absent Reflexes Right brachioradialis: 1+ Left brachioradialis: 1+ Right biceps: 1+ Left biceps: 1+ Right triceps: 1+ Left triceps: 1+ Right patellar: 1+ Left patellar: 1+ Right achilles: 1+ Left achilles: 1+ Right slate roofer: 2+ Left slate roofer: 2+ Right plantar: normal Left plantar: normal No intake/output data recorded. I/O this shift: In: 360 [P.O.:360] Out: 0 Lab/Radiology/Diagnostic Review: . December 30, 2018 transthoracic echocardiogram: EF 60%. No mural thrombosis, valvular vegetation, [id number] shunt. 2. December 30, 2018 lipid panel: Cholesterol 151, triglycerides 135, HDL 39, LDL 85 3. December 31, 2018 hemoglobin A1c: 5.5 4. December 30, 2017 CTA neck: 60% right carotid stenosis. 75% left carotid stenosis. I have personally reviewed the films and will discuss with Dr. Jesus. ASSESSMENTPLAN: 1. TIA: Ms. Myers is 63-year-old presents with sudden onset neurological changes characterized by transient right upper lower extremity weakness. Profound weakness of the right upper extremity. Significant risk factors for stroke include hypercholesteremia, hypertension, diabetes, and carotid stenosis. Continue aspirin and Plavix and atorvstatin. Optimize hypertension. ?? 2. Severe stenosis of the carotid: CT angiogram confirmed left internal carotid artery stenosis is indicated above. Neurosurgery note reviewed. Patient scheduled for left internal carotid artery stent tomorrow. ?? 3. UTI: Recommend to continue antibiotic treatment Neurology will follow the patient as needed. Please call with any questions or further neurologicalsymptoms. Thank you for allowing us to participate in your patient's care. Christiano Novak NP * Radha Malin, PT - 12/31/2018 3:51 PM CDT Physical Therapy INITIAL EVALUATION PATIENT'S NAME:Tressa Myers :1955 AGE:63 y.o. TIME IN:1551 TIME OUT:1605 CURRENT DIAGNOSIS AND HOSPITAL COURSE:right sided weakness with carotid arterial dis Patient Active Problem List Diagnosis ??? CVA (cerebral vascular accident) (CMS/HCC) ??? Carotid atherosclerosis ??? Abnormal CXR ??? Essential hypertension ??? Type 2 diabetes mellitus with circulatory disorder, without long-term current use of insulin (CMS/HCC) ??? Acute cystitis without hematuria ??? Paroxysmal atrial flutter (CMS/HCC) ??? Coronary artery disease involving nondalton coronary artery of nondalton heart without angina pectoris ??? History of coronary artery stent placement ??? Hx of CABG ??? Tobacco abuse Past Medical History: Diagnosis Date ??? Carotid atherosclerosis ??? Diabetes mellitus (CMS/HCC) ??? History of other diseases of the circulatory system, not elsewhere classified Coronary Artery Disease - Was having SOB outpatient. Had stress echo/EKG outpatient 05/07/13, 1.[address] segment depression noted inferiorly and [address] segment depression noted laterally; EF60-65%, hypokinesis of the distal septum, probably diastolic dysfunction. [facility] (05/07/13) (1) [id number]% narrowings from proximal to distal RCA (2) R large PDA with 50% near ostial narrowing, (3) * ??? Paroxysmal atrial flutter (CMS/HCC) ??? Personal history of other diseases of the circulatory system History of hypertension - (Added by TW Conv) ??? Personal history of other diseases of the digestive system History of esophageal reflux - (Added by TW Conv) ??? Personal history of other mental and behavioral disorders History of anxiety disorder - (Added by TW Conv) ??? Stroke (CMS/HCC) Past Surgical History: Procedure Laterality Date ??? CORONARY ARTERY BYPASS GRAFT ??? LA LIGATE FALLOPIAN TUBE Tubal Ligation - (Added by TW Conv) ??? 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 EQUIPMENT OWNED: none EQUIPMENT USED: none SOCIAL SUPPORTS: 4 children PATIENT/FAMILY GOAL: none stated MENTAL STATUS/ORIENTATION: Alert and oriented x4 OBJECTIVE PRECAUTIONS: fall risk APPEARANCE/POSTURE: sitting edge of bed without lines attached VITAL SIGNS: Resting BP: 109/85 Post-activity BP: NA Resting heart rate: 61 Post-activity heart rate: NA Post-activity O2 sat: NA PAIN: Pre-therapy pain level: 0/10 Pain location: NA Pain intervention: NA Post-therapy pain level/response to intervention: 0/10 LE ASSESSMENTS: Right LE ROM: WFL Left LE ROM: WFL Right LE strength: WFL Left LE strength: WFL Coordination: not tested Tone: WFL MOBILITY: Bed mobility: independent Transfers: sit to stand with modified independence, bed to chair with modified independence Ambulation: Distance: 250' Assistive device: no assistive device Level of assist: supervision Deviations: none noted Stairs: Not tested Balance/Special Tests: Static sitting balance: good Dynamic sitting balance: good Static standing balance: good Dynamic standing balance: good MARIANO not assessed due to decreased time APPEARANCE/POSTURE (end of session): supine in bed with bed alarm in place EDUCATION: patient educated on plan of care RESPONSE TO EDUCATION: needs reinforcement ASSESSMENT PROBLEM LIST: decreased mobility BARRIERS TO LEARNING: Physical BARRIERS TO DISCHARGE: NA REHAB POTENTIAL/PROGNOSIS: excellent PLAN RECOMMENDATIONS: home with intermittent family assist TREATMENT PLAN/INTERVENTIONS: balance assessment/ training FREQUENCY: 3-5x/week EQUIPMENT RECOMMENDATIONS: none stated Refer to multi-disciplinary care plan section for PT specific goals. If this is the last note, please consider this the discharge summary. * Kaylee Simmons - 12/31/2018 12:02 PM CDT Nutrition Assessment Reason for Assessment: Initial Nutrition Assessment and Consult/Referral Encounter Date: 12/31/18 12:02 PM Nutrition Assessment and Plan: Patient is a 63 y.o. female. Admit Dx: TIA WITH CAROTID STENOSIS. Admitted on 12/31/2018, current LOSis 0 days. Consulted per stroke protocol. Pt currently NPO. Per documentation, pt swallowing well, no documented N/V. MRI negative. A1c 5.5. Recommend diet advancement as medically able. Will monitordiet advancement per BIOMETRY TEACHER evaluation. Will f/u for further edu needs. Will continue to monitor pt and will f/u with diet advancement, nutrition and wt status, labs, and any additional nutrition needs. Nutrition Screen What diet do you follow at home?: regular Have You Recently Lost Weight Without Trying?: No Poor Oral Intake for Four or More Days Prior to Admission: No Current diet order: NPO Diet Sips with meds Pt intake is inadequate. Nutrition Diagnosis 1: Inadequate oral intake Related to: NPO status Evidenced by: Physical finding ?? Interventions: Communication(Recommend diet advancement as medically able.) ?? Monitoring and Evaluation: Blood glucoses, Diet advancement, Discharge plans, Labs, Plan of care, Weight changes ?? Goals: Advance to oral intake as medically able Estimated needs: ?? Total Kcal/kg Estimated Needs : 1537.5 based on Kcal/k. Type of Weight Used for Estimated Kcals: Current ?? Total Protein Estimated Needs (gm): 79.38 Protein Needs Based on g/k.4 Type of Weight Used for Estimated Protein : [place]. ?? Total Fluid Estimated Needs: 1537.5 Fluid Needs Based on : 1 ml/kcal. Objective Anthropometrics Weight: 102.5 kg (225 lb 15.5 oz) Weight Change: -1.20 kg (-2.64 lbs) IBW/kg (Calculated) : 56.7 kg Height: 165.1 cm (5' 5 ) Weight in (lb) to have BMI = 25: 149.9 BMI (Calculated): 37.6 3 Day I/O Summary No intake/output data recorded. Temp: 36.1 ??C (97 ??F) Past Medical History: Diagnosis Date ??? Carotid atherosclerosis ??? Diabetes mellitus (CMS/HCC) ??? History of other diseases of the circulatory system, not elsewhere classified Coronary Artery Disease - Was having SOB outpatient. Had stress echo/EKG outpatient 05/07/13, 1.[address] segment depression noted inferiorly and [address] segment depression noted laterally; EF60-65%, hypokinesis of the distal septum, probably diastolic dysfunction. [facility] (05/07/13) (1) Rahsfkr93% narrowings from proximal to distal RCA (2) R large PDA with 50% near ostial narrowing, (3) * ??? Paroxysmal atrial flutter (CMS/HCC) ??? Personal history of other diseases of the circulatory system History of hypertension - (Added by TW Conv) ??? Personal history of other diseases of the digestive system History of esophageal reflux - (Added by TW Conv) ??? Personal history of other mental and behavioral disorders History of anxiety disorder - (Added by TW Conv) ??? Stroke (CMS/HCC) Medications and Lab Review: Scheduled Meds: aspirin 81 mg oral Daily atorvastatin 20 mg oral Daily ciprofloxacin 500 mg oral BID clopidogrel 75 mg oral Daily heparin 5,000 Units subcutaneous Q8H SARAH insulin lispro 1-2 Units subcutaneous Q6H SARAH levothyroxine 75 mcg oral Daily - 0600 losartan 50 mg oral Daily metoprolol 25 mg oral BID PARoxetine 20 mg oral Daily Continuous Infusions: Sodium Date Value Ref Range Status 12/31/2018 140 135 - 145 mmol/L Final Potassium, pl Date Value Ref Range Status 12/31/2018 4.3 3.3 - 4.9 mmol/L Final BUN Date Value Ref Range Status 12/31/2018 15 8 - 25 mg/dL Final Creatinine Date Value Ref Range Status 12/31/2018 0.59 (L) 0.60 - 1.10 mg/dL Final Albumin Date Value Ref Range Status 12/29/2018 4.1 3.5 - 5.0 g/dL Final Magnesium Date Value Ref Range Status 12/31/2018 1.9 1.4 - 2.5 mg/dL Final Calcium Date Value Ref Range Status 12/31/2018 9.0 8.5 - 10.3 mg/dL Final HDL Date Value Ref Range Status 12/30/2018 39 (L) >=40 mg/dL Final Comment: Interpretive Data Ages < or = 19 years Acceptable: >45 mg/dL Borderline low: 40-45 mg/dL Low: <40 mg/dL Ages > or = 20 years Desirable: >or= 60 mg/dL Low: <40 mg/dL Literature References: 1. Expert Panel on Integrated Guidelines for Cardiovascular Health and Risk Reduction in Children and Adolescents. Pediatrics 2011;128:S213 2. NCEP Expert Panel. Circulation 2004;110:227 Current Interpretive Data was last revised on 2018. Lab Results Component Value Date HGBA1C 5.5 12/31/2018 POC Glucose: Results for TRESSA MYERS ( ) as of 12/31/2018 11:57 Ref. Range 12/30/2018 17:31 12/30/2018 22:01 12/31/2018 02:37 12/31/2018 06:10 12/31/2018 06:42 Glucose, POC, bld Latest Ref Range: 70 - 199 mg/dL 119 (H) 118 (H) 145 130 Nursing Assessment: Last BM Date: 12/29/18 Bowel Sounds (All Quadrants): Active, Present Walter Scale Score: 20 Skin Integrity: (scabs noted ) Diet Instructions Recommend consistent carbohydrate, heart healthy diet upon discharge. Aim for 45-60g of carbohydrate per meal. Limit sodium intake to 2000mg per day. Avoid concentrated sweets such as soda, juices, sweet tea, and candy. For nutrition related questions, please call dietitian's office at [phone]. Nutrition Follow-Up : 01/03/19 Kaylee Simmons MA, RD, LD * Naga Enriquez MD - 12/31/2018 9:53 AM CDT HOSPITALIST PROGRESS NOTE PCP: Robbie Haywood [phone] Admit Date: 12/31/2018 1:59 AM LOS: 0 CHIEF COMPLAINT/ HOSPITAL COURSE Patient presented to [facility] on 12/29/18 with RUE and RLE weakness that started at 1:30pm and lasted about 15-20 minutes and then resolved. No numbness, slurred speech, or double vision. No palpitations.No chest pain, pressure, or discomfort. Imaging studies there show right ICA stenosis and stenoses of the right and left carotid bulbs, theright common carotid artery, and right extraforaminal carotid arteries. CTA showed right and left bulb stenosis. Echo showed JUAN primarily. No acute CVA by MRI. She is here to see Dr. Lee of Neurosurgery regarding her carotid arterial disease. SUBJECTIVE 12/31/2018: This is a non billable encounter patient was admitted today H and P done today. In bed awake alert has no new complaints. Swallowing well. Awaiting Neurosurgery eval. REVIEW OF SYSTEMS Denies fever chills no nausea vomiting abdominal pain no dizziness no headaches no shortness of breath no cough DATA Vitals: 12/31/18 0150 12/31/18 0530 12/31/18 0930 BP: 148/94 168/84 128/72 BP Location: Right arm Right arm Right arm Patient Position: Lying Lying Pulse: 67 61 71 Resp: 20 20 20 Temp: 36.6 ??C (97.9 ??F) 36.7 ??C (98 ??F) 36.1 ??C (97 ??F) TempSrc: Oral Oral Oral SpO2: 92% 93% 92% Weight: 102.5 kg (225 lb 15.5 oz) Height: 165.1 cm (5' 5 ) No intake or output data in the 24 hours ending 12/31/18 0954 CURRENT LAB RESULTS Recent Results (from the past 12 hour(s)) POCT glucose Collection Time: 12/30/18 10:01 PM Result Value Ref Range Glucose, POC, bld 118 (H) 71 - 98 mg/dL POCT glucose Collection Time: 12/31/18 2:37 AM Result Value Ref Range Glucose, POC, bld 145 70 - 199 mg/dL POCT glucose Collection Time: 12/31/18 6:10 AM Result Value Ref Range Glucose, POC, bld 130 70 - 199 mg/dL Hemoglobin A1c Collection Time: 12/31/18 6:42 AM Result Value Ref Range Hgb A1C 5.5 4.0 - 5.6 % Estimated Average Glucose 111 mg/dL CBC with auto differential Collection Time: 12/31/18 6:42 AM Result Value Ref Range WBC 6.9 3.8 - 9.9 K/cumm Hgb 14.6 11.9 - 15.5 g/dL Hct 44.9 35.6 - 45.5 % Plt 255 150 - 400 K/cumm MPV 9.9 9.1 - 12.3 fL RBC 4.71 3.90 - 5.20 M/cumm MCV 95.3 81.3 - 96.4 fL MCH 31.0 27.1 - 33.3 pg MCHC 32.5 32.3 - 35.7 g/dL RDW CV 12.1 11.1 - 14.9 % RDW SD 42.4 35.7 - 48.1 fL NRBC Abs 0.00 0.00 - 0.01 K/cumm Basic metabolic panel Collection Time: 12/31/18 6:42 AM Result Value Ref Range Sodium 140 135 - 145 mmol/L Potassium, pl 4.3 3.3 - 4.9 mmol/L Chloride 102 97 - 110 mmol/L CO2 26 22 - 32 mmol/L Anion Gap 12 2 - 15 mmol/L BUN 15 8 - 25 mg/dL Creatinine 0.59 (L) 0.60 - 1.10 mg/dL Glucose 147 70 - 199 mg/dL Calcium 9.0 8.5 - 10.3 mg/dL Magnesium Collection Time: 12/31/18 6:42 AM Result Value Ref Range Magnesium 1.9 1.4 - 2.5 mg/dL Differential, auto Collection Time: 12/31/18 6:42 AM Result Value Ref Range Neutrophil absolute 4.0 1.7 - 6.5 K/cumm Immature granulocyte absolute 0.0 0.0 - 0.1 K/cumm Lymphocytes absolute 1.9 0.8 - 3.3 K/cumm Monocyte absolute 0.6 0.2 - 0.8 K/cumm Eosinophils absolute 0.3 0.0 - 0.5 K/cumm Basophils, abs 0.1 0.0 - 0.1 K/cumm Neutrophils 57.6 % Immature granulocytes 0.4 % Lymphocytes 28.0 % Monocytes 9.2 % Eosinophils 3.9 % Basophils 0.9 % eGFR Collection Time: 12/31/18 6:42 AM Result Value Ref Range GFR 98 mL/min/1.73 m2 LAB TREND CBC: Lab Results Component Value Date WBC 6.9 12/31/2018 HGB 14.6 12/31/2018 HCT 44.9 12/31/2018 BMP: Lab Results Component Value Date SODIUM 140 12/31/2018 POTASSIUM 4.3 12/31/2018 CHLORIDE 102 12/31/2018 CREATININE 0.59 (L) 12/31/2018 CALCIUM 9.0 12/31/2018 No results found for: BNP No results found for: ALKPHOS Lab Results Component Value Date MAGNESIUM 1.9 12/31/2018 No results found for: AST No results found for: ALT No results found for: PHOS RADIOLOGY US Carotids Duplex Bilateral IMPRESSION: 1. SUBOPTIMAL EXAMINATION DUE TO ANATOMIC FACTORS. [...] CAROTID ARTERY. 5. ANTEGRADE VERTEBRAL FLOW BILATERALLY. MRI Brain WO Contrast IMPRESSION: 1. MILD AGE-RELATED CORTICAL VOLUME LOSS AND WHITE MATTER CHANGE. 2. SMALL OLD RIGHT OCCIPITAL INFARCTION. 3. NO EVIDENCE OF ACUTE INTRACRANIAL EVENT. CTA Neck W WO Contrast IMPRESSION: 1. 60% right carotid bulb diameter stenosis by NASCET criteria. 2. 75% left carotid bulb proximal internal carotid artery diameter stenosis by NASCET criteria. 3. Bilaterally patent vertebral arteries, a little larger left than right. XR CHEST PA LATERAL 2 VIEWS 12/31/2018 8:40 AM FINDINGS: There are small scattered parenchymal and perihilar granulomatous calcifications. The cardiac and mediastinal outlines are unremarkable, except for poststernotomy change. There are no pleural effusions or infiltrates. No significant abnormalities are noted in the spine or remainder of the bony thorax. IMPRESSION: NO ACUTE PULMONARY CHANGE. PROCEDURES MEDICATIONS FOR CURRENT ENCOUNTER Scheduled Meds: aspirin 81 mg oral Daily atorvastatin 20 mg oral Daily clopidogrel 75 mg oral Daily heparin 5,000 Units subcutaneous Q8H SARAH insulin lispro 1-2 Units subcutaneous Q6H SARAH levoFLOXacin 750 mg oral Q24H SARAH levothyroxine 75 mcg oral Daily - 0600 losartan 50 mg oral Daily metoprolol 25 mg oral BID PARoxetine 20 mg oral Daily Continuous Infusions: PRN Meds:. ??? acetaminophen, 650 mg ??? dextrose, 15 g OR dextrose, 250 mL ??? glucagon, 1 mg ??? ipratropium-albuterol, 3 mL ??? ondansetron ODT, 4 mg OR ondansetron, 4 mg EXAM Vitals: 12/31/18 0930 BP: 128/72 Pulse: 71 Resp: 20 Temp: 36.1 ??C (97 ??F) SpO2: 92% General appearance: cooperative and no distress Head: Normocephalic, without obvious abnormality, atraumatic Lungs: clear to auscultation bilaterally Heart: regular rate and rhythm and S1, S2 normal Abdomen: soft, non-tender; bowel sounds normal; no masses, no organomegaly Extremities: extremities normal, warm and well-perfused Neurologic: Alert and oriented x4, non-focal ASSESSMENT AND PLAN All Diagnosis Present on Admission Unless Otherwise Stated: 1. CVA: MRI negative patient already seen by Neurology at [facility]. Full workup of was already being done. Continue PT OT speech as indicated 2. Internal Carotid atherosclerotic disease: continue ASA and Plavix. Dr. Lee to consult. 3. Pneumonia ruled out 4. HTN: Continue Lopressor Cozaar monitor blood pressure 5. Diabetes mellitus continue sliding scale insulin monitor fingerstick blood sugar 6. E coli UTI, change Levaquin to p.o. Cipro 7. Paroxysmal aflutter: now in NSR continue metoprolol monitor blood pressure 8. CAD with h/o stents and CABG: continue Plavix aspirin Lipitor 9. Tobacco abuse: encouraged cessation. 10. DVT ppx: heparin sq Medical Decision Making Complexity: Moderate Consulting physicians: Treatment Team: Consulting Physician: Trisha Jesus MD; Consulting Physician:Zan Lee MD Disposition: Pending neurosurgical eval Code status: Full Code Voice recognition software eduplanet KK Direct was used dictate and transcribe this document. Court Orderly variances may occur. Despite proofreading, typographical errors may occur. Naga Enriquez MD. HOSPITALIST 12/31/2018 9:54 AM documented in this encounter H&P Notes * Melvin Caro MD - 12/31/2018 2:48 AM CDT General Medicine History and Physical DATE OF SERVICE: 12/31/18 PRIMARY CARE PHYSICIAN: Dr. Robbie Haywood SUBJECTIVE: Patient is a 63 y.o. female with a chief complaint of weaknes. HPI: Patient presented to [facility] on 12/29/18 with RUE and RLE weakness that started at 1:30pm and lasted about 15-20 minutes and then resolved. No numbness, slurred speech, or double vision. No palpitations.No chest pain, pressure, or discomfort. Imaging studies there show right ICA stenosis and stenoses of the right and left carotid bulbs, theright common carotid artery, and right extraforaminal carotid arteries. CTA showed right and left bulb stenosis. Echo showed JUAN primarily. No acute CVA by MRI. She is here for Dr. Lee to consult regarding her carotid arterial disease. Past Medical History: Diagnosis Date ??? Carotid atherosclerosis ??? Diabetes mellitus (CMS/HCC) ??? History of other diseases of the circulatory system, not elsewhere classified Coronary Artery Disease - Was having SOB outpatient. Had stress echo/EKG outpatient 05/07/13, 1.[address] segment depression noted inferiorly and [address] segment depression noted laterally; EF60-65%, hypokinesis of the distal septum, probably diastolic dysfunction. [facility] (05/07/13) (1) [id number]% narrowings from proximal to distal RCA (2) R large PDA with 50% near ostial narrowing, (3) * ??? Paroxysmal atrial flutter (CMS/HCC) ??? Personal history of other diseases of the circulatory system History of hypertension - (Added by TW Conv) ??? Personal history of other diseases of the digestive system History of esophageal reflux - (Added by TW Conv) ??? Personal history of other mental and behavioral disorders History of anxiety disorder - (Added by TW Conv) ??? Stroke (CMS/HCC) Past Surgical History: Procedure Laterality Date ??? CORONARY ARTERY BYPASS GRAFT ??? LA LIGATE FALLOPIAN TUBE Tubal Ligation - (Added by TW Conv) ??? LA PRQ TRLUML CORONARY STENT W/ANGIO ONE ART/BRNCH Cath Stent Placement - Xience TOM to LCX (04/2013) (Added by TW Conv) Medications Prior to Admission Medication Sig Dispense Refill Last Dose ??? aspirin 81 mg enteric coated tablet daily 12/28/2018 at Unknown time ??? clopidogrel (PLAVIX) 75 mg tablet clopidogrel 75 mg tablet cardio 12/28/2018 at Unknown time ??? levothyroxine (SYNTHROID, LEVOTHROID) 75 mcg tablet Take 75 mcg by mouth lock installer before breakfast 3 12/28/2018 at Unknown time ??? losartan (COZAAR) 50 mg tablet losartan 50 mg tablet TAKE 1 TABLET BY MOUTH ONCE DAILY 12/28/2018 at Unknown time ??? metFORMIN (GLUCOPHAGE) 1,000 mg tablet 1,000 mg 2 (two) times a day with meals 3 12/29/2018 at Unknown time ??? metoprolol (LOPRESSOR) 25 mg tablet metoprolol tartrate 25 mg tablet TAKE 1 TABLET BY MOUTH TWICE DAILY 12/29/2018 at Unknown time ??? PARoxetine (PAXIL) 20 mg tablet Take 20 mg by mouth 2 (two) times a day 12/28/2018 at Unknown time ??? simvastatin (ZOCOR) 40 mg tablet daily 12/28/2018 at Unknown time Allergies Allergen Reactions ??? Cefazolin Social History Tobacco Use ??? Smoking status: Light Tobacco Smoker Packs/day: 0.25 Types: Cigarettes ??? Smokeless tobacco: Never Used ??? Tobacco comment: history of 2ppd for 30yrs prior to cutting back. Substance Use Topics ??? Alcohol use: Yes Frequency: Never Comment: occasionally. Family History Problem Relation Age of Onset ??? Coronary artery disease Mother Family history of coronary artery disease - Premature CAD (Added by Conv) ??? Heart disease Mother ??? Coronary artery disease Other Family history of coronary artery disease - Premature CAD (Added by TW Conv) Prior to Admission medications Medication Sig Start Date End Date Taking? Authorizing Provider aspirin 81 mg enteric coated tablet daily Historical Provider, clopidogrel (PLAVIX) 75 mg tablet clopidogrel 75 mg tablet cardio Historical Provider, levothyroxine (SYNTHROID, LEVOTHROID) 75 mcg tablet Take 75 mcg by mouth lock installer before breakfast 12/05/18 Historical Provider, losartan (COZAAR) 50 mg tablet losartan 50 mg tablet TAKE 1 TABLET BY MOUTH ONCE DAILY Historical Provider, metFORMIN (GLUCOPHAGE) 1,000 mg tablet 1,000 mg 2 (two) times a day with meals 12/05/18 Historical Provider, metoprolol (LOPRESSOR) 25 mg tablet metoprolol tartrate 25 mg tablet TAKE 1 TABLET BY MOUTH TWICE DAILY Historical Provider, PARoxetine (PAXIL) 20 mg tablet Take 20 mg by mouth 2 (two) times a day Historical Provider, simvastatin (ZOCOR) 40 mg tablet daily Historical Provider, Review of Systems Constitutional: Negative for fever. HENT: Negative for sneezing. Respiratory: Negative for cough and shortness of breath Cardiovascular: Negative for chest pain. Gastrointestinal: Negative for diarrhea and vomiting. Genitourinary: Negative for dysuria. Musculoskeletal: Negative for arthralgias. Skin: Negative for rash. Neurological: Negative for numbness and Positive for weakness as per HPI. Psychiatric/Behavioral: Negative for agitation. OBJECTIVE: Vitals: Arrival Vitals [12/31/18 0150] Temp 36.6 ??C (97.9 ??F) Pulse 67 Resp 20 BP 148/94 SpO2 92 % Temp src Oral Heart Rate Source Patient Position Lying BP Location Right arm FiO2 (%) Most Recent : Vitals: 12/31/18 0150 BP: 148/94 BP Location: Right arm Patient Position: Lying Pulse: 67 Resp: 20 Temp: 36.6 ??C (97.9 ??F) TempSrc: Oral SpO2: 92% Weight: 102.5 kg (225 lb 15.5 oz) Height: 165.1 cm (5' 5 ) Physical exam: General appearance: appears stated age and cooperative Head: Normocephalic, without obvious abnormality, atraumatic Eyes: conjunctivae clear Neck: no JVD and supple, symmetrical, trachea midline Lungs: clear to auscultation bilaterally and no rubs Heart: Regular rate and rhythm, S1, S2 normal, no murmur click, rub, or gallop Abdomen: soft, non-tender; no masses, no organomegaly Extremities: extremities normal warm and well-perfused Skin: Skin color texture, turgor normal. No rashes or lesions Neurologic: Alert and oriented x4, CN 2-12 intact Strength and sensation normal bilaterally and x4. [id number] and [id number] diminished on the right. Lab/Radiology/Diagnostic Review: Recent Results (from the past 24 hour(s)) Basic metabolic panel Collection Time: 12/30/18 4:33 AM Result Value Ref Range Sodium 135 135 - 145 mmol/L Potassium, pl 4.0 3.3 - 4.9 mmol/L Chloride 100 97 - 110 mmol/L CO2 23 22 - 32 mmol/L Anion Gap 11 2 - 15 mmol/L BUN 13 8 - 25 mg/dL Creatinine 0.53 (L) 0.60 - 1.10 mg/dL Glucose 131 70 - 199 mg/dL Calcium 9.1 8.5 - 10.3 mg/dL eGFR Collection Time: 12/30/18 4:33 AM Result Value Ref Range GFR 101 mL/min/1.73 m2 Lipid panel Collection Time: 12/30/18 4:33 AM Result Value Ref Range Cholesterol 151 30 - 199 mg/dL Triglycerides 135 <=149 mg/dL HDL 39 (L) >=40 mg/dL LDL, calculated 85 <=129 mg/dL Non-HDL Cholesterol 112 mg/dL Chol/HDL ratio 4 POCT glucose Collection Time: 12/30/18 8:11 AM Result Value Ref Range Glucose, POC, bld 135 (H) 71 - 98 mg/dL POCT glucose Collection Time: 12/30/18 11:48 AM Result Value Ref Range Glucose, POC, bld 173 (H) 71 - 98 mg/dL POCT glucose Collection Time: 12/30/18 5:31 PM Result Value Ref Range Glucose, POC, bld 119 (H) 71 - 98 mg/dL POCT glucose Collection Time: 12/30/18 10:01 PM Result Value Ref Range Glucose, POC, bld 118 (H) 71 - 98 mg/dL POCT glucose Collection Time: 12/31/18 2:37 AM Result Value Ref Range Glucose, POC, bld 145 70 - 199 mg/dL Ct Head Wo Contrast Result Date: 12/29/2018 Narrative: PROCEDURE: CT HEAD WO CONTRAST HISTORY: tia. Left arm numbness. Now resolving. COMPARISON: None. TECHNIQUE: Helical CT scan of the head obtained noncontrast. FINDINGS: No acute intracranial hemorrhage identified. No midline shift is noted. Brainstem cisterns are intact. Early volume loss/atrophy. Evidence of some very mild white matter microangiopathy changes. Cerebrovascular atherosclerosis. 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 Impression: 1. NO ACUTE INTRACRANIAL FINDING. 2. VOLUME LOSS/ATROPHY AND WHITE MATTER MICROANGIOPATHY CHANGES. 3. CEREBRAL VASCULAR ATHEROSCLEROSIS. Electronically signed by: Zaire Maria M.D Cta Neck W Wo Contrast Result Date: 12/30/2018 Narrative: CTA NECK W WO CONTRAST HISTORY: TIA. Bilateral carotid artery disease on carotid ultrasound today. TECHNIQUE: 100 mL Optiray 350 IV. Spiral axial scans from aortic arch to base of skull. Reformatted images rotated 360 degrees around longitudinal axes of right and left common-internal carotid arteries; VRT and MIP reconstructed images generated at an independent workstation; rotated 3 and 60 degrees around vertical axes. COMPARISON: Ultrasound carotids today FINDINGS: Extensive arteriosclerotic plaque is present at the carotid bifurcations bilaterally. 2 mm diameter at the right carotid bulb represents 60% diameter stenosis by NASCET criteria. 1.2 mm diameter in the left carotid bulb- proximal internal carotid artery represents 75% diameter stenosis by NASCET criteria. Left vertebral artery is a little larger than the right, but both appear widely patent. No aneurysm is seen. Some emphysema and fibrosis are seen in the lung apices bilaterally. Impression: 1. 60% right carotid bulb diameter stenosis by NASCET criteria. 2. 75% left carotid bulb proximal internal carotid artery diameter stenosis by NASCET criteria. 3. Bilaterally patent vertebral arteries, a little larger left than right. Electronically signed by: Mp No Jr., M.D. Xr Chest 1 Vw Portable Result Date: 12/29/2018 Narrative: XR CHEST 1 VIEW HISTORY: tia. COPD. TECHNIQUE: Portable AP view. COMPARISON: 04/17/2014.FINDINGS: Heart size is normal. Suggestion of some minimal infiltrate right lower lung field. Costophrenic angles are sharp. Midline sternotomy. Impression: SUGGESTION OF MINIMAL INFILTRATE RIGHT LOWER LUNG FIELD, POSSIBLE PNEUMONIA. Electronically signed by: Zaire Maria M.D Mri Brain Wo Contrast Result Date: 12/30/2018 Narrative: MRI BRAIN WO CONTRAST HISTORY: tia. Right upper extremity numbness. TECHNIQUE: Noncontrast imaging was performed using axial and sagittal FLAIR, axial T1, T2 and diffusion-weighted sequences. COMPARISON: CT 12/29/2018 FINDINGS: Mild cortical volume loss and nonspecific white matter changes are present. A small old right occipital infarction is present. There is no evidence of acute intracranial hemorrhage, mass or infarction. Diffusion-weighted signal is normal throughout the cortical structures. The ventricles are symmetric. Midline is normal. The extra-axial structures are unremarkable. Impression: 1. MILD AGE-RELATED CORTICAL VOLUME LOSS AND WHITE MATTER CHANGE. 2. SMALL OLD RIGHT OCCIPITAL INFARCTION. 3. NO EVIDENCE OF ACUTE INTRACRANIAL EVENT. Electronically signed by: Devon Alvarado M.D. Us Carotids Duplex Bilateral Result Date: 12/30/2018 Narrative: US CAROTIDS DUPLEX BILATERAL HISTORY: tia. TECHNIQUE: Color-flow Doppler examination andgrayscale examination. COMPARISON: None available. FINDINGS: Suboptimal examination due to White excursion of vessels with respiration, and shadowing of plaque. Plaque within the right common carotid artery, with measured stenosis proximal right common carotid artery of 41%. Measured stenosis rightcarotid bulb is 74%. Measured stenosis proximal right internal prior is 65%. Both the systolic and diastolic velocities are highly elevated, supporting a severe stenosis in this setting is 79% range,according to NASCET criteria. Moderate stenosis right external carotid artery, measuring stenosis of 48%. Mild plaque left common carotid artery, measured diameter stenosis mid left common carotid artery of 39%. Measured stenosis left carotid bulb is 59%. Flow velocities left internal carotid artery are not elevated. Antegrade vertebral flow bilaterally. Impression: 1. SUBOPTIMAL EXAMINATION DUE TO ANATOMIC FACTORS. 2. SEVERE STENOSIS RIGHT INTERNAL CAROTID ARTERY. MEASURED DIAMETER STENOSIS IS 65%. ELEVATED VELOCITY SUPPORTS A SEVERE STENOSIS IN ILQ79-24% RANGE. 3. MEASURED DIAMETER STENOSIS RIGHT CAROTID BULB OF 74%. 4. MODERATE STENOSES RIGHT COMMON CAROTID ARTERY AND RIGHT EXTRAFORAMINAL CAROTID ARTERY AND LEFT CAROTID BULB, MILD STENOSIS LEFT COMMON CAROTID ARTERY. 5. ANTEGRADE VERTEBRAL FLOW BILATERALLY. Electronically signed by: Zaire Maria M.D Transthoracic Echo (tte) W Bubble Study Result Date: 12/30/2018 Narrative: [address] [place] [address] Echocardiogram Report Patient Name: TRESSA MYERS M : [id number] Study Date: 12/30/2018 07:49:48 Gender: F Tech: [employer] Location: [place] [address] Ref.Provider: CHAITANYA LUIS Height(Cm): 165 BSA: 2.18 Weight(Kg): 103.4 Quality: Adequate Procedures: Echocardiographic Report: Transthoracic echocardiogram with 2D, M-Mode, and color Doppler examination with saline contrast study. Indications: Transient Ischemic Attack. Measurements: 2D/M Mode Doppler Measurement Value Normal Range Measurement Value Normal Range EF Teich MM 41.4 [ 55.0 - 70.0 ] percent KATH Vmax 1.89 [ 2.00 - 4.00 ] cm2 LVIDd MM 3.72 [ 3.90 - 5.30 ] cm AV Mean PG 3 [ 2 - 4 ] mmHg LVIDs MM 2.99 [2.30 - 3.90 ] cm AV Peak Samir 1.47 [ 1.00 - 1.70 ] m/s LVPWd MM 1.40 [ 0.60 - 1.00 ] cm AV VTI 29.51 cm IVSd MM 1.25 [ 0.60 - 0.90 ] cm LVOT Diam 1.82 [ 1.70 - 2.10 ] cm LA Dimension MM 5.09 [ 2.70 -3.80 ] cm LVOT Peak Samir 1.14 [ 0.70 - 1.10 ] m/s AoR Diam MM 2.77 [ 2.60 - 3.70 ] cm LVOT VTI 28.91[ 20.00 - 30.00 ] cm ACS MM 1.36 cm MV E Peak Samir 0.84 [ 0.60 - 1.30 ] m/s MV A Peak Samir 0.78 [ 1.00 - 1.20 ] m/s MV Mean PG 2 [ <= 5 ] mmHg MV PHT 94 [ 20 - 100 ] msec MVA 2.30 MV Decel Time 324[ 104 - 258 ] msec PV Peak Samir 1.04 [ 0.40 - 0.80 ] m/s TR Peak Samir 2.53 [ 1.00 - 2.80 ] m/s TR Peak PG 26 mmHg RVSP 36.00 [ 10.00 - 36.00 ] mmHg E' 0.07 E/E' 11.96 PA Pressure 26.00 [ 10.00 - 36.00 ] mmHg Findings: Atrial Septum: Normal atrial septum. Saline contrast study performed without evidence of right to left shunt. Left Ventricle: Normal left ventricular systolic function with no focal wall motion abnormalities. Normal left ventricular size. Normal left ventricular wall thickness. Ejection fraction is visually estimated at 60 %. Left Atrium: There is moderate enlargement of left atrium. Right Ventricle: Normal right ventricular size. Normal right ventricular systolic function. Right Atrium: There is moderate enlargement of right atrium. Aortic Valve: No evidence of hemodynamically significant aortic stenosis by Doppler. Aortic cusps appear mildly sclerotic. No aortic regurgitation. Mitral Valve: Mild mitral annular calcification. No mitral valve regurgitation is seen. There is no hemodynamically significant mitral stenosis by Doppler. Pulmonic Valve: Normal structure of the pulmonic valve. No evidence of pulmonic regurgitation. Tricuspid Valve: Right Ventricular Systolic Pressure could not be estimated due to inadequate visualization of TR jet. Pericardium: Normal pericardium with no significant pericardial effusion. Aorta: Normal aortic root. Sinus of Valsalva is normal. Aortic arch is normal. Descending aorta is normal. IVC: The IVC is not well visualized. Pulmonary Artery: Normal pulmonary artery size. Conclusions: Normal left ventricular systolic function with no [...] clear evidence for cardiac source of emboli. Electronically Signed By: Dr Gordy Quispe 2018-12-30 10:04:45 CDT ASSESSMENT/PLAN: Principal Problem: CVA (cerebral vascular accident) (CMS/HCC) Active Problems: Carotid atherosclerosis Abnormal CXR Essential hypertension Type 2 diabetes mellitus with circulatory disorder, without long-term current use of insulin (CMS/HCC) Acute cystitis without hematuria Paroxysmal atrial flutter (CMS/HCC) Coronary artery disease involving nondalton coronary artery of nondalton heart without angina pectoris History of coronary artery stent placement Hx of CABG Tobacco abuse 1. CVA: MRI negative but patient does have a slight ataxia of her RUE and LUE of unknown duration. Otherwise normal neuro exam. MRI, Echo, and carotid imaging already done and per HPI. Per protocol swallow eval but out of the window for permissive HTN. Great LDL. Check A1c. Continue ASA Neuro consult. Tele short term 2. Carotid atherosclerotic disease: continue ASA and Plavix. Dr. Lee to consult. 3. Possible PNA on portable CXR: Low clinical suspicion for PNA. PA and lateral in the am. 4. HTN: okay to resume HTN regimen 5. DM: SSI. 6. UTI: continue levaquin, follow up culture for sensitivities. 7. Paroxysmal aflutter: now in NSR 8. CAD with h/o stents and CABG: continue antiplatelets. 9. Tobacco abuse: encouraged cessation. dvt ppx: heparin sq Full Code ESTIMATED LENGTH OF STAY: two or more inpatient midnights All diagnoses present on admission unless otherwise noted. 85 minutes spent on admitting this patient. documented in this encounter Consult Notes * Catherine Jasmine NP - 01/01/2019 12:30 PM CDT CICU Consult Team: [facility] AM Reason for Consult: LICA stenosis Requesting Provider: Jesus Subjective Patient is a 63 y.o. female with chief complaint of LICA stenosis with stenting HPI: Ms Myers presented to the ED in [place] on 12/29 with transient numbness and inability to move her R arm and leg. She had transient blurred vision as well the day before. She was transferred to [facility] andDr. Lee was consulted for LICA stenosis. MRI showed a small old R occipital infarct and no acute event. CT scan showed 60% blockage and L 75% blockage of internal carotid artery. CT of head was negative. Significant history for CABG, HTN, previous CVA, paroxysmal Aflutter, smoker, cardiac stents, DM. Past Medical History: Diagnosis Date ??? Carotid atherosclerosis ??? Diabetes mellitus (CMS/HCC) ??? History of other diseases of the circulatory system, not elsewhere classified Coronary Artery Disease - Was having SOB outpatient. Had stress echo/EKG outpatient 05/07/13, 1.[address] segment depression noted inferiorly and [address] segment depression noted laterally; EF60-65%, hypokinesis of the distal septum, probably diastolic dysfunction. [facility] (05/07/13) (1) Ekucfrf33% narrowings from proximal to distal RCA (2) R large PDA with 50% near ostial narrowing, (3) * ??? Paroxysmal atrial flutter (CMS/HCC) ??? Personal history of other diseases of the circulatory system History of hypertension - (Added by TW Conv) ??? Personal history of other diseases of the digestive system History of esophageal reflux - (Added by TW Conv) ??? Personal history of other mental and behavioral disorders History of anxiety disorder - (Added by TW Conv) ??? Stroke (CMS/HCC) Past Surgical History: Procedure Laterality Date ??? CORONARY ARTERY BYPASS GRAFT ??? LA LIGATE FALLOPIAN TUBE Tubal Ligation - (Added by TW Conv) ??? LA PRQ TRLUML CORONARY STENT W/ANGIO ONE ART/BRNCH Cath Stent Placement - Xience TOM to LCX (04/2013) (Added by TW Conv) Allergies Allergen Reactions ??? Cefazolin Social History Tobacco Use ??? Smoking status: Light Tobacco Smoker Packs/day: 0.25 Types: Cigarettes ??? Smokeless tobacco: Never Used ??? Tobacco comment: history of 2ppd for 30yrs prior to cutting back. Substance Use Topics ??? Alcohol use: Yes Frequency: Never Comment: occasionally. Family History Problem Relation Age of Onset ??? Coronary artery disease Mother Family history of coronary artery disease - Premature CAD (Added by TW Conv) ??? Heart disease Mother ??? Coronary artery disease Other Family history of coronary artery disease - Premature CAD (Added by TW Conv) HOME MEDICATIONS : aspirin 81 mg enteric coated tablet clopidogrel (PLAVIX) 75 mg tablet levothyroxine (SYNTHROID, LEVOTHROID) 75 mcg tablet losartan (COZAAR) 50 mg tablet metFORMIN (GLUCOPHAGE) 1,000 mg tablet metoprolol (LOPRESSOR) 25 mg tablet PARoxetine (PAXIL) 20 mg tablet simvastatin (ZOCOR) 40 mg tablet Medications: Medications Prior to Admission Medication Sig Dispense Refill Last Dose ??? aspirin 81 mg enteric coated tablet daily 12/28/2018 at Unknown time ??? clopidogrel (PLAVIX) 75 mg tablet clopidogrel 75 mg tablet cardio 12/28/2018 at Unknown time ??? levothyroxine (SYNTHROID, LEVOTHROID) 75 mcg tablet Take 75 mcg by mouth lock installer before breakfast 3 12/28/2018 at Unknown time ??? losartan (COZAAR) 50 mg tablet losartan 50 mg tablet TAKE 1 TABLET BY MOUTH ONCE DAILY 12/28/2018 at Unknown time ??? metFORMIN (GLUCOPHAGE) 1,000 mg tablet 1,000 mg 2 (two) times a day with meals 3 12/29/2018 at Unknown time ??? metoprolol (LOPRESSOR) 25 mg tablet metoprolol tartrate 25 mg tablet TAKE 1 TABLET BY MOUTH TWICE DAILY 12/29/2018 at Unknown time ??? PARoxetine (PAXIL) 20 mg tablet Take 20 mg by mouth 2 (two) times a day 12/28/2018 at Unknown time ??? simvastatin (ZOCOR) 40 mg tablet daily 12/28/2018 at Unknown time Scheduled Medications Medication Dose Route Frequency ??? aspirin enteric coated tablet 81 mg 81 mg oral Daily ??? atorvastatin (LIPITOR) tablet 20 mg 20 mg oral Daily ??? ciprofloxacin (CIPRO) tablet 500 mg 500 mg oral BID ??? clopidogrel (PLAVIX) tablet 75 mg 75 mg oral Daily ??? heparin 5,000 unit/mL injection 5,000 Units 5,000 Units subcutaneous Q8H SARAH ??? insulin lispro (HumaLOG) injection 1-2 Units 1-2 Units subcutaneous Q6H SARAH ??? levothyroxine (SYNTHROID, LEVOTHROID) tablet 75 mcg 75 mcg oral Daily - 0600 ??? losartan (COZAAR) tablet 50 mg 50 mg oral Daily ??? metoprolol (LOPRESSOR) tablet 25 mg 25 mg oral BID ??? PARoxetine (PAXIL) tablet 20 mg 20 mg oral Daily Continuous Medications: Current Facility-Administered Medications Medication Dose Route Frequency Last Dose ??? sodium chloride 0.9% Continuous PRN 75 mL/hr at 01/01/19 1001 PRN Medications: ??? acetaminophen, 650 mg ??? dextrose, 15 g OR dextrose, 250 mL ??? glucagon, 1 mg ??? heparin, , 8,500 Units at 01/01/19 1025 ??? heparin in 0.9% sodium chloride, , 500 mL at 01/01/19 1007 ??? ipratropium-albuterol, 3 mL ??? lidocaine, , 10 mL at 01/01/19 1015 ??? ondansetron ODT, 4 mg OR ondansetron, 4 mg ??? sodium chloride 0.9%, , Last Rate: 75 mL/hr at 01/01/19 1001, 75 mL/hr at 01/01/19 1001 Review of Systems: Review of Systems Constitutional: negative for fatigue. Negative for chills and fever. HENT: Negative for sinus pressure and sore throat. Eyes: Negative for pain and discharge. Respiratory: Negative for cough, chest tightness, shortness of breath and stridor. Cardiovascular: Negative for chest pain, palpitations and leg swelling. Gastrointestinal: negative for diarrhea. Negative for abdominal distention, abdominal pain and nausea. Endocrine: Negative for cold intolerance and heat intolerance. Genitourinary: Negative for hematuria. Musculoskeletal: Negative for joint swelling. Skin: Negative for color change and rash. Allergic/Immunologic: Negative for immunocompromised state. Neurological: Negative for dizziness, syncope and speech difficulty. Hematological: Negative for adenopathy. Psychiatric/Behavioral: Negative for agitation and confusion. Objective Vitals: Arrival Vitals [12/31/18 0150] Temp 36.6 ??C (97.9 ??F) Pulse 67 Resp 20 BP 148/94 SpO2 92 % Temp src Oral Heart Rate Source Patient Position Lying BP Location Right arm FiO2 (%) 24hr Min/Max: Temp Min: 36.6 ??C (97.9 ??F) Max: 36.9 ??C (98.4 ??F) Pulse Min: 61 Max: 95 BP Min: 109/85 Max: 158/70 Resp Min: 16 Max: 20 SpO2 Min: 91 % Max: 99 % Current Vitals: BP 113/86 (BP Location: Left arm, Patient Position: Sitting) Pulse 92 Temp 36.7 ??C (98.1 ??F) (Oral) Resp 18 Ht 165.1 cm (5' 5 ) Wt 102.5 kg (225 lb 15.5 oz) SpO2 91% BMI 37.60 kg/m?? Intake/Output: I/O last 2 completed shifts: In: 600 [P.O.:600] Out: 200 [Urine:200] No intake/output data recorded. LDA: Vent settings for last 24 hours: Hemodynamic parameters for last 24 hours: Physical Exam: General appearance:??WD/WN, alert, lying in bed HEENT: Normocephalic, without obvious abnormality, atraumatic, PERRLA Neck: supple, trachea midline Lungs: clear??to auscultation bilaterally, symmetrical chest wall expansion Heart:??SR, no murmur, click, rub or gallop Abdomen:??soft, non-tender; bowel sounds normal; no masses, ??no organomegaly : no magaña, no urine at present Extremities:??extremities normal, warm and well-perfused Pulses:??radial, DP, PT 2+ and symmetric Skin:??Skin color, texture, turgor normal. No rashes or lesions, R groin puncture site with small amount of bloody drainage to [id number] Neurologic:??A&O x 4 cooperative Lab/Radiology/Diagnostic Review: Recent Results (from the past 24 hour(s)) POCT glucose Collection Time: 12/31/18 12:25 PM Result Value Ref Range Glucose, POC, bld 99 70 - 199 mg/dL Type and screen Collection Time: 12/31/18 1:05 PM Result Value Ref Range Twyla, indirect Negative ABO Rh O Positive POCT glucose Collection Time: 12/31/18 5:21 PM Result Value Ref Range Glucose, POC, bld 109 70 - 199 mg/dL POCT glucose Collection Time: 12/31/18 8:48 PM Result Value Ref Range Glucose, POC, bld 112 70 - 199 mg/dL POCT glucose Collection Time: 01/01/19 1:07 AM Result Value Ref Range Glucose, POC, bld 122 70 - 199 mg/dL POCT glucose Collection Time: 01/01/19 2:29 AM Result Value Ref Range Glucose, POC, bld 105 70 - 199 mg/dL POCT glucose Collection Time: 01/01/19 5:58 AM Result Value Ref Range Glucose, POC, bld 130 70 - 199 mg/dL CBC with auto differential Collection Time: 01/01/19 6:15 AM Result Value Ref Range WBC 7.2 3.8 - 9.9 K/cumm Hgb 16.6 (H) 11.9 - 15.5 g/dL Hct 51.8 (H) 35.6 - 45.5 % Plt 306 150 - 400 K/cumm MPV 10.2 9.1 - 12.3 fL RBC 5.29 (H) 3.90 - 5.20 M/cumm MCV 97.9 (H) 81.3 - 96.4 fL MCH 31.4 27.1 - 33.3 pg MCHC 32.0 (L) 32.3 - 35.7 g/dL RDW CV 12.1 11.1 - 14.9 % RDW SD 43.6 35.7 - 48.1 fL NRBC Abs 0.00 0.00 - 0.01 K/cumm Basic metabolic panel Collection Time: 01/01/19 6:15 AM Result Value Ref Range Sodium 139 135 - 145 mmol/L Potassium, pl 4.8 3.3 - 4.9 mmol/L Chloride 99 97 - 110 mmol/L CO2 27 22 - 32 mmol/L Anion Gap 13 2 - 15 mmol/L BUN 17 8 - 25 mg/dL Creatinine 0.59 (L) 0.60 - 1.10 mg/dL Glucose 127 70 - 199 mg/dL Calcium 9.8 8.5 - 10.3 mg/dL Magnesium Collection Time: 01/01/19 6:15 AM Result Value Ref Range Magnesium 1.9 1.4 - 2.5 mg/dL Differential, auto Collection Time: 01/01/19 6:15 AM Result Value Ref Range Neutrophil absolute 3.6 1.7 - 6.5 K/cumm Immature granulocyte absolute 0.0 0.0 - 0.1 K/cumm Lymphocytes absolute 2.6 0.8 - 3.3 K/cumm Monocyte absolute 0.7 0.2 - 0.8 K/cumm Eosinophils absolute 0.2 0.0 - 0.5 K/cumm Basophils, abs 0.1 0.0 - 0.1 K/cumm Neutrophils 49.8 % Immature granulocytes 0.3 % Lymphocytes 36.1 % Monocytes 9.3 % Eosinophils 3.5 % Basophils 1.0 % eGFR Collection Time: 01/01/19 6:15 AM Result Value Ref Range GFR 98 mL/min/1.73 m2 Xr Chest Pa Lateral 2 Views Result Date: 12/31/2018 NO ACUTE PULMONARY CHANGE. Electronically signed by: Fernando Moore M.D. Cta Neck W Wo Contrast Result Date: 12/30/2018 1. 60% right carotid bulb diameter stenosis by NASCET criteria. 2. 75% left carotid bulb proximal internal carotid artery diameter stenosis by NASCET criteria. 3. Bilaterally patent vertebral arteries, a little larger left than right. Electronically signed by: Mp No Jr., M.D. Plan: Neuro: # Acute pain -tylenol #TIA 2/2 #LICA stenosis with stenting -12/29 CT negative -12/30 MRI showed a small old R occipital infarct and no acute event. pt has no residual from old infarct and states she has had no previous CVA event -12/30 CTA neck scan showed 60% blockage and L 75% blockage of internal carotid artery. -stent to LICA today -asa, lipitor -Dr. Lee following -neurology following -blood coordinator following -frequent neuro checks CV: #S/p stent to circ, #s/p CABG x1 to LAD -cont plavix, asa, lipitor #HTN -cont cozaar, metoprolol -BP goal >90 and <150 -add nicardipine/dopamine PRN BP needs #paroxysmal a-flutter Currently SR in 70's Cont metoprolol Asa, plavix, heparin SQ Pulmonary: CXR: no new CXR for today 2L NC-titrate O2 for sats >92% #tobacco abuse Encourage smoking cessation GI: Diet: clear liquid PUD PPx: pepcid Bowel regimen: NA-advance if needed Endo: #hyperglycemia 2/2 DM 2 and critical illness Glycemic control - LD SSI NPO HGBA1C 5.5 Serial accuchecks BS goal 120-180 Avoid hypoglycemia #hypothyroidism -cont home dose of synthroid Renal BUN/Cr 17/0.59 IVF NS @75cc/hr for current bag Labs in am #Electrolyte abnormality -Replace PRN Heme: Hgb/Hct: 16.6/51.8 Plts: 306 Transfuse for HGB less than 7 or active bleeding CBC daily DVT PPX: SCD's, heparin SQ ID: #E-coli UTI WBC: 7.2 Cont cipro x 5 days (D2) Cultures: 12/29 UC +E. Coli ICU standards of care: Restraints: NA Physical therapy/Activity: BR, hold for now. Flat x 4-6 hours Access: PIV Goals of care: Full code Critical Care Time: I have spent 90 minutes in full attendance with this critically ill patient making frequent reassessments and decisions regarding this patient's complex medical care. Critical care time was exclusive of separately billable procedures, treating other patients and teaching time. Community AM Critical care was necessary to treat or prevent imminent or life-threatening deterioration of the following conditions:TIA, LICA with stenting, paroxysmal a- flutter, HTN, tobacco use, E coli UTI. Assessment and plan has been reviewed with attending, Dr. Priscilla Jasmine MSN, PHOTOGRAPHY TEACHER, STEELWORKER-BC Cosigned by Vishal Wells MD at 01/01/2019 4:06 PM CDT Associated attestation - Vishal Wells MD - 01/01/2019 4:06 PM CDT I have reviewed and confirmed the history, physical exam, laboratory and radiographic data with theadvanced practiotioner as documented in the note. I have discussed the assessment and plan with my team and as necessary with the relevant corporate learning consultant staffs, RNs RTs taking care of this patient. Vishal Wells MD, FACP Critical Care Medicine * Zan Lee MD - 12/31/2018 12:38 PM CDTAssociated Order(s): IP CONSULT TO VASCULAR SURGERY Neurosurgery Neurosurgery Consult Reason for Consult: carotid stenosis Requesting Provider: No ref. provider found Subjective Patient is a 63 y.o. female with chief complaint of R TIA. HPI: Sunday had inability to use R arm for 15-20min. No pain, no speech problems, no reported droop, slight leg incoordination; all resolved. Past Medical History: Diagnosis Date ??? Carotid atherosclerosis ??? Diabetes mellitus (CMS/HCC) ??? History of other diseases of the circulatory system, not elsewhere classified Coronary Artery Disease - Was having SOB outpatient. Had stress echo/EKG outpatient 05/07/13, 1.[address] segment depression noted inferiorly and [address] segment depression noted laterally; EF60-65%, hypokinesis of the distal septum, probably diastolic dysfunction. [facility] (05/07/13) (1) Diffuse 25% narrowings from proximal to distal RCA (2) R large PDA with 50% near ostial narrowing, (3) * ??? Paroxysmal atrial flutter (CMS/HCC) ??? Personal history of other diseases of the circulatory system History of hypertension - (Added by TW Conv) ??? Personal history of other diseases of the digestive system History of esophageal reflux - (Added by TW Conv) ??? Personal history of other mental and behavioral disorders History of anxiety disorder - (Added by TW Conv) ??? Stroke (CMS/HCC) Past Surgical History: Procedure Laterality Date ??? CORONARY ARTERY BYPASS GRAFT ??? LA LIGATE FALLOPIAN TUBE Tubal Ligation - (Added by TW Conv) ??? LA PRQ TRLUML CORONARY STENT W/ANGIO ONE ART/BRNCH Cath Stent Placement - Xience TOM to LCX (04/2013) (Added by TW Conv) Medications Prior to Admission Medication Sig Dispense Refill Last Dose ??? aspirin 81 mg enteric coated tablet daily 12/28/2018 at Unknown time ??? clopidogrel (PLAVIX) 75 mg tablet clopidogrel 75 mg tablet cardio 12/28/2018 at Unknown time ??? levothyroxine (SYNTHROID, LEVOTHROID) 75 mcg tablet Take 75 mcg by mouth lock installer before breakfast 3 12/28/2018 at Unknown time ??? losartan (COZAAR) 50 mg tablet losartan 50 mg tablet TAKE 1 TABLET BY MOUTH ONCE DAILY 12/28/2018 at Unknown time ??? metFORMIN (GLUCOPHAGE) 1,000 mg tablet 1,000 mg 2 (two) times a day with meals 3 12/29/2018 at Unknown time ??? metoprolol (LOPRESSOR) 25 mg tablet metoprolol tartrate 25 mg tablet TAKE 1 TABLET BY MOUTH TWICE DAILY 12/29/2018 at Unknown time ??? PARoxetine (PAXIL) 20 mg tablet Take 20 mg by mouth 2 (two) times a day 12/28/2018 at Unknown time ??? simvastatin (ZOCOR) 40 mg tablet daily 12/28/2018 at Unknown time Allergies Allergen Reactions ??? Cefazolin Social History Socioeconomic History ??? Marital status: Spouse name: Not on file ??? Number of children: Not on file ??? Years of education: Not on file ??? Highest education level: Not on file Tobacco Use ??? Smoking status: Light Tobacco Smoker Packs/day: 0.25 Types: Cigarettes ??? Smokeless tobacco: Never Used ??? Tobacco comment: history of 2ppd for 30yrs prior to cutting back. Substance and Sexual Activity ??? Alcohol use: Yes Frequency: Never Comment: occasionally. ??? Drug use: Yes Types: Marijuana Family History Problem Relation Age of Onset ??? Coronary artery disease Mother Family history of coronary artery disease - Premature CAD (Added by TW Conv) ??? Heart disease Mother ??? Coronary artery disease Other Family history of coronary artery disease - Premature CAD (Added by TW Conv) Review of Systems: Review of systems per HPI and otherwise all systems are negative Objective Vitals: 24hr Min/Max: Temp Min: 36.1 ??C (96.9 ??F) Max: 36.7 ??C (98 ??F) Pulse Min: 61 Max: 88 BP Min: 128/72 Max: 179/85 Resp Min: 16 Max: 20 SpO2 Min: 90 % Max: 95 % Most Recent: Vitals: 12/31/18 1008 BP: 130/74 Pulse: 72 Resp: Temp: SpO2: No intake/output data recorded. No intake/output data recorded. Physical Exam: General appearance: appears stated age, cooperative and no distress Head: Normocephalic, without obvious abnormality, atraumatic Neck: no adenopathy and supple, symmetrical, trachea midline Back: no skin lesions, erythema, or scars, no tenderness to percussion or palpation Extremities: extremities normal, warm and well-perfused NEUROLOGIC: Mental status: Alert and oriented X 3 Speech: Fluent handkerchief cutter, expression Cranial nerves: 2-12 grossly intact Sensory: grossly intact x 4 extremities Motor: 5/5 strength all groups x 4 extremities Reflexes: symmetric, no abnormal reflexes Coordination: grossly normal Gait: not tested Lab/Radiology/Diagnostic Review: Imaging review: I have independently examined the MRI, CTA image(s). My findings are no CVA; B highgrade ICA stenosis Other diagnostic test(s) review: I have reviewed the result(s) Principal Problem: CVA (cerebral vascular accident) (CMS/HCC) Active Problems: Carotid atherosclerosis Abnormal CXR Essential hypertension Type 2 diabetes mellitus with circulatory disorder, without long-term current use of insulin (CMS/HCC) Acute cystitis without hematuria Paroxysmal atrial flutter (CMS/HCC) Coronary artery disease involving nondalton coronary artery of nondalton heart without angina pectoris History of coronary artery stent placement Hx of CABG Tobacco abuse Assessment /Plan Symptomatic high grade L ICA stenosis, with contralateral asymptomatic stenosis. Favor stent due toattenuated collateral from contralateral stenosis. Scheduled for tomorrow [phone]. [phone] documented in this encounter Nursing Notes * Marilia Boone, JUSTICE - 01/02/2019 8:34 AM CDT Discharge instructions given to patient, all iv dc. Patient has no further questions and will follow up with Dr Lee in one month and contact her primary doctor. Awaiting family arrival and will transfer her to car. Discharged to home * Anderson Landry RN - 01/01/2019 7:23 AM CDT [facility] - Cardiac Technology Recruiter Nursing Plan of Care Name: Tressa Myers : 1955 Age: 63 y.o. Gender: female Room/Bed: [facility] [address] Admit: 12/31/2018 1:59 AM Nursing Diagnosis: Anxiety related to fear of unknown/outcome Goal: 1 Minimize anxiety /fears - MET [x] Reinforce any teaching and answer all questions to the fullest [x] Proved conscious sedation Nursing Diagnosis: Potential for delay of procedure due to inadequate preparation Goal: 1 Patient remains NPO - MET [] Physician notified, test canceled [] Physician notified, proceeds with test Goal: 2 Pre-Procedure tests completed - MET [x] Follow policy and procedure for pre-testing requirements [] Delay procedure and complete testing [] Notify Physician, procedure canceled [] Notify Physician, test waved, procedure done Goal: 3 Patient meets criteria for procedure - MET [x] Admission assessment performed [] Physician notified of abnormal labs, test canceled [] Physician notified of abnormal labs, proceeds with tests [] History and physical not present, physician dictates H & P [x] Informed consent for procedure obtained Nursing Diagnosis: Potential for complication Goal: 1 Minimize complication - MET [] Hematoma increase compression time and apply pressure dressing [] Dye reaction, give steroids and antihistamines as prescribed [] Hypotension give IVF's and medications as directed [] Follow conscious sedation guidelines for reversal Goal: 2 Minimize infection - MET [] Follow policy and procedure for re-prep when contamination occurs [] Sterile field interruption: rescrub, gown, glove as per policy and procedure [] Sterile technique not maintained Nursing Diagnosis: Potential for delay in discharge Goal: 1 Patient meets criteria for discharge - MET [x] Reinforce any teaching and answer all questions to the fullest [] Hypotension not responsive to therapy, needs admission [] Hypotension responsive to therapy, needs additional recovery [] Patient unstable, severe disease, needs admission or change in bed status [] Patient needs admission due to intervention Nursing Diagnosis: Knowledge deficit of post-procedure education Goal: 1 Patient verbalizes understanding of post-procedure education - MET [x] Review discharge instructions with patient and family [x] Instruct patient on care of puncture site [x] Review prescriptions and medications [x] Explain importance and purpose of activity restrictions documented in this encounter Miscellaneous Notes * Plan of Care - Marilia Boone RN - 01/02/2019 7:53 AM CDT Problem: Health Behavior: Goal: Understanding of discharge needs will improve Outcome: Adequate for Discharge Problem: Activity: Goal: Capacity to carry out activities will improve Outcome: Adequate for Discharge Goal: Mobility will improve Outcome: Adequate for Discharge Goal: Range of joint motion will improve Outcome: Adequate for Discharge Problem: Lack of Knowledge: Goal: Verbalization of understanding the information provided will improve Outcome: Adequate for Discharge Goal: Understanding of ways to prevent future skin breakdown will improve Outcome: Adequate for Discharge Goal: Ability to identify appropriate dietary choices will improve Outcome: Adequate for Discharge Goal: Understanding of discharge needs will improve Outcome: Adequate for Discharge Problem: Nutritional: Goal: Dietary intake will improve Outcome: Adequate for Discharge Goal: Ability to maintain a balanced intake and output will improve Outcome: Adequate for Discharge Problem: Skin Integrity: Goal: Risk for impaired skin integrity will decrease Outcome: Adequate for Discharge Goal: Ability to demonstrate warm and dry skin will improve Outcome: Adequate for Discharge Goal: Circulation will improve to fullest extent possible Outcome: Adequate for Discharge Goal: Will remain free from wound infection Outcome: Adequate for Discharge Problem: Bowel/Gastric: Goal: Gastrointestinal status for postoperative course will improve Outcome: Adequate for Discharge Problem: Cardiac: Goal: Hemodynamic stability will improve Outcome: Adequate for Discharge Problem: Physical Regulation: Goal: Signs of adequate cerebral perfusion will be maintained Outcome: Adequate for Discharge Goal: Postoperative complications will be avoided or minimized Outcome: Adequate for Discharge Problem: Respiratory: Goal: Will maintain a patent airway Outcome: Adequate for Discharge Problem: Sensory: Goal: Pain level will decrease Outcome: Adequate for Discharge Goals: Clinical Goals for the Shift: comfort, normal vitals, no s/s of bleeding from rt fem site, flat bedrest x 2 hrs after hemostasis, tolerate activity after bedrest, no change in neuro status. Summary: Dr jesus solares for dc awaiting orders from hospitist. Patient up in chair and eating breakfast * Plan of Care - Deniz Croft RN - 01/02/2019 1:20 AM CDT Goals: Return to normal activities. Understand discharge needs. Dietary intake will improve.risk for impaired skin integrity will decrease. Summary: Pt. Is getting in and out of bed easily just w nurse near to manage wires.appitite improved denies nausea.Right groin intact with no signs of hematoma, skin intact. Verbalized understanding of discharge needs with further edjucation prior to discharge. * Plan of Care - Jeaneth Rapp RN - 01/01/2019 2:21 PM CDT Problem: Health Behavior: Goal: Understanding of discharge needs will improve Outcome: Progressing Problem: Activity: Goal: Capacity to carry out activities will improve Outcome: Progressing Goal: Mobility will improve Outcome: Progressing Goal: Range of joint motion will improve Outcome: Progressing Problem: Lack of Knowledge: Goal: Verbalization of understanding the information provided will improve Outcome: Progressing Goal: Understanding of ways to prevent future skin breakdown will improve Outcome: Progressing Goal: Ability to identify appropriate dietary choices will improve Outcome: Progressing Goal: Understanding of discharge needs will improve Outcome: Progressing Problem: Nutritional: Goal: Dietary intake will improve Outcome: Progressing Goal: Ability to maintain a balanced intake and output will improve Outcome: Progressing Problem: Skin Integrity: Goal: Risk for impaired skin integrity will decrease Outcome: Progressing Goal: Ability to demonstrate warm and dry skin will improve Outcome: Progressing Goal: Circulation will improve to fullest extent possible Outcome: Progressing Goal: Will remain free from wound infection Outcome: Progressing Problem: Bowel/Gastric: Goal: Gastrointestinal status for postoperative course will improve Outcome: Progressing Problem: Cardiac: Goal: Hemodynamic stability will improve Outcome: Progressing Problem: Physical Regulation: Goal: Signs of adequate cerebral perfusion will be maintained Outcome: Progressing Goal: Postoperative complications will be avoided or minimized Outcome: Progressing Problem: Respiratory: Goal: Will maintain a patent airway Outcome: Progressing Problem: Sensory: Goal: Pain level will decrease Outcome: Progressing Goals: Clinical Goals for the Shift: comfort, normal vitals, no s/s of bleeding from rt fem site, flat bedrest x 2 hrs after hemostasis, tolerate activity after bedrest, no change in neuro status. Summary: * Plan of Care - La Jacobs RN - 01/01/2019 1:53 PM CDT In to speak with patient post surgery, a/o x 4, states plan is to return home on discharge, daughter to pick her up, Son Cristhian Barreto, designated contact lens lathe operator and for goals of care, states able to afford medication, SS did contact financial resources prior to surgery for possible medicaid application, called again today and left message to return call, patient states has no needs ondischarge at this time, ambulatory, drives, uses no DME at home. * Op Note - Zan Lee MD - 01/01/2019 9:35 AM CDT ANGIOGRAPHY REPORT/OPERATIVE REPORT Patient: Tressa Myers DATE OF SURGERY: 01/01/2019 SURGEON: Zan Lee MD SCALE ADJUSTER: RT ANESTHESIA: None ANESTHESIOLOGIST: No anesthesia staff entered. Complications: None Estimated Blood Loss: No blood loss documented. PREOPERATIVE DIAGNOSIS: Symptomatic high grade left carotid stenosis POSTOPERATIVE DIAGNOSIS: same PROCEDURE: GLASS MOULD CLEANER STENT, left CERVICAL CAROTID ARTERY W EMBOLIC PROTECTION CPT codes 47705-C [id number] INDICATION FOR PROCEDURE: R arm TIA with noninvasive evidence B high grade calcific stenosis. The risks, benefits, and alternatives were discussed in detail, the risks including but not limitedto bleeding, infection, paralysis, coma, brain damage, , aphasia, groin or retroperitoneal complications, stroke, need for further procedures; the patient understood and wished to proceed. PROCEDURE IN DETAIL: Patient was brought to the angiography suite, positioned supine, and groins were aseptically shaved, prepped and draped in the usual sterile fashion. The right common femoral region was locally anesthetized and incised. A micropuncture needle was used to gain access to the common femoral artery and then in modified Seldinger technique over a Bentson wire a 6-Cymraes sheath was placed on continuous heparinized flush. Patient was heparinized to ACT >230 sec. Over the Short wire, a 5-Cymraes pigtail was advanced to the arch and arch aortography was performed in the [place] projection. A 5-Cymraes angled tapered glide catheter was used in conjunction with a 0.035 Glidewire to select bilateral common carotid arteries and left vertebral artery after which angiography was performed over the neck and head in multiple projections. From left common carotid, exchange was performed over SuperCore wire for 6F shuttle which was placed on flush in distal CCA. Lesion was crossed under roadmapping guidance with 6.5mm Accunet filter which was deployed in distal cervical ICA easily. 10x40 Acculink stent was prepared and advanced in RX fashion over the Accunet into position using roadmapping, and deployed in fair position bridging the lesion. Follow up angiography revealed some residual stenosis. Stent deployment apparatus was removed in RX fashion. Post-dilatation was performed using Viatrac 6x20 balloon advanced into stent in RX fashion over Accunet. Good resolution was noted. Post procedure cerebral angiography revealed no change compared to preop, no branch occlusions, andcarotid angiography revealed good contour of the proximal ICA, minimal residual stenosis. Accunet was recaptured without incident and withdrawn. The catheter was withdrawn. The films were studied. The sheath was pulled and 6F angioseal was usedto achieve hemostasis. The patient was awakened, and brought to the recovery room in stable condition having tolerated the procedure well. RADIOGRAPHIC SUPERVISION INTERPRETATION 1. Aortic arch. This is a type 1 arch. There is minimal tortuosity and modest atheromatous disease; the vertebrals are co-dominant; left arising directly from arch. 2. Left common carotid, cervical: The bifurcation is at C3-4. There is moderate but highly calcificatheromatous disease, high grade distal CCA/proximal ICA stenosis. Visualized branches of the external carotid are within normal limits. 3. Left common carotid, cerebral: These injections opacify the ipsilateral middle and anterior cerebral arteries. Transit time and venous phase are unremarkable. There is no significant intracranial atheromatous disease nor stenosis. No vascular lesions are noted. 4. Right common carotid, cervical: The bifurcation is at C3. There is Moderate densely calcific atheromatous disease, very high grade distal CCA/proximal ICA stenosis. Visualized branches of the external carotid are within normal limits. 5. Right common carotid, cerebral: These injections opacify the ipsilateral middle and anterior cerebral arteries. Transit time is retarded due to proximal stenosis; venous phase is unremarkable. There is no significant intracranial atheromatous disease nor stenosis. No vascular lesions are noted. 6. Left vertebral, cranial: Cervical course: unencumbered. Cranially, these injections opacify the left vertebrobasilar junction. PICA is large, AICA are not well visualized, SCA are symmetric, INSOLE AND OUTSOLE PREPARER are symmetric. There is abundant right cerebral collateral via retrograde flow up a large right pcomm. Otherwise, transit time and venous phase are unremarkable. No vascular lesions are noted. IMPLANTS: Implant Name Type Inv. Item Serial No. Drug Enforcement Administration Agent Lot No. LRB No. Used [employer] [id number] ACCULINK OD10 MM L40 MM L132 CM SELF EXPANDABLE; RAPID EXCHANGE; - [id number] - [id number] Stent [employer] [id number] Acculink Od10 Mm L40 Mm L132 Cm Self Expandable;Rapid Exchange; [id number] [employer] Left 1 [employer]IG [employer] [id number] ANGIO-SEAL VIP BONDEK-PLUS 6FR .035IN 70CM HEMOSTATIC LATEX FREE -[id number] [employer] [id number] Angio-seal Vip [place]-plus 6fr .035in 70cm Hemostatic Latex Free [employer] [id number] Left 1 Specimens: No specimens collected during this procedure. Condition on Discharge from the operating room was stable Zan Lee MD 01/01/19 11:45 AM * Registered Dietician Pre-admission Screen - Janeen Villalobos - 01/01/2019 8:19 AM CDT Referral f/u. Pt lives in [place], and is [place] [facility] pending, which means that this pt isout of network with [facility]. If pt requires acute rehab, pt will have to be transferred out to an in network rehab facility, Will inform SS on the case. * Plan of Care - Tonja Faria RN - 01/01/2019 4:15 AM CDT Problem: Health Behavior: Goal: Understanding of discharge needs will improve Outcome: Progressing Intervention: Discuss information regarding discharge instructions Intervention: Identify discharge barriers Problem: Activity: Goal: Capacity to carry out activities will improve Outcome: Progressing Intervention: Implement activity progression plan Goal: Mobility will improve Outcome: Progressing Intervention: Encourage mobilization to extent of ability Intervention: Provide assistance with mobility Problem: Lack of Knowledge: Goal: Verbalization of understanding the information provided will improve Outcome: Progressing Intervention: Instruct on daily stroke education Description - Activation of EMS (Call 911) - Follow-up after Discharge - Medication Compliance - Warning Signs and Symptoms of Stroke Intervention: Instruct on stroke personal risk factors Description - Age - Race - Family History - Previous CVA/TIA - Hypercoagulabitlity disorders Intervention: Discuss information regarding treatments and procedures Description - Intro to Stroke - Fall Precautions - Aspiration Precautions - Bleeding Precautions - Adaptive Equipment - Medical Equipment - Oxygen - Magnetic Resonance Imaging - Computerized Tomography - 12-Lead EKG - Carotid Ultrasound - Echocardiogram - Electroencephalogram - Cerebral Angiography - Positron Emission tomography - Lumbar Puncture - Surgery/Other Procedures Intervention: Instruct on stroke modifiable risk factors Description - Carotid Artery Disease - High Blood Pressure - Atrial Fibrillation - Diabetes - Heart Disease - Smoking - Alcohol Use - Physical Inactivity - Obesity Goals: Clinical Goals for the Shift: Continue neuro checks overnight. Activity as tolerated. Prepare for surgery in AM Summary: Pt strong in neuro checks. A/o x 4. One surgical shower completed. * Registered Dietician Pre-admission Screen - Janeen Villalobos - 12/31/2018 4:36 PM CDT Referral received. Therapy evals are pending. Will complete CMR assessment and discuss case with medical delivery technician once evals are completed. * Plan of Care - Lashell Duarte RN - 12/31/2018 3:27 PM CDT Goals: Clinical Goals for the Shift: continue monitor neuro checks Summary: Problem: Health Behavior: Goal: Understanding of discharge needs will improve Outcome: Progressing Problem: Activity: Goal: Capacity to carry out activities will improve Outcome: Progressing Problem: Activity: Goal: Mobility will improve Outcome: Progressing Problem: Activity: Goal: Range of joint motion will improve Outcome: Progressing Problem: Lack of Knowledge: Goal: Verbalization of understanding the information provided will improve Outcome: Progressing * Plan of Care - Teto Jacobs MSW - 12/31/2018 11:23 AM CDT CM/SW Assessment Last Documented CM/SW Assessment (most recent) SW/CM Admission Assessment - 12/31/18 1118 Referral Data Referral Source Self referral Referral Reason Discharge Planning County Information County of Residence [place], [place] Patient Information Primary Caregiver Self Support System Children Support system contact info (name, phone, availablity) Cristhian Barreto Health Care Agent Legal Information Have you reviewed your Advance Directive and is it valid for this stay? No Advance Directive Patient does not have advance directive;Patient refused information Prior Level of Functioning Durable Medical Equipment None Living Arrangement House;Lives alone Behavior Oriented Income Information Income Source SSD/SSI Income/Expense Information Income meets expenses Referral To Financial Resources Medicaid HEEL WASHER STRINGING MACHINE OPERATOR contacted Financial Resources Department HEEL WASHER STRINGING MACHINE OPERATOR contacted Financial Resources Department Potential Discharge Needs Discharge Potential Pt goal is to return home at [place]. Rehab Potential PT/OT have not been ordered for the pt. Anticipated discharge level of care Return Home Discharge Planning Type of Residence: Private residence Living Arrangements: Alone Support Systems: Children Assistance Needed: none Home Care Services: No Patient expects to be discharged to:: Private residence Does the patient need discharge transport arranged?: No HEEL SPLITTER completed. SIERRA Walsh Candy Rolling Machine Operator Case Management, 10th floor 12/31/2018 11:23 AM * Registered Dietician Pre-admission Screen - Dennis Patel RN - 12/31/2018 11:06 AM CDT Acute Inpatient Rehabilitation Referral Received: Will review Therapy evaluations and recommendations. Will continue to follow patient. * Plan of Care - Dewayne Rivas RN - 12/31/2018 3:54 AM CDT Problem: Health Behavior: Goal: Understanding of discharge needs will improve Outcome: Progressing Problem: Activity: Goal: Capacity to carry out activities will improve Outcome: Progressing Goal: Mobility will improve Outcome: Progressing Goal: Range of joint motion will improve Outcome: Progressing Problem: Lack of Knowledge: Goal: Verbalization of understanding the information provided will improve Outcome: Progressing Goals: Clinical Goals for the Shift: continue monitor neuro check Summary: Pt remains asymptomatic during shift. Denies pain. VSS. Continue to monitor. documented in this encounter Plan of Treatment Pending Results Name Type Priority Associated Diagnoses Date/Time Vascular Surgery Procedure CV Vacular Procedures Routine 01/01/2019 11:41 AM CDT Cardiac Catheterization Cardiac Cath Routine 01/01/2019 11:41 AM CDT documented as of this encounter Procedures Procedure Name Priority Date/Time Associated Diagnosis Comments POCT GLUCOSE DEVICE Routine 01/02/2019 6 :07 AM CDT DIFFERENTIAL AUTO Routine 01/02/2019 4:3 4 AM CDT CBC WITH AUTO DIFFERENTIAL Routine 01/02/2019 4:34 AM CDT EGFR Routine 01/02/2019 4:17 AM CDT PHOSPHORUS Routine 01/02/2019 4:17 AM CDT MAGNESIUM Routine 01/02/2019 4:17 AM CDT BASIC METABOLIC PANEL Routine 01/02/2019 4:17 AM CDT POCT GLUCOSE DEVICE Routine 01/01/2019 1 1:30 PM CDT POCT GLUCOSE DEVICE Routine 01/01/2019 5 :28 PM CDT POCT GLUCOSE DEVICE Routine 01/01/2019 1 2:17 PM CDT POCT GLUCOSE DEVICE Routine 01/01/2019 1 2:02 PM CDT VASCULAR SURGERY PROCEDURE Routine 01/01/2019 11:41 AM CDT [facility] VERTBRL [id number] Routine 01/01/2019 11:41 AM CDT [facility] CAROTID ART [id number] Routine 01/01/2019 11:41 AM CDT EGFR Routine 01/01/2019 6:15 AM CDT DIFFERENTIAL AUTO Routine 01/01/2019 6:1 5 AM CDT CBC WITH AUTO DIFFERENTIAL Routine 01/01/2019 6:15 AM CDT MAGNESIUM Routine 01/01/2019 6:15 AM CDT BASIC METABOLIC PANEL Routine 01/01/2019 6:15 AM CDT POCT GLUCOSE DEVICE Routine 01/01/2019 5 :58 AM CDT POCT GLUCOSE DEVICE Routine 01/01/2019 2 :29 AM CDT POCT GLUCOSE DEVICE Routine 01/01/2019 1 :07 AM CDT POCT GLUCOSE DEVICE Routine 12/31/2018 8 :48 PM CDT POCT GLUCOSE DEVICE Routine 12/31/2018 5 :21 PM CDT TYPE AND SCREEN Timed 12/31/2018 1:05 PM CDT POCT GLUCOSE DEVICE Routine 12/31/2018 1 2:25 PM CDT XR CHEST PA LATERAL 2 VIEWS IP Routine 12/31/2018 8:49 AM CDT EGFR Routine 12/31/2018 6:42 AM CDT DIFFERENTIAL AUTO Routine 12/31/2018 6:4 2 AM CDT CBC WITH AUTO DIFFERENTIAL Routine 12/31/2018 6:42 AM CDT MAGNESIUM Routine 12/31/2018 6:42 AM CDT HEMOGLOBIN A1C Routine 12/31/2018 6:42 AM CDT BASIC METABOLIC PANEL Routine 12/31/2018 6:42 AM CDT B CHECK SAMPLE STAT 12/31/2018 6:38 AM CDT POCT GLUCOSE DEVICE Routine 12/31/2018 6 :10 AM CDT POCT GLUCOSE DEVICE Routine 12/31/2018 2 :37 AM CDT documented in this encounter Results * POCT glucose (01/02/2019 6:07 AM CDT) [facility] Glucose, POC 125 70 - 199 mg/dL [facility] MAGALLON Blood specimen (specimen) 01/02/2019 6:07 AM CDT 01/02/2019 6:07 AM CDT Narrative [facility] - 01/02/2019 6:16 AM CDT Naga Enriquez MD LAB POCT ORDERABLES - DEVICE Fi nal Result [facility] [address] Department [place] [address] * Differential, auto (01/02/2019 4:34 AM CDT) Neutrophil abs 3.8 1.7 - 6.5 K/cumm [facility] Imm gran abs 0.0 0.0 - 0.1 K/cumm [facility] Lymphocyte abs 1.8 0.8 - 3.3 K/cumm [facility] Monocyte abs 0.6 0.2 - 0.8 K/cumm [facility] Eosinophil abs 0.2 0.0 - 0.5 K/cumm [facility] Basophil abs 0.0 0.0 - 0.1 K/cumm [facility] Neutrophil pct 58.7 % [facility] Comment: Interpretive Data Percent cell count reference ranges are not reported, since discordance with absolute values may lead to misinterpretation of CBC data. Current Interpretive Data was last revised on 2017. Imm gran pct 0.3 % [facility] Comment: Interpretive Data Percent cell count reference ranges are not reported, since discordance with absolute values may lead to misinterpretation of CBC data. Current Interpretive Data was last revised on 2017. Lymphocyte pct 28.9 % [facility] Comment: Interpretive Data Percent cell count reference ranges are not reported, since discordance with absolute values may lead to misinterpretation of CBC data. Current Interpretive Data was last revised on 2017. Monocyte pct 9.0 % [facility] Comment: Interpretive Data Percent cell count reference ranges are not reported, since discordance with absolute values may lead to misinterpretation of CBC data. Current Interpretive Data was last revised on 2017. Eosinophil pct 2.3 % [facility] Comment: Interpretive Data Percent cell count reference ranges are not reported, since discordance with absolute values may lead to misinterpretation of CBC data. Current Interpretive Data was last revised on 2017. Basophil pct 0.8 % [facility] Comment: Interpretive Data Percent cell count reference ranges are not reported, since discordance with absolute values may lead to misinterpretation of CBC data. Current Interpretive Data was last revised on 2017. Blood specimen (specimen) 01/02/2019 4:34 AM CDT 01/02/2019 4:34 AM CDT Narrative [facility] - 01/02/2019 4:43 AM CDT us Zan Lee MD LAB BLOOD ORDERABLES Final Res ult [facility] [address] Department [place] [address] * (ABNORMAL) CBC with auto differential (01/02/2019 4:34 AM CDT) WBC 6.4 3.8 - 9.9 K/cumm [facility] Hgb 13.5 11.9 - 15.5 g/dL [facility] Hct 41.8 35.6 - 45.5 % [facility] Plt 228 150 - 400 K/cumm [facility] MPV 10.1 9.1 - 12.[address] [facility] RBC 4.31 3.90 - 5.20 M/cumm [facility] MCV 97.0(H) 81.3 - 96.[address] [facility] MCH 31.3 27.1 - 33.[address] [facility] MCHC 32.3 32.3 - 35.7 g/dL [facility] RDW CV 12.1 11.1 - 14.9 % [facility] RDW SD 43.8 35.7 - 48.[address] [facility] NRBC abs 0.00 0.00 - 0.01 K/cumm [facility] Blood specimen (specimen) 01/02/2019 4:34 AM CDT 01/02/2019 4:34 AM CDT Narrative [facility] - 01/02/2019 4:43 AM CDT Zan Lee MD LAB BLOOD ORDERABLES Final Res ult Performing Organization Address [facility] de Phone Number [facility] [address] Department [place] [address] * eGFR (01/02/2019 4:17 AM CDT) eGFR 94 mL/min/1.[address] [facility] Comment: Interpretive Data Reference Interval Normal ?>/= 90 mL/min/1.73m2 Mildly decreased* ? 60 - 89 mL/min/1.73m2 Mildly to moderately decreased ?45 - 59 mL/min/1.73m2 Moderately to severely decreased ??30 - 44 mL/min/1.73m2 Severely decreased ?15 - 29 mL/min/1.73m2 Kidney Failure ?< 15 ??mL/min/1.73m2 *Relative to young adult level If -[place] multiply value by 1.16. Estimated glomerular filtration [...] was last reviewed 2016. Blood specimen (specimen) 01/02/2019 4:17 AM CDT 01/02/2019 4:34 AM CDT Narrative [facility] - 01/02/2019 4:50 AM CDT Zan Lee MD LAB BLOOD ORDERABLES Final Res ult Performing Organization Address [facility] Co de Phone Number [facility] [address] [place] [address] * Phosphorus (01/02/2019 4:17 AM CDT) Phosphorus, pl 4.5 2.3 - 4.5 mg/dL [facility] Blood specimen (specimen) 01/02/2019 4:17 AM CDT 01/02/2019 4:34 AM CDT Narrative [facility] - 01/02/2019 4:50 AM CDT Levi SAMS LAB BLOOD ORDERABLES Final Result [facility] [address] [place] [address] * Magnesium (01/02/2019 4:17 AM CDT) Pathologist [facility] Magnesium 1.8 1.4 - 2.5 mg/dL [facility] Blood specimen (specimen) 01/02/2019 4:17 AM CDT 01/02/2019 4:34 AM CDT Narrative [facility] - 01/02/2019 4:50 AM CDT Zan Lee MD LAB BLOOD ORDERABLES Final Res ult Performing Organization Address City/[facility]/ZIP Co de Phone Number [facility] [address] [place] [address] * Basic metabolic panel (01/02/2019 4:17 AM CDT) Sodium 140 135 - 145 mmol/L [facility] Potassium, pl 4.3 3.3 - 4.9 mmol/L [facility] Chloride 104 97 - 110 mmol/L [facility] CO2 23 22 - 32 mmol/L [facility] Anion gap 13 2 - 15 mmol/L [facility] BUN 17 8 - 25 mg/dL [facility] Creatinine 0.65 0.60 - 1.10 mg/dL [facility] Glucose 132 70 - 199 mg/dL [facility] Comment: Interpretive Data Fasting glucose >/= 126 mg/dl is diagnostic for diabetes. ?? Fasting is defined as no caloric intake for at least 8 hours. Fasting glucose between 100 mg/dl to 125 mg/dl is diagnostic of prediabetes. In a patient with classic symptoms of hyperglycemia or hyperglycemic crisis, a random glucose >/= 200 mg/dl is diagnostic for diabetes. In the absence of unequivocal hyperglycemia, results should be confirmed by repeat testing. The classification and Diagnosis of Diabetes Diabetes Care 2017;40 (Suppl. 1):S11. Current interpretive data was last revised 2017. Calcium 8.7 8.5 - 10.3 mg/dL [facility] Blood specimen (specimen) 01/02/2019 4:17 AM CDT 01/02/2019 4:34 AM CDT Narrative [facility] - 01/02/2019 4:50 AM CDT us Zan Lee MD LAB BLOOD ORDERABLES Final Res ult Performing Organization Address [facility] Co de Phone Number [facility] [address] [place] [address] * POCT glucose (01/01/2019 11:30 PM CDT) Glucose, POC 103 70 - 199 mg/dL [facility] Blood specimen (specimen) 01/01/2019 11:30 PM CDT 01/01/2019 11:30 PM CDT Narrative [facility] - 01/01/2019 11:32 PM CDT Naga Enriquez MD LAB POCT ORDERABLES - DEVICE Fi nal Result Performing Organization Address [facility]/ZIP Co de Phone Number [facility] [address] [employer] [place], [place] [id number] * POCT glucose (01/01/2019 5:28 PM CDT) Glucose, POC 97 70 - 199 mg/dL [facility] Blood specimen (specimen) 01/01/2019 5:28 PM CDT 01/01/2019 5:28 PM CDT Narrative [facility] - 01/01/2019 5:29 PM CDT Naga Enriquez MD LAB POCT ORDERABLES - DEVICE Fi nal Result Performing Organization Address [facility] de Phone Number [facility] MAG[facility]ON [address] [place] [address] * POCT glucose (01/01/2019 12:17 PM CDT) Glucose, POC 130 70 - 199 mg/dL [facility] Blood specimen (specimen) 01/01/2019 12:17 PM CDT 01/01/2019 12:17 PM CDT Narrative [facility] - 01/01/2019 12:19 PM CDT Naga Enriquez MD LAB POCT ORDERABLES - DEVICE Fi nal Result Performing Organization Address [facility] de Phone Number [facility] MAG[facility]ON [address] [place] [address] * POCT glucose (01/01/2019 12:02 PM CDT) Glucose, POC 121 70 - 199 mg/dL [facility] Blood specimen (specimen) 01/01/2019 12:02 PM CDT 01/01/2019 12:02 PM CDT Narrative [facility] - 01/01/2019 12:25 PM CDT Naga Enriquez MD LAB POCT ORDERABLES - DEVICE Fi nal Result Performing Organization Address [facility] de Phone Number [facility] [address] [place] [address] * eGFR (01/01/2019 6:15 AM CDT) eGFR 98 mL/min/1.[address] [facility] Comment: Interpretive Data Reference Interval Normal ?>/= 90 mL/min/1.73m2 Mildly decreased* ? 60 - 89 mL/min/1.73m2 Mildly to moderately decreased ?45 - 59 mL/min/1.73m2 Moderately to severely decreased ??30 - 44 mL/min/1.73m2 Severely decreased ?15 - 29 mL/min/1.73m2 Kidney Failure ?< 15 ??mL/min/1.73m2 *Relative to young adult level If -[place] multiply value by 1.16. Estimated glomerular filtration [...] was last reviewed 2016. Blood specimen (specimen) 01/01/2019 6:15 AM CDT 01/01/2019 7:02 AM CDT Narrative [facility] - 01/01/2019 7:36 AM CDT us Melvin Caro MD LAB BLOOD ORDERABLES F inal Result Performing Organization Address City/State/[facility] Co de Phone Number [facility] [address] Department [place] [address] * Differential, auto (01/01/2019 6:15 AM CDT) Neutrophil abs 3.6 1.7 - 6.5 K/cumm [facility] Imm gran abs 0.0 0.0 - 0.1 K/cumm [facility] Lymphocyte abs 2.6 0.8 - 3.3 K/cumm [facility] Monocyte abs 0.7 0.2 - 0.8 K/cumm [facility] Eosinophil abs 0.2 0.0 - 0.5 K/cumm [facility] Basophil abs 0.1 0.0 - 0.1 K/cumm [facility] Neutrophil pct 49.8 % [facility] Comment: Interpretive Data Percent cell count reference ranges are not reported, since discordance with absolute values may lead to misinterpretation of CBC data. Current Interpretive Data was last revised on 2017. Imm gran pct 0.3 % [facility] Comment: Interpretive Data Percent cell count reference ranges are not reported, since discordance with absolute values may lead to misinterpretation of CBC data. Current Interpretive Data was last revised on 2017. Lymphocyte pct 36.1 % [facility] Comment: Interpretive Data Percent cell count reference ranges are not reported, since discordance with absolute values may lead to misinterpretation of CBC data. Current Interpretive Data was last revised on 2017. Monocyte pct 9.3 % [facility] Comment: Interpretive Data Percent cell count reference ranges are not reported, since discordance with absolute values may lead to misinterpretation of CBC data. Current Interpretive Data was last revised on 2017. Eosinophil pct 3.5 % [facility] Comment: Interpretive Data Percent cell count reference ranges are not reported, since discordance with absolute values may lead to misinterpretation of CBC data. Current Interpretive Data was last revised on 2017. Basophil pct 1.0 % [facility] Comment: Interpretive Data Percent cell count reference ranges are not reported, since discordance with absolute values may lead to misinterpretation of CBC data. Current Interpretive Data was last revised on 2017. Blood specimen (specimen) 01/01/2019 6:15 AM CDT 01/01/2019 7:02 AM CDT Narrative [facility] - 01/01/2019 7:09 AM CDT us Melvin Caro MD LAB BLOOD ORDERABLES F inal Result [facility] [address] Department [place] [address] * Magnesium (01/01/2019 6:15 AM CDT) Magnesium 1.9 1.4 - 2.5 mg/dL [facility] Blood specimen (specimen) 01/01/2019 6:15 AM CDT 01/01/2019 7:02 AM CDT Narrative [facility] - 01/01/2019 7:36 AM CDT us Zan Lee MD LAB BLOOD ORDERABLES Final Res ult Performing Organization Address [facility]/ZIP [facility] Phone Number [facility] [address] Department [place] [address] * (ABNORMAL) Basic metabolic panel (01/01/2019 6:15 AM CDT) Sodium 139 135 - 145 mmol/L [facility] Potassium, pl 4.8 3.3 - 4.9 mmol/L [facility] Chloride 99 97 - 110 mmol/L [facility] CO2 27 22 - 32 mmol/L [facility] Anion gap 13 2 - 15 mmol/L [facility] BUN 17 8 - 25 mg/dL [facility] Creatinine 0.59(L) 0.60 - 1.10 mg/dL [facility] Glucose 127 70 - 199 mg/dL [facility] Comment: Interpretive Data Fasting glucose >/= 126 mg/dl is diagnostic for diabetes. ?? Fasting is defined as no caloric intake for at least 8 hours. Fasting glucose between 100 mg/dl to 125 mg/dl is diagnostic of prediabetes. In a patient with classic symptoms of hyperglycemia or hyperglycemic crisis, a random glucose >/= 200 mg/dl is diagnostic for diabetes. In the absence of unequivocal hyperglycemia, results should be confirmed by repeat testing. The classification and Diagnosis of Diabetes Diabetes Care 2017;40 (Suppl. 1):S11. Current interpretive data was last revised 2017. Calcium 9.8 8.5 - 10.3 mg/dL [facility] Blood specimen (specimen) 01/01/2019 6:15 AM CDT 01/01/2019 7:02 AM CDT Narrative [facility] - 01/01/2019 7:36 AM CDT Zan Lee MD LAB BLOOD ORDERABLES Final Res ult [facility] [address] Department [place] [address] * (ABNORMAL) CBC with auto differential (01/01/2019 6:15 AM CDT) WBC 7.2 3.8 - 9.9 K/cumm [facility] Hgb 16.6(H) 11.9 - 15.5 g/dL [facility] Hct 51.8(H) 35.6 - 45.5 % [facility] Plt 306 150 - 400 K/cumm [facility] MPV 10.2 9.1 - 12.[address] [facility] RBC 5.29(H) 3.90 - 5.20 M/cumm [facility] MCV 97.9(H) 81.3 - 96.[address] [facility] MCH 31.4 27.1 - 33.[address] [facility] MCHC 32.0(L) 32.3 - 35.7 g/dL [facility] RDW CV 12.1 11.1 - 14.9 % [facility] RDW SD 43.6 35.7 - 48.[address] [facility] NRBC abs 0.00 0.00 - 0.01 K/cumm [facility] Blood specimen (specimen) 01/01/2019 6:15 AM CDT 01/01/2019 7:02 AM CDT Narrative [facility] - 01/01/2019 7:09 AM CDT Zan Lee MD LAB BLOOD ORDERABLES Final Res ult [facility] [address] Department [place] [address] * POCT glucose (01/01/2019 5:58 AM CDT) Glucose, POC 130 70 - 199 mg/dL [facility] Blood specimen (specimen) 01/01/2019 5:58 AM CDT 01/01/2019 5:58 AM CDT Narrative [facility] - 01/01/2019 6:05 AM CDT Naga Enriquez MD LAB POCT ORDERABLES - DEVICE Fi nal Result Performing Organization Address [facility] de Phone Number [facility] MAG[facility] [address] [place] [address] * POCT glucose (01/01/2019 2:29 AM CDT) Glucose, POC 105 70 - 199 mg/dL [facility] Blood specimen (specimen) 01/01/2019 2:29 AM CDT 01/01/2019 2:29 AM CDT Narrative [facility] - 01/01/2019 2:35 AM CDT Naga Enriquez MD LAB POCT ORDERABLES - DEVICE Fi nal Result Performing Organization Address [facility] de Phone Number [facility] MAG[facility] [address] [place] [address] * POCT glucose (01/01/2019 1:07 AM CDT) Glucose, POC 122 70 - 199 mg/dL [facility] Blood specimen (specimen) 01/01/2019 1:07 AM CDT 01/01/2019 1:07 AM CDT Narrative [facility] - 01/01/2019 1:08 AM CDT Naga Enriquez MD LAB POCT ORDERABLES - DEVICE Fi nal Result Performing Organization Address [facility] de Phone Number [facility] MAG[facility] [address] [place] [address] * POCT glucose (12/31/2018 8:48 PM CDT) Glucose, POC 112 70 - 199 mg/dL [facility] Blood specimen (specimen) 12/31/2018 8:48 PM CDT 12/31/2018 8:48 PM CDT Narrative [facility] - 12/31/2018 9:09 PM CDT Naga Enriquez MD LAB POCT ORDERABLES - DEVICE Fi nal Result Performing Organization Address City/[facility] Co de Phone Number [facility] MAG[facility] [address] [facility] [place] [address] * POCT glucose (12/31/2018 5:21 PM CDT) Glucose, POC 109 70 - 199 mg/dL [facility] Blood specimen (specimen) 12/31/2018 5:21 PM CDT 12/31/2018 5:21 PM CDT Narrative [facility] - 12/31/2018 5:23 PM CDT Naga Enriquez MD LAB POCT ORDERABLES - DEVICE Fi nal Result Performing Organization Address [facility] de Phone Number [facility] [address] [facility] [place] [address] * Type and screen (12/31/2018 1:05 PM CDT) Twyla, indirect Negative [facility] ABO Rh O Positive [facility] Blood specimen (specimen) 12/31/2018 1:05 PM CDT 12/31/2018 1:16 PM CDT Narrative [facility] - 12/31/2018 1:57 PM CDT Has the patient had Daratumumab (Darzalex) in the past 6 months?->Unknown Zan Lee MD LAB BLOOD BANK TEST ORDERABLES Final Result Performing Organization Address [facility] Co de Phone Number [facility] [address] [facility] [place] [address] * POCT glucose (12/31/2018 12:25 PM CDT) Glucose, POC 99 70 - 199 mg/dL [facility] Blood specimen (specimen) 12/31/2018 12:25 PM CDT 12/31/2018 12:25 PM CDT Narrative [facility] - 12/31/2018 12:26 PM CDT Naga Enriquez MD LAB POCT ORDERABLES - DEVICE Fi nal Result [facility] [address] Department [place] [address] * XR Chest Pa Lateral 2 Views (12/31/2018 8:49 AM CDT) Anatomical Region Laterality Modality Body, Chest N/A Computed Radiogr aphy 12/31/2018 8:51 AM CDT Impressions 12/31/2018 8:56 AM CDT NO ACUTE PULMONARY CHANGE. Electronically signed by: Fernando Moore M.D. Narrative 12/31/2018 8:56 AM CDT RESULT: HISTORY: Short of breath EXAMINATION: XR CHEST PA LATERAL 2 VIEWS ORDER DATE: 12/31/2018 8:40 AM FINDINGS: There are small scattered parenchymal and perihilar granulomatous calcifications. The cardiac and mediastinal outlines are unremarkable, except for poststernotomy change. There are no pleural effusions or infiltrates. No significant abnormalities are noted in the spine or remainder of the bony thorax. Procedure Note Fernando Moore MD - 12/31/2018 RESULT: HISTORY: Short of breath EXAMINATION: XR CHEST PA LATERAL 2 VIEWS ORDER DATE: 12/31/2018 8:40 AM FINDINGS: There are small scattered parenchymal and perihilar granulomatous calcifications. The cardiac and mediastinal outlines are unremarkable, except for poststernotomy change. There are no pleural effusions or infiltrates. No significant abnormalities are noted in the spine or remainder of the bony thorax. IMPRESSION: NO ACUTE PULMONARY CHANGE. Electronically signed by: Fernando Moore M.D. Melvin Caro MD IMG XR PROCEDURES Jennifer l Result * eGFR (12/31/2018 6:42 AM CDT) eGFR 98 mL/min/1.[address] [facility] Comment: Interpretive Data Reference Interval Normal ?>/= 90 mL/min/1.73m2 Mildly decreased* ? 60 - 89 mL/min/1.73m2 Mildly to moderately decreased ?45 - 59 mL/min/1.73m2 Moderately to severely decreased ??30 - 44 mL/min/1.73m2 Severely decreased ?15 - 29 mL/min/1.73m2 Kidney Failure ?< 15 ??mL/min/1.73m2 *Relative to young adult level If -[place] multiply value by 1.16. Estimated glomerular filtration [...] was last reviewed 2016. Blood specimen (specimen) 12/31/2018 6:42 AM CDT 12/31/2018 7:09 AM CDT Narrative [facility] - 12/31/2018 7:38 AM CDT us Melvin Caro MD LAB BLOOD ORDERABLES F inal Result Performing Organization Address City/State/[facility] Co de Phone Number [facility] [address] Department [place] [address] * Differential, auto (12/31/2018 6:42 AM CDT) Neutrophil abs 4.0 1.7 - 6.5 K/cumm [facility] Imm gran abs 0.0 0.0 - 0.1 K/cumm [facility] Lymphocyte abs 1.9 0.8 - 3.3 K/cumm [facility] Monocyte abs 0.6 0.2 - 0.8 K/cumm [facility] Eosinophil abs 0.3 0.0 - 0.5 K/cumm [facility] Basophil abs 0.1 0.0 - 0.1 K/cumm [facility] Neutrophil pct 57.6 % [facility] Comment: Interpretive Data Percent cell count reference ranges are not reported, since discordance with absolute values may lead to misinterpretation of CBC data. Current Interpretive Data was last revised on 2017. Imm gran pct 0.4 % [facility] Comment: Interpretive Data Percent cell count reference ranges are not reported, since discordance with absolute values may lead to misinterpretation of CBC data. Current Interpretive Data was last revised on 2017. Lymphocyte pct 28.0 % [facility] Comment: Interpretive Data Percent cell count reference ranges are not reported, since discordance with absolute values may lead to misinterpretation of CBC data. Current Interpretive Data was last revised on 2017. Monocyte pct 9.2 % [facility] Comment: Interpretive Data Percent cell count reference ranges are not reported, since discordance with absolute values may lead to misinterpretation of CBC data. Current Interpretive Data was last revised on 2017. Eosinophil pct 3.9 % [facility] Comment: Interpretive Data Percent cell count reference ranges are not reported, since discordance with absolute values may lead to misinterpretation of CBC data. Current Interpretive Data was last revised on 2017. Basophil pct 0.9 % [facility] Comment: Interpretive Data Percent cell count reference ranges are not reported, since discordance with absolute values may lead to misinterpretation of CBC data. Current Interpretive Data was last revised on 2017. Blood specimen (specimen) 12/31/2018 6:42 AM CDT 12/31/2018 7:09 AM CDT Narrative [facility] - 12/31/2018 7:17 AM CDT us Melvin Caro MD LAB BLOOD ORDERABLES F inal Result [facility] [address] Department [place] [address] * Magnesium (12/31/2018 6:42 AM CDT) Magnesium 1.9 1.4 - 2.5 mg/dL [facility] Blood specimen (specimen) 12/31/2018 6:42 AM CDT 12/31/2018 7:09 AM CDT Narrative [facility] - 12/31/2018 7:38 AM CDT us Zan Lee MD LAB BLOOD ORDERABLES Final Res ult [facility] [address] Department [place] [address] * (ABNORMAL) Basic metabolic panel (12/31/2018 6:42 AM CDT) Sodium 140 135 - 145 mmol/L [facility] Potassium, pl 4.3 3.3 - 4.9 mmol/L [facility] Chloride 102 97 - 110 mmol/L [facility] CO2 26 22 - 32 mmol/L [facility] Anion gap 12 2 - 15 mmol/L [facility] BUN 15 8 - 25 mg/dL [facility] Creatinine 0.59(L) 0.60 - 1.10 mg/dL [facility] Glucose 147 70 - 199 mg/dL [facility] Comment: Interpretive Data Fasting glucose >/= 126 mg/dl is diagnostic for diabetes. ?? Fasting is defined as no caloric intake for at least 8 hours. Fasting glucose between 100 mg/dl to 125 mg/dl is diagnostic of prediabetes. In a patient with classic symptoms of hyperglycemia or hyperglycemic crisis, a random glucose >/= 200 mg/dl is diagnostic for diabetes. In the absence of unequivocal hyperglycemia, results should be confirmed by repeat testing. The classification and Diagnosis of Diabetes Diabetes Care 2017;40 (Suppl. 1):S11. Current interpretive data was last revised 2017. Calcium 9.0 8.5 - 10.3 mg/dL [facility] Blood specimen (specimen) 12/31/2018 6:42 AM CDT 12/31/2018 7:09 AM CDT Narrative [facility] - 12/31/2018 7:38 AM CDT Zan Lee MD LAB BLOOD ORDERABLES Final Res ult Performing Organization Address City/[facility] de Phone Number [facility] [address] Department [place] [address] * CBC with auto differential (12/31/2018 6:42 AM CDT) WBC 6.9 3.8 - 9.9 K/cumm [facility] Hgb 14.6 11.9 - 15.5 g/dL [facility] Hct 44.9 35.6 - 45.5 % [facility] Plt 255 150 - 400 K/cumm [facility] MPV 9.9 9.1 - 12.[address] [facility] RBC 4.71 3.90 - 5.20 M/cumm [facility] MCV 95.3 81.3 - 96.[address] [facility] MCH 31.0 27.1 - 33.[address] [facility] MCHC 32.5 32.3 - 35.7 g/dL [facility] RDW CV 12.1 11.1 - 14.9 % [facility] RDW SD 42.4 35.7 - 48.[address] [facility] NRBC abs 0.00 0.00 - 0.01 K/cumm [facility] Blood specimen (specimen) 12/31/2018 6:42 AM CDT 12/31/2018 7:09 AM CDT Narrative [facility] - 12/31/2018 7:17 AM CDT Zan Lee MD LAB BLOOD ORDERABLES Final Res ult Performing Organization Address [facility] Co de Phone Number [facility] [address] Department [place] [address] * Hemoglobin A1c (12/31/2018 6:42 AM CDT) Hgb A1C 5.5 4.0 - 5.6 % [facility] Estimated Average Glucose 111 mg/dL [facility] Comment: The ADA recommends reporting an estimated Average Glucose (eAG) with all Hemoglobin A1c results using the equation derived from a study of 507 normal and diabetic adults. ??Minority populations were underrepresented and children were not included. ?? (Diabetes Care 31:7981-4687, 2008). ??The eAG is not equivalent to a fasting glucose. Blood specimen (specimen) 12/31/2018 6:42 AM CDT 12/31/2018 7:59 AM CDT Narrative [facility] - 12/31/2018 8:24 AM CDT Melvin Caro MD LAB BLOOD ORDERABLES F inal Result Performing Organization Address [facility] Co de Phone Number [facility] [address] [place] [address] * Check Sample (12/31/2018 6:38 AM CDT) ABO Rh O Positive [facility] OTHER 12/31/2018 6:38 AM CDT 12/31/2018 1:54 PM CDT Narrative [facility] - 12/31/2018 2:17 PM CDT Naga Enriquez MD LAB BLOOD ORDERABLES Final Resu lt Performing Organization Address [facility] de Phone Number [facility] [address] [place] [address] * POCT glucose (12/31/2018 6:10 AM CDT) Glucose, POC 130 70 - 199 mg/dL [facility] Blood specimen (specimen) 12/31/2018 6:10 AM CDT 12/31/2018 6:10 AM CDT Narrative [facility] - 12/31/2018 6:30 AM CDT Melvin Caro MD LAB POCT ORDERABLES - DEVICE Final Result Performing Organization Address [facility] de Phone Number [facility] [address] [facility] [place] [address] * POCT glucose (12/31/2018 2:37 AM CDT) Glucose, POC 145 70 - 199 mg/dL [facility] Blood specimen (specimen) 12/31/2018 2:37 AM CDT 12/31/2018 2:37 AM CDT Narrative [facility] - 12/31/2018 2:38 AM CDT Melvin Caro MD LAB POCT ORDERABLES - DEVICE Final Result [facility] [address] Department [place] [address] documented in this encounter Visit Diagnoses Diagnosis CVA (cerebral vascular accident) (HCC)- Primary Unspecified cerebral artery occlusion with cerebral infarction Carotid atherosclerosis Occlusion and stenosis of carotid artery without mention of cerebral infarction Abnormal CXR Nonspecific (abnormal) findings on radiological and other examination of lung field Essential hypertension Unspecified essential hypertension Type 2 diabetes mellitus with circulatory disorder, without long-term current use of insulin (HCC) Acute cystitis without hematuria Paroxysmal atrial flutter (CMS/HCC) (HCC) 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 Given 01/02/2019 9:13 AM CDT 81 mg Given 01/01/2019 1:39 PM CDT 81 mg Given 12/31/2018 9:55 AM CDT 81 mg atorvastatin (LIPITOR) tablet 20 mg 20 mg, oral, Daily, First dose (after last modification) on Sun12/31/18 at 2100 Given 01/01/2019 8:19 PM CDT 20 mg Given 12/31/2018 8:49 PM CDT 20 mg ciprofloxacin (CIPRO) tablet 500 mg 500 mg, oral, 2 times daily, First dose on Sun12/31/18 at 1115, For 5 days, Indications: Urinary Tract/Genitourinary InfectionIndications:Urinary Tract/Genitourinary Infection Given 01/02/2019 9:13 AM CDT 500 mg Given 01/01/2019 8:19 PM CDT 500 mg Given 01/01/2019 1:40 PM CDT 500 mg clopidogrel (PLAVIX) tablet 150 mg 150 mg, oral, Once, On Sun12/31/18 at 1300, For 1 dose Given 12/31/2018 1:19 PM CDT 150 mg clopidogrel (PLAVIX) tablet 150 mg 150 mg, oral, Once, On Sun12/31/18 at 1700, For 1 dose Given 12/31/2018 6:11 PM CDT 150 mg clopidogrel (PLAVIX) tablet 75 mg 75 mg, oral, Daily, First dose (after last modification) on Sun12/31/18 at 0900 Given 01/02/2019 9:13 AM CDT 75 mg Given 01/01/2019 1:41 PM CDT 75 mg dextrose (D10W) 10% bolus 250 mL 250 mL, intravenous, at 1,000 mL/hr, Administer over 15 Minutes, Every 15 min PRN, blood glucose less than 70 mg/dL and UNABLE to swallow/take PO glucose/juice., Starting on Sun12/31/18 at 031, After treatment for hypoglycemia, recheck BG followed by treatment every 15 minutes until the BG is greater than 100 mg/dL. Then check BG 1 hour post treatment. If BG is less than 100 mg/dL, repeat Q15 minute BG checks and treatment. Call MD for each episode of hypoglycemia., Indications: hypoglycemic disorderIndications:hypogly cemic disorder dextrose oral liquid liquid 15 g 15 g, oral, Every 15 min PRN, low blood sugar, blood glucose less than 70 mg/dL, Starting on Sun12/31/18 at 0316, If patient is alert and able to eat/drink, give 15 gm glucose or one juice (4 fluid ounces) NOT ORANGE JUICE. After treatment for hypoglycemia, recheck BG followed by treatment every 15 minutes until the BG is greater than 100 mg/dL. Then check BG 1 hour post-treatment. If BG is less than 100 mg/dL, repeat Q15 minute BG checks and treatment. Call MD for each episode of hypoglycemia., Indications: hypoglycemic disorderIndications:hypogly cemic disorder famotidine (PEPCID) injection 20 mg 20 mg, intravenous, Administer over 2 Minutes, Daily, First dose on Sun01/01/19 at 1145 Given 01/01/2019 1:44 PM CDT 20 mg glucagon injection 1 mg 1 mg, intramuscular, Administer over 1 Minutes, Every 30 min PRN, low blood sugar, blood glucose less than 70 mg/dL AND no IV access AND unable to take PO glucose/jiuce., Starting on Sun12/31/18 at 0316, After Glucagon is administered, position patient on side if possible to avoid aspiration. Obtain IV access. Follow glucagon treatment with glucose treatment or IV dextrose. After treatment for hypoglycemia, recheck BG followed by treatment every 15 minutes until the BG is greater than 100 mg/dL. Then check BG 1 hour post treatment. If BG is less than 100 mg/dL, repeat Q15 minute BG checks and treatment. Call MD for each episode of hypoglycemia., Indications: HypoglycemiaIndications:Hyp oglycemia heparin 5,000 unit/mL injection 5,000 Units 5,000 Units, subcutaneous, Every 8 hours scheduled, First dose on Sun12/31/18 at 0600, Indications: Deep Vein Thrombosis PreventionIndications:Deep Vein Thrombosis Prevention Given 01/02/2019 5:39 AM CDT 5,000 Units Right Lower Abdomen Given 01/01/2019 10:20 PM CDT 5,000 Units Left Upper Abdomen Given 01/01/2019 1:42 PM CDT 5,000 Units L eft Lower Abdomen insulin lispro (HumaLOG) injection 1-2 Units 1-2 Units, subcutaneous, Every 6 hours scheduled, First dose on Sun12/31/18 at 0600, Blood Sugar Low Dose NPO patients 200 or less No Insulin 201 - 250 1 unit 251 - 299 2 units Greater than 299 Call MD for hyperglycemia management instructions Do NOT hold for NPO status., Indications: Diabetes MellitusIndications:Diabetes Mellitus levothyroxine (SYNTHROID, LEVOTHROID) tablet 75 mcg 75 mcg, oral, Daily (early AM), First dose (after last modification) on Sun12/31/18 at 0600, Administer on an empty stomach, preferably 30 minutes before breakfast. Take 4 hours apart from antacids, iron and calcium products. Given 01/02/2019 5:41 AM CDT 75 mcg Given 12/31/2018 8:02 AM CDT 75 mcg losartan (COZAAR) tablet 50 mg 50 mg, oral, Daily, First dose (after last modification) on Sun12/31/18 at 0900 Given 01/02/2019 9:13 AM CDT 50 mg metoprolol (LOPRESSOR) tablet 25 mg 25 mg, oral, 2 times daily, First dose (after last modification) on Sun12/31/18 at 0900, Hold for HR < 60 or SBP < 100 Given 01/02/2019 9:13 AM CDT 25 mg Given 12/31/2018 8:49 PM CDT 25 mg Given 12/31/2018 10:08 AM CDT 25 mg ondansetron (ZOFRAN) injection 4 mg 4 mg, intravenous, Administer over 2 Minutes, Every 6 hours PRN, nausea, vomiting, if not tolerating PO, Starting on Sun12/31/18 at 0310, Indications: Nausea and VomitingIndications:Nausea and Vomiting ondansetron ODT (ZOFRAN-ODT) disintegrating tablet 4 mg 4 mg, oral, Every 6 hours PRN, nausea, vomiting, Starting on Sun12/31/18 at 0310, Indications: Nausea and VomitingIndications:Nausea and Vomiting PARoxetine (PAXIL) tablet 20 mg 20 mg, oral, Daily, First dose (after last modification) on Sun12/31/18 at 0900 Given 01/02/2019 9:14 AM CDT 20 mg Given 01/01/2019 1:40 PM CDT 20 mg Given 12/31/2018 10:05 AM CDT 20 mg sodium chloride 0.9% flush 0.5-20 mL 0.5-20 mL, intra-catheter, Every 8 hours scheduled, First dose on Sun01/01/19 at 1400, Flush volume based on line type and size. Given 01/02/2019 5:44 AM CDT 10 mL Given 01/01/2019 10:20 PM CDT 10 mL Given 01/01/2019 1:45 PM CDT 10 mL documented in this encounter Discontinued Medications Medication Sig Discontinue Reason Start Date End Da te metoprolol (LOPRESSOR) 25 mg tablet metoprolol tartrate 25 mg tablet TAKE 1 TABLET BY MOUTH TWICE DAILY Reorder 01/02/2019 documented as of this encounter Active and Recently Administered Medications Times are shown in CDT. Scheduled Medication Order 12/31/2018 01/01/2019 01/02/2019 aspirin enteric coated tablet 81 mg 81 mg, oral, Daily, First dose on Sun12/31/18 at 0900, Do not crush, chew, cut, dissolve, open or otherwise manipulate tablet/capsule. 0955 (Given - Provider: Lashell Duarte RN - Comment: NPO for surgical consult) 1339 (Given - Provider: Jeaneth Rapp, JUSTICE) 0913 (Given - Provider: Marilia Boone, JUSTICE) atorvastatin (LIPITOR) tablet 20 mg 20 mg, oral, Daily, First dose (after last modification) on Sun12/31/18 at 2100 2049 (Given - Provider: Tonja Faria, JUSTICE) 2019 (Given - Provider: Deniz Croft RN) ciprofloxacin (CIPRO) tablet 500 mg 500 mg, oral, 2 times daily, First dose on Sun12/31/18 at 1115, For 5 days, Indications: Urinary Tract/Genitourinary Infection 1319 (Given - Provider: Lashell Duarte RN)2048 (Given - Provider: Tonja Faria RN) 1340 (Given - Provider: Jeaneth Rapp RN)2019 (Given - Provider: Deniz Croft, JUSTICE) 0913 (Given - Provider: Marilia Boone RN) clopidogrel (PLAVIX) tablet 150 mg (COMPLETED) 150 mg, oral, Once, On Sun12/31/18 at 1300, For 1 dose 1319 (Given - Provider: aLshell Duarte RN) clopidogrel (PLAVIX) tablet 150 mg (COMPLETED) 150 mg, oral, Once, On Sun12/31/18 at 1700, For 1 dose 1811 (Given - Provider: Lashell Duarte RN) clopidogrel (PLAVIX) tablet 75 mg 75 mg, oral, Daily, First dose (after last modification) on Sun12/31/18 at 0900 1008 (Not Given - Provider: Lashell Duarte RN - Reason: Other - Comment: NPO for surgical consult) 1341 (Given - Provider: Jeaneth Rapp RN) 0913 (Given - Provider: Marilia Boone RN) famotidine (PEPCID) injection 20 mg (CANCELED) 20 mg, intravenous, Administer over 2 Minutes, Daily, First dose on Sun01/01/19 at 1145 1344 (Given - Provider: Jeaneth Rapp RN) heparin 5,000 unit/mL injection 5,000 Units 5,000 Units, subcutaneous, Every 8 hours scheduled, First dose on Sun12/31/18 at 0600, Indications: Deep Vein Thrombosis Prevention 0802 (Given - Provider: Dewayne Rivas RN)1326 (Given - Provider: Lashell Duarte RN)2049 (Given - Provider: Tonja Faria RN) 0559 (Not Given - Provider: Tonja Faria RN - Reason: Contraindicated)1342 (Given - Provider: Jeaneth Rapp RN)2220 (Given - Provider: Deniz Croft RN) 0539 (Given - Provider: Deniz Croft RN) insulin lispro (HumaLOG) injection 1-2 Units 1-2 Units, subcutaneous, Every 6 hours scheduled, First dose on Sun12/31/18 at 0600, Blood Sugar Low Dose NPO patients 200 or less No Insulin 201 - 250 1 unit 251 - 299 2 units Greater than 299 Call MD for hyperglycemia management instructions Do NOT hold for NPO status., Indications: Diabetes Mellitus 0759 (Not Given - Provider: Dewayne Rivas RN - Reason: Order parameters not met)1316 (Not Given - Provider: Lashell Duarte RN - Reason: Order parameters not met)1724 (Not Given - Provider: Lashell Duarte RN - Reason: Other) 0107 (Not Given - Provider: Tonja Faria RN - Reason: Order parameters not met)0559 (Not Given - Provider: Tonja Faria RN - Reason: Order parameters not met)1246 (Not Given - Provider: Jeaneth Rapp RN - Reason: Order parameters not met)1917 (Not Given - Provider: Deniz Croft RN - Reason: Contraindicated)2336 (Not Given - Provider: Deniz Croft RN - Reason: Contraindicated) 0804 (Not Given - Provider: Marilia Boone RN - Reason: Order parameters not met) levothyroxine (SYNTHROID, LEVOTHROID) tablet 75 mcg 75 mcg, oral, Daily (early AM), First dose (after last modification) on Sun12/31/18 at 0600, Administer on an empty stomach, preferably 30 minutes before breakfast. Take 4 hours apart from antacids, iron and calcium products. 0802 (Given - Provider: Dewayne Rivas RN) 0600 (Not Given - Provider: Tonja Faria RN - Reason: NPO) 0541 (Given - Provider: Deniz Croft RN) losartan (COZAAR) tablet 50 mg 50 mg, oral, Daily, First dose (after last modification) on Sun12/31/18 at 0900 1005 (Not Given - Provider: Lashell Duarte RN - Reason: Other - Comment: r/o CVA) 1244 (Not Given - Provider: Jeaneth Rapp RN - Reason: Other) 0913 (Given - Provider: Marilia Boone RN) metoprolol (LOPRESSOR) tablet 25 mg 25 mg, oral, 2 times daily, First dose (after last modification) on Sun12/31/18 at 0900, Hold for HR < 60 or SBP < 100 1008 (Given - Provider: Lashell Duarte RN)2049 (Given - Provider: Tonja Faria RN) 1245 (Not Given - Provider: Jeaneth Rapp RN - Reason: Other)2019 (Not Given - Provider: Deniz Croft RN - Reason: Contraindicated) 0913 (Given - Provider: Marilia Boone RN) PARoxetine (PAXIL) tablet 20 mg 20 mg, oral, Daily, First dose (after last modification) on Sun12/31/18 at 0900 1005 (Given - Provider: Lashell Duarte RN) 1340 (Given - Provider: Jeaneth Rapp RN) 0914 (Given - Provider: Marilia Boone RN) sodium chloride 0.9% flush 0.5-20 mL 0.5-20 mL, intra-catheter, Every 8 hours scheduled, First dose on Sun01/01/19 at 1400, Flush volume based on line type and size. 1345 (Given - Provider: Jeaneth Rapp RN)7932 (Given - Provider: Deniz Croft, JUSTICE) 2349 (Given - Provider: Deniz Croft RN) PRN Medication Order 12/31/2018 01/01/2019 01/02/2019 acetaminophen (TYLENOL) tablet 650 mg 650 mg, oral, Every 4 hours PRN, 1st line for pain, fever, fever greater than 38.3 C, Starting on Sun12/31/18 at 0310, Indications: Fever, Pain atropine injection (CANCELED) Administer over 1 Minutes, As needed, Starting on Sun01/01/19 at 1107, Intra-Procedure (CV) 1107 (Given - Provider: Elisabet De Anda RN - Comment: HR 66) dextrose (D10W) 10% bolus 250 mL(Linked Group 1) 250 mL, intravenous, at 1,000 mL/hr, Administer over 15 Minutes, Every 15 min PRN, blood glucose less than 70 mg/dL and UNABLE to swallow/take PO glucose/juice., Starting on Sun12/31/18 at 0316, After treatment for hypoglycemia, recheck BG followed by treatment every 15 minutes until the BG is greater than 100 mg/dL. Then check BG 1 hour post treatment. If BG is less than 100 mg/dL, repeat Q15 minute BG checks and treatment. Call MD for each episode of hypoglycemia., Indications: hypoglycemic disorder dextrose oral liquid liquid 15 g(Linked Group 1) 15 g, oral, Every 15 min PRN, low blood sugar, blood glucose less than 70 mg/dL, Starting on Sun12/31/18 at 0316, If patient is alert and able to eat/drink, give 15 gm glucose or one juice (4 fluid ounces) NOT ORANGE JUICE. After treatment for hypoglycemia, recheck BG followed by treatment every 15 minutes until the BG is greater than 100 mg/dL. Then check BG 1 hour post-treatment. If BG is less than 100 mg/dL, repeat Q15 minute BG checks and treatment. Call MD for each episode of hypoglycemia., Indications: hypoglycemic disorder glucagon injection 1 mg 1 mg, intramuscular, Administer over 1 Minutes, Every 30 min PRN, low blood sugar, blood glucose less than 70 mg/dL AND no IV access AND unable to take PO glucose/jiuce., Starting on Sun12/31/18 at 0316, After Glucagon is administered, position patient on side if possible to avoid aspiration. Obtain IV access. Follow glucagon treatment with glucose treatment or IV dextrose. After treatment for hypoglycemia, recheck BG followed by treatment every 15 minutes until the BG is greater than 100 mg/dL. Then check BG 1 hour post treatment. If BG is less than 100 mg/dL, repeat Q15 minute BG checks and treatment. Call MD for each episode of hypoglycemia., Indications: Hypoglycemia heparin 1,000 unit/mL injection (CANCELED) As needed, Starting on Sun01/01/19 at 1025, Intra-Procedure (CV) 1025 (Given - Provider: Elisabet De Anda RN)1047 (Given - Provider: Elisabet De Anda RN)1057 (Given - Provider: Elisabet De Anda RN) heparin in 0.9% sodium chloride 1000 units/500 mL (2 unit/mL) infusion (premix) (CANCELED) As needed, Starting on Sun01/01/19 at 1001, Intra-Procedure (CV) 1001 (Given - Provider: Elisabet De Anda RN - Comment: On table)1007 (Given - Provider: Elisabet De Anda RN - Comment: Arterial sheath flush) ioversol (OPTIRAY 350) injection (CANCELED) As needed, Starting on Sun01/01/19 at 1015, Intra-Procedure (CV) 1015 (Given - Provider: Zan Lee MD) ipratropium-albuterol (DUO-NEB) 0.5-2.5 mg/3 mL nebulizer solution 3 mL 3 mL, nebulization, Every 4 hours PRN (disaster response director), wheezing, shortness of breath, Starting on Sun12/31/18 at 0310, Indications: Chronic Obstructive Pulmonary Disease with Bronchospasms labetalol (NORMODYNE,TRANDATE) injection (CANCELED) As needed, Starting on Sun01/01/19 at 1047, Intra-Procedure (CV) 1047 (Given - Provider: Elisabet De Anda RN - Comment: BP 190/100 HR 66)1105 (Given - Provider: Elisabet De Anda RN - Comment: 205/91 HR 67) lidocaine (XYLOCAINE) 10 mg/mL (1 %) injection (CANCELED) As needed, Starting on Sun01/01/19 at 1015, Intra-Procedure (CV), Indications: Administration of Local Anesthesia 1015 (Given - Provider: Zan Lee MD) ondansetron (ZOFRAN) injection 4 mg(Linked Group 2) 4 mg, intravenous, Administer over 2 Minutes, Every 6 hours PRN, nausea, vomiting, if not tolerating PO, Starting on Sun12/31/18 at 0310, Indications: Nausea and Vomiting ondansetron ODT (ZOFRAN-ODT) disintegrating tablet 4 mg(Linked Group 2) 4 mg, oral, Every 6 hours PRN, nausea, vomiting, Starting on Sun12/31/18 at 0310, Indications: Nausea and Vomiting sodium chloride 0.9% flush 0.5-20 mL 0.5-20 mL, intra-catheter, As needed, line care, Starting on Sun01/01/19 at 1056, Flush volume based on line type and size. Flush before and after each use. sodium chloride 0.9% infusion (COMPLETED) Continuous PRN, Starting on Sun01/01/19 at 1001, Intra-Procedure (CV) 1001 (New Bag - Provider: Elisabet De Anda RN) Linked Groups Order Group 1: dextrose oral liquid liquid 15 gJump to med 15 g, oral, Every 15 min PRN, low blood sugar, blood glucose less than 70 mg/dL, Starting on Sun12/31/18 at 0316, If patient is alert and able to eat/drink, give 15 gm glucose or one juice (4 fluid ounces) NOT ORANGE JUICE. After treatment for hypoglycemia, recheck BG followed by treatment every 15 minutes until the BG is greater than 100 mg/dL. Then check BG 1 hour post-treatment. If BG is less than 100 mg/dL, repeat Q15 minute BG checks and treatment. Call MD for each episode of hypoglycemia., Indications: hypoglycemic disorder Or dextrose (D10W) 10% bolus 250 mLJump to med 250 mL, intravenous, at 1,000 mL/hr, Administer over 15 Minutes, Every 15 min PRN, blood glucose less than 70 mg/dL and UNABLE to swallow/take PO glucose/juice., Starting on Sun12/31/18 at 0316, After treatment for hypoglycemia, recheck BG followed by treatment every 15 minutes until the BG is greater than 100 mg/dL. Then check BG 1 hour post treatment. If BG is less than 100 mg/dL, repeat Q15 minute BG checks and treatment. Call MD for each episode of hypoglycemia., Indications: hypoglycemic disorder Group 2: ondansetron ODT (ZOFRAN-ODT) disintegrating tablet 4 mgJump to med 4 mg, oral, Every 6 hours PRN, nausea, vomiting, Starting on Sun12/31/18 at 0310, Indications: Nausea and Vomiting Or ondansetron (ZOFRAN) injection 4 mgJump to med 4 mg, intravenous, Administer over 2 Minutes, Every 6 hours PRN, nausea, vomiting, if not tolerating PO, Starting on Sun12/31/18 at 0310, Indications: Nausea and Vomiting documented in this encounter Orders Medications Ordered That Drew ht Not Have Been Administered Count Last Ordered Date First Ordered Date atropine injection 01/01/2019 DOPamine in dextrose 5% 400 mg/250 mL (1600 mcg/mL) infusion (premix) 01/01/2019 heparin 1,000 unit/mL injection 9 heparin in 0.9% sodium chlor meri 1000 units/500 mL (2 unit/mL) infusion (premix) 01/01/2019 ioversol (OPTIRAY 350) injection 01/02/20 labetalol (NORMODYNE,TRANDATE) injection 01/01/2019 lidocaine (XYLOCAINE) 10 mg/ mL (1 %) injection 01/01/2019 niCARdipine (CARDENE) 25,000 mcg in sodium chloride 0.9% 250 mL (100 mcg/mL) infusion 01/01/2019 niCARdipine in 0.9% sodium c hloride (CARDENE) 20,000 mcg/200 mL (100 mcg/mL) infusion (premix) 01/01/2019 sodium chloride 0.9% flush 0.5-20 mL 03/2019 sodium chloride 0.9% infusion 01/01/2019 acetaminophen (TYLENOL) tablet 650 mg 02/2019 dextrose (D10W) 10% bolus 250 mL 01/01/20 19 dextrose oral liquid liquid 15 g 1 01/01/20 glucagon injection 1 mg 1 12/31/2018 insulin lispro (HumaLOG) inj ection 1-2 Units 1 12/31/2018 ipratropium-albuterol (DUO-N EB) 0.5-2.5 mg/3 mL nebulizer solution 3 mL 1 12/31/2018 levoFLOXacin (LEVAQUIN) tablet 750 mg 1 02/2019 ondansetron (ZOFRAN) injection 4 mg 1 12/31 ondansetron ODT (ZOFRAN-ODT) disintegrating tablet 4 mg 1 12/31/2018 Lab Orders Without Results Count Last Ordered D ate First Ordered Date POCT GLUCOSE DEVICE 1 01/01/2019 Diet Count Last Ordered Date First Orde red Date ADULT DISCHARGE DIET 1 01/02/2019 Nursing Count Last Ordered Date First Orde red Date DISCHARGE ACTIVITY 1 01/02/2019 DISCHARGE CALL PROVIDER 7 01/02/2019 FOLLOW UP PRIMARY PHYSICIAN 1 01/02/2019 FOLLOW UP WITH PROVIDER 1 01/02/2019 NURSING COMMUNICATION 2 01/01/2019 Consult Count Last Ordered Date First Orde red Date IP CONSULT TO NUTRITION SERVICES 1 01/01/20 IP CONSULT TO VASCULAR SURGERY 1 12/31/2018 Admission Count Last Ordered Date First Orde red Date ASSIGN PATIENT STATUS 1 12/31/2018 Transfer Count Last Ordered Date First Orde red Date TRANSFER PATIENT 1 01/01/2019 CORE MEASURES Count Last Ordered Date First Ord ered Date REASON FOR NO VTE PROPHYLAXIS AT ADMISSION 1 01/01/2019 REASON FOR NOT ADMINISTERING ANTITHROMBOTIC THERAPY BY EOD 2 1 12/31/2018 REASON FOR NOT INITIATING IV THROMBOLYTIC 1 12/31/2018 documented in this encounter Care Teams Lookback Coordinator Relationship Specialty Start Date End Date Robbie Haywood MD [address] [place] [address] PCP - General 12/29/18 12/13/20 Zan Lee MD [address] [place] [address] Surgeon Neurosurgery 01/02/19 documented as of this encounter
--- OUTSIDE RECORDS SUMMARY | 2024-08-30 18:58 | XMS_ITS | Encounter Summary ---
Author Organization [facility] Address 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 Gender Identity Not on file Sexual Orientation Not on file documented as of this encounter Plan of Treatment Not on file documented as of this encounter Procedures Procedure Name Priority Date/Time Associated Diagnosis Comments PROTIME-INR Routine 12/01/2020 documented in this encounter Results * (ABNORMAL) Protime-INR (12/01/2020) INR 1.40(A) 0.9 - 1.1 EXTERNAL LAB Blood specimen (specimen) us Historical Provider LAB BLOOD ORDERABLES Jennifer doran Result EXTERNAL LAB documented in this encounter Visit Diagnoses Not on filedocumented in this encounter Care Teams Neurosurgical Physician Assistant Relationship Specialty Start Date End Date Robbie Haywood MD [address] [place] [address] PCP - General 12/29/18 12/13/20 Zan Lee MD [address] [place] [address] Surgeon Neurosurgery 01/02/19 documented as of this encounter
--- OUTSIDE RECORDS SUMMARY | 2024-08-30 18:58 | XMS_ITS | Encounter Summary ---
Author Organization [facility] Address [address] [place] [address] Care Team Providers Care Process Control Technician Name Role Phone Robbie Haywood MD Primary Care Provider [phone] Zan Lee MD Unavailable [phone] Encounter Details Date Type Department Care Team (Late st Contact Info) Description 09/07/2020 Orders Only [facility] Cardiology [address] [place] [address] Anderson Trejo MD [address] [facility] [address] [place] [id number] Social History Tobacco Use Types Packs/Day Years [...] on file 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
--- OUTSIDE RECORDS SUMMARY | 2024-08-30 18:58 | XMS_ITS | Encounter Summary ---
Author Organization [facility] Healthcare Address [address] [place] [address] Care Team Providers Care Skip Miner [employer]asting Name Role Phone Robbie Haywood MD Primary Care Provider [phone] Zan Price MD Unavailable Encounter Details Date Type Department Care Team (Late st Contact Info) Description 06/03/2019 7:30 AM CDT - 06/03/2019 11:30 AM CDT Surgery [facility] Operating Room [id number] [place] [address] [place] [address] [place] [address] right carotid endarterectomy Surgery Details Date/Time Status Location OR Service Patient Class Case Class Case Type Trauma Case? 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 Gender Identity Not on file Sexual Orientation Not on file documented as of this encounter Last Filed Vital Signs Vital Sign Reading Time Taken Comments Blood Pressure 107/46 06/03/2019 11:07 AM CDT Pulse 82 06/03/2019 11:30 AM CDT Temperature 37.4 ??C (99.4 ??F) 06/03/2019 11:07 AM C DT Respiratory Rate 12 06/03/2019 11:30 AM CDT Oxygen Saturation 98% 06/03/2019 11:30 AM CDT Inhaled Oxygen Concentration - - Weight 99.8 kg (220 lb) 06/03/2019 6:37 AM CDT Height 165.1 cm (5' 5 ) 06/03/2019 6:37 AM CDT Body Mass Index 36.21 06/03/2019 6:37 AM CDT documented in this encounter Discharge Summaries * Zan Price MD - 06/04/2019 2:40 PM CDT Inpatient Discharge Summary BRIEF OVERVIEW Admitting Provider: Zan Price MD Discharge Provider: No att. 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 Now presents for elective treatment RIGHT carotid stenosis, possibly symptomatic in terms of amaurosis. Hospital Course: Admitted as scheduled for elective RIGHT carotid endarterectomy, which proceeded uneventfully. She was monitored overnight in ICU, drain was pulled next day and she was mobilized and discharged to home. Active Issues Requiring Follow-up: Test Results Pending at Discharge: Operative Procedures Performed: Procedure(s): right carotid endarterectomy Other Procedures: Pertinent Test Results: Discharge Details Physical Exam at Discharge: Discharge Condition: stable Pulse: 71 Resp: 23 BP: 90/69 Temp: 36.6 ??C (97.9 ??F) Weight: 98.7 kg (217 lb 9.5 oz) Pertinent Exam Findings at Discharge: neuro intact, wound ok Discharge Disposition: Discharge to home or self care Code Status at Discharge: full Discharge Instructions: Activity Instructions Discharge Activity: No lifting or driving; plenty of walking. Discharge Activity: Driving restrictions -Do not drive until after follow up with Dr. Price Discharge Activity: Lifting restrictions -Do NOT lift greater than 10 pounds for 2 weeks. -Do NOT lift anything above your head. Discharge Activity: Out of bed walking -Out of bed walking at least 6-8 times every day -Ask your surgeon before doing any other kind of exercise Discharge Activity: Stairs -You may climb stairs NOW Discharge activity: Activity restrictions -Do not go back to work until your surgeon says it's OK. -Do not jog, run or bike until your surgeon says it's OK. -Do not do any charge account authorizer that cause you to twist, push or pull; such as laundry, vacuuming grocery shopping and childcare. -Do not flex (bring your head to your chest) or extend (lift your chin up high and away from your chest) unless your surgeon says it's OK. -Slowly work up to your normal activities at home with the exceptions as already noted. Diet Instructions Adult Discharge Diet Diet Type: Return to previous diet Other Instructions Discharge Wound Type: Open to air -You may leave your incision open to air after you remove the dressing in 48 hours Call 911 if you have chest pain or shortness of breath Call provider for any of the following: -Temperature greater than 101 degrees F or 38.5 C -You have any drainage from your incision -The skin around your incision is swollen and/or red -The incision starts to separate and open up -Pain medicine, rest or warm packs are not helping your pain -You are having new numbness or weakness -You begin feeling very weak -You are having numbness in your pelvic area -You are not able to control your bladder -You lose control of your bowels -You have constipation for longer than 5 days -You are having a hard time swallowing liquids -You have nausea or vomiting that will not go away -You have any swelling, warm to touch or painful areas in your legs. This needs IMMEDIATE attention. Care Instructions: Incisions -Do not use lotions or creams on your incision -Remove dressing(s) postop day 2 then leave wound(s) open to air Care Instructions: Shower -You may shower postop day 2 with wound covered Care Instructions: Surgical Dressing -Keep wound clean and dry at all times. Use a waterproof dressing while showering. Discharge Wound Type: Stitches/Beto -Stitches/beto will be removed at your next appointment Discharge exercises -Continue the exercises your therapist gave you in the hospital Incentive Spirometry Use your incentive spirometer 10 times every hour while awake for one week. Discharge Medications: Current Medications TAKE these medications ascorbic acid with dee hips 500 mg tablet,chewable Generic drug: ascorbic acid Take 500 mg by mouth nightly aspirin 81 mg enteric coated tablet Take 81 mg by mouth nightly clopidogrel 75 mg tablet Commonly known as: PLAVIX Take 1 tablet by mouth nightly JANUVIA 100 mg tablet Generic drug: SITagliptin Take 1 tablet by mouth nightly levothyroxine 75 mcg tablet Commonly known as: SYNTHROID Take 75 mcg by mouth supervisor shed workers before breakfast losartan 50 mg tablet Commonly known as: COZAAR Take 50 mg by mouth nightly metFORMIN 1,000 mg tablet Commonly known as: GLUCOPHAGE Take 1,000 mg by mouth 2 (two) times a day with meals metoprolol 25 mg tablet Commonly known as: LOPRESSOR Take 25 mg by mouth nightly PARoxetine 20 mg tablet Commonly known as: PAXIL Take 20 mg by mouth 2 (two) times a day simvastatin 40 mg tablet Commonly known as: ZOCOR Take 40 mg by mouth nightly Outpatient Follow-Up: Contact Information for Follow-ups Other Follow-up Next Steps: Follow up Instructions: FOLLOW UP WITH DR. PRICE IN 7-10 DAYS, OR PREVIOUSLY SCHEDULED Questions: Instructions for follow-up (appointment date and time): FOLLOW UP WITH DR. 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 documented in this encounter Medications at Time of Discharge ascorbic acid (VITAMIN C) 500 mg tablet,chewable Take 1 tablet/chew tab (500 mg total) by mouth nightly aspirin 81 mg enteric coated tablet Take 1 tablet (81 mg total) by mouth nightly levothyroxine (SYNTHROID, LEVOTHROID) 75 mcg tablet Take 1 tablet (75 mcg total) by mouth supervisor shed workers before breakfast 3 12/05/2018 metFORMIN (GLUCOPHAGE) 1,000 mg tablet Take 1 tablet (1,000 mg total) by mouth 2 (two) times a day with meals 3 12/05/2018 SITagliptin (JANUVIA) 100 mg tablet Take 1 tablet (100 mg total) by mouth nightly clopidogrel (PLAVIX) 75 mg tablet Take 1 tablet by mouth nightly 1 losartan (COZAAR) 50 mg tablet Take 50 mg by mouth nightly 1 metoprolol (LOPRESSOR) 25 mg tablet Take 100 mg by mouth nightly 0 05/01/2019 1 PARoxetine (PAXIL) 20 mg tablet Take 40 mg by mouth daily 1 simvastatin (ZOCOR) 40 mg tablet Take 40 mg by mouth nightly 2 documented as of this encounter Discharge Disposition Disposition Code Departure Means Destination Discharge to home or self care documented in this encounter Progress Notes * Aparna Sargent, OT - 06/04/2019 2:08 PM CDT Occupational Therapy NOTE / SESSION TYPE: Initial OT Evaluation and Discharge PATIENT'S NAME: Tressa Myers AGE / SEX: 64 y.o. / female [id number] : 1955 DATE: 06/04/19 TIME IN: 14:08 TIME OUT: 14:21 ORDER ACKNOWLEDGED (YES OR NO): Yes Patient Active Problem List Diagnosis ??? CVA (cerebral vascular accident) (CMS/HCC) ??? Carotid atherosclerosis ??? Abnormal CXR ??? Essential hypertension ??? Type 2 diabetes mellitus with circulatory disorder, without long-term current use of insulin (CMS/HCC) ??? Acute cystitis without hematuria ??? Paroxysmal atrial flutter (CMS/HCC) ??? 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 ??? History of [...] septum, probably diastolic dysfunction. LHC (05/07/13) (1) [id number]% narrowings from proximal to distal RCA (2) [...] Left ??? CORONARY ARTERY BYPASS GRAFT ??? OR LIGATE FALLOPIAN TUBE Tubal Ligation - (Added by TW Conv) ??? OR PRQ TRLUML CORONARY STENT W/ANGIO ONE ART/BRNCH Cath Stent Placement - Xience TOM to LCX (04/2013) (Added by TW Conv) ??? TUBAL LIGATION ADDITIONAL SIGNIFICANT MEDICAL INFORMATION: right carotid stenosis s/p right carotid endarterectomy(06/03/2019), left facial droop, acute pulmonary insufficiency PRECAUTIONS (INCLUDING WEIGHT-BEARING): FALL RISK CAREGIVER PRESENT (YES OR NO): NO SUBJECTIVE: I'm going to be discharged soon. THERAPY PAIN: PRE-THERAPY PAIN LEVEL: 4 /10 PAIN LOCATION: Incision on neck and throat PAIN INTERVENTION(S): PAIN MEDICATION ADMINISTERED PRIOR TO SESSION POST-THERAPY PAIN LEVEL: 4 /10 PAIN SCALE USED: 0-10 SCALE PRIOR FUNCTION: LIVES WITH: Alone OTHER SOCIAL SUPPORTS / ASSISTANCE AVAILABLE: supportive family LIVING ENVIRONMENT (TYPE OF RESIDENCE / ENTRANCE ACCESSIBILITY): One story house with 2 steps to enter BATHROOM LOCATION AND SET-UP: Tub/shower PRIOR LEVEL OF FUNCTION: PRIOR TO ADMISSION PATIENT INDEPENDENT WITH: Independent with feeding, grooming, bathing, dressing, toileting, transfers, ambulating, housekeeping, laundry, meal preparation, shopping, financial systems manager, medication management EQUIPMENT OWNED: NONE EQUIPMENT USED: NONE PATIENT / FAMILY GOAL(S): To go home. OBJECTIVE: APPEARANCE: PRESENTATION UPON OT ARRIVAL: PATIENT SITTING IN BEDSIDE CHAIR PRESENTATION UPON OT DEPARTURE: PATIENT SITTING IN BEDSIDE CHAIR BED / CHAIR ALARM IN PLACE AND ACTIVATED UPON OT DEPARTURE: N/A CALL LIGHT WITHIN ARMS REACH OF PATIENT AT END OF SESSION: YES VITAL SIGNS: HEART RATE AT REST: 74 BPM O2 SATS AT REST: 92 % OXYGEN LPM: room air BLOOD PRESSURE AT REST: 121/71 COGNITION / ORIENTATION: PATIENT ORIENTED TO: Person, Place, Time and Situation PATIENT NOT ORIENTED TO: N/A FOLLOWING COMMANDS: Two step commands 100% COMMUNICATION: WFL UE ROM / STRENGTH / COORDINATION: (A)ROM - RIGHT: WFL STRENGTH - RIGHT: 4/5, except shoulder flexion not fully assessed due to incision in neck (A)ROM - LEFT: WFL STRENGTH - LEFT: 4/5 HAND DOMINANCE: Right WELLNESS INSTRUCTOR STRENGTH (RIGHT): good WELLNESS INSTRUCTOR STRENGTH (LEFT): good RIGHT COORDINATION: intact LEFT COORDINATION: intact BALANCE: STATIC SITTING: good, supported, sitting in bedside chair MOBILITY / TRANSFERS: TRANSFER(S): sit to stand from bedside chair/stand to sit to bedside chair-independent LIVING SKILLS: UE DRESSING LOCATION: SITTING IN BEDSIDE CHAIR / RECLINER TASKS COMPLETED: HOSPITAL GOWN ROBE COMPONENTS THAT REQUIRED ASSISTANCE (IF APPLICABLE): NONE OVERALL ASSIST LEVEL: 6 - INDEPENDENT ADDITIONAL DOCUMENTATION: N/A LE DRESSING (UNDERWEAR / PANTS) LOCATION: SITTING IN BEDSIDE CHAIR / RECLINER TASKS COMPLETED: UNDERWEAR COMPONENTS THAT REQUIRED ASSISTANCE (IF APPLICABLE): NONE OVERALL ASSIST LEVEL: 6 - INDEPENDENT ADDITIONAL DOCUMENTATION: N/A PUTTING ON / TAKING OFF FOOTWEAR LOCATION: SITTING IN BEDSIDE CHAIR / RECLINER TASKS COMPLETED: FOOTIE(S) COMPONENTS THAT REQUIRED ASSISTANCE (IF APPLICABLE): NONE OVERALL ASSIST LEVEL: 6 - INDEPENDENT ADDITIONAL DOCUMENTATION: N/A ASSESSMENT: REHAB POTENTIAL (PROGNOSIS): excellent PROBLEM LIST: None BARRIERS TO DISCHARGE: Wound Care PLAN: OT RECOMMENDATIONS: LOCATION: Home SUPERVISION: Independently FREQUENCY OF THERAPY: One time visit INTERVENTIONS / EDUCATION NEEDS: None EDUCATION PROVIDED: ROLE OF OT SHORT TERM GOALS: No goals formulated; One time visit. IF THIS IS THE LAST NOTE, CONSIDER THIS THE DISCHARGE SUMMARY Aparna Sargent OT 06/04/19 2:08 PM * Shira Pickens, PT - 06/04/2019 8:58 AM CDT Physical Therapy INITIAL EVALUATION PATIENT'S NAME:Tressa Myers :1955 AGE:64 y.o. TIME IN: 857 TIME OUT: 929 CURRENT DIAGNOSIS AND HOSPITAL COURSE: Admitted with cc: carotid stenosis. S/p right carotid endarterectomy on 06/03/2019. Patient Active Problem List Diagnosis ??? CVA (cerebral vascular accident) (CMS/HCC) ??? Carotid atherosclerosis ??? Abnormal CXR ??? Essential hypertension ??? Type 2 diabetes mellitus with circulatory disorder, without long-term current use of insulin (CMS/HCC) ??? Acute cystitis without hematuria ??? Paroxysmal atrial flutter (CMS/HCC) ??? 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 ??? History of [...] septum, probably diastolic dysfunction. LHC (05/07/13) (1) [id number]% narrowings from proximal to distal RCA (2) [...] Left ??? CORONARY ARTERY BYPASS GRAFT ??? OR LIGATE FALLOPIAN TUBE Tubal Ligation - (Added by TW Conv) ??? OR PRQ TRLUML CORONARY STENT W/ANGIO ONE ART/[facility] Cath Stent Placement - Xience TOM to LCX (04/2013) (Added by TW Conv) ??? TUBAL LIGATION SUBJECTIVE LIVES WITH: alone LIVING ENVIRONMENT: 1-story home with 2 steps to enter PRIOR LEVEL OF FUNCTION: Independent with all mobility w/o a device EQUIPMENT OWNED: none EQUIPMENT USED: none SOCIAL SUPPORTS: supportive daughter PATIENT/FAMILY GOAL: Plans to return home alone at discharge MENTAL STATUS/ORIENTATION: Alert and oriented x4 OBJECTIVE PRECAUTIONS: Standard precautions APPEARANCE/POSTURE: 64 y/o female sitting in bedside chair with heart monitor, continuous pulse/ox,and purewick in place. VITAL SIGNS: Resting BP: 88/54 Post-activity BP: 128/65 Resting heart rate: 60 bpm Post-activity heart rate: 95 bpm Resting O2 sat: 99% on 4L Post-activity O2 sat: 94% on RA PAIN: Pre-therapy pain level: 12/04 Pain location: Incision and throat Pain intervention: RN made aware Post-therapy pain level/response to intervention: 12/04 LE ASSESSMENTS: Right LE ROM: WFL Left LE ROM: WFL Right LE strength: 5/5 t/o Left LE strength: 5/5 t/o Coordination: [id number] intact bilat Tone: no deficits noted MOBILITY: Bed mobility: NT Transfers: sit to/from stand with mod indep. Ambulation: Distance: 150 ft x 1 Assistive device: no assistive device Level of assist: supervision Deviations: no significant deviations Stairs: NT Balance/Special Tests: Static sitting balance: GOOD Dynamic sitting balance: GOOD Static standing balance: GOOD Dynamic standing balance: GOOD APPEARANCE/POSTURE (end of session): GOOD EDUCATION: PT POC RESPONSE TO EDUCATION: verbalizes understanding ASSESSMENT PROBLEM LIST: Pain BARRIERS TO LEARNING: none BARRIERS TO DISCHARGE: none REHAB POTENTIAL/PROGNOSIS: good PLAN RECOMMENDATIONS: home alone, intermittent assist from family (daughter) TREATMENT PLAN/INTERVENTIONS: Bed mob, transfers, gait training FREQUENCY: 3-5x/week EQUIPMENT RECOMMENDATIONS: none Refer to multi-disciplinary care plan section for PT specific goals. If this is the last note, please consider this the discharge summary. * Lo Lofton NP - 06/04/2019 7:27 AM CDT Surgical ICU Daily Progress Team: Community AM Subjective Patient is a 64 y.o. female admitted on 06/03/2019 5:44 AM with chief complaint of s/p Right CEA Interval History: -brian drain pulled - no swelling to the neck - pt tolerating diet, voiding, and oob ad irish - surgery team plans to dc home this afternoon HPI: 64y/o female with PMH: CAD s/p TOM to LCX(2012) , distal RCA 25% stenosis, Right PDA 50% stenosis, HTN, CVA no residual symptoms, GERD, anxiety, left CEA (12/2018).?She now presents to the ICU S/P Right CEA 2/2 known R carotid high grade asymptomatic stenosis. She is awake alert and orientated. She has a slight facial ??droop on left. Dr Price made aware. SBP goals <??120 off Nicardipine, will continue to monitor. ?? Hospital Course 06/03: R CEA with Dr. Price (NS) Objective Physical Exam: Neuro: awake, alert, oriented, maee Cards; s1s2 RRR Pulm: CTA zaire GI: soft, nt/nd : voids Ext: warm Drains: BRIAN to the left neck with minimal output Skin: right neck incision, clean, dry, open to air Medications Scheduled Meds: aspirin 81 mg oral Nightly clopidogrel 75 mg oral Nightly famotidine 20 mg oral BID insulin lispro 1-3 Units subcutaneous Nightly insulin lispro 1-3 Units subcutaneous Q24H insulin lispro 1-5 Units subcutaneous TID with meals levothyroxine 75 mcg oral Daily - 0600 PARoxetine 20 mg oral BID simvastatin 40 mg oral Nightly sodium chloride 0.9% 0.5-20 mL intra-catheter Q8H SARAH Continuous Infusions: Lactated Ringer's 30 mL/hr Last Rate: 30 mL/hr (06/04/19 0610) PRN Meds:.dextrose OR dextrose ??? glucagon ??? HYDROcodone-acetaminophen ??? ondansetron ODT OR ondansetron ??? sodium chloride 0.9% Vital signs for last 24 hours: Temp: [36.6 ??C (97.9 ??F)-37.4 ??C (99.4 ??F)] 37.1 ??C (98.8 ??F) Pulse: [53-91] 59 BP: (96-117)/(46-66) 108/61 Resp: [5-25] 18 SpO2: [86 %-100 %] 99 % Arterial Line BP: (85-138)/(32-119) 105/78 Hemodynamics: MAP (mmHg): [66-82] 77 Pulmonary Support: O2 Therapy: Supplemental oxygen O2 Del Method: Nasal cannula O2 Flow Rate (L/min): 2 L/min Intake/Output: Intake/Output Summary (Last 24 hours) at 06/04/2019726 Last data filed at 06/04/2019 0610 Gross per 24 hour Intake 4284 ml Output 1607 ml Net 2677 ml Lab/Radiology/Diagnostic Review: Laboratory review: Lab results in the last 12 hours: Recent Results (from the past 12 hour(s)) POCT glucose Collection Time: 06/03/19 9:17 PM Result Value Ref Range Glucose, POC 151 70 - 199 mg/dL POCT glucose Collection Time: 06/04/19 1:50 AM Result Value Ref Range Glucose, POC 151 70 - 199 mg/dL Basic metabolic panel Collection Time: 06/04/19 3:08 AM Result Value Ref Range Sodium 141 135 - 145 mmol/L Potassium, pl 4.0 3.3 - 4.9 mmol/L Chloride 108 97 - 110 mmol/L CO2 24 22 - 32 mmol/L Anion gap 9 2 - 15 mmol/L BUN 10 8 - 25 mg/dL Creatinine 0.39 (L) 0.60 - 1.10 mg/dL Glucose 130 70 - 199 mg/dL Calcium 8.5 8.5 - 10.3 mg/dL CBC without differential Collection Time: 06/04/19 3:08 AM Result Value Ref Range WBC 8.4 3.8 - 9.9 K/cumm Hgb 11.8 (L) 11.9 - 15.5 g/dL Hct 37.0 35.6 - 45.5 % Plt 239 150 - 400 K/cumm MPV 10.4 9.1 - 12.3 fL RBC 3.82 (L) 3.90 - 5.20 M/cumm MCV 96.9 (H) 81.3 - 96.4 fL MCH 30.9 27.1 - 33.3 pg MCHC 31.9 (L) 32.3 - 35.7 g/dL RDW CV 12.1 11.1 - 14.9 % RDW SD 43.5 35.7 - 48.1 fL NRBC abs 0.00 0.00 - 0.01 K/cumm Phosphorus Collection Time: 06/04/19 3:08 AM Result Value Ref Range Phosphorus, pl 3.3 2.3 - 4.5 mg/dL Magnesium Collection Time: 06/04/19 3:08 AM Result Value Ref Range Magnesium 1.6 1.4 - 2.5 mg/dL eGFR Collection Time: 06/04/19 3:08 AM Result Value Ref Range GFR 111 mL/min/1.73 m2 POCT glucose Collection Time: 06/04/19 7:29 AM Result Value Ref Range Glucose, POC 124 70 - 199 mg/dL Recent Results (from the past 24 hour(s)) POCT glucose Collection Time: 06/03/19 8:15 AM Result Value Ref Range Glucose, POC 163 70 - 199 mg/dL POCT glucose Collection Time: 06/03/19 10:56 AM Result Value Ref Range Glucose, POC 138 70 - 199 mg/dL POCT glucose Collection Time: 06/03/19 1:38 PM Result Value Ref Range Glucose, POC 176 70 - 199 mg/dL CBC with auto differential Collection Time: 06/03/19 1:59 PM Result Value Ref Range WBC 8.3 3.8 - 9.9 K/cumm Hgb 12.4 11.9 - 15.5 g/dL Hct 37.4 35.6 - 45.5 % Plt 242 150 - 400 K/cumm MPV 10.3 9.1 - 12.3 fL RBC 3.92 3.90 - 5.20 M/cumm MCV 95.4 81.3 - 96.4 fL MCH 31.6 27.1 - 33.3 pg MCHC 33.2 32.3 - 35.7 g/dL RDW CV 12.2 11.1 - 14.9 % RDW SD 42.5 35.7 - 48.1 fL NRBC abs 0.00 0.00 - 0.01 K/cumm Basic metabolic panel Collection Time: 06/03/19 1:59 PM Result Value Ref Range Sodium 140 135 - 145 mmol/L Potassium, pl 4.6 3.3 - 4.9 mmol/L Chloride 109 97 - 110 mmol/L CO2 20 (L) 22 - 32 mmol/L Anion gap 11 2 - 15 mmol/L BUN 18 8 - 25 mg/dL Creatinine 0.48 (L) 0.60 - 1.10 mg/dL Glucose 180 70 - 199 mg/dL Calcium 8.4 (L) 8.5 - 10.3 mg/dL Magnesium Collection Time: 06/03/19 1:59 PM Result Value Ref Range Magnesium 1.3 (L) 1.4 - 2.5 mg/dL Phosphorus Collection Time: 06/03/19 1:59 PM Result Value Ref Range Phosphorus, pl 3.6 2.3 - 4.5 mg/dL Lactate Collection Time: 06/03/19 1:59 PM Result Value Ref Range Lactate 1.2 0.7 - 2.0 mmol/L Protime-INR Collection Time: 06/03/19 1:59 PM Result Value Ref Range PT 13.3 (H) 9.5 - 13.0 sec INR 1.14 0.90 - 1.20 Differential, auto Collection Time: 06/03/19 1:59 PM Result Value Ref Range Neutrophil abs 7.4 (H) 1.7 - 6.5 K/cumm Imm gran abs 0.0 0.0 - 0.1 K/cumm Lymphocyte abs 0.7 (L) 0.8 - 3.3 K/cumm Monocyte abs 0.2 0.2 - 0.8 K/cumm Eosinophil abs 0.0 0.0 - 0.5 K/cumm Basophil abs 0.0 0.0 - 0.1 K/cumm Neutrophil pct 88.6 % Imm gran pct 0.5 % Lymphocyte pct 8.4 % Monocyte pct 2.0 % Eosinophil pct 0.1 % Basophil pct 0.4 % eGFR Collection Time: 06/03/19 1:59 PM Result Value Ref Range GFR 104 mL/min/1.73 m2 POCT glucose Collection Time: 06/03/19 9:17 PM Result Value Ref Range Glucose, POC 151 70 - 199 mg/dL POCT glucose Collection Time: 06/04/19 1:50 AM Result Value Ref Range Glucose, POC 151 70 - 199 mg/dL Basic metabolic panel Collection Time: 06/04/19 3:08 AM Result Value Ref Range Sodium 141 135 - 145 mmol/L Potassium, pl 4.0 3.3 - 4.9 mmol/L Chloride 108 97 - 110 mmol/L CO2 24 22 - 32 mmol/L Anion gap 9 2 - 15 mmol/L BUN 10 8 - 25 mg/dL Creatinine 0.39 (L) 0.60 - 1.10 mg/dL Glucose 130 70 - 199 mg/dL Calcium 8.5 8.5 - 10.3 mg/dL CBC without differential Collection Time: 06/04/19 3:08 AM Result Value Ref Range WBC 8.4 3.8 - 9.9 K/cumm Hgb 11.8 (L) 11.9 - 15.5 g/dL Hct 37.0 35.6 - 45.5 % Plt 239 150 - 400 K/cumm MPV 10.4 9.1 - 12.3 fL RBC 3.82 (L) 3.90 - 5.20 M/cumm MCV 96.9 (H) 81.3 - 96.4 fL MCH 30.9 27.1 - 33.3 pg MCHC 31.9 (L) 32.3 - 35.7 g/dL RDW CV 12.1 11.1 - 14.9 % RDW SD 43.5 35.7 - 48.1 fL NRBC abs 0.00 0.00 - 0.01 K/cumm Phosphorus Collection Time: 06/04/19 3:08 AM Result Value Ref Range Phosphorus, pl 3.3 2.3 - 4.5 mg/dL Magnesium Collection Time: 06/04/19 3:08 AM Result Value Ref Range Magnesium 1.6 1.4 - 2.5 mg/dL eGFR Collection Time: 06/04/19 3:08 AM Result Value Ref Range GFR 111 mL/min/1.73 m2 No results found. 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 # High grade right??asymptomatic stenosis - S/P Right CEA by Dr. Price ([facility] [place]) on 06/03 - neuro checks q4 hrs, monitor phonation, monitor Left facial droop (NSGY aware) - SBP goal <120 MAP >65 hold anti-HTN meds until SBP allows - monitor BRIAN drain output - ASA, Plavix ?? # anxiety / depression: continue home paxil ?? CV: # HLD: continue home statin ?? Pulmonary: # Acute pulmonary insufficiency: likely 2/2 undiagnosed COPD/asthma. Previous smoker. No home nebs 2/2 no insurance - SpO2 goal > 92% - IS, OOB ?? GI: Diet: tolerating diet well, ADAT Bowel regimen: ?? # GERD- Pepcid ?? Endo: Glycemic control - SSI ?? # Hypothyroidism: continue home synthroid ?? Renal -??monitor renal function, electrolytes ,and UOP?? - Electrolyte abnormality Replace PRN - IVF 30ml/hr LR ?? Cr Lab Results Component Value Date CREATININE 0.39 (L) 06/04/2019 HEME: # Anemia Lab Results Component Value Date HGB 11.8 (L) 06/04/2019 -No s/s bleeding, no indication for transfusion, continue to monitor closely DVT PPX: SCD's -f/u with surgery secondary to chemodvt prophy ID: Lab Results Component Value Date WBC 8.4 06/04/2019 Antibiotics:none Cultures:n/a Intensive Care Unit Standards of Care: Restraints:n/a DVT prophylaxis: scd/ambulation Vascular access: piv Goals of care:full Community AM Assessment and plan has been reviewed with attending, Dr. Delmar Lofton, [facility]- * Mady Castellanos PA - 06/03/2019 6:58 PM CDT Critical Care Medicine Daily Progress Team: Community PM Subjective Patient is a 64 y.o. y/o female admitted on 06/03/2019 5:44 AM with the following indication(s) for ICU care s/p R CEA. Interval History: - Pain control - Sleep hygiene HPI: 64y/o female with PMH: CAD s/p TOM to LCX(2012) , distal RCA 25% stenosis, Right PDA 50% stenosis, HTN, CVA no residual symptoms, GERD, anxiety, left CEA (12/2018). ??She now presents to the ICU S/P Right CEA 2/2 known R carotid high grade asymptomatic stenosis. She is awake alert and orientated. She has a slight facial droop on left. Dr Price made aware. SBP goals < 120 off Nicardipine, will continue to monitor. Hospital Course 06/03: R CEA with Dr. Price ([facility] [place]) Scheduled Medications: aspirin 81 mg oral Nightly clopidogrel 75 mg oral Nightly famotidine 20 mg oral BID insulin lispro 1-3 Units subcutaneous Nightly [START ON 06/04/2019] insulin lispro 1-3 Units subcutaneous Q24H insulin lispro 1-5 Units subcutaneous TID with meals [START ON 06/04/2019] levothyroxine 75 mcg oral Daily - 0600 PARoxetine 20 mg oral BID simvastatin 40 mg oral Nightly sodium chloride 0.9% 0.5-20 mL intra-catheter Q8H SARAH Continuous Medications: Lactated Ringer's 30 mL/hr Last Rate: 30 mL/hr (06/03/19 1800) PRN Medications: dextrose OR dextrose ??? glucagon ??? HYDROcodone-acetaminophen ??? ondansetron ODT OR ondansetron ??? sodium chloride 0.9% Objective Vitals: Most Recent: Vitals: 06/03/19 1800 BP: Pulse: 79 Resp: 19 Temp: SpO2: 91% 24hr Min/Max: Temp Min: 36.5 ??C (97.7 ??F) Max: 37.4 ??C (99.4 ??F) Pulse Min: 53 Max: 91 BP Min: 98/51 Max: 115/70 Resp Min: 5 Max: 25 SpO2 Min: 86 % Max: 100 % LDA: Arterial Line 06/03/19 Left Radial (Active) Placement Date/Time: 06/03/19 (c) 0817 Size: 20 G Orientation: Left Location: Radial Securement Method: Taped;Transparent dressing Number of days: 0 Closed/Suction Drain 1 Right Neck Bulb 10 Fr. (Active) Placement Date/Time: 06/03/19 1012 Present on Hospital Admission: No Inserted by: Dr. Zan Price Tube Number: 1 Orientation: Right Location: Neck Drain Tube Type: Bulb Size (Fr.): 10 Fr. Number of days: 0 Vent settings: Hemodynamic parameters for last 24 hours: I/O: Date 06/02/19699 - 06/03/19 0659(Not Admitted) 06/03/19 07 - 06/04/19 0659 Shift [id number] 9537-9894 24 Hour Total 4159-8065 9084-8952 24 Hour Total INTAKE P.O. 480 480 I.V. 2626(26.3) 2626(26.3) Shift Total(mL/kg) 3106(31.1) 3106(31.1) OUTPUT Urine 325 325 Drains 25 25 Shift Total(mL/kg) 350(3.5) 350(3.5) NET 2756 2756 Weight (kg) 99.8 99.8 99.8 99.8 99.8 Physical Exam: Gen: NAD Neuro: A&Ox4, follows commands, MAEW HEENT: mild left facial droop CV: S1 and S2, RRR Pulm: LCTA, respirations even/unlabored GI: Abdomen obese, Soft/NT/ND, hypoactive bowel sounds : no catheter Skin: Warm, dry Wounds: R neck with clean dressing overtop Drains: BRIAN drain to R neck with serosanguinous output Access: Left radial art line, PIVs Lab/Radiology/Diagnostic Review: Laboratory review: Lab results in the last 24 hours: Recent Results (from the past 24 hour(s)) POCT glucose Collection Time: 06/03/19 6:13 AM Result Value Ref Range Glucose, POC 142 70 - 199 mg/dL Glucose comment 1 RN/MD Notified POCT glucose Collection Time: 06/03/19 8:15 AM Result Value Ref Range Glucose, POC 163 70 - 199 mg/dL POCT glucose Collection Time: 06/03/19 10:56 AM Result Value Ref Range Glucose, POC 138 70 - 199 mg/dL POCT glucose Collection Time: 06/03/19 1:38 PM Result Value Ref Range Glucose, POC 176 70 - 199 mg/dL CBC with auto differential Collection Time: 06/03/19 1:59 PM Result Value Ref Range WBC 8.3 3.8 - 9.9 K/cumm Hgb 12.4 11.9 - 15.5 g/dL Hct 37.4 35.6 - 45.5 % Plt 242 150 - 400 K/cumm MPV 10.3 9.1 - 12.3 fL RBC 3.92 3.90 - 5.20 M/cumm MCV 95.4 81.3 - 96.4 fL MCH 31.6 27.1 - 33.3 pg MCHC 33.2 32.3 - 35.7 g/dL RDW CV 12.2 11.1 - 14.9 % RDW SD 42.5 35.7 - 48.1 fL NRBC abs 0.00 0.00 - 0.01 K/cumm Basic metabolic panel Collection Time: 06/03/19 1:59 PM Result Value Ref Range Sodium 140 135 - 145 mmol/L Potassium, pl 4.6 3.3 - 4.9 mmol/L Chloride 109 97 - 110 mmol/L CO2 20 (L) 22 - 32 mmol/L Anion gap 11 2 - 15 mmol/L BUN 18 8 - 25 mg/dL Creatinine 0.48 (L) 0.60 - 1.10 mg/dL Glucose 180 70 - 199 mg/dL Calcium 8.4 (L) 8.5 - 10.3 mg/dL Magnesium Collection Time: 06/03/19 1:59 PM Result Value Ref Range Magnesium 1.3 (L) 1.4 - 2.5 mg/dL Phosphorus Collection Time: 06/03/19 1:59 PM Result Value Ref Range Phosphorus, pl 3.6 2.3 - 4.5 mg/dL Lactate Collection Time: 06/03/19 1:59 PM Result Value Ref Range Lactate 1.2 0.7 - 2.0 mmol/L Protime-INR Collection Time: 06/03/19 1:59 PM Result Value Ref Range PT 13.3 (H) 9.5 - 13.0 sec INR 1.14 0.90 - 1.20 Differential, auto Collection Time: 06/03/19 1:59 PM Result Value Ref Range Neutrophil abs 7.4 (H) 1.7 - 6.5 K/cumm Imm gran abs 0.0 0.0 - 0.1 K/cumm Lymphocyte abs 0.7 (L) 0.8 - 3.3 K/cumm Monocyte abs 0.2 0.2 - 0.8 K/cumm Eosinophil abs 0.0 0.0 - 0.5 K/cumm Basophil abs 0.0 0.0 - 0.1 K/cumm Neutrophil pct 88.6 % Imm gran pct 0.5 % Lymphocyte pct 8.4 % Monocyte pct 2.0 % Eosinophil pct 0.1 % Basophil pct 0.4 % eGFR Collection Time: 06/03/19 1:59 PM Result Value Ref Range GFR 104 mL/min/1.73 m2 Imaging review: I have reviewed the result(s) imaging No results found. Plan: Neuro: # Acute pain: - pain control , [place] PRN # High grade right asymptomatic stenosis - S/P Right CEA by Dr. Price (NS) on 06/03 - neuro checks q4 hrs, monitor phonation, monitor Left facial droop (NSGY aware) - SBP goal <120 MAP >65 hold anti-HTN meds until SBP allows - monitor BRIAN drain output - ASA, Plavix # anxiety / depression: continue home paxil CV: # HLD: continue home statin Pulmonary: # Acute pulmonary insufficiency: likely 2/2 undiagnosed COPD/asthma. Previous smoker. No home nebs 2/2 no insurance - SpO2 goal > 92% - IS, OOB GI: Diet: ADAT Bowel regimen: # GERD- Pepcid Endo: Glycemic control - SSI # Hypothyroidism: continue home synthroid Renal - monitor renal function, electrolytes ,and UOP - Electrolyte abnormality Replace PRN - IVF 30ml/hr LR Heme: - H&H 12.4/37.4 PLT 242 INR 1.14 , CBC in AM. Monitor BRIAN drain - DVT PPX: SCD's , start Chemical PPX tomorrow ID: WBC: 8.3 Cultures: N/a ICU standards of care: Restraints: n/a Physical therapy/Activity: pt/ot, oob Access: art line, PIVs Goals of care: Full code LATRELL Mcneill Cosigned by Evans Rodriguez MD at 06/04/2019 5:46 PM CDT documented in this encounter H&P Notes * Zan Price MD - 06/02/2019 6:43 PM CDT History and Physical Subjective Patient is a 64 y.o. female with chief complaint of carotid stenosis. HPI: 4m s/p L CLAU for symptomatic stenosis. Since then may have had an amaurosis postop, now resolved onleft. However, she may have had an amaurosis even on right at this point. Known R carotid high grade asymptomatic stenosis. Past Medical History: Diagnosis Date ??? Anxiety [...] septum, probably diastolic dysfunction. [facility] (05/07/13) (1) [id number]% narrowings from proximal to distal RCA (2) [...] Left ??? CORONARY ARTERY BYPASS GRAFT ??? OR LIGATE FALLOPIAN TUBE Tubal Ligation - (Added by TW Conv) ??? OR PRQ TRLUML CORONARY STENT W/ANGIO ONE ART/BRNC Cath Stent Placement - Xience TOM to LCX (04/2013) (Added by TW Conv) ??? TUBAL LIGATION HOME MEDICATIONS : ascorbic acid (ascorbic acid with dee hips) 500 mg tablet,chewable aspirin 81 mg enteric coated tablet clopidogrel (PLAVIX) 75 mg tablet levothyroxine (SYNTHROID, LEVOTHROID) 75 mcg tablet losartan (COZAAR) 50 mg tablet metFORMIN (GLUCOPHAGE) 1,000 mg tablet metoprolol (LOPRESSOR) 25 mg tablet PARoxetine (PAXIL) 20 mg tablet simvastatin (ZOCOR) 40 mg tablet SITagliptin (JANUVIA) 100 mg tablet Allergies Allergen Reactions ??? Cefazolin Rash and Wheezing ??? Lisinopril Cough Social History Tobacco Use ??? Smoking status: Former Smoker Packs/day: 0.25 Types: Cigarettes ??? Smokeless tobacco: Never Used ??? Tobacco comment: history of 2ppd for 30yrs prior to cutting back. Substance Use Topics ??? Alcohol use: Not Currently Frequency: Never Comment: occasionally. Family History Problem Relation Age of Onset ??? Coronary artery disease Mother Family history of coronary artery disease - Premature CAD (Added by TW Conv) ??? Heart disease Mother ??? Coronary artery disease Other Family history of coronary artery disease - Premature CAD (Added by TW Conv) Review of Systems Review of systems per HPI and otherwise all systems are negative Vitals: Arrival Vitals Temp Pulse Resp BP SpO2 Temp src Heart Rate Source Patient Position BP Location FiO2 (%) Objective Physical exam: HEENT NC/AT H reg L clear A soft Neuro A&Ox3, CN intact, speech fluent, M 5/5 x4, S GWNL x4, DTR unremarkable Imaging Review: Imaging review: I have independently examined the DSA image(s). My findings are high grade R carotid stenosis. Assessment /Plan R CEA. R/b/a discussed. A1C high, but stenosis possibly symptomatic and very high grade, s/w anesthesia, will proceed. REVIEWED, UPDATED, NO CHANGES. Zan Price MD 06/03/19 7:06 AM documented in this encounter Procedure Notes * Lo Lofton NP - 06/04/2019 7:27 AM CDTAssociated Order(s): Critical Care Post-Procedure Diagnose(s): Bilateral carotid artery occlusion; History of CEA (carotid endarterectomy) Critical Care Performed by: Lo Lofton NP Authorized by: Lo Lofton NP CRITICAL CARE: Team: BLAS Shift: AM Level of Billing: Subsequent Hospital Visit Level 3 My time spent with this patient was 35 minutes: Critical Provider Statement: I have seen and examined the patient on this day of service. I have reviewed and confirmed the history, physical exam, laboratory, and radiographic data as documented in the ICU note. I have reviewed and discussed my treatment plan with the patient's team and other medical/universal branch consultant staff. This time was in addition to and separate from care provided by other practitioners on this day of service. I spent time reviewing and interpreting data from bedside monitors, laboratory results, and imaging, I spent time discussing the management of this critically ill patient with consultants and the medical staff and I spent time documenting in the medical record Cosigned by Alicia Jacobsen MD at 06/04/2019 6:13 PM CDT * Mady Castellanos PA - 06/03/2019 6:58 PM CDTAssociated Order(s): Critical Care Post-Procedure Diagnose(s): Bilateral carotid artery occlusion Critical Care Performed by: LATRELL Mcneill Authorized by: LATRELL Mcneill CRITICAL CARE: Team: EDD Shift: PM Level of Billing: Subsequent Hospital Visit Level 3 My time spent with this patient was 65 minutes: Critical Provider Statement: I have seen and examined the patient on this day of service. I have reviewed and confirmed the history, physical exam, laboratory, and radiographic data as documented in the ICU note. I have reviewed and discussed my treatment plan with the patient's team and other medical/universal branch consultant staff. This time was in addition to and separate from care provided by other practitioners on this day of service. Cosigned by Evans Rodriguez MD at 06/04/2019 5:46 PM CDT * Do Bernstein NP - 06/03/2019 4:35 PM CDTAssociated Order(s): Critical Care Post-Procedure Diagnose(s): Bilateral carotid artery occlusion Critical Care Performed by: Do Bernstein NP Authorized by: Do Bernstein NP CRITICAL CARE: Team: EDD Shift: AM Level of Billing: Initial Hospital Visit Level 3 My time spent with this patient was 90 minutes: Critical Provider Statement: I have seen and examined the patient on this day of service. I have reviewed and confirmed the history, physical exam, laboratory, and radiographic data as documented in the ICU note. I have reviewed and discussed my treatment plan with the patient's team and other medical/universal branch consultant staff. This time was in addition to and separate from care provided by other practitioners on this day of service. Acute pain/acute postoperative pain Hypotension This time was spent by me doing the following: Acute pain control and Frequent neurologic exams Incentive spirometry, pulmonary toilet Active repletion of electrolytes I spent time reviewing and interpreting data from bedside monitors, laboratory results, and imaging, I spent time discussing the management of this critically ill patient with consultants and the medical staff and I spent time documenting in the medical record Cosigned by Alicia Jacobsen MD at 06/04/2019 8:29 AM CDT documented in this encounter Consult Notes * Do Bernstein NP - 06/03/2019 1:45 PM CDT [facility] Critical Care Medicine Daily Progress Team: Community Reason for Consult: Post op management S/P Right CEA Requesting Provider: Dr Price Subjective Patient is a 64 y.o. female with chief complaint of high grade asymptomatic stenosis HPI: 64y/o female with PMH: CAD s/p TOM to LCX(2012) , distal RCA 25% stenosis, Right PDA 50% stenosis, HTN, CVA no residual symptoms, GERD, anxiety, left CEA (12/2018). She now presents to the ICU S/P Right CEA 2/2 known R carotid high grade asymptomatic stenosis. She is awake alert and orientated. She has a slight facial droop on left. Dr Price made aware. SB/P goals < 120 off Nicardipine , will continue to monitor. Past Medical History: Diagnosis Date ??? Anxiety [...] distal septum, probably diastolic dysfunction. [facility] (05/07/13) (1) [id number]% narrowings from proximal to distal RCA (2) [...] Left ??? CORONARY ARTERY BYPASS GRAFT ??? OR LIGATE FALLOPIAN TUBE Tubal Ligation - (Added by TW Conv) ??? OR PRQ TRLUML CORONARY STENT W/ANGIO ONE ART/BRNCH Cath Stent Placement - Xience TOM to LCX (04/2013) (Added by TW Conv) ??? TUBAL LIGATION Allergies Allergen Reactions ??? Cefazolin Rash and Wheezing ??? Lisinopril Cough Social History Tobacco Use ??? Smoking status: Former Smoker Packs/day: 0.25 Types: Cigarettes ??? Smokeless tobacco: Never Used ??? Tobacco comment: history of 2ppd for 30yrs prior to cutting back. Substance Use Topics ??? Alcohol use: Not Currently Frequency: Never Comment: occasionally. Family History Problem Relation Age of Onset ??? Coronary artery disease Mother Family history of coronary artery disease - Premature CAD (Added by TW Conv) ??? Heart disease Mother ??? Coronary artery disease Other Family history of coronary artery disease - Premature CAD (Added by TW Conv) HOME MEDICATIONS : ascorbic acid (ascorbic acid with dee hips) 500 mg tablet,chewable aspirin 81 mg enteric coated tablet clopidogrel (PLAVIX) 75 mg tablet levothyroxine (SYNTHROID, LEVOTHROID) 75 mcg tablet losartan (COZAAR) 50 mg tablet metFORMIN (GLUCOPHAGE) 1,000 mg tablet metoprolol (LOPRESSOR) 25 mg tablet PARoxetine (PAXIL) 20 mg tablet simvastatin (ZOCOR) 40 mg tablet SITagliptin (JANUVIA) 100 mg tablet Medications: Medications Prior to Admission Medication Sig Dispense Refill Last Dose ??? ascorbic acid (ascorbic acid with dee hips) 500 mg tablet,chewable Take 500 mg by mouth nightly 06/02/2019 at Unknown time ??? aspirin 81 mg enteric coated tablet Take 81 mg by mouth nightly 06/02/2019 at Unknown time ??? clopidogrel (PLAVIX) 75 mg tablet Take 1 tablet by mouth nightly 06/02/2019 at Unknown time ??? 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 losartan (COZAAR) 50 mg tablet Take 50 mg by mouth nightly 06/02/2019 at Unknown time ??? metFORMIN (GLUCOPHAGE) 1,000 mg tablet Take 1,000 mg by mouth 2 (two) times a day with meals 3 06/02/2019 at Unknown time ??? metoprolol (LOPRESSOR) 25 mg tablet Take 25 mg by mouth nightly 0 06/02/2019 at Unknown time ??? PARoxetine (PAXIL) 20 mg tablet Take 20 mg by mouth 2 (two) times a day 06/02/2019 at Unknown time ??? simvastatin (ZOCOR) 40 mg tablet Take 40 mg by mouth nightly 06/02/2019 at Unknown time ??? SITagliptin (JANUVIA) 100 mg tablet Take 1 tablet by mouth nightly 06/02/2019 at Unknown time Scheduled Medications Medication Dose Route Frequency ??? aspirin enteric coated tablet 81 mg 81 mg oral Nightly ??? calcium gluconate 2 g in sodium chloride 0.9% 100 mL IVPB 2 g intravenous Once ??? clopidogrel (PLAVIX) tablet 75 mg 75 mg oral Nightly ??? famotidine (PEPCID) tablet 20 mg 20 mg oral BID ??? insulin lispro (HumaLOG) injection 1-3 Units 1-3 Units subcutaneous Nightly ??? [START ON 06/04/2019] insulin lispro (HumaLOG) injection 1-3 Units 1-3 Units subcutaneous Q24H ??? insulin lispro (HumaLOG) injection 1-5 Units 1-5 Units subcutaneous TID with meals ??? [START ON 06/04/2019] levothyroxine (SYNTHROID) tablet 75 mcg 75 mcg oral Daily - 0600 ??? losartan (COZAAR) tablet 50 mg 50 mg oral Nightly ??? magnesium sulfate 2 g/50 mL in water (premix) 2 g 2 g intravenous Once ??? metFORMIN (GLUCOPHAGE) tablet 1,000 mg 1,000 mg oral BID with meals (bkfst, dinner) ??? metoprolol (LOPRESSOR) tablet 25 mg 25 mg oral Nightly ??? PARoxetine (PAXIL) tablet 20 mg 20 mg oral BID ??? simvastatin (ZOCOR) tablet 40 mg 40 mg oral Nightly ??? sodium chloride 0.9% flush 0.5-20 mL 0.5-20 mL intra-catheter Q8H SARAH Continuous Medications: Current Facility-Administered Medications Medication Dose Route Frequency Last Dose ??? Lactated Ringer's 30 mL/hr intravenous Continuous 30 mL/hr at 06/03/19 1427 ??? niCARdipine 0.5-2.5 mcg/kg/min intravenous Titrated Stopped at 06/03/19 1143 PRN Medications: dextrose, 15 g OR dextrose, 250 mL ??? glucagon, 1 mg ??? HYDROcodone-acetaminophen, 1 tablet, 1 tablet at 06/03/19 1427 ??? ondansetron ODT, 4 mg OR ondansetron, 4 mg ??? sodium chloride 0.9%, 0.5-20 mL Review of Systems: Constitutional: No fevers, normal appetite, normal activity level, no significant weight change. Eyes: No redness or jaundice. Head, Ears, Nose, Throat: No rhinorrhea, congestion, ear ache, + sore throat, or oral lesions. Respiratory: No cough, shortness of breath, wheeze, or tachypnea. Cardiovascular: No chest pain, palpitation, or syncope. Gastroenterology: No abdominal pain, nausea, emesis, constipation, or diarrhea. Female: Adequate urine output. No dysuria or hematuria. Musculoskeletal: No joint pain or swelling. No extremity pain. Skin: No rashes or pallor. Heme: No bruising or petechiae. Neuro: No headache, + visual changes, or paresthesias. Denies weakness. Psychiatry: awake and alert, cooperative Objective Vitals: Arrival Vitals Temp 06/03/19 0637 36.5 ??C (97.7 ??F) Pulse 06/03/19 0637 77 Resp 06/03/19 0637 16 BP 06/03/19 0637 115/70 SpO2 06/03/19 0637 95 % Temp src 06/03/19 1107 Tympanic Heart Rate Source 06/03/19 1107 Monitor Patient Position -- BP Location -- FiO2 (%) -- 24hr Min/Max: Temp Min: 36.5 ??C (97.7 ??F) Max: 37.4 ??C (99.4 ??F) Pulse Min: 61 Max: 91 BP Min: 98/51 Max: 115/70 Resp Min: 5 Max: 22 SpO2 Min: 90 % Max: 100 % Current Vitals: BP 98/51 Pulse 69 Temp 36.7 ??C (98 ??F) (Oral) Resp 8 Ht 165.1 cm (5' 5 ) Wt 99.8 kg (220 lb) SpO2 96% BMI 36.61 kg/m?? Intake/Output: No intake/output data recorded. I/O this shift: In: 1800 [I.V.:1800] Out: - LDA: Arterial Line 06/03/19 Left Radial (Active) Placement Date/Time: 06/03/19 (c) 816 Size: 20 G Orientation: Left Location: Radial Securement Method: Taped;Transparent dressing Number of days: 0 Closed/Suction Drain 1 Right Neck Bulb 10 Fr. (Active) Placement Date/Time: 06/03/19 1012 Present on Hospital Admission: No Inserted by: Dr. Zan Price Tube Number: 1 Orientation: Right Location: Neck Drain Tube Type: Bulb Size (Fr.): 10 Fr. Number of days: 0 Physical Exam: Neuro: awake, alert, orientedx 4, CAM (-), moves all extremities, left facial droop, no voice changes Cardiac: RRR, S1 S2, periphery warm, pulses palpable distally Pulm: lungs clear bilaterally GI: abdomen round, soft, nontender, hypoactive bowel sounds : voiding without difficulty Skin: [place], warm, dry, right carotid incision covered w/ OR dressing intact, BRIAN drain to bulb SXN Lab/Radiology/Diagnostic Review: Laboratory review: reviewed the laboratory result(s) and Lab results in the last 12 hours: Recent Results (from the past 12 hour(s)) POCT glucose Collection Time: 06/03/19 6:13 AM Result Value Ref Range Glucose, POC 142 70 - 199 mg/dL Glucose comment 1 RN/MD Notified POCT glucose Collection Time: 06/03/19 8:15 AM Result Value Ref Range Glucose, POC 163 70 - 199 mg/dL POCT glucose Collection Time: 06/03/19 10:56 AM Result Value Ref Range Glucose, POC 138 70 - 199 mg/dL POCT glucose Collection Time: 06/03/19 1:38 PM Result Value Ref Range Glucose, POC 176 70 - 199 mg/dL CBC with auto differential Collection Time: 06/03/19 1:59 PM Result Value Ref Range WBC 8.3 3.8 - 9.9 K/cumm Hgb 12.4 11.9 - 15.5 g/dL Hct 37.4 35.6 - 45.5 % Plt 242 150 - 400 K/cumm MPV 10.3 9.1 - 12.3 fL RBC 3.92 3.90 - 5.20 M/cumm MCV 95.4 81.3 - 96.4 fL MCH 31.6 27.1 - 33.3 pg MCHC 33.2 32.3 - 35.7 g/dL RDW CV 12.2 11.1 - 14.9 % RDW SD 42.5 35.7 - 48.1 fL NRBC abs 0.00 0.00 - 0.01 K/cumm Basic metabolic panel Collection Time: 06/03/19 1:59 PM Result Value Ref Range Sodium 140 135 - 145 mmol/L Potassium, pl 4.6 3.3 - 4.9 mmol/L Chloride 109 97 - 110 mmol/L CO2 20 (L) 22 - 32 mmol/L Anion gap 11 2 - 15 mmol/L BUN 18 8 - 25 mg/dL Creatinine 0.48 (L) 0.60 - 1.10 mg/dL Glucose 180 70 - 199 mg/dL Calcium 8.4 (L) 8.5 - 10.3 mg/dL Magnesium Collection Time: 06/03/19 1:59 PM Result Value Ref Range Magnesium 1.3 (L) 1.4 - 2.5 mg/dL Phosphorus Collection Time: 06/03/19 1:59 PM Result Value Ref Range Phosphorus, pl 3.6 2.3 - 4.5 mg/dL Lactate Collection Time: 06/03/19 1:59 PM Result Value Ref Range Lactate 1.2 0.7 - 2.0 mmol/L Protime-INR Collection Time: 06/03/19 1:59 PM Result Value Ref Range PT 13.3 (H) 9.5 - 13.0 sec INR 1.14 0.90 - 1.20 Differential, auto Collection Time: 06/03/19 1:59 PM Result Value Ref Range Neutrophil abs 7.4 (H) 1.7 - 6.5 K/cumm Imm gran abs 0.0 0.0 - 0.1 K/cumm Lymphocyte abs 0.7 (L) 0.8 - 3.3 K/cumm Monocyte abs 0.2 0.2 - 0.8 K/cumm Eosinophil abs 0.0 0.0 - 0.5 K/cumm Basophil abs 0.0 0.0 - 0.1 K/cumm Neutrophil pct 88.6 % Imm gran pct 0.5 % Lymphocyte pct 8.4 % Monocyte pct 2.0 % Eosinophil pct 0.1 % Basophil pct 0.4 % eGFR Collection Time: 06/03/19 1:59 PM Result Value Ref Range GFR 104 mL/min/1.73 m2 Recent Results (from the past 24 hour(s)) POCT glucose Collection Time: 06/03/19 6:13 AM Result Value Ref Range Glucose, POC 142 70 - 199 mg/dL Glucose comment 1 RN/MD Notified POCT glucose Collection Time: 06/03/19 8:15 AM Result Value Ref Range Glucose, POC 163 70 - 199 mg/dL POCT glucose Collection Time: 06/03/19 10:56 AM Result Value Ref Range Glucose, POC 138 70 - 199 mg/dL POCT glucose Collection Time: 06/03/19 1:38 PM Result Value Ref Range Glucose, POC 176 70 - 199 mg/dL CBC with auto differential Collection Time: 06/03/19 1:59 PM Result Value Ref Range WBC 8.3 3.8 - 9.9 K/cumm Hgb 12.4 11.9 - 15.5 g/dL Hct 37.4 35.6 - 45.5 % Plt 242 150 - 400 K/cumm MPV 10.3 9.1 - 12.3 fL RBC 3.92 3.90 - 5.20 M/cumm MCV 95.4 81.3 - 96.4 fL MCH 31.6 27.1 - 33.3 pg MCHC 33.2 32.3 - 35.7 g/dL RDW CV 12.2 11.1 - 14.9 % RDW SD 42.5 35.7 - 48.1 fL NRBC abs 0.00 0.00 - 0.01 K/cumm Basic metabolic panel Collection Time: 06/03/19 1:59 PM Result Value Ref Range Sodium 140 135 - 145 mmol/L Potassium, pl 4.6 3.3 - 4.9 mmol/L Chloride 109 97 - 110 mmol/L CO2 20 (L) 22 - 32 mmol/L Anion gap 11 2 - 15 mmol/L BUN 18 8 - 25 mg/dL Creatinine 0.48 (L) 0.60 - 1.10 mg/dL Glucose 180 70 - 199 mg/dL Calcium 8.4 (L) 8.5 - 10.3 mg/dL Magnesium Collection Time: 06/03/19 1:59 PM Result Value Ref Range Magnesium 1.3 (L) 1.4 - 2.5 mg/dL Phosphorus Collection Time: 06/03/19 1:59 PM Result Value Ref Range Phosphorus, pl 3.6 2.3 - 4.5 mg/dL Lactate Collection Time: 06/03/19 1:59 PM Result Value Ref Range Lactate 1.2 0.7 - 2.0 mmol/L Protime-INR Collection Time: 06/03/19 1:59 PM Result Value Ref Range PT 13.3 (H) 9.5 - 13.0 sec INR 1.14 0.90 - 1.20 Differential, auto Collection Time: 06/03/19 1:59 PM Result Value Ref Range Neutrophil abs 7.4 (H) 1.7 - 6.5 K/cumm Imm gran abs 0.0 0.0 - 0.1 K/cumm Lymphocyte abs 0.7 (L) 0.8 - 3.3 K/cumm Monocyte abs 0.2 0.2 - 0.8 K/cumm Eosinophil abs 0.0 0.0 - 0.5 K/cumm Basophil abs 0.0 0.0 - 0.1 K/cumm Neutrophil pct 88.6 % Imm gran pct 0.5 % Lymphocyte pct 8.4 % Monocyte pct 2.0 % Eosinophil pct 0.1 % Basophil pct 0.4 % eGFR Collection Time: 06/03/19 1:59 PM Result Value Ref Range GFR 104 mL/min/1.73 m2 Plan: # High grade right asymptomatic stenosis - S/P Right CEA - neuro checks , monitor phonation, monitor Left facial droop - SBP goal <120 MAP >65 hold anti-HTN meds until SBP allows - LR bolus 500ml for hypotension - pain control , [place] PRN - ASA, Plavix - ADAT - SSI - monitor renal function, electrolytes ,and UOP - H&H 12.4/37.4 PLT 242 INR 1.14 , CBC in AM. Monitor BRIAN drain - GERD- Pepcid - DVT PPX: SCD's , start Chemical PPX tomorrow ICU standards of care: Restraints: n/a Physical therapy/Activity: PT/OT Access: PIV, Left Jasen Magana (06/03) Goals of care: Full code Community AM Assessment and plan has been reviewed with attending, Dr Delmar Bernstein NP [phone], RONNA 1 Critical Care Medicine [facility] Cosigned by Alicia Jacobsen MD at 06/04/2019 8:29 AM CDT documented in this encounter Miscellaneous Notes * Plan of Care - Jeaneth Rapp RN - 06/04/2019 10:04 AM CDT Problem: Health Behavior: Goal: Understanding of discharge needs will improve Outcome: Adequate for Discharge Problem: Lack of Knowledge: Goal: Ability to state ways to decrease the risk of falls will improve Outcome: Adequate for Discharge Problem: Safety: Goal: Will remain free from falls Outcome: Adequate for Discharge Goal: Will remain free from injury from falls Outcome: Adequate for Discharge Goal: Will remain free from falls and injury in home environment Outcome: Adequate for Discharge Problem: Activity: Goal: Mobility will improve Outcome: Adequate for Discharge Problem: Lack of Knowledge: Goal: Understanding of ways to prevent future skin breakdown will improve Outcome: Adequate for Discharge Goal: Ability to identify appropriate dietary choices will improve Outcome: Adequate for Discharge Problem: [...] fullest extent possible Outcome: Adequate for Discharge Problem: Lack of Knowledge: Goal: Knowledge of safety precautions will improve Outcome: Adequate for Discharge Goal: Ability to identify signs and symptoms will improve Outcome: Adequate for Discharge Goal: Verbalization of understanding the information provided will improve Outcome: Adequate for Discharge Problem: Fluid Volume: Goal: Ability to achieve a balanced intake and output will improve Outcome: Adequate for Discharge Goal: Will show no signs and symptoms of excessive bleeding Outcome: Adequate for Discharge Problem: Physical Regulation: Goal: Diagnostic test results will improve Outcome: Adequate for Discharge Goal: Hemodynamic stability will improve Outcome: Adequate for Discharge Problem: Lack of Knowledge: Goal: Ability to develop a pain control plan will improve Outcome: Adequate for Discharge Goal: Ability to identify pain intensity on a pain scale and rate it consistently will improve Outcome: Adequate for Discharge Goal: Ability to notify healthcare provider of pain before it becomes unmanageable or unbearable will improve Outcome: Adequate for Discharge Problem: Medication: Goal: Satisfaction with pain management regimen will improve Outcome: Adequate for Discharge Problem: Sensory: Goal: Ability to identify factors that increase the pain will improve Outcome: Adequate for Discharge Goal: Pain level will decrease Outcome: Adequate for Discharge Problem: Safety: Goal: Will remain free from falls Outcome: Adequate for Discharge Goal: Will remain free from injury from falls Outcome: Adequate for Discharge Goal: Will remain free from falls and injury in home environment Outcome: Adequate for Discharge Problem: Bowel/Gastric: Goal: Gastrointestinal status for postoperative course will improve Outcome: Adequate for Discharge Problem: Cardiac: Goal: Hemodynamic stability will improve Outcome: Adequate for Discharge Problem: Lack of Knowledge: Goal: Understanding of discharge needs will improve Outcome: Adequate for Discharge Problem: Physical Regulation: Goal: Signs of adequate cerebral perfusion will be maintained Outcome: Adequate for Discharge Goal: Postoperative complications will be avoided or minimized Outcome: Adequate for Discharge Problem: Respiratory: Goal: Will maintain a patent airway Outcome: Adequate for Discharge Problem: Sensory: Goal: Pain level will decrease Outcome: Adequate for Discharge Problem: Skin Integrity: Goal: Will remain free from wound infection Outcome: Adequate for Discharge Goals: Clinical Goals for the Shift: comfort, normal vitals, wean o2 off, ambulate in mata, discharge to home Summary: * Anesthesia Post-op Follow-up Note - Marty Beltran AA - 06/04/2019 7:11 AM CDT Patient: Tressa Myers Procedure(s): right carotid endarterectomy Patient location: ICU Last vitals: Vitals: 06/04/19 0610 BP: Pulse: 59 Resp: 18 Temp: SpO2: 99% Level of consciousness: awake, alert and oriented Post-anesthesia pain: adequate analgesia Anesthetic complications: no Patient is stable, no PONV, ate last night, pain is tolerable. Vitals are stable. 126/60 59hr 100 02 on NC * Plan of Care - Sindhu Olvera RN - 06/03/2019 11:48 PM CDT Problem: Health Behavior: Goal: Understanding of discharge needs will improve Outcome: Progressing Problem: Lack of Knowledge: Goal: Ability to state ways to decrease the risk of falls will improve Outcome: Progressing Problem: Safety: Goal: Will remain free from falls Outcome: Progressing Goal: Will remain free from injury from falls Outcome: Progressing Goal: Will remain free from falls and injury in home environment Outcome: Progressing Problem: Activity: Goal: Mobility will improve Outcome: Progressing Problem: Lack of Knowledge: Goal: Understanding of ways to prevent future skin breakdown will improve Outcome: Progressing Goal: Ability to identify appropriate dietary choices will improve Outcome: Progressing Problem: Nutritional: Goal: Dietary intake will improve Outcome: Progressing Goal: Ability to maintain a balanced intake and output will improve Outcome: Progressing Problem: Skin Integrity: Goal: Risk for impaired skin integrity will decrease Outcome: Progressing Goal: Ability to demonstrate warm and dry skin will improve Outcome: Progressing Goal: Circulation will improve to fullest extent possible Outcome: Progressing Problem: Lack of Knowledge: Goal: Knowledge of safety precautions will improve Outcome: Progressing Goal: Ability to identify signs and symptoms will improve Outcome: Progressing Goal: Verbalization of understanding the information provided will improve Outcome: Progressing Problem: Fluid Volume: Goal: Ability to achieve a balanced intake and output will improve Outcome: Progressing Goal: Will show no signs and symptoms of excessive bleeding Outcome: Progressing Problem: Physical Regulation: Goal: Diagnostic test results will improve Outcome: Progressing Goal: Hemodynamic stability will improve Outcome: Progressing Problem: Lack of Knowledge: Goal: Ability to develop a pain control plan will improve Outcome: Progressing Goal: Ability to identify pain intensity on a pain scale and rate it consistently will improve Outcome: Progressing Goal: Ability to notify healthcare provider of pain before it becomes unmanageable or unbearable will improve Outcome: Progressing Problem: Medication: Goal: Satisfaction with pain management regimen will improve Outcome: Progressing Problem: Sensory: Goal: Ability to identify factors that increase the pain will improve Outcome: Progressing Goal: Pain level will decrease Outcome: Progressing Problem: Safety: Goal: Will remain free from falls Outcome: Progressing Goal: Will remain free from injury from falls Outcome: Progressing Goal: Will remain free from falls and injury in home environment Outcome: Progressing Problem: Bowel/Gastric: Goal: Gastrointestinal status for postoperative course will improve Outcome: Progressing Problem: Cardiac: Goal: Hemodynamic stability will improve Outcome: Progressing Problem: Lack of Knowledge: Goal: Understanding of discharge needs will improve Outcome: Progressing Problem: Physical Regulation: Goal: Signs of adequate cerebral perfusion will be maintained Outcome: Progressing Goal: Postoperative complications will be avoided or minimized Outcome: Progressing Problem: Respiratory: Goal: Will maintain a patent airway Outcome: Progressing Problem: Sensory: Goal: Pain level will decrease Outcome: Progressing Problem: Skin Integrity: Goal: Will remain free from wound infection Outcome: Progressing Goals: Summary: * Plan of Mary - Jeaneth Rapp RN - 06/03/2019 7:13 PM CDT Problem: Health Behavior: Goal: Understanding of discharge needs will improve Outcome: Progressing Problem: Lack of Knowledge: Goal: Ability to state ways to decrease the risk of falls will improve Outcome: Progressing Problem: Safety: Goal: Will remain free from falls Outcome: Progressing Goal: Will remain free from injury from falls Outcome: Progressing Goal: Will remain free from falls and injury in home environment Outcome: Progressing Problem: Activity: Goal: Mobility will improve Outcome: Progressing Problem: Lack of Knowledge: Goal: Understanding of ways to prevent future skin breakdown will improve Outcome: Progressing Goal: Ability to identify appropriate dietary choices will improve Outcome: Progressing Problem: Nutritional: Goal: Dietary intake will improve Outcome: Progressing Goal: Ability to maintain a balanced intake and output will improve Outcome: Progressing Problem: Skin Integrity: Goal: Risk for impaired skin integrity will decrease Outcome: Progressing Goal: Ability to demonstrate warm and dry skin will improve Outcome: Progressing Goal: Circulation will improve to fullest extent possible Outcome: Progressing Problem: Lack of Knowledge: Goal: Knowledge of safety precautions will improve Outcome: Progressing Goal: Ability to identify signs and symptoms will improve Outcome: Progressing Goal: Verbalization of understanding the information provided will improve Outcome: Progressing Problem: Fluid Volume: Goal: Ability to achieve a balanced intake and output will improve Outcome: Progressing Goal: Will show no signs and symptoms of excessive bleeding Outcome: Progressing Problem: Physical Regulation: Goal: Diagnostic test results will improve Outcome: Progressing Goal: Hemodynamic stability will improve Outcome: Progressing Problem: Lack of Knowledge: Goal: Ability to develop a pain control plan will improve Outcome: Progressing Goal: Ability to identify pain intensity on a pain scale and rate it consistently will improve Outcome: Progressing Goal: Ability to notify healthcare provider of pain before it becomes unmanageable or unbearable will improve Outcome: Progressing Problem: Medication: Goal: Satisfaction with pain management regimen will improve Outcome: Progressing Problem: Sensory: Goal: Ability to identify factors that increase the pain will improve Outcome: Progressing Goal: Pain level will decrease Outcome: Progressing Problem: Safety: Goal: Will remain free from falls Outcome: Progressing Goal: Will remain free from injury from falls Outcome: Progressing Goal: Will remain free from falls and injury in home environment Outcome: Progressing Problem: Bowel/Gastric: Goal: Gastrointestinal status for postoperative course will improve Outcome: Progressing Problem: Cardiac: Goal: Hemodynamic stability will improve Outcome: Progressing Problem: Lack of Knowledge: Goal: Understanding of discharge needs will improve Outcome: Progressing Problem: Physical Regulation: Goal: Signs of adequate cerebral perfusion will be maintained Outcome: Progressing Goal: Postoperative complications will be avoided or minimized Outcome: Progressing Problem: Respiratory: Goal: Will maintain a patent airway Outcome: Progressing Problem: Sensory: Goal: Pain level will decrease Outcome: Progressing Problem: Skin Integrity: Goal: Will remain free from wound infection Outcome: Progressing Goals: comfort, normal vitals, no s/s of stroke, tolerate po intake, tolerate increase activity Summary: * Perioperative Nursing Note - Elisabet Rodriguez RN - 06/03/2019 11:00 AM CDT Strength in hand and foot verified by surgeon after patient awake. * Perioperative Nursing Note - Elisabet Rodriguez RN - 06/03/2019 9:19 AM CDT Bilateral pedal pulses marked prior to procedure. Right foot pedal pulse palpable but faint. Left foot pedal pulse unable to palpate, used doppler to locate. ROM and strength tested on extremities prior to procedure by anesthesia. * Op Note - Zan Price MD - 06/03/2019 7:30 AM CDT OPERATIVE REPORT Patient: Tressa Myers DATE OF SURGERY: 06/03/2019 SURGEON: Zan Price MD MANAGER STRATEGY: TAURUS ANESTHESIA: General ANESTHESIOLOGIST: Anesthesiologist: Evan Jara MD SANDWICH ARTIST: Jazmyne Lan CRNA Complications: None Estimated Blood Loss: No blood loss documented. PREOPERATIVE DIAGNOSIS: High grade slightly symptomatic right carotid stenosis. POSTOPERATIVE DIAGNOSIS: same PROCEDURE: right carotid endarterectomy (R) INDICATION FOR PROCEDURE: Crescendo TIA, high grade stenosis on CTA. R/b/a discussed, risks including but not limited to bleeding, infection, coma, stroke, paralysis, brain damage, , speech/memory problems, esophagus/trachea/recurrent nerve/vagus/hypoglossal injury, need for further surgery. OPERATION IN DETAIL: Patient was brought to OR, positioned supine, placed under GETA, and IONM applied with good baselines. right neck was aseptically prepped and draped, and lazy-S incision locally anesthetized and incised tracking right carotid pulse medial to SCM. Platysma was divided longitudinally. Bridging branches of EJV and facial vein were ligated and cut. Carotid was exposed proximal to distal. Hypoglossal was identified and retracted. Superior thyroid and ECA were encircled and retracted. Patient was heparinzed, and CCA and ICA were encircled. ICA was clamped and vessel loop pulled snug, and monitoringobserved for 60 seconds without change, then CCA and ECA were clamped. Arteriotomy was performed with #15 blade and extended with Gregory scissors from 2cm proximal to 2cm distal to bifurcation on CCA-ICA. Placque was dissected free circumferentially, then everted out of ECA, amputated from CCA with smooth edges, and pulled down from ICA. Placque was tremendously calcific, and dissection was difficult and tedious, but no adventitial violation was noted. With judicious heparin- flushing, intima wascleaned of streamers, up to distal ICA. Patent lumen and strong backflow was confirmed from ICA, and then arteriotomy was repaired with 5-0 prolene using proximal and distal tack-ups, and running toward center. Prior to tying last knot, ECA was opened and flushed ensuring fair integrity of closure,then CCA was opened and flushed, and suture was tied. CCA-ECA flow was continued for 60 seconds, and then ICA was opened. IONM was stable without deficit. Arteriotomy was reinforced with surgicel andthrombin/gelfoam, pressure held for 5-10 minutes and bleeding was acceptable; no reinforcing sutures were needed. Vessel loops and superior thyroid tie were removed, and deep subcutaneous tissue closed with 3-0 vicryl to reapproximate a superficial carotid sheath over a 10F round fluted drain tunneled through separate incision. Platysma was closed with 3-0 vicryl, subcuticular tissue with running3-0 vicryl, and skin with running 4-0 prolene and drain sutured to dermis. Sterile dressing was applied, and patient awakened, extubated, and taken to PACU stable, moving all extremities well with functioning BRIAN. IMPLANTS: Nothing was implanted during the procedure Specimens: Order Name Source Comment Collection Info Order Time TYPE AND SCREEN 05/29/2019 2:07 PM Is this test being ordered in advance for a procedure? Yes Expected date of procedure: 06/03/2019 Has the patient been transfused in the past 3 months? Unknown Has the patient been in the past 3 months? 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) 06/03/2019 11:09 AM CDT documented as of this encounter Procedures Procedure Name Priority Date/Time Associated Diagnosis Comments POCT GLUCOSE DEVICE Routine 06/04/2019 1 2:04 PM CDT POCT GLUCOSE DEVICE Routine 06/04/2019 7 :29 AM CDT CRITICAL CARE Routine 06/04/2019 7:27 AM CDT Bilateral carotid artery occlusion History of CEA (carotid endarterectomy) EGFR Routine 06/04/2019 3:08 AM CDT CBC WITHOUT DIFFERENTIAL Routine 06/04/2019 3:08 AM CDT PHOSPHORUS Routine 06/04/2019 3:08 AM CDT MAGNESIUM Routine 06/04/2019 3:08 AM CDT BASIC METABOLIC PANEL Routine 06/04/2019 3:08 AM CDT POCT GLUCOSE DEVICE Routine 06/04/2019 1 :50 AM CDT POCT GLUCOSE DEVICE Routine 06/03/2019 9 :17 PM CDT CRITICAL CARE Routine 06/03/2019 6:58 PM CDT Bilateral carotid artery occlusion CRITICAL CARE Routine 06/03/2019 4:35 PM CDT Bilateral carotid artery occlusion LACTATE STAT 06/03/2019 1:59 PM CDT EGFR STAT 06/03/2019 1:59 PM CDT DIFFERENTIAL AUTO STAT 06/03/2019 1:5 9 PM CDT CBC WITH AUTO DIFFERENTIAL STAT 06/03/2019 1:59 PM CDT PROTIME-INR STAT 06/03/2019 1:59 PM CDT PHOSPHORUS STAT 06/03/2019 1:59 PM CDT MAGNESIUM STAT 06/03/2019 1:59 PM CDT BASIC METABOLIC PANEL STAT 06/03/2019 1:59 PM CDT POCT GLUCOSE DEVICE Routine 06/03/2019 1 :38 PM CDT SURGICAL PATHOLOGY Routine 06/03/2019 11 :58 AM CDT 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) VASCULAR SURGERY PROCEDURE Routine 06/03/2019 11:09 AM CDT 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) POCT GLUCOSE DEVICE Routine 06/03/2019 1 0:56 AM CDT POCT GLUCOSE DEVICE Routine 06/03/2019 8 :15 AM CDT POCT GLUCOSE DEVICE Routine 06/03/2019 6 :13 AM CDT documented in this encounter Results * (ABNORMAL) POCT glucose (06/04/2019 12:04 PM CDT) Glucose, POC 208(H) 70 - 199 mg/dL [facility] Blood specimen (specimen) 06/04/2019 12:04 PM CDT 06/04/2019 12:04 PM CDT us Zan Price MD LAB POCT ORDERABLES - DEVICE F inal Result [facility] [address] [place] [address] * POCT glucose (06/04/2019 7:29 AM CDT) Glucose, POC 124 70 - 199 mg/dL [place] Blood specimen (specimen) 06/04/2019 7:29 AM CDT 06/04/2019 7:29 AM CDT us Zan Price MD LAB POCT ORDERABLES - DEVICE F inal Result Performing Organization Address City/State/ZIP Co ny Phone Number [facility] [address] [place] [address] * Critical Care (06/04/2019 7:27 AM CDT) Narrative Alicia Jacobsen MD - 06/04/2019 7:27 AM CDT Lo Lofton NP ? 06/04/2019 ??1:43 PM Critical Care Performed by: Lo Lofton NP Authorized by: Lo Lofton NP CRITICAL CARE: ??Team: ??CHNE ??Shift: ??AM ??Level of Billing: ??Subsequent Hospital Visit Level 3 ??My time spent with this patient was 35 minutes: Critical Provider Statement: I have seen and examined the patient on this day of service. I have reviewed and confirmed the history, physical exam, laboratory, and radiographic data as documented in the ICU note. I have reviewed and discussed my treatment plan with the patient's team and other medical/universal branch consultant staff. This time was in addition to and separate from care provided by other practitioners on this day of service. ? I spent time reviewing and interpreting data from bedside monitors, laboratory results, and imaging, I spent time discussing the management of this critically ill patient with consultants and the medical staff and I spent time documenting in the medical record us Lo Lofton NP IN CLINIC/BEDSIDE [facility] Final Result * eGFR (06/04/2019 3:08 AM CDT) [facility] eGFR 111 mL/min/1.7 3 m2 [facility] Comment: Interpretive Data Reference Interval Normal ?>/= 90 mL/min/1.73m2 Mildly decreased* ? 60 - 89 mL/min/1.73m2 Mildly to moderately decreased ?45 - 59 mL/min/1.73m2 Moderately to severely decreased ??30 - 44 mL/min/1.73m2 Severely decreased ?15 - 29 mL/min/1.73m2 Kidney Failure ?< 15 ??mL/min/1.73m2 *Relative to young adult level If -[place] Citizen multiply value by 1.16. Estimated glomerular filtration [...] CDT 06/04/2019 3:15 AM CDT Do Bernstein RETAIL SEASONAL SPECIALIST LAB BLOOD ORDERABLES Fin al Result Performing Organization Address [facility] de Phone Number [facility] [address] [place] [address] * Magnesium (06/04/2019 3:08 AM CDT) Magnesium 1.6 1.4 - 2.5 mg/dL [facility] Blood specimen (specimen) 06/04/2019 3:08 AM CDT 06/04/2019 3:15 AM CDT Do Bernstein RETAIL SEASONAL SPECIALIST LAB BLOOD ORDERABLES Fin al Result Performing Organization Address [facility] de Phone Number [facility] [address] [place] [address] * Phosphorus (06/04/2019 3:08 AM CDT) Phosphorus, pl 3.3 2.3 - 4.5 mg/dL [facility] Blood specimen (specimen) 06/04/2019 3:08 AM CDT 06/04/2019 3:15 AM CDT Do Bernstein RETAIL SEASONAL SPECIALIST LAB BLOOD ORDERABLES Fin al Result Performing Organization Address [facility] de Phone Number [facility] [address] [place] [address] * (ABNORMAL) CBC without differential (06/04/2019 3:08 AM CDT) WBC 8.4 3.8 - 9.9 K/cumm [facility] Hgb 11.8(L) 11.9 - 15.5 g/dL [facility] Hct 37.0 35.6 - 45.5 % [facility] Plt 239 150 - 400 K/cumm [facility] MPV 10.4 9.1 - 12.3 fL [facility] RBC 3.82(L) 3.90 - 5.20 M/cumm [facility] MCV 96.9(H) 81.3 - 96.4 fL [facility] MCH 30.9 27.1 - 33.3 pg [facility] MCHC 31.9(L) 32.3 - 35.7 g/dL [facility] RDW CV 12.1 11.1 - 14.9 % [facility] RDW SD 43.5 35.7 - 48.1 fL [facility] NRBC abs 0.00 0.00 - 0.01 K/cumm [facility] Blood specimen (specimen) 06/04/2019 3:08 AM CDT 06/04/2019 3:13 AM CDT Do Bernstein RETAIL SEASONAL SPECIALIST LAB BLOOD ORDERABLES Fin al Result Performing Organization Address [facility] Co de Phone Number [facility] [place] [address] [place] [address] * (ABNORMAL) Basic metabolic panel (06/04/2019 3:08 AM CDT) Sodium 141 135 - 145 mmol/L [facility] Potassium, pl 4.0 3.3 - 4.9 mmol/L [facility] Chloride 108 97 - 110 mmol/L [facility] CO2 24 22 - 32 mmol/L [facility] Anion gap 9 2 - 15 mmol/L [facility] BUN 10 8 - 25 mg/dL [facility] Creatinine 0.39(L) 0.60 - 1.10 mg/dL [facility] Glucose 130 70 - 199 mg/dL [facility] Comment: Interpretive Data Fasting glucose >/= [...] interpretive data was last revised 2017. Calcium 8.5 8.5 - 10.3 mg/dL [facility] Blood specimen (specimen) 06/04/2019 3:08 AM CDT 06/04/2019 3:15 AM CDT Do Bernstein RETAIL SEASONAL SPECIALIST LAB BLOOD ORDERABLES Fin al Result Performing Organization Address [facility] Co de Phone Number [facility] [address] [place] [address] * POCT glucose (06/04/2019 1:50 AM CDT) Glucose, POC 151 70 - 199 mg/dL [facility] Blood specimen (specimen) 06/04/2019 1:50 AM CDT 06/04/2019 1:50 AM CDT Zan Price MD LAB POCT ORDERABLES - DEVICE F inal Result Performing Organization Address [facility] de Phone Number [facility] [address] [place] [address] * POCT glucose (06/03/2019 9:17 PM CDT) Glucose, POC 151 70 - 199 mg/dL [facility] Blood specimen (specimen) 06/03/2019 9:17 PM CDT 06/03/2019 9:17 PM CDT us Zan Price MD LAB POCT ORDERABLES - [place]ICE [place] [address] [place] [address] * Critical Care (06/03/2019 6:58 PM CDT) Narrative Evans Rodriguez MD - 06/03/2019 6:58 PM CDT LATRELL Mcneill ? 06/04/2019 ??5:24 AM Critical Care Performed by: LATRELL Mcneill Authorized by: LATRELL Mcneill CRITICAL CARE: ??Team: ??CHNE ??Shift: ??PM ??Level of Billing: ??Subsequent Hospital Visit Level 3 ??My time spent with this patient was 65 minutes: Critical Provider Statement: I have seen and examined the patient on this day of service. I have reviewed and confirmed the history, physical exam, laboratory, and radiographic data as documented in the ICU note. I have reviewed and discussed my treatment plan with the patient's team and other medical/universal branch consultant staff. This time was in addition to and separate from care provided by other practitioners on this day of service. ?? us Mady SAMS IN CLINIC/BEDSIDE LISY LAMB Final Result * Critical Care (06/03/2019 4:35 PM CDT) Narrative Alicia Jacobsen MD - 06/03/2019 4:35 PM CDT Do Bernstein NP ? 06/03/2019 ??4:37 PM Critical Care Performed by: Do Bernstein NP Authorized by: Do Bernstein NP CRITICAL CARE: ??Team: ??CHNE ??Shift: ??AM ??Level of Billing: ??Initial Hospital Visit Level 3 ??My time spent with this patient was 90 minutes: Critical Provider Statement: I have seen and examined the patient on this day of service. I have reviewed and confirmed the history, physical exam, laboratory, and radiographic data as documented in the ICU note. I have reviewed and discussed my treatment plan with the patient's team and other medical/universal branch consultant staff. This time was in addition to and separate from care provided by other practitioners on this day of service. ? Acute pain/acute postoperative pain ?? Hypotension ??This time was spent by me doing the following: ? Acute pain control and Frequent neurologic exams ?? Incentive spirometry, pulmonary toilet ?? Active repletion of electrolytes ?? I spent time reviewing and interpreting data from bedside monitors, laboratory results, and imaging, I spent time discussing the management of this critically ill patient with consultants and the medical staff and I spent time documenting in the medical record us Do Bernstein NP IN CLINIC/BEDSIDE ORDERA BLES Final Result * eGFR (06/03/2019 1:59 PM CDT) [facility] eGFR 104 mL/min/1.7 3 m2 [facility] Comment: Interpretive Data Reference Interval Normal ?>/= 90 mL/min/1.73m2 Mildly decreased* ? 60 - 89 mL/min/1.73m2 Mildly to moderately decreased ?45 - 59 mL/min/1.73m2 Moderately to severely decreased ??30 - 44 mL/min/1.73m2 Severely decreased ?15 - 29 mL/min/1.73m2 Kidney Failure ?< 15 ??mL/min/1.73m2 *Relative to young adult level If -[place] Citizen multiply value by 1.16. Estimated glomerular filtration [...] was last reviewed 2016. Blood specimen (specimen) 06/03/2019 1:59 PM CDT 06/03/2019 2:07 PM CDT us Do Bernstein RETAIL SEASONAL SPECIALIST LAB BLOOD ORDERABLES Fin al Result [facility] [address] [place] [address] * (ABNORMAL) Differential, auto (06/03/2019 1:59 PM CDT) Neutrophil abs 7.4(H) 1.7 - 6.5 K/cumm [facility] Imm gran abs 0.0 0.0 - 0.1 K/cumm [facility] Lymphocyte abs 0.7(L) 0.8 - 3.3 K/cumm [facility] Monocyte abs 0.2 0.2 - 0.8 K/cumm [facility] Eosinophil abs 0.0 0.0 - 0.5 K/cumm [facility] Basophil abs 0.0 0.0 - 0.1 K/cumm [facility] Neutrophil pct 88.6 % [facility] Comment: Interpretive Data Percent cell count reference ranges are not reported, since discordance with absolute values may lead to misinterpretation of CBC data. Current Interpretive Data was last revised on 2017. Imm gran pct 0.5 % [facility] Comment: Interpretive Data Percent cell count reference ranges are not reported, since discordance with absolute values may lead to misinterpretation of CBC data. Current Interpretive Data was last revised on 2017. Lymphocyte pct 8.4 % [facility] Comment: Interpretive Data Percent cell count reference ranges are not reported, since discordance with absolute values may lead to misinterpretation of CBC data. Current Interpretive Data was last revised on 2017. Monocyte pct 2.0 % [facility] Comment: Interpretive Data Percent cell count reference ranges are not reported, since discordance with absolute values may lead to misinterpretation of CBC data. Current Interpretive Data was last revised on 2017. Eosinophil pct 0.1 % [facility] Comment: Interpretive Data Percent cell count reference ranges are not reported, since discordance with absolute values may lead to misinterpretation of CBC data. Current Interpretive Data was last revised on 2017. Basophil pct 0.4 % [facility] Comment: Interpretive Data Percent cell count reference ranges are not reported, since discordance with absolute values may lead to misinterpretation of CBC data. Current Interpretive Data was last revised on 2017. Blood specimen (specimen) 06/03/2019 1:59 PM CDT 06/03/2019 2:02 PM CDT Do Bernstein RETAIL SEASONAL SPECIALIST LAB BLOOD ORDERABLES Fin al Result Performing Organization Address [facility] de Phone Number [facility] [address] [place] [address] * (ABNORMAL) Protime-INR (06/03/2019 1:59 PM CDT) PT 13.3(H) 9.5 - 13.0 sec [facility] INR 1.14 0.90 - 1.20 [facility] Blood specimen (specimen) 06/03/2019 1:59 PM CDT 06/03/2019 2:04 PM CDT Do Bernstein RETAIL SEASONAL SPECIALIST LAB BLOOD ORDERABLES Fin al Result Performing Organization Address [facility] de Phone Number [facility] [address] [place] [address] * Lactate (06/03/2019 1:59 PM CDT) Lactate 1.2 0.7 - 2.0 mmol/L [facility] Blood specimen (specimen) 06/03/2019 1:59 PM CDT 06/03/2019 2:04 PM CDT Do Bernstein RETAIL SEASONAL SPECIALIST LAB BLOOD ORDERABLES Fin al Result Performing Organization Address [facility] de Phone Number [facility] [address] [place] [address] * Phosphorus (06/03/2019 1:59 PM CDT) Phosphorus, pl 3.6 2.3 - 4.5 mg/dL [facility] Blood specimen (specimen) 06/03/2019 1:59 PM CDT 06/03/2019 2:04 PM CDT Do Shabnam Amandeep RETAIL SEASONAL SPECIALIST LAB BLOOD ORDERABLES Fin al Result Performing Organization Address [facility] Co de Phone Number [facility] [address] [place] [address] * (ABNORMAL) Magnesium (06/03/2019 1:59 PM CDT) Magnesium 1.3(L) 1.4 - 2.5 mg/dL [facility] Blood specimen (specimen) 06/03/2019 1:59 PM CDT 06/03/2019 2:04 PM CDT Do Bernstein RETAIL SEASONAL SPECIALIST LAB BLOOD ORDERABLES Fin al Result Performing Organization Address [facility] [place]/[facility] Phone Number [facility] [address] [place] [address] * (ABNORMAL) Basic metabolic panel (06/03/2019 1:59 PM CDT) Sodium 140 135 - 145 mmol/L [facility] Potassium, pl 4.6 3.3 - 4.9 mmol/L [facility] Chloride 109 97 - 110 mmol/L [facility] CO2 20(L) 22 - 32 mmol/L [facility] Anion gap 11 2 - 15 mmol/L [facility] BUN 18 8 - 25 mg/dL [facility] Creatinine 0.48(L) 0.60 - 1.10 mg/dL [facility] Glucose 180 70 - 199 mg/dL [facility] Comment: Interpretive Data Fasting glucose >/= [...] interpretive data was last revised 2017. Calcium 8.4(L) 8.5 - 10.3 mg/dL [facility] Blood specimen (specimen) 06/03/2019 1:59 PM CDT 06/03/2019 2:04 PM CDT Do Bernstein RETAIL SEASONAL SPECIALIST LAB BLOOD ORDERABLES Fin al Result Performing Organization Address [facility] Co de Phone Number [facility] [address] [place], [place] [id number] * CBC with auto differential (06/03/2019 1:59 PM CDT) WBC 8.3 3.8 - 9.9 K/cumm [facility] Hgb 12.4 11.9 - 15.5 g/dL [facility] Hct 37.4 35.6 - 45.5 % [facility] Plt 242 150 - 400 K/cumm [facility] MPV 10.3 9.1 - 12.3 fL [facility] RBC 3.92 3.90 - 5.20 M/cumm [facility] MCV 95.4 81.3 - 96.4 fL [facility] MCH 31.6 27.1 - 33.3 pg [facility] MCHC 33.2 32.3 - 35.7 g/dL [facility] CH RDW CV 12.2 11.1 - 14.9 % [facility] RDW SD 42.5 35.7 - 48.1 fL [facility] NRBC abs 0.00 0.00 - 0.01 K/cumm [facility] Blood specimen (specimen) 06/03/2019 1:59 PM CDT 06/03/2019 2:02 PM CDT Do Bernstein RETAIL SEASONAL SPECIALIST LAB BLOOD ORDERABLES Fin al Result Performing Organization Address [facility] Co de Phone Number [facility] [address] [place], [place] [id number] * POCT glucose (06/03/2019 1:38 PM CDT) Glucose, POC 176 70 - 199 mg/dL [facility] Blood specimen (specimen) 06/03/2019 1:38 PM CDT 06/03/2019 1:38 PM CDT Zan Price MD LAB POCT ORDERABLES - DEVICE F inal Result [facility] [address] [address] * Surgical pathology (06/03/2019 11:58 AM CDT) Tissue (Artery, plaque Atherosclerotic) 06/03/2019 10:00 AM CDT Narrative PATHOLOGY CH - 06/05/2019 11:01 AM CDT [facility] results best viewed via link to PDF [facility] Department of Pathology [address] [place] [address] Final Report Patient Name: ??TRESSA MYERS Address: ??[address] [place] [address], ??[place], [place] ??[address] Gender: ??F : ??1955 (Age: 64) Service: ??Surgery Location: ?? [facility] #: ??[id number] Patient Type: ??[facility] Accession # ?[id number] Taken: ??06/03/2019 Received: ??06/03/2019 Accessioned: ??06/03/2019 Reported: ??06/05/2019 Physician(s):Dr. Zan Price M.D. Robbie Haywood MD Diagnosis: Right carotid artery, endarterectomy: ? - Atherosclerotic plaque. Naga New M.D. Report Electronically Reviewed and Signed Out By ??Naga New M.D. ??06/05/2019 11:01:09 Specimen(s) Received: A: Right carotid plaque Microscopic Description: Sections show vessel wall with an atherosclerotic plaque. ??No significant inflammatory infiltrate or evidence of malignancy is seen. 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 ??It is a piece of tubular-shaped, calcified arthrosclerotic plaque with high-grade luminal occlusion measuring 2.3 x 0.8 cm. ??Decalcified, represented in one cassette. ??Marc Dimas M.D., Ph.D./Johnny Lucio. REPORT IMAGES AND SCANNED DOCUMENTS, IF INCLUDED, ONLY VIEWABLE IN PDF VERSION OF REPORT The performance characteristics of some immunohistochemical stains, fluorescence in-situ hybridization tests and immunophenotyping by flow cytometry cited in this report (if any) were determined by the Surgical Pathology Department at [facility] as part of an ongoing senior quality assurance specialist program and in compliance with federally mandated regulations drawn from the Clinical Laboratory Improvement Act of 1988 (CLIA '88). ??Some of these tests rely on the use of analyte specific reagents and are subject to specific labeling requirements by the US Food and Drug Administration. ??Such diagnostic tests may only be performed in a facility that is certified by the Department of Health and Human Services as a high complexity laboratory under CLIA '88. The FDA has determined that such clearance or approval is not necessary. ??This test is used for clinical purposes. ??It should not be regarded as investigational or for research. ??Nevertheless, federal rules concerning the medical use of analyte specific reagents require that the following disclaimer be attached to the report: This test was developed and its performance characteristics determined by the Surgical Pathology Department [facility]. ??It has not been cleared or approved by the U. S. Food and Drug Administration. Zan Price MD LAB PATHOLOGY ORDERABLES Final Result Performing Organization Address [facility]/ZIP Co de Phone Number [facility] [address] [place] [address] * POCT glucose (06/03/2019 10:56 AM CDT) Glucose, POC 138 70 - 199 mg/dL [facility] Blood specimen (specimen) 06/03/2019 10:56 AM CDT 06/03/2019 10:56 AM CDT Zan Price MD LAB POCT ORDERABLES - DEVICE F inal Result Performing Organization Address [facility] Co de Phone Number [facility] [address] [place] [address] * POCT glucose (06/03/2019 8:15 AM CDT) Glucose, POC 163 70 - 199 mg/dL [facility] Blood specimen (specimen) 06/03/2019 8:15 AM CDT 06/03/2019 8:15 AM CDT Zan Price MD LAB POCT ORDERABLES - DEVICE F inal Result Performing Organization Address [facility]/[facility] de Phone Number [facility] [address] [place] [address] * POCT glucose (06/03/2019 6:13 AM CDT) Glucose, POC 142 70 - 199 mg/dL [facility] Glucose comment 1 RN/MD Notified [facility] Blood specimen (specimen) 06/03/2019 6:13 AM CDT 06/03/2019 6:13 AM CDT Zan Price MD LAB POCT ORDERABLES - DEVICE F inal Result Performing Organization Address [facility] de Phone Number [facility] [address] [place] [address] documented in this encounter Visit Diagnoses Diagnosis History of CEA (carotid endarterectomy)- Primary Bilateral carotid artery occlusion Occlusion and stenosis of carotid artery without mention of cerebral infarction 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) Bilateral carotid artery occlusion Occlusion and stenosis of carotid artery without mention of cerebral infarction 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) Bilateral carotid artery occlusion Occlusion and stenosis of carotid artery without mention of cerebral infarction 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 Given 06/03/2019 8:00 PM CDT 81 mg bacitracin-polymyxin B (POLYSPORIN) 500-10,000 unit/gram ointment tube As needed, Starting on Sun06/03/19 at 0919, Intra-Op, Indications: Minor Bacterial Skin InfectionsIndications :Minor Bacterial Skin Infections Given 06/03/2019 9:19 AM CDT 1 application (deactivated) Other (Comment) clopidogrel (PLAVIX) tablet 75 mg 75 mg, oral, Nightly, First dose on Sun06/03/19 at 2100 Given 06/03/2019 8:01 PM CDT 75 mg dextrose (D10W) 10% bolus 250 mL 250 mL, intravenous, at 1,000 mL/hr, Administer over 15 Minutes, Every 15 min PRN, blood glucose less than 70 mg/dL and UNABLE to swallow/take PO glucose/juice., Starting on Sun06/03/19 at 1344, After treatment for hypoglycemia, recheck BG followed by treatment every 15 minutes until the BG is greater than 100 mg/dL. Then check BG 1 hour post treatment. If BG is less than 100 mg/dL, repeat Q15 minute BG checks and treatment. Call MD for each episode of hypoglycemia., Indications: hypoglycemic disorderIndications:h ypoglycemic disorder dextrose oral liquid liquid 15 g 15 g, oral, Every 15 min PRN, low blood sugar, blood glucose less than 70 mg/dL, Starting on Sun06/03/19 at 1344, If patient is alert and able to [...] for each episode of hypoglycemia., Indications: hypoglycemic disorderIndications:h ypoglycemic disorder famotidine (PEPCID) tablet 20 mg 20 mg, oral, 2 times daily, First dose on Sun06/03/19 at 1415, Indications: Prevention of Stress UlcerIndications:Prev ention of Stress Ulcer Given 06/04/2019 8:36 AM CDT 20 mg Given 06/03/2019 8:02 PM CDT 20 mg Given 06/03/2019 2:31 PM CDT 20 mg glucagon injection 1 mg 1 mg, intramuscular, Administer over 1 Minutes, Every 30 min PRN, low blood sugar, blood glucose less than 70 mg/dL AND no IV access AND unable to take PO glucose/jiuce., Starting on Sun06/03/19 at 1344, After Glucagon is administered, position patient on [...] MD for each episode of hypoglycemia., Indications: HypoglycemiaIndication s:Hypoglycemia heparin 1,000 unit/mL injection As needed, Starting on Sun06/03/19 at 0906, Intra-Op Given 06/03/2019 9:06 AM CDT 5,000 Units Surgical Site insulin lispro (HumaLOG) injection 1-3 Units 1-3 Units, subcutaneous, Nightly, First dose on Sun06/03/19 at 2100, Blood Sugar Mid Dose PM - PO patients 175 or less No insulin 176 - 200 1 unit 201 - 250 2 units 251 - 299 3 units Greater than 299 Call MD for hyperglycemia management instructions Do NOT hold for NPO status., Indications: Diabetes MellitusIndications:Di abetes Mellitus insulin lispro (HumaLOG) injection 1-3 Units 1-3 Units, subcutaneous, Every 24 hours, First dose on Sun06/04/19 at 0200, lood Sugar Mid Dose 02:00 - PO patients 175 or less No insulin 176 - 200 1 unit 201 - 250 2 units 251 - 299 3 units Greater than 299 Call MD for hyperglycemia management instructions Do NOT hold for NPO status., Indications: Diabetes MellitusIndications:Di abetes Mellitus insulin lispro (HumaLOG) injection 1-5 Units 1-5 Units, subcutaneous, 3 times daily with meals, First dose on Sun06/03/19 at 1800, Blood Sugar Mid Dose meal time - PO patients 139 or less No insulin 140 - 175 1 unit 176 - 200 2 unit 201 - 250 3 units 251 - 299 5 units Greater than 299 Call MD for hyperglycemia management instructions Do NOT hold for NPO status., Indications: Diabetes MellitusIndications:Di abetes Mellitus Given 06/04/2019 12:06 PM CDT 3 Units Left Upper Abdomen Lactated Ringer's (LR) infusion 30 mL/hr, intravenous, Continuous, Starting on Sun06/03/19 at 0630 Rate/Dose Verify 06/04/2019 6:10 AM CDT 30 mL/hr 30 mL/hr Rate/Dose Verify 06/04/2019 1:55 AM CDT 30 mL/hr 30 mL/h r Rate/Dose Verify 06/04/2019 12:00 AM CDT 30 mL/hr 30 mL/ hr levothyroxine (SYNTHROID) tablet 75 mcg 75 mcg, oral, Daily (early AM), First dose on Sun06/04/19 at 0600, Administer on an empty stomach, preferably 30 minutes before breakfast. Take 4 hours apart from antacids, iron and calcium products. Given 06/04/2019 6:15 AM CDT 75 mcg ondansetron (ZOFRAN) injection 4 mg 4 mg, intravenous, Administer over 2 Minutes, Every 6 hours PRN, nausea, vomiting, if not tolerating PO, Starting on Sun06/03/19 at 1336, Indications: Nausea and Vomiting, Nausea and VomitingIndications:Nausea and Vomiting,Nausea and Vomiting ondansetron ODT (ZOFRAN-ODT) disintegrating tablet 4 mg 4 mg, oral, Every 6 hours PRN, nausea, vomiting, Starting on Sun06/03/19 at 1336, Indications: Nausea and Vomiting, Nausea and VomitingIndications:Nausea and Vomiting,Nausea and Vomiting PARoxetine (PAXIL) tablet 20 mg 20 mg, oral, 2 times daily, First dose on Sun06/03/19 at 1415 Given 06/04/2019 8:36 AM CDT 20 mg Given 06/03/2019 8:00 PM CDT 20 mg Given 06/03/2019 2:31 PM CDT 20 mg simvastatin (ZOCOR) tablet 40 mg 40 mg, oral, Nightly, First dose on Sun06/03/19 at 2100 Given 06/03/2019 8:01 PM CDT 40 mg sodium chloride 0.9 % irrigation As needed, Starting on Sun06/03/19 at 0906, Intra-Op Given 06/03/2019 9:06 AM CDT 1,000 mL Surgical Site sodium chloride 0.9% flush 0.5-20 mL 0.5-20 mL, intra-catheter, Every 8 hours scheduled, First dose on Sun06/03/19 at 1415, Flush volume based on line type and size. Given 06/03/2019 2:31 PM CDT 10 mL thrombin-bovine 5,000 unit nasal spray syringe As needed, Starting on Sun06/03/19 at 0908, Intra-Op Given 06/03/2019 9:08 AM CDT 10,000 Units Other (Comment) traMADol (ULTRAM) tablet 50 mg 50 mg, oral, Every 4 hours PRN, 1st line for pain, Starting on Sun06/04/19 at 1002 Given 06/04/2019 11:25 AM CDT 50 mg documented in this encounter Active and Recently Administered Medications Times are shown in CDT. Scheduled Medication Order 06/02/2019 06/03/2019 06/04/2019 acetaminophen (TYLENOL) tablet 1,000 mg (COMPLETED) 1,000 mg, oral, Once, On Sun06/03/19 at 0630, For 1 dose, Pre-Op, Indications: Pre-Emptive Analgesia 0642 (Given - Provider: Fozia Mata RN) aspirin enteric coated tablet 81 mg 81 mg, oral, Nightly, First dose on Sun06/03/19 at 2100, Do not crush, chew, cut, dissolve, open or otherwise manipulate tablet/capsule. 1999 (Given - Provider: Sindhu Olvera RN) calcium gluconate 2 g in sodium chloride 0.9% 100 mL IVPB (COMPLETED) 2 g, intravenous, at 120 mL/hr, Administer over 60 Minutes, Once, On Sun06/03/19 at 1545, For 1 dose, Indications: hypocalcemia 1608 (New Bag - Provider: Jeaneth Rapp RN) celecoxib (CeleBREX) capsule 400 mg (COMPLETED) 400 mg, oral, Once, On Sun06/03/19 at 0630, For 1 dose, Pre-Op, Indications: Pre-Emptive Analgesia 0643 (Given - Provider: Fozia Mata RN) clindamycin (CLEOCIN) 600 mg/50 mL in sodium chloride 0.9% (premix) piggyback 600 mg (CANCELED) 600 mg, intravenous, at 100 mL/hr, Administer over 30 Minutes, Every 8 hours scheduled, First dose on Sun06/03/19 at 0745, For 24 hours, Indications: Prophylaxis, Surgical 0745 (Due)0809 (Given - Provider: Jazmyne Lan CRNA) clopidogrel (PLAVIX) tablet 75 mg 75 mg, oral, Nightly, First dose on Sun06/03/19 at 2100 2000 (Given - Provider: Sindhu Olvera, JUSTICE) famotidine (PEPCID) tablet 20 mg 20 mg, oral, 2 times daily, First dose on Sun06/03/19 at 1415, Indications: Prevention of Stress Ulcer 1431 (Given - Provider: Jeaneth Rapp RN)2001 (Given - Provider: Sindhu Olvera, RN) 0836 (Given - Provider: Jeaneth Rapp RN) insulin lispro (HumaLOG) injection 1-3 Units 1-3 Units, subcutaneous, Nightly, First dose on Sun06/03/19 at 2100, Blood Sugar Mid Dose PM - PO patients 175 or less No insulin 176 - 200 1 unit 201 - 250 2 units 251 - 299 3 units Greater than 299 Call MD for hyperglycemia management instructions Do NOT hold for NPO status., Indications: Diabetes Mellitus 2118 (Not Given - Provider: Sindhu Olvera RN - Reason: Order parameters not met) insulin lispro (HumaLOG) injection 1-3 Units 1-3 Units, subcutaneous, Every 24 hours, First dose on Sun06/04/19 at 0200, lood Sugar Mid Dose 02:00 - PO patients 175 or less No insulin 176 - 200 1 unit 201 - 250 2 units 251 - 299 3 units Greater than 299 Call MD for hyperglycemia management instructions Do NOT hold for NPO status., Indications: Diabetes Mellitus 0154 (Not Given - Provider: Sindhu Olvera RN - Reason: Order parameters not met) insulin lispro (HumaLOG) injection 1-5 Units 1-5 Units, subcutaneous, 3 times daily with meals, First dose on Sun06/03/19 at 1800, Blood Sugar Mid Dose meal time - PO patients 139 or less No insulin 140 - 175 1 unit 176 - 200 2 unit 201 - 250 3 units 251 - 299 5 units Greater than 299 Call MD for hyperglycemia management instructions Do NOT hold for NPO status., Indications: Diabetes Mellitus 1810 (Not Given - Provider: Jeaneth Rapp RN - Reason: Order parameters not met) 0836 (Not Given - Provider: Jeaneth Rapp RN - Reason: Order parameters not met)1206 (Given - Provider: Marilia Boone, JUSTICE) levothyroxine (SYNTHROID) tablet 75 mcg 75 mcg, oral, Daily (early AM), First dose on Sun06/04/19 at 0600, Administer on an empty stomach, preferably 30 minutes before breakfast. Take 4 hours apart from antacids, iron and calcium products. 0615 (Given - Provid er: Sindhu Olvera RN) magnesium sulfate 2 g/50 mL in water (premix) 2 g (COMPLETED) 2 g, intravenous, Administer over 60 Minutes, Once, On Sun06/03/19 at 1545, For 1 dose 1613 (New Bag - Provider: Jeaneth Rapp RN) magnesium sulfate 2 g/50 mL in water (premix) 2 g (COMPLETED) 2 g, intravenous, Administer over 60 Minutes, Once, On Sun06/04/19 at 0430, For 1 dose 0359 (New Bag - Provider: Sindhu Olvera RN) PARoxetine (PAXIL) tablet 20 mg 20 mg, oral, 2 times daily, First dose on Sun06/03/19 at 1415 1431 (Given - Provider: Jeaneth Rapp RN)1999 (Given - Provider: Sindhu Olvera RN) 0836 (Given - Provider: Jeaneth Rapp RN) phenylephrine (ANNABELLA-SYNEPHRINE) 1 mg/10 mL (100 mcg/mL) in sodium chloride 0.9% (premix) 100 mcg (COMPLETED) 100 mcg, intravenous, Once, On Sun06/03/19 at 1230, For 1 dose, Phase I, For IV push, administer over 30 seconds. 1204 (Given - Provider: Monster Holder RN) simvastatin (ZOCOR) tablet 40 mg 40 mg, oral, Nightly, First dose on Sun06/03/19 at 2100 2000 (Given - Provider: Sindhu Olvera RN) sodium chloride 0.9% flush 0.5-20 mL 0.5-20 mL, intra-catheter, Every 8 hours scheduled, First dose on Sun06/03/19 at 1415, Flush volume based on line type and size. 1431 (Given - Provider: Jeaneth Rapp RN)2301 (Not Given - Provider: Sindhu Olvera RN - Reason: IV Infusing) 0526 (Not Given - Provider: Sindhu Olvera RN - Reason: IV Infusing)1439 (Canceled Entry - Provider: Jeaneth Rapp RN) Continuous Medication Order 06/02/2019 06/03/2019 06/04/2019 Lactated Ringer's (LR) infusion 30 mL/hr, intravenous, Continuous, Starting on Sun06/03/19 at 0630 0642 (New Bag - Provider: Fozia Mata RN)0734 (New Bag - Provider: Jazmyne Lan CRNA)1034 (New Bag - Provider: Jazmyne Lan CRNA)1427 (New Bag - Provider: Jeaneth Rapp RN)1500 (Rate/Dose Verify - Provider: Jeaneth Rapp RN)1600 (Rate/Dose Verify - Provider: Jeaneth Rapp RN)1700 (Rate/Dose Verify - Provider: Jeaneth Rapp RN)1800 (Rate/Dose Verify - Provider: Jeaneth Rapp RN)2000 (Rate/Dose Verify - Provider: Sindhu Olvera RN)2200 (Rate/Dose Verify - Provider: Sindhu Olevra RN) 0000 (Rate/Dose Verify - Provider: Sindhu Olvera RN)0155 (Rate/Dose Verify - Provider: Sindhu Olvera RN)0610 (Rate/Dose Verify - Provider: Sindhu Olvera RN)0800 (Stopped - Provider: Jeaneth Rapp RN) niCARdipine (CARDENE) 25,000 mcg in sodium chloride 0.9% 250 mL (100 mcg/mL) infusion (CANCELED) 0.5-2.5 mcg/kg/min ? 101.6 kg (30.48-152.4 mL/hr, rounded to 30.5-152.4 mL/hr), 100 mcg/mL, intravenous, Titrated, Starting on Sun06/03/19 at 0600, Until Sun06/03/19 at 1344, Initial rate: 0.5 mcg/kg/min, Titrate: Up/Down, Titrate by: 0.5 mcg/kg/min, Every: 10 minutes, Goal: MAP, MAP Goal: 70-90 mmHg, Please send to OR tomorrow morning 06/03/2019, Routine 1024 (New Bag - Provider: Jazmyne Lan CRNA)1025 (Rate/Dose Change - Provider: Jazmyne Lan CRNA)1027 (Stopped - Provider: Jazmyne Lan CRNA)1042 (Restarted - Provider: Jazmyne Lan CRNA)1045 (Rate/Dose Change - Provider: Jazmyne Lan CRNA)1053 (Rate/Dose Change - Provider: Jazmyne Lan CRNA)1058 (Rate/Dose Change - Provider: Jazmyne Lan CRNA)1106 (Continued from OR - Provider: Monster Holder RN)1110 (Rate/Dose Change - Provider: Jazmyne Lan CRNA)1112 (Rate/Dose Change - Provider: Jazmyne Lan CRNA) PRN Medication Order 06/02/2019 06/03/2019 06/04/2019 bacitracin-polymyxin B (POLYSPORIN) 500-10,000 unit/gram ointment tube (CANCELED) As needed, Starting on Sun06/03/19 at 0919, Intra-Op, Indications: Minor Bacterial Skin Infections 0919 (Given - Provider: Zan Price MD - Comment: surgical site) dextrose (D10W) 10% bolus 250 mL(Linked Group 1) 250 mL, intravenous, at 1,000 mL/hr, Administer over 15 Minutes, Every 15 min PRN, blood glucose less than 70 mg/dL and UNABLE to swallow/take PO glucose/juice., Starting on Sun06/03/19 at 1344, After treatment for hypoglycemia, recheck BG followed [...] glucose less than 70 mg/dL, Starting on Sun06/03/19 at 1344, If patient is alert and able to [...] unable to take PO glucose/jiuce., Starting on Sun06/03/19 at 1344, After Glucagon is administered, position patient on [...] unit/mL injection (CANCELED) As needed, Starting on Sun06/03/19 at 0906, Intra-Op 0906 (Given - Provider: Zan Price MD - Comment: Mixed with 500mL normal saline)0914 (Canceled Entry - Provider: Jazmyne Lan CRNA) HYDROcodone-acetaminophen (NORCO) 5-325 mg per tablet 1 tablet (CANCELED) 1 tablet, oral, Every 4 hours PRN, 1st line for pain, Starting on Sun06/03/19 at 1336, Indications: Pain 1427 (Given - Provider: Jeaneth Rapp RN)1919 (Given - Provider: Sindhu Olvera RN) 0213 (Given - Provider: Sindhu Olvera RN) ipratropium-albuterol (DUO-NEB) 0.5-2.5 mg/3 mL nebulizer solution 3 mL (COMPLETED) 3 mL, nebulization, Once as needed, wheezing, Starting on Sun06/03/19 at 1112, For 1 dose, Phase I, Notify Anesthesiologist., Indications: Bronchospastic Pulmonary Disease 1115 (Given - Provider: Chester Stahl, SCALE EXPERT) ondansetron (ZOFRAN) injection 4 mg(Linked Group 2) 4 mg, intravenous, Administer over 2 Minutes, Every 6 hours PRN, nausea, vomiting, if not tolerating PO, Starting on Sun06/03/19 at 1336, Indications: Nausea and Vomiting, Nausea and Vomiting ondansetron ODT (ZOFRAN-ODT) disintegrating tablet 4 mg(Linked Group 2) 4 mg, oral, Every 6 hours PRN, nausea, vomiting, Starting on Sun06/03/19 at 1336, Indications: Nausea and Vomiting, Nausea and Vomiting sodium chloride 0.9 % irrigation (CANCELED) As needed, Starting on Sun06/03/19 at 0906, Intra-Op 0906 (Given - Provider: Zan Price MD - Comment: 500 mL for irrigation plain, 500 mL mixed with 5,000 units heparin) sodium chloride 0.9% flush 0.5-20 mL 0.5-20 mL, intra-catheter, As needed, line care, Starting on Sun06/03/19 at 1336, Flush volume based on line type and size. Flush before and after each use. thrombin-bovine 5,000 unit nasal spray syringe (CANCELED) As needed, Starting on Sun06/03/19 at 0908, Intra-Op 0908 (Given - Provider: Zan Price MD - Comment: Surgical site) traMADol (ULTRAM) tablet 50 mg 50 mg, oral, Every 4 hours PRN, 1st line for pain, Starting on Sun06/04/19 at 1002 1125 (Given - Provid er: Jeaneth Rapp RN) Linked Groups Order Group 1: dextrose oral liquid liquid 15 gJump to med 15 g, oral, Every 15 min PRN, low blood sugar, blood glucose less than 70 mg/dL, Starting on Sun06/03/19 at 1344, If patient is alert and able to [...] UNABLE to swallow/take PO glucose/juice., Starting on Sun06/03/19 at 1344, After treatment for hypoglycemia, recheck BG followed [...] 6 hours PRN, nausea, vomiting, Starting on Sun06/03/19 at 1336, Indications: Nausea and Vomiting, Nausea and Vomiting Or ondansetron (ZOFRAN) injection 4 mgJump to med 4 mg, intravenous, Administer over 2 Minutes, Every 6 hours PRN, nausea, vomiting, if not tolerating PO, Starting on Sun06/03/19 at 1336, Indications: Nausea and Vomiting, Nausea and Vomiting documented in this encounter Orders Medications Ordered That Drew ht Not Have Been Administered Count Last Ordered Date First Ordered Date magnesium sulfate 2 g/50 mL in water (premix) 2 g 2 06/04/2019 06/03/2019 magnesium sulfate 4 g/100 mL in water (premix) 4 g 1 06/04/2019 traMADol (ULTRAM) tablet 50 mg 1 06/04/2019 acetaminophen (TYLENOL) tablet 1,000 mg 1 1 aspirin enteric coated tablet 81 mg 1 06/03 calcium gluconate 2 g in sod ium chloride 0.9% 100 mL IVPB 1 06/03/2019 ceFAZolin (ANCEF) 1 gram/10 mL in sterile water (premix) - ADS Override Pull 1 06/03/2019 celecoxib (CeleBREX) capsule 400 mg 1 06/03 clindamycin (CLEOCIN) 600 mg /50 mL in sodium chloride 0.9% (premix) piggyback - ADS Override Pull 1 06/03/2019 clindamycin (CLEOCIN) 600 mg /50 mL in sodium chloride 0.9% (premix) piggyback 600 mg 1 06/03/2019 clopidogrel (PLAVIX) tablet 75 mg 1 019 dextrose (D10W) 10% bolus 250 mL 1 06/03/20 19 dextrose oral liquid liquid 15 g 1 06/03/20 19 DOPamine in dextrose 5% 400 mg/250 mL (1,600 mcg/mL) infusion (premix) 1 06/03/2019 DOPamine in dextrose 5% 400 mg/250 mL (1,600 mcg/mL) infusion (premix) - ADS Override Pull 1 06/03/2019 famotidine (PEPCID) tablet 20 mg 1 06/03/20 19 fentaNYL (SUBLIMAZE) preserv ative free injection 25 mcg 1 06/03/2019 glucagon injection 1 mg 1 06/03/2019 HYDROcodone-acetaminophen (N ORCO) 5-325 mg per tablet 1 tablet 1 06/03/2019 insulin lispro (HumaLOG) inj ection 1-3 Units 2 06/03/2019 insulin lispro (HumaLOG) inj ection 1-5 Units 1 06/03/2019 ipratropium-albuterol (DUO-N EB) 0.5-2.5 mg/3 mL nebulizer solution 3 mL 1 06/03/2019 Lactated Ringer's (LR) infusion 1 9 levothyroxine (SYNTHROID) tablet 75 mcg 1 1 losartan (COZAAR) tablet 50 mg 1 06/03/2019 metFORMIN (GLUCOPHAGE) tablet 1,000 mg 1 metoprolol (LOPRESSOR) tablet 25 mg 1 06/03 naloxone (NARCAN) 0.4 mg/mL injection 0.04-0.4 mg 1 06/03/2019 niCARdipine (CARDENE) 25,000 mcg in sodium chloride 0.9% 250 mL (100 mcg/mL) infusion 2 06/03/2019 06/02/2019 ondansetron (ZOFRAN) injection 4 mg 1 06/03 ondansetron ODT (ZOFRAN-ODT) disintegrating tablet 4 mg 1 06/03/2019 PARoxetine (PAXIL) tablet 20 mg 1 9 phenylephrine (ANNABELLA-SYNEPHRIN E) 1 mg/10 mL (100 mcg/mL) in sodium chloride 0.9% (premix) 100 mcg 1 06/03/2019 simvastatin (ZOCOR) tablet 40 mg 1 06/03/20 SITagliptin (JANUVIA) tablet 100 mg 1 06/03 sodium chloride 0.9% flush 0.5-20 mL 3 03/2019 Lab Orders Without Results Count Last Ordered D ate First Ordered Date POCT GLUCOSE DEVICE 5 06/04/2019 06/03/20 19 Diet Count Last Ordered Date First Orde red Date ADULT DISCHARGE DIET 1 06/04/2019 Nursing Count Last Ordered Date First Orde red Date DISCHARGE ACTIVITY 6 06/04/2019 DISCHARGE CALL PROVIDER 2 06/04/2019 DISCHARGE DRESSING 4 06/04/2019 DISCHARGE INSTRUCTIONS 2 06/04/2019 OTHER FOLLOW UP 1 06/04/2019 ARTERIAL LINE CHECK 1 06/03/2019 WOUND CARE 1 06/03/2019 CORE MEASURES Count Last Ordered Date First Ord ered Date REASON FOR NO VTE PROPHYLAXIS AT ADMISSION 1 06/03/2019 documented in this encounter Care Teams Skip Miner Blasting Relationship Specialty Start Date End Date Robbie Haywood MD [address] [place] [address] PCP - General 12/29/18 12/13/20 Zan Price MD [address] [facility] [place] [place] [address] Surgeon Neurosurgery 01/02/19 documented as of this encounter
--- OUTSIDE RECORDS SUMMARY | 2024-08-30 18:58 | XMS_ITS | Encounter Summary ---
Author Organization [facility] Address [address] [place] [address] Care Team Providers Care Railway Yard Assistant Name Role Phone Robbie Haywood MD Primary Care Provider [phone] Zan Lee MD Unavailable [phone] Reason for Visit * Reason Onset Date Comments Med change from Eliquis to warfarin 10/19/2020 Encounter Details Date Type Department Care Team (Late Contact Info) Description 10/19/2020 Telephone [facility] Cardiology [address] [facility] [address] [place] [address] Lovely Nuñez NP [address] [facility] [address] [place] [address] Med change from Eliquis to warfarin Social History Tobacco Use Types Packs/Day Years [...] on file Legal Sex Female 3:00 AM CORRECTIONS CADET Gender Identity Not on file Sexual Orientation Not on file documented as of this encounter Ordered Prescriptions Prescription Sig Dispense Quantity Refills Last Filled Start Date End Date warfarin (COUMADIN) 2 mg tablet Take 2 tablets (4 mg total) by mouth daily Take 4mg daily or as directed by physician. 60 tablet 11 10/20/2020 2 documented in this encounter Miscellaneous Notes * Telephone Encounter - Jonathan Hicks RN - 10/21/2020 12:33 PM CORRECTIONS CADET Noted, thank you! ECTIONS CADET * Telephone Encounter - Lovely Nuñez NP - 10/21/2020 12:17 PM CORRECTIONS CADET Thank you Jonathan. Yes, her therapeutic range is 2.0-3.0. Noted, about not mentioning lung nodule if daughter present. ECTIONS CADET * Addendum Note - Jonathan Hicks RN - 10/20/2020 3:18 PM CSTAddended by: JONATHAN HICKS on: 10/20/2020 03:18 PM Modules accepted: Orders ECTIONS CADET * Telephone Encounter - Jonathan Hicks RN - 10/20/2020 3:10 PM CORRECTIONS CADET Spoke with pt, reviewed message from CT. Pt verbalized understanding and already picked up her prescription. Discussed warfarin, taking her prescription every evening, foods with vit K, and told her we would discuss at more length with her at her appt next week. Pt will have her blood drawn next week at [place] and going forward. Warfarin education folder prepared and at the nurses desk for pt at her next appt on 10/28. Pt's dgt may come with her to her next appt-she does not want anything mentioned to her dgt about the lung nodule that was found recently. Pt hasnt shared that information withher children yet and is still in the workup phase. Will forward to CT as FYI. CT, what should her range be 2.0-3.0? ECTIONS CADET ECTIONS CADET * Telephone Encounter - Sue Santos - 10/20/2020 2:39 PM CST Pt has requested a return call to discuss the instructions on her new RX cb [phone] ECTIONS CADET * Addendum Note - Jonathan Hicks RN - 10/20/2020 12:03 PM CSTAddended by: JONATHAN HICKS on: 10/20/2020 12:03 PM Modules accepted: Orders ECTIONS CADET * Telephone Encounter - Jonathan Hicks RN - 10/20/2020 12:03 PM CORRECTIONS CADET Called pt and LM on VM discussing message from CT. Sent new Rx to pharm. Requested pt callback to review instructions. ECTIONS CADET * Telephone Encounter - Lovely Nuñez NP - 10/19/2020 3:43 PM CORRECTIONS CADET Today Dr. Trejo performed RANDALL but could not perform cardioversion b/c there was still significantthrombus seen in left atrium. Dr. Trejo wants pt to transition from Eliquis to warfarin as soon as possible. He relayed this info to pt's dtr Shelley, but pt was too sedated to explain. Please call pt on Sunday and explain this to her. Please send Rx for warfarin 2 mg tablets to her pharmacy. She should take her last dose of warfarin Sun evening and then start warfarin the very next day (). Take warfarin 4 mg daily and check first INR in one week. Keep appt with me on October 28. Since October 28 will be one week after the med change, she could get first INR that day. Thank you. 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 therapy weekly for 52 Occurrences starting 10/20/2020 until 10/20/2021 documented as of this encounter Visit Diagnoses Diagnosis Paroxysmal atrial flutter (CMS/HCC) (HCC)- Primary computer terminal operator current use of anticoagulant therapy documented in this encounter Discontinued Medications Medication Sig Discontinue Reason Start Date End Da te apixaban (ELIQUIS) 5 mg tablet every 12 (twelve) hours Other 10/20/2020 documented as of this encounter Care Teams Railway Yard Assistant Relationship Specialty Start Date End Date Robbie Haywood MD [address] [place] [address] PCP - General 12/29/18 12/13/20 Zan Lee MD [address] [place] [address] Surgeon Neurosurgery 01/02/19 documented as of this encounter
--- OUTSIDE RECORDS SUMMARY | 2024-08-30 18:58 | XMS_ITS | Encounter Summary ---
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
--- OUTSIDE RECORDS SUMMARY | 2024-08-30 18:58 | XMS_ITS | Encounter Summary ---
Author Organization [facility] Address [address] [place] [address] Care Team Providers Care General Milling Superintendent Name Role Phone Robbie Haywood MD Primary Care Provider [phone] Zan Lee MD Unavailable [phone] Jovita Bermudez MD Primary Care Provider [phone] Encounter Details Date Type Department Care Team (Late st Contact Info) Description 12/07/2020 Telephone [facility] Cardiology [address] [facility] [facility] [address] [facility] [address] [place] [address] Anderson Trejo MD [address] [address] Social History Tobacco Use Types [...] on file 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 Gender Identity Not on file Sexual Orientation Not on file documented as of this encounter Miscellaneous Notes * Telephone Encounter - Bree Walsh RN - 12/07/2020 3:23 PM CDT See anticoag flowsheet * Telephone Encounter - JamilalilianaBrigitte - 12/07/2020 3:16 PM CDT Pt calling for results of blood work she had drawn at [place] yesterday documented in this encounter Plan of Treatment Not on file documented as of this encounter Visit Diagnoses Not on filedocumented in this encounter Care Teams General Milling Superintendent Relationship Specialty Start Date End Date Robbie Haywood MD [address] [place], [place] [id number] PCP - General 12/29/18 12/13/20 Jovita Bermudez MD [address] [place] [address] PCP - General Family Medicine 12/14/20 Zan Lee MD [address] [place] [address] Surgeon Neurosurgery 01/02/19 documented as of this encounter
--- OUTSIDE RECORDS SUMMARY | 2024-08-30 18:58 | XMS_ITS | Encounter Summary ---
Author Organization [facility] Address [address] [place] [address] Care Team Providers Care Mortgage Loan Interviewer Name Role Phone Robbie Haywood MD Primary Care Provider [phone] Zan Lee MD Unavailable [phone] Encounter Details Date Type Department Care Team (Late st Contact Info) Description 11/25/2020 Telephone [facility] Cardiology [address], [place] [id number] Anderson Trejo MD [address] [facility] [address] [place] [address] Social History Tobacco Use Types [...] on file 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 Her last INR was normal on 10/29. She was due for another INR on 11/19. I advised the patient to go to the lab today and get her INR checked as she may be high which would explain the increased bruising etc. I let her know she has to be compliant and write down her correct dose and when sheis supposed to get her INR rechecked because she could end up in the hospital with bleeding or a clot if she was too low. The patient is going to go first thing in the morning. I let her know usually people who are on warfarin who are in the normal range tolerate the medication ok but that people are still careful as they are at risk for bruising/bleeding easily. Patient verbalized understanding. I will look for her INR results and call pt back tomorrow. * Telephone Encounter - Judson Uriarte RN - 11/25/2020 10:48 AM CDT I called the patient back and she did not answer, I left a message on the [facility] voicemail.I willtry and mendez her again later. * Telephone Encounter - Latonya Bernal - 11/25/2020 9:17 AM CDT Patient says she was put on warfarin a month ago , and now her right leg is bruised and very painful for the last 3-4 weeks, and her right eye has a broken blood vessel. documented in this encounter Plan of Treatment Not on file documented as of this encounter Visit Diagnoses Not on filedocumented in this encounter Care Teams Mortgage Loan Interviewer Relationship Specialty Start Date End Date Robbie Haywood MD [address] [place] [id number] PCP - General 12/29/18 12/13/20 Zan Lee MD [address] [place] [address] Surgeon Neurosurgery 01/02/19 documented as of this encounter
--- OUTSIDE RECORDS SUMMARY | 2024-08-30 18:58 | XMS_ITS | Encounter Summary ---
Author Organization [facility] Address [address] [facility] [address] [place] [address] Care Team Providers Care Cleat Layer Name Role Phone Robbie Haywood MD Primary Care Provider [phone] Zan Lee MD Unavailable [phone] Reason for Visit * Reason Comments Hospital Follow Up Encounter Details Date Type Department Care Team ([facility] Contact Info) Description 09/24/2020 11:00 AM MARGIN ANALYST Office Visit [facility] Cardiology [address] [facility] [address] [place] [address] Lovely Nuñez NP [address] [facility] [address] [place] [address] Atrial fibrillation, unspecified type (CMS/HCC) (Primary Dx); Thrombus of left atrial appendage; Chronic systolic congestive heart failure (CMS/HCC); Cardiomyopathy, unspecified type (CMS/HCC); At risk for [...] on file Legal Sex Female 3:00 AM MARGIN ANALYST Gender Identity Not on file Sexual Orientation Not on file documented as of this encounter Last Filed Vital Signs Vital Sign Reading Time Taken Comments Blood Pressure 90/56 09/24/2020 10:59 AM MARGIN ANALYST Pulse 75 09/24/2020 10:59 AM MARGIN ANALYST Temperature - - Respiratory Rate - - Oxygen Saturation 95% 09/24/2020 10:59 AM MARGIN ANALYST Inhaled Oxygen Concentration - - Weight 95.3 kg (210 lb) 09/24/2020 10:59 AM MARGIN ANALYST Height 165.1 cm (5' 5 ) 09/24/2020 10:59 AM MARGIN ANALYST Body Mass Index 34.95 09/24/2020 10:59 AM MARGIN ANALYST documented in this encounter Patient Instructions * Patient Instructions* Lovely Nuñez NP - 09/24/2020 11:00 AM MARGIN ANALYST Weigh yourself every morning after you urinate. Record your weights. Call us with weight gain of 3 or more pounds in 1 day, and/or 5 or more pounds in 1 week. There are changes that could mean you [...] appetite, feeling full or bloated, or nauseated Follow a low salt diet, with a goal of less than 2,000mg of sodium per day (pay attention to your portion sizes). One of the diets that fits this pattern is the DASH (Dietary Approaches to Stop Hypertension) eating plan. Continue taking Eliquis (the blood thinner). This is to protect you from a blood clot that could cause a stroke. Call our office immediately if you notice any unusual bleeding like blood in your stool, urine, vomit, or sputum. If you have any kind of head injury (such as a fall or car accident) go to the emergency room to have your head checked for bleeding. IN ANALYST documented in this encounter Progress Notes * Lovely Nuñez, ARVIN - 09/24/2020 11:00 AM CST Images from the original note were not included. [facility] Cardiology [address] [place] [id number] Date of Visit: 09/24/2020 Patient ID: Tressa Myers 1955 Chief Complaint: Tressa Myers is a 65 y.o. female who comes to the office for hospital follow- up appointment after she was treated for AFib with RVR and CHF. History of Present Illness: Tressa Myers is [...] for AMOR. She was previously followed by custom harvester Dr. Nunn but had not seen him in about 2 years. She presented to [facility] on 09/07/2020 with complaint of progressively [...] a smallASD, moderate to severe TR and tube-[id number] MR. There was also large intramural plaque [...] and she ask for the information for [facility]. She feels quite [...] process of applying for patient's assistance with [employer]. Records that I personally reviewed on the day of this visit include: (the interpretation is outlined in the HPI above) August 2020 [facility] inpatient records including the consultation note from Dr. Trejo, cardiology progress notes, TTE report, RANDALL report, discharge summary. I have also reviewed: allergies, current medications, [...] patient is not nervous/anxious. Vital Signs: BP 90/56 (BP Location: Right arm, Patient Position: Sitting) Pulse 75 Ht 165.1 cm (5' 5 ) Wt95.3 kg (210 lb) SpO2 95% BMI 34.95 kg/m?? Physical Exam Constitutional: She is oriented to person, place, and time. She appears well- developed. No distress. Obese HENT: Head: Normocephalic and atraumatic. Nose: Nose normal. Wearing a mask Eyes: Pupils are equal, round, and reactive to light. Conjunctivae and EOM are normal. No scleral icterus. Neck: Normal range of motion. No JVD present. No tracheal deviation present. Cardiovascular: Normal rate and normal heart sounds. An irregular rhythm present. No murmur heard. Apical heart rate 88 bpm Pulmonary/Chest: Effort normal. No respiratory distress. She has wheezes in the right upper field and the left upper field. Abdominal: Soft. Bowel sounds are normal. There is no abdominal tenderness. Musculoskeletal: Normal range of motion. General: No edema. Neurological: She is alert and oriented to person, place, and time. Skin: Skin is warm and dry. Scratch wagner on both forearms and lower back Psychiatric: She has a normal mood and affect. Allergies Allergen Reactions ??? Cefazolin Rash and Wheezing ??? Lisinopril Cough Current Outpatient Medications: ??? apixaban (ELIQUIS) 5 mg tablet, every 12 (twelve) hours, Disp: , Rfl: ??? ascorbic acid (ascorbic acid with dee [...] mcg tablet, Take 75 mcg by mouth group practice pediatrician before breakfast , Disp: , Rfl: 3 [...] by mouth nightly , Disp: , Rfl: Lab Results Component Value Date POTASSIUM 4.0 06/04/2019 BUNSER 10 06/04/2019 CREATININE 0.39 (L) 06/04/2019 CHOL 151 12/30/2018 TRIG 135 12/30/2018 LDL 15 02/23/2014 LDLCALC 85 12/30/2018 HDL 39 (L) 12/30/2018 Assessment: Diagnoses and all orders for this visit: Atrial fibrillation, unspecified type (CMS/HCC) (Primary) Thrombus of left atrial appendage Chronic systolic congestive heart failure (CMS/HCC) Cardiomyopathy, unspecified type (CMS/HCC) At risk for sleep apnea Plan/Recommendations: On exam today she sounds like she is still in atrial fibrillation. I advise planning for repeat TEEto reassess the left atrial appendage thrombus and perform a cardioversion if possible. The patientagrees. I explained that she needs to remain on Eliquis uninterrupted for 30 days before this is attempted again. My staff will get this scheduled. She has been compliant with Eliquis thus far. She is not having any bleeding problems. During hospitalization she was treated for CHF and found to have a cardiomyopathy. Etiology and chronicity are unclear at this point. Currently she is euvolemic. Her weight since discharge have gradually declined. Continue furosemide 20 mg b.i.d.. Continue metoprolol and losartan. Because of her soft blood pressure her dosages are unable to be titrated at this time. Repeat ischemic evaluation will need to be considered in the near future. She had positive apnea link in the hospital. She has daytime somnolence. Her PCP is going to arrange for a sleep study. I explained that treating her sleep apnea can assist in the treatment of her AFib and cardiomyopathy. I will plan to see her back the week after the RANDALL/ cardioversion, and I will also get her scheduled for a future follow-up with Dr. Trejo. Lovely Nuñez, ANP- Nurse Practitioner with [facility] Cardiology This note is dictated and transcribed using [employer] Fluency Direct Software. Track And Field Coach variancesmay occur. Despite proofreading, typographical errors may occur. Cosigned by Anderson Trejo MD at 09/24/2020 4:12 PM MARGIN ANALYST IN ANALYST IN ANALYST documented in this encounter Plan of Treatment Not on file documented as of this encounter Visit Diagnoses Diagnosis Atrial fibrillation, unspecified type (HCC)- Primary Thrombus of left atrial appendage Chronic systolic congestive heart failure (CMS/HCC) (HCC) Cardiomyopathy, unspecified type (HCC) At risk for sleep apnea documented in this encounter Discontinued Medications Medication Sig Discontinue Reason Start Date End Da te metoprolol (LOPRESSOR) 25 mg tablet Take 100 mg by mouth nightly Dose adjustment 05/01/2019 09/24/2020 clopidogrel (PLAVIX) 75 mg tablet Take 1 tablet by mouth nightly Therapy completed 09/24/2020 documented as of this encounter Historical Medications * This list may reflect changes made after this encounter. empagliflozin (JARDIANCE) 10 mg tablet 2.5 tablets (25 mg total) 07/19/2020 03/27/2023 metoprolol XL (TOPROL-XL) 100 mg 24 hr tablet Take 150 mg by mouth daily 02/08/2021 furosemide (LASIX) 40 mg tablet Take 20 mg by mouth daily 03/27/2023 apixaban (ELIQUIS) 5 mg tablet every 12 (twelve) hours 10/20/2020 added in this encounter Care Teams Cleat Layer Relationship Specialty Start Date End Date Robbie Haywood MD [address] [place], [place] [id number] PCP - General 12/29/18 12/13/20 Zan Lee MD [address] [place] [address] Surgeon Neurosurgery 01/02/19 documented as of this encounter
--- OUTSIDE RECORDS SUMMARY | 2024-08-30 18:58 | XMS_ITS | Encounter Summary ---
Author Organization [facility] Address [address] [facility] [address] [place] [address] Care Team Providers Care River Transportation Worker Name Role Phone Robbie Haywood MD Primary Care Provider [phone] Zan Lee MD Unavailable [phone] Encounter Details Date Type Department Care Team (Late st Contact Info) Description 09/09/2020 Orders Only [facility] Cardiology [address] [place] [address] Anderson Trejo MD [address] [facility] [address] [place] [id number] Social History Tobacco Use Types Packs/Day Years [...] on file Legal Sex Female 3:00 AM DRAPERY HANGER Gender Identity Not on file Sexual Orientation Not on file documented as of this encounter Plan of Treatment Not on file documented as of this encounter Procedures Procedure Name Priority Date/Time Associated Diagnosis Comments CARDIOLOGY DOCUMENT SCAN Routine 09/09/2020 documented in this encounter Results * SCAN - CARDIOLOGY (09/09/2020) Anatomical Region Laterality Modality Other us Anderson Trejo MD CV CARDIAC SERVICES PROC EDURES Final Result documented in this encounter Visit Diagnoses Not on filedocumented in this encounter Care Teams River Transportation Worker Relationship Specialty Start Date End Date Robbie Haywood MD [address] [place] [address] PCP - General 12/29/18 12/13/20 Zan Lee MD [address] [place] [address] Surgeon Neurosurgery 01/02/19 documented as of this encounter
--- OUTSIDE RECORDS SUMMARY | 2024-08-30 18:58 | XMS_ITS | Encounter Summary ---
Author Organization [facility] Address [address] [facility] [address] [place] [address] Care Team Providers Care Sweeper Brush Maker Machine Name Role Phone Robbie Haywood MD Primary Care Provider [phone] Zan Lee MD Unavailable [phone] Encounter Details Date Type Department Care Team (Late st Contact Info) Description 10/19/2020 Orders Only [facility] Cardiology [address] [place] [address] Anderson Trejo MD [address] [facility] [address] [place] [id number] Social History Tobacco Use Types Packs/Day Years [...] on file Legal Sex Female 3:00 AM PROCESSING ASSOCIATE Gender Identity Not on file Sexual Orientation Not on file documented as of this encounter Plan of Treatment Not on file documented as of this encounter Procedures Procedure Name Priority Date/Time Associated Diagnosis Comments CARDIOLOGY DOCUMENT SCAN Routine 10/19/2020 documented in this encounter Results * SCAN - CARDIOLOGY (10/19/2020) Anatomical Region Laterality Modality Other Anderson Trejo MD CV CARDIAC SERVICES PROC EDURES Final Result documented in this encounter Visit Diagnoses Not on filedocumented in this encounter Care Teams Sweeper Brush Maker Machine Relationship Specialty Start Date End Date Robbie Haywood MD [address] [place] [address] PCP - General 12/29/18 12/13/20 Zan Lee MD [address] [place] [address] Surgeon Neurosurgery 01/02/19 documented as of this encounter
--- OUTSIDE RECORDS SUMMARY | 2024-08-30 18:58 | XMS_ITS | Encounter Summary ---
Author Organization [facility] Address [address] [facility] [address] [place] [address] Care Team Providers Care Corking Machine Operator Name Role Phone Robbie Haywood MD Primary Care Provider [phone] Zan Lee MD Unavailable [phone] Encounter Details Date Type Department Care Team (Late st Contact Info) Description 12/06/2020 Anticoagulation Visit [facility] Cardiology [address] [place] [address] Sandy Ratliff, JUSTICE Social History [...] on file Legal Sex Female 3:00 AM EXPLOSIVE ORDNANCE SPECIALIST Gender Identity Not on file Sexual Orientation Not on file documented as of this encounter Plan of Treatment Not on file documented as of this encounter Procedures Procedure Name Priority Date/Time Associated Diagnosis Comments PROTIME-INR Routine 12/06/2020 documented in this encounter Results * (ABNORMAL) Protime-INR (12/06/2020) INR 2.10(A) 0.9 - 1.1 EXTERNAL LAB Blood specimen (specimen) us Historical Provider LAB BLOOD ORDERABLES Jennifer doran Result EXTERNAL LAB documented in this encounter Visit Diagnoses Not on filedocumented in this encounter Care Teams Corking Machine Operator Relationship Specialty Start Date End Date Robbie Haywood MD [address] [place] [address] PCP - General 12/29/18 12/13/20 Zan Lee MD [address] [place] [address] Surgeon Neurosurgery 01/02/19 documented as of this encounter
--- OUTSIDE RECORDS SUMMARY | 2024-08-30 18:58 | XMS_ITS | Encounter Summary ---
Author Organization [facility] Address [address] [facility] [address] [place] [address] Care Team Providers Care Opera Singer Name Role Phone Robbie Haywood MD Primary Care Provider [phone] Zan Lee MD Unavailable [phone] Encounter Details Date Type Department Care Team (Late st Contact Info) Description 11/12/2020 Telephone [facility] Cardiology [address] [place] [address] Anderson Trejo MD [address] [facility] [address] [place] [id number] Social History Tobacco Use Types Packs/Day Years [...] on file Legal Sex Female 3:00 AM RESIDENTIAL PLUMBER Gender Identity Not on file Sexual Orientation Not on file documented as of this encounter Miscellaneous Notes * Telephone Encounter - Sandy Ratliff RN - 11/12/2020 4:51 PM CDT Attempted to call patient again and only got a busy signal. * Telephone Encounter - Sandy Ratliff RN - 11/12/2020 4:40 PM CDT Patient phone went straight to multiple times. Tried *82 to try to break through the phones privacy setting and it gave a busy signal. I did leave a message on her VM informing her I would try calling back before I left today. That if her leg worsened or she was worried she may need to go to the. * Telephone Encounter - Brianna Jeffery - 11/12/2020 3:55 PM CDT Pt was at in August and was told she has a blood clot in one of her legs. Said her right knee swollen has been swollen for about a week and can hardly walk on it and wonders if that is where the vblood clot is. [phone] documented in this encounter Plan of Treatment Not on file documented as of this encounter Visit Diagnoses Not on filedocumented in this encounter Care Teams Opera Singer Relationship Specialty Start Date End Date Robbie Haywood MD [address] [place] [address] PCP - General 12/29/18 12/13/20 Zan Lee MD [address] [place] [address] Surgeon Neurosurgery 01/02/19 documented as of this encounter
--- OUTSIDE RECORDS SUMMARY | 2024-08-30 18:58 | XMS_ITS | Encounter Summary ---
Author Organization [facility] Address [address] [facility] [address] [place] [address] Care Team Providers Care Small Craft Operator Name Role Phone Robbie Haywood MD Primary Care Provider Zan Lee MD Unavailable [phone] Encounter Details Date Type Department Care Team (Late st Contact Info) Description 09/24/2020 Telephone [facility] Cardiology [address] [place] [address] Lovely Nuñez NP [address] [place] [address] Social History Tobacco Use Types [...] on file Legal Sex Female 3:00 AM FINGERPRINT CLERK Gender Identity Not on file Sexual Orientation Not on file documented as of this encounter Miscellaneous Notes * Telephone Encounter - Ilene Hicks RN - 09/27/2020 11:31 AM FINGERPRINT CLERK Spoke with pt, reviewed RANDALL/CV instructions with pt, she verbalized understanding. ERPRINT CLERK * Telephone Encounter - Cristiana Zhao - 09/27/2020 11:03 AM CST Pt called to speak with JUSTICE Odom in regards to her upcoming procedure. ERPRINT CLERK * Telephone Encounter - Ilene Hicks RN - 09/27/2020 10:13 AM FINGERPRINT CLERK LM for pt to callback to discuss procedure instructions. ERPRINT CLERK * Telephone Encounter - Ilene Hicks RN - 09/24/2020 3:01 PM FINGERPRINT CLERK Pt in office, CT requested I schedule RANDALL/CV with anesthesia for pt in [address] Cherry to discuss his schedule, he said he would call back. Discussed procedure with pt and sent her with instructions, told her I would call her with date and time of procedure and covid appt. Called [place] with scheduling and she told me anesthesia's availability for procedure-schedule procedure. Called pt and LM on VM with date and time of procedure and covid appt. Requested callback to further discuss. ERPRINT CLERK documented in this encounter Plan of Treatment Not on file documented as of this encounter Visit Diagnoses Not on filedocumented in this encounter Care Teams Small Craft Operator Relationship Specialty Start Date End Date Robbie Haywood MD [address] [place] [address] PCP - General 12/29/18 12/13/20 Zan Lee MD [address] [place] [address] Surgeon Neurosurgery 01/02/19 documented as of this encounter
--- OUTSIDE RECORDS SUMMARY | 2024-08-30 18:58 | XMS_ITS | Encounter Summary ---
Author Organization [facility] Address [address] [facility] [address] [place] [address] Care Team Providers Care Electrophysiology Technologist Name Role Phone Robbie Haywood MD Primary Care Provider [phone] Zan Lee MD Unavailable Encounter Details Date Type Department Care Team (Late st Contact Info) Description 11/26/2020 Anticoagulation Visit [facility] Cardiology [address] [place] [address] Bree Walsh, RN Social History [...] on file Legal Sex Female 3:00 AM RADIOLOGICAL EQUIPMENT SPECIALIST Gender Identity Not on file Sexual Orientation Not on file documented as of this encounter Plan of Treatment Not on file documented as of this encounter Procedures Procedure Name Priority Date/Time Associated Diagnosis Comments PROTIME-INR Routine 11/26/2020 documented in this encounter Results * (ABNORMAL) Protime-INR (11/26/2020) INR 8.10(A) 0.9 - 1.1 EXTERNAL LAB Blood specimen (specimen) us Historical Provider LAB BLOOD ORDERABLES Jennifer doran Result EXTERNAL LAB documented in this encounter Visit Diagnoses Not on filedocumented in this encounter Care Teams Electrophysiology Technologist Relationship Specialty Start Date End Date Robbie Haywood MD [address] [place] [address] PCP - General 12/29/18 12/13/20 Zan Lee MD [address] [place] [address] Surgeon Neurosurgery 01/02/19 documented as of this encounter
--- OUTSIDE RECORDS SUMMARY | 2024-08-30 18:58 | XMS_ITS | Encounter Summary ---
Author Organization [facility] Address [address] [facility] [address] [place] [address] Care Team Providers Care Otr Company Driver Name Role Phone Robbie Haywood MD Primary Care Provider [phone] Zan Lee MD Unavailable [phone] Encounter Details Date Type Department Care Team (Late st Contact Info) Description 09/10/2020 Orders Only [facility] Cardiology [address] [facility] [address] [place] [address] Naga Calle MD [address] [place], [place] [id number] Social History Tobacco Use Types Packs/Day Years [...] on file Legal Sex Female 3:00 AM MANUFACTURING ENGINEER Gender Identity Not on file Sexual Orientation Not on file documented as of this encounter Plan of Treatment Not on file documented as of this encounter Procedures Procedure Name Priority Date/Time Associated Diagnosis Comments CARDIOLOGY DOCUMENT SCAN Routine 09/10/2020 documented in this encounter Results * SCAN - CARDIOLOGY (09/10/2020) Anatomical Region Laterality Modality Other us Naga Calle MD CV CARDIAC SERVICES PROC EDURES Final Result documented in this encounter Visit Diagnoses Not on filedocumented in this encounter Care Teams Otr Company Driver Relationship Specialty Start Date End Date Robbie Haywood MD [address] [place], [place] [id number] PCP - General 12/29/18 12/13/20 Zan Lee MD [address] [place] [address] Surgeon Neurosurgery 01/02/19 documented as of this encounter
--- OUTSIDE RECORDS SUMMARY | 2024-08-30 18:58 | XMS_ITS | Encounter Summary ---
Author Organization [facility] Address [address] [facility] [address] [place] [address] Care Team Providers Care Sling Operator Name Role Phone Robbie Haywood MD Primary Care Provider [phone] Zan Lee MD Unavailable [phone] Encounter Details Date Type Department Care Team (Late st Contact Info) Description 12/07/2020 Anticoagulation Visit [facility] Cardiology [address] [place] [address] Bree Walsh, RN Social History [...] on file Legal Sex Female 3:[address] CLEARER Gender Identity Not on file Sexual Orientation [...] on filedocumented in this encounter Care Teams Sling Operator Relationship Specialty Start Date End Date Robbie Haywood MD [address] [place] [address] PCP - General 12/29/18 12/13/20 Zan Lee MD [address] [place] [address] Surgeon Neurosurgery 01/02/19 documented as of this encounter
--- OUTSIDE RECORDS SUMMARY | 2024-08-30 18:58 | XMS_ITS | Encounter Summary ---
Author Organization [facility] Address [address] [facility] [address] [place] [address] Care Team Providers Care Steelworker Name Role Phone Robbie Haywood MD Primary Care Provider [phone] Zan Lee MD Unavailable [phone] Encounter Details Date Type Department Care Team (Late st Contact Info) Description 09/14/2020 Telephone [facility] Cardiology [address] [facility] [address] [place] [address] Lovely Nuñez NP [address] [place] [address] Social History Tobacco Use Types [...] on file Legal Sex Female 3:00 AM PARTS CLEANER Gender Identity Not on file Sexual Orientation Not on file documented as of this encounter Miscellaneous Notes * Telephone Encounter - Ilene Hicks RN - 09/14/2020 11:06 AM PARTS CLEANER LM on pt VM explaining how furosemide works and it sounds like it is working. Advised pt to cont her dose until seen by CT next week in the office. Advised her to callback with any questions or concerns. S CLEANER * Telephone Encounter - Sue Santos - 09/14/2020 8:43 AM CST Pt called asking if she could cut her Furosemide medication in half, due to her having to frequently urinate cb [phone] S CLEANER documented in this encounter Plan of Treatment Not on file documented as of this encounter Visit Diagnoses Not on filedocumented in this encounter Care Teams Steelworker Relationship Specialty Start Date End Date Robbie Haywood MD [address] [place] [address] PCP - General 12/29/18 12/13/20 Zan Lee MD [address] [place] [address] Surgeon Neurosurgery 01/02/19 documented as of this encounter
--- OUTSIDE RECORDS SUMMARY | 2024-08-30 18:58 | XMS_ITS | Encounter Summary ---
Author Organization [facility] Healthcare Address [address] [place] [address] Care Team Providers Care District Sales Coordinator Name Role Phone Robbie Haywood MD Primary Care Provider [phone] Zan Price MD Unavailable [phone] Encounter Details Date Type Department Care Team (Latest Contact Info) Description 06/03/2019 5:44 AM CDT - 06/04/2019 2:40 PM CDT Hospital Encounter [facility] Cardiac Intensive Care [address] [place] [address] [place] [address] [place] [address] History of CEA (carotid endarterectomy) (Primary Dx); Bilateral carotid artery occlusion; 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 ([facility]) Discharge Disposition: Discharge to home or self [...] on file Legal Sex Female 3:00 AM ORTHOPEDIC RN Gender Identity Not on file Sexual Orientation Not on file documented as of this encounter Last Filed Vital Signs Vital Sign Reading Time Taken Comments Blood Pressure 90/69 06/04/2019 2:20 PM CDT Pulse 71 06/04/2019 2:20 PM CDT Temperature 36.6 ??C (97.9 ??F) 06/04/2019 7:50 AM CD T Respiratory Rate 23 06/04/2019 2:20 PM CDT Oxygen Saturation 98% 06/04/2019 2:20 PM CDT Inhaled Oxygen Concentration - - Weight 98.7 kg (217 lb 9.5 oz) 06/04/2019 6:10 A M CDT Height 165.1 cm (5' 5 ) 06/03/2019 6:37 AM CDT Body Mass Index 36.21 06/03/2019 6:37 AM CDT documented in this encounter Discharge Diagnoses Diagnosis Occlusion and stenosis of right carotid artery - OCCLUSION AND STENOSIS OF RIGHT CAROTID ARTERY Chronic obstructive pulmonary disease, unspecified (HCC) - CHRONIC OBSTRUCTIVE PULMONARY DISEASE, UNSPECIFIED Gastro-esophageal reflux disease without esophagitis - GASTRO-ESOPHAGEAL REFLUX DISEASE WITHOUT ESOPHAGITIS Hypothyroidism, unspecified - HYPOTHYROIDISM, UNSPECIFIED Type 2 diabetes mellitus with other circulatory complications (HCC) - TYPE 2 DIABETES MELLITUS WITH OTHER CIRCULATORY COMPLICATIONS Hyperlipidemia, unspecified - HYPERLIPIDEMIA, UNSPECIFIED Other acute postprocedural pain - OTHER ACUTE POSTPROCEDURAL PAIN Hypotension, unspecified - HYPOTENSION, UNSPECIFIED Essential (primary) hypertension - ESSENTIAL (PRIMARY) HYPERTENSION Unspecified essential hypertension Atherosclerotic heart disease of [place] coronary artery without angina pectoris - ATHEROSCLEROTIC HEART DISEASE OF [place] CORONARY ARTERY WITHOUT ANGINA PECTORIS Nicotine dependence, cigarettes, uncomplicated - NICOTINE DEPENDENCE, CIGARETTES, UNCOMPLICATED 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) use of antithrombotics/antiplatelets - RESIDENTIAL (CURRENT) USE OF ANTITHROMBOTICS/ANTIPLATELETS residential (current) use of aspirin - RESIDENTIAL (CURRENT) USE OF ASPIRIN Hormone replacement therapy - HORMONE REPLACEMENT THERAPY Personal history of transient ischemic attack (TIA), and cerebral infarction without residual deficits - PERSONAL HISTORY OF TRANSIENT ISCHEMIC ATTACK (TIA), AND CEREBRAL INFARCTION WITHOUT RESIDUAL DEFICI Personal history of other diseases of the circulatory system - PERSONAL HISTORY OF OTHER DISEASES OF THE CIRCULATORY SYSTEM Presence of aortocoronary bypass graft - PRESENCE OF AORTOCORONARY BYPASS GRAFT Presence of coronary angioplasty implant and graft - PRESENCE OF CORONARY ANGIOPLASTY IMPLANT AND GRAFT 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) use of oral hypoglycemic drugs - RESIDENTIAL (CURRENT) USE OF ORAL HYPOGLYCEMIC DRUGS Other 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) drug therapy - OTHER RESIDENTIAL (CURRENT) DRUG THERAPY Allergy status to other drugs, medicaments and biological substances status - ALLERGY STATUS TO OTHER DRUGS, MEDICAMENTS AND BIOLOGICAL SUBSTANCES STATUS Allergy status to other antibiotic agents status - ALLERGY STATUS TO OTHER ANTIBIOTIC AGENTS STATUS Family history of ischemic heart disease and other diseases of the circulatory system - FAMILY HISTORY OF ISCHEMIC HEART DISEASE AND OTHER DISEASES OF THE CIRCULATORY SYSTEM documented in this encounter Discharge Summaries * Zan Price MD - 06/04/2019 2:40 PM CDT Inpatient Discharge Summary BRIEF OVERVIEW Admitting Provider: Zan Price MD Discharge Provider: No att. 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 Now presents for elective treatment RIGHT carotid [...] says it's OK. -Do not do any interactive media marketing director that cause you to twist, push or [...] as: SYNTHROID Take 75 mcg by mouth river captain before breakfast losartan 50 mg tablet Commonly [...] Specialty: Internal Medicine Relationship: PCP - General BRANDY - Alexis WALTERS (Adult Med) [address] [place] [id number] Next Steps: Follow up OPEDIC RN documented in this encounter Medications at Time of Discharge ascorbic acid (VITAMIN C) 500 mg tablet,chewable Take 1 tablet/chew tab (500 mg total) by mouth nightly aspirin 81 mg enteric coated tablet Take 1 tablet (81 mg total) by mouth nightly levothyroxine (SYNTHROID, LEVOTHROID) 75 mcg tablet Take 1 tablet (75 mcg total) by mouth river captain before breakfast 3 12/05/2018 metFORMIN (GLUCOPHAGE) 1,000 [...] / SEX: 64 y.o. / female ROOM: [place] [address] : 1955 DATE: 06/04/19 TIME IN: 14:08 [...] flutter (CMS/HCC) ??? Coronary artery disease involving [place] coronary artery of [place] heart without angina pectoris ??? History of [...] septum, probably diastolic dysfunction. LHC (05/07/13) (1) Vqwkjjn47% narrowings from proximal to distal RCA (2) [...] Left ??? CORONARY ARTERY BYPASS GRAFT ??? [place] LIGATE FALLOPIAN TUBE Tubal Ligation - (Added by TW Conv) ??? [place] PRQ TRLUML CORONARY STENT W/ANGIO ONE ART/BRNCH [...] transfers, ambulating, housekeeping, laundry, meal preparation, shopping, marketing financial analyst, medication management EQUIPMENT OWNED: NONE EQUIPMENT USED: [...] STRENGTH - LEFT: 4/5 HAND DOMINANCE: Right RN CLINICAL STRENGTH (RIGHT): good RN CLINICAL STRENGTH (LEFT): good RIGHT COORDINATION: intact LEFT COORDINATION: intact BALANCE: STATIC SITTING: good, supported, sitting in bedside chair MOBILITY / TRANSFERS: TRANSFER(S): sit to stand from bedside chair/stand to sit to bedside chair-independent LIVING SKILLS: UE DRESSING LOCATION: SITTING IN BEDSIDE CHAIR / RECLINER TASKS COMPLETED: [facility] COMPONENTS THAT REQUIRED ASSISTANCE (IF APPLICABLE): NONE [...] flutter (CMS/HCC) ??? Coronary artery disease involving [place] coronary artery of [place] heart without angina pectoris ??? History of [...] septum, probably diastolic dysfunction. LHC (05/07/13) (1) Wddtndu12% narrowings from proximal to distal RCA (2) [...] Left ??? CORONARY ARTERY BYPASS GRAFT ??? [place] LIGATE FALLOPIAN TUBE Tubal Ligation - (Added by TW Conv) ??? [place] PRQ TRLUML CORONARY STENT W/ANGIO ONE ART/BRNCH [...] 94% on RA PAIN: Pre-therapy pain level: 10 Pain location: Incision and throat Pain intervention: RN made aware Post-therapy pain level/response to intervention: 12/04 LE ASSESSMENTS: Right LE ROM: WFL Left LE ROM: WFL Right LE strength: 5/5 t/o Left LE strength: 5/5 t/o Coordination: Exny-zm-libd intact bilat Tone: no deficits noted MOBILITY: [...] consider this the discharge summary. * Lo Lofton, IT PROGRAMMER - 06/04/2019 7:27 AM CDT Surgical ICU [...] Course 06/03: R CEA with Dr. Price ([facility]) Objective Physical Exam: Neuro: awake, alert, oriented, [...] Intake/Output: Intake/Output Summary (Last 24 hours) at 06/04/2019 0727 Last data filed at 06/04/2019 0610 Gross [...] Basophil pct 0.4 % eGFR Collection Time: 10/08/19 1:59 PM Result Value Ref Range GFR [...] # Acute pain: - pain control , [place] PRN ?? # High grade right??asymptomatic stenosis [...] been reviewed with attending[facility] * Mady Castellanos PA - 06/03/2019 6:58 [...] Course 06/03: R CEA with Dr. Price ([facility]) Scheduled Medications: aspirin 81 mg oral Nightly [...] Left Radial (Active) Placement Date/Time: 06/03/19 (c) 0848 Size: 20 G Orientation: Left Location: Radial [...] last 24 hours: I/O: Date 06/02/19699 - 06/03/19658(Not Admitted) 06/03/19699 - 06/04/19 0659 Shift [id number] 5189-1323 24 Hour Total [id number] 5090-4709 24 Hour Total INTAKE P.O. 480 480 [...] # Acute pain: - pain control , [place] PRN # High grade right asymptomatic stenosis [...] septum, probably diastolic dysfunction. LHC (05/07/13) (1) Qfzlgng79% narrowings from proximal to distal RCA (2) [...] Left ??? CORONARY ARTERY BYPASS GRAFT ??? [place] LIGATE FALLOPIAN TUBE Tubal Ligation - (Added by TW Conv) ??? [place] PRQ TRLUML CORONARY STENT W/ANGIO ONE ART/BRNCH [...] by: Lo Lofton NP CRITICAL CARE: Team: EDD Shift: AM Level of Billing: Subsequent Hospital [...] plan with the patient's team and other medical/business transformation consultant staff. This time was in addition [...] plan with the patient's team and other medical/business transformation consultant staff. This time was in addition [...] plan with the patient's team and other medical/business transformation consultant staff. This time was in addition [...] Bernstein NP - 06/03/2019 1:45 PM CDT [facility] Critical Care Medicine Daily Progress Team: Community [...] of the distal septum, probably diastolic dysfunction. C (05/07/13) (1) Idalzsd99% narrowings from proximal to distal RCA (2) [...] Left ??? CORONARY ARTERY BYPASS GRAFT ??? [place] LIGATE FALLOPIAN TUBE Tubal Ligation - (Added by TW Conv) ??? [place] PRQ TRLUML CORONARY STENT W/ANGIO ONE ART/BRNCH [...] mcg tablet Take 75 mcg by mouth river captain before breakfast 3 06/02/2019 at Unknown time [...] bowel sounds : voiding without difficulty Skin: [place], warm, dry, right carotid incision covered w/ [...] 500ml for hypotension - pain control , [place] PRN - ASA, Plavix - ADAT - SSI - monitor renal function, electrolytes ,and UOP - H&H 12.4/37.4 PLT 242 INR 1.14 , CBC in AM. Monitor BRIAN drain - GERD- Pepcid - DVT PPX: SCD's , start Chemical PPX tomorrow ICU standards of care: Restraints: n/a Physical therapy/Activity: PT/OT Access: PIV, Left Rad [place] (06/03) Goals of care: Full code Community AM Assessment and plan has been reviewed with attending, Dr Delmar Bernstein NP [phone], RONNA 1 Critical Care Medicine [facility] in [facility] Cosigned by Alicia Jacobsen MD at 06/04/2019 [...] AA - 06/04/2019 7:11 AM CDT Patient: Tresas Myers Procedure(s): right carotid endarterectomy Patient location: [...] Outcome: Progressing Goals: Summary: * Plan of Care - Jeaneth Rapp RN - 06/03/2019 7:13 [...] OF SURGERY: 06/03/2019 SURGEON: Zan Price MD LEATHER TANNER: TAURUS ANESTHESIA: General ANESTHESIOLOGIST: Anesthesiologist: Evan Jara MD TIME CHECKER: Jazmyne Lan CRNA Complications: None Estimated Blood [...] due to embolism of left carotid artery ([facility]) 06/03/2019 11:09 AM CDT documented as of [...] due to embolism of left carotid artery ([facility]) POCT GLUCOSE DEVICE Routine 06/03/2019 1 0:56 AM CDT POCT GLUCOSE DEVICE Routine 06/03/2019 8 :15 AM CDT POCT GLUCOSE DEVICE Routine 06/03/2019 6 :13 AM CDT documented in this encounter Results * (ABNORMAL) POCT glucose (06/04/2019 12:04 PM CDT) Glucose, POC 208(H) 70 - 199 mg/dL [facility] Blood specimen (specimen) 06/04/2019 12:04 PM CDT 06/04/2019 12:04 PM CDT us Zan Price MD LAB POCT ORDERABLES - DEVICE F inal Result Performing Organization Address [facility] de Phone Number [facility] [address] [place] [phone] * POCT glucose (06/04/2019 7:29 AM CDT) Glucose, POC 124 70 - 199 mg/dL [facility] Blood specimen (specimen) 06/04/2019 7:29 AM CDT 06/04/2019 7:29 AM CDT Zan Price MD LAB POCT ORDERABLES - DEVICE F inal Result Performing Organization Address [facility] Co de Phone Number [facility] [address] [place] [address] * Critical Care (06/04/2019 7:27 AM CDT) [...] plan with the patient's team and other medical/business transformation consultant staff. This time was in addition [...] us Lo Lofton NP IN CLINIC/BEDSIDE LISY ZAINAB Final Result * eGFR (06/04/2019 3:08 AM CDT) [facility] eGFR 111 mL/min/1.7 3 m2 [facility] Comment: Interpretive Data Reference Interval Normal ?>/= 90 mL/min/1.73m2 Mildly decreased* ? 60 - 89 mL/min/1.73m2 Mildly to moderately decreased ?45 - 59 mL/min/1.73m2 Moderately to severely decreased ??30 - 44 mL/min/1.73m2 Severely decreased ?15 - 29 mL/min/1.73m2 Kidney Failure ?< 15 ??mL/min/1.73m2 *Relative to young adult level If -[place]ghan multiply value by 1.16. Estimated glomerular filtration [...] CDT 06/04/2019 3:15 AM CDT Do Bernstein IT PROGRAMMER LAB BLOOD ORDERABLES Fin al Result Performing Organization Address [facility] de Phone Number [facility] [address] [place] [address] * Magnesium (06/04/2019 3:08 AM CDT) Magnesium 1.6 1.4 - 2.5 mg/dL [facility] Blood specimen (specimen) 06/04/2019 3:08 AM CDT 06/04/2019 3:15 AM CDT Do Bernstein IT PROGRAMMER LAB BLOOD ORDERABLES Fin al Result Performing Organization Address [facility] de Phone Number [facility] [address] [place] [address] * Phosphorus (06/04/2019 3:08 AM CDT) Pathologist [facility] Phosphorus, pl 3.3 2.3 - 4.5 mg/dL [facility] Blood specimen (specimen) 06/04/2019 3:08 AM CDT 06/04/2019 3:15 AM CDT Do Shabnamdee Bernstein IT PROGRAMMER LAB BLOOD ORDERABLES Fin al Result Performing Organization Address [facility] de Phone Number [facility] [address] [place] [address] * (ABNORMAL) CBC without differential (06/04/2019 3:08 AM CDT) WBC 8.4 3.8 - 9.9 K/cumm [facility] Hgb 11.8(L) 11.9 - 15.5 g/dL [facility] Hct 37.0 35.6 - 45.5 % [facility] [...] 3:08 AM CDT 06/04/2019 3:13 AM CDT us Do Bernsteni IT PROGRAMMER LAB BLOOD ORDERABLES Fin al Result [facility] [address] [place] [address] * (ABNORMAL) Basic metabolic panel (06/04/2019 3:08 AM CDT) Sodium 141 135 - 145 mmol/L [facility] Potassium, pl 4.0 3.3 - 4.9 mmol/L [facility] Chloride 108 97 - 110 mmol/L [facility] CO2 24 22 - 32 mmol/L [facility] Anion gap 9 2 - 15 mmol/L [facility] BUN 10 8 - 25 mg/dL [facility] Creatinine 0.39(L) 0.60 - 1.10 mg/dL [facility] Glucose 130 70 - 199 mg/dL [facility] Comment: Interpretive Data Fasting glucose >/= 126 [...] 2017. Calcium 8.5 8.5 - 10.3 mg/dL [facility] Blood specimen (specimen) 06/04/2019 3:08 AM CDT 06/04/2019 3:15 AM CDT Do Bernstein IT PROGRAMMER LAB BLOOD ORDERABLES Fin al Result Performing Organization Address [facility] Co de Phone Number [facility] [address] [place] [address] * POCT glucose (06/04/2019 1:50 AM CDT) Glucose, POC 151 70 - 199 mg/dL [facility] Blood specimen (specimen) 06/04/2019 1:50 AM CDT 06/04/2019 1:50 AM CDT Zan Price MD LAB POCT ORDERABLES - DEVICE F inal Result Performing Organization Address [facility] de Phone Number [facility] [address] [place] [address] * POCT glucose (06/03/2019 9:17 PM CDT) Glucose, POC 151 70 - 199 mg/dL [facility] Blood specimen (specimen) 06/03/2019 9:17 PM CDT 06/03/2019 9:17 PM CDT Zan Price MD LAB POCT ORDERABLES - DEVICE F inal Result Performing Organization Address [facility] de Phone Number [facility] [address] [place] [address] * Critical Care (06/03/2019 6:58 PM CDT) [...] plan with the patient's team and other medical/business transformation consultant staff. This time was in addition to and separate from care provided by other practitioners on this day of service. ?? us Mady SAMS IN CLINIC/BEDSIDE ORDE RABLES Final Result * Critical Care (06/03/2019 4:35 [...] plan with the patient's team and other medical/business transformation consultant staff. This time was in addition [...] Result * eGFR (06/03/2019 1:59 PM CDT) eGFR 104 mL/min/1.7 3 m2 [facility] Comment: Interpretive Data Reference Interval Normal ?>/= 90 mL/min/1.73m2 Mildly decreased* ? 60 - 89 mL/min/1.73m2 Mildly to moderately decreased ?45 - 59 mL/min/1.73m2 Moderately to severely decreased ??30 - 44 mL/min/1.73m2 Severely decreased ?15 - 29 mL/min/1.73m2 Kidney Failure ?< 15 ??mL/min/1.73m2 *Relative to young adult level If -[place] multiply value by 1.16. Estimated glomerular filtration [...] 06/03/2019 2:07 PM CDT us Do Bernstein IT PROGRAMMER LAB BLOOD ORDERABLES Fin al Result [facility] [address] [place] [address] * (ABNORMAL) Differential, auto (06/03/2019 1:59 PM CDT) Neutrophil abs 7.4(H) 1.7 - 6.5 K/cumm [facility] Imm gran abs 0.0 0.0 - 0.1 K/cumm [facility] Lymphocyte abs 0.7(L) 0.8 - 3.3 K/cumm [facility] Monocyte abs 0.2 0.2 - 0.8 K/cumm [facility] Eosinophil abs 0.0 0.0 - 0.5 K/cumm [facility] Basophil abs 0.0 0.0 - 0.1 K/cumm [facility] Neutrophil pct 88.6 % [facility] Comment: Interpretive Data Percent cell count reference ranges are not reported, since discordance with absolute values may lead to misinterpretation of CBC data. Current Interpretive Data was last revised on 2017. Imm gran pct 0.5 % [facility] Comment: Interpretive Data Percent cell count reference ranges are not reported, since discordance with absolute values may lead to misinterpretation of CBC data. Current Interpretive Data was last revised on 2017. Lymphocyte pct 8.4 % [facility] Comment: Interpretive Data Percent cell count reference ranges are not reported, since discordance with absolute values may lead to misinterpretation of CBC data. Current Interpretive Data was last revised on 2017. Monocyte pct 2.0 % [facility] Comment: Interpretive Data Percent cell count reference ranges are not reported, since discordance with absolute values may lead to misinterpretation of CBC data. Current Interpretive Data was last revised on 2017. Eosinophil pct 0.1 % [facility] Comment: Interpretive Data Percent cell count reference ranges are not reported, since discordance with absolute values may lead to misinterpretation of CBC data. Current Interpretive Data was last revised on 2017. Basophil pct 0.4 % [facility] Comment: Interpretive Data Percent cell count reference ranges are not reported, since discordance with absolute values may lead to misinterpretation of CBC data. Current Interpretive Data was last revised on 2017. Blood specimen (specimen) 06/03/2019 1:59 PM CDT 06/03/2019 2:02 PM CDT us Do Bernstein NP LAB BLOOD ORDERABLES Fin al Result [facility] [address] [place] [address] * (ABNORMAL) Protime-INR (06/03/2019 1:59 PM CDT) PT 13.3(H) 9.5 - 13.0 sec [facility] INR 1.14 0.90 - 1.20 [facility] Blood specimen (specimen) 06/03/2019 1:59 PM CDT 06/03/2019 2:04 PM CDT Do Bernstein IT PROGRAMMER LAB BLOOD ORDERABLES Fin al Result Performing Organization Address [facility] de Phone Number [facility] [address] [place], [place] [phone] * Lactate (06/03/2019 1:59 PM CDT) [facility] Lactate 1.2 0.7 - 2.0 mmol/L [facility] Blood specimen (specimen) 06/03/2019 1:59 PM CDT 06/03/2019 2:04 PM CDT Do Bernstein IT PROGRAMMER LAB BLOOD ORDERABLES Fin al Result Performing Organization Address [facility] de Phone Number [facility] [address] [place] [address] * Phosphorus (06/03/2019 1:59 PM CDT) [facility] Phosphorus, pl 3.6 2.3 - 4.5 mg/dL [facility] Blood specimen (specimen) 06/03/2019 1:59 PM CDT 06/03/2019 2:04 PM CDT Do Bernstein IT PROGRAMMER LAB BLOOD ORDERABLES Fin al Result Performing Organization Address [facility] de Phone Number [facility] [address] [place] [address] * (ABNORMAL) Magnesium (06/03/2019 1:59 PM CDT) [facility] Magnesium 1.3(L) 1.4 - 2.5 mg/dL [facility] Blood specimen (specimen) 06/03/2019 1:59 PM CDT 06/03/2019 2:04 PM CDT Do Bernstein IT PROGRAMMER LAB BLOOD ORDERABLES Fin al Result Performing Organization Address [facility] [place] [address] [place] [address] * (ABNORMAL) Basic metabolic panel (06/03/2019 1:59 PM CDT) Pathologist [facility] Sodium 140 135 - 145 mmol/L [facility] Potassium, pl 4.6 3.3 - 4.9 mmol/L [facility] Chloride 109 97 - 110 mmol/L [facility] CO2 20(L) 22 - 32 mmol/L [facility] Anion gap 11 2 - 15 mmol/L [facility] BUN 18 8 - 25 mg/dL [facility] Creatinine 0.48(L) 0.60 - 1.10 mg/dL [facility] Glucose 180 70 - 199 mg/dL [facility] Comment: Interpretive Data Fasting glucose >/= 126 [...] Calcium 8.4(L) 8.5 - 10.3 mg/dL [facility] Blood specimen (specimen) 06/03/2019 1:59 PM CDT 06/03/2019 2:04 PM CDT Do Bernstein IT PROGRAMMER LAB BLOOD ORDERABLES Fin al Result Performing Organization Address [facility] Co de Phone Number [facility] [address] [place] [address] * CBC with auto differential (06/03/2019 1:59 PM CDT) WBC 8.3 3.8 - 9.9 K/cumm [facility] Hgb 12.4 11.9 - 15.5 g/dL [facility] Hct 37.4 35.6 - 45.5 % [facility] Plt 242 150 - 400 K/cumm [facility] MPV 10.3 9.1 - 12.3 fL [facility] RBC 3.92 3.90 - 5.20 M/cumm [facility] MCV 95.4 81.3 - 96.4 fL [facility] MCH 31.6 27.1 - 33.3 pg [facility] MCHC 33.2 32.3 - 35.7 g/dL [facility] RDW CV 12.2 11.1 - 14.9 % [facility] RDW SD 42.5 35.7 - 48.1 fL [facility] NRBC abs 0.00 0.00 - 0.01 K/cumm [facility] Blood specimen (specimen) 06/03/2019 1:59 PM CDT 06/03/2019 2:02 PM CDT Do Bernstein NP LAB BLOOD ORDERABLES Fin al Result Performing Organization Address [facility] de Phone Number [facility] [address] [place], [place] [phone] * POCT glucose (06/03/2019 1:38 PM CDT) Pathologist [facility] Glucose, POC 176 70 - 199 mg/dL [facility] Blood specimen (specimen) 06/03/2019 1:38 PM CDT 06/03/2019 1:38 PM CDT Zan Price MD LAB POCT ORDERABLES - DEVICE F inal Result Performing Organization Address [facility] de Phone Number [facility] [address] [place] [address] * Surgical pathology (06/03/2019 11:58 AM CDT) Tissue (Artery, plaque Atherosclerotic) 06/03/2019 10:00 AM CDT Narrative PATHOLOGY CH - 06/05/2019 11:01 AM CDT EPIC results best viewed via link to PDF [facility] Department of Pathology [address] [place] [id number] Final Report Patient Name: ??TRESSA MYERS Address: ??[address] [place] [address], ??[place], [place] ??[address] Gender: ??F : ??1955 (Age: 64) Service: ??Surgery Location: ?? [facility] Hospital #: ??[id number] Patient Type: ?? IP Accession # ?[id number] Taken: ??06/03/2019 Received: ??06/03/2019 Accessioned: ??06/03/2019 Reported: ??06/05/2019 Physician(s):Barbara Brunson MD Diagnosis: Right carotid artery, endarterectomy: ? - Atherosclerotic plaque. Naga New M.D. Report Electronically Reviewed and Signed Out By ??Naag New M.D. ??06/05/2019 11:01:09 Specimen(s) Received: A: [...] represented in one cassette. ??Marc Dimas M.D., Ph.D./Lauren Ivory, P.A. REPORT IMAGES AND SCANNED DOCUMENTS, IF INCLUDED, ONLY VIEWABLE IN PDF VERSION OF REPORT The performance characteristics of some immunohistochemical stains, fluorescence in-situ hybridization tests and immunophenotyping by flow cytometry cited in this report (if any) were determined by the Surgical Pathology Department at [facility] as part of an ongoing customer quality engineer program and in compliance with federally mandated [...] characteristics determined by the Surgical Pathology Department [facility]. ??It has not been cleared or approved by the U. S. Food and Drug Administration. Zan Price MD LAB PATHOLOGY ORDERABLES Final Result Performing Organization Address [facility] de Phone Number [facility] [address] [place] [address] * POCT glucose (06/03/2019 10:56 AM CDT) Glucose, POC 138 70 - 199 mg/dL [facility] Blood specimen (specimen) 06/03/2019 10:56 AM CDT 06/03/2019 10:56 AM CDT Zan Price MD LAB POCT ORDERABLES - DEVICE F inal Result Performing Organization Address [facility] de Phone Number [facility] [address] [place] [address] * POCT glucose (06/03/2019 8:15 AM CDT) Glucose, POC 163 70 - 199 mg/dL [facility] Blood specimen (specimen) 06/03/2019 8:15 AM CDT 06/03/2019 8:15 AM CDT Zan Price MD LAB POCT ORDERABLES - DEVICE F inal Result Performing Organization Address [facility] Co de Phone Number ESTHELA MAGALLON [address] [place] [address] * POCT glucose (06/03/2019 6:13 AM CDT) Glucose, POC 142 70 - 199 mg/dL [facility] Glucose comment 1 RN/MD Notified [facility] Blood specimen (specimen) 06/03/2019 6:13 AM CDT 06/03/2019 6:13 AM CDT Zan Price MD LAB POCT ORDERABLES - DEVICE F inal Result Performing Organization Address [facility] Co de Phone Number ESTHELA MAGALLON [address] [place] [address] documented in this encounter Visit Diagnoses Diagnosis [...] MAR Action Action Date Dose Rate Site acetaminophen (TYLENOL) 500 mg tablet - ADS Override Pull Starting on Sun06/03/19 at 0602, For 1 dose, Created by cabinet override acetaminophen (TYLENOL) tablet 1,000 mg 1,000 mg, oral, Once, On Sun06/03/19 at 0630, For 1 dose, Pre-Op, Indications: Pre-Emptive AnalgesiaIndications:Pre-Emp tive Analgesia Given 06/03/2019 6:42 AM CDT 1,000 mg aspirin enteric coated tablet 81 mg 81 mg, oral, Nightly, First dose on Sun06/03/19 at 2100, Do not crush, chew, cut, dissolve, open or otherwise manipulate tablet/capsule. Given 06/03/2019 8:00 PM CDT 81 mg calcium gluconate 2 g in sodium chloride 0.9% 100 mL IVPB 2 g, intravenous, at 120 mL/hr, Administer over 60 Minutes, Once, On Sun06/03/19 at 1545, For 1 dose, Indications: hypocalcemiaIndications:hypo calcemia New Bag 06/03/2019 4:08 PM CDT 2 g 120 mL/hr celecoxib (CeleBREX) 200 mg capsule - ADS Override Pull Starting on Sun06/03/19 at 0602, For 1 dose, Created by cabinet override celecoxib (CeleBREX) capsule 400 mg 400 mg, oral, Once, On Sun06/03/19 at 0630, For 1 dose, Pre-Op, Indications: Pre-Emptive AnalgesiaIndications:Pre-Emp tive Analgesia Given 06/03/2019 6:43 AM CDT 400 mg clopidogrel (PLAVIX) tablet 75 mg 75 [...] for each episode of hypoglycemia., Indications: hypoglycemic disorderIndications:hypoglyc emic disorder dextrose oral liquid liquid 15 g [...] for each episode of hypoglycemia., Indications: hypoglycemic disorderIndications:hypoglyc emic disorder famotidine (PEPCID) tablet 20 mg 20 mg, oral, 2 times daily, First dose on Sun06/03/19 at 1415, Indications: Prevention of Stress UlcerIndications:Prevention of Stress Ulcer Given 06/04/2019 8:36 AM [...] MD for each episode of hypoglycemia., Indications: HypoglycemiaIndications:Hypoglycemia HYDROcodone-acetaminophen (NORCO) 5-325 mg per tablet 1 tablet 1 tablet, oral, Every 4 hours PRN, 1st line for pain, Starting on Sun06/03/19 at 1336, Indications: PainIndications:Pain Given 06/04/2019 2:13 AM CDT 1 tablet Given 06/03/2019 7:19 PM CDT 1 tablet Given 06/03/2019 2:27 PM CDT 1 tablet insulin lispro (HumaLOG) injection 1-3 Units 1-3 Units, subcutaneous, Nightly, First dose on Sun06/03/19 at 2100, Blood Sugar Mid Dose PM - PO patients 175 or less No insulin 176 - 200 1 unit 201 - 250 2 units 251 - 299 3 units Greater than 299 Call MD for hyperglycemia management instructions Do NOT hold for NPO status., Indications: Diabetes MellitusIndications:Diab etes Mellitus insulin lispro (HumaLOG) injection 1-3 Units [...] NOT hold for NPO status., Indications: Diabetes MellitusIndications:Diab etes Mellitus insulin lispro (HumaLOG) injection 1-5 Units [...] NOT hold for NPO status., Indications: Diabetes MellitusIndications:Diab etes Mellitus Given 06/04/2019 12:06 PM CDT 3 Units Left Upper Abdomen ipratropium-albuterol (DUO-NEB) 0.5-2.5 mg/3 mL nebulizer solution - ADS Override Pull Starting on Sun06/03/19 at 1113, For 1 dose, Created by cabinet override ipratropium-albuterol (DUO-NEB) 0.5-2.5 mg/3 mL nebulizer solution 3 mL 3 mL, nebulization, Once as needed, wheezing, Starting on Sun06/03/19 at 1112, For 1 dose, Phase I, Notify Anesthesiologist., Indications: Bronchospastic Pulmonary DiseaseIndications:[facility] hospastic Pulmonary Disease Given 06/03/2019 11:15 AM CDT 3 mL Lactated Ringer's (LR) infusion - ADS Override Pull Starting on Sun06/03/19 at 0602, For 1 dose, Created by cabinet override Lactated Ringer's (LR) infusion 30 mL/hr, intravenous, [...] Given 06/04/2019 6:15 AM CDT 75 mcg magnesium sulfate 2 g/50 mL in water (premix) 2 g 2 g, intravenous, Administer over 60 Minutes, Once, On Sun06/03/19 at 1545, For 1 dose New Bag 06/03/2019 4:13 PM CDT 2 g magnesium sulfate 2 g/50 mL in water (premix) 2 g 2 g, intravenous, Administer over 60 Minutes, Once, On Sun06/04/19 at 0430, For 1 dose New Bag 06/04/2019 3:59 AM CDT 2 g ondansetron (ZOFRAN) injection 4 mg 4 mg, [...] Given 06/03/2019 2:31 PM CDT 20 mg phenylephrine (ANNABELLA-SYNEPHRINE) 1 mg/10 mL (100 mcg/mL) in sodium chloride 0.9% (premix) - ADS Override Pull Starting on Sun06/03/19 at 1155, For 1 dose, Created by cabinet override For IV push, administer over 30 seconds. phenylephrine (ANNABELLA-SYNEPHRINE) 1 mg/10 mL (100 mcg/mL) in sodium chloride 0.9% (premix) 100 mcg 100 mcg, intravenous, Once, On Sun06/03/19 at 1230, For 1 dose, Phase I, For IV push, administer over 30 seconds. Given 06/03/2019 12:04 PM CDT 100 mcg simvastatin (ZOCOR) tablet 40 mg 40 mg, oral, Nightly, First dose on Sun06/03/19 at 2100 Given 06/03/2019 8:01 PM CDT 40 mg sodium chloride 0.9% flush 0.5-20 mL 0.5-20 mL, intra-catheter, Every 8 hours scheduled, First dose on Sun06/03/19 at 1415, Flush volume based on line type and size. Given 06/03/2019 2:31 PM CDT 10 mL traMADol (ULTRAM) tablet 50 mg 50 mg, oral, Every 4 hours PRN, 1st line for pain, Starting on Sun06/04/19 at 1002 Given 06/04/2019 11:25 AM CDT 5 0 mg documented in this encounter Active and Recently Administered Medications Times are shown in CDT. Scheduled Medication Order 06/02/2019 06/03/2019 06/04/2019 acetaminophen (TYLENOL) tablet 1,000 mg (COMPLETED) 1,000 mg, oral, Once, On Sun06/03/19 at 0630, For 1 dose, Pre-Op, Indications: Pre-Emptive Analgesia 0642 (Given - Provider: Fozia Mata, JUSTICE) aspirin enteric coated tablet 81 mg 81 mg, oral, Nightly, First dose on Sun06/03/19 at 2100, Do not crush, chew, cut, dissolve, open or otherwise manipulate tablet/capsule. 1999 (Given - Provider: Sindhu Olvera, RN) calcium gluconate 2 g in sodium chloride 0.9% 100 mL IVPB (COMPLETED) 2 g, intravenous, at 120 mL/hr, Administer over 60 Minutes, Once, On Sun06/03/19 at 1545, For 1 dose, Indications: hypocalcemia 1608 (New Bag - Provider: Jeaneth Rapp, JUSTICE) celecoxib (CeleBREX) capsule 400 mg (COMPLETED) 400 mg, oral, Once, On Sun06/03/19 at 0630, For 1 dose, Pre-Op, Indications: Pre-Emptive Analgesia 0643 (Given - Provider: Fozia Mata, JUSTICE) clindamycin (CLEOCIN) 600 mg/50 mL in sodium [...] Stress Ulcer 1431 (Given - Provider: Jeaneth Rapp, JUSTICE)2001 (Given - Provider: Sindhu Olvera RN) 0836 [...] hold for NPO status., Indications: Diabetes Mellitus 181 (Not Given - Provider: Jeaneth Rapp RN - Reason: Order parameters not met) 0836 (Not Given - Provider: Jeaneth Rapp RN - Reason: Order parameters not met)1206 (Given - Provider: Marilia Boone RN) levothyroxine (SYNTHROID) tablet 75 mcg 75 [...] Olvera RN)2200 (Rate/Dose Verify - Provider: Sindhu Olvera RN) 0000 (Rate/Dose Verify - Provider: Sindhu [...] 0919, Intra-Op, Indications: Minor Bacterial Skin Infections 19 (Given - Provider: Zan Price MD - [...] Indications: Pain 1427 (Given - Provider: Jeaneth Rapp, JUSTICE)1919 (Given - Provider: Sindhu Olvera, JUSTICE) 0213 (Given - Provider: Sindhu Olvera RN) ipratropium-albuterol (DUO-NEB) 0.5-2.5 mg/3 mL nebulizer solution 3 mL (COMPLETED) 3 mL, nebulization, Once as needed, wheezing, Starting on Sun06/03/19 at 1112, For 1 dose, Phase I, Notify Anesthesiologist., Indications: Bronchospastic Pulmonary Disease 1115 (Given - Provider: Chester Stahl, DIVING SUPERVISOR) ondansetron (ZOFRAN) injection 4 mg(Linked Group 2) [...] Ordered Date First Ordered Date magnesium sulfate 4 g/100 mL in water (premix) 4 g 1 06/04/2019 bacitracin-polymyxin B (POLY SPORIN) 500-10,000 unit/gram ointment tube 1 06/03/2019 ceFAZolin (ANCEF) 1 gram/10 mL in sterile water (premix) - ADS Override Pull 1 06/03/2019 clindamycin (CLEOCIN) 600 mg /50 mL in sodium chloride 0.9% (premix) piggyback - ADS Override Pull 1 06/03/2019 clindamycin (CLEOCIN) 600 mg /50 mL in sodium chloride 0.9% (premix) piggyback 600 mg 1 06/03/2019 dextrose (D10W) 10% bolus 250 mL 1 06/03/20 19 dextrose oral liquid liquid 15 g 1 06/03/20 19 DOPamine in dextrose 5% 400 mg/250 mL (1,600 mcg/mL) infusion (premix) 1 06/03/2019 DOPamine in dextrose 5% 400 mg/250 mL (1,600 mcg/mL) infusion (premix) - ADS Override Pull 1 06/03/2019 fentaNYL (SUBLIMAZE) preserv ative free injection 25 mcg 1 06/03/2019 glucagon injection 1 mg 1 06/03/2019 heparin 1,000 unit/mL injection 1 9 insulin lispro (HumaLOG) inj ection 1-3 Units 2 06/03/2019 losartan (COZAAR) tablet 50 mg 1 06/03/2019 metFORMIN (GLUCOPHAGE) tablet 1,000 mg 1 metoprolol (LOPRESSOR) tablet 25 mg 1 06/03 naloxone (NARCAN) 0.4 mg/mL injection 0.04-0.4 mg 1 06/03/2019 niCARdipine (CARDENE) 25,000 mcg in sodium chloride 0.9% 250 mL (100 mcg/mL) infusion 2 06/03/2019 06/02/2019 ondansetron (ZOFRAN) injection 4 mg 1 06/03 ondansetron ODT (ZOFRAN-ODT) disintegrating tablet 4 mg 1 06/03/2019 SITagliptin (JANUVIA) tablet 100 mg 1 06/03 sodium chloride 0.9 % irrigation 1 06/03/20 19 sodium chloride 0.9% flush 0.5-20 mL 2 03/2019 thrombin-bovine 5,000 unit n wes spray syringe 1 06/03/2019 Lab Orders Without Results Count Last Ordered [...] 06/03/2019 documented in this encounter Care Teams District Sales Coordinator Relationship Specialty Start Date End Date Robbie Haywood MD [address] [place] [address] PCP - General 12/29/18 12/13/20 Zan Price MD [address] [place] [address] Surgeon Neurosurgery 01/02/19 documented as of this encounter
--- OUTSIDE RECORDS SUMMARY | 2024-08-30 18:58 | XMS_ITS | Encounter Summary ---
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
--- OUTSIDE RECORDS SUMMARY | 2024-08-30 18:58 | XMS_ITS | Encounter Summary ---
Author Organization [facility] Address [address] [place] [address] Care Team Providers Care Recycler Forklift Driver Truck Driver Name Role Phone Robbie Haywood MD Primary Care Provider [phone] Zan Lee MD Unavailable [phone] Encounter Details Date Type Department Care Team (Late st Contact Info) Description 10/19/2020 Orders Only [facility] Cardiology [address] [place] [address] Anderson Trejo MD [address] [facility] [address] [place] [id number] Social History Tobacco Use Types Packs/Day Years [...] on file 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 Gender Identity Not on file Sexual Orientation Not on file documented as of this encounter Plan of Treatment Not on file documented as of this encounter Procedures Procedure Name Priority Date/Time Associated Diagnosis Comments CARDIOLOGY DOCUMENT SCAN Routine 10/19/2020 documented in this encounter Results * SCAN - CARDIOLOGY (10/19/2020) Anatomical Region Laterality Modality Other us Anderson Trejo MD CV CARDIAC SERVICES PROC EDURES Final Result documented in this encounter Visit Diagnoses Not on filedocumented in this encounter Care Teams Recycler Forklift Driver Truck Driver Relationship Specialty Start Date End Date Robbie Haywood MD [address] [place] [address] PCP - General 12/29/18 12/13/20 Zan Lee MD [address] [place] [address] Surgeon Neurosurgery 01/02/19 documented as of this encounter
--- OUTSIDE RECORDS SUMMARY | 2024-08-30 18:59 | XMS_ITS | Encounter Summary ---
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 Social History Tobacco Use Types Packs/Day Years Used Date Smoking Tobacco: Never Assessed Comments Unknown Sex and Gender Information Value Date Recorded Sex Assigned at Not on file 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 PRAKASH LAKHANI, FINAL REPORT The radiology attending physician has personally reviewed this study, and has reviewed and/or edited this written report and agrees with it. ACC# ??Date Time ??Exam [id number] December 30, 2013 09:34:[id number] Heart Morph and CorArts EXAMINATION: ?? 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 The patient's heart rate at the time of the examination was approximately 65 beats per minute. Images were transferred to a 3D workstation for additional post-processing. Dr. Olvin Ruth also assisted with this examination. FINDINGS: The coronary arteries are right system dominant. There is no anomalous coronary origin or course. Left coronary system: The left main coronary artery is patent. ??There is less than 50% stenosis of the proximal LAD with occlusion of the LAD just distal to the origin of first diagonal branch. ??There is collateral filling of the apical portion of the left anterior descending coronary artery from a large marginal branch of the right coronary artery. ? The first diagonal branch is patent with between 50 - 70% multifocal stenosis. ??The circumflex artery is stented and is patent proximally and distally with mild atherosclerotic disease proximally. Right coronary system: ??There is mild narrowing of the right coronary artery just distal to the takeoff of the R1 branch. ??There is an enlarged second marginal artery which supplies the occluded apical LAD territory.There is motion of the distal and middle segments of the RCA which limits evaluation, however, the RCA is patent with some mild atherosclerotic disease. There is no focal wall motion abnormality. There is no ventricular dilatation. The left ventricular ejection fraction is 67%. Other findings: ??There is mild ground glass opacities in both lungs with septal line thickening, suggestive of mild pulmonary edema. ??There is superimposed mild mosaic attenuation of the lungs. No pneumothorax or pleural effusion. ?? IMPRESSION: 1. ??Occlusion of the LAD just distal to the origin of the first diagonal branch with collateral filling from an enlarged second acute marginal artery. 2. ?? Mild pulmonary edema. ?? Requested By: DHIRAJ FIERRO ??Barbara Dictated By: ?? PRAKASH LAKHANI, ?? on December ??2013 10:34A This document has been electronically signed by: NURA BENZ M.D. on December ??2013 ??5:30P Procedure Note Provider, MD Homero - 12/27/2016 NURA BENZ M.D. PRAKASH LAKHANI, FINAL REPORT The radiology attending physician has personally reviewed this study, and has reviewed and/or edited this written report and agrees with it. [facility]# Date Time Exam [id number] December 30, 2013 09:34:[id number] Heart Morph and CorArts EXAMINATION: CORONARY CT ANGIOGRAM HISTORY: 58-year-old female with coronary artery disease and known occlusion of the left anterior descending coronary artery TECHNIQUE: CT with angiography of the coronary arteries was performed after the administration of Optiray 350 intravenous contrast. The patient's heart rate at the time of the examination was approximately 65 beats per minute. Images were transferred to a 3D workstation for additional post-processing. Dr. Olvin Ruth also assisted with this examination. FINDINGS: The coronary arteries are right system dominant. There is no anomalous coronary origin or course. Left coronary system: The left main coronary artery is patent. There is less than 50% stenosis of the proximal LAD with occlusion of the LAD just distal to the origin of first diagonal branch. There is collateral filling of the apical portion of the left anterior descending coronary artery from a large marginal branch of the right coronary artery. The first diagonal branch is patent with between 50 - 70% multifocal stenosis. The circumflex artery is stented and is patent proximally and distally with mild atherosclerotic disease proximally. Right coronary system: There is mild narrowing of the right coronary artery just distal to the takeoff of the R1 branch. There is an enlarged second marginal artery which supplies the occluded apical LAD territory.There is motion of the distal and middle segments of the RCA which limits evaluation, however, the RCA is patent with some mild atherosclerotic disease. There is no focal wall motion abnormality. There is no ventricular dilatation. The left ventricular ejection fraction is 67%. Other findings: There is mild ground glass opacities in both lungs with septal line thickening, suggestive of mild pulmonary edema. There is superimposed mild mosaic attenuation of the lungs. No pneumothorax or pleural effusion. IMPRESSION: 1. Occlusion of the LAD just distal to the origin of the first diagonal branch with collateral filling from an enlarged second acute marginal artery. 2. Mild pulmonary edema. Requested By: DHIRAJ FIERRO M.D. Dictated By: PRAKASH LAKHANI on Dec 30 2013 10:34A This document has been electronically signed by: NURA BENZ M.D. 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
--- OUTSIDE RECORDS SUMMARY | 2024-08-30 18:59 | XMS_ITS | Encounter Summary ---
Author Organization 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
--- OUTSIDE RECORDS SUMMARY | 2024-08-30 18:59 | XMS_ITS | Encounter Summary ---
Author Organization [facility] Facility Care Team Providers Care Digital Marketing Strategist Name Role Phone Robbie Haywood MD Primary Care Provider [phone] Encounter Details Date Type Department Care Team (Latest Contact Info) Description 12/29/2018 Travel Social History Tobacco Use Types Packs/Day Years Used Date Smoking Tobacco: Light Smoker Cigarettes Alcohol Use Standard Drinks/Week Comments Never 0 (1 standard drink = 0.6 oz pur e alcohol) AUDIT-C Answer Date Recorded Frequency of Alcohol Consumption Never 12/29/2018 Average Number of Drinks Not on file 019 Frequency of Binge Drinking Not on file 12/2018 Comments No Sex and Gender Information Value Date Recorded Sex Assigned at Not on file 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
--- OUTSIDE RECORDS SUMMARY | 2024-08-30 18:59 | XMS_ITS | Encounter Summary ---
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 Name Role Phone Unavailable Primary Care Provider Unavailabl e Encounter Details Date Type Department Care Team ([facility] st Contact Info) Description 05/28/2016 1:03 PM CDT - 05/28/2016 3:09 PM CDT Hospital Encounter [facility] Tobias Salazar MD [address] [facility] [address] [place] [address] Diverticulitis of intestine without perforation or abscess without bleeding; Urinary tract infection; Presence of aortocoronary bypass graft; Personal history of nicotine dependence Social History Tobacco Use Types Packs/Day Years Used Date Smoking Tobacco: Former Comments Unknown Sex and Gender Information Value Date Recorded Sex Assigned at Not on file Legal Sex Female 3:00 AM AU PAIR Gender Identity Not on file Sexual Orientation Not on file documented as of this encounter Plan of Treatment Not on file documented as of this encounter Procedures Procedure Name Priority Date/Time Associated Diagnosis Comments CT ABDOMEN PELVIS W CONTRAST Routine 05/28/2016 2:47 PM CDT SERUM LIPASE Routine 05/28/2016 1:40 PM CDT SERUM ESTIMATED GLOMERULAR FILTRATION RATE Routine 05/28/2016 1:40 PM CDT PLASMA COMPREHENSIVE METABOLIC PANEL Routine 05/28/2016 1:40 PM CDT BLOOD CELL COUNT (CBC) Routine 6 1:40 PM CDT BLOOD CELL MORPHOLOGIC EXAM Routine 05/28/2016 1:40 PM CDT URINE (AEROBIC) CULTURE, CDR Routine 05/28/2016 1:28 PM CDT URINE MICROSCOPY Routine 05/28/2016 1:28 PM CDT URINALYSIS Routine 05/28/2016 1:28 PM CDT DISCHARGE LABORATORY CUMULATIVE REPORT 05/28/2016 documented in this encounter Results * CT Abdomen Pelvis W Contrast (05/28/2016 2:47 PM CDT) Anatomical Region Laterality Modality Body N/A Computed Tomogra phy 05/28/2016 2:47 PM CDT Narrative 05/31/2016 7:[address] ABD/PEL W IV ONLY ??Acc#: ??[id number] DATE OF EXAM: ??May ??2015 CLINICAL HISTORY: Abdominal and back pain, nausea. RESULT: PROTOCOL: Helically acquired axial images were obtained from the dome of the diaphragm to the pubic symphysis following the administration of IV contrast only. FINDINGS: Mild fatty infiltration of the liver is present. The liver, spleen, pancreas, adrenals and kidneys are otherwise normal. The small and large bowel demonstrate normal caliber without evidence of mass or obstruction. Extensive descending and sigmoid colonic diverticulosis is present without evidence of inflammation. There is no evidence of ascites or adenopathy. Diffuse vascular calcification is present. The pelvic contents are normal. The lungs bases are clear. IMPRESSION: 1. ??EXTENSIVE DISTAL COLONIC DIVERTICULOSIS WITH NO EVIDENCE OF INFLAMMATORY CHANGE. 2. ??FATTY INFILTRATION OF THE LIVER. 3. ??DIFFUSE VASCULAR CALCIFICATION. RESULTS CALLED TO DR. DENIS AT 1450 HOURS. Interpreting Physician: ??DR BILL MITCHELL M.D. ??Read on: ??May ??2015 8:58A Transcribed by: ??TXD ??On: May ??3 2015 ??8:58A Approved Electronically by: ??STEPHEN Jimenez, DR KHAN ??on: ??May ??2015 7:58A Attending: ??TOBIAS DENIS Requesting: ??TOBIAS DENIS Requesting Fax: ??-- Attending Fax: ??-- Attending ID: ??[id number] Requesting ID: ??[id number] Report To 1 ID: ??[id number] Report To 1 Name: ?JeromeTOMEKALYDIA LINARESHU Report To 1 FAX: ??-- NextGen Order #: Procedure Note Provider, MD Homero - 01/01/2017 CT ABD/PEL W IV ONLY Acc#: [id number] DATE OF EXAM: May 28 2016 CLINICAL HISTORY: Abdominal and back pain, nausea. RESULT: PROTOCOL: Helically acquired axial images were obtained from the dome ofthe diaphragm to the pubic symphysis following the administration of IVcontrast only. FINDINGS: Mild fatty infiltration of the liver is present. The liver,spleen, pancreas, adrenals and kidneys are otherwise normal. The small andlarge bowel demonstrate normal caliber without evidence of mass orobstruction. Extensive descending and sigmoid colonic diverticulosis ispresent without evidence of inflammation. There is no evidence of ascitesor adenopathy. Diffuse vascular calcification is present. The pelviccontents are normal. The lungs bases are clear. IMPRESSION: 1. EXTENSIVE DISTAL COLONIC DIVERTICULOSIS WITH NO EVIDENCE OFINFLAMMATORY CHANGE. 2. FATTY INFILTRATION OF THE LIVER. 3. DIFFUSE VASCULAR CALCIFICATION. RESULTS CALLED TO DR. DENIS AT 1450HOURS. Interpreting Physician: DR BILL MITCHELL M.D. Read on: May 29 [id number] Transcribed by: TXD On: May 29 2016 8:58A Approved Electronically by: STEPHEN Jimenez, DR KHAN on: May 31 [id number] Attending: TOBIAS DENIS Requesting: TOBIAS DENIS Requesting Fax: -- Attending Fax: -- Attending ID: [id number] Requesting ID: [id number] Report To 1 ID: [id number] Report To 1 Name: ADEEL TOBIAS Report To 1 FAX: -- NextGen Order #: us Historical Provider MD GROVES CT PROCEDURES Final R esult * (ABNORMAL) Plasma comprehensive metabolic panel (05/28/2016 1:40 PM CDT) Sodium 138 135 - 145 mmol/L CDR HISTORICAL RESULTS K, pl 4.1 3.5 - 5.1 mmol/L CDR HISTORICAL RESULTS Chloride 99 97 - 110 mmol/L CDR HISTORICAL RESULTS CO2 24 22 - 32 mmol/L CDR HISTORICAL RESULTS A. gap 19(H) 8 - 16 mmol/L CDR HISTORICAL RESULTS Glucose 192 70 - 199 mg/dl CDR HISTORICAL RESULTS Comment: Interpretive Data Note:The glucose is assumed non fasting Fastin-99 mg/dL Random: ??70-199 mg/dL Either a fasting glucose > 126 mg/dL or a random glucose > 200 mg/dL plus symptoms is diagnostic of diabetes when confirmed on another day. Fasting values > 100 mg/dL but < 125 mg/dL are diagnostic of impaired fasting glucose. Current interpretive data was last revised on 2014. BUN 15.9 8.0 - 25.0 mg/dl CDR HISTORICAL RESULTS Creatinine 0.89 0.60 - 1.10 mg/dl CDR HISTORICAL RESULTS BUN/creat ratio 18 10 - 20 CDR HISTORICAL RESULTS Calcium 9.1 8.6 - 10.2 mg/dl CDR HISTORICAL RESULTS Protein, sr 7.2 6.0 - 8.4 g/dl CDR HISTORICAL RESULTS Alb 3.9 3.6 - 5.0 g/dl CDR HISTORICAL RESULTS Alk phos 102 40 - 130 Units/L CDR HISTORICAL RESULTS ALT 23 5 - 45 Units/L CDR HISTORICAL RESULTS AST 21 10 - 40 Units/L CDR HISTORICAL RESULTS Bilirubin 0.2 <=1.2 mg/dl CDR HISTORICAL RESULTS Plasma 05/28/2016 1:40 PM CDT us Historical Provider LAB BLOOD ORDERABLES Jennifer l Result Performing Organization Address City/[facility] Co de Phone Number CDR HISTORICAL RESULTS * Serum lipase (05/28/2016 1:40 PM CDT) Lip 20 10 - 70 Units/L CDR HISTORICAL RESULTS Serum 05/28/2016 1:40 PM CDT Historical Provider LAB BLOOD ORDERABLES Jennifer l Result CDR HISTORICAL RESULTS * Blood cell count (CBC) (05/28/2016 1:40 PM CDT) Pathologist [facility] WBC 9.8 3.8 - 9.8 K/cumm CDR HISTORICAL RESULTS RBC 4.61 3.90 - 5.00 M/cumm CDR HISTORICAL RESULTS Hgb 14.3 12.1 - 15.1 g/dl CDR HISTORICAL RESULTS Hct 42.2 36.1 - 44.3 % CDR HISTORICAL RESULTS MCV 91.5 80.0 - 100.0 fl CDR HISTORICAL RESULTS MCH 31.0 26.7 - 33.7 pg CDR HISTORICAL RESULTS MCHC 33.9 32.7 - 36.0 g/dl CDR HISTORICAL RESULTS Rdw 12.4 11.5 - 14.6 % CDR HISTORICAL RESULTS Platelets 267 140 - 440 K/cumm CDR HISTORICAL RESULTS MPV 9.7 8.0 - 12.0 fl CDR HISTORICAL RESULTS NRBC 0.0 0.0 - 0.0 % CDR HIST ORICAL RESULTS NRBC, abs 0.00 0.00 - 0.00 K/cumm CDR HISTORICAL RESULTS Blood specimen (specimen) 05/28/2016 1:40 PM CDT us Historical Provider LAB BLOOD ORDERABLES Jennifer l Result CDR HISTORICAL RESULTS * Blood cell morphologic exam (05/28/2016 1:40 PM CDT) Pathologist [facility] Neutrophils 61.6 44.0 - 80.0 % CDR HISTORICAL RESULTS Immature granulocytes 0.2 0.0 - 1.0 % CDR HISTORICAL RESULTS Lymphocytes 26.9 13.0 - 44.0 % CDR HISTORICAL RESULTS Monos 7.8 2.0 - 11.0 % CDR HISTORICAL RESULTS Eosinophils 2.8 0.0 - 6.0 % CDR HISTORICAL RESULTS Basophils 0.7 0.0 - 3.0 % CDR HISTORICAL RESULTS Neutrophils, abs 6.0 1.6 - 7.0 K/cumm CDR HISTORICAL RESULTS Immature granulocyte, abs 0.0 0.0 - 0.2 K/cumm CDR HISTORICAL RESULTS Lymphocytes, abs 2.6 0.5 - 4.3 K/cumm CDR HISTORICAL RESULTS Monocytes, absolute 0.8 0.1 - 1.0 K/cumm CDR HISTORICAL RESULTS Eosinophils, abs 0.3 0.0 - 0.6 K/cumm CDR HISTORICAL RESULTS Basophils, abs 0.1 0.0 - 0.3 K/cumm CDR HISTORICAL RESULTS Blood specimen (specimen) 05/28/2016 1:40 PM CDT Result [facility] Provider LAB BLOOD ORDERABLES Jennifer doran Result Performing Organization Address [facility] de Phone Number CDR HISTORICAL RESULTS * Serum estimated glomerular filtration rate (05/28/2016 1:40 PM CDT) eGFR >60 ml/min/1.7 3 m2 CDR HISTORICAL RESULTS Comment: Interpretation of Estimated GFR (eGFR): Normal ?>/= 60 mL/min/1.73m2 Possible Chronic Kidney Disease ??15 - 59 mL/min/1.73m2 Possible Kidney Failure ?< 15 ??mL/min/1.73m2 If -[place] multiply value by 1.16. ??Estimated glomerular filtration rate is determined by the CKD-EPI equation recommended by the National Kidney Foundation (KDIGO 2012 Clinical Practice Guideline for the Evaluation and Management of Chronic Kidney Disease. ??Kidney Intnl Suppl Aug 2012;3:1). ??The CKD-EPI equation should not be used in acute renal failure or acute kidney injury and is not valid in children. Serum 05/28/2016 1:40 PM CDT Result [facility] Provider MD LAB BLOOD ORDERABLES Jennifer doran Result Performing Organization Address [facility] de Phone Number CDR HISTORICAL RESULTS * (ABNORMAL) Urinalysis (05/28/2016 1:28 PM CDT) Color, ur Yellow Yellow CDR HISTOR ICAL RESULTS Clarity, ur Cloudy(A) Clear CDR HIST ORICAL RESULTS Specific gravity, ur 1.024 1.003 - 1.030 CDR HISTORICAL RESULTS Comment:Normal Ranges: 1.003 -1.030 pH, ur 5.5 4.5 - 8.0 CDR HISTOR ICAL RESULTS Comment:Normal ranges: 4.5-8 .0 Protein, ur, quant Negative Negative mg/dl CDR HISTORICAL RESULTS Glucose, ur, quant Negative Negative mg/dl CDR HISTORICAL RESULTS Ketones, ur Trace(A) Negative CDR HIST ORICAL RESULTS Bilirubin, ur Negative Negative CDR HI STORICAL RESULTS U Blood Negative Negative CDR HISTOR ICAL RESULTS Urobilinogen, quant, ur 1.0 0.2 - 1.0 Charles Units/dl CDR HISTORICAL RESULTS Comment:Normal Ranges: 0.2-1 .0 EU/dL Nitrites, ur Negative Negative CDR HIS TORICAL RESULTS Leukocyte esterase, ur Small(A) Negative CDR HISTORICAL RESULTS Urine 05/28/2016 1:28 PM CDT Historical Provider LAB BLOOD ORDERABLES Jennifer l Result Performing Organization Address [facility] Co de Phone Number CDR HISTORICAL RESULTS * (ABNORMAL) Urine microscopy (05/28/2016 1:28 PM CDT) RBC, ur 10 - 25(A) 0 - 2 /hpf CDR HISTORICAL RESULTS WBC, ur 10 - 25(A) 0 - 2 /hpf CDR HISTORICAL RESULTS Bacteria, ur 3+(A) Negative CDR HIS TORICAL RESULTS Hyaline casts 0 - 2 0 - 2 /lpf CDR H ISTORICAL RESULTS Epithelial cells, ur 2 - 5(A) 0 - 2 /hpf CDR HISTORICAL RESULTS Urine 05/28/2016 1:28 PM CDT Historical Provider LAB BLOOD ORDERABLES Jennifer l Result Performing Organization Address [facility] Co de Phone Number CDR HISTORICAL RESULTS * Urine (aerobic) culture (05/28/2016 1:28 PM CDT) Urine (Unknown) 05/28/2016 1 :28 PM CDT 05/28/2016 2:46 PM CDT Historical Provider LAB MICROBIOLOGY - GENERA L ORDERABLES Final Result Performing Organization Address [facility] Co de Phone Number CDR HISTORICAL RESULTS * DISCHARGE LABORATORY CUMULATIVE REPORT (05/28/2016) Narrative 05/28/2016 Ordered by an unspecified provider. Historical Provider LAB BLOOD ORDERABLES Jennifer l Result documented in this encounter Visit Diagnoses Diagnosis Diverticulitis of intestine without perforation or abscess without bleeding Urinary tract infection Urinary tract infection, site not specified Presence of aortocoronary bypass graft Personal history of nicotine dependence documented in this encounter
--- OUTSIDE RECORDS SUMMARY | 2024-08-30 18:59 | XMS_ITS | Encounter Summary ---
Author Organization [facility] Facility Care Team Providers Care Cardiology Consultant Name Role Phone Unavailable Primary Care Provider Unavailabl e Encounter Details Date Type Department Care Team (Latest Contact Info) Description 10/10/2013 6:29 AM MILK INSPECTOR - 10/10/2013 4:00 PM MILK INSPECTOR Hospital Encounter [facility] Dhiraj Cox MD [id number] [address] Coronary atherosclerosis of [place] coronary artery; Other complications due to other cardiac device, implant, and graft; Tobacco use disorder; Essential hypertension; Postsurgical percutaneous transluminal coronary angioplasty status; Other and unspecified hyperlipidemia; Obesity; Family history of ischemic heart disease; Encounter for long-term (current) use of aspirin; Encounter for long-term (current) use of other medications; Surgical operation with implant of artificial internal device causing abnormal patient reaction, or later complication Social History Tobacco Use Types Packs/Day Years Used Date Smoking Tobacco: Never Assessed Comments Unknown Sex and Gender Information Value Date Recorded Sex Assigned at Not on file Legal Sex Female 3:00 AM MILK INSPECTOR Gender Identity Not on file Sexual Orientation Not on file documented as of this encounter Plan of Treatment Not on file documented as of this encounter Procedures Procedure Name Priority Date/Time Associated Diagnosis Comments BLOOD ACTIVATED CLOTTING TIME, LOW Routine 10/10/2013 2:16 PM MILK INSPECTOR BLOOD ACTIVATED CLOTTING TIME, LOW Routine 10/10/2013 1:18 PM MILK INSPECTOR BLOOD ABO, RH, INDIRECT AB SCREEN Routine 10/10/2013 1:05 PM MILK INSPECTOR SERUM CREATINE KINASE (CK) MB Routine 10/10/2013 12:55 PM MILK INSPECTOR BLOOD ACTIVATED CLOTTING TIME, LOW Routine 10/10/2013 12:52 PM MILK INSPECTOR BLOOD CELL COUNT Routine 10/10/2013 6:38 AM MILK INSPECTOR DISCHARGE LABORATORY CUMULATIVE REPORT Routine 10/10/2013 12:00 AM MILK INSPECTOR CARDIAC CATHETERIZATION Routine 10/10/19 12:00 AM MILK INSPECTOR CARDIAC CATHETERIZATION Routine 10/10/19 12:00 AM MILK INSPECTOR documented in this encounter Results * (ABNORMAL) Blood activated clotting time, low (10/10/2013 2:16 PM MILK INSPECTOR) Coagulation time, activated 181(H) 123 - 168 seconds HISTORICAL RESULTS Blood specimen (specimen) 10/10/2013 2:16 PM MILK INSPECTOR Dhiraj Mcdonough MD LAB BLOOD ORDERABLES Final Resul t Performing Organization Address [facility] de Phone Number HISTORICAL RESULTS * (ABNORMAL) Blood activated clotting time, low (10/10/2013 1:18 PM MILK INSPECTOR) Coagulation time, activated 211(H) 123 - 168 seconds HISTORICAL RESULTS Blood specimen (specimen) 10/10/2013 1:18 PM MILK INSPECTOR us Dhiraj Mcdonough MD LAB BLOOD ORDERABLES Final Resul t Performing Organization Address [facility] Co de Phone Number HISTORICAL RESULTS * Blood ABO, Rh, indirect ab screen (10/10/2013 1:05 PM MILK INSPECTOR) ABO, Rho(D) O Positive HISTORI BRUNO RESULTS Twyla, indirect Negative HISTORICAL RESULTS Blood specimen (specimen) 10/10/2013 1:05 PM MILK INSPECTOR us Dhiraj Mcdonough MD LAB BLOOD ORDERABLES Final Resul t Performing Organization Address [facility] de Phone Number HISTORICAL RESULTS * Serum creatine kinase (CK) MB (10/10/2013 12:55 PM MILK INSPECTOR) CK MB 2 0 - 7 ng/ml HISTORIC AL RESULTS CK 149 20 - 170 Units/L HISTORICAL RESULTS Serum 10/10/2013 12:5 5 PM MILK INSPECTOR us Dhiraj Mcdonough MD LAB BLOOD ORDERABLES Final Resul t Performing Organization Address [facility] de Phone Number HISTORICAL RESULTS * Blood activated clotting time, low (10/10/2013 12:52 PM MILK INSPECTOR) Coagulation time, activated 137 123 - 168 seconds HISTORICAL RESULTS Blood specimen (specimen) 10/10/2013 12:52 PM MILK INSPECTOR us Dhiraj Mcdonough MD LAB BLOOD ORDERABLES Final Resul t Performing Organization Address [facility] de Phone Number HISTORICAL RESULTS * Blood cell count [CBC] express (10/10/2013 6:38 AM MILK INSPECTOR) WBC 7.0 3.8 - 9.8 K/cumm HISTORICAL RESULTS RBC 3.97 3.90 - 5.00 M/cumm HISTORICAL RESULTS Hgb 12.2 12.1 - 15.1 g/dl HISTORICAL RESULTS Hct 36.5 36.1 - 44.3 % HISTORICAL RESULTS MCV 91.7 80.0 - 97.6 fl HISTORICAL RESULTS MCH 30.8 26.7 - 33.7 pg HISTORICAL RESULTS MCHC 33.5 32.7 - 35.5 g/dl HISTORICAL RESULTS Rdw 13.1 11.8 - 14.6 % HISTORICAL RESULTS Platelets 213 140 - 440 K/cumm HISTORICAL RESULTS MPV 8.3 6.8 - 10.4 fl HISTORICAL RESULTS Blood specimen (specimen) 10/10/2013 6:38 AM MILK INSPECTOR us Dhiraj Mcdonough MD LAB BLOOD ORDERABLES Final Resul t Performing Organization Address [facility] de Phone Number HISTORICAL RESULTS * Discharge Laboratory Cumulative Report (10/10/2013 12:00 AM MILK INSPECTOR) 10/10/2013 Narrative HISTORICAL RESULTS - 10/15/2013 7:16 AM MILK INSPECTOR ?[facility] ?Department of Laboratories ? [address] [facility] ? [place], [place] [address] Patient Name: ??TRESSA RODAS Med Rec Number: [id number] Fin Number: ?[id number] Date: ?1955 Sex/Age: ? Female 58 years Admit Date: ?10/10/2013 Discharge Date: 10/10/2013 [facility] ?[facility] Location: ?43MP Chart Printed: 10/15/2013 07:16 ?? * Abnormal ?? C Critical ?? f Footnote ?? ^ Corrected ?? L Low ?? H High ? i Interp Data ?? @ Reference Lab ?Chart Type:Cumulative ?ENZYMES ?Test: Total CK ? Reference: [20-170] ? Units: Units/L 10/10/2013 ?? 12:55:00 ?? 149 ? CARDIAC PROTEINS ?Test: CK-MB ? Reference: [0-7] ? Units: ng/mL 10/10/2013 ?? 12:55:00 ?? 2 ? COMPLETE BLOOD COUNT ?Test: WBC ?RBC ?Hgb ? Reference: [3.8-9.8] ??[3.90-5.00] ??[12.1-15.1] ? Units: K/cumm ? M/cumm ? g/dL 10/10/2013 ?? 06:38:34 ?? 7.0 ?3.97 ? 12.2 ?Test: Hct ?Platelet Ct ??MCV ? Reference: [36.1-44.3] ??[140-440] ?[80.0-97.6] ? Units: % ?K/cumm ? fL 10/10/2013 ?? 06:38:34 ?? 36.5 ? 213 ?91.7 ?Test: MCH ?MCHC ? RDW ? Reference: [26.7-33.7] ??[32.7-35.5] ??[11.8-14.6] ? Units: pg ? g/dL ? % 10/10/2013 ?? 06:38:34 ?? 30.8 ? 33.5 ? 13.1 ? COMPLETE BLOOD COUNT ?Test: MPV ? Reference: [6.8-10.4] ? Units: fL 10/10/2013 ?? 06:38:34 ?? 8.3 ? TRANSFUSION MEDICINE ?Test: Indirect Twyla. ??ABO/Rh Pat Interp ? Reference: ? Units: 10/10/2013 ?? 13:05:00 ?? Negative ?O Positive ?POINT OF CARE TESTS ?Coagulation ?Test: ACT LO ePOC ? Reference: [123-168] ? Units: sec 10/10/2013 ?? 14:16:00 ?? 181 ??H 10/10/2013 ?? 13:18:00 ?? 211 ??H 10/10/2013 ?? 12:52:00 ?? 137 us Historical Provider MD LAB BLOOD ORDERABLES Jennifer doran Result HISTORICAL RESULTS * Cardiac catheterization (10/10/2013 12:00 AM MILK INSPECTOR) Anatomical Region Laterality Modality Other 10/10/2013 Narrative 10/16/2013 12:21 PM MILK INSPECTOR Patient: ?Tressa Rodas ? Reg No: ? [id number] ? U H #: ?[id number] ? : ?1955 ? Attending: ??Wilson Ch M.D. ? Dictating: ??Wilson Ch M.D. ? Service Dt: 10/10/2013 ?CARDIAC CATHETERIZATION REPORT Preliminary ?FRACTIONAL FLOW RESERVE ASSESSMENT REPORT: PATIENT CLINICAL PROFILE: ?Mrs. Rodas is a 58-year-old woman with a history of coronary artery disease, hypertension, dyslipidemia, current tobacco abuser, and a strong family history of coronary artery disease who underwent placement of a Xience drug-eluting stent into the left circumflex artery in 04/2013. ??She has been having persistent angina despite increasing her medical therapy. ??She underwent an echocardiogram which confirmed the presence of an ejection fraction around 60%. ??She was referred for coronary angiography to further assess her coronary anatomy. ??Her coronary angiogram earlier this morning confirmed the presence of an occluded left anterior descending coronary artery after the origin of a major diagonal branch. ??In addition, she had an area of a patent stent in the first obtuse marginal branch and evidence of pmeyv-ph-[id number] collaterals into the left anterior descending artery in two different areas. Secondary to her symptoms it was unclear whether or not the diagonal vessel was hemodynamically significant. ??It definitely appeared that the left anterior descending coronary artery was completely occluded and was filling through some degree of collaterals which were not fully developed. ??In order to further assess her guidance she was referred for fractional flow reserve assessment of the diagonal vessel. PROCEDURE: 1. The patient was prepped and draped in the usual sterile fashion. 2. 2% Lidocaine was used for local anesthesia. 3. Fentanyl and Versed were used for procedural sedation. 4. The preexisting 4F sheath was upsized to a 5F sheath. 5. Equipment used: ??5F JL 3.5 guiding catheter, a short Bynum Prime wire. 6. Intravenous Adenosine was given in order to achieve maximal hyperemia. 7. Heparin was used for anticoagulation following the REPLACE II Protocol. 8. Nitroglycerin was administered in order to achieve maximum vasodilatation. 9. At the conclusion of the case the arterial sheath was removed and hemostasis ?? achieved in holding under manual compression. 10. There were no apparent complications. PROCEDURAL DETAILS: After the sheath was exchanged and the patient was anticoagulated, a JL guiding catheter was advanced into the aortic root. ??A short Prime wire was then advanced into the aortic root where it was normalized. ??The wire was partially withdrawn and the catheter engaged the right coronary artery. ??Once the ACT was greater than 200, the wire was advanced into the distal portion of the circumflex. The wire was then advanced into the distal portion of the diagonal vessel. ??The resting fractional flow reserve was 0.93. ??Upon achieving maximal hyperemia the fractional flow reserve decreased to 0.89, yielding the lesion non-hemodynamically significant. ??The guidewire was removed and control angiography confirmed NOLAN 3 flow throughout the vessel. DIAGNOSTIC IMPRESSIONS: 1. Non-hemodynamically significant lesion of the diagonal vessel. 2. 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 discrete collaterals from the right coronary artery which appeared to be ?? limited. 3. Disease in the PDA branch which is relatively small (less than 2 mm in ?? diameter). 4. Tobacco abuse. THERAPEUTIC RECOMMENDATIONS: 1. The patient will be on bedrest. 2. Gentle hydration. 3. Tobacco cessation. 4. Check CT angio of the coronary arteries to evaluate trajectory of the left ?? anterior descending artery. ??If the vessel appears to be available, it would ?? be reasonable to proceed with consideration of bypass grafting surgery to ?? the left anterior descending and PDA branch. 5. Consider up-titrating beta-blockade and adding long-acting calcium channel ?? hever. 6. Diabetic control. 7. Medical therapy as per Dr. Mcdonough. Electronically Signed By Wilson Ch M.D. 10/16/2013 12:21 P Wilson Ch M.D. [place] #[id number] Editing MT: TD: ??10/11/2013 05:47:00 cc: ?? Dhiraj Mcdonough M.D. ?Wilson Ch M.D. Procedure Note Provider, MD Homero - 12/26/2016 Patient: Tressa Rodas Reg No: [id number] [facility] #: [id number] : 1955 Attending: Wilson Ch M.D. Dictating: Wilson Ch M.D. Service Dt: 10/10/2013 CARDIAC CATHETERIZATION REPORT Preliminary FRACTIONAL FLOW RESERVE ASSESSMENT REPORT: PATIENT CLINICAL PROFILE: Mrs. Rodas is a 58-year-old woman with a history ofcoronary artery disease, hypertension, dyslipidemia, current tobacco abuser, edson strong family history of coronary artery disease who underwent placementof a Xience drug-eluting stent into the left circumflex artery in 04/2013. Shehas been having persistent angina despite increasing her medical therapy.She underwent an echocardiogram which confirmed the presence of an ejection fraction around 60%. She was referred for coronary angiography tofurther assess her coronary anatomy. Her coronary angiogram earlier thismorning confirmed the presence of an occluded left anterior descending coronaryartery after the origin of a major diagonal branch. In addition, she had an areaof a patent stent in the first obtuse marginal branch and evidence jlcjuqi-ki-zsvw collaterals into the left anterior descending artery in two differentareas. Secondary to her symptoms it was unclear whether or not the diagonalvessel was hemodynamically significant. It definitely appeared that the leftanterior descending coronary artery was completely occluded and was filling throughsome degree of collaterals which were not fully developed. In order tofurther assess her guidance she was referred for fractional flow reserveassessment of the diagonal vessel. PROCEDURE: 1. The patient was prepped and draped in the usual sterile fashion. 2. 2% Lidocaine was used for local anesthesia. 3. Fentanyl and Versed were used for procedural sedation. 4. The preexisting 4F sheath was upsized to a 5F sheath. 5. Equipment used: 5F JL 3.5 guiding catheter, a short Bynum Primewire. 6. Intravenous Adenosine was given in order to achieve maximalhyperemia. 7. Heparin was used for anticoagulation following the REPLACE IIProtocol. 8. Nitroglycerin was administered in order to achieve maximumvasodilatation. 9. At the conclusion of the case the arterial sheath was removed andhemostasis achieved in holding under manual compression. 10. There were no apparent complications. PROCEDURAL DETAILS: After the sheath was exchanged and the patient was anticoagulated, a JLguiding catheter was advanced into the aortic root. A short Prime wire was then advanced into the aortic root where it was normalized. The wire waspartially withdrawn and the catheter engaged the right coronary artery. Once theACT was greater than 200, the wire was advanced into the distal portion of the circumflex. The wire was then advanced into the distal portion of the diagonal vessel.The resting fractional flow reserve was 0.93. Upon achieving maximalhyperemia the fractional flow reserve decreased to 0.89, yielding the lesion non-hemodynamically significant. The guidewire was removed and control angiography confirmed NOLAN 3 flow throughout the vessel. DIAGNOSTIC IMPRESSIONS: 1. Non-hemodynamically significant lesion of the diagonal vessel. 2. 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 3. Disease in the PDA branch which is relatively small (less than 2 mmin diameter). 4. Tobacco abuse. THERAPEUTIC RECOMMENDATIONS: 1. The patient will be on bedrest. 2. Gentle hydration. 3. Tobacco cessation. 4. Check CT angio of the coronary arteries to evaluate trajectory of theleft anterior descending artery. If the vessel appears to be available, itwould be reasonable to proceed with consideration of bypass grafting surgeryto the left anterior descending and PDA branch. 5. Consider up-titrating beta-blockade and adding long-acting calciumchannel hever. 6. Diabetic control. 7. Medical therapy as per Dr. Mcdonough. Electronically Signed By Wilson Ch M.D. 10/16/2013 12:21 P Wilson Ch M.D. [place] #[id number] Editing MT: TD: 10/11/2013 05:47:00 cc: Barbara Nails M.D. us Historical Provider MD INFANTE CARDIAC CATH PROCEDURE S Final Result * Cardiac catheterization (10/10/2013 12:00 AM MILK INSPECTOR) Anatomical Region Laterality Modality Other 10/10/2013 Narrative 10/18/2013 1:04 PM MILK INSPECTOR Patient: ?Tressa Rodas ? Reg No: ? [id number] ? U H #: ?[id number] ? : ?1955 ? Attending: ??Kuldeep Cavanaugh M.D. ? Dictating: ??Kuldeep Cavanaugh M.D. ? Service Dt: 10/10/2013 ?CARDIAC CATHETERIZATION REPORT Final PATIENT CLINICAL PROFILE: ?Tressa Rodas is a 58-year-old female with known coronary artery disease, status-post stenting of the circumflex coronary artery on 05/07/2013 at [facility], who presented for a second opinion regarding the need for coronary artery bypass grafting. ??The patient continues to have exertional shortness of breath, fatigue, and symptoms of angina. ??She is now referred by Dr. Mcdonough for left heart catheterization and selective coronary angiography. ?The patient currently smokes one-half pack per day down from two packs per day. ??She also has hypertension, dyslipidemia, obesity, and a family history of premature coronary artery disease. ??At the time of the catheterization and stenting in 04/2013 the patient was noted to have a moderate lesion of the RPD branch of the dominant right coronary artery, a high grade narrowing of the circumflex coronary artery that was stented, and an occluded left anterior descending coronary artery distal to a very large first diagonal branch that wraps toward the apex. ??The left anterior descending coronary artery was short and did not reach the apex. ??An echocardiogram at this institution showed normal left ventricular size and systolic function. ?Allergy: ??None. PROCEDURE: 1. Access: ??Fentanyl and Midazolam were used for sedation; 2% Lidocaine was ?? used for local anesthesia; modified Seldinger technique; micropuncture ?? technique; 4F / 12-cm sheath right femoral artery. 2. Selective angiography of the left coronary artery: ??4F JL 4.5 catheter. 3. Selective angiography of the right coronary artery: ??4F WRP catheter. 4. Left heart catheterization / no left ventriculography: ??4F straight pigtail ?? catheter. 5. Right distal iliac / proximal femoral angiography: ??An injection was ?? performed through the 4F right femoral artery sheath. 6. Hemostasis: ??The sheath was sewn in place, an obturator was placed in the ?? sheath, and the patient was started on a heparin infusion while the films ?? were being evaluated by the interventional cardiology staff. 7. Complications: ??During the procedure there were no apparent complications. ?? The patient tolerated the procedure well. RESULTS: Left Heart Hemodynamics: Left ventricular pressure 138/18-28 mmHg post selective coronary angiography; 138/86 mmHg in the aorta on pullback; no gradient across the aortic valve. Selective Coronary Arteriography: 1. Left main coronary artery: ??Mild narrowing less than 30%. 2. Left anterior descending coronary artery: ??There is an occlusion of the left ?? anterior descending coronary artery distal to the origin of the very large ?? first diagonal branch. ??The left anterior descending coronary artery is ?? short and does not wrap around the apex. ??There is a second occlusion in the ?? distal segment of the vessel. ??There is collateral filling of the apical ?? portion of the left anterior descending coronary artery from the right ?? coronary artery. The proximal segment of the distal left anterior descending ?? coronary artery is not seen. ?? The first diagonal branch is large and ?? supplies the anteroapical wall. ??There is a 50-60% eccentric proximal ?? narrowing before this branch bifurcates into separate rami. 3. Left circumflex coronary artery: ??There is a moderate OM 1 branch that has ?? 50% narrowing. ??There is a stented region that begins just proximal to the ?? very large OM 2 branch and extends into the proximal portion of the OM 2 ?? branch. ??This area of stenting has mild in-stent narrowing less than 30%. ?? Distal to the area of stenting there is 30% narrowing in an area of ?? tortuosity. 4. Right coronary artery: ??This is a dominant right coronary artery. ??There is ?? a 50% narrowing of a small caliber RV1 branch. ??There is a large acute ?? marginal branch that wraps around the apex and supplies the apical region of ?? the left ventricle. ??The small caliber but long RPLV 1 branch has 50-60% ?? proximal narrowing. ??There are smaller RPD 2, RPLV 1, and RPLV 2 branches. ?? The RPLV 3 branch is large. Right Distal Iliac / Proximal Femoral Angiography: The sheath is placed below the head of the femur at the bifurcation of the femoral artery in the deep femoral artery. ??There is 50% proximal narrowing of the deep femoral artery and 40% proximal narrowing of the superficial femoral artery. ??There is no dye extravasation, AV fistula, or dissection. DIAGNOSTIC IMPRESSIONS: 1. Mild elevation of the systemic arterial blood pressure during the study. 2. Moderately to markedly elevated left ventricular end diastolic pressure ?? following selective coronary angiography. 3. No gradient across the aortic valve. 4. Significant three vessel coronary artery disease. 5. The stented region of the circumflex coronary artery is widely patent with ?? mild in-stent restenosis. THERAPEUTIC RECOMMENDATIONS: ?The findings of the cardiac catheterization were discussed with the patient and Dr. Mcdonough and reviewed and discussed with Dr. Ch of the Interventional Cardiology Service. ??The consensus is to perform a fractional flow reserve evaluation of the large D1 branch. ??Following that evaluation Dr. Ch will further discuss the therapeutic options with Dr. Mcdonough. ??Dr. Mcdonough will determine the patient's future therapy and follow-up. Electronically Signed By Kuldeep Cavanaugh M.D. 10/18/2013 01:04 P Barbara [facility] #[id number] Editing MT: TD: ??10/10/2013 11:55:00 cc: ?? Kuldeep Cavanaugh M.D. ?Fernando Alexandra M.D. ?Dhiraj Mcdonough M.D. Procedure Note Provider, MD Homero - 12/26/2016 Patient: Tressa Rodas Reg No: [id number] [facility] #: [id number] : 1955 Attending: Kuldeep Vizcaino M.D. Dictating: Kuldeep Vizcaino M.D. Service Dt: 10/10/2013 CARDIAC CATHETERIZATION REPORT Final PATIENT CLINICAL PROFILE: Tressa Rodsa is a 58-year-old female with knowncoronary artery disease, status-post stenting of the circumflex coronary arteryon 05/07/2013 at [facility], who presented for a secondopinion regarding the need for coronary artery bypass grafting. The patientcontinues to have exertional shortness of breath, fatigue, and symptoms of angina.She is now referred by Dr. Mcdonough for left heart catheterization andselective coronary angiography. The patient currently smokes one-half pack per day down from twopacks per day. She also has hypertension, dyslipidemia, obesity, and a family history of premature coronary artery disease. At the time of the catheterization and stenting in 04/2013 the patient was noted to have a moderate lesion of the RPD branch of the dominant right coronary artery, ahigh grade narrowing of the circumflex coronary artery that was stented, andan occluded left anterior descending coronary artery distal to a very largefirst diagonal branch that wraps toward the apex. The left anteriordescending coronary artery was short and did not reach the apex. An echocardiogramat this institution showed normal left ventricular size and systolicfunction. Allergy: None. PROCEDURE: 1. Access: Fentanyl and Midazolam were used for sedation; 2% Lidocainewas used for local anesthesia; modified Seldinger technique;micropuncture technique; 4F / 12-cm sheath right femoral artery. 2. Selective angiography of the left coronary artery: 4F JL 4.5catheter. 3. Selective angiography of the right coronary artery: 4F WRP catheter. 4. Left heart catheterization / no left ventriculography: 4F straightpigtail catheter. 5. Right distal iliac / proximal femoral angiography: An injection was performed through the 4F right femoral artery sheath. 6. Hemostasis: The sheath was sewn in place, an obturator was placed inthe sheath, and the patient was started on a heparin infusion while thefilms were being evaluated by the interventional cardiology staff. 7. Complications: During the procedure there were no apparentcomplications. The patient tolerated the procedure well. RESULTS: Left Heart Hemodynamics: Left ventricular pressure 138/18-28 mmHg post selective coronaryangiography; 138/86 mmHg in the aorta on pullback; no gradient across the aorticvalve. Selective Coronary Arteriography: 1. Left main coronary artery: Mild narrowing less than 30%. 2. Left anterior descending coronary artery: There is an occlusion of theleft anterior descending coronary artery distal to the origin of the verylarge first diagonal branch. The left anterior descending coronary arteryis short and does not wrap around the apex. There is a second occlusionin the distal segment of the vessel. There is collateral filling of theapical portion of the left anterior descending coronary artery from theright coronary artery. The proximal segment of the distal left anteriordescending coronary artery is not seen. The first diagonal branch is large and supplies the anteroapical wall. There is a 50-60% eccentric proximal narrowing before this branch bifurcates into separate rami. 3. Left circumflex coronary artery: There is a moderate OM 1 branch thathas 50% narrowing. There is a stented region that begins just proximal tothe very large OM 2 branch and extends into the proximal portion of the OM2 branch. This area of stenting has mild in-stent narrowing less than30%. Distal to the area of stenting there is 30% narrowing in an area of tortuosity. 4. Right coronary artery: This is a dominant right coronary artery.There is a 50% narrowing of a small caliber RV1 branch. There is a largeacute marginal branch that wraps around the apex and supplies the apicalregion of the left ventricle. The small caliber but long RPLV 1 branch znf28-22% proximal narrowing. There are smaller RPD 2, RPLV 1, and RPLV 2branches. The RPLV 3 branch is large. Right Distal Iliac / Proximal Femoral Angiography: The sheath is placed below the head of the femur at the bifurcation ofthe femoral artery in the deep femoral artery. There is 50% proximalnarrowing of the deep femoral artery and 40% proximal narrowing of the superficialfemoral artery. There is no dye extravasation, AV fistula, or dissection. DIAGNOSTIC IMPRESSIONS: 1. Mild elevation of the systemic arterial blood pressure during thestudy. 2. Moderately to markedly elevated left ventricular end diastolicpressure following selective coronary angiography. 3. No gradient across the aortic valve. 4. Significant three vessel coronary artery disease. 5. The stented region of the circumflex coronary artery is widely patentwith mild in-stent restenosis. THERAPEUTIC RECOMMENDATIONS: The findings of the cardiac catheterization were discussed withthe patient and Dr. Mcdonough and reviewed and discussed with Dr. Ch ofthe Interventional Cardiology Service. The consensus is to perform afractional flow reserve evaluation of the large D1 branch. Following that evaluationDr. Ch will further discuss the therapeutic options with Dr. Mcdonough.Dr. Mcdonough will determine the patient's future therapy and follow-up. Electronically Signed By Kuldeep Cavanaugh M.D. 10/18/2013 01:04 P Barbara Frederick/magda #[id number] Editing MT: TD: 10/10/2013 11:55:00 cc: Barbara Frederick M.D. Majesh Makan, M.D. us Historical Provider CV CARDIAC CATH PROCEDURE S Final Result documented in this encounter Visit Diagnoses Diagnosis Coronary atherosclerosis of [place] coronary artery Other complications due to other cardiac device, implant, and graft Tobacco use disorder Essential hypertension Unspecified essential hypertension Postsurgical percutaneous transluminal coronary angioplasty status Other and unspecified hyperlipidemia Obesity Obesity, unspecified Family history of ischemic heart disease Encounter for long-term (current) use of aspirin Encounter for long-term (current) use of other medications Surgical operation with implant of artificial internal device causing abnormal patient reaction, or later complication documented in this encounter
--- OUTSIDE RECORDS SUMMARY | 2024-08-30 18:59 | XMS_ITS | Encounter Summary ---
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 Gender Identity Not on file Sexual Orientation Not on file documented as of this encounter Medications at Time of Discharge aspirin 81 mg enteric coated tablet Take 1 tablet (81 mg total) by mouth nightly levothyroxine (SYNTHROID, LEVOTHROID) 75 mcg tablet Take 1 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 (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 3 12/05/2018 metFORMIN (GLUCOPHAGE) 1,000 [...] DAILY 9 metoprolol (LOPRESSOR) 25 mg tablet metoprolol tartrate 25 mg tablet TAKE 1 TABLET BY MOUTH TWICE DAILY 9 metoprolol (LOPRESSOR) 25 mg tablet [...] or self care documented in this encounter Plan of Treatment Not on file documented as of this encounter Procedures Procedure Name Priority Date/Time Associated Diagnosis Comments XR CHEST PA LATERAL 2 VIEWS IP Routine 12/31/2018 8:49 AM CDT documented in this encounter Results * XR Chest Pa Lateral 2 Views [...] MD IMG XR PROCEDURES Jennifer l Result documented in this encounter Visit Diagnoses Not on filedocumented in this encounter Care Teams Therapist'S Assistant Relationship Specialty Start Date End Date Robbie Haywood MD [address] [place] [address] PCP - General 12/29/18 12/13/20 documented as of this encounter
--- OUTSIDE RECORDS SUMMARY | 2024-08-30 18:59 | XMS_ITS | Encounter Summary ---
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 Justino Reynoso MD [address] [facility] [address] [place] [address] Coronary atherosclerosis of [place] coronary artery; Ventricular fibrillation (CMS/HCC) (HCC); Paroxysmal ventricular tachycardia (HCC); Atrial flutter (CMS/HCC) (HCC); Cardiac complication; Atrial fibrillation (CMS/HCC) (HCC); Other and unspecified hyperlipidemia; Essential hypertension; Obstructive sleep apnea; Esophageal reflux; Anxiety state; Pure hypercholesterolemia; Tobacco use disorder; Hypopotassemia; Postsurgical percutaneous transluminal coronary angioplasty status; History of allergy to other antibiotic agent; Tubal ligation status; Family history of ischemic heart disease; Family history of malignant neoplasm; Other specified counseling; Surgical operation with anastomosis, bypass, or graft, with natural or artificial tissues used as implant causing abnormal patient reaction, or later complication; Place of occurrence, residential institution Social History Tobacco Use Types Packs/Day Years Used Date Smoking Tobacco: Never Assessed Comments Unknown Sex and Gender Information Value Date Recorded Sex Assigned at Not on file Legal Sex Female 3:00 AM [employer]WORK[employer] Gender Identity Not on file Sexual Orientation Not on file documented as of this encounter Last Filed Vital Signs Vital Sign Reading Time Taken Comments Blood Pressure 130/80 03/03/2014 11:00 AM CDT Pulse 71 03/03/2014 11:00 AM CDT Temperature - - Respiratory Rate - - Oxygen Saturation 96% 03/03/2014 11:00 AM CDT Inhaled Oxygen Concentration - - Weight 97 kg (213 lb 14.2 oz) 03/03/2014 1:00 AM CDT Height 165.1 cm (5' 5 ) 02/23/2014 2:16 PM CDT Body Mass Index 35.59 02/23/2014 2:16 PM CDT documented in this encounter Miscellaneous Notes * Op Note - Provider, MD Homero - 02/23/2014 12:00 AM CDT Patient: Tressa Myers Reg No: [id number] [facility] #: [id number] Admit Dt.: 02/23/2014 : 1955 Pt Type: 100 Room No: [id number] Attending: Justino Doyle M.D. Surgeon: Justino Doyle M.D. Dictating: Justino Doyle M.D. Service Dt: 02/23/2014 OPERATIVE REPORT FIRST OPERATIONS LOGISTICS ANALYST: Abel Griffiths M.D. ANESTHESIA: General endotracheal. PREOPERATIVE DIAGNOSIS (ES): Severe coronary disease, occluded left anterior descending artery status post stent to the circumflex, with angina. POSTOPERATIVE DIAGNOSIS (ES): Severe coronary disease, occluded left anterior descending artery status post stent to the circumflex, with angina. NAME OF OPERATION: Coronary artery bypass grafting times one with the left internal mammary artery to the left anterior descending artery off pump approach with placement of intra-aortic balloon pump. INDICATIONS FOR PROCEDURE: The patient presented with severe coronary disease, occluded LAD and had a stent in the circumflex in the past. She understood the risks of stroke, bleeding, and and agreed to proceed. OPERATIVE FINDINGS: The patient's left ventricular function was okay, about 35% ejection fraction. We did a ROSEN to the LAD. The LAD was occluded. After we put in the sternal wires, however, the patient had inferior wall dysfunction. We gave a Heparin bolus to make sure there wasn't clotting of the stent. We also put in an intra-aortic balloon pump for hemodynamic stability. She stabilized. We decided to put her back on 2B3A inhibitors despite the risk of bleeding. DESCRIPTION OF PROCEDURE: The patient's chest was prepped and draped. Median sternotomy was performed. The mammary was taken down on the left and it was an excellent mammary. We then got the stabilizer on the field, opened up the pericardium, stabilized the LAD, put a tourniquet proximally and then prepared the mammary. We gave Heparin to an ACT over 350. We then opened up the LAD and anastomosed the mammary to it end to side with 7-0 Prolene and tacked it down with 5-0. We then reconstituted distal flow. Hemodynamics were stable, measured flow over 20 mL a minute in the graft. At this point we put in multiple chest tubes and sternal wires but the patient became hemodynamically unstable. We put in sutures for potential cannulation but we did not need to cannulate. The patient stabilized with elevation of the blood pressure and giving Heparin. We then used a Seldinger technique to cannulate the right femoral artery and placed an intra-aortic balloon pump into the proximal descending, thoracic aorta and initiated balloon counter-pulsation. With this hemodynamics stabilized. Bleeding was okay. We then closed up with wire and absorbable suture. We sent the patient to the ICU in critical condition. There was no cardiopulmonary bypass time and no pump time. Of note we gave Ancef and Vancomycin for antibiotics which will be discontinued within 48 hours and we did not use any specific DVT prophylaxis since this is not indicated for cardiac surgical procedures. PRESENCE STATEMENT: I directly participated in all clement portions including positioning in the heart, distal anastomosis, and placement of the intra-aortic balloon pump and was otherwise immediately available for the entire operation. Electronically Signed By Justino Doyle M.D. 02/26/2014 08:17 A Justino Doyle M.D. [facility]/deborah #[id number] Editing MT: TD: 02/24/2014 10:26:00 cc: Justino Doyle M.D. documented in this encounter Plan of Treatment Not on file documented as of this encounter Procedures Procedure Name Priority Date/Time Associated Diagnosis Comments URINE (AEROBIC) CULTURE, CDR Routine 03/03/2014 8:37 AM CDT URINE MICROSCOPY Routine 03/03/2014 8:37 AM CDT URINALYSIS Routine 03/03/2014 8:37 AM CDT ALL MICROBIOLOGY REPORT SECTION Routine 03/03/2014 12:00 AM CDT DISCHARGE LABORATORY CUMULATIVE REPORT Routine 03/03/2014 12:00 AM CDT PLASMA BASIC METABOLIC PANEL Routine 03/02/2014 9:19 PM CDT BLOOD CELL COUNT Routine 03/02/2014 9:19 PM CDT BLOOD GLUCOSE, POC Routine 03/02/2014 8: 38 PM CDT XR CHEST PA LATERAL 2 VIEWS Routine 03/02/2014 7:01 PM CDT PLASMA BASIC METABOLIC PANEL Routine 03/01/2014 10:24 PM CDT BLOOD CELL COUNT Routine 03/01/2014 10:2 4 PM CDT MRSA SURVEILLANCE CULTURE, CDR Routine 03/01/2014 2:24 PM CDT ALL MICROBIOLOGY REPORT SECTION Routine 03/01/2014 12:00 AM CDT XR CHEST 1 VIEW Routine 02/28/2014 9:40 PM CDT SERUM MAGNESIUM Routine 02/28/2014 8:47 PM CDT PLASMA PHOSPHORUS Routine 02/28/2014 8:4 7 PM CDT PLASMA PARTIAL THROMBOPLASTIN TIME (PTT) Routine 02/28/2014 8:47 PM CDT PLASMA BASIC METABOLIC PANEL Routine 02/28/2014 8:47 PM CDT BLOOD CELL COUNT Routine 02/28/2014 8:47 PM CDT PLASMA PARTIAL THROMBOPLASTIN TIME (PTT) Routine 02/28/2014 2:33 PM CDT BLOOD POTASSIUM, MIXED VENOUS Routine 02/28/2014 2:33 PM CDT BLOOD POTASSIUM, MIXED VENOUS Routine 02/28/2014 8:38 AM CDT BLOOD GLUCOSE, POC Routine 02/28/2014 7: 48 AM CDT PLASMA PARTIAL THROMBOPLASTIN TIME (PTT) Routine 02/28/2014 6:21 AM CDT ELECTROCARDIOGRAPHY (ECG) 02/28/2014 PLASMA PARTIAL THROMBOPLASTIN TIME (PTT) Routine 02/27/2014 10:55 PM CDT BLOOD POTASSIUM, MIXED VENOUS Routine 02/27/2014 10:55 PM CDT BLOOD GAS, ARTERIAL Routine 02/27/2014 1 0:55 PM CDT XR CHEST 1 VIEW Routine 02/27/2014 9:12 PM CDT SERUM MAGNESIUM Routine 02/27/2014 8:56 PM CDT PLASMA PHOSPHORUS Routine 02/27/2014 8:5 6 PM CDT PLASMA BASIC METABOLIC PANEL Routine 02/27/2014 8:56 PM CDT BLOOD CELL COUNT Routine 02/27/2014 8:56 PM CDT BLOOD GLUCOSE, POC Routine 02/27/2014 8: 54 PM CDT PLASMA PARTIAL THROMBOPLASTIN TIME (PTT) Routine 02/27/2014 4:28 PM CDT BLOOD POTASSIUM, MIXED VENOUS Routine 02/27/2014 4:26 PM CDT BLOOD GLUCOSE, POC Routine 02/27/2014 12 :00 PM CDT BLOOD GLUCOSE, POC Routine 02/27/2014 7: 28 AM CDT BLOOD POTASSIUM, MIXED VENOUS Routine 02/27/2014 7:25 AM CDT BLOOD HEMOGLOBIN SATURATION Routine 02/27/2014 7:25 AM CDT BLOOD GAS, ARTERIAL Routine 02/27/2014 7 :25 AM CDT BLOOD GLUCOSE, POC Routine 02/27/2014 3: 53 AM CDT BLOOD GLUCOSE, POC Routine 02/27/2014 12 :07 AM CDT SERUM MAGNESIUM Routine 02/26/2014 8:44 PM CDT PLASMA PHOSPHORUS Routine 02/26/2014 8:4 4 PM CDT PLASMA BASIC METABOLIC PANEL Routine 02/26/2014 8:44 PM CDT BLOOD HEMOGLOBIN SATURATION Routine 02/26/2014 8:44 PM CDT BLOOD CELL COUNT Routine 02/26/2014 8:44 PM CDT BLOOD GAS, ARTERIAL Routine 02/26/2014 8 :44 PM CDT XR CHEST 1 VIEW Routine 02/26/2014 8:40 PM CDT BLOOD GLUCOSE, POC Routine 02/26/2014 7: 38 PM CDT BLOOD POTASSIUM, MIXED VENOUS Routine 02/26/2014 5:07 PM CDT BLOOD HEMOGLOBIN SATURATION Routine 02/26/2014 5:07 PM CDT BLOOD GAS, ARTERIAL Routine 02/26/2014 5 :07 PM CDT BLOOD GLUCOSE, POC Routine 02/26/2014 4: 33 PM CDT BLOOD ABO, RH, INDIRECT AB SCREEN Routine 02/26/2014 1:47 PM CDT BLOOD POTASSIUM, MIXED VENOUS Routine 02/26/2014 11:49 AM CDT BLOOD HEMOGLOBIN SATURATION Routine 02/26/2014 11:49 AM CDT BLOOD GAS, ARTERIAL Routine 02/26/2014 1 1:49 AM CDT BLOOD GLUCOSE, POC Routine 02/26/2014 11 :45 AM CDT BLOOD CELL COUNT Routine 02/26/2014 9:00 AM CDT BLOOD POTASSIUM, MIXED VENOUS Routine 02/26/2014 8:48 AM CDT BLOOD HEMOGLOBIN SATURATION Routine 02/26/2014 8:48 AM CDT BLOOD GAS, ARTERIAL Routine 02/26/2014 8 :48 AM CDT BLOOD GLUCOSE, POC Routine 02/26/2014 7: 32 AM CDT BLOOD GAS, ARTERIAL Routine 02/26/2014 6 :26 AM CDT BLOOD HEMOGLOBIN SATURATION Routine 02/26/2014 3:47 AM CDT BLOOD GLUCOSE, POC Routine 02/26/2014 3: 46 AM CDT BLOOD GLUCOSE, POC Routine 02/25/2014 11 :44 PM CDT URINE (AEROBIC) CULTURE, CDR Routine 02/25/2014 10:02 PM CDT BLOOD CULTURE, CDR Routine 02/25/2014 10 :02 PM CDT BLOOD CULTURE, CDR Routine 02/25/2014 10 :02 PM CDT AEROBIC CULTURE AND GRAM STAIN, CDR Routine 02/25/2014 10:02 PM CDT SERUM MAGNESIUM Routine 02/25/2014 10:02 PM CDT PLASMA PROTHROMBIN TIME (PT) Routine 02/25/2014 10:02 PM CDT PLASMA PHOSPHORUS Routine 02/25/2014 10: 02 PM CDT PLASMA PARTIAL THROMBOPLASTIN TIME (PTT) Routine 02/25/2014 10:02 PM CDT PLASMA BASIC METABOLIC PANEL Routine 02/25/2014 10:02 PM CDT BLOOD HEMOGLOBIN SATURATION Routine 02/25/2014 10:02 PM CDT BLOOD CELL COUNT Routine 02/25/2014 10:0 2 PM CDT BLOOD GAS, ARTERIAL Routine 02/25/2014 1 0:02 PM CDT XR CHEST 1 VIEW Routine 02/25/2014 9:15 PM CDT BLOOD GLUCOSE, POC Routine 02/25/2014 7 :41 PM CDT BLOOD POTASSIUM, MIXED VENOUS Routine 02/25/2014 3:40 PM CDT BLOOD HEMOGLOBIN SATURATION Routine 02/25/2014 3:40 PM CDT BLOOD GAS, ARTERIAL Routine 02/25/2014 3 :40 PM CDT BLOOD GLUCOSE, POC Routine 02/25/2014 3: 32 PM CDT BLOOD GLUCOSE, POC Routine 02/25/2014 2: 11 PM CDT BLOOD GLUCOSE, POC Routine 02/25/2014 11 :42 AM CDT BLOOD GLUCOSE, POC Routine 02/25/2014 10 :02 AM CDT BLOOD POTASSIUM, MIXED VENOUS Routine 02/25/2014 9:13 AM CDT BLOOD HEMOGLOBIN SATURATION Routine 02/25/2014 9:13 AM CDT BLOOD GLUCOSE, POC Routine 02/25/2014 8: 56 AM CDT BLOOD GLUCOSE, POC Routine 02/25/2014 7: 35 AM CDT BLOOD CELL COUNT Routine 02/25/2014 6:07 AM CDT BLOOD GLUCOSE, POC Routine 02/25/2014 6: 05 AM CDT BLOOD POTASSIUM, MIXED VENOUS Routine 02/25/2014 4:16 AM CDT BLOOD GAS, ARTERIAL Routine 02/25/2014 4 :16 AM CDT BLOOD GLUCOSE, POC Routine 02/25/2014 4: 14 AM CDT BLOOD GLUCOSE, POC Routine 02/25/2014 1: 22 AM CDT BLOOD GLUCOSE, POC Routine 02/25/2014 12 :08 AM CDT ALL MICROBIOLOGY REPORT SECTION Routine 02/25/2014 12:00 AM CDT ALL MICROBIOLOGY REPORT SECTION Routine 02/25/2014 12:00 AM CDT ALL MICROBIOLOGY REPORT SECTION Routine 02/25/2014 12:00 AM CDT ALL MICROBIOLOGY REPORT SECTION Routine 02/25/2014 12:00 AM CDT BLOOD GLUCOSE, POC Routine 02/24/2014 11 :13 PM CDT BLOOD GLUCOSE, POC Routine 02/24/2014 10 :38 PM CDT SERUM MAGNESIUM Routine 02/24/2014 9:23 PM CDT PLASMA PROTHROMBIN TIME (PT) Routine 02/24/2014 9:23 PM CDT PLASMA PARTIAL THROMBOPLASTIN TIME (PTT) Routine 02/24/2014 9:23 PM CDT PLASMA BASIC METABOLIC PANEL Routine 02/24/2014 9:23 PM CDT BLOOD POTASSIUM, MIXED VENOUS Routine 02/24/2014 9:23 PM CDT BLOOD LACTIC ACID Routine 02/24/2014 9:2 3 PM CDT BLOOD HEMOGLOBIN SATURATION Routine 02/24/2014 9:23 PM CDT BLOOD CELL COUNT Routine 02/24/2014 9:23 PM CDT BLOOD CALCIUM, IONIZED Routine 4 9:23 PM CDT BLOOD GAS, ARTERIAL Routine 02/24/2014 9 :23 PM CDT BLOOD GLUCOSE, POC Routine 02/24/2014 9: 08 PM CDT XR CHEST 1 VIEW Routine 02/24/2014 8:36 PM CDT BLOOD GLUCOSE, POC Routine 02/24/2014 6: 17 PM CDT BLOOD GLUCOSE, POC Routine 02/24/2014 4 :51 PM CDT SERUM MAGNESIUM Routine 02/24/2014 3:11 PM CDT BLOOD POTASSIUM, MIXED VENOUS Routine 02/24/2014 3:11 PM CDT BLOOD CALCIUM, IONIZED Routine 201 4 3:11 PM CDT BLOOD GLUCOSE, POC Routine 02/24/2014 2: 17 PM CDT PLASMA PROTHROMBIN TIME (PT) Routine 02/24/2014 11:37 AM CDT PLASMA PARTIAL THROMBOPLASTIN TIME (PTT) Routine 02/24/2014 11:37 AM CDT BLOOD POTASSIUM, MIXED VENOUS Routine 02/24/2014 11:37 AM CDT BLOOD CELL COUNT Routine 02/24/2014 11:3 7 AM CDT BLOOD GAS, ARTERIAL Routine 02/24/2014 1 1:37 AM CDT BLOOD GLUCOSE, POC Routine 02/24/2014 11 :35 AM CDT BLOOD GLUCOSE, POC Routine 02/24/2014 10 :18 AM CDT BLOOD POTASSIUM, MIXED VENOUS Routine 02/24/2014 8:10 AM CDT BLOOD LACTIC ACID Routine 02/24/2014 8:1 0 AM CDT BLOOD HEMOGLOBIN SATURATION Routine 02/24/2014 8:10 AM CDT BLOOD CALCIUM, IONIZED Routine 4 8:10 AM CDT BLOOD GAS, ARTERIAL Routine 02/24/2014 8 :10 AM CDT BLOOD GLUCOSE, POC Routine 02/24/2014 8: 03 AM CDT BLOOD GLUCOSE, POC Routine 02/24/2014 6: 00 AM CDT BLOOD GLUCOSE, POC Routine 02/24/2014 3: 53 AM CDT BLOOD GLUCOSE, POC Routine 02/24/2014 2: 03 AM CDT ELECTROCARDIOGRAPHY (ECG) 02/24/2014 CRITICAL RESULT CALL BACK Routine 2013 11:59 PM CDT BLOOD POTASSIUM, MIXED VENOUS Routine 02/23/2014 11:59 PM CDT BLOOD LACTIC ACID Routine 02/23/2014 11: 59 PM CDT BLOOD CELL COUNT Routine 02/23/2014 11:5 9 PM CDT BLOOD GAS, ARTERIAL Routine 02/23/2014 1 1:59 PM CDT BLOOD GLUCOSE, POC Routine 02/23/2014 11 :57 PM CDT BLOOD GLUCOSE, POC Routine 02/23/2014 10 :13 PM CDT BLOOD GAS, ARTERIAL Routine 02/23/2014 9 :22 PM CDT BLOOD GLUCOSE, POC Routine 02/23/2014 9 :12 PM CDT BLOOD GLUCOSE, POC Routine 02/23/2014 8: 27 PM CDT CRITICAL RESULT CALL BACK Routine 2013 7:15 PM CDT BLOOD POTASSIUM, MIXED VENOUS Routine 02/23/2014 7:15 PM CDT BLOOD CALCIUM, IONIZED Routine 4 7:15 PM CDT BLOOD GLUCOSE, POC Routine 02/23/2014 7: 12 PM CDT MRSA SURVEILLANCE CULTURE, CDR Routine 02/23/2014 7:09 PM CDT BLOOD HEMOGLOBIN SATURATION Routine 02/23/2014 7:09 PM CDT SERUM MAGNESIUM Routine 02/23/2014 7:08 PM CDT SERUM LIPID PANEL Routine 02/23/2014 7:0 8 PM CDT PLASMA PROTHROMBIN TIME (PT) Routine 02/23/2014 7:08 PM CDT PLASMA PHOSPHORUS Routine 02/23/2014 7:0 8 PM CDT PLASMA PARTIAL THROMBOPLASTIN TIME (PTT) Routine 02/23/2014 7:08 PM CDT PLASMA COMPREHENSIVE METABOLIC PANEL Routine 02/23/2014 7:08 PM CDT CRITICAL RESULT CALL BACK Routine 2013 7:08 PM CDT BLOOD LACTIC ACID Routine 02/23/2014 7:0 8 PM CDT BLOOD CELL COUNT Routine 02/23/2014 7:08 PM CDT BLOOD GAS, ARTERIAL Routine 02/23/2014 7 :08 PM CDT XR CHEST 1 VIEW Routine 02/23/2014 6:54 PM CDT BLOOD GLUCOSE, POC Routine 02/23/2014 6: 52 PM CDT BLOOD GAS, POINT OF CARE, ARTERIAL Routine 02/23/2014 6:28 PM CDT BLOOD PLATELET, HEMATOCRIT POINT OF CARE Routine 02/23/2014 6:27 PM CDT BLOOD PLATELET, HEMATOCRIT POINT OF CARE Routine 02/23/2014 5:35 PM CDT BLOOD PROTHROMBIN TIME (PT) Routine 02/23/2014 5:31 PM CDT PLASMA PARTIAL THROMBOPLASTIN TIME (PTT) Routine 02/23/2014 5:27 PM CDT BLOOD GAS, POINT OF CARE, ARTERIAL Routine 02/23/2014 5:19 PM CDT BLOOD GLUCOSE, POC Routine 02/23/2014 4: 38 PM CDT BLOOD CELL COUNT (CBC) Routine 4 3:18 PM CDT BLOOD GLUCOSE, POC Routine 02/23/2014 3: 02 PM CDT BLOOD PH Routine 02/23/2014 2:15 PM CDT BLOOD HEMOGLOBIN SATURATION Routine 02/23/2014 2:07 PM CDT BLOOD GAS, ARTERIAL Routine 02/23/2014 2 :07 PM CDT BLOOD GLUCOSE, POC Routine 02/23/2014 2: 04 PM CDT ABDOMINAL RADIOGRAPHY, FRONTAL (AP) Routine 02/23/2014 2:01 PM CDT XR CHEST 1 VIEW Routine 02/23/2014 2:01 PM CDT ABDOMINAL RADIOGRAPHY, FRONTAL (AP) Routine 02/23/2014 1:03 PM CDT XR CHEST 1 VIEW Routine 02/23/2014 1:03 PM CDT SERUM MAGNESIUM Routine 02/23/2014 12:55 PM CDT PLASMA PROTHROMBIN TIME (PT) Routine 02/23/2014 12:55 PM CDT PLASMA PHOSPHORUS Routine 02/23/2014 12: 55 PM CDT PLASMA PARTIAL THROMBOPLASTIN TIME (PTT) Routine 02/23/2014 12:55 PM CDT PLASMA BASIC METABOLIC PANEL Routine 02/23/2014 12:55 PM CDT BLOOD POTASSIUM, MIXED VENOUS Routine 02/23/2014 12:55 PM CDT BLOOD GLUCOSE, POC Routine 02/23/2014 12 :55 PM CDT BLOOD CELL COUNT Routine 02/23/2014 12:5 5 PM CDT BLOOD GAS, ARTERIAL Routine 02/23/2014 1 2:55 PM CDT URINE (AEROBIC) CULTURE, CDR Routine 02/23/2014 12:38 PM CDT BLOOD HEPARIN/ACTIVATED CLOTTING TIME (ACT) Routine 02/23/2014 12:07 PM CDT BLOOD HEPARIN/ACTIVATED CLOTTING TIME (ACT) Routine 02/23/2014 11:45 AM CDT BLOOD GAS, POINT OF CARE, ARTERIAL Routine 02/23/2014 11:27 AM CDT BLOOD HEPARIN/ACTIVATED CLOTTING TIME (ACT) Routine 02/23/2014 11:22 AM CDT BLOOD GAS, POINT OF CARE, ARTERIAL Routine 02/23/2014 11:00 AM CDT BLOOD HEPARIN/ACTIVATED CLOTTING TIME (ACT) Routine 02/23/2014 10:52 AM CDT BLOOD GAS, POINT OF CARE, ARTERIAL Routine 02/23/2014 10:41 AM CDT BLOOD PROTHROMBIN TIME (PT) Routine 02/23/2014 10:39 AM CDT BLOOD PLATELET, HEMATOCRIT POINT OF CARE Routine 02/23/2014 10:39 AM CDT PLASMA PARTIAL THROMBOPLASTIN TIME (PTT) Routine 02/23/2014 10:37 AM CDT BLOOD HEPARIN/ACTIVATED CLOTTING TIME (ACT) Routine 02/23/2014 10:30 AM CDT BLOOD HEPARIN/ACTIVATED CLOTTING TIME (ACT) Routine 02/23/2014 10:01 AM CDT BLOOD HEPARIN/ACTIVATED CLOTTING TIME (ACT) Routine 02/23/2014 9:49 AM CDT BLOOD HEPARIN/ACTIVATED CLOTTING TIME (ACT) Routine 02/23/2014 9:36 AM CDT BLOOD GAS, POINT OF CARE, ARTERIAL Routine 02/23/2014 9:13 AM CDT BLOOD HEPARIN DOSE RESPONSE Routine 02/23/2014 9:04 AM CDT BLOOD ABO, RH, INDIRECT AB SCREEN Routine 02/23/2014 6:50 AM CDT ELECTROCARDIOGRAPHY (ECG) 02/23/2014 ALL MICROBIOLOGY REPORT SECTION Routine 02/23/2014 12:00 AM CDT ALL MICROBIOLOGY REPORT SECTION Routine 02/23/2014 12:00 AM CDT documented in this encounter Results * Urine (aerobic) culture (03/03/2014 8:37 AM CDT) Urine (Unknown) 03/03/2014 8 :37 AM CDT 03/03/2014 11:25 AM CDT Narrative HISTORICAL RESULTS - 03/04/2014 2:33 PM CDT No growth Historical Provider MD LAB MICROBIOLOGY - GENERA L ORDERABLES Final Result HISTORICAL RESULTS * (ABNORMAL) Urinalysis (03/03/2014 8:37 AM CDT) Color, ur Deysi Yellow HISTORICAL RESULTS Clarity, ur Clear Clear HISTORIC AL RESULTS Specific gravity, ur 1.028 1.003 - 1.030 HISTORICAL RESULTS pH, ur 6.0 5.0 - 8.0 HISTORICAL RESULTS Protein, ur 1+(A) Trace HISTORIC AL RESULTS Glucose, ur Negative Negative HISTORIC AL RESULTS Ketones, ur Negative Negative HISTORIC AL RESULTS Bilirubin, ur Negative Negative HISTOR ICAL RESULTS U Blood Negative Negative HISTORICAL RESULTS Urobilinogen, quant, ur 2.0 0.0 - 2.0 mg/dl HISTORICAL RESULTS Nitrites, ur Negative Negative HISTORI BRUNO RESULTS Leukocyte esterase, ur Negative Negative HISTORICAL RESULTS Urine 03/03/2014 8:37 AM CDT Alejandra Fields [employer]TER [employer]MPER LAB BLOOD ORDERABLES Jennifer l Result HISTORICAL RESULTS * Urine microscopy (03/03/2014 8:37 AM CDT) RBC, ur 0 0 - 3 /hpf HISTORICA L RESULTS WBC, ur 2 0 - 5 /hpf HISTORICA L RESULTS Bacteria, ur Negative Trace HISTORI BRUNO RESULTS Epithelial cells, renal, ur 0 0 - 0 /hpf HISTORICAL RESULTS Epithelial cells, squamous, ur >20 /lpf HISTORICAL RESULTS Mucus, ur Small /hpf HISTORICAL RESULTS Urine 03/03/2014 8:37 AM CDT [facility] LAB BLOOD ORDERABLES Jennifer l Result Performing Organization Address [facility] Co de Phone Number HISTORICAL RESULTS * Discharge Laboratory Cumulative Report (03/03/2014 12:00 AM CDT) 03/03/2014 Narrative HISTORICAL RESULTS - 03/04/2014 3:18 PM CDT ?[facility] ?Department of Laboratories ? [address] [facility] [address] ? [place] [address] Patient Name: ??TRESSA MYERS [facility] Rec Number: [id number] Fin Number: ?[id number] Date: ?1955 Sex/Age: ? Female 59 years Admit Date: ?02/23/2014 Discharge Date: 03/03/2014 Doctor: ?Justino Doyle Facility: ?[facility] Location: ?OTHER Chart Printed: 03/04/2014 15:18 ?? * Abnormal ?? C Critical ?? f Footnote ?? ^ Corrected ?? L Low ?? H High ? i Interp Data ?? @ Reference Lab ?Chart Type:Cumulative ?BLOOD GASES ? Arterial Blood Gases ?Test: pH ? pCO2 ? pO2 ? Total CO2 ? Reference: [7.35-7.45] ??[35-45] ??[80-105] ??[21-30] ? Units: ?mmHg ? mmHg ?mmol/L 02/27/2014 ?? 22:55:00 ?? 7.46 ??H ?41 ? 66 ??L ? 30 02/27/2014 ?? 07:25:00 ?? 7.44 ? 41 ? 68 ??L ? 29 02/26/2014 ?? 20:44:00 ?? 7.43 ? 40 ? 149 ??H ?27 02/26/2014 ?? 17:07:00 ?? 7.47 ??H ?35 ? 155 ??H ?26 02/26/2014 ?? 11:49:00 ?? 7.49 ??H ?35 ? 73 ??L ? 28 02/26/2014 ?? 08:48:00 ?? 7.45 ? 37 ? 165 ??H ?27 02/26/2014 ?? 06:26:00 ?? 7.46 ??H ?34 ??L ?53 ??L ? 25 02/25/2014 ?? 22:02:00 ?? 7.44 ? 37 ? 81 ?26 02/25/2014 ?? 15:40:00 ?? 7.44 ? 37 ? 67 ??L ? 26 02/25/2014 ?? 04:16:00 ?? 7.51 ??H ?33 ??L ?72 ??L ? 27 02/24/2014 ?? 21:23:00 ?? 7.45 ? 36 ? 57 ??L ? 26 02/24/2014 ?? 11:37:00 ?? 7.46 ??H ?34 ??L ?72 ??L ? 02/24/2014 ?? 08:10:00 ?? 7.46 ??H ?35 ? 68 ??L ? 26 02/23/2014 ?? 23:59:00 ?? 7.31 ??L ?43 ? 130 ??H ?22 02/23/2014 ?? 21:22:00 ?? 7.28 ??L ?44 ? 117 ??H ?21 02/23/2014 ?? 19:08:00 ?? 7.23 ??L ?52 ??H ?233 ??H ?22 02/23/2014 ?? 14:07:00 ?? 7.26 ??L ?40 ? 115 ??H ?18 ??L 02/23/2014 ?? 12:55:00 ?? 7.23 ??L ?50 ??H ?104 ? 22 ?Test: A-a Gradient ?% iO2 Art ? Vol iO2 Art ? Reference: ? Units: mmHg ?% ? L 02/27/2014 ?? 22:55:00 ?? Not Applicable ??Not Applicable ??9.0 02/27/2014 ?? 07:25:00 ?? Not Applicable ??Not Applicable ??4.0 02/26/2014 ?? 20:44:00 ?? 303 ? 70 ?Not Applicable 02/26/2014 ?? 17:07:00 ?? Not Applicable ??Not Applicable ??10.0 02/26/2014 ?? 11:49:00 ?? Not Applicable ??Not Applicable ??Not Applicable 02/26/2014 ?? 08:48:00 ?? Not Applicable ??Not Applicable ??Not Applicable 02/26/2014 ?? 06:26:00 ?? 262 ? 50 ?Not Applicable 02/25/2014 ?? 22:02:00 ?? 160 ? 40 ?Not Applicable 02/25/2014 ?? 15:40:00 ?? 173 ? 40 ?Not Applicable 02/25/2014 ?? 04:16:00 ?? 172 ? 40 ?Not Applicable 02/24/2014 ?? 21:23:00 ?? 184 ? 40 ?Not Applicable 02/24/2014 ?? 11:37:00 ?? 170 ? 40 ?Not Applicable ?BLOOD GASES ? Arterial Blood Gases ?Test: A-a Gradient ?% iO2 Art ? Vol iO2 Art ? Reference: ? Units: mmHg ?% ? L 02/24/2014 ?? 08:10:00 ?? 173 ? 40 ?Not Applicable 02/23/2014 ?? 23:59:00 ?? Not Applicable ??Not Applicable ??Not Applicable 02/23/2014 ?? 21:22:00 ?? 323 ? 70 ?Not Applicable 02/23/2014 ?? 19:08:00 ?? 410 ? 100 ? Not Applicable 02/23/2014 ?? 14:07:00 ?? Not Applicable ??Not Applicable ??Not Applicable 02/23/2014 ?? 12:55:00 ?? Not Applicable ??Not Applicable ??Not Applicable ?Venous Blood Gases ?Test: Hgb Tot Pul Art ??Oxyhgb Pul Art ? Reference: [12.1-15.1] ? Units: g/dL ? % 02/27/2014 ?? 07:25:00 ?? 9.1 ??L ? 50.5 02/26/2014 ?? 20:44:00 ?? 9.2 ??L ? 52.7 02/26/2014 ?? 17:07:00 ?? 8.7 ??L ? 51.7 02/26/2014 ?? 11:49:00 ?? 8.2 ??L ? 52.3 02/26/2014 ?? 08:48:00 ?? 8.1 ??L ? 57.1 02/26/2014 ?? 03:47:00 ?? 8.5 ??L ? 55.5 02/25/2014 ?? 22:02:00 ?? 8.8 ??L ? 55.5 02/25/2014 ?? 15:40:00 ?? 9.1 ??L ? 61.2 02/25/2014 ?? 09:13:00 ?? 8.7 ??L ? 52.9 02/24/2014 ?? 21:23:00 ?? 10.0 ??L ?57.7 02/24/2014 ?? 08:10:00 ?? 9.4 ??L ? 59.0 02/23/2014 ?? 19:09:00 ?? 9.5 ??L ? 74.0 02/23/2014 ?? 14:07:00 ?? 9.3 ??L ? 50.9 ?Test: CarboxyHgb Pul Art ??MetHgb Pul Art ? Reference: ? Units: % ? % 02/27/2014 ?? 07:25:00 ?? 1.2 ? 0.9 02/26/2014 ?? 20:44:00 ?? 1.4 ? 0.6 02/26/2014 ?? 17:07:00 ?? 1.7 ? 1.0 02/26/2014 ?? 11:49:00 ?? 1.0 ? 0.7 02/26/2014 ?? 08:48:00 ?? 0.8 ? 0.2 02/26/2014 ?? 03:47:00 ?? 1.1 ? 0.9 02/25/2014 ?? 22:02:00 ?? 1.4 ? 0.8 02/25/2014 ?? 15:40:00 ?? 1.2 ? 0.9 02/25/2014 ?? 09:13:00 ?? 1.1 ? 0.5 02/24/2014 ?? 21:23:00 ?? 1.1 ? 1.0 02/24/2014 ?? 08:10:00 ?? 1.2 ? 0.6 02/23/2014 ?? 19:09:00 ?? 1.6 ? 0.9 02/23/2014 ?? 14:07:00 ?? 1.5 ? 1.1 ?Test: O2 Cont Pul Art ??pH Critical Result i ? Reference: ?[7.35-7.45] ? Units: Vol % O2 02/27/2014 ?? 07:25:00 ?? 6.5 02/26/2014 ?? 20:44:00 ?? 6.8 02/26/2014 ?? 17:07:00 ?? 6.3 02/26/2014 ?? 11:49:00 ?? 6.0 02/26/2014 ?? 08:48:00 ?? 6.6 02/26/2014 ?? 03:47:00 ?? 6.6 02/25/2014 ?? 22:02:00 ?? 6.8 ?BLOOD GASES ?Venous Blood Gases ?Test: O2 Cont Pul Art ??pH Critical Result i ? Reference: ?[7.35-7.45] ? Units: Vol % O2 02/25/2014 ?? 15:40:00 ?? 7.8 02/25/2014 ?? 09:13:00 ?? 6.5 02/24/2014 ?? 21:23:00 ?? 8.1 02/24/2014 ?? 08:10:00 ?? 7.8 02/23/2014 ?? 19:15:00 ?7.19 ??Cf 02/23/2014 ?? 19:09:00 ?? 9.9 02/23/2014 ?? 14:07:00 ?? 6.7 02/23/2014 19:15:00 pH Critical Result: Interpretive Data This Critical result was obtained during concurrent analysis of another test which was ordered by a physician. ??This result was not specifically ordered and is reported at no charge to the patient; analysis performed at no charge. Current interpretive data was last revised on 2011. 02/23/2014 19:15:00 ??pH Critical Result: reviewed ? SELECTED ELECTROLYTES ?Test: Sodium ? Plasma Potassium ??Chloride ? Reference: [135-145] ??[3.3-4.9] ? [97-110] ? Units: mmol/L ? mmol/L ?mmol/L 03/02/2014 ?? 21:19:00 ?? 139 ?4.0 ? 104 03/01/2014 ?? 22:24:00 ?? 140 ?3.6 ? 105 02/28/2014 ?? 20:47:15 ?? 141 ?4.0 ? 103 02/27/2014 ?? 20:56:00 ?? 141 ?4.0 ? 103 02/26/2014 ?? 20:44:00 ?? 140 ?4.2 ? 106 02/25/2014 ?? 22:02:00 ?? 140 ?4.3 ? 107 02/24/2014 ?? 21:23:00 ?? 140 ?4.1 ? 106 02/23/2014 ?? 19:08:00 ?? 149 ??H ? 3.7 ? 114 ??H 02/23/2014 ?? 12:55:00 ?? 141 ?3.3 ? 106 ?Test: Total CO2 ??Anion Gap ? Reference: [22-32] ?[0-16] ? Units: mmol/L ? mmol/L 03/02/2014 ?? 21:19:00 ?? 26 ? 9 03/01/2014 ?? 22:24:00 ?? 27 ? 8 02/28/2014 ?? 20:47:15 ?? 31 ? 7 02/27/2014 ?? 20:56:00 ?? 31 ? 7 02/26/2014 ?? 20:44:00 ?? 27 ? 7 02/25/2014 ?? 22:02:00 ?? 26 ? 7 02/24/2014 ?? 21:23:00 ?? 26 ? 8 02/23/2014 ?? 19:08:00 ?? 23 ? 12 02/23/2014 ?? 12:55:00 ?? 21 ??L ?14 ? SELECTED ELECTROLYTES ? Whole Blood Electrolytes ?Test: Whole Blood Potassium ? Reference: [3.3-4.9] ? Units: mmol/L 02/28/2014 ?? 14:33:00 ?? 3.9 02/28/2014 ?? 08:38:00 ?? 4.0 02/27/2014 ?? 22:55:00 ?? 4.3 02/27/2014 ?? 16:26:00 ?? 3.6 02/27/2014 ?? 07:25:00 ?? 3.5 02/26/2014 ?? 17:07:00 ?? 3.8 02/26/2014 ?? 11:49:00 ?? 4.2 02/26/2014 ?? 08:48:00 ?? 3.7 02/25/2014 ?? 15:40:00 ?? 4.1 02/25/2014 ?? 09:13:00 ?? 3.8 02/25/2014 ?? 04:16:00 ?? 3.7 02/24/2014 ?? 21:23:00 ?? 4.0 02/24/2014 ?? 15:11:00 ?? 4.2 02/24/2014 ?? 11:37:00 ?? 4.3 02/24/2014 ?? 08:10:00 ?? 4.2 02/23/2014 ?? 23:59:00 ?? 4.1 02/23/2014 ?? 19:15:00 ?? 3.6 02/23/2014 ?? 12:55:00 ?? 3.4 ? STANDARD BLOOD CHEMISTRY ?Test: BUN ? Creatinine ?? Total Bilirubin ??Glucose ? Reference: [8-25] ??[0.60-1.10] ??[0.3-1.1] ?[70- 199] ? Units: mg/dL ?? mg/dL ?mg/dL ?mg/dL 03/02/2014 ?? 21:19:00 ?? 25 ?0.60 ?114 03/01/2014 ?? 22:24:00 ?? 28 ??H ?? 0.60 ?138 02/28/2014 ?? 20:47:15 ?? 28 ??H ?? 0.62 ?144 02/27/2014 ?? 20:56:00 ?? 22 ?0.57 ??L ? 114 02/26/2014 ?? 20:44:00 ?? 15 ?0.54 ??L ? 125 02/25/2014 ?? 22:02:00 ?? 10 ?0.55 ??L ? 189 02/24/2014 ?? 21:23:00 ?? 10 ?0.53 ??L ? 165 02/23/2014 ?? 19:08:00 ?? 19 ?0.68 ? 0.7 ?237 ??H 02/23/2014 ?? 12:55:00 ?? 23 ?0.72 ?356 ??H ?Test: Magnesium ??Total Calcium ??Plasma Phosphorus ? Reference: [1.4-2.5] ??[8.6-10.3] ? [2.3-4.3] ? Units: mg/dL ?mg/dL ?mg/dL 03/02/2014 ?? 21:19:00 ?8.8 03/01/2014 ?? 22:24:00 ?8.4 ??L 02/28/2014 ?? 20:47:15 ?? 2.3 ?8.0 ??L ? 2.6 02/27/2014 ?? 20:56:00 ?? 2.2 ?8.4 ??L ? 2.4 02/26/2014 ?? 20:44:00 ?? 2.1 ?8.4 ??L ? 2.7 02/25/2014 ?? 22:02:00 ?? 2.1 ?8.4 ??L ? 3.4 02/24/2014 ?? 21:23:00 ?? 2.0 ?8.7 02/24/2014 ?? 15:11:00 ?? 1.9 02/23/2014 ?? 19:08:00 ?8.4 ??L 02/23/2014 ?? 19:08:00 ?? 2.3 ? 3.1 02/23/2014 ?? 12:55:00 ?? 1.6 ?8.6 ?3.8 ? STANDARD BLOOD CHEMISTRY ?Test: Plasma Total Protein ??Albumin ? Reference: [6.5-8.5] ? [3.6-5.0] ? Units: g/dL ?g/dL 02/23/2014 ?? 19:08:00 ?? 4.6 ??L ?3.1 ??L ?LIPIDS ?Test: Total Cholesterol i ??HDL Cholesterol i ? Reference: [0-200] ?[40-199] ? Units: mg/dL ?mg/dL 02/23/2014 ?? 23:59:00 ?? 75 02/23/2014 ?? 19:08:00 ?18 ??L 02/23/2014 23:59:00 Total Cholesterol: Interpretive Data Desirable: ?<200 mg/dL Borderline high: ??200-239 mg/dL High: ? >240 mg/dL Literature Reference: National Cholesterol Education Program (NCEP) Expert Panel on Detection, Evaluation, and Treatment of High Blood Cholesterol in Adults (Adult Treatment Panel III). ??Circulation 2004; 110:227. Current interpretive data was last revised on 2005. 02/23/2014 19:08:00 HDL Cholesterol: Interpretive Data Less than 40 mg/dL - low; A major risk factor for heart disease. Greater than or equal to 60 mg/dL - High; ??considered protective of heart disease. Literature Reference: See Cholesterol Current interpretive data was last revised on 2008. ?Test: Triglycerides i ??LDL Chol (Calc) i ? Reference: [0-150] ?[0-129] ? Units: mg/dL ?mg/dL 02/23/2014 ?? 23:59:00 ?? 209 ??H ? 15 02/23/2014 23:59:00 Triglycerides: Interpretive Data Desirable: ? < 150 mg/dL Borderline High: ? 150 - 199 mg/dL High: ?> 200 mg/dL Literature Reference: See Cholesterol Current interpretive data was last revised on 07. ?LIPIDS 02/23/2014 23:59:00 LDL Chol (Calc): Interpretive Data Optimal: ? < 100 mg/dL Near Optimal: ?100 - 129 mg/dL Borderline High: ?? 130 - 159 mg/dL High: ?> 160 mg/dL Literature Reference: See Cholesterol Current interpretive data was last revised on 07. ?Test: non-HDL Cholesterol i ? Reference: ? Units: mg/dL 02/23/2014 ?? 19:08:00 ?? 57 02/23/2014 19:08:00 non-HDL Cholesterol: Interpretive Data When triglycerides are >200 mg/dL, non-HDL C is a secondary target of therapy, with a goal 30 mg/dL higher than the identified LDL-C goal. Reference: ??See Cholesterol Reference. Current interpretive data was last revised 2012. ?ENZYMES ?Test: Alkaline Phosphatase ??ALT ?AST ? Reference: [38-126] ?[7-53] ?? [11-47] ? Units: Units/L ? Units/L ??Units/L 02/23/2014 ?? 19:08:00 ?? 39 ?30 ? 34 ?BLOOD HORMONES ?Test: Whole Blood Ion Calcium ? Reference: [4.50-5.10] ? Units: mg/dL 02/24/2014 ?? 21:23:00 ?? 4.92 02/24/2014 ?? 15:11:00 ?? 5.20 ??H 02/24/2014 ?? 08:10:00 ?? 4.59 02/23/2014 ?? 19:15:00 ?? 4.88 ?METABOLITES ?Test: Lactate Whole Blood ? Reference: [0.7-2.1] ? Units: mmol/L 02/24/2014 ?? 21:23:00 ?? 2.6 ??H 02/24/2014 ?? 08:10:00 ?? 3.0 ??H 02/23/2014 ?? 23:59:00 ?? 4.2 ??C 02/23/2014 ?? 19:08:00 ?? 5.8 ??C ?URINALYSIS ?Macroscopic ?Test: Color ? Clarity ??Specific [place] ??pH ? Reference: [Yellow] ??[Clear] ??[1.003-1.030] ? [5.0-8.0] ? Units: 03/03/2014 ?? 08:37:00 ?? Deysi ? Clear ?1.028 ? 6.0 ?Test: Albumin ??Glucose ? Ketones ? Bilirubin ? Reference: [Trace] ??[Negative] ??[Negative] ??[Negative] ? Units: 03/03/2014 ?? 08:37:00 ?? 1+ ??* ?Negative ?Negative ?Negative ?Test: Blood ? Urobilinogen ??Nitrite ? Reference: [Negative] ??[0.0-2.0] ? [Negative] ? Units: ? mg/dL 03/03/2014 ?? 08:37:00 ?? Negative ?2.0 ? Negative ?Test: Leuk Esterase ? Reference: [Negative] ? Units: 03/03/2014 ?? 08:37:00 ?? Negative ?Microscopic ?Test: Epithl Squam ??Mucus Thrds ??RBC Ur ??WBC Ur ? Reference: ?[0-3] ?? [0-5] ? Units: /LPF ?/HPF ? /HPF ?/HPF 03/03/2014 ?? 08:37:00 ?? >20 ? Small ?0 ? 2 ?Test: Bacteria Ur ??Epithl Renl Ur ? Reference: [Trace] ?[0-0] ? Units: ?/HPF 03/03/2014 ?? 08:37:00 ?? Negative ? 0 ? COMPLETE BLOOD COUNT ?Test: WBC ?RBC ?Hgb ? Reference: [3.8-9.8] ??[3.90-5.00] ??[12.1-15.1] ? Units: K/cumm ? M/cumm ? g/dL 03/02/2014 ?? 21:19:00 ?? 12.8 ??H ?3.59 ??L ?10.8 ??L 03/01/2014 ?? 22:24:00 ?? 11.1 ??H ?3.32 ??L ?9.8 ??L 02/28/2014 ?? 20:47:15 ?? 11.6 ??H ?3.28 ??L ?9.5 ??L 02/27/2014 ?? 20:56:00 ?? 10.9 ??H ?3.17 ??L ?9.4 ??L 02/26/2014 ?? 20:44:00 ?? 13.4 ??H ?3.12 ??L ?9.3 ??L 02/26/2014 ?? 09:00:00 ?? 12.7 ??H ?2.77 ??L ?8.3 ??L 02/25/2014 ?? 22:02:00 ?? 12.7 ??H ?3.67 ??L ?10.9 ??L 02/25/2014 ?? 06:07:00 ?? 14.7 ??H ?2.94 ??L ?9.0 ??L 02/24/2014 ?? 21:23:00 ?? 14.6 ??H ?3.04 ??L ?9.2 ??L 02/24/2014 ?? 11:37:00 ?? 14.3 ??H ?3.38 ??L ?10.3 ??L 02/23/2014 ?? 23:59:00 ?? 12.0 ??H ?3.48 ??L ?10.1 ??L ? COMPLETE BLOOD COUNT ?Test: WBC ?RBC ?Hgb ? Reference: [3.8-9.8] ??[3.90-5.00] ??[12.1-15.1] ? Units: K/cumm ? M/cumm ? g/dL 02/23/2014 ?? 19:08:00 ?? 11.5 ??H ?3.25 ??L ?9.5 ??L 02/23/2014 ?? 15:18:00 ?? 20.1 ??H ?3.39 ??L ?10.4 ??L 02/23/2014 ?? 12:55:00 ?? 27.0 ??H ?3.26 ??L ?9.9 ??L ?Test: Hct ?Platelet Ct ??MCV ? Reference: [36.1-44.3] ??[140-440] ?[80.0-97.6] ? Units: % ?K/cumm ? fL 03/02/2014 ?? 21:19:00 ?? 32.4 ??L ?316 ?90.3 03/01/2014 ?? 22:24:00 ?? 29.7 ??L ?254 ?89.6 02/28/2014 ?? 20:47:15 ?? 29.4 ??L ?216 ??f ? 89.7 02/27/2014 ?? 20:56:00 ?? 28.3 ??L ?162 ??f ? 89.2 02/26/2014 ?? 20:44:00 ?? 27.6 ??L ?107 ??L ? 88.5 02/26/2014 ?? 09:00:00 ?? 24.6 ??L ?99 ??L ?89.1 02/25/2014 ?? 22:02:00 ?? 32.6 ??L ?92 ??L ?88.8 02/25/2014 ?? 06:07:00 ?? 25.4 ??L ?106 ??L ? 86.5 02/24/2014 ?? 21:23:00 ?? 26.6 ??L ?116 ??Lf ?87.6 02/24/2014 ?? 11:37:00 ?? 29.1 ??L ?72 ??L ?86.1 02/23/2014 ?? 23:59:00 ?? 30.6 ??L ?93 ??L ?88.1 02/23/2014 ?? 19:08:00 ?? 28.5 ??L ?83 ??Lf ? 87.7 02/23/2014 ?? 15:18:00 ?? 30.2 ??L ?202 ??f ? 89.0 02/23/2014 ?? 12:55:00 ?? 30.0 ??L ?258 ?91.9 02/28/2014 20:47:15 ??Platelet Ct: verified 02/27/2014 20:56:00 ??Platelet Ct: Reviewed 02/24/2014 21:23:00 ??Platelet Ct: verified 02/23/2014 19:08:00 ??Platelet Ct: No clot detected in sample. 02/23/2014 15:18:00 ??Platelet Ct: No clot detected in sample. ?Test: MCH ?MCHC ? RDW ? Reference: [26.7-33.7] ??[32.7-35.5] ??[11.8-14.6] ? Units: pg ? g/dL ? % 03/02/2014 ?? 21:19:00 ?? 30.1 ? 33.4 ? 14.4 03/01/2014 ?? 22:24:00 ?? 29.4 ? 32.8 ? 14.7 ??H 02/28/2014 ?? 20:47:15 ?? 29.0 ? 32.4 ??L ?14.9 ??H 02/27/2014 ?? 20:56:00 ?? 29.8 ? 33.4 ? 14.5 02/26/2014 ?? 20:44:00 ?? 29.8 ? 33.6 ? 14.6 02/26/2014 ?? 09:00:00 ?? 29.8 ? 33.5 ? 14.7 ??H 02/25/2014 ?? 22:02:00 ?? 29.6 ? 33.4 ? 15.0 ??H 02/25/2014 ?? 06:07:00 ?? 30.6 ? 35.3 ? 15.0 ??H 02/24/2014 ?? 21:23:00 ?? 30.2 ? 34.4 ? 14.8 ??H 02/24/2014 ?? 11:37:00 ?? 30.3 ? 35.2 ? 15.2 ??H 02/23/2014 ?? 23:59:00 ?? 29.0 ? 32.9 ? 14.8 ??H 02/23/2014 ?? 19:08:00 ?? 29.3 ? 33.4 ? 14.4 02/23/2014 ?? 15:18:00 ?? 30.6 ? 34.4 ? 13.7 02/23/2014 ?? 12:55:00 ?? 30.3 ? 33.0 ? 13.3 ? COMPLETE BLOOD COUNT ?Test: MPV ? Reference: [6.8-10.4] ? Units: fL 03/02/2014 ?? 21:19:00 ?? 7.8 03/01/2014 ?? 22:24:00 ?? 7.9 02/28/2014 ?? 20:47:15 ?? 8.1 02/27/2014 ?? 20:56:00 ?? 8.3 02/26/2014 ?? 20:44:00 ?? 8.7 02/26/2014 ?? 09:00:00 ?? 8.4 02/25/2014 ?? 22:02:00 ?? 8.8 02/25/2014 ?? 06:07:00 ?? 8.5 02/24/2014 ?? 21:23:00 ?? 8.4 02/24/2014 ?? 11:37:00 ?? 8.3 02/23/2014 ?? 23:59:00 ?? 8.4 02/23/2014 ?? 19:08:00 ?? 7.5 02/23/2014 ?? 15:18:00 ?? 7.9 02/23/2014 ?? 12:55:00 ?? 8.4 ? AUTOMATED WHITE CELL DIFFERENTIAL ?Test: Neut Pct Auto ??Lymph Pct Auto ??[place] Pct Auto ? Reference: [38.7-74.5] ?[20.0-54.3] ? [4.3-13.5] ? Units: % ?% ? % 02/23/2014 ?? 15:18:00 ?? 84.4 ??H ?7.5 ??L ?7.6 ?Test: Eos Pct Auto ??Baso Pct Auto ??Neut Abs Auto ? Reference: [0.0-6.0] ? [0.0-3.0] ?[1.8-6.6] ? Units: % ? % ?K/cumm 02/23/2014 ?? 15:18:00 ?? 0.5 ? 0.0 ?16.9 ??H ?Test: Lymph Abs Auto ??[place]hin Abs Auto ??Eos Abs Auto ? Reference: [1.2-3.3] ? [0.2-1.2] ?[0.0-0.5] ? Units: K/cumm ?K/cumm ? K/cumm 02/23/2014 ?? 15:18:00 ?? 1.5 ? 1.5 ??H ? 0.1 ?Test: Baso Abs Auto ? Reference: [0.0-0.2] ? Units: K/cumm 02/23/2014 ?? 15:18:00 ?? 0.0 ? HEMOSTASIS AND THROMBOSIS ?Routine Coagulation Studies ?Test: PT ?INR i ?aPTT ? Reference: [9.0-12.0] ??[0.90-1.20] ??[25.0-37.0] ? Units: sec ?sec 02/28/2014 ?? 20:47:11 ?75.9 ??H 02/28/2014 ?? 14:33:00 ?67.0 ??H 02/28/2014 ?? 06:21:00 ?54.1 ??H ? HEMOSTASIS AND THROMBOSIS ?Routine Coagulation Studies ?Test: PT ?INR i ?aPTT ? Reference: [9.0-12.0] ??[0.90-1.20] ??[25.0-37.0] ? Units: sec ?sec 02/27/2014 ?? 22:55:00 ?49.3 ??H 02/27/2014 ?? 16:28:00 ?37.5 ??H 02/25/2014 ?? 22:02:00 ?? 13.3 ??H ? 1.25 ??H ?28.2 02/24/2014 ?? 21:23:00 ?? 11.8 ?1.12 ? 26.1 02/24/2014 ?? 11:37:00 ?? 12.1 ??H ? 1.15 ? 25.7 02/23/2014 ?? 19:08:00 ?? 12.9 ??H ? 1.22 ??H ?43.3 ??H 02/23/2014 ?? 12:55:00 ?? 13.4 ??H ? 1.26 ??H ?> 150.0 ??Cf 02/23/2014 12:55:00 INR: Interpretive Data Inpatient therapeutic ranges* Atrial fibrillation ?2.0-3.0 INR Venous thrombo-embolism ?2.0-3.0 INR Bioprosthetic heart valve ?* Mechanical heart valve, bileaflet or tilting disk,aortic position ? 2.0-3.0 INR All other,or bileaflet or tilting disk, in mitral position ? 2.5-3.5 INR *See the pharmacy resource directory (PHRED) for an updated copy of the Tool Book at [email or web address] Current Interpretive Data was last revised 2011. 02/23/2014 12:55:00 aPTT: Interpretive Data Therapeutic heparin range:60.0 - 94.0 sec based on correlation with therapeutic heparin activity range of 0.3 -0.7 Units/mL. Current interpretive data was last revised on 2011. 02/23/2014 12:55:00 ??aPTT: Verified. ? TRANSFUSION MEDICINE ?Test: Indirect Twyla. ??ABO/Rh Pat Interp ? Reference: ? Units: 02/26/2014 ?? 13:47:00 ?? Negative ?O Positive 02/23/2014 ?? 06:50:00 ?? Negative ?O Positive ?POINT OF CARE TESTS ? Chemistry ?Test: pH Art gPOC ??pCO2 Art gPOC ??pO2 Art gPOC ? Reference: [7.35-7.45] ??[35-45] ?[80-105] ? Units: ?mmHg ? mmHg 02/23/2014 ?? 18:28:00 ?? 7.26 ??L ?49 ??H ?53 ??L 02/23/2014 ?? 17:19:00 ?? 7.16 ??C ?38 ? 110 ??H ?POINT OF CARE TESTS ? Chemistry ?Test: pH Art gPOC ??pCO2 Art gPOC ??pO2 Art gPOC ? Reference: [7.35-7.45] ??[35-45] ?[80-105] ? Units: ?mmHg ? mmHg 02/23/2014 ?? 11:27:00 ?? 7.27 ??L ?44 ? 240 ??H 02/23/2014 ?? 11:00:00 ?? 7.30 ??L ?34 ??L ?84 02/23/2014 ?? 10:41:00 ?? 7.37 ? 39 ? 84 02/23/2014 ?? 09:13:00 ?? 7.31 ??L ?46 ??H ?121 ??H ?Test: Bicarb Art gPOC ??TCO2 Art gPOC ??O2 Sat Art gPOC ? Reference: [20-30] ?[22-32] ?[95-98] ? Units: mmol/L ? mmol/L ? % 02/23/2014 ?? 18:28:00 ?? 22 ? 24 ? 81 ??L 02/23/2014 ?? 17:19:00 ?? 14 ??L ?15 ??L ?97 02/23/2014 ?? 11:27:00 ?? 20 ? 22 ? 100 ??H 02/23/2014 ?? 11:00:00 ?? 17 ??L ?18 ??L ?95 02/23/2014 ?? 10:41:00 ?? 23 ? 24 ? 96 02/23/2014 ?? 09:13:00 ?? 23 ? 25 ? 98 ?Test: Base Ex Art gPOC ??Sodium gPOC ??Potass gPOC ? Reference: ? [135-145] ?[3.3-4.9] ? Units: mmol/L ?mmol/L ? mmol/L 02/23/2014 ?? 18:28:00 ?? -5.0 ?146 ??H ? 4.3 02/23/2014 ?? 17:19:00 ?? -14.1 ? 146 ??H ? 3.1 ??L 02/23/2014 ?? 11:27:00 ?? -6.4 ?138 ?3.9 02/23/2014 ?? 11:00:00 ?? -8.9 ?139 ?5.2 ??H 02/23/2014 ?? 10:41:00 ?? -2.5 ?138 ?5.6 ??H 02/23/2014 ?? 09:13:00 ?? -3.2 ?138 ?4.9 ?Test: Ca Ion gPOC ??Gluc gPOC ??HCT gPOC ? Reference: [4.50-5.10] ??[70-199] ?? [36.1-44.3] ? Units: mg/dL ?mg/dL ?% 02/23/2014 ?? 18:28:00 ?? 4.89 ? 245 ??H ? 30.0 ??L 02/23/2014 ?? 17:19:00 ?? 3.65 ??L ?183 ?25.0 ??L 02/23/2014 ?? 11:27:00 ?? 5.25 ??H ?346 ??H ? 31.0 ??L 02/23/2014 ?? 11:00:00 ?? 9.50 ??C ?182 ?33.0 ??L 02/23/2014 ?? 10:41:00 ?? 4.73 ? 161 ?34.0 ??L 02/23/2014 ?? 09:13:00 ?? 4.81 ? 121 ?38.0 ?Test: Glucose POC ? Reference: [70-199] ? Units: mg/dL 03/02/2014 ?? 20:38:00 ?? 117 02/28/2014 ?? 07:48:00 ?? 127 02/27/2014 ?? 20:54:00 ?? 110 02/27/2014 ?? 12:00:00 ?? 121 02/27/2014 ?? 07:28:00 ?? 129 02/27/2014 ?? 03:53:00 ?? 112 02/27/2014 ?? 00:07:00 ?? 114 02/26/2014 ?? 19:38:00 ?? 129 02/26/2014 ?? 16:33:00 ?? 143 02/26/2014 ?? 11:45:00 ?? 147 02/26/2014 ?? 07:32:00 ?? 153 02/26/2014 ?? 03:46:00 ?? 168 02/25/2014 ?? 23:44:00 ?? 175 02/25/2014 ?? 19:41:00 ?? 174 ?POINT OF CARE TESTS ? Chemistry ?Test: Glucose POC ? Reference: [70-199] ? Units: mg/dL 02/25/2014 ?? 15:32:00 ?? 147 02/25/2014 ?? 14:11:00 ?? 160 02/25/2014 ?? 11:42:00 ?? 108 02/25/2014 ?? 10:02:00 ?? 107 02/25/2014 ?? 08:56:00 ?? 97 02/25/2014 ?? 07:35:00 ?? 106 02/25/2014 ?? 06:05:00 ?? 136 02/25/2014 ?? 04:14:00 ?? 130 02/25/2014 ?? 01:22:00 ?? 130 02/25/2014 ?? 00:08:00 ?? 131 02/24/2014 ?? 23:13:00 ?? 147 02/24/2014 ?? 22:38:00 ?? 145 02/24/2014 ?? 21:08:00 ?? 175 02/24/2014 ?? 18:17:00 ?? 138 02/24/2014 ?? 16:51:00 ?? 126 02/24/2014 ?? 14:17:00 ?? 123 02/24/2014 ?? 11:35:00 ?? 146 02/24/2014 ?? 10:18:00 ?? 153 02/24/2014 ?? 08:03:00 ?? 135 02/24/2014 ?? 06:00:00 ?? 130 02/24/2014 ?? 03:53:00 ?? 114 02/24/2014 ?? 02:03:00 ?? 152 02/23/2014 ?? 23:57:00 ?? 171 02/23/2014 ?? 22:13:00 ?? 190 02/23/2014 ?? 21:12:00 ?? 196 02/23/2014 ?? 20:27:00 ?? 207 ??H 02/23/2014 ?? 19:12:00 ?? 238 ??H 02/23/2014 ?? 18:52:00 ?? 247 ??H 02/23/2014 ?? 16:38:00 ?? 269 ??H 02/23/2014 ?? 15:02:00 ?? 339 ??H 02/23/2014 ?? 14:04:00 ?? 345 ??H 02/23/2014 ?? 12:55:00 ?? 347 ??H ?Hematology ?Test: HCT cPOC ? Platelet cPOC ? Reference: [36.1-44.3] ??[140-440] ? Units: % ?K/cumm 02/23/2014 ?? 18:27:00 ?? 28.8 ??L ?100 ??L 02/23/2014 ?? 17:35:00 ?? 29.4 ??L ?132 ??L 02/23/2014 ?? 10:39:00 ?? 34.8 ??L ?207 ?Coagulation ?Test: Base ACT hPOC ??HDR Archer hPOC ? Reference: [112-174] ?[60-195] ? Units: sec 02/23/2014 ?? 09:04:00 ?? 130 ?69 ?Test: Proj Hep Conc hPOC ??Heparin hPOC ??ACT hPOC ? Reference: ? [112-174] ? Units: units/mL ?units/mL ?sec 02/23/2014 ?? 12:07:00 ? 202 ??H ?POINT OF CARE TESTS ?Coagulation ?Test: Proj Hep Conc hPOC ??Heparin hPOC ??ACT hPOC ? Reference: ? [112-174] ? Units: units/mL ?units/mL ?sec 02/23/2014 ?? 11:45:00 ? >1.1 ?206 ??H 02/23/2014 ?? 11:22:00 ? 0.8 ? 167 02/23/2014 ?? 10:52:00 ? >4.7 ?489 ??H 02/23/2014 ?? 10:30:00 ? 0.0 ? 108 ??L 02/23/2014 ?? 10:01:00 ? <2.8 ?359 ??H 02/23/2014 ?? 09:49:00 ? <2.8 ?328 ??H 02/23/2014 ?? 09:36:00 ? <2.8 ?352 ??H 02/23/2014 ?? 09:04:00 ?? 6.1 ?Test: aPTT ePOC ?INR ePOC ?? PT ePOC ? Reference: [29.3-45.4] ??[1.0-1.3] ??[12.1-17.0] ? Units: sec ? sec 02/23/2014 ?? 17:31:00 ?2.0 ??H ? 26.6 ??H 02/23/2014 ?? 17:27:00 ?? 72.4 ??H 02/23/2014 ?? 10:39:00 ?1.5 ??H ? 19.8 ??H 02/23/2014 ?? 10:37:00 ?? 26.6 ??L ? SUMMARY OF CRITICAL CALLBACKS ?Test: Called By ??Called/Read Back ??Credentials 02/23/2014 ??23:59:00 ??See Below ??See Below ? RN 02/23/2014 ??19:15:00 ??See Below ??See Below ? RN 02/23/2014 ??19:08:00 ??See Below ??See Below ? RN 02/23/2014 ??23:59:00 ??Called By ? lrw 02/23/2014 ??19:15:00 ??Called By ? llr 02/23/2014 ??19:08:00 ??Called By ? llr 02/23/2014 ??23:59:00 ??Called/Read Back ? mairan kevin 02/23/2014 ??19:15:00 ??Called/Read Back ? Marian Letart 02/23/2014 ??19:08:00 ??Called/Read Back ? Marian Kevin ?Test: Date Notified ??TestName ?? Time Notified 02/23/2014 ??23:59:00 ??02/24/2014 ? See Below ??0020 02/23/2014 ??19:15:00 ??02/23/2014 ? See Below ??1934 02/23/2014 ??19:08:00 ??02/23/2014 ? See Below ??1934 02/23/2014 ??23:59:00 ??TestName ? lactate wb ? SUMMARY OF CRITICAL CALLBACKS 02/23/2014 ??19:15:00 ??TestName ? pH ICA WB 02/23/2014 ??19:08:00 ??TestName ? Lactate Whole Blood ? MICROBIOLOGY - ALL TESTS ? PROCEDURE: Aerobic Culture, Respiratory and Gram Stain ?SOURCE: Tracheal Aspirate COLLECTED: 02/25/14 ??2201 ? BODY SITE: STARTED: 02/25/14 ??2237 FREE TEXT SOURCE: DIRECT SPECIMEN EXAMINATION Stain REPORTED: 02/26/14 0105 Rare polymorphonuclear leukocytes seen. Few Yeast Few squamous epithelial cells seen. FINAL REPORT REPORTED: 02/28/14 0948 Insignificant growth based on current clinical standards. ? PROCEDURE: Aerobic, Anaerobic and Mycology Culture, Blood ?SOURCE: Blood COLLECTED: 02/25/14 ??2202 ? BODY SITE: Forearm, right STARTED: 02/25/14 ??2317 FREE TEXT SOURCE: FINAL REPORT REPORTED: 03/03/14434 No growth * * * ??Interpretive Results ??* * * (1)Blood cultures are incubated for five days on a continuously monitored blood culture system. ??The first report of a negative culture is issued within 24 hours of receipt of the specimen in the laboratory. ??Positive culture results are reported as soon as they are detected. ??For blood cultures with gram-positive cocci, a rapid molecular test for organism identification may be performed using the [email or web address] Nanosphere Gram Positive Blood Culture Assay. ??The Nanosphere assay detects microbial DNA in positive blood culture broth via hybridization of target DNA to capture oligonucleotides on a microarray. ??This assay has been cleared by the [place] Food and Drug Administration and its performance characteristics have been verified by the [facility].Current Interpretive Data was last revised on 2014. ? MICROBIOLOGY - ALL TESTS ? PROCEDURE: Aerobic, Anaerobic and Mycology Culture, Blood ?SOURCE: Blood COLLECTED: 02/25/14 ??220 ? BODY SITE: Forearm, right STARTED: 02/25/14 ??2317 FREE TEXT SOURCE: ? PROCEDURE: Aerobic, Anaerobic and Mycology Culture, Blood ?SOURCE: Blood COLLECTED: 02/25/14 ??2202 ? BODY SITE: Forearm, left STARTED: 02/25/14 ??2318 FREE TEXT SOURCE: FINAL REPORT REPORTED: 03/03/14434 No growth * * * ??Interpretive Results ??* * * (1)Blood cultures are incubated for five days on a continuously monitored blood culture system. ??The first report of a negative culture is issued within 24 hours of receipt of the specimen in the laboratory. ??Positive culture results are reported as soon as they are detected. ??For blood cultures with gram-positive cocci, a rapid molecular test for organism identification may be performed using the [email or web address] Nanosphere Gram Positive Blood Culture Assay. ??The Nanosphere assay detects microbial DNA in positive blood culture broth via hybridization of target DNA to capture oligonucleotides on a microarray. ??This assay has been cleared by the [place] Food and Drug Administration and its performance characteristics have been verified by the [facility].Current Interpretive Data was last revised on 2014. ? PROCEDURE: MRSA Surveillance Culture ?SOURCE: Nasal COLLECTED: 03/01/14 ??1424 ? BODY SITE: STARTED: 03/01/14 ??1552 FREE TEXT SOURCE: FINAL REPORT REPORTED: 03/03/14 0734 Negative * * * ??Interpretive Results ??* * * (1)This test is for Infection Prevention surveillance; no charge to the patient. ? MICROBIOLOGY - ALL TESTS ? PROCEDURE: MRSA Surveillance Culture ?SOURCE: Nasal COLLECTED: 03/01/14 ??1424 ? BODY SITE: STARTED: 03/01/14 ??1552 FREE TEXT SOURCE: ? PROCEDURE: MRSA Surveillance Culture ?SOURCE: Nasal COLLECTED: 02/23/14 ??1909 ? BODY SITE: STARTED: 02/24/14 ??0139 FREE TEXT SOURCE: FINAL REPORT REPORTED: 02/25/14 0729 Negative * * * ??Interpretive Results ??* * * (1)This test is for Infection Prevention surveillance; no charge to the patient. ? PROCEDURE: Urine Culture ?SOURCE: Urine COLLECTED: 03/03/14 ??0837 ? BODY SITE: STARTED: 03/03/14 ??1125 FREE TEXT SOURCE: FINAL REPORT REPORTED: 03/04/14 1433 No growth ? PROCEDURE: Urine Culture ?SOURCE: Urine, catheterized COLLECTED: 02/25/14 ??2202 ? BODY SITE: STARTED: 02/25/14 ??2237 FREE TEXT SOURCE: FINAL REPORT REPORTED: 02/27/14 1903 Greater than or equal to 5,000 colonies/ml of Yeast ? MICROBIOLOGY - ALL TESTS ? PROCEDURE: Urine Culture ?SOURCE: Urine COLLECTED: 02/23/14 ??1238 ? BODY SITE: STARTED: 02/23/14 ??1238 FREE TEXT SOURCE: FINAL REPORT REPORTED: 02/24/14 1532 No growth ? MICROBIOLOGY - BLOOD/STERILE FLUID ? PROCEDURE: Aerobic, Anaerobic and Mycology Culture, Blood ?SOURCE: Blood COLLECTED: 02/25/14 ??2202 ? BODY SITE: Forearm, right STARTED: 02/25/14 ??2317 FREE TEXT SOURCE: FINAL REPORT REPORTED: 03/03/14434 No growth * * * ??Interpretive Results ??* * * (1)Blood cultures are incubated for five days on a continuously monitored blood culture system. ??The first report of a negative culture is issued within 24 hours of receipt of the specimen in the laboratory. ??Positive culture results are reported as soon as they are detected. ??For blood cultures with gram-positive cocci, a rapid molecular test for organism identification may be performed using the [email or web address] Nanosphere Gram Positive Blood Culture Assay. ??The Nanosphere assay detects microbial DNA in positive blood culture broth via hybridization of target DNA to capture oligonucleotides on a microarray. ??This assay has been cleared by the [place] Food and Drug Administration and its performance characteristics have been verified by the [facility].Current Interpretive Data was last revised on 2014. ? MICROBIOLOGY - BLOOD/STERILE FLUID ? PROCEDURE: Aerobic, Anaerobic and Mycology Culture, Blood ?SOURCE: Blood COLLECTED: 02/25/14 ??2201 ? BODY SITE: Forearm, left STARTED: 02/25/14 ??2318 FREE TEXT SOURCE: FINAL REPORT REPORTED: 03/03/14434 No growth * * * ??Interpretive Results ??* * * (1)Blood cultures are incubated for five days on a continuously monitored blood culture system. ??The first report of a negative culture is issued within 24 hours of receipt of the specimen in the laboratory. ??Positive culture results are reported as soon as they are detected. ??For blood cultures with gram-positive cocci, a rapid molecular test for organism identification may be performed using the [employer] Nanosphere Gram Positive Blood Culture Assay. ??The Nanosphere assay detects microbial DNA in positive blood culture broth via hybridization of target DNA to capture oligonucleotides on a microarray. ??This assay has been cleared by the [place] Food and Drug Administration and its performance characteristics have been verified by the [facility].Current Interpretive Data was last revised on 2014. ? MICROBIOLOGY - MISCELLANEOUS ? PROCEDURE: MRSA Surveillance Culture ?SOURCE: Nasal COLLECTED: 03/01/14 ??1424 ? BODY SITE: STARTED: 03/01/14 ??1552 FREE TEXT SOURCE: FINAL REPORT REPORTED: 03/03/14 0734 Negative * * * ??Interpretive Results ??* * * (1)This test is for Infection Prevention surveillance; no charge to the patient. ? MICROBIOLOGY - MISCELLANEOUS ? PROCEDURE: MRSA Surveillance Culture ?SOURCE: Nasal COLLECTED: 02/23/14 ??1909 ? BODY SITE: STARTED: 02/24/14 ??0139 FREE TEXT SOURCE: FINAL REPORT REPORTED: 02/25/14 0729 Negative * * * ??Interpretive Results ??* * * (1)This test is for Infection Prevention surveillance; no charge to the patient. ? MICROBIOLOGY - RESPIRATORY ? PROCEDURE: Aerobic Culture, Respiratory and Gram Stain ?SOURCE: Tracheal Aspirate COLLECTED: 02/25/14 ??2202 ? BODY SITE: STARTED: 02/25/14 ??2237 FREE TEXT SOURCE: DIRECT SPECIMEN EXAMINATION Stain REPORTED: 02/26/14 0105 Rare polymorphonuclear leukocytes seen. Few Yeast Few squamous epithelial cells seen. FINAL REPORT REPORTED: 02/28/14 0948 Insignificant growth based on current clinical standards. ? MICROBIOLOGY - URINE ? PROCEDURE: Urine Culture ?SOURCE: Urine COLLECTED: 03/03/14 ??0837 ? BODY SITE: STARTED: 03/03/14 ??1125 FREE TEXT SOURCE: FINAL REPORT REPORTED: 03/04/14 1433 No growth ? PROCEDURE: Urine Culture ?SOURCE: Urine, catheterized COLLECTED: 02/25/14 ??2202 ? BODY SITE: STARTED: 02/25/14 ??2237 FREE TEXT SOURCE: FINAL REPORT REPORTED: 02/27/14 1903 Greater than or equal to 5,000 colonies/ml of Yeast ? PROCEDURE: Urine Culture ?SOURCE: Urine COLLECTED: 02/23/14 ??1238 ? BODY SITE: STARTED: 02/23/14 ??1238 FREE TEXT SOURCE: FINAL REPORT REPORTED: 02/24/14 1532 No growth ? CANCELLED TESTS Date ?Time ?Test ?Cancel Reason 02/23/2014 ??13:30:00 ??CBC Express 02/23/2014 ??13:35:00 ??Basic Met Plas 02/23/2014 ??13:35:00 ??CBC Express 02/23/2014 ??13:35:00 ??Magnesium 02/23/2014 ??13:35:00 ??Phos Plas 02/26/2014 ??20:31:00 ??Bld Gas Art 02/27/2014 ??09:27:00 ??CBC Express ? Lab Operations Cancel 02/27/2014 ??21:00:00 ??aPTT ?Lab Operations Cancel 03/03/2014 ??21:00:00 ??Basic Met Plas 03/03/2014 ??21:00:00 ??CBC us Historical Provider MD LAB BLOOD ORDERABLES Jennifer l Result HISTORICAL RESULTS * All Microbiology Report Section (03/03/2014 12:00 AM CDT) 03/03/2014 Narrative HISTORICAL RESULTS - 03/04/2014 3:41 PM CDT ? [facility] ?[facility] [address] ?[place] [address] ? Patient Name: ??TRESSA MYERS ? Med Rec Number: [id number] ? Fin Number: ?[id number] ? Date: ?1955 ? Sex/Age: ? Female 59 years ? Admit Date: ?02/23/2014 ? Discharge Date: 03/03/2014 ? Doctor: ?Doyle , Justino R ? Facility: ?[facility] ? Location: ?OTHER ?* Abnormal ??A Alert ??f Footnote ??^ Corrected ??L Low ??H High ?i Interp Data ??@ Ref Lab ? Chart Type:Cumulative ?* * * * MICROBIOLOGY - URINE * * * * ?PROCEDURE: Urine Culture ? SOURCE: Urine ? COLLECTED: 03/03/14 ??0837 ?BODY SITE: ? STARTED: 03/03/14 ??1125 ? FREE TEXT SOURCE: ? FINAL REPORT ? REPORTED: 03/04/14 1433 ? No growth Historical Provider MD LAB MICROBIOLOGY - GENERA L ORDERABLES Final Result Performing Organization Address [facility] de Phone Number HISTORICAL RESULTS * Plasma basic metabolic panel (03/02/2014 9:19 PM CDT) Pathologist [facility] Sodium 139 135 - 145 mmol/L HISTORICAL RESULTS K, pl 4.0 3.3 - 4.9 mmol/L HISTORICAL RESULTS Chloride 104 97 - 110 mmol/L HISTORICAL RESULTS CO2 26 22 - 32 mmol/L HISTORICAL RESULTS A. gap 9 0 - 16 mmol/L HISTORICAL RESULTS Glucose 114 70 - 199 mg/dl HISTORICAL RESULTS BUN 25 8 - 25 mg/dl HISTORICAL RESULTS Creatinine 0.60 0.60 - 1.10 mg/dl HISTORICAL RESULTS Calcium 8.8 8.6 - 10.3 mg/dl HISTORICAL RESULTS Plasma 03/02/2014 9:19 PM CDT Jessica Bowman FILTER PRESS PUMPER LAB BLOOD ORDERABLES Final Result Performing Organization Address [facility] de Phone Number HISTORICAL RESULTS * (ABNORMAL) Blood cell count [CBC] express (03/02/2014 9:19 PM CDT) WBC 12.8(H) 3.8 - 9.8 K/cumm HISTORICAL RESULTS RBC 3.59(L) 3.90 - 5.00 M/cumm HISTORICAL RESULTS Hgb 10.8(L) 12.1 - 15.1 g/dl HISTORICAL RESULTS Hct 32.4(L) 36.1 - 44.3 % HISTORICAL RESULTS MCV 90.3 80.0 - 97.6 fl HISTORICAL RESULTS MCH 30.1 26.7 - 33.7 pg HISTORICAL RESULTS MCHC 33.4 32.7 - 35.5 g/dl HISTORICAL RESULTS Rdw 14.4 11.8 - 14.6 % HISTORICAL RESULTS Platelets 316 140 - 440 K/cumm HISTORICAL RESULTS MPV 7.8 6.8 - 10.4 fl HISTORICAL RESULTS Blood specimen (specimen) 03/02/2014 9:19 PM CDT us Jessica Bowman NP LAB BLOOD ORDERABLES Final Result Performing Organization Address [facility] Co de Phone Number HISTORICAL RESULTS * Blood glucose, POC (03/02/2014 8:38 PM CDT) [facility] Glucose, POC, bld 117 70 - 199 mg/dl HISTORICAL RESULTS Blood specimen (specimen) 03/02/2014 8:38 PM CDT us Justino Doyle MD LAB BLOOD ORDERABLES Final Resul t Performing Organization Address [facility] Co de Phone Number HISTORICAL RESULTS * XR Chest Pa Lateral 2 Views (03/02/2014 7:01 PM CDT) Anatomical Region Laterality Modality Body, Chest N/A Radiographic Piedad ging 03/02/2014 7:01 PM CDT Narrative 03/03/2014 9:43 AM CDT HIRA VALENTINO M.D. FINAL REPORT ACC# ??Date Time ??Exam [id number] Mar 02, 2014 19:01:00 [id number] Chest 2 views Front&Lat EXAMINATION: ?Two view chest radiograph IMPRESSION: ?? Posteroanterior and lateral views: Comparison is made to radiograph of suff2013 at 9:11 p.m. The left thoracostomy tube has been removed. The left pleural effusion is slightly larger. There is elevation left hemidiaphragm with gaseous distention of the gastric fundus projecting in the thorax due to the left lower lobe collapse. Very mild interstitial pulmonary edema has developed. No pneumothorax. Heart size is stable Requested By: JESSICA BOWMAN Dictated By: ?? HIRA VALENTINO M.D. ??on Feb ??2013 ??9:43A This document has been electronically signed by: HIRA VALENTINO M.D. on Feb ??2013 ??9:43A Procedure Note Provider, Homero, - 02/01/2017 HIRA VALENTINO M.D. FINAL REPORT ACC# Date Time Exam [id number] Mar 02, 2014 19:01:00 [id number] Chest 2 views Front&Lat EXAMINATION: Two view chest radiograph IMPRESSION: Posteroanterior and lateral views: Comparison is made to radiograph of suffice 2013 at 9:11 p.m. The left thoracostomy tube has been removed. The left pleural effusion is slightly larger. There is elevation left hemidiaphragm with gaseous distention of the gastric fundus projecting in the thorax due to the left lower lobe collapse. Very mild interstitial pulmonary edema has developed. No pneumothorax. Heart size is stable Requested By: JESSICA BOWMAN Dictated By: HIRA VALENTINO M.D. on Mar 03 2014 9:43A This document has been electronically signed by: HIRA VALENTINO M.D. on Mar 03 2014 9:43A us Historical Provider MD GROVES XR PROCEDURES Final R esult * (ABNORMAL) Plasma basic metabolic panel (03/01/2014 10:24 PM CDT) Sodium 140 135 - 145 mmol/L HISTORICAL RESULTS K, pl 3.6 3.3 - 4.9 mmol/L HISTORICAL RESULTS Chloride 105 97 - 110 mmol/L HISTORICAL RESULTS CO2 27 22 - 32 mmol/L HISTORICAL RESULTS A. gap 8 0 - 16 mmol/L HISTORICAL RESULTS Glucose 138 70 - 199 mg/dl HISTORICAL RESULTS BUN 28(H) 8 - 25 mg/dl HISTORICAL RESULTS Creatinine 0.60 0.60 - 1.10 mg/dl HISTORICAL RESULTS Calcium 8.4(L) 8.6 - 10.3 mg/dl HISTORICAL RESULTS Plasma 03/01/2014 10:2 4 PM CDT Juan Berrios FILTER PRESS PUMPER LAB BLOOD ORDERABLES Final Result Performing Organization Address City/[facility] Co de Phone Number HISTORICAL RESULTS * (ABNORMAL) Blood cell count [CBC] express (03/01/2014 10:24 PM CDT) WBC 11.1(H) 3.8 - 9.8 K/cumm HISTORICAL RESULTS RBC 3.32(L) 3.90 - 5.00 M/cumm HISTORICAL RESULTS Hgb 9.8(L) 12.1 - 15.1 g/dl HISTORICAL RESULTS Hct 29.7(L) 36.1 - 44.3 % HISTORICAL RESULTS MCV 89.6 80.0 - 97.6 fl HISTORICAL RESULTS MCH 29.4 26.7 - 33.7 pg HISTORICAL RESULTS MCHC 32.8 32.7 - 35.5 g/dl HISTORICAL RESULTS Rdw 14.7(H) 11.8 - 14.6 % HISTORICAL RESULTS Platelets 254 140 - 440 K/cumm HISTORICAL RESULTS MPV 7.9 6.8 - 10.4 fl HISTORICAL RESULTS Blood specimen (specimen) 03/01/2014 10:24 PM CDT Juan Berrios NP LAB BLOOD ORDERABLES Final Result Performing Organization Address [place]/[facility] de Phone Number HISTORICAL RESULTS * Methicillin-resistant Staphylococcus aureus (MRSA) surveillance culture (03/01/2014 2:24 PM CDT) Nasal (Unknown) 03/01/2014 2 :24 PM CDT 03/01/2014 3:52 PM CDT Impressions HISTORICAL RESULTS - 03/03/2014 7:34 AM CDT This test is for Infection Prevention surveillance; no charge to the patient. Narrative HISTORICAL RESULTS - 03/03/2014 7:34 AM CDT Negative Historical Provider MD LAB MICROBIOLOGY - GENERA L ORDERABLES Final Result HISTORICAL RESULTS * All Microbiology Report Section (03/01/2014 12:00 AM CDT) 03/01/2014 Narrative HISTORICAL RESULTS - 03/04/2014 1:16 PM CDT ? [facility] ?[facility] [address] ?[place], [place] [address] ? Patient Name: ??TRESSA MYERS ? Med Rec Number: [id number] ? Fin Number: ?[id number] ? Date: ?1955 ? Sex/Age: ? Female 59 years ? Admit Date: ?02/23/2014 ? Discharge Date: 03/03/2014 ? Doctor: ?Justino Doyle ? Facility: ?[facility] ? Location: ?OTHER ?* Abnormal ??A Alert ??f Footnote ??^ Corrected ??L Low ??H High ?i Interp Data ??@ Ref Lab ? Chart Type:Cumulative ?* * * * MICROBIOLOGY - MISCELLANEOUS * * * * ?PROCEDURE: MRSA Surveillance Culture ? SOURCE: Nasal ? COLLECTED: 03/01/14 ??1424 ?BODY SITE: ? STARTED: 03/01/14 ??1552 ? FREE TEXT SOURCE: ? FINAL REPORT ? REPORTED: 03/03/14 0734 ? Negative ?* * * ??Interpretive Results ??* * * ? (1)This test is for Infection Prevention surveillance; no charge to ? the patient. ? us Historical Provider MD LAB MICROBIOLOGY - GENERA L ORDERABLES Final Result HISTORICAL RESULTS * XR Chest 1 Vw (02/28/2014 9:40 PM CDT) Anatomical Region Laterality Modality Body, Chest N/A Radiographic Piedad ging 02/28/2014 9:40 PM CDT Narrative 03/01/2014 6:47 AM CDT JUAN CARLOS VILLEDA M.D. FINAL REPORT ACC# ??Date Time ??Exam [id number] Feb 28, 2014 21:40:00 [id number] Chest 1 view Frontal EXAMINATION: ?? SINGLE VIEW ANTEROPOSTERIOR CHEST IMPRESSION: ?? Comparison is made to prior study of February 27, 2014 at 20:55. In the interval, there has been no change in a cordis catheter overlying the right brachiocephalic vein and a right apical chest tube. Left lateral chest tube is also seen in this patient status post median sternotomy. The heart size and mediastinal contour are unchanged. no right pleural effusion is identified. There is a very tiny right apical pneumothorax but no left pneumothorax is seen. A small pleural effusion is seen with some underlying opacity likely representing atelectasis. No pulmonary edema and no definite pneumonia. Requested By: JUAN BERRIOS Dictated By: ?? JUAN CARLOS VILLEDA M.D. ??on Feb ??2013 ??6:46A This document has been electronically signed by: JUAN CARLOS VILLEDA M.D. on Feb ??2013 ??6:47A Addendum Dictated by: JUAN CARLOS VILLEDA M.D. on Feb ??2013 ??6:48A This Addendum has been electronically signed by: JUAN CARLOS VILLEDA M.D. on Feb ??2013 ??6:47A Procedure Note Provider, MD Homero - 12/27/2016 JUAN CARLOS VILLEDA M.D. FINAL REPORT ACC# Date Time Exam [id number] Feb 28, 2014 21:40:00 12407 Chest 1 view Frontal EXAMINATION: SINGLE VIEW ANTEROPOSTERIOR CHEST IMPRESSION: Comparison is made to prior study of February 27, 2014 at 20:55. In the interval, there has been no change in a cordis catheter overlying the right brachiocephalic vein and a right apical chest tube. Left lateral chest tube is also seen in this patient status post median sternotomy. The heart size and mediastinal contour are unchanged. no right pleural effusion is identified. There is a very tiny right apical pneumothorax but no left pneumothorax is seen. A small pleural effusion is seen with some underlying opacity likely representing atelectasis. No pulmonary edema and no definite pneumonia. Requested By: JUAN BERRIOS ANP Dictated By: JUAN CARLOS VILLEDA M.D. on Mar 01 2014 6:46A This document has been electronically signed by: JUAN CARLOS VILLEDA M.D. on Mar 01 2014 6:47A Addendum Dictated by: JUAN CARLOS VILLEDA M.D. on Mar 01 2014 6:48A This Addendum has been electronically signed by: JUAN CARLOS VILLEDA M.D. on Mar 01 2014 6:47A Historical Provider MD GROVES XR PROCEDURES Final R esult * (ABNORMAL) Plasma basic metabolic panel (02/28/2014 8:47 PM CDT) Sodium 141 135 - 145 mmol/L HISTORICAL RESULTS K, pl 4.0 3.3 - 4.9 mmol/L HISTORICAL RESULTS Chloride 103 97 - 110 mmol/L HISTORICAL RESULTS CO2 31 22 - 32 mmol/L HISTORICAL RESULTS A. gap 7 0 - 16 mmol/L HISTORICAL RESULTS Glucose 144 70 - 199 mg/dl HISTORICAL RESULTS BUN 28(H) 8 - 25 mg/dl HISTORICAL RESULTS Creatinine 0.62 0.60 - 1.10 mg/dl HISTORICAL RESULTS Calcium 8.0(L) 8.6 - 10.3 mg/dl HISTORICAL RESULTS Plasma 02/28/2014 8:47 PM CDT Juan Berrios FILTER PRESS PUMPER LAB BLOOD ORDERABLES Final Result Performing Organization Address [place]/[facility] de Phone Number HISTORICAL RESULTS * Plasma phosphorus (02/28/2014 8:47 PM CDT) Phosphorus, pl 2.6 2.3 - 4.3 mg/dl HISTORICAL RESULTS Plasma 02/28/2014 8:47 PM CDT Juan Berrios FILTER PRESS PUMPER LAB BLOOD ORDERABLES Final Result Performing Organization Address [facility] de Phone Number HISTORICAL RESULTS * Serum magnesium (02/28/2014 8:47 PM CDT) Magnesium 2.3 1.4 - 2.5 mg/dl HISTORICAL RESULTS Serum 02/28/2014 8:47 PM CDT Juan Berrios FILTER [employer] PUMPER LAB BLOOD ORDERABLES Final Result Performing Organization Address [facility] de Phone Number HISTORICAL RESULTS * (ABNORMAL) Blood cell count [CBC] express (02/28/2014 8:47 PM CDT) WBC 11.6(H) 3.8 - 9.8 K/cumm HISTORICAL RESULTS RBC 3.28(L) 3.90 - 5.00 M/cumm HISTORICAL RESULTS Hgb 9.5(L) 12.1 - 15.1 g/dl HISTORICAL RESULTS Hct 29.4(L) 36.1 - 44.3 % HISTORICAL RESULTS MCV 89.7 80.0 - 97.6 fl HISTORICAL RESULTS MCH 29.0 26.7 - 33.7 pg HISTORICAL RESULTS MCHC 32.4(L) 32.7 - 35.5 g/dl HISTORICAL RESULTS Rdw 14.9(H) 11.8 - 14.6 % HISTORICAL RESULTS Platelets 216 140 - 440 K/cumm HISTORICAL RESULTS Comment:verified MPV 8.1 6.8 - 10.4 fl HISTORICAL RESULTS Blood specimen (specimen) 02/28/2014 8:47 PM CDT Juan Berrios NP LAB BLOOD ORDERABLES Final Result Performing Organization Address [facility] de Phone Number HISTORICAL RESULTS * (ABNORMAL) Plasma partial thromboplastin time (PTT) (02/28/2014 8:47 PM CDT) APTT 75.9(H) 25.0 - 37.0 seconds HISTORICAL RESULTS Comment: Interpretive Data Therapeutic heparin range:60.0 - 94.0 sec based on correlation with therapeutic heparin activity range of 0.3 -0.7 Units/mL. Current interpretive data was last revised on 2011. Plasma 02/28/2014 8:47 PM CDT Juan Berrios FILTER [employer]ESS PUMPER LAB BLOOD ORDERABLES Final Result Performing Organization Address [facility] Phone Number HISTORICAL RESULTS * Blood potassium, mixed venous (02/28/2014 2:33 PM CDT) Potassium, bld 3.9 3.3 - 4.9 mmol/L HISTORICAL RESULTS Mixed venous blood 02/28/2014 2:33 PM CDT Sushant Sim MD PhD LAB BLOOD ORDERABLES Final Result Performing Organization Address [facility] Phone Number HISTORICAL RESULTS * (ABNORMAL) Plasma partial thromboplastin time (PTT) (02/28/2014 2:33 PM CDT) APTT 67.0(H) 25.0 - 37.0 seconds HISTORICAL RESULTS Comment: Interpretive Data Therapeutic heparin range:60.0 - 94.0 sec based on correlation with therapeutic heparin activity range of 0.3 -0.7 Units/mL. Current interpretive data was last revised on 2011. Plasma 02/28/2014 2:33 PM CDT Juan Berrios FILTER PRESS PUMPER LAB BLOOD ORDERABLES Final Result Performing Organization Address [facility] Phone Number HISTORICAL RESULTS * Blood potassium, mixed venous (02/28/2014 8:38 AM CDT) Potassium, bld 4.0 3.3 - 4.9 mmol/L HISTORICAL RESULTS Mixed venous blood 02/28/2014 8:38 AM CDT Result [facility] Sushant Sim MD PhD LAB BLOOD ORDERABLES Final Result Performing Organization Address [facility] Phone Number HISTORICAL RESULTS * Blood glucose, POC (02/28/2014 7:48 AM CDT) Glucose, POC, bld 127 70 - 199 mg/dl HISTORICAL RESULTS Blood specimen (specimen) 02/28/2014 7:48 AM CDT Justino Doyle MD LAB BLOOD ORDERABLES Final Resul t Performing Organization Address [facility] de Phone Number HISTORICAL RESULTS * (ABNORMAL) Plasma partial thromboplastin time (PTT) (02/28/2014 6:21 AM CDT) Pathologist [facility] APTT 54.1(H) 25.0 - 37.0 seconds HISTORICAL RESULTS Comment: Interpretive Data Therapeutic heparin range:60.0 - 94.0 sec based on correlation with therapeutic heparin activity range of 0.3 -0.7 Units/mL. Current interpretive data was last revised on 2011. Plasma 02/28/2014 6:21 AM CDT Juan Berrios NP LAB BLOOD ORDERABLES Final Result Performing Organization Address [facility] de Phone Number HISTORICAL RESULTS * ELECTROCARDIOGRAPHY (ECG) (02/28/2014) Narrative 02/28/2014 Ordered by an unspecified provider. Result [facility] Historical Provider ECG ORDERABLES Final Res ult * (ABNORMAL) Blood gas, arterial (02/27/2014 10:55 PM CDT) Ph, art 7.46(H) 7.35 - 7.45 HISTORICAL RESULTS PCO2 41 35 - 45 mm Hg HISTORICAL RESULTS PO2, art 66(L) 80 - 105 mm Hg HISTORICAL RESULTS CO2, calc, art 30 21 - 30 mmol/L HISTORICAL RESULTS A-a gradient Not Applicable mm Hg HI STORICAL RESULTS O2, inspired, %, art Not Applicable % HISTORICAL RESULTS Oxygen (O2), inspired fraction (FiO2) 9.0 liters HISTORICAL RESULTS Arterial blood 02/27/2014 10 :55 PM CDT Juan Berrios NP LAB BLOOD ORDERABLES Final Result Performing Organization Address [facility]/[place]/[facility] de Phone Number HISTORICAL RESULTS * (ABNORMAL) Plasma partial thromboplastin time (PTT) (02/27/2014 10:55 PM CDT) APTT 49.3(H) 25.0 - 37.0 seconds HISTORICAL RESULTS Comment: Interpretive Data Therapeutic heparin range:60.0 - 94.0 sec based on correlation with therapeutic heparin activity range of 0.3 -0.7 Units/mL. Current interpretive data was last revised on 2011. Plasma 02/27/2014 10:5 5 PM CDT Juan Berrios FILTER [employer]ESS PUMPER LAB BLOOD ORDERABLES Final Result Performing Organization Address [facility] de Phone Number HISTORICAL RESULTS * Blood potassium, mixed venous (02/27/2014 10:55 PM CDT) Potassium, bld 4.3 3.3 - 4.9 mmol/L HISTORICAL RESULTS Mixed venous blood 02/27/2014 10:55 PM CDT Sushant Sim MD PhD LAB BLOOD ORDERABLES Final Result Performing Organization Address [facility] de Phone Number HISTORICAL RESULTS * XR Chest 1 Vw (02/27/2014 9:12 PM CDT) Anatomical Region Laterality Modality Body, Chest N/A Radiographic Piedad ging 02/27/2014 9:12 PM CDT Narrative 02/28/2014 10:36 AM CDT NURA BENZ M.D. ANNE MARIE MARTIN, FINAL REPORT The radiology attending physician has personally reviewed this study, and has reviewed and/or edited this written report and agrees with it. ACC# ??Date Time ??Exam [id number] Feb 27, 2014 21:12:00 [id number] Chest 1 view Frontal EXAMINATION: ?? Chest 1 view IMPRESSION: ?? Comparison is made to prior chest radiograph dated 02/26/2014. Median sternotomy wires are aligned and intact. There has been interval removal of a right internal jugular approach [place]-Lauro catheter with placement of a right internal jugular sheath. There are bilateral thoracostomy tubes, unchanged. There is a small left pleural effusion with left basilar atelectasis. No pneumothorax. Heart size and mediastinal contour are unchanged. Requested By: JUAN BERRIOS ANP Dictated By: ?? ANNE MARIE MARTIN, ?? on Feb ??2013 ??8:04A This document has been electronically signed by: NURA BENZ M.D. on Feb?2013 10:36A Procedure Note Provider, Homero, - 12/27/2016 NURA BENZ M.D. ANNE MARIE MARTIN, FINAL REPORT The radiology attending physician has personally reviewed this study, and has reviewed and/or edited this written report and agrees with it. ACC# Date Time Exam [id number] Feb 27, 2014 21:12:00 [id number] Chest 1 view Frontal EXAMINATION: Chest 1 view IMPRESSION: Comparison is made to prior chest radiograph dated 02/26/2014. Median sternotomy wires are aligned and intact. There has been interval removal of a right internal jugular approach [place]-Lauro catheter with placement of a right internal jugular sheath. There are bilateral thoracostomy tubes, unchanged. There is a small left pleural effusion with left basilar atelectasis. No pneumothorax. Heart size and mediastinal contour are unchanged. Requested By: JUAN BERRIOS Dictated By: ANNE MARIE MARTIN, on Feb 28 2014 8:04A This document has been electronically signed by: NURA BENZ M.D. on Feb 28 2014 10:36A us Historical Provider MD GROVES XR PROCEDURES Final R esult * (ABNORMAL) Plasma basic metabolic panel (02/27/2014 8:56 PM CDT) Sodium 141 135 - 145 mmol/L HISTORICAL RESULTS K, pl 4.0 3.3 - 4.9 mmol/L HISTORICAL RESULTS Chloride 103 97 - 110 mmol/L HISTORICAL RESULTS CO2 31 22 - 32 mmol/L HISTORICAL RESULTS A. gap 7 0 - 16 mmol/L HISTORICAL RESULTS Glucose 114 70 - 199 mg/dl HISTORICAL RESULTS BUN 22 8 - 25 mg/dl HISTORICAL RESULTS Creatinine 0.57(L) 0.60 - 1.10 mg/dl HISTORICAL RESULTS Calcium 8.4(L) 8.6 - 10.3 mg/dl HISTORICAL RESULTS Plasma 02/27/2014 8:56 PM CDT Juan Berrios FILTER PRESS PUMPER LAB BLOOD ORDERABLES Final Result Performing Organization Address [facility] de Phone Number HISTORICAL RESULTS * Plasma phosphorus (02/27/2014 8:56 PM CDT) Phosphorus, pl 2.4 2.3 - 4.3 mg/dl HISTORICAL RESULTS Plasma 02/27/2014 8:56 PM CDT Juan Berrios FILTER PRESS PUMPER LAB BLOOD ORDERABLES Final Result Performing Organization Address [facility] Phone Number HISTORICAL RESULTS * Serum magnesium (02/27/2014 8:56 PM CDT) Magnesium 2.2 1.4 - 2.5 mg/dl HISTORICAL RESULTS Serum 02/27/2014 8:56 PM CDT Juan Berrios FILTER PRESS PUMPER LAB BLOOD ORDERABLES Final Result Performing Organization Address [facility] Phone Number HISTORICAL RESULTS * (ABNORMAL) Blood cell count [CBC] express (02/27/2014 8:56 PM CDT) WBC 10.9(H) 3.8 - 9.8 K/cumm HISTORICAL RESULTS RBC 3.17(L) 3.90 - 5.00 M/cumm HISTORICAL RESULTS Hgb 9.4(L) 12.1 - 15.1 g/dl HISTORICAL RESULTS Hct 28.3(L) 36.1 - 44.3 % HISTORICAL RESULTS MCV 89.2 80.0 - 97.6 fl HISTORICAL RESULTS MCH 29.8 26.7 - 33.7 pg HISTORICAL RESULTS MCHC 33.4 32.7 - 35.5 g/dl HISTORICAL RESULTS Rdw 14.5 11.8 - 14.6 % HISTORICAL RESULTS Platelets 162 140 - 440 K/cumm HISTORICAL RESULTS Comment:Reviewed MPV 8.3 6.8 - 10.4 fl HISTORICAL RESULTS Blood specimen (specimen) 02/27/2014 8:56 PM CDT Juan Berrios FILTER [employer]ESS PUMPER LAB BLOOD ORDERABLES Final Result Performing Organization Address [facility] Phone Number HISTORICAL RESULTS * Blood glucose, POC (02/27/2014 8:54 PM CDT) Glucose, POC, bld 110 70 - 199 mg/dl HISTORICAL RESULTS Blood specimen (specimen) 02/27/2014 8:54 PM CDT Justino Doyle MD LAB BLOOD ORDERABLES Final Resul t Performing Organization Address [facility] Phone Number HISTORICAL RESULTS * (ABNORMAL) Plasma partial thromboplastin time (PTT) (02/27/2014 4:28 PM CDT) APTT 37.5(H) 25.0 - 37.0 seconds HISTORICAL RESULTS Comment: Interpretive Data Therapeutic heparin range:60.0 - 94.0 sec based on correlation with therapeutic heparin activity range of 0.3 -0.7 Units/mL. Current interpretive data was last revised on 2011. Plasma 02/27/2014 4:28 PM CDT Juan Berrios [employer] LAB BLOOD ORDERABLES Final Result Performing Organization Address [facility] de Phone Number HISTORICAL RESULTS * Blood potassium, mixed venous (02/27/2014 4:26 PM CDT) Potassium, bld 3.6 3.3 - 4.9 mmol/L HISTORICAL RESULTS Mixed venous blood 02/27/2014 4:26 PM CDT Result [facility] Sushant Sim MD PhD LAB BLOOD ORDERABLES Final Result Performing Organization Address [facility] de Phone Number HISTORICAL RESULTS * Blood glucose, POC (02/27/2014 12:00 PM CDT) Glucose, POC, bld 121 70 - 199 mg/dl HISTORICAL RESULTS Blood specimen (specimen) 02/27/2014 12:00 PM CDT Justino Doyle MD LAB BLOOD ORDERABLES Final Resul t Performing Organization Address [facility] Phone Number HISTORICAL RESULTS * Blood glucose, POC (02/27/2014 7:28 AM CDT) Glucose, POC, bld 129 70 - 199 mg/dl HISTORICAL RESULTS Blood specimen (specimen) 02/27/2014 7:28 AM CDT Justino Doyle MD LAB BLOOD ORDERABLES Final Resul t Performing Organization Address [facility] Phone Number HISTORICAL RESULTS * (ABNORMAL) Blood hemoglobin saturation (02/27/2014 7:25 AM CDT) Pathologist [facility] Hgb estimated, main pulmonary a 9.1(L) 12.1 - 15.1 g/dl HISTORICAL RESULTS OxyHb, main pulmonary a 50.5 % HISTORICAL RESULTS COHb, main pulmonary a 1.2 % HISTORICAL RESULTS MetHb, main pulmonary a 0.9 % HISTORICAL RESULTS O2 content, pulmonary a 6.5 volume % O2 HISTORICAL RESULTS Blood specimen (specimen) 02/27/2014 7:25 AM CDT Homero Pugh MD LAB BLOOD ORDERABLES Jennifer l Result Performing Organization Address [facility] Phone Number HISTORICAL RESULTS * Blood potassium, mixed venous (02/27/2014 7:25 AM CDT) Pathologist [facility] Potassium, bld 3.5 3.3 - 4.9 mmol/L HISTORICAL RESULTS Mixed venous blood 02/27/2014 7:25 AM CDT Sushant Sim MD PhD LAB BLOOD ORDERABLES Final Result Performing Organization Address [facility] de Phone Number HISTORICAL RESULTS * (ABNORMAL) Blood gas, arterial (02/27/2014 7:25 AM CDT) Pathologist [facility] Ph, art 7.44 7.35 - 7.45 HISTORICAL RESULTS PCO2 41 35 - 45 mm Hg HISTORICAL RESULTS PO2, art 68(L) 80 - 105 mm Hg HISTORICAL RESULTS CO2, calc, art 29 21 - 30 mmol/L HISTORICAL RESULTS A-a gradient Not Applicable mm Hg HI STORICAL RESULTS O2, inspired, %, art Not Applicable % HISTORICAL RESULTS Oxygen (O2), inspired fraction (FiO2) 4.0 liters HISTORICAL RESULTS Arterial blood 02/27/2014 7: 25 AM CDT Sushant Sim MD PhD LAB BLOOD ORDERABLES Final Result Performing Organization Address [facility] de Phone Number HISTORICAL RESULTS * Blood glucose, POC (02/27/2014 3:53 AM CDT) [facility] Glucose, POC, bld 112 70 - 199 mg/dl HISTORICAL RESULTS Blood specimen (specimen) 02/27/2014 3:53 AM CDT Justino Doyle MD LAB BLOOD ORDERABLES Final Resul t Performing Organization Address [facility] de Phone Number HISTORICAL RESULTS * Blood glucose, POC (02/27/2014 12:07 AM CDT) [facility] Glucose, POC, bld 114 70 - 199 mg/dl HISTORICAL RESULTS Blood specimen (specimen) 02/27/2014 12:07 AM CDT Justino Doyle MD LAB BLOOD ORDERABLES Final Resul t Performing Organization Address [facility] de Phone Number HISTORICAL RESULTS * (ABNORMAL) Blood hemoglobin saturation (02/26/2014 8:44 PM CDT) [facility] Hgb estimated, main pulmonary a 9.2(L) 12.1 - 15.1 g/dl HISTORICAL RESULTS OxyHb, main pulmonary a 52.7 % HISTORICAL RESULTS COHb, main pulmonary a 1.4 % HISTORICAL RESULTS MetHb, main pulmonary a 0.6 % HISTORICAL RESULTS O2 content, pulmonary a 6.8 volume % O2 HISTORICAL RESULTS Blood specimen (specimen) 02/26/2014 8:44 PM CDT Historical Provider MD LAB BLOOD ORDERABLES Jennifer l Result Performing Organization Address City/State/[facility] Co de Phone Number HISTORICAL RESULTS * (ABNORMAL) Plasma basic metabolic panel (02/26/2014 8:44 PM CDT) Sodium 140 135 - 145 mmol/L HISTORICAL RESULTS K, pl 4.2 3.3 - 4.9 mmol/L HISTORICAL RESULTS Chloride 106 97 - 110 mmol/L HISTORICAL RESULTS CO2 27 22 - 32 mmol/L HISTORICAL RESULTS A. gap 7 0 - 16 mmol/L HISTORICAL RESULTS Glucose 125 70 - 199 mg/dl HISTORICAL RESULTS BUN 15 8 - 25 mg/dl HISTORICAL RESULTS Creatinine 0.54(L) 0.60 - 1.10 mg/dl HISTORICAL RESULTS Calcium 8.4(L) 8.6 - 10.3 mg/dl HISTORICAL RESULTS Plasma 02/26/2014 8:44 PM CDT Jeniffer Kaufman NP LAB BLOOD ORDERABLES Final R esult Performing Organization Address City/[facility] Co de Phone Number HISTORICAL RESULTS * Plasma phosphorus (02/26/2014 8:44 PM CDT) Phosphorus, pl 2.7 2.3 - 4.3 mg/dl HISTORICAL RESULTS Plasma 02/26/2014 8:44 PM CDT Jeniffer Kaufman [employer] LAB BLOOD ORDERABLES Final R esult HISTORICAL RESULTS * Serum magnesium (02/26/2014 8:44 PM CDT) Magnesium 2.1 1.4 - 2.5 mg/dl HISTORICAL RESULTS Serum 02/26/2014 8:44 PM CDT Jeniffer Kaufman [employer] LAB BLOOD ORDERABLES Final R esult Performing Organization Address [facility] de Phone Number HISTORICAL RESULTS * (ABNORMAL) Blood cell count [CBC] express (02/26/2014 8:44 PM CDT) WBC 13.4(H) 3.8 - 9.8 K/cumm HISTORICAL RESULTS RBC 3.12(L) 3.90 - 5.00 M/cumm HISTORICAL RESULTS Hgb 9.3(L) 12.1 - 15.1 g/dl HISTORICAL RESULTS Hct 27.6(L) 36.1 - 44.3 % HISTORICAL RESULTS MCV 88.5 80.0 - 97.6 fl HISTORICAL RESULTS MCH 29.8 26.7 - 33.7 pg HISTORICAL RESULTS MCHC 33.6 32.7 - 35.5 g/dl HISTORICAL RESULTS Rdw 14.6 11.8 - 14.6 % HISTORICAL RESULTS Platelets 107(L) 140 - 440 K/cumm HISTORICAL RESULTS MPV 8.7 6.8 - 10.4 fl HISTORICAL RESULTS Blood specimen (specimen) 02/26/2014 8:44 PM CDT Jeniffer Kaufman NP LAB BLOOD ORDERABLES Final R [facility] Performing Organization Address [facility] de Phone Number HISTORICAL RESULTS * (ABNORMAL) Blood gas, arterial (02/26/2014 8:44 PM CDT) Ph, art 7.43 7.35 - 7.45 HISTORICAL RESULTS PCO2 40 35 - 45 mm Hg HISTORICAL RESULTS PO2, art 149(H) 80 - 105 mm Hg HISTORICAL RESULTS CO2, calc, art 27 21 - 30 mmol/L HISTORICAL RESULTS A-a gradient 303 mm Hg HISTORI BRUNO RESULTS O2, inspired, %, art 70 % HISTORICAL RESULTS Oxygen (O2), inspired fraction (FiO2) Not Applicable liters HISTORICAL RESULTS Arterial blood 02/26/2014 8: 44 PM CDT Jeniffer Kaufman FILTER [employer] LAB BLOOD ORDERABLES Final R [facility] Performing Organization Address [facility] de Phone Number HISTORICAL RESULTS * XR Chest 1 Vw (02/26/2014 8:40 PM CDT) Anatomical Region Laterality Modality Body, Chest N/A Radiographic Piedad ging 02/26/2014 8:40 PM CDT Narrative 02/27/2014 6:54 AM CDT JUAN CARLOS VILLEDA M.D. FINAL REPORT ACC# ??Date Time ??Exam [id number] Feb 26, 2014 20:40:00 [id number] Chest 1 view Frontal EXAMINATION: ?SINGLE VIEW ANTEROPOSTERIOR CHEST IMPRESSION: ?When compared to prior study of February 25, 2014 at 21:18, no change in a left chest tube. There may be a tiny left pleural effusion but no pneumothorax is identified. Patient is post median sternotomy and note is made of a [place]-La[place] catheter ending in the left upper lobe pulmonary artery. This is unchanged compared to the prior study. Right chest tube is seen but there is no pneumothorax. Mild left base atelectasis is seen. The aeration is improved compared to the prior study. Pulmonary edema is unchanged compared to prior study and remains mild. The previously seen endotracheal tube and nasogastric tube have been removed. The heart size and mediastinal contour are unchanged. Requested By: JENIFFER KAUFMAN [facility] Dictated By: ?? JUAN CARLOS VILLEDA M.D. ??on Feb ??2013 ??6:54A This document has been electronically signed by: JUAN CARLOS VILLEDA M.D. on Feb?2013 ??6:54A Procedure Note Provider, MD Homero - 12/27/2016 JUAN CARLOS VILLEDA M.D. FINAL REPORT ACC# Date Time Exam [id number] Feb 26, 2014 20:40:00 [id number] Chest 1 view Frontal EXAMINATION: SINGLE VIEW ANTEROPOSTERIOR CHEST IMPRESSION: When compared to prior study of February 25, 2014 at 21:18, no change in a left chest tube. There may be a tiny left pleural effusion but no pneumothorax is identified. Patient is post median sternotomy and note is made of a [place] catheter ending in the left upper lobe pulmonary artery. This is unchanged compared to the prior study. Right chest tube is seen but there is no pneumothorax. Mild left base atelectasis is seen. The aeration is improved compared to the prior study. Pulmonary edema is unchanged compared to prior study and remains mild. The previously seen endotracheal tube and nasogastric tube have been removed. The heart size and mediastinal contour are unchanged. Requested By: JENIFFER KAUFMAN ACNP Dictated By: JUAN CARLOS VILLEDA M.D. on Feb 27 2014 6:54A This document has been electronically signed by: JUAN CARLOS VILLEDA M.D. on Feb 27 2014 6:54A Historical Provider IMG XR PROCEDURES Final R esult * Blood glucose, POC (02/26/2014 7:38 PM CDT) [facility] Glucose, POC, bld 129 70 - 199 mg/dl HISTORICAL RESULTS Blood specimen (specimen) 02/26/2014 7:38 PM CDT Justino Doyle MD LAB BLOOD ORDERABLES Final Resul t Performing Organization Address City/State/[facility] Co de Phone Number HISTORICAL RESULTS * (ABNORMAL) Blood hemoglobin saturation (02/26/2014 5:07 PM CDT) [facility] Hgb estimated, main pulmonary a 8.7(L) 12.1 - 15.1 g/dl HISTORICAL RESULTS OxyHb, main pulmonary a 51.7 % HISTORICAL RESULTS COHb, main pulmonary a 1.7 % HISTORICAL RESULTS MetHb, main pulmonary a 1.0 % HISTORICAL RESULTS O2 content, pulmonary a 6.3 volume % O2 HISTORICAL RESULTS Blood specimen (specimen) 02/26/2014 5:07 PM CDT Historical Provider LAB BLOOD ORDERABLES Jennifer l Result HISTORICAL RESULTS * Blood potassium, mixed venous (02/26/2014 5:07 PM CDT) [facility] Potassium, bld 3.8 3.3 - 4.9 mmol/L HISTORICAL RESULTS Mixed venous blood 02/26/2014 5:07 PM CDT us Sushant Sim MD PhD LAB BLOOD ORDERABLES Final Result Performing Organization Address [facility] de Phone Number HISTORICAL RESULTS * (ABNORMAL) Blood gas, arterial (02/26/2014 5:07 PM CDT) Ph, art 7.47(H) 7.35 - 7.45 HISTORICAL RESULTS PCO2 35 35 - 45 mm Hg HISTORICAL RESULTS PO2, art 155(H) 80 - 105 mm Hg HISTORICAL RESULTS CO2, calc, art 26 21 - 30 mmol/L HISTORICAL RESULTS A-a gradient Not Applicable mm Hg HI STORICAL RESULTS O2, inspired, %, art Not Applicable % HISTORICAL RESULTS Oxygen (O2), inspired fraction (FiO2) 10.0 liters HISTORICAL RESULTS Arterial blood 02/26/2014 5: 07 PM CDT us Jeniffer Kaufman NP LAB BLOOD ORDERABLES Final R esult Performing Organization Address [facility] de Phone Number HISTORICAL RESULTS * Blood glucose, POC (02/26/2014 4:33 PM CDT) Glucose, POC, bld 143 70 - 199 mg/dl HISTORICAL RESULTS Blood specimen (specimen) 02/26/2014 4:33 PM CDT Justino Doyle MD LAB BLOOD ORDERABLES Final Resul t Performing Organization Address [facility] de Phone Number HISTORICAL RESULTS * Blood ABO, Rh, indirect ab screen (02/26/2014 1:47 PM CDT) ABO, Rho(D) O Positive HISTORI BRUNO RESULTS Twyla, indirect Negative HISTORICAL RESULTS Blood specimen (specimen) 02/26/2014 1:47 PM CDT us Awilda Calderon MD LAB BLOOD ORDERABLES Final Result Performing Organization Address [facility] de Phone Number HISTORICAL RESULTS * (ABNORMAL) Blood hemoglobin saturation (02/26/2014 11:49 AM CDT) Pathologist [facility] Hgb estimated, main pulmonary a 8.2(L) 12.1 - 15.1 g/dl HISTORICAL RESULTS OxyHb, main pulmonary a 52.3 % HISTORICAL RESULTS COHb, main pulmonary a 1.0 % HISTORICAL RESULTS MetHb, main pulmonary a 0.7 % HISTORICAL RESULTS O2 content, pulmonary a 6.0 volume % O2 HISTORICAL RESULTS Blood specimen (specimen) 02/26/2014 11:49 AM CDT Historical Provider MD LAB BLOOD ORDERABLES Jennifer l Result Performing Organization Address [facility] de Phone Number HISTORICAL RESULTS * Blood potassium, mixed venous (02/26/2014 11:49 AM CDT) [facility] Potassium, bld 4.2 3.3 - 4.9 mmol/L HISTORICAL RESULTS Mixed venous blood 02/26/2014 11:49 AM CDT Result [facility] Sushant Sim MD PhD LAB BLOOD ORDERABLES Final Result Performing Organization Address [facility] de Phone Number HISTORICAL RESULTS * (ABNORMAL) Blood gas, arterial (02/26/2014 11:49 AM CDT) [facility] Ph, art 7.49(H) 7.35 - 7.45 HISTORICAL RESULTS PCO2 35 35 - 45 mm Hg HISTORICAL RESULTS PO2, art 73(L) 80 - 105 mm Hg HISTORICAL RESULTS CO2, calc, art 28 21 - 30 mmol/L HISTORICAL RESULTS A-a gradient Not Applicable mm Hg HI STORICAL RESULTS O2, inspired, %, art Not Applicable % HISTORICAL RESULTS Oxygen (O2), inspired fraction (FiO2) Not Applicable liters HISTORICAL RESULTS Arterial blood 02/26/2014 11 :49 AM CDT Result [facility] Sushant Sim MD PhD LAB BLOOD ORDERABLES Final Result Performing Organization Address [facility] de Phone Number HISTORICAL RESULTS * Blood glucose, POC (02/26/2014 11:45 AM CDT) [facility] Glucose, POC, bld 147 70 - 199 mg/dl HISTORICAL RESULTS Blood specimen (specimen) 02/26/2014 11:45 AM CDT us Justino Doyle MD LAB BLOOD ORDERABLES Final Resul t HISTORICAL RESULTS * (ABNORMAL) Blood cell count [CBC] express (02/26/2014 9:00 AM CDT) WBC 12.7(H) 3.8 - 9.8 K/cumm HISTORICAL RESULTS RBC 2.77(L) 3.90 - 5.00 M/cumm HISTORICAL RESULTS Hgb 8.3(L) 12.1 - 15.1 g/dl HISTORICAL RESULTS Hct 24.6(L) 36.1 - 44.3 % HISTORICAL RESULTS MCV 89.1 80.0 - 97.6 fl HISTORICAL RESULTS MCH 29.8 26.7 - 33.7 pg HISTORICAL RESULTS MCHC 33.5 32.7 - 35.5 g/dl HISTORICAL RESULTS Rdw 14.7(H) 11.8 - 14.6 % HISTORICAL RESULTS Platelets 99(L) 140 - 440 K/cumm HISTORICAL RESULTS MPV 8.4 6.8 - 10.4 fl HISTORICAL RESULTS Blood specimen (specimen) 02/26/2014 9:00 AM CDT Jeniffer Kaufman [employer] LAB BLOOD ORDERABLES Final R esult Performing Organization Address City/[facility] Co de Phone Number HISTORICAL RESULTS * (ABNORMAL) Blood hemoglobin saturation (02/26/2014 8:48 AM CDT) Hgb estimated, main pulmonary a 8.1(L) 12.1 - 15.1 g/dl HISTORICAL RESULTS OxyHb, main pulmonary a 57.1 % HISTORICAL RESULTS COHb, main pulmonary a 0.8 % HISTORICAL RESULTS MetHb, main pulmonary a 0.2 % HISTORICAL RESULTS O2 content, pulmonary a 6.6 volume % O2 HISTORICAL RESULTS Blood specimen (specimen) 02/26/2014 8:48 AM CDT Historical Provider LAB BLOOD ORDERABLES Jennifer l Result Performing Organization Address [facility] de Phone Number HISTORICAL RESULTS * Blood potassium, mixed venous (02/26/2014 8:48 AM CDT) Potassium, bld 3.7 3.3 - 4.9 mmol/L HISTORICAL RESULTS Mixed venous blood 02/26/2014 8:48 AM CDT Sushant Sim MD PhD LAB BLOOD ORDERABLES Final Result Performing Organization Address [facility] de Phone Number HISTORICAL RESULTS * (ABNORMAL) Blood gas, arterial (02/26/2014 8:48 AM CDT) Ph, art 7.45 7.35 - 7.45 HISTORICAL RESULTS PCO2 37 35 - 45 mm Hg HISTORICAL RESULTS PO2, art 165(H) 80 - 105 mm Hg HISTORICAL RESULTS CO2, calc, art 27 21 - 30 mmol/L HISTORICAL RESULTS A-a gradient Not Applicable mm Hg HI STORICAL RESULTS O2, inspired, %, art Not Applicable % HISTORICAL RESULTS Oxygen (O2), inspired fraction (FiO2) Not Applicable liters HISTORICAL RESULTS Arterial blood 02/26/2014 8: 48 AM CDT Sushant Sim MD PhD LAB BLOOD ORDERABLES Final Result Performing Organization Address [facility] Phone Number HISTORICAL RESULTS * Blood glucose, POC (02/26/2014 7:32 AM CDT) Glucose, POC, bld 153 70 - 199 mg/dl HISTORICAL RESULTS Blood specimen (specimen) 02/26/2014 7:32 AM CDT Justino Doyle MD LAB BLOOD ORDERABLES Final Resul t Performing Organization Address [facility] de Phone Number HISTORICAL RESULTS * (ABNORMAL) Blood gas, arterial (02/26/2014 6:26 AM CDT) A-a gradient 262 mm Hg HISTORI BRUNO RESULTS CO2, calc, art 25 21 - 30 mmol/L HISTORICAL RESULTS O2, inspired, %, art 50 % HISTORICAL RESULTS Ph, art 7.46(H) 7.35 - 7.45 HISTORICAL RESULTS Oxygen (O2), inspired fraction (FiO2) Not Applicable liters HISTORICAL RESULTS PCO2 34(L) 35 - 45 mm Hg HISTORICAL RESULTS PO2, art 53(L) 80 - 105 mm Hg HISTORICAL RESULTS Arterial blood 02/26/2014 6: 26 AM CDT Naga Pérez MD PhD LAB BLOOD ORDERABLES F inal Result Performing Organization Address [facility] de Phone Number HISTORICAL RESULTS * (ABNORMAL) Blood hemoglobin saturation (02/26/2014 3:47 AM CDT) Hgb estimated, main pulmonary a 8.5(L) 12.1 - 15.1 g/dl HISTORICAL RESULTS OxyHb, main pulmonary a 55.5 % HISTORICAL RESULTS COHb, main pulmonary a 1.1 % HISTORICAL RESULTS MetHb, main pulmonary a 0.9 % HISTORICAL RESULTS O2 content, pulmonary a 6.6 volume % O2 HISTORICAL RESULTS Blood specimen (specimen) 02/26/2014 3:47 AM CDT Homero Pugh MD LAB BLOOD ORDERABLES Jennifer l Result Performing Organization Address [facility] de Phone Number HISTORICAL RESULTS * Blood glucose, POC (02/26/2014 3:46 AM CDT) Glucose, POC, bld 168 70 - 199 mg/dl HISTORICAL RESULTS Blood specimen (specimen) 02/26/2014 3:46 AM CDT Justino Doyle MD LAB BLOOD ORDERABLES Final Resul t Performing Organization Address [facility] de Phone Number HISTORICAL RESULTS * Blood glucose, POC (02/25/2014 11:44 PM CDT) Glucose, POC, bld 175 70 - 199 mg/dl HISTORICAL RESULTS Blood specimen (specimen) 02/25/2014 11:44 PM CDT Justino Doyle MD LAB BLOOD ORDERABLES Final Resul t Performing Organization Address City/[facility] Co de Phone Number HISTORICAL RESULTS * Aerobic culture and Gram stain (02/25/2014 10:02 PM CDT) Sputum (Unknown) 02/25/2014 10:02 PM CDT 02/25/2014 10:03 PM CDT Historical Provider LAB MICROBIOLOGY - GENERA L ORDERABLES Final Result Performing Organization Address City/[facility] Co de Phone Number HISTORICAL RESULTS * Urine (aerobic) culture (02/25/2014 10:02 PM CDT) Urine, catheterized (Unknown) 02/25/2014 10:02 PM CDT 02/25/2014 10:37 PM CDT Narrative HISTORICAL RESULTS - 02/27/2014 7:03 PM CDT Greater than or equal to 5,000 colonies/ml of Yeast Historical Provider LAB MICROBIOLOGY - GENERA L ORDERABLES Final Result Performing Organization Address [facility] de Phone Number HISTORICAL RESULTS * Blood culture (02/25/2014 10:02 PM CDT) Blood specimen (specimen) (Forearm, left) 02/25/2014 10:02 PM CDT 02/25/2014 11:18 PM CDT Impressions HISTORICAL RESULTS - 03/03/2014 4:35 AM CDT Blood cultures are incubated for five days on a continuously monitored blood culture system. ??The first report of a negative culture is issued within 24 hours of receipt of the specimen in the laboratory. ??Positive culture results are reported as soon as they are detected. ??For blood cultures with gram-positive cocci, a rapid molecular test for organism identification may be performed using the [employer] Nanosphere Gram Positive Blood Culture Assay. ??The Nanosphere assay detects microbial DNA in positive blood culture broth via hybridization of target DNA to capture oligonucleotides on a microarray. ??This assay has been cleared by the [place] Food and Drug Administration and its performance characteristics have been verified by the [facility]. Current Interpretive Data was last revised on 2014. Narrative HISTORICAL RESULTS - 03/03/2014 4:35 AM CDT No growth Historical Provider MD LAB MICROBIOLOGY - GENERA L ORDERABLES Final Result Performing Organization Address [facility] de Phone Number HISTORICAL RESULTS * Blood culture (02/25/2014 10:02 PM CDT) Blood specimen (specimen) (Forearm, right) 02/25/2014 10:02 PM CDT 02/25/2014 11:17 PM CDT Impressions HISTORICAL RESULTS - 03/03/2014 4:35 AM CDT Blood cultures are incubated for five days on a continuously monitored blood culture system. ??The first report of a negative culture is issued within 24 hours of receipt of the specimen in the laboratory. ??Positive culture results are reported as soon as they are detected. ??For blood cultures with gram-positive cocci, a rapid molecular test for organism identification may be performed using the [employer] Nanosphere Gram Positive Blood Culture Assay. ??The Nanosphere assay detects microbial DNA in positive blood culture broth via hybridization of target DNA to capture oligonucleotides on a microarray. ??This assay has been cleared by the [place] Food and Drug Administration and its performance characteristics have been verified by the [facility]. Current Interpretive Data was last revised on 2014. Narrative HISTORICAL RESULTS - 03/03/2014 4:35 AM CDT No growth Historical Provider LAB MICROBIOLOGY - GENERA L ORDERABLES Final Result Performing Organization Address [facility] de Phone Number HISTORICAL RESULTS * Blood gas, arterial (02/25/2014 10:02 PM CDT) Ph, art 7.44 7.35 - 7.45 HISTORICAL RESULTS PO2, art 81 80 - 105 mm Hg HISTORICAL RESULTS CO2, calc, art 26 21 - 30 mmol/L HISTORICAL RESULTS A-a gradient 160 mm Hg HISTORI BRUNO RESULTS O2, inspired, %, art 40 % HISTORICAL RESULTS Oxygen (O2), inspired fraction (FiO2) Not Applicable liters HISTORICAL RESULTS PCO2 37 35 - 45 mm Hg HISTORICAL RESULTS Arterial blood 02/25/2014 10 :02 PM CDT Result [facility] Sushant Sim MD PhD LAB BLOOD ORDERABLES Final Result Performing Organization Address [facility] de Phone Number HISTORICAL RESULTS * (ABNORMAL) Blood hemoglobin saturation (02/25/2014 10:02 PM CDT) O2 content, pulmonary a 6.8 volume % O2 HISTORICAL RESULTS Hgb estimated, main pulmonary a 8.8(L) 12.1 - 15.1 g/dl HISTORICAL RESULTS OxyHb, main pulmonary a 55.5 % HISTORICAL RESULTS COHb, main pulmonary a 1.4 % HISTORICAL RESULTS MetHb, main pulmonary a 0.8 % HISTORICAL RESULTS Blood specimen (specimen) 02/25/2014 10:02 PM CDT Historical Provider LAB BLOOD ORDERABLES Jennifer l Result Performing Organization Address [facility] de Phone Number HISTORICAL RESULTS * Plasma partial thromboplastin time (PTT) (02/25/2014 10:02 PM CDT) Pathologist [facility] APTT 28.2 25.0 - 37.0 seconds HISTORICAL RESULTS Comment: Interpretive Data Therapeutic heparin range:60.0 - 94.0 sec based on correlation with therapeutic heparin activity range of 0.3 -0.7 Units/mL. Current interpretive data was last revised on 2011. Plasma 02/25/2014 10:0 2 PM CDT Historical Provider LAB BLOOD ORDERABLES Jennifer l Result Performing Organization Address [facility] de Phone Number HISTORICAL RESULTS * (ABNORMAL) Plasma basic metabolic panel (02/25/2014 10:02 PM CDT) Sodium 140 135 - 145 mmol/L HISTORICAL RESULTS K, pl 4.3 3.3 - 4.9 mmol/L HISTORICAL RESULTS Chloride 107 97 - 110 mmol/L HISTORICAL RESULTS CO2 26 22 - 32 mmol/L HISTORICAL RESULTS A. gap 7 0 - 16 mmol/L HISTORICAL RESULTS Glucose 189 70 - 199 mg/dl HISTORICAL RESULTS BUN 10 8 - 25 mg/dl HISTORICAL RESULTS Creatinine 0.55(L) 0.60 - 1.10 mg/dl HISTORICAL RESULTS Calcium 8.4(L) 8.6 - 10.3 mg/dl HISTORICAL RESULTS Plasma 02/25/2014 10:0 2 PM CDT Historical Provider MD LAB BLOOD ORDERABLES Jennifer l Result Performing Organization Address [facility] de Phone Number HISTORICAL RESULTS * Plasma phosphorus (02/25/2014 10:02 PM CDT) Phosphorus, pl 3.4 2.3 - 4.3 mg/dl HISTORICAL RESULTS Plasma 02/25/2014 10:0 2 PM CDT Historical Provider MD LAB BLOOD ORDERABLES Jennifer l Result Performing Organization Address [facility] de Phone Number HISTORICAL RESULTS * (ABNORMAL) Plasma prothrombin time (PT) (02/25/2014 10:02 PM CDT) Prothrombin time (PT) 13.3(H) 9.0 - 12.0 seconds HISTORICAL RESULTS INR 1.25(H) 0.90 - 1.20 HISTORIC AL RESULTS Comment: Interpretive Data Inpatient therapeutic ranges* Atrial fibrillation ?2.0-3.0 INR Venous thrombo-embolism ?2.0-3.0 INR Bioprosthetic heart valve ?* Mechanical heart valve, bileaflet or tilting disk,aortic position ? 2.0-3.0 INR All other,or bileaflet or tilting disk, in mitral position ? 2.5-3.5 INR *See the pharmacy resource directory (PHRED) for an updated copy of the Tool Book at [email or web address] Current Interpretive Data was last revised 2011. Plasma 02/25/2014 10:0 2 PM CDT Historical Provider LAB BLOOD ORDERABLES Jennifer l Result HISTORICAL RESULTS * Serum magnesium (02/25/2014 10:02 PM CDT) Magnesium 2.1 1.4 - 2.5 mg/dl HISTORICAL RESULTS Serum 02/25/2014 10:0 2 PM CDT Historical Provider LAB BLOOD ORDERABLES Jennifer l Result HISTORICAL RESULTS * (ABNORMAL) Blood cell count [CBC] express (02/25/2014 10:02 PM CDT) WBC 12.7(H) 3.8 - 9.8 K/cumm HISTORICAL RESULTS RBC 3.67(L) 3.90 - 5.00 M/cumm HISTORICAL RESULTS Hgb 10.9(L) 12.1 - 15.1 g/dl HISTORICAL RESULTS Hct 32.6(L) 36.1 - 44.3 % HISTORICAL RESULTS MCV 88.8 80.0 - 97.6 fl HISTORICAL RESULTS MCH 29.6 26.7 - 33.7 pg HISTORICAL RESULTS MCHC 33.4 32.7 - 35.5 g/dl HISTORICAL RESULTS Rdw 15.0(H) 11.8 - 14.6 % HISTORICAL RESULTS Platelets 92(L) 140 - 440 K/cumm HISTORICAL RESULTS MPV 8.8 6.8 - 10.4 fl HISTORICAL RESULTS Blood specimen (specimen) 02/25/2014 10:02 PM CDT Historical Provider LAB BLOOD ORDERABLES Jennifer l Result HISTORICAL RESULTS * XR Chest 1 Vw (02/25/2014 9:15 PM CDT) Anatomical Region Laterality Modality Body, Chest N/A Radiographic Piedad ging 02/25/2014 9:15 PM CDT Narrative 02/26/2014 7:27 AM CDT JENIFFER JOHN M.D. FINAL REPORT ACC# ??Date Time ??Exam [id number] Feb 25, 2014 21:15:00 [id number] Chest 1 view Frontal EXAMINATION: ?? One View Portable Chest IMPRESSION: ?? The endotracheal tube is approximately ??3 centimeters above the coco. A nasogastric tube is present, tip extends at least to stomach. a [place]-Lauro catheter is seen overlying left pulmonary artery however is directed slightly towards the left upper lobe. Left chest tubes in place. Right chest tubes in place. Heart there is mild diffuse interstitial opacity slightly greater on the left than the right likely related to mild edema. There is probably very tiny left apical pneumothorax. Small left effusion is noted . Requested By: SHIRLEY GANT Dictated By: ?? JENIFFER JOHN M.D. ??on Feb ??2013 ??7:27A This document has been electronically signed by: JENIFFER JOHN M.D. on Feb ??2013 ??7:27A Procedure Note Provider, MD Homero - 12/27/2016 JENIFFER JOHN M.D. FINAL REPORT ACC# Date Time Exam [id number] Feb 25, 2014 21:15:00 [id number] Chest 1 view Frontal EXAMINATION: One View Portable Chest IMPRESSION: The endotracheal tube is approximately 3 centimeters above the coco. A nasogastric tube is present, tip extends at least to stomach. a [place]-Lauro catheter is seen overlying left pulmonary artery however is directed slightly towards the left upper lobe. Left chest tubes in place. Right chest tubes in place. Heart there is mild diffuse interstitial opacity slightly greater on the left than the right likely related to mild edema. There is probably very tiny left apical pneumothorax. Small left effusion is noted . Requested By: SHIRLEY GANTNDexPDex Dictated By: JENIFFER JOHN M.D. on Feb 26 2014 7:27A This document has been electronically signed by: JENIFFER JOHN M.D. on Feb 26 2014 7:27A Historical Provider MD IMG XR PROCEDURES Final R esult * Blood glucose, POC (02/25/2014 7:41 PM CDT) Glucose, POC, bld 174 70 - 199 mg/dl HISTORICAL RESULTS Blood specimen (specimen) 02/25/2014 7:41 PM CDT Justino Doyle MD LAB BLOOD ORDERABLES Final Resul t Performing Organization Address [facility] de Phone Number HISTORICAL RESULTS * (ABNORMAL) Blood gas, arterial (02/25/2014 3:40 PM CDT) Pathologist [facility] Ph, art 7.44 7.35 - 7.45 HISTORICAL RESULTS PO2, art 67(L) 80 - 105 mm Hg HISTORICAL RESULTS CO2, calc, art 26 21 - 30 mmol/L HISTORICAL RESULTS A-a gradient 173 mm Hg HISTORI BRUNO RESULTS O2, inspired, %, art 40 % HISTORICAL RESULTS Oxygen (O2), inspired fraction (FiO2) Not Applicable liters HISTORICAL RESULTS PCO2 37 35 - 45 mm Hg HISTORICAL RESULTS Arterial blood 02/25/2014 3: 40 PM CDT Sushant Sim MD PhD LAB BLOOD ORDERABLES Final Result Performing Organization Address [facility] de Phone Number HISTORICAL RESULTS * (ABNORMAL) Blood hemoglobin saturation (02/25/2014 3:40 PM CDT) Pathologist [facility] Hgb estimated, main pulmonary a 9.1(L) 12.1 - 15.1 g/dl HISTORICAL RESULTS OxyHb, main pulmonary a 61.2 % HISTORICAL RESULTS COHb, main pulmonary a 1.2 % HISTORICAL RESULTS MetHb, main pulmonary a 0.9 % HISTORICAL RESULTS O2 content, pulmonary a 7.8 volume % O2 HISTORICAL RESULTS Blood specimen (specimen) 02/25/2014 3:40 PM CDT Historical Provider LAB BLOOD ORDERABLES Jennifer l Result Performing Organization Address [facility] de Phone Number HISTORICAL RESULTS * Blood potassium, mixed venous (02/25/2014 3:40 PM CDT) Potassium, bld 4.1 3.3 - 4.9 mmol/L HISTORICAL RESULTS Mixed venous blood 02/25/2014 3:40 PM CDT Sushant Sim MD PhD LAB BLOOD ORDERABLES Final Result Performing Organization Address [facility] Phone Number HISTORICAL RESULTS * Blood glucose, POC (02/25/2014 3:32 PM CDT) Glucose, POC, bld 147 70 - 199 mg/dl HISTORICAL RESULTS Blood specimen (specimen) 02/25/2014 3:32 PM CDT Justino Doyle MD LAB BLOOD ORDERABLES Final Resul t Performing Organization Address [facility] Phone Number HISTORICAL RESULTS * Blood glucose, POC (02/25/2014 2:11 PM CDT) Glucose, POC, bld 160 70 - 199 mg/dl HISTORICAL RESULTS Blood specimen (specimen) 02/25/2014 2:11 PM CDT Justino Doyle MD LAB BLOOD ORDERABLES Final Resul t Performing Organization Address [facility] Phone Number HISTORICAL RESULTS * Blood glucose, POC (02/25/2014 11:42 AM CDT) Glucose, POC, bld 108 70 - 199 mg/dl HISTORICAL RESULTS Blood specimen (specimen) 02/25/2014 11:42 AM CDT Justino Doyle MD LAB BLOOD ORDERABLES Final Resul t Performing Organization Address [facility] de Phone Number HISTORICAL RESULTS * Blood glucose, POC (02/25/2014 10:02 AM CDT) Glucose, POC, bld 107 70 - 199 mg/dl HISTORICAL RESULTS Blood specimen (specimen) 02/25/2014 10:02 AM CDT Justino Doyle MD LAB BLOOD ORDERABLES Final Resul t Performing Organization Address [facility] Phone Number HISTORICAL RESULTS * (ABNORMAL) Blood hemoglobin saturation (02/25/2014 9:13 AM CDT) Hgb estimated, main pulmonary a 8.7(L) 12.1 - 15.1 g/dl HISTORICAL RESULTS OxyHb, main pulmonary a 52.9 % HISTORICAL RESULTS COHb, main pulmonary a 1.1 % HISTORICAL RESULTS MetHb, main pulmonary a 0.5 % HISTORICAL RESULTS O2 content, pulmonary a 6.5 volume % O2 HISTORICAL RESULTS Blood specimen (specimen) 02/25/2014 9:13 AM CDT Homero Pugh MD LAB BLOOD ORDERABLES Jennifer l Result Performing Organization Address [facility] de Phone Number HISTORICAL RESULTS * Blood potassium, mixed venous (02/25/2014 9:13 AM CDT) Potassium, bld 3.8 3.3 - 4.9 mmol/L HISTORICAL RESULTS Mixed venous blood 02/25/2014 9:13 AM CDT Sushant Sim MD PhD LAB BLOOD ORDERABLES Final Result Performing Organization Address [facility] de Phone Number HISTORICAL RESULTS * Blood glucose, POC (02/25/2014 8:56 AM CDT) Glucose, POC, bld 97 70 - 199 mg/dl HISTORICAL RESULTS Blood specimen (specimen) 02/25/2014 8:56 AM CDT Justino Doyle MD LAB BLOOD ORDERABLES Final Resul t Performing Organization Address [facility] de Phone Number HISTORICAL RESULTS * Blood glucose, POC (02/25/2014 7:35 AM CDT) Glucose, POC, bld 106 70 - 199 mg/dl HISTORICAL RESULTS Blood specimen (specimen) 02/25/2014 7:35 AM CDT Justino Doyle MD LAB BLOOD ORDERABLES Final Resul t Performing Organization Address [facility] de Phone Number HISTORICAL RESULTS * (ABNORMAL) Blood cell count [CBC] express (02/25/2014 6:07 AM CDT) WBC 14.7(H) 3.8 - 9.8 K/cumm HISTORICAL RESULTS RBC 2.94(L) 3.90 - 5.00 M/cumm HISTORICAL RESULTS Hgb 9.0(L) 12.1 - 15.1 g/dl HISTORICAL RESULTS Hct 25.4(L) 36.1 - 44.3 % HISTORICAL RESULTS MCV 86.5 80.0 - 97.6 fl HISTORICAL RESULTS MCH 30.6 26.7 - 33.7 pg HISTORICAL RESULTS MCHC 35.3 32.7 - 35.5 g/dl HISTORICAL RESULTS Rdw 15.0(H) 11.8 - 14.6 % HISTORICAL RESULTS Platelets 106(L) 140 - 440 K/cumm HISTORICAL RESULTS MPV 8.5 6.8 - 10.4 fl HISTORICAL RESULTS Blood specimen (specimen) 02/25/2014 6:07 AM CDT Naga Pérez MD PhD LAB BLOOD ORDERABLES F inal Result Performing Organization Address [facility] de Phone Number HISTORICAL RESULTS * Blood glucose, POC (02/25/2014 6:05 AM CDT) Glucose, POC, bld 136 70 - 199 mg/dl HISTORICAL RESULTS Blood specimen (specimen) 02/25/2014 6:05 AM CDT Justino Doyle MD LAB BLOOD ORDERABLES Final Resul t Performing Organization Address [facility] de Phone Number HISTORICAL RESULTS * Blood potassium, mixed venous (02/25/2014 4:16 AM CDT) Potassium, bld 3.7 3.3 - 4.9 mmol/L HISTORICAL RESULTS Mixed venous blood 02/25/2014 4:16 AM CDT Sushant Sim MD PhD LAB BLOOD ORDERABLES Final Result Performing Organization Address [facility] Phone Number HISTORICAL RESULTS * (ABNORMAL) Blood gas, arterial (02/25/2014 4:16 AM CDT) Ph, art 7.51(H) 7.35 - 7.45 HISTORICAL RESULTS PCO2 33(L) 35 - 45 mm Hg HISTORICAL RESULTS PO2, art 72(L) 80 - 105 mm Hg HISTORICAL RESULTS CO2, calc, art 27 21 - 30 mmol/L HISTORICAL RESULTS A-a gradient 172 mm Hg HISTORI BRUNO RESULTS O2, inspired, %, art 40 % HISTORICAL RESULTS Oxygen (O2), inspired fraction (FiO2) Not Applicable liters HISTORICAL RESULTS Arterial blood 02/25/2014 4: 16 AM CDT Sushant Sim MD PhD LAB BLOOD ORDERABLES Final Result Performing Organization Address [facility] Phone Number HISTORICAL RESULTS * Blood glucose, POC (02/25/2014 4:14 AM CDT) Glucose, POC, bld 130 70 - 199 mg/dl HISTORICAL RESULTS Blood specimen (specimen) 02/25/2014 4:14 AM CDT Justino Doyle MD LAB BLOOD ORDERABLES Final Resul t Performing Organization Address [facility] Phone Number HISTORICAL RESULTS * Blood glucose, POC (02/25/2014 1:22 AM CDT) Glucose, POC, bld 130 70 - 199 mg/dl HISTORICAL RESULTS Blood specimen (specimen) 02/25/2014 1:22 AM CDT Justino Doyle MD LAB BLOOD ORDERABLES Final Resul t Performing Organization Address [facility] de Phone Number HISTORICAL RESULTS * Blood glucose, POC (02/25/2014 12:08 AM CDT) Glucose, POC, bld 131 70 - 199 mg/dl HISTORICAL RESULTS Blood specimen (specimen) 02/25/2014 12:08 AM CDT us Justino Doyle MD LAB BLOOD ORDERABLES Final Resul t HISTORICAL RESULTS * All Microbiology Report Section (02/25/2014 12:00 AM CDT) 02/25/2014 Narrative HISTORICAL RESULTS - 03/04/2014 1:16 PM CDT ? [facility] ?[address] [facility] ?[place], [place] [address] ? Patient Name: ??TRESSA MYERS ? Med Rec Number: [id number] ? Fin Number: ?[id number] ? Date: ?1955 ? Sex/Age: ? Female 59 years ? Admit Date: ?02/23/2014 ? Discharge Date: 03/03/2014 ? Doctor: ?Justino Doyle ? Facility: ?[facility] ? Location: ?OTHER ?* Abnormal ??A Alert ??f Footnote ??^ Corrected ??L Low ??H High ?i Interp Data ??@ Ref Lab ? Chart Type:Cumulative ?* * * * MICROBIOLOGY - BLOOD/STERILE FLUID * * * * ?PROCEDURE: Aerobic, Anaerobic and Mycology Culture, Blood ? SOURCE: Blood ? COLLECTED: 02/25/14 ??2202 ?BODY SITE: Forearm, left ? STARTED: 02/25/14 ??2318 ? FREE TEXT SOURCE: ? FINAL REPORT ? REPORTED: 03/03/14 0435 ? No growth ?* * * ??Interpretive Results ??* * * ? (1)Blood cultures are incubated for five days on a continuously ? monitored blood culture system. ??The first report of a negative ? culture is issued within 24 hours of receipt of the specimen in ? the laboratory. ??Positive culture results are reported as soon ? as they are detected. ??For blood cultures with gram-positive ? cocci, a rapid molecular test for organism identification may be ? performed using the [employer] Nanosphere Gram Positive Blood ? Culture Assay. ??The Nanosphere assay detects microbial DNA in ? positive blood culture broth via hybridization of target DNA to ? capture oligonucleotides on a microarray. ??This assay has been ? cleared by the [place] Food and Drug Administration and ? its performance characteristics have been verified by the ? [facility].Current ? Interpretive Data was last revised on 2014. ? us Historical Provider MD LAB MICROBIOLOGY - GENERA L ORDERABLES Final Result HISTORICAL RESULTS * All Microbiology Report Section (02/25/2014 12:00 AM CDT) 02/25/2014 Narrative HISTORICAL RESULTS - 03/04/2014 1:16 PM CDT ? [facility] ?[facility] ?[place], [place] [address] ? Patient Name: ??TRESSA MYERS ? Med Rec Number: [id number] ? Fin Number: ?[id number] ? Date: ?1955 ? Sex/Age: ? Female 59 years ? Admit Date: ?02/23/2014 ? Discharge Date: 03/03/2014 ? Doctor: ?Doyle , Justino R ? Facility: ?[facility] ? Location: ?OTHER ?* Abnormal ??A Alert ??f Footnote ??^ Corrected ??L Low ??H High ?i Interp Data ??@ Ref Lab ? Chart Type:Cumulative ?* * * * MICROBIOLOGY - BLOOD/STERILE FLUID * * * * ?PROCEDURE: Aerobic, Anaerobic and Mycology Culture, Blood ? SOURCE: Blood ? COLLECTED: 02/25/ ??2202 ?BODY SITE: Forearm, right ? STARTED: // ??2317 ? FREE TEXT SOURCE: ? FINAL REPORT ? REPORTED: 03/03/14 0435 ? No growth ?* * * ??Interpretive Results ??* * * ? (1)Blood cultures are incubated for five days on a continuously ? monitored blood culture system. ??The first report of a negative ? culture is issued within 24 hours of receipt of the specimen in ? the laboratory. ??Positive culture results are reported as soon ? as they are detected. ??For blood cultures with gram-positive ? cocci, a rapid molecular test for organism identification may be ? performed using the [employer] Nanosphere Gram Positive Blood ? Culture Assay. ??The Nanosphere assay detects microbial DNA in ? positive blood culture broth via hybridization of target DNA to ? capture oligonucleotides on a microarray. ??This assay has been ? cleared by the [place] Food and Drug Administration and ? its performance characteristics have been verified by the ? [facility].Current ? Interpretive Data was last revised on 2014. ? us Historical Provider LAB MICROBIOLOGY - GENERA L ORDERABLES Final Result HISTORICAL RESULTS * All Microbiology Report Section (02/25/2014 12:00 AM CDT) 02/25/2014 Narrative HISTORICAL RESULTS - 03/04/2014 1:16 PM CDT ? [facility] ?[facility] ?[place], [place] [address] ? Patient Name: ??TRESSA MYERS ? Med Rec Number: [id number] ? Fin Number: ?[id number] ? Date: ?1955 ? Sex/Age: ? Female 59 years ? Admit Date: ?02/23/2014 ? Discharge Date: 03/03/2014 ? Doctor: ?Doyle , Justino R ? Facility: ?[facility] ? Location: ?OTHER ?* Abnormal ??A Alert ??f Footnote ??^ Corrected ??L Low ??H High ?i Interp Data ??@ Ref Lab ? Chart Type:Cumulative ?* * * * MICROBIOLOGY - URINE * * * * ?PROCEDURE: Urine Culture ? SOURCE: Urine, catheterized ? COLLECTED: 02/25/14 ??2201 ?BODY SITE: ? STARTED: 02/25/14 ??2237 ? FREE TEXT SOURCE: ? FINAL REPORT ? REPORTED: 02/27/14 190 ? Greater than or equal to 5,000 colonies/ml of Yeast us Historical Provider MD LAB MICROBIOLOGY - GENERA L ORDERABLES Final Result HISTORICAL RESULTS * All Microbiology Report Section (02/25/2014 12:00 AM CDT) 02/25/2014 Narrative HISTORICAL RESULTS - 03/04/2014 1:16 PM CDT ? [facility] ?[facility] ?[place], [place] [address] ? Patient Name: ??MYERSTRESSA DIAZ ? Med Rec Number: [id number] ? Fin Number: ?[id number] ? Date: ?1955 ? Sex/Age: ? Female 59 years ? Admit Date: ?02/23/2014 ? Discharge Date: 03/03/2014 ? Doctor: ?Justino Doyle ? Facility: ?[facility] ? Location: ?OTHER ?* Abnormal ??A Alert ??f Footnote ??^ Corrected ??L Low ??H High ?i Interp Data ??@ Ref Lab ? Chart Type:Cumulative ?* * * * MICROBIOLOGY - RESPIRATORY * * * * ?PROCEDURE: Aerobic Culture, Respiratory and Gram Stain ? SOURCE: Tracheal Aspirate ? COLLECTED: 07/02/14 ??2202 ?BODY SITE: ? STARTED: 07/02/14 ??2237 ? FREE TEXT SOURCE: ? DIRECT SPECIMEN EXAMINATION ? Stain ? REPORTED: 02/26/14 0105 ? Rare polymorphonuclear leukocytes seen. ? Few Yeast ? Few squamous epithelial cells seen. ? FINAL REPORT ? REPORTED: 02/28/14 0948 ? Insignificant growth based on current clinical standards. us Historical Provider MD LAB MICROBIOLOGY - GENERA L ORDERABLES Final Result Performing Organization Address [facility] de Phone Number HISTORICAL RESULTS * Blood glucose, POC (02/24/2014 11:13 PM CDT) Glucose, POC, bld 147 70 - 199 mg/dl HISTORICAL RESULTS Blood specimen (specimen) 02/24/2014 11:13 PM CDT Justino Doyle MD LAB BLOOD ORDERABLES Final Resul t Performing Organization Address [facility] de Phone Number HISTORICAL RESULTS * Blood glucose, POC (02/24/2014 10:38 PM CDT) Glucose, POC, bld 145 70 - 199 mg/dl HISTORICAL RESULTS Blood specimen (specimen) 02/24/2014 10:38 PM CDT Justino Doyle MD LAB BLOOD ORDERABLES Final Resul t Performing Organization Address [facility] de Phone Number HISTORICAL RESULTS * (ABNORMAL) Blood hemoglobin saturation (02/24/2014 9:23 PM CDT) Hgb estimated, main pulmonary a 10.0(L) 12.1 - 15.1 g/dl HISTORICAL RESULTS OxyHb, main pulmonary a 57.7 % HISTORICAL RESULTS COHb, main pulmonary a 1.1 % HISTORICAL RESULTS MetHb, main pulmonary a 1.0 % HISTORICAL RESULTS O2 content, pulmonary a 8.1 volume % O2 HISTORICAL RESULTS Blood specimen (specimen) 02/24/2014 9:23 PM CDT Homero Provider MD LAB BLOOD ORDERABLES Jennifer l Result Performing Organization Address [facility] de Phone Number HISTORICAL RESULTS * Blood potassium, mixed venous (02/24/2014 9:23 PM CDT) Potassium, bld 4.0 3.3 - 4.9 mmol/L HISTORICAL RESULTS Mixed venous blood 02/24/2014 9:23 PM CDT Sushant Sim MD PhD LAB BLOOD ORDERABLES Final Result Performing Organization Address [facility] Phone Number HISTORICAL RESULTS * (ABNORMAL) Blood lactic acid (02/24/2014 9:23 PM CDT) Lactic acid 2.6(H) 0.7 - 2.1 mmol/L HISTORICAL RESULTS Blood specimen (specimen) 02/24/2014 9:23 PM CDT Result [facility] Sushant Sim MD PhD LAB BLOOD ORDERABLES Final Result Performing Organization Address [facility] de Phone Number HISTORICAL RESULTS * (ABNORMAL) Blood gas, arterial (02/24/2014 9:23 PM CDT) Ph, art 7.45 7.35 - 7.45 HISTORICAL RESULTS PCO2 36 35 - 45 mm Hg HISTORICAL RESULTS PO2, art 57(L) 80 - 105 mm Hg HISTORICAL RESULTS CO2, calc, art 26 21 - 30 mmol/L HISTORICAL RESULTS A-a gradient 184 mm Hg HISTORI BRUNO RESULTS O2, inspired, %, art 40 % HISTORICAL RESULTS Oxygen (O2), inspired fraction (FiO2) Not Applicable liters HISTORICAL RESULTS Arterial blood 02/24/2014 9: 23 PM CDT us Sushant Sim MD PhD LAB BLOOD ORDERABLES Final Result Performing Organization Address [facility] de Phone Number HISTORICAL RESULTS * Blood calcium, ionized (02/24/2014 9:23 PM CDT) Ca, ionized, bld 4.92 4.50 - 5.10 mg/dl HISTORICAL RESULTS Blood specimen (specimen) 02/24/2014 9:23 PM CDT Sushant Sim MD PhD LAB BLOOD ORDERABLES Final Result Performing Organization Address [facility] de Phone Number HISTORICAL RESULTS * Plasma partial thromboplastin time (PTT) (02/24/2014 9:23 PM CDT) Pathologist [facility] APTT 26.1 25.0 - 37.0 seconds HISTORICAL RESULTS Comment: Interpretive Data Therapeutic heparin range:60.0 - 94.0 sec based on correlation with therapeutic heparin activity range of 0.3 -0.7 Units/mL. Current interpretive data was last revised on 2011. Plasma 02/24/2014 9:23 PM CDT Historical Provider LAB BLOOD ORDERABLES Jennifer l Result Performing Organization Address [facility] Phone Number HISTORICAL RESULTS * (ABNORMAL) Plasma basic metabolic panel (02/24/2014 9:23 PM CDT) Sodium 140 135 - 145 mmol/L HISTORICAL RESULTS K, pl 4.1 3.3 - 4.9 mmol/L HISTORICAL RESULTS Chloride 106 97 - 110 mmol/L HISTORICAL RESULTS CO2 26 22 - 32 mmol/L HISTORICAL RESULTS A. gap 8 0 - 16 mmol/L HISTORICAL RESULTS Glucose 165 70 - 199 mg/dl HISTORICAL RESULTS BUN 10 8 - 25 mg/dl HISTORICAL RESULTS Creatinine 0.53(L) 0.60 - 1.10 mg/dl HISTORICAL RESULTS Calcium 8.7 8.6 - 10.3 mg/dl HISTORICAL RESULTS Plasma 02/24/2014 9:23 PM CDT Historical Provider LAB BLOOD ORDERABLES Jennifer l Result Performing Organization Address [facility]/State/ZIP Co de Phone Number HISTORICAL RESULTS * Plasma prothrombin time (PT) (02/24/2014 9:23 PM CDT) Prothrombin time (PT) 11.8 9.0 - 12.0 seconds HISTORICAL RESULTS INR 1.12 0.90 - 1.20 HISTORIC AL RESULTS Comment: Interpretive Data Inpatient therapeutic ranges* Atrial fibrillation ?2.0-3.0 INR Venous thrombo-embolism ?2.0-3.0 INR Bioprosthetic heart valve ?* Mechanical heart valve, bileaflet or tilting disk,aortic position ? 2.0-3.0 INR All other,or bileaflet or tilting disk, in mitral position ? 2.5-3.5 INR *See the pharmacy resource directory (PHRED) for an updated copy of the Tool Book at [email or web address] Current Interpretive Data was last revised 2011. Plasma 02/24/2014 9:23 PM CDT Result [facility] Historical Provider MD LAB BLOOD ORDERABLES Jennifer l Result Performing Organization Address [facility] de Phone Number HISTORICAL RESULTS * Serum magnesium (02/24/2014 9:23 PM CDT) Magnesium 2.0 1.4 - 2.5 mg/dl HISTORICAL RESULTS Serum 02/24/2014 9:23 PM CDT Result [facility] Historical Provider MD LAB BLOOD ORDERABLES Jennifer l Result Performing Organization Address [facility] de Phone Number HISTORICAL RESULTS * (ABNORMAL) Blood cell count [CBC] express (02/24/2014 9:23 PM CDT) WBC 14.6(H) 3.8 - 9.8 K/cumm HISTORICAL RESULTS RBC 3.04(L) 3.90 - 5.00 M/cumm HISTORICAL RESULTS Hgb 9.2(L) 12.1 - 15.1 g/dl HISTORICAL RESULTS Hct 26.6(L) 36.1 - 44.3 % HISTORICAL RESULTS MCV 87.6 80.0 - 97.6 fl HISTORICAL RESULTS MCH 30.2 26.7 - 33.7 pg HISTORICAL RESULTS MCHC 34.4 32.7 - 35.5 g/dl HISTORICAL RESULTS Rdw 14.8(H) 11.8 - 14.6 % HISTORICAL RESULTS Platelets 116(L) 140 - 440 K/cumm HISTORICAL RESULTS Comment:verified MPV 8.4 6.8 - 10.4 fl HISTORICAL RESULTS Blood specimen (specimen) 02/24/2014 9:23 PM CDT Historical Provider LAB BLOOD ORDERABLES Jennifer l Result HISTORICAL RESULTS * Blood glucose, POC (02/24/2014 9:08 PM CDT) Glucose, POC, bld 175 70 - 199 mg/dl HISTORICAL RESULTS Blood specimen (specimen) 02/24/2014 9:08 PM CDT Justino Doyle MD LAB BLOOD ORDERABLES Final Resul t Performing Organization Address [facility] Co de Phone Number HISTORICAL RESULTS * XR Chest 1 Vw (02/24/2014 8:36 PM CDT) Anatomical Region Laterality Modality Body, Chest N/A Radiographic Piedad ging 02/24/2014 8:36 PM CDT Narrative 02/25/2014 10:20 AM CDT ODESSA BUCKLEY M.D. ODESSA SERRATO M.D. FINAL REPORT The radiology attending physician has personally reviewed this study, and has reviewed and/or edited this written report and agrees with it. ACC# ??Date Time ??Exam [id number] Feb 24, 2014 20:36:00 [id number] Chest 1 view Frontal EXAMINATION: ?? Chest one view IMPRESSION: ?? Comparison 02/23/2014. An endotracheal tube, nasogastric tube, and right internal jugular approach and catheter are again noted. The radiopaque marker corresponding to the patient's intra-aortic balloon pump is noted approximately 8 cm from the top of the aortic arch in the mid to lower descending aorta. Interval decrease in left mid and lower lung opacities is present, and most in keeping with improved pulmonary edema. Minimal right midlung and left lower lung atelectasis remains. No pneumothorax. Cardiac size is unchanged. The above findings were discussed with Sherry ICU nurse caring for the patient by at 847am on 02/25/2014 Requested By: DEYSI WINTERS Dictated By: ?? ODESSA SERRATO M.D. ??on Feb?2013 ??8:49A This document has been electronically signed by: ODESSA BUCKLEY M.D. on Feb?2013 10:20A Procedure Note Provider, MD Homero - 12/27/2016 ODESSA BUCKLEY M.D. ODESSA SERRATO M.D. FINAL REPORT The radiology attending physician has personally reviewed this study, and has reviewed and/or edited this written report and agrees with it. ACC# Date Time Exam [id number] Feb 24, 2014 20:36:00 [id number] Chest 1 view Frontal EXAMINATION: Chest one view IMPRESSION: Comparison 02/23/2014. An endotracheal tube, nasogastric tube, and right internal jugular approach and catheter are again noted. The radiopaque marker corresponding to the patient's intra-aortic balloon pump is noted approximately 8 cm from the top of the aortic arch in the mid to lower descending aorta. Interval decrease in left mid and lower lung opacities is present, and most in keeping with improved pulmonary edema. Minimal right midlung and left lower lung atelectasis remains. No pneumothorax. Cardiac size is unchanged. The above findings were discussed with Sherry ICU nurse caring for the patient by at 847am on 02/25/2014 Requested By: DEYSI WINTERS Dictated By: ODESSA SERRATO M.D. on Feb 25 2014 8:49A This document has been electronically signed by: ODESSA BUCKLEY M.D. on Feb 25 2014 10:20A Historical Provider IMG XR PROCEDURES Final R esult * Blood glucose, POC (02/24/2014 6:17 PM CDT) Glucose, POC, bld 138 70 - 199 mg/dl HISTORICAL RESULTS Blood specimen (specimen) 02/24/2014 6:17 PM CDT Justino Doyle MD LAB BLOOD ORDERABLES Final Resul t Performing Organization Address [facility] de Phone Number HISTORICAL RESULTS * Blood glucose, POC (02/24/2014 4:51 PM CDT) Glucose, POC, bld 126 70 - 199 mg/dl HISTORICAL RESULTS Blood specimen (specimen) 02/24/2014 4:51 PM CDT Justino Doyle MD LAB BLOOD ORDERABLES Final Resul t Performing Organization Address [facility] de Phone Number HISTORICAL RESULTS * Serum magnesium (02/24/2014 3:11 PM CDT) Magnesium 1.9 1.4 - 2.5 mg/dl HISTORICAL RESULTS Serum 02/24/2014 3:11 PM CDT Result [facility] Sushant Sim MD PhD LAB BLOOD ORDERABLES Final Result Performing Organization Address [facility] de Phone Number HISTORICAL RESULTS * Blood potassium, mixed venous (02/24/2014 3:11 PM CDT) Potassium, bld 4.2 3.3 - 4.9 mmol/L HISTORICAL RESULTS Mixed venous blood 02/24/2014 3:11 PM CDT Result [facility] Sushant Sim MD PhD LAB BLOOD ORDERABLES Final Result Performing Organization Address [facility] de Phone Number HISTORICAL RESULTS * (ABNORMAL) Blood calcium, ionized (02/24/2014 3:11 PM CDT) Ca, ionized, bld 5.20(H) 4.50 - 5.10 mg/dl HISTORICAL RESULTS Blood specimen (specimen) 02/24/2014 3:11 PM CDT Sushant Sim MD PhD LAB BLOOD ORDERABLES Final Result Performing Organization Address [facility] de Phone Number HISTORICAL RESULTS * Blood glucose, POC (02/24/2014 2:17 PM CDT) Glucose, POC, bld 123 70 - 199 mg/dl HISTORICAL RESULTS Blood specimen (specimen) 02/24/2014 2:17 PM CDT Justino Doyle MD LAB BLOOD ORDERABLES Final Resul t Performing Organization Address [facility] de Phone Number HISTORICAL RESULTS * Plasma partial thromboplastin time (PTT) (02/24/2014 11:37 AM CDT) APTT 25.7 25.0 - 37.0 seconds HISTORICAL RESULTS Comment: Interpretive Data Therapeutic heparin range:60.0 - 94.0 sec based on correlation with therapeutic heparin activity range of 0.3 -0.7 Units/mL. Current interpretive data was last revised on 2011. Plasma 02/24/2014 11:3 7 AM CDT Historical Provider LAB BLOOD ORDERABLES Jennifer l Result Performing Organization Address [facility] de Phone Number HISTORICAL RESULTS * (ABNORMAL) Plasma prothrombin time (PT) (02/24/2014 11:37 AM CDT) Prothrombin time (PT) 12.1(H) 9.0 - 12.0 seconds HISTORICAL RESULTS INR 1.15 0.90 - 1.20 HISTORIC AL RESULTS Comment: Interpretive Data Inpatient therapeutic ranges* Atrial fibrillation ?2.0-3.0 INR Venous thrombo-embolism ?2.0-3.0 INR Bioprosthetic heart valve ?* Mechanical heart valve, bileaflet or tilting disk,aortic position ? 2.0-3.0 INR All other,or bileaflet or tilting disk, in mitral position ? 2.5-3.5 INR *See the pharmacy resource directory (PHRED) for an updated copy of the Tool Book at [email or web address] Current Interpretive Data was last revised 2011. Plasma 02/24/2014 11:3 7 AM CDT Historical Provider LAB BLOOD ORDERABLES Jennifer l Result HISTORICAL RESULTS * (ABNORMAL) Blood cell count [CBC] express (02/24/2014 11:37 AM CDT) WBC 14.3(H) 3.8 - 9.8 K/cumm HISTORICAL RESULTS RBC 3.38(L) 3.90 - 5.00 M/cumm HISTORICAL RESULTS Hgb 10.3(L) 12.1 - 15.1 g/dl HISTORICAL RESULTS Hct 29.1(L) 36.1 - 44.3 % HISTORICAL RESULTS MCV 86.1 80.0 - 97.6 fl HISTORICAL RESULTS MCH 30.3 26.7 - 33.7 pg HISTORICAL RESULTS MCHC 35.2 32.7 - 35.5 g/dl HISTORICAL RESULTS Rdw 15.2(H) 11.8 - 14.6 % HISTORICAL RESULTS Platelets 72(L) 140 - 440 K/cumm HISTORICAL RESULTS MPV 8.3 6.8 - 10.4 fl HISTORICAL RESULTS Blood specimen (specimen) 02/24/2014 11:37 AM CDT Historical Provider LAB BLOOD ORDERABLES Jennifer l Result Performing Organization Address [facility] de Phone Number HISTORICAL RESULTS * Blood potassium, mixed venous (02/24/2014 11:37 AM CDT) Potassium, bld 4.3 3.3 - 4.9 mmol/L HISTORICAL RESULTS Mixed venous blood 02/24/2014 11:37 AM CDT Sushant Sim MD PhD LAB BLOOD ORDERABLES Final Result Performing Organization Address [facility] de Phone Number HISTORICAL RESULTS * (ABNORMAL) Blood gas, arterial (02/24/2014 11:37 AM CDT) Ph, art 7.46(H) 7.35 - 7.45 HISTORICAL RESULTS PCO2 34(L) 35 - 45 mm Hg HISTORICAL RESULTS PO2, art 72(L) 80 - 105 mm Hg HISTORICAL RESULTS CO2, calc, art 25 21 - 30 mmol/L HISTORICAL RESULTS A-a gradient 170 mm Hg HISTORI BRUNO RESULTS O2, inspired, %, art 40 % HISTORICAL RESULTS Oxygen (O2), inspired fraction (FiO2) Not Applicable liters HISTORICAL RESULTS Arterial blood 02/24/2014 11 :37 AM CDT Sushant Sim MD PhD LAB BLOOD ORDERABLES Final Result Performing Organization Address [facility] de Phone Number HISTORICAL RESULTS * Blood glucose, POC (02/24/2014 11:35 AM CDT) Glucose, POC, bld 146 70 - 199 mg/dl HISTORICAL RESULTS Blood specimen (specimen) 02/24/2014 11:35 AM CDT Justino Doyle MD LAB BLOOD ORDERABLES Final Resul t Performing Organization Address [facility] de Phone Number HISTORICAL RESULTS * Blood glucose, POC (02/24/2014 10:18 AM CDT) Glucose, POC, bld 153 70 - 199 mg/dl HISTORICAL RESULTS Blood specimen (specimen) 02/24/2014 10:18 AM CDT Justino Doyle MD LAB BLOOD ORDERABLES Final Resul t Performing Organization Address [facility] de Phone Number HISTORICAL RESULTS * (ABNORMAL) Blood hemoglobin saturation (02/24/2014 8:10 AM CDT) Hgb estimated, main pulmonary a 9.4(L) 12.1 - 15.1 g/dl HISTORICAL RESULTS OxyHb, main pulmonary a 59.0 % HISTORICAL RESULTS COHb, main pulmonary a 1.2 % HISTORICAL RESULTS MetHb, main pulmonary a 0.6 % HISTORICAL RESULTS O2 content, pulmonary a 7.8 volume % O2 HISTORICAL RESULTS Blood specimen (specimen) 02/24/2014 8:10 AM CDT Homero Pugh MD LAB BLOOD ORDERABLES Jennifer l Result Performing Organization Address [facility] Phone Number HISTORICAL RESULTS * Blood potassium, mixed venous (02/24/2014 8:10 AM CDT) Potassium, bld 4.2 3.3 - 4.9 mmol/L HISTORICAL RESULTS Mixed venous blood 02/24/2014 8:10 AM CDT Sushant Sim MD PhD LAB BLOOD ORDERABLES Final Result Performing Organization Address [facility] de Phone Number HISTORICAL RESULTS * (ABNORMAL) Blood lactic acid (02/24/2014 8:10 AM CDT) Lactic acid 3.0(H) 0.7 - 2.1 mmol/L HISTORICAL RESULTS Blood specimen (specimen) 02/24/2014 8:10 AM CDT Sushant Sim MD PhD LAB BLOOD ORDERABLES Final Result Performing Organization Address [facility] de Phone Number HISTORICAL RESULTS * (ABNORMAL) Blood gas, arterial (02/24/2014 8:10 AM CDT) Ph, art 7.46(H) 7.35 - 7.45 HISTORICAL RESULTS PCO2 35 35 - 45 mm Hg HISTORICAL RESULTS PO2, art 68(L) 80 - 105 mm Hg HISTORICAL RESULTS CO2, calc, art 26 21 - 30 mmol/L HISTORICAL RESULTS A-a gradient 173 mm Hg HISTORI BRUNO RESULTS O2, inspired, %, art 40 % HISTORICAL RESULTS Oxygen (O2), inspired fraction (FiO2) Not Applicable liters HISTORICAL RESULTS Arterial blood 02/24/2014 8: 10 AM CDT Sushant Sim MD PhD LAB BLOOD ORDERABLES Final Result Performing Organization Address [facility] de Phone Number HISTORICAL RESULTS * Blood calcium, ionized (02/24/2014 8:10 AM CDT) Ca, ionized, bld 4.59 4.50 - 5.10 mg/dl HISTORICAL RESULTS Blood specimen (specimen) 02/24/2014 8:10 AM CDT Sushant Sim MD PhD LAB BLOOD ORDERABLES Final Result Performing Organization Address [facility] de Phone Number HISTORICAL RESULTS * Blood glucose, POC (02/24/2014 8:03 AM CDT) Glucose, POC, bld 135 70 - 199 mg/dl HISTORICAL RESULTS Blood specimen (specimen) 02/24/2014 8:03 AM CDT Justino Doyle MD LAB BLOOD ORDERABLES Final Resul t Performing Organization Address [facility] de Phone Number HISTORICAL RESULTS * Blood glucose, POC (02/24/2014 6:00 AM CDT) Glucose, POC, bld 130 70 - 199 mg/dl HISTORICAL RESULTS Blood specimen (specimen) 02/24/2014 6:00 AM CDT Justino Doyle MD LAB BLOOD ORDERABLES Final Resul t Performing Organization Address [facility] de Phone Number HISTORICAL RESULTS * Blood glucose, POC (02/24/2014 3:53 AM CDT) Glucose, POC, bld 114 70 - 199 mg/dl HISTORICAL RESULTS Blood specimen (specimen) 02/24/2014 3:53 AM CDT Justino Doyle MD LAB BLOOD ORDERABLES Final Resul t Performing Organization Address [facility] de Phone Number HISTORICAL RESULTS * Blood glucose, POC (02/24/2014 2:03 AM CDT) Glucose, POC, bld 152 70 - 199 mg/dl HISTORICAL RESULTS Blood specimen (specimen) 02/24/2014 2:03 AM CDT Justino Doyle MD LAB BLOOD ORDERABLES Final Resul t Performing Organization Address [facility] de Phone Number HISTORICAL RESULTS * ELECTROCARDIOGRAPHY (ECG) (02/24/2014) Narrative 02/24/2014 Ordered by an unspecified provider. Historical Provider ECG ORDERABLES Final Res ult * Critical result call back (02/23/2014 11:59 PM CDT) Date notified 02/24/2014 HISTO RICAL RESULTS Time notified 0020 HISTOR ICAL RESULTS Test name lactate wb HISTORICA L RESULTS Called to marian brown HISTORICAL RESULTS Credentials RN HISTORIC AL RESULTS Called by lrw HISTORICAL RESULTS No specimen 02/23/2014 11:5 9 PM CDT Sushant Sim MD PhD LAB BLOOD ORDERABLES Final Result Performing Organization Address [facility] de Phone Number HISTORICAL RESULTS * (ABNORMAL) Blood lactic acid (02/23/2014 11:59 PM CDT) Lactic acid 4.2(C) 0.7 - 2.1 mmol/L HISTORICAL RESULTS Blood specimen (specimen) 02/23/2014 11:59 PM CDT Sushant Sim MD PhD LAB BLOOD ORDERABLES Final Result Performing Organization Address [facility] de Phone Number HISTORICAL RESULTS * (ABNORMAL) Blood gas, arterial (02/23/2014 11:59 PM CDT) CO2, calc, art 22 21 - 30 mmol/L HISTORICAL RESULTS Ph, art 7.31(L) 7.35 - 7.45 HISTORICAL RESULTS PCO2 43 35 - 45 mm Hg HISTORICAL RESULTS PO2, art 130(H) 80 - 105 mm Hg HISTORICAL RESULTS O2, inspired, %, art Not Applicable % HISTORICAL RESULTS A-a gradient Not Applicable mm Hg HI STORICAL RESULTS Oxygen (O2), inspired fraction (FiO2) Not Applicable liters HISTORICAL RESULTS Arterial blood 02/23/2014 11 :59 PM CDT Sushant Sim MD PhD LAB BLOOD ORDERABLES Final Result Performing Organization Address [facility] de Phone Number HISTORICAL RESULTS * Blood potassium, mixed venous (02/23/2014 11:59 PM CDT) Potassium, bld 4.1 3.3 - 4.9 mmol/L HISTORICAL RESULTS Mixed venous blood 02/23/2014 11:59 PM CDT Sushant Sim MD PhD LAB BLOOD ORDERABLES Final Result Performing Organization Address [facility] de Phone Number HISTORICAL RESULTS * (ABNORMAL) Blood cell count [CBC] express (02/23/2014 11:59 PM CDT) WBC 12.0(H) 3.8 - 9.8 K/cumm HISTORICAL RESULTS MPV 8.4 6.8 - 10.4 fl HISTORICAL RESULTS RBC 3.48(L) 3.90 - 5.00 M/cumm HISTORICAL RESULTS Hgb 10.1(L) 12.1 - 15.1 g/dl HISTORICAL RESULTS Hct 30.6(L) 36.1 - 44.3 % HISTORICAL RESULTS MCV 88.1 80.0 - 97.6 fl HISTORICAL RESULTS MCH 29.0 26.7 - 33.7 pg HISTORICAL RESULTS MCHC 32.9 32.7 - 35.5 g/dl HISTORICAL RESULTS Rdw 14.8(H) 11.8 - 14.6 % HISTORICAL RESULTS Platelets 93(L) 140 - 440 K/cumm HISTORICAL RESULTS Blood specimen (specimen) 02/23/2014 11:59 PM CDT Juan Berrios [employer] LAB BLOOD ORDERABLES Final Result Performing Organization Address [facility] de Phone Number HISTORICAL RESULTS * Blood glucose, POC (02/23/2014 11:57 PM CDT) Glucose, POC, bld 171 70 - 199 mg/dl HISTORICAL RESULTS Blood specimen (specimen) 02/23/2014 11:57 PM CDT Justino Doyle MD LAB BLOOD ORDERABLES Final Resul t Performing Organization Address [facility] de Phone Number HISTORICAL RESULTS * Blood glucose, POC (02/23/2014 10:13 PM CDT) Glucose, POC, bld 190 70 - 199 mg/dl HISTORICAL RESULTS Blood specimen (specimen) 02/23/2014 10:13 PM CDT Justino Doyle MD LAB BLOOD ORDERABLES Final Resul t Performing Organization Address [facility] de Phone Number HISTORICAL RESULTS * (ABNORMAL) Blood gas, arterial (02/23/2014 9:22 PM CDT) Ph, art 7.28(L) 7.35 - 7.45 HISTORICAL RESULTS PCO2 44 35 - 45 mm Hg HISTORICAL RESULTS PO2, art 117(H) 80 - 105 mm Hg HISTORICAL RESULTS CO2, calc, art 21 21 - 30 mmol/L HISTORICAL RESULTS A-a gradient 323 mm Hg HISTORI BRUNO RESULTS O2, inspired, %, art 70 % HISTORICAL RESULTS Oxygen (O2), inspired fraction (FiO2) Not Applicable liters HISTORICAL RESULTS Arterial blood 02/23/2014 9: 22 PM CDT us Sushant Sim MD PhD LAB BLOOD ORDERABLES Final Result Performing Organization Address [facility] Co de Phone Number HISTORICAL RESULTS * Blood glucose, POC (02/23/2014 9:12 PM CDT) Glucose, POC, bld 196 70 - 199 mg/dl HISTORICAL RESULTS Blood specimen (specimen) 02/23/2014 9:12 PM CDT us Justino Doyle MD LAB BLOOD ORDERABLES Final Resul t Performing Organization Address [facility] Co de Phone Number HISTORICAL RESULTS * (ABNORMAL) Blood glucose, POC (02/23/2014 8:27 PM CDT) Glucose, POC, bld 207(H) 70 - 199 mg/dl HISTORICAL RESULTS Blood specimen (specimen) 02/23/2014 8:27 PM CDT Justino Doyle MD LAB BLOOD ORDERABLES Final Resul t Performing Organization Address [facility] Co de Phone Number HISTORICAL RESULTS * Blood potassium, mixed venous (02/23/2014 7:15 PM CDT) Potassium, bld 3.6 3.3 - 4.9 mmol/L HISTORICAL RESULTS Mixed venous blood 02/23/2014 7:15 PM CDT Historical Provider LAB BLOOD ORDERABLES Jennifer l Result Performing Organization Address [facility] Co de Phone Number HISTORICAL RESULTS * Critical result call back (02/23/2014 7:15 PM CDT) Date notified 02/23/2014 HISTO RICAL RESULTS Time notified 1933 HISTOR ICAL RESULTS Test name pH ICA WB HISTORICAL RESULTS Called to Marian Brown HISTORICAL RESULTS Credentials RN HISTORIC AL RESULTS Called by llr HISTORICAL RESULTS No specimen 02/23/2014 7:15 PM CDT Historical Provider LAB BLOOD ORDERABLES Jennifer l Result Performing Organization Address [facility] Co de Phone Number HISTORICAL RESULTS * Blood calcium, ionized (02/23/2014 7:15 PM CDT) Ca, ionized, bld 4.88 4.50 - 5.10 mg/dl HISTORICAL RESULTS Blood specimen (specimen) 02/23/2014 7:15 PM CDT Result [facility] Historical Provider LAB BLOOD ORDERABLES Jennifer l Result Performing Organization Address [facility] de Phone Number HISTORICAL RESULTS * (ABNORMAL) Blood glucose, POC (02/23/2014 7:12 PM CDT) Pathologist [facility] Glucose, POC, bld 238(H) 70 - 199 mg/dl HISTORICAL RESULTS Blood specimen (specimen) 02/23/2014 7:12 PM CDT Result [facility] Justino Doyle MD LAB BLOOD ORDERABLES Final Resul t Performing Organization Address [facility] de Phone Number HISTORICAL RESULTS * Methicillin-resistant Staphylococcus aureus (MRSA) surveillance culture (02/23/2014 7:09 PM CDT) Nasal (Unknown) 02/23/2014 7 :09 PM CDT 02/24/2014 1:39 AM CDT Impressions HISTORICAL RESULTS - 02/25/2014 7:29 AM CDT This test is for Infection Prevention surveillance; no charge to the patient. Narrative HISTORICAL RESULTS - 02/25/2014 7:29 AM CDT Negative Historical Provider LAB MICROBIOLOGY - GENERA L ORDERABLES Final Result Performing Organization Address [facility] de Phone Number HISTORICAL RESULTS * (ABNORMAL) Blood hemoglobin saturation (02/23/2014 7:09 PM CDT) Hgb estimated, main pulmonary a 9.5(L) 12.1 - 15.1 g/dl HISTORICAL RESULTS OxyHb, main pulmonary a 74.0 % HISTORICAL RESULTS COHb, main pulmonary a 1.6 % HISTORICAL RESULTS MetHb, main pulmonary a 0.9 % HISTORICAL RESULTS O2 content, pulmonary a 9.9 volume % O2 HISTORICAL RESULTS Blood specimen (specimen) 02/23/2014 7:09 PM CDT Result [facility] Provider MD LAB BLOOD ORDERABLES Jennifer l Result Performing Organization Address [facility] de Phone Number HISTORICAL RESULTS * (ABNORMAL) Plasma partial thromboplastin time (PTT) (02/23/2014 7:08 PM CDT) APTT 43.3(H) 25.0 - 37.0 seconds HISTORICAL RESULTS Comment: Interpretive Data Therapeutic heparin range:60.0 - 94.0 sec based on correlation with therapeutic heparin activity range of 0.3 -0.7 Units/mL. Current interpretive data was last revised on 2011. Plasma 02/23/2014 7:08 PM CDT Result [facility] Historical Provider MD LAB BLOOD ORDERABLES Jennifer l Result Performing Organization Address [facility] de Phone Number HISTORICAL RESULTS * (ABNORMAL) Plasma prothrombin time (PT) (02/23/2014 7:08 PM CDT) Prothrombin time (PT) 12.9(H) 9.0 - 12.0 seconds HISTORICAL RESULTS INR 1.22(H) 0.90 - 1.20 HISTORIC AL RESULTS Comment: Interpretive Data Inpatient therapeutic ranges* Atrial fibrillation ?2.0-3.0 INR Venous thrombo-embolism ?2.0-3.0 INR Bioprosthetic heart valve ?* Mechanical heart valve, bileaflet or tilting disk,aortic position ? 2.0-3.0 INR All other,or bileaflet or tilting disk, in mitral position ? 2.5-3.5 INR *See the pharmacy resource directory (PHRED) for an updated copy of the Tool Book at [email or web address] Current Interpretive Data was last revised 2011. Plasma 02/23/2014 7:08 PM CDT us Historical Provider MD LAB BLOOD ORDERABLES Jennifer l Result Performing Organization Address City/[facility]/ZIP Co de Phone Number HISTORICAL RESULTS * (ABNORMAL) Plasma comprehensive metabolic panel (02/23/2014 7:08 PM CDT) Sodium 149(H) 135 - 145 mmol/L HISTORICAL RESULTS K, pl 3.7 3.3 - 4.9 mmol/L HISTORICAL RESULTS Chloride 114(H) 97 - 110 mmol/L HISTORICAL RESULTS CO2 23 22 - 32 mmol/L HISTORICAL RESULTS Glucose 237(H) 70 - 199 mg/dl HISTORICAL RESULTS BUN 19 8 - 25 mg/dl HISTORICAL RESULTS Creatinine 0.68 0.60 - 1.10 mg/dl HISTORICAL RESULTS Calcium 8.4(L) 8.6 - 10.3 mg/dl HISTORICAL RESULTS Protein, pl 4.6(L) 6.5 - 8.5 g/dl HISTORICAL RESULTS Alb 3.1(L) 3.6 - 5.0 g/dl HISTORICAL RESULTS Bilirubin 0.7 0.3 - 1.1 mg/dl HISTORICAL RESULTS Alk phos 39 38 - 126 Units/L HISTORICAL RESULTS AST 34 11 - 47 Units/L HISTORICAL RESULTS ALT 30 7 - 53 Units/L HISTORICAL RESULTS A. gap 12 0 - 16 mmol/L HISTORICAL RESULTS Plasma 02/23/2014 7:08 PM CDT us Juan Berrios FILTER PRESS PUMPER LAB BLOOD ORDERABLES Final Result Performing Organization Address City/[facility] Co de Phone Number HISTORICAL RESULTS * (ABNORMAL) Serum lipid panel (02/23/2014 7:08 PM CDT) Cholesterol 75 0 - 200 mg/dl HISTORICAL RESULTS Comment: Interpretive Data Desirable: ?<200 mg/dL Borderline high: ??200-239 mg/dL High: ? >240 mg/dL Literature Reference: National Cholesterol Education Program (NCEP) Expert Panel on Detection, Evaluation, and Treatment of High Blood Cholesterol in Adults (Adult Treatment Panel III). ??Circulation 2004; 110:227. Current interpretive data was last revised on 2005. Triglycerides 209(H) 0 - 150 mg/dl HISTORICAL RESULTS Comment: Interpretive Data Desirable: ? < 150 mg/dL Borderline High: ? 150 - 199 mg/dL High: ?> 200 mg/dL Literature Reference: See Cholesterol Current interpretive data was last revised on 07. LDL 15 0 - 129 mg/dl HISTORICAL RESULTS Comment: Interpretive Data Optimal: ? < 100 mg/dL Near Optimal: ?100 - 129 mg/dL Borderline High: ?? 130 - 159 mg/dL High: ?> 160 mg/dL Literature Reference: See Cholesterol Current interpretive data was last revised on 07. HDL 18(L) 40 - 199 mg/dl HISTORICAL RESULTS Comment: Interpretive Data Less than 40 mg/dL - low; A major risk factor for heart disease. Greater than or equal to 60 mg/dL - High; ??considered protective of heart disease. Literature Reference: See Cholesterol Current interpretive data was last revised on 2008. Non-HDL cholesterol, calculated 57 mg/dl HISTORICAL RESULTS Comment: Interpretive Data When triglycerides are >200 mg/dL, non-HDL C is a secondary target of therapy, with a goal 30 mg/dL higher than the identified LDL-C goal. Reference: ??See Cholesterol Reference. Current interpretive data was last revised 2012. Serum 02/23/2014 7:08 PM CDT us Juan Berrios FILTER [employer]ESS PU[employer]ER LAB BLOOD ORDERABLES Final Result HISTORICAL RESULTS * Plasma phosphorus (02/23/2014 7:08 PM CDT) Phosphorus, pl 3.1 2.3 - 4.3 mg/dl HISTORICAL RESULTS Plasma 02/23/2014 7:08 PM CDT Historical Provider MD LAB BLOOD ORDERABLES Jennifer l Result Performing Organization Address [facility] de Phone Number HISTORICAL RESULTS * Serum magnesium (02/23/2014 7:08 PM CDT) Magnesium 2.3 1.4 - 2.5 mg/dl HISTORICAL RESULTS Serum 02/23/2014 7:08 PM CDT Historical Provider LAB BLOOD ORDERABLES Jennifer l Result Performing Organization Address [facility] de Phone Number HISTORICAL RESULTS * Critical result call back (02/23/2014 7:08 PM CDT) Date notified 02/23/2014 HISTO RICAL RESULTS Time notified 1933 HISTOR ICAL RESULTS Test name Lactate Whole Blood HISTORICAL RESULTS Called to Marian Brown HISTORICAL RESULTS Credentials RN HISTORIC AL RESULTS Called by llr HISTORICAL RESULTS No specimen 02/23/2014 7:08 PM CDT Result [facility] Juan Berrios FILTER [employer]ESS PUMPER LAB BLOOD ORDERABLES Final Result Performing Organization Address [facility] de Phone Number HISTORICAL RESULTS * (ABNORMAL) Blood lactic acid (02/23/2014 7:08 PM CDT) Lactic acid 5.8(C) 0.7 - 2.1 mmol/L HISTORICAL RESULTS Blood specimen (specimen) 02/23/2014 7:08 PM CDT Result [facility] Juan Berrios FILTER PRESS PUMPER LAB BLOOD ORDERABLES Final Result Performing Organization Address [facility] Co de Phone Number HISTORICAL RESULTS * (ABNORMAL) Blood gas, arterial (02/23/2014 7:08 PM CDT) CO2, calc, art 22 21 - 30 mmol/L HISTORICAL RESULTS Ph, art 7.23(L) 7.35 - 7.45 HISTORICAL RESULTS A-a gradient 410 mm Hg HISTORI BRUNO RESULTS PCO2 52(H) 35 - 45 mm Hg HISTORICAL RESULTS O2, inspired, %, art 100 % HISTORICAL RESULTS PO2, art 233(H) 80 - 105 mm Hg HISTORICAL RESULTS Oxygen (O2), inspired fraction (FiO2) Not Applicable liters HISTORICAL RESULTS Arterial blood 02/23/2014 7: 08 PM CDT Juan Berrios FILTER [employer] PUMPER LAB BLOOD ORDERABLES Final Result HISTORICAL RESULTS * (ABNORMAL) Blood cell count [CBC] express (02/23/2014 7:08 PM CDT) WBC 11.5(H) 3.8 - 9.8 K/cumm HISTORICAL RESULTS RBC 3.25(L) 3.90 - 5.00 M/cumm HISTORICAL RESULTS Hgb 9.5(L) 12.1 - 15.1 g/dl HISTORICAL RESULTS Hct 28.5(L) 36.1 - 44.3 % HISTORICAL RESULTS MCV 87.7 80.0 - 97.6 fl HISTORICAL RESULTS MCH 29.3 26.7 - 33.7 pg HISTORICAL RESULTS MCHC 33.4 32.7 - 35.5 g/dl HISTORICAL RESULTS Rdw 14.4 11.8 - 14.6 % HISTORICAL RESULTS Platelets 83(L) 140 - 440 K/cumm HISTORICAL RESULTS Comment:{No clot detected in sample.} MPV 7.5 6.8 - 10.4 fl HISTORICAL RESULTS Blood specimen (specimen) 02/23/2014 7:08 PM CDT Juan Berrios FILTER [employer] PU[employer]ER LAB BLOOD ORDERABLES Final Result HISTORICAL RESULTS * XR Chest 1 Vw (02/23/2014 6:54 PM CDT) Anatomical Region Laterality Modality Body, Chest N/A Radiographic Piedad ging 02/23/2014 6:54 PM CDT Narrative 02/24/2014 7:00 AM CDT MARCO MARTE M.D. FINAL REPORT ACC# ??Date Time ??Exam [id number] Feb 23, 2014 18:54:00 [id number] Chest 1 view Frontal EXAMINATION: ?? 1. Chest 1 view, portable COMPARISON: 02/23/2014 IMPRESSION: ?? Endotracheal tube tip is 4 cm above the Coco PICC nasogastric tube courses into the stomach. Right internal jugular [place]-Lauro catheter extends to the main pulmonary artery. Bilateral thoracostomy tubes are in place. Median sternotomy changes are noted. Heart normal in size. Small posterior layering left pleural effusion stable. No pneumothorax. Minimal asymmetric left perihilar pulmonary edema. Stable left basilar atelectasis. Requested By: ISAIAH MCALLISTER M.D. Dictated By: ?? MARCO MARTE M.D. ??on Feb ??2013 ??7:00A This document has been electronically signed by: MARCO MARTE M.D. on Feb?2013 ??7:00A Procedure Note Provider, MD Homero - 12/27/2016 MRACO MARTE M.D. FINAL REPORT ACC# Date Time Exam [id number] Feb 23, 2014 18:54:00 [id number] Chest 1 view Frontal EXAMINATION: 1. Chest 1 view, portable COMPARISON: 02/23/2014 IMPRESSION: Endotracheal tube tip is 4 cm above the [place] PICC nasogastric tube courses into the stomach. Right internal jugular [place]-Lauro catheter extends to the main pulmonary artery. Bilateral thoracostomy tubes are in place. Median sternotomy changes are noted. Heart normal in size. Small posterior layering left pleural effusion stable. No pneumothorax. Minimal asymmetric left perihilar pulmonary edema. Stable left basilar atelectasis. Requested By: ISAIAH MCALLISTER M.D. Dictated By: MARCO MARTE M.D. on Feb 24 2014 7:00A This document has been electronically signed by: MARCO MARTE M.D. on Feb 24 2014 7:00A Historical Provider IMFran XR PROCEDURES Final R esult * (ABNORMAL) Blood glucose, POC (02/23/2014 6:52 PM CDT) Glucose, POC, bld 247(H) 70 - 199 mg/dl HISTORICAL RESULTS Blood specimen (specimen) 02/23/2014 6:52 PM CDT Justino Doyle MD LAB BLOOD ORDERABLES Final Resul t HISTORICAL RESULTS * (ABNORMAL) Blood gas, point of care, arterial (02/23/2014 6:28 PM CDT) Ph, art 7.26(L) 7.35 - 7.45 HISTORICAL RESULTS PCO2 49(H) 35 - 45 mm Hg HISTORICAL RESULTS PO2, art 53(L) 80 - 105 mm Hg HISTORICAL RESULTS Sodium, bld 146(H) 135 - 145 mmol/L HISTORICAL RESULTS Potassium, bld 4.3 3.3 - 4.9 mmol/L HISTORICAL RESULTS Ca, ionized, bld 4.89 4.50 - 5.10 mg/dl HISTORICAL RESULTS Hct 30.0(L) 36.1 - 44.3 % HISTORICAL RESULTS Glu, art 245(H) 70 - 199 mg/dl HISTORICAL RESULTS HCO3, art 22 20 - 30 mmol/L HISTORICAL RESULTS CO2, calc, art 24 22 - 32 mmol/L HISTORICAL RESULTS BE, art -5.0 mmol/L HISTORICAL RESULTS O2 sat, art 81(L) 95 - 98 % HISTORIC AL RESULTS Arterial blood 02/23/2014 6: 28 PM CDT Justino Doyle MD LAB BLOOD ORDERABLES Final Resul t HISTORICAL RESULTS * (ABNORMAL) Blood platelet, hematocrit Point of Care (02/23/2014 6:27 PM CDT) Hct 28.8(L) 36.1 - 44.3 % HISTORICAL RESULTS Platelets 100(L) 140 - 440 K/cumm HISTORICAL RESULTS Blood specimen (specimen) 02/23/2014 6:27 PM CDT Justino Doyle MD LAB BLOOD ORDERABLES Final Resul t Performing Organization Address [facility] Phone Number HISTORICAL RESULTS * (ABNORMAL) Blood platelet, hematocrit Point of Care (02/23/2014 5:35 PM CDT) Hct 29.4(L) 36.1 - 44.3 % HISTORICAL RESULTS Platelets 132(L) 140 - 440 K/cumm HISTORICAL RESULTS Blood specimen (specimen) 02/23/2014 5:35 PM CDT Result [facility] Justino Doyle MD LAB BLOOD ORDERABLES Final Resul t Performing Organization Address [facility] Phone Number HISTORICAL RESULTS * (ABNORMAL) Blood prothrombin time (PT) (02/23/2014 5:31 PM CDT) PT 26.6(H) 12.1 - 17.0 seconds HISTORICAL RESULTS INR 2.0(H) 1.0 - 1.3 HISTORICAL RESULTS Blood specimen (specimen) 02/23/2014 5:31 PM CDT Result [facility] Justino Doyle MD LAB BLOOD ORDERABLES Final Resul t Performing Organization Address [facility] Phone Number HISTORICAL RESULTS * (ABNORMAL) Plasma partial thromboplastin time (PTT) (02/23/2014 5:27 PM CDT) APTT 72.4(H) 29.3 - 45.4 seconds HISTORICAL RESULTS Plasma 02/23/2014 5:27 PM CDT Result [facility] Justino Doyle MD LAB BLOOD ORDERABLES Final Resul t Performing Organization Address [facility] Phone Number HISTORICAL RESULTS * (ABNORMAL) Blood gas, point of care, arterial (02/23/2014 5:19 PM CDT) Ph, art 7.16(C) 7.35 - 7.45 HISTORICAL RESULTS PCO2 38 35 - 45 mm Hg HISTORICAL RESULTS PO2, art 110(H) 80 - 105 mm Hg HISTORICAL RESULTS Sodium, bld 146(H) 135 - 145 mmol/L HISTORICAL RESULTS Potassium, bld 3.1(L) 3.3 - 4.9 mmol/L HISTORICAL RESULTS Ca, ionized, bld 3.65(L) 4.50 - 5.10 mg/dl HISTORICAL RESULTS Hct 25.0(L) 36.1 - 44.3 % HISTORICAL RESULTS Glu, art 183 70 - 199 mg/dl HISTORICAL RESULTS HCO3, art 14(L) 20 - 30 mmol/L HISTORICAL RESULTS CO2, calc, art 15(L) 22 - 32 mmol/L HISTORICAL RESULTS BE, art -14.1 mmol/L HISTORICAL RESULTS O2 sat, art 97 95 - 98 % HISTORIC AL RESULTS Arterial blood 02/23/2014 5: 19 PM CDT Justino Doyle MD LAB BLOOD ORDERABLES Final Resul t Performing Organization Address City/[facility] de Phone Number HISTORICAL RESULTS * (ABNORMAL) Blood glucose, POC (02/23/2014 4:38 PM CDT) Glucose, POC, bld 269(H) 70 - 199 mg/dl HISTORICAL RESULTS Blood specimen (specimen) 02/23/2014 4:38 PM CDT Justino Doyle MD LAB BLOOD ORDERABLES Final Resul t Performing Organization Address [facility] de Phone Number HISTORICAL RESULTS * (ABNORMAL) Blood cell count (CBC) (02/23/2014 3:18 PM CDT) WBC 20.1(H) 3.8 - 9.8 K/cumm HISTORICAL RESULTS RBC 3.39(L) 3.90 - 5.00 M/cumm HISTORICAL RESULTS Hgb 10.4(L) 12.1 - 15.1 g/dl HISTORICAL RESULTS Hct 30.2(L) 36.1 - 44.3 % HISTORICAL RESULTS MCV 89.0 80.0 - 97.6 fl HISTORICAL RESULTS MCH 30.6 26.7 - 33.7 pg HISTORICAL RESULTS MCHC 34.4 32.7 - 35.5 g/dl HISTORICAL RESULTS Rdw 13.7 11.8 - 14.6 % HISTORICAL RESULTS Platelets 202 140 - 440 K/cumm HISTORICAL RESULTS Comment:{No clot detected in sample.} MPV 7.9 6.8 - 10.4 fl HISTORICAL RESULTS Neutrophils 84.4(H) 38.7 - 74.5 % HISTORICAL RESULTS Lymphocytes 7.5(L) 20.0 - 54.3 % HISTORICAL RESULTS Monos 7.6 4.3 - 13.5 % HISTORICAL RESULTS Eosinophils 0.5 0.0 - 6.0 % HISTORICAL RESULTS Basophils 0.0 0.0 - 3.0 % HISTORICAL RESULTS Neutrophils, abs 16.9(H) 1.8 - 6.6 K/cumm HISTORICAL RESULTS Lymphocytes, abs 1.5 1.2 - 3.3 K/cumm HISTORICAL RESULTS Monocytes, absolute 1.5(H) 0.2 - 1.2 K/cumm HISTORICAL RESULTS Eosinophils, abs 0.1 0.0 - 0.5 K/cumm HISTORICAL RESULTS Basophils, abs 0.0 0.0 - 0.2 K/cumm HISTORICAL RESULTS Blood specimen (specimen) 02/23/2014 3:18 PM CDT Historical Provider LAB BLOOD ORDERABLES Jennifer l Result HISTORICAL RESULTS * (ABNORMAL) Blood glucose, POC (02/23/2014 3:02 PM CDT) Glucose, POC, bld 339(H) 70 - 199 mg/dl HISTORICAL RESULTS Blood specimen (specimen) 02/23/2014 3:02 PM CDT Justino Doyle MD LAB BLOOD ORDERABLES Final Resul t HISTORICAL RESULTS * (ABNORMAL) Blood pH (02/23/2014 2:15 PM CDT) Ph, art 7.19(C) 7.35 - 7.45 HISTORIC AL RESULTS Blood specimen (specimen) 02/23/2014 2:15 PM CDT Narrative HISTORICAL RESULTS - 02/23/2014 2:31 PM CDT reviewed Interpretive Data This Critical result was obtained during concurrent analysis of another test which was ordered by a physician. ??This result was not specifically ordered and is reported at no charge to the patient; analysis performed at no charge. Current interpretive data was last revised on 2011. Result [facility] Provider LAB BLOOD ORDERABLES Jennifer l Result Performing Organization Address [facility] de Phone Number HISTORICAL RESULTS * (ABNORMAL) Blood gas, arterial (02/23/2014 2:07 PM CDT) Ph, art 7.26(L) 7.35 - 7.45 HISTORICAL RESULTS PCO2 40 35 - 45 mm Hg HISTORICAL RESULTS PO2, art 115(H) 80 - 105 mm Hg HISTORICAL RESULTS CO2, calc, art 18(L) 21 - 30 mmol/L HISTORICAL RESULTS A-a gradient Not Applicable mm Hg HI STORICAL RESULTS O2, inspired, %, art Not Applicable % HISTORICAL RESULTS Oxygen (O2), inspired fraction (FiO2) Not Applicable liters HISTORICAL RESULTS Arterial blood 02/23/2014 2: 07 PM CDT Result [facility] Provider LAB BLOOD ORDERABLES Jennifer l Result Performing Organization Address [facility] de Phone Number HISTORICAL RESULTS * (ABNORMAL) Blood hemoglobin saturation (02/23/2014 2:07 PM CDT) Hgb estimated, main pulmonary a 9.3(L) 12.1 - 15.1 g/dl HISTORICAL RESULTS OxyHb, main pulmonary a 50.9 % HISTORICAL RESULTS COHb, main pulmonary a 1.5 % HISTORICAL RESULTS MetHb, main pulmonary a 1.1 % HISTORICAL RESULTS O2 content, pulmonary a 6.7 volume % O2 HISTORICAL RESULTS Blood specimen (specimen) 02/23/2014 2:07 PM CDT Result [facility] Provider LAB BLOOD ORDERABLES Jennifer l Result Performing Organization Address [facility] de Phone Number HISTORICAL RESULTS * (ABNORMAL) Blood glucose, POC (02/23/2014 2:04 PM CDT) Glucose, POC, bld 345(H) 70 - 199 mg/dl HISTORICAL RESULTS Blood specimen (specimen) 02/23/2014 2:04 PM CDT us Justino Doyle MD LAB BLOOD ORDERABLES Final Resul t HISTORICAL RESULTS * ABDOMINAL RADIOGRAPHY, FRONTAL (AP) (02/23/2014 2:01 PM CDT) Anatomical Region Laterality Modality N/A Radiographic Piedad ging 02/23/2014 2:01 PM CDT Narrative 02/23/2014 4:03 PM CDT CHRISTINE HERNANDEZ M.D. SUELLEN FOSTER M.D. FINAL REPORT The radiology attending physician has personally reviewed this study, and has reviewed and/or edited this written report and agrees with it. ACC# ??Date Time ??Exam [id number] Feb 23, 2014 14:01:00 [id number] Abdomen single view AP EXAMINATION: ?Portable abdomen single view; AP HISTORY: ??Check tube placement FINDINGS: ?? Portal supine view of the abdomen submitted interpretation comparison to a prior study dated 02/23/2014 at 1304. Examination is limited by body habitus. The right lateral abdomen and lower pelvis are excluded from the [id number]. Bilateral thoracostomy tubes are in place. Epicardial pacing leads overlie the abdomen. There is a slight interval in the nasogastric tube which now terminates in the distal body. The side hole of the is a gastric tube is beyond the gastroesophageal junction. ?? IMPRESSION: Interval advancement of the nasogastric tube now terminating in the distal gastric body. ?? Requested By: CATHIE WASSERMAN M.D. Dictated By: ?? SUELLEN FOSTER M.D. ??on Feb 23 2014 ??3:35P This document has been electronically signed by: CHRISTINE HERNANDEZ M.D. on Feb 23 2014 ??4:03P Procedure Note Provider, MD Homero - 12/27/2016 CHRISTINE HERNANDEZ M.D. SUELLEN FOSTER M.D. FINAL REPORT The radiology attending physician has personally reviewed this study, and has reviewed and/or edited this written report and agrees with it. ACC# Date Time Exam [id number] Feb 23, 2014 14:01:00 [id number] Abdomen single view AP EXAMINATION: Portable abdomen single view; AP HISTORY: Check tube placement FINDINGS: Portal supine view of the abdomen submitted interpretation comparison to a prior study dated 02/23/2014 at 1304. Examination is limited by body habitus. The right lateral abdomen and lower pelvis are excluded from the [id number]. Bilateral thoracostomy tubes are in place. Epicardial pacing leads overlie the abdomen. There is a slight interval in the nasogastric tube which now terminates in the distal body. The side hole of the is a gastric tube is beyond the gastroesophageal junction. IMPRESSION: Interval advancement of the nasogastric tube now terminating in the distal gastric body. Requested By: CATHIE WASSERMAN M.D. Dictated By: SUELLEN FOSTER M.D. on Feb 23 2014 3:35P This document has been electronically signed by: CHRISTINE HERNANDEZ M.D. on Feb 23 2014 4:03P us Historical Provider IMFran XR PROCEDURES Final R esult * XR Chest 1 Vw (02/23/2014 2:01 PM CDT) Anatomical Region Laterality Modality Body, Chest N/A Radiographic Piedad ging 02/23/2014 2:01 PM CDT Narrative 02/23/2014 3:18 PM CDT RAYNA COOK M.D. ODESSA SERRATO M.D. FINAL REPORT The radiology attending physician has personally reviewed this study, and has reviewed and/or edited this written report and agrees with it. ACC# ??Date Time ??Exam [id number] Feb 23, 2014 14:01:00 [id number] Chest 1 view Frontal EXAMINATION: ?? Chest one view ?? IMPRESSION: ?Comparison is 02/23/2014 at 1300 hours. There has been interval placement of a right chest tube with near complete reexpansion of the right lung and resolution of the previously noted large right pneumothorax. An endotracheal tube, left chest tube, mediastinal drain, right internal jugular approach [place]-Lauro catheter, and radio opaque marker from an intra-aortic balloon pump are redemonstrated in unchanged position. Linear atelectasis in the mid right lung as well as a hazy opacity over the left lung are present. The left lung findings are thought to represent a combination of atelectasis as well as a posteriorly layering effusion. Cardiac size and mediastinal contours are unchanged. ?? Requested By: CATHIE WASSERMAN M.D. Dictated By: ?? ODESSA SERRATO M.D. ??on Feb 23 2014 ??2:56P This document has been electronically signed by: RAYNA COOK M.D. on Feb 23 2014 ??3:18P Procedure Note Provider, MD Homero - 12/27/2016 RAYNA COOK M.D. ODESSA SERRATO M.D. FINAL REPORT The radiology attending physician has personally reviewed this study, and has reviewed and/or edited this written report and agrees with it. ACC# Date Time Exam [id number] Feb 23, 2014 14:01:00 [id number] Chest 1 view Frontal EXAMINATION: Chest one view IMPRESSION: Comparison is 02/23/2014 at 1300 hours. There has been interval placement of a right chest tube with near complete reexpansion of the right lung and resolution of the previously noted large right pneumothorax. An endotracheal tube, left chest tube, mediastinal drain, right internal jugular approach [place]uro catheter, and radio opaque marker from an intra-aortic balloon pump are redemonstrated in unchanged position. Linear atelectasis in the mid right lung as well as a hazy opacity over the left lung are present. The left lung findings are thought to represent a combination of atelectasis as well as a posteriorly layering effusion. Cardiac size and mediastinal contours are unchanged. Requested By: CATHIE WASSERMAN M.D. Dictated By: ODESSA SERRATO M.D. on Feb 23 2014 2:56P This document has been electronically signed by: RAYNA COOK M.D. on Feb 23 2014 3:18P us Historical Provider IMFran XR PROCEDURES Final R esult * XR Chest 1 Vw (02/23/2014 1:03 PM CDT) Anatomical Region Laterality Modality Body, Chest N/A Radiographic Piedad ging 02/23/2014 1:03 PM CDT Narrative 02/23/2014 1:57 PM CDT RAYNA COOK M.D. ODESSA SERRATO M.D. FINAL REPORT The radiology attending physician has personally reviewed this study, and has reviewed and/or edited this written report and agrees with it. ACC# ??Date Time ??Exam [id number] Feb 23, 2014 13:03:00 [id number] Chest 1 view Frontal EXAMINATION: ?? Chest one view ?? IMPRESSION: ?Portable radiograph of the chest is read with comparison to prior exam dated 02/17/2014. There is a large right pneumothorax with underlying atelectasis. Post surgical changes of median sternotomy, endotracheal intubation, and nasogastric tube placement are noted. A right internal jugular approach introducer sheath and [place]-Lauro catheter are noted. An intra-aortic balloon pump radiopaque marker is noted in the proximal descending thoracic aorta. A left chest tube is present. A small left pleural effusion and associated left basilar atelectasis is present. Cardiac size is normal. The above findings were discussed with by at 1310 hours on 02/23/2014. ?? Requested By: ABEL GRIFFITHS M.D. Dictated By: ?? ODESSA SERRATO M.D. ??on Feb 23 2014 ??1:13P This document has been electronically signed by: RAYNA COOK M.D. on Feb 23 2014 ??1:57P Procedure Note Provider, MD Homero - 12/27/2016 Barbara DOVE M.D. FINAL REPORT The radiology attending physician has personally reviewed this study, and has reviewed and/or edited this written report and agrees with it. ACC# Date Time Exam [id number] Feb 23, 2014 13:03:00 [id number] Chest 1 view Frontal EXAMINATION: Chest one view IMPRESSION: Portable radiograph of the chest is read with comparison to prior exam dated 02/17/2014. There is a large right pneumothorax with underlying atelectasis. Post surgical changes of median sternotomy, endotracheal intubation, and nasogastric tube placement are noted. A right internal jugular approach introducer sheath and [place]-Lauro catheter are noted. An intra-aortic balloon pump radiopaque marker is noted in the proximal descending thoracic aorta. A left chest tube is present. A small left pleural effusion and associated left basilar atelectasis is present. Cardiac size is normal. The above findings were discussed with by at 1310 hours on 02/23/2014. Requested By: ABEL GRIFFITHS M.D. Dictated By: ODESSA SERRATO M.D. on Feb 23 2014 1:13P This document has been electronically signed by: RAYNA COOK M.D. on Feb 23 2014 1:57P us Historical Provider IMG XR PROCEDURES Final R esult * ABDOMINAL RADIOGRAPHY, FRONTAL (AP) (02/23/2014 1:03 PM CDT) Anatomical Region Laterality Modality N/A Radiographic Piedad ging 02/23/2014 1:03 PM CDT Narrative 02/23/2014 2:38 PM CDT CHRISTINE HERNANDEZ M.D. COLIN MITCHELL, FINAL REPORT The radiology attending physician has personally reviewed this study, and has reviewed and/or edited this written report and agrees with it. ACC# ??Date Time ??Exam [id number] Feb 23, 2014 13:03:00 [id number] Abdomen single view AP EXAMINATION: ?? ABDOMEN SINGLE VIEW HISTORY: ??Tube placement ?? IMPRESSION: ?? Supine the abdomen is submitted without prior study for comparison. A thoracostomy tube is noted. Median sternotomy wires are present. Nasogastric tube tip is in the gastric body. ?? Requested By: ABEL GRIFFITHS M.D. Dictated By: ?? COLIN MITCHELL, ?? on Feb 23 2014 ??2:26P This document has been electronically signed by: CHRISTINE HERNANDEZ M.D. on Feb 23 2014 ??2:38P Procedure Note Provider, MD Homero - 12/27/2016 CHRISTINE HERNANDEZ M.D. COLIN MITCHELL, FINAL REPORT The radiology attending physician has personally reviewed this study, and has reviewed and/or edited this written report and agrees with it. ACC# Date Time Exam [id number] Feb 23, 2014 13:03:00 [id number] Abdomen single view AP EXAMINATION: ABDOMEN SINGLE VIEW HISTORY: Tube placement IMPRESSION: Supine the abdomen is submitted without prior study for comparison. A thoracostomy tube is noted. Median sternotomy wires are present. Nasogastric tube tip is in the gastric body. Requested By: ABEL GRIFFITHS M.D. Dictated By: COLIN MITCHELL, on Feb 23 2014 2:26P This document has been electronically signed by: CHRISTINE HERNANDEZ M.D. on Feb 23 2014 2:38P Historical Provider IMG XR PROCEDURES Final R esult * (ABNORMAL) Blood glucose, POC (02/23/2014 12:55 PM CDT) Glucose, POC, bld 347(H) 70 - 199 mg/dl HISTORICAL RESULTS Blood specimen (specimen) 02/23/2014 12:55 PM CDT Justino Doyle MD LAB BLOOD ORDERABLES Final Resul t Performing Organization Address City/[facility] Co de Phone Number HISTORICAL RESULTS * Blood potassium, mixed venous (02/23/2014 12:55 PM CDT) Pathologist [facility] Potassium, bld 3.4 3.3 - 4.9 mmol/L HISTORICAL RESULTS Mixed venous blood 02/23/2014 12:55 PM CDT Abel Griffiths MD LAB BLOOD ORDERABLES Final Result Performing Organization Address City/State/[facility] Co de Phone Number HISTORICAL RESULTS * (ABNORMAL) Plasma partial thromboplastin time (PTT) (02/23/2014 12:55 PM CDT) Pathologist [facility] APTT > 150.0(C) 25.0 - 37.0 seconds HISTORICAL RESULTS Comment: Verified. Interpretive Data Therapeutic heparin range:60.0 - 94.0 sec based on correlation with therapeutic heparin activity range of 0.3 -0.7 Units/mL. Current interpretive data was last revised on 2011. Plasma 02/23/2014 12:5 5 PM CDT Abel Griffiths MD LAB BLOOD ORDERABLES Final Result Performing Organization Address [facility] de Phone Number HISTORICAL RESULTS * (ABNORMAL) Plasma basic metabolic panel (02/23/2014 12:55 PM CDT) Sodium 141 135 - 145 mmol/L HISTORICAL RESULTS K, pl 3.3 3.3 - 4.9 mmol/L HISTORICAL RESULTS Chloride 106 97 - 110 mmol/L HISTORICAL RESULTS CO2 21(L) 22 - 32 mmol/L HISTORICAL RESULTS A. gap 14 0 - 16 mmol/L HISTORICAL RESULTS Glucose 356(H) 70 - 199 mg/dl HISTORICAL RESULTS BUN 23 8 - 25 mg/dl HISTORICAL RESULTS Creatinine 0.72 0.60 - 1.10 mg/dl HISTORICAL RESULTS Calcium 8.6 8.6 - 10.3 mg/dl HISTORICAL RESULTS Plasma 02/23/2014 12:5 5 PM CDT Abel Griffiths MD LAB BLOOD ORDERABLES Final Result Performing Organization Address [facility] de Phone Number HISTORICAL RESULTS * Plasma phosphorus (02/23/2014 12:55 PM CDT) Phosphorus, pl 3.8 2.3 - 4.3 mg/dl HISTORICAL RESULTS Plasma 02/23/2014 12:5 5 PM CDT Abel Griffiths MD LAB BLOOD ORDERABLES Final Result Performing Organization Address [facility] de Phone Number HISTORICAL RESULTS * (ABNORMAL) Plasma prothrombin time (PT) (02/23/2014 12:55 PM CDT) Prothrombin time (PT) 13.4(H) 9.0 - 12.0 seconds HISTORICAL RESULTS INR 1.26(H) 0.90 - 1.20 HISTORIC AL RESULTS Comment: Interpretive Data Inpatient therapeutic ranges* Atrial fibrillation ?2.0-3.0 INR Venous thrombo-embolism ?2.0-3.0 INR Bioprosthetic heart valve ?* Mechanical heart valve, bileaflet or tilting disk,aortic position ? 2.0-3.0 INR All other,or bileaflet or tilting disk, in mitral position ? 2.5-3.5 INR *See the pharmacy resource directory (PHRED) for an updated copy of the Tool Book at [email or web address] Current Interpretive Data was last revised 2011. Plasma 02/23/2014 12:5 5 PM CDT Abel Griffiths MD LAB BLOOD ORDERABLES Final Result Performing Organization Address [facility] de Phone Number HISTORICAL RESULTS * Serum magnesium (02/23/2014 12:55 PM CDT) Magnesium 1.6 1.4 - 2.5 mg/dl HISTORICAL RESULTS Serum 02/23/2014 12:5 5 PM CDT Abel Griffiths MD LAB BLOOD ORDERABLES Final Result Performing Organization Address [facility] Co de Phone Number HISTORICAL RESULTS * (ABNORMAL) Blood cell count [CBC] express (02/23/2014 12:55 PM CDT) WBC 27.0(H) 3.8 - 9.8 K/cumm HISTORICAL RESULTS RBC 3.26(L) 3.90 - 5.00 M/cumm HISTORICAL RESULTS Hgb 9.9(L) 12.1 - 15.1 g/dl HISTORICAL RESULTS Hct 30.0(L) 36.1 - 44.3 % HISTORICAL RESULTS MCV 91.9 80.0 - 97.6 fl HISTORICAL RESULTS MCH 30.3 26.7 - 33.7 pg HISTORICAL RESULTS MCHC 33.0 32.7 - 35.5 g/dl HISTORICAL RESULTS Rdw 13.3 11.8 - 14.6 % HISTORICAL RESULTS Platelets 258 140 - 440 K/cumm HISTORICAL RESULTS MPV 8.4 6.8 - 10.4 fl HISTORICAL RESULTS Blood specimen (specimen) 02/23/2014 12:55 PM CDT Abel Griffiths MD LAB BLOOD ORDERABLES Final Result Performing Organization Address [facility] de Phone Number HISTORICAL RESULTS * (ABNORMAL) Blood gas, arterial (02/23/2014 12:55 PM CDT) Ph, art 7.23(L) 7.35 - 7.45 HISTORICAL RESULTS PCO2 50(H) 35 - 45 mm Hg HISTORICAL RESULTS PO2, art 104 80 - 105 mm Hg HISTORICAL RESULTS CO2, calc, art 22 21 - 30 mmol/L HISTORICAL RESULTS A-a gradient Not Applicable mm Hg HI STORICAL RESULTS O2, inspired, %, art Not Applicable % HISTORICAL RESULTS Oxygen (O2), inspired fraction (FiO2) Not Applicable liters HISTORICAL RESULTS Arterial blood 02/23/2014 12 :55 PM CDT Abel Griffiths MD LAB BLOOD ORDERABLES Final Result Performing Organization Address City/[facility] de Phone Number HISTORICAL RESULTS * Urine (aerobic) culture (02/23/2014 12:38 PM CDT) Urine (Unknown) 02/23/2014 1 2:38 PM CDT 02/23/2014 12:38 PM CDT Narrative HISTORICAL RESULTS - 02/24/2014 3:32 PM CDT No growth us Historical Provider LAB MICROBIOLOGY - GENERA L ORDERABLES Final Result Performing Organization Address [facility] de Phone Number HISTORICAL RESULTS * (ABNORMAL) Blood heparin/activated clotting time (ACT) (02/23/2014 12:07 PM CDT) Coagulation time, activated, POC 202(H) 112 - 174 seconds HISTORICAL RESULTS Blood specimen (specimen) 02/23/2014 12:07 PM CDT Justino Doyle MD LAB BLOOD ORDERABLES Final Resul t Performing Organization Address [facility] de Phone Number HISTORICAL RESULTS * (ABNORMAL) Blood heparin/activated clotting time (ACT) (02/23/2014 11:45 AM CDT) Heparin, POC >1.1 Units/ml HISTORI BRUNO RESULTS Coagulation time, activated, POC 206(H) 112 - 174 seconds HISTORICAL RESULTS Blood specimen (specimen) 02/23/2014 11:45 AM CDT Justino Doyle MD LAB BLOOD ORDERABLES Final Resul t Performing Organization Address [facility] de Phone Number HISTORICAL RESULTS * (ABNORMAL) Blood gas, point of care, arterial (02/23/2014 11:27 AM CDT) Ph, art 7.27(L) 7.35 - 7.45 HISTORICAL RESULTS PCO2 44 35 - 45 mm Hg HISTORICAL RESULTS PO2, art 240(H) 80 - 105 mm Hg HISTORICAL RESULTS Sodium, bld 138 135 - 145 mmol/L HISTORICAL RESULTS Potassium, bld 3.9 3.3 - 4.9 mmol/L HISTORICAL RESULTS Ca, ionized, bld 5.25(H) 4.50 - 5.10 mg/dl HISTORICAL RESULTS Hct 31.0(L) 36.1 - 44.3 % HISTORICAL RESULTS Glu, art 346(H) 70 - 199 mg/dl HISTORICAL RESULTS HCO3, art 20 20 - 30 mmol/L HISTORICAL RESULTS CO2, calc, art 22 22 - 32 mmol/L HISTORICAL RESULTS BE, art -6.4 mmol/L HISTORICAL RESULTS O2 sat, art 100(H) 95 - 98 % HISTORIC AL RESULTS Arterial blood 02/23/2014 11 :27 AM CDT Justino Doyle MD LAB BLOOD ORDERABLES Final Resul t Performing Organization Address [facility] de Phone Number HISTORICAL RESULTS * Blood heparin/activated clotting time (ACT) (02/23/2014 11:22 AM CDT) Heparin, POC 0.8 Units/ml HISTORI BRUNO RESULTS Coagulation time, activated, POC 167 112 - 174 seconds HISTORICAL RESULTS Blood specimen (specimen) 02/23/2014 11:22 AM CDT Justino Doyle MD LAB BLOOD ORDERABLES Final Resul t Performing Organization Address [facility] de Phone Number HISTORICAL RESULTS * (ABNORMAL) Blood gas, point of care, arterial (02/23/2014 11:00 AM CDT) Ph, art 7.30(L) 7.35 - 7.45 HISTORICAL RESULTS PCO2 34(L) 35 - 45 mm Hg HISTORICAL RESULTS PO2, art 84 80 - 105 mm Hg HISTORICAL RESULTS Sodium, bld 139 135 - 145 mmol/L HISTORICAL RESULTS Potassium, bld 5.2(H) 3.3 - 4.9 mmol/L HISTORICAL RESULTS Ca, ionized, bld 9.50(C) 4.50 - 5.10 mg/dl HISTORICAL RESULTS Hct 33.0(L) 36.1 - 44.3 % HISTORICAL RESULTS Glu, art 182 70 - 199 mg/dl HISTORICAL RESULTS HCO3, art 17(L) 20 - 30 mmol/L HISTORICAL RESULTS CO2, calc, art 18(L) 22 - 32 mmol/L HISTORICAL RESULTS BE, art -8.9 mmol/L HISTORICAL RESULTS O2 sat, art 95 95 - 98 % HISTORIC AL RESULTS Arterial blood 02/23/2014 11 :00 AM CDT Justino Doyle MD LAB BLOOD ORDERABLES Final Resul t Performing Organization Address [facility] de Phone Number HISTORICAL RESULTS * (ABNORMAL) Blood heparin/activated clotting time (ACT) (02/23/2014 10:52 AM CDT) Heparin, POC >4.7 Units/ml HISTORI BRUNO RESULTS Coagulation time, activated, POC 489(H) 112 - 174 seconds HISTORICAL RESULTS Blood specimen (specimen) 02/23/2014 10:52 AM CDT Justino Doyle MD LAB BLOOD ORDERABLES Final Resul t Performing Organization Address City/[facility] de Phone Number HISTORICAL RESULTS * (ABNORMAL) Blood gas, point of care, arterial (02/23/2014 10:41 AM CDT) Ph, art 7.37 7.35 - 7.45 HISTORICAL RESULTS PCO2 39 35 - 45 mm Hg HISTORICAL RESULTS PO2, art 84 80 - 105 mm Hg HISTORICAL RESULTS Sodium, bld 138 135 - 145 mmol/L HISTORICAL RESULTS Potassium, bld 5.6(H) 3.3 - 4.9 mmol/L HISTORICAL RESULTS Ca, ionized, bld 4.73 4.50 - 5.10 mg/dl HISTORICAL RESULTS Hct 34.0(L) 36.1 - 44.3 % HISTORICAL RESULTS Glu, art 161 70 - 199 mg/dl HISTORICAL RESULTS HCO3, art 23 20 - 30 mmol/L HISTORICAL RESULTS CO2, calc, art 24 22 - 32 mmol/L HISTORICAL RESULTS BE, art -2.5 mmol/L HISTORICAL RESULTS O2 sat, art 96 95 - 98 % HISTORIC AL RESULTS Arterial blood 02/23/2014 10 :41 AM CDT Justino Doyle MD LAB BLOOD ORDERABLES Final Resul t Performing Organization Address [facility] de Phone Number HISTORICAL RESULTS * (ABNORMAL) Blood prothrombin time (PT) (02/23/2014 10:39 AM CDT) PT 19.8(H) 12.1 - 17.0 seconds HISTORICAL RESULTS INR 1.5(H) 1.0 - 1.3 HISTORICAL RESULTS Blood specimen (specimen) 02/23/2014 10:39 AM CDT Justino Doyle MD LAB BLOOD ORDERABLES Final Resul t Performing Organization Address [facility] Co de Phone Number HISTORICAL RESULTS * (ABNORMAL) Blood platelet, hematocrit Point of Care (02/23/2014 10:39 AM CDT) Hct 34.8(L) 36.1 - 44.3 % HISTORICAL RESULTS Platelets 207 140 - 440 K/cumm HISTORICAL RESULTS Blood specimen (specimen) 02/23/2014 10:39 AM CDT Justino Doyle MD LAB BLOOD ORDERABLES Final Resul t Performing Organization Address [facility] de Phone Number HISTORICAL RESULTS * (ABNORMAL) Plasma partial thromboplastin time (PTT) (02/23/2014 10:37 AM CDT) APTT 26.6(L) 29.3 - 45.4 seconds HISTORICAL RESULTS Plasma 02/23/2014 10:3 7 AM CDT Justino Doyle MD LAB BLOOD ORDERABLES Final Resul t Performing Organization Address [facility] Co de Phone Number HISTORICAL RESULTS * (ABNORMAL) Blood heparin/activated clotting time (ACT) (02/23/2014 10:30 AM CDT) Heparin, POC 0.0 Units/ml HISTORI BRUNO RESULTS Coagulation time, activated, POC 108(L) 112 - 174 seconds HISTORICAL RESULTS Blood specimen (specimen) 02/23/2014 10:30 AM CDT Justino Doyle MD LAB BLOOD ORDERABLES Final Resul t Performing Organization Address [facility] Co de Phone Number HISTORICAL RESULTS * (ABNORMAL) Blood heparin/activated clotting time (ACT) (02/23/2014 10:01 AM CDT) Heparin, POC <2.8 Units/ml HISTORI BRUNO RESULTS Coagulation time, activated, POC 359(H) 112 - 174 seconds HISTORICAL RESULTS Blood specimen (specimen) 02/23/2014 10:01 AM CDT Justino Doyle MD LAB BLOOD ORDERABLES Final Resul t Performing Organization Address [facility] de Phone Number HISTORICAL RESULTS * (ABNORMAL) Blood heparin/activated clotting time (ACT) (02/23/2014 9:49 AM CDT) Heparin, POC <2.8 Units/ml HISTORI BRUNO RESULTS Coagulation time, activated, POC 328(H) 112 - 174 seconds HISTORICAL RESULTS Blood specimen (specimen) 02/23/2014 9:49 AM CDT Justino Doyle MD LAB BLOOD ORDERABLES Final Resul t Performing Organization Address [facility] de Phone Number HISTORICAL RESULTS * (ABNORMAL) Blood heparin/activated clotting time (ACT) (02/23/2014 9:36 AM CDT) Heparin, POC <2.8 Units/ml HISTORI BRUNO RESULTS Coagulation time, activated, POC 352(H) 112 - 174 seconds HISTORICAL RESULTS Blood specimen (specimen) 02/23/2014 9:36 AM CDT Justino Doyle MD LAB BLOOD ORDERABLES Final Resul t Performing Organization Address [facility] de Phone Number HISTORICAL RESULTS * (ABNORMAL) Blood gas, point of care, arterial (02/23/2014 9:13 AM CDT) Ph, art 7.31(L) 7.35 - 7.45 HISTORICAL RESULTS PCO2 46(H) 35 - 45 mm Hg HISTORICAL RESULTS PO2, art 121(H) 80 - 105 mm Hg HISTORICAL RESULTS Sodium, bld 138 135 - 145 mmol/L HISTORICAL RESULTS Potassium, bld 4.9 3.3 - 4.9 mmol/L HISTORICAL RESULTS Ca, ionized, bld 4.81 4.50 - 5.10 mg/dl HISTORICAL RESULTS Hct 38.0 36.1 - 44.3 % HISTORICAL RESULTS Glu, art 121 70 - 199 mg/dl HISTORICAL RESULTS HCO3, art 23 20 - 30 mmol/L HISTORICAL RESULTS CO2, calc, art 25 22 - 32 mmol/L HISTORICAL RESULTS BE, art -3.2 mmol/L HISTORICAL RESULTS O2 sat, art 98 95 - 98 % HISTORIC AL RESULTS Arterial blood 02/23/2014 9: 13 AM CDT Justino Doyle MD LAB BLOOD ORDERABLES Final Resul t Performing Organization Address [facility] de Phone Number HISTORICAL RESULTS * Blood heparin dose response (02/23/2014 9:04 AM CDT) Coagulation time, activated, POC 130 112 - 174 seconds HISTORICAL RESULTS Heparin dose response slope, POC 69 60 - 195 HISTORICAL RESULTS Projected heparin concentration, POC 6.1 Units/ml HISTORICAL RESULTS Blood specimen (specimen) 02/23/2014 9:04 AM CDT Justino Doyle MD LAB BLOOD ORDERABLES Final Resul t Performing Organization Address [facility] de Phone Number HISTORICAL RESULTS * Blood ABO, Rh, indirect ab screen (02/23/2014 6:50 AM CDT) Twyla, indirect Negative HISTORICAL RESULTS ABO, Rho(D) O Positive HISTORI BRUNO RESULTS Blood specimen (specimen) 02/23/2014 6:50 AM CDT Justino Doyle MD LAB BLOOD ORDERABLES Final Resul t Performing Organization Address [facility] de Phone Number HISTORICAL RESULTS * All Microbiology Report Section (02/23/2014 12:00 AM CDT) 02/23/2014 Narrative HISTORICAL RESULTS - 03/04/2014 1:16 PM CDT ? [facility] ?[facility] ?[place] [address] ? Patient Name: ??TRESSA MYERS ? Med Rec Number: [id number] ? Fin Number: ?[id number] ? Date: ?1955 ? Sex/Age: ? Female 59 years ? Admit Date: ?02/23/2014 ? Discharge Date: 03/03/2014 ? Doctor: ?Doyle , Justino R ? Facility: ?[facility] ? Location: ?OTHER ?* Abnormal ??A Alert ??f Footnote ??^ Corrected ??L Low ??H High ?i Interp Data ??@ Ref Lab ? Chart Type:Cumulative ?* * * * MICROBIOLOGY - MISCELLANEOUS * * * * ?PROCEDURE: MRSA Surveillance Culture ? SOURCE: Nasal ? COLLECTED: 02/23/14 ??1909 ?BODY SITE: ? STARTED: 02/24/14 ??0139 ? FREE TEXT SOURCE: ? FINAL REPORT ? REPORTED: 02/25/14728 ? Negative ?* * * ??Interpretive Results ??* * * ? (1)This test is for Infection Prevention surveillance; no charge to ? the patient. ? us Historical Provider MD LAB MICROBIOLOGY - GENERA L ORDERABLES Final Result HISTORICAL RESULTS * All Microbiology Report Section (02/23/2014 12:00 AM CDT) 02/23/2014 Narrative HISTORICAL RESULTS - 03/04/2014 1:16 PM CDT ? [facility] ?[facility] ?[place], [place] [address] ? Patient Name: ??TRESSA MYERS ? Med Rec Number: [id number] ? Fin Number: ?[id number] ? Date: ?1955 ? Sex/Age: ? Female 59 years ? Admit Date: ?02/23/2014 ? Discharge Date: 03/03/2014 ? Doctor: ?Doyle , Justino R ? Facility: ?[facility] ? Location: ?OTHER ?* Abnormal ??A Alert ??f Footnote ??^ Corrected ??L Low ??H High ?i Interp Data ??@ Ref Lab ? Chart Type:Cumulative ?* * * * MICROBIOLOGY - URINE * * * * ?PROCEDURE: Urine Culture ? SOURCE: Urine ? COLLECTED: /30/14 ??1238 ?BODY SITE: ? STARTED: /30/14 ??1238 ? FREE TEXT SOURCE: ? FINAL REPORT ? REPORTED: 02/24/14 1532 ? No growth us Historical Provider LAB MICROBIOLOGY - GENERA L ORDERABLES Final Result HISTORICAL RESULTS * ELECTROCARDIOGRAPHY (ECG) (02/23/2014) Narrative 02/23/2014 Ordered by an unspecified provider. us Historical Provider ECG ORDERABLES Final Res ult documented in this encounter Visit Diagnoses Diagnosis Coronary atherosclerosis of [place] coronary artery Ventricular fibrillation (CMS/HCC) (HCC) Ventricular fibrillation Paroxysmal ventricular tachycardia (HCC) Paroxysmal ventricular tachycardia Atrial flutter (CMS/HCC) (HCC) Atrial flutter Cardiac complication Cardiac complications Atrial fibrillation (CMS/HCC) (HCC) Atrial fibrillation Other and unspecified hyperlipidemia Essential hypertension Unspecified essential hypertension Obstructive sleep apnea Obstructive sleep apnea (adult) (pediatric) Esophageal reflux Anxiety state Anxiety state, unspecified Pure hypercholesterolemia Tobacco use disorder Hypopotassemia Postsurgical percutaneous transluminal coronary angioplasty status History of allergy to other antibiotic agent Tubal ligation status Family history of ischemic heart disease Family history of malignant neoplasm Other specified counseling Surgical operation with anastomosis, bypass, or graft, with natural or artificial tissues used as implant causing abnormal patient reaction, or later complication Place of occurrence, residential institution documented in this encounter
--- OUTSIDE RECORDS SUMMARY | 2024-08-30 18:59 | XMS_ITS | Encounter Summary ---
Author Organization [facility] Care Team Providers Care Telehealth Nurse Educator Name Role Phone Unavailable Primary Care Provider Unavailabl e Encounter Details Date Type Department Care Team (Late st Contact Info) Description 04/09/2014 - 04/09/2014 11:59 PM CDT Hospital Encounter [facility] Justino Reynoso MD [address] [facility] [address] [place] [address] Surgery follow-up examination Social History Tobacco Use Types Packs/Day Years Used Date Smoking Tobacco: Former Comments Unknown Sex and Gender Information Value Date Recorded Sex Assigned at Not on file Legal Sex Female 3:00 AM [employer] Gender Identity Not on file Sexual Orientation Not on file documented as of this encounter Plan of Treatment Not on file documented as of this encounter Procedures Procedure Name Priority Date/Time Associated Diagnosis Comments FL FLUOROSCOPY < 1 HOUR Routine 04/09/2014 4:10 PM CDT XR CHEST PA LATERAL 2 VIEWS Routine 04/09/2014 11:22 AM CDT documented in this encounter Results * Fluoroscopy < 1 Hour (04/09/2014 4:10 PM CDT) Anatomical Region Laterality Modality Body N/A Radiographic Piedad ging 04/09/2014 4:10 PM CDT Narrative 04/09/2014 4:26 PM CDT CHRISTINE HERNANDEZ M.D. MARIZA COTTER M.D. FINAL REPORT The radiology attending physician has personally reviewed this study, and has reviewed and/or edited this written report and agrees with it. ACC# ??Date Time ??Exam [id number] Apr 09, 2014 16:10:00 [id number] Fluoro alone EXAMINATION: ?Sniff test HISTORY: ??59-year-old female status post coronary artery bypass graft, evaluate for diaphragmatic paralysis TECHNIQUE: Under video fluoroscopy, the patient was placed in the AP position and under direct visualization, normal breathing, deep breathing, and sniff test was performed. FINDINGS: ?? There was normal movement of the right hemidiaphragm with normal breathing and deep breathing. There was absent movement of the left hemidiaphragm with normal breathing and deep breathing. There was paradoxical motion of the left hemidiaphragm during the sniffing portion of the test consistent with diaphragmatic paralysis. IMPRESSION: ?? Left diaphragmatic paralysis Requested By: JUSTINO RAMIRES ??Barbara Dictated By: ?? MARIZA COTTER M.D. ??on Apr 09 2014 ??4:23P This document has been electronically signed by: CHRISTINE HERNANDEZ M.D. on Apr 09 2014 ??4:26P Procedure Note Provider, MD Homero - 12/27/2016 Barbara LEAL M.D. FINAL REPORT The radiology attending physician has personally reviewed this study, and has reviewed and/or edited this written report and agrees with it. ACC# Date Time Exam [id number] Apr 09, 2014 16:10:00 [id number] Fluoro alone EXAMINATION: Sniff test HISTORY: 59-year-old female status post coronary artery bypass graft, evaluate for diaphragmatic paralysis TECHNIQUE: Under video fluoroscopy, the patient was placed in the AP position and under direct visualization, normal breathing, deep breathing, and sniff test was performed. FINDINGS: There was normal movement of the right hemidiaphragm with normal breathing and deep breathing. There was absent movement of the left hemidiaphragm with normal breathing and deep breathing. There was paradoxical motion of the left hemidiaphragm during the sniffing portion of the test consistent with diaphragmatic paralysis. IMPRESSION: Left diaphragmatic paralysis Requested By: JUSTINO RAMIRES M.D. Dictated By: MARIZA COTTER M.D. on Apr 09 2014 4:23P This document has been electronically signed by: CHRISTINE HERNANDEZ M.D. on Apr 09 2014 4:26P us Historical Provider MD GROVES FLUOROSCOPY PROCEDURE S Final Result * XR Chest Pa Lateral 2 Views (04/09/2014 11:22 AM CDT) Anatomical Region Laterality Modality Body, Chest N/A Radiographic Piedad ging 04/09/2014 11:2 2 AM CDT Narrative 04/09/2014 11:31 AM CDT ODESSA BUCKLEY M.D. FINAL REPORT ACC# ??Date Time ??Exam [id number] Apr 09, 2014 11:22:00 [id number] Chest 2 views Frontl & Lat EXAMINATION: ?? Chest 2 views COMPARISON: 03/02/2014 IMPRESSION: ?? Median sternotomy surgical changes are again seen. Heart size remains normal. There is mild to moderate elevation of left hemidiaphragm and minimal atelectasis in the left lung base. The right lung remains clear. No pleural effusion. Requested By: JUSTINO RAMIRES M.D. Dictated By: ?? ODESSA BUCKLEY M.D. ??on Apr 09 2014 11:31A This document has been electronically signed by: ODESSA BUCKLEY M.D. on Apr 09 2014 11:31A Procedure Note Provider, MD Homero - 02/01/2017 ODESSA BUCKLEY M.D. FINAL REPORT ACC# Date Time Exam [id number] Apr 09, 2014 11:22:00 [id number] Chest 2 views Frontl & Lat EXAMINATION: Chest 2 views COMPARISON: 03/02/2014 IMPRESSION: Median sternotomy surgical changes are again seen. Heart size remains normal. There is mild to moderate elevation of left hemidiaphragm and minimal atelectasis in the left lung base. The right lung remains clear. No pleural effusion. Requested By: JUSTINO RAMIRES M.D. Dictated By: ODESSA BUCKLEY M.D. on Apr 09 2014 11:31A This document has been electronically signed by: ODESSA BUCKLEY M.D. on Apr 09 2014 11:31A us Historical Provider MD GROVES XR PROCEDURES Final R esult documented in this encounter Visit Diagnoses Diagnosis Surgery follow-up examination Follow-up examination, following unspecified surgery documented in this encounter
--- OUTSIDE RECORDS SUMMARY | 2024-08-30 18:59 | XMS_ITS | Encounter Summary ---
Author Organization [facility] Healthcare Address [address] [place] [address] Care Team Providers Care Opal Polisher Name Role Phone Robbie Haywood MD Primary Care Provider [phone] Encounter Details Date Type Department Care Team (Latest Contact Info) Description 01/01/2019 9:00 AM CDT - 01/01/2019 11:25 AM CDT Surgery [facility] Electrophysiology Lab [address] [place] [address] [place] [address] [place], [place] [id number] LEFT CAROTID STENT 60476 Surgery Details Date/Time Status Location OR Service Patient Class Case Class Case Type Trauma Case? 01/01/2019 9:00 AM Posted [facility] EP LAB EP 03 Neurosurgery Inpatient Elective Panel 1 Procedure LRB Anes Op Region Wound Class Comments LEFT CAROTID STENT 76854 Left None SELECTIVE CATH INTERNAL UGALDE TID ARTERY, UNILATERAL 08950 N/A SELECTIVE CATH VERTEBRAL ART HIREN, UNILATERAL 32036 N/A Surgeon Surgeon Role Service Panel Zan Lee MD Primary Neurosurgery 1 documented in this [...] on file Legal Sex Female 3:00 AM FINANCIAL SERVICES SPECIALIST Gender Identity Not on file Sexual Orientation Not on file documented as of this encounter Last Filed Vital Signs Vital Sign Reading Time Taken Comments Blood Pressure 113/86 01/01/2019 7:02 AM CDT Pulse 92 01/01/2019 7:02 AM CDT Temperature 36.7 ??C (98.1 ??F) 01/01/2019 7:02 AM CD T Respiratory Rate 18 01/01/2019 7:02 AM CDT Oxygen Saturation 91% 01/01/2019 7:02 AM CDT Inhaled Oxygen Concentration - - Weight 102.5 kg (225 lb 15.5 oz) 12/31/2018 1:50 AM CDT Height 165.1 cm (5' 5 ) 12/31/2018 1:50 AM CDT Body Mass Index 37.97 12/31/2018 1:50 AM CDT documented in this encounter Discharge Summaries * Naga Enriquez MD - 01/02/2019 8:06 AM CDT INPATIENT DISCHARGE SUMMARY BRIEF OVERVIEW Admitting Provider: Melvin Caro MD Discharge Provider: Naga Enriquez MD Primary Care Physician at Discharge: Robbie Haywood MD [phone] Admission Date: 12/31/2018 Discharge Date: 01/02/2019 PRIMARY DISCHARGE DIAGNOSIS CVA (cerebral vascular accident) ([facility]/HCC) SECONDARY DISCHARGE DIAGNOSIS CVA (cerebral vascular accident) ([facility]) Carotid atherosclerosis Abnormal CXR Essential hypertension Type 2 diabetes mellitus with circulatory disorder, without long-term current use of insulin ([facility]) Acute cystitis without hematuria Paroxysmal atrial flutter ([facility]) Coronary artery disease involving makah coronary artery of makah heart without angina pectoris History of coronary artery stent placement Hx of CABG Tobacco abuse * No resolved hospital problems. * DETAILS OF HOSPITAL STAY CONSULTING PHYSICIANS: Treatment Team: Consulting Physician: Trisha Jesus MD; Consulting Physician: Zan Lee MD PRESENTING PROBLEM/HISTORY OF PRESENT ILLNESS/HOSPITAL COURSE Patient presented to [place] on 12/29/18 with RUE and RLE weakness [...] negative patient already seen by Neurology at [place]. Full workup of was already being done. [...] related questions, please call dietitian's office at [phone]. Other Instructions Call provider for: Temperature -Temperature [...] Your Medications These medications were sent to [id number] - [place], [place] - [address] [facility] [address] ?? metoprolol 25 mg tablet OUTPATIENT FOLLOW-UP No future appointments. primary care provider Within 7-10 days Robbie Haywood MD [address] [place] [address] [facility] [address] [place] [address] [facility] [address] Follow up within a month Voice recognition [employer] Direct Software was used dictate and transcribe this document. Bi Tester variances may occur. Despite proofreading, typographical errors may occur. Naga Enriquez MD Time Spent on Discharge: 45 min documented in this encounter Discharge Instructions * Discharge Instructions* Shabnam Cano RN - 01/01/2019 3:59 PM CDT Activity: -No heavy lifting (over 10 pounds) for 1 week or as directed by your shed hand. -No driving for 2 days after sheath [...] or you have any questions contact your Vision Therapist and follow up with your Primary Care Physician as instructed. * Discharge Instr - Diet* Simmons, Kaylee - 12/31/2018 12:02 PM CDT Recommend consistent carbohydrate, heart healthy diet upon discharge. Aim for 45-60g of carbohydrate per meal. Limit sodium intake to 2000mg per day. Avoid concentrated sweets such as soda, juices, sweet tea, and candy. For nutrition related questions, please call dietitian's office at [phone]. documented in this encounter Medications at Time of Discharge aspirin 81 mg enteric coated tablet Take 1 tablet (81 mg total) by mouth nightly levothyroxine (SYNTHROID, LEVOTHROID) 75 mcg tablet Take 1 tablet (75 mcg total) by mouth early childhood specialist before breakfast 3 12/05/2018 metFORMIN (GLUCOPHAGE) 1,000 [...] Means Destination Discharge to home or self [facility] documented in this encounter Progress Notes * Catherine Jasmine, FAST FOOD WORKER - 01/02/2019 7:52 AM CDT Critical Care [...] Ms Myers presented to the ED in [place] on 12/29 with transient numbness and inability to move her R arm and leg. She had transient blurred vision as well the day before. She was transferred to [facility] andDr. Lee was consulted for LICA stenosis. [...] oral Daily heparin 5,000 Units subcutaneous Q8H [facility] insulin lispro 1-2 Units subcutaneous Q6H [facility] levothyroxine 75 mcg oral Daily - 0600 losartan 50 mg oral Daily metoprolol 25 mg oral BID PARoxetine 20 mg oral Daily sodium chloride 0.9% 0.5-20 mL intra-catheter Q8H [facility] Continuous Medications: DOPamine 1-5 mcg/kg/min niCARdipine 0.5-2.5 [...] last 24 hours: I/O: Date 01/01/19699 - 01/02/19 0659 01/02/19699 - 01/03/19 0659 Shift 2241-0706 9863-0598 24 Hour Total 9226-6004 4697-4539 24 Hour Total INTAKE P.O. 720 240 [...] -asa, lipitor -Dr. Lee following -neurology following -patient resource coordinator following -frequent neuro checks ?? CV: [...] reviewed with attending, Dr. Priscilla Jasmine MSN, ANAESTHETIC TECHNICIAN, RECORD LIBRARIAN-BC Cosigned by Vishal Wells MD at 01/02/2019 10:23 AM CDT Associated attestation - Vishal Wells MD - 01/02/2019 10:23 AM CDT I have reviewed and confirmed the history, physical exam, laboratory and radiographic data with theadvanced practiotioner as documented in the note. I have discussed the assessment and plan with my team and as necessary with the relevant cruise consultant staffs, RNs RTs taking care of this patient. Vishal Wells MD, [facility] Critical Care Medicine * Zan Lee MD [...] Team: Community PM Subjective Patient is a 63 y.o. y/o female admitted on 12/31/2018 1:59 AM with the following indication(s) for ICU care TIA with L Internal Carotid Stenosis, s/p Stent Placement Interval History: - Received stent x 1 to AHSAN - Held Metoprolol in setting of Sinus bradycardia - BP is adequate off of drips HPI Ms Myers presented to the ED in [place] on 12/29 with transient numbness and inability to move her R arm and leg. She had transient blurred vision as well the day before. She was transferred to [facility] andDr. Lee was consulted for LICA stenosis. [...] intravenous Daily heparin 5,000 Units subcutaneous Q8H [facility] insulin lispro 1-2 Units subcutaneous Q6H [facility] levothyroxine 75 mcg oral Daily - 0600 losartan 50 mg oral Daily metoprolol 25 mg oral BID PARoxetine 20 mg oral Daily sodium chloride 0.9% 0.5-20 mL intra-catheter Q8H [facility] Continuous Medications: DOPamine 1-5 mcg/kg/min niCARdipine 0.5-2.5 [...] 12/31/181899 - 01/01/1965801/01/19699 - 01/02/19 0659 Shift 1893-8429 24 Hour Total 6293-6203 5919-6561 24 Hour Total INTAKE P.O. 600 720 [...] -asa, lipitor -Dr. Lee following -neurology following -patient resource coordinator following -frequent neuro checks ?? CV: [...] CHIEF COMPLAINT/ HOSPITAL COURSE Patient presented to [place] on 12/29/18 with RUE and RLE weakness [...] Sitting Pulse: 95 93 90 92 Resp: 18 18 Temp: 36.7 ??C (98.1 ??F) 36.6 ??C [...] oral Daily heparin 5,000 Units subcutaneous Q8H [facility] insulin lispro 1-2 Units subcutaneous Q6H [facility] levothyroxine 75 mcg oral Daily - 0600 [...] negative patient already seen by Neurology at [place]. Full workup of was already being done. [...] Code status: Full Code Voice recognition software [employer] Direct was used dictate and transcribe this document. Bi Tester variances may occur. Despite proofreading, typographical errors may occur. Naga Enriquez MD. HOSPITALIST 01/01/2019 7:21 AM * La Mcclellan, CORRECTIONAL CLASSIFICATION COUNSELOR - 01/01/2019 7:10 AM CDT Speech Language/Pathology [...] flutter (CMS/HCC) ??? Coronary artery disease involving makah coronary artery of makah heart without angina pectoris ??? History of [...] septum, probably diastolic dysfunction. LHC (05/07/13) (1) Jiiqsus73% narrowings from proximal to distal RCA (2) [...] Date ??? CORONARY ARTERY BYPASS GRAFT ??? MD LIGATE FALLOPIAN TUBE Tubal Ligation - (Added by TW Conv) ??? MD PRQ TRLUML CORONARY STENT W/ANGIO ONE ART/BRNCH Cath Stent Placement - Xience TOM to LCX (04/2013) (Added by TW Conv) Oral/Motor Assessment Oral/Motor Labial ROM: Within Functional Limits Comprehension Expression Verbal Expression Primary Mode of Expression: Verbal Conversation: Within Functional Limits Higher Cognitive Functioning Pain Pain Assessment Pain Assessment: No/denies pain Assessment/Recommendation Speech Therapy Prognosis Services: No skilled CORRECTIONAL CLASSIFICATION COUNSELOR services at this time Prognosis: Excellent Recommendations CORRECTIONAL CLASSIFICATION COUNSELOR Recommendation (Add'l Services): Home independently CORRECTIONAL CLASSIFICATION COUNSELOR Frequency of Services: One-time visit (Discharge from this service) Speech Evaluation Complete: Yes Goals Multi-Disciplinary Problems (from Speech Therapy) Active Problems Not on file * Christiano Novak, FAST FOOD WORKER - 12/31/2018 5:39 PM CDT Neurology Daily [...] 250 mL intravenous Q15 Min PRN Melvin Caro MD ??? glucagon injection 1 mg 1 mg intramuscular Q30 Min PRN Melvin Caro MD ??? heparin 5,000 unit/mL injection 5,000 Units 5,000 Units subcutaneous Q8H [facility] Melvin Caro MD 5,000 Units at 12/31/18 0802 ??? insulin lispro (HumaLOG) injection 1-2 Units 1-2 Units subcutaneous Q6H [facility] Melvin Caro MD ??? ipratropium-albuterol (DUO-NEB) 0.5-2.5 [...] has normal strength. She has a normal Kcscyr-Tswm-Yulqoy Test. Reflex Scores: Tricep reflexes are 1+ [...] Right achilles: 1+ Left achilles: 1+ Right plastic battery assembler: 2+ Left plastic battery assembler: 2+ Right plantar: normal Left plantar: normal No intake/output data recorded. I/O this shift: In: 360 [P.O.:360] Out: 0 Lab/Radiology/Diagnostic Review: 1. December 30, 2018 transthoracic echocardiogram: EF 60%. No mural thrombosis, valvular vegetation, brcqv-vj-skja shunt. 2. December 30, 2018 lipid panel: [...] flutter (CMS/HCC) ??? Coronary artery disease involving makah coronary artery of makah heart without angina pectoris ??? History of [...] septum, probably diastolic dysfunction. LHC (05/07/13) (1) Oqneepv05% narrowings from proximal to distal RCA (2) [...] Date ??? CORONARY ARTERY BYPASS GRAFT ??? MD LIGATE FALLOPIAN TUBE Tubal Ligation - (Added by TW Conv) ??? MD PRQ TRLUML CORONARY STENT W/ANGIO ONE ART/BRNCH [...] as medically able. Will monitordiet advancement per CORRECTIONAL CLASSIFICATION COUNSELOR evaluation. Will f/u for further edu needs. [...] of Weight Used for Estimated Protein : [place]. ?? Total Fluid Estimated Needs: 1537.5 Fluid [...] of the distal septum, probably diastolic dysfunction. [facility] (05/07/13) (1) Utdoqzi57% narrowings from proximal to distal RCA (2) [...] related questions, please call dietitian's office at [phone]. Nutrition Follow-Up : 01/03/19 Kaylee Simmons MA, RD, LD * Naga Enriquez MD - 12/31/2018 9:53 AM CDT HOSPITALIST PROGRESS NOTE PCP: Robbie Haywood [phone] Admit Date: 12/31/2018 1:59 AM LOS: 0 CHIEF COMPLAINT/ HOSPITAL COURSE Patient presented to [place] on 12/29/18 with RUE and RLE weakness [...] negative patient already seen by Neurology at [place]. Full workup of was already being done. [...] Code status: Full Code Voice recognition software [employer] Direct was used dictate and transcribe this document. Bi Tester variances may occur. Despite proofreading, typographical errors may occur. Naga Enriquez MD. HOSPITALIST 12/31/2018 9:54 AM documented in this encounter H&P Notes * Melvin Caro MD - 12/31/2018 2:48 AM CDT General Medicine History and Physical DATE OF SERVICE: 12/31/18 PRIMARY CARE PHYSICIAN: Dr. Robbie Haywood SUBJECTIVE: Patient is a 63 y.o. female with a chief complaint of weaknes. HPI: Patient presented to [place] on 12/29/18 with RUE and RLE weakness [...] of the distal septum, probably diastolic dysfunction. [facility] (05/07/13) (1) Cwzdgue74% narrowings from proximal to distal RCA (2) [...] Date ??? CORONARY ARTERY BYPASS GRAFT ??? MD LIGATE FALLOPIAN TUBE Tubal Ligation - (Added by TW Conv) ??? MD PRQ TRLUML CORONARY STENT W/ANGIO ONE ART/BRNCH [...] mcg tablet Take 75 mcg by mouth early childhood specialist before breakfast 3 12/28/2018 at Unknown time [...] mcg tablet Take 75 mcg by mouth early childhood specialist before breakfast 12/05/18 Historical Provider, losartan (COZAAR) [...] Strength and sensation normal bilaterally and x4. Yagurl-ijez-yqnsyc and dulv-ag-poso diminished on the right. Lab/Radiology/Diagnostic Review: Recent [...] ELEVATED VELOCITY SUPPORTS A SEVERE STENOSIS IN VAY91-79% RANGE. 3. MEASURED DIAMETER STENOSIS RIGHT CAROTID BULB OF 74%. 4. MODERATE STENOSES RIGHT COMMON CAROTID ARTERY AND RIGHT EXTRAFORAMINAL CAROTID ARTERY AND LEFT CAROTID BULB, MILD STENOSIS LEFT COMMON CAROTID ARTERY. 5. ANTEGRADE VERTEBRAL FLOW BILATERALLY. Electronically signed by: Zaire Maria M.D Transthoracic Echo (tte) W Bubble Study Result Date: 12/30/2018 Narrative: [address] [address] Echocardiogram Report Patient Name: TRESSA MYERS M : 1955 Study Date: 12/30/2018 07:49:48 Gender: F Tech: FAST FOOD WORKER Location: [place] [address] Ref.Provider: CHAITANYA LUIS Height(Cm): 165 BSA: 2.18 [...] ] msec MVA 2.30 MV Decel Time 324 [ 104 - 258 ] msec PV Peak Samir 1.04 [ 0.40 - 0.80 ] m/s TR Peak Samir 2.53 [ 1.00 - 2.80 ] m/s TR Peak PG 26 mmHg RVSP 36.00 [ 10.00 - 36.00 ] mmHg E' 0.07 E/E' 11.96 PA Pressure 26.00 [ 10.00 - 36. 00 ] mmHg Findings: Atrial Septum: Normal atrial [...] Aortic cusps appear mildly sclerotic. No aortic regurgi tation. Mitral Valve: Mild mitral annular calcification. No mitral valve regurgitation is seen. There is no hemodynamically significant mitral stenosis by Doppler. Pulmonic Valve: Normal structure ofthe pulmonic valve. No evidence of pulmonic regurgitation. Tricuspid Valve: Right Ventricular Systolic Pressure could not be estimated due to inadequate visualization of TR jet. Pericardium: Normal pericardium with no significant pericardial effusion. Aorta: Normal aortic root. Sinus of Valsalva isnormal. Aortic arch is normal. Descending aorta is normal. IVC: The IVC is not well visualized. Pulmonary Artery: Normal pulmonary artery size. Conclusions: Normal left ventricular systolic function w ith no focal wall motion abnormalities. Normal left ventricular size. Normal left ventricular wall thickness. Ejection fraction is visually estimated at 60 %. Normal atrial septum. Saline contrast study performed without evidence of right to left shunt. Right Ventricular Systolic Pressure could notbe estimated due to inadequate visualization of TR [...] atrial flutter (CMS/HCC) Coronary artery disease involving makah coronary artery of makah heart without angina pectoris History of coronary [...] 01/01/2019 12:30 PM CDT CICU Consult Team: [facility] Reason for Consult: LICA stenosis Requesting Provider: Jesus Polk Patient is a 63 y.o. female with chief complaint of LICA stenosis with stenting HPI: Ms Myers presented to the ED in [place] on 12/29 with transient numbness and inability to move her R arm and leg. She had transient blurred vision as well the day before. She was transferred to [facility] andDr. Lee was consulted for LICA stenosis. [...] septum, probably diastolic dysfunction. LHC (05/07/13) (1) Dtlkyqo06% narrowings from proximal to distal RCA (2) [...] Date ??? CORONARY ARTERY BYPASS GRAFT ??? MD LIGATE FALLOPIAN TUBE Tubal Ligation - (Added by TW Conv) ??? MD PRQ TRLUML CORONARY STENT W/ANGIO [facility] Cath Stent Placement - Xience TOM to [...] mcg tablet Take 75 mcg by mouth early childhood specialist before breakfast 3 12/28/2018 at Unknown time [...] with small amount of bloody drainage to 5s0-umdlho Neurologic:??A&O x 4 cooperative Lab/Radiology/Diagnostic Review: Recent [...] -asa, lipitor -Dr. Lee following -neurology following -patient resource coordinator following -frequent neuro checks CV: #S/p [...] reviewed with attending, Dr. Priscilla Jasmine MSN, ANAESTHETIC TECHNICIAN, RECORD LIBRARIAN-BC Cosigned by Vishal Wells MD at 01/01/2019 4:06 PM CDT Associated attestation - Vishal Wells MD - 01/01/2019 4:06 PM CDT I have reviewed and confirmed the history, physical exam, laboratory and radiographic data with theadvanced practiotioner as documented in the note. I have discussed the assessment and plan with my team and as necessary with the relevant cruise consultant staffs, RNs RTs taking care of this patient. Vishal Wells MD, [facility] Critical Care Medicine * Zan Lee MD [...] septum, probably diastolic dysfunction. LHC (05/07/13) (1) Diffuse 25% narrowings from proximal [...] Date ??? CORONARY ARTERY BYPASS GRAFT ??? MD LIGATE FALLOPIAN TUBE Tubal Ligation - (Added by TW Conv) ??? MD PRQ TRLUML CORONARY STENT W/ANGIO ONE ART/BRNCH [...] mcg tablet Take 75 mcg by mouth early childhood specialist before breakfast 3 12/28/2018 at Unknown time [...] Alert and oriented X 3 Speech: Fluent dental receptionist, expression Cranial nerves: 2-12 grossly intact Sensory: [...] result(s) Principal Problem: CVA (cerebral vascular accident) (CMS/[facility]) Active Problems: Carotid atherosclerosis Abnormal CXR Essential hypertension Type 2 diabetes mellitus with circulatory disorder, without long-term current use of insulin ([facility]) Acute cystitis without hematuria Paroxysmal atrial flutter ([facility]) Coronary artery disease involving makah coronary artery of makah heart without angina pectoris History of coronary artery stent placement Hx of CABG Tobacco abuse Assessment /Plan Symptomatic high grade L ICA stenosis, with contralateral asymptomatic stenosis. Favor stent due toattenuated collateral from contralateral stenosis. Scheduled for tomorrow [phone]. [phone] documented in this encounter Nursing Notes * Marilia Boone RN - 01/02/2019 8:34 AM CDT Discharge instructions given to patient, all iv dc. Patient has no further questions and will follow up with Dr Lee in one month and contact her primary doctor. Awaiting family arrival and will transfer her to car. Discharged to home * Anderson Landry RN - 01/01/2019 7:23 AM CDT [facility] - Cardiac Picture [facility] Nursing Plan of Care Name: Tressa Myers : 1955 Age: 63 y.o. Gender: female Room/Bed: [facility] [address] Admit: 12/31/2018 1:59 AM Nursing Diagnosis: Anxiety [...] no change in neuro status. Summary: Dr lee ok for dc awaiting orders from hospitist. Patient [...] up, Son Cristhian Barreto, designated contact lens edge buffer and for goals of care, states able [...] OF SURGERY: 01/01/2019 SURGEON: Zan Lee MD SALES AND MERCHANDISING REPRESENTATIVE: RT ANESTHESIA: None ANESTHESIOLOGIST: No anesthesia staff entered. Complications: None Estimated Blood Loss: No blood loss documented. PREOPERATIVE DIAGNOSIS: Symptomatic high grade left carotid stenosis POSTOPERATIVE DIAGNOSIS: same PROCEDURE: SALES TEAM LEADER STENT, left CERVICAL CAROTID ARTERY W EMBOLIC PROTECTION CPT codes 26284-S 07394-S 44948-T INDICATION FOR PROCEDURE: R arm TIA with [...] Seldinger technique over a Bentson wire a 6-Luxembourger sheath was placed on continuous heparinized flush. Patient was heparinized to ACT >230 sec. Over the Short wire, a 5-Luxembourger pigtail was advanced to the arch and arch aortography was performed in the GABBIE projection. A 5-Luxembourger angled tapered glide catheter was used in [...] are not well visualized, SCA are symmetric, INFORMATION TECHNOLOGY ARCHITECT are symmetric. There is abundant right cerebral collateral via retrograde flow up a large right pcomm. Otherwise, transit time and venous phase are unremarkable. No vascular lesions are noted. IMPLANTS: Implant Name Type Inv. Item Serial No. Hygiene Assistant Lot No. LRB No. Used [employer] [id number] ACCULINK OD10 MM L40 MM L132 CM SELF EXPANDABLE; RAPID EXCHANGE; - [id number] - [id number] Stent [employer] [id number] Acculink Od10 Mm L40 Mm L132 Cm Self Expandable;Rapid Exchange; [id number] [employer] Left 1 [employer]IG CURTIS[employer] [id number] ANGIO-SEAL VIP BONDEK-PLUS 6FR .035IN 70CM HEMOSTATIC LATEX FREE -[id number] [employer]IG CUR[employer] [id number] Angio-seal Vip Bondek-plus 6fr .035in 70cm Hemostatic Latex Free [employer]ig [employer] [id number] Left 1 Specimens: No specimens collected during this procedure. Condition on Discharge from the operating room was stable Zan Lee MD 01/01/19 11:45 AM * Chief Of Police Pre-admission Screen - Janeen Villalobos - 01/01/2019 8:19 AM CDT Referral f/u. Pt lives in [place], and is [place] [employer] pending, which means that this pt isout of network with [facility]. If pt requires acute rehab, pt will [...] x 4. One surgical shower completed. * Chief Of Police Pre-admission Screen - Janeen Villalobos - 12/31/2018 4:36 PM CDT Referral received. Therapy evals are pending. Will complete CMR assessment and discuss case with medical collector once evals are completed. * Plan of [...] Reason Discharge Planning County Information [place], [place] Patient Information Primary Caregiver Self Support System Children Support system contact info (name, phone, availablity) Cristhian Barreto [facility]ly [facility] Health Care Agent Legal Information Have you reviewed your Advance Directive and is it valid for this stay? No Advance Directive Patient does not have advance directive;Patient refused information Prior Level of Functioning Durable Medical Equipment None Living Arrangement House;Lives alone Behavior Oriented Income Information Income Source SSD/SSI Income/Expense Information Income meets expenses Referral To Financial Resources Medicaid CELLAR PACKER contacted Financial Resources Department CELLAR PACKER contacted Financial Resources Department Potential Discharge Needs Discharge Potential Pt goal is to return home at [place]. Rehab Potential PT/OT have not been ordered for the pt. Anticipated discharge level of care Return Home Discharge Planning Type of Residence: Private residence Living Arrangements: Alone Support Systems: Children Assistance Needed: none Home Care Services: No Patient expects to be discharged to:: Private residence Does the patient need discharge transport arranged?: No DOWEL MAKER completed. [facility] [employer] Pipe Layer Case Management, 10th floor 12/31/2018 11:23 AM * Chief Of Police Pre-admission Screen - Dennis Patel RN - [...] 11:41 AM CDT [facility] VERTBRL [id number] Routine 01/01/2019 11:41 AM CDT [facility] CAROTID ART [id number] Routine 01/01/2019 11:41 AM CDT EGFR Routine [...] * POCT glucose (01/02/2019 6:07 AM CDT) Glucose, POC 125 70 - 199 mg/dL [facility] Blood specimen (specimen) 01/02/2019 6:07 AM CDT 01/02/2019 6:07 AM CDT Narrative [facility] - 01/02/2019 6:16 AM CDT us Naga Enriquez MD LAB POCT ORDERABLES - DEVICE Fi nal Result [facility] [address] [place] [address] * Differential, auto (01/02/2019 4:34 AM CDT) Neutrophil abs 3.8 1.7 - 6.5 K/cumm [facility] Imm gran abs 0.0 0.0 - 0.1 K/cumm [facility] Lymphocyte abs 1.8 0.8 - 3.3 K/cumm [facility] Monocyte abs 0.6 0.2 - 0.8 K/cumm [facility] Eosinophil abs 0.2 0.0 - 0.5 K/cumm [facility] Basophil abs 0.0 0.0 - 0.1 K/cumm [facility] Neutrophil pct 58.7 % [facility] Comment: Interpretive Data Percent cell count reference ranges are not reported, since discordance with absolute values may lead to misinterpretation of CBC data. Current Interpretive Data was last revised on 2017. Imm gran pct 0.3 % [facility] Comment: Interpretive Data Percent cell count reference ranges are not reported, since discordance with absolute values may lead to misinterpretation of CBC data. Current Interpretive Data was last revised on 2017. Lymphocyte pct 28.9 % [facility] Comment: Interpretive Data Percent cell count reference ranges are not reported, since discordance with absolute values may lead to misinterpretation of CBC data. Current Interpretive Data was last revised on 2017. Monocyte pct 9.0 % [facility] Comment: Interpretive Data Percent cell count reference ranges are not reported, since discordance with absolute values may lead to misinterpretation of CBC data. Current Interpretive Data was last revised on 2017. Eosinophil pct 2.3 % [facility] Comment: Interpretive Data Percent cell count reference ranges are not reported, since discordance with absolute values may lead to misinterpretation of CBC data. Current Interpretive Data was last revised on 2017. Basophil pct 0.8 % [facility] Comment: Interpretive Data Percent cell count reference ranges are not reported, since discordance with absolute values may lead to misinterpretation of CBC data. Current Interpretive Data was last revised on 2017. Blood specimen (specimen) 01/02/2019 4:34 AM CDT 01/02/2019 4:34 AM CDT Narrative [facility] - 01/02/2019 4:43 AM CDT us Zan Lee MD LAB BLOOD ORDERABLES Final Res ult [facility] [address] Department [place] [address] * (ABNORMAL) CBC with auto differential (01/02/2019 4:34 AM CDT) WBC 6.4 3.8 - 9.9 K/cumm [facility] Hgb 13.5 11.9 - 15.5 g/dL [facility] Hct 41.8 35.6 - 45.5 % [facility] Plt 228 150 - 400 K/cumm [facility] MPV 10.1 9.1 - 12.3 fL [facility] RBC 4.31 3.90 - 5.20 M/cumm [facility] MCV 97.0(H) 81.3 - 96.4 fL [facility] MCH 31.3 27.1 - 33.3 pg [facility] MCHC 32.3 32.3 - 35.7 g/dL [facility] RDW CV 12.1 11.1 - 14.9 % [facility] RDW SD 43.8 35.7 - 48.1 fL [facility] NRBC abs 0.00 0.00 - 0.01 K/cumm [facility] Blood specimen (specimen) 01/02/2019 4:34 AM CDT 01/02/2019 4:34 AM CDT Narrative [facility] - 01/02/2019 4:43 AM CDT us Zan Lee MD LAB BLOOD ORDERABLES Final Res ult [facility] [address] Department [place] [address] * eGFR (01/02/2019 4:17 AM CDT) eGFR 94 mL/min/1.7 3 m2 [facility] Comment: Interpretive Data Reference Interval Normal ?>/= 90 mL/min/1.73m2 Mildly decreased* ? 60 - 89 mL/min/1.73m2 Mildly to moderately decreased ?45 - 59 mL/min/1.73m2 Moderately to severely decreased ??30 - 44 mL/min/1.73m2 Severely decreased ?15 - 29 mL/min/1.73m2 Kidney Failure ?< 15 ??mL/min/1.73m2 *Relative to young adult level If -Canadian multiply value by 1.16. Estimated glomerular filtration [...] CDT 01/02/2019 4:34 AM CDT Narrative [facility] - 01/02/2019 4:50 AM CDT us Zan Lee MD LAB BLOOD ORDERABLES Final Res ult Performing Organization Address [facility] Co de Phone Number [facility] [address] [facility] [place] [address] * Phosphorus (01/02/2019 4:17 AM CDT) Phosphorus, pl 4.5 2.3 - 4.5 mg/dL [facility] Blood specimen (specimen) 01/02/2019 4:17 AM CDT 01/02/2019 4:34 AM CDT Narrative [facility] - 01/02/2019 4:50 AM CDT Leiv SAMS LAB BLOOD ORDERABLES Final Result Performing Organization Address [facility] de Phone Number [facility] [address] [facility] [place] [address] * Magnesium (01/02/2019 4:17 AM CDT) Magnesium 1.8 1.4 - 2.5 mg/dL [facility] Blood specimen (specimen) 01/02/2019 4:17 AM CDT 01/02/2019 4:34 AM CDT Narrative [facility] - 01/02/2019 4:50 AM CDT us Zan Lee MD LAB BLOOD ORDERABLES Final Res ult Performing Organization Address [facility] Co de Phone Number [facility] [address] [place] [address] * Basic metabolic panel (01/02/2019 4:17 AM CDT) Sodium 140 135 - 145 mmol/L [facility] Potassium, pl 4.3 3.3 - 4.9 mmol/L [facility] Chloride 104 97 - 110 mmol/L [facility] CO2 23 22 - 32 mmol/L [facility] Anion gap 13 2 - 15 mmol/L [facility] BUN 17 8 - 25 mg/dL [facility] Creatinine 0.65 0.60 - 1.10 mg/dL [facility] Glucose 132 70 - 199 mg/dL [facility] Comment: Interpretive Data Fasting glucose [...] 2017. Calcium 8.7 8.5 - 10.3 mg/dL [facility] Blood specimen (specimen) 01/02/2019 4:17 AM CDT 01/02/2019 4:34 AM CDT Narrative [facility] - 01/02/2019 4:50 AM CDT us aZn Lee MD LAB BLOOD ORDERABLES Final Res ult Performing Organization Address City/[facility]/ZIP Co de Phone Number [facility] [address] [place] [address] * POCT glucose (01/01/2019 11:30 PM CDT) Glucose, POC 103 70 - 199 mg/dL [facility] Blood specimen (specimen) 01/01/2019 11:30 PM CDT 01/01/2019 11:30 PM CDT Narrative [facility] - 01/01/2019 11:32 PM CDT Naga Enriquez MD LAB POCT ORDERABLES - DEVICE Fi nal Result Performing Organization Address City/[facility]/ZIP Co de Phone Number [facility] [address] [place] [address] * POCT glucose (01/01/2019 5:28 PM CDT) Glucose, POC 97 70 - 199 mg/dL [facility] [place] Blood specimen (specimen) 01/01/2019 5:28 PM CDT 01/01/2019 5:28 PM CDT Narrative [facility] [place] - 01/01/2019 5:29 PM CDT Naga Enriquez MD LAB POCT ORDERABLES - DEVICE Fi nal Result Performing Organization Address [facility] Co de Phone Number [facility] [address] [facility] [place] [address] * POCT glucose (01/01/2019 12:17 PM CDT) Glucose, POC 130 70 - 199 mg/dL [facility] [place] Blood specimen (specimen) 01/01/2019 12:17 PM CDT 01/01/2019 12:17 PM CDT Narrative [facility] [place] - 01/01/2019 12:19 PM CDT Naga Enriquez MD LAB POCT ORDERABLES - DEVICE Fi nal Result Performing Organization Address [facility] Co de Phone Number [facility] [address] [facility] [address] [place], [place] [id number] * POCT glucose (01/01/2019 12:02 PM CDT) Glucose, POC 121 70 - 199 mg/dL [facility] Blood specimen (specimen) 01/01/2019 12:02 PM CDT 01/01/2019 12:02 PM CDT Narrative [facility] [place] - 01/01/2019 12:25 PM CDT Naga Enriquez MD LAB POCT ORDERABLES - DEVICE Fi nal Result Performing Organization Address City/[facility] Co de Phone Number [facility] [address] [facility] [place] [address] * eGFR (01/01/2019 6:15 AM CDT) eGFR 98 mL/min/1.7 3 m2 [facility] Comment: Interpretive Data Reference Interval Normal ?>/= 90 mL/min/1.73m2 Mildly decreased* ? 60 - 89 mL/min/1.73m2 Mildly to moderately decreased ?45 - 59 mL/min/1.73m2 Moderately to severely decreased ??30 - 44 mL/min/1.73m2 Severely decreased ?15 - 29 mL/min/1.73m2 Kidney Failure ?< 15 ??mL/min/1.73m2 *Relative to young adult level If -Canadian multiply value by 1.16. Estimated glomerular filtration [...] Narrative [facility] - 01/01/2019 7:36 AM CDT Melvin Caro MD LAB BLOOD ORDERABLES F inal Result [facility] [address] Department [place] [address] * Differential, auto (01/01/2019 6:15 AM CDT) [facility] Neutrophil abs 3.6 1.7 - 6.5 K/cumm [facility] Imm gran abs 0.0 0.0 - 0.1 K/cumm [facility] Lymphocyte abs 2.6 0.8 - 3.3 K/cumm [facility] Monocyte abs 0.7 0.2 - 0.8 K/cumm [facility] Eosinophil abs 0.2 0.0 - 0.5 K/cumm [facility] Basophil abs 0.1 0.0 - 0.1 K/cumm [facility] Neutrophil pct 49.8 % [facility] Comment: Interpretive Data Percent cell count reference ranges are not reported, since discordance with absolute values may lead to misinterpretation of CBC data. Current Interpretive Data was last revised on 2017. Imm gran pct 0.3 % [facility] Comment: Interpretive Data Percent cell count reference ranges are not reported, since discordance with absolute values may lead to misinterpretation of CBC data. Current Interpretive Data was last revised on 2017. Lymphocyte pct 36.1 % [facility] Comment: Interpretive Data Percent cell count reference ranges are not reported, since discordance with absolute values may lead to misinterpretation of CBC data. Current Interpretive Data was last revised on 2017. Monocyte pct 9.3 % [facility] Comment: Interpretive Data Percent cell count reference ranges are not reported, since discordance with absolute values may lead to misinterpretation of CBC data. Current Interpretive Data was last revised on 2017. Eosinophil pct 3.5 % [facility] Comment: Interpretive Data Percent cell count reference ranges are not reported, since discordance with absolute values may lead to misinterpretation of CBC data. Current Interpretive Data was last revised on 2017. Basophil pct 1.0 % [facility] Comment: Interpretive Data Percent cell count reference ranges are not reported, since discordance with absolute values may lead to misinterpretation of CBC data. Current Interpretive Data was last revised on 2017. Blood specimen (specimen) 01/01/2019 6:15 AM CDT 01/01/2019 7:02 AM CDT Narrative [facility] - 01/01/2019 7:09 AM CDT us Melvin Caro MD LAB BLOOD ORDERABLES F inal Result [facility] [address] Department [place] [address] * Magnesium (01/01/2019 6:15 AM CDT) Magnesium 1.9 1.4 - 2.5 mg/dL [facility] Blood specimen (specimen) 01/01/2019 6:15 AM CDT 01/01/2019 7:02 AM CDT Narrative [facility] - 01/01/2019 7:36 AM CDT Zan Lee MD LAB BLOOD ORDERABLES Final Res ult [facility] [address] [place] [address] * (ABNORMAL) Basic metabolic panel (01/01/2019 6:15 AM CDT) Sodium 139 135 - 145 mmol/L [facility] Potassium, pl 4.8 3.3 - 4.9 mmol/L [facility] Chloride 99 97 - 110 mmol/L [facility] CO2 27 22 - 32 mmol/L [facility] Anion gap 13 2 - 15 mmol/L [facility] BUN 17 8 - 25 mg/dL [facility] Creatinine 0.59(L) 0.60 - 1.10 mg/dL [facility] Glucose 127 70 - 199 mg/dL [facility] Comment: Interpretive Data Fasting glucose [...] 2017. Calcium 9.8 8.5 - 10.3 mg/dL [facility] [place] Blood specimen (specimen) 01/01/2019 6:15 AM CDT 01/01/2019 7:02 AM CDT Narrative [facility] - 01/01/2019 7:36 AM CDT Zan Lee MD LAB BLOOD ORDERABLES Final Res ult Performing Organization Address City/[facility]/ZIP Co de Phone Number [facility] [place] [address] [place] [address] * (ABNORMAL) CBC with auto differential (01/01/2019 6:15 AM CDT) WBC 7.2 3.8 - 9.9 K/cumm [facility] Hgb 16.6(H) 11.9 - 15.5 g/dL [facility] Hct 51.8(H) 35.6 - 45.5 % [facility] Plt 306 150 - 400 K/cumm [facility] MPV 10.2 9.1 - 12.3 fL [facility] RBC 5.29(H) 3.90 - 5.20 M/cumm [facility] MCV 97.9(H) 81.3 - 96.4 fL [facility] MCH 31.4 27.1 - 33.3 pg [facility] MCHC 32.0(L) 32.3 - 35.7 g/dL [facility] RDW CV 12.1 11.1 - 14.9 % [facility] RDW SD 43.6 35.7 - 48.1 fL [facility] NRBC abs 0.00 0.00 - 0.01 K/cumm [facility] Blood specimen (specimen) 01/01/2019 6:15 AM CDT 01/01/2019 7:02 AM CDT Narrative [facility] - 01/01/2019 7:09 AM CDT Zan Lee MD LAB BLOOD ORDERABLES Final Res ult [facility] [address] [place] [address] * POCT glucose (01/01/2019 5:58 AM CDT) Glucose, POC 130 70 - 199 mg/dL [facility] Blood specimen (specimen) 01/01/2019 5:58 AM CDT 01/01/2019 5:58 AM CDT Narrative [facility] - 01/01/2019 6:05 AM CDT Naga Enriquez MD LAB POCT ORDERABLES - DEVICE Fi nal Result Performing Organization Address [facility] de Phone Number [facility] [address] [facility] [place] [address] * POCT glucose (01/01/2019 2:29 AM CDT) Glucose, POC 105 70 - 199 mg/dL [facility] Blood specimen (specimen) 01/01/2019 2:29 AM CDT 01/01/2019 2:29 AM CDT Narrative [facility] - 01/01/2019 2:35 AM CDT Naga Enriquez MD LAB POCT ORDERABLES - DEVICE Fi nal Result Performing Organization Address [facility] de Phone Number [facility] [address] [facility] [place] [address] * POCT glucose (01/01/2019 1:07 AM CDT) Glucose, POC 122 70 - 199 mg/dL [facility] Blood specimen (specimen) 01/01/2019 1:07 AM CDT 01/01/2019 1:07 AM CDT Narrative [facility] - 01/01/2019 1:08 AM CDT Naga Enriquez MD LAB POCT ORDERABLES - DEVICE Fi nal Result Performing Organization Address [facility] de Phone Number [facility] MAG[facility]ON [address] [place] [address] * POCT glucose (12/31/2018 8:48 PM CDT) Glucose, POC 112 70 - 199 mg/dL [facility] Blood specimen (specimen) 12/31/2018 8:48 PM CDT 12/31/2018 8:48 PM CDT Narrative [facility] - 12/31/2018 9:09 PM CDT Naga Enriquez MD LAB POCT ORDERABLES - DEVICE Fi nal Result Performing Organization Address [facility] Co de Phone Number [facility] MAG[facility]ON [address] [facility] [employer] [address] [place], [place] [id number] * POCT glucose (12/31/2018 5:21 PM CDT) Glucose, POC 109 70 - 199 mg/dL [facility] Blood specimen (specimen) 12/31/2018 5:21 PM CDT 12/31/2018 5:21 PM CDT Narrative [facility] - 12/31/2018 5:23 PM CDT Naga Enriquez MD LAB POCT ORDERABLES - DEVICE Fi nal Result Performing Organization Address [facility] de Phone Number [facility]ON [address] [place] [address] * Type and screen (12/31/2018 1:05 PM CDT) Twyla, indirect Negative [facility] ABO Rh O Positive [facility] Blood specimen (specimen) 12/31/2018 1:05 PM CDT 12/31/2018 1:16 PM CDT Narrative [facility] [place] - 12/31/2018 1:57 PM CDT Has the patient had Daratumumab (Darzalex) in the past 6 months?->Unknown Zan Lee MD LAB BLOOD BANK TEST ORDERABLES Final Result Performing Organization Address [facility] Co de Phone Number [facility] MAG[facility] [address] [facility] [place] [address] * POCT glucose (12/31/2018 12:25 PM CDT) Glucose, POC 99 70 - 199 mg/dL [facility] Blood specimen (specimen) 12/31/2018 12:25 PM CDT 12/31/2018 12:25 PM CDT Narrative [facility] - 12/31/2018 12:26 PM CDT Naga Enriquez MD LAB POCT ORDERABLES - DEVICE Fi nal Result [facility] [address] [place] [address] * XR Chest Pa Lateral 2 Views [...] AM CDT) eGFR 98 mL/min/1.7 3 m2 [facility] [place] Comment: Interpretive Data Reference Interval Normal ?>/= 90 mL/min/1.73m2 Mildly decreased* ? 60 - 89 mL/min/1.73m2 Mildly to moderately decreased ?45 - 59 mL/min/1.73m2 Moderately to severely decreased ??30 - 44 mL/min/1.73m2 Severely decreased ?15 - 29 mL/min/1.73m2 Kidney Failure ?< 15 ??mL/min/1.73m2 *Relative to young adult level If -Canadian multiply value by 1.16. Estimated glomerular filtration [...] Narrative [facility] - 12/31/2018 7:38 AM CDT Melvin Caro MD LAB BLOOD ORDERABLES F inal Result [facility] [address] [place] [address] * Differential, auto (12/31/2018 6:42 AM CDT) Pathologist [facility] Neutrophil abs 4.0 1.7 - 6.5 K/cumm [facility] Imm gran abs 0.0 0.0 - 0.1 K/cumm [facility] Lymphocyte abs 1.9 0.8 - 3.3 K/cumm [facility] Monocyte abs 0.6 0.2 - 0.8 K/cumm [facility] Eosinophil abs 0.3 0.0 - 0.5 K/cumm [facility] Basophil abs 0.1 0.0 - 0.1 K/cumm [facility] Neutrophil pct 57.6 % [facility] Comment: Interpretive Data Percent cell count reference ranges are not reported, since discordance with absolute values may lead to misinterpretation of CBC data. Current Interpretive Data was last revised on 2017. Imm gran pct 0.4 % [facility] Comment: Interpretive Data Percent cell count reference ranges are not reported, since discordance with absolute values may lead to misinterpretation of CBC data. Current Interpretive Data was last revised on 2017. Lymphocyte pct 28.0 % [facility] Comment: Interpretive Data Percent cell count reference ranges are not reported, since discordance with absolute values may lead to misinterpretation of CBC data. Current Interpretive Data was last revised on 2017. Monocyte pct 9.2 % [facility] Comment: Interpretive Data Percent cell count reference ranges are not reported, since discordance with absolute values may lead to misinterpretation of CBC data. Current Interpretive Data was last revised on 2017. Eosinophil pct 3.9 % [facility] Comment: Interpretive Data Percent cell count reference ranges are not reported, since discordance with absolute values may lead to misinterpretation of CBC data. Current Interpretive Data was last revised on 2017. Basophil pct 0.9 % [facility] Comment: Interpretive Data Percent cell count reference ranges are not reported, since discordance with absolute values may lead to misinterpretation of CBC data. Current Interpretive Data was last revised on 2017. Blood specimen (specimen) 12/31/2018 6:42 AM CDT 12/31/2018 7:09 AM CDT Narrative [facility] - 12/31/2018 7:17 AM CDT us Melvin Caro MD LAB BLOOD ORDERABLES F inal Result [facility] [address] [place] [address] * Magnesium (12/31/2018 6:42 AM CDT) Magnesium 1.9 1.4 - 2.5 mg/dL [facility] Blood specimen (specimen) 12/31/2018 6:42 AM CDT 12/31/2018 7:09 AM CDT Narrative [facility] - 12/31/2018 7:38 AM CDT Zan Lee MD LAB BLOOD ORDERABLES Final Res ult [facility] [address] [place] [address] * (ABNORMAL) Basic metabolic panel (12/31/2018 6:42 AM CDT) Sodium 140 135 - 145 mmol/L [facility] Potassium, pl 4.3 3.3 - 4.9 mmol/L [facility] Chloride 102 97 - 110 mmol/L [facility] CO2 26 22 - 32 mmol/L [facility] Anion gap 12 2 - 15 mmol/L [facility] BUN 15 8 - 25 mg/dL [facility] Creatinine 0.59(L) 0.60 - 1.10 mg/dL [facility] Glucose 147 70 - 199 mg/dL [facility] Comment: Interpretive Data Fasting glucose [...] 2017. Calcium 9.0 8.5 - 10.3 mg/dL [facility] [place] Blood specimen (specimen) 12/31/2018 6:42 AM CDT 12/31/2018 7:09 AM CDT Narrative [facility] - 12/31/2018 7:38 AM CDT us Zan Lee MD LAB BLOOD ORDERABLES Final Res ult Performing Organization Address City/[facility]/ZIP Co de Phone Number [facility] [place] [address] [employer] [place], [place] [id number] * CBC with auto differential (12/31/2018 6:42 AM CDT) WBC 6.9 3.8 - 9.9 K/cumm [facility] Hgb 14.6 11.9 - 15.5 g/dL [facility] Hct 44.9 35.6 - 45.5 % [facility] Plt 255 150 - 400 K/cumm [facility] MPV 9.9 9.1 - 12.3 fL [facility] RBC 4.71 3.90 - 5.20 M/cumm [facility] MCV 95.3 81.3 - 96.4 fL [facility] MCH 31.0 27.1 - 33.3 pg [facility] MCHC 32.5 32.3 - 35.7 g/dL [facility] RDW CV 12.1 11.1 - 14.9 % [facility] RDW SD 42.4 35.7 - 48.1 fL [facility] NRBC abs 0.00 0.00 - 0.01 K/cumm [facility] Blood specimen (specimen) 12/31/2018 6:42 AM CDT 12/31/2018 7:09 AM CDT Narrative [facility] - 12/31/2018 7:17 AM CDT us Zan Lee MD LAB BLOOD ORDERABLES Final Res ult [facility] [place] [address] [employer] [place], [place] [id number] * Hemoglobin A1c (12/31/2018 6:42 AM CDT) Hgb A1C 5.5 4.0 - 5.6 % [facility] Estimated Average Glucose 111 mg/dL [facility] Comment: The ADA recommends reporting an estimated Average Glucose (eAG) with all Hemoglobin A1c results using the equation derived from a study of 507 normal and diabetic adults. ??Minority populations were underrepresented and children were not included. ?? (Diabetes Care 31:7599-9574, 2008). ??The eAG is not equivalent to a fasting glucose. Blood specimen (specimen) 12/31/2018 6:42 AM CDT 12/31/2018 7:59 AM CDT Narrative ESTHELA - 12/31/2018 8:24 AM CDT us Melvin Caro MD LAB BLOOD ORDERABLES F inal Result Performing Organization Address [facility] Co de Phone Number REJIWILBER [id number] [address] [facility] ABC Live [place] [phone] * Check Sample (12/31/2018 6:38 AM CDT) ABO Rh O Positive REJIWILBER HCLL OTHER 12/31/2018 6:38 AM CDT 12/31/2018 1:54 PM CDT Narrative ESTHELA - 12/31/2018 2:17 PM CDT Naga Enriquez MD LAB BLOOD ORDERABLES Final Resu lt Performing Organization Address [facility] de Phone Number [facility] [place] [address] [address] [facility] [place] [address] * POCT glucose (12/31/2018 6:10 AM CDT) Glucose, POC 130 70 - 199 mg/dL ESTHELA Blood specimen (specimen) 12/31/2018 6:10 AM CDT 12/31/2018 6:10 AM CDT Narrative ESTHELA - 12/31/2018 6:30 AM CDT Melvin Caro MD LAB POCT ORDERABLES - DEVICE Final Result Performing Organization Address [facility] de Phone Number [facility] [facility] [place] [address] [address] [facility] [place] [address] * POCT glucose (12/31/2018 2:37 AM CDT) Glucose, POC 145 70 - 199 mg/dL ESTHELA MAGALLON Blood specimen (specimen) 12/31/2018 2:37 AM CDT 12/31/2018 2:37 AM CDT Narrative ESTHELA MAGALLON - 12/31/2018 2:38 AM CDT us Melvin Caro MD LAB POCT ORDERABLES - DEVICE Final Result ESTHELA MAGALLON [id number] [address] [facility] [place] [address] documented in this encounter Visit Diagnoses Not [...] Given 12/31/2018 8:49 PM CDT 20 mg atropine injection Administer over 1 Minutes, As needed, Starting on Sun01/01/19 at 1107, Intra-Procedure (CV) Given 01/01/2019 11:07 AM CDT 0.5 mg ciprofloxacin (CIPRO) tablet 500 mg 500 mg, oral, 2 times daily, First dose on Sun12/31/18 at 1115, For 5 days, Indications: Urinary Tract/Genitourinary InfectionIndications:Urinary Tract/Genitourinary Infection Given 01/02/2019 9:13 AM CDT 500 mg Given 01/01/2019 8:19 PM CDT 500 mg Given 01/01/2019 1:40 PM CDT 500 mg clopidogrel (PLAVIX) tablet 75 mg 75 [...] swallow/take PO glucose/juice., Starting on Sun12/31/18 at 315, After treatment for hypoglycemia, recheck BG followed by treatment every 15 minutes until the BG is greater than 100 mg/dL. Then check BG 1 hour post treatment. If BG is less than 100 mg/dL, repeat Q15 minute BG checks and treatment. Call MD for each episode of hypoglycemia., Indications: hypoglycemic disorderIndications:hypoglycemic disorder dextrose oral liquid liquid 15 g 15 g, oral, Every 15 min PRN, low blood sugar, blood glucose less than 70 mg/dL, Starting on Sun12/31/18 at 315, If patient is alert and able to [...] for each episode of hypoglycemia., Indications: hypoglycemic disorderIndications:hypoglycemic disorder glucagon injection 1 mg 1 mg, intramuscular, Administer over 1 Minutes, Every 30 min PRN, low blood sugar, blood glucose less than 70 mg/dL AND no IV access AND unable to take PO glucose/jiuce., Starting on Sun12/31/18 at 315, After Glucagon is administered, position patient on [...] for each episode of hypoglycemia., Indications: HypoglycemiaIndications:Hypoglycemia heparin 1,000 unit/mL injection As needed, Starting on Sun01/01/19 at 1025, Intra-Procedure (CV) Given 01/01/2019 10:57 AM CDT 3,000 Units Given 01/01/2019 10:47 AM CDT 3,000 Units Given 01/01/2019 10:25 AM CDT 8,500 Units heparin 5,000 unit/mL injection 5,000 Units 5,000 Units, subcutaneous, Every 8 hours scheduled, First dose on Sun12/31/18 at 0600, Indications: Deep Vein Thrombosis PreventionIndications:Deep Vein Thrombosis Prevention Given 01/02/2019 5:39 AM CDT 5,000 Units Right Lower Abdomen Given 01/01/2019 10:20 PM CDT 5,000 Units Left Upper Abdomen Given 01/01/2019 1:42 PM CDT 5,000 Units L eft Lower Abdomen heparin in 0.9% sodium chloride 1000 units/500 mL (2 unit/mL) infusion (premix) As needed, Starting on Sun01/01/19 at 1001, Intra-Procedure (CV) Given 01/01/2019 10:07 AM CDT 500 mL Other (Comment) Given 01/01/2019 10:01 AM CDT 500 mL insulin lispro (HumaLOG) injection 1-2 Units 1-2 Units, subcutaneous, Every 6 hours scheduled, First dose on Sun12/31/18 at 0600, Blood Sugar Low Dose NPO patients 200 or less No Insulin 201 - 250 1 unit 251 - 299 2 units Greater than 299 Call MD for hyperglycemia management instructions Do NOT hold for NPO status., Indications: Diabetes MellitusIndications:Diabetes Mellitus ioversol (OPTIRAY 350) injection As needed, Starting on Sun01/01/19 at 1015, Intra-Procedure (CV) Given 01/01/2019 10:15 AM CDT 100 mL labetalol (NORMODYNE,TRANDATE) injection As needed, Starting on Sun01/01/19 at 1047, Intra-Procedure (CV) Given 01/01/2019 11:05 AM CDT 10 mg Given 01/01/2019 10:47 AM CDT 10 mg levothyroxine (SYNTHROID, LEVOTHROID) tablet 75 mcg 75 mcg, oral, Daily (early AM), First dose (after last modification) on Sun12/31/18 at 0600, Administer on an empty stomach, preferably 30 minutes before breakfast. Take 4 hours apart from antacids, iron and calcium products. Given 01/02/2019 5:41 AM CDT 75 mcg Given 12/31/2018 8:02 AM CDT 75 mcg lidocaine (XYLOCAINE) 10 mg/mL (1 %) injection As needed, Starting on Sun01/01/19 at 1015, Intra-Procedure (CV), Indications: Administration of Local AnesthesiaIndications:Administratio n of Local Anesthesia Given 01/01/2019 10:15 AM CDT 10 mL Right Groin losartan (COZAAR) tablet 50 mg 50 mg, [...] Given 01/01/2019 1:45 PM CDT 10 mL sodium chloride 0.9% infusion Continuous PRN, Starting on Sun01/01/19 at 1001, Intra-Procedure (CV) New Bag 01/01/2019 10:01 AM CDT 75 mL/hr 75 mL/hr documented in this encounter Discontinued Medications Medication [...] surgical consult) 1339 (Given - Provider: Jeaneth Rapp RN) 0913 (Given - Provider: Marilia Boone RN) atorvastatin (LIPITOR) tablet 20 mg 20 mg, oral, Daily, First dose (after last modification) on Sun12/31/18 at 2100 2048 (Given - Provider: Tonja Faria RN) 2018 (Given - Provider: Deniz Croft RN) ciprofloxacin (CIPRO) tablet 500 mg 500 mg, oral, 2 times daily, First dose on Sun12/31/18 at 1115, For 5 days, Indications: Urinary Tract/Genitourinary Infection 1319 (Given - Provider: Lashell Duarte RN)2048 (Given - Provider: Tonja Faria RN) 1340 (Given - Provider: Jeaneth Rpap RN)2018 (Given - Provider: Deniz Croft RN) 0913 (Given - Provider: Marilia Booen RN) clopidogrel (PLAVIX) tablet 150 mg (COMPLETED) 150 mg, oral, Once, On Sun12/31/18 at 1300, For 1 dose 1319 (Given - Provider: Lashell Duarte RN) clopidogrel (PLAVIX) tablet 150 mg [...] Jeaneth Rapp RN)2220 (Given - Provider: Deniz Croft, JUSTICE) 0539 (Given - Provider: Deniz Croft RN) [...] Lashell Duarte RN)2049 (Given - Provider: Tonja Elle Kehe, RN) 1245 (Not Given - Provider: Jeaneth Rapp RN - Reason: Other)2018 (Not Given - Provider: Deniz Croft RN - Reason: Contraindicated) 09 (Given - Provider: Marilia Boone RN) PARoxetine [...] size. 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, shortness of breath, Starting on Sun12/31/18 [...] Count Last Ordered Date First Ordered Date DOPamine in dextrose 5% 400 mg/250 mL (1600 mcg/mL) infusion (premix) 1 01/01/2019 famotidine (PEPCID) injection 20 mg 1 01/01 niCARdipine (CARDENE) 25,000 mcg in sodium chloride 0.9% 250 mL (100 mcg/mL) infusion 1 01/01/2019 niCARdipine in 0.9% sodium c hloride (CARDENE) 20,000 mcg/200 mL (100 mcg/mL) infusion (premix) 1 01/01/2019 sodium chloride 0.9% flush 0.5-20 mL 2 03/2019 acetaminophen (TYLENOL) tablet 650 mg 1 02/2019 aspirin enteric coated tablet 81 mg 1 12/31 atorvastatin (LIPITOR) tablet 20 mg 1 12/31 ciprofloxacin (CIPRO) tablet 500 mg 1 12/31 clopidogrel (PLAVIX) tablet 150 mg 2 2018 clopidogrel (PLAVIX) tablet 75 mg 1 019 dextrose (D10W) 10% bolus 250 mL 1 01/01/20 19 dextrose oral liquid liquid 15 g 1 01/01/20 19 glucagon injection 1 mg 1 12/31/2018 heparin 5,000 unit/mL inject ion 5,000 Units 1 12/31/2018 insulin lispro (HumaLOG) inj ection 1-2 Units 1 12/31/2018 ipratropium-albuterol (DUO-N EB) 0.5-2.5 mg/3 mL nebulizer solution 3 mL 1 12/31/2018 levoFLOXacin (LEVAQUIN) tablet 750 mg 1 02/2019 levothyroxine (SYNTHROID, LE VOTHROID) tablet 75 mcg 1 12/31/2018 losartan (COZAAR) tablet 50 mg 1 12/31/2018 metoprolol (LOPRESSOR) tablet 25 mg 1 12/31 ondansetron (ZOFRAN) injection 4 mg 1 12/31 ondansetron ODT (ZOFRAN-ODT) disintegrating tablet 4 mg 1 12/31/2018 PARoxetine (PAXIL) tablet 20 mg 1 9 Lab Orders Without Results Count Last Ordered [...] IP CONSULT TO NUTRITION SERVICES 1 01/01/20 19 IP CONSULT TO VASCULAR SURGERY 1 12/31/2018 [...] 12/31/2018 documented in this encounter Care Teams 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
--- OUTSIDE RECORDS SUMMARY | 2024-08-30 18:59 | XMS_ITS | Encounter Summary ---
Author Organization [facility] Address [address] [place] [address] Care Team Providers Care Advanced Practice Nurse Name Role Phone Unavailable Primary Care Provider Unavailabl e Encounter Details Date Type Department Care Team ([facility] st Contact Info) Description 04/13/2014 12:10 PM CDT - 04/13/2014 11:59 PM CDT Hospital Encounter [facility] [address] [facility] [address] [place], [place] [id number] Other dyspnea and respiratory abnormality; Disorder of diaphragm Social History Tobacco Use Types Packs/Day Years Used Date Smoking Tobacco: Former Comments Unknown Sex and Gender Information Value Date Recorded Sex Assigned at Not on file 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 Account: ??[id number] ? Room No: : ?1955 ? Patient Type: ?ANC Attend.: ??Justino Doyle ? Admit Date: ??04/13/2014 Dict.: ?Andres Antony M.D. ?Disch. Date: 04/13/2014 TEST DATE 04/13/2014 REFERRING PHYSICIAN Justino Doyle. DIAGNOSIS Paralyzed diaphragm. RESULTS FVC 1.69 liters, 48% predicted, FEV1 1.27 liters, 47% predicted. FEV1/FVC ratio 75%. TLC is 3.74 liters, 71% predicted, DLCO 11.57 mL/minute/mmHg, 45% of predicted. INTERPRETATION Severe reduction in FVC and FEV1 with normal FEV1/FVC ratio. Lung volume shows decreased TLC. Diffusion capacity is decreased. IMPRESSION No obstructive defect. Severe restrictive defect. The reduction in diffusion capacity can be seen in patients who have interstitial lung disease, pulmonary vascular disease, or emphysema. Please correlate clinically. Andres Antony M.D. DT/genaro Job #: ??[id number] DD: ??04/15/2014 10:16 TD: ??04/15/2014 13:17 Authenticated and Edited by Andres Antony MD On 04/15/14 3:07:52 PM us Historical Provider PFT ORDERABLES Final Res ult documented in this encounter Visit Diagnoses Diagnosis Other dyspnea and respiratory abnormality Disorder of diaphragm Disorders of diaphragm documented in this encounter
--- OUTSIDE RECORDS SUMMARY | 2024-08-30 18:59 | XMS_ITS | Encounter Summary ---
Author Organization [facility] Address [address] [place] [address] Care Team Providers Care Senior Product Analyst Name Role Phone Robbie Haywood MD Primary Care Provider [phone] Reason for Visit * Reason Comments Weakness - Generalized Encounter Details Date Type Department Care Team (Late st Contact Info) Description 12/29/2018 1:33 PM CDT - 12/31/2018 1:21 AM CDT Hospital Encounter [facility] Acute Medicine [address] [place] [address] Tobias Hancock MD 1 [facility] [address] [place] [address] Donovan Bush MD [address] [facility] [address] [place] [address] Aurora Luis MD 1 [facility] [address] [place] [address] TIA (transient ischemic attack) (Primary Dx); Acute cystitis without hematuria; Pneumonia of right lower lobe due to infectious organism (CMS/HCC) Discharge Disposition: Discharge to a short term hospital for IP Social History Tobacco Use Types Packs/Day Years [...] on file Legal 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 Gender Identity Not on file Sexual Orientation Not on file documented as of this encounter Last Filed Vital Signs Vital Sign Reading Time Taken Comments Blood Pressure 179/85 12/30/2018 11:42 PM CDT Pulse 78 12/31/2018 12:00 AM CDT Temperature 36.1 ??C (96.9 ??F) 12/30/2018 1 1:42 PM CDT Respiratory Rate 16 12/30/2018 11:4 2 PM CDT Oxygen Saturation 95% 12/30/2018 11: 42 PM CDT Inhaled Oxygen Concentration - - Weight 103.7 kg (228 lb 9.9 oz) 12/29/2018 9:10 PM CDT Height 165.1 cm (5' 5 ) 12/30/2018 7:01 AM CDT Body Mass Index 38.04 12/29/2018 9:10 PM CDT documented in this encounter Discharge Summaries * Aurora Luis MD - 12/31/2018 1:21 AM CDT Inpatient Discharge Summary BRIEF OVERVIEW Admitting Provider: Aurora Luis MD Discharge Provider: Aurora Luis MD Primary Care Physician at Discharge: Robbie Haywood MD [phone] Admission Date: 12/29/2018 Discharge Date: 12/30/18 Primary Discharge Diagnosis: TIA Secondary Discharge Diagnosis: Left internal carotid artery disease DETAILS OF HOSPITAL STAY Presenting Problem/History of Present Illness: Patient is a 63 y.o. female with a PMHx significant for hypertension diabetes, history of coronary artery disease prior history of stent presents to the ED with a chief complaint of sudden onset of right-sided weakness and numbness lasted approximately 20 to 30 minutes. Please refer to H&P for further details Hospital Course: TIA: Symptoms resolved patient is on aspirin and statin. CT angiogram showed left internal carotid artery disease with 75%. MRI showed no acute stroke. Neurology was consulted recommended, Vascular surgeon evaluation. Patient will be transferring to [facility] for further evaluation and management UTI: Patient on antibiotics Test Results Pending at Discharge: Operative Procedures Performed: Other Procedures: Pertinent Test Results: Mri brain Ct angiogram Discharge Details Physical Exam at Discharge: Discharge Condition: stable Pulse: 78 Resp: 16 BP: (!) 179/85 Temp: 36.1 ??C (96.9 ??F) Weight: 103.7 kg (228 lb 9.9 oz) BP (!) 179/85 (BP Location: Right arm, Patient Position: Lying) Pulse 78 Temp 36.1 ??C (96.9 ??F) (Temporal) Resp 16 Ht 165.1 cm (5' 5 ) Wt 103.7 kg (228 lb 9.9 oz) SpO2 95% BMI 38.04 kg/m?? Pertinent Exam Findings at Discharge: General appearance: Alert, oriented, in no distress. HEENT: No pallor no icterus CVS: S1, S2 normal Respiration: Clear to auscultation bilaterally Abdomen: Soft, nontender, nondistended, bowel sounds normoactive Extremities: No pedal edema, no calf tenderness Neuro: Awake alert Psychiatric: Normal mood and affect Labs at discharge: No results found for this or any previous visit (from the past 24 hour(s)). Discharge Disposition: Discharge to home or self care Prior Discharge Instructions: Discharge Medications: Your medication list ASK your doctor about these medications aspirin 81 mg enteric coated tablet clopidogrel 75 mg tablet Commonly known as: PLAVIX levothyroxine 75 mcg tablet Commonly known as: SYNTHROID, LEVOTHROID losartan 50 mg tablet Commonly known as: COZAAR metFORMIN 1,000 mg tablet Commonly known as: GLUCOPHAGE metoprolol 25 mg tablet Commonly known as: LOPRESSOR PARoxetine 20 mg tablet Commonly known as: PAXIL simvastatin 40 mg tablet Commonly known as: ZOCOR Outpatient Follow-Up: No future appointments. Follow-up with primary care physician in 1 week Time Spent on Discharge: 70 mins Time spent regarding the patient care today is 70 minutes discussing with the beauty sales consultant patient and arranging for transfer to [facility]. I did talk to the on-call hospitalist and Dr. Lee vascular surgeon who accepted to be on consult. Voice recognition software YooDeal Direct was used dictate and transcribe this document. Systems Software Developer variances may occur. 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 truck driver before breakfast 3 12/05/2018 metFORMIN (GLUCOPHAGE) 1,000 mg tablet Take 1 tablet (1,000 mg total) by mouth 2 (two) times a day with meals 3 12/05/2018 PARoxetine (PAXIL) 20 mg tablet Take 40 mg by mouth daily 1 ciprofloxacin (CIPRO) 500 mg tabletIndication s:Urinary Tract/Genitourin [...] times a day 30 tablet 01/02/2019 9 simvastatin (ZOCOR) 40 mg tablet Take 40 mg by mouth nightly 2 documented as of this encounter Discharge Disposition Disposition Code Departure Means Destination Discharge to a short term hospital for [place] documented in this encounter Progress Notes * Marycarmen Johnston, RD - 12/30/2018 7:04 AM CDT [facility] Nutrition Assessment NAME:Tressa Myers :1955 AGE:63 y.o. SEX: female ADMISSION DATE:12/29/2018, CURRENT LOS is 0 days. ENCOUNTER DATE: 12/30/18 7:04 AM REASON for ASSESSMENT: Screened at Nutrition Risk and Initial Nutrition Assessment DX: TIA (transient ischemic attack) [G45.9] Acute cystitis without hematuria [N30.00] Pneumonia of right lower lobe due to infectious organism (CMS/HCC) [J18.1] Nutrition Screen What diet do you follow at home?: Regular Have You Recently Lost Weight Without Trying?: No Poor Oral Intake for Four or More Days Prior to Admission: No Current diet order: Adult Diet Restricted; Low Fat, Low Chol, Low Na, 2 GM Sodium Pt intake na. PO intakes: none noted ALLERGIES: Cefazolin ASPEN Malnutrition Assessment: Nutrition Focused Physical Exam Notes: Nutrition Needs Calculations: Calculated Energy Needs Using Equations Weight Used for Equation Calculations (RD Determined): 103.7 kg (228 lb 9.9 oz) Weight: 103.7 kg (228 lb 9.9 oz) Height: 165.1 cm (5' 5 ) [place] [place] Equation (Overweight or Obese Patients): 1593 Equation Chosen to Use by RD: Bid Nerd Maricel Activity Factor: 1.1 Total Energy Needs: 1752.3 kcal Temp: 36.7 ??C (98 ??F) Total Energy Needs + Fever Factor: 1752.3 Estimated Protein Needs Type of Weight Used for Estimated Protein : Current Protein Needs Based on g/k.8 Total Protein Estimated Needs (gm): 82.96 Kcal/kg Type of Weight Used for Estimated Kcals: Current Kcal/k Total Kcal/kg Estimated Needs : 1866.6 Estimated Fluid Needs Type of Weight Used for Estimated Fluid Needs: Current Fluid Needs Based on : 25 ml/kg Total Fluid Estimated Needs: 2592.5 Estimated Carbohydrate Needs Type of Weight Used for Estimated Carbohydrate Needs: Current Recommended Carbohydrates for Breakfast (gm) : 45 Recommended Carbohydrates for Lunch (gm) : 60 Recommended Carbohydrates for Dinner (gm) : 60 Recommended Carbohydrates for HS Snack (gm) : 15 Total Daily Carbohydrates Recommended (gm): 180 Estimated needs: ?? Total Kcal/kg Estimated Needs : 1866.6 based on Kcal/k. Type of Weight Used for Estimated Kcals: Current ?? MSJ Total Energy Needs: 1752.3 kcal using ?? PHYLLIS State Total Energy Needs + Fever Factor: 1752.3 ?? Total Protein Estimated Needs (gm): 82.96 Protein Needs Based on g/k.8 Type of Weight Used for Estimated Protein : Current. ?? Total Fluid Estimated Needs: 2592.5 Fluid Needs Based on : 25 ml/kg. Objective Anthropometrics Weight: 103.7 kg (228 lb 9.9 oz) Admission Weight : 99.8 kg Weight Change: 3.90 kg (8.61 lbs) IBW/kg (Calculated) : 56.7 kg Height: 165.1 cm (5' 5 ) Weight in (lb) to have BMI = 25: 149.9 BMI (Calculated): 38 3 Day I/O Summary 12/28 1899 - 12/30 0559 In: 550 [P.O.:550] Out: 350 [Urine:350] Temp: 36.7 ??C (98 ??F) [place] body weight: 57 kg (125 lb 10.6 oz) Adjusted ideal body weight: 75.7 kg (166 lb 13.5 oz) Past Medical History: Diagnosis Date ??? History of other diseases of the circulatory system, not elsewhere classified Coronary Artery Disease - Was having SOB outpatient. Had stress echo/EKG outpatient 05/07/13, 1.[address] segment depression noted inferiorly and [address] segment depression noted laterally; EF60-65%, hypokinesis of the distal septum, probably diastolic dysfunction. LHC (05/07/13) (1) Gqrqsff97% narrowings from proximal to distal RCA (2) R large PDA with 50% near ostial narrowing, (3) * ??? Personal history of other diseases of the circulatory system History of hypertension - (Added by TW Conv) ??? Personal history of other diseases of the digestive system History of esophageal reflux - (Added by TW Conv) ??? Personal history of other mental and behavioral disorders History of anxiety disorder - (Added by TW Conv) Medications and Lab Review: Scheduled Meds: clopidogrel 75 mg oral Daily insulin lispro 1-3 Units subcutaneous Nightly insulin lispro 1-5 Units subcutaneous TID with meals levoFLOXacin 750 mg oral Q24H SARAH PARoxetine 20 mg oral BID Continuous Infusions: sodium chloride 0.9% 50 mL/hr Last Rate: 50 mL/hr (12/29/18 3756) Sodium Date Value Ref Range Status 12/30/2018 135 135 - 145 mmol/L Final Potassium, pl Date Value Ref Range Status 12/30/2018 4.0 3.3 - 4.9 mmol/L Final BUN Date Value Ref Range Status 12/30/2018 13 8 - 25 mg/dL Final Creatinine Date Value Ref Range Status 12/30/2018 0.53 (L) 0.60 - 1.10 mg/dL Final Albumin Date Value Ref Range Status 12/29/2018 4.1 3.5 - 5.0 g/dL Final Calcium Date Value Ref Range Status 12/30/2018 9.1 8.5 - 10.3 mg/dL Final No results found for: HGBA1C POC Glucose: 143(/) Nursing Assessment: Walter Scale Score: 22 Skin Integrity: Other (Comment)(scabs) Nutrition Follow-Up : 01/03/19 Nutrition Diagnosis 1: (increased needs) Related to: (hx of DM) Evidenced by: Lab abnormality, Physical finding ?? Interventions: Modify diet ?? Monitoring and Evaluation: Labs, PO intake ?? Goals: Adequate nutrition to meet estimated needs by next assessment ?? Recommendations: Consistent carbohydrate AHA diet ? Nutritional Risk: medium Follow up date: 01/03/[address],LDN * Carlo Ritchie RN - 12/29/2018 4:23 PM CDT 12/29/18 1610 Discharge Planning Type of Residence Apartment Living Arrangements Children Assistance Needed uses no aids, handles her ADL's without diff, goal is to return home, no known barriers to discharge noted at this time, pt choice/OBS info given and signed RAMIRES letter on chart, 6 clicks done * Carlo Ritchie RN - 12/29/2018 4:22 PM CDT 12/29/18 1610 Basic Mobility - 6 Click How much difficulty does the patient have: Turning over in bed 4 How much difficulty does the patient currently have: Sitting down and standing up from a chair witharms? 4 How much difficulty does the patient have: Moving from lying on back to sitting on the side of the bed? 4 How much difficulty does the patient have: Moving to and from a bed to a chair including wheelchair? 4 How much help does the patient currently need: Walk in hospital room? 4 How much help from another person does the patient currently need: Climbing 3-5 steps with a railing? 4 Total Score (range 6-24) 24 * Carlo Ritchie RN - 12/29/2018 4:21 PM CDT 12/29/18 1610 Communications RAMIRES letter given? Yes RAMIRES letter given on: 12/29/18 RAMIRES Letter Given at: 1610 Patient choice (Home Health/Hospice) list given to patient/employee representative? Yes Fiduciary Responsibility Patient/Designated decision maker was informed of [facility] fiduciary relationship as necessary documented in this encounter H&P Notes * Aurora Luis MD - 12/30/2018 3:36 PM CDT History and Physical Date of Service: 12/30/2018 Primary Care Physician: Robbie Haywood MD [phone] SUBJECTIVE: Right-sided weakness HPI : Patient is a 63 y.o. female with a PMHx significant for hypertension diabetes, history of coronary artery disease prior history of stent presents to the ED with a chief complaint of sudden onset of right-sided weakness and numbness lasted approximately 20 to 30 minutes. Concerned and came to the ERby the time she came to the ER had symptoms improved. Patient had a CT scan of the head which showed no acute abnormality patient was admitted for further management. Neurology was consulted. I saw the patient today has right-sided weakness resolved. Patient denies any chest pain any shortness of breath Past Medical History: Diagnosis Date ??? History of other diseases of the circulatory system, not elsewhere classified Coronary Artery Disease - Was having SOB outpatient. Had stress echo/EKG outpatient 05/07/13, 1.[address] segment depression noted inferiorly and [address] segment depression noted laterally; EF60-65%, hypokinesis of the distal septum, probably diastolic dysfunction. [facility] (05/07/13) (1) Jkmbtkd27% narrowings from proximal to distal RCA (2) R large PDA with 50% near ostial narrowing, (3) * ??? Personal history of other diseases of the circulatory system History of hypertension - (Added by TW Conv) ??? Personal history of other diseases of the digestive system History of esophageal reflux - (Added by TW Conv) ??? Personal history of other mental and behavioral disorders History of anxiety disorder - (Added by TW Conv) Past Surgical History: Procedure Laterality Date ??? [place] LIGATE FALLOPIAN TUBE Tubal Ligation - (Added by TW Conv) ??? [place] PRQ TRLUML CORONARY STENT W/ANGIO ONE ART/BRNCH Cath Stent Placement - Xience TOM to LCX (04/2013) (Added by TW Conv) Medications Prior to Admission Medication Sig Dispense Refill Last Dose ??? PARoxetine (PAXIL) 20 mg tablet Take 20 mg by mouth 2 (two) times a day 12/28/2018 at Unknown time ??? aspirin 81 mg enteric coated tablet daily 12/28/2018 at Unknown time ??? clopidogrel (PLAVIX) 75 mg tablet clopidogrel 75 mg tablet cardio 12/28/2018 at Unknown time ??? 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 simvastatin (ZOCOR) 40 mg tablet daily 12/28/2018 at Unknown time Allergies Allergen Reactions ??? Cefazolin Social History Tobacco Use ??? Smoking status: Light Tobacco Smoker Packs/day: 0.25 Types: Cigarettes Substance Use Topics ??? Alcohol use: Never Frequency: Never Family History Problem Relation Age of Onset ??? Coronary artery disease Mother Family history of coronary artery disease - Premature CAD (Added by TW Conv) ??? Coronary artery disease Other Family history of coronary artery disease - Premature CAD (Added by TW Conv) Review of Systems: Review of Systems Ten systems reviewed Denies any headache or double vision or blurred vision. Denies any sore throat. Denies any chest pain or palpitation. Denies any shortness of breath. Denies any nausea. Denies any seizure. Denies anyfever, chills. Denies any weight loss. Patient has increased urinary frequency, OBJECTIVE: Vitals: Arrival Vitals Temp 12/29/18 1340 36.6 ??C (97.9 ??F) Pulse 12/29/18 1340 71 Resp 12/29/18 1340 18 BP 12/29/18 1340 142/76 SpO2 12/29/18 1340 94 % Temp src 12/29/18 1340 Temporal Heart Rate Source -- Patient Position 12/29/18 2100 Sitting BP Location 12/29/18 2100 Left arm FiO2 (%) -- Most Recent : Vitals: 12/30/18 0701 12/30/18 0800 12/30/18 0830 12/30/18 1000 BP: 139/75 BP Location: Right arm Patient Position: Pulse: 74 68 76 Resp: 20 Temp: 36.2 ??C (97.2 ??F) TempSrc: Temporal SpO2: 92% Weight: Height: 165.1 cm (5' 5 ) I/O last 2 completed shifts: In: 550 [P.O.:550] Out: 350 [Urine:350] I/O this shift: In: 460 [P.O.:460] Out: - Physical Exam: Physical Exam General appearance: Alert, oriented, in no distress. HEENT: Atraumatic, normocephalic. Pupils equal and reactive to light. Extraocular movements intact.Moist mucous membrane. CVS: S1, S2 normal Respiration: Clear to auscultation bilaterally Abdomen: Soft, nontender, nondistended, bowel sounds present Extremities: No pedal edema Neuro: Awake alert oriented No focal deficits Psychiatric: Normal mood and affect Lab/Radiology/Diagnostic Review: Recent Results (from the past 24 hour(s)) POCT glucose Collection Time: 12/29/18 7:59 PM Result Value Ref Range Glucose, POC, bld 121 (H) 71 - 98 mg/dL POCT glucose Collection Time: 12/30/18 1:54 AM Result Value Ref Range Glucose, POC, bld 143 (H) 71 - 98 mg/dL Basic metabolic panel Collection Time: 12/30/18 4:33 [...] bld 173 (H) 71 - 98 mg/dL Ct Head Wo Contrast Result Date: [...] ELEVATED VELOCITY SUPPORTS A SEVERE STENOSIS IN VRN03-19% RANGE. 3. MEASURED DIAMETER STENOSIS RIGHT CAROTID BULB OF 74%. 4. MODERATE STENOSES RIGHT COMMON CAROTID ARTERY AND RIGHT EXTRAFORAMINAL CAROTID ARTERY AND LEFT CAROTID BULB, MILD STENOSIS LEFT COMMON CAROTID ARTERY. 5. ANTEGRADE VERTEBRAL FLOW BILATERALLY. Electronically signed by: Zaire Maria M.D Transthoracic Echo (tte) W Bubble Study Result Date: 12/30/2018 Narrative: [address] [address] Echocardiogram Report Patient Name: TRESSA MYERS M : [id number] Study Date: 12/30/2018 07:49:48 Gender: F Tech: WELT BEATER Location: [id number] Ref.Provider: AURORA LUIS Height(Cm): 165 BSA: 2.18 Weight(Kg): 103.4 [...] - 4 ] mmHg LVIDs MM 2.99 [ 2.30 - 3.90 ] cm AV Peak Samir 1.47 [ 1.00 - 1.70 ] m/s LVPWd MM 1.40 [ 0.60 - 1.00 ] cm AV VTI 29.51 cm IVSd MM 1.25 [ 0.60 - 0.90 ] cm LVOT Diam 1.82 [ 1.70 - 2.10 ] cm LA Dimension MM 5.09 [ 2.70 - 3.80 ] cm LVOT Peak Samir 1.14 [ 0.70 - 1.10 ] m/s AoR Diam MM 2.77 [ 2.60 - 3.70 ] cm LVOT VTI 28.91 [20.00 - 30.00 ] cm ACS MM 1.36 [...] Normal left ventricular systolic function with no focalwall motion abnormalities. Normal left ventricular size. Normal [...] calcification. No mitral valve regurgitation is seen. Thereis no hemodynamically significant mitral stenosis by Doppler. [...] Dr Gordy Quispe 2018-12-30 10:04:45 CDT ASSESSMENT/PLAN: 1. TIA : Symptoms resolved. Will continue Plavix and statin. Patient had a MRI which showed no acute stroke, carotid Doppler showed significant stenosis. Neurology was consulted, discussed with Neurology will get a CT angiogram. 2. UTI : Cultures did grow Gram-negative bacillary: Patient was started on levofloxacin, patient has a history of allergy to cephazolin. Will await for the culture and susceptibility results 3. Hypertension: Monitor blood pressure closely will continue losartan and metoprolol 4. Diabetes : Will get HbA1c. Hold metformin. Will place on low-dose sliding scale Full Code ESTIMATED LENGTH OF STAY: Patient needs more than 2 inpatient hospitalization with the present condition I spent 50 min interviewing and examining the patient and writing orders and communicating with thenursing staff and preparing this note Voice recognition software YooDeal Direct was used dictate and transcribe this document. Systems Software Developer variances may occur. Despite proofreading, typographical errors may occur documented in this encounter Consult Notes * Trisha Jesus MD - 12/30/2018 1:15 PM CDTAssociated Order(s): IP CONSULT TO NEUROLOGY Chief complaints: Right-sided weakness, transient History of present illness: Ms. Myers has been referred for evaluation by for the above symptom . She is a very pleasant 63-year-old female, current light smoker, with a history of diabetes, coronary artery disease s/p stenting of circumflex artery, hypertension, diverticulitis, and hypothyroidism, who presented to emergency yesterday for evaluation of transient right sided numbness and weakness. The symptoms started 45 minutes prior to arrival at the ER lasted for approximately 20minutes. Patient reports she suddenly lost feeling in her right arm and right leg and was unable tomove them. She had no strength in right upper extremity and had to physically lift the right arm with the left upper extremity. She had weakness on the right lower extremity but was still able to move. Patient declined any headache, chest pain, chest tightness, shortness of breath, loss of consciousness or diaphoresis before, during, or after this episode. She denies any history of similar episodes in the past however she does report that she had blurring of vision the day prior. It was again transient. Past Medical History: Diagnosis Date ??? History of other diseases of the circulatory system, not elsewhere classified Coronary Artery Disease - Was having SOB outpatient. Had stress echo/EKG outpatient 05/07/13, 1.[address] segment depression noted inferiorly and [address] segment depression noted laterally; EF60-65%, hypokinesis of the distal septum, probably diastolic dysfunction. LHC (05/07/13) (1) Kguwwnm85% narrowings from proximal to distal RCA (2) R large PDA with 50% near ostial narrowing, (3) * ??? Personal history of other diseases of the circulatory system History of hypertension - (Added by TW Conv) ??? Personal history of other diseases of the digestive system History of esophageal reflux - (Added by TW Conv) ??? Personal history of other mental and behavioral disorders History of anxiety disorder - (Added by TW Conv) Social History Socioeconomic History ??? Marital status: Spouse name: Not on file ??? Number of children: Not on file ??? Years of education: Not on file ??? Highest education level: Not on file Occupational History ??? Not on file Social Needs ??? Financial resource strain: Not on file ??? Food insecurity: Worry: Not on file Inability: Not on file ??? Transportation needs: Medical: Not on file Non-medical: Not on file Tobacco Use ??? Smoking status: Light Tobacco Smoker Packs/day: 0.25 Types: Cigarettes Substance and Sexual Activity ??? Alcohol use: Never Frequency: Never ??? Drug use: Yes Types: Marijuana ??? Sexual activity: Not on file Lifestyle ??? Physical activity: Days per week: Not on file Minutes per session: Not on file ??? Stress: Not on file Relationships ??? Social connections: Talks on phone: Not on file Gets together: Not on file Attends hinduism service: Not on file Active member of club or organization: Not on file Attends meetings of clubs or organizations: Not on file Relationship status: Not on file ??? Intimate partner violence: Fear of current or ex partner: Not on file Emotionally abused: Not on file Physically abused: Not on file Forced sexual activity: Not on file Other Topics Concern ??? Not on file Social History Narrative ??? Not on file Family History Problem Relation Age of Onset ??? Coronary artery disease Mother Family history of coronary artery disease - Premature CAD (Added by TW Conv) ??? Coronary artery disease Other Family history of coronary artery disease - Premature CAD (Added by TW Conv) Review of Systems: Constitutional: No weight loss/gain, Fatigue, excessive sweating, fever, chills HEENT: No headache/migraine, hearing loss,change in vision, cataracts Respiratory: No trouble breathing, coughing/wheezing, asthma, snoring Muscle skeletal: No joint pain, muscle pain, back pain, neck pain, limb pain Cardiovascular: No chest pain, palpitations, irregular heart beat, passing out, fainting Vascular: NoTingling, numbness, swelling, discoloration of the extremities Gastrointestinal: No nausea, vomiting, diarrhea, abdominal pain Neurologic: No tremors, has weakness, no numbness, changes in gait, changes in memory Genitourinary: No painful urination, difficulty urination, frequent urination, urinary incontinence, discoloration of urine Reproductive: No hot flash, changes in libido, sexual transmitted disease Metabolic//Endocrine: No sensitivity to heat/cold, abnormal sleep pattern, skin change No hot flash. Psychiatric: No anxiety, depression, mood swings Allergies Allergen Reactions ??? Cefazolin Current Facility-Administered Medications: ??? acetaminophen (TYLENOL) tablet 650 mg, 650 mg, oral, Q4H PRN, Tobias Hancock MD ??? clopidogrel (PLAVIX) tablet 75 mg, 75 mg, oral, Daily, Anika Tapia MD, 75 mg at 12/29/182220 ??? dextrose gel in packet 15 g, 15 g, oral, Q15 Min PRN OR dextrose (D10W) 10% bolus 250 mL, 250 mL, intravenous, Q15 Min PRN, Tobias Hancock MD ??? glucagon injection 1 mg, 1 mg, intramuscular, Q30 Min PRN, Tobias Hancock MD ??? insulin lispro (HumaLOG) pen injection 1-3 Units, 1-3 Units, subcutaneous, Nightly, Tobias Hancock MD ??? insulin lispro (HumaLOG) pen injection 1-5 Units, 1-5 Units, subcutaneous, TID with meals, Tobias Hancock MD, 1 Units at 12/30/18 1259 ??? ipratropium-albuterol (DUO-NEB) 0.5-2.5 mg/3 mL nebulizer solution 3 mL, 3 mL, nebulization, Q4H PRN (RT), Aurora Luis MD ??? levoFLOXacin (LEVAQUIN) tablet 750 mg, 750 mg, oral, Q24H SARAH, Donovan Bush MD, 750 mg at12/29/182220 ??? ondansetron ODT (ZOFRAN-ODT) disintegrating tablet 4 mg, 4 mg, oral, Q6H PRN OR ondansetron(ZOFRAN) injection 4 mg, 4 mg, intravenous, Q6H PRN, Tobias Hancock MD ??? PARoxetine (PAXIL) tablet 20 mg, 20 mg, oral, BID, Anika Tapia MD, 20 mg at 12/30/18 0939 ??? sodium chloride 0.9% infusion, 50 mL/hr, intravenous, Continuous, Tobias Hancock MD, Last Rate: 50 mL/hr at 12/29/182227, 50 mL/hr at 12/29/182227 Physical examination: BP 139/75 (BP Location: Right arm) Pulse 76 Temp 36.2 ??C (97.2 ??F) (Temporal) Resp 20 Ht 165.1 cm (5' 5 ) Wt 103.7 kg (228 lb 9.9 oz) SpO2 92% BMI 38.04 kg/m?? Constitutional: Obese female in no distress HENT: Head: Normocephalic and atraumatic. Mouth/Throat: Oropharynx is clear and moist. Mallampati airway class III Eyes: Conjunctivae and EOM are normal. eye exhibits no discharge. No scleral icterus. Neck: Normal range of motion. Neck supple. No thyromegaly present. Cardiovascular: Normal rate, regular rhythm and normal heart sounds. Exam reveals no gallop and no friction rub. No murmur heard. Pulmonary/Chest: Effort normal and breath sounds normal. No respiratory distress. has no wheezes. has no rales. Exhibits no tenderness. Abdominal: Soft. exhibits no distension and no mass. There is no tenderness. Musculoskeletal: Normal passive range of movements; no muscle tenderness Neurological: Alert and oriented to person, place, and time. Orientation 10/10. Speech was fluent. Comprehension seem to be intact. Visual shah are full to confrontation. Extraocular motions were intact. Pupils reactive to light and accommodation. Face was symmetrical in sensation and strength. Shoulder shrug was 5/5. Tongue was in the midline. Motor: Normal strength. Strength 5/5, both proximally as well as distally in both upper and lower extremities. Reflexes were 1 to 2+. Plantars were downgoing. Sensory was normal temperature and touch. Yglaxe-vwnh-eussfq coordination was normal. Skin: Skin is warm. No rash noted. No erythema. Psychiatric: normal mood and affect. Judgment normal. Review of investigations: Metabolic panel: Sodium 135 compression 4.0 chloride 100, CO2 23, glucose 131, calcium 9.1. CBC: WBC 10.2, hemoglobin 15.2 hematocrit 46.3 platelets 287. Total cholesterol pending. Urinalysis revealed cloudy clarity, 2+ leukocyte esterase positive nitrites more than 50 WBCs and 4+ bacteria. 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 Carotid Doppler study reveals severe stenosis of the right ICA. Moderate stenosis right common carotid. And left carotid bulb. Emergency notes from 12/29/[address] Hancock was reviewed. summary of the report reveals 63-year-old with history of hypertension and diabetes, coronary artery disease diverticulitis presenting with transient right upper lower extremity weakness. Blood sugar normal. Blood pressure slightly high.CT head negative for acute abnormality. Recommended further assess management. Assessment/plan 1. TIA: Ms. Myers is 63-year-old presents with sudden onset neurological changes characterized by transient right upper lower extremity weakness. Profound weakness of the right upper extremity. Significant risk factors for stroke include hypercholesteremia, hypertension, diabetes, and carotid stenosis. Patient is on Plavix. Recommend completing stroke workup including echocardiogram, fasting lipid profile. Continue Plavix. Continue statin therapy. Optimize hypertension. 2. Severe stenosis of the carotid: Patient's carotid Doppler study reveals the above he recommend aCT angiography of the carotids to further assess. 3. UTI: Recommend starting patient antibiotic treatment documented in this encounter Nursing Notes * Jolene Novak RN - 12/31/2018 1:21 AM CDT Patient transferred to [facility] Emergency Department via EMS with cardiac monitoring. Report called to [facility] on the 10th floor. Patient in stable condition, no neurological symptoms. * Reanna Hernandez RN - 12/30/2018 6:54 PM CDT Call received from Dr. Luis. Patient to be transferred to [facility] to Dr. Lee when bed available. Patient informed. Agreeable with treatment plan. States will notify her family. * Reanna Hernandez RN - 12/30/2018 5:23 PM CDT Call received from [facility]. CT Angio results discussed. Recommendation to call Dr. Mitchell PUGA for possible transfer received. Dr. Luis notified. * Reanna Hernandez RN - 12/30/2018 3:30 PM CDT Trio rounds with Dr. Luis at bedside. documented in this encounter ED Notes * Tobias Hancock MD - 12/29/2018 1:56 PM CDT HPI Chief Complaint Patient presents with ??? 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 Patient reports she suddenly lost feeling in her RT arm and RT leg and was unable to move them. Patient denies any headache, chest pain, chest tightness, changes to her vision, SOB, LOC, or diaphoresis before, during, or after this episode. She denies any history of similar episodes in the past. Per EMS, her blood sugar en route was 104. Chart review shows that she underwent a coronary angiogram on 12/30/13, which showed occlusion of theLAD distal to the origian of the first diagonal branch with collateral filling from an enlarged second acute marginal artery with some mild pulmonary edema. At that time her LVEF was 67%. Patient History There are no active problems to display for this patient. Past Medical History: Diagnosis Date ??? History of other diseases of the circulatory system, not elsewhere classified Coronary Artery Disease - Was having SOB outpatient. Had stress echo/EKG outpatient 05/07/13, 1.[address] segment depression noted inferiorly and [address] segment depression noted laterally; EF60-65%, hypokinesis of the distal septum, probably diastolic dysfunction. LHC (05/07/13) (1) Lifuadq64% narrowings from proximal to distal RCA (2) R large PDA with 50% near ostial narrowing, (3) * ??? Personal history of other diseases of the circulatory system History of hypertension - (Added by TW Conv) ??? Personal history of other diseases of the digestive system History of esophageal reflux - (Added by TW Conv) ??? Personal history of other mental and behavioral disorders History of anxiety disorder - (Added by TW Conv) Past Surgical History: Procedure Laterality Date ??? AZ LIGATE FALLOPIAN TUBE Tubal Ligation - (Added by TW Conv) ??? [place] PRQ TRLUML CORONARY STENT W/ANGIO ONE ART/BRNCH Cath Stent Placement - Xience TOM to LCX (04/2013) (Added by TW Conv) Family History Problem Relation Age of Onset ??? Coronary artery disease Mother Family history of coronary artery disease - Premature CAD (Added by TW Conv) ??? Coronary artery disease Other Family history of coronary artery disease - Premature CAD (Added by TW Conv) Social History Tobacco Use ??? Smoking status: Light Tobacco Smoker Packs/day: 0.25 Types: Cigarettes Substance Use Topics ??? Alcohol use: Never Frequency: Never ??? Drug use: Yes Types: Marijuana Social History Social History Narrative ??? Not on file Review of Systems Review of Systems Constitutional: Negative for chills, fatigue and fever. HENT: Negative for congestion, ear pain, rhinorrhea, sneezing and sore throat. Respiratory: Negative for cough, shortness of breath and wheezing. Cardiovascular: Negative for chest pain and palpitations. Gastrointestinal: Negative for abdominal pain, constipation, diarrhea, nausea and vomiting. Genitourinary: Negative for dysuria and frequency. Musculoskeletal: Negative for arthralgias, back pain, myalgias and neck pain. Skin: Negative for rash and wound. Neurological: Positive for weakness and numbness. Negative for dizziness, syncope, light-headednessand headaches. All other systems reviewed and are negative. Physical Exam ED Triage Vitals [12/29/18 1340] Temp Pulse Resp BP SpO2 36.6 ??C (97.9 ??F) 71 18 142/76 94 % Temp src Heart Rate Source Patient Position BP Location FiO2 (%) Temporal -- -- -- -- Physical Exam Constitutional: She is oriented to person, place, and time. She appears well- developed and well-nourished. HENT: Head: Normocephalic and atraumatic. Mouth/Throat: Oropharynx is clear and moist. Eyes: Pupils are equal, round, and reactive to light. EOM are normal. Neck: Normal range of motion. Cardiovascular: Normal rate, regular rhythm and normal heart sounds. Pulmonary/Chest: Effort normal and breath sounds normal. Abdominal: Soft. Musculoskeletal: Normal range of motion. Neurological: She is alert and oriented to person, place, and time. Skin: Skin is warm. Nursing note and vitals reviewed. [facility] Vitals: 12/29/18 1550 BP: Pulse: 62 Resp: 14 Temp: SpO2: 93% Labs Reviewed URINALYSIS AND REFLEX TO MICROSCOPIC AND CULTURE - Abnormal Result Value Color, ur Yellow Clarity, ur Cloudy (*) Specific gravity, ur 1.022 pH, urine 5.5 Protein, ur ql 1+ (*) Glucose, ur ql Negative Ketones, ur Negative Bilirubin, ur Negative Blood, ur Negative Urobilinogen, ur 1.0 Nitrite, ur Positive (*) Leukocyte esterase, ur 2+ (*) Narrative: Urine pH is affected by diet, medications, systemic acid-base disturbances, and renal tubular function. pH may affect urinary stone formation. For example, urine pH below 6.0 may help reduce the tendency for calcium phosphate stones and pH greater than 6.0 may reduce the tendency for uric acid stone formation. Source: [facility].Last revised 09-06-2017 CBC WITH AUTO DIFFERENTIAL - Abnormal WBC 10.2 (*) Hgb 15.2 Hct 46.3 (*) Plt 287 MPV 9.6 RBC 4.87 MCV 95.1 MCH 31.2 MCHC 32.8 RDW CV 12.0 RDW SD 42.5 NRBC Abs 0.00 Narrative: DIFFERENTIAL AUTO - Abnormal Neutrophil absolute 6.9 (*) Immature granulocyte absolute 0.0 Lymphocytes absolute 2.3 Monocyte absolute 0.7 Eosinophils absolute 0.2 Basophils, abs 0.1 Neutrophils 67.2 Immature granulocytes 0.4 Lymphocytes 22.9 Monocytes 6.7 Eosinophils 2.0 Basophils 0.8 Narrative: URINALYSIS, MICROSCOPIC ONLY - Abnormal WBC, ur >50 (*) RBC, ur 0-5 Epithelial cells, squamous, ur 1-5 Bacteria, ur 4+ (*) Hyaline casts, ur 6-10 Narrative: URINE CULTURE COMPREHENSIVE METABOLIC PANEL Sodium 139 Potassium, pl 4.5 Chloride 103 CO2 23 Anion Gap 13 BUN 17 Creatinine 0.71 Glucose 107 Calcium 9.8 Bilirubin, total 0.2 Protein, pl 7.6 Albumin 4.1 Alk phos 88 ALT 23 AST 22 Narrative: PROTIME-INR PT 12.2 INR 1.08 Narrative: TROPONIN T Troponin T <0.01 Narrative: EGFR GFR 91 Narrative: POCT GLUCOSE DEVICE Glucose, POC, bld 95 Narrative: CT Head WO Contrast Final Result 1. NO ACUTE INTRACRANIAL FINDING. 2. VOLUME LOSS/ATROPHY AND WHITE MATTER MICROANGIOPATHY CHANGES. 3. CEREBRAL VASCULAR ATHEROSCLEROSIS. Electronically signed by: Zaire Maria M.D XR Chest 1 Vw Portable (Results Pending) MDM Number of Diagnoses or Management Options Amount and/or Complexity of Data Reviewed Clinical lab tests: ordered and reviewed Tests in the radiology section of [facility]??: ordered and reviewed ED Course as of Dec 29 1554 Time: 12/29 1356 Value: BP: 142/76 Comment: Pre-hypertension/Hypertension: The patient has been informed that they may have pre-hypertension or Hypertension based on a blood pressure reading in the Emergency Department. I recommend that the patient call the primary care provider listed on their discharge instructions or a physician of their choice this week to arrange follow up for further evaluation of possible pre- hypertension or Hypertension. By: Kaia Dimas Time: 12/29 5902 Comment: Patient has been advised on smoking cessation. Spent between 3-10 minutes discussing the benefits of cessation, as well as the risks of persistent tobacco use. Patient has been encouraged todiscuss pharmacological options with her family doctor if she fails to quit. By: Kaia Dimas Time: 12/29 1525 Comment: Rechecked patient who is resting comfortably and feeling back to normal. Informed her of Xray findings and of pending CT result. By: Kaia Dimas TIA (transient ischemic attack) Acute cystitis without hematuria This note was prepared by Kaia Dimas, acting as a Scribe for Tobias Hancock MD. I electronically signed this note at 1:56 PM on 12/29/2018. I, Tobias Hancock MD., have personally performed the services described in the documentation, reviewed the documentation, as recorded by the scribe in my presence, and it accurately and completely records my words and actions. Tobias Hancock MD 12/29/18 1555 * La Ortega RN - 12/29/2018 1:37 PM CDT At 1245 today sudden onset of numbness and inability to move her right arm and leg, [facility], able to move her arm and leg without difficulty * Kate Freedman - 12/29/2018 1:33 PM CDT Bed: ED03 Expected date: Expected time: Means of arrival: Comments: EMS Kate Freedman 12/29/18 1333 documented in this encounter Miscellaneous Notes * Plan of Care - Jolene Novak, RN - 12/31/2018 1:24 AM CDT Goals: Clinical Goals for the Shift: Patient will have no neurological symptoms, stable vital signs and remain free from injury Summary: Patient transferred to [facility] Emergency Department via EMS with cardiac monitoring. Patient's vitals stable, no neurological symptoms. Report called to [facility] at [facility] * Plan of Care - Chartrand, Reanna Shabnam, RN - 12/30/2018 4:01 PM CDT Goals: Clinical Goals for the Shift: Stable vital signs, free from neurological symptoms, free from pain or injury. Problem: Health Behavior: Goal: Understanding of discharge needs will improve Outcome: Progressing Problem: Lack of Knowledge: Goal: Knowledge of disease or condition will improve Outcome: Progressing Goal: Understanding of discharge needs will improve Outcome: Progressing Goal: Knowledge of the prescribed therapeutic regimen will improve Outcome: Progressing Goal: Knowledge of disease or condition will improve Outcome: Progressing Problem: Coping: Goal: Level of anxiety will decrease Outcome: Progressing Problem: Safety: Goal: Will remain free from injury Outcome: Progressing Problem: Urinary Elimination: Goal: Signs and symptoms of infection will decrease Outcome: Progressing Goal: Ability to reestablish a normal urinary elimination pattern will improve Outcome: Progressing Goal: Complications related to the disease process, condition or treatment will be avoided or minimized Outcome: Progressing Summary: VSS. IV fluids infusing. Antibiotics as ordered. Up ad irish in room with steady gait. Denies pain. Denies urinary symptoms. Testing completed. Urine cultures pending. Call light in reach at all times; uses effectively as needed. * Plan of Care - Jolene Novak RN - 12/30/2018 5:54 AM CDT Problem: Health Behavior: Goal: Understanding of discharge needs will improve Outcome: Progressing Problem: Lack of Knowledge: Goal: Knowledge of disease or condition will improve Outcome: Progressing Goal: Understanding of discharge needs will improve Outcome: Progressing Problem: Coping: Goal: Level of anxiety will decrease Outcome: Progressing Problem: Safety: Goal: Will remain free from injury Outcome: Progressing Goals: Clinical Goals for the Shift: Patient will have no TIA symptoms, remain hemodynamically stable and free from injury Summary: Patient's vital signs stable, no complaints of weakness or other symptoms. All testing fortoday explained to patient * ED Procedure Note - Tobias Hancock MD - 12/29/2018 1:56 PM CDTAssociated Order(s): ECG 12 lead Procedure ECG 12 lead Date/Time: 12/29/2018 1:56 PM Performed by: Tobias Hancock MD Authorized by: Tobias Hancock MD Rate: ECG rate: 75 Rhythm: Rhythm: sinus rhythm Ectopy: Ectopy: none QRS: QRS axis: Normal QRS intervals: Normal Conduction: Conduction: abnormal Abnormal conduction: incomplete RBBB ST segments: ST segments: Normal T waves: T waves: normal Interpretation: Interpretation: normal Tobias Hancock MD 12/29/18 1356 documented in this encounter Plan of Treatment Not on file documented as of this encounter Procedures Procedure Name Priority Date/Time Associated Diagnosis Comments POCT GLUCOSE DEVICE Routine 12/30/2018 1 0:01 PM CDT POCT GLUCOSE DEVICE Routine 12/30/2018 5 :31 PM CDT CTA NECK W WO CONTRAST IP Routine 12/30/2018 3:11 PM CDT POCT GLUCOSE DEVICE Routine 12/30/2018 1 1:48 AM CDT MRI BRAIN WO CONTRAST ED 12/30/2018 10:18 AM CDT US CAROTIDS DUPLEX BILATERAL IP Routine 12/30/2018 9:32 AM CDT TRANSTHORACIC ECHO (TTE) COMPLETE W DOPPLER/CF WO CONTRAST W BUBBLE Routine 12/30/2018 8:28 AM CDT POCT GLUCOSE DEVICE Routine 12/30/2018 8 :11 AM CDT EGFR Routine 12/30/2018 4:33 AM CDT LIPID PANEL Routine 12/30/2018 4:33 AM CDT BASIC METABOLIC PANEL Routine 12/30/2018 4:33 AM CDT POCT GLUCOSE DEVICE Routine 12/30/2018 1 :54 AM CDT POCT GLUCOSE DEVICE Routine 12/29/2018 7 :[address] HEAD WO CONTRAST ED 12/29/2018 2 :43 PM CDT URINALYSIS AND REFLEX TO MICROSCOPIC AND CULTURE STAT 12/29/2018 2:38 PM CDT URINALYSIS, MICROSCOPIC ONLY STAT 12/29/2018 2:38 PM CDT URINE CULTURE STAT 12/29/2018 2:38 PM CDT EGFR STAT 12/29/2018 2:22 PM CDT DIFFERENTIAL AUTO STAT 12/29/2018 2:2 2 PM CDT CBC WITH AUTO DIFFERENTIAL STAT 12/29/2018 2:22 PM CDT PROTIME-INR STAT 12/29/2018 2:22 PM CDT TROPONIN T STAT 12/29/2018 2:22 PM CDT COMPREHENSIVE METABOLIC PANEL STAT 12/29/2018 2:22 PM CDT XR CHEST 1 VIEW ED 12/29/2018 2:00 PM CDT ECG 12-LEAD STAT 12/29/2018 1:45 PM CDT POCT GLUCOSE DEVICE Routine 12/29/2018 1 :36 PM CDT documented in this encounter Results * (ABNORMAL) POCT glucose (12/30/2018 10:01 PM CDT) Pathologist [facility] Glucose, POC 118(H) 71 - 98 mg/dL ESTHELA BRADLEY (MANJEET) Blood specimen (specimen) 12/30/2018 10:01 PM CDT 12/30/2018 10:01 PM CDT Narrative ESTHELA BRADLEY (MANJEET) - 12/30/2018 10:02 PM CDT Aurora Luis MD LAB POCT ORDERABLES - DE VICE Final Result Performing Organization Address City/[facility] Co de Phone Number ESTHELA BRADLEY (ARCADIA) [address] [facility] [place] [place] [address] * (ABNORMAL) POCT glucose (12/30/2018 5:31 PM CDT) Glucose, POC 119(H) 71 - 98 mg/dL ESTHELA MIRNA (ARCADIA) Blood specimen (specimen) 12/30/2018 5:31 PM CDT 12/30/2018 5:31 PM CDT Narrative ESTHELA BRADLEY (ARCADIA) - 12/30/2018 5:32 PM CDT Aurora Luis MD LAB POCT ORDERABLES - DE VICE Final Result Performing Organization Address City/[facility] Co de Phone Number ESTHELA BRADLEY (ARCADIA) [address] [facility] [place] [place] [address] * CTA Neck W WO Contrast (12/30/2018 3:11 PM CDT) Anatomical Region Laterality Modality Head and Neck N/A Computed Tomogra phy 12/30/2018 3:22 PM CDT Impressions 12/30/2018 3:33 PM CDT 1. ??60% right carotid bulb diameter stenosis by NASCET criteria. 2. ??75% left carotid bulb proximal internal carotid artery diameter stenosis by NASCET criteria. 3. ??Bilaterally patent vertebral arteries, a little larger left than right. Electronically signed by: Mp No Jr., M.D. Narrative 12/30/2018 3:33 PM CDT CTA NECK W WO CONTRAST HISTORY: TIA. Bilateral carotid artery disease on carotid ultrasound today. TECHNIQUE: 100 mL Optiray 350 IV. ??Spiral axial scans from aortic arch to base of skull. ??Reformatted images rotated 360 degrees around longitudinal axes of right and left common-internal carotid arteries; VRT and MIP reconstructed images generated at an independent workstation; rotated 3 and 60 degrees around vertical axes. COMPARISON: Ultrasound carotids today FINDINGS: Extensive arteriosclerotic plaque is present at the carotid bifurcations bilaterally. ??2 mm diameter at the right carotid bulb represents 60% diameter stenosis by NASCET criteria. ??1.2 mm diameter in the left carotid bulb-proximal internal carotid artery represents 75% diameter stenosis by NASCET criteria. ??Left vertebral artery is a little larger than the right, but both appear widely patent. ??No aneurysm is seen. Some emphysema and fibrosis are seen in the lung apices bilaterally. Procedure Note Mp No Jr., MD - 12/30/2018 CTA NECK W WO CONTRAST HISTORY: TIA. [...] 1.2 mm diameter in the left carotid bulb-proximal internal carotid artery represents 75% diameter stenosis by NASCET criteria. Left vertebral artery is a little larger than the right, but both appear widely patent. No aneurysm is seen. Some emphysema and fibrosis are seen in the lung apices bilaterally. IMPRESSION: 1. 60% right carotid bulb diameter stenosis by NASCET criteria. 2. 75% left carotid bulb proximal internal carotid artery diameter stenosis by NASCET criteria. 3. Bilaterally patent vertebral arteries, a little larger left than right. Electronically signed by: Mp No Jr., M.D. Trisha Jesus MD IMG CT PROCEDURES Final Result * (ABNORMAL) POCT glucose (12/30/2018 11:48 AM CDT) Glucose, POC 173(H) 71 - 98 mg/dL ESTHELA BRADLEY (MANJEET) Blood specimen (specimen) 12/30/2018 11:48 AM CDT 12/30/2018 11:48 AM CDT Narrative ESTHELA MEHTA) - 12/30/2018 11:49 AM CDT us Aurora Luis MD LAB POCT ORDERABLES - DE VICE Final Result ESTHELA MEHTA) 1 [facility] [place] [address] * MRI Brain WO Contrast (12/30/2018 10:18 AM CDT) Anatomical Region Laterality Modality Head and Neck N/A Magnetic Resonan ce 12/30/2018 11:3 8 AM CDT Impressions 12/30/2018 11:40 AM CDT 1. ??MILD AGE-RELATED CORTICAL VOLUME LOSS AND WHITE MATTER CHANGE. 2. ??SMALL OLD RIGHT OCCIPITAL INFARCTION. 3. ??NO EVIDENCE OF ACUTE INTRACRANIAL EVENT. Electronically signed by: Devon Alvarado M.D. Narrative 12/30/2018 11:40 AM CDT MRI BRAIN WO CONTRAST HISTORY: tia. ??Right upper extremity numbness. TECHNIQUE: Noncontrast imaging was performed using axial and sagittal FLAIR, axial T1, T2 and diffusion-weighted sequences. COMPARISON: CT 12/29/2018 FINDINGS: Mild cortical volume loss and nonspecific white matter changes are present. ??A small old right occipital infarction is present. There is no evidence of acute intracranial hemorrhage, mass or infarction. Diffusion-weighted signal is normal throughout the cortical structures. ??The ventricles are symmetric. ??Midline is normal. The extra-axial structures are unremarkable. Procedure Note Devon Alvarado MD - 12/30/2018 MRI BRAIN WO CONTRAST HISTORY: tia. Right [...] is normal. The extra-axial structures are unremarkable. IMPRESSION: 1. MILD AGE-RELATED CORTICAL VOLUME LOSS AND WHITE MATTER CHANGE. 2. SMALL OLD RIGHT OCCIPITAL INFARCTION. 3. NO EVIDENCE OF ACUTE INTRACRANIAL EVENT. Electronically signed by: Devon Alvarado M.D. Tobias Hancock MD IMG MRI PROCEDURES Final Resul t * US Carotids Duplex Bilateral (12/30/2018 9:32 AM CDT) Anatomical Region Laterality Modality Vascular Bilateral Ultrasound 12/30/2018 9:42 AM CDT Impressions 12/30/2018 9:52 AM CDT 1. ??SUBOPTIMAL EXAMINATION DUE TO ANATOMIC FACTORS. 2. ??SEVERE STENOSIS RIGHT INTERNAL CAROTID ARTERY. ??MEASURED DIAMETER STENOSIS IS 65%. ??ELEVATED VELOCITY SUPPORTS A SEVERE STENOSIS IN THE 70-79% RANGE. 3. ??MEASURED DIAMETER STENOSIS RIGHT CAROTID BULB OF 74%. 4. ??MODERATE STENOSES RIGHT COMMON CAROTID ARTERY AND RIGHT EXTRAFORAMINAL CAROTID ARTERY AND LEFT CAROTID BULB, MILD STENOSIS LEFT COMMON CAROTID ARTERY. 5. ??ANTEGRADE VERTEBRAL FLOW BILATERALLY. Electronically signed by: Wander Pickerign 12/30/2018 9:52 AM CDT US CAROTIDS DUPLEX BILATERAL HISTORY: tia. TECHNIQUE: Color-flow Doppler examination and grayscale examination. COMPARISON: None available. FINDINGS: Suboptimal examination due to White excursion of vessels with respiration, and shadowing of plaque. ??Plaque within the right common carotid artery, with measured stenosis proximal right common carotid artery of 41%. ??Measured stenosis right carotid bulb is 74%. Measured stenosis proximal right internal prior is 65%. ??Both the systolic and diastolic velocities are highly elevated, supporting a severe stenosis in this setting is 79% range, according to NASCET criteria. ??Moderate stenosis right external carotid artery, measuring stenosis of 48%. ??Mild plaque left common carotid artery, measured diameter stenosis mid left common carotid artery of 39%. ??Measured stenosis left carotid bulb is 59%. ??Flow velocities left internal carotid artery are not elevated. ??Antegrade vertebral flow bilaterally. Procedure Note Zaire Maria MD - 12/30/2018 US CAROTIDS DUPLEX BILATERAL HISTORY: tia. TECHNIQUE: Color-flow Doppler examination and grayscale examination. COMPARISON: None available. FINDINGS: Suboptimal examination due to White excursion of vessels with respiration, and shadowing of plaque. Plaque within the right common carotid artery, with measured stenosis proximal right common carotid artery of 41%. Measured stenosis right carotid bulb is 74%. Measured stenosis proximal right internal prior is 65%. Both the systolic and diastolic velocities are highly elevated, supporting a severe stenosis in this setting is 79% range, according to NASCET criteria. Moderate stenosis right external carotid artery, measuring stenosis of 48%. Mild plaque left common carotid artery, measured diameter stenosis mid left common carotid artery of 39%. Measured stenosis left carotid bulb is 59%. Flow velocities left internal carotid artery are not elevated. Antegrade vertebral flow bilaterally. IMPRESSION: 1. SUBOPTIMAL EXAMINATION DUE TO ANATOMIC [...] BILATERALLY. 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 Indications: Transient Ischemic Attack. Measurements: 2D/M Mode ?Doppler ? Measurement ?Value ?Normal Range ? Measurement ?Value ?Normal Range ? EF Teich MM ?41.4 ? [ 55.0 - 70.0 ] percent ?KATH Vmax ? 1.89 ? [ 2.00 - 4.00 ] cm2 ? LVIDd MM ? 3.72 ? [ 3.90 - 5.30 ] cm ? AV Mean PG ? 3 ?[ 2 - 4 ] mmHg ? LVIDs MM ? 2.99 ? [ 2.30 - 3.90 ] cm ? AV Peak Samir ?1.47 ? [ 1.00 - 1.70 ] m/s ? LVPWd MM ? 1.40 ? [ 0.60 - 1.00 ] cm ? AV VTI ? 29.51 ?cm ? IVSd MM ?1.25 ? [ 0.60 - 0.90 ] cm ? LVOT Diam ?1.82 ? [ 1.70 - 2.10 ] cm ? LA Dimension MM ?5.09 ? [ 2.70 - 3.80 ] cm ? LVOT Peak Samir ?1.14 ? [ 0.70 - 1.10 ] m/s ? AoR Diam MM ?2.77 ? [ 2.60 - 3.70 ] cm ? LVOT VTI ? 28.91 ?[ 20.00 - 30.00 ] cm ? ACS MM ? 1.36 ? cm ? MV E Peak Samir ?0.84 ? [ 0.60 - 1.30 ] m/s ? MV A Peak Samir ?0.78 ? [ 1.00 - 1.20 ] m/s ? MV Mean PG ? 2 ?[ <= 5 ] mmHg ? MV PHT ? 94 ? [ 20 - 100 ] msec ? MVA ?2.30 ? MV Decel Time ?324 ?[ 104 - 258 ] msec ? PV Peak Samir ?1.04 ? [ 0.40 - 0.80 ] m/s ? TR Peak Samir ?2.53 ? [ 1.00 - 2.80 ] m/s ? TR Peak PG ? 26 ? mmHg ? RVSP ? 36.00 ?[ 10.00 - 36.00 ] mmHg ? E' ? 0.07 ? E/E' ? 11.96 ? PA Pressure ?26.00 ?[ 10.00 - 36.00 ] mmHg ? Findings: Atrial Septum: Normal atrial septum. Saline [...] By: Dr Gordy Quispe 2018-12-30 10:04:45 CDT Procedure Note Gordy Quispe, DO - 12/30/[address] [place] [address] Echocardiogram Report Patient Name: TRESSA MYERS MPatient ID: [id number] : [id number] Date: 12/30/2018 07:49:48 Gender: FAccession #: [id number] Tech: NPLocation: [id number] Ref.Provider: Anisha LUIS(Cm): 165 BSA: 2.18Weight(Kg): 103.4 Quality: Adequate Procedures: Echocardiographic Report: Transthoracic echocardiogram with 2D, M-Mode, and color Dopplerexamination with saline contrast study. Indications: Transient Ischemic Attack. Measurements: 2D/M Mode Doppler Measurement Value Normal Range MeasurementValue Normal Range EF Teich MM 41.4 [ 55.0 - 70.0 ] percent KATH Vmax1.89 [ 2.00 - 4.00 ] cm2 LVIDd MM 3.72 [ 3.90 - 5.30 ] cm AV Mean PG 3[ 2 - 4 ] mmHg LVIDs MM 2.99 [ 2.30 - 3.90 ] cm AV Peak Vel1.47 [ 1.00 - 1.70 ] m/s LVPWd MM 1.40 [ 0.60 - 1.00 ] cm AV VTI29.51 cm IVSd MM 1.25 [ 0.60 - 0.90 ] cm LVOT Diam1.82 [ 1.70 - 2.10 ] cm LA Dimension MM 5.09 [ 2.70 - 3.80 ] cm LVOT Peak Vel1.14 [ 0.70 - 1.10 ] m/s AoR Diam MM 2.77 [ 2.60 - 3.70 ] cm LVOT VTI28.91 [ 20.00 - 30.00 ] cm ACS MM 1.36 cm MV E Peak Vel0.84 [ 0.60 - 1.30 ] m/s MV A Peak Vel0.78 [ 1.00 - 1.20 ] m/s MV Mean PG 2[ <= 5 ] mmHg MV PHT 94[ 20 - 100 ] msec MVA2.30 MV Decel Gani858 [ 104 - 258 ] msec PV Peak Vel1.04 [ 0.40 - 0.80 ] m/s TR Peak Vel2.53 [ 1.00 - 2.80 ] m/s TR Peak PG 26mmHg RVSP36.00 [ 10.00 - 36.00 ] mmHg E'0.07 E/E'11.96 PA Mroxdvge99.00 [ 10.00 - 36.00 ] mmHg Findings: Atrial Septum: Normal atrial septum. Saline contrast study performed without evidence ofright to left shunt. Left Ventricle: Normal left ventricular systolic function with no focal wall motionabnormalities. Normal left ventricular size. Normal left ventricular wall thickness. Ejectionfraction is visually estimated at 60 %. Left Atrium: There is moderate enlargement of left atrium. Right Ventricle: Normal right ventricular size. Normal right ventricular systolicfunction. Right Atrium: There is moderate enlargement of right atrium. Aortic Valve: No evidence of hemodynamically significant aortic stenosis by Doppler.Aortic cusps appear mildly sclerotic. No aortic regurgitation. Mitral Valve: Mild mitral annular calcification. No mitral valve regurgitation is seen.There is no hemodynamically significant mitral stenosis by Doppler. Pulmonic Valve: Normal structure of the pulmonic valve. No evidence of pulmonicregurgitation. Tricuspid Valve: Right Ventricular Systolic Pressure could not be estimated due toinadequate visualization of TR jet. Pericardium: Normal pericardium with no significant pericardial effusion. Aorta: Normal aortic root. Sinus of Valsalva is normal. Aortic arch is normal.Descending aorta is normal. IVC: The IVC is not well visualized. Pulmonary Artery: Normal pulmonary artery size. Conclusions: Normal left ventricular systolic function with no focal wall motionabnormalities. Normal left ventricular size. Normal left ventricular wall thickness. Ejectionfraction is visually estimated at 60 %. Normal atrial septum. Saline contrast study performed without evidence ofright to left shunt. Right Ventricular Systolic Pressure could not be estimated due toinadequate visualization of TR jet. No clear evidence for cardiac source of emboli. Electronically Signed By: Dr Gordy Quispe 2018-12-30 10:04:45 CDT Tobias Hancock MD CV ECHO PROCEDURES Final Resul t * (ABNORMAL) POCT glucose (12/30/2018 8:11 AM CDT) Glucose, POC 135(H) 71 - 98 mg/dL [facility] ([place]) Blood specimen (specimen) 12/30/2018 8:11 AM CDT 12/30/2018 8:11 AM CDT Narrative [facility] ([place]) - 12/30/2018 8:14 AM CDT Aurora Luis MD LAB POCT ORDERABLES - DE VICE Final Result ESTHE[facility] ([place]) 1 [facility] [place] [address] * (ABNORMAL) Lipid panel (12/30/2018 4:33 AM CDT) Cholesterol 151 30 - 199 mg/dL [facility] ([place]) Comment: Interpretive Data Ages < or = 19 years ??Acceptable: ? <170 mg/dL ??Borderline high: ??170-199 mg/dL ??High: ? >or= 200 mg/dL Ages > or = 20 years ??Desirable: ?<200 mg/dL ??Borderline high: ??200-239 mg/dL ??High: ? >or= 240 mg/dL Literature References: 1. Expert Panel on Integrated Guidelines for Cardiovascular Health and Risk Reduction in Children and Adolescents. Pediatrics 2011;128:S213 2. NCEP Expert Panel. Circulation 2004;110:227 Current Interpretive Data was last revised on 2018. Triglycerides 135 <=149 mg/dL [facility] ([place]) Comment: Interpretive Data Ages < or = 9 years ??Acceptable: ? <75 mg/dL ??Borderline high: ??75-99 mg/dL ??High: ? >or= 100 mg/dL Ages 10 to 20 years ??Acceptable: ? <90 mg/dL ??Borderline high: ??90-129 mg/dL ??High: ? >or= 130 mg/dL Ages > or = 20 years ??Desirable: ?<150 mg/dL ??Borderline high: ??150-199 mg/dL ??High: ? 200-499 mg/dL ?Very high: ?? >or= 499 mg/dL Literature References: 1. Expert Panel on Integrated Guidelines for Cardiovascular Health and Risk Reduction in Children and Adolescents. Pediatrics 2011;128:S213 2. NCEP Expert Panel. Circulation 2004;110:227 Current Interpretive Data was last revised on 2018. HDL 39(L) >=40 mg/dL ESTHELA MEHTA) Comment: Interpretive Data Ages < or = 19 years ??Acceptable: ? >45 mg/dL ??Borderline low: ?? 40-45 mg/dL ??Low: ? <40 mg/dL Ages > or = 20 years ??Desirable: ?>or= 60 mg/dL ??Low: ? <40 mg/dL Literature References: 1. Expert Panel on Integrated Guidelines for Cardiovascular Health and Risk Reduction in Children and Adolescents. Pediatrics 2011;128:S213 2. NCEP Expert Panel. Circulation 2004;110:227 Current Interpretive Data was last revised on 2018. LDL, calculated 85 <=129 mg/dL ESTHE[facility] ([place]) Comment: Interpretive Data Ages < or = 19 years ??Acceptable: ? <110 mg/dL ??Borderline high: ??110-129 mg/dL ??High: ?>or= 130 mg/dL Ages > or = 20 years ??Optimal: ? <100 mg/dL ??Near optimal: ?100-129 mg/dL ??Borderline high: ?? 130-159 mg/dL ??High: ?>160 mg/dL Literature References: 1. Expert Panel on Integrated Guidelines for Cardiovascular Health and Risk Reduction in Children and Adolescents. Pediatrics 2011;128:S213 2. NCEP Expert Panel. Circulation 2004;110:227 Current Interpretive Data was last revised on 2018. Non-HDL Cholesterol 112 mg/dL ESTHELA [facility] ([place]) Comment: Interpretive Data Ages < or = 19 years ??Acceptable: ?<120 mg/dL ??Borderline high: ??120-144 mg/dL ??High: ?>145 mg/dL Ages > or = 20 years ??When triglycerides are >200 mg/dL, Non-HDL cholesterol is a secondary target of ? therapy with treatment goals that are 30 mg/dL greater than the LDL cholesterol target. ? Literature References: 1. Expert Panel on Integrated Guidelines for Cardiovascular Health and Risk Reduction in Children and Adolescents. Pediatrics 2011;128:S213 2. NCEP Expert Panel. Circulation 2004;110:227 Current Interpretive Data was last revised on 2018. Chol/HDL ratio 4 MOHAN BRADLEY ([place]) Blood specimen (specimen) 12/30/2018 4:33 AM CDT 12/30/2018 2:12 PM CDT Narrative ESTHELA BRAD[facility] ([place]) - 12/30/2018 2:33 PM CDT us Trisha Jesus MD LAB BLOOD ORDERABLES Final Resul t Performing Organization Address [facility] Co de Phone Number ESTHELA [place]) 1 [facility] [place] [address] * eGFR (12/30/2018 4:33 AM CDT) eGFR 101 mL/min/1.7 3 m2 [facility]HE[facility] ([place]) Comment: Interpretive Data Reference Interval Normal ?>/= 90 mL/min/1.73m2 Mildly decreased* ? 60 - 89 mL/min/1.73m2 Mildly to moderately decreased ?45 - 59 mL/min/1.73m2 Moderately to severely decreased ??30 - 44 mL/min/1.73m2 Severely decreased ?15 - 29 mL/min/1.73m2 Kidney Failure ?< 15 ??mL/min/1.73m2 *Relative to young adult level If -Mauritanian multiply value by 1.16. Estimated glomerular filtration [...] was last reviewed 2016. Blood specimen (specimen) 12/30/2018 4:33 AM CDT 12/30/2018 5:49 AM CDT Narrative ESTHELA MEHTA) - 12/30/2018 6:13 AM CDT us Tobias Hancock MD LAB BLOOD ORDERABLES Final Res ult Performing Organization Address [facility]/State/ZIP Co de Phone Number ESTHELA BRADLEY ([place]) 1 [facility] [place] [address] * (ABNORMAL) Basic metabolic panel (12/30/2018 4:33 AM CDT) Sodium 135 135 - 145 mmol/L [facility] ([place]) Potassium, pl 4.0 3.3 - 4.9 mmol/L [facility] ([place]) Chloride 100 97 - 110 mmol/L [facility] ([place]) CO2 23 22 - 32 mmol/L [facility] ([place]) Anion gap 11 2 - 15 mmol/L [facility] ([place]) BUN 13 8 - 25 mg/dL [facility] ([place]) Creatinine 0.53(L) 0.60 - 1.10 mg/dL [facility] ([place]) Glucose 131 70 - 199 mg/dL [facility] ([place]) Comment: Interpretive Data Fasting glucose >/= 126 [...] interpretive data was last revised 2017. Calcium 9.1 8.5 - 10.3 mg/dL [facility] ([place]) Blood specimen (specimen) 12/30/2018 4:33 AM CDT 12/30/2018 5:49 AM CDT Narrative ESTHELA BRADLEY ([place]) - 12/30/2018 6:13 AM CDT us Tobias Hancock MD LAB BLOOD ORDERABLES Final Res ult ESTHELA BRADLEY ([place]) 1 [facility] Department [place] [address] * (ABNORMAL) POCT glucose (12/30/2018 1:54 AM CDT) Glucose, POC 143(H) 71 - 98 mg/dL ESTHELA [facility]AD[facility] ([place]) Blood specimen (specimen) 12/30/2018 1:54 AM CDT 12/30/2018 1:54 AM CDT Narrative ESTHELA BRADLEY ([place]) - 12/30/2018 1:56 AM CDT Aurora Luis MD LAB POCT ORDERABLES - DE VICE Final Result Performing Organization Address [facility] Co de Phone Number ESTHELA BRADLEY ([place]) 1 [facility] [place] [address] * (ABNORMAL) POCT glucose (12/29/2018 7:59 PM CDT) Glucose, POC 121(H) 71 - 98 mg/dL [facility] ([place]) Blood specimen (specimen) 12/29/2018 7:59 PM CDT 12/29/2018 7:59 PM CDT Narrative ESTHELA BRADLEY ([place]) - 12/29/2018 9:13 PM CDT Aurora Luis MD LAB POCT ORDERABLES - DE VICE Final Result Performing Organization Address [facility] Co ar Phone Number ESTHELA BRADLEY ([place]) [address] [place] [address] [place] [place] [address] * CT Head WO Contrast (12/29/2018 2:43 PM CDT) Anatomical Region Laterality Modality Head and Neck N/A Computed Tomogra phy 12/29/2018 3:26 PM CDT Impressions 12/29/2018 3:28 PM CDT 1. ??NO ACUTE INTRACRANIAL FINDING. 2. VOLUME LOSS/ATROPHY AND WHITE MATTER MICROANGIOPATHY CHANGES. 3. ??CEREBRAL VASCULAR ATHEROSCLEROSIS. Electronically signed by: Wander Pickering 12/29/2018 3:28 PM CDT PROCEDURE: CT HEAD WO CONTRAST HISTORY: tia. ??Left arm numbness. ??Now resolving. COMPARISON: None. TECHNIQUE: Helical CT scan of the head obtained noncontrast. FINDINGS: No acute intracranial hemorrhage identified. ??No midline shift is noted. ??Brainstem cisterns are intact. ??Early volume loss/atrophy. Evidence of some very mild white matter microangiopathy changes. Cerebrovascular atherosclerosis. 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 Procedure Note Zaire Maria MD - 12/29/2018 PROCEDURE: CT HEAD WO CONTRAST HISTORY: tia. Left arm numbness. Now resolving. COMPARISON: None. TECHNIQUE: Helical CT scan of the head obtained noncontrast. FINDINGS: No acute intracranial hemorrhage identified. No midline shift is noted. Brainstem cisterns are intact. Early volume loss/atrophy. Evidence of some very mild white matter microangiopathy changes. Cerebrovascular atherosclerosis. 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 IMPRESSION: 1. NO ACUTE INTRACRANIAL FINDING. 2. VOLUME LOSS/ATROPHY AND WHITE MATTER MICROANGIOPATHY CHANGES. 3. CEREBRAL VASCULAR ATHEROSCLEROSIS. Electronically signed by: Zaire Maria M.D Tobias Hancock MD IMG CT PROCEDURES Final Result * (ABNORMAL) Urine culture Urine (12/29/2018 2:38 PM CDT) Report Final Report: Greater than or equal to 100,000 colonies/mL of Escherichia coli Plus growth of clinically insignificant bacterial sindhu. (.) ESTHELA BRADLEY ([place]) Comment:Testing performed by : [facility], [address] [facility], [facility] [place] [address] Organism ESCHERICHIA COLI REJI BRADLEY ([place]) Organism PLUS GROWTH OF CLINICALLY INSIGNIFICANT SINDHU. ESTHELA BRADLEY ([place]) Urine 12/29/2018 2:38 PM CDT 12/29/2018 4:45 PM CDT Narrative ESTHELA BRADLEY ([place]) - 12/31/2018 11:28 AM CDT Urine culture reflexed based upon urinalysis results. Testing performed by [facility] ([phone]) Organism Antibiotic Method Susceptibility Escherichia coli Ampicillin INTERPRETATION Susceptible Escherichia coli Cefazolin INTERPRETATION Susceptible Escherichia coli Nitrofurantoin INTERPRETATION Susceptible Escherichia coli Gentamicin INTERPRETATION Susceptible Escherichia coli Trimethoprim with Sulfamethoxazole IN TERPRETATION Susceptible Escherichia coli Meropenem INTERPRETATION Susceptible Escherichia coli Cefepime INTERPRETATION Susceptible Escherichia coli Ciprofloxacin INTERPRETATION Susceptible Escherichia coli Ceftazidime INTERPRETATION Susceptible Escherichia coli Ceftriaxone INTERPRETATION Susceptible Escherichia coli Piperacillin/Tazobactam INTERPRETATIO N Susceptible Escherichia coli Cephalexin INTERPRETATION Susceptible Escherichia coli Cefuroxime-axetil INTERPRETATION Susceptible Escherichia coli Cefdinir INTERPRETATION Susceptible Tobias Hancock MD LAB MICROBIOLOGY - GENERAL ORD ERABLES Final Result Performing Organization Address [facility] Co de Phone Number [facility] ([place]) 1 [facility] [employer] [place] [address] * (ABNORMAL) Urinalysis, microscopic only (12/29/2018 2:38 PM CDT) WBC, ur >50(A) 0 - 5 /HPF [facility] ([place]) RBC, ur 0-5 0 - 2 /HPF [facility] ([place]) Epithelial cells, squamous, ur 1-5 0 - 5 /HPF [facility] ([place]) Bacteria, ur 4+(A) [facility] ([place]) Hyaline casts, ur 6-10 0 - 10 /LPF [facility] ([place]) Urine 12/29/2018 2:38 PM CDT 12/29/2018 2:39 PM CDT Narrative [facility] ([place]) - 12/29/2018 3:44 PM CDT Tobias Hancock MD LAB URINE ORDERABLES Final Res ult Performing Organization Address [facility] Co de Phone Number [facility] ([place]) [address] [place] [address] [employer] [place] [address] * (ABNORMAL) Urinalysis reflex to microscopic and culture Urine (12/29/2018 2:38 PM CDT) Color, ur Yellow Yellow [facility] ([place]) Clarity, ur Cloudy(A) Clear [facility] ([place]) Specific gravity, ur 1.022 1.010 - 1.025 [facility] ([place]) pH, urine 5.5 [facility] ([place]) Protein, ur ql 1+(A) Negative [facility] ([place]) Glucose, ur ql Negative Negative [facility] ([place]) Ketones, ur Negative Negative [facility] ([place]) Bilirubin, ur Negative Negative [facility] ([place]) Blood, ur Negative Negative [facility] ([place]) Urobilinogen, ur 1.0 mg/dL [facility] ([place]) Nitrite, ur Positive(A) Negative [facility] ([place]) Leukocyte esterase, ur 2+(A) Negative [facility] ([place]) Urine 12/29/2018 2:38 PM CDT 12/29/2018 2:39 PM CDT Narrative [facility] ([place]) - 12/29/2018 3:44 PM CDT ?? Urine pH is affected by diet, medications, systemic acid-base disturbances, and renal tubular function. ??pH may affect urinary stone formation. ??For example, urine pH below 6.0 may help reduce the tendency for calcium phosphate stones and pH greater than 6.0 may reduce the tendency for uric acid stone formation. Source: [employer]. Last revised 09-06-2017 us Tobias Hancock MD LAB MICROBIOLOGY - GENERAL ORD ERABLES Final Result [facility] ([place]) 1 [facility] [place] [address] * eGFR (12/29/2018 2:22 PM CDT) eGFR 91 mL/min/1.7 3 m2 [facility] ([place]) Comment: Interpretive Data Reference Interval Normal ?>/= 90 mL/min/1.73m2 Mildly decreased* ? 60 - 89 mL/min/1.73m2 Mildly to moderately decreased ?45 - 59 mL/min/1.73m2 Moderately to severely decreased ??30 - 44 mL/min/1.73m2 Severely decreased ?15 - 29 mL/min/1.73m2 Kidney Failure ?< 15 ??mL/min/1.73m2 *Relative to young adult level If -Mauritanian multiply value by 1.16. Estimated glomerular filtration [...] was last reviewed 2016. Blood specimen (specimen) 12/29/2018 2:22 PM CDT 12/29/2018 2:24 PM CDT Narrative [facility] ([place]) - 12/29/2018 3:08 PM CDT us Tobias Hancock MD LAB BLOOD ORDERABLES Final Res ult [facility] ([place]) 1 [facility] [place] [address] * (ABNORMAL) Differential, auto (12/29/2018 2:22 PM CDT) Neutrophil abs 6.9(H) 1.7 - 6.5 K/cumm [facility] ([place]) Imm gran abs 0.0 0.0 - 0.1 K/cumm [facility] ([place]) Lymphocyte abs 2.3 0.8 - 3.3 K/cumm [facility] ([place]) Monocyte abs 0.7 0.2 - 0.8 K/cumm [facility] ([place]) Eosinophil abs 0.2 0.0 - 0.5 K/cumm [facility] ([place]) Basophil abs 0.1 0.0 - 0.1 K/cumm [facility] ([place]) Neutrophil pct 67.2 % [facility] ([place]) Comment: Interpretive Data Percent cell count reference ranges are not reported, since discordance with absolute values may lead to misinterpretation of CBC data. Current Interpretive Data was last revised on 2017. Imm gran pct 0.4 % [facility] ([place]) Comment: Interpretive Data Percent cell count reference ranges are not reported, since discordance with absolute values may lead to misinterpretation of CBC data. Current Interpretive Data was last revised on 2017. Lymphocyte pct 22.9 % [facility] ([place]) Comment: Interpretive Data Percent cell count reference ranges are not reported, since discordance with absolute values may lead to misinterpretation of CBC data. Current Interpretive Data was last revised on 2017. Monocyte pct 6.7 % ESTHELA [facility]AD[facility] ([place]) Comment: Interpretive Data Percent cell count reference ranges are not reported, since discordance with absolute values may lead to misinterpretation of CBC data. Current Interpretive Data was last revised on 2017. Eosinophil pct 2.0 % MOHAN [facility] ([place]) Comment: Interpretive Data Percent cell count reference ranges are not reported, since discordance with absolute values may lead to misinterpretation of CBC data. Current Interpretive Data was last revised on 2017. Basophil pct 0.8 % ESTHELA BRADLEY ([place]) Comment: Interpretive Data Percent cell count reference ranges are not reported, since discordance with absolute values may lead to misinterpretation of CBC data. Current Interpretive Data was last revised on 2017. Blood specimen (specimen) 12/29/2018 2:22 PM CDT 12/29/2018 2:24 PM CDT Narrative ESTHELA BRAD[facility] ([place]) - 12/29/2018 2:27 PM CDT us Tobias Hancock MD LAB BLOOD ORDERABLES Final Res ult ESTHELA MEHTA) 1 [facility] [place] [address] * Troponin T (12/29/2018 2:22 PM CDT) Troponin T <0.01 0.00 - 0.01 ng/mL ESTHELA BRADLEY ([place]) Comment: Interpretive Data Reference ranges for children <18 years of age have not been established. - > or = 18 years: Serial determinations are recommended for the diagnosis of myocardial infarction. ??Temporal rise and fall are consistent with myocardial infarction when at least one value is above the 99th percentile upper reference limit for troponin assay. ??Journal of the [place] [employer] 2012;60:1581-98. Current Interpretive Data Last Revised Date: 2018. Blood specimen (specimen) 12/29/2018 2:22 PM CDT 12/29/2018 2:24 PM CDT Narrative ESTHELA BRADLEY ([place]JE[place]) - 12/29/2018 3:08 PM CDT Tobias Hancock MD LAB BLOOD ORDERABLES Final Res ult Performing Organization Address [facility]/ZIP Co de Phone Number ESTHELA BRADLEY ([place]) 1 [facility] [place] [address] * Protime-INR (12/29/2018 2:22 PM CDT) PT 12.2 9.5 - 13.0 sec ESTHELA BRADLEY ([place]) INR 1.08 0.90 - 1.20 ESTHELA BRADLEY ([place]) Comment: Interpretive Data Recommended ranges for Protime INR: 2.0 - 3.0 Most indications for Warfarin therapy (e.g. Treatment of DVT, PE, bioprosthetic valve replacement, prophylaxis venous thrombosis, atrial fibrillation). 2.5 - 3.5 Mechanical mitral valve or dual mechanical mitral and Aortic valve replacement. Current Interpretive Data was last revised on 2015. Blood specimen (specimen) 12/29/2018 2:22 PM CDT 12/29/2018 2:24 PM CDT Narrative ESTHELA BRADLEY ([place]) - 12/29/2018 2:45 PM CDT Tobias Hancock MD LAB BLOOD ORDERABLES Final Res ult ESTHELA BRADLEY ([place]) 1 [facility] [place] [place] [address] * Comprehensive metabolic panel (12/29/2018 2:22 PM CDT) Sodium 139 135 - 145 mmol/L [facility] ([place]) Potassium, pl 4.5 3.3 - 4.9 mmol/L [facility] ([place]) Chloride 103 97 - 110 mmol/L [facility] ([place]) CO2 23 22 - 32 mmol/L [facility] ([place]) Anion gap 13 2 - 15 mmol/L [facility] ([place]) BUN 17 8 - 25 mg/dL [facility] ([place]) Creatinine 0.71 0.60 - 1.10 mg/dL [facility] ([place]) Glucose 107 70 - 199 mg/dL [facility] ([place]) Comment: Interpretive Data Fasting glucose >/= 126 [...] Calcium 9.8 8.5 - 10.3 mg/dL [facility] ([place]) Bilirubin, total 0.2 0.1 - 1.2 mg/dL [facility] ([place]) Protein, pl 7.6 6.5 - 8.5 g/dL [facility] ([place]) Albumin 4.1 3.5 - 5.0 g/dL [facility] ([place]) Alk phos 88 40 - 130 Units/L [facility] ([place]) ALT 23 7 - 45 Units/L [facility] ([place]) AST 22 10 - 45 Units/L [facility] ([place]) Comment: Hemolysis present. ??Results may be affected. Slightly Hemolyzed Specimen Blood specimen (specimen) 12/29/2018 2:22 PM CDT 12/29/2018 2:24 PM CDT Narrative [facility] ([place]) - 12/29/2018 3:08 PM CDT Tobias Hancock MD LAB BLOOD ORDERABLES Final Res ult [facility] ([place]) 1 [facility] [employer] [place] [address] * (ABNORMAL) CBC with auto differential (12/29/2018 2:22 PM CDT) WBC 10.2(H) 3.8 - 9.9 K/cumm [facility] ([place]) Hgb 15.2 11.9 - 15.5 g/dL [facility] ([place]) Hct 46.3(H) 35.6 - 45.5 % [facility] ([place]) Plt 287 150 - 400 K/cumm [facility] ([place]) MPV 9.6 9.1 - 12.3 fL [facility] ([place]) RBC 4.87 3.90 - 5.20 M/cumm [facility] ([place]) MCV 95.1 81.3 - 96.4 fL [facility] ([place]) MCH 31.2 27.1 - 33.3 pg [facility] ([place]) MCHC 32.8 32.3 - 35.7 g/dL [facility] ([place]) RDW CV 12.0 11.1 - 14.9 % [facility] ([place]) RDW SD 42.5 35.7 - 48.1 fL [facility] ([place]) NRBC abs 0.00 0.00 - 0.01 K/cumm [facility] ([place]) Blood specimen (specimen) 12/29/2018 2:22 PM CDT 12/29/2018 2:24 PM CDT Narrative [facility] ([place]) - 12/29/2018 2:27 PM CDT Tobias Hancock MD LAB BLOOD ORDERABLES Final Res ult [facility] ([place]) 1 [facility] [employer] [place] [employer] [place] [address] * XR Chest 1 Vw Portable (12/29/2018 2:00 PM CDT) Anatomical Region Laterality Modality Body, Chest N/A Computed Radiogr aphy 12/29/2018 4:16 PM CDT Impressions 12/29/2018 4:18 PM CDT SUGGESTION OF MINIMAL INFILTRATE RIGHT LOWER LUNG FIELD, POSSIBLE PNEUMONIA. Electronically signed by: Zaire Maria M.D Narrative 12/29/2018 4:18 PM CDT XR CHEST 1 VIEW HISTORY: tia. ??COPD. TECHNIQUE: Portable AP view. COMPARISON: 04/17/2014. FINDINGS: Heart size is normal. ??Suggestion of some minimal infiltrate right lower lung field. ??Costophrenic angles are sharp. Midline sternotomy. Procedure Note Zaire Maria MD - 12/29/2018 XR CHEST 1 VIEW HISTORY: tia. COPD. TECHNIQUE: Portable AP view. COMPARISON: 04/17/2014. FINDINGS: Heart size is normal. Suggestion of some minimal infiltrate right lower lung field. Costophrenic angles are sharp. Midline sternotomy. IMPRESSION: SUGGESTION OF MINIMAL INFILTRATE RIGHT LOWER LUNG FIELD, POSSIBLE PNEUMONIA. Electronically signed by: Zaire Maria M.D Tobias Hancock MD IMG XR PROCEDURES Final Result * ECG 12 lead (12/29/2018 1:45 PM CDT) 12/29/2018 1:45 PM CDT Narrative [facility] - 12/30/2018 4:09 PM CDT Vent Rate: 75 bpm RR Interval: 797 msec [place] Interval: 140 msec QRS Duration: 93 msec QT Interval: 393 msec QTC Interval: 422 msec P-R-T [place]: 38 - 60 - 42 degrees SINUS RHYTHM NONSPECIFIC [address] \T\ T-WAVE ABNORMALITY BORDERLINE ECG compared with prior tracing , T wave inversions are less evident . Electronically Signed By: Mariano Nunn MD Tobias Hancock MD ECG ORDERABLES Final Result [facility] * POCT glucose (12/29/2018 1:36 PM CDT) Glucose, POC 95 71 - 98 mg/dL ESTHELA BRADLEY ([place]JE[place]) Blood specimen (specimen) 12/29/2018 1:36 PM CDT 12/29/2018 1:36 PM CDT Narrative ESTHELA BRADLEY ([place]) - 12/29/2018 1:37 PM CDT us Notinfile Unknown LAB POCT ORDERABLES - DEVICE F inal Result ESTHELA BRADLEY ([place]JEET) 1 [facility] [place] [address] documented in this encounter Visit Diagnoses Diagnosis TIA (transient ischemic attack)- Primary Unspecified transient cerebral ischemia Acute cystitis without hematuria Pneumonia of right lower lobe due to infectious organism documented in this encounter Administered Medications Inactive Administered Medications - up to 3 most recent administrations Medication Order MAR Action Action Date Dose Rate Site aspirin tablet 325 mg 325 mg, oral, Once, On 12/29/18 at 2106, For 1 dose Given 12/29/2018 10:21 PM CDT 325 mg atorvastatin (LIPITOR) tablet 20 mg 20 mg, oral, Daily, First dose on Sun12/30/18 at 2100 Given 12/30/2018 9:42 PM CDT 20 mg clopidogrel (PLAVIX) tablet 75 mg 75 mg, oral, Daily, First dose on 12/29/18 at 2245 Given 12/29/2018 10:21 PM CDT 75 mg dextrose (D10W) 10% bolus 250 mL 250 mL, intravenous, at 1,000 mL/hr, Administer over 15 Minutes, Every 15 min PRN, blood glucose less than 70 mg/dL and UNABLE to swallow/take PO glucose/juice., Starting on Sun12/29/18 at 2105, After treatment for hypoglycemia, recheck BG followed by treatment every 15 minutes until the BG is greater than 100 mg/dL. Then check BG 1 hour post treatment. If BG is less than 100 mg/dL, repeat Q15 minute BG checks and treatment. Call MD for each episode of hypoglycemia., Indications: hypoglycemic disorderIndications:hypogl ycemic disorder dextrose gel in packet 15 g 15 g, oral, Every 15 min PRN, low blood sugar, blood glucose less than 70 mg/dL, Starting on Sun12/29/18 at 2105, If patient is alert and able to [...] for each episode of hypoglycemia., Indications: hypoglycemic disorderIndications:hypogl ycemic disorder insulin lispro (HumaLOG) pen injection 1-5 Units 1-5 Units, subcutaneous, 3 times daily with meals, First dose on Sun12/30/18 at 0800, Blood Sugar Mid Dose meal time - PO patients 139 or less No insulin 140 - 175 1 unit 176 - 200 2 unit 201 - 250 3 units 251 - 299 5 units Greater than 299 Call MD for hyperglycemia management instructions Do NOT hold for NPO status., Indications: Diabetes MellitusIndications:Diabet es Mellitus Given 12/30/2018 12:59 PM CDT 1 Units Right Upper Arm ioversol (OPTIRAY 350) syringe syringe 125 mL 125 mL, intravenous, Once in imaging, contrast, Starting on Sun12/30/18 at 1431, For 1 dose Given 12/30/2018 2:34 PM CDT 100 mL ipratropium-albuterol (DUO-NEB) 0.5-2.5 mg/3 mL nebulizer solution 3 mL 3 mL, nebulization, Every 4 hours PRN (correspondence dictator), wheezing, shortness of breath, Starting on Sun12/30/18 at 0130, Indications: Chronic Obstructive Pulmonary Disease with BronchospasmsIndications:C hronic Obstructive Pulmonary Disease with Bronchospasms levoFLOXacin (LEVAQUIN) tablet 750 mg 750 mg, oral, Every 24 hours scheduled, First dose on Sun12/29/18 at 2115, Give 2 hrs before or 2 hrs after MVI, antacids, or other products containing sucralfate, magnesium, aluminum, iron, or zinc. May be taken without regard to meals., Indications: Pneumonia, Community Acquired, Urinary Tract/Genitourinary InfectionIndications:Pneum onia, Community Acquired,Urinary Tract/Genitourinary Infection Given 12/30/2018 9:41 PM CDT 750 mg Given 12/29/2018 10:21 PM CDT 750 mg losartan (COZAAR) tablet 50 mg 50 mg, oral, Daily, First dose on Sun12/30/18 at 1700 Given 12/30/2018 5:53 PM CDT 50 mg metoprolol (LOPRESSOR) tablet 25 mg 25 mg, oral, 2 times daily, First dose on Sun12/30/18 at 2100 Given 12/30/2018 9:42 PM CDT 25 mg ondansetron (ZOFRAN) injection 4 mg 4 mg, intravenous, Administer over 2 Minutes, Every 6 hours PRN, nausea, vomiting, if not tolerating PO, Starting on 12/29/18 at 2105, Indications: Nausea and VomitingIndications:Nausea and Vomiting ondansetron ODT (ZOFRAN-ODT) disintegrating tablet 4 mg 4 mg, oral, Every 6 hours PRN, nausea, vomiting, Starting on Sun12/29/18 at 2105, Indications: Nausea and VomitingIndications:Nausea and Vomiting PARoxetine (PAXIL) tablet 20 mg 20 mg, oral, 2 times daily, First dose on Sun12/29/18 at 2245 Given 12/30/2018 9:39 AM CDT 20 mg Given 12/30/2018 1:16 AM CDT 20 mg PARoxetine (PAXIL) tablet 20 mg 20 mg, oral, Daily, First dose on Sun12/30/18 at 1700 Given 12/30/2018 5:53 PM CDT 20 mg sodium chloride 0.9% infusion 50 mL/hr, intravenous, Continuous, Starting on Sun12/29/18 at 1632 Rate/Dose Verify 12/30/2018 2:00 PM CDT 50 mL/hr 50 mL/hr New Bag 12/29/2018 10:28 PM CDT 50 mL/hr 50 mL/hr New Bag 12/29/2018 2:00 PM CDT 50 mL/hr 50 mL/hr documented in this encounter Historical Medications * This list may reflect changes made after this encounter. 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 Scheduled Medication Order 12/29/2018 12/30/2018 12/31/2018 aspirin tablet 325 mg (COMPLETED) 325 mg, oral, Once, On 12/29/18 at 2106, For 1 dose 2220 (Given - Provider: Jolene Novak RN) atorvastatin (LIPITOR) tablet 20 mg 20 mg, oral, Daily, First dose on Sun12/30/18 at 2100 2142 (Given - Provider: Jolene Novak RN) clopidogrel (PLAVIX) tablet 75 mg 75 mg, oral, Daily, First dose on 12/29/18 at 2245 2221 (Given - Provider: Jolene Novak RN) insulin lispro (HumaLOG) pen injection 1-3 Units 1-3 Units, subcutaneous, Nightly, First dose on 12/29/18 at 2106, Blood Sugar Mid Dose PM - PO patients 175 or less No insulin 176 - 200 1 unit 201 - 250 2 units 251 - 299 3 units Greater than 299 Call MD for hyperglycemia management instructions Do NOT hold for NPO status., Indications: Diabetes Mellitus 2221 (Not Given - Provider: Jolene Novak RN - Reason: Order parameters not met) 2203 (Not Given - Provider: oJlene Novak RN - Reason: Order parameters not met) insulin lispro (HumaLOG) pen injection 1-5 Units 1-5 Units, subcutaneous, 3 times daily with meals, First dose on Sun12/30/18 at 0800, Blood Sugar Mid Dose meal time - PO patients 139 or less No insulin 140 - 175 1 unit 176 - 200 2 unit 201 - 250 3 units 251 - 299 5 units Greater than 299 Call MD for hyperglycemia management instructions Do NOT hold for NPO status., Indications: Diabetes Mellitus 0940 (Not Given - Provider: Reanna Hernandez RN - Reason: Order parameters not met)1259 (Given - Provider: Reanna Hernandez RN)1751 (Not Given - Provider: Reanna Hernandez RN - Reason: Order parameters not met) levoFLOXacin (LEVAQUIN) tablet 750 mg 750 mg, oral, Every 24 hours scheduled, First dose on Sun12/29/18 at 2115, Give 2 hrs before or 2 hrs after MVI, antacids, or other products containing sucralfate, magnesium, aluminum, iron, or zinc. May be taken without regard to meals., Indications: Pneumonia, Community Acquired, Urinary Tract/Genitourinary Infection 222 (Given - Provider: Jolene Novak RN) 214 (Given - Provider: Jolene Novak RN) levothyroxine (SYNTHROID, LEVOTHROID) tablet 75 mcg 75 mcg, oral, Daily (early AM), First dose on Sun12/31/18 at 0600, Administer on an empty stomach, preferably 30 minutes before breakfast. Take 4 hours apart from antacids, iron and calcium products. losartan (COZAAR) tablet 50 mg 50 mg, oral, Daily, First dose on Sun12/30/18 at 1700 1753 (Given - Provider: Reanna Hernandez RN) metoprolol (LOPRESSOR) tablet 25 mg 25 mg, oral, 2 times daily, First dose on Sun12/30/18 at 2100 2142 (Given - Provider: Jolene Novak RN) PARoxetine (PAXIL) tablet 20 mg (CANCELED) 20 mg, oral, 2 times daily, First dose on Sun12/29/18 at 2245 0116 (Given - Provider: Jolene Novak RN)0939 (Given - Provider: Reanna Hernandez RN) PARoxetine (PAXIL) tablet 20 mg 20 mg, oral, Daily, First dose on Sun12/30/18 at 1700 1753 (Given - Provider: Reanna Hernandez, RN) Continuous Medication Order 12/29/2018 12/30/2018 12/31/2018 sodium chloride 0.9% infusion (CANCELED) 50 mL/hr, intravenous, Continuous, Starting on 12/29/18 at 1632 1400 (New Bag - Provider: Leah Mooney, RN)2228 (New Bag - Provider: Jolene Novak, RN) 1400 (Rate/Dose Verify - Provider: Reanna Hernandez, RN)1627 (Stopped - Provider: Reanna Hernandez, RN) PRN Medication Order 12/29/2018 12/30/2018 12/31/2018 acetaminophen (TYLENOL) tablet 650 mg 650 mg, oral, Every 4 hours PRN, 1st line for pain, fever, fever greater than 38.3 C, Starting on 12/29/18 at 2105, Indications: Fever, Pain dextrose (D10W) 10% bolus 250 mL(Linked Group 1) 250 mL, intravenous, at 1,000 mL/hr, Administer over 15 Minutes, Every 15 min PRN, blood glucose less than 70 mg/dL and UNABLE to swallow/take PO glucose/juice., Starting on 12/29/18 at 2105, After treatment for hypoglycemia, recheck BG followed by treatment every 15 minutes until the BG is greater than 100 mg/dL. Then check BG 1 hour post treatment. If BG is less than 100 mg/dL, repeat Q15 minute BG checks and treatment. Call MD for each episode of hypoglycemia., Indications: hypoglycemic disorder dextrose gel in packet 15 g(Linked Group 1) 15 g, oral, Every 15 min PRN, low blood sugar, blood glucose less than 70 mg/dL, Starting on 12/29/18 at 2105, If patient is alert and able to [...] unable to take PO glucose/jiuce., Starting on Sun12/29/18 at 2105, After Glucagon is administered, position patient on [...] for each episode of hypoglycemia., Indications: Hypoglycemia ioversol (OPTIRAY 350) syringe syringe 125 mL (COMPLETED) 125 mL, intravenous, Once in imaging, contrast, Starting on Sun12/30/18 at 1431, For 1 dose 1434 (Given - Provider: Jolene Brooke, R-RT) ipratropium-albuterol (DUO-NEB) 0.5-2.5 mg/3 mL nebulizer solution 3 mL 3 mL, nebulization, Every 4 hours PRN (correspondence dictator), wheezing, shortness of breath, Starting on Sun12/30/18 at 0130, Indications: Chronic Obstructive Pulmonary Disease with Bronchospasms ondansetron (ZOFRAN) injection 4 mg(Linked Group 2) 4 mg, intravenous, Administer over 2 Minutes, Every 6 hours PRN, nausea, vomiting, if not tolerating PO, Starting on Sun12/29/18 at 2105, Indications: Nausea and Vomiting ondansetron ODT (ZOFRAN-ODT) disintegrating tablet 4 mg(Linked Group 2) 4 mg, oral, Every 6 hours PRN, nausea, vomiting, Starting on Sun12/29/18 at 2105, Indications: Nausea and Vomiting Linked Groups Order Group 1: dextrose gel in packet 15 gJump to med 15 g, oral, Every 15 min PRN, low blood sugar, blood glucose less than 70 mg/dL, Starting on Sun12/29/18 at 2105, If patient is alert and able to [...] UNABLE to swallow/take PO glucose/juice., Starting on Sun12/29/18 at 2105, After treatment for hypoglycemia, recheck BG followed [...] 6 hours PRN, nausea, vomiting, Starting on Sun12/29/18 at 2105, Indications: Nausea and Vomiting Or ondansetron (ZOFRAN) injection 4 mgJump to med 4 mg, intravenous, Administer over 2 Minutes, Every 6 hours PRN, nausea, vomiting, if not tolerating PO, Starting on Sun12/29/18 at 2105, Indications: Nausea and Vomiting documented in this encounter Orders Medications Ordered That Drew ht Not Have Been Administered Count Last Ordered Date First Ordered Date ipratropium-albuterol (DUO-N EB) 0.5-2.5 mg/3 mL nebulizer solution 3 mL 2 12/30/2018 12/30/19 19 levothyroxine (SYNTHROID, LE VOTHROID) tablet 75 mcg 1 12/30/2018 acetaminophen (TYLENOL) tablet 650 mg 1 12/2018 dextrose (D10W) 10% bolus 250 mL 1 12/30/19 19 dextrose gel in packet 15 g 1 12/29/2018 glucagon injection 1 mg 1 12/29/2018 insulin lispro (HumaLOG) pen injection 1-3 Units 1 12/29/2018 ondansetron (ZOFRAN) injection 4 mg 1 12/29 ondansetron ODT (ZOFRAN-ODT) disintegrating tablet 4 mg 1 12/29/2018 Nursing Count Last Ordered Date First Orde red Date ACTIVITY 1 12/29/2018 CARDIO RESPIRATORY MONITORING 1 12/29/2018 CONTINUOUS PULSE OXIMETRY 1 12/29/2018 Consult Count Last Ordered Date First Orde red Date IP CONSULT TO NEUROLOGY 1 12/29/2018 IV Count Last Ordered Date First Orde red Date SALINE LOCK IV 1 12/29/2018 Admission Count Last Ordered Date First Orde red Date ASSIGN PATIENT STATUS 2 12/30/20182018 CORE MEASURES Count Last Ordered Date First Ord ered Date REASON FOR NO VTE PROPHYLAXIS AT ADMISSION 1 12/29/2018 ADT Patient Update Count Last Ordered Date Firs t Ordered Date ED IP DECISION TO ADMIT 1 12/29/2018 documented in this encounter Care Teams Senior Product Analyst Relationship Specialty Start Date End Date Robbie Haywood MD [address] [place] [id number] PCP - General 12/29/18 12/13/20 documented as of this encounter
--- OUTSIDE RECORDS SUMMARY | 2024-08-30 18:59 | XMS_ITS | Encounter Summary ---
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 Gender Identity Not on file Sexual Orientation Not on file documented as of this encounter Medications at Time of Discharge aspirin 81 mg enteric coated tablet Take 1 tablet (81 mg total) by mouth nightly levothyroxine (SYNTHROID, LEVOTHROID) 75 mcg tablet Take 1 tablet (75 mcg total) by mouth capacity planning analyst before breakfast 3 12/05/2018 metFORMIN (GLUCOPHAGE) 1,000 [...] on filedocumented in this encounter Care Teams Family And Divorce Legal Assistant Relationship Specialty Start Date End Date Robbie Haywood MD [address] [place] [address] [place], [place] [id number] PCP - General 12/29/18 12/13/20 documented as of this encounter
--- OUTSIDE RECORDS SUMMARY | 2024-08-30 18:59 | XMS_ITS | Encounter Summary ---
Author Organization [facility] Healthcare Address [address] [place] [address] Care Team Providers Care Cooker Sulfite Name Role Phone Unavailable Primary Care Provider Unavailabl e Encounter Details Date Type Department Care Team ([facility] st Contact Info) Description 04/16/2014 11:53 AM CDT - 04/16/2014 11:59 PM CDT Hospital Encounter [facility]dev Lomax [facility] [address] [place] [address] Other specified chronic obstructive airways disease Social History Tobacco Use Types Packs/Day Years Used Date Smoking Tobacco: Former Comments Unknown Sex and Gender Information Value Date Recorded Sex Assigned at Not on file 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 Gender Identity Not on file Sexual Orientation Not on file documented as of this encounter Plan of Treatment Not on file documented as of this encounter Procedures Procedure Name Priority Date/Time Associated Diagnosis Comments BLOOD GAS, ARTERIAL Routine 04/16/2014 1 2:15 PM CDT DISCHARGE LABORATORY CUMULATIVE REPORT 04/16/2014 documented in this encounter Results * (ABNORMAL) Blood gas, arterial (04/16/2014 12:15 PM CDT) Patient temperature 98.6 degrees HISTORICAL RESULTS pH 7.44 7.35 - 7.45 HISTORIC AL RESULTS PCO2 35 32 - 48 mm Hg HISTORICAL RESULTS PO2 73(L) 83 - 108 mm Hg HISTORICAL RESULTS HCO3 25 24 - 32 mmol/L HISTORICAL RESULTS CO2, bld 25 21 - 27 mmol/L HISTORICAL RESULTS BE -0.2 -2.5 - 3.1 mmol/L HISTORICAL RESULTS Hgb estimated, bld 12.9 12.0 - 15.0 g/dl HISTORICAL RESULTS O2 sat 96 92 - 100 % HISTORICA L RESULTS Oxygen (O2), inspired fraction (FiO2) RA HISTORICAL RESULTS Arterial blood 04/16/2014 12 :15 PM CDT Sukhdev Lomax MD LAB BLOOD ORDERABLES Final Result HISTORICAL RESULTS * DISCHARGE LABORATORY CUMULATIVE REPORT (04/16/2014) Narrative 04/16/2014 Ordered by an unspecified provider. Historical Provider LAB BLOOD ORDERABLES Jennifer l Result documented in this encounter Visit Diagnoses Diagnosis Other specified chronic obstructive airways disease documented in this encounter
--- OUTSIDE RECORDS SUMMARY | 2024-08-30 18:59 | XMS_ITS | Encounter Summary ---
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 Unavailable Primary Care Provider Unavailabl e Encounter Details Date Type Department Care Team ([facility] st Contact Info) Description 04/23/2014 11:31 AM CDT - 04/23/2014 1:39 PM CDT Hospital Encounter [facility] [address] [place] [address] Obstructive chronic bronchitis with exacerbation (HCC); Coronary atherosclerosis of chickahominy indian tribe coronary artery; Postsurgical aortocoronary bypass status; Atrial fibrillation (CMS/HCC) (HCC); Essential hypertension; Pure hypercholesterolemia Social History Tobacco Use Types Packs/Day Years Used Date Smoking Tobacco: Former Comments Unknown Sex and Gender Information Value Date Recorded Sex Assigned at Not on file 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 Gender Identity Not on file Sexual Orientation Not on file documented as of this encounter Plan of Treatment Not on file documented as of this encounter Procedures Procedure Name Priority Date/Time Associated Diagnosis Comments XR CHEST PA LATERAL 2 VIEWS Routine 04/23/2014 12:38 PM CDT BLOOD WBC CELL MORPHOLOGIC EXAM, AUTO Routine 04/23/2014 12:22 PM CDT BLOOD CELL COUNT (CBC) Routine 04/23/2014 12:22 PM CDT DISCHARGE LABORATORY CUMULATIVE REPORT Routine 04/23/2014 12:00 AM CDT documented in this encounter Results * XR Chest Pa Lateral 2 Vw (04/23/2014 12:38 PM CDT) Anatomical Region Laterality Modality Body, Chest N/A Radiographic Piedad ging 04/23/2014 12:3 8 PM CDT Narrative 04/23/2014 3:14 PM CDT XR Chest 2 Views ?[id number] ??Acc#: ??[id number] DATE OF EXAM: ??Apr 23 2014 CLINICAL HISTORY: Shortness of breath and chest pain. l RESULT: PA and lateral projections obtained, compared with 03/13/14. ??Elevation of the left hemidiaphragm is once again noted. ??Left basilar atelectasis and left pleural effusion have decreased. ??Right lung is free of confluent infiltrate. Right costophrenic angle is sharp. ??Cardiac silhouette size is stable. ?? Midline sternotomy sutures and postsurgical changes consistent with prior CABG. ??Aorta is somewhat tortuous. ??Mild spurring thoracic spine. IMPRESSION: 1. ??ELEVATION OF THE LEFT HEMIDIAPHRAGM, PREVIOUSLY. ??LEFT BASILAR ATELECTASIS AND LEFT PLEURAL EFFUSION SIGNIFICANTLY DECREASED FROM THE PRIOR STUDY. 2. ??PRIOR CABG. Interpreting Physician: ??EMERITA PEARSON M.D. ??Read on: ??Apr 23 2014 ??1:43P Transcribed by: ??yl ??On: Apr 23 2014 ??3:08P Approved Electronically by: ??EMERITA PEARSON M.D. ??on: ??Apr 23 2014 ??3:14P Ordering DR: ??[facility] Attending DR: ALLISON FONSECA Procedure Note Provider, MD Homero - 12/27/2016 XR Chest 2 Views [id number] Acc#: [id number] DATE OF EXAM: Apr 23 2014 CLINICAL HISTORY: Shortness of breath and chest pain. l RESULT: PA and lateral projections obtained, compared with 03/13/14. Elevation ofthe left hemidiaphragm is once again noted. Left basilar atelectasis andleft pleural effusion have decreased. Right lung is free of confluentinfiltrate. Right costophrenic angle is sharp. Cardiac silhouette size isstable. Midline sternotomy sutures and postsurgical changes consistentwith prior CABG. Aorta is somewhat tortuous. Mild spurring thoracicspine. IMPRESSION: 1. ELEVATION OF THE LEFT HEMIDIAPHRAGM, PREVIOUSLY. LEFT BASILARATELECTASIS AND LEFT PLEURAL EFFUSION SIGNIFICANTLY DECREASED FROM THEPRIOR STUDY. 2. PRIOR CABG. Interpreting Physician: EMERITA PEARSON M.D. Read on: Apr 23 2014 1:43P Transcribed by: celeste On: Apr 23 2014 3:08P Approved Electronically by: EMERITA PEARSON M.D. on: Apr 23 2014 3:14P Ordering DR: Adrian Attending DR: ALLISON FONSECA Historical Provider IMG XR PROCEDURES Final R esult * (ABNORMAL) Blood cell count (CBC) (04/23/2014 12:22 PM CDT) WBC 9.1 4.0 - 10.5 K/cumm HISTORICAL RESULTS RBC 4.58 4.20 - 5.40 M/cumm HISTORICAL RESULTS Hgb 13.7 12.0 - 16.0 g/dl HISTORICAL RESULTS Hct 42.3 37.0 - 47.0 % HISTORICAL RESULTS MCV 92.4 77.0 - 97.0 fl HISTORICAL RESULTS MCH 29.9 23.0 - 34.0 pg HISTORICAL RESULTS MCHC 32.4 32.0 - 36.0 g/dl HISTORICAL RESULTS Rdw 14.8(H) 11.5 - 14.5 % HISTORICAL RESULTS Platelets 290 150 - 400 K/cumm HISTORICAL RESULTS MPV 10.2 7.4 - 10.4 fl HISTORICAL RESULTS Blood specimen (specimen) 04/23/2014 12:22 PM CDT Logan Ervin LAB BLOOD ORDERABLES Final Resu lt HISTORICAL RESULTS * (ABNORMAL) Blood WBC cell morphologic exam, auto (04/23/2014 12:22 PM CDT) Lymphocytes 19.6(L) 25.0 - 33.0 % HISTORICAL RESULTS Monos 8.7 0.0 - 13.0 % HISTORICAL RESULTS Neutrophils 68.3 54.0 - 69.0 % HISTORICAL RESULTS Eosinophils 2.2 0.0 - 10.0 % HISTORICAL RESULTS Basophils 0.9 0.0 - 1.0 % HISTORICAL RESULTS Immature granulocytes 0.3 0.0 - 1.0 % HISTORICAL RESULTS Lymphocytes, abs 1.8 1.2 - 3.4 K/cumm HISTORICAL RESULTS Monocytes, absolute 0.8(L) 1.1 - 1.9 K/cumm HISTORICAL RESULTS Neutrophils, abs 6.2 1.4 - 6.5 K/cumm HISTORICAL RESULTS Eosinophils, abs 0.2 0.0 - 0.7 cells/cum m HISTORICAL RESULTS Basophils, abs 0.1 0.0 - 0.2 K/cumm HISTORICAL RESULTS Immature granulocyte, abs 0.0(H) 0.0 - 0.0 K/cumm HISTORICAL RESULTS Blood specimen (specimen) 04/23/2014 12:22 PM CDT us Logan Ervin LAB BLOOD ORDERABLES Final Resu lt HISTORICAL RESULTS * Discharge Laboratory Cumulative Report (04/23/2014 12:00 AM CDT) 04/23/2014 Narrative HISTORICAL RESULTS - 04/24/2014 12:39 AM CDT Patient No: [id number] ? [facility] Patient Name: TRESSA RODAS ? [facility] Healthcare Age: 59 YRS ?: 1955 ?Sex:F ?[address] )[phone] ?? Adm Dt: 04/23/2014 ?[place] ??[address] Created: 04/24/2014 ??0039 ?? Pt. Type: E ? Discharge Dt: 04/23/2014 ? Pathologists: Emilee Cullen MD Admit Dr. Toro Dr: LOGAN ERVIN MD ? BLOOD CELL COUNTS ?Collection Date: ?04/23/14 ?Collection Time: ?1222 ? Ref Range: ?? Units: [4.00-10.50] /CMM ? WBC X 10^3 ?9.09 [4.20-5.40] ??/CMM ? RBC X 10^6 ?4.58 [12.0-16.0] ??G/DL ? HGB ? 13.7 [37.0-47.0] ??% ?HCT ? 42.3 [77.0-97.0] ??FL ? MCV ? 92.4 [23.0-34.0] ??PG ? MCH ? 29.9 [32.0-36.0] ??% ?MCHC ?32.4 [11.5-14.5] ??% ?RDW ? 14.8 H [150-400] ?? /CMM ? PLT X 10^3 ? 290 ?BLOOD CELL DIFFERENTIAL ?Collection Date: ?04/23/14 ?Collection Time: ?1222 ? Ref Range: ?? Units: [54.0-69.0] ??% ?NEUTROPHILS ? 68.3 [25.0-33.0] ??% ?LYMPHOCYTES ? 19.6 L [0.0-13.0] ??% ?MONOCYTES ?8.7 [0.0-10.0] ??% ?EOSINOPHILS ?2.2 [0.0-1.0] ?? % ?BASOPHILS ?0.9 ? /CMM ? A LYMPHOCYTE ? 1.8 [0.0-1.0] ?? % ?IMM GRAN % ? 0.3 [0.00-0.02] ??/CMM ? A IMM GRAN ?0.03 H [1.1-1.9] ?? /CMM ? A MONOCYTE ? 0.8 L [1.4-6.5] ?? /CMM ? A NEUTROPHIL ? 6.2 [0.0-0.7] ?? /CMM ? A EOSINOPHIL ? 0.2 [0.0-0.2] ?? /CMM ? A BASOPHIL ? 0.1 Footnotes and Symbols: L = Low, H = High ?? END OF CHART ? Page: ?? 1 us Historical Provider LAB BLOOD ORDERABLES Jennifer l Result HISTORICAL RESULTS documented in this encounter Visit Diagnoses Diagnosis Obstructive chronic bronchitis with exacerbation (HCC) Obstructive chronic bronchitis with exacerbation Coronary atherosclerosis of chick[place]om[place] indian tribe coronary artery Postsurgical aortocoronary bypass status Atrial fibrillation (CMS/HCC) (HCC) Atrial fibrillation Essential hypertension Unspecified essential hypertension Pure hypercholesterolemia documented in this encounter
--- OUTSIDE RECORDS SUMMARY | 2024-08-30 18:59 | XMS_ITS | Encounter Summary ---
Author Organization [facility] Facility Care Team Providers Care Service Support Representative Name Role Phone Unavailable Primary Care Provider Unavailabl e Encounter Details Date Type Department Care Team (Latest Contact Info) Description 02/17/2014 2:03 PM CDT - 02/17/2014 4:00 PM CDT Hospital Encounter [facility] Justino Reynoso MD [address] [facility] [address] [place] [address] Pre-procedural laboratory examination; Pre-operative cardiovascular examination; Coronary atherosclerosis; Essential hypertension; Atrial fibrillation (CMS/HCC) (HCC); Obstructive sleep apnea; Obesity; Esophageal reflux; Other and unspecified hyperlipidemia; Personal history of tobacco use, presenting hazards to health; Encounter for long-term (current) use of aspirin; Encounter for long-term (current) use of non-steroidal anti-inflammatories Social History Tobacco Use Types Packs/Day Years Used Date Smoking Tobacco: Never Assessed Comments Unknown Sex and Gender Information Value Date Recorded Sex Assigned at Not on file 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 Gender Identity Not on file Sexual Orientation Not on file documented as of this encounter Plan of Treatment Not on file documented as of this encounter Procedures Procedure Name Priority Date/Time Associated Diagnosis Comments URINE (AEROBIC) CULTURE, CDR Routine 02/17/2014 8:14 PM CDT XR CHEST PA LATERAL 2 VIEWS Routine 02/17/2014 5:13 PM CDT URINE MICROSCOPY Routine 02/17/2014 5:07 PM CDT PLASMA PROTHROMBIN TIME (PT) Routine 02/17/2014 5:07 PM CDT PLASMA COMPREHENSIVE METABOLIC PANEL Routine 02/17/2014 5:07 PM CDT BLOOD CELL COUNT Routine 02/17/2014 5:07 PM CDT URINALYSIS Routine 02/17/2014 5:07 PM CDT BLOOD ABO, RH, INDIRECT AB SCREEN Routine 02/17/2014 5:07 PM CDT ELECTROCARDIOGRAPHY (ECG) 02/17/2014 ALL MICROBIOLOGY REPORT SECTION Routine 02/17/2014 12:00 AM CDT DISCHARGE LABORATORY CUMULATIVE REPORT Routine 02/17/2014 12:00 AM CDT documented in this encounter Results * Urine (aerobic) culture (02/17/2014 8:14 PM CDT) Organism ECOL^[id number] 3 HISTORICAL RESULTS Urine (Unknown) 02/17/2014 8 :14 PM CDT 02/17/2014 8:35 PM CDT Narrative HISTORICAL RESULTS - 02/19/2014 2:50 PM CDT Greater than or equal to 50,000 colonies/ml of Escherichia coli Organism Antibiotic Method Susceptibility Escherichia coli Ampicillin Resistant Escherichia coli Cefazolin Resistant Escherichia coli Nitrofurantoin Susceptible Escherichia coli Gentamicin Susceptible Escherichia coli Trimethoprim with Sulfamethoxazole Susceptible Escherichia coli Meropenem Susceptible Escherichia coli Cefepime Susceptible Escherichia coli Ciprofloxacin Susceptible Escherichia coli Ceftriaxone Susceptible Escherichia coli Piperacillin/Tazobactam Susceptible us Historical Provider LAB MICROBIOLOGY - GENERA L ORDERABLES Final Result HISTORICAL RESULTS * XR Chest Pa Lateral 2 Views (02/17/2014 5:13 PM CDT) Anatomical Region Laterality Modality Body, Chest N/A Radiographic Piedad ging 02/17/2014 5:13 PM CDT Narrative 02/18/2014 11:36 AM CDT Barbara KEITA M.D. FINAL REPORT The radiology attending physician has personally reviewed this study, and has reviewed and/or edited this written report and agrees with it. ACC# ??Date Time ??Exam [id number] Feb 17, 2014 17:13:00 [id number] Chest 2 views Frontl & Lat EXAMINATION: ?? Chest 2 views IMPRESSION: ?? Radiographs of the chest are obtained without comparison. ?? Cardiomediastinal silhouette is normal. Lungs are clear. There is no pleural effusion or pneumothorax. Requested By: ASHLI PÉREZ ??Wander. Dictated By: ?? CHARLES FLORES M.D. ??on Feb 18 2014 ??8:30A This document has been electronically signed by: PRAVEENA JOHN M.D. on Feb 18 2014 11:36A Procedure Note Provider, MD Homero - 02/01/2017 Barbara KEITA M.D. FINAL REPORT The radiology attending physician has personally reviewed this study, and has reviewed and/or edited this written report and agrees with it. ACC# Date Time Exam [id number] Feb 17, 2014 17:13:00 [id number] Chest 2 views Frontl & Lat EXAMINATION: Chest 2 views IMPRESSION: Radiographs of the chest are obtained without comparison. Cardiomediastinal silhouette is normal. Lungs are clear. There is no pleural effusion or pneumothorax. Requested By: ASHLI PÉREZ M.D. Dictated By: CHARLES FLORES M.D. on Feb 18 2014 8:30A This document has been electronically signed by: PRAVEENA JOHN M.D. on Feb 18 2014 11:36A us Historical Provider MD GROVES XR PROCEDURES Final R esult * Blood ABO, Rh, indirect ab screen (02/17/2014 5:07 PM CDT) ABO, Rho(D) O Positive HISTORI BRUNO RESULTS Tywla, indirect Negative HISTORICAL RESULTS Blood specimen (specimen) 02/17/2014 5:07 PM CDT Ashli Pérez MD PhD LAB BLOOD ORDERABLES F inal Result Performing Organization Address [facility] de Phone Number HISTORICAL RESULTS * (ABNORMAL) Urinalysis (02/17/2014 5:07 PM CDT) Color, ur Yellow Yellow HISTORICAL RESULTS Clarity, ur Cloudy(A) Clear HISTORIC AL RESULTS Specific gravity, ur 1.017 1.003 - 1.030 HISTORICAL RESULTS pH, ur 5.0 5.0 - 8.0 HISTORICAL RESULTS Protein, ur Negative Trace HISTORIC AL RESULTS Glucose, ur Negative Negative HISTORIC AL RESULTS Ketones, ur Negative Negative HISTORIC AL RESULTS Bilirubin, ur Negative Negative HISTOR ICAL RESULTS U Blood Negative Negative HISTORICAL RESULTS Urobilinogen, quant, ur <2.0 0.0 - 2.0 mg/dl HISTORICAL RESULTS Nitrites, ur Positive(A) Negative HISTO RICAL RESULTS Leukocyte esterase, ur Negative Negative HISTORICAL RESULTS Urine 02/17/2014 5:07 PM CDT Ashli Pérez MD PhD LAB BLOOD ORDERABLES F inal Result Performing Organization Address [facility] de Phone Number HISTORICAL RESULTS * Urine microscopy (02/17/2014 5:07 PM CDT) Pathologist [facility] RBC, ur 1 0 - 3 /hpf HISTORICA L RESULTS WBC, ur 4 0 - 5 /hpf HISTORICA L RESULTS Bacteria, ur 1+ Trace HISTORI BRUNO RESULTS Epithelial cells, renal, ur 0 0 - 0 /hpf HISTORICAL RESULTS Epithelial cells, squamous, ur 12 /lpf HISTORICAL RESULTS Mucus, ur Small /hpf HISTORICAL RESULTS Urine 02/17/2014 5:07 PM CDT Ashli Pérez MD PhD LAB BLOOD ORDERABLES F inal Result Performing Organization Address [facility] de Phone Number HISTORICAL RESULTS * (ABNORMAL) Plasma comprehensive metabolic panel (02/17/2014 5:07 PM CDT) Sodium 142 135 - 145 mmol/L HISTORICAL RESULTS K, pl 4.6 3.3 - 4.9 mmol/L HISTORICAL RESULTS Chloride 108 97 - 110 mmol/L HISTORICAL RESULTS CO2 24 22 - 32 mmol/L HISTORICAL RESULTS A. gap 10 0 - 16 mmol/L HISTORICAL RESULTS Glucose 94 70 - 199 mg/dl HISTORICAL RESULTS BUN 19 8 - 25 mg/dl HISTORICAL RESULTS Creatinine 0.72 0.60 - 1.10 mg/dl HISTORICAL RESULTS Calcium 9.0 8.6 - 10.3 mg/dl HISTORICAL RESULTS Protein, pl 7.3 6.5 - 8.5 g/dl HISTORICAL RESULTS Alb 4.1 3.6 - 5.0 g/dl HISTORICAL RESULTS Bilirubin 0.2(L) 0.3 - 1.1 mg/dl HISTORICAL RESULTS Alk phos 89 38 - 126 Units/L HISTORICAL RESULTS AST 19 11 - 47 Units/L HISTORICAL RESULTS ALT 28 7 - 53 Units/L HISTORICAL RESULTS Plasma 02/17/2014 5:07 PM CDT Ashli Pérez MD PhD LAB BLOOD ORDERABLES F inal Result HISTORICAL RESULTS * Plasma prothrombin time (PT) (02/17/2014 5:07 PM CDT) Prothrombin time (PT) 11.0 9.0 - 12.0 seconds HISTORICAL RESULTS INR 1.05 0.90 - 1.20 HISTORIC AL RESULTS Comment: Interpretive Data Inpatient therapeutic ranges* Atrial fibrillation ?2.0-3.0 INR Venous thrombo-embolism ?2.0-3.0 INR Bioprosthetic heart valve ?* Mechanical heart valve, bileaflet or tilting disk,aortic position ? 2.0-3.0 INR All other,or bileaflet or tilting disk, in mitral position ? 2.5-3.5 INR *See the pharmacy resource directory (PHRED) for an updated copy of the Tool Book at http://intramed.wustl.[facility]/bjc/pharmacy.nsf Current Interpretive Data was last revised 2011. Plasma 02/17/2014 5:07 PM CDT Ashli Pérez MD PhD LAB BLOOD ORDERABLES F inal Result Performing Organization Address [facility] Co de Phone Number HISTORICAL RESULTS * Blood cell count [CBC] express (02/17/2014 5:07 PM CDT) Pathologist [facility] WBC 9.0 3.8 - 9.8 K/cumm HISTORICAL RESULTS RBC 4.40 3.90 - 5.00 M/cumm HISTORICAL RESULTS Hgb 13.0 12.1 - 15.1 g/dl HISTORICAL RESULTS Hct 39.8 36.1 - 44.3 % HISTORICAL RESULTS MCV 90.4 80.0 - 97.6 fl HISTORICAL RESULTS MCH 29.6 26.7 - 33.7 pg HISTORICAL RESULTS MCHC 32.8 32.7 - 35.5 g/dl HISTORICAL RESULTS Rdw 13.4 11.8 - 14.6 % HISTORICAL RESULTS Platelets 273 140 - 440 K/cumm HISTORICAL RESULTS MPV 8.5 6.8 - 10.4 fl HISTORICAL RESULTS Blood specimen (specimen) 02/17/2014 5:07 PM CDT Ashli Pérez MD PhD LAB BLOOD ORDERABLES F inal Result Performing Organization Address [facility] Co de Phone Number HISTORICAL RESULTS * All Microbiology Report Section (02/17/2014 12:00 AM CDT) 02/17/2014 Narrative HISTORICAL RESULTS - 02/19/2014 3:32 PM CDT ? [facility] ?[facility] [place] [address] ? Patient Name: ??TRESSA RODAS ? Med Rec Number: [id number] ? Fin Number: ?[id number] ? Date: ?1955 ? Sex/Age: ? Female 59 years ? Admit Date: ?02/17/2014 ? Discharge Date: 02/17/2014 ? Doctor: ?Doyle , Justino R ? Facility: ?[facility] ? Location: ?CPAP ?* Abnormal ??A Alert ??f Footnote ??^ Corrected ??L Low ??H High ?i Interp Data ??@ Ref Lab ? Chart Type:Cumulative ?* * * * MICROBIOLOGY - URINE * * * * ?PROCEDURE: Urine Culture ? SOURCE: Urine ? COLLECTED: 02/17/14 ??2013 ?BODY SITE: ? STARTED: 02/17/14 ??2034 ? FREE TEXT SOURCE: ? FINAL REPORT ? REPORTED: 02/19/14 1450 ? Greater than or equal to 50,000 colonies/ml of Escherichia coli ? SUSCEPTIBILITY RESULTS ? Escherichia coli ?SUSCEPTIBLE: Nitrofurantoin,Gentamicin, ? Trimethoprim with Sulfamethoxazole, ? Meropenem,Cefepime,Ciprofloxacin, ? Ceftriaxone, ? Piperacillin/Tazobactam ?RESISTANT: Ampicillin,Cefazolin ? us Historical Provider MD LAB MICROBIOLOGY - GENERA L ORDERABLES Final Result Performing Organization Address [facility]/State/ZIP Co de Phone Number HISTORICAL RESULTS * Discharge Laboratory Cumulative Report (02/17/2014 12:00 AM CDT) 02/17/2014 Narrative HISTORICAL RESULTS - 02/19/2014 3:24 PM CDT ?[facility] ?Department of Laboratories ? [facility] [place] ? [place] [address] Patient Name: ??TRESSA RODAS Med Rec Number: [id number] Fin Number: ?[id number] Date: ?1955 Sex/Age: ? Female 59 years Admit Date: ?02/17/2014 Discharge Date: 02/17/2014 Doctor: ?Doyle Justino Facility: ?[facility] Location: ?CPAP Chart Printed: 02/19/2014 15:24 ?? * Abnormal ?? C Critical ?? f Footnote ?? ^ Corrected ?? L Low ?? H High ? i Interp Data ?? @ Reference Lab ? Chart Type:Periodic ? MICROBIOLOGY - ALL TESTS ? PROCEDURE: Urine Culture ?SOURCE: Urine COLLECTED: 02/17/14 ??2013 ? BODY SITE: STARTED: 02/17/14 ??2034 FREE TEXT SOURCE: FINAL REPORT REPORTED: 02/19/14 1450 Greater than or equal to 50,000 colonies/ml of Escherichia coli SUSCEPTIBILITY RESULTS Escherichia coli ? SUSCEPTIBLE: Nitrofurantoin,Gentamicin, ?Trimethoprim with Sulfamethoxazole, ?Meropenem,Cefepime,Ciprofloxacin, ?Ceftriaxone, ?Piperacillin/Tazobactam ? RESISTANT: Ampicillin,Cefazolin ? MICROBIOLOGY - URINE ? PROCEDURE: Urine Culture ?SOURCE: Urine COLLECTED: 02/17/14 ??2013 ? BODY SITE: STARTED: 02/17/14 ??2034 FREE TEXT SOURCE: FINAL REPORT REPORTED: 02/19/14 1450 Greater than or equal to 50,000 colonies/ml of Escherichia coli SUSCEPTIBILITY RESULTS Escherichia coli ? SUSCEPTIBLE: Nitrofurantoin,Gentamicin, ?Trimethoprim with Sulfamethoxazole, ?Meropenem,Cefepime,Ciprofloxacin, ?Ceftriaxone, ?Piperacillin/Tazobactam ? RESISTANT: Ampicillin,Cefazolin us Historical Provider LAB BLOOD ORDERABLES Jennifer doran Result HISTORICAL RESULTS * ELECTROCARDIOGRAPHY (ECG) (02/17/2014) Narrative 02/17/2014 Ordered by an unspecified provider. us Historical Provider ECG ORDERABLES Final Res ult documented in this encounter Visit Diagnoses Diagnosis Pre-procedural laboratory examination Pre-operative cardiovascular examination Coronary atherosclerosis Coronary atherosclerosis of unspecified type of vessel, united [place]ub[place] or graft Essential hypertension Unspecified essential hypertension Atrial fibrillation (CMS/HCC) (HCC) Atrial fibrillation Obstructive sleep apnea Obstructive sleep apnea (adult) (pediatric) Obesity Obesity, unspecified Esophageal reflux Other and unspecified hyperlipidemia Personal history of tobacco use, presenting hazards to health Encounter for long-term (current) use of aspirin Encounter for long-term (current) use of non-steroidal anti-inflammatories documented in this encounter
--- OUTSIDE RECORDS SUMMARY | 2024-08-30 18:59 | XMS_ITS | Encounter Summary ---
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 Gender Identity Not on file Sexual Orientation Not on file documented as of this encounter Medications at Time of Discharge levothyroxine (SYNTHROID, LEVOTHROID) 75 mcg tablet Take 1 tablet (75 mcg total) by mouth outpatient coding specialist before breakfast 3 12/05/2018 metFORMIN (GLUCOPHAGE) 1,000 mg tablet Take 1 tablet (1,000 mg total) by mouth 2 (two) times a day with meals 3 12/05/2018 documented as of this encounter Discharge Disposition Disposition Code Departure Means Destination Discharge to home or self care documented in this encounter Plan of Treatment Not on file documented as of this encounter Visit Diagnoses Not on filedocumented in this encounter Care Teams Director Of Consumer Marketing Relationship Specialty Start Date End Date Robbie Haywood MD [address] [place] [address] PCP - General 12/29/18 12/13/20 documented as of this encounter
--- OUTSIDE RECORDS SUMMARY | 2024-08-30 18:59 | XMS_ITS | Encounter Summary ---
Author Organization [facility] Address [address] [place] [address] Care Team Providers Care Technical Artist Name Role Phone Robbie Haywood MD Primary Care Provider [phone] Zan Lee MD Unavailable [phone] Encounter Details Date Type Department Care Team (Late st Contact Info) Description 06/22/2017 Orders Only [facility] [address] [address] Kristin Hdz MA Screen for colon cancer (Primary Dx) Social History Tobacco Use Types Packs/Day Years Used Date Smoking Tobacco: Former AUDIT-C Answer Date Recorded Frequency of Alcohol Consumption Never 12/29/2018 Average Number of Drinks Not on file 019 Frequency of Binge Drinking Not on file 12/2018 PHQ-2 Answer Date Recorded PHQ-2 Score 0 04/19/2019 Comments Unknown Sex and Gender Information Value Date Recorded Sex Assigned at Not on file 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 Gender Identity Not on file Sexual Orientation Not on file documented as of this encounter Plan of Treatment Scheduled Orders Name Type Priority Associated Diagnoses Orde r Schedule Stool DNA - Cologuard Lab Routine Screen for colon cancer 1 Occurrences starting 06/22/2017 until 06/22/2018 documented as of this encounter Visit Diagnoses Diagnosis Screen for colon cancer- Primary Special screening for malignant neoplasms, colon documented in this encounter Care Teams Technical Artist Relationship Specialty Start Date End Date Robbie Haywood MD [address] [place] [address] PCP - General 12/29/18 12/13/20 Zan Lee MD [address] [place] [address] Surgeon Neurosurgery 01/02/19 documented as of this encounter
--- OUTSIDE RECORDS SUMMARY | 2024-08-30 18:59 | XMS_ITS | Encounter Summary ---
Author Organization [facility] Healthcare Address [address] [place] [address] Care Team Providers Care Forest Engineer Name Role Phone Unavailable Primary Care Provider Unavailabl e Encounter Details Date Type Department Care Team ([facility] st Contact Info) Description 03/13/2014 9:56 AM CDT - 03/13/2014 2:18 PM CDT Hospital Encounter [facility] Yesenia Allen MD [address] [place] [address] Shortness of breath; Anxiety state; Chest pain Social History Tobacco Use Types Packs/Day Years Used Date Smoking Tobacco: Never Assessed Comments Unknown Sex and Gender Information Value Date Recorded Sex Assigned at Not on file 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 Gender Identity Not on file Sexual Orientation Not on file documented as of this encounter Plan of Treatment Not on file documented as of this encounter Procedures Procedure Name Priority Date/Time Associated Diagnosis Comments CT CHEST W CONTRAST Routine 03/13/2014 1 2:30 PM CDT XR CHEST PA LATERAL 2 VIEWS Routine 03/13/2014 11:08 AM CDT SERUM MAGNESIUM Routine 03/13/2014 10:54 AM CDT SERUM COMPREHENSIVE METABOLIC PANEL Routine 03/13/2014 10:54 AM CDT PLASMA PROTHROMBIN TIME (PT) Routine 03/13/2014 10:54 AM CDT PLASMA PARTIAL THROMBOPLASTIN TIME (PTT) Routine 03/13/2014 10:54 AM CDT BLOOD WBC CELL MORPHOLOGIC EXAM, AUTO Routine 03/13/2014 10:54 AM CDT BLOOD CELL COUNT (CBC) Routine 4 10:54 AM CDT SERUM TROPONIN I Routine 03/13/2014 5:54 AM CDT BLOOD D-DIMER Routine 03/13/2014 5:54 AM CDT BLOOD B-TYPE NATRIURETIC PEPTIDE (BNP) Routine 03/13/2014 5:54 AM CDT ELECTROCARDIOGRAPHY (ECG) 03/13/2014 DISCHARGE LABORATORY CUMULATIVE REPORT Routine 03/13/2014 12:00 AM CDT documented in this encounter Results * CT Chest W Contrast (03/13/2014 12:30 PM CDT) Anatomical Region Laterality Modality Body N/A Computed Tomogra phy 03/13/2014 12:3 0 PM CDT Narrative 03/13/2014 1:[address] Chest PE W ?[id number] ??Acc#: ??[id number] DATE OF EXAM: ??Mar 13 2014 CLINICAL HISTORY: Shortness of breath. ??Recent bypass surgery. RESULT: Following the administration of 120ml Optiray 350, a PE protocol chest CT was performed. ??No filling defects are noted in the pulmonary arteries to indicate pulmonary embolism. ??Wire sternal sutures and a linear lucency through the sternum are consistent with a recent cardiothoracic procedure. ??A small left pleural effusion with associated compressive atelectasis is seen. ??No suspicious nodule or infiltrate is noted on the right. ??The heart is normal in size. ??No mediastinal, hilar, or axillary lymphadenopathy is seen. ??A small hiatal hernia is noted. ??Limited views through the upper abdomen reveal a few diverticula in the left colon. IMPRESSION: 1. NO PULMONARY EMBOLISM. 2. SMALL LEFT PLEURAL EFFUSION WITH ASSOCIATED COMPRESSIVE ATELECTASIS. 3. SURGICAL CHANGES ASSOCIATED WITH A RECENT CORONARY ARTERY BYPASS GRAFT. RESULTS WERE REPORTED TO DR. OLMOS IN THE ER AT 1248 BY MYSELF. Interpreting Physician: ??SAWYER NINA M.D. ??Read on: ??Mar 13 2014 12:45P Transcribed by: ??mrr ??On: Mar 13 2014 ??1:34P Approved Electronically by: ??SAWYER NINA M.D. ??on: ??Mar 13 2014 1:59P Ordering DR: DR YESENIA OLMOS Attending DR: DR YESENIA OLMOS Procedure Note Provider, MD Homero - 12/27/2016 CT Chest PE W [id number] Acc#: [id number] DATE OF EXAM: Mar 13 2014 CLINICAL HISTORY: Shortness of breath. Recent bypass surgery. RESULT: Following the administration of 120ml Optiray 350, a PE protocol chest CTwas performed. No filling defects are noted in the pulmonary arteries toindicate pulmonary embolism. Wire sternal sutures and a linear lucencythrough the sternum are consistent with a recent cardiothoracic procedure.A small left pleural effusion with associated compressive atelectasis isseen. No suspicious nodule or infiltrate is noted on the right. Theheart is normal in size. No mediastinal, hilar, or axillarylymphadenopathy is seen. A small hiatal hernia is noted. Limited viewsthrough the upper abdomen reveal a few diverticula in the left colon. IMPRESSION: 1. NO PULMONARY EMBOLISM. 2. SMALL LEFT PLEURAL EFFUSION WITH ASSOCIATED COMPRESSIVE ATELECTASIS. 3. SURGICAL CHANGES ASSOCIATED WITH A RECENT CORONARY ARTERY BYPASS GRAFT.RESULTS WERE REPORTED TO DR. OLMOS IN THE ER AT 1248 BY MYSELF. Interpreting Physician: SAWYER NINA M.D. Read on: Mar 13 201412:45P Transcribed by: mrr On: Mar 13 2014 1:34P Approved Electronically by: SAWYER NINA M.D. on: Mar 13 20141:59P Ordering DR: DR YESENIA OLMOS Attending DR: DR YESENIA OLMOS us Historical Provider MD GROVES CT PROCEDURES Final R esult * XR Chest Pa Lateral 2 Vw (03/13/2014 11:08 AM CDT) Anatomical Region Laterality Modality Body, Chest N/A Radiographic Piedad ging 03/13/2014 11:0 8 AM CDT Narrative 03/13/2014 1:59 PM CDT XR Chest 2 Views ?[id number] ??Acc#: ??[id number] DATE OF EXAM: ??Mar 13 2014 CLINICAL HISTORY: Chest pain, shortness of breath and recent CABG. RESULT: PA and lateral views of the chest were obtained and are compared with a prior study from 04/25/13. ??Since the prior exam, the patient has undergone cardiothoracic surgery as manifested by new sternal wires and mediastinal clips. ??The left hemidiaphragm appears elevated. ??Infiltrates or an effusion are noted in the left lower lung. ??The heart is normal in size. ??The right lung is free of active infiltrates. IMPRESSION: 1. NEW EVIDENCE OF CARDIOTHORACIC SURGERY. 2. ELEVATED LEFT HEMIDIAPHRAGM WITH ASSOCIATED INFILTRATES OR EFFUSION IN THE LEFT LOWER LUNG. Interpreting Physician: ??SAWYER NINA M.D. ??Read on: ??Mar 13 2014 11:22A Transcribed by: ??mrr ??On: Mar 13 2014 ??1:01P Approved Electronically by: ??SAWYER NINA M.D. ??on: ??Mar 13 2014 1:59P Ordering DR: DR YESENIA OLMOS Attending DR: ALLISON FONSECA Procedure Note Provider, MD Homero - 12/27/2016 XR Chest 2 Views [id number] Acc#: [id number] DATE OF EXAM: Mar 13 2014 CLINICAL HISTORY: Chest pain, shortness of breath and recent CABG. RESULT: PA and lateral views of the chest were obtained and are compared with aprior study from 04/25/13. Since the prior exam, the patient has undergonecardiothoracic surgery as manifested by new sternal wires and mediastinalclips. The left hemidiaphragm appears elevated. Infiltrates or aneffusion are noted in the left lower lung. The heart is normal in size.The right lung is free of active infiltrates. IMPRESSION: 1. NEW EVIDENCE OF CARDIOTHORACIC SURGERY. 2. ELEVATED LEFT HEMIDIAPHRAGM WITH ASSOCIATED INFILTRATES OR EFFUSION INTHE LEFT LOWER LUNG. Interpreting Physician: SAWYER NINA M.D. Read on: Mar 13 201411:22A Transcribed by: mikel On: Mar 13 2014 1:01P Approved Electronically by: SAWYER NINA M.D. on: Mar 13 20141:59P Ordering DR: DR YESENIA OLMOS Attending DR: ALLISON FONSECA us Historical Provider IMFran XR PROCEDURES Final R esult * Plasma partial thromboplastin time (PTT) (03/13/2014 10:54 AM CDT) APTT 24.0 -<36. seconds HISTOR ICAL RESULTS Plasma 03/13/2014 10:5 4 AM CDT us Yesenia Olmos MD LAB BLOOD ORDERABLES Jennifer l Result HISTORICAL RESULTS * Plasma prothrombin time (PT) (03/13/2014 10:54 AM CDT) Prothrombin time (PT) 13.5 10.9 - 14.8 seconds HISTORICAL RESULTS INR 1.07 HISTORICAL RESULTS Comment: RECOMMENDED RANGES FOR PROTIME INR: NOTE: THE INR HAS BEEN VALIDATED ONLY FOR PATIENTS ON STABLE ORAL ?ANTICOAGULANT THERAPY. ?2.0 - 3.0 ??PROPHYLAXIS OF VENOUS THROMBOSIS (HIGH RISK SURGERY) ?2.0 - 3.0 ??TREATMENT OF VENOUS THROMBOSIS ?2.0 - 3.0 ??TREATMENT OF PULMONARY EMBOLISM ?2.0 - 3.0 ??PREVENTION OF SYSTEMIC EMBOLISM ? TISSUE HEART VALVES ? AMI (TO PREVENT SYSTEMIC EMBOLISM)* ? VALVULAR HEART DISEASE ? ATRIAL FIBRILLATION ?2.5 - 3.5 ??MECHANICAL PROSTHETIC VALVES (HIGH RISK) ?2.0 - 3.0 ??BILEAFLET MECHANICAL VALVE IN AORTIC POSITION *If oral anticoagulant therapy is elected to prevent recurrent myocardial infarction, an INR of 2.5 to 3.5 is recommended, consistent with Food and Drug Administration recommendations. Plasma 03/13/2014 10:5 4 AM CDT Yesenia Olmos MD LAB BLOOD ORDERABLES Jennifer l Result Performing Organization Address [facility] de Phone Number HISTORICAL RESULTS * Serum magnesium (03/13/2014 10:54 AM CDT) Magnesium 2.0 1.5 - 2.2 mg/dl HISTORICAL RESULTS Serum 03/13/2014 10:5 4 AM CDT Yesenia Olmos MD LAB BLOOD ORDERABLES Jennifer l Result Performing Organization Address [facility] de Phone Number HISTORICAL RESULTS * (ABNORMAL) Blood cell count (CBC) (03/13/2014 10:54 AM CDT) WBC 7.7 4.0 - 10.5 K/cumm HISTORICAL RESULTS RBC 4.12(L) 4.20 - 5.40 M/cumm HISTORICAL RESULTS Hgb 12.3 12.0 - 16.0 g/dl HISTORICAL RESULTS Hct 38.2 37.0 - 47.0 % HISTORICAL RESULTS MCV 92.7 77.0 - 97.0 fl HISTORICAL RESULTS MCH 29.9 23.0 - 34.0 pg HISTORICAL RESULTS MCHC 32.2 32.0 - 36.0 g/dl HISTORICAL RESULTS Rdw 14.9(H) 11.5 - 14.5 % HISTORICAL RESULTS Platelets 417(H) 150 - 400 K/cumm HISTORICAL RESULTS MPV 9.1 7.4 - 10.4 fl HISTORICAL RESULTS Blood specimen (specimen) 03/13/2014 10:54 AM CDT Yesenia Olmos MD LAB BLOOD ORDERABLES Jennifer l Result Performing Organization Address [facility] de Phone Number HISTORICAL RESULTS * (ABNORMAL) Blood WBC cell morphologic exam, auto (03/13/2014 10:54 AM CDT) Pathologist [facility] Lymphocytes 18.4(L) 25.0 - 33.0 % HISTORICAL RESULTS Monos 10.0 0.0 - 13.0 % HISTORICAL RESULTS Neutrophils 69.4(H) 54.0 - 69.0 % HISTORICAL RESULTS Eosinophils 0.9 0.0 - 10.0 % HISTORICAL RESULTS Basophils 1.2(H) 0.0 - 1.0 % HISTORICAL RESULTS Immature granulocytes 0.1 0.0 - 1.0 % HISTORICAL RESULTS Lymphocytes, abs 1.4 1.2 - 3.4 K/cumm HISTORICAL RESULTS Monocytes, absolute 0.8(L) 1.1 - 1.9 K/cumm HISTORICAL RESULTS Neutrophils, abs 5.3 1.4 - 6.5 K/cumm HISTORICAL RESULTS Eosinophils, abs 0.1 0.0 - 0.7 cells/cum m HISTORICAL RESULTS Basophils, abs 0.1 0.0 - 0.2 K/cumm HISTORICAL RESULTS Immature granulocyte, abs 0.0 0.0 - 0.0 K/cumm HISTORICAL RESULTS Blood specimen (specimen) 03/13/2014 10:54 AM CDT Yesenia Olmos MD LAB BLOOD ORDERABLES Jennifer doran Result HISTORICAL RESULTS * (ABNORMAL) Serum comprehensive metabolic panel (03/13/2014 10:54 AM CDT) Pathologist [facility] BUN 22.0 6.0 - 23.0 mg/dl HISTORICAL RESULTS ALT 37 15 - 70 Units/L HISTORICAL RESULTS Sodium 140 134 - 143 mmol/L HISTORICAL RESULTS Potassium, sr 4.0 3.4 - 5.0 mmol/L HISTORICAL RESULTS Chloride 105 99 - 108 mmol/L HISTORICAL RESULTS CO2 25 23 - 32 mmol/L HISTORICAL RESULTS Glucose 186 70 - 199 mg/dl HISTORICAL RESULTS Comment: Note:The glucose is assumed non fasting Fastin-99 mg/dl Random: 70-199 mg/dl Either a fasting glucose > 126 mg/dL or a random glucose > 200 mg/dL plus symptoms is diagnostic of diabetes when confirmed on another day. Fasting values > 100 mg/dl but < 125 mg/dL are diagnostic of impaired fasting glucose. New reference ranges implemented 07/07/2013. Creatinine 1.06 0.60 - 1.30 mg/dl HISTORICAL RESULTS BUN/creat ratio 21(H) 10 - 20 HIST ORICAL RESULTS A. gap 14 7 - 14 mmol/L HISTORICAL RESULTS Protein, sr 7.5 6.4 - 8.0 g/dl HISTORICAL RESULTS Alb 3.1(L) 3.3 - 4.5 g/dl HISTORICAL RESULTS Alb/glob ratio 0.7(L) 1.1 - 1.8 HISTO RICAL RESULTS Calcium 9.1 8.6 - 9.8 mg/dl HISTORICAL RESULTS Bilirubin 0.5 0.0 - 1.1 mg/dl HISTORICAL RESULTS Alk phos 169(H) 44 - 125 Units/L HISTORICAL RESULTS AST 18 5 - 40 Units/L HISTORICAL RESULTS Serum 03/13/2014 10:5 4 AM CDT Yesenia Olmos MD LAB BLOOD ORDERABLES Jennifer l Result Performing Organization Address [facility] de Phone Number HISTORICAL RESULTS * (ABNORMAL) Blood D-dimer (03/13/2014 5:54 AM CDT) D-dimer 3.73(H) 0.00 - 0.50 mcg/ml HISTORICAL RESULTS Blood specimen (specimen) 03/13/2014 5:54 AM CDT Narrative HISTORICAL RESULTS - 03/13/2014 6:25 AM CDT Units of Measure = ug/ml FEU The D-Dimer result should not be used as the sole indicator to rule in or exclude a diagnosis of Pulmonary Embolism or Deep Vein Thrombosis. Yesenia Olmos MD LAB BLOOD ORDERABLES Jennifer l Result Performing Organization Address [facility] Co de Phone Number HISTORICAL RESULTS * (ABNORMAL) Blood B-type natriuretic peptide (BNP) (03/13/2014 5:54 AM CDT) BNP 289(H) -<100 pg/ml HISTORIC AL RESULTS Blood specimen (specimen) 03/13/2014 5:54 AM CDT Narrative HISTORICAL RESULTS - 03/13/2014 6:44 AM CDT BNP REFERENCE RANGE <100 pg/ml us Yesenia Olmos MD LAB BLOOD ORDERABLES Jennifer l Result Performing Organization Address [facility] de Phone Number HISTORICAL RESULTS * Serum troponin I (03/13/2014 5:54 AM CDT) Troponin I <0.04 0.00 - 0.10 ng/ml HISTORICAL RESULTS Serum 03/13/2014 5:54 AM CDT Narrative HISTORICAL RESULTS - 03/13/2014 6:37 AM CDT NEGATIVE: ??0.00 - 0.10 NG/ML INDETERMINATE: ??0.11 - 0.50 NG/ML POSITIVE: ??GREATER THAN 0.50 NG/ML us Yesenia Omlos MD LAB BLOOD ORDERABLES Jennifer l Result Performing Organization Address [facility] de Phone Number HISTORICAL RESULTS * Discharge Laboratory Cumulative Report (03/13/2014 12:00 AM CDT) 03/13/2014 Narrative HISTORICAL RESULTS - 03/14/2014 2:40 AM CDT Patient No: [id number] ? [facility] Patient Name: TRESSA RODAS ? [facility] Healthcare Age: 59 YRS ?: 1955 ?Sex:F ?[address] )[phone] ?? Adm Dt: 03/13/2014 ?[place] ??[address] Created: 03/14/2014 ??0240 ?? Pt. Type: E ? Discharge Dt: 03/13/2014 ? Pathologists: Emilee Cullen MD Admit Dr. Toro Dr: YESENIA OLMOS MD ? BLOOD CELL COUNTS ?Collection Date: ?03/13/14 ?Collection Time: ?1054 ? Ref Range: ?? Units: [4.00-10.50] /CMM ? WBC X 10^3 ?7.67 [4.20-5.40] ??/CMM ? RBC X 10^6 ?4.12 L [12.0-16.0] ??G/DL ? HGB ? 12.3 [37.0-47.0] ??% ?HCT ? 38.2 [77.0-97.0] ??FL ? MCV ? 92.7 [23.0-34.0] ??PG ? MCH ? 29.9 [32.0-36.0] ??% ?MCHC ?32.2 [11.5-14.5] ??% ?RDW ? 14.9 H [150-400] ?? /CMM ? PLT X 10^3 ? 417 H ?BLOOD CELL DIFFERENTIAL ?Collection Date: ?03/13/14 ?Collection Time: ?1054 ? Ref Range: ?? Units: [54.0-69.0] ??% ?NEUTROPHILS ? 69.4 H [25.0-33.0] ??% ?LYMPHOCYTES ? 18.4 L [0.0-13.0] ??% ?MONOCYTES ? 10.0 [0.0-10.0] ??% ?EOSINOPHILS ?0.9 [0.0-1.0] ?? % ?BASOPHILS ?1.2 H ? /CMM ? A LYMPHOCYTE ? 1.4 [0.0-1.0] ?? % ?IMM GRAN % ? 0.1 [0.00-0.02] ??/CMM ? A IMM GRAN ?0.01 [1.1-1.9] ?? /CMM ? A MONOCYTE ? 0.8 L [1.4-6.5] ?? /CMM ? A NEUTROPHIL ? 5.3 [0.0-0.7] ?? /CMM ? A EOSINOPHIL ? 0.1 [0.0-0.2] ?? /CMM ? A BASOPHIL ? 0.1 Footnotes and Symbols: L = Low, H = High ?? CONTINUED ?Page: ?? 1 Patient No: [id number] ? [facility] Patient Name: TRESSA RODAS ? [facility] Healthcare Age: 59 YRS ?: 1955 ?Sex:F ?[address] )[phone] ?? Adm Dt: 03/13/2014 ?[place] ??[address] Created: 03/14/2014 ??0240 ?? Pt. Type: E ? Discharge Dt: 03/13/2014 ? Pathologists: Emilee Cullen MD Admit Dr. Toro Dr: YESENIA OLMOS MD ? GENERAL CHEMISTRY ?Collection Date: ?03/13/14 ?Collection Time: ?1054 ? Ref Range: ?? Units: [< ?100] ?? pg/ml ?BNP ?289 Hf [134-143] ?? MMOL/L ? SODIUM ? 140 [3.4-5.0] ?? MMOL/L ? POTASSIUM ?4.0 [99.0-108.0] MMOL/L ? CHLORIDE ? 105.0 [23.0-32.0] ??MMOL/L ? TOTAL CO2 ? 24.6 ?? [7-14] ?MMOL/L ? ANION GAP ? 14 ??[70-199] ?? MG/DL ?GLUCOSE ?186 f [6.4-8.0] ?? G/DL ? TOTAL PROTEIN ?7.5 [3.3-4.5] ?? G/DL ? ALBUMIN ?3.1 L [1.1-1.8] ?A/G RATIO ?0.7 L [8.6-9.8] ?? MG/DL ?CALCIUM ?9.1 [0.0-1.1] ?? MG/DL ?BILI TOTAL ? 0.5 ??[44-125] ?? U/L ?ALK PHOS ? 169 H ?? [5-40] ?U/L ?AST(SGOT) ? 18 f ??[15-70] ?U/L ?ALT(SGPT) ? 37 f [6.0-23.0] ??MG/DL ?BUN ? 22.0 ??[10-20] ? B/C RATIO ? 21 H Footnotes and Symbols: L = Low, H = High, f = Footnote BNP (06/05/08 -- Current) BNP REFERENCE RANGE <100 pg/ml GLUCOSE (07/29/13 -- Current) Note:The glucose is assumed non fasting Fastin-99 mg/dl Random: 70-199 mg/dl Either a fasting glucose > 126 mg/dL or a random glucose > 200 mg/dL plus symptoms is diagnostic of diabetes when confirmed on another day. Fasting values > 100 mg/dl but < 125 mg/dL are diagnostic of impaired fasting glucose. New reference ranges implemented 07/07/2013. AST(SGOT) (01/08/14 -- Current) ALT(SGPT) (03/18/13 -- Current) ?? CONTINUED ?Page: ?? 2 Patient No: [id number] ? [facility] Patient Name: TRESSA RODAS ? [facility] Healthcare Age: 59 YRS ?: 1955 ?Sex:F ?[address] )[phone] ?? Adm Dt: 03/13/2014 ?[place] ??[address] Created: 03/14/2014 ??0240 ?? Pt. Type: E ? Discharge Dt: 03/13/2014 ? Pathologists: Emilee Cullen MD Admit Attend Dr: YESENIA OLMOS MD ? GENERAL CHEMISTRY ?Collection Date: ?03/13/14 ?Collection Time: ?1054 ? Ref Range: ?? Units: [0.60-1.30] ??MG/DL ?CREATININE ?1.06 [1.5-2.2] ?? MG/DL ?MAGNESIUM ?2.0 ? CARDIAC CHEMISTRY ?Collection Date: ?07/18/14 ?Collection Time: ?1054 ? Ref Range: ?? Units: [0.00-0.10] ??NG/ML ?TROPONIN I ? <0.04 f Footnotes and Symbols: f = Footnote TROPONIN I (06/22/11 -- Current) NEGATIVE: ??0.00 - 0.10 NG/ML INDETERMINATE: ??0.11 - 0.50 NG/ML POSITIVE: ??GREATER THAN 0.50 NG/ML ?? CONTINUED ?Page: ?? 3 Patient No: [id number] ? [facility] Patient Name: TRESSA RODAS ? [facility] Healthcare Age: 59 YRS ?: 1955 ?Sex:F ?[address] )[phone] ?? Adm Dt: 03/13/2014 ?[place], [place] ??[address] Created: 03/14/2014 ??0240 ?? Pt. Type: E ? Discharge Dt: 03/13/2014 ? Pathologists: Emilee Cullen MD Admit Attend Dr: YESENIA OLMOS MD ?COAGULATION ? Units: ?? PROTIME ?INR ?D-DIMER ?APTT PAT ? Low: ??[10.9-14.8] ? [0.00-0.50] ??[< ?? 36.0] ? Ref Range: ? SECS ? UG/ML ? SECS ? 03/13/141053 ?13.5 ? 1.07 f ? 3.73 Hf ?24.0 Footnotes and Symbols: H = High, f = Footnote INR (03/15/00 -- Current) RECOMMENDED RANGES FOR PROTIME INR: NOTE: THE INR HAS BEEN VALIDATED ONLY FOR PATIENTS ON STABLE ORAL ?ANTICOAGULANT THERAPY. ?2.0 - 3.0 ??PROPHYLAXIS OF VENOUS THROMBOSIS (HIGH RISK SURGERY) ?2.0 - 3.0 ??TREATMENT OF VENOUS THROMBOSIS ?2.0 - 3.0 ??TREATMENT OF PULMONARY EMBOLISM ?2.0 - 3.0 ??PREVENTION OF SYSTEMIC EMBOLISM ? TISSUE HEART VALVES ? AMI (TO PREVENT SYSTEMIC EMBOLISM)* ? VALVULAR HEART DISEASE ? ATRIAL FIBRILLATION ?2.5 - 3.5 ??MECHANICAL PROSTHETIC VALVES (HIGH RISK) ?2.0 - 3.0 ??BILEAFLET MECHANICAL VALVE IN AORTIC POSITION *If oral anticoagulant therapy is elected to prevent recurrent myocardial infarction, an INR of 2.5 to 3.5 is recommended, consistent with Food and Drug Administration recommendations. D-DIMER (09/08/10 -- Current) Units of Measure = ug/ml FEU The D-Dimer result should not be used as the sole indicator to rule in or exclude a diagnosis of Pulmonary Embolism or Deep Vein Thrombosis. ?? END OF CHART ? Page: ?? 4 us Historical Provider LAB BLOOD ORDERABLES Jennifer doran Result HISTORICAL RESULTS * ELECTROCARDIOGRAPHY (ECG) (03/13/2014) Narrative 03/13/2014 Ordered by an unspecified provider. us Historical Provider ECG ORDERABLES Final Res ult documented in this encounter Visit Diagnoses Diagnosis Shortness of breath Anxiety state Anxiety state, unspecified Chest pain Unspecified chest pain documented in this encounter
--- OUTSIDE RECORDS SUMMARY | 2024-08-30 19:00 | XMS_ITS | Encounter Summary ---
Author Organization [facility] Facility Care Team Providers Care Golf Player Assistant Name Role Phone Unavailable Primary Care Provider Unavailabl e Encounter Details Date Type Department Care Team (Late st Contact Info) Description 09/26/2013 - 09/26/2013 11:59 PM COMPLAINT ANALYST Hospital Encounter [facility] Dhiraj Cox MD [address] [address] Coronary atherosclerosis; Other and unspecified angina pectoris Social History Tobacco Use Types Packs/Day Years Used Date Smoking Tobacco: Never Assessed Comments Unknown Sex and Gender Information Value Date Recorded Sex Assigned at Not on file 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
--- OUTSIDE RECORDS SUMMARY | 2024-08-30 19:00 | XMS_ITS | Encounter Summary ---
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 Name Role Phone Unavailable Primary Care Provider Unavailabl e Encounter Details Date Type Department Care Team (Latest Contact Info) Description 05/07/2013 8:16 AM CDT - 05/08/2013 10:07 AM CDT Hospital Encounter [facility] Radha Alcantara MD [address] [place] [id number] Coronary atherosclerosis of minto coronary artery; Total occlusion of coronary artery, chronic; Essential hypertension; Anxiety state Social History Tobacco Use Types Packs/Day Years Used Date Smoking Tobacco: Never Assessed Comments Unknown Sex and Gender Information Value Date Recorded Sex Assigned at Not on file Legal 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 Account: [id number] Room No: : 1955 Patient Type: [facility] Attend.: Radha Jimenez M.D. F.A.C.C. Admit Date: 05/07/2013 Dict.: Radha Jimenez M.D. F.A.C.C. Disch. Date: INDICATION The patient is a 58-year-old female who has noticed some shortness of breath for a few months. She thinks it is getting slightly worse. She thinks that she may also be not able to do as much at work. She does not have any typical crushing or heavy pain in the chest. She does occasionally experience jaw discomfort mainly at nighttime with and without exertion. She was recently hospitalized for atrial flutter. Dr. Us got her back to sinus rhythm with IV Cardizem drip. She ruled out for an TN. A stress echo was ordered as an outpatient basis. She came in for that stress echo this morning. She failed the stress echo with significant EKG changes early on in stage 1. Not only that, she had wall motion abnormality by echo suspicious for an LAD lesion. She is being admitted for cardiac catheterization. She never had a cardiac catheterization before. Did have an echocardiogram a long time ago when she was taking phen-phen. Apparently nothing was found. FAMILY HISTORY Mother of a heart attack at age 42. She was a big-time smoker. SMOKING One to two packs a day for 42 years. MEDICAL HISTORY 1. Hypertension for eight years. 2. Anxiety disorder. 3. Paroxysmal atrial flutter in March of 2013. PHYSICAL EXAMINATION In general, she is a moderately overweight female with blonde hair. She is alert and oriented x3. She denies any chest pain. There is no chest wall tenderness to palpation. Lungs: Good and equal airway exchange bilaterally. They are clear to auscultation bilaterally. Heart: Regular without any murmurs, gallops, or rubs. Extremities: No pedal edema. No focal weakness. ASSESSMENT AND PLAN This is a 58-year-old female with suspicious-sounding chest discomfort and an abnormal stress echo early on in stage 1. It is likely that she will have significant coronary artery disease. She and her significant other understand the risks to include the following but not limited to the following: , CVA, myocardial infarction, infection, vascular problems, dye reaction, dysrhythmias, pain, renal failure, need for urgent CABG or stent placement. Radiation risks also explained to the patient. Barbara Tafoya F.A.C.C.L/kg TD: 05/07/2013 11:47 Authenticated and Edited by Radha Jimenez MD On 05/09/13 8:25:29 AM documented in this encounter Plan of Treatment Not on file documented as of this encounter Procedures Procedure Name Priority Date/Time Associated Diagnosis Comments SERUM CREATINE KINASE (CK) MB CONFIRMATION Routine 05/08/2013 4:23 AM CDT SERUM BASIC METABOLIC PANEL Routine 05/08/2013 4:23 AM CDT BLOOD WBC CELL MORPHOLOGIC EXAM, AUTO Routine 05/08/2013 4:23 AM CDT BLOOD CELL COUNT (CBC) Routine 3 4:23 AM CDT ELECTROCARDIOGRAPHY (ECG) 05/08/2013 DISCHARGE LABORATORY CUMULATIVE REPORT Routine 05/08/2013 12:00 AM CDT SERUM CREATINE KINASE (CK) MB CONFIRMATION Routine 05/07/2013 8:18 PM CDT SERUM LIPID PANEL Routine 05/07/2013 12: 45 PM CDT SERUM CREATINE KINASE (CK) MB CONFIRMATION Routine 05/07/2013 12:45 PM CDT LEFT CORONARY ANGIOGRAPHY Routine 2012 12:20 PM CDT ELECTROCARDIOGRAPHY (ECG) 05/07/2013 documented in this encounter Results * Serum creatine kinase (CK) MB confirmation (05/08/2013 4:23 AM CDT) CK MB 1 0 - 5 ng/ml HISTORIC AL RESULTS Serum 05/08/2013 4:23 AM CDT Radha Jimenez MD LAB BLOOD ORDERABLES Final Re sult HISTORICAL RESULTS * (ABNORMAL) Serum basic metabolic panel (05/08/2013 4:23 AM CDT) BUN 16.0 6.0 - 23.0 mg/dl HISTORICAL RESULTS Sodium 138 134 - 143 mmol/L HISTORICAL RESULTS Potassium, sr 4.7 3.4 - 5.0 mmol/L HISTORICAL RESULTS Chloride 103 99 - 108 mmol/L HISTORICAL RESULTS CO2 29 23 - 32 mmol/L HISTORICAL RESULTS Glucose, fasting 112(H) 70 - 110 mg/dl HISTORICAL RESULTS Creatinine 0.92 0.60 - 1.30 mg/dl HISTORICAL RESULTS Comment: eGFR:67 ml/min/1.73sq.m if non -Fijian. eGFR: >70 ml/min/1.73sq.m if -Fijian. AVE GFR for 50-59 yr. age group: ??93 ml/min/1.73sq.m Calculated using MDRD Equation BUN/creat ratio 17 10 - 20 HIST ORICAL RESULTS A. gap 11 7 - 14 mmol/L HISTORICAL RESULTS Osmo, calc 278 275 - 295 mOsm/kg HISTORICAL RESULTS Calcium 9.0 8.6 - 9.8 mg/dl HISTORICAL RESULTS Serum 05/08/2013 4:23 AM CDT Radha Jimenez MD LAB BLOOD ORDERABLES Final Re sult HISTORICAL RESULTS * Blood cell count (CBC) (05/08/2013 4:23 AM CDT) WBC 9.6 4.0 - 10.5 K/cumm HISTORICAL RESULTS RBC 4.43 4.20 - 5.40 M/cumm HISTORICAL RESULTS Hgb 13.8 12.0 - 16.0 g/dl HISTORICAL RESULTS Hct 42.1 37.0 - 47.0 % HISTORICAL RESULTS MCV 95.0 77.0 - 97.0 fl HISTORICAL RESULTS MCH 31.2 23.0 - 34.0 pg HISTORICAL RESULTS MCHC 32.8 32.0 - 36.0 g/dl HISTORICAL RESULTS Rdw 12.9 11.5 - 14.5 % HISTORICAL RESULTS Platelets 290 150 - 451 K/cumm HISTORICAL RESULTS MPV 9.9 7.4 - 10.4 fl HISTORICAL RESULTS Blood specimen (specimen) 05/08/2013 4:23 AM CDT Radha Jimenez MD LAB BLOOD ORDERABLES Final Re sult Performing Organization Address City/[facility] Co de Phone Number HISTORICAL RESULTS * (ABNORMAL) Blood WBC cell morphologic exam, auto (05/08/2013 4:23 AM CDT) Lymphocytes 28.8 25.0 - 33.0 % HISTORICAL RESULTS Monos 10.6 1.0 - 13.0 % HISTORICAL RESULTS Neutrophils 56.2 54.0 - 69.0 % HISTORICAL RESULTS Eosinophils 3.9 0.0 - 10.0 % HISTORICAL RESULTS Basophils 0.3 0.0 - 1.0 % HISTORICAL RESULTS Immature granulocytes 0.2 0.0 - 1.0 % HISTORICAL RESULTS Lymphocytes, abs 2.8 1.2 - 3.4 K/cumm HISTORICAL RESULTS Monocytes, absolute 1.0(L) 1.1 - 1.9 K/cumm HISTORICAL RESULTS Neutrophils, abs 5.4 1.4 - 6.5 K/cumm HISTORICAL RESULTS Eosinophils, abs 0.4 0.0 - 0.7 cells/cumm HISTORICAL RESULTS Basophils, abs 0.0 0.0 - 0.2 K/cumm HISTORICAL RESULTS Immature granulocyte, abs 0.0 0.0 - 0.0 K/cumm HISTORICAL RESULTS Blood specimen (specimen) 05/08/2013 4:23 AM CDT Radha Jimenez MD LAB BLOOD ORDERABLES Final Re sult HISTORICAL RESULTS * Discharge Laboratory Cumulative Report (05/08/2013 12:00 AM CDT) 05/08/2013 Narrative HISTORICAL RESULTS - 05/09/2013 12:27 AM CDT Patient No: [id number] ? [facility] Patient Name: TRESSA RODAS ? [facility] Age: 58 YRS ?: 1955 ?Sex:F ?[address] )[id number] ?? Adm Dt: 05/07/2013 ?[place], [place] ??[address] Created: 05/09/2013 ??0027 ?? Pt. Type: U ? Discharge Dt: 05/08/2013 ? Pathologists: Emilee Cullen MD Admit Attend Dr: RADHA JIMENEZ MD ? BLOOD CELL COUNTS ?Collection Date: ?05/08/13 ?Collection Time: ?0423 ? Ref Range: ?? Units: [4.00-10.50] /CMM ? WBC X 10^3 ?9.55 [4.20-5.40] ??/CMM ? RBC X 10^6 ?4.43 [12.0-16.0] ??G/DL ? HGB ? 13.8 [37.0-47.0] ??% ?HCT ? 42.1 [77.0-97.0] ??FL ? MCV ? 95.0 [23.0-34.0] ??PG ? MCH ? 31.2 [32.0-36.0] ??% ?MCHC ?32.8 [11.5-14.5] ??% ?RDW ? 12.9 [150-451] ?? /CMM ? PLT X 10^3 ? 290 ?BLOOD CELL DIFFERENTIAL ?Collection Date: ?05/08/13 ?Collection Time: ?0423 ? Ref Range: ?? Units: [54.0-69.0] ??% ?NEUTROPHILS ? 56.2 [25.0-33.0] ??% ?LYMPHOCYTES ? 28.8 [1.0-13.0] ??% ?MONOCYTES ? 10.6 [0.0-10.0] ??% ?EOSINOPHILS ?3.9 [0.0-1.0] ?? % ?BASOPHILS ?0.3 ? /CMM ? A LYMPHOCYTE ? 2.8 [0.0-1.0] ?? % ?IMM GRAN % ? 0.2 [0.00-0.02] ??/CMM ? A IMM GRAN ?0.02 [1.1-1.9] ?? /CMM ? A MONOCYTE ? 1.0 L [1.4-6.5] ?? /CMM ? A NEUTROPHIL ? 5.4 [0.0-0.7] ?? /CMM ? A EOSINOPHIL ? 0.4 [0.0-0.2] ?? /CMM ? A BASOPHIL ? 0.0 Footnotes and Symbols: L = Low ?? CONTINUED ?Page: ?? 1 Patient No: [id number] ? [facility] Patient Name: TRESSA RODAS ? [facility] Age: 58 YRS ?: 1955 ?Sex:F ?[address] )[id number] ?? Adm Dt: 05/07/2013 ?[place] ??[id number] Created: 05/09/2013 ??0027 ?? Pt. Type: U ? Discharge Dt: 05/08/2013 ? Pathologists: Emilee Cullen MD Admit Dr. Toro Dr: RADHA JIMENEZ MD ? GENERAL CHEMISTRY ?Collection Date: ?05/08/13 ?Collection Time: ?0423 ? Ref Range: ?? Units: [134-143] ?? MMOL/L ? SODIUM ? 138 [3.4-5.0] ?? MMOL/L ? POTASSIUM ?4.7 [99.0-108.0] MMOL/L ? CHLORIDE ? 103.0 [23.0-32.0] ??MMOL/L ? TOTAL CO2 ? 28.6 ?? [7-14] ?MMOL/L ? ANION GAP ? 11 ??[70-110] ?? MG/DL ?GLUCOSE FASTING ?112 H [275-295] ?? MOSM/K ? CALCULATED OSMO ?278 [8.6-9.8] ?? MG/DL ?CALCIUM ?9.0 [6.0-23.0] ??MG/DL ?BUN ? 16.0 ??[10-20] ? B/C RATIO ? 17 [0.60-1.30] ??MG/DL ?CREATININE ?0.92 f ?05/08/13 0423 eGFR:67 ml/min/1.73sq.m if non -Fijian. eGFR: >70 ml/min/1.73sq.m if -Fijian. AVE GFR for 50-59 yr. age group: ??93 ml/min/1.73sq.m Calculated using MDRD Equation FOOTNOTE ADDED ON ?? 05/08/13 ?? AT 0531 BY 999 Footnotes and Symbols: H = High, f = Footnote ?? CONTINUED ?Page: ?? 2 Patient No: [id number] ? [facility] Patient Name: TRESSA RODAS ? [facility] Age: 58 YRS ?: 1955 ?Sex:F ?[address] )[id number] ?? Adm Dt: 05/07/2013 ?[place] ??[id number] Created: 05/09/2013 ??0027 ?? Pt. Type: U ? Discharge Dt: 05/08/2013 ? Pathologists: Emilee Cullen MD Admit Attend Dr: RADHA JIMENEZ MD ? CARDIAC CHEMISTRY ?Collection Date: ?05/08/13 ? 05/07/13 ?Collection Time: ?0423 ? 2018 ? Ref Range: ?? Units: ?? [0-5] ? NG/ML ?CKMB ? 1 ?1 ?Collection Date: ?05/07/13 ?Collection Time: ?1245 ? Ref Range: ?? Units: ?? [0-5] ? NG/ML ?CKMB ? 1 ?LIPIDS ?Collection Date: ?05/07/13 ?Collection Time: ?1245 ? Ref Range: ?? Units: ? MG/DL ?CHOLESTEROL ?204 f ? MG/DL ?HDL CHOLESTEROL ? 44 f Footnotes and Symbols: f = Footnote CHOLESTEROL (09/08/10 -- Current) DESIRABLE = LESS THAN 200 MG/DL BORDERLINE HIGH = 200-239 MG/DL HIGH= GREATER THAN 239 MG/DL HDL CHOLESTEROL (09/08/10 -- Current) LOW HDL CHOLESTEROL = Less than 40 mg/dL NORMAL HDL CHOLESTEROL = 40-59 mg/dL HIGH HDL CHOLESTEROL = Greater than 59 mg/dL ?? CONTINUED ?Page: ?? 3 Patient No: [id number] ? [facility] Patient Name: TRESSA RODAS ? [facility] Age: 58 YRS ?: 1955 ?Sex:F ?[address] )[id number] ?? Adm Dt: 05/07/2013 ?[place], [place] ??[address] Created: 05/09/2013 ??0027 ?? Pt. Type: U ? Discharge Dt: 05/08/2013 ? Pathologists: Emilee Cullen MD Admit Attend Dr: RADHA JIMENEZ MD ?LIPIDS ?Collection Date: ?05/07/13 ?Collection Time: ?1245 ? Ref Range: ?? Units: ? MG/DL ?TRIGLYCERIDES ?128 f ?05/07/13 1245 Current guidelines recommend that lipid screen be ??performed on fasting blood samples for heart risk stratification. FOOTNOTE ADDED ON ?? 05/07/13 ?? AT 1327 BY 999 ? MG/DL ?NON HDL CALC ? 160 f ?LDL CHOL CALC ?134 f Footnotes and Symbols: f = Footnote TRIGLYCERIDES (12/11/12 -- Current) NORMAL = LESS THAN 150 MG/DL BORDERLINE HIGH = 150-199 MG/DL HIGH = 200-499 MG/DL VERY HIGH = GREATER THAN OR EQUAL TO 500 MG/DL NON HDL CALC (12/02/12 -- Current) OPTIMAL LESS THAN 130 LOW RISK 130 -159 MODERATE RISK 160 - 189 HIGH RISK GREATER THAN OR EQUAL TO 190 LDL CHOL CALC (12/12/12 -- Current) LESS THAN 100 MG/DL OPTIMAL 100 - 129 MG/DL NEAR OPTIMAL / ABOVE OPTIMAL 130 - 159 MG/DL BORDERLINE HIGH 160 - 189 MG/DL HIGH GREATER THAN OR = 190 MG/DL VERY HIGH LDL VALUES ARE NOT VALID WHEN THE TOTAL TRIGLYCERIDE IS GREATER THAN 300 MG/DL. ?? END OF CHART ? Page: ?? 4 us Historical Provider LAB BLOOD ORDERABLES Jennifer l Result Performing Organization Address City/[facility] Co de Phone Number HISTORICAL RESULTS * ELECTROCARDIOGRAPHY (ECG) (05/08/2013) Narrative 05/08/2013 Ordered by an unspecified provider. Historical Provider MD ECG ORDERABLES Final Res ult * Serum creatine kinase (CK) MB confirmation (05/07/2013 8:18 PM CDT) CK MB 1 0 - 5 ng/ml HISTORIC AL RESULTS Serum 05/07/2013 8:18 PM CDT Radha Jimenez MD LAB BLOOD ORDERABLES Final Re sult Performing Organization Address [facility] Co de Phone Number HISTORICAL RESULTS * Serum creatine kinase (CK) MB confirmation (05/07/2013 12:45 PM CDT) CK MB 1 0 - 5 ng/ml HISTORIC AL RESULTS Serum 05/07/2013 12:4 5 PM CDT Radha Jimenez MD LAB BLOOD ORDERABLES Final Re sult Performing Organization Address City/[facility] Co de Phone Number HISTORICAL RESULTS * Serum lipid panel (05/07/2013 12:45 PM CDT) Cholesterol 204 mg/dl HISTORIC AL RESULTS Comment: DESIRABLE = LESS THAN 200 MG/DL BORDERLINE HIGH = 200-239 MG/DL HIGH= GREATER THAN 239 MG/DL Triglycerides 128 mg/dl HISTOR ICAL RESULTS Comment: Current guidelines recommend that lipid screen be performed on fasting blood samples for heart risk stratification. NORMAL = LESS THAN 150 MG/DL BORDERLINE HIGH = 150-199 MG/DL HIGH = 200-499 MG/DL VERY HIGH = GREATER THAN OR EQUAL TO 500 MG/DL HDL 44 mg/dl HISTORICAL RESULTS Comment: LOW HDL CHOLESTEROL = Less than 40 mg/dL NORMAL HDL CHOLESTEROL = 40-59 mg/dL HIGH HDL CHOLESTEROL = Greater than 59 mg/dL Non-HDL cholesterol, calculated 160 mg/dl HISTORICAL RESULTS Comment: OPTIMAL LESS THAN 130 LOW RISK 130 -159 MODERATE RISK 160 - 189 HIGH RISK GREATER THAN OR EQUAL TO 190 LDL, calculated 134 HIST ORICAL RESULTS Comment: LESS THAN 100 MG/DL OPTIMAL 100 - 129 MG/DL NEAR OPTIMAL / ABOVE OPTIMAL 130 - 159 MG/DL BORDERLINE HIGH 160 - 189 MG/DL HIGH GREATER THAN OR = 190 MG/DL VERY HIGH LDL VALUES ARE NOT VALID WHEN THE TOTAL TRIGLYCERIDE IS GREATER THAN 300 MG/DL. Serum 05/07/2013 12:4 5 PM CDT us Radha Jimenez MD LAB BLOOD ORDERABLES Final Re sult HISTORICAL RESULTS * CORONARY ANGIOGRAPHY [id number] (05/07/2013 12:20 PM CDT) Anatomical Region Laterality Modality X-Ray Angiograph y 05/07/2013 12:2 0 PM CDT Narrative 05/09/2013 8:45 AM CDT HEART CATH ??Acc#: ??[id number] DATE OF EXAM: ??May 07 2013 CLINICAL HISTORY: RESULT: INDICATION: ??Tressa Rodas is a 58 year old female with worsening shortness of breath. ??She has also had some exertional and nonexertional jaw discomfort. ??Recent atrial flutter also. ??Stress echo showed wall motion abnormality in the distal septum and there was some EKG changes consistent with ischemia. ??Cardiac catheterization was offered. ??She understands the risks of the cardiac cath to include the following, but not limited to the following: ??, CVA, myocardial infarction, infection, vascular problems, dye reaction, dysrhythmias, pain, bleeding, renal failure, need for urgent CABG or stent placement. ??Radiation exposure also discussed with the patient. PROCEDURE: ??The patient was brought down to the Cardiac Senior Network Engineer where her right groin was prepped and draped in the usual fashion. ??After infiltration of 1% Lidocaine a 6 Ivorian femoral artery sheath was placed over a J-tipped guidewire without difficulties. ??Next a 5 Ivorian JR4 catheter was placed in the left ventricle for hemodynamics and pullback. The same catheter was then used for right coronary artery injection done in multiple views. ??The left main was also injected in multiple views using a 5 Ivorian JL4 catheter. ??Finally, a 5 Ivorian angled pigtail catheter was used for left ventriculography which was performed in the 30 PECK position. We elected on percutaneous intervention to the mid circumflex territory. Angiomax was given IV and bolus as per usual protocol. ??The guiding catheter was a 6 Ivorian JL4 guiding catheter. ??A Luge guidewire was then placed in the circumflex, through the lesion and parked in the distal circumflex without any difficulties. ??Direct stenting was performed carefully using a Xience 2.5 x 18 mm stent. ??It was fully inflated to 14 atmospheres with excellent results. ??There was no chest pain or hemodynamic problems. ??EKG looked fine. ??No evidence of dissection or loss of branches or distal embolization. ??We concluded the procedure with an Angio-Seal device followed by manual pressure for 5-10 minutes. Fluoro time was 4.7 minutes with a total dye load of 153 ml of Optiray 320. FINDINGS 1. Hemodynamics as follows: 1. Hemodynamics as follows: Left ventricular systolic pressure ??125 mmHg Left ventricular end diastolic pressure 10 mmHg Aortic systolic pressure ?? 125 mmHg Aortic diastolic pressure ?? 65 mmHg There were no gradients across the aortic valve upon pullback. 2. Injection of the right coronary artery reveals this to be a right dominant system. ??There is a large PDA with 50% near ostial narrowing. Collateralization from the right PDA to the LAD is noted but these are small collaterals. ??The LAD appears to be small size also. ??There is a medium 1st posterolateral branch and a large 2nd posterolateral branch downstream. ??Diffuse 25% narrowings from proximal to distal RCA as per diagram. 3. Injection of the left main reveals no ramus. ??The LAD is totally occluded after the large branching 1st diagonal artery. 4. Circumflex also comes from the left main and has 75% mid circumflex stenosis. ??There is a medium to large 1st OM, medium 2nd OM and a large 3rd OM. 5. Left ventriculography reveals normal global LV function with hypokinesis of the anterior wall. ??No mitral regurgitation. IMPRESSION: 1. TWO VESSEL CORONARY ARTERY DISEASE IN THIS RIGHT DOMINANT SYSTEM WITH COMPLETE OCCLUSION OF THE MID LAD AND 75% MID CIRCUMFLEX STENOSIS. ??THE CIRCUMFLEX WAS GIVEN A XIENCE 2.5 X 18 MM STENT WITH GOOD RESULTS. ??SOME COLLATERALIZATION NOTED FROM THE RIGHT PDA TO THE LAD. 2. NO MITRAL REGURGITATION. 3. NORMAL GLOBAL LV FUNCTION WITH HYPOKINESIS OF THE ANTERIOR WALL. Diet, exercise and therapeutic lifestyle changes discussed with the patient. ??She will need anti-coagulant agent for at least one year and preferably long-term. Interpreting Physician: ??DR RADHA JIMENEZ M.D. ??Read on: ??May 07 2013 3:01P Transcribed by: ??carissa ??On: May 07 2013 ??3:01P Approved Electronically by: ??JOVANI Jimenez, DR GARCIA ??on: ??May 09 2013 8:45A Ordering DR: DR RADHA JIMENEZ Attending DR: DR RADHA JIEMNEZ Procedure Note Provider, MD Homero - 12/27/2016 HEART CATH Acc#: [id number] DATE OF EXAM: May 07 2013 CLINICAL HISTORY: RESULT: INDICATION: Tressa Rodas is a 58 year old female with worseningshortness of breath. She has also had some exertional and nonexertionaljaw discomfort. Recent atrial flutter also. Stress echo showed wallmotion abnormality in the distal septum and there was some EKG changesconsistent with ischemia. Cardiac catheterization was offered. Sheunderstands the risks of the cardiac cath to include the following, but not limited to the following: , CVA, myocardial infarction,infection, vascular problems, dye reaction, dysrhythmias, pain, bleeding,renal failure, need for urgent CABG or stent placement. Radiationexposure also discussed with the patient. PROCEDURE: The patient was brought down to the Cardiac Senior Network Engineer where herright groin was prepped and draped in the usual fashion. Afterinfiltration of 1% Lidocaine a 6 Ivorian femoral artery sheath was placedover a J-tipped guidewire without difficulties. Next a 5 Ivorian [id number] was placed in the left ventricle for hemodynamics and pullback.The same catheter was then used for right coronary artery injection donein multiple views. The left main was also injected in multiple viewsusing a 5 Ivorian JL4 catheter. Finally, a 5 Ivorian angled pigtailcatheter was used for left ventriculography which was performed in the 30RAO position. We elected on percutaneous intervention to the midcircumflex territory. Angiomax was given IV and bolus as per usualprotocol. The guiding catheter was a 6 Ivorian JL4 guiding catheter. ALuge guidewire was then placed in the circumflex, through the lesion andparked in the distal circumflex without any difficulties. Direct stentingwas performed carefully using a Xience 2.5 x 18 mm stent. It was fullyinflated to 14 atmospheres with excellent results. There was no chestpain or hemodynamic problems. EKG looked fine. No evidence of dissectionor loss of branches or distal embolization. We concluded the procedurewith an Angio-Seal device followed by manual pressure for 5-10 minutes.Fluoro time was 4.7 minutes with a total dye load of 153 ml of [id number]. FINDINGS 1. Hemodynamics as follows: 1. Hemodynamics as follows: Left ventricular systolic pressure 125 mmHgLeft ventricular end diastolic pressure 10 mmHg Aortic systolic [id number] mmHg Aortic diastolic pressure 65 mmHg There were no gradientsacross the aortic valve upon pullback. 2. Injection of the right coronary artery reveals this to be a rightdominant system. There is a large PDA with 50% near ostial narrowing.Collateralization from the right PDA to the LAD is noted but these aresmall collaterals. The LAD appears to be small size also. There is amedium 1st posterolateral branch and a large 2nd posterolateral branchdownstream. Diffuse 25% narrowings from proximal to distal RCA as perdiagram. 3. Injection of the left main reveals no ramus. The LAD is totallyoccluded after the large branching 1st diagonal artery. 4. Circumflex also comes from the left main and has 75% mid circumflexstenosis. There is a medium to large 1st OM, medium 2nd OM and a [id number] OM. 5. Left ventriculography reveals normal global LV function withhypokinesis of the anterior wall. No mitral regurgitation. IMPRESSION: 1. TWO VESSEL CORONARY ARTERY DISEASE IN THIS RIGHT DOMINANT SYSTEM WITHCOMPLETE OCCLUSION OF THE MID LAD AND 75% MID CIRCUMFLEX STENOSIS. THECIRCUMFLEX WAS GIVEN A XIENCE 2.5 X 18 MM STENT WITH GOOD RESULTS. SOMECOLLATERALIZATION NOTED FROM THE RIGHT PDA TO THE LAD. 2. NO MITRAL REGURGITATION. 3. NORMAL GLOBAL LV FUNCTION WITH HYPOKINESIS OF THE ANTERIOR WALL. Diet,exercise and therapeutic lifestyle changes discussed with the patient.She will need anti- coagulant agent for at least one year and preferablylong-term. Interpreting Physician: DR RADHA JIMENEZ M.D. Read on: May 07 20133:01P Transcribed by: carissa On: May 07 2013 3:01P Approved Electronically by: JOVANI Jimenez, DR GARCIA on: May 09 20138:45A Ordering DR: DR RADHA JIMENEZ Attending DR: DR RADHA JIMENEZ us Historical Provider CV CARDIAC CATH PROCEDURE S Final Result * ELECTROCARDIOGRAPHY (ECG) (05/07/2013) Narrative 05/07/2013 Ordered by an unspecified provider. 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
--- OUTSIDE RECORDS SUMMARY | 2024-08-30 19:00 | XMS_ITS | Encounter Summary ---
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 - 07/18/2012 1:32 AM CAR UNLOADER Hospital Encounter [facility] Alexis Allen MD [address] [place] [id number] Other specified disorders of skin; Tobacco use disorder; Essential hypertension Social History Tobacco Use Types Packs/Day Years Used Date Smoking Tobacco: Never Assessed Comments Unknown Sex and Gender Information Value Date Recorded Sex Assigned at Not on file Legal Sex Female 3:00 AM CAR UNLOADER Gender Identity Not on file Sexual Orientation Not on file documented as of this encounter Plan of Treatment Not on file documented as of this encounter Visit Diagnoses Diagnosis Other specified disorders of skin Tobacco use disorder Essential hypertension Unspecified essential hypertension documented in this encounter
--- OUTSIDE RECORDS SUMMARY | 2024-08-30 19:00 | XMS_ITS | Encounter Summary ---
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 - 08/29/2013 4:00 PM [facility] Hospital Encounter [facility] [address] [address] Coronary atherosclerosis; Essential hypertension; Other and unspecified hyperlipidemia; Tobacco use disorder; Encounter for long-term (current) use of aspirin; Encounter for long-term (current) use of other medications Social History Tobacco Use Types Packs/Day Years Used Date Smoking Tobacco: Never Assessed Comments Unknown Sex and Gender Information Value Date Recorded Sex Assigned at Not on file Legal Sex Female 3:00 AM PIPELINES MANAGER Gender Identity Not on file Sexual Orientation Not on file documented as of this encounter Plan of Treatment Not on file documented as of this encounter Visit Diagnoses Diagnosis Coronary atherosclerosis Coronary atherosclerosis of unspecified type of vessel, [place] or graft Essential hypertension Unspecified essential hypertension Other and unspecified hyperlipidemia Tobacco use disorder Encounter for long-term (current) use of aspirin Encounter for long-term (current) use of other medications documented in this encounter
--- OUTSIDE RECORDS SUMMARY | 2024-08-30 19:00 | XMS_ITS | Encounter Summary ---
Author Organization [facility] Address [address] [place] [address] Care Team Providers Care Soil Science Teacher Name Role Phone Unavailable Primary Care Provider Unavailabl e Encounter Details Date Type Department Care Team (Late st Contact Info) Description 10/12/2010 3:18 PM AGENT SPA DESK - 10/12/2010 11:59 PM AGENT SPA DESK Hospital Encounter [facility] Social History Tobacco Use Types Packs/Day Years Used Date Smoking Tobacco: Never Assessed Comments Unknown Sex and Gender Information Value Date Recorded Sex Assigned at Not on file Legal Sex Female 3:00 AM AGENT SPA DESK Gender Identity Not on file Sexual Orientation Not on file documented as of this encounter Plan of Treatment Not on file documented as of this encounter Visit Diagnoses Not on filedocumented in this encounter
--- OUTSIDE RECORDS SUMMARY | 2024-08-30 19:00 | XMS_ITS | Encounter Summary ---
Author Organization [facility] Healthcare Address [address] [place] [address] Care Team Providers Care Silver Cleaner Name Role Phone Unavailable Primary Care Provider Unavailabl e Encounter Details Date Type Department Care Team ([facility] st Contact Info) Description 04/25/2013 11:19 AM CDT - 04/26/2013 1:08 PM CDT Hospital Encounter [facility] Asuncion Medina MD [address] [place] [id number] Atrial flutter (CMS/HCC) (HCC); Anxiety state; Essential hypertension; Tobacco use disorder Social History Tobacco Use Types Packs/Day Years Used Date Smoking Tobacco: Never Assessed Comments Unknown Sex and Gender Information Value Date Recorded Sex Assigned at Not on file Legal Sex Female 3:00 AM CMA Gender Identity Not on file Sexual Orientation Not on file documented as of this encounter Last Filed Vital Signs Vital Sign Reading Time Taken Comments Blood Pressure 115/71 04/26/2013 10:05 AM CDT Pulse 70 04/26/2013 10:05 AM CDT Temperature - - Respiratory Rate - - Oxygen Saturation - - Inhaled Oxygen Concentration - - Weight 93 kg (205 lb 0.4 oz) 04/26/2013 6:00 AM CDT Height 165.1 cm (5' 5 ) 04/25/2013 4:02 PM CDT Body Mass Index 34.12 04/25/2013 4:02 PM CDT documented in this encounter Discharge Summaries * ProviderHomero MD - 04/26/2013 12:00 AM CDT DISCHARGE SUMMARY - [facility] Patient: TRESSA RODAS Account: [id number] Room No: 259-02 : 1955 Patient Type: IP Attend.: Asuncion Medina M.D. Admit Date: 04/25/2013 Dict.: Asuncion Medina M.D. Disch. Date: 04/26/2013 DISCHARGE DIAGNOSES: 1. Atrial flutter. 2. Hypertension. 3. Tobacco abuse. 4. Anxiety HISTORY OF PRESENT ILLNESS: The patient is a 58-year old hypertensive smoker with a history of anxiety disorder who presented to the emergency room with complaints of lightheadedness and shaking. She was sitting at the kitchen table the day of admission feeling lightheaded and started almost shaking uncontrollably. She felt lightheaded and her daughter brought her to the emergency room for evaluation. She said she has been having periods of anxiety and takes Cymbalta. The anxiety is not precipitated by anything in particular. Sometimes she gets a funny sensation in her neck or jaw. Never exertional, never been associated with lightheadedness or shaking until today. Upon arrival to the emergency room she was found to be in atrial flutter, 2:1 block with a rate of 150, heart rate slowed to fibrillation/flutter with Diltiazem and she was placed on Diltiazem drip and transferred to Intensive Care Unit. She did not notice any palpitations, just lightheadedness. Complete history and physical is enumerated in her admitting history and physical. On admission EKG showed atrial flutter, nonspecific ST-T wave changes. Followup EKGs: Nonspecific ST-T wave changes with sinus rhythm, PACs. Chest x-ray: No active disease. BUN 19, sodium 137, potassium 4.7, chloride 104, total C02 27, glucose 131, creatinine .92, LFTS normal, hemoglobin 14.8, hematocrit 45, platelets 280, 52 segs. HOSPITAL COURSE: 1. Shortly after admission on the Diltiazem drip she converted to sinus rhythm and remained in sinus rhythm the remainder of her hospitalization. She was switched from the Diltiazem drip to the Diltiazem PO. She will maintain that as an outpatient. 2. Hypertension: With Diltiazem, pressure remained fine. She will remain off of the RAVEN inhibitor and follow up just with the Diltiazem. If need be, it can be reinstituted later. 3. Smoking: I encouraged her definitely to decrease or stop her smoking. She will follow up with her primary care physician. 4. Anxiety: Continue Cymbalta and Buspirone. DISCHARGE MEDICATIONS: Her complete list of discharge medications is enumerated in her medication reconciliation discharge order form. She will be taking Diltiazem and follow up with her primary care physician. She will have a stress echo and routine echocardiogram as an outpatient to rule out any precipitating causes. If she has recurrent episodes, may be a candidate for anticoagulation in the future also. TIME: This entire process took about 25 minutes to complete. Barbara Vaz/dp TD: 04/28/2013 09:02 Authenticated and Edited by Asuncion Medina MD On 04/28/13 9:18:49 PM documented in this encounter H&P Notes * Provider, MD Homero - 04/25/2013 12:00 AM CDT HISTORY AND PHYSICAL Patient: TRESSA RODAS Account: [id number] Room No: 259-02 : 1955 Patient Type: IP Attend.: Asuncion Medina M.D. Admit Date: 04/25/2013 Dict.: Asuncion Medina M.D. Disch. Date: CHIEF COMPLAINT: Lightheaded. HISTORY OF PRESENT ILLNESS: The patient is a 58-year-old hypertensive smoker with a history of anxiety disorder who presented to the emergency room with complaints of lightheadedness and shaking. She said she was sitting at the kitchen table on the a.m. of admission feeling lightheaded and then started almost shaking uncontrollably. She felt lightheaded and her daughter brought her to the emergency room for evaluation. She said she has periods of anxiety for which she takes Cymbalta for no apparent reason or precipitating factors, usually associated with a tight or funny sensation in her throat, and sometimes even gets jaw pain. They are never exertional and have never been associated with lightheadedness or severe shaking like she had today. On arrival to the emergency room here, she was found to be in atrial flutter, 2:1 block, with a rate of about 150, and her heart rate slowed to fib/flutter after Diltiazem x 2, and she was placed on a Diltiazem drip and transferred to the Intensive Care Unit for titration as needed after anticoagulation. She did not notice any definite palpitations, just the lightheadedness and shakiness. She has never, as stated, in the past had episodes of lightheadedness like she had today. She has been treated for hypertension with lisinopril for about three years. She does smoke a pack of cigarettes a day. She has a positive family history of coronary disease in her mother, who she said of a myocardial infarction at age 42. There is no history of hyperlipidemia to her knowledge. PAST MEDICAL HISTORY: Remarkable for the anxiety and hypertension as stated for which she takes Cymbalta and lisinopril. She has had a history of pneumonia in the distant past which she was hospitalized for. She has two older brothers living and well. REVIEW OF SYSTEMS CONSTITUTIONAL: She said her weight has been steadily increasing over the last couple of years. Her appetite is fine. No fever, no chills. EYES: No double vision or scotoma. MOUTH: No pharyngitis or laryngitis. PULMONARY: She has a smoker's cough, but no increased shortness of breath, cough, or fever. CARDIOVASCULAR: As per the present illness. She denied any chest pressure or palpitations. NO pedal edema. GI: No reflux, melena, hematochezia, or diarrhea. She has never had a colonoscopy. : No dysuria, no hematuria. MUSCULOSKELETAL: No particular joint discomfort. NEUROPSYCH: No seizures, no syncope. INTEGUMENT: No skin breakdown. PHYSICAL EXAMINATION TODAY: Her blood pressure now in the Intensive Care Unit is 104/60, the pulse is 64, sinus rhythm. NECK: No adenopathy, thyromegaly, or carotid bruits. LUNGS: The lungs are clear. CARDIOVASCULAR: No murmurs, gallops, rubs, or clicks. ABDOMEN: The abdomen is soft, nontender. EXTREMITIES: Without edema. Distal pulses are 2+. NEUROLOGIC: Cranial nerves II through XII are intact. No focal neurologic deficits. Her initial EKG showed the atrial flutter, nonspecific ST-T wave changes. A follow-up EKG showed nonspecific ST-T wave changes with sinus rhythm, PACs. Chest x-ray - No active disease on the AP film, reviewed by myself, but not officially read by radiology. LABORATORY: BUN 19, sodium 137, potassium 4.7, chloride 104, total CO2 of 27, glucose 131, creatinine 0.92. LFTs are normal. Hemoglobin 14.8, hematocrit 45, MCV of 92, platelets 280, white count 8.1. The magnesium is normal. The differential on the CBC is normal, 59 segs, 27 lymphs. The BNP is 57. ASSESSMENT 1. Atrial flutter, now in sinus rhythm. Check a thyroid profile, echocardiogram. At her age with the symptomatology she has had, she should probably get a stress test also. Serial enzymes will be drawn. She is on a Cardizem drip, and she has been anticoagulated. 2. Hypertension. Hold on the lisinopril with substitution of Diltiazem at this time. 3. Smoking. Try to decrease her smoking cessation. 4. Anxiety. Continue the Cymbalta. I am a little concerned if some of the symptomatology she has been having, though, could even be cardiac related; thus, she definitely needs further testing. She would be considered a CHADS 1, and if she maintains sinus rhythm, with the first documented episode she may not need long-term anticoagulation. We will see how she does, and probably seek a cardiology opinion also. Asuncion Medina M.D. JAREK/be TD: 04/25/2013 18:05 Authenticated by Asuncion Medina MD On 04/27/2013 04:41:08 PM documented in this encounter Plan of Treatment Not on file documented as of this encounter Procedures Procedure Name Priority Date/Time Associated Diagnosis Comments SERUM BASIC METABOLIC PANEL Routine 04/26/2013 4:30 AM CDT BLOOD WBC CELL MORPHOLOGIC EXAM, AUTO Routine 04/26/2013 4:30 AM CDT BLOOD CELL COUNT (CBC) Routine 3 4:30 AM CDT SERUM CREATINE KINASE (CK) MB CONFIRMATION Routine 04/26/2013 12:03 AM CDT DISCHARGE LABORATORY CUMULATIVE REPORT Routine 04/26/2013 12:00 AM CDT SERUM TROPONIN I Routine 04/25/2013 7:03 PM CDT SERUM THYROXINE (T4), FREE Routine 04/25 6:00 PM CDT SERUM THYROID-STIMULATING HORMONE (TSH) Routine 04/25/2013 6:00 PM CDT SERUM CREATINE KINASE (CK) MB CONFIRMATION Routine 04/25/2013 6:00 PM CDT SERUM TROPONIN I Routine 04/25/2013 1:00 PM CDT SERUM MAGNESIUM Routine 04/25/2013 12:08 PM CDT SERUM CREATINE KINASE (CK) MB CONFIRMATION Routine 04/25/2013 12:08 PM CDT SERUM COMPREHENSIVE METABOLIC PANEL Routine 04/25/2013 12:08 PM CDT PLASMA PROTHROMBIN TIME (PT) Routine 04/25/2013 12:08 PM CDT PLASMA PARTIAL THROMBOPLASTIN TIME (PTT) Routine 04/25/2013 12:08 PM CDT BLOOD WBC CELL MORPHOLOGIC EXAM, AUTO Routine 04/25/2013 12:08 PM CDT BLOOD CELL COUNT (CBC) Routine 3 12:08 PM CDT XR CHEST PORTABLE Routine 04/25/2013 12: 05 PM CDT SERUM TROPONIN I Routine 04/25/2013 7:08 AM CDT BLOOD B-TYPE NATRIURETIC PEPTIDE (BNP) Routine 04/25/2013 7:08 AM CDT ELECTROCARDIOGRAPHY (ECG) 04/25/2013 ELECTROCARDIOGRAPHY (ECG) 04/25/2013 MICROBIOLOGY SUMMARY Routine 04/25/2013 12:00 AM CDT documented in this encounter Results * (ABNORMAL) Serum basic metabolic panel (04/26/2013 4:30 AM CDT) BUN 17.0 6.0 - 23.0 mg/dl HISTORICAL RESULTS Sodium 138 134 - 143 mmol/L HISTORICAL RESULTS Potassium, sr 3.9 3.4 - 5.0 mmol/L HISTORICAL RESULTS Chloride 105 99 - 108 mmol/L HISTORICAL RESULTS CO2 27 23 - 32 mmol/L HISTORICAL RESULTS Glucose, fasting 119(H) 70 - 110 mg/dl HISTORICAL RESULTS Creatinine 0.84 0.60 - 1.30 mg/dl HISTORICAL RESULTS Comment: eGFR: >70 ml/min/1.73sq.m if non -Vincentian. eGFR: >70 ml/min/1.73sq.m if -Vincentian. AVE GFR for 50-59 yr. age group: ??93 ml/min/1.73sq.m Calculated using MDRD Equation BUN/creat ratio 20 10 - 20 HIST ORICAL RESULTS A. gap 10 7 - 14 mmol/L HISTORICAL RESULTS Osmo, calc 278 275 - 295 mOsm/kg HISTORICAL RESULTS Calcium 8.0(L) 8.6 - 9.8 mg/dl HISTORICAL RESULTS Serum 04/26/2013 4:30 AM CDT us Angie Lyn MD LAB BLOOD ORDERABLES Final Resu lt HISTORICAL RESULTS * Blood cell count (CBC) (04/26/2013 4:30 AM CDT) WBC 7.7 4.0 - 10.5 K/cumm HISTORICAL RESULTS RBC 4.43 4.20 - 5.40 M/cumm HISTORICAL RESULTS Hgb 13.4 12.0 - 16.0 g/dl HISTORICAL RESULTS Hct 41.6 37.0 - 47.0 % HISTORICAL RESULTS MCV 93.9 77.0 - 97.0 fl HISTORICAL RESULTS MCH 30.2 23.0 - 34.0 pg HISTORICAL RESULTS MCHC 32.2 32.0 - 36.0 g/dl HISTORICAL RESULTS Rdw 13.4 11.5 - 14.5 % HISTORICAL RESULTS Platelets 268 150 - 451 K/cumm HISTORICAL RESULTS MPV 10.0 7.4 - 10.4 fl HISTORICAL RESULTS Blood specimen (specimen) 04/26/2013 4:30 AM CDT us Angie Lyn MD LAB BLOOD ORDERABLES Final Resu lt HISTORICAL RESULTS * (ABNORMAL) Blood WBC cell morphologic exam, auto (04/26/2013 4:30 AM CDT) Lymphocytes 42.4(H) 25.0 - 33.0 % HISTORICAL RESULTS Monos 9.1 1.0 - 13.0 % HISTORICAL RESULTS Neutrophils 42.9(L) 54.0 - 69.0 % HISTORICAL RESULTS Eosinophils 4.7 0.0 - 10.0 % HISTORICAL RESULTS Basophils 0.6 0.0 - 1.0 % HISTORICAL RESULTS Immature granulocytes 0.3 0.0 - 1.0 % HISTORICAL RESULTS Lymphocytes, abs 3.3 1.2 - 3.4 K/cumm HISTORICAL RESULTS Monocytes, absolute 0.7(L) 1.1 - 1.9 K/cumm HISTORICAL RESULTS Neutrophils, abs 3.3 1.4 - 6.5 K/cumm HISTORICAL RESULTS Eosinophils, abs 0.4 0.0 - 0.7 cells/cum m HISTORICAL RESULTS Basophils, abs 0.1 0.0 - 0.2 K/cumm HISTORICAL RESULTS Immature granulocyte, abs 0.0 0.0 - 0.0 K/cumm HISTORICAL RESULTS Blood specimen (specimen) 04/26/2013 4:30 AM CDT Angie Lyn MD LAB BLOOD ORDERABLES Final Resu lt HISTORICAL RESULTS * Serum creatine kinase (CK) MB confirmation (04/26/2013 12:03 AM CDT) CK MB 1 0 - 5 ng/ml HISTORIC AL RESULTS Serum 04/26/2013 12:0 3 AM CDT us Angie Lyn MD LAB BLOOD ORDERABLES Final Resu lt Performing Organization Address [facility] Co de Phone Number HISTORICAL RESULTS * Discharge Laboratory Cumulative Report (04/26/2013 12:00 AM CDT) 04/26/2013 Narrative HISTORICAL RESULTS - 04/27/2013 2:25 AM CDT Patient No: [id number] ? [facility] Patient Name: TRESSA RODAS ? [facility] Healthcare Age: 58 YRS ?: 1955 ?Sex:F ?[address] )[phone] ?? Adm Dt: 04/25/2013 ?[place], [place] ??[address] Created: 04/27/2013 ??0225 ?? Pt. Type: I ? Discharge Dt: 04/26/2013 ? Pathologists: Emilee Cullen MD Admit Attend Dr: ASUNCION MEDINA MD ? BLOOD CELL COUNTS ?Collection Date: ?04/26/13 ? 04/25/13 ?Collection Time: ?0430 ? 1208 ? Ref Range: ?? Units: [4.00-10.50] /CMM ? WBC X 10^3 ?7.73 ? 8.09 [4.20-5.40] ??/CMM ? RBC X 10^6 ?4.43 ? 4.83 [12.0-16.0] ??G/DL ? HGB ? 13.4 ? 14.8 [37.0-47.0] ??% ?HCT ? 41.6 ? 45.0 [77.0-97.0] ??FL ? MCV ? 93.9 ? 93.2 [23.0-34.0] ??PG ? MCH ? 30.2 ? 30.6 [32.0-36.0] ??% ?MCHC ?32.2 ? 32.9 [11.5-14.5] ??% ?RDW ? 13.4 ? 13.5 [150-451] ?? /CMM ? PLT X 10^3 ? 268 ?280 ?BLOOD CELL DIFFERENTIAL ?Collection Date: ?04/26/13 ? 04/25/13 ?Collection Time: ?0430 ? 1208 ? Ref Range: ?? Units: [54.0-69.0] ??% ?NEUTROPHILS ? 42.9 L ? 59.0 [25.0-33.0] ??% ?LYMPHOCYTES ? 42.4 H ? 27.9 [1.0-13.0] ??% ?MONOCYTES ?9.1 ? 10.1 [0.0-10.0] ??% ?EOSINOPHILS ?4.7 ?2.3 [0.0-1.0] ?? % ?BASOPHILS ?0.6 ?0.5 ? /CMM ? A LYMPHOCYTE ? 3.3 ?2.3 [0.0-1.0] ?? % ?IMM GRAN % ? 0.3 ?0.2 [0.00-0.02] ??/CMM ? A IMM GRAN ?0.02 ? 0.02 [1.1-1.9] ?? /CMM ? A MONOCYTE ? 0.7 L ?0.8 L [1.4-6.5] ?? /CMM ? A NEUTROPHIL ? 3.3 ?4.8 [0.0-0.7] ?? /CMM ? A EOSINOPHIL ? 0.4 ?0.2 [0.0-0.2] ?? /CMM ? A BASOPHIL ? 0.1 ?0.0 Footnotes and Symbols: L = Low, H = High ?? CONTINUED ?Page: ?? 1 Patient No: [id number] ? [facility] Patient Name: TRESSA RODAS ? [facility] Healthcare Age: 58 YRS ?: 1955 ?Sex:F ?[address] )[id number] ?? Adm Dt: 04/25/2013 ?[place] ??[address] Created: 04/27/2013 ??0225 ?? Pt. Type: I ? Discharge Dt: 04/26/2013 ? Pathologists: Emilee Cullen MD Admit Attend Dr: ASUNCION MEDINA MD ? GENERAL CHEMISTRY ?Collection Date: ?04/26/13 ? 04/25/13 ?Collection Time: ?0430 ? 1208 ? Ref Range: ?? Units: [< ?100] ?? pg/ml ?BNP ?57 f [134-143] ?? MMOL/L ? SODIUM ? 138 ?137 [3.4-5.0] ?? MMOL/L ? POTASSIUM ?3.9 ?4.7 [99.0-108.0] MMOL/L ? CHLORIDE ? 105.0 ?104.0 [23.0-32.0] ??MMOL/L ? TOTAL CO2 ? 26.8 ? 27.0 ?? [7-14] ?MMOL/L ? ANION GAP ? 10 ? 11 ??[70-110] ?? MG/DL ?GLUCOSE FASTING ?119 H ?131 H [275-295] ?? MOSM/K ? CALCULATED OSMO ?278 [6.4-8.0] ?? G/DL ? TOTAL PROTEIN ? 7.6 [3.3-4.5] ?? G/DL ? ALBUMIN ? 4.0 [1.1-1.8] ?A/G RATIO ? 1.1 [8.6-9.8] ?? MG/DL ?CALCIUM ?8.0 L ?9.1 [0.0-1.1] ?? MG/DL ?BILI TOTAL ?0.3 ??[44-125] ?? U/L ?ALK PHOS ?106 ?? [5-40] ?U/L ?AST(SGOT) ?22 f ??[15-70] ?U/L ?ALT(SGPT) ?41 f [6.0-23.0] ??MG/DL ?BUN ? 17.0 ? 19.0 ??[10-20] ? B/C RATIO ? 20 ? 21 H Footnotes and Symbols: L = Low, H = High, f = Footnote BNP (06/05/08 -- Current) BNP REFERENCE RANGE <100 pg/ml AST(SGOT) (02/05/13 -- Current) AST ??- NOTE REFERENCE RANGE CHANGE ALT(SGPT) (03/18/13 -- Current) ?? CONTINUED ?Page: ?? 2 Patient No: [id number] ? [facility] Patient Name: TRESSA RODAS ? [facility] Healthcare Age: 58 YRS ?: 1955 ?Sex:F ?[address] )[phone] ?? Adm Dt: 04/25/2013 ?[place], [place] ??[address] Created: 04/27/2013 ??0225 ?? Pt. Type: I ? Discharge Dt: 04/26/2013 ? Pathologists: Emilee Cullen MD Admit Attend Dr: ASUNCION MEDINA MD ? GENERAL CHEMISTRY ?Collection Date: ?04/26/13 ? 04/25/13 ?Collection Time: ?0430 ? 1208 ? Ref Range: ?? Units: [0.60-1.30] ??MG/DL ?CREATININE ?0.84 f ? 0.92 f ?04/26/13 0430 eGFR: >70 ml/min/1.73sq.m if non -Vincentian. eGFR: >70 ml/min/1.73sq.m if -Vincentian. AVE GFR for 50-59 yr. age group: ??93 ml/min/1.73sq.m Calculated using MDRD Equation FOOTNOTE ADDED ON ?? 04/26/13 ?? AT 0542 BY 999 ?04/25/13 1208 eGFR:67 ml/min/1.73sq.m if non -Vincentian. eGFR: >70 ml/min/1.73sq.m if -Vincentian. AVE GFR for 50-59 yr. age group: ??93 ml/min/1.73sq.m Calculated using MDRD Equation FOOTNOTE ADDED ON ?? 04/25/13 ?? AT 1315 BY 999 [1.5-2.2] ?? MG/DL ?MAGNESIUM ? 2.2 Footnotes and Symbols: f = Footnote ?? CONTINUED ?Page: ?? 3 Patient No: [id number] ? [facility] Patient Name: TRESSA RODAS ? [facility] Healthcare Age: 58 YRS ?: 1955 ?Sex:F ?[address] )[id number] ?? Adm Dt: 04/25/2013 ?[place] ??[address] Created: 04/27/2013 ??0225 ?? Pt. Type: I ? Discharge Dt: 04/26/2013 ? Pathologists: Emilee Cullen MD Admit Attend Dr: ASUNCION MEDINA MD ? CARDIAC CHEMISTRY ?Collection Date: ?04/26/13 ? 04/25/13 ?Collection Time: ?0003 ? 1800 ? Ref Range: ?? Units: [0.00-0.10] ??NG/ML ?TROPONIN I ? <0.04 f ? 0.05 f ?? [0-5] ? NG/ML ?CKMB ? 1 ?1 ?Collection Date: ?/30/13 ?Collection Time: ?1208 ? Ref Range: ?? Units: [0.00-0.10] ??NG/ML ?TROPONIN I ? <0.04 f ?? [0-5] ? NG/ML ?CKMB ? 1 ?THYROID FUNCTION TESTS ?Collection Date: ?04/25/13 ?Collection Time: ?1800 ? Ref Range: ?? Units: [0.7-1.3] ?? NG/DL ?FREE T4 ?0.8 [0.35-4.80] ??uIU/ML ? TSH ? 1.13 Footnotes and Symbols: f = Footnote TROPONIN I (06/22/11 -- Current) NEGATIVE: ??0.00 - 0.10 NG/ML INDETERMINATE: ??0.11 - 0.50 NG/ML POSITIVE: ??GREATER THAN 0.50 NG/ML ?? CONTINUED ?Page: ?? 4 Patient No: [id number] ? [facility] Patient Name: TRESSA RODAS ? [facility] Healthcare Age: 58 YRS ?: 1955 ?Sex:F ?[address] )[id number] ?? Adm Dt: 04/25/2013 ?[place], [place] ??[address] Created: 04/27/2013 ??0225 ?? Pt. Type: I ? Discharge Dt: 04/26/2013 ? Pathologists: Emilee Cullen MD Admit Attend Dr: ASUNCION MEDINA MD ?COAGULATION ? Units: ?? PROTIME ?INR ?APTT PAT ? Low: ??[11.1-14.4] ? [< ?? 35.4] ? Ref Range: ? SECS ?SECS ? 04/25/13 1208 ?12.4 ? 0.96 f ? 25.8 ? MICRO - MISCELLANEOUS STAPHYLOCOCCUS SCREEN ? Collected: 04/25/13 1505 ? Received: 04/25/13 1517 Source: ANNETTE ? Started: 04/25/13 1636 ?Annette ? FINAL REPORT ?04/26/13 1349 ? NO METHICILLIN RESISTANT STAPH AUREUS CULTURED Footnotes and Symbols: f = Footnote INR (03/15/00 -- Current) [...] consistent with Food and Drug Administration recommendations. ?? END OF CHART ? Page: ?? 5 us Historical Provider LAB BLOOD ORDERABLES Jennifer l Result Performing Organization Address [facility] de Phone Number HISTORICAL RESULTS * Serum troponin I (04/25/2013 7:03 PM CDT) Pathologist [facility] Troponin I <0.04 0.00 - 0.10 ng/ml HISTORICAL RESULTS Serum 04/25/2013 7:03 PM CDT Narrative HISTORICAL RESULTS - 04/25/2013 11:07 PM CDT NEGATIVE: ??0.00 - 0.10 NG/ML INDETERMINATE: ??0.11 - 0.50 NG/ML POSITIVE: ??GREATER THAN 0.50 NG/ML Angie Lyn MD LAB BLOOD ORDERABLES Final Resu lt Performing Organization Address [facility] de Phone Number HISTORICAL RESULTS * Serum thyroid-stimulating hormone (TSH) (04/25/2013 6:00 PM CDT) Pathologist [facility] TSH 1.13 0.35 - 4.80 mcIUnits/ml HISTORICAL RESULTS Serum 04/25/2013 6:00 PM CDT Asuncion Medina MD LAB BLOOD ORDERABLES Final Result Performing Organization Address [facility] de Phone Number HISTORICAL RESULTS * Serum thyroxine (T4), free (04/25/2013 6:00 PM CDT) Free T4 0.8 0.7 - 1.3 ng/dl HISTORICAL RESULTS Serum 04/25/2013 6:00 PM CDT Asuncion Medina MD LAB BLOOD ORDERABLES Final Result Performing Organization Address [facility] Co de Phone Number HISTORICAL RESULTS * Serum creatine kinase (CK) MB confirmation (04/25/2013 6:00 PM CDT) CK MB 1 0 - 5 ng/ml HISTORIC AL RESULTS Serum 04/25/2013 6:00 PM CDT Angie Lyn MD LAB BLOOD ORDERABLES Final Resu lt Performing Organization Address [facility] de Phone Number HISTORICAL RESULTS * Serum troponin I (04/25/2013 1:00 PM CDT) Troponin I 0.05 0.00 - 0.10 ng/ml HISTORICAL RESULTS Serum 04/25/2013 1:00 PM CDT Narrative HISTORICAL RESULTS - 04/25/2013 1:47 PM CDT NEGATIVE: ??0.00 - 0.10 NG/ML INDETERMINATE: ??0.11 - 0.50 NG/ML POSITIVE: ??GREATER THAN 0.50 NG/ML Angie Lyn MD LAB BLOOD ORDERABLES Final Resu lt Performing Organization Address [facility] de Phone Number HISTORICAL RESULTS * Plasma partial thromboplastin time (PTT) (04/25/2013 12:08 PM CDT) APTT 25.8 -<35. seconds HISTOR ICAL RESULTS Plasma 04/25/2013 12:0 8 PM CDT Angie Lyn MD LAB BLOOD ORDERABLES Final Resu lt Performing Organization Address [facility] Co de Phone Number HISTORICAL RESULTS * Plasma prothrombin time (PT) (04/25/2013 12:08 PM CDT) Prothrombin time (PT) 12.4 11.1 - 14.4 seconds HISTORICAL RESULTS INR 0.96 HISTORICAL RESULTS Comment: RECOMMENDED RANGES FOR PROTIME [...] with Food and Drug Administration recommendations. Plasma 04/25/2013 12:0 8 PM CDT Angie Lyn MD LAB BLOOD ORDERABLES Final Resu Performing Organization Address [facility] de Phone Number HISTORICAL RESULTS * Serum creatine kinase (CK) MB confirmation (04/25/2013 12:08 PM CDT) CK MB 1 0 - 5 ng/ml HISTORIC AL RESULTS Serum 04/25/2013 12:0 8 PM CDT Angie Lyn MD LAB BLOOD ORDERABLES Final Resu lt Performing Organization Address [facility]/State/ZIP Co de Phone Number HISTORICAL RESULTS * Serum magnesium (04/25/2013 12:08 PM CDT) Magnesium 2.2 1.5 - 2.2 mg/dl HISTORICAL RESULTS Serum 04/25/2013 12:0 8 PM CDT Angie Lyn MD LAB BLOOD ORDERABLES Final Resu lt Performing Organization Address [facility] de Phone Number HISTORICAL RESULTS * Blood cell count (CBC) (04/25/2013 12:08 PM CDT) WBC 8.1 4.0 - 10.5 K/cumm HISTORICAL RESULTS RBC 4.83 4.20 - 5.40 M/cumm HISTORICAL RESULTS Hgb 14.8 12.0 - 16.0 g/dl HISTORICAL RESULTS Hct 45.0 37.0 - 47.0 % HISTORICAL RESULTS MCV 93.2 77.0 - 97.0 fl HISTORICAL RESULTS MCH 30.6 23.0 - 34.0 pg HISTORICAL RESULTS MCHC 32.9 32.0 - 36.0 g/dl HISTORICAL RESULTS Rdw 13.5 11.5 - 14.5 % HISTORICAL RESULTS Platelets 280 150 - 451 K/cumm HISTORICAL RESULTS MPV 9.7 7.4 - 10.4 fl HISTORICAL RESULTS Blood specimen (specimen) 04/25/2013 12:08 PM CDT Angie Lyn MD LAB BLOOD ORDERABLES Final Resu Performing Organization Address [facility] de Phone Number HISTORICAL RESULTS * (ABNORMAL) Blood WBC cell morphologic exam, auto (04/25/2013 12:08 PM CDT) Pathologist [facility] Lymphocytes 27.9 25.0 - 33.0 % HISTORICAL RESULTS Monos 10.1 1.0 - 13.0 % HISTORICAL RESULTS Neutrophils 59.0 54.0 - 69.0 % HISTORICAL RESULTS Eosinophils 2.3 0.0 - 10.0 % HISTORICAL RESULTS Basophils 0.5 0.0 - 1.0 % HISTORICAL RESULTS Immature granulocytes 0.2 0.0 - 1.0 % HISTORICAL RESULTS Lymphocytes, abs 2.3 1.2 - 3.4 K/cumm HISTORICAL RESULTS Monocytes, absolute 0.8(L) 1.1 - 1.9 K/cumm HISTORICAL RESULTS Neutrophils, abs 4.8 1.4 - 6.5 K/cumm HISTORICAL RESULTS Eosinophils, abs 0.2 0.0 - 0.7 cells/cumm HISTORICAL RESULTS Basophils, abs 0.0 0.0 - 0.2 K/cumm HISTORICAL RESULTS Immature granulocyte, abs 0.0 0.0 - 0.0 K/cumm HISTORICAL RESULTS Blood specimen (specimen) 04/25/2013 12:08 PM CDT us Angie Lyn MD LAB BLOOD ORDERABLES Final Resu lt HISTORICAL RESULTS * (ABNORMAL) Serum comprehensive metabolic panel (04/25/2013 12:08 PM CDT) BUN 19.0 6.0 - 23.0 mg/dl HISTORICAL RESULTS Sodium 137 134 - 143 mmol/L HISTORICAL RESULTS Potassium, sr 4.7 3.4 - 5.0 mmol/L HISTORICAL RESULTS Chloride 104 99 - 108 mmol/L HISTORICAL RESULTS CO2 27 23 - 32 mmol/L HISTORICAL RESULTS Glucose, fasting 131(H) 70 - 110 mg/dl HISTORICAL RESULTS Creatinine 0.92 0.60 - 1.30 mg/dl HISTORICAL RESULTS Comment: eGFR:67 ml/min/1.73sq.m if non -Vincentian. eGFR: >70 ml/min/1.73sq.m if -Vincentian. AVE GFR for 50-59 yr. age group: ??93 ml/min/1.73sq.m Calculated using MDRD Equation BUN/creat ratio 21(H) 10 - 20 HIST ORICAL RESULTS A. gap 11 7 - 14 mmol/L HISTORICAL RESULTS Protein, sr 7.6 6.4 - 8.0 g/dl HISTORICAL RESULTS Alb 4.0 3.3 - 4.5 g/dl HISTORICAL RESULTS Alb/glob ratio 1.1 1.1 - 1.8 HISTO RICAL RESULTS Calcium 9.1 8.6 - 9.8 mg/dl HISTORICAL RESULTS Bilirubin 0.3 0.0 - 1.1 mg/dl HISTORICAL RESULTS Alk phos 106 44 - 125 Units/L HISTORICAL RESULTS AST 22 5 - 40 Units/L HISTORICAL RESULTS Comment:AST - NOTE REFERENCE RANGE CHANGE ALT 41 15 - 70 Units/L HISTORICAL RESULTS Serum 04/25/2013 12:0 8 PM CDT Angie Lyn MD LAB BLOOD ORDERABLES Final Resu lt HISTORICAL RESULTS * XR Chest Portable (04/25/2013 12:05 PM CDT) Anatomical Region Laterality Modality Body N/A Radiographic Piedad ging 04/25/2013 12:0 5 PM CDT Narrative 04/29/2013 9:27 AM CDT XR Chest Portable ? [id number] ??Acc#: ??[id number] DATE OF EXAM: ??Apr 25 2013 (1205 HRS.) CLINICAL HISTORY: Dizziness, shakiness and weakness. ??Chest pain. RESULT: Erect AP portable chest demonstrates heart size normal for technique. Pulmonary vascularity is normal. ??No infiltrate, mass or pleural effusion is seen. ??Mediastinum, diaphragm and visualized bony structures appear normal. IMPRESSION: NORMAL CHEST. Interpreting Physician: ??DAVID MIRANDA M.D. ??Read on: ??Apr 25 2013 1:40P Transcribed by: ??VLR ??On: Apr 26 2013 ??7:45A Approved Electronically by: ??DAVID MIRANDA M.D. ??on: ??Sep ??2012 9:27A Ordering DR: ANGIE LYN Attending DR: ALLISON FONSECA Procedure Note Provider, MD Homero - 12/27/2016 XR Chest Portable [id number] Acc#: [id number] DATE OF EXAM: Apr 25 2013 (1205 HRS.) CLINICAL HISTORY: Dizziness, shakiness and weakness. Chest pain. RESULT: Erect AP portable chest demonstrates heart size normal for technique.Pulmonary vascularity is normal. No infiltrate, mass or pleural effusionis seen. Mediastinum, diaphragm and visualized bony structures appearnormal. IMPRESSION: NORMAL CHEST. Interpreting Physician: DAVID MIRANDA M.D. Read on: Apr 25 20131:40P Transcribed by: VLR On: Apr 26 2013 7:45A Approved Electronically by: DAVID MIRANDA M.D. on: Apr 29 20139:27A Ordering DR: ANGIE LYN Attending DR: ALLISON FONSECA us Historical Provider IMG XR PROCEDURES Final R esult * Blood B-type natriuretic peptide (BNP) (04/25/2013 7:08 AM CDT) BNP 57 -<100 pg/ml HISTORIC AL RESULTS Blood specimen (specimen) 04/25/2013 7:08 AM CDT Narrative HISTORICAL RESULTS - 04/25/2013 8:30 AM CDT BNP REFERENCE RANGE <100 pg/ml Angie Lyn MD LAB BLOOD ORDERABLES Final Resu lt Performing Organization Address City/[facility] Co de Phone Number HISTORICAL RESULTS * Serum troponin I (04/25/2013 7:08 AM CDT) Pathologist [facility] Troponin I <0.04 0.00 - 0.10 ng/ml HISTORICAL RESULTS Serum 04/25/2013 7:08 AM CDT Narrative HISTORICAL RESULTS - 04/25/2013 8:15 AM CDT NEGATIVE: ??0.00 - 0.10 NG/ML INDETERMINATE: ??0.11 - 0.50 NG/ML POSITIVE: ??GREATER THAN 0.50 NG/ML Angie Lyn MD LAB BLOOD ORDERABLES Final Resu lt Performing Organization Address [facility] Co de Phone Number HISTORICAL RESULTS * Microbiology Summary (04/25/2013 12:00 AM CDT) 04/25/2013 Narrative HISTORICAL RESULTS - 04/27/2013 2:28 AM CDT ? [facility] ?CLINICAL LABORATORIES ? MICROBIOLOGY REPORT PATIENT NAME: ??TRESSA RODAS ? MED RECORD#: ??[id number] BIRTHDATE: ??1955 ?? AGE: ??58 YRS SEX: F ?PATIENT#: ? [id number] ADMITTING DR: ??ASUNCION MEDINA MD ? ATTENDING DR: ??ASUNCION MEDINA MD ?ACCESSION#: ?? [id number] CREATED: ??04/27/13 ?? 0225 ? ADMIT DATE: ?? 04/25/13 ? MICRO - MISCELLANEOUS STAPHYLOCOCCUS SCREEN ? Collected: 04/25/13 1505 ? Received: 04/25/13 1517 Source: NARES ? Started: 04/25/13 1636 ?Nares ?04/26/13 1349 ? NO METHICILLIN RESISTANT STAPH AUREUS CULTURED ?? END OF CHART Historical Provider LAB MICROBIOLOGY - GENERA L ORDERABLES Final Result HISTORICAL RESULTS * ELECTROCARDIOGRAPHY (ECG) (04/25/2013) Narrative 04/25/2013 Ordered by an unspecified provider. Historical Provider ECG ORDERABLES Final Res ult * ELECTROCARDIOGRAPHY (ECG) (04/25/2013) Narrative 04/25/2013 Ordered by an unspecified provider. Historical Provider ECG ORDERABLES Final Res ult documented in this encounter Visit Diagnoses Diagnosis Atrial flutter (CMS/HCC) (HCC) Atrial flutter Anxiety state Anxiety state, unspecified Essential hypertension Unspecified essential hypertension Tobacco use disorder documented in this encounter
--- OUTSIDE RECORDS SUMMARY | 2024-08-30 19:00 | XMS_ITS | Encounter Summary ---
Author Organization [facility] Address [address] [place] [address] Care Team Providers Care Program Checker Name Role Phone Unavailable Primary Care Provider Unavailabl e Encounter Details Date Type Department Care Team ([facility] st Contact Info) Description 09/30/2013 6:30 AM ELECTRONEURODIAGNOSTIC TECHNICIAN - 09/30/2013 11:59 PM ELECTRONEURODIAGNOSTIC TECHNICIAN Hospital Encounter [facility] Dhiraj Cox MD [address] [id number] Coronary atherosclerosis; Pre-operative cardiovascular examination Social History Tobacco Use Types Packs/Day Years Used Date Smoking Tobacco: Never Assessed Comments Unknown Sex and Gender Information Value Date Recorded Sex Assigned at Not on file Legal Sex Female 3:00 AM ELECTRONEURODIAGNOSTIC TECHNICIAN Gender Identity Not on file Sexual Orientation Not on file documented as of this encounter Plan of Treatment Not on file documented as of this encounter Procedures Procedure Name Priority Date/Time Associated Diagnosis Comments SERUM BASIC METABOLIC PANEL Routine 09/30/2013 6:35 AM ELECTRONEURODIAGNOSTIC TECHNICIAN PLASMA PROTHROMBIN TIME (PT) Routine 09/30/2013 6:35 AM ELECTRONEURODIAGNOSTIC TECHNICIAN BLOOD WBC CELL MORPHOLOGIC EXAM, AUTO Routine 09/30/2013 6:35 AM ELECTRONEURODIAGNOSTIC TECHNICIAN BLOOD CELL COUNT (CBC) Routine 09/30/2013 6:35 AM ELECTRONEURODIAGNOSTIC TECHNICIAN DISCHARGE LABORATORY CUMULATIVE REPORT Routine 09/30/2013 12:00 AM ELECTRONEURODIAGNOSTIC TECHNICIAN documented in this encounter Results * Plasma prothrombin time (PT) (09/30/2013 6:35 AM ELECTRONEURODIAGNOSTIC TECHNICIAN) Pathologist [facility] [place] Prothrombin time (PT) 11.6 11.1 - 14.4 seconds HISTORICAL RESULTS INR 0.88 HISTORICAL RESULTS Comment: RECOMMENDED RANGES FOR PROTIME [...] with Food and Drug Administration recommendations. Plasma 09/30/2013 6:35 AM ELECTRONEURODIAGNOSTIC TECHNICIAN us Dhiraj Fierro MD LAB BLOOD ORDERABLES Final Resul t HISTORICAL RESULTS * (ABNORMAL) Serum basic metabolic panel (09/30/2013 6:35 AM ELECTRONEURODIAGNOSTIC TECHNICIAN) Pathologist [facility] [place] BUN 20.0 6.0 - 23.0 mg/dl HISTORICAL RESULTS Comment: BUN ? CORRECTED FROM ? 20.0 ON 09/30/13 AT 1324 BY [id number] FAXED TO [id number] 09/30/13 13:24 [id number] Sodium 136 134 - 143 mmol/L HISTORICAL RESULTS Potassium, sr 4.1 3.4 - 5.0 mmol/L HISTORICAL RESULTS Chloride 104 99 - 108 mmol/L HISTORICAL RESULTS CO2 27 23 - 32 mmol/L HISTORICAL RESULTS Glucose 108 70 - 199 mg/dl HISTORICAL RESULTS Comment: [...] glucose. New reference ranges implemented 07/07/2013. Creatinine 0.77 0.60 - 1.30 mg/dl HISTORICAL RESULTS Comment: eGFR: >70 ml/min/1.73sq.m if non -Filipino. eGFR: >70 ml/min/1.73sq.m if -Filipino. AVE GFR for 50-59 yr. age group: ??93 ml/min/1.73sq.m Calculated using MDRD Equation BUN/creat ratio 26(H) 10 - 20 HIST ORICAL RESULTS A. gap 9 7 - 14 mmol/L HISTORICAL RESULTS Osmo, calc 275 275 - 295 mOsm/kg HISTORICAL RESULTS Calcium 8.6 8.6 - 9.8 mg/dl HISTORICAL RESULTS Serum 09/30/2013 6:35 AM ELECTRONEURODIAGNOSTIC TECHNICIAN us Dhiraj Fierro MD LAB BLOOD ORDERABLES Final Resul t HISTORICAL RESULTS * Blood cell count (CBC) (09/30/2013 6:35 AM ELECTRONEURODIAGNOSTIC TECHNICIAN) WBC 9.3 4.0 - 10.5 K/cumm HISTORICAL RESULTS RBC 4.56 4.20 - 5.40 M/cumm HISTORICAL RESULTS Hgb 14.1 12.0 - 16.0 g/dl HISTORICAL RESULTS Hct 42.9 37.0 - 47.0 % HISTORICAL RESULTS MCV 94.1 77.0 - 97.0 fl HISTORICAL RESULTS MCH 30.9 23.0 - 34.0 pg HISTORICAL RESULTS MCHC 32.9 32.0 - 36.0 g/dl HISTORICAL RESULTS Rdw 13.0 11.5 - 14.5 % HISTORICAL RESULTS Platelets 292 150 - 451 K/cumm HISTORICAL RESULTS MPV 9.7 7.4 - 10.4 fl HISTORICAL RESULTS Blood specimen (specimen) 09/30/2013 6:35 AM ELECTRONEURODIAGNOSTIC TECHNICIAN Dhiraj Fierro MD LAB BLOOD ORDERABLES Final Resul t HISTORICAL RESULTS * (ABNORMAL) Blood WBC cell morphologic exam, auto (09/30/2013 6:35 AM ELECTRONEURODIAGNOSTIC TECHNICIAN) Lymphocytes 30.0 25.0 - 33.0 % HISTORICAL RESULTS Monos 10.0 1.0 - 13.0 % HISTORICAL RESULTS Neutrophils 54.2 54.0 - 69.0 % HISTORICAL RESULTS Eosinophils 4.9 0.0 - 10.0 % HISTORICAL RESULTS Basophils 0.6 0.0 - 1.0 % HISTORICAL RESULTS Immature granulocytes 0.3 0.0 - 1.0 % HISTORICAL RESULTS Lymphocytes, abs 2.8 1.2 - 3.4 K/cumm HISTORICAL RESULTS Monocytes, absolute 0.9(L) 1.1 - 1.9 K/cumm HISTORICAL RESULTS Neutrophils, abs 5.1 1.4 - 6.5 K/cumm HISTORICAL RESULTS Eosinophils, abs 0.5 0.0 - 0.7 cells/cumm HISTORICAL RESULTS Basophils, abs 0.1 0.0 - 0.2 K/cumm HISTORICAL RESULTS Immature granulocyte, abs 0.0(H) 0.0 - 0.0 K/cumm HISTORICAL RESULTS Blood specimen (specimen) 09/30/2013 6:35 AM ELECTRONEURODIAGNOSTIC TECHNICIAN Dhiraj Fierro MD LAB BLOOD ORDERABLES Final Resul t HISTORICAL RESULTS * Discharge Laboratory Cumulative Report (09/30/2013 12:00 AM ELECTRONEURODIAGNOSTIC TECHNICIAN) 09/30/2013 Narrative HISTORICAL RESULTS - 10/02/2013 12:27 AM ELECTRONEURODIAGNOSTIC TECHNICIAN Patient No: [id number] ? [facility] Patient Name: TRESSA RDOAS ? [facility] Age: 58 YRS ?: 1955 ?Sex:F ?[address] )[id number] ?? Adm Dt: 09/30/2013 ?[place], [place] ??[address] Created: 10/02/2013 ??0027 ?? Pt. Type: R ? Discharge Dt: 09/30/2013 ? Pathologists: Emilee Cullen MD Admit Attend Dr: DHIRAJ FIERRO MD ? BLOOD CELL COUNTS ?Collection Date: ?09/30/13 ?Collection Time: ?0635 ? Ref Range: ?? Units: [4.00-10.50] /CMM ? WBC X 10^3 ?9.33 [4.20-5.40] ??/CMM ? RBC X 10^6 ?4.56 [12.0-16.0] ??G/DL ? HGB ? 14.1 [37.0-47.0] ??% ?HCT ? 42.9 [77.0-97.0] ??FL ? MCV ? 94.1 [23.0-34.0] ??PG ? MCH ? 30.9 [32.0-36.0] ??% ?MCHC ?32.9 [11.5-14.5] ??% ?RDW ? 13.0 [150-451] ?? /CMM ? PLT X 10^3 ? 292 ?BLOOD CELL DIFFERENTIAL ?Collection Date: ?09/30/13 ?Collection Time: ?0635 ? Ref Range: ?? Units: [54.0-69.0] ??% ?NEUTROPHILS ? 54.2 [25.0-33.0] ??% ?LYMPHOCYTES ? 30.0 [1.0-13.0] ??% ?MONOCYTES ? 10.0 [0.0-10.0] ??% ?EOSINOPHILS ?4.9 [0.0-1.0] ?? % ?BASOPHILS ?0.6 ? /CMM ? A LYMPHOCYTE ? 2.8 [0.0-1.0] ?? % ?IMM GRAN % ? 0.3 [0.00-0.02] ??/CMM ? A IMM GRAN ?0.03 H [1.1-1.9] ?? /CMM ? A MONOCYTE ? 0.9 L [1.4-6.5] ?? /CMM ? A NEUTROPHIL ? 5.1 [0.0-0.7] ?? /CMM ? A EOSINOPHIL ? 0.5 [0.0-0.2] ?? /CMM ? A BASOPHIL ? 0.1 Footnotes and Symbols: L = Low, H = High ?? CONTINUED ?Page: ?? 1 Patient No: [id number] ? [facility] Patient Name: ADRIANNATRESSA ? [facility] Age: 58 YRS ?: 1955 ?Sex:F ?[address] )[phone] ?? Adm Dt: 09/30/2013 ?[place], [place] ??[address] Created: 10/02/2013 ??0027 ?? Pt. Type: R ? Discharge Dt: 09/30/2013 ? Pathologists: Emilee Cullen MD Admit Dr. Toro Dr: DHIRAJ FIERRO MD ? GENERAL CHEMISTRY ?Collection Date: ?09/30/13 ?Collection Time: ?0635 ? Ref Range: ?? Units: [134-143] ?? MMOL/L ? SODIUM ? 136 [3.4-5.0] ?? MMOL/L ? POTASSIUM ?4.1 [99.0-108.0] MMOL/L ? CHLORIDE ? 104.0 [23.0-32.0] ??MMOL/L ? TOTAL CO2 ? 26.9 ?? [7-14] ?MMOL/L ? ANION GAP ?9 ??[70-199] ?? MG/DL ?GLUCOSE ?108 f [275-295] ?? MOSM/K ? CALCULATED OSMO ?275 [8.6-9.8] ?? MG/DL ?CALCIUM ?8.6 [6.0-23.0] ??MG/DL ?BUN ? 20.0 f ?09/30/13 0635 FAXED TO [id number] 09/30/13 13:24 [id number] FOOTNOTE ADDED ON ?? 09/30/13 ?? AT 1324 BY [id number] ??[10-20] ? B/C RATIO ? 26 H [0.60-1.30] ??MG/DL ?CREATININE ?0.77 f ?09/30/13 0635 eGFR: >70 ml/min/1.73sq.m if non -Filipino. eGFR: >70 ml/min/1.73sq.m if -Filipino. AVE GFR for 50-59 yr. age group: ??93 ml/min/1.73sq.m Calculated using MDRD Equation FOOTNOTE ADDED ON ?? 09/30/13 ?? AT 0747 BY 999 Footnotes and Symbols: H = High, f = Footnote GLUCOSE (07/29/13 -- Current) Note:The glucose is assumed non fasting Fastin-99 mg/dl Random: 70-199 mg/dl Either a fasting glucose > 126 mg/dL or a random glucose > 200 mg/dL plus symptoms is diagnostic of diabetes when confirmed on another day. Fasting values > 100 mg/dl but < 125 mg/dL are diagnostic of impaired fasting glucose. New reference ranges implemented 07/07/2013. ?? CONTINUED ?Page: ?? 2 Patient No: [id number] ? [facility] Patient Name: TRESSA RODAS ? [facility] Age: 58 YRS ?: 1955 ?Sex:F ?[address] )[phone] ?? Adm Dt: 09/30/2013 ?[place], [place] ??[address] Created: 10/02/2013 ??0027 ?? Pt. Type: R ? Discharge Dt: 09/30/2013 ? Pathologists: Emilee Cullen MD Admit Dr. Toro Dr: DHIRAJ FIERRO MD ?COAGULATION ? Units: ?? PROTIME ?INR ? Low: ??[11.1-14.4] ? Ref Range: ? SECS ? 09/30/13 0635 ?11.6 ? 0.88 f Footnotes and Symbols: f = Footnote INR [...] ?? END OF CHART ? Page: ?? 3 us Historical Provider LAB BLOOD ORDERABLES Jennifer doran Result HISTORICAL RESULTS documented in this encounter Visit Diagnoses Diagnosis Coronary atherosclerosis Coronary atherosclerosis of unspecified type of vessel, [place] or graft Pre-operative cardiovascular examination documented in this encounter
== END 2024-08-23 15:37 | disposition home or self-care (01) ==
PROVIDERS: Emergency Provider Physician Assistant; PCP Physician Assistant
DX: R79.1 Abnormal coagulation profile (principal); I48.91 Unspecified atrial fibrillation; I50.20 Unspecified systolic (congestive) heart failure; I11.0 Hypertensive heart disease with heart failure; I25.10 Atherosclerotic heart disease of native coronary artery without angina pectoris; I77.9 Disorder of arteries and arterioles, unspecified; E11.9 Type 2 diabetes mellitus without complications; E78.5 Hyperlipidemia, unspecified; E03.9 Hypothyroidism, unspecified; F41.8 Other specified anxiety disorders; Z95.1 Presence of aortocoronary bypass graft; Z95.5 Presence of coronary angioplasty implant and graft; Z87.891 Personal history of nicotine dependence; Z79.84 Long term (current) use of oral hypoglycemic drugs; Z79.899 Other long term (current) drug therapy; Z79.82 Long term (current) use of aspirin; Z79.01 Long term (current) use of anticoagulants
CPT/HCPCS: 99281

== ENCOUNTER 2024-10-03 16:51 | Outpatient (RCR) | payer MEDICARE, SELFPAY ==
[2024-08-22 15:29] LABS: Prothrombin Time 61.6 Seconds (11.1-14.7)
[2024-08-22 17:17] LABS: INR 7.2
[2024-10-03 17:36] LABS: INR 3.3; Prothrombin Time 34.5 Seconds (11.1-14.7)
== END 2024-11-20 23:59 | disposition home or self-care (01) ==
LOC: ANHLAB 16:51
PROVIDERS: PCP Physician Assistant; Visit Provider Nurse Practitioner Adult Health
DX: I48.19 Other persistent atrial fibrillation (principal); Z79.01 Long term (current) use of anticoagulants
CPT/HCPCS: 36415; 85610

== ENCOUNTER 2024-11-21 15:19 | Outpatient (RCR) | payer MEDICARE, SELFPAY ==
[2024-11-21 16:24] LABS: INR 2.2; Prothrombin Time 25.4 Seconds (11.1-14.7)
== END 2025-02-19 23:59 | disposition home or self-care (01) ==
LOC: ANHLAB 15:19
PROVIDERS: PCP Physician Assistant; Visit Provider Nurse Practitioner Adult Health
DX: Z51.81 Encounter for therapeutic drug level monitoring (principal); I48.19 Other persistent atrial fibrillation; Z79.01 Long term (current) use of anticoagulants
CPT/HCPCS: 36415; 85610